=== PATIENT | male | born 1955 | race Caucasian/White ===

== ENCOUNTER → 2016-08-08 | Outpatient (CLI) | payer MEDICARE ==
--- NOTE | 2016-08-09 11:05 | XR ---
Bilateral hips, left femur HISTORY: Hip pain and femur pain 2 views of the hips are submitted on 4 images with 2 views of the left femur on 4 images Correlation to left hip 17 May 2011 Remodeling, marginal spurring and joint space loss present in the right hip. Alignment is maintained. Bone mineralization within normal limits. Surgical clips present in the right groin. Left hip shows postoperative change status post left hip arthroplasty. Iliac stent is noted on the left. No evidenc e of subsidence, arthroplasty loosening is not evident, appearance is stable accounting for differenc es in technique. No evident fracture or dislocation. Left femur is otherwise within normal limits. Mi ld joint space loss in the medial knee compartment. IMPRESSION: No acute fracture or dislocation. Osteoarthritis.
== END | disposition home or self-care (01) ==
LOC: RADXRYALE 15:33
PROVIDERS: ATTEND Nurse Practitioner Family
DX: M16.0 Bilateral primary osteoarthritis of hip (principal)
CPT/HCPCS: 73521

== ENCOUNTER 2017-11-15 20:26 | Emergency (ER) | payer MEDICARE ==
[2017-11-15] MEDS ORDERED: SODIUM CHLORIDE 0.9% 1,000 ML IV STA (21:45)
[2017-11-15] MEDS ORDERED: SODIUM CHLORIDE 0.9% 500 ML IV STA (21:45)
--- NOTE | 2017-11-15 21:48 | ED ---
Male Urogenital HPI - General Chief complaint: Urogenital Stated complaint: Male Time Seen by Provider: 11/15/17 21:20 Source: patient, family, RN notes reviewed Mode of arrival: ambulatory Limitations: no limitations - History of Present Illness Initial comments: This is a 62-year-old male who presents with complaints of hematuria today states he has some dysuria with it initially started 2 days ago he was started on Cipro yesterday and one dose so far. Today he had a lot of bleeding gets urgency. Complaints of right groin pain and suprapubic area discomfort. He has no prior history kidney stones or bladder issues no risk factors for STDs. He is on Coumadin he was told was decreased dose down to 3 mg after starting Cipro. No fevers chills or sweats no other complaints at this time MD Complaint: other - Related Data Home Medications Medication Instructions Recorded Confirmed Atorvastatin [Lipitor] 80 mg PO HS 01/09/14 11/15/17 Celecoxib [CeleBREX] 200 mg PO QAM 01/09/14 11/15/17 Losartan [Cozaar] 50 mg PO QAM 01/09/14 11/15/17 Pregabalin [Lyrica] 300 mg PO BID 01/09/14 11/15/17 Topiramate [Topamax] 25 mg PO BID 01/09/14 11/15/17 Warfarin Sodium [Coumadin] 3 mg PO HS 01/09/14 11/15/17 metFORMIN HCL [Glucophage] 500 mg PO BID 01/09/14 11/15/17 oxyCODONE HCL/ACETAMINOPHEN 1 tab PO Q6HR PRN 01/09/14 11/15/17 [Percocet 10-325 mg] Ciprofloxacin HCl [Cipro] 250 mg PO BID 11/15/17 11/15/17 Colace 50mg 50 mg PO DAILY 11/15/17 11/15/17 Fluticasone/Umeclidin/Vilanter 1 puff INHALATION RT-DAILY 11/15/17 11/15/17 [Trelegy Ellipta 100-62.5-25] Insulin Aspart [NovoLOG See Protocol SQ AC-BRKFST 11/15/17 11/15/17 (formulary)] Insulin Degludec [Tresiba 68 unit SQ HS 11/15/17 11/15/17 Flextouch U-200] Lisinopril [Zestril] 20 mg PO DAILY 11/15/17 11/15/17 Morphine Sulfate [Ms Contin] 30 mg PO Q12H 11/15/17 11/15/17 Multivitamins, Thera [Multivitamin 1 tab PO DAILY 11/15/17 11/15/17 (formulary)] Nortriptyline [Pamelor] 50 mg PO HS 11/15/17 11/15/17 Omeprazole [PriLOSEC] 20 mg PO DAILY 11/15/17 11/15/17 Previous Rx's Medication Instructions Recorded Phenazopyridine HCl [Pyridium] 100 mg PO TID #10 tab 11/15/17 Allergies Allergy/AdvReac Type Severity Reaction Status Date / Time No Known Allergies Allergy Verified 11/15/17 21:54 Review of Systems ROS Statement: Those systems with pertinent positive or pertinent negative responses have been documented in the HPI. ROS Other: All systems not noted in ROS Statement are negative. Past Medical History Past Medical History: Asthma, COPD, CVA/TIA, Diabetes Mellitus, Deep Vein Thrombosis (DVT), GERD/Reflux, Hyperlipidemia, Hypertension, Neurologic Disorder , Osteoarthritis (OA), Pneumonia, Pulmonary Embolus (PE) Additional Past Medical History / Comment(s): MIGRAINES. " ANITICOAGULANT LUPUS ". PNEUMOTHRORAX. PERIPHERAL EDEMA. History of Any Multi-Drug Resistant Organisms: None Reported Past Surgical History: Adenoidectomy, Appendectomy, Tonsillectomy Additional Past Surgical History / Comment(s): HAILE FILTER . VEIN STRIPPING. STENTS IN "PELVIC AREA" NOVEMBER 2004. Past Anesthesia/Blood Transfusion Reactions: No Reported Reaction Smoking Status: Current every day smoker General Exam - General Exam Comments Initial Comments: This is a well-developed well-nourished awake alert oriented times 3 male Limitations: no limitations General appearance: alert, in no apparent distress Head exam: Present: atraumatic, normocephalic, normal inspection Eye exam: Present: normal appearance, PERRL, EOMI. Absent: scleral icterus, conjunctival injection, periorbital swelling ENT exam: Present: normal exam, mucous membranes moist Neck exam: Present: normal inspection. Absent: tenderness, meningismus, lymphadenopathy Respiratory exam: Present: normal lung sounds bilaterally. Absent: respiratory distress, wheezes, rales, rhonchi, stridor Cardiovascular Exam: Present: regular rate, normal rhythm, normal heart sounds. Absent: systolic murmur, diastolic murmur, rubs, gallop, clicks GI/Abdominal exam: Present: soft, tenderness (Mild suprapubic tenderness to palpation no guarding no masses or bruits), normal bowel sounds. Absent: distended, guarding, rebound, rigid Rectal exam: Present: deferred exam: Present: other (Bloody urine noted in the patient's underwear he did have a pad.). Absent: testicular tenderness Extremities exam: Present: full ROM, normal capillary refill, other (Stasis dermatitis). Absent: tenderness, pedal edema, joint swelling, calf tenderness Back exam: Present: normal inspection Neurological exam: Present: alert, oriented X3, CN II-XII intact Psychiatric exam: Present: normal affect, normal mood Skin exam: Present: warm, dry, intact, normal color. Absent: rash Course Vital Signs 11/15/17 11/15/17 20:33 22:13 Temperature 97.6 F 98.2 F Pulse Rate 88 75 Respiratory 24 20 Rate Blood Pressure 146/89 131/73 O2 Sat by Pulse 98 97 Oximetry Medical Decision Making - Medical Decision Making I did discuss findings the patient has . Patient be discharged he has seen urology in the past she will follow-up he will continue with his antibiotic is a follow-up with his doctor tomorrow as planned fluids will be continued he will go on a trial Pyridium as he does have some dysuria with this. - Lab Data Result diagrams: 11/15/17 21:49 11/15/17 21:49 Lab Results 11/15/17 11/15/17 11/15/17 Range/Units 21:49 21:49 21:49 WBC 12.2 H (3.8-10.6) k/uL RBC 4.67 (4.30-5.90) m/uL Hgb 14.5 (13.0-17.5) gm/dL Hct 43.6 (39.0-53.0) % MCV 93.5 (80.0-100.0) fL MCH 31.2 (25.0-35.0) pg MCHC 33.3 (31.0-37.0) g/dL RDW 14.2 (11.5-15.5) % Plt Count 202 (150-450) k/uL Neutrophils % 73 % Lymphocytes % 19 % Monocytes % 5 % Eosinophils % 2 % Basophils % 0 % Neutrophils # 8.9 H (1.3-7.7) k/uL Lymphocytes # 2.3 (1.0-4.8) k/uL Monocytes # 0.6 (0-1.0) k/uL Eosinophils # 0.2 (0-0.7) k/uL Basophils # 0.0 (0-0.2) k/uL PT 16.0 H (9.0-12.0) sec INR 1.7 H (<1.2) Sodium 141 (137-145) mmol/L Potassium 4.2 (3.5-5.1) mmol/L Chloride 106 (98-107) mmol/L Carbon Dioxide 24 (22-30) mmol/L Anion Gap 11 mmol/L BUN 23 H (9-20) mg/dL Creatinine 0.78 (0.66-1.25) mg/dL Est GFR (CKD-EPI)AfAm >90 (>60 ml/min/1.73 sqM) Est GFR (CKD-EPI)NonAf >90 (>60 ml/min/1.73 sqM) Glucose 156 H (74-99) mg/dL Calcium 8.6 (8.4-10.2) mg/dL Magnesium 2.0 (1.6-2.3) mg/dL Total Bilirubin 0.5 (0.2-1.3) mg/dL AST 13 L (17-59) U/L ALT 20 L (21-72) U/L Alkaline Phosphatase 91 (38-126) U/L Total Protein 6.1 L (6.3-8.2) g/dL Albumin 3.4 L (3.5-5.0) g/dL Urine Color Urine Appearance (Clear) Urine pH (5.0-8.0) Ur Specific [place] (1.001-1.035) Urine Protein (Negative) Urine Glucose (UA) (Negative) Urine Ketones (Negative) Urine Blood (Negative) Urine Nitrite (Negative) Urine Bilirubin (Negative) Urine Urobilinogen (<2.0) mg/dL Ur Leukocyte Esterase (Negative) Urine RBC (0-5) /hpf Urine WBC (0-5) /hpf 11/15/17 Range/Units 22:29 WBC (3.8-10.6) k/uL RBC (4.30-5.90) m/uL Hgb (13.0-17.5) gm/dL Hct (39.0-53.0) % MCV (80.0-100.0) fL MCH (25.0-35.0) pg MCHC (31.0-37.0) g/dL RDW (11.5-15.5) % Plt Count (150-450) k/uL Neutrophils % % Lymphocytes % % Monocytes % % Eosinophils % % Basophils % % Neutrophils # (1.3-7.7) k/uL Lymphocytes # (1.0-4.8) k/uL Monocytes # (0-1.0) k/uL Eosinophils # (0-0.7) k/uL Basophils # (0-0.2) k/uL PT (9.0-12.0) sec INR (<1.2) Sodium (137-145) mmol/L Potassium (3.5-5.1) mmol/L Chloride (98-107) mmol/L Carbon Dioxide (22-30) mmol/L Anion Gap mmol/L BUN (9-20) mg/dL Creatinine (0.66-1.25) mg/dL Est GFR (CKD-EPI)AfAm (>60 ml/min/1.73 sqM) Est GFR (CKD-EPI)NonAf (>60 ml/min/1.73 sqM) Glucose (74-99) mg/dL Calcium (8.4-10.2) mg/dL Magnesium (1.6-2.3) mg/dL Total Bilirubin (0.2-1.3) mg/dL AST (17-59) U/L ALT (21-72) U/L Alkaline Phosphatase (38-126) U/L Total Protein (6.3-8.2) g/dL Albumin (3.5-5.0) g/dL Urine Color Light Red Urine Appearance Clear (Clear) Urine pH 6.5 (5.0-8.0) Ur Specific [place] 1.021 (1.001-1.035) Urine Protein 1+ H (Negative) Urine Glucose (UA) Negative (Negative) Urine Ketones Negative (Negative) Urine Blood Large H (Negative) Urine Nitrite Negative (Negative) Urine Bilirubin Negative (Negative) Urine Urobilinogen 3.0 (<2.0) mg/dL Ur Leukocyte Esterase Small H (Negative) Urine RBC >182 H (0-5) /hpf Urine WBC 8 H (0-5) /hpf - Radiology Data Radiology results: report reviewed (I did review the imaging and report no evidence of masses or kidney stones), image reviewed Disposition Clinical Impression: Hematuria, Dysuria, Urinary tract infection Disposition: HOME SELF-CARE Condition: Good Instructions: Urinary Tract Infection in Men (ED), Hematuria (ED) Additional Instructions: Keep your follow-up appointment tomorrow. A trial of Pyridium for the painful urination. Prescriptions: Phenazopyridine HCl [Pyridium] 100 mg PO TID #10 tab Is patient prescribed a controlled substance at d/c from ED?: No Referrals: Kristin Emery DO [Primary Care Provider] - 1-2 days
[2017-11-15] MEDS ORDERED: ACETAMINOPHEN TAB 500 MG TAB PO STA (21:49)
[2017-11-15 21:58] LABS: Basophils % (A) 0 %; Eosinophils # (A) 0.2 k/uL (0-0.7); Eosinophils % (A) 2 %; HCT 43.6 % (39.0-53.0); HGB 14.5 gm/dL (13.0-17.5); Lymphocytes # (A) 2.3 k/uL (1.0-4.8); Lymphocytes % (A) 19 %; MCH 31.2 pg (25.0-35.0); MCHC 33.3 g/dL (31.0-37.0); MCV 93.5 fL (80.0-100.0); Mean Platelet Volume 8.3; Monocytes # (A) 0.6 k/uL (0-1.0); Monocytes % (A) 5 %; Neutrophils # (A) 8.9 k/uL (1.3-7.7); Neutrophils % (A) 73 %; Platelet Count 202 k/uL (150-450); RBC 4.67 m/uL (4.30-5.90); RDW 14.2 % (11.5-15.5); WBC 12.2 k/uL (3.8-10.6)
[2017-11-15 22:12] LABS: ALT 20 U/L (21-72); AST 13 U/L (17-59); Albumin 3.4 g/dL (3.5-5.0); Alkaline Phosphatase 91 U/L (38-126); Anion Gap 11 mmol/L; Blood Urea Nitrogen 23 mg/dL (9-20); Calcium 8.6 mg/dL (8.4-10.2); Carbon Dioxide 24 mmol/L (22-30); Chloride 106 mmol/L (98-107); Glucose 156 mg/dL (74-99); Potassium 4.2 mmol/L (3.5-5.1); Sodium 141 mmol/L (137-145); Total Bilirubin 0.5 mg/dL (0.2-1.3); Total Protein 6.1 g/dL (6.3-8.2)
[2017-11-15 22:14] VITALS: RESP 20
[2017-11-15 22:14] LABS: INR 1.7 (<1.2)
--- NOTE | 2017-11-15 22:35 | CT ---
EXAMINATION TYPE: CT abdomen pelvis wo con DATE OF EXAM: 11/15/2017 COMPARISON: NONE HISTORY: Gross hematuria. Recent UTI diagnosis. CT DLP: 2223.4 mGycm Automated exposure control for dose reduction was used. TECHNIQUE: Helical acquisition of images was performed from the lung bases through the pelvis. FINDINGS: There are some emphysematous changes at the lung bases. There is reticular infiltrate at the lung bas es. There is no pleural effusion. There is no pericardial effusion. Liver shows no focal defect. There is probably a 1 cm cholesterol gallstone at the tip of the gallbla dder. Spleen and pancreas appear normal. Bile ducts are not dilated. There is no adrenal mass. Kidneys have normal size and contour. There is no hydronephrosis. There is no retroperitoneal adenopathy. Abdominal aorta is atheromatous. There is no hydronephrosis. There is no evidence of a renal mass. There is inferior vena cava filter noted. There is iliac artery bypass graft on the left side. I see no intestinal wall thickening. There are n o dilated loops. There is a left hip prosthesis. Bladder distends smoothly. There is no evidence of a pelvic mass. Appendix is not definitely seen. There is no sign of appendicitis. I see no bony destru ctive process. There is no ascites. There is no sign of free air. There are spondylotic changes in th e lumbar spine. IMPRESSION: ATHEROSCLEROTIC VASCULAR DISEASE. NO EVIDENCE OF RENAL STONE OR OBSTRUCTION. I DO NOT SEE A CAUSE FOR HEMATURIA. EMPHYSEMA AND PULMONARY FIBROTIC CHANGES.
[2017-11-15 22:41] LABS: Appearance,Urine Clear (Clear); Bilirubin,Urine Negative (Negative); Blood,Urine Large (Negative); Color,Urine Light Red; Glucose,Urine (UA) Negative (Negative); Ketones,Urine Negative (Negative); Leukocyte Esterase,Urine Small (Negative); Nitrite,Urine Negative (Negative); PH, Urine 6.5 (5.0-8.0); Protein,Urine 1+ (Negative); RBC,Urine >182 /hpf (0-5); Specific Gravity,Urine 1.021 (1.001-1.035); WBC,Urine 8 /hpf (0-5)
[2017-11-15] MEDS ORDERED: PHENAZOPYRIDINE 200 MG TAB PO STA (23:14)
[2017-11-15 23:44] VITALS: BP 141/64; PULSE 69; TEMP 97.9
== END 2017-11-15 23:44 | disposition home or self-care (01) ==
LOC: EC 20:26
DX: N39.0 Urinary tract infection, site not specified (principal); J44.9 Chronic obstructive pulmonary disease, unspecified; K21.9 Gastro-esophageal reflux disease without esophagitis; E78.5 Hyperlipidemia, unspecified; I10 Essential (primary) hypertension; M19.90 Unspecified osteoarthritis, unspecified site; G43.909 Migraine, unspecified, not intractable, without status migrainosus; F17.200 Nicotine dependence, unspecified, uncomplicated; Z79.4 Long term (current) use of insulin; Z79.891 Long term (current) use of opiate analgesic; Z79.899 Other long term (current) drug therapy
CPT/HCPCS: 36415; 74176; 80053; 81001; 83735; 85025; 85610; 96360; 99284

== ENCOUNTER 2018-05-10 21:11 | Observation (INO) | payer MEDICARE ==
--- NOTE | 2018-05-10 21:16 | ED ---
SOB HPI - General Stated Complaint: ARACELIS Time Seen by Provider: 05/10/18 21:15 - History of Present Illness Initial Comments: Checo is a 63-year-old obese male with extensive past medical history most concerning for COPD and peripheral vascular disease. Patient presents the ED today for evaluation of chest discomfort and difficulty breathing. Patient reports he felt well throughout the day today, he states that this evening he began to feel that he couldn't catch his breath and pressure on his chest. He denies any palpitations or diaphoresis with this. Patient reports that while at home he began to feel more short of breath, he did breathing treatment with only minimal improvement in his symptoms. He then told his that he was having tightness in his chest and trouble breathing, she called the ambulance to get his wishes because she was worried about him. EMS arrived, the patient was tachypneic having trouble breathing and complaining of chest pressure. He was treated with 2 additional breathing treatments as well as IV Solu-Medrol in route to the hospital. Upon arrival patient reports that his tightness around his chest and trouble breathing has resolved completely. Patient does report a history of COPD, he does still smoke cigarettes. He denies any cardiac history though he does have a history of peripheral vascular disease requiring stenting in his femoral arteries, as well as a history of DVTs , CVA and TIA in the past. Patient also incidentally reports that on Monday he was walking outside when he injured his leg on a piece of angle iron. He reports that his has been cleansing the wound for him. Patient has no sensation in his legs and complains of no pain. He expresses concern that he has not had a tetanus shot in over 10 years. Request a tetanus vaccination today. - Related Data Home Medications Medication Instructions Recorded Confirmed Atorvastatin [Lipitor] 80 mg PO HS 01/09/14 05/10/18 Celecoxib [CeleBREX] 200 mg PO QAM 01/09/14 05/10/18 Losartan [Cozaar] 50 mg PO QAM 01/09/14 05/10/18 Pregabalin [Lyrica] 300 mg PO BID 01/09/14 05/10/18 Topiramate [Topamax] 25 mg PO BID 01/09/14 05/10/18 Warfarin Sodium [Coumadin] 6 mg PO [id number] 01/09/14 05/10/18 metFORMIN HCL [Glucophage] 500 mg PO BID 01/09/14 05/10/18 oxyCODONE HCL/ACETAMINOPHEN 1 tab PO Q6HR PRN 01/09/14 05/10/18 [Percocet 10-325 mg] Insulin Aspart [NovoLOG See Protocol SQ AC-BRKFST 11/15/17 05/10/18 (formulary)] Insulin Degludec [Tresiba 65 unit SQ HS 11/15/17 05/10/18 Flextouch U-200] Lisinopril [Zestril] 20 mg PO DAILY 11/15/17 05/10/18 Morphine Sulfate [Ms Contin] 30 mg PO TID 11/15/17 05/10/18 Multivitamins, Thera [Multivitamin 1 tab PO DAILY 11/15/17 05/10/18 (formulary)] Nortriptyline [Pamelor] 50 mg PO HS 11/15/17 05/10/18 Inhaler Unknown 1 puff INHALATION RT-DAILY 05/10/18 05/10/18 Warfarin Sodium 9 mg PO AQUINO 05/10/18 05/10/18 Previous Rx's Medication Instructions Recorded Phenazopyridine HCl [Pyridium] 100 mg PO TID #10 tab 11/15/17 Allergies Allergy/AdvReac Type Severity Reaction Status Date / Time No Known Allergies Allergy Verified 05/10/18 21:33 Review of Systems ROS Statement: Those systems with pertinent positive or pertinent negative responses have been documented in the HPI. ROS Other: All systems not noted in ROS Statement are negative. Constitutional: Denies: fever ENT: Denies: throat pain Respiratory: Reports: cough, dyspnea Cardiovascular: Reports: chest pain, dyspnea on exertion, edema Endocrine: Denies: fatigue Gastrointestinal: Denies: abdominal pain, nausea, vomiting Genitourinary: Denies: dysuria Musculoskeletal: Reports: back pain (chronic) Skin: Reports: change in color (bilateral lower extremity - chronic), other ( 2cm laceration left lateral calf) Neurological: Denies: headache, weakness Psychiatric: Denies: anxiety, depression Hematological/Lymphatic: Denies: easy bleeding Past Medical History Past Medical History: Asthma, COPD, CVA/TIA, Diabetes Mellitus, Deep Vein Thrombosis (DVT), GERD/Reflux, Hyperlipidemia, Hypertension, Neurologic Disorder , Osteoarthritis (OA), Pneumonia, Pulmonary Embolus (PE) Additional Past Medical History / Comment(s): MIGRAINES. " ANITICOAGULANT LUPUS ". PNEUMOTHRORAX. PERIPHERAL EDEMA. History of Any Multi-Drug Resistant Organisms: None Reported Past Surgical History: Adenoidectomy, Appendectomy, Tonsillectomy Additional Past Surgical History / Comment(s): HAILE FILTER . VEIN STRIPPING. STENTS IN "PELVIC AREA" NOVEMBER 2004. Past Anesthesia/Blood Transfusion Reactions: No Reported Reaction Smoking Status: Current every day smoker General Exam - General Exam Comments Initial Comments: GENERAL: Obese 63-year-old male, appears older than stated age Tachypneic, in mild respiratory distress HENT: Normocephalic, Atraumatic. Neck is soft and supple. No significant lymphadenopathy is noted. Oropharynx is clear. Moist mucous membranes. Neck has full range of motion without eliciting any pain. EYES: The sclera were anicteric and conjunctiva were pink and moist. Extraocular movements were intact and pupils were equal round and reactive to light. Eyelids were unremarkable. PULMONARY: Tachypnea, mild expiratory wheezing, crackles at bilateral bases CARDIOVASCULAR: There is a regular rate and rhythm without any murmurs gallops or rubs. Strong radial pulses bilaterally, chronic venous stasis of the bilateral lower extremities ABDOMEN: Obese, Soft and nontender with normal bowel sounds. SKIN: Skin changes of the bilateral lower extremities consistent with chronic venous stasis and lymphedema. There is a 2 cm laceration to the lateral side of the left calf which is healing well. Skin and nail changes of the hands and the mustache consistent with heavy tobacco abuse NEUROLOGIC: Patient is alert and oriented x3. Cranial nerves II through XII are grossly intact. Normal speech, volume and content. Symmetrical smile. MUSCULOSKELETAL: Normal extremities with adequate strength and full range of motion. LYMPHATICS: No significant lymphadenopathy is noted PSYCHIATRIC: Normal psychiatric evaluation. Limitations: no limitations Course Vital Signs 05/10/18 05/10/18 21:28 21:37 Temperature 98.2 F Pulse Rate 65 Respiratory 18 18 Rate Blood Pressure 162/91 O2 Sat by Pulse 96 Oximetry Medical Decision Making - Medical Decision Making The patient was seen and evaluated upon arrival to the emergency department Patient presenting with shortness of breath and tightness in his chest Symptoms resolved after a triple DuoNeb therapy and IV steroids Patient multiple cardiac risk factors, aspirin and EKG were ordered Nature and not ordered, patient not experiencing a tightness in his chest upon evaluation EKG obtained at 2133, rate is 72, rhythm is sinus, normal axis, there is an incomplete right bundle-branch block, ME is prolonged at 204, QRS is 108, QTC is 459. There are no acute ST elevations or depressions and no evidence of acute ischemia or infarction. Chest x-ray with infiltrates concerning for pneumonia Patient continues to be tachypneic with oxygen saturations in the low 90s on supplemental oxygen Considering the patient's underlying COPD, persistent tobacco abuse, tachypnea do feel that he warrants admission for COPD exacerbation and pneumonia. Edition the patient did have tightness in his chest, his initial troponin is negative other recommend we continue trending this. This plan was discussed with patient who is agreeable. Admission orders were placed. - Lab Data Result diagrams: 05/10/18 22:01 05/10/18 22: Lab Results 05/10/18 05/10/18 05/10/18 Range/Units 22: 22: 22: WBC 9.0 (3.8-10.6) k/uL RBC 4.43 (4.30-5.90) m/uL Hgb 13.8 (13.0-17.5) gm/dL Hct 42.2 (39.0-53.0) % MCV 95.1 (80.0-100.0) fL MCH 31.2 (25.0-35.0) pg MCHC 32.8 (31.0-37.0) g/dL RDW 14.0 (11.5-15.5) % Plt Count 192 (150-450) k/uL Neutrophils % 79 % Lymphocytes % 16 % Monocytes % 3 % Eosinophils % 1 % Basophils % 0 % Neutrophils # 7.0 (1.3-7.7) k/uL Lymphocytes # 1.4 (1.0-4.8) k/uL Monocytes # 0.3 (0-1.0) k/uL Eosinophils # 0.1 (0-0.7) k/uL Basophils # 0.0 (0-0.2) k/uL PT (9.0-12.0) sec INR (<1.2) APTT (22.0-30.0) sec Sodium 141 (137-145) mmol/L Potassium 4.2 (3.5-5.1) mmol/L Chloride 115 H (98-107) mmol/L Carbon Dioxide 23 (22-30) mmol/L Anion Gap 3 mmol/L BUN 20 (9-20) mg/dL Creatinine 0.83 (0.66-1.25) mg/dL Est GFR (CKD-EPI)AfAm >90 (>60 ml/min/1.73 sqM) Est GFR (CKD-EPI)NonAf >90 (>60 ml/min/1.73 sqM) Glucose 162 H (74-99) mg/dL Calcium 7.7 L (8.4-10.2) mg/dL Magnesium 1.9 (1.6-2.3) mg/dL Total Bilirubin 0.4 (0.2-1.3) mg/dL AST 18 (17-59) U/L ALT 19 L (21-72) U/L Alkaline Phosphatase 80 (38-126) U/L Total Creatine Kinase 89 (55-170) U/L CK-MB (CK-2) 1.4 (0.0-2.4) ng/mL CK-MB (CK-2) Rel Index 1.6 Troponin I <0.012 (0.000-0.034) ng/mL NT-Pro-B Natriuret Pep pg/mL Total Protein 6.2 L (6.3-8.2) g/dL Albumin 3.1 L (3.5-5.0) g/dL 05/10/18 05/10/18 Range/Units 22:01 22:01 WBC (3.8-10.6) k/uL RBC (4.30-5.90) m/uL Hgb (13.0-17.5) gm/dL Hct (39.0-53.0) % MCV (80.0-100.0) fL MCH (25.0-35.0) pg MCHC (31.0-37.0) g/dL RDW (11.5-15.5) % Plt Count (150-450) k/uL Neutrophils % % Lymphocytes % % Monocytes % % Eosinophils % % Basophils % % Neutrophils # (1.3-7.7) k/uL Lymphocytes # (1.0-4.8) k/uL Monocytes # (0-1.0) k/uL Eosinophils # (0-0.7) k/uL Basophils # (0-0.2) k/uL PT 27.9 H (9.0-12.0) sec INR 3.1 H (<1.2) APTT 33.6 H (22.0-30.0) sec Sodium (137-145) mmol/L Potassium (3.5-5.1) mmol/L Chloride (98-107) mmol/L Carbon Dioxide (22-30) mmol/L Anion Gap mmol/L BUN (9-20) mg/dL Creatinine (0.66-1.25) mg/dL Est GFR (CKD-EPI)AfAm (>60 ml/min/1.73 sqM) Est GFR (CKD-EPI)NonAf (>60 ml/min/1.73 sqM) Glucose (74-99) mg/dL Calcium (8.4-10.2) mg/dL Magnesium (1.6-2.3) mg/dL Total Bilirubin (0.2-1.3) mg/dL AST (17-59) U/L ALT (21-72) U/L Alkaline Phosphatase (38-126) U/L Total Creatine Kinase (55-170) U/L CK-MB (CK-2) (0.0-2.4) ng/mL CK-MB (CK-2) Rel Index Troponin I (0.000-0.034) ng/mL NT-Pro-B Natriuret Pep 193 pg/mL Total Protein (6.3-8.2) g/dL Albumin (3.5-5.0) g/dL Disposition Clinical Impression: COPD with exacerbation, Pneumonia Disposition: ADMITTED IP TO THIS HOSP Referrals: Kristin Emery DO [Primary Care Provider] - 1-2 days
[2018-05-10] MEDS ORDERED: ASPIRIN 81 MG PO STA (21:49)
[2018-05-10 22:26] LABS: INR 3.1 (<1.2); Partial Thromboplastin Time 33.6 sec (22.0-30.0); Prothrombin Time 27.9 sec (9.0-12.0)
--- NOTE | 2018-05-10 22:28 | XR ---
EXAMINATION TYPE: XR chest 2V DATE OF EXAM: 05/10/2018 COMPARISON: 10/30/2013 HISTORY: Difficulty breathing TECHNIQUE: Frontal and lateral views of the chest are obtained. FINDINGS: Heart is probably enlarged. There is mild pulmonary interstitial edema. There is no pleura l effusion. There are chest leads. IMPRESSION: Pulmonary interstitial mild edema compared to old exam. This is nonspecific. I would consider acute m ild heart failure and interstitial pneumonia.
[2018-05-10 22:31] LABS: Basophils % (A) 0 %; Eosinophils # (A) 0.1 k/uL (0-0.7); Eosinophils % (A) 1 %; HCT 42.2 % (39.0-53.0); HGB 13.8 gm/dL (13.0-17.5); Lymphocytes # (A) 1.4 k/uL (1.0-4.8); Lymphocytes % (A) 16 %; MCH 31.2 pg (25.0-35.0); MCHC 32.8 g/dL (31.0-37.0); MCV 95.1 fL (80.0-100.0); Mean Platelet Volume 7.3; Monocytes # (A) 0.3 k/uL (0-1.0); Monocytes % (A) 3 %; Neutrophils % (A) 79 %; Platelet Count 192 k/uL (150-450); RBC 4.43 m/uL (4.30-5.90)
[2018-05-10 22:33] LABS: ALT 19 U/L (21-72); AST 18 U/L (17-59); Albumin 3.1 g/dL (3.5-5.0); Alkaline Phosphatase 80 U/L (38-126); Anion Gap 3 mmol/L; Blood Urea Nitrogen 20 mg/dL (9-20); Calcium 7.7 mg/dL (8.4-10.2); Carbon Dioxide 23 mmol/L (22-30); Chloride 115 mmol/L (98-107); Glucose 162 mg/dL (74-99); Magnesium 1.9 mg/dL (1.6-2.3); Sodium 141 mmol/L (137-145); Total Bilirubin 0.4 mg/dL (0.2-1.3); Total Protein 6.2 g/dL (6.3-8.2)
[2018-05-10 22:37] LABS: Potassium 4.2 mmol/L (3.5-5.1)
[2018-05-10 22:45] LABS: Creatine Kinase 89 U/L (55-170)
[2018-05-10 22:58] LABS: Creatine Kinase MB 1.4 ng/mL (0.0-2.4); Troponin I <0.012 ng/mL (0.000-0.034)
[2018-05-10] MEDS ORDERED: PNEUMONIA PROTOCOL UTILIZED 1 EACH MISC PO PRN (23:12)
[2018-05-10] MEDS ORDERED: IPRATROPIUM-ALBUTEROL 3 ML NEB INHALATION PRN (23:13)
[2018-05-10] MEDS ORDERED: NICOTINE 14MG/24HR PATCH TRANSDERM SCH (23:15)
[2018-05-10] MEDS ORDERED: DIPH,PERTUS(ACELL)TETVAC-LF 0.5 ML VIAL IM ONE (23:19)
[2018-05-11 01:33] VITALS: BMI 37.1
[2018-05-11] MEDS ORDERED: INSULIN ASPART 100 UNIT/ML 1 ML 10 ML VIAL SQ ONE (01:47)
[2018-05-11] MEDS: amLODIPine 5 MG TAB PO SCH ×2 (02:26→09:23)
[2018-05-11] MEDS: oxyCODONE-APAP 10-325MG 1 EACH TAB PO PRN ×2 (02:26→09:00)
[2018-05-11 02:27] LABS: Glucose,Whole Blood 214 mg/dL (75-99)
[2018-05-11] MEDS ORDERED: MORPHINE SULFATE ER 30 MG TABLET PO SCH (06:00)
[2018-05-11] MEDS ORDERED: INSULIN ASPART 100 UNIT/ML 1 ML 10 ML VIAL SQ SCH (07:30)
[2018-05-11 07:33] LABS: Glucose,Whole Blood 195 mg/dL (75-99)
[2018-05-11 08:01] VITALS: BP 114/77; RESP 16; TEMP 97.9
[2018-05-11 08:14] VITALS: PULSE 78
[2018-05-11] MEDS ORDERED: PREGABALIN 100 MG CAP PO SCH (09:00)
[2018-05-11] MEDS ORDERED: LOSARTAN 50 MG TAB PO SCH (09:00)
[2018-05-11] MEDS ORDERED: LISINOPRIL 20 MG TAB PO SCH (09:00)
[2018-05-11] MEDS ORDERED: predniSONE 20 MG TAB PO SCH (09:00)
[2018-05-11] MEDS ORDERED: PHENAZOPYRIDINE 100 MG TAB PO SCH (09:00)
[2018-05-11] MEDS ORDERED: TOPIRAMATE 25 MG TAB PO SCH (09:00)
[2018-05-11] MEDS ORDERED: metFORMIN 500 MG TAB PO SCH (09:00)
[2018-05-11 11:26] LABS: INR 2.2 (<1.2); Prothrombin Time 19.5 sec (9.0-12.0)
[2018-05-11] MEDS ORDERED: MULTIVITAMINS, THERA 1 EACH TAB PO SCH (12:00)
[2018-05-11 12:24] LABS: Glucose,Whole Blood 215 mg/dL (75-99)
--- NOTE | 2018-05-11 12:25 | P.DS ---
Providers Date of admission: 05/10/18 23:19 Attending physician: Shadia Alvarez Primary care physician: Kristin Emery [facility] Course: Please refer to my HPI Plan - Discharge Summary Discharge Rx Participant: Yes New Discharge Prescriptions: New Budesonide-Formot 160-4.5 Mcg [Symbicort 160-4.5 Mcg Inhaler] 2 puff INHALATION BID #1 inhaler predniSONE 10 mg PO DAILY #30 tab Azithromycin [Zithromax Tri-Anoop] 500 mg PO DAILY 5 Days #3 tab Discontinued Losartan [Cozaar] 50 mg PO QAM No Action metFORMIN HCL [Glucophage] 500 mg PO BID Pregabalin [Lyrica] 300 mg PO BID Atorvastatin [Lipitor] 80 mg PO HS oxyCODONE HCL/ACETAMINOPHEN [Percocet 10-325 mg] 1 tab PO Q6HR PRN PRN Reason: Pain Topiramate [Topamax] 25 mg PO BID Celecoxib [CeleBREX] 200 mg PO QAM Warfarin Sodium [Coumadin] 6 mg PO MOTUWETHFRSA Insulin Aspart [NovoLOG (formulary)] See Protocol SQ AC-BRKFST Morphine Sulfate [Ms Contin] 30 mg PO TID Lisinopril [Zestril] 20 mg PO DAILY Nortriptyline [Pamelor] 50 mg PO HS Multivitamins, Thera [Multivitamin (formulary)] 1 tab PO DAILY Insulin Degludec [Tresiba Flextouch U-200] 65 unit SQ HS Phenazopyridine HCl [Pyridium] 100 mg PO TID #10 tab Inhaler Unknown 1 puff INHALATION RT-DAILY Warfarin Sodium 9 mg PO AQUINO Discharge Medication List Atorvastatin [Lipitor] 80 mg PO HS 01/09/14 [History] Celecoxib [CeleBREX] 200 mg PO QAM 01/09/14 [History] Pregabalin [Lyrica] 300 mg PO BID 01/09/14 [History] Topiramate [Topamax] 25 mg PO BID 01/09/14 [History] Warfarin Sodium [Coumadin] 6 mg PO MOTUWETHFRSA 01/09/14 [History] metFORMIN HCL [Glucophage] 500 mg PO BID 01/09/14 [History] oxyCODONE HCL/ACETAMINOPHEN [Percocet 10-325 mg] 1 tab PO Q6HR PRN 01/09/14 [ History] Insulin Aspart [NovoLOG (formulary)] See Protocol SQ AC-BRKFST 11/15/17 [History ] Insulin Degludec [Tresiba Flextouch U-200] 65 unit SQ HS 11/15/17 [History] Lisinopril [Zestril] 20 mg PO DAILY 11/15/17 [History] Morphine Sulfate [Ms Contin] 30 mg PO TID 11/15/17 [History] Multivitamins, Thera [Multivitamin (formulary)] 1 tab PO DAILY 11/15/17 [History ] Nortriptyline [Pamelor] 50 mg PO HS 11/15/17 [History] Phenazopyridine HCl [Pyridium] 100 mg PO TID #10 tab 11/15/17 [Rx] Inhaler Unknown 1 puff INHALATION RT-DAILY 05/10/18 [History] Warfarin Sodium 9 mg PO AQUINO 05/10/18 [History] Azithromycin [Zithromax Tri-Anoop] 500 mg PO DAILY 5 Days #3 tab 05/11/18 [Rx] Budesonide-Formot 160-4.5 Mcg [Symbicort 160-4.5 Mcg Inhaler] 2 puff INHALATION BID #1 inhaler 05/11/18 [Rx] predniSONE 10 mg PO DAILY #30 tab 05/11/18 [Rx] Follow up Appointment(s)/Referral(s): Kristin Emery DO [Primary Care Provider] - 05/16/18 11:40 am Ambulatory/Diagnostic Orders: Prothrombin Time INR [LAB.AMB] Time Frame: 2 Days, Location: None Selected Patient Instructions/Handouts: COPD (Chronic Obstructive Pulmonary Disease) (DC ) Discharge Disposition: HOME SELF-CARE
--- NOTE | 2018-05-11 12:25 | P.HPIM ---
History of Present Illness 63-year-old gentleman history of COPD condition is of breath with significant improved today patient was started on IV steroids. Patient was switched to oral steroids. Patient doesn't have any fever chills doesn't have any leukocytosis is admitted for atypical pneumonia. My suspicion is extremely low for that patient may have mild bronchitis. Chest x-ray is read as possible atypical pneumonia or CHF clinically patient doesn't have CHF BNP is only 196. Patient is morbidly obese, chest x-ray findings are due to soft tissue interference. Patient was never tested for sleep apnea. Patient is comparing of cough without any significant sputum production. Patient is feeling much better doesn't use any onset at home patient does have peripheral vascular disease and significant pedal edema which is chronic and is secondary to vascular insufficiency. Patient used to smoke 3 packs per day lately has been smoking half a pack per day extensive counseling regarding this was provided. Patient will be discharged on weaning dose of steroids inhaled steroids. We'll ambulate the patient make sure his oxygen saturations of vitals are stable before the discharge. Review of Systems REVIEW OF SYSTEMS: CONSTITUTIONAL: No fever, no malaise, no fatigue. HEENT: No recent visual problems or hearing problems. Denied any sore throat. CARDIOVASCULAR: No chest pain, orthopnea, PND, no palpitations, no syncope. PULMONARY: , no hemoptysis. GASTROINTESTINAL: No diarrhea, no nausea, no vomiting, no abdominal pain. Normoactive bowel sounds. NEUROLOGICAL: No headaches, no weakness, no numbness. HEMATOLOGICAL: Denies any bleeding or petechiae. GENITOURINARY: Denies any burning micturition, frequency, or urgency. MUSCULOSKELETAL/RHEUMATOLOGICAL: Denies any joint pain, swelling, or any muscle pain. ENDOCRINE: Denies any polyuria or polydipsia. The rest of the 14-point review of systems is negative. Past Medical History Past Medical History: Asthma, COPD, CVA/TIA, Diabetes Mellitus, Deep Vein Thrombosis (DVT), GERD/Reflux, Hyperlipidemia, Hypertension, Neurologic Disorder , Osteoarthritis (OA), Pneumonia, Pulmonary Embolus (PE) Additional Past Medical History / Comment(s): MIGRAINES. " ANITICOAGULANT LUPUS ". PNEUMOTHRORAX. PERIPHERAL EDEMA. History of Any Multi-Drug Resistant Organisms: None Reported Past Surgical History: Adenoidectomy, Appendectomy, Tonsillectomy Additional Past Surgical History / Comment(s): HAILE FILTER . VEIN STRIPPING. STENTS IN "PELVIC AREA" NOVEMBER 2004. Past Anesthesia/Blood Transfusion Reactions: No Reported Reaction Additional Psychological History / Comment(s): TAKES CYMBALTA FOR CARPAL TUNNEL. Smoking Status: Current every day smoker Past Alcohol Use History: None Reported Past Drug Use History: None Reported - Past Family History Mother Additional Family Medical History / Comment(s): heart disease, peripheral vascular disease. Father Family Medical History: Unable to Obtain Medications and Allergies Home Medications Medication Instructions Recorded Confirmed Type Atorvastatin [Lipitor] 80 mg PO HS 01/09/14 05/10/18 History Celecoxib [CeleBREX] 200 mg PO QAM 01/09/14 05/10/18 History Pregabalin [Lyrica] 300 mg PO BID 01/09/14 05/10/18 History Topiramate [Topamax] 25 mg PO BID 01/09/14 05/10/18 History Warfarin Sodium [Coumadin] 6 mg PO MOTUWETHFRSA 01/09/14 05/10/18 History metFORMIN HCL [Glucophage] 500 mg PO BID 01/09/14 05/10/18 History oxyCODONE HCL/ACETAMINOPHEN 1 tab PO Q6HR PRN 01/09/14 05/10/18 History [Percocet 10-325 mg] Insulin Aspart [NovoLOG See Protocol SQ AC-BRKFST 11/15/17 05/10/18 History (formulary)] Insulin Degludec [Tresiba 65 unit SQ HS 11/15/17 05/10/18 History Flextouch U-200] Lisinopril [Zestril] 20 mg PO DAILY 11/15/17 05/10/18 History Morphine Sulfate [Ms Contin] 30 mg PO TID 11/15/17 05/10/18 History Multivitamins, Thera [Multivitamin 1 tab PO DAILY 11/15/17 05/10/18 History (formulary)] Nortriptyline [Pamelor] 50 mg PO HS 11/15/17 05/10/18 History Phenazopyridine HCl [Pyridium] 100 mg PO TID #10 tab 11/15/17 05/10/18 Rx Inhaler Unknown 1 puff INHALATION RT-DAILY 05/10/18 05/10/18 History Warfarin Sodium 9 mg PO AQUINO 05/10/18 05/10/18 History Azithromycin [Zithromax Tri-Anoop] 500 mg PO DAILY 5 Days #3 tab 05/11/18 Rx Budesonide-Formot 160-4.5 Mcg 2 puff INHALATION BID #1 inhaler 05/11/18 Rx [Symbicort 160-4.5 Mcg Inhaler] Ipratropium Liberty [Atrovent Hfa] 2 puff INHALATION QID #1 inhaler 05/11/18 Rx predniSONE 10 mg PO DAILY #30 tab 05/11/18 Rx Allergies Allergy/AdvReac Type Severity Reaction Status Date / Time No Known Allergies Allergy Verified 05/10/18 21:33 Physical Exam Vitals: Vital Signs Temp Pulse Pulse Resp BP BP Pulse Ox 05/11/18 08:01 78 05/11/18 07:51 76 05/11/18 07:00 97.9 F 55 L 16 114/77 98 05/11/18 06:39 123/86 05/11/18 01:12 98.3 F 59 L 18 145/82 99 05/11/18 00:26 98.3 F 60 20 140/80 98 05/10/18 23:21 98.3 F 71 20 167/97 98 05/10/18 21:37 18 05/10/18 21:28 98.2 F 65 18 162/91 96 Intake and Output 05/10/18 05/11/18 05/11/18 22:59 06:59 14:59 Intake Total 240 Balance 240 Intake: Oral 240 Other: Weight 134.717 kg 134.717 kg PHYSICAL EXAMINATION: GENERAL: The patient is alert and oriented x3, not in any acute distress. Well developed, well nourished. HEENT: Pupils are round and equally reacting to light. EOMI. No scleral icterus. No conjunctival pallor. Normocephalic, atraumatic. No pharyngeal erythema. No thyromegaly. CARDIOVASCULAR: S1 and S2 present. No murmurs, rubs, or gallops. PULMONARY: Decreased air entry into bilateral lung swartz no wheezing or crackles were appreciated ABDOMEN: Soft, nontender, nondistended, normoactive bowel sounds. No palpable organomegaly. MUSCULOSKELETAL: No joint swelling or deformity. EXTREMITIES: No cyanosis, clubbing, she does have a pedal edema bilateral lower extremities more so in the right leg and chronic venous stasis dermatosis of the right leg. NEUROLOGICAL: Gross neurological examination did not reveal any focal deficits. SKIN: No rashes. Results CBC & Chem 7: 05/10/18 22:01 05/10/18 22:01 Labs: Abnormal Lab Results - Last 24 Hours (Table) 05/10/18 05/10/18 05/11/18 Range/Units 22:01 22:01 02:15 PT 27.9 H (9.0-12.0) sec INR 3.1 H (<1.2) APTT 33.6 H (22.0-30.0) sec Chloride 115 H (98-107) mmol/L Glucose 162 H (74-99) mg/dL POC Glucose (mg/dL) 214 H (75-99) mg/dL Calcium 7.7 L (8.4-10.2) mg/dL ALT 19 L (21-72) U/L Total Protein 6.2 L (6.3-8.2) g/dL Albumin 3.1 L (3.5-5.0) g/dL 05/11/18 05/11/18 Range/Units 07:14 10:46 PT 19.5 H (9.0-12.0) sec INR 2.2 H (<1.2) APTT (22.0-30.0) sec Chloride (98-107) mmol/L Glucose (74-99) mg/dL POC Glucose (mg/dL) 195 H (75-99) mg/dL Calcium (8.4-10.2) mg/dL ALT (21-72) U/L Total Protein (6.3-8.2) g/dL Albumin (3.5-5.0) g/dL Thrombosis Risk Factor Assmnt - Choose All That Apply Any of the Below Risk Factors Present?: Yes Each Factor Represents 1 point: Abnormal pulmonary function (COPD), Obesity ( BMI >25), Swollen legs (current) Other Risk Factors: Yes Each Risk Factor Represents 2 Points: Age 61-74 years Each Risk Factor Represents 3 Points: History of DVT/PE Other congenital or acquired thrombophilia - If yes, enter type in comment: No Thrombosis Risk Factor Assessment Total Risk Factor Score: 8 Thrombosis Risk Factor Assessment Level: High Risk Assessment and Plan Plan: -Acute hypercapnic respiratory failure secondary to COPD exacerbation presently improved patient will be discharged today patient may have bronchitis I do not believe patient has pneumonia or CHF at this time. -History of DVT in the past patient is on Coumadin INR is 2.2. Patient will be on steroids which has significant interaction with Coumadin because of which his INR need to be rechecked in couple days. Patient will be resumed and continued on home dose of Coumadin. -CVA TIA in the past -Hyperlipidemia -Hypertension -History of PE in the past, his present symptomatology is not consistent with pulmonary embolism -Continued nicotine abuse: Counseling was provided Patient will be discharged today to follow up with Dr. Nadia Mason in 2-3 days
[2018-05-11 15:39] LABS: Hemoglobin A1C 7.3 % (4.0-6.0)
[2018-05-11] MEDS ORDERED: WARFARIN 3 MG TAB PO ONE (18:00)
[2018-05-11] MEDS ORDERED: INSULIN DETEMIR 100 UNIT/ML 10 ML VIAL SQ SCH (21:00)
[2018-05-11] MEDS ORDERED: ATORVASTATIN 80 MG TAB PO SCH (21:00)
[2018-05-11] MEDS ORDERED: NORTRIPTYLINE 25 MG CAP PO SCH (21:00)
[2018-05-11] MEDS ORDERED: AZITHROMYCIN 500 MG TAB PO SCH (23:13)
== END 2018-05-11 13:46 | disposition home or self-care (01) ==
LOC: EC 21:11 → 4SSUR 23:19
PROVIDERS: ADMIT Hospitalist; ATTEND Hospitalist
DX: J18.9 Pneumonia, unspecified organism (principal); J44.0 Chronic obstructive pulmonary disease with (acute) lower respiratory infection; J44.1 Chronic obstructive pulmonary disease with (acute) exacerbation; Z23 Encounter for immunization; E66.01 Morbid (severe) obesity due to excess calories; Z68.37 Body mass index [BMI] 37.0-37.9, adult; E11.51 Type 2 diabetes mellitus with diabetic peripheral angiopathy without gangrene; F17.210 Nicotine dependence, cigarettes, uncomplicated; E78.5 Hyperlipidemia, unspecified; I10 Essential (primary) hypertension; J96.02 Acute respiratory failure with hypercapnia; K21.9 Gastro-esophageal reflux disease without esophagitis; Z71.6 Tobacco abuse counseling; Z79.01 Long term (current) use of anticoagulants; Z79.4 Long term (current) use of insulin; Z79.51 Long term (current) use of inhaled steroids; Z79.899 Other long term (current) drug therapy; Z82.49 Family history of ischemic heart disease and other diseases of the circulatory system; Z86.711 Personal history of pulmonary embolism; Z86.718 Personal history of other venous thrombosis and embolism; Z86.73 Personal history of transient ischemic attack (TIA), and cerebral infarction without residual deficits
CPT/HCPCS: 96365; 99285; 36415; 94640; 93005; 83880; 80053; 82550; 82553; 83735; 84484; 85025; 85610 ×2; 85730; 87040; 87502; 83036; 71046; 90715; G0378 ×2; S4990; J0696; J7512

== ENCOUNTER → 2018-09-03 | Outpatient (CLI) | payer MEDICARE ==
--- NOTE | 2018-09-03 15:13 | CT ---
EXAMINATION TYPE: CT sinus wo con DATE OF EXAM: 09/03/2018 COMPARISON: CT facial bones October 30, 2013 HISTORY: Chronic sinusitis per order. Nasal drainage per technologist. CT DLP: 605.9 mGycm. Automated Exposure Control for Dose Reduction was Utilized. TECHNIQUE: CT scan of the sinuses is performed without contrast, axial images are obtained, coronal r eformatted images are also reviewed. FINDINGS: Mild to minimal mucosal thickening inferior bilateral frontal sinuses and anterior ethmoid sinuses bilaterally is present. There is mild to moderate mucosal thickening involving the maxillary sinuses near maxillary antrum The ostiomeatal complex is patent bilaterally on the coronal images. Bi lateral narrowing is present seen best coronal image 29. No suspicious opacification or air-fluid lev els are identified. Visualized portion of mastoid air cells show no abnormal opacification. The globes are intact bilate rally. IMPRESSION: Chronic paranasal sinus disease as detailed above. No acute sinusitis noted.
== END | disposition home or self-care (01) ==
LOC: RADCTMAIN 14:38
PROVIDERS: ATTEND Family Medicine
DX: J32.0 Chronic maxillary sinusitis (principal); J32.1 Chronic frontal sinusitis; J32.2 Chronic ethmoidal sinusitis
CPT/HCPCS: 70486

== ENCOUNTER → 2019-07-19 | Outpatient (CLI) | payer MEDICARE ==
--- NOTE | 2019-07-21 11:43 | CT ---
EXAMINATION TYPE: CT chest wo con DATE OF EXAM: 07/19/2019 COMPARISON: Chest x-ray dated 05/10/2018 HISTORY: Difficulty breathing and abnormal chest xray at an outside institution. CT DLP: 745.7 mGycm. Automated Exposure Control for Dose Reduction was Utilized. TECHNIQUE: CT scan of the thorax is performed without IV contrast. FINDINGS: LUNGS: Extensive emphysematous changes of the seen of the lungs, primarily paraseptal with bullous em physematous changes of the right lung apex and numerous subpleural blebs. No focal consolidation, ple ural effusion or pneumothorax is seen. Pleural parenchymal scarring is seen at the right lung base me dially on image 56 with more nodular component laterally on image 55 measuring 6 mm. There is bibasil ar and right middle lobe peribronchial cuffing that may be chronic in this patient with COPD and reac tive.. MEDIASTINUM: Lack of IV contrast is noted to limit evaluation for mediastinal and especially hilar ad enopathy. There are numerous mediastinal lymph nodes however there are no definitive greater than 1 c m hilar or mediastinal lymph nodes. There is enlargement of the main pulmonary artery measuring 4.1 c m. There are mild coronary calcifications are seen. No cardiomegaly or pericardial effusion is seen. OTHER: A small amount of biliary sludge is seen on image 81 in the gallbladder fundus layering depend ently versus small calculi. Proximal portion of the presumed inferior vena cava filter is partially v isualized. There is mild diffuse osseous demineralization and mild multilevel degenerative changes of the spine. IMPRESSION: 1. 6 mm nodular density that may represent scarring/pseudonodule or true left basilar pulmonary nodul e. Per consensus criteria in this high-risk patient with extensive background emphysematous changes C T thorax is recommended in 6-12 months then if the pulmonary nodule is stable at 18-24 months. 2. Enlargement of the main pulmonary artery, suggesting pulmonary arterial hypertension. 3. Small amount of biliary sludge versus small calculi in the gallbladder fundus dependently. 4. Bibasilar right middle lobe. Bronchial cuffing, likely reactive in this patient with background brittany ng disease. Alternatively acute bronchitis is possible.
== END ==
LOC: RADCTMAIN 16:18
PROVIDERS: ATTEND Family Medicine
DX: I77.89 Other specified disorders of arteries and arterioles (principal); R91.8 Other nonspecific abnormal finding of lung field
CPT/HCPCS: 71250

== ENCOUNTER → 2019-07-26 | Outpatient (CLI) | payer MEDICARE ==
[2019-07-26 12:22] LABS: Basophils % (A) 0 %; Eosinophils # (A) 0.1 k/uL (0-0.7); Eosinophils % (A) 2 %; HCT 42.1 % (39.0-53.0); HGB 14.2 gm/dL (13.0-17.5); Lymphocytes # (A) 1.6 k/uL (1.0-4.8); Lymphocytes % (A) 24 %; MCH 32.4 pg (25.0-35.0); MCHC 33.8 g/dL (31.0-37.0); MCV 95.9 fL (80.0-100.0); Mean Platelet Volume 7.8; Monocytes # (A) 0.4 k/uL (0-1.0); Monocytes % (A) 6 %; Neutrophils # (A) 4.4 k/uL (1.3-7.7); Neutrophils % (A) 66 %; Platelet Count 200 k/uL (150-450); RBC 4.39 m/uL (4.30-5.90); RDW 13.8 % (11.5-15.5); WBC 6.7 k/uL (3.8-10.6)
--- NOTE | 2019-07-26 12:25 | XR ---
EXAMINATION TYPE: XR foot complete LT DATE OF EXAM: 07/26/2019 COMPARISON: NONE HISTORY: Pain, swelling, ulcer TECHNIQUE: Three views are submitted. FINDINGS: Diffuse soft tissue edema. Hammertoe deformities are seen and is arthropathy of the MTP joint. Calcan eal spurs are noted. No acute fracture. No destructive changes. Question a small metallic foreign bod y adjacent the proximal phalanx of the fourth digit. IMPRESSION: 1. Diffuse soft tissue edema correlate clinically. Cannot exclude a small metallic foreign body adjac ent to the proximal phalanx of the fourth digit.
[2019-07-26 19:57] LABS: Hemoglobin A1C 8.8 % (4.0-6.0)
[2019-07-26 20:32] LABS: African American GFR (CKD) 105.7 (60.0-200.0); Albumin 3.8 g/dL (3.80-4.90); Albumin/Globulin Ratio 1.65 (1.60-3.17); Anion Gap 7.2 mmol/L (4.00-12.00); BUN/Creat Ratio 18.89 Ratio (12.00-20.00); Calcium 8.3 mg/dL (8.7-10.3); Carbon Dioxide 25.8 mmol/L (21.6-31.8); Globulin 2.3 g/dL (1.6-3.3); Non-African American GFR(CKD) 91.2 (60.0-200.0); Total Bilirubin 0.4 mg/dL (0.3-1.2); Total Protein 6.1 g/dL (6.2-8.2)
== END | disposition home or self-care (01) ==
LOC: LABWHC1 11:29
PROVIDERS: ATTEND Podiatrist
DX: M79.89 Other specified soft tissue disorders (principal); E11.621 Type 2 diabetes mellitus with foot ulcer; I73.9 Peripheral vascular disease, unspecified; L97.509 Non-pressure chronic ulcer of other part of unspecified foot with unspecified severity
CPT/HCPCS: 36415; 80053; 83036; 84134; 85025

== ENCOUNTER → 2019-07-30 | Outpatient (CLI) | payer MEDICARE ==
--- NOTE | 2019-07-30 10:38 | US ---
EXAMINATION TYPE: US venous doppler duplex LE DATE OF EXAM: 07/30/2019 10:20 AM COMPARISON: Left venous ultrasound May 20, 2011. CLINICAL HISTORY: E11.621. Ulcer left foot, diabetic, factor 5, multiple DVT history, last DVT was 8 years prior, on thinners, no pain SIDE PERFORMED: Bilateral TECHNIQUE: The lower extremity deep venous system is examined utilizing real time linear array sonog andrea with graded compression, doppler sonography and color-flow sonography. VESSELS IMAGED: External Iliac Vein (EIV) Common Femoral Vein Deep Femoral Vein Greater Saphenous Vein * Femoral Vein Popliteal Vein Small Saphenous Vein * Proximal Calf Veins (* superficial vessels) Right Leg: Appears negative for DVT Left Leg: Internal echoes seen throughout femoral vein up through EIV, patients has extensive DVT hi story, blood flow was seen along vessels and they did mostly compress which lends itself to chronic v ersus acute findings. Grayscale, color doppler, spectral doppler imaging performed of the deep veins of the bilateral lower extremities. There is normal flow, compressibility, vascular waveforms. IMPRESSION: Evidence of partially occlusive chronic DVT changes in the left lower extremity. No acut e DVT evident bilaterally on current study.
--- NOTE | 2019-07-31 09:25 | P.ARTDOP ---
Arterial Doppler LOWER EXTREMITY ARTERIAL DOPPLER: DATE OF SERVICE: 07/30/2019 Reason for study: Left foot ulcer. Doppler waveforms: Multiphasic throughout bilaterally. Pulse volume recording: []. Pressure gradients: None. Ankle-brachial indices: Greater than 1 bilaterally. Toe pressures: 105 on the right, toe to large on the left Impression: Normal study. Circulation appears adequate for healing..
== END | disposition home or self-care (01) ==
LOC: RADUSWWP 09:05
PROVIDERS: ATTEND Podiatrist
DX: I82.502 Chronic embolism and thrombosis of unspecified deep veins of left lower extremity (principal); E11.621 Type 2 diabetes mellitus with foot ulcer; L97.522 Non-pressure chronic ulcer of other part of left foot with fat layer exposed; E11.42 Type 2 diabetes mellitus with diabetic polyneuropathy; I73.9 Peripheral vascular disease, unspecified
CPT/HCPCS: 93923; 93970

== ENCOUNTER 2019-08-15 17:11 | Inpatient (IN) | payer MEDICARE ==
[2019-08-15] MEDS ORDERED: ASPIRIN 81 MG PO STA (18:27)
[2019-08-15] MEDS ORDERED: LEVOFLOXACIN 750MG-D5W PMX 750 MG in DEXTROSE/WATER 1 150ML.BAG IVPB STA (18:29)
[2019-08-15] MEDS ORDERED: SODIUM CHLORIDE 0.9% 500 ML 500 ML IV STA ×2 (18:30→20:47)
[2019-08-15] MEDS ORDERED: SODIUM CHLORIDE 0.9% 1,000 ML IV ONE ×2 (18:47→21:00)
[2019-08-15 19:16] LABS: Basophils # (A) 0.1 k/uL (0-0.2); Basophils % (A) 1 %; Eosinophils % (A) 0 %; HCT 41.9 % (39.0-53.0); HGB 13.6 gm/dL (13.0-17.5); Lymphocytes % (A) 10 %; MCH 31.2 pg (25.0-35.0); MCHC 32.5 g/dL (31.0-37.0); Mean Platelet Volume 8.4; Monocytes # (A) 0.6 k/uL (0-1.0); Monocytes % (A) 6 %; Neutrophils % (A) 81 %; Platelet Count 233 k/uL (150-450); RBC 4.36 m/uL (4.30-5.90); RDW 14.3 % (11.5-15.5); WBC 9.9 k/uL (3.8-10.6)
--- NOTE | 2019-08-15 19:22 | ED ---
General Adult HPI - General Source: patient, RN notes reviewed, old records reviewed Mode of arrival: wheelchair Limitations: no limitations <Fransisco Jarvis - Last Filed: 08/15/19 19:22> - History of Present Illness -: days(s) Location: left, lower extremity Severity scale (1-10): 3 Quality: aching Consistency: constant Improves with: none Worsens with: none Associated Symptoms: shortness of breath, weakness Treatments Prior to Arrival: none <Bret Royal - Last Filed: 08/15/19 22:13> - General Chief complaint: Extremity Injury, Lower Stated complaint: Foot swelling Time Seen by Provider: 08/15/19 18:05 - History of Present Illness Initial comments: 64-year-old male patient passed no history of asthma, COPD, type 2 diabetes, history of DVT and PE anticoagulated on warfarin this ED for chief complaint of left lower extremity diabetic foot ulcer. Patient reports that he has had a chronic left lower extremity but also for the last month. However yesterday began developing a noxious odor and got significantly worse. He was also told by his primary care provider he may have a foreign body in the foot. Patient also reports that over the last month he has been experiencing substernal burning and some chest tightness. Also reports some shortness of breath. Patient does have a Haile filter. Reports that he does have COPD at baseline. Denies any other complaints. Systemic: Pt denies fatigue, fever/chills, rash. Pt denies weakness, night sweats, weight loss. Neuro: Pt denies headache, visual disturbances, syncope or pre-syncope. HEENT: Pt denies ocular discharge or irritation, otalgia, rhinorrhea, pharyngitis or notable lymphadenopathy. Cardiopulmonary: Pt denies heart palpitations, dyspnea on exertion. Abdominal/GI: Pt denies abdominal pain, n/v/d. : Pt denies dysuria, burning w/ urination, frequency/urgency. Denies new onset urinary or bowel incontinence. MSK: Pt denies myalgia, loss of strength or function in extremities. Neuro: Pt denies new onset weakness, paresthesias. (Fransisco Jarvis) - Related Data Home Medications Medication Instructions Recorded Confirmed Atorvastatin [Lipitor] 80 mg PO HS 01/09/14 05/10/18 Celecoxib [CeleBREX] 200 mg PO [facility] 01/09/14 05/10/18 Pregabalin [Lyrica] 300 mg PO BID 01/09/14 05/10/18 Topiramate [Topamax] 25 mg PO BID 01/09/14 05/10/18 Warfarin Sodium [Coumadin] 6 mg PO [id number] 01/09/14 05/10/18 metFORMIN HCL [Glucophage] 500 mg PO BID 01/09/14 05/10/18 oxyCODONE HCL/ACETAMINOPHEN 1 tab PO Q6HR PRN 01/09/14 05/10/18 [Percocet 10-325 mg] INSULIN ASPART (NovoLOG) [NovoLOG See Protocol SQ AC-BRKFST 11/15/17 05/10/18 (formulary)] Insulin Degludec [Tresiba 65 unit SQ HS 11/15/17 05/10/18 Flextouch U-200] Lisinopril [Zestril] 20 mg PO DAILY 11/15/17 05/10/18 Morphine Sulfate [Ms Contin] 30 mg PO TID 11/15/17 05/10/18 Multivitamins, Thera [Multivitamin 1 tab PO DAILY 11/15/17 05/10/18 (formulary)] Nortriptyline [Pamelor] 50 mg PO HS 11/15/17 05/10/18 Inhaler Unknown 1 puff INHALATION RT-DAILY 05/10/18 05/10/18 Warfarin Sodium 9 mg PO AQUINO 05/10/18 05/10/18 Previous Rx's Medication Instructions Recorded Phenazopyridine HCl [Pyridium] 100 mg PO TID #10 tab 11/15/17 Azithromycin [Zithromax Tri-Anoop] 500 mg PO DAILY 5 Days #3 tab 05/11/18 Budesonide-Formot 160-4.5 Mcg 2 puff INHALATION BID #1 inhaler 05/11/18 [Symbicort 160-4.5 Mcg Inhaler] predniSONE 10 mg PO DAILY #30 tab 05/11/18 Allergies Allergy/AdvReac Type Severity Reaction Status Date / Time No Known Allergies Allergy Verified 08/15/19 17:33 Review of Systems ROS Other: All systems not noted in ROS Statement are negative. <Fransisco Jarvsi - Last Filed: 02/06/20 19:22> ROS Other: All systems not noted in ROS Statement are negative. <Bret Royal - Last Filed: 08/15/19 22:13> ROS Statement: Those systems with pertinent positive or pertinent negative responses have been documented in the HPI. Past Medical History Past Medical History: Asthma, COPD, CVA/TIA, Diabetes Mellitus, Deep Vein Thrombosis (DVT), GERD/Reflux, Hyperlipidemia, Hypertension, Neurologic Disorder, Osteoarthritis (OA), Pneumonia, Pulmonary Embolus (PE) Additional Past Medical History / Comment(s): MIGRAINES. " ANITICOAGULANT LUPUS". PNEUMOTHRORAX. PERIPHERAL EDEMA. History of Any Multi-Drug Resistant Organisms: None Reported Past Surgical History: Adenoidectomy, Appendectomy, Tonsillectomy Additional Past Surgical History / Comment(s): HAILE FILTER . VEIN STRIPPING. STENTS IN "PELVIC AREA" NOVEMBER 2004. Past Anesthesia/Blood Transfusion Reactions: No Reported Reaction Past Psychological History: No Psychological Hx Reported Smoking Status: Current every day smoker Past Alcohol Use History: None Reported Past Drug Use History: None Reported - Past Family History Mother Additional Family Medical History / Comment(s): heart disease, peripheral vascular disease. Father Family Medical History: Unable to Obtain <Fransisco Jarvis - Last Filed: 08/15/19 19:22> General Exam Limitations: no limitations <Fransisco Jarvis - Last Filed: 08/15/19 19:22> General appearance: alert, in no apparent distress, anxious Head exam: Present: atraumatic, normocephalic, normal inspection Eye exam: Present: normal appearance, PERRL, EOMI. Absent: scleral icterus, conjunctival injection, periorbital swelling ENT exam: Present: normal exam, mucous membranes moist Neck exam: Present: normal inspection. Absent: tenderness, meningismus, lymphadenopathy Respiratory exam: Present: normal lung sounds bilaterally. Absent: respiratory distress, wheezes, rales, rhonchi, stridor Cardiovascular Exam: Present: tachycardia, irregular rhythm, normal heart sounds. Absent: systolic murmur, diastolic murmur, rubs, gallop, clicks GI/Abdominal exam: Present: soft, normal bowel sounds. Absent: distended, tenderness, guarding, rebound, rigid Extremities exam: Present: normal inspection, full ROM, normal capillary refill. Absent: tenderness, pedal edema, joint swelling, calf tenderness Back exam: Present: normal inspection Neurological exam: Present: alert, oriented X3, CN II-XII intact Psychiatric exam: Present: normal affect, normal mood Skin exam: Present: warm, dry, intact, normal color. Absent: rash <Bret Royal - Last Filed: 08/15/19 22:13> Course <Bret Royal - Last Filed: 08/15/19 22:13> Vital Signs 08/15/19 08/15/19 08/15/19 17:33 19:21 19:30 Temperature 98.2 F Pulse Rate 115 H 142 H 151 H Respiratory 18 18 18 Rate Blood Pressure 94/51 104/76 105/93 O2 Sat by Pulse 99 96 Oximetry 08/15/19 08/15/19 08/15/19 20:00 21:26 21:49 Temperature 97.6 F Pulse Rate 149 H 123 H 138 H Respiratory 18 18 18 Rate Blood Pressure 101/84 101/71 97/68 O2 Sat by Pulse 96 98 98 Oximetry - Reevaluation(s) Reevaluation #1: 08/15/19 22:09 Medical records reviewed (Bret Royal) Reevaluation #2: 08/15/19 22:09 Patient was difficult to control blood pressure and heart rate labile blood pressure with A. fib with RVR, heart rate is been bouncing around from 120s to 150s (Bret Royal) - Consultations Consultation #1: Spoke with Dr. Greco will admit to ICU, spoke with Dr. Alvarez who is agreeable for admission (Bret Royal) EKG Findings - EKG Comments: EKG Findings:: EKG shows afib 166 QRS 86 QTc 465 <Bret Royal - Last Filed: 08/15/19 22:13> Medical Decision Making - Lab Data Result diagrams: 08/15/19 18:55 <Fransisco Jarvis - Last Filed: 08/15/19 19:22> - Lab Data Result diagrams: 08/15/19 18:55 08/15/19 18:55 - Radiology Data Radiology results: report reviewed (XR left foot - negative for acute disease, US LLE negative for DVT, CXR negative for acute disaease), image reviewed <Bret Royal - Last Filed: 08/15/19 22:13> - Medical Decision Making 64 male to the ER for evaluation of acute atrial flutter ablation with RVR patient presents today with A. fib with RVR as well as significant likely osteomyelitis from diabetic foot ulcer and significant left foot cellulitis patient place on IV antibiotics, attempting rate control with A. fib with RVR low blood pressure is labile (Bret Royal) - Lab Data Lab Results 08/15/19 08/15/19 08/15/19 Range/Units 18:55 18:55 18:55 WBC 9.9 (3.8-10.6) k/uL RBC 4.36 (4.30-5.90) m/uL Hgb 13.6 (13.0-17.5) gm/dL Hct 41.9 (39.0-53.0) % MCV 96.0 (80.0-100.0) fL MCH 31.2 (25.0-35.0) pg MCHC 32.5 (31.0-37.0) g/dL RDW 14.3 (11.5-15.5) % Plt Count 233 (150-450) k/uL Neutrophils % 81 % Lymphocytes % 10 % Monocytes % 6 % Eosinophils % 0 % Basophils % 1 % Neutrophils # 8.0 H (1.3-7.7) k/uL Lymphocytes # 1.0 (1.0-4.8) k/uL Monocytes # 0.6 (0-1.0) k/uL Eosinophils # 0.0 (0-0.7) k/uL Basophils # 0.1 (0-0.2) k/uL PT 21.4 H (9.0-12.0) sec INR 2.2 H (<1.2) APTT 33.5 H (22.0-30.0) sec D-Dimer 0.64 H (<0.60) mg/L FEU Sodium 133 L (137-145) mmol/L Potassium 4.4 (3.5-5.1) mmol/L Chloride 99 (98-107) mmol/L Carbon Dioxide 24 (22-30) mmol/L Anion Gap 10 mmol/L BUN 26 H (9-20) mg/dL Creatinine 1.18 (0.66-1.25) mg/dL Est GFR (CKD-EPI)AfAm 76 (>60 ml/min/1.73 sqM) Est GFR (CKD-EPI)NonAf 66 (>60 ml/min/1.73 sqM) Glucose 299 H (74-99) mg/dL Calcium 8.2 L (8.4-10.2) mg/dL Magnesium 2.1 (1.6-2.3) mg/dL Total Bilirubin 0.7 (0.2-1.3) mg/dL AST 47 (17-59) U/L ALT 35 (4-49) U/L Alkaline Phosphatase 99 (38-126) U/L Troponin I (0.000-0.034) ng/mL Total Protein 6.2 L (6.3-8.2) g/dL Albumin 3.0 L (3.5-5.0) g/dL 08/15/19 Range/Units 18:55 WBC (3.8-10.6) k/uL RBC (4.30-5.90) m/uL Hgb (13.0-17.5) gm/dL Hct (39.0-53.0) % MCV (80.0-100.0) fL MCH (25.0-35.0) pg MCHC (31.0-37.0) g/dL RDW (11.5-15.5) % Plt Count (150-450) k/uL Neutrophils % % Lymphocytes % % Monocytes % % Eosinophils % % Basophils % % Neutrophils # (1.3-7.7) k/uL Lymphocytes # (1.0-4.8) k/uL Monocytes # (0-1.0) k/uL Eosinophils # (0-0.7) k/uL Basophils # (0-0.2) k/uL PT (9.0-12.0) sec INR (<1.2) APTT (22.0-30.0) sec D-Dimer (<0.60) mg/L FEU Sodium (137-145) mmol/L Potassium (3.5-5.1) mmol/L Chloride (98-107) mmol/L Carbon Dioxide (22-30) mmol/L Anion Gap mmol/L BUN (9-20) mg/dL Creatinine (0.66-1.25) mg/dL Est GFR (CKD-EPI)AfAm (>60 ml/min/1.73 sqM) Est GFR (CKD-EPI)NonAf (>60 ml/min/1.73 sqM) Glucose (74-99) mg/dL Calcium (8.4-10.2) mg/dL Magnesium (1.6-2.3) mg/dL Total Bilirubin (0.2-1.3) mg/dL AST (17-59) U/L ALT (4-49) U/L Alkaline Phosphatase (38-126) U/L Troponin I 0.027 (0.000-0.034) ng/mL Total Protein (6.3-8.2) g/dL Albumin (3.5-5.0) g/dL Critical Care Time Critical Care Time: Yes Total Critical Care Time: 95 <Bret Royal - Last Filed: 08/15/19 22:13> Disposition <Fransisco Jarvis - Last Filed: 08/15/19 19:22> Is patient prescribed a controlled substance at d/c from ED?: No <Bret Royal - Last Filed: 08/15/19 22:13> Clinical Impression: Atrial fibrillation with RVR, COPD with exacerbation, Diabetic foot ulcer, Left leg cellulitis Disposition: ADMITTED IP TO THIS HOSP Condition: Serious Referrals: Kristin Emery DO [Primary Care Provider] - 1-2 days
[2019-08-15 19:25] LABS: Calcium 8.2 mg/dL (8.4-10.2); Magnesium 2.1 mg/dL (1.6-2.3); Potassium 4.4 mmol/L (3.5-5.1); Total Bilirubin 0.7 mg/dL (0.2-1.3); Total Protein 6.2 g/dL (6.3-8.2)
[2019-08-15 19:38] LABS: INR 2.2 (<1.2); Partial Thromboplastin Time 33.5 sec (22.0-30.0); Prothrombin Time 21.4 sec (9.0-12.0)
--- NOTE | 2019-08-15 19:38 | XR ---
EXAMINATION: XR chest 3V DATE AND TIME: 08/15/2019 6:42 PM CLINICAL INDICATION: PHH; Chest Pain TECHNIQUE: 2 AP views and a lateral view COMPARISON: 05/10/2018 FINDINGS: The lungs are predominantly well expanded and clear but there is partial airlessness of the left lung base which can correlate with segmental atelectasis and/or bronchopneumonia, clinical distinction ne cessary. The pleural spaces are negative. The cardiac silhouette is borderline enlarged. The remainder of the mediastinal silhouette is unremar kable. The skeletal structures and soft tissues are negative for acute findings. IMPRESSION: No definite acute process, but partial left lung base airlessness noted.
--- NOTE | 2019-08-15 19:44 | XR ---
PROCEDURE: XR foot complete LT - 3V DATE AND TIME: 08/15/2019 6:42 PM CLINICAL INDICATION: PHH; diabetic foot ulcer TECHNIQUE: Department protocol COMPARISON: 07/26/2019 FINDINGS: Diffuse soft tissue edema is redemonstrated, more prominent. There is redemonstration of the 2 x 1 mm metallic foreign body - situated within the plantar soft tis sues between the third and fourth toe proximal phalanges. No destructive changes. No acute fracture. Hammertoe deformities are seen and is arthropathy of the MTP joint. Calcaneal spurs noted. IMPRESSION: 1. Increased diffuse soft tissue edema. 2. Small metallic radiopaque foreign body.
[2019-08-15 19:45] LABS: D-Dimer 0.64 mg/L FEU (<0.60)
[2019-08-15] MEDS ORDERED: DIPH,PERTUS(ACELL)TETVAC-LF 0.5 ML VIAL IM ONE (20:47)
--- NOTE | 2019-08-15 20:50 | US ---
EXAMINATION TYPE: US venous doppler duplex LE LT DATE OF EXAM: 08/15/2019 7:57 PM COMPARISON: US CLINICAL HISTORY: 64-year-old male unilateral leg swelling hx DVT. Unilateral leg swelling x 1 day. H x DVT, PE, Vein stripping. Patient is on coumadin. SIDE PERFORMED: Left TECHNIQUE: The lower extremity deep venous system is examined utilizing real time linear array sonog andrea with graded compression, doppler sonography and color-flow sonography. FINDINGS: VESSELS IMAGED: Common Femoral Vein Deep Femoral Vein Greater Saphenous Vein * Femoral Vein Popliteal Vein Small Saphenous Vein * Proximal Calf Veins (* superficial vessels) Left Leg: EIV not visualized. There appears to be thrombus throughout the superficial femoral vein u p into the CFV. Vessels appear to compress incompletely. Leg is very swollen. Limited evaluation and visibility of popliteal vein and prox calf veins to due edema. IMPRESSION: Very limited assessment due to the extensive swelling. Unable to visualize the external iliac vein, p opliteal vein, and upper calf veins for adequate assessment. Intraluminal echoes suggesting nonocclusive DVT with partial compressibility extending from the commo n femoral vein down into the superficial femoral vein.
[2019-08-15] MEDS ORDERED: VANCOMYCIN IV PER PHARMACY 1 EACH MISC MISCELLANE PRN (20:55)
[2019-08-15] MEDS ORDERED: DILTIAZEM DRIP BOLUS FROM BAG 1 MG SOLN IV ONE (20:55)
[2019-08-15] MEDS ORDERED: HEPARIN SODIUM,PORCINE 10,000 UNIT/ML 1 ML VIAL IV ONE (20:56)
[2019-08-15] MEDS ORDERED: HEPARIN SODIUM,PORCINE 5,000 UNIT/ML 1 ML VIAL IV PRN (20:56)
[2019-08-15] MEDS ORDERED: DEXAMETHASONE SOD PHOSPHATE 10 MG/ML 1 ML VIAL IV STA (20:57)
[2019-08-15] MEDS ORDERED: VANCOMYCIN 2,000 MG in SODIUM CHLORIDE 0.9% 500 ML 500 ML IVPB ONE (21:30)
[2019-08-15] MEDS: HEPARIN SOD,PORK IN 0.45% NACL 25,000 UNIT in 0.45% NACL 1 250ML.BAG IV SCH (21:32)
[2019-08-15] MEDS ORDERED: DILTIAZEM 5 MG/ML 5 ML VIAL IVP STA ×2 (22:02→23:01)
[2019-08-15] MEDS ORDERED: NALOXONE 0.4 MG/ML 1 ML VIAL IV PRN (22:05)
[2019-08-15] MEDS ORDERED: NITROGLYCERIN SL TABS 0.4 MG TAB SUBLINGUAL PRN (22:05)
[2019-08-15] MEDS ORDERED: SODIUM CHLORIDE 0.9% 1,000 ML IV STA (22:14)
[2019-08-15 22:49] LABS: Appearance,Urine Clear (Clear); Bilirubin,Urine Negative (Negative); Blood,Urine Negative (Negative); Color,Urine Yellow; Glucose,Urine (UA) 1+ (Negative); Ketones,Urine Negative (Negative); Leukocyte Esterase,Urine Negative (Negative); Nitrite,Urine Negative (Negative); PH, Urine 5.5 (5.0-8.0); Protein,Urine Negative (Negative); Specific Gravity,Urine 1.017 (1.001-1.035)
[2019-08-15 23:19] LABS: ALT 35 U/L (4-49); AST 49 U/L (17-59); African American GFR (CKD) >90 (>60 ml/min/1.73 sqM); Albumin 2.9 g/dL (3.5-5.0); Alkaline Phosphatase 97 U/L (38-126); Anion Gap 8 mmol/L; Blood Urea Nitrogen 21 mg/dL (9-20); Calcium 7.6 mg/dL (8.4-10.2); Carbon Dioxide 22 mmol/L (22-30); Chloride 105 mmol/L (98-107); Glucose 224 mg/dL (74-99); Non-African American GFR(CKD) 80 (>60 ml/min/1.73 sqM); Phosphorus 3.4 mg/dL (2.5-4.5); Potassium 4.3 mmol/L (3.5-5.1); Sodium 135 mmol/L (137-145); Total Bilirubin 0.6 mg/dL (0.2-1.3); Total Protein 6.2 g/dL (6.3-8.2)
[2019-08-15 23:21] LABS: Basophils % (A) 0 %; Eosinophils # (A) 0.1 k/uL (0-0.7); Eosinophils % (A) 1 %; HCT 37.3 % (39.0-53.0); HGB 12.4 gm/dL (13.0-17.5); Lymphocytes # (A) 0.9 k/uL (1.0-4.8); Lymphocytes % (A) 10 %; MCH 31.3 pg (25.0-35.0); MCHC 33.2 g/dL (31.0-37.0); MCV 94.5 fL (80.0-100.0); Mean Platelet Volume 8.5; Monocytes # (A) 0.3 k/uL (0-1.0); Monocytes % (A) 3 %; Neutrophils # (A) 7.5 k/uL (1.3-7.7); Neutrophils % (A) 83 %; Platelet Count 220 k/uL (150-450); RBC 3.95 m/uL (4.30-5.90); RDW 14.2 % (11.5-15.5)
[2019-08-16 01:07] LABS: Glucose,Whole Blood 301 mg/dL (75-99)
[2019-08-16] MEDS: DILTIAZEM 125 MG in SODIUM CHLORIDE 0.9% 100 ML IV SCH ×2 (01:45→20:48)
[2019-08-16 02:07] LABS: Glucose,Whole Blood 306 mg/dL (75-99)
[2019-08-16] MEDS: methylPREDNISolone SOD SUCCI 125 MG/2 ML VIAL IV SCH ×5 (02:32→23:10)
[2019-08-16] MEDS: INSULIN ASPART (NovoLOG) 100 UNIT/ML VIAL SQ SCH ×6 (02:32→20:48)
[2019-08-16] MEDS: oxyCODONE-APAP 10-325MG 1 EACH TAB PO PRN ×3 (03:14→17:52)
[2019-08-16 03:36] LABS: Basophils % (A) 0 %; Eosinophils % (A) 0 %; HCT 40.1 % (39.0-53.0); HGB 12.8 gm/dL (13.0-17.5); Lymphocytes # (A) 0.6 k/uL (1.0-4.8); Lymphocytes % (A) 8 %; MCH 30.6 pg (25.0-35.0); MCHC 31.8 g/dL (31.0-37.0); MCV 96.3 fL (80.0-100.0); Mean Platelet Volume 8.2; Monocytes # (A) 0.2 k/uL (0-1.0); Monocytes % (A) 2 %; Neutrophils # (A) 6.6 k/uL (1.3-7.7); Neutrophils % (A) 89 %; Platelet Count 201 k/uL (150-450); RBC 4.17 m/uL (4.30-5.90); RDW 14.2 % (11.5-15.5); WBC 7.5 k/uL (3.8-10.6)
[2019-08-16 03:59] LABS: INR 2.8 (<1.2); Prothrombin Time 26.9 sec (9.0-12.0)
[2019-08-16 04:19] LABS: ALT 43 U/L (4-49); AST 55 U/L (17-59); African American GFR (CKD) >90 (>60 ml/min/1.73 sqM); Alkaline Phosphatase 113 U/L (38-126); Anion Gap 7 mmol/L; Blood Urea Nitrogen 21 mg/dL (9-20); Carbon Dioxide 21 mmol/L (22-30); Chloride 109 mmol/L (98-107); Cholesterol 94 mg/dL (<200); Glucose 314 mg/dL (74-99); HDL Cholesterol 21 mg/dL (40-60); LDL Cholesterol,Calculated 63 mg/dL (0-99); Magnesium 2.1 mg/dL (1.6-2.3); Non-African American GFR(CKD) 81 (>60 ml/min/1.73 sqM); Phosphorus 3.3 mg/dL (2.5-4.5); Potassium 4.8 mmol/L (3.5-5.1); Sodium 137 mmol/L (137-145); Total Bilirubin 0.6 mg/dL (0.2-1.3); Total Protein 6.6 g/dL (6.3-8.2); Triglycerides 52 mg/dL (<150)
[2019-08-16 05:34] LABS: Glucose,Whole Blood 274 mg/dL (75-99)
[2019-08-16] MEDS ORDERED: LORazepam 2 MG/ML INJ IV STA (06:07)
[2019-08-16] MEDS ORDERED: PROPOFOL 1,000 MG in EMPTY BAG 1 BAG IV SCH (06:15)
[2019-08-16] MEDS ORDERED: PROPOFOL 10 MG/ML 20 ML VIAL IV ONE (06:37)
--- NOTE | 2019-08-16 07:04 | CT ---
EXAMINATION TYPE: CT brain wo con DATE OF EXAM: 08/16/2019 COMPARISON: 02/03/2010 HISTORY: altered mental status CT DLP: 1099.4 mGycm Automated exposure control for dose reduction was used. Multiple axial sections were obtained of the brain without contrast. There is mild cerebral atrophy. There is no midline shift. There is no sign of intracranial hemorrhag e. There is minimal mucosal thickening left maxillary sinus. The calvarium is intact. IMPRESSION: No acute intracranial abnormality. There is improvement in left maxillary sinusitis compared to old e xam.
--- NOTE | 2019-08-16 08:11 | XR ---
EXAMINATION TYPE: XR chest 1V DATE OF EXAM: 08/16/2019 COMPARISON: Prior chest x-ray 08/15/2019, chest CT 07/19/2019 HISTORY: Congestive heart failure, ICU management TECHNIQUE: frontal view of the chest is obtained on 2 images. FINDINGS: Patient is rotated, there are overlying cardiac leads. Prominent lung volumes suggest under lying COPD, patient with emphysema. Suspect some left lower lobe atelectasis versus pneumonia. Inters titium is increased. Prominence of pulmonary artery may be indicative of pulmonary artery hypertensio n. There is no pleural effusion or pneumothorax seen. The cardiac silhouette size is enlarged. The osseous structures are intact. IMPRESSION: Emphysema, correlate for pulmonary artery hypertension. Prominence of the heart could be due to rotation. Correlate for possible left lower lobe atelectasis versus pneumonia, difficult to e xclude a component of interstitial edema, follow-up recommended.
[2019-08-16] MEDS ORDERED: CHLORHEXIDINE GLUCONATE 15 ML CUP MUCOUS MEM SCH (09:00)
[2019-08-16] MEDS: PANTOPRAZOLE 40 MG TABLET PO SCH (10:05)
[2019-08-16] MEDS: HEPARIN SOD,PORK IN 0.45% NACL 25,000 UNIT in 0.45% NACL 1 250ML.BAG IV SCH ×2 (10:09→19:17)
[2019-08-16] MEDS: PREGABALIN 100 MG CAP PO SCH ×2 (10:09→20:49)
[2019-08-16] MEDS: ASPIRIN 325 MG TAB PO SCH (10:09)
[2019-08-16] MEDS ORDERED: VANCOMYCIN 2,000 MG in SODIUM CHLORIDE 0.9% 500 ML 500 ML IVPB SCH (11:00)
--- NOTE | 2019-08-16 11:09 | P.GSCN ---
History of Present Illness Consult date: 08/16/19 Reason for Consult: Lower extremity deep vein thrombosis History of present illness: The patient is a pleasant 62-year-old male with a past history of asthma, COPD, type 2 diabetes, history of bilateral DVTs and pulmonary embolisms who's been anticoagulated on warfarin. The patient also been following with Dr. Naranjo at the [facility] [place] for a left lower extremity diabetic foot ulcer for the past month. Yesterday he began developing odor from the left lower extremity and was told by his primary care physician that he had a foreign body in the foot. He also presented with increased shortness of breath and weakness. The patient has a [place] filter and has had bilateral lower extremity stents placed several years ago. The patient also follows with Dr. Quinn who he states is his vascular surgeon. The patient had a recent arterial study done with bilateral multiphasic signals, and overall normal study on 07/30/2019.The patient is a smoker approximately a half to 1 pack per day. While in the emergency department patient was noted to be an A. fib with RVR, having difficulty with rate control and blood pressure control and was admitted to the ICU. He states he had fevers and chills at home, increase in pain to the left foot with increased drainage. The patient currently denies any chest pain, still has some shortness of breath. Review of Systems A 14 point review of systems completed and all pertinent positives and negatives as stated in the HPI. Past Medical History Past Medical History: Asthma, COPD, CVA/TIA, Diabetes Mellitus, Deep Vein Thrombosis (DVT), GERD/Reflux, Hyperlipidemia, Hypertension, Neurologic Disorder, Osteoarthritis (OA), Pneumonia, Pulmonary Embolus (PE) Additional Past Medical History / Comment(s): MIGRAINES. " ANITICOAGULANT LUPUS". PNEUMOTHRORAX. PERIPHERAL EDEMA. History of Any Multi-Drug Resistant Organisms: None Reported Past Surgical History: Adenoidectomy, Appendectomy, Tonsillectomy Additional Past Surgical History / Comment(s): [place] FILTER . VEIN STRIPPING. STENTS IN "PELVIC AREA" NOVEMBER 2004. Past Anesthesia/Blood Transfusion Reactions: No Reported Reaction Past Psychological History: No Psychological Hx Reported Additional Psychological History / Comment(s): TAKES CYMBALTA FOR CARPAL TUNNEL. Smoking Status: Current every day smoker Past Alcohol Use History: None Reported Past Drug Use History: None Reported - Past Family History Mother Additional Family Medical History / Comment(s): heart disease, peripheral vascular disease. Father Family Medical History: Unable to Obtain Medications and Allergies Home Medications Medication Instructions Recorded Confirmed Type Atorvastatin [Lipitor] 80 mg PO HS 01/09/14 08/16/19 History Celecoxib [CeleBREX] 200 mg PO QAM 01/09/14 08/16/19 History Pregabalin [Lyrica] 300 mg PO BID 01/09/14 08/16/19 History Topiramate [Topamax] 25 mg PO BID 01/09/14 08/16/19 History Warfarin Sodium [Coumadin] 6 mg PO MOTUWETHFRSA 01/09/14 08/16/19 History metFORMIN HCL [Glucophage] 500 mg PO BID 01/09/14 08/16/19 History oxyCODONE HCL/ACETAMINOPHEN 1 tab PO Q6HR PRN 01/09/14 08/16/19 History [Percocet 10-325 mg] Insulin Degludec [Tresiba 72 unit SQ HS 11/15/17 08/15/19 History Flextouch U-200] Lisinopril [Zestril] 20 mg PO DAILY 11/15/17 08/16/19 History Multivitamins, Thera [Multivitamin 1 tab PO DAILY 11/15/17 08/16/19 History (formulary)] Warfarin Sodium 9 mg PO AQUINO 05/10/18 08/16/19 History Budesonide-Formot 160-4.5 Mcg 2 puff INHALATION BID #1 inhaler 05/11/18 08/15/19 Rx [Symbicort 160-4.5 Mcg Inhaler] Albuterol Nebulized [Ventolin 2.5 mg INHALATION RT-QID PRN 08/15/19 08/16/19 History Nebulized] Docusate [Colace] 100 mg PO DAILY PRN 08/15/19 08/15/19 History Fluticasone Nasal [place] [Flonase 2 spr EA NOSTRIL DAILY 08/15/19 08/16/19 History Nasal [place]] Fluticasone/Umeclidin/Vilanter 1 puff INHALATION RT-DAILY 08/15/19 08/16/19 History [Trelegy Ellipta 100-62.5-25] Levofloxacin 750 mg PO DAILY 08/15/19 08/16/19 History Morphine Sulfate [Morphine Sulfate 30 mg PO Q8H 08/15/19 08/16/19 History ER] Nortriptyline [Pamelor] 50 mg PO HS 08/15/19 08/16/19 History Omeprazole [PriLOSEC] 20 mg PO DAILY 08/15/19 08/16/19 History Tiotropium Ebony [Spiriva] 1 cap INHALATION DAILY 08/15/19 08/15/19 History diphenhydrAMINE [Benadryl] 25 mg PO DAILY 08/15/19 08/15/19 History Allergies Allergy/AdvReac Type Severity Reaction Status Date / Time baclofen Allergy Unknown Verified 08/16/19 09:07 Surgical - Exam Vital Signs Temp Pulse Resp BP Pulse Ox 98.2 F 115 H 18 94/51 99 08/15/19 17:33 08/15/19 17:33 08/15/19 17:33 08/15/19 17:33 08/15/19 17:33 General appearance: The patient is alert, oriented, in no acute distress. HET: Head is normocephalic and atraumatic. Neck: Supple without lymphadenopathy. Trachea midline. Heart: S1 S2. Tachycardic, with irregular rate. Lungs: No crackles or wheezes are heard. Abdomen: Soft, nontender, nondistended with bowel sounds. Extremities: Bilateral lower extremity edema. Left lower extremity with increased swelling and redness, ulcer left plantar forefoot and between fourth and fifth toes with yellow drainage. Results #1 X-ray of the left foot reviewed with findings that included a 2 x 1 mm metallic foreign body situated within the plantar soft tissues between the third and fourth toe proximal phalanges with increased diffuse soft tissue edema #2 venous Doppler left lower extremity reveals a thrombus throughout the superficial femoral vein into the C CFV. Vessels appear to compress incompletely. Leg is swollen. Limited evaluation and visibility of popliteal vein and proximal calf veins due to edema. - Labs 08/16/19 03:16 08/16/19 03:16 Abnormal Lab Results - Last 24 Hours (Table) 08/15/19 08/15/19 08/15/19 Range/Units 18:55 18:55 18:55 RBC (4.30-5.90) m/uL Hgb (13.0-17.5) gm/dL Hct (39.0-53.0) % Neutrophils # 8.0 H (1.3-7.7) k/uL Lymphocytes # (1.0-4.8) k/uL PT 21.4 H (9.0-12.0) sec INR 2.2 H (<1.2) APTT 33.5 H (22.0-30.0) sec D-Dimer 0.64 H (<0.60) mg/L FEU Sodium 133 L (137-145) mmol/L Chloride (98-107) mmol/L Carbon Dioxide (22-30) mmol/L BUN 26 H (9-20) mg/dL Glucose 299 H (74-99) mg/dL POC Glucose (mg/dL) (75-99) mg/dL Calcium 8.2 L (8.4-10.2) mg/dL Total Protein 6.2 L (6.3-8.2) g/dL Albumin 3.0 L (3.5-5.0) g/dL HDL Cholesterol (40-60) mg/dL Urine Glucose (UA) (Negative) 08/15/19 08/15/19 08/15/19 Range/Units 22:31 22:42 22:42 RBC 3.95 L (4.30-5.90) m/uL Hgb 12.4 L (13.0-17.5) gm/dL Hct 37.3 L (39.0-53.0) % Neutrophils # (1.3-7.7) k/uL Lymphocytes # 0.9 L (1.0-4.8) k/uL PT (9.0-12.0) sec INR (<1.2) APTT (22.0-30.0) sec D-Dimer (<0.60) mg/L FEU Sodium 135 L (137-145) mmol/L Chloride (98-107) mmol/L Carbon Dioxide (22-30) mmol/L BUN 21 H (9-20) mg/dL Glucose 224 H (74-99) mg/dL POC Glucose (mg/dL) (75-99) mg/dL Calcium 7.6 L (8.4-10.2) mg/dL Total Protein 6.2 L (6.3-8.2) g/dL Albumin 2.9 L (3.5-5.0) g/dL HDL Cholesterol (40-60) mg/dL Urine Glucose (UA) 1+ H (Negative) 08/16/19 08/16/19 08/16/19 Range/Units 01:06 02:05 03:16 RBC 4.17 L (4.30-5.90) m/uL Hgb 12.8 L (13.0-17.5) gm/dL Hct (39.0-53.0) % Neutrophils # (1.3-7.7) k/uL Lymphocytes # 0.6 L (1.0-4.8) k/uL PT (9.0-12.0) sec INR (<1.2) APTT (22.0-30.0) sec D-Dimer (<0.60) mg/L FEU Sodium (137-145) mmol/L Chloride (98-107) mmol/L Carbon Dioxide (22-30) mmol/L BUN (9-20) mg/dL Glucose (74-99) mg/dL POC Glucose (mg/dL) 301 H 306 H (75-99) mg/dL Calcium (8.4-10.2) mg/dL Total Protein (6.3-8.2) g/dL Albumin (3.5-5.0) g/dL HDL Cholesterol (40-60) mg/dL Urine Glucose (UA) (Negative) 08/16/19 08/16/19 08/16/19 Range/Units 03:16 03:16 05:32 RBC (4.30-5.90) m/uL Hgb (13.0-17.5) gm/dL Hct (39.0-53.0) % Neutrophils # (1.3-7.7) k/uL Lymphocytes # (1.0-4.8) k/uL PT 26.9 H (9.0-12.0) sec INR 2.8 H (<1.2) APTT (22.0-30.0) sec D-Dimer (<0.60) mg/L FEU Sodium (137-145) mmol/L Chloride 109 H (98-107) mmol/L Carbon Dioxide 21 L (22-30) mmol/L BUN 21 H (9-20) mg/dL Glucose 314 H (74-99) mg/dL POC Glucose (mg/dL) 274 H (75-99) mg/dL Calcium 8.0 L (8.4-10.2) mg/dL Total Protein (6.3-8.2) g/dL Albumin 3.0 L (3.5-5.0) g/dL HDL Cholesterol 21 L (40-60) mg/dL Urine Glucose (UA) (Negative) 08/16/19 Range/Units 06:10 RBC (4.30-5.90) m/uL Hgb (13.0-17.5) gm/dL Hct (39.0-53.0) % Neutrophils # (1.3-7.7) k/uL Lymphocytes # (1.0-4.8) k/uL PT (9.0-12.0) sec INR (<1.2) APTT 173.9 H* (22.0-30.0) sec D-Dimer (<0.60) mg/L FEU Sodium (137-145) mmol/L Chloride (98-107) mmol/L Carbon Dioxide (22-30) mmol/L BUN (9-20) mg/dL Glucose (74-99) mg/dL POC Glucose (mg/dL) (75-99) mg/dL Calcium (8.4-10.2) mg/dL Total Protein (6.3-8.2) g/dL Albumin (3.5-5.0) g/dL HDL Cholesterol (40-60) mg/dL Urine Glucose (UA) (Negative) Diabetes panel 08/15/19 08/15/19 08/16/19 Range/Units 18:55 22:42 03:16 Sodium 133 L 135 L 137 (137-145) mmol/L Potassium 4.4 4.3 4.8 (3.5-5.1) mmol/L Chloride 99 105 109 H (98-107) mmol/L Carbon Dioxide 24 22 21 L (22-30) mmol/L BUN 26 H 21 H 21 H (9-20) mg/dL Creatinine 1.18 1.00 0.99 (0.66-1.25) mg/dL Glucose 299 H 224 H 314 H (74-99) mg/dL Calcium 8.2 L 7.6 L 8.0 L (8.4-10.2) mg/dL AST 47 49 55 (17-59) U/L ALT 35 35 43 (4-49) U/L Alkaline Phosphatase 99 97 113 (38-126) U/L Total Protein 6.2 L 6.2 L 6.6 (6.3-8.2) g/dL Albumin 3.0 L 2.9 L 3.0 L (3.5-5.0) g/dL Triglycerides 52 (<150) mg/dL HDL Cholesterol 21 L (40-60) mg/dL Calcium panel 08/15/19 08/15/19 08/16/19 Range/Units 18:55 22:42 03:16 Calcium 8.2 L 7.6 L 8.0 L (8.4-10.2) mg/dL Phosphorus 3.4 3.3 (2.5-4.5) mg/dL Albumin 3.0 L 2.9 L 3.0 L (3.5-5.0) g/dL Pituitary panel 08/15/19 08/15/19 08/16/19 Range/Units 18:55 22:42 03:16 Sodium 133 L 135 L 137 (137-145) mmol/L Potassium 4.4 4.3 4.8 (3.5-5.1) mmol/L Chloride 99 105 109 H (98-107) mmol/L Carbon Dioxide 24 22 21 L (22-30) mmol/L BUN 26 H 21 H 21 H (9-20) mg/dL Creatinine 1.18 1.00 0.99 (0.66-1.25) mg/dL Glucose 299 H 224 H 314 H (74-99) mg/dL Calcium 8.2 L 7.6 L 8.0 L (8.4-10.2) mg/dL Adrenal panel 08/15/19 08/15/19 08/16/19 Range/Units 18:55 22:42 03:16 Sodium 133 L 135 L 137 (137-145) mmol/L Potassium 4.4 4.3 4.8 (3.5-5.1) mmol/L Chloride 99 105 109 H (98-107) mmol/L Carbon Dioxide 24 22 21 L (22-30) mmol/L BUN 26 H 21 H 21 H (9-20) mg/dL Creatinine 1.18 1.00 0.99 (0.66-1.25) mg/dL Glucose 299 H 224 H 314 H (74-99) mg/dL Calcium 8.2 L 7.6 L 8.0 L (8.4-10.2) mg/dL Total Bilirubin 0.7 0.6 0.6 (0.2-1.3) mg/dL AST 47 49 55 (17-59) U/L ALT 35 35 43 (4-49) U/L Alkaline Phosphatase 99 97 113 (38-126) U/L Total Protein 6.2 L 6.2 L 6.6 (6.3-8.2) g/dL Albumin 3.0 L 2.9 L 3.0 L (3.5-5.0) g/dL Assessment and Plan Assessment: #1 chronic left lower extremity deep vein thrombosis on Warfarin #2 tree of pulmonary embolism #3 left foot ulcer, with foreign body #4 new onset atrial fibrillation with RVR #5 tobacco abuse #6 type 2 diabetes mellitus #7 COPD Plan: Discuss patient with Dr. Gamble. We'll defer anticoagulation to ICU/cardiology team for atrial fibrillation. As far as the left foot ulcer and foreign body will defer to wound care management and Dr. Naranjo who has established relationship with patient. Continue to follow recommendations per infectious disease. Further recommendations to follow. Thank you for this consultation and allowing us to take part in the plan of care this patient during his hospital stay. The above dictated assessment and findings were discussed with Dr. Gamble. The impression and plan of care have been directed as dictated.
--- NOTE | 2019-08-16 11:55 | CONS ---
CONSULTATION CHIEF COMPLAINT: Bilateral lower extremity swelling. This is a 64-year-old gentleman with history of bilateral lower extremity DVT, varicose veins, COPD, type 2 diabetes, diabetic foot ulcer, who presented to hospital with worsening leg swelling and there is a suspicion that he may have a foreign body in the foot. The patient has a history of [place] filter. On his presentation, he was found to be in atrial fibrillation with poorly controlled ventricular rate for which Cardiology had been consulted. The patient denies chest pain or difficulty in breathing. There is no history of coronary artery disease or congestive heart failure. The patient has had long-standing history of DVTs, varicose veins, lower extremity swelling. MEDICATIONS: Medications include metformin, Glucophage, Coumadin, Lyrica, Prilosec, morphine, Zestril, Flonase, Celebrex, Lipitor, Colace, and Spiriva. ALLERGIES: Allergic to BACLOFEN. FAMILY HISTORY: Negative for premature coronary artery disease. SOCIAL HISTORY: Negative for current smoking, EtOH abuse, or drug abuse. REVIEW OF SYSTEMS: HEENT is unremarkable. CARDIAC: As described above. RESPIRATORY: As described above. GI: Negative. GENITOURINARY: Negative. ALLERGY/IMMUNOLOGY: Negative. SKIN: Negative. MUSCULOSKELETAL: As described above. PSYCHOSOCIAL: Negative. ENDOCRINE: Negative. HEMATOLOGICAL: Negative. DERM: Negative. CONSTITUTIONAL: Negative. PHYSICAL EXAMINATION: On exam, patient is comfortable at rest. Heart rate is 120 beats per minute. Blood pressure is 130/85. Respiratory rate is 18. There is no jugular venous distention. Carotid upstroke is normal. There is no bruit on exam. Carotid upstroke is normal. There is no bruit. Chest exam reveals good air entry bilaterally. Heart exam reveals first and second heart sounds, irregular rhythm and a systolic murmur at the left lower sternal border. Abdomen is soft. Exam of extremities reveals bilateral moderate pitting edema. Discoloration and ulcer over the left foot toe. LABS: Labs show that the hemoglobin is 12.8, platelet count is 201. INR is 2.8. Potassium is 4.8, creatinine is 0.9. Tropes are negative. EKG shows atrial fibrillation with nonspecific ST-T wave changes and left axis deviation. ASSESSMENT: 1. Persistent atrial fibrillation with poorly controlled ventricular rate. 2. Bilateral lower extremity swelling with foot ulcer and possible foreign body in the left foot. 3. History of pulmonary embolism. 4. Diabetes. 5. Dyslipidemia. The patient had a venous duplex of the leg that showed DVT. An echocardiogram is pending at this time. I will continue the patient on Cardizem, add metoprolol 25 t.i.d. and continue the antibiotics. If patient is not to undergo any surgery for his leg, we should consider resuming Coumadin on him. His INR was therapeutic on his initial presentation. KIRAN / KAYLIN: [id number] /
[2019-08-16] MEDS: METOPROLOL TARTRATE 25 MG TAB PO SCH ×3 (12:30→20:49)
--- NOTE | 2019-08-16 12:46 | P.CNPUL ---
History of Present Illness Consult date: 08/16/19 Requesting physician: Shadia Alvarez Reason for consult: other (Left foot ulcer, sepsis, DVT, pulmonary embolism.) Chief complaint: Infected left foot, and left foot ulcer History of present illness: This is a 62-year-old white male with history of multiple medical problems including COPD, deep vein thrombosis, pulmonary embolism, diabetes, diabetic neuropathy, degenerative joint disease, patient had previous history of bilateral deep vein thromboses and pulmonary embolism, chronically on anti coagulations therapy/Coumadin. Patient has been followed recently at the wound care center by Dr. Naranjo for chronic left foot plantar ulcer, and yesterday the patient was noticing foul-smelling discharge coming from the left foot ulcer. He was told by his primary care physician that he may have a foreign body in the foot. Hence the patient came into the ER. While in the ER, patient had shortne ss of breath and weakness, he was noted to be in atrial fibrillation and RVR. Patient was admitted, placed on Cardizem drip, cardiology consult was initiated, patient was placed on heparin, although his INR was therapeutic. Venous Doppler came back positive for chronic left lower extremity deep vein thromboses. Patient is known to have a history of a [place] filter placement and history of bilateral stents in both lower extremities. Apparently the patient has been seen by vascular surgery in the past, considering the patient was felt to have atrial fibrillation with RVR, and considering his sepsis presentation, I was asked to see him on consultation and he was admitted to the ICU. Patient is a very poor historian, and it is not easy to maintain a Conversation with the Patient. He Gets Upset Very Easily and Extremely Poor Historian. Review of Systems ROS unobtainable: due to mental status Past Medical History Past Medical History: Asthma, COPD, CVA/TIA, Diabetes Mellitus, Deep Vein Thrombosis (DVT), GERD/Reflux, Hyperlipidemia, Hypertension, Neurologic Disorder, Osteoarthritis (OA), Pneumonia, Pulmonary Embolus (PE) Additional Past Medical History / Comment(s): MIGRAINES. " ANITICOAGULANT LUPUS". PNEUMOTHRORAX. PERIPHERAL EDEMA. History of Any Multi-Drug Resistant Organisms: None Reported Past Surgical History: Adenoidectomy, Appendectomy, Tonsillectomy Additional Past Surgical History / Comment(s): HAILE FILTER . VEIN STRIPPING. STENTS IN "PELVIC AREA" NOVEMBER 2004. Past Anesthesia/Blood Transfusion Reactions: No Reported Reaction Past Psychological History: No Psychological Hx Reported Additional Psychological History / Comment(s): TAKES CYMBALTA FOR CARPAL TUNNEL. Smoking Status: Current every day smoker Past Alcohol Use History: None Reported Past Drug Use History: None Reported - Past Family History Mother Additional Family Medical History / Comment(s): heart disease, peripheral vascular disease. Father Family Medical History: Unable to Obtain Medications and Allergies Home Medications Medication Instructions Recorded Confirmed Type Atorvastatin [Lipitor] 80 mg PO HS 01/09/14 08/16/19 History Celecoxib [CeleBREX] 200 mg PO QAM 01/09/14 08/16/19 History Pregabalin [Lyrica] 300 mg PO BID 01/09/14 08/16/19 History Topiramate [Topamax] 25 mg PO BID 01/09/14 08/16/19 History Warfarin Sodium [Coumadin] 6 mg PO MOTUWETHFRSA 01/09/14 08/16/19 History metFORMIN HCL [Glucophage] 500 mg PO BID 01/09/14 08/16/19 History oxyCODONE HCL/ACETAMINOPHEN 1 tab PO Q6HR PRN 01/09/14 08/16/19 History [Percocet 10-325 mg] Insulin Degludec [Tresiba 72 unit SQ HS 11/15/17 08/15/19 History Flextouch U-200] Lisinopril [Zestril] 20 mg PO DAILY 11/15/17 08/16/19 History Multivitamins, Thera [Multivitamin 1 tab PO DAILY 11/15/17 08/16/19 History (formulary)] Warfarin Sodium 9 mg PO AQUINO 05/10/18 08/16/19 History Budesonide-Formot 160-4.5 Mcg 2 puff INHALATION BID #1 inhaler 05/11/18 08/15/19 Rx [Symbicort 160-4.5 Mcg Inhaler] Albuterol Nebulized [Ventolin 2.5 mg INHALATION RT-QID PRN 08/15/19 08/16/19 History Nebulized] Docusate [Colace] 100 mg PO DAILY PRN 08/15/19 08/15/19 History Fluticasone Nasal [place] [Flonase 2 spr EA NOSTRIL DAILY 08/15/19 08/16/19 History Nasal [place]] Fluticasone/Umeclidin/Vilanter 1 puff INHALATION RT-DAILY 08/15/19 08/16/19 History [[place] Ellipta 100-62.5-25] Levofloxacin 750 mg PO DAILY 08/15/19 08/16/19 History Morphine Sulfate [Morphine Sulfate 30 mg PO Q8H 08/15/19 08/16/19 History ER] Nortriptyline [Pamelor] 50 mg PO HS 08/15/19 08/16/19 History Omeprazole [PriLOSEC] 20 mg PO DAILY 08/15/19 08/16/19 History Tiotropium [place] [Spiriva] 1 cap INHALATION DAILY 08/15/19 08/15/19 History diphenhydrAMINE [Benadryl] 25 mg PO DAILY 08/15/19 08/15/19 History Allergies Allergy/AdvReac Type Severity Reaction Status Date / Time baclofen Allergy Unknown Verified 08/16/19 09:07 Physical Exam Vitals: Vital Signs Temp Pulse Resp BP Pulse Ox 08/16/19 07:00 129 H 13 128/85 99 08/16/19 06:00 120 H 18 121/56 97 08/16/19 05:00 95 14 108/73 97 08/16/19 04:00 102 H 13 106/78 96 08/16/19 03:00 106 H 19 96/78 96 08/16/19 02:30 107 H 12 108/70 96 08/16/19 02:00 124 H 15 110/75 97 08/16/19 01:30 98.3 F 115 H 19 113/58 97 08/16/19 00:44 107 H 110/76 08/15/19 23:57 106 H 18 100/59 96 08/15/19 23:34 101 H 18 74/59 94 L 08/15/19 23:21 114 H 18 104/66 95 08/15/19 22:41 120 H 21 95/63 99 08/15/19 22:29 115 H 18 95/61 97 08/15/19 22:15 125 H 18 109/51 95 08/15/19 21:49 97.6 F 138 H 18 97/68 98 08/15/19 21:26 123 H 18 101/71 98 02/06/20 20:00 149 H 18 101/84 96 08/15/19 19:30 151 H 18 105/93 08/15/19 19:21 142 H 18 104/76 96 08/15/19 17:33 98.2 F 115 H 18 94/51 99 Intake and Output 08/15/19 08/16/19 08/16/19 22:59 06:59 14:59 Intake Total 380 244.633 Output Total 1000 Balance -620 244.633 Intake: IV 380 20 Sodium Chloride 0.9% 1, 380 20 000 ml @ 150 mls/hr IV . Q6H40M [facility] Rx#:[id number] Intake, IV Titration 224.633 Amount Heparin Sod,Pork in 0.45% 224.633 NaCl 25,000 unit In 0.45 % NaCl 1 250ml.bag @ 17. 792 UNITS/KG/HR 23 mls/hr IV .[id number] [facility] Rx#: [id number] Output: Urine 1000 Other: Voiding Method Urinal # Voids 1 0 Weight 129.274 kg 129.274 kg Physical Exam: Revealed a 64-year-old white male, easily agitated, in no form of respiratory distress. Head: Atraumatic normocephalic. HEENT:[Neck is supple.] [No neck masses.] [No thyromegaly.] [No JVD.] PERRLA, EOMI, no icterus. Chest: [Clear throughout, no crackles, no rhonchi, no wheezes.] Cardiac Exam: [Normal S1 and S2, no S3 gallop, no murmur.] Abdomen: [Soft, nontender, no megaly, no rebound, no guarding, normal bowel sounds.] Extremities: [Evidence of bilateral lower extremity edema. There is left lower extremity swelling and redness. A 2.0 cm plantar ulcer on the forefoot left. With yellow drainage noted from the plantar aspect of the left foot. The ulcer seems to be quite deep, and the drainage seems to be foul-smelling. Neurological Exam: Alert and oriented 3. Psychiatric: Irritable mood, blunt affect, normal mental status examination. However does not communicate easily, gets upset and agitated for no good reason. Seems unhappy with his condition. Results - Laboratory Findings CBC and BMP: 08/16/19 03:16 08/16/19 03:16 PT/INR, D-dimer PT 26.9 sec (9.0-12.0) H 08/16/19 03:16 INR 2.8 (<1.2) H 08/16/19 03:16 D-Dimer 0.64 mg/L FEU (<0.60) H 08/15/19 18:55 Abnormal lab findings: Abnormal Labs 08/15/19 08/15/19 08/15/19 18:55 18:55 18:55 RBC Hgb Hct Neutrophils # 8.0 H Lymphocytes # PT 21.4 H INR 2.2 H APTT 33.5 H D-Dimer 0.64 H Sodium 133 L Chloride Carbon Dioxide BUN 26 H Glucose 299 H POC Glucose (mg/dL) Calcium 8.2 L Total Protein 6.2 L Albumin 3.0 L HDL Cholesterol Urine Glucose (UA) 08/15/19 08/15/19 08/15/19 22:31 22:42 22:42 RBC 3.95 L Hgb 12.4 L Hct 37.3 L Neutrophils # Lymphocytes # 0.9 L PT INR APTT D-Dimer Sodium 135 L Chloride Carbon Dioxide BUN 21 H Glucose 224 H POC Glucose (mg/dL) Calcium 7.6 L Total Protein 6.2 L Albumin 2.9 L HDL Cholesterol Urine Glucose (UA) 1+ H 08/16/19 08/16/19 08/16/19 01:06 02:05 03:16 RBC 4.17 L Hgb 12.8 L Hct Neutrophils # Lymphocytes # 0.6 L PT INR APTT D-Dimer Sodium Chloride Carbon Dioxide BUN Glucose POC Glucose (mg/dL) 301 H 306 H Calcium Total Protein Albumin HDL Cholesterol Urine Glucose (UA) 08/16/19 08/16/19 08/16/19 03:16 03:16 05:32 RBC Hgb Hct Neutrophils # Lymphocytes # PT 26.9 H INR 2.8 H APTT D-Dimer Sodium Chloride 109 H Carbon Dioxide 21 L BUN 21 H Glucose 314 H POC Glucose (mg/dL) 274 H Calcium 8.0 L Total Protein Albumin 3.0 L HDL Cholesterol 21 L Urine Glucose (UA) 08/16/19 06:10 RBC Hgb Hct Neutrophils # Lymphocytes # PT INR APTT 173.9 H* D-Dimer Sodium Chloride Carbon Dioxide BUN Glucose POC Glucose (mg/dL) Calcium Total Protein Albumin HDL Cholesterol Urine Glucose (UA) - Diagnostic Findings Chest x-ray: image reviewed (Chest x-ray showed no evidence of active disease, atelectasis at the left base is noted.) Additional studies: X-rays of the left foot showed diffuse soft tissue edema and small 21 mm metallic foreign body situated within the plantar soft tissue between third and fourth toe proximal phalanges. Assessment and Plan Assessment: Impression: Diabetic foot ulcer, possible osteomyelitis involving the left foot. 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 Persistent atrial fibrillation with poorly controlled ventricular rate most likely secondary to chronic thromboembolic disease/pulmonary embolism. Type 2 diabetes. Dyslipidemia. Generalized anxiety disorder. Peripheral vessel occlusive disease. History of COPD which is presently inactive. History of a [place] filter placement. Recommendation: Antibiotics. Cardizem. Patient is on Cardizem drip as per cardiology. Resume bronchodilators. Infectious disease consultation. Vascular surgery consultation. I have a feeling the patient may require surgery/debridement, and possibly even amputation. Continue anticoagulation therapy. Dr. Naranjo to evaluate the patient. Will follow while in the ICU. Time with Patient: Greater than 30
[2019-08-16] MEDS ORDERED: LIDOCAINE 1% INJ 10MG/ML (20 ML MDV) ONE (12:52)
[2019-08-16] MEDS ORDERED: LIDOCAINE 1% INJ 10MG/ML (20 ML MDV) SQ ONE (13:13)
--- NOTE | 2019-08-16 13:58 | XR ---
EXAMINATION TYPE: XR chest 1V portable DATE OF EXAM: 08/16/2019 COMPARISON: Prior chest x-ray same date HISTORY: Status post central venous catheter placement TECHNIQUE: Single frontal view of the chest is obtained. FINDINGS: There is been interval placement of a left-sided PICC line, distal tip is near the level o f the cavoatrial junction. No other significant interval changes. Lung bases not included on exam. IMPRESSION: No evident complication status post PICC line placement.
--- NOTE | 2019-08-16 14:41 | IR ---
EXAMINATION TYPE: IR cvc insert >=5 years DATE OF EXAM: 08/16/2019 HISTORY: Sepsis, infection FINDINGS: Maximal barrier technique was utilized. Hand hygiene obtained with soap and water. The ski n overlying the left basilic vein was localized with ultrasound and noted to be compressible and mcintyre nt by ultrasound. An ultrasound image was obtained and submitted on patient's chart. Sterile techniq ue utilized with the ultrasound machine. The skin overlying was prepped and draped and Lidocaine used for local anesthesia. A skin brooks was made with a scalpel. Access was gained to the vein under dir ect ultrasound guidance with a 21-gauge needle and a 0.018 inch wire was advanced. Access site was d ilated with a peel-away sheath and the catheter tailored to length. Catheter advanced centrally and a post procedure chest x-ray verified placement with the tip in the superior vena cava. Catheter was fixed to the skin and a sterile dressing placed. Hemostasis achieved and the catheter was aspirated and flushed with sterile saline. The patient remained in stable condition. IMPRESSION: STATUS POST ULTRASOUND GUIDED PICC LINE PLACEMENT, READY FOR USE. THIS PROCEDURE WAS PER FORMED BY THE UNDERSIGNED.
[2019-08-16 16:36] LABS: Glucose,Whole Blood 342 mg/dL (75-99)
--- NOTE | 2019-08-16 17:59 | P.HPIM ---
History of Present Illness H&P Date: 08/16/19 Chief Complaint: Cellulitis and infected left foot ulcer 62-year-old white male with history of COPD, deep vein thrombosis/pulmonary embolism, diabetes/ neuropathy, degenerative joint disease, patient had previous history of bilateral deep vein thromboses and pulmonary embolism, chronically on anticoagulations therapy/Coumadin. Patient has been followed recently at the wound care center by Dr. Naranjo for chronic left foot plantar ulcer, and yesterday the patient was noticing foul-smelling discharge coming from the left foot ulcer. He was told by his primary care physician that he may have a foreign body in the foot. Hence the patient came into the ER. While in the ER, patient had shortness of breath and weakness, he was noted to be in atrial fibrillation and RVR. Patient was admitted, placed on Cardizem drip, cardiology consult was initiated, patient was placed on heparin, although his INR was therapeutic. Venous Doppler came back positive for chronic left lower extremity deep vein thromboses. Patient is known to have a history of a [place] filter placement and history of bilateral stents in both lower extremities. Apparently the patient has been seen by vascular surgery in the past, considering the patient was felt to have atrial fibrillation with RVR, and considering his sepsis presentation, I was asked to see him on consultation and he was admitted to the ICU. Past Medical History Past Medical History: Asthma, COPD, CVA/TIA, Diabetes Mellitus, Deep Vein Thrombosis (DVT), GERD/Reflux, Hyperlipidemia, Hypertension, Neurologic Disorder, Osteoarthritis (OA), Pneumonia, Pulmonary Embolus (PE) Additional Past Medical History / Comment(s): MIGRAINES. " ANITICOAGULANT LUPUS" . PNEUMOTHRORAX. PERIPHERAL EDEMA. History of Any Multi-Drug Resistant Organisms: None Reported Past Surgical History: Adenoidectomy, Appendectomy, Tonsillectomy Additional Past Surgical History / Comment(s): HAILE FILTER . VEIN STRIPPING. STENTS IN "PELVIC AREA" NOVEMBER 2004. Past Anesthesia/Blood Transfusion Reactions: No Reported Reaction Past Psychological History: No Psychological Hx Reported Additional Psychological History / Comment(s): TAKES CYMBALTA FOR CARPAL TUNNEL. Smoking Status: Current every day smoker Past Alcohol Use History: None Reported Past Drug Use History: None Reported - Past Family History Mother Additional Family Medical History / Comment(s): heart disease, peripheral vascular disease. Father Family Medical History: Unable to Obtain Medications and Allergies Home Medications Medication Instructions Recorded Confirmed Type Atorvastatin [Lipitor] 80 mg PO HS 01/09/14 08/16/19 History Celecoxib [CeleBREX] 200 mg PO QAM 01/09/14 08/16/19 History Pregabalin [Lyrica] 300 mg PO BID 01/09/14 08/16/19 History Topiramate [Topamax] 25 mg PO BID 01/09/14 08/16/19 History Warfarin Sodium [Coumadin] 6 mg PO MOTUWETHFRSA 01/09/14 08/16/19 History metFORMIN HCL [Glucophage] 500 mg PO BID 01/09/14 08/16/19 History oxyCODONE HCL/ACETAMINOPHEN 1 tab PO Q6HR PRN 01/09/14 08/16/19 History [Percocet 10-325 mg] Insulin Degludec [Tresiba 72 unit SQ HS 11/15/17 08/15/19 History Flextouch U-200] Lisinopril [Zestril] 20 mg PO DAILY 11/15/17 08/16/19 History Multivitamins, Thera [Multivitamin 1 tab PO DAILY 11/15/17 08/16/19 History (formulary)] Warfarin Sodium 9 mg PO AQUINO 05/10/18 08/16/19 History Budesonide-Formot 160-4.5 Mcg 2 puff INHALATION BID #1 inhaler 05/11/18 08/15/19 Rx [Symbicort 160-4.5 Mcg Inhaler] Albuterol Nebulized [Ventolin 2.5 mg INHALATION RT-QID PRN 08/15/19 08/16/19 History Nebulized] Docusate [Colace] 100 mg PO DAILY PRN 08/15/19 08/15/19 History Fluticasone Nasal [place] [Flonase 2 spr EA NOSTRIL DAILY 08/15/19 08/16/19 Histo ry Nasal [place]] Fluticasone/Umeclidin/Vilanter 1 puff INHALATION RT-DAILY 08/15/19 08/16/19 H istory [[place] Ellipta 100-62.5-25] Levofloxacin 750 mg PO DAILY 08/15/19 08/16/19 History Morphine Sulfate [Morphine Sulfate 30 mg PO Q8H 08/15/19 08/16/19 History ER] Nortriptyline [Pamelor] 50 mg PO HS 08/15/19 08/16/19 History Omeprazole [PriLOSEC] 20 mg PO DAILY 08/15/19 08/16/19 History Tiotropium [place] [Spiriva] 1 cap INHALATION DAILY 08/15/19 08/15/19 History diphenhydrAMINE [Benadryl] 25 mg PO DAILY 08/15/19 08/15/19 History Allergies Allergy/AdvReac Type Severity Reaction Status Date / Time baclofen Allergy Unknown Verified 08/16/19 09:07 Physical Exam Vitals: Vital Signs Temp Pulse Resp BP Pulse Ox 08/16/19 07:00 129 H 13 128/85 99 08/16/19 06:00 120 H 18 121/56 97 08/16/19 05:00 95 14 108/73 97 08/16/19 04:00 102 H 13 106/78 96 08/16/19 03:00 106 H 19 96/78 96 08/16/19 02:30 107 H 12 108/70 96 08/16/19 02:00 124 H 15 110/75 97 08/16/19 01:30 98.3 F 115 H 19 113/58 97 08/16/19 00:44 107 H 110/76 08/15/19 23:57 106 H 18 100/59 96 08/15/19 23:34 101 H 18 74/59 94 L 08/15/19 23:21 114 H 18 104/66 95 08/15/19 22:41 120 H 21 95/63 99 08/15/19 22:29 115 H 18 95/61 97 08/15/19 22:15 125 H 18 109/51 95 08/15/19 21:49 97.6 F 138 H 18 97/68 98 08/15/19 21:26 123 H 18 101/71 98 08/15/19 20:00 149 H 18 101/84 96 08/15/19 19:30 151 H 18 105/93 08/15/19 19:21 142 H 18 104/76 96 08/15/19 17:33 98.2 F 115 H 18 94/51 99 Intake and Output 08/15/19 08/16/19 08/16/19 22:59 06:59 14:59 Intake Total 380 244.633 Output Total 1000 Balance -620 244.633 Intake: IV 380 20 Sodium Chloride 0.9% 1, 380 20 000 ml @ 150 mls/hr IV . Q6H40M STA Rx#:[id number] Intake, IV Titration 224.633 Amount Heparin Sod,Pork in 0.45% 224.633 NaCl 25,000 unit In 0.45 % NaCl 1 250ml.bag @ 17. 792 UNITS/KG/HR 23 mls/hr IV .[id number] [facility] Rx#: [id number] Output: Urine 1000 Other: Voiding Method Urinal # Voids 1 0 Weight 129.274 kg 129.274 kg Head: Atraumatic normocephalic. HEENT:[Neck is supple.] [No neck masses.] [No thyromegaly.] [No JVD.] PERRLA, EOMI, no icterus. Chest: [Clear throughout, no crackles, no rhonchi, no wheezes.] Cardiac Exam: [Normal S1 and S2, no S3 gallop, no murmur.] Abdomen: [Soft, nontender, no megaly, no rebound, no guarding, normal bowel sounds.] Extremities: [Evidence of bilateral lower extremity edema. There is left lower extremity swelling and redness. A 2.0 cm plantar ulcer on the forefoot left. With yellow drainage noted from the plantar aspect of the left foot. The ulcer seems to be quite deep, and the drainage seems to be foul-smelling. Neurological Exam: Alert and oriented 3. Results CBC & Chem 7: 08/16/19 03:16 08/16/19 03:16 Labs: Abnormal Lab Results - Last 24 Hours (Table) 08/15/19 08/15/19 08/15/19 Range/Units 18:55 18:55 18:55 RBC (4.30-5.90) m/uL Hgb (13.0-17.5) gm/dL Hct (39.0-53.0) % Neutrophils # 8.0 H (1.3-7.7) k/uL Lymphocytes # (1.0-4.8) k/uL PT 21.4 H (9.0-12.0) sec INR 2.2 H (<1.2) APTT 33.5 H (22.0-30.0) sec D-Dimer 0.64 H (<0.60) mg/L FEU Sodium 133 L (137-145) mmol/L Chloride (98-107) mmol/L Carbon Dioxide (22-30) mmol/L BUN 26 H (9-20) mg/dL Glucose 299 H (74-99) mg/dL POC Glucose (mg/dL) (75-99) mg/dL Calcium 8.2 L (8.4-10.2) mg/dL Total Protein 6.2 L (6.3-8.2) g/dL Albumin 3.0 L (3.5-5.0) g/dL HDL Cholesterol (40-60) mg/dL Urine Glucose (UA) (Negative) 08/15/19 08/15/19 08/15/19 Range/Units 22:31 22:42 22:42 RBC 3.95 L (4.30-5.90) m/uL Hgb 12.4 L (13.0-17.5) gm/dL Hct 37.3 L (39.0-53.0) % Neutrophils # (1.3-7.7) k/uL Lymphocytes # 0.9 L (1.0-4.8) k/uL PT (9.0-12.0) sec INR (<1.2) APTT (22.0-30.0) sec D-Dimer (<0.60) mg/L FEU Sodium 135 L (137-145) mmol/L Chloride (98-107) mmol/L Carbon Dioxide (22-30) mmol/L BUN 21 H (9-20) mg/dL Glucose 224 H (74-99) mg/dL POC Glucose (mg/dL) (75-99) mg/dL Calcium 7.6 L (8.4-10.2) mg/dL Total Protein 6.2 L (6.3-8.2) g/dL Albumin 2.9 L (3.5-5.0) g/dL HDL Cholesterol (40-60) mg/dL Urine Glucose (UA) 1+ H (Negative) 08/16/19 08/16/19 08/16/19 Range/Units 01:06 02:05 03:16 RBC 4.17 L (4.30-5.90) m/uL Hgb 12.8 L (13.0-17.5) gm/dL Hct (39.0-53.0) % Neutrophils # (1.3-7.7) k/uL Lymphocytes # 0.6 L (1.0-4.8) k/uL PT (9.0-12.0) sec INR (<1.2) APTT (22.0-30.0) sec D-Dimer (<0.60) mg/L FEU Sodium (137-145) mmol/L Chloride (98-107) mmol/L Carbon Dioxide (22-30) mmol/L BUN (9-20) mg/dL Glucose (74-99) mg/dL POC Glucose (mg/dL) 301 H 306 H (75-99) mg/dL Calcium (8.4-10.2) mg/dL Total Protein (6.3-8.2) g/dL Albumin (3.5-5.0) g/dL HDL Cholesterol (40-60) mg/dL Urine Glucose (UA) (Negative) 08/16/19 08/16/19 08/16/19 Range/Units 03:16 03:16 05:32 RBC (4.30-5.90) m/uL Hgb (13.0-17.5) gm/dL Hct (39.0-53.0) % Neutrophils # (1.3-7.7) k/uL Lymphocytes # (1.0-4.8) k/uL PT 26.9 H (9.0-12.0) sec INR 2.8 H (<1.2) APTT (22.0-30.0) sec D-Dimer (<0.60) mg/L FEU Sodium (137-145) mmol/L Chloride 109 H (98-107) mmol/L Carbon Dioxide 21 L (22-30) mmol/L BUN 21 H (9-20) mg/dL Glucose 314 H (74-99) mg/dL POC Glucose (mg/dL) 274 H (75-99) mg/dL Calcium 8.0 L (8.4-10.2) mg/dL Total Protein (6.3-8.2) g/dL Albumin 3.0 L (3.5-5.0) g/dL HDL Cholesterol 21 L (40-60) mg/dL Urine Glucose (UA) (Negative) 08/16/19 Range/Units 06:10 RBC (4.30-5.90) m/uL Hgb (13.0-17.5) gm/dL Hct (39.0-53.0) % Neutrophils # (1.3-7.7) k/uL Lymphocytes # (1.0-4.8) k/uL PT (9.0-12.0) sec INR (<1.2) APTT 173.9 H* (22.0-30.0) sec D-Dimer (<0.60) mg/L FEU Sodium (137-145) mmol/L Chloride (98-107) mmol/L Carbon Dioxide (22-30) mmol/L BUN (9-20) mg/dL Glucose (74-99) mg/dL POC Glucose (mg/dL) (75-99) mg/dL Calcium (8.4-10.2) mg/dL Total Protein (6.3-8.2) g/dL Albumin (3.5-5.0) g/dL HDL Cholesterol (40-60) mg/dL Urine Glucose (UA) (Negative) Thrombosis Risk Factor Assmnt - Choose All That Apply Any of the Below Risk Factors Present?: Yes Each Factor Represents 1 point: Abnormal pulmonary function (COPD), Medical pt on bed rest, Obesity (BMI >25), Swollen legs (current) Other Risk Factors: Yes Each Risk Factor Represents 2 Points: Age 61-74 years, Patient confined to bed Each Risk Factor Represents 3 Points: History of DVT/PE, Positive Lupus Anticoagulant Other congenital or acquired thrombophilia - If yes, enter type in comment: No Thrombosis Risk Factor Assessment Total Risk Factor Score: 14 Thrombosis Risk Factor Assessment Level: High Risk Assessment and Plan Assessment: 1. Diabetic foot ulcer, possible osteomyelitis involving the left foot - Patient remains on IV antibiotics in form of vancomycin and Unasyn; vascular surgery is consulted for possible surgical debridement versus amputation; ID is consulted to tailor antibiotic therapy 2. 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; patient has history of [place] filter placement; patient remains on anticoagulation therapy 3. Persistent atrial fibrillation with poorly controlled ventricular rate most likely secondary to chronic thromboembolic disease/pulmonary embolism; patient is currently being controlled on IV Cardizem infusion and beta blockers; remains on anticoagulation therapy. 4. Type 2 diabetes; Accu-Cheks every before meals and at bedtime with insulin sliding scale along with NovoLog 10 units subcu every before meals and at bedtime. 5. Generalized anxiety disorder; lorazepam when necessary. 6. COPD ; not in exacerbation CODE STATUS; full code
[2019-08-16] MEDS: AMPICILLIN-SULBACTAM 3 GM in SODIUM CHLORIDE 0.9% 100 ML IVPB SCH ×2 (18:34→23:09)
[2019-08-16 20:29] LABS: Glucose,Whole Blood 366 mg/dL (75-99)
[2019-08-16] MEDS ORDERED: INSULIN DETEMIR (LEVEMIR) 100 UNIT/ML SYR SQ SCH (21:00)
--- NOTE | 2019-08-16 21:38 | P.CONS ---
History of Present Illness - Reason for Consult Consult date: 08/16/19 left diabetic foot ulcer Requesting physician: Bret Royal - Chief Complaint left foot non healing ulcer and draiange x days - History of Present Illness Patient is a 64-year-old male with a past medical history of mechanical diabetes diabetic with neuropathy in this patient who has been dealing with a wound on the plantar aspect of his left foot at the base of the fourth toe that is been going on for almost a month patient has been following with Dr. Naranjo at [facility] [place] and has been treated with multiple modalities yesterday the patient was noticed to having increasing foul-smelling drainage from his left foot and the patient was advised to go to the hospital, patient do have underlying diabetic neuropathy has denies significant sensation for the same reason denies significant pain to the left foot wound area that has been purulent drainage has been moderate in amount with surrounding swelling and redness which is extending to the left leg the patient did have some chills but denies high-grade fever denies having any chest pain shortness of breath or cough no nausea vomiting no abdominal pain no diarrhea patient on arrival to the hospital was afebrile however slightly tachycardic with heart rate 120s the patient did have a normal white count and the kidney function is normal as well blood cultures obtained currently pending patient did have x-rays of her foot which did shows 2 to 1 mm metallic foreign body within the plantar soft tissues between the third and fourth toe proximal phalanges patient has been admitted to the hospital he was started on vancomycin and Zosyn infectious disease was consulted for further recommendation about antibiotic therapy. Review of Systems Positive point has been mentioned in HPI rest of the systems are negative Past Medical History Past Medical History: Asthma, COPD, CVA/TIA, Diabetes Mellitus, Deep Vein Thrombosis (DVT), GERD/Reflux, Hyperlipidemia, Hypertension, Neurologic Disorder, Osteoarthritis (OA), Pneumonia, Pulmonary Embolus (PE) Additional Past Medical History / Comment(s): MIGRAINES. " ANITICOAGULANT LUPUS". PNEUMOTHRORAX. PERIPHERAL EDEMA. History of Any Multi-Drug Resistant Organisms: None Reported Past Surgical History: Adenoidectomy, Appendectomy, Tonsillectomy Additional Past Surgical History / Comment(s): HAILE FILTER . VEIN STRIPPING. STENTS IN "PELVIC AREA" NOVEMBER 2004. Past Anesthesia/Blood Transfusion Reactions: No Reported Reaction Past Psychological History: No Psychological Hx Reported Additional Psychological History / Comment(s): TAKES CYMBALTA FOR CARPAL TUNNEL. Smoking Status: Current every day smoker Past Alcohol Use History: None Reported Past Drug Use History: None Reported - Past Family History Mother Additional Family Medical History / Comment(s): heart disease, peripheral vascular disease. Father Family Medical History: Unable to Obtain Medications and Allergies Home Medications Medication Instructions Recorded Confirmed Type Atorvastatin [Lipitor] 80 mg PO HS 01/09/14 08/16/19 History Celecoxib [CeleBREX] 200 mg PO QAM 01/09/14 08/16/19 History Pregabalin [Lyrica] 300 mg PO BID 01/09/14 08/16/19 History Topiramate [Topamax] 25 mg PO BID 01/09/14 08/16/19 History Warfarin Sodium [Coumadin] 6 mg PO MOTUWETHFRSA 01/09/14 08/16/19 History metFORMIN HCL [Glucophage] 500 mg PO BID 01/09/14 08/16/19 History oxyCODONE HCL/ACETAMINOPHEN 1 tab PO Q6HR PRN 01/09/14 08/16/19 History [Percocet 10-325 mg] Insulin Degludec [Tresiba 72 unit SQ HS 11/15/17 08/15/19 History Flextouch U-200] Lisinopril [Zestril] 20 mg PO DAILY 11/15/17 08/16/19 History Multivitamins, Thera [Multivitamin 1 tab PO DAILY 11/15/17 08/16/19 History (formulary)] Warfarin Sodium 9 mg PO AQUINO 05/10/18 08/16/19 History Budesonide-Formot 160-4.5 Mcg 2 puff INHALATION BID #1 inhaler 05/11/18 08/15/19 Rx [Symbicort 160-4.5 Mcg Inhaler] Albuterol Nebulized [Ventolin 2.5 mg INHALATION RT-QID PRN 08/15/19 08/16/19 History Nebulized] Docusate [Colace] 100 mg PO DAILY PRN 08/15/19 08/15/19 History Fluticasone Nasal [place] [Flonase 2 spr EA NOSTRIL DAILY 08/15/19 08/16/19 History Nasal [place]] Fluticasone/Umeclidin/Vilanter 1 puff INHALATION RT-DAILY 08/15/19 08/16/19 History [Trelegy Ellipta 100-62.5-25] Levofloxacin 750 mg PO DAILY 08/15/19 08/16/19 History Morphine Sulfate [Morphine Sulfate 30 mg PO Q8H 08/15/19 08/16/19 History ER] Nortriptyline [Pamelor] 50 mg PO HS 08/15/19 08/16/19 History Omeprazole [PriLOSEC] 20 mg PO DAILY 08/15/19 08/16/19 History Tiotropium [place] [Spiriva] 1 cap INHALATION DAILY 08/15/19 08/15/19 History diphenhydrAMINE [Benadryl] 25 mg PO DAILY 08/15/19 08/15/19 History Allergies Allergy/AdvReac Type Severity Reaction Status Date / Time baclofen Allergy Unknown Verified 08/16/19 09:07 Physical Exam Vitals: Vital Signs Temp Pulse Resp BP Pulse Ox 08/16/19 15:00 122 H 16 90 L 08/16/19 14:00 125 H 11 L 92 L 08/16/19 13:00 122 H 7 L 118/93 90 L 08/16/19 12:00 97.7 F 124 H 16 146/101 95 08/16/19 11:00 128 H 15 146/101 92 L 08/16/19 10:00 126 H 18 120/79 93 L 08/16/19 09:00 128 H 16 155/57 89 L 08/16/19 08:00 98.0 F 126 H 33 H 122/88 90 L 08/16/19 07:00 129 H 13 128/85 99 08/16/19 06:00 120 H 18 121/56 97 08/16/19 05:00 95 14 108/73 97 08/16/19 04:00 102 H 13 106/78 96 08/16/19 03:00 106 H 19 96/78 96 08/16/19 02:30 107 H 12 108/70 96 08/16/19 02:00 124 H 15 110/75 97 08/16/19 01:30 98.3 F 115 H 19 113/58 97 08/16/19 00:44 107 H 110/76 08/15/19 23:57 106 H 18 100/59 96 08/15/19 23:34 101 H 18 74/59 94 L 08/15/19 23:21 114 H 18 104/66 95 08/15/19 22:41 120 H 21 95/63 99 08/15/19 22:29 115 H 18 95/61 97 08/15/19 22:15 125 H 18 109/51 95 08/15/19 21:49 97.6 F 138 H 18 97/68 98 08/15/19 21:26 123 H 18 101/71 98 08/15/19 20:00 149 H 18 101/84 96 08/15/19 19:30 151 H 18 105/93 08/15/19 19:21 142 H 18 104/76 96 08/15/19 17:33 98.2 F 115 H 18 94/51 99 Intake and Output 08/16/19 08/16/19 08/16/19 06:59 14:59 22:59 Intake Total 380 364.633 Output Total 1000 700 Balance -620 -335.367 Intake: IV 380 140 Sodium Chloride 0.9% 1, 380 140 000 ml @ 150 mls/hr IV . Q6H40M [facility] Rx#:[id number] Intake, IV Titration 224.633 Amount Heparin Sod,Pork in 0.45% 224.633 NaCl 25,000 unit In 0.45 % NaCl 1 250ml.bag @ 17. 792 UNITS/KG/HR 23 mls/hr IV .[id number] [facility] Rx#: [id number] Output: Urine 1000 700 Other: Voiding Method Urinal # Voids 1 0 Weight 129.274 kg 129.274 kg GENERAL DESCRIPTION: Middle-aged male lying in bed, no distress. No tachypnea or accessory muscle of respiration use. HEENT: Shows Pallor , no scleral icterus. Oral mucous membrane is dry. NECK: Trachea central, no thyromegaly. LUNGS: Unlabored breathing. Clear to auscultation anteriorly. No wheeze or crackle. HEART: S1, S2, regular rate and rhythm. ABDOMEN: Soft, no tenderness , guarding or rigidity EXTREMITIES: Mild swelling both lower extremity left greater than right patient did have a wound at the base of fourth toe on the plantar aspect in this patient who did have purulent drainage the wound was probing down to the bone sKIN: No rash, no masses palpable. NEUROLOGICAL: The patient is awake, alert, oriented x3, mood and affect normal. Results CBC & Chem 7: 08/16/19 03:16 08/16/19 03:16 Labs: Abnormal Lab Results - Last 24 Hours (Table) 08/15/19 08/15/19 08/15/19 Range/Units 18:55 18:55 18:55 RBC (4.30-5.90) m/uL Hgb (13.0-17.5) gm/dL Hct (39.0-53.0) % Neutrophils # 8.0 H (1.3-7.7) k/uL Lymphocytes # (1.0-4.8) k/uL PT 21.4 H (9.0-12.0) sec INR 2.2 H (<1.2) APTT 33.5 H (22.0-30.0) sec D-Dimer 0.64 H (<0.60) mg/L FEU Sodium 133 L (137-145) mmol/L Chloride (98-107) mmol/L Carbon Dioxide (22-30) mmol/L BUN 26 H (9-20) mg/dL Glucose 299 H (74-99) mg/dL POC Glucose (mg/dL) (75-99) mg/dL Calcium 8.2 L (8.4-10.2) mg/dL Total Protein 6.2 L (6.3-8.2) g/dL Albumin 3.0 L (3.5-5.0) g/dL HDL Cholesterol (40-60) mg/dL Urine Glucose (UA) (Negative) 08/15/19 08/15/19 08/15/19 Range/Units 22:31 22:42 22:42 RBC 3.95 L (4.30-5.90) m/uL Hgb 12.4 L (13.0-17.5) gm/dL Hct 37.3 L (39.0-53.0) % Neutrophils # (1.3-7.7) k/uL Lymphocytes # 0.9 L (1.0-4.8) k/uL PT (9.0-12.0) sec INR (<1.2) APTT (22.0-30.0) sec D-Dimer (<0.60) mg/L FEU Sodium 135 L (137-145) mmol/L Chloride (98-107) mmol/L Carbon Dioxide (22-30) mmol/L BUN 21 H (9-20) mg/dL Glucose 224 H (74-99) mg/dL POC Glucose (mg/dL) (75-99) mg/dL Calcium 7.6 L (8.4-10.2) mg/dL Total Protein 6.2 L (6.3-8.2) g/dL Albumin 2.9 L (3.5-5.0) g/dL HDL Cholesterol (40-60) mg/dL Urine Glucose (UA) 1+ H (Negative) 08/16/19 08/16/19 08/16/19 Range/Units 01:06 02:05 03:16 RBC 4.17 L (4.30-5.90) m/uL Hgb 12.8 L (13.0-17.5) gm/dL Hct (39.0-53.0) % Neutrophils # (1.3-7.7) k/uL Lymphocytes # 0.6 L (1.0-4.8) k/uL PT (9.0-12.0) sec INR (<1.2) APTT (22.0-30.0) sec D-Dimer (<0.60) mg/L FEU Sodium (137-145) mmol/L Chloride (98-107) mmol/L Carbon Dioxide (22-30) mmol/L BUN (9-20) mg/dL Glucose (74-99) mg/dL POC Glucose (mg/dL) 301 H 306 H (75-99) mg/dL Calcium (8.4-10.2) mg/dL Total Protein (6.3-8.2) g/dL Albumin (3.5-5.0) g/dL HDL Cholesterol (40-60) mg/dL Urine Glucose (UA) (Negative) 08/16/19 08/16/19 08/16/19 Range/Units 03:16 03:16 05:32 RBC (4.30-5.90) m/uL Hgb (13.0-17.5) gm/dL Hct (39.0-53.0) % Neutrophils # (1.3-7.7) k/uL Lymphocytes # (1.0-4.8) k/uL PT 26.9 H (9.0-12.0) sec INR 2.8 H (<1.2) APTT (22.0-30.0) sec D-Dimer (<0.60) mg/L FEU Sodium (137-145) mmol/L Chloride 109 H (98-107) mmol/L Carbon Dioxide 21 L (22-30) mmol/L BUN 21 H (9-20) mg/dL Glucose 314 H (74-99) mg/dL POC Glucose (mg/dL) 274 H (75-99) mg/dL Calcium 8.0 L (8.4-10.2) mg/dL Total Protein (6.3-8.2) g/dL Albumin 3.0 L (3.5-5.0) g/dL HDL Cholesterol 21 L (40-60) mg/dL Urine Glucose (UA) (Negative) 08/16/19 08/16/19 Range/Units 06:10 14:22 RBC (4.30-5.90) m/uL Hgb (13.0-17.5) gm/dL Hct (39.0-53.0) % Neutrophils # (1.3-7.7) k/uL Lymphocytes # (1.0-4.8) k/uL PT (9.0-12.0) sec INR (<1.2) APTT 173.9 H* 57.6 H (22.0-30.0) sec D-Dimer (<0.60) mg/L FEU Sodium (137-145) mmol/L Chloride (98-107) mmol/L Carbon Dioxide (22-30) mmol/L BUN (9-20) mg/dL Glucose (74-99) mg/dL POC Glucose (mg/dL) (75-99) mg/dL Calcium (8.4-10.2) mg/dL Total Protein (6.3-8.2) g/dL Albumin (3.5-5.0) g/dL HDL Cholesterol (40-60) mg/dL Urine Glucose (UA) (Negative) Assessment and Plan Assessment: patient with a diabetic foot ulcer left leg with purulent drainage and the wound is probing down to the bone concern is likely for underlying osteomyelitis in view of underlying diabetes will need to cover for both gram-positive as well as gram-negative pathogen x-ray did shows foreign body for the patient benefit from podiatry evaluation and debridement and removal of the foreign body as well as deep cultures (1) Diabetic foot ulcer Current Visit: Yes Status: Acute Code(s): E11.621 - TYPE 2 DIABETES MELLITUS WITH FOOT ULCER; L97.509 - NON-PRESSURE CHRONIC ULCER OTH PRT UNSP FOOT W UNSP SEVERITY SNOMED Code(s): 157643708 (2) Left leg cellulitis Current Visit: Yes Status: Acute Code(s): L03.116 - CELLULITIS OF LEFT LOWER LIMB SNOMED Code(s): 287698711 (3) Osteomyelitis Current Visit: No Status: Acute Code(s): M86.9 - OSTEOMYELITIS, UNSPECIFIED SNOMED Code(s): 07866143 Plan: 1-vancomycin pharmacy to dose her with a target trough of 15 while watching her kidney function and Vanco trough closely. 2-discontinue Zosyn and add Unasyn 3 g every 6 hours to cover for the gram- negative and anaerobes 3-wound culture both aerobic and anaerobic were obtained 4-dry protective dressing to the wound base till evaluated by surgery We will follow on clinical condition and cultures to further adjust medication if needed Thank you for this consultation we will follow the patient along with you Time with Patient: Greater than 30
[2019-08-16 22:03] LABS: Hemoglobin A1C 8.9 % (4.0-6.0)
[2019-08-16 23:22] LABS: Glucose,Whole Blood 357 mg/dL (75-99)
[2019-08-17] MEDS: HEPARIN SOD,PORK IN 0.45% NACL 25,000 UNIT in 0.45% NACL 1 250ML.BAG IV SCH ×2 (00:48→17:34)
[2019-08-17] MEDS: VANCOMYCIN 2,000 MG in SODIUM CHLORIDE 0.9% 500 ML 500 ML IVPB SCH ×2 (03:25→16:32)
[2019-08-17] MEDS: AMPICILLIN-SULBACTAM 3 GM in SODIUM CHLORIDE 0.9% 100 ML IVPB SCH ×4 (05:35→23:19)
[2019-08-17] MEDS: methylPREDNISolone SOD SUCCI 125 MG/2 ML VIAL IV SCH ×4 (05:35→23:02)
[2019-08-17 05:44] LABS: Basophils % (A) 0 %; Eosinophils % (A) 0 %; HCT 39.9 % (39.0-53.0); HGB 12.9 gm/dL (13.0-17.5); Lymphocytes % (A) 8 %; MCH 30.8 pg (25.0-35.0); MCHC 32.2 g/dL (31.0-37.0); MCV 95.6 fL (80.0-100.0); Mean Platelet Volume 8.3; Monocytes # (A) 0.3 k/uL (0-1.0); Monocytes % (A) 3 %; Neutrophils # (A) 10.6 k/uL (1.3-7.7); Neutrophils % (A) 88 %; Platelet Count 283 k/uL (150-450); RBC 4.17 m/uL (4.30-5.90); RDW 14.1 % (11.5-15.5); WBC 12.1 k/uL (3.8-10.6)
[2019-08-17 06:07] LABS: INR 2.5 (<1.2); Partial Thromboplastin Time 60.3 sec (22.0-30.0); Prothrombin Time 23.9 sec (9.0-12.0)
[2019-08-17 06:45] LABS: African American GFR (CKD) >90 (>60 ml/min/1.73 sqM); Anion Gap 7 mmol/L; Blood Urea Nitrogen 28 mg/dL (9-20); Calcium 8.3 mg/dL (8.4-10.2); Carbon Dioxide 24 mmol/L (22-30); Chloride 107 mmol/L (98-107); Glucose 273 mg/dL (74-99); Non-African American GFR(CKD) 89 (>60 ml/min/1.73 sqM); Potassium 5.2 mmol/L (3.5-5.1); Sodium 138 mmol/L (137-145)
[2019-08-17 06:51] LABS: Glucose,Whole Blood 280 mg/dL (75-99)
[2019-08-17] MEDS: INSULIN ASPART (NovoLOG) 100 UNIT/ML VIAL SQ SCH ×8 (06:58→20:59)
[2019-08-17] MEDS: PANTOPRAZOLE 40 MG TABLET PO SCH (06:59)
[2019-08-17] MEDS: ASPIRIN 325 MG TAB PO SCH (08:52)
[2019-08-17] MEDS: METOPROLOL TARTRATE 25 MG TAB PO SCH (08:53)
[2019-08-17] MEDS: PREGABALIN 100 MG CAP PO SCH ×2 (08:53→20:58)
[2019-08-17] MEDS: oxyCODONE-APAP 10-325MG 1 EACH TAB PO PRN (08:54)
--- NOTE | 2019-08-17 09:05 | P.CNNES ---
History of Present Illness Consult date: 08/16/19 Reason for Consult: AMS History of Present Illness: HISTORY OF PRESENT ILLNESS: Thank you for allowing me to evaluate Mr. Checo Quijano. Mr. Quijano is a 64 year-old man with PMhx of asthma, COPD, DM, DVT/PE on Coumadin, HLD. HTN, osteoarthritis, migraines, stroke/TIA, presented to [facility] with complaints of LLE foot ulcer, consulting Neurology for AMS. Patient has no complaints at this time. Per RN, patient had an episode of confusion and unresponsiveness, not clear how long but was not for a long time. At the time, infection or presence of DVT was unknown. Patient at this time denies any headache, nausea, vomiting, dizziness, chest pain, SOB. Patient reports significant pain in his LLE and numbness in both legs, which has been present for a long time. Of note, patient was found with a.fib with RVR, which was thought a newly found paroxysmal episode in the setting of infection, but per RN, had stated that patient does have a history of a.fib. PAST MEDICAL HISTORY: asthma, COPD, DM, DVT/PE on Coumadin, HLD. HTN, osteoarthritis, migraines, stroke/TIA, ?a.fib PAST SURGICAL HISTORY: adenoidectomy, appendectomy, tonsillectomy, stents in "pelvic area" placed in 2004 HOME MEDICATIONS: Metformin, lyrica, atorvastatin, topamax 25mg BID, Celebrex, Coumadin, lisinopril, MVT, insulin, symbicort, benadryl, omeprazole, nortripytline 50mg qhs, morphine sulfate, levofloxacin ALLERGIES: Baclofen SOCIAL HISTORY: Current everyday smoker. REVIEW OF SYSTEMS: The 14 systems are reviewed and no additional points are identified compared to the review of systems documented history and physical PHYSICAL EXAMINATION: VITAL SIGNS: T 98.3 HR 115 RR 19 BP 113/58 O2 sat 97% on 4L O2 via NC GEN.: NAD, pleasant and cooperative HEENT: NCAT, sclera without icterus NECK: Supple SKIN AND EXTREMITIES: Warm to touch, no edema NEURO: MENTAL STATUS: Patient alert and oriented to self, place, time. Able to name the current president. Speech fluent, able to name and repeat, following all commands readily. No right and left disorientation neglect. CRANIAL NERVES II THROUGH XII: II: Pupils are equal and reactive to light sy mmetrically. Visual swartz are intact to confrontation. III, IV, : No ptosis. Extraocular movements full. No nystagmus. V: Facial sensation intact from V1- 3. VII. No clear facial asymmetry. VIII: Hearing intact to finger rub bilaterally. IX, X: Symmetric palate elevation. XI: Shoulder shrug intact. XII: Tongue midline without fasciculation or atrophy. MOTOR: Normal bulk/tone. No pronator drift or tremor. Strength is 5/5 in b/l UE. 4+/5 in RLE. 2/5 in LLE (swollen, in pain) but able to plantar/dorsiflex at least 4/5 SENSORY: Decreased to LT in b/l LE. b/l UE sensation intact. REFLEXES: 2+ throughout. Toes are downgoing. COORDINATION: Finger to nose and heel to ceron intact. No dysmetria. Rapid alternating movements with good speed and accuracy. GAIT: Narrow-based and stable. Able to toe/heel/tandem walk DIAGNOSTIC TESTING: LABORATORY: WBC 7.5 Hgb 12.8 Platelet 201 Na 137 K 4.8 Cl 109 CO2 21 BUN 21 Cr 0.99 Glucose 314 AST 55 ALT 43 INR 2.8 Total cholesterol 94 LDL 63 HDL 21 TG 52 IMAGING: CT head 08/15/2019: No acute intracranial abnormality. Improvement in L maxillary sinusitis compared to old exam Venous Doppler L LE 08/15/2019: There appears to be thrombus throughout the superficial femoral vein up into the CFV. Vessels appear to compress incompletely. Leg is very swollen ASSESSMENT: 64 year-old man with PMhx of asthma, COPD, DM, DVT/PE on Coumadin, HLD. HTN, osteoarthritis, migraines, stroke/TIA, presented to [facility] with complaints of LLE foot ulcer, consulting Neurology for AMS. Patient's episode of AMS most likely metabolic encephalopathy in the setting of his infection and DVT, but patient with significant risk factors for stroke. Pt is on Coumadin w ith therapeutic INR. Patient at this time on heparin gtt for DVT. RECOMMENDATIONS: 1. MRI brain w/o contrast 2. c/w anticoagulation; pt may benefit from changing AC from coumadin to a NOAC such as Xarelto unless patient with valvular a.fib 3. Neurology will continue to follow Past Medical History Past Medical History: Asthma, COPD, CVA/TIA, Diabetes Mellitus, Deep Vein Thrombosis (DVT), GERD/Reflux, Hyperlipidemia, Hypertension, Neurologic Disorder, Osteoarthritis (OA), Pneumonia, Pulmonary Embolus (PE) Additional Past Medical History / Comment(s): MIGRAINES. " ANITICOAGULANT LUPUS". PNEUMOTHRORAX. PERIPHERAL EDEMA. History of Any Multi-Drug Resistant Organisms: None Reported Past Surgical History: Adenoidectomy, Appendectomy, Tonsillectomy Additional Past Surgical History / Comment(s): HAILE FILTER . VEIN STRIPPING. STENTS IN "PELVIC AREA" NOVEMBER 2004. Past Anesthesia/Blood Transfusion Reactions: No Reported Reaction Past Psychological History: No Psychological Hx Reported Additional Psychological History / Comment(s): TAKES CYMBALTA FOR CARPAL TUNNEL. Smoking Status: Current every day smoker Past Alcohol Use History: None Reported Past Drug Use History: None Reported - Past Family History Mother Additional Family Medical History / Comment(s): heart disease, peripheral vascular disease. Father Family Medical History: Unable to Obtain Medications and Allergies Home Medications Medication Instructions Recorded Confirmed Type Atorvastatin [Lipitor] 80 mg PO HS 01/09/14 08/16/19 History Celecoxib [CeleBREX] 200 mg PO QAM 01/09/14 08/16/19 History Pregabalin [Lyrica] 300 mg PO BID 01/09/14 08/16/19 History Topiramate [Topamax] 25 mg PO BID 01/09/14 08/16/19 History Warfarin Sodium [Coumadin] 6 mg PO MOTUWETHFRSA 01/09/14 08/16/19 History metFORMIN HCL [Glucophage] 500 mg PO BID 01/09/14 08/16/19 History oxyCODONE HCL/ACETAMINOPHEN 1 tab PO Q6HR PRN 01/09/14 08/16/19 History [Percocet 10-325 mg] Insulin Degludec [Tresiba 72 unit SQ HS 11/15/17 08/15/19 History Flextouch U-200] Lisinopril [Zestril] 20 mg PO DAILY 11/15/17 08/16/19 History Multivitamins, Thera [Multivitamin 1 tab PO DAILY 11/15/17 08/16/19 History (formulary)] Warfarin Sodium 9 mg PO AQUINO 05/10/18 08/16/19 History Budesonide-Formot 160-4.5 Mcg 2 puff INHALATION BID #1 inhaler 05/11/18 08/15/19 Rx [Symbicort 160-4.5 Mcg Inhaler] Albuterol Nebulized [Ventolin 2.5 mg INHALATION RT-QID PRN 08/15/19 08/16/19 History Nebulized] Docusate [Colace] 100 mg PO DAILY PRN 08/15/19 08/15/19 History Fluticasone Nasal [place] [Flonase 2 spr EA NOSTRIL DAILY 08/15/19 08/16/19 History Nasal [place]] Fluticasone/Umeclidin/Vilanter 1 puff INHALATION RT-DAILY 08/15/19 08/16/19 History [Trelegy Ellipta 100-62.5-25] Levofloxacin 750 mg PO DAILY 08/15/19 08/16/19 History Morphine Sulfate [Morphine Sulfate 30 mg PO Q8H 08/15/19 08/16/19 History ER] Nortriptyline [Pamelor] 50 mg PO HS 08/15/19 08/16/19 History Omeprazole [PriLOSEC] 20 mg PO DAILY 08/15/19 08/16/19 History Tiotropium [place] [Spiriva] 1 cap INHALATION DAILY 08/15/19 08/15/19 History diphenhydrAMINE [Benadryl] 25 mg PO DAILY 08/15/19 08/15/19 History Allergies Allergy/AdvReac Type Severity Reaction Status Date / Time baclofen Allergy Unknown Verified 08/16/19 09:07 Physical Examination - Vital Signs Vital Signs: Vital Signs Temp Pulse Resp BP Pulse Ox 08/16/19 07:00 129 H 13 128/85 99 08/16/19 06:00 120 H 18 121/56 97 08/16/19 05:00 95 14 108/73 97 08/16/19 04:00 102 H 13 106/78 96 08/16/19 03:00 106 H 19 96/78 96 08/16/19 02:30 107 H 12 108/70 96 08/16/19 02:00 124 H 15 110/75 97 08/16/19 01:30 98.3 F 115 H 19 113/58 97 08/16/19 00:44 107 H 110/76 02/06/20 23:57 106 H 18 100/59 96 08/15/19 23:34 101 H 18 74/59 94 L 08/15/19 23:21 114 H 18 104/66 95 08/15/19 22:41 120 H 21 95/63 99 08/15/19 22:29 115 H 18 95/61 97 08/15/19 22:15 125 H 18 109/51 95 08/15/19 21:49 97.6 F 138 H 18 97/68 98 08/15/19 21:26 123 H 18 101/71 98 08/15/19 20:00 149 H 18 101/84 96 08/15/19 19:30 151 H 18 105/93 08/15/19 19:21 142 H 18 104/76 96 08/15/19 17:33 98.2 F 115 H 18 94/51 99 Intake and Output 08/15/19 08/16/19 08/16/19 22:59 06:59 14:59 Intake Total 380 244.633 Output Total 1000 Balance -620 244.633 Intake: IV 380 20 Sodium Chloride 0.9% 1, 380 20 000 ml @ 150 mls/hr IV . Q6H40M [facility] Rx#:[id number] Intake, IV Titration 224.633 Amount Heparin Sod,Pork in 0.45% 224.633 NaCl 25,000 unit In 0.45 % NaCl 1 250ml.bag @ 17. 792 UNITS/KG/HR 23 mls/hr IV .[id number] [facility] Rx#: [id number] Output: Urine 1000 Other: Voiding Method Urinal # Voids 1 0 Weight 129.274 kg 129.274 kg Results - Laboratory Findings CBC and BMP: 08/17/19 05:22 08/17/19 05:22 Abnormal Lab Findings: Abnormal Labs 08/15/19 08/15/19 08/15/19 18:55 18:55 18:55 RBC Hgb Hct Neutrophils # 8.0 H Lymphocytes # PT 21.4 H INR 2.2 H APTT 33.5 H D-Dimer 0.64 H Sodium 133 L Chloride Carbon Dioxide BUN 26 H Glucose 299 H POC Glucose (mg/dL) Calcium 8.2 L Total Protein 6.2 L Albumin 3.0 L HDL Cholesterol Urine Glucose (UA) 02/12/2708/15/19 08/15/19 22:31 22:42 22:42 RBC 3.95 L Hgb 12.4 L Hct 37.3 L Neutrophils # Lymphocytes # 0.9 L PT INR APTT D-Dimer Sodium 135 L Chloride Carbon Dioxide BUN 21 H Glucose 224 H POC Glucose (mg/dL) Calcium 7.6 L Total Protein 6.2 L Albumin 2.9 L HDL Cholesterol Urine Glucose (UA) 1+ H 08/16/19 08/16/19 08/16/19 01:06 02:05 03:16 RBC 4.17 L Hgb 12.8 L Hct Neutrophils # Lymphocytes # 0.6 L PT INR APTT D-Dimer Sodium Chloride Carbon Dioxide BUN Glucose POC Glucose (mg/dL) 301 H 306 H Calcium Total Protein Albumin HDL Cholesterol Urine Glucose (UA) 08/16/19 08/16/19 08/16/19 03:16 03:16 05:32 RBC Hgb Hct Neutrophils # Lymphocytes # PT 26.9 H INR 2.8 H APTT D-Dimer Sodium Chloride 109 H Carbon Dioxide 21 L BUN 21 H Glucose 314 H POC Glucose (mg/dL) 274 H Calcium 8.0 L Total Protein Albumin 3.0 L HDL Cholesterol 21 L Urine Glucose (UA) 08/16/19 06:10 RBC Hgb Hct Neutrophils # Lymphocytes # PT INR APTT 173.9 H* D-Dimer Sodium Chloride Carbon Dioxide BUN Glucose POC Glucose (mg/dL) Calcium Total Protein Albumin HDL Cholesterol Urine Glucose (UA)
[2019-08-17] MEDS ORDERED: METOPROLOL TARTRATE 25 MG TAB PO STA (10:34)
[2019-08-17] MEDS: DILTIAZEM ORAL 30 MG TAB PO SCH ×3 (10:40→20:59)
[2019-08-17] MEDS ORDERED: DOCUSATE 100 MG CAP PO PRN (10:42)
[2019-08-17] MEDS ORDERED: ALBUTEROL NEBULIZED 2.5 MG/3 ML INHALATION PRN (10:42)
[2019-08-17] MEDS: MORPHINE SULFATE ER 30 MG TABLET PO SCH ×3 (11:25→23:02)
[2019-08-17 12:25] LABS: Glucose,Whole Blood 273 mg/dL (75-99)
--- NOTE | 2019-08-17 12:43 | NM ---
EXAMINATION TYPE: NM bone 3 phase DATE OF EXAM: 08/17/2019 COMPARISON: NONE HISTORY: Open sores on the left foot. Triple phase bone scintigraphy was performed following the injection of 26.1 mCi Tc 99m MDP. Immedia te images and 3.5 hours post injection images acquired. FINDINGS: There is increased flow to the left foot. Pool images show diffuse increased uptake in the left foot most marked in the heel. Delayed static images show increased activity in the region of the fourth di git as well as in the calcaneus. IMPRESSION: 1. ACTIVITY IN THE DIGITS IS LIKELY DEGENERATIVE. 2. WE DIFFICULT TO EXCLUDE OSTEOMYELITIS INVOLVING THE MEDIAL EPIPHYSIS SIDE OF THE PATIENT'S OPEN SO RES.
--- NOTE | 2019-08-17 12:50 | P.PN ---
Subjective Progress Note Date: 08/17/19 Principal diagnosis: Left foot ulcer with sepsis and atrial fibrillation with RVR. This is a 62-year-old white male with history of multiple medical problems including COPD, deep vein thrombosis, pulmonary embolism, diabetes, diabetic neuropathy, degenerative joint disease, patient had previous history of bilateral deep vein thromboses and pulmonary embolism, chronically on ant icoagulations therapy/Coumadin. Patient has been followed recently at the wound care center by Dr. Naranjo for chronic left foot plantar ulcer, and yesterday the patient was noticing foul-smelling discharge coming from the left foot ulcer. He was told by his primary care physician that he may have a foreign body in the foot. Hence the patient came into the ER. While in the ER, patient had shortn ess of breath and weakness, he was noted to be in atrial fibrillation and RVR. Patient was admitted, placed on Cardizem drip, cardiology consult was initiated, patient was placed on heparin, although his INR was therapeutic. Venous Doppler came back positive for chronic left lower extremity deep vein thromboses. Patient is known to have a history of a Elizabeth filter placement and history of bilateral stents in both lower extremities. Apparently the patient has been seen by vascular surgery in the past, considering the patient was felt to have atrial fibrillation with RVR, and considering his sepsis presentation, I was asked to see him on consultation and he was admitted to the ICU. Patient is a very poor historian, and it is not easy to maintain a Conversation with the Patient. He Gets Upset Very Easily and Extremely Poor Historian. Reevaluated today on 08/17/2019. Patient remains in the ICU, remains in atrial fibrillation with RVR, cardiology is on the case, today I recommended starting the patient on oral Cardizem, and increased his Lopressor to 50 mg by mouth twice a day. Patient is hemodynamically stable. He was seen by vascular surgery for his foot ulcer, and the recommendation was to have Dr. Naranjo see him. Hence I recommended consultation to Dr. Naranjo today. In the meantime the patient is receiving antibiotics as per infectious disease on the case. Remains unhappy with his overall condition, complaining that his home medications have not been started. Although most of them have been by his admitting physician. Patient denies any shortness of breath, denies any cough wheezing chest pain. His CBC is relatively normal INR is 2.5 electrolytes are normal renal profile is normal hence I plan to transfer the patient to a monitor bed on selective, and I have consulted Dr. Naranjo. His final three-phase bone scan is pending Objective - Vital Signs Vital signs: Vital Signs Temp 98.1 F 08/17/19 09:00 Pulse 133 H 08/17/19 11:00 Resp 6 L 08/17/19 11:00 BP 137/110 08/17/19 11:00 Pulse Ox 89 L 08/17/19 11:00 Intake & Output 08/16/19 08/17/19 08/17/19 18:59 06:59 18:59 Intake Total 564.633 690 300 Output Total 1600 1100 Balance -1035.367 -410 300 Weight 129.274 kg 142.5 kg Intake: IV 240 440 80 .9 240 80 Sodium Chloride 0.9% 1, 240 200 000 ml @ 150 mls/hr IV . Q6H40M [facility] Rx#:[id number] Intake, IV Titration 324.633 250 Amount Ampicillin-Sulbactam 3 gm 100 In Sodium Chloride 0.9% 100 ml @ 200 mls/hr IVPB Q6HR [facility] Rx#:[id number] Heparin Sod,Pork in 0.45% 224.633 250 NaCl 25,000 unit In 0.45 % NaCl 1 250ml.bag @ 17. 792 UNITS/KG/HR 23 mls/hr IV .[id number] [facility] Rx#: [id number] Oral 220 Output: Urine 1600 1100 Other: Voiding Method Urinal Urinal Urinal # Voids 0 # Bowel Movements 2 - Exam Physical Exam: Revealed a 64-year-old white male, less agitated today, in no distress. Head: Atraumatic normocephalic. HEENT:[Neck is supple.] [No neck masses.] [No thyromegaly.] [No JVD.] PERRLA, EOMI, no icterus. Chest: [Clear throughout, no crackles, no rhonchi, no wheezes.] Cardiac Exam: Irregular irregular rhythm [Normal S1 and S2, no S3 gallop, no murmur.] Abdomen: [Soft, nontender, no megaly, no rebound, no guarding, normal bowel sounds.] Extremities: [Evidence of bilateral lower extremity edema. There is left lower extremity swelling and redness. A 2.0 cm plantar ulcer on the forefoot left. With yellow drainage noted from the plantar aspect of the left foot. The ulcer seems to be quite deep, and the drainage seems to be foul-smelling. Neurological Exam: Alert and oriented 3. Psychiatric: Less Irritable mood, blunt affect, normal mental status examination. - Labs CBC & Chem 7: 08/17/19 05:22 08/17/19 05:22 Labs: Abnormal Lab Results - Last 24 Hours (Table) 08/16/19 08/16/19 08/16/19 Range/Units 14:22 14:22 16:35 WBC (3.8-10.6) k/uL RBC (4.30-5.90) m/uL Hgb (13.0-17.5) gm/dL Neutrophils # (1.3-7.7) k/uL PT (9.0-12.0) sec INR (<1.2) APTT 57.6 H (22.0-30.0) sec Potassium (3.5-5.1) mmol/L BUN (9-20) mg/dL Glucose (74-99) mg/dL POC Glucose (mg/dL) 342 H (75-99) mg/dL Hemoglobin A1c 8.9 H (4.0-6.0) % Calcium (8.4-10.2) mg/dL 08/16/19 08/16/19 08/17/19 Range/Units 20:28 23:20 05:22 WBC 12.1 H (3.8-10.6) k/uL RBC 4.17 L (4.30-5.90) m/uL Hgb 12.9 L (13.0-17.5) gm/dL Neutrophils # 10.6 H (1.3-7.7) k/uL PT (9.0-12.0) sec INR (<1.2) APTT (22.0-30.0) sec Potassium (3.5-5.1) mmol/L BUN (9-20) mg/dL Glucose (74-99) mg/dL POC Glucose (mg/dL) 366 H 357 H (75-99) mg/dL Hemoglobin A1c (4.0-6.0) % Calcium (8.4-10.2) mg/dL 08/17/19 08/17/19 08/17/19 Range/Units 05:22 05:22 06:49 WBC (3.8-10.6) k/uL RBC (4.30-5.90) m/uL Hgb (13.0-17.5) gm/dL Neutrophils # (1.3-7.7) k/uL PT 23.9 H (9.0-12.0) sec INR 2.5 H (<1.2) APTT 60.3 H (22.0-30.0) sec Potassium 5.2 H (3.5-5.1) mmol/L BUN 28 H (9-20) mg/dL Glucose 273 H (74-99) mg/dL POC Glucose (mg/dL) 280 H (75-99) mg/dL Hemoglobin A1c (4.0-6.0) % Calcium 8.3 L (8.4-10.2) mg/dL 08/17/19 Range/Units 12:24 WBC (3.8-10.6) k/uL RBC (4.30-5.90) m/uL Hgb (13.0-17.5) gm/dL Neutrophils # (1.3-7.7) k/uL PT (9.0-12.0) sec INR (<1.2) APTT (22.0-30.0) sec Potassium (3.5-5.1) mmol/L BUN (9-20) mg/dL Glucose (74-99) mg/dL POC Glucose (mg/dL) 273 H (75-99) mg/dL Hemoglobin A1c (4.0-6.0) % Calcium (8.4-10.2) mg/dL Microbiology - Last 24 Hours (Table) 08/16/19 12:02 Gram Stain - Preliminary Foot - Left Wound Culture - Preliminary 08/15/19 19:15 Blood Culture - Preliminary Blood No Growth after 24 hours 08/16/19 12:02 Anaerobic Culture - Preliminary Foot - Left Assessment and Plan Assessment: Impression: Diabetic foot ulcer, possible osteomyelitis involving the left foot. 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 Persistent atrial fibrillation with poorly controlled ventricular rate most likely secondary to chronic thromboembolic disease/pulmonary embolism. Type 2 diabetes. Dyslipidemia. Generalized anxiety disorder. Peripheral vessel occlusive disease. History of COPD which is presently inactive. History of a Isabell filter placement. Recommendation: Continue present antibiotics Continue beta blockers and Cardizem. Continue bronchodilators. Enamel Applier Dr. Naranjo as per vascular surgery recommendation Continue anticoagulation therapy. Will transfer the patient to a monitor bed on selective. Will follow when necessary. Time with Patient: Less than 30
--- NOTE | 2019-08-17 13:08 | PN ---
PROGRESS NOTE DATE OF SERVICE: 08/17/2019. REASON FOR FOLLOWUP: Left diabetic foot wound with concern for osteomyelitis. INTERVAL HISTORY: The patient is currently afebrile, has been breathing comfortably, was undergoing bone scan phase 3. The patient denies having any chest pain or shortness of breath. Had been complaining of some cough, but no new sputum. No nausea. No vomiting. No abdominal pain. No diarrhea. PHYSICAL EXAMINATION: Blood pressure 141/99 with a pulse of 133, temperature 98.1. He is 93% on room air. General description is a middle-aged male lying in bed in no distress. RESPIRATORY SYSTEM: Unlabored breathing, decreased breath sounds. No wheeze. HEART: S1, S2. Regular rate and rhythm. ABDOMEN: Soft, no tenderness. LABS: Hemoglobin is 12.9, white count 12.1. BUN of 28, creatinine 0.92. Local wound culture and blood culture so far pending. DIAGNOSTIC IMPRESSION AND PLAN: Patient with left foot wound with secondary cellulitis, concern for underlying osteomyelitis. Bone scan seemed to be positive on the 3rd phase. Will wait for the final report. The patient is covered with vancomycin and Unasyn that will be continued while waiting for the culture to finalize. Will monitor clinical course closely. Continue with supportive care. MMODL / IJN: [id number] /
--- NOTE | 2019-08-17 15:38 | P.PN ---
Subjective Progress Note Date: 08/17/19 Subjective: Patient reports feeling better today. He continues to have swelling of his left leg. He denies severe pain. He reports sleeping well Objective - Vital Signs Vital signs: Vital Signs Temp 98.1 F 08/17/19 09:00 Pulse 89 08/17/19 14:00 Resp 12 08/17/19 14:00 BP 137/110 08/17/19 11:00 Pulse Ox 89 L 08/17/19 11:00 Intake & Output 08/16/19 08/17/19 08/17/19 18:59 06:59 18:59 Intake Total 564.633 690 940 Output Total 1600 1100 Balance -1035.367 -410 940 Weight 129.274 kg 142.5 kg Intake: IV 240 440 140 .9 240 140 Sodium Chloride 0.9% 1, 240 200 000 ml @ 150 mls/hr IV . Q6H40M [facility] Rx#:[id number] Intake, IV Titration 324.633 250 100 Amount Ampicillin-Sulbactam 3 gm 100 100 In Sodium Chloride 0.9% 100 ml @ 200 mls/hr IVPB Q6HR [facility] Rx#:[id number] Heparin Sod,Pork in 0.45% 224.633 250 NaCl 25,000 unit In 0.45 % NaCl 1 250ml.bag @ 17. 792 UNITS/KG/HR 23 mls/hr IV .[id number] [facility] Rx#: [id number] Oral 700 Output: Urine 1600 1100 Other: Voiding Method Urinal Urinal Urinal # Voids 0 1 # Bowel Movements 2 1 - Exam Gen.: The patient is reclining in the bed. He is in no acute distress. Mental status: The patient is awake, alert and oriented 3. His speech is clear. Extremities: Bilateral lower extremity edema, left greater than right. - Labs CBC & Chem 7: 08/17/19 05:22 08/17/19 05:22 Labs: Abnormal Lab Results - Last 24 Hours (Table) 08/16/19 08/16/19 08/16/19 Range/Units 14:22 16:35 20:28 WBC (3.8-10.6) k/uL RBC (4.30-5.90) m/uL Hgb (13.0-17.5) gm/dL Neutrophils # (1.3-7.7) k/uL PT (9.0-12.0) sec INR (<1.2) APTT (22.0-30.0) sec Potassium (3.5-5.1) mmol/L BUN (9-20) mg/dL Glucose (74-99) mg/dL POC Glucose (mg/dL) 342 H 366 H (75-99) mg/dL Hemoglobin A1c 8.9 H (4.0-6.0) % Calcium (8.4-10.2) mg/dL 08/16/19 08/17/19 08/17/19 Range/Units 23:20 05:22 05:22 WBC 12.1 H (3.8-10.6) k/uL RBC 4.17 L (4.30-5.90) m/uL Hgb 12.9 L (13.0-17.5) gm/dL Neutrophils # 10.6 H (1.3-7.7) k/uL PT 23.9 H (9.0-12.0) sec INR 2.5 H (<1.2) APTT 60.3 H (22.0-30.0) sec Potassium (3.5-5.1) mmol/L BUN (9-20) mg/dL Glucose (74-99) mg/dL POC Glucose (mg/dL) 357 H (75-99) mg/dL Hemoglobin A1c (4.0-6.0) % Calcium (8.4-10.2) mg/dL 08/17/19 08/17/19 08/17/19 Range/Units 05:22 06:49 12:24 WBC (3.8-10.6) k/uL RBC (4.30-5.90) m/uL Hgb (13.0-17.5) gm/dL Neutrophils # (1.3-7.7) k/uL PT (9.0-12.0) sec INR (<1.2) APTT (22.0-30.0) sec Potassium 5.2 H (3.5-5.1) mmol/L BUN 28 H (9-20) mg/dL Glucose 273 H (74-99) mg/dL POC Glucose (mg/dL) 280 H 273 H (75-99) mg/dL Hemoglobin A1c (4.0-6.0) % Calcium 8.3 L (8.4-10.2) mg/dL Microbiology - Last 24 Hours (Table) 08/16/19 12:02 Gram Stain - Preliminary Foot - Left Wound Culture - Preliminary 08/15/19 19:15 Blood Culture - Preliminary Blood No Growth after 24 hours 08/16/19 12:02 Anaerobic Culture - Preliminary Foot - Left Assessment and Plan Assessment: Impressions: 1. Acute mental status change likely secondary to toxic metabolic encephalopathy related to infection 2. CT scan of the brain negative for infarct Plan: Plan: 1. Because of IVC filter, patient is unable to have an MRI at our facility. This will be put on hold. It is unlikely to be necessary. 2. Your medical treatment of DVT and infection. 3. Thank you for allowing me to participate in the care of this patient. If there are any further neurologic needs please do not hesitate to contact the russ rologist investment consultant
--- NOTE | 2019-08-17 16:01 | P.PN ---
Subjective Progress Note Date: 08/17/19 Principal diagnosis: Diabetic foot ulcer, possible osteomyelitis involving the left foot Persistent atrial fibrillation with poorly controlled ventricular rate Acute mental status change likely secondary to toxic metabolic encephalopathy related to infection 62-year-old white male with history of COPD, deep vein thrombosis/pulmonary embolism, diabetes/ neuropathy, degenerative joint disease, patient had previous history of bilateral deep vein thromboses and pulmonary embolism, chronically on anticoagulations therapy/Coumadin. Patient has been followed recently at the wound care center by Dr. Naranjo for chronic left foot plantar ulcer, and yesterday the patient was noticing foul-smelling discharge coming from the left foot ulcer. He was told by his primary care physician that he may have a foreign body in the foot. Hence the patient came into the ER. While in the ER, patient had shortness of breath and weakness, he was noted to be in atrial fibrillation and RVR. Patient was admitted, placed on Cardizem drip, cardiology consult was initiated, patient was placed on heparin, 08/17/2019 Patient remains in the ICU; patient remains in atrial fibrillation with RVR with heart rate in 1 teens to 130s, cardiology is on the case; patient is started on oral Cardizem, and increased his Lopressor to 50 mg by mouth twice a day. Patient is he modynamically stable. Patient was evaluated by vascular surgery for his foot ulcer, and the recomm endation was to have Dr. Naranjo see him; Dr. Naranjo is consulted and recommendations are pending. In the meantime the patient is receiving antibiotics as per infectious disease on the case and changed IV antibiotic therapy to vancomycin and Unasyn; Zosyn has been discontinued. Patient is complaining that his home medications have not been started, which I ordered His CBC is relatively normal INR is 2.5 electrolytes are normal renal profile is normal; patient has been cleared for transfer to [facility], and I have consulted Dr. Naranjo three-phase bone scan is pending Objective - Vital Signs Vital signs: Vital Signs Temp 98.1 F 08/17/19 09:00 Pulse 133 H 08/17/19 11:00 Resp 6 L 08/17/19 11:00 BP 137/110 08/17/19 11:00 Pulse Ox 89 L 08/17/19 11:00 Intake & Output 02/07/20 02/08/20 02/08/20 18:59 06:59 18:59 Intake Total 564.633 690 300 Output Total 1600 1100 Balance -1035.367 -410 300 Weight 129.274 kg 142.5 kg Intake: IV 240 440 80 .9 240 80 Sodium Chloride 0.9% 1, 240 200 000 ml @ 150 mls/hr IV . Q6H40M [facility] Rx#:[id number] Intake, IV Titration 324.633 250 Amount Ampicillin-Sulbactam 3 gm 100 In Sodium Chloride 0.9% 100 ml @ 200 mls/hr IVPB Q6HR [facility] Rx#:[id number] Heparin Sod,Pork in 0.45% 224.633 250 NaCl 25,000 unit In 0.45 % NaCl 1 250ml.bag @ 17. 792 UNITS/KG/HR 23 mls/hr IV .[id number] [facility] Rx#: [id number] Oral 220 Output: Urine 1600 1100 Other: Voiding Method Urinal Urinal Urinal # Voids 0 # Bowel Movements 2 - Exam Head: Atraumatic normocephalic. HEENT:[Neck is supple.] [No neck masses.] [No thyromegaly.] [No JVD.] PERRLA, EOMI, no icterus. Chest: [Clear throughout, no crackles, no rhonchi, no wheezes.] Cardiac Exam: [Normal S1 and S2, no S3 gallop, no murmur.] Abdomen: [Soft, nontender, no megaly, no rebound, no guarding, normal bowel sounds.] Extremities: [Evidence of bilateral lower extremity edema. There is left lower extremity swelling and redness. A 2.0 cm plantar ulcer on the forefoot left. With yellow drainage noted from the plantar aspect of the left foot. The ulcer seems to be quite deep, and the drainage seems to be foul-smelling. Neurological Exam: Alert and oriented 3. - Labs CBC & Chem 7: 08/17/19 05:22 08/17/19 05:22 Labs: Abnormal Lab Results - Last 24 Hours (Table) 08/16/19 08/16/19 08/16/19 Range/Units 14:22 14:22 16:35 WBC (3.8-10.6) k/uL RBC (4.30-5.90) m/uL Hgb (13.0-17.5) gm/dL Neutrophils # (1.3-7.7) k/uL PT (9.0-12.0) sec INR (<1.2) APTT 57.6 H (22.0-30.0) sec Potassium (3.5-5.1) mmol/L BUN (9-20) mg/dL Glucose (74-99) mg/dL POC Glucose (mg/dL) 342 H (75-99) mg/dL Hemoglobin A1c 8.9 H (4.0-6.0) % Calcium (8.4-10.2) mg/dL 08/16/19 08/16/19 08/17/19 Range/Units 20:28 23:20 05:22 WBC 12.1 H (3.8-10.6) k/uL RBC 4.17 L (4.30-5.90) m/uL Hgb 12.9 L (13.0-17.5) gm/dL Neutrophils # 10.6 H (1.3-7.7) k/uL PT (9.0-12.0) sec INR (<1.2) APTT (22.0-30.0) sec Potassium (3.5-5.1) mmol/L BUN (9-20) mg/dL Glucose (74-99) mg/dL POC Glucose (mg/dL) 366 H 357 H (75-99) mg/dL Hemoglobin A1c (4.0-6.0) % Calcium (8.4-10.2) mg/dL 08/17/19 08/17/19 08/17/19 Range/Units 05:22 05:22 06:49 WBC (3.8-10.6) k/uL RBC (4.30-5.90) m/uL Hgb (13.0-17.5) gm/dL Neutrophils # (1.3-7.7) k/uL PT 23.9 H (9.0-12.0) sec INR 2.5 H (<1.2) APTT 60.3 H (22.0-30.0) sec Potassium 5.2 H (3.5-5.1) mmol/L BUN 28 H (9-20) mg/dL Glucose 273 H (74-99) mg/dL POC Glucose (mg/dL) 280 H (75-99) mg/dL Hemoglobin A1c (4.0-6.0) % Calcium 8.3 L (8.4-10.2) mg/dL Microbiology - Last 24 Hours (Table) 08/16/19 12:02 Gram Stain - Preliminary Foot - Left Wound Culture - Preliminary 08/15/19 19:15 Blood Culture - Preliminary Blood No Growth after 24 hours 08/16/19 12:02 Anaerobic Culture - Preliminary Foot - Left Assessment and Plan Assessment: 1. Diabetic foot ulcer, possible osteomyelitis involving the left foot - Patient remains on IV antibiotics in form of vancomycin and Unasyn; vascular surgery is consulted for possible surgical debridement versus amputation; ID is consulted to tailor antibiotic therapy 2. 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; patient has history of Isabell filter placement; patient remains on anticoagulation therapy 3. Persistent atrial fibrillation with poorly controlled ventricular rate most likely secondary to chronic thromboembolic disease/pulmonary embolism; patient is currently being controlled on IV Cardizem infusion and beta blockers; remains on anticoagulation therapy. 4. Type 2 diabetes; Accu-Cheks every before meals and at bedtime with insulin sliding scale along with NovoLog 10 units subcu every before meals and at bedtime. 5. Generalized anxiety disorder; lorazepam when necessary. 6. COPD ; not in exacerbation CODE STATUS; full code
[2019-08-17 16:37] LABS: Glucose,Whole Blood 230 mg/dL (75-99)
--- NOTE | 2019-08-17 16:38 | ECHOF ---
Referral Reason:afib MEASUREMENTS -------- HEIGHT: 193.0 cm WEIGHT: 129.3 kg BP: 141/99 RVIDd: 4.0 cm (< 3.3) IVSd: 1.8 cm (0.6 - 1.1) LVIDd: 4.6 cm (3.9 - 5.3) LVPWd: 1.8 cm (0.6 - 1.1) IVSs: 2.6 cm LVIDs: 3.6 cm LVPWs: 1.9 cm LAESV Index (A-L): 35.42 ml/m Ao Diam: 3.9 cm (2.0 - 3.7) AV Cusp: 2.6 cm (1.5 - 2.6) FINDINGS -------- Afib with RVR This was a technically difficult study with suboptimal views. All lombardo not well visulized There is moderate concentric left ventricular hypertrophy. Overall left ventricular systolic functi on is moderate-severely impaired with, an EF between 30 - 35 %. Left ventricular fillimg pressure c annot be estimated due to Atrial fibrillation. The right ventricle is moderately enlarged. LA is moderately dilated 34-39 ml/m2 The right atrium is mildly enlarged. 5.0mg of Lumason was utilized for enhancement of images Interatrial and interventricular septum intact. The aortic valve was not well visualized. There is no evidence of aortic regurgitation. There is no evidence of aortic stenosis. The mitral valve was not well visualized. No mitral regurgitation. The tricuspid valve was not well visualized. Trace tricuspid regurgitation present. Unable to est imate RVSP due to inadequate TR jet spectral doppler profile. The pulmonic valve was not well visualized. There is no pulmonic regurgitation present. The aortic root size is normal. The inferior vena cava is dilated with no significant inspiratory collapse which is consistent estima michael right atrial pressure of >20 mmHg. There is no pericardial effusion. CONCLUSIONS -------- 1. Afib with RVR 2. This was a technically difficult study with suboptimal views. 3. All lombardo not well visulized 4. There is moderate concentric left ventricular hypertrophy. 5. Overall left ventricular systolic function is moderate-severely impaired with, an EF between 30 - 35 %. 6. Left ventricular fillimg pressure cannot be estimated due to Atrial fibrillation. 7. The right ventricle is moderately enlarged. 8. LA is moderately dilated 34-39 ml/m2 9. The right atrium is mildly enlarged. 10. 5.0mg of Lumason was utilized for enhancement of images 11. Interatrial and interventricular septum intact. 12. The aortic valve was not well visualized. 13. There is no evidence of aortic regurgitation. 14. There is no evidence of aortic stenosis. 15. The mitral valve was not well visualized. 16. No mitral regurgitation. 17. The tricuspid valve was not well visualized. 18. Trace tricuspid regurgitation present. 19. Unable to estimate RVSP due to inadequate TR jet spectral doppler profile. 20. The pulmonic valve was not well visualized. 21. There is no pulmonic regurgitation present. 22. The aortic root size is normal. 23. The inferior vena cava is dilated with no significant inspiratory collapse which is consistent es timated right atrial pressure of >20 mmHg. 24. There is no pericardial effusion. COMMUNITY OUTREACH COORDINATOR: Lorene Eddy RDCS
[2019-08-17] MEDS: SYMBICORT 160-4.5 MCG INHALER INHALATION SCH (20:07)
[2019-08-17 20:46] LABS: Glucose,Whole Blood 233 mg/dL (75-99)
[2019-08-17] MEDS: ATORVASTATIN 80 MG TAB PO SCH (20:58)
[2019-08-17] MEDS: METOPROLOL TARTRATE 50 MG TAB PO SCH (20:58)
[2019-08-17] MEDS: INSULIN DETEMIR (LEVEMIR) 100 UNIT/ML SYR SQ SCH (20:59)
[2019-08-17] MEDS: TOPIRAMATE 25 MG TAB PO SCH (20:59)
[2019-08-17] MEDS: NORTRIPTYLINE 25 MG CAP PO SCH (21:00)
[2019-08-17] MEDS ORDERED: PREGABALIN 300 MG PO SCH (21:00)
--- NOTE | 2019-08-17 22:26 | PN ---
PROGRESS NOTE 64-year-old gentleman that is admitted to hospital with atrial fibrillation with rapid ventricular rate. Has underlying dementia, developed pulmonary edema. He is feeling better. He is no longer on the BiPAP. Went back into sinus rhythm. EXAM: Remains confused. Heart rate is 89 beats per minute, blood pressure is 137/100, respiratory rate 18. Chest exam reveals diminished air entry at the bases. Heart exam reveals first and second heart sounds. No gallop. Abdomen is soft. Exam of extremities did not reveal any edema. Peripheral pulses are felt. LABORATORY DATA: Lab show that his hemoglobin is 2.5. PTT is 60. ASSESSMENT: 1. Persistent atrial fibrillation. 2. Congestive heart failure. 3. Coronary artery disease. 4. Crohn's disease. 5. Coagulopathy with an INR of 2.5. I am going to hold the heparin at this time as his INR is elevated still and patient used to be on Coumadin prior to this admission. MMODL / IJN: [id number] /
--- NOTE | 2019-08-17 23:07 | PN ---
PROGRESS NOTE 64-year-old gentleman that is admitted to hospital with atrial fibrillation, bilateral leg edema and bilateral lower extremity DVT with varicose veins and diabetic foot ulcer. This morning his heart rate is better controlled. Leg edema has improved. He is currently on aspirin, IV antibiotics, Lipitor, Cardizem 30 t.i.d., Lopressor 50 b.i.d., and IV heparin. I will switch him to p.o. Eliquis or Xarelto if he is covered. On exam, heart rate is 89 beats per minute. Blood pressure is 137/90. Respiratory rate 18. Chest exam reveals diminished air entry at the bases. Heart exam reveals first and second heart sounds, irregular rhythm and a systolic murmur at the left lower sternal border. Abdomen is soft. Exam of extremities reveals bilateral pitting edema with chronic stasis changes and cellulitis and ulceration. Labs show a hemoglobin of 12.9, INR is 2.5. ASSESSMENT: 1. Permanent atrial fibrillation with controlled ventricular rate. 2. Cellulitis with leg edema. 3. History of deep vein thrombosis. The patient's INR is therapeutic at 2.5. We can say he was on Coumadin at home and had been using it so there was some confusion about this on his initial presentation, so we can continue with the Coumadin. We will give him a dose of Coumadin today. MMODL / IJN: [id number] /
[2019-08-18] MEDS ORDERED: VANCOMYCIN TROUGH DUE 1 EACH MISC MISCELLANE ONE (03:00)
[2019-08-18] MEDS: VANCOMYCIN 2,000 MG in SODIUM CHLORIDE 0.9% 500 ML 500 ML IVPB SCH ×2 (04:40→18:29)
[2019-08-18] MEDS: HEPARIN SOD,PORK IN 0.45% NACL 25,000 UNIT in 0.45% NACL 1 250ML.BAG IV SCH (04:47)
[2019-08-18 06:47] LABS: Glucose,Whole Blood 166 mg/dL (75-99)
[2019-08-18] MEDS: INSULIN ASPART (NovoLOG) 100 UNIT/ML VIAL SQ SCH ×8 (06:54→21:31)
[2019-08-18] MEDS: methylPREDNISolone SOD SUCCI 125 MG/2 ML VIAL IV SCH ×4 (06:54→23:04)
[2019-08-18] MEDS: AMPICILLIN-SULBACTAM 3 GM in SODIUM CHLORIDE 0.9% 100 ML IVPB SCH ×4 (06:54→23:05)
[2019-08-18] MEDS: PANTOPRAZOLE 40 MG TABLET PO SCH (06:54)
[2019-08-18 06:55] LABS: Basophils % (A) 0 %; Eosinophils % (A) 0 %; HCT 40.4 % (39.0-53.0); HGB 12.6 gm/dL (13.0-17.5); Lymphocytes # (A) 0.9 k/uL (1.0-4.8); Lymphocytes % (A) 7 %; MCH 30.1 pg (25.0-35.0); MCHC 31.3 g/dL (31.0-37.0); MCV 96.2 fL (80.0-100.0); Mean Platelet Volume 8.1; Monocytes # (A) 0.6 k/uL (0-1.0); Monocytes % (A) 5 %; Neutrophils # (A) 10.1 k/uL (1.3-7.7); Neutrophils % (A) 86 %; Platelet Count 288 k/uL (150-450); RBC 4.19 m/uL (4.30-5.90); RDW 14.3 % (11.5-15.5); WBC 11.7 k/uL (3.8-10.6)
[2019-08-18 07:07] LABS: Potassium 5.2 mmol/L (3.5-5.1)
[2019-08-18 07:10] LABS: INR 2.7 (<1.2); Prothrombin Time 25.9 sec (9.0-12.0)
[2019-08-18] MEDS ORDERED: NON FORMULARY DRUG (Fluticasone/Umeclidin/Vilanter [Trelegy Ellipta 100-62.5-25] 1 PUFF) INHALATION SCH (08:00)
[2019-08-18] MEDS: PREGABALIN 100 MG CAP PO SCH ×2 (08:34→20:37)
[2019-08-18] MEDS: MULTIVITAMINS, THERA 1 EACH TAB PO SCH (08:34)
[2019-08-18] MEDS: MORPHINE SULFATE ER 30 MG TABLET PO SCH ×3 (08:34→23:04)
[2019-08-18] MEDS: ASPIRIN 325 MG TAB PO SCH (08:34)
[2019-08-18] MEDS: LISINOPRIL 20 MG TAB PO SCH (08:34)
[2019-08-18] MEDS: diphenhydrAMINE 25 MG CAP PO SCH (08:34)
[2019-08-18] MEDS: TOPIRAMATE 25 MG TAB PO SCH ×2 (08:35→20:37)
[2019-08-18] MEDS: DILTIAZEM ORAL 30 MG TAB PO SCH (08:35)
[2019-08-18] MEDS: METOPROLOL TARTRATE 50 MG TAB PO SCH ×2 (08:35→20:37)
--- NOTE | 2019-08-18 08:35 | P.PN ---
Subjective Progress Note Date: 08/18/19 This is a 64-year-old male admitted to the hospital for atrial fibrillation, bilateral leg edema and bilateral lower extremity DVT with varicose veins diabetic foot ulcer. Patient has been treated in the intensive care unit transfer to the cardiac stepdown unit yesterday. He has been on aspirin, IV antibiotics, Lipitor Cardizem 30 mg 3 times daily, Lopressor 50 mg twice daily and IV heparin. Patient is currently on Coumadin with therapeutic INR with plan for patient to be covered with eliquis or Xarelto if he has insurance coverage. 08/18: Patient is now seen on the cardiac stepdown unit. INR is 2.7. Blood pressure 133/94, afebrile, pulse ox 95% on room air. Potassium 5.2, BUN 30, creatinine 1.03. WBC 11.7 and hemoglobin 12.6. Time of evaluation, heart rate is 142. Patient states he just got up to the bathroom and back to bed. He has been running periodically at 130s alternating with 70s and 80s. Patient denies having any chest pain, shortness of breath, palpitations. Patient voices concern about his ulcer on his foot and he wishes to see Dr. Naranjo. The patient's nurses aware and consult was placed yesterday for Dr. Naranjo. Objective - Vital Signs Vital signs: Vital Signs Temp 98 F 08/18/19 04:00 Pulse 60 08/18/19 04:00 Resp 19 08/18/19 04:00 BP 133/94 08/18/19 04:00 Pulse Ox 95 08/18/19 04:00 Intake & Output 08/17/19 08/18/19 08/18/19 18:59 06:59 18:59 Intake Total 2090 439.999 291.278 Output Total 400 Balance 1690 439.999 291.278 Weight 146.1 kg Intake: IV 200 .9 200 Intake, IV Titration 950 202.999 51.278 Amount Ampicillin-Sulbactam 3 gm 200 In Sodium Chloride 0.9% 100 ml @ 200 mls/hr IVPB Q6HR [facility] Rx#:[id number] Heparin Sod,Pork in 0.45% 250 202.999 51.278 NaCl 25,000 unit In 0.45 % NaCl 1 250ml.bag @ 17. 792 UNITS/KG/HR 23 mls/hr IV .[id number] [facility] Rx#: [id number] Vancomycin 2,000 mg In 500 Sodium Chloride 0.9% 500 ml 500 ml @ 167 mls/hr IVPB Q12H [facility] Rx#: [id number] Oral 940 237 240 Output: Urine 400 Other: Voiding Method Urinal Urinal # Voids 1 1 1 # Bowel Movements 1 - Exam Gen: This is a 64-year-old male patient. He is resting in bed appears to be comfortable and in no acute distress. HEENT: Head is atraumatic, normocephalic. Pupils equal, round. Sclerae is anicteric. NECK: Supple. No JVD. No lymphadenopathy. No thyromegaly. LUNGS: Clear to auscultation. No wheezes or rhonchi. No intercostal retra ctions. HEART: Irregular rate and rhythm. Systolic murmur at the left lower sternal border. Heart rate 140s. ABDOMEN: Soft. Bowel sounds are present. No masses. No tenderness. EXTREMITIES: Bilateral pitting edema to the lower extremities, chronic stasis changes, cellulitis and ulcerations. NEUROLOGICAL: Patient is awake, alert and oriented x3. Cranial nerves 2 through 12 are grossly intact. - Labs CBC & Chem 7: 08/18/19 06:18 08/18/19 06:18 Labs: Abnormal Lab Results - Last 24 Hours (Table) 08/17/19 08/17/19 08/17/19 Range/Units 12:24 16:36 20:45 WBC (3.8-10.6) k/uL RBC (4.30-5.90) m/uL Hgb (13.0-17.5) gm/dL Neutrophils # (1.3-7.7) k/uL Lymphocytes # (1.0-4.8) k/uL PT (9.0-12.0) sec INR (<1.2) Potassium (3.5-5.1) mmol/L BUN (9-20) mg/dL Glucose (74-99) mg/dL POC Glucose (mg/dL) 273 H 230 H 233 H (75-99) mg/dL Calcium (8.4-10.2) mg/dL 08/18/19 08/18/19 08/18/19 Range/Units 06:18 06:18 06:18 WBC 11.7 H (3.8-10.6) k/uL RBC 4.19 L (4.30-5.90) m/uL Hgb 12.6 L (13.0-17.5) gm/dL Neutrophils # 10.1 H (1.3-7.7) k/uL Lymphocytes # 0.9 L (1.0-4.8) k/uL PT 25.9 H (9.0-12.0) sec INR 2.7 H (<1.2) Potassium 5.2 H (3.5-5.1) mmol/L BUN 30 H (9-20) mg/dL Glucose 179 H (74-99) mg/dL POC Glucose (mg/dL) (75-99) mg/dL Calcium 8.0 L (8.4-10.2) mg/dL 08/18/19 Range/Units 06:45 WBC (3.8-10.6) k/uL RBC (4.30-5.90) m/uL Hgb (13.0-17.5) gm/dL Neutrophils # (1.3-7.7) k/uL Lymphocytes # (1.0-4.8) k/uL PT (9.0-12.0) sec INR (<1.2) Potassium (3.5-5.1) mmol/L BUN (9-20) mg/dL Glucose (74-99) mg/dL POC Glucose (mg/dL) 166 H (75-99) mg/dL Calcium (8.4-10.2) mg/dL Microbiology - Last 24 Hours (Table) 08/15/19 19:15 Blood Culture - Preliminary Blood No Growth after 48 hours 08/16/19 12:02 Gram Stain - Preliminary Foot - Left Wound Culture - Preliminary Assessment and Plan Plan: Assessment: Persistent atrial fibrillation, RVR with activity Cellulitis of the lower extremities with ulcerations and leg edema History of DVT Plan: Continue Cardizem increased to 60 mg 3 times daily Lopressor 50 mg twice daily Continue Coumadin at current dosing Monitor INR Further recommendations to follow based upon clinical course Nurse practitioner note has been reviewed, I agree with documented findings and plan of care. Patient was seen and examined.
[2019-08-18] MEDS: IPRATROPIUM 0.5 MG/2.5 ML NEBU INHALATION SCH ×4 (08:40→18:48)
[2019-08-18] MEDS: SYMBICORT 160-4.5 MCG INHALER INHALATION SCH ×2 (08:40→18:48)
[2019-08-18] MEDS: FLUTICASONE 50MCG/SPRAY NASAL 16GM EA NOSTRIL SCH (08:41)
[2019-08-18] MEDS ORDERED: NON FORMULARY DRUG (Omeprazole 20 MG) PO SCH (09:00)
[2019-08-18 12:13] LABS: Glucose,Whole Blood 175 mg/dL (75-99)
[2019-08-18] MEDS: DILTIAZEM ORAL 60 MG TAB PO SCH ×2 (16:23→23:04)
--- NOTE | 2019-08-18 16:23 | P.PN ---
Subjective Progress Note Date: 08/18/19 Principal diagnosis: Diabetic foot ulcer, possible osteomyelitis involving the left foot Persistent atrial fibrillation with poorly controlled ventricular rate Acute mental status change likely secondary to toxic metabolic encephalopathy related to infection 62-year-old white male with history of COPD, deep vein thrombosis/pulmonary embolism, diabetes/ neuropathy, degenerative joint disease, patient had previous history of bilateral deep vein thromboses and pulmonary embolism, chronically on anticoagulations therapy/Coumadin. Patient has been followed recently at the wound care center by Dr. Naranjo for chronic left foot plantar ulcer, and yesterday the patient was noticing foul-smelling discharge coming from the left foot ulcer. He was told by his primary care physician that he may have a foreign body in the foot. Hence the patient came into the ER. While in the ER, patient had shortness of breath and weakness, he was noted to be in atrial fibrillation and RVR. Patient was admitted, placed on Cardizem drip, cardiology consult was initiated, patient was placed on heparin, 08/17/2019 Patient remains in the ICU; patient remains in atrial fibrillation with RVR with heart rate in 1 teens to 130s, cardiology is on the case; patient is started on oral Cardizem, and increased his Lopressor to 50 mg by mouth twice a day. Patient is he modynamically stable. Patient was evaluated by vascular surgery for his foot ulcer, and the recomm endation was to have Dr. Naranjo see him; Dr. Naranjo is consulted and recommendations are pending. In the meantime the patient is receiving antibiotics as per infectious disease on the case and changed IV antibiotic therapy to vancomycin and Unasyn; Zosyn has been discontinued. Patient is complaining that his home medications have not been started, which I ordered His CBC is relatively normal INR is 2.5 electrolytes are normal renal profile is normal; patient has been cleared for transfer to [facility], and I have consulted Dr. Naranjo three-phase bone scan is pending 08/18/2019 Patient is evaluated in selective care unit; patient and family quite upset since patient was not seen by Dr. Naranjo is patient's primary community product specialist Patient's vital signs remained stable in form of a blood pressure 133/94, SpO2 of 95% on room air; lab review shows an INR of 2.7, potassium 5.2, BUN 30 and creatinine of 1.03; not count is slightly elevated at 11.7; patient's heart rate does fluctuate between 70-80 upto 130; cardiology recommending to continue with Cardizem at an increased dose of 60 mg 3 times a day along with Lopressor 50 mg daily Patient was evaluated by infection disease and underwent wound cleaning; recommendations are to continue current antibiotic therapy; Objective - Vital Signs Vital signs: Vital Signs Temp 98.1 F 08/18/19 08:00 Pulse 128 H 08/18/19 08:52 Resp 18 08/18/19 08:00 BP 128/98 08/18/19 08:00 Pulse Ox 95 08/18/19 08:43 Intake & Output 08/17/19 08/18/19 08/18/19 18:59 06:59 18:59 Intake Total 2090 439.999 291.278 Output Total 400 Balance 1690 439.999 291.278 Weight 146.1 kg Intake: IV 200 .9 200 Intake, IV Titration 950 202.999 51.278 Amount Ampicillin-Sulbactam 3 gm 200 In Sodium Chloride 0.9% 100 ml @ 200 mls/hr IVPB Q6HR [facility] Rx#:[id number] Heparin Sod,Pork in 0.45% 250 202.999 51.278 NaCl 25,000 unit In 0.45 % NaCl 1 250ml.bag @ 17. 792 UNITS/KG/HR 23 mls/hr IV .[id number] [facility] Rx#: [id number] Vancomycin 2,000 mg In 500 Sodium Chloride 0.9% 500 ml 500 ml @ 167 mls/hr IVPB Q12H [facility] Rx#: [id number] Oral 940 237 240 Output: Urine 400 Other: Voiding Method Urinal Urinal # Voids 1 1 1 # Bowel Movements 1 - Exam Head: Atraumatic normocephalic. HEENT:[Neck is supple.] [No neck masses.] [No thyromegaly.] [No JVD.] PERRLA, EOMI, no icterus. Chest: [Clear throughout, no crackles, no rhonchi, no wheezes.] Cardiac Exam: [Normal S1 and S2, no S3 gallop, no murmur.] Abdomen: [Soft, nontender, no megaly, no rebound, no guarding, normal bowel sounds.] Extremities: [Evidence of bilateral lower extremity edema. There is left lower extremity swelling and redness. A 2.0 cm plantar ulcer on the forefoot left. With yellow drainage noted from the plantar aspect of the left foot. The ulcer seems to be quite deep, and the drainage seems to be foul-smelling. Neurological Exam: Alert and oriented 3. - Labs CBC & Chem 7: 08/18/19 06:18 08/18/19 06:18 Labs: Abnormal Lab Results - Last 24 Hours (Table) 08/17/19 08/17/19 08/17/19 Range/Units 12:24 16:36 20:45 WBC (3.8-10.6) k/uL RBC (4.30-5.90) m/uL Hgb (13.0-17.5) gm/dL Neutrophils # (1.3-7.7) k/uL Lymphocytes # (1.0-4.8) k/uL PT (9.0-12.0) sec INR (<1.2) Potassium (3.5-5.1) mmol/L BUN (9-20) mg/dL Glucose (74-99) mg/dL POC Glucose (mg/dL) 273 H 230 H 233 H (75-99) mg/dL Calcium (8.4-10.2) mg/dL 08/18/19 08/18/19 08/18/19 Range/Units 06:18 06:18 06:18 WBC 11.7 H (3.8-10.6) k/uL RBC 4.19 L (4.30-5.90) m/uL Hgb 12.6 L (13.0-17.5) gm/dL Neutrophils # 10.1 H (1.3-7.7) k/uL Lymphocytes # 0.9 L (1.0-4.8) k/uL PT 25.9 H (9.0-12.0) sec INR 2.7 H (<1.2) Potassium 5.2 H (3.5-5.1) mmol/L BUN 30 H (9-20) mg/dL Glucose 179 H (74-99) mg/dL POC Glucose (mg/dL) (75-99) mg/dL Calcium 8.0 L (8.4-10.2) mg/dL 08/18/19 Range/Units 06:45 WBC (3.8-10.6) k/uL RBC (4.30-5.90) m/uL Hgb (13.0-17.5) gm/dL Neutrophils # (1.3-7.7) k/uL Lymphocytes # (1.0-4.8) k/uL PT (9.0-12.0) sec INR (<1.2) Potassium (3.5-5.1) mmol/L BUN (9-20) mg/dL Glucose (74-99) mg/dL POC Glucose (mg/dL) 166 H (75-99) mg/dL Calcium (8.4-10.2) mg/dL Microbiology - Last 24 Hours (Table) 08/15/19 19:15 Blood Culture - Preliminary Blood No Growth after 48 hours 08/16/19 12:02 Gram Stain - Preliminary Foot - Left Wound Culture - Preliminary Assessment and Plan Assessment: 1. Diabetic foot ulcer, possible osteomyelitis involving the left foot - Patient remains on IV antibiotics in form of vancomycin and Unasyn; vascular surgery is consulted for possible surgical debridement versus amputation; ID is consulted to tailor antibiotic therapy 2. 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 Persistent atrial fibrillation with poorly controlled ventricular rate most likely secondary to chronic thromboembolic disease/pulmonary embolism; patient is currently being controlled on IV Cardizem infusion and beta blockers; remains on anticoagulation therapy. 4. Type 2 diabetes; Accu-Cheks every before meals and at bedtime with insulin sliding scale along with NovoLog 10 units subcu every before meals and at bedtime. 5. Generalized anxiety disorder; lorazepam when necessary. 6. COPD ; not in exacerbation CODE STATUS; full code
[2019-08-18 16:56] LABS: Glucose,Whole Blood 296 mg/dL (75-99)
[2019-08-18] MEDS ORDERED: WARFARIN 3 MG TAB PO SCH (18:00)
[2019-08-18] MEDS: ATORVASTATIN 80 MG TAB PO SCH (20:37)
[2019-08-18 21:05] LABS: Glucose,Whole Blood 323 mg/dL (75-99)
[2019-08-18] MEDS: NORTRIPTYLINE 25 MG CAP PO SCH (21:30)
[2019-08-18] MEDS: INSULIN DETEMIR (LEVEMIR) 100 UNIT/ML SYR SQ SCH (21:31)
--- NOTE | 2019-08-19 00:22 | PN ---
PROGRESS NOTE DATE OF SERVICE: 08/18/2019. REASON FOR FOLLOWUP: Left diabetic foot wound with underlying osteomyelitis. INTERVAL HISTORY: The patient is currently afebrile. Patient has been breathing comfortably. The patient denies having any chest pain or shortness of breath or cough. No nausea, vomiting. No abdominal pain. Pain to the left foot. PHYSICAL EXAMINATION: Blood pressure 121/87 with a pulse of 120, temperature 98. He is 96% on room air. General description is a middle aged male lying in bed in no distress. Respiratory system: Unlabored breathing. Clear to auscultation anteriorly. Heart S1, S2 regular rate and rhythm. ABDOMEN: Soft, no tenderness. His left foot wound at the base in between the 4th and 5th toe, which is tracking all the way down to the wound on the plantar aspect. Overall, purulent drainage has decreased. LABS: Hemoglobin is 12.5, white count 11.7, BUN of 30, creatinine 1.03. Wound culture presumptive MRSA. DIAGNOSTIC IMPRESSION AND PLAN: Patient with left diabetic foot wound with underlying acute osteomyelitis. Culture with presumptive MRSA, likely pathogen. The patient is covered with vancomycin. Waiting evaluation to see that underlying destruction of the bone. The patient will need debridement and local care to continue as ordered. Continue the vancomycin while monitoring his kidney function closely. Multiple family members at the bedside. Their questions and concerns were answered. Time spent today has been 25 minutes. MMODL / IJN: [id number] /
[2019-08-19] MEDS: VANCOMYCIN 2,000 MG in SODIUM CHLORIDE 0.9% 500 ML 500 ML IVPB SCH ×2 (03:41→15:39)
[2019-08-19 06:19] LABS: HCT 39.5 % (39.0-53.0); HGB 12.9 gm/dL (13.0-17.5); MCH 31.4 pg (25.0-35.0); MCHC 32.5 g/dL (31.0-37.0); MCV 96.5 fL (80.0-100.0); Mean Platelet Volume 8.1; Platelet Count 299 k/uL (150-450); RDW 14.2 % (11.5-15.5)
[2019-08-19 06:27] LABS: African American GFR (CKD) >90 (>60 ml/min/1.73 sqM); Anion Gap 6 mmol/L; Blood Urea Nitrogen 28 mg/dL (9-20); Calcium 7.9 mg/dL (8.4-10.2); Carbon Dioxide 26 mmol/L (22-30); Chloride 103 mmol/L (98-107); Glucose 318 mg/dL (74-99); Non-African American GFR(CKD) >90 (>60 ml/min/1.73 sqM); Potassium 5.2 mmol/L (3.5-5.1); Sodium 135 mmol/L (137-145)
[2019-08-19 06:40] LABS: INR 1.9 (<1.2); Prothrombin Time 18.5 sec (9.0-12.0)
[2019-08-19 06:50] LABS: Glucose,Whole Blood 268 mg/dL (75-99)
[2019-08-19] MEDS: PANTOPRAZOLE 40 MG TABLET PO SCH (06:50)
[2019-08-19] MEDS: INSULIN ASPART (NovoLOG) 100 UNIT/ML VIAL SQ SCH ×8 (06:50→21:26)
[2019-08-19] MEDS: AMPICILLIN-SULBACTAM 3 GM in SODIUM CHLORIDE 0.9% 100 ML IVPB SCH ×3 (06:50→17:45)
[2019-08-19] MEDS: methylPREDNISolone SOD SUCCI 125 MG/2 ML VIAL IV SCH ×3 (06:50→17:23)
[2019-08-19] MEDS: IPRATROPIUM 0.5 MG/2.5 ML NEBU INHALATION SCH ×4 (08:30→19:42)
[2019-08-19] MEDS: SYMBICORT 160-4.5 MCG INHALER INHALATION SCH ×2 (08:30→19:42)
[2019-08-19] MEDS: MORPHINE SULFATE ER 30 MG TABLET PO SCH ×3 (09:08→23:51)
[2019-08-19] MEDS: ASPIRIN 325 MG TAB PO SCH (09:08)
[2019-08-19] MEDS: diphenhydrAMINE 25 MG CAP PO SCH (09:09)
[2019-08-19] MEDS: MULTIVITAMINS, THERA 1 EACH TAB PO SCH (09:09)
[2019-08-19] MEDS: LISINOPRIL 20 MG TAB PO SCH (09:09)
[2019-08-19] MEDS: DILTIAZEM ORAL 60 MG TAB PO SCH ×3 (09:09→21:26)
[2019-08-19] MEDS: METOPROLOL TARTRATE 50 MG TAB PO SCH ×2 (09:09→21:29)
[2019-08-19] MEDS: TOPIRAMATE 25 MG TAB PO SCH ×2 (09:09→21:26)
[2019-08-19] MEDS: FLUTICASONE 50MCG/SPRAY NASAL 16GM EA NOSTRIL SCH (09:10)
[2019-08-19] MEDS: PREGABALIN 100 MG CAP PO SCH ×2 (09:15→21:26)
[2019-08-19 12:01] LABS: Glucose,Whole Blood 229 mg/dL (75-99)
--- NOTE | 2019-08-19 13:13 | P.CONS ---
History of Present Illness - Reason for Consult Consult date: 08/19/19 Wound care - History of Present Illness This is a 64-year-old gentleman who is known to the wound care center who sees Dr. Naranjo on a regular basis. Patient dressing was observed to silver in the outpatient setting. However on Monday he developed increased drainage and a new ulceration to the webbing between the fourth and fifth digit of the right foot. Patient has ecchymosis noted around the periwound. Bone scan shows positive for a mellitus. Patient is currently receiving IV antibiotics. Patient is extremely upset about the wound care feeling that it is getting worse instead of better. Explained to patient that he has a bone infection and needs to have at least 4 weeks of antibiotics. Patient would like to have the area just cut off instead of continue with wound care treatment. Discussed with patient that this can be discussed in length with Dr. Naranjo at his next appointment. Review of Systems Review Of Systems: Constitutional: No fever, no chills, no night sweats. No weight change. No weakness, fatigue or lethargy. No daytime sleepiness. Integumentary:reports wounds, no lesions. No rash or pruritus. No unusual bruising. No change in hair or nails. Past Medical History Past Medical History: Asthma, COPD, CVA/TIA, Diabetes Mellitus, Deep Vein Thrombosis (DVT), GERD/Reflux, Hyperlipidemia, Hypertension, Neurologic Disorder, Osteoarthritis (OA), Pneumonia, Pulmonary Embolus (PE) Additional Past Medical History / Comment(s): MIGRAINES. " ANITICOAGULANT LUPUS". PNEUMOTHRORAX. PERIPHERAL EDEMA. History of Any Multi-Drug Resistant Organisms: None Reported Past Surgical History: Adenoidectomy, Appendectomy, Tonsillectomy Additional Past Surgical History / Comment(s): HAILE FILTER . VEIN S TRIPPING. STENTS IN "PELVIC AREA" NOVEMBER 2004. Past Anesthesia/Blood Transfusion Reactions: No Reported Reaction Past Psychological History: No Psychological Hx Reported Additional Psychological History / Comment(s): TAKES CYMBALTA FOR CARPAL TUNNEL. Smoking Status: Current every day smoker Past Alcohol Use History: None Reported Past Drug Use History: None Reported - Past Family History Mother Additional Family Medical History / Comment(s): heart disease, peripheral vascular disease. Father Family Medical History: Unable to Obtain Medications and Allergies Home Medications Medication Instructions Recorded Confirmed Type Atorvastatin [Lipitor] 80 mg PO HS 01/09/14 08/16/19 History Celecoxib [CeleBREX] 200 mg PO QAM 01/09/14 08/16/19 History Pregabalin [Lyrica] 300 mg PO BID 01/09/14 08/16/19 History Topiramate [Topamax] 25 mg PO BID 01/09/14 08/16/19 History Warfarin Sodium [Coumadin] 6 mg PO [id number] 01/09/14 08/16/19 History metFORMIN HCL [Glucophage] 500 mg PO BID 01/09/14 08/16/19 History oxyCODONE HCL/ACETAMINOPHEN 1 tab PO Q6HR PRN 01/09/14 08/16/19 History [Percocet 10-325 mg] Insulin Degludec [Tresiba 72 unit SQ HS 11/15/17 08/15/19 History Flextouch U-200] Lisinopril [Zestril] 20 mg PO DAILY 11/15/17 08/16/19 History Multivitamins, Thera [Multivitamin 1 tab PO DAILY 11/15/17 08/16/19 History (formulary)] Warfarin Sodium 9 mg PO AQUINO 05/10/18 08/16/19 History Budesonide-Formot 160-4.5 Mcg 2 puff INHALATION BID #1 inhaler 05/11/18 08/15/19 Rx [Symbicort 160-4.5 Mcg Inhaler] Albuterol Nebulized [Ventolin 2.5 mg INHALATION RT-QID PRN 08/15/19 08/16/19 History Nebulized] Docusate [Colace] 100 mg PO DAILY PRN 08/15/19 08/15/19 History Fluticasone Nasal [place] [Flonase 2 spr EA NOSTRIL DAILY 08/15/19 08/16/19 History Nasal [place]] Fluticasone/Umeclidin/Vilanter 1 puff INHALATION RT-DAILY 08/15/19 08/16/19 History [Trelegy Ellipta 100-62.5-25] Levofloxacin 750 mg PO DAILY 08/15/19 08/16/19 History Morphine Sulfate [Morphine Sulfate 30 mg PO Q8H 08/15/19 08/16/19 History ER] Nortriptyline [Pamelor] 50 mg PO HS 08/15/19 08/16/19 History Omeprazole [PriLOSEC] 20 mg PO DAILY 08/15/19 08/16/19 History Tiotropium [place] [Spiriva] 1 cap INHALATION DAILY 08/15/19 08/15/19 History diphenhydrAMINE [Benadryl] 25 mg PO DAILY 08/15/19 08/15/19 History Allergies Allergy/AdvReac Type Severity Reaction Status Date / Time baclofen Allergy Unknown Verified 08/16/19 09:07 Physical Exam Vitals: Vital Signs Temp Pulse Pulse Pulse Resp BP Pulse Ox 08/19/19 11:52 97.4 F L 63 15 133/86 95 08/19/19 11:44 100 08/19/19 11:35 96 08/19/19 08:40 100 08/19/19 08:32 100 08/19/19 08:00 97.3 F L 67 18 126/97 94 L 08/19/19 04:00 57 L 18 134/72 96 08/18/19 23:30 98.2 F 57 L 16 134/72 96 08/18/19 20:00 97.4 F L 69 18 138/78 94 L 08/18/19 16:00 98 F 120 H 18 121/87 96 08/18/19 15:45 118 H 08/18/19 15:28 118 H Intake and Output 08/18/19 08/19/19 08/19/19 22:59 06:59 14:59 Intake Total 120 540 Balance 120 540 Intake: Oral 120 540 Other: Voiding Method Urinal Urinal Urinal # Voids 2 1 Weight 146.1 kg Physical exam: General Appearance: Alert, cooperative, no distress, appears stated age. Skin: Ulceration of with bone involvement without necrosis to the forefoot plantar aspect of right foot and webbing between fourth and fifth digit of right foot. Purulent drainage noted, wound bed shows significant amount of of necr osis, eschar, fibrous and exudate. Periwound shows ecchymosis unsure of tunneling from superior ulceration to distal ulceration. all other Skin color, texture, tugor normal, no rashes or lesions. Neurologic: Alert oriented x3 Results CBC & Chem 7: 08/19/19 05:37 08/19/19 05:37 Labs: Abnormal Lab Results - Last 24 Hours (Table) 08/18/19 08/18/19 08/19/19 Range/Units 16:54 21:04 05:37 RBC 4.10 L (4.30-5.90) m/uL Hgb 12.9 L (13.0-17.5) gm/dL PT (9.0-12.0) sec INR (<1.2) Sodium (137-145) mmol/L Potassium (3.5-5.1) mmol/L BUN (9-20) mg/dL Glucose (74-99) mg/dL POC Glucose (mg/dL) 296 H 323 H (75-99) mg/dL Calcium (8.4-10.2) mg/dL 08/19/19 08/19/19 08/19/19 Range/Units 05:37 06:15 06:45 RBC (4.30-5.90) m/uL Hgb (13.0-17.5) gm/dL PT 18.5 H (9.0-12.0) sec INR 1.9 H (<1.2) Sodium 135 L (137-145) mmol/L Potassium 5.2 H (3.5-5.1) mmol/L BUN 28 H (9-20) mg/dL Glucose 318 H (74-99) mg/dL POC Glucose (mg/dL) 268 H (75-99) mg/dL Calcium 7.9 L (8.4-10.2) mg/dL 08/19/19 Range/Units 11:59 RBC (4.30-5.90) m/uL Hgb (13.0-17.5) gm/dL PT (9.0-12.0) sec INR (<1.2) Sodium (137-145) mmol/L Potassium (3.5-5.1) mmol/L BUN (9-20) mg/dL Glucose (74-99) mg/dL POC Glucose (mg/dL) 229 H (75-99) mg/dL Calcium (8.4-10.2) mg/dL Microbiology - Last 24 Hours (Table) 08/16/19 12:02 Gram Stain - Preliminary Foot - Left Wound Culture - Preliminary Methicillin resist S. aureus 08/16/19 12:02 Anaerobic Culture - Preliminary Foot - Left Anaerobic Gram Positive Cocci Anaerobic Gram Positive Cocci#2 08/18/19 13:40 Gram Stain - Preliminary Foot - Left Wound Culture - Preliminary 08/15/19 19:15 Blood Culture - Preliminary Blood No Growth after 72 hours Assessment and Plan (1) Diabetic foot ulcer Current Visit: Yes Status: Acute Code(s): E11.621 - TYPE 2 DIABETES MELLITUS WITH FOOT ULCER; L97.509 - NON-PRESSURE CHRONIC ULCER OTH PRT UNSP FOOT W UNSP SEVERITY SNOMED Code(s): 776405731 (2) Osteomyelitis Current Visit: No Status: Acute Code(s): M86.9 - OSTEOMYELITIS, UNSPECIFIED SNOMED Code(s): 32580554 Plan: Patient has a diabetic foot ulcer Sorenson grade 3. Dressing change observed to silver dry, dry gauze, rolled gauze and secure with paper tape. May use a BD if significant drainage is occurring. Only change silver on Monday. May change outer portion of dressing as needed to control drainage. Discussed with patient to continue with outpatient wound care. His next appointment would be on Monday with Dr. Naranjo. At that time patient can discussed with Dr. Naranjo his thoughts on continued wound care and/or amputation. Discussed with patient the goal is to heal the area without amputation. Patient verbalized understanding. Thank you kindly for the consultation. Any questions please contact the wound care center DNP note has been reviewed and discussed with Dr. Bates and the impression and plan of care has been directed as dictated.
--- NOTE | 2019-08-19 13:59 | P.PN ---
Subjective Progress Note Date: 08/19/19 His is a 64-year-old gentleman admitted to the hospital for atrial fibrillation, bilateral leg edema, bilateral lower extremity DVT with varicose veins, diabetes, hypertension, hyperlipidemia. He was initially in the intensive care unit, being followed now on the cardiac unit. He was seen and e xamined this morning, hemodynamically stable, his heart rate today in the 60s, blood pressure 126/90. Breathing is overall stable, denies any chest discomfort. We will decrease his aspirin to 81 mg daily. Objective - Vital Signs Vital signs: Vital Signs Temp 97.4 F L 08/19/19 11:52 Pulse 63 08/19/19 11:52 Resp 15 08/19/19 11:52 BP 133/86 08/19/19 11:52 Pulse Ox 95 08/19/19 11:52 Intake & Output 08/18/19 08/19/19 08/19/19 18:59 06:59 18:59 Intake Total 651.278 540 Balance 651.278 540 Weight 146.1 kg Intake: Intake, IV Titration 51.278 Amount Heparin Sod,Pork in 0.45% 51.278 NaCl 25,000 unit In 0.45 % NaCl 1 250ml.bag @ 17. 792 UNITS/KG/HR 23 mls/hr IV .[id number] [facility] Rx#: [id number] Oral 600 540 Other: Voiding Method Urinal Urinal # Voids 2 1 - Exam Gen: This is a 64-year-old male patient. He is resting in bed appears to be comfortable and in no acute distress. HEENT: Head is atraumatic, normocephalic. Pupils equal, round. Sclerae is anicteric. NECK: Supple. No JVD. No lymphadenopathy. No thyromegaly. LUNGS: Clear to auscultation. No wheezes or rhonchi. No intercostal retractions. HEART: Irregular rate and rhythm. Systolic murmur at the left lower sternal border. Heart rate 140s. ABDOMEN: Soft. Bowel sounds are present. No masses. No tenderness. EXTREMITIES: Bilateral pitting edema to the lower extremities, chronic stasis changes, cellulitis and ulcerations. NEUROLOGICAL: Patient is awake, alert and oriented x3. Cranial nerves 2 through 12 are grossly intact. - Labs CBC & Chem 7: 08/19/19 05:37 08/19/19 05:37 Labs: Abnormal Lab Results - Last 24 Hours (Table) 08/18/19 08/18/19 08/19/19 Range/Units 16:54 21:04 05:37 RBC 4.10 L (4.30-5.90) m/uL Hgb 12.9 L (13.0-17.5) gm/dL PT (9.0-12.0) sec INR (<1.2) Sodium (137-145) mmol/L Potassium (3.5-5.1) mmol/L BUN (9-20) mg/dL Glucose (74-99) mg/dL POC Glucose (mg/dL) 296 H 323 H (75-99) mg/dL Calcium (8.4-10.2) mg/dL 08/19/19 08/19/19 08/19/19 Range/Units 05:37 06:15 06:45 RBC (4.30-5.90) m/uL Hgb (13.0-17.5) gm/dL PT 18.5 H (9.0-12.0) sec INR 1.9 H (<1.2) Sodium 135 L (137-145) mmol/L Potassium 5.2 H (3.5-5.1) mmol/L BUN 28 H (9-20) mg/dL Glucose 318 H (74-99) mg/dL POC Glucose (mg/dL) 268 H (75-99) mg/dL Calcium 7.9 L (8.4-10.2) mg/dL 08/19/19 Range/Units 11:59 RBC (4.30-5.90) m/uL Hgb (13.0-17.5) gm/dL PT (9.0-12.0) sec INR (<1.2) Sodium (137-145) mmol/L Potassium (3.5-5.1) mmol/L BUN (9-20) mg/dL Glucose (74-99) mg/dL POC Glucose (mg/dL) 229 H (75-99) mg/dL Calcium (8.4-10.2) mg/dL Microbiology - Last 24 Hours (Table) 08/16/19 12:02 Gram Stain - Preliminary Foot - Left Wound Culture - Preliminary Methicillin resist S. aureus 08/16/19 12:02 Anaerobic Culture - Preliminary Foot - Left Anaerobic Gram Positive Cocci Anaerobic Gram Positive Cocci#2 08/18/19 13:40 Gram Stain - Preliminary Foot - Left Wound Culture - Preliminary 08/15/19 19:15 Blood Culture - Preliminary Blood No Growth after 72 hours Assessment and Plan Plan: Assessment and plan: #1 Persistent atrial fibrillation rate under better control today #2 Cellulitis of the lower extremities with ulcerations and leg edema #3 History of DVT Plan Cardiology's perspective, we'll recommend to continue this patient on his current medications. He may be able to transfer back to medical surgical unit i f his heart rate remained stable. DNP note has been reviewed, I agree with a documented findings and plan of care. Patient was seen and examined.
[2019-08-19 14:17] VITALS: BMI 39.2
--- NOTE | 2019-08-19 16:09 | P.PN ---
Subjective Progress Note Date: 08/19/19 Principal diagnosis: Principal diagnosis: Diabetic foot ulcer, possible osteomyelitis involving the left foot Persistent atrial fibrillation with poorly controlled ventricular rate Acute mental status change likely secondary to toxic metabolic encephalopathy related to infection 62-year-old white male with history of COPD, deep vein thrombosis/pulmonary embolism, diabetes/ neuropathy, degenerative joint disease, patient had previous history of bilateral deep vein thromboses and pulmonary embolism, chronically on anticoagulations therapy/Coumadin. Patient has been followed recently at the wound care center by Dr. Naranjo for chronic left foot plantar ulcer, and yesterday the patient was noticing foul-smelling discharge coming from the left foot ulcer. He was told by his primary care physician that he may have a foreign body in the foot. Hence the patient came into the ER. While in the ER, patient had shortness of breath and weakness, he was noted to be in atrial fibrillation and RVR. Patient was admitted, placed on Cardizem drip, cardiology consult was initiated, patient was placed on heparin, 08/17/2019 Patient remains in the ICU; patient remains in atrial fibrillation with RVR with heart rate in 1 teens to 130s, cardiology is on the case; patient is started on oral Cardizem, and increased his Lopressor to 50 mg by mouth twice a day. Patient is hemodynamically stable. Patient was evaluated by vascular surgery for his foot ulcer, and the recommendation was to have Dr. Naranjo see him; Dr. Naranjo is consulted and recommendations are pending. In the meantime the patient is receiving antibiotics as per infectious disease on the case and changed IV antibiotic therapy to vancomycin and Unasyn; Zosyn has been discontinued. Patient is complaining that his home medications have not been started, which I ordered His CBC is relatively normal INR is 2.5 electrolytes are normal renal profile is normal; patient has been cleared for transfer to [facility], and I have consulted Dr. Naranjo three-phase bone scan is pending 08/18/2019 Patient is evaluated in selective care unit; patient and family quite upset since patient was not seen by Dr. Naranjo is patient's primary media services specialist Patient's vital signs remained stable in form of a blood pressure 133/94, SpO2 of 95% on room air; lab review shows an INR of 2.7, potassium 5.2, BUN 30 and creatinine of 1.03; not count is slightly elevated at 11.7; patient's heart rate does fluctuate between 70-80 upto 130; cardiology recommending to continue with Cardizem at an increased dose of 60 mg 3 times a day along with Lopressor 50 mg daily Patient was evaluated by infection disease and underwent wound cleaning; recomm endations are to continue current antibiotic therapy; 08/19/2019 Patient is seen in follow-up stating that he would like to go home. Cardiology and infectious disease following the patient. Patient currently remains on IV antibiotics in the form of Unasyn and vancomycin. Preliminary cultures of the left leg wound showing gram-positive cocci with MRSA. Currently patient denies any chest pain, shortness of breath, or palpitations. Patient is afebrile. Patient denying any nausea or vomiting and is tolerating diet. INR today is 1.9 and will continue with Coumadin. Will repeat a.m. labs. Patient is presently rate controlled with Cardizem and metoprolol and will continue at this time. Will continue to monitor closely. Objective - Vital Signs Vital signs: Vital Signs Temp 97.4 F L 08/19/19 14:53 Pulse 67 08/19/19 14:53 Resp 12 08/19/19 14:53 BP 148/91 08/19/19 14:53 Pulse Ox 95 08/19/19 14:53 Intake & Output 08/18/19 08/19/19 08/19/19 18:59 06:59 18:59 Intake Total 651.278 780 Balance 651.278 780 Weight 146.1 kg 146.1 kg Intake: Intake, IV Titration 51.278 Amount Heparin Sod,Pork in 0.45% 51.278 NaCl 25,000 unit In 0.45 % NaCl 1 250ml.bag @ 17. 792 UNITS/KG/HR 23 mls/hr IV .[id number] [facility] Rx#: [id number] Oral 600 780 Other: Voiding Method Urinal Urinal # Voids 2 1 - Exam Head: Atraumatic normocephalic. HEENT:[Neck is supple.] [No neck masses.] [No thyromegaly.] [No JVD.] PERRLA, EOMI, no icterus. Chest: Diminished breath sounds at the bases with no crackles or wheezing noted. Cardiac Exam: S1, S2 are muffled Abdomen: [Soft, obese, nontender, no megaly, no rebound, no guarding, normal bowel sounds.] Extremities: [Evidence of bilateral lower extremity edema. There is left lower extremity swelling and redness. A 2.0 cm plantar ulcer on the forefoot left. With yellow drainage noted from the plantar aspect of the left foot. The ulcer seems to be quite deep, and the drainage seems to be foul-smelling. Slight improvement of the redness and swelling of the left lower extremity. Neurological Exam: Alert and oriented 3. - Labs CBC & Chem 7: 08/19/19 05:37 08/19/19 05:37 Labs: Abnormal Lab Results - Last 24 Hours (Table) 08/18/19 08/18/19 08/19/19 Range/Units 16:54 21:04 05:37 RBC 4.10 L (4.30-5.90) m/uL Hgb 12.9 L (13.0-17.5) gm/dL PT (9.0-12.0) sec INR (<1.2) Sodium (137-145) mmol/L Potassium (3.5-5.1) mmol/L BUN (9-20) mg/dL Glucose (74-99) mg/dL POC Glucose (mg/dL) 296 H 323 H (75-99) mg/dL Calcium (8.4-10.2) mg/dL 08/19/19 08/19/19 08/19/19 Range/Units 05:37 06:15 06:45 RBC (4.30-5.90) m/uL Hgb (13.0-17.5) gm/dL PT 18.5 H (9.0-12.0) sec INR 1.9 H (<1.2) Sodium 135 L (137-145) mmol/L Potassium 5.2 H (3.5-5.1) mmol/L BUN 28 H (9-20) mg/dL Glucose 318 H (74-99) mg/dL POC Glucose (mg/dL) 268 H (75-99) mg/dL Calcium 7.9 L (8.4-10.2) mg/dL 08/19/19 Range/Units 11:59 RBC (4.30-5.90) m/uL Hgb (13.0-17.5) gm/dL PT (9.0-12.0) sec INR (<1.2) Sodium (137-145) mmol/L Potassium (3.5-5.1) mmol/L BUN (9-20) mg/dL Glucose (74-99) mg/dL POC Glucose (mg/dL) 229 H (75-99) mg/dL Calcium (8.4-10.2) mg/dL Microbiology - Last 24 Hours (Table) 08/16/19 12:02 Gram Stain - Final Foot - Left Wound Culture - Final Methicillin resist S. aureus 08/16/19 12:02 Anaerobic Culture - Preliminary Foot - Left Anaerobic Gram Positive Cocci Anaerobic Gram Positive Cocci#2 08/18/19 13:40 Gram Stain - Preliminary Foot - Left Wound Culture - Preliminary 08/15/19 19:15 Blood Culture - Preliminary Blood No Growth after 72 hours Assessment and Plan Assessment: Diabetic foot ulcer, possible osteomyelitis involving the left foot 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; patient has history of Ong filter placement; patient remains on anticoagulation therapy Persistent atrial fibrillation with poorly controlled ventricular rate most likely secondary to chronic thromboembolic disease/pulmonary embolism Type 2 diabetes Generalized anxiety disorder COPD; not in exacerbation CODE STATUS; full code Recommendations and discussion: Recommend to continue current medications, management, and symptomatic treatment. Infectious disease and cardiology are covering. Anaerobic cultures preliminary showing gram-positive cocci along with MRSA of the left foot. Continue with IV antibiotics in the form of Unasyn and vancomycin. Patient was transitioned oral Cardizem and tolerating well. Patient to continue with Coumadin and monitor INR levels closely. Patient would like to go home with home care once discharged. Further recommendations to follow. Possible discharge in 24-48 hours.
[2019-08-19 16:48] LABS: Glucose,Whole Blood 245 mg/dL (75-99)
[2019-08-19] MEDS: WARFARIN 3 MG TAB PO SCH (17:23)
[2019-08-19 21:00] LABS: Glucose,Whole Blood 306 mg/dL (75-99)
[2019-08-19] MEDS: INSULIN DETEMIR (LEVEMIR) 100 UNIT/ML SYR SQ SCH (21:26)
[2019-08-19] MEDS: NORTRIPTYLINE 25 MG CAP PO SCH (21:26)
[2019-08-19] MEDS: ATORVASTATIN 80 MG TAB PO SCH (21:26)
[2019-08-19 23:02] LABS: Glucose,Whole Blood 356 mg/dL (75-99)
[2019-08-19] MEDS ORDERED: INSULIN REGULAR BOLUS (FROM DRIP BAG) IV ONE (23:14)
[2019-08-20] MEDS: AMPICILLIN-SULBACTAM 3 GM in SODIUM CHLORIDE 0.9% 100 ML IVPB SCH ×4 (00:04→21:07)
[2019-08-20 00:08] LABS: Glucose,Whole Blood 321 mg/dL (75-99)
[2019-08-20] MEDS: methylPREDNISolone SOD SUCCI 125 MG/2 ML VIAL IV SCH ×4 (00:34→17:16)
[2019-08-20 00:37] LABS: Glucose,Whole Blood 351 mg/dL (75-99)
[2019-08-20 01:02] LABS: Glucose,Whole Blood 351 mg/dL (75-99)
[2019-08-20 01:31] LABS: Glucose,Whole Blood 313 mg/dL (75-99)
[2019-08-20 02:04] LABS: Glucose,Whole Blood 312 mg/dL (75-99)
[2019-08-20 02:34] LABS: Glucose,Whole Blood 308 mg/dL (75-99)
[2019-08-20 03:01] LABS: Glucose,Whole Blood 297 mg/dL (75-99)
[2019-08-20 03:30] LABS: Glucose,Whole Blood 267 mg/dL (75-99)
[2019-08-20] MEDS: VANCOMYCIN 2,000 MG in SODIUM CHLORIDE 0.9% 500 ML 500 ML IVPB SCH ×2 (03:54→17:11)
[2019-08-20 04:01] LABS: Glucose,Whole Blood 207 mg/dL (75-99)
--- NOTE | 2019-08-20 06:11 | PN ---
PROGRESS NOTE DATE OF SERVICE: 08/19/2019 REASON FOR FOLLOWUP: Left foot osteomyelitis. INTERVAL HISTORY: The patient is currently afebrile. Patient has been breathing comfortably. Denies having any chest pain, shortness of breath or cough. No nausea, vomiting, abdominal pain. left foot area. PHYSICAL EXAMINATION: Blood pressure is 140/91 with a pulse of 67, temperature 97.4. He is 95% on room air. General description is a middle-aged male lying in bed in no distress. Respiratory system: Unlabored breathing and is clear to auscultation anteriorly. Heart: S1, S2. Regular rate and rhythm. ABDOMEN: Soft, no tenderness. Left foot is currently dressed up. No obvious drainage on the dressing. LABS: Creatinine 0.89. Wound culture with aerobic gram-positive cocci and MRSA. DIAGNOSTIC IMPRESSION AND PLAN: Patient with left foot wound at the base of his 4th toe with wound extending from plantar aspect to the dorsum aspect. Likely component of osteomyelitis culture showing MRSA and anaerobes. The patient will get a PICC line. Still waiting for Podiatry to see the patient for surgical debridement. Antibiotic for discharge will be the vancomycin, Flagyl. Continue with supportive care. MMODL / IJN: [id number] /
[2019-08-20] MEDS: INSULIN REGULAR 100 UNIT in SODIUM CHLORIDE 0.9% 100 ML IV SCH ×3 (06:12)
[2019-08-20 06:23] LABS: Glucose,Whole Blood 140 mg/dL (75-99)
[2019-08-20] MEDS: IPRATROPIUM 0.5 MG/2.5 ML NEBU INHALATION SCH ×4 (07:06→21:09)
[2019-08-20] MEDS: SYMBICORT 160-4.5 MCG INHALER INHALATION SCH ×2 (07:06→21:09)
[2019-08-20] MEDS: INSULIN ASPART (NovoLOG) 100 UNIT/ML VIAL SQ SCH ×8 (07:10→21:14)
[2019-08-20 07:54] LABS: INR 1.7 (<1.2); Prothrombin Time 16.7 sec (9.0-12.0)
[2019-08-20 08:00] LABS: African American GFR (CKD) >90 (>60 ml/min/1.73 sqM); Anion Gap 5 mmol/L; Blood Urea Nitrogen 29 mg/dL (9-20); Calcium 8.2 mg/dL (8.4-10.2); Carbon Dioxide 27 mmol/L (22-30); Chloride 104 mmol/L (98-107); Glucose 97 mg/dL (74-99); Non-African American GFR(CKD) >90 (>60 ml/min/1.73 sqM); Potassium 5.2 mmol/L (3.5-5.1); Sodium 136 mmol/L (137-145)
[2019-08-20 08:20] LABS: Glucose,Whole Blood 124 mg/dL (75-99)
[2019-08-20] MEDS: MORPHINE SULFATE ER 30 MG TABLET PO SCH ×2 (08:28→17:12)
[2019-08-20] MEDS: ASPIRIN 81 MG PO SCH (08:28)
[2019-08-20] MEDS: PANTOPRAZOLE 40 MG TABLET PO SCH (08:28)
[2019-08-20] MEDS: MULTIVITAMINS, THERA 1 EACH TAB PO SCH (08:29)
[2019-08-20] MEDS: METOPROLOL TARTRATE 50 MG TAB PO SCH ×2 (08:29→20:57)
[2019-08-20] MEDS: FLUTICASONE 50MCG/SPRAY NASAL 16GM EA NOSTRIL SCH (08:29)
[2019-08-20] MEDS: diphenhydrAMINE 25 MG CAP PO SCH (08:29)
[2019-08-20] MEDS: PREGABALIN 100 MG CAP PO SCH ×2 (08:29→20:57)
[2019-08-20] MEDS: LISINOPRIL 20 MG TAB PO SCH (08:29)
--- NOTE | 2019-08-20 08:37 | P.GSHP ---
History of Present Illness H&P Date: 08/20/19 Chief Complaint: Cellulitis left foot with non-pressure ulcer with bone invo lvement Patient 64-year-old white male who presented the emergency room on Monday08/11/2019. Patient was subsequently admitted for management of a developing foot infection patient states that he noted an odor from his foot and this is what prompted him to go to the emergency room. Patient has this ulcer for approximately 1 month duration. Patient was seen by his primary care doctor then referred to the wound care center. The wound care center and is being treated 5 myself for a diabetic foot ulcer with osteomyelitis of the left foot. Patient today is stable and is receiving both vancomycin and Unasyn. Past Medical History Past Medical History: Asthma, COPD, CVA/TIA, Diabetes Mellitus, Deep Vein Thrombosis (DVT), GERD/Reflux, Hyperlipidemia, Hypertension, Neurologic Disorder, Osteoarthritis (OA), Pneumonia, Pulmonary Embolus (PE) Additional Past Medical History / Comment(s): MIGRAINES. " ANITICOAGULANT LUPUS". PNEUMOTHRORAX. PERIPHERAL EDEMA. History of Any Multi-Drug Resistant Organisms: None Reported Past Surgical History: Adenoidectomy, Appendectomy, Tonsillectomy Additional Past Surgical History / Comment(s): HAILE FILTER . VEIN STRIPPING. STENTS IN "PELVIC AREA" NOVEMBER 2004. Past Anesthesia/Blood Transfusion Reactions: No Reported Reaction Past Psychological History: No Psychological Hx Reported Additional Psychological History / Comment(s): TAKES CYMBALTA FOR CARPAL TUNNEL. Smoking Status: Current every day smoker Past Alcohol Use History: None Reported Past Drug Use History: None Reported - Past Family History Mother Additional Family Medical History / Comment(s): heart disease, peripheral vascular disease. Father Family Medical History: Unable to Obtain Medications and Allergies Home Medications Medication Instructions Recorded Confirmed Type Atorvastatin [Lipitor] 80 mg PO HS 01/09/14 08/16/19 History Celecoxib [CeleBREX] 200 mg PO QAM 01/09/14 08/16/19 History Pregabalin [Lyrica] 300 mg PO BID 01/09/14 08/16/19 History Topiramate [Topamax] 25 mg PO BID 01/09/14 08/16/19 History Warfarin Sodium [Coumadin] 6 mg PO [id number] 01/09/14 08/16/19 History metFORMIN HCL [Glucophage] 500 mg PO BID 01/09/14 08/16/19 History oxyCODONE HCL/ACETAMINOPHEN 1 tab PO Q6HR PRN 01/09/14 08/16/19 History [Percocet 10-325 mg] Insulin Degludec [Tresiba 72 unit SQ HS 11/15/17 08/15/19 History Flextouch U-200] Lisinopril [Zestril] 20 mg PO DAILY 11/15/17 08/16/19 History Multivitamins, Thera [Multivitamin 1 tab PO DAILY 11/15/17 08/16/19 History (formulary)] Warfarin Sodium 9 mg PO AQUINO 05/10/18 08/16/19 History Budesonide-Formot 160-4.5 Mcg 2 puff INHALATION BID #1 inhaler 05/11/18 08/15/19 Rx [Symbicort 160-4.5 Mcg Inhaler] Albuterol Nebulized [Ventolin 2.5 mg INHALATION RT-QID PRN 08/15/19 08/16/19 History Nebulized] Docusate [Colace] 100 mg PO DAILY PRN 08/15/19 08/15/19 History Fluticasone Nasal [place] [Flonase 2 spr EA NOSTRIL DAILY 08/15/19 08/16/19 History Nasal [place]] Fluticasone/Umeclidin/Vilanter 1 puff INHALATION RT-DAILY 08/15/19 08/16/19 History [Trelegy Ellipta 100-62.5-25] Levofloxacin 750 mg PO DAILY 08/15/19 08/16/19 History Morphine Sulfate [Morphine Sulfate 30 mg PO Q8H 08/15/19 08/16/19 History ER] Nortriptyline [Pamelor] 50 mg PO HS 08/15/19 08/16/19 History Omeprazole [PriLOSEC] 20 mg PO DAILY 08/15/19 08/16/19 History Tiotropium [place] [Spiriva] 1 cap INHALATION DAILY 08/15/19 08/15/19 History diphenhydrAMINE [Benadryl] 25 mg PO DAILY 08/15/19 08/15/19 History Allergies Allergy/AdvReac Type Severity Reaction Status Date / Time baclofen Allergy Unknown Verified 08/16/19 09:07 Surgical - Exam Vital Signs Temp Pulse Resp BP Pulse Ox 98.2 F 115 H 18 94/51 99 08/15/19 17:33 08/15/19 17:33 08/15/19 17:33 08/15/19 17:33 08/15/19 17:33 - Cardiovascular Pedal pulses are diminished due to the edema but present bilateral skin temperature texture tumor normal bilateral there is no digital hair 10 - Integumentary Patient has a full-thickness foot ulcer with necrotic tissue extending from beneath the fourth metatarsal head and extending to the fourth interdigital space. There is necrosis of the subcutaneous tissue as well as the surrounding dermis. There is no purulence at this time there is no erythema there is edema of the entire left lower extremity. The ulcer measures approximately 1-1/2 cm by half centimeter penetrating down to bone of the fourth metatarsal head ulcer base of the proximal phalanx of the fourth digit after debridement the flexor tendon to the fourth digit was exposed. - Neurologic Patient has diabetic neuropathy with loss of protective sensation up to including the lower leg. - Musculoskeletal All inverters everters plantar flexors dorsiflexors grossly intact and symmetrical bilateral Results - Labs 08/19/19 05:37 08/20/19 06:52 Abnormal Lab Results - Last 24 Hours (Table) 08/19/19 08/19/19 08/19/19 Range/Units 11:59 16:47 20:59 PT (9.0-12.0) sec INR (<1.2) Sodium (137-145) mmol/L Potassium (3.5-5.1) mmol/L BUN (9-20) mg/dL POC Glucose (mg/dL) 229 H 245 H 306 H (75-99) mg/dL Calcium (8.4-10.2) mg/dL 08/19/19 08/19/19 08/20/19 Range/Units 23:00 23:50 00:35 PT (9.0-12.0) sec INR (<1.2) Sodium (137-145) mmol/L Potassium (3.5-5.1) mmol/L BUN (9-20) mg/dL POC Glucose (mg/dL) 356 H 321 H 351 H (75-99) mg/dL Calcium (8.4-10.2) mg/dL 08/20/19 08/20/19 08/20/19 Range/Units 01:01 01:30 02:01 PT (9.0-12.0) sec INR (<1.2) Sodium (137-145) mmol/L Potassium (3.5-5.1) mmol/L BUN (9-20) mg/dL POC Glucose (mg/dL) 351 H 313 H 312 H (75-99) mg/dL Calcium (8.4-10.2) mg/dL 08/20/19 08/20/19 08/20/19 Range/Units 02:32 02:59 03:28 PT (9.0-12.0) sec INR (<1.2) Sodium (137-145) mmol/L Potassium (3.5-5.1) mmol/L BUN (9-20) mg/dL POC Glucose (mg/dL) 308 H 297 H 267 H (75-99) mg/dL Calcium (8.4-10.2) mg/dL 08/20/19 08/20/19 08/20/19 Range/Units 03:59 06:11 06:52 PT 16.7 H (9.0-12.0) sec INR 1.7 H (<1.2) Sodium (137-145) mmol/L Potassium (3.5-5.1) mmol/L BUN (9-20) mg/dL POC Glucose (mg/dL) 207 H 140 H (75-99) mg/dL Calcium (8.4-10.2) mg/dL 08/20/19 08/20/19 Range/Units 06:52 08:08 PT (9.0-12.0) sec INR (<1.2) Sodium 136 L (137-145) mmol/L Potassium 5.2 H (3.5-5.1) mmol/L BUN 29 H (9-20) mg/dL POC Glucose (mg/dL) 124 H (75-99) mg/dL Calcium 8.2 L (8.4-10.2) mg/dL Microbiology - Last 24 Hours (Table) 08/15/19 19:15 Blood Culture - Preliminary Blood No Growth after 96 hours 08/16/19 12:02 Gram Stain - Final Foot - Left Wound Culture - Final Methicillin resist S. aureus 08/16/19 12:02 Anaerobic Culture - Preliminary Foot - Left Anaerobic Gram Positive Cocci Anaerobic Gram Positive Cocci#2 Diabetes panel 08/20/19 Range/Units 06:52 Sodium 136 L (137-145) mmol/L Potassium 5.2 H (3.5-5.1) mmol/L Chloride 104 (98-107) mmol/L Carbon Dioxide 27 (22-30) mmol/L BUN 29 H (9-20) mg/dL Creatinine 0.84 (0.66-1.25) mg/dL Glucose 97 (74-99) mg/dL Calcium 8.2 L (8.4-10.2) mg/dL Calcium panel 08/20/19 Range/Units 06:52 Calcium 8.2 L (8.4-10.2) mg/dL Pituitary panel 08/20/19 Range/Units 06:52 Sodium 136 L (137-145) mmol/L Potassium 5.2 H (3.5-5.1) mmol/L Chloride 104 (98-107) mmol/L Carbon Dioxide 27 (22-30) mmol/L BUN 29 H (9-20) mg/dL Creatinine 0.84 (0.66-1.25) mg/dL Glucose 97 (74-99) mg/dL Calcium 8.2 L (8.4-10.2) mg/dL Adrenal panel 08/20/19 Range/Units 06:52 Sodium 136 L (137-145) mmol/L Potassium 5.2 H (3.5-5.1) mmol/L Chloride 104 (98-107) mmol/L Carbon Dioxide 27 (22-30) mmol/L BUN 29 H (9-20) mg/dL Creatinine 0.84 (0.66-1.25) mg/dL Glucose 97 (74-99) mg/dL Calcium 8.2 L (8.4-10.2) mg/dL Assessment and Plan Assessment: Nonpressure ulcer of the left foot with involvement of bone Cellulitis left foot Hypertension Diabetes Plan: Exam. Review of chart and discussions with patient we debrided the necrotic tissue to lessen the bioburden of the wound. This wound extends deeper into the soft tissues acquire possible amputation of the digit and/or I&D. Patient would prefer to have definitive care with amputation of the infected part. Discussed with patient that a another surgeon we'll have to perform this procedure at this time. Patient understands this will proceed with plan. Thank you for this consultation
[2019-08-20] MEDS: DILTIAZEM ORAL 60 MG TAB PO SCH ×3 (08:53→21:54)
[2019-08-20] MEDS: TOPIRAMATE 25 MG TAB PO SCH ×2 (08:53→21:54)
[2019-08-20 09:18] LABS: Glucose,Whole Blood 160 mg/dL (75-99)
[2019-08-20 11:35] LABS: Glucose,Whole Blood 142 mg/dL (75-99)
--- NOTE | 2019-08-20 13:10 | P.GSCN ---
History of Present Illness History of present illness: 64-year-old white male, patient was seen has a wound on his left foot plantar aspect for the past few weeks there is a necrotic wound noted on the plantar aspect and between the webspace and fourth and fifth toe. Patient is scheduled to have a left foot fourth and fifth toe amputation with wound debridement on the plantar aspect of left foot Medical history history of diabetes, history of atrial fibrillation, history of diabetes, history of obesity Surgical history patient had a filter placed in the past On examination neck is supple no bruit appreciated Chest clear first and second sound normal good entry both lungs Abdomen soft nontender Vascular examination femorals are palpable bilateral posterior tibial dorsal pedis but the Doppler patient has a infected wound left foot plantar aspect with the involving the fourth and fifth toe with wet gangrene Plan is amputation of the left foot fourth and fifth toe and a debridement plantar aspect of the foot risk and complication discussed thank you Past Medical History Past Medical History: Asthma, COPD, CVA/TIA, Diabetes Mellitus, Deep Vein Thrombosis (DVT), GERD/Reflux, Hyperlipidemia, Hypertension, Neurologic Disorder, Osteoarthritis (OA), Pneumonia, Pulmonary Embolus (PE) Additional Past Medical History / Comment(s): MIGRAINES. " ANITICOAGULANT LUPU S". PNEUMOTHRORAX. PERIPHERAL EDEMA. History of Any Multi-Drug Resistant Organisms: None Reported Past Surgical History: Adenoidectomy, Appendectomy, Tonsillectomy Additional Past Surgical History / Comment(s): HAILE FILTER . VEIN STRIPPING. STENTS IN "PELVIC AREA" NOVEMBER 2004. Past Anesthesia/Blood Transfusion Reactions: No Reported Reaction Past Psychological History: No Psychological Hx Reported Additional Psychological History / Comment(s): TAKES CYMBALTA FOR CARPAL TUNNEL. Smoking Status: Current every day smoker Past Alcohol Use History: None Reported Past Drug Use History: None Reported - Past Family History Mother Additional Family Medical History / Comment(s): heart disease, peripheral vascular disease. Father Family Medical History: Unable to Obtain Medications and Allergies Home Medications Medication Instructions Recorded Confirmed Type Atorvastatin [Lipitor] 80 mg PO HS 01/09/14 08/16/19 History Celecoxib [CeleBREX] 200 mg PO QAM 01/09/14 08/16/19 History Pregabalin [Lyrica] 300 mg PO BID 01/09/14 08/16/19 History Topiramate [Topamax] 25 mg PO BID 01/09/14 08/16/19 History Warfarin Sodium [Coumadin] 6 mg PO [id number] 01/09/14 08/16/19 History metFORMIN HCL [Glucophage] 500 mg PO BID 01/09/14 08/16/19 History oxyCODONE HCL/ACETAMINOPHEN 1 tab PO Q6HR PRN 01/09/14 08/16/19 History [Percocet 10-325 mg] Insulin Degludec [Tresiba 72 unit SQ HS 11/15/17 08/15/19 History Flextouch U-200] Lisinopril [Zestril] 20 mg PO DAILY 11/15/17 08/16/19 History Multivitamins, Thera [Multivitamin 1 tab PO DAILY 11/15/17 08/16/19 History (formulary)] Warfarin Sodium 9 mg PO AQUINO 05/10/18 08/16/19 History Budesonide-Formot 160-4.5 Mcg 2 puff INHALATION BID #1 inhaler 05/11/18 08/15/19 Rx [Symbicort 160-4.5 Mcg Inhaler] Albuterol Nebulized [Ventolin 2.5 mg INHALATION RT-QID PRN 08/15/19 08/16/19 History Nebulized] Docusate [Colace] 100 mg PO DAILY PRN 08/15/19 08/15/19 History Fluticasone Nasal Stryker [Flonase 2 spr EA NOSTRIL DAILY 08/15/19 08/16/19 His tory Nasal Stryker] Fluticasone/Umeclidin/Vilanter 1 puff INHALATION RT-DAILY 08/15/19 08/16/19 History [Trelegy Ellipta 100-62.5-25] Levofloxacin 750 mg PO DAILY 08/15/19 08/16/19 History Morphine Sulfate [Morphine Sulfate 30 mg PO Q8H 08/15/19 08/16/19 History ER] Nortriptyline [Pamelor] 50 mg PO HS 08/15/19 08/16/19 History Omeprazole [PriLOSEC] 20 mg PO DAILY 08/15/19 08/16/19 History Tiotropium Byars [Spiriva] 1 cap INHALATION DAILY 08/15/19 08/15/19 History diphenhydrAMINE [Benadryl] 25 mg PO DAILY 08/15/19 08/15/19 History Allergies Allergy/AdvReac Type Severity Reaction Status Date / Time baclofen Allergy Unknown Verified 08/16/19 09:07 Surgical - Exam Vital Signs Temp Pulse Resp BP Pulse Ox 98.2 F 115 H 18 94/51 99 08/15/19 17:33 08/15/19 17:33 08/15/19 17:33 08/15/19 17:33 08/15/19 17:33 Results - Labs 08/19/19 05:37 08/20/19 06:52 Abnormal Lab Results - Last 24 Hours (Table) 08/19/19 08/19/19 08/19/19 Range/Units 16:47 20:59 23:00 PT (9.0-12.0) sec INR (<1.2) Sodium (137-145) mmol/L Potassium (3.5-5.1) mmol/L BUN (9-20) mg/dL POC Glucose (mg/dL) 245 H 306 H 356 H (75-99) mg/dL Calcium (8.4-10.2) mg/dL 08/19/19 08/20/19 08/20/19 Range/Units 23:50 00:35 01:01 PT (9.0-12.0) sec INR (<1.2) Sodium (137-145) mmol/L Potassium (3.5-5.1) mmol/L BUN (9-20) mg/dL POC Glucose (mg/dL) 321 H 351 H 351 H (75-99) mg/dL Calcium (8.4-10.2) mg/dL 08/20/19 08/20/19 08/20/19 Range/Units 01:30 02:01 02:32 PT (9.0-12.0) sec INR (<1.2) Sodium (137-145) mmol/L Potassium (3.5-5.1) mmol/L BUN (9-20) mg/dL POC Glucose (mg/dL) 313 H 312 H 308 H (75-99) mg/dL Calcium (8.4-10.2) mg/dL 08/20/19 08/20/19 08/20/19 Range/Units 02:59 03:28 03:59 PT (9.0-12.0) sec INR (<1.2) Sodium (137-145) mmol/L Potassium (3.5-5.1) mmol/L BUN (9-20) mg/dL POC Glucose (mg/dL) 297 H 267 H 207 H (75-99) mg/dL Calcium (8.4-10.2) mg/dL 08/20/19 08/20/19 08/20/19 Range/Units 06:11 06:52 06:52 PT 16.7 H (9.0-12.0) sec INR 1.7 H (<1.2) Sodium 136 L (137-145) mmol/L Potassium 5.2 H (3.5-5.1) mmol/L BUN 29 H (9-20) mg/dL POC Glucose (mg/dL) 140 H (75-99) mg/dL Calcium 8.2 L (8.4-10.2) mg/dL 08/20/19 08/20/19 08/20/19 Range/Units 08:08 09:17 11:33 PT (9.0-12.0) sec INR (<1.2) Sodium (137-145) mmol/L Potassium (3.5-5.1) mmol/L BUN (9-20) mg/dL POC Glucose (mg/dL) 124 H 160 H 142 H (75-99) mg/dL Calcium (8.4-10.2) mg/dL Microbiology - Last 24 Hours (Table) 08/15/19 19:15 Blood Culture - Preliminary Blood No Growth after 96 hours 08/16/19 12:02 Gram Stain - Final Foot - Left Wound Culture - Final Methicillin resist S. aureus 08/16/19 12:02 Anaerobic Culture - Preliminary Foot - Left Anaerobic Gram Positive Cocci Anaerobic Gram Positive Cocci#2 Diabetes panel 08/20/19 Range/Units 06:52 Sodium 136 L (137-145) mmol/L Potassium 5.2 H (3.5-5.1) mmol/L Chloride 104 (98-107) mmol/L Carbon Dioxide 27 (22-30) mmol/L BUN 29 H (9-20) mg/dL Creatinine 0.84 (0.66-1.25) mg/dL Glucose 97 (74-99) mg/dL Calcium 8.2 L (8.4-10.2) mg/dL Calcium panel 08/20/19 Range/Units 06:52 Calcium 8.2 L (8.4-10.2) mg/dL Pituitary panel 08/20/19 Range/Units 06:52 Sodium 136 L (137-145) mmol/L Potassium 5.2 H (3.5-5.1) mmol/L Chloride 104 (98-107) mmol/L Carbon Dioxide 27 (22-30) mmol/L BUN 29 H (9-20) mg/dL Creatinine 0.84 (0.66-1.25) mg/dL Glucose 97 (74-99) mg/dL Calcium 8.2 L (8.4-10.2) mg/dL Adrenal panel 08/20/19 Range/Units 06:52 Sodium 136 L (137-145) mmol/L Potassium 5.2 H (3.5-5.1) mmol/L Chloride 104 (98-107) mmol/L Carbon Dioxide 27 (22-30) mmol/L BUN 29 H (9-20) mg/dL Creatinine 0.84 (0.66-1.25) mg/dL Glucose 97 (74-99) mg/dL Calcium 8.2 L (8.4-10.2) mg/dL
[2019-08-20] MEDS ORDERED: IV FLUID CONTINUATION 250 ML IV ONE (13:49)
[2019-08-20] MEDS ORDERED: ONDANSETRON 4 MG/2 ML VIAL IVP ONE (13:55)
[2019-08-20] MEDS ORDERED: MIDAZOLAM 2 MG/2 ML VIAL ONE (14:00)
[2019-08-20] MEDS ORDERED: KETAMINE 10 MG/ML 20 ML VIAL ONE (14:00)
[2019-08-20] MEDS ORDERED: LIDOCAINE 1% INJ 10MG/ML (20 ML MDV) SQ ONE (14:24)
[2019-08-20] MEDS ORDERED: VANCOMYCIN TROUGH DUE 1 EACH MISC MISCELLANE ONE (15:00)
--- NOTE | 2019-08-20 15:04 | P.PN ---
Subjective Progress Note Date: 08/20/19 Principal diagnosis: Principal diagnosis: Diabetic foot ulcer, possible osteomyelitis involving the left foot Persistent atrial fibrillation with poorly controlled ventricular rate Acute mental status change likely secondary to toxic metabolic encephalopathy related to infection 62-year-old white male with history of COPD, deep vein thrombosis/pulmonary embolism, diabetes/ neuropathy, degenerative joint disease, patient had previous history of bilateral deep vein thromboses and pulmonary embolism, chronically on anticoagulations therapy/Coumadin. Patient has been followed recently at the wound care center by Dr. Naranjo for chronic left foot plantar ulcer, and yesterday the patient was noticing foul-smelling discharge coming from the left foot ulcer. He was told by his primary care physician that he may have a foreign body in the foot. Hence the patient came into the ER. While in the ER, patient had shortness of breath and weakness, he was noted to be in atrial fibrillation and RVR. Patient was admitted, placed on Cardizem drip, cardiology consult was initiated, patient was placed on heparin, 08/17/2019 Patient remains in the ICU; patient remains in atrial fibrillation with RVR with heart rate in 1 teens to 130s, cardiology is on the case; patient is started on oral Cardizem, and increased his Lopressor to 50 mg by mouth twice a day. Patient is hemodynamically stable. Patient was evaluated by vascular surgery for his foot ulcer, and the recommendation was to have Dr. Naranjo see him; Dr. Naranjo is consulted and recommendations are pending. In the meantime the patient is receiving antibiotics as per infectious disease on the case and changed IV antibiotic therapy to vancomycin and Unasyn; Zosyn has been discontinued. Patient is complaining that his home medications have not been started, which I ordered His CBC is relatively normal INR is 2.5 electrolytes are normal renal profile is normal; patient has been cleared for transfer to [facility], and I have consulted Dr. Naranjo three-phase bone scan is pending 08/18/2019 Patient is evaluated in selective care unit; patient and family quite upset since patient was not seen by Dr. Naranjo is patient's primary family program specialist Patient's vital signs remained stable in form of a blood pressure 133/94, SpO2 of 95% on room air; lab review shows an INR of 2.7, potassium 5.2, BUN 30 and creatinine of 1.03; not count is slightly elevated at 11.7; patient's heart rate does fluctuate between 70-80 upto 130; cardiology recommending to continue with Cardizem at an increased dose of 60 mg 3 times a day along with Lopressor 50 mg daily Patient was evaluated by infection disease and underwent wound cleaning; recomm endations are to continue current antibiotic therapy; 08/19/2019 Patient is seen in follow-up stating that he would like to go home. Cardiology and infectious disease following the patient. Patient currently remains on IV antibiotics in the form of Unasyn and vancomycin. Preliminary cultures of the left leg wound showing gram-positive cocci with MRSA. Currently patient denies any chest pain, shortness of breath, or palpitations. Patient is afebrile. Patient denying any nausea or vomiting and is tolerating diet. INR today is 1.9 and will continue with Coumadin. Will repeat a.m. labs. Patient is presently rate controlled with Cardizem and metoprolol and will continue at this time. Will continue to monitor closely. 08/20/2019 Patient seen in follow-up today awaiting a consult with Dr. Mcintyre for possible amputation of the left foot fourth and fifth toe along with wound debridement of the plantar aspect of the left foot and is being closely monitored. Patient was seen by Dr. Naranjo recommending surgical consult with Dr. Mcintyre. Patient is scheduled for surgery this afternoon. Infectious disease is following as well. Patient did receive a PICC line and is currently on IV antibiotics in the form of Unasyn and vancomycin and will continue at this time. Case management and social work following for possible ECF to continue with IV antibiotic therapy once stabilized. Patient is currently on anticoagulation with Coumadin and PT/INR this morning was 1.7 and will repeat a.m. labs. No reports of chest pain or palpitations. Patient is afebrile. Objective - Vital Signs Vital signs: Vital Signs Temp 97 F L 08/20/19 13:51 Pulse 69 08/20/19 13:51 Resp 18 08/20/19 13:51 BP 148/90 08/20/19 13:51 Pulse Ox 98 08/20/19 13:51 Intake & Output 08/19/19 08/20/19 08/20/19 18:59 06:59 18:59 Intake Total 1220 86.911 18.028 Balance 1220 86.911 18.028 Weight 146.1 kg Intake: IV 0 Intake, IV Titration 200 86.911 18.028 Amount Ampicillin-Sulbactam 3 gm 200 In Sodium Chloride 0.9% 100 ml @ 200 mls/hr IVPB Q6HR HELENE Rx#:[id number] Insulin Regular 100 unit 86.911 18.028 In Sodium Chloride 0.9% 100 ml @ Titrate IV .Q0M HELENE Rx#:[id number] Oral 1020 Other: Voiding Method Urinal Urinal # Voids 1 1 1 - Exam General: This is a 64-year-old male lying in bed asleep but easily arousable, alert and oriented 3, well-developed, well-nourished. Temp is 97.8F, pulse is 66, respirations are 16, blood pressure is 150/92, oxygen saturation is 98% on room air. Head: Atraumatic normocephalic. HEENT:[Neck is supple.] [No neck masses.] [No thyromegaly.] [No JVD.] PERRLA, EOMI, no icterus. Chest: Diminished breath sounds at the bases with no crackles or wheezing noted. Cardiac Exam: S1, S2 are muffled Abdomen: [Soft, obese, nontender, no megaly, no rebound, no guarding, normal bowel sounds.] Extremities: [Evidence of bilateral lower extremity edema. There is left lower extremity swelling and redness. A 2.0 cm plantar ulcer on the forefoot left. With yellow drainage noted from the plantar aspect of the left foot. The ulcer seems to be quite deep, and the drainage seems to be foul-smelling. Slight improvement of the redness and swelling of the left lower extremity. Kerlex dressing is dry and intact on the left foot Neurological Exam: Alert and oriented 3. - Labs CBC & Chem 7: 08/19/19 05:37 08/20/19 06:52 Labs: Abnormal Lab Results - Last 24 Hours (Table) 08/19/19 08/19/19 08/19/19 Range/Units 16:47 20:59 23:00 PT (9.0-12.0) sec INR (<1.2) Sodium (137-145) mmol/L Potassium (3.5-5.1) mmol/L BUN (9-20) mg/dL POC Glucose (mg/dL) 245 H 306 H 356 H (75-99) mg/dL Calcium (8.4-10.2) mg/dL 08/19/19 08/20/19 08/20/19 Range/Units 23:50 00:35 01:01 PT (9.0-12.0) sec INR (<1.2) Sodium (137-145) mmol/L Potassium (3.5-5.1) mmol/L BUN (9-20) mg/dL POC Glucose (mg/dL) 321 H 351 H 351 H (75-99) mg/dL Calcium (8.4-10.2) mg/dL 08/20/19 08/20/19 08/20/19 Range/Units 01:30 02:01 02:32 PT (9.0-12.0) sec INR (<1.2) Sodium (137-145) mmol/L Potassium (3.5-5.1) mmol/L BUN (9-20) mg/dL POC Glucose (mg/dL) 313 H 312 H 308 H (75-99) mg/dL Calcium (8.4-10.2) mg/dL 08/20/19 08/20/19 08/20/19 Range/Units 02:59 03:28 03:59 PT (9.0-12.0) sec INR (<1.2) Sodium (137-145) mmol/L Potassium (3.5-5.1) mmol/L BUN (9-20) mg/dL POC Glucose (mg/dL) 297 H 267 H 207 H (75-99) mg/dL Calcium (8.4-10.2) mg/dL 08/20/19 08/20/19 08/20/19 Range/Units 06:11 06:52 06:52 PT 16.7 H (9.0-12.0) sec INR 1.7 H (<1.2) Sodium 136 L (137-145) mmol/L Potassium 5.2 H (3.5-5.1) mmol/L BUN 29 H (9-20) mg/dL POC Glucose (mg/dL) 140 H (75-99) mg/dL Calcium 8.2 L (8.4-10.2) mg/dL 08/20/19 08/20/1908/20/20 Range/Units 08:08 09:17 11:33 PT (9.0-12.0) sec INR (<1.2) Sodium (137-145) mmol/L Potassium (3.5-5.1) mmol/L BUN (9-20) mg/dL POC Glucose (mg/dL) 124 H 160 H 142 H (75-99) mg/dL Calcium (8.4-10.2) mg/dL Microbiology - Last 24 Hours (Table) 08/16/19 12:02 Anaerobic Culture - Final Foot - Left Anaerobic Gram Positive Cocci Anaerobic Gram Positive Cocci#2 08/15/19 19:15 Blood Culture - Preliminary Blood No Growth after 96 hours 08/16/19 12:02 Gram Stain - Final Foot - Left Wound Culture - Final Methicillin resist S. aureus Assessment and Plan Assessment: Diabetic foot ulcer, possible osteomyelitis involving the left foot 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; patient has history of Isabell filter placement; patient remains on anticoagulation therapy Persistent atrial fibrillation with poorly controlled ventricular rate most likely secondary to chronic thromboembolic disease/pulmonary embolism Type 2 diabetes Generalized anxiety disorder COPD; not in exacerbation CODE STATUS; full code Recommendations and discussion: Recommend to continue current medications, management, and symptomatic treatm ent. Infectious disease and cardiology are covering. Anaerobic cultures preliminary showing gram-positive cocci along with MRSA of the left foot. Awaiting for finalization to adjust antibiotics accordingly. Continue with IV antibiotics in the form of Unasyn and vancomycin. Blood sugars remained elevated and patient was placed on a insulin drip and is being discontinued and will resume sliding scale, insulin with meals, and long acting insulin. Case management and social media coordinator following for possible ECF placement upon discharge for continued IV antibiotics therapy along with wound care. Patient states he would like to go home with home care. Will continue to monitor closely. Further recommendations to follow. Possible discharge in 24-48 hours.
[2019-08-20 15:40] LABS: Glucose,Whole Blood 155 mg/dL (75-99)
[2019-08-20 16:46] LABS: Glucose,Whole Blood 144 mg/dL (75-99)
[2019-08-20] MEDS: WARFARIN 3 MG TAB PO SCH (18:07)
[2019-08-20 20:26] LABS: Glucose,Whole Blood 282 mg/dL (75-99)
[2019-08-20] MEDS: ATORVASTATIN 80 MG TAB PO SCH (20:57)
[2019-08-20] MEDS: INSULIN DETEMIR (LEVEMIR) 100 UNIT/ML SYR SQ SCH (21:14)
[2019-08-20] MEDS: NORTRIPTYLINE 25 MG CAP PO SCH (21:54)
[2019-08-20] MEDS: oxyCODONE-APAP 10-325MG 1 EACH TAB PO PRN (21:54)
[2019-08-20 22:00] LABS: Glucose,Whole Blood 313 mg/dL (75-99)
[2019-08-20 23:10] LABS: Glucose,Whole Blood 274 mg/dL (75-99)
--- NOTE | 2019-08-20 23:21 | PN ---
PROGRESS NOTE DATE OF SERVICE: 08/20/2019. REASON FOR FOLLOWUP: Left diabetic foot infection with osteomyelitis. INTERVAL HISTORY: The patient was seen on rounds early this afternoon. The patient has been breathing comfortably. The patient denies having any chest pain or shortness of breath or cough. No nausea, vomiting, abdominal pain or any diarrhea. PHYSICAL EXAMINATION: Blood pressure 141/84 with a pulse of 129, temperature 98. He is 98% on room air. General description is a middle-aged male lying in bed in no distress. RESPIRATORY SYSTEM: Unlabored breathing. Clear to auscultation anteriorly. HEART: S1, S2. Regular rate and rhythm. ABDOMEN: Soft. No tenderness. Left foot wound has been Podiatry with extension to the dorsum. LABS: White count of 9.0. DIAGNOSTIC IMPRESSION AND PLAN: Patient with left diabetic foot infection in this patient who did have a wound on the plantar aspect extending to the dorsum. Cultures have been positive for anaerobic Gram- positive and MRSA. Vascular Surgery has seen the patient and are recommending amputation of the fifth fourth toe, with which the patient is agreeable. Patient to continue with Vancomycin and Flagyl for the anaerobes and monitor clinical course closely. MMODL / IJN: [id number] /
[2019-08-21] MEDS: AMPICILLIN-SULBACTAM 3 GM in SODIUM CHLORIDE 0.9% 100 ML IVPB SCH ×4 (00:20→20:10)
[2019-08-21] MEDS: MORPHINE SULFATE ER 30 MG TABLET PO SCH ×3 (00:21→16:38)
[2019-08-21] MEDS: methylPREDNISolone SOD SUCCI 125 MG/2 ML VIAL IV SCH ×4 (00:22→17:23)
[2019-08-21] MEDS: VANCOMYCIN 2,000 MG in SODIUM CHLORIDE 0.9% 500 ML 500 ML IVPB SCH ×2 (05:07→16:38)
[2019-08-21] MEDS: oxyCODONE-APAP 10-325MG 1 EACH TAB PO PRN ×2 (05:19→19:47)
--- NOTE | 2019-08-21 06:54 | OP ---
OPERATIVE REPORT PREOPERATIVE DIAGNOSIS: Infected wound left foot plantar aspect with wet gangrene changes noted in the left fourth and fifth toe web space. POSTOPERATIVE DIAGNOSIS: OPERATION: Amputation of the left foot fourth and fifth toe at the metatarsophalangeal joint and debridement of the wound at plantar aspect of the foot with removal of the devitalized tissue and wound culture was taken for culture and sensitivity. DESCRIPTION OF THE PROCEDURE: The patient was brought to the operating room. Left leg was prepped and drapes applied in the usual sterile manner. Incision was made on the dorsal aspect of the foot. Elliptical incision deepened through skin, fat and fascia. Tendons were divided on the dorsal aspect. Then this incision was carried out down to the plantar aspect deepened through skin, fat and fascia and there was some devitalized tissue that was also excised until we reached the metatarsophalangeal joint of the fourth and fifth toe. Using bone cutter, we divided and specimen was removed. We took some deep culture from the wound and wound was copiously irrigated with hydrogen peroxide. Incision was closed. The fascia was closed with 2-0 Vicryl interrupted suture and skin was closed with 2-0 nylon mattress interrupted suture. Dressing applied. The patient tolerated the procedure well. MMODL / IJN: [id number] /
[2019-08-21] MEDS: IPRATROPIUM 0.5 MG/2.5 ML NEBU INHALATION SCH ×4 (06:56→20:10)
[2019-08-21] MEDS: SYMBICORT 160-4.5 MCG INHALER INHALATION SCH ×2 (06:56→20:12)
[2019-08-21 07:08] LABS: Glucose,Whole Blood 279 mg/dL (75-99)
[2019-08-21] MEDS: INSULIN ASPART (NovoLOG) 100 UNIT/ML VIAL SQ SCH ×8 (07:15→22:27)
[2019-08-21] MEDS: PANTOPRAZOLE 40 MG TABLET PO SCH (07:15)
[2019-08-21 08:09] LABS: INR 1.9 (<1.2); Prothrombin Time 18.6 sec (9.0-12.0)
[2019-08-21] MEDS: FLUTICASONE 50MCG/SPRAY NASAL 16GM EA NOSTRIL SCH (08:32)
[2019-08-21] MEDS: diphenhydrAMINE 25 MG CAP PO SCH (08:36)
[2019-08-21] MEDS: PREGABALIN 100 MG CAP PO SCH ×2 (08:36→22:25)
[2019-08-21] MEDS: DILTIAZEM ORAL 60 MG TAB PO SCH ×3 (08:36→22:26)
[2019-08-21] MEDS: TOPIRAMATE 25 MG TAB PO SCH ×2 (08:36→22:26)
[2019-08-21] MEDS: MULTIVITAMINS, THERA 1 EACH TAB PO SCH (08:36)
[2019-08-21] MEDS: LISINOPRIL 20 MG TAB PO SCH (08:37)
[2019-08-21] MEDS: ASPIRIN 81 MG PO SCH (08:37)
[2019-08-21] MEDS: METOPROLOL TARTRATE 50 MG TAB PO SCH ×3 (08:37→22:26)
[2019-08-21 11:39] LABS: Glucose,Whole Blood 353 mg/dL (75-99)
--- NOTE | 2019-08-21 15:34 | P.PN ---
Subjective Progress Note Date: 08/21/19 Principal diagnosis: Principal diagnosis: Diabetic foot ulcer, possible osteomyelitis involving the left foot Persistent atrial fibrillation with poorly controlled ventricular rate Acute mental status change likely secondary to toxic metabolic encephalopathy related to infection 62-year-old white male with history of COPD, deep vein thrombosis/pulmonary embolism, diabetes/ neuropathy, degenerative joint disease, patient had previous history of bilateral deep vein thromboses and pulmonary embolism, chronically on anticoagulations therapy/Coumadin. Patient has been followed recently at the wound care center by Dr. Naranjo for chronic left foot plantar ulcer, and yesterday the patient was noticing foul-smelling discharge coming from the left foot ulcer. He was told by his primary care physician that he may have a foreign body in the foot. Hence the patient came into the ER. While in the ER, patient had shortness of breath and weakness, he was noted to be in atrial fibrillation and RVR. Patient was admitted, placed on Cardizem drip, cardiology consult was initiated, patient was placed on heparin, 08/17/2019 Patient remains in the ICU; patient remains in atrial fibrillation with RVR with heart rate in 1 teens to 130s, cardiology is on the case; patient is started on oral Cardizem, and increased his Lopressor to 50 mg by mouth twice a day. Patient is hemodynamically stable. Patient was evaluated by vascular surgery for his foot ulcer, and the recommendation was to have Dr. Naranjo see him; Dr. Naranjo is consulted and recommendations are pending. In the meantime the patient is receiving antibiotics as per infectious disease on the case and changed IV antibiotic therapy to vancomycin and Unasyn; Zosyn has been discontinued. Patient is complaining that his home medications have not been started, which I ordered His CBC is relatively normal INR is 2.5 electrolytes are normal renal profile is normal; patient has been cleared for transfer to [facility], and I have consulted Dr. Naranjo three-phase bone scan is pending 08/18/2019 Patient is evaluated in selective care unit; patient and family quite upset since patient was not seen by Dr. Naranjo is patient's primary parking enforcement specialist Patient's vital signs remained stable in form of a blood pressure 133/94, SpO2 of 95% on room air; lab review shows an INR of 2.7, potassium 5.2, BUN 30 and creatinine of 1.03; not count is slightly elevated at 11.7; patient's heart rate does fluctuate between 70-80 upto 130; cardiology recommending to continue with Cardizem at an increased dose of 60 mg 3 times a day along with Lopressor 50 mg daily Patient was evaluated by infection disease and underwent wound cleaning; recomm endations are to continue current antibiotic therapy; 08/19/2019 Patient is seen in follow-up stating that he would like to go home. Cardiology and infectious disease following the patient. Patient currently remains on IV antibiotics in the form of Unasyn and vancomycin. Preliminary cultures of the left leg wound showing gram-positive cocci with MRSA. Currently patient denies any chest pain, shortness of breath, or palpitations. Patient is afebrile. Patient denying any nausea or vomiting and is tolerating diet. INR today is 1.9 and will continue with Coumadin. Will repeat a.m. labs. Patient is presently rate controlled with Cardizem and metoprolol and will continue at this time. Will continue to monitor closely. 08/20/2019 Patient seen in follow-up today awaiting a consult with Dr. Mcintyre for possible amputation of the left foot fourth and fifth toe along with wound debridement of the plantar aspect of the left foot and is being closely monitored. Patient was seen by Dr. Naranjo recommending surgical consult with Dr. Mcintyre. Patient is scheduled for surgery this afternoon. Infectious disease is following as well. Patient did receive a PICC line and is currently on IV antibiotics in the form of Unasyn and vancomycin and will continue at this time. Case management and social work following for possible ECF to continue with IV antibiotic therapy once stabilized. Patient is currently on anticoagulation with Coumadin and PT/INR this morning was 1.7 and will repeat a.m. labs. No reports of chest pain or palpitations. Patient is afebrile. 08/21/2019 Patient is seen and evaluated in follow-up today and underwent amputation of the left foot fourth and fifth toe at the metatarsophalangeal joint along with debridement of the wound at the plantar aspect of the left foot with Dr. Mcintyre and is being closely monitored. Patient remains on IV antibiotics in the form of Unasyn and vancomycin and will continue at this time. Infectious disease is following. PT/INR today is 1.9 currently remains on Coumadin. Patient awaiting PT/OT eval as he proceeded to get up on his own today and walked to the bathroom with full weightbearing on his left foot causing some bleeding. Discussed with the patient at length about nonweightbearing of that left foot and using the heel only. Blood sugars remain elevated and is being covered with sliding scale along with long-acting. Nursing staff mentioned that family continues to bring in regular soda and sugared foods. Discussed with the patient and daughter at the bedside about refraining from increased sugar as he needs to have tight control of his blood sugars to optimize healing. Will continue to monitor kameron staceyy. Objective - Vital Signs Vital signs: Vital Signs Temp 97.7 F 08/21/19 15:00 Pulse 69 08/21/19 15:00 Resp 16 08/21/19 15:00 BP 125/89 08/21/19 15:00 Pulse Ox 91 L 08/21/19 15:00 Intake & Output 08/20/19 08/21/19 08/21/19 18:59 06:59 18:59 Intake Total 168.028 Output Total 10 Balance 158.028 Intake: IV 150 Intake, IV Titration 18.028 Amount Insulin Regular 100 unit 18.028 In Sodium Chloride 0.9% 100 ml @ Titrate IV .Q0M HELENE Rx#:[id number] Output: Estimated Blood Loss 10 Other: # Voids 1 1 1 - Exam General: This is a 64-year-old male sitting up in bed, awake, alert and oriented 3, well-developed, well-nourished. Temp is 96.3, pulse is 58, respirations are 18, blood pressure is 134/93, oxygen saturation is 90% on room air. Head: Atraumatic normocephalic. HEENT:[Neck is supple.] [No neck masses.] [No thyromegaly.] [No JVD.] PERRLA, EOMI, no icterus. Chest: Diminished breath sounds at the bases with no crackles or wheezing noted. Cardiac Exam: S1, S2 are muffled Abdomen: [Soft, obese, nontender, no megaly, no rebound, no guarding, normal bowel sounds.] Extremities: Evidence of bilateral lower extremity edema. There is left lower extremity swelling and redness. Left foot dressing was recently changed is there is some blood noted on the Kerlix from this morning. Left lower extremity is elevated up on a pillow at this time. Neurological Exam: Alert and oriented 3. - Labs CBC & Chem 7: 08/19/19 05:37 08/20/19 06:52 Labs: Abnormal Lab Results - Last 24 Hours (Table) 08/20/19 08/20/19 08/20/19 Range/Units 15:39 16:45 20:25 PT (9.0-12.0) sec INR (<1.2) POC Glucose (mg/dL) 155 H 144 H 282 H (75-99) mg/dL 08/20/19 08/20/19 08/21/19 Range/Units 21:59 23:09 06:50 PT 18.6 H (9.0-12.0) sec INR 1.9 H (<1.2) POC Glucose (mg/dL) 313 H 274 H (75-99) mg/dL 08/21/19 08/21/19 Range/Units 07:07 11:38 PT (9.0-12.0) sec INR (<1.2) POC Glucose (mg/dL) 279 H 353 H (75-99) mg/dL Microbiology - Last 24 Hours (Table) 08/16/19 12:02 Gram Stain - Final Foot - Left Wound Culture - Final Methicillin resist S. 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 at the metatarsophalangeal joint and debridement of the wound at the plantar aspect of the left foot with removal of devitalized tissue 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 Infectious disease and cardiology are covering. Vascular surgery following. Continue with IV antibiotics in the form of Unasyn and vancomycin. Blood sugars remained elevated. Patient is on IV steroids. Discussed with the patient and family members at the bedside about avoiding any increasing sugared items. Case management and social work following for discharge planning needs and arranging for continued IV antibiotic therapy in the outpatient setting. Patient adamant about going home upon discharge. Patient is agreeable to home care. Will continue to monitor closely. Further recommendations to follow. Possible discharge in 24-48 hours.
[2019-08-21 16:44] LABS: Glucose,Whole Blood 346 mg/dL (75-99)
[2019-08-21] MEDS: WARFARIN 3 MG TAB PO SCH (17:23)
[2019-08-21 20:44] LABS: Glucose,Whole Blood 413 mg/dL (75-99)
[2019-08-21 21:01] LABS: Glucose,Whole Blood 345 mg/dL (75-99)
[2019-08-21] MEDS ORDERED: INSULIN ASPART (NovoLOG) 100 UNIT/ML VIAL SQ ONE (21:25)
[2019-08-21] MEDS: NORTRIPTYLINE 25 MG CAP PO SCH (22:25)
[2019-08-21] MEDS: INSULIN DETEMIR (LEVEMIR) 100 UNIT/ML SYR SQ SCH (22:26)
[2019-08-21] MEDS: ATORVASTATIN 80 MG TAB PO SCH (22:27)
--- NOTE | 2019-08-21 22:43 | PN ---
PROGRESS NOTE DATE OF SERVICE: 08/21/2019. REASON FOR FOLLOWUP: Left diabetic foot infection with osteomyelitis. INTERVAL HISTORY: The patient was taken to the OR yesterday by Vascular Surgery. Patient is status post amputation of left fourth and fifth toes, admitted to hospital and debridement of the wound. The patient has tolerated the procedure. The patient's pain is currently controlled. Denies having any chest pain or shortness of breath or cough. No nausea, vomiting, abdominal pain or diarrhea. PHYSICAL EXAMINATION: Blood pressure 120/72 with a pulse of 98, temperature 97.5. He is 92% on room air. General description is a middle-aged male lying in bed in no distress. RESPIRATORY SYSTEM: Unlabored breathing. Clear to auscultation anteriorly. HEART: S1, S2. Regular rate and rhythm. ABDOMEN: Soft. No tenderness. Left foot is currently dressed up. No obvious drainage on the dressing. LABS: No new labs have been obtained today. DIAGNOSTIC IMPRESSION AND PLAN: Patient with left foot osteomyelitis. Culture with MRSA and anaerobes. Patient to continue with vancomycin, oral Flagyl, for at least 2 weeks post amputation in view of his extensive infection and close outpatient followup. Questions and concerns were answered. MMODL / IJN: [id number] /
[2019-08-22] MEDS: MORPHINE SULFATE ER 30 MG TABLET PO SCH ×3 (00:23→15:18)
[2019-08-22] MEDS: methylPREDNISolone SOD SUCCI 125 MG/2 ML VIAL IV SCH ×3 (00:23→12:13)
[2019-08-22] MEDS: VANCOMYCIN 2,000 MG in SODIUM CHLORIDE 0.9% 500 ML 500 ML IVPB SCH ×2 (04:07→15:18)
[2019-08-22 07:18] LABS: Glucose,Whole Blood 264 mg/dL (75-99)
[2019-08-22] MEDS: INSULIN ASPART (NovoLOG) 100 UNIT/ML VIAL SQ SCH ×8 (07:44→21:07)
[2019-08-22] MEDS: PANTOPRAZOLE 40 MG TABLET PO SCH (07:44)
--- NOTE | 2019-08-22 08:17 | PN ---
PROGRESS NOTE The patient had a left foot 4th and the 5th toe amputation with debridement of the wound on the plantar aspect of the foot for wet gangrene. The patient on IV antibiotic under the care of Infectious Disease. Today we have changed the dressing. The incision looked a little bit moist with mild drainage noted. We will change the dressing and advised nonweightbearing. Continue with IV antibiotic. We will watch very closely. MMODL / IJN: [id number] /
[2019-08-22] MEDS: SYMBICORT 160-4.5 MCG INHALER INHALATION SCH ×2 (09:14→19:43)
[2019-08-22] MEDS: IPRATROPIUM 0.5 MG/2.5 ML NEBU INHALATION SCH ×4 (09:14→19:44)
[2019-08-22] MEDS: FLUTICASONE 50MCG/SPRAY NASAL 16GM EA NOSTRIL SCH (09:44)
[2019-08-22 09:48] LABS: African American GFR (CKD) >90 (>60 ml/min/1.73 sqM); Non-African American GFR(CKD) >90 (>60 ml/min/1.73 sqM)
[2019-08-22] MEDS: DILTIAZEM ORAL 60 MG TAB PO SCH ×3 (09:49→20:58)
[2019-08-22] MEDS: diphenhydrAMINE 25 MG CAP PO SCH (09:49)
[2019-08-22] MEDS: TOPIRAMATE 25 MG TAB PO SCH ×2 (09:49→20:57)
[2019-08-22] MEDS: METOPROLOL TARTRATE 50 MG TAB PO SCH ×3 (09:49→20:58)
[2019-08-22] MEDS: ASPIRIN 81 MG PO SCH (09:49)
[2019-08-22] MEDS: metroNIDAZOLE 500 MG TAB PO SCH ×3 (09:49→20:57)
[2019-08-22] MEDS: PREGABALIN 100 MG CAP PO SCH ×2 (09:49→20:57)
[2019-08-22] MEDS: MULTIVITAMINS, THERA 1 EACH TAB PO SCH (09:49)
[2019-08-22] MEDS: LISINOPRIL 20 MG TAB PO SCH (09:50)
[2019-08-22 09:58] LABS: INR 2.7 (<1.2); Prothrombin Time 26.5 sec (9.0-12.0)
[2019-08-22 11:52] LABS: Glucose,Whole Blood 230 mg/dL (75-99)
[2019-08-22 16:53] LABS: Glucose,Whole Blood 319 mg/dL (75-99)
[2019-08-22] MEDS ORDERED: WARFARIN 3 MG TAB PO ONE (18:00)
--- NOTE | 2019-08-22 18:49 | PN ---
PROGRESS NOTE DATE OF SERVICE: 08/22/2019. REASON FOR FOLLOWUP: Left foot osteomyelitis MRSA. INTERVAL HISTORY: The patient is currently afebrile. The patient seemed to be slightly upset, as he wanted to go home today. The patient denies having any chest pain or shortness of breath or cough. No nausea, vomiting, or any worsening pain to the left foot area. PHYSICAL EXAMINATION: Blood pressure 132/76, pulse of 98, temperature 98. He is 90% on room air. General description is a middle-aged male lying in bed in no distress. RESPIRATORY SYSTEM: Unlabored breathing. Clear to auscultation anteriorly. HEART: S1, S2. Regular rate and rhythm. ABDOMEN: Soft. No tenderness. Left foot is currently dressed up. No obvious drainage on the dressing. LABS: Creatinine 0.91. DIAGNOSTIC IMPRESSION AND PLAN: Patient with left foot diabetic foot infection with osteomyelitis in this patient who is status post left fourth and fifth toe amputation. Culture with MRSA and anaerobes. Patient is covered with vancomycin and Flagyl. Plan will be for a total of 2 weeks of antibiotic therapy and continue with supportive care. MMODL / IJN: [id number] /
[2019-08-22 20:47] LABS: Glucose,Whole Blood 333 mg/dL (75-99)
[2019-08-22] MEDS: NORTRIPTYLINE 25 MG CAP PO SCH (20:57)
[2019-08-22] MEDS: ATORVASTATIN 80 MG TAB PO SCH (20:57)
[2019-08-22] MEDS: oxyCODONE-APAP 10-325MG 1 EACH TAB PO PRN (20:58)
[2019-08-22] MEDS: INSULIN DETEMIR (LEVEMIR) 100 UNIT/ML SYR SQ SCH (20:58)
[2019-08-23] MEDS: MORPHINE SULFATE ER 30 MG TABLET PO SCH ×4 (01:15→23:46)
[2019-08-23 02:54] LABS: African American GFR (CKD) >90 (>60 ml/min/1.73 sqM); Non-African American GFR(CKD) 86 (>60 ml/min/1.73 sqM)
[2019-08-23] MEDS ORDERED: VANCOMYCIN TROUGH DUE 1 EACH MISC MISCELLANE ONE (03:00)
[2019-08-23] MEDS: VANCOMYCIN 2,000 MG in SODIUM CHLORIDE 0.9% 500 ML 500 ML IVPB SCH ×2 (04:10→17:49)
[2019-08-23 07:01] LABS: Glucose,Whole Blood 277 mg/dL (75-99)
[2019-08-23] MEDS: INSULIN ASPART (NovoLOG) 100 UNIT/ML VIAL SQ SCH ×8 (07:17→20:49)
[2019-08-23] MEDS: PANTOPRAZOLE 40 MG TABLET PO SCH (07:17)
--- NOTE | 2019-08-23 08:06 | P.PN ---
Subjective Progress Note Date: 08/22/19 Principal diagnosis: Principal diagnosis: Diabetic foot ulcer, possible osteomyelitis involving the left foot Persistent atrial fibrillation with poorly controlled ventricular rate Acute mental status change likely secondary to toxic metabolic encephalopathy related to infection 62-year-old white male with history of COPD, deep vein thrombosis/pulmonary embolism, diabetes/ neuropathy, degenerative joint disease, patient had previous history of bilateral deep vein thromboses and pulmonary embolism, chronically on anticoagulations therapy/Coumadin. Patient has been followed recently at the wound care center by Dr. Naranjo for chronic left foot plantar ulcer, and yesterday the patient was noticing foul-smelling discharge coming from the left foot ulcer. He was told by his primary care physician that he may have a foreign body in the foot. Hence the patient came into the ER. While in the ER, patient had shortness of breath and weakness, he was noted to be in atrial fibrillation and RVR. Patient was admitted, placed on Cardizem drip, cardiology consult was initiated, patient was placed on heparin, 08/17/2019 Patient remains in the ICU; patient remains in atrial fibrillation with RVR with heart rate in 1 teens to 130s, cardiology is on the case; patient is started on oral Cardizem, and increased his Lopressor to 50 mg by mouth twice a day. Patient is hemodynamically stable. Patient was evaluated by vascular surgery for his foot ulcer, and the recommendation was to have Dr. Naranjo see him; Dr. Naranjo is consulted and recommendations are pending. In the meantime the patient is receiving antibiotics as per infectious disease on the case and changed IV antibiotic therapy to vancomycin and Unasyn; Zosyn has been discontinued. Patient is complaining that his home medications have not been started, which I ordered His CBC is relatively normal INR is 2.5 electrolytes are normal renal profile is normal; patient has been cleared for transfer to [facility], and I have consulted Dr. Naranjo three-phase bone scan is pending 08/18/2019 Patient is evaluated in selective care unit; patient and family quite upset since patient was not seen by Dr. Naranjo is patient's primary crisis specialist Patient's vital signs remained stable in form of a blood pressure 133/94, SpO2 of 95% on room air; lab review shows an INR of 2.7, potassium 5.2, BUN 30 and creatinine of 1.03; not count is slightly elevated at 11.7; patient's heart rate does fluctuate between 70-80 upto 130; cardiology recommending to continue with Cardizem at an increased dose of 60 mg 3 times a day along with Lopressor 50 mg daily Patient was evaluated by infection disease and underwent wound cleaning; recomm endations are to continue current antibiotic therapy; 08/19/2019 Patient is seen in follow-up stating that he would like to go home. Cardiology and infectious disease following the patient. Patient currently remains on IV antibiotics in the form of Unasyn and vancomycin. Preliminary cultures of the left leg wound showing gram-positive cocci with MRSA. Currently patient denies any chest pain, shortness of breath, or palpitations. Patient is afebrile. Patient denying any nausea or vomiting and is tolerating diet. INR today is 1.9 and will continue with Coumadin. Will repeat a.m. labs. Patient is presently rate controlled with Cardizem and metoprolol and will continue at this time. Will continue to monitor closely. 08/20/2019 Patient seen in follow-up today awaiting a consult with Dr. Mcintyre for possible amputation of the left foot fourth and fifth toe along with wound debridement of the plantar aspect of the left foot and is being closely monitored. Patient was seen by Dr. Naranjo recommending surgical consult with Dr. Mcintyre. Patient is scheduled for surgery this afternoon. Infectious disease is following as well. Patient did receive a PICC line and is currently on IV antibiotics in the form of Unasyn and vancomycin and will continue at this time. Case management and social work following for possible ECF to continue with IV antibiotic therapy once stabilized. Patient is currently on anticoagulation with Coumadin and PT/INR this morning was 1.7 and will repeat a.m. labs. No reports of chest pain or palpitations. Patient is afebrile. 08/21/2019 Patient is seen and evaluated in follow-up today and underwent amputation of the left foot fourth and fifth toe at the metatarsophalangeal joint along with debridement of the wound at the plantar aspect of the left foot with Dr. Mcintyre and is being closely monitored. Patient remains on IV antibiotics in the form of Unasyn and vancomycin and will continue at this time. Infectious disease is following. PT/INR today is 1.9 currently remains on Coumadin. Patient awaiting PT/OT eval as he proceeded to get up on his own today and walked to the bathroom with full weightbearing on his left foot causing some bleeding. Discussed with the patient at length about nonweightbearing of that left foot and using the heel only. Blood sugars remain elevated and is being covered with sliding scale along with long-acting. Nursing staff mentioned that family continues to bring in regular soda and sugared foods. Discussed with the patient and daughter at the bedside about refraining from increased sugar as he needs to have tight control of his blood sugars to optimize healing. Will continue to monitor kameron posadas. 08/22/2019 This is a 64-year-old male who was recently undergone amputation of the fourth and fifth toe along with wound debridement of the left foot and is being closely monitored. Dr. Mcintyre is following. Patient continues to walk to the bathroom and has been weightbearing on the left foot and the dressing has needed frequent changing. Patient is being maintained on IV antibiotics and will continue at this time. Patient continues to state he would really like to go home and is agreeable to home care but is adamant against any type of rehab. Blood sugars remain elevated and steroids are being discontinued. Will continue to monitor closely. Objective - Vital Signs Vital signs: - Exam General: This is a 64-year-old male sitting up in bed, awake, alert and oriented 3, well-developed, well-nourished. Temp is 97.6, pulse is 61, respirations are 17, blood pressure is 120/76, oxygen saturation is 90% on room air. Head: Atraumatic normocephalic. HEENT:[Neck is supple.] [No neck masses.] [No thyromegaly.] [No JVD.] PERRLA, EOMI, no icterus. Chest: Diminished breath sounds at the bases with no crackles or wheezing noted. Cardiac Exam: S1, S2 are muffled Abdomen: [Soft, obese, nontender, no megaly, no rebound, no guarding, normal bowel sounds.] Extremities: Evidence of bilateral lower extremity edema. There is left lower extremity swelling and redness. Left foot dressing has been frequently changed and is currently dry and intact. There is some moistness noted to the incision along with some mild drainage of the left foot. Left lower extremity is elevated up on a pillow at this time. Neurological Exam: Alert and oriented 3. 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 at the metatarsophalangeal joint and debridement of the wound at the plantar aspect of the left foot with removal of devitalized tissue 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; patient has history of Isabell filter placement; patient remains on anticoagulation therapy Persistent atrial fibrillation with poorly controlled ventricular rate most likely secondary to chronic thromboembolic disease/pulmonary embolism Type 2 diabetes Generalized anxiety disorder COPD; not in exacerbation CODE STATUS; full code Recommendations and discussion: Recommend to continue current medications, management, and symptomatic lolita atment. Infectious disease and Dr. Mcintyre are following. Continue with IV antibiotics in the form of Unasyn and vancomycin. Blood sugars remained elevated. IV steroids have been discontinued. Case management and social work following for discharge planning needs and arranging for continued IV antibiotic therapy in the outpatient setting. Patient adamant about going home upon discharge. Patient is agreeable to home care. Will continue to monitor closely. Further recommendations to follow. Possible discharge in 24-48 hours.
[2019-08-23] MEDS: TOPIRAMATE 25 MG TAB PO SCH ×2 (08:37→20:42)
[2019-08-23] MEDS: ASPIRIN 81 MG PO SCH (08:37)
[2019-08-23] MEDS: diphenhydrAMINE 25 MG CAP PO SCH (08:37)
[2019-08-23] MEDS: PREGABALIN 100 MG CAP PO SCH ×2 (08:37→20:41)
[2019-08-23] MEDS: DILTIAZEM ORAL 60 MG TAB PO SCH ×3 (08:37→20:42)
[2019-08-23] MEDS: METOPROLOL TARTRATE 50 MG TAB PO SCH ×3 (08:37→20:42)
[2019-08-23] MEDS: FLUTICASONE 50MCG/SPRAY NASAL 16GM EA NOSTRIL SCH (08:37)
[2019-08-23] MEDS: LISINOPRIL 20 MG TAB PO SCH (08:37)
[2019-08-23] MEDS: MULTIVITAMINS, THERA 1 EACH TAB PO SCH (08:37)
[2019-08-23] MEDS: metroNIDAZOLE 500 MG TAB PO SCH ×3 (08:37→20:42)
[2019-08-23] MEDS: IPRATROPIUM 0.5 MG/2.5 ML NEBU INHALATION SCH ×4 (08:45→21:41)
[2019-08-23] MEDS: SYMBICORT 160-4.5 MCG INHALER INHALATION SCH ×2 (08:45→21:41)
[2019-08-23 12:10] LABS: Glucose,Whole Blood 262 mg/dL (75-99)
[2019-08-23 13:46] LABS: INR 2.9 (<1.2); Prothrombin Time 28.1 sec (9.0-12.0)
--- NOTE | 2019-08-23 14:44 | PN ---
PROGRESS NOTE This patient had left foot big and second toe wound debridement for wet gangrene and amputation. The patient is on IV antibiotic. Today we changed the dressing. There is some serous drainage noted on the wound. Dressing was changed. Continue with IV antibiotic. Non-weightbearing. MMODL / IJN: [id number] /
--- NOTE | 2019-08-23 15:16 | P.PN ---
Subjective Progress Note Date: 08/23/19 Principal diagnosis: Principal diagnosis: Diabetic foot ulcer, possible osteomyelitis involving the left foot Persistent atrial fibrillation with poorly controlled ventricular rate Acute mental status change likely secondary to toxic metabolic encephalopathy related to infection 62-year-old white male with history of COPD, deep vein thrombosis/pulmonary embolism, diabetes/ neuropathy, degenerative joint disease, patient had previous history of bilateral deep vein thromboses and pulmonary embolism, chronically on anticoagulations therapy/Coumadin. Patient has been followed recently at the wound care center by Dr. Naranjo for chronic left foot plantar ulcer, and yesterday the patient was noticing foul-smelling discharge coming from the left foot ulcer. He was told by his primary care physician that he may have a foreign body in the foot. Hence the patient came into the ER. While in the ER, patient had shortness of breath and weakness, he was noted to be in atrial fibrillation and RVR. Patient was admitted, placed on Cardizem drip, cardiology consult was initiated, patient was placed on heparin, 08/17/2019 Patient remains in the ICU; patient remains in atrial fibrillation with RVR with heart rate in 1 teens to 130s, cardiology is on the case; patient is started on oral Cardizem, and increased his Lopressor to 50 mg by mouth twice a day. Patient is hemodynamically stable. Patient was evaluated by vascular surgery for his foot ulcer, and the recommendation was to have Dr. Naranjo see him; Dr. Naranjo is consulted and recommendations are pending. In the meantime the patient is receiving antibiotics as per infectious disease on the case and changed IV antibiotic therapy to vancomycin and Unasyn; Zosyn has been discontinued. Patient is complaining that his home medications have not been started, which I ordered His CBC is relatively normal INR is 2.5 electrolytes are normal renal profile is normal; patient has been cleared for transfer to [facility], and I have consulted Dr. Naranjo three-phase bone scan is pending 08/18/2019 Patient is evaluated in selective care unit; patient and family quite upset since patient was not seen by Dr. Naranjo is patient's primary hr specialist Patient's vital signs remained stable in form of a blood pressure 133/94, SpO2 of 95% on room air; lab review shows an INR of 2.7, potassium 5.2, BUN 30 and creatinine of 1.03; not count is slightly elevated at 11.7; patient's heart rate does fluctuate between 70-80 upto 130; cardiology recommending to continue with Cardizem at an increased dose of 60 mg 3 times a day along with Lopressor 50 mg daily Patient was evaluated by infection disease and underwent wound cleaning; recomm endations are to continue current antibiotic therapy; 08/19/2019 Patient is seen in follow-up stating that he would like to go home. Cardiology and infectious disease following the patient. Patient currently remains on IV antibiotics in the form of Unasyn and vancomycin. Preliminary cultures of the left leg wound showing gram-positive cocci with MRSA. Currently patient denies any chest pain, shortness of breath, or palpitations. Patient is afebrile. Patient denying any nausea or vomiting and is tolerating diet. INR today is 1.9 and will continue with Coumadin. Will repeat a.m. labs. Patient is presently rate controlled with Cardizem and metoprolol and will continue at this time. Will continue to monitor closely. 08/20/2019 Patient seen in follow-up today awaiting a consult with Dr. Mcintyre for possible amputation of the left foot fourth and fifth toe along with wound debridement of the plantar aspect of the left foot and is being closely monitored. Patient was seen by Dr. Naranjo recommending surgical consult with Dr. Mcintyre. Patient is scheduled for surgery this afternoon. Infectious disease is following as well. Patient did receive a PICC line and is currently on IV antibiotics in the form of Unasyn and vancomycin and will continue at this time. Case management and social work following for possible ECF to continue with IV antibiotic therapy once stabilized. Patient is currently on anticoagulation with Coumadin and PT/INR this morning was 1.7 and will repeat a.m. labs. No reports of chest pain or palpitations. Patient is afebrile. 08/21/2019 Patient is seen and evaluated in follow-up today and underwent amputation of the left foot fourth and fifth toe at the metatarsophalangeal joint along with debridement of the wound at the plantar aspect of the left foot with Dr. Mcintyre and is being closely monitored. Patient remains on IV antibiotics in the form of Unasyn and vancomycin and will continue at this time. Infectious disease is following. PT/INR today is 1.9 currently remains on Coumadin. Patient awaiting PT/OT eval as he proceeded to get up on his own today and walked to the bathroom with full weightbearing on his left foot causing some bleeding. Discussed with the patient at length about nonweightbearing of that left foot and using the heel only. Blood sugars remain elevated and is being covered with sliding scale along with long-acting. Nursing staff mentioned that family continues to bring in regular soda and sugared foods. Discussed with the patient and daughter at the bedside about refraining from increased sugar as he needs to have tight control of his blood sugars to optimize healing. Will continue to monitor kameron posadas. 08/22/2019 This is a 64-year-old male who was recently undergone amputation of the fourth and fifth toe along with wound debridement of the left foot and is being closely monitored. Dr. Mcintyre is following. Patient continues to walk to the bathroom and has been weightbearing on the left foot and the dressing has needed frequent changing. Patient is being maintained on IV antibiotics and will continue at this time. Patient continues to state he would really like to go home and is agreeable to home care but is adamant against any type of rehab. Blood sugars remain elevated and steroids are being discontinued. Will continue to monitor closely. 08/23/2019 Patient Is seen in follow-up today having recently undergone amputation of the fourth and fifth toe along with wound debridement of the left foot and is being closely monitored. Patient is continued on IV vancomycin along with oral Flagyl and will continue at this time. Dr. Mcintyre was in to evaluate the patient today along with the dressing change as patient continues to have drainage and moisture surrounding the sutures of the surgical site. Discussed with the patient at length about continuing with nonweightbearing as he continues to walk on that foot. PT/OT is following. INR is therapeutic at 2.9 today. Patient remains on Coumadin for anticoagulation. Blood sugars continue to be elevated and will continue to monitor closely. Patient remains on long-acting along with sliding scale. Steroids have been discontinued. Review of systems: Cardiovascular: No reports of chest pain or palpitations Respiratory: No reports of shortness of breath or cough GI: No reports of nausea, vomiting, or diarrhea : No reports of urinary retention or dysuria Active Medications Albuterol Sulfate (Ventolin Nebulized) 2.5 mg INHALATION RT-QID PRN PRN Reason: Shortness Of Breath Aspirin (Aspirin) 81 mg PO DAILY HELENE Last Admin: 08/23/19 08:37 Dose: 81 mg Documented by: Atorvastatin Calcium (Lipitor) 80 mg PO HS [facility] Last Admin: 08/22/19 20:57 Dose: 80 mg Documented by: Budesonide/Formoterol Fumarate (Symbicort 160-4.5 Mcg Inhaler) 2 puff INHALATION RT-BID [facility] Last Admin: 08/23/19 08:45 Dose: Not Given Documented by: Diltiazem HCl (Cardizem Oral) 60 mg PO TID [facility] Last Admin: 08/23/19 08:37 Dose: 60 mg Documented by: Diphenhydramine HCl (Benadryl) 25 mg PO DAILY [facility] Last Admin: 08/23/19 08:37 Dose: 25 mg Documented by: Docusate Sodium (Colace) 100 mg PO DAILY PRN PRN Reason: Constipation Fluticasone Propionate (Flonase Nasal [place]) 2 spray EA NOSTRIL DAILY [facility] Last Admin: 08/23/19 08:37 Dose: 2 spray Documented by: Furosemide (Lasix) 40 mg IV BID [facility] Vancomycin HCl 2,000 mg/ (Sodium Chloride) 500 mls @ 167 mls/hr IVPB Q12H [facility] Last Admin: 08/23/19 04:10 Dose: 167 mls/hr Documented by: Insulin Human Regular 100 unit (/ Sodium Chloride) 101 mls @ 0 mls/hr IV .Q0M [facility]; Protocol Last Titration: 08/20/19 08:11 Dose: 0 units/hr, 0 mls/hr Documented by: Insulin Aspart (Novolog) 0 unit SQ ACHS [facility]; Protocol Last Admin: 08/23/19 12:35 Dose: 6 unit Documented by: Insulin Aspart (Novolog) 10 unit SQ ACHS [facility] Last Admin: 08/23/19 12:35 Dose: 10 unit Documented by: Insulin Detemir (Levemir) 72 unit SQ HS [facility] Last Admin: 08/22/19 20:58 Dose: 72 unit Documented by: Ipratropium [place] (Atrovent Nebulized) 0.5 mg INHALATION RT-QID [facility] Last Admin: 08/23/19 11:33 Dose: 0.5 mg Documented by: Lisinopril (Zestril) 20 mg PO DAILY [facility] Last Admin: 08/23/19 08:37 Dose: 20 mg Documented by: Metoprolol Tartrate (Lopressor) 50 mg PO TID [facility] Last Admin: 08/23/19 08:37 Dose: 50 mg Documented by: Metronidazole (Flagyl) 500 mg PO TID [facility] Last Admin: 08/23/19 08:37 Dose: 500 mg Documented by: Miscellaneous Information (Coumadin Per Pharmacy) 0 each MISCELLANE DIRECTED PRN PRN Reason: Per protocol Morphine Sulfate (Ms Contin) 30 mg PO Q8HR [facility] Last Admin: 08/23/19 07:21 Dose: 30 mg Documented by: Multivitamins (Theragran) 1 each PO DAILY [facility] Last Admin: 08/23/19 08:37 Dose: 1 each Documented by: Naloxone HCl (Narcan) 0.2 mg IV Q2M PRN PRN Reason: Opioid Reversal Nitroglycerin (Nitrostat) 0.4 mg SUBLINGUAL Q5M PRN PRN Reason: Chest Pain Nortriptyline HCl (Pamelor) 50 mg PO HS [facility] Last Admin: 08/22/19 20:57 Dose: 50 mg Documented by: Oxycodone/Acetaminophen (Percocet 10-325) 1 each PO Q6H PRN PRN Reason: Pain Last Admin: 08/22/19 20:58 Dose: 1 each Documented by: Pantoprazole Sodium (Protonix) 40 mg PO AC-BRKFST [facility] Last Admin: 08/23/19 07:17 Dose: 40 mg Documented by: Pregabalin (Lyrica) 300 mg PO BID [facility] Last Admin: 08/23/19 08:37 Dose: 300 mg Documented by: Sodium Chloride (Saline Flush) 10 ml IV Q4HR PRN PRN Reason: PICC Line Sodium Chloride (Saline Flush) 10 ml IV WEEKLY [facility] Last Admin: 08/23/19 08:38 Dose: 10 ml Documented by: Sodium Chloride (Saline Flush) 20 ml IV Q4HR PRN PRN Reason: PICC Line Topiramate (Topamax) 25 mg PO BID [facility] Last Admin: 08/23/19 08:37 Dose: 25 mg Documented by: Warfarin Sodium (Coumadin) 2 mg PO ONCE@1800 ONE Stop: 08/23/19 18:01 Objective - Vital Signs Vital signs: Vital Signs Temp 98.3 F 08/23/19 07:43 Pulse 90 08/23/19 07:43 Resp 18 08/23/19 07:43 BP 155/92 08/23/19 07:43 Pulse Ox 93 L 08/23/19 07:43 Intake & Output 08/22/19 08/23/19 08/23/19 18:59 06:59 18:59 Other: Voiding Method Urinal # Voids 1 - Exam General: This is a 64-year-old male sitting up in bed, awake, alert and oriented 3, well-developed, well-nourished. Temp is 98.3, pulse is 90, respirations are 18, blood pressure is 155/92, oxygen saturation is 93% on room air. Head: Atraumatic normocephalic. HEENT:[Neck is supple.] [No neck masses.] [No thyromegaly.] [No JVD.] PERRLA, EOMI, no icterus. Chest: Diminished breath sounds at the bases with no crackles or wheezing noted. Cardiac Exam: S1, S2 are muffled Abdomen: [Soft, obese, nontender, no megaly, no rebound, no guarding, normal bowel sounds.] Extremities: Evidence of bilateral lower extremity edema. There is left lower extremity swelling and redness. Left foot dressing was changed by Dr. Mcintyre and is currently dry and intact. There is some moistness noted to the incision along with some mild drainage of the left foot. Left lower extremity is elevated up on a pillow at this time. Neurological Exam: Alert and oriented 3. 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 at the metatarsophalangeal joint and debridement of the wound at the plantar aspect of the left foot with removal of devitalized tissue 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; patient has history of [place] filter placement; patient remains on anticoagulation therapy Persistent atrial fibrillation with poorly controlled ventricular rate most likely secondary to chronic thromboembolic disease/pulmonary embolism Type 2 diabetes Generalized anxiety disorder COPD; not in exacerbation CODE STATUS; full code Recommendations and discussion: Recommend to continue current medications, management, and symptomatic treatment. Infectious disease and Dr. Mcintyre are following. Continue with IV antibiotics in the form of vancomycin along with oral Flagyl. Blood sugars remained elevated. Patient to continue with long-acting insulin along with sliding scale and insulin with each meal.. Case management and social work following for discharge planning needs and arranging for continued IV antibiotic therapy in the outpatient setting. Patient will be going home with home care and will continue with IV antibiotic therapy in the outpatient setting once medically stable. Will continue to monitor closely. Further recommendations to follow. Possible discharge in 24-48 hours.
[2019-08-23 17:30] LABS: Glucose,Whole Blood 166 mg/dL (75-99)
[2019-08-23] MEDS: FUROSEMIDE 10 MG/ML 4 ML VIAL IV SCH ×2 (17:49→20:42)
[2019-08-23] MEDS ORDERED: WARFARIN 2 MG TAB PO ONE (18:00)
[2019-08-23] MEDS: oxyCODONE-APAP 10-325MG 1 EACH TAB PO PRN (20:41)
[2019-08-23] MEDS: INSULIN DETEMIR (LEVEMIR) 100 UNIT/ML SYR SQ SCH (20:42)
[2019-08-23] MEDS: NORTRIPTYLINE 25 MG CAP PO SCH (20:42)
[2019-08-23] MEDS: ATORVASTATIN 80 MG TAB PO SCH (20:42)
[2019-08-23 20:45] LABS: Glucose,Whole Blood 129 mg/dL (75-99)
--- NOTE | 2019-08-23 22:34 | PN ---
PROGRESS NOTE DATE OF SERVICE: 08/23/2019 REASON FOR FOLLOWUP: Left diabetic foot wound with osteomyelitis. INTERVAL HISTORY: The patient is currently afebrile, has been breathing comfortably. The patient denies having any chest pain or shortness of breath or cough. No nausea or vomiting. No abdominal pain or any worsening pain to the foot area. PHYSICAL EXAMINATION: Blood pressure 152/95 with a pulse of 80, temperature 97.4. He is 90% on room air. General description is a middle-aged male lying in bed in no distress. RESPIRATORY SYSTEM: Unlabored breathing. Clear to auscultation anteriorly. HEART: S1, S2. Regular rate and rhythm. ABDOMEN: Soft. No tenderness. Left foot is currently dressed up. No obvious drainage on the dressing. LABS: Creatinine 0.95. DIAGNOSTIC IMPRESSION AND PLAN: Patient with left diabetic foot infection. Culture with MRSA and anaerobic Gram- positive cocci. The patient is covered with vancomycin and Flagyl; to continue for 2 weeks. Local wound care per Surgery. Continue with supportive care. MMODL / IJN: [id number] /
[2019-08-24] MEDS: VANCOMYCIN 2,000 MG in SODIUM CHLORIDE 0.9% 500 ML 500 ML IVPB SCH ×2 (04:28→17:16)
[2019-08-24 07:13] LABS: INR 2.3 (<1.2); Prothrombin Time 22.7 sec (9.0-12.0)
[2019-08-24 07:16] LABS: African American GFR (CKD) >90 (>60 ml/min/1.73 sqM); Non-African American GFR(CKD) >90 (>60 ml/min/1.73 sqM)
[2019-08-24] MEDS: IPRATROPIUM 0.5 MG/2.5 ML NEBU INHALATION SCH ×4 (07:17→20:09)
[2019-08-24] MEDS: SYMBICORT 160-4.5 MCG INHALER INHALATION SCH ×2 (07:18→20:10)
[2019-08-24 07:20] LABS: Glucose,Whole Blood 105 mg/dL (75-99)
[2019-08-24] MEDS: INSULIN ASPART (NovoLOG) 100 UNIT/ML VIAL SQ SCH ×8 (09:18→21:04)
[2019-08-24] MEDS: PANTOPRAZOLE 40 MG TABLET PO SCH (09:21)
[2019-08-24] MEDS: MORPHINE SULFATE ER 30 MG TABLET PO SCH ×3 (09:22→23:23)
[2019-08-24] MEDS: METOPROLOL TARTRATE 50 MG TAB PO SCH ×3 (09:22→21:02)
[2019-08-24] MEDS: metroNIDAZOLE 500 MG TAB PO SCH ×3 (09:22→21:02)
[2019-08-24] MEDS: diphenhydrAMINE 25 MG CAP PO SCH (09:22)
[2019-08-24] MEDS: LISINOPRIL 20 MG TAB PO SCH (09:22)
[2019-08-24] MEDS: ASPIRIN 81 MG PO SCH (09:22)
[2019-08-24] MEDS: DILTIAZEM ORAL 60 MG TAB PO SCH ×3 (09:23→21:02)
[2019-08-24] MEDS: FUROSEMIDE 10 MG/ML 4 ML VIAL IV SCH ×2 (09:23→21:01)
[2019-08-24] MEDS: TOPIRAMATE 25 MG TAB PO SCH ×2 (09:24→21:02)
[2019-08-24] MEDS: PREGABALIN 100 MG CAP PO SCH ×2 (09:34→21:02)
[2019-08-24] MEDS: MULTIVITAMINS, THERA 1 EACH TAB PO SCH (09:34)
[2019-08-24 11:28] LABS: Glucose,Whole Blood 148 mg/dL (75-99)
[2019-08-24] MEDS: FLUTICASONE 50MCG/SPRAY NASAL 16GM EA NOSTRIL SCH (12:30)
[2019-08-24 16:55] LABS: Glucose,Whole Blood 206 mg/dL (75-99)
[2019-08-24] MEDS ORDERED: WARFARIN 5 MG TAB PO ONE (18:00)
[2019-08-24 20:41] LABS: Glucose,Whole Blood 232 mg/dL (75-99)
[2019-08-24] MEDS: NORTRIPTYLINE 25 MG CAP PO SCH (21:01)
[2019-08-24] MEDS: ATORVASTATIN 80 MG TAB PO SCH (21:02)
[2019-08-24] MEDS: INSULIN DETEMIR (LEVEMIR) 100 UNIT/ML SYR SQ SCH (21:02)
--- NOTE | 2019-08-25 00:34 | PN ---
PROGRESS NOTE DATE OF SERVICE: 08/24/2019 This 64-year-old gentleman who was admitted with diabetic foot ulcer with possible osteomyelitis involving the left foot, also had persistent atrial fibrillation. The patient has history of noncompliance also. The patient has significant swelling of the bilateral feet, left more than the right. We are also giving IV diuretics to the patient and intake and output charting though apparently is not much negative fluid balance. Dr. Cowart. is following the patient closely and culture showed multiple organisms including MRSA and anaerobic gram-positive cocci number #1 and 2. PAST MEDICAL: Reviewed. REVIEW OF SYSTEMS: CARDIOVASCULAR: No angina. RESPIRATORY: As mentioned earlier. GI: As mentioned earlier. : No dysuria. NERVOUS SYSTEMS: No numbness or weakness. CURRENT MEDICATIONS: 1. Ventolin 2.5 q.i.d. p.r.n. 2. Aspirin 81 mg. 3. Lipitor 80 mg. 4. Symbicort two puffs b.i.d. 5. Cardizem 60 mg t.i.d. 6. Benadryl p.r.n. 7. Colace. 8. Flonase. 9. Lasix 40 mg IV b.i.d. 10.NovoLog. 11.Levemir 72 subcu q.h.s. 12.Zestril. 13.Lopressor. 14.Flagyl. 15.Multivitamins. 16.Narcan. 17.Nitrostat. 18.Lyrica. PHYSICAL EXAM: Patient is alert, oriented x3. Pulse is 73, blood pressure 130/80, respiration 18, temperature 98.4, pulse ox 93% on room air. skin: Conjunctivae normal. Oral mucosa moist neck is no HEENT: Conjunctivae normal. Oral mucosa moist. NECK: No jugular venous distention. No lymph node enlargement. CARDIOVASCULAR: S1, S2. RESPIRATORY: Diminished breath sounds at the bases. Scattered rhonchi and crackles. ABDOMEN: Soft, nontender. LEGS: Bilateral leg edema. NERVOUS SYSTEM: No focal deficits. LABS: INR 2.3. Other labs are noted. ASSESSMENT: 1. Diabetic foot ulcer, possible osteomyelitis involving the left foot with slow improvement. 2. Status post amputation of the left foot 4th and 5th toe at the metatarsophalangeal joint 3. Chronic deep venous thrombosis and pulmonary embolism. 4. Bilateral leg edema. 5. Persistent atrial fibrillation, poorly controlled rate. 6. Diabetes mellitus type 2. 7. Generalized anxiety disorder. 8. Chronic obstructive pulmonary disease. 9. Coumadin monitor. 10.Hyponatremia. 11.Mild hyperkalemia. 12.Obesity with body mass 13.FULL CODE. RECOMMENDATIONS AND DISCUSSION: In this 64-year-old gentleman who presented with multiple complex medical issues, we will monitor the patient closely, continue the current medication and symptomatic treatment. Otherwise, continue the broad-spectrum IV antibiotics. Other than that, I would recommend continue with diuretics. Repeat labs and continue to monitor. Her fluid restriction is 100 mL per 24 hours. Further recommendations to follow. Prognosis guarded. Continue the antibiotics. Monitor PT/INR. MMODL / IJN: [id number] / MICHEAL
[2019-08-25] MEDS: VANCOMYCIN 2,000 MG in SODIUM CHLORIDE 0.9% 500 ML 500 ML IVPB SCH ×2 (04:39→18:05)
--- NOTE | 2019-08-25 05:16 | PN ---
PROGRESS NOTE DATE OF SERVICE: 08/24/2019 REASON FOR FOLLOW UP: Left diabetic foot infection. INTERVAL HISTORY: The patient is currently afebrile. He has been breathing comfortably. The patient denies having any chest pain. No shortness of breath or cough. No nausea, vomiting, abdominal pain, or any worsening pain in the foot area. PHYSICAL EXAMINATION: Blood pressure 134/58 with a pulse of 68, temperature is 97.5, he is 93% on 2 L nasal cannula. General description is a middle-aged male lying in bed in no distress. Respiratory system: Unlabored breathing, clear to auscultation anteriorly. Heart S1, S2. Regular rate and rhythm. Abdomen soft, no tenderness. Left foot is currently dressed up with no obvious drainage on the dressing. LABS: Vanco trough is slightly on the high side in the 20s but kidney function is normal. DIAGNOSTIC IMPRESSION AND PLAN: Patient with left foot osteomyelitis in this patient who is status post left 4th and fifth toe amputation. Cultures have been positive for MRSA and anaerobes. Patient is covered with Vancomycin. Dose needs to be adjusted to trough of 15. We will monitor his kidney function closely. Family was at the bedside. Their questions and concerns were answered. MMODL / IJN: [id number] /
[2019-08-25 07:06] LABS: Glucose,Whole Blood 58 mg/dL (75-99)
[2019-08-25 07:08] LABS: Prothrombin Time 19.9 sec (9.0-12.0)
[2019-08-25] MEDS: INSULIN ASPART (NovoLOG) 100 UNIT/ML VIAL SQ SCH ×8 (07:08→21:39)
[2019-08-25] MEDS: FLUTICASONE 50MCG/SPRAY NASAL 16GM EA NOSTRIL SCH (07:09)
[2019-08-25 07:13] LABS: Basophils # (A) 0.2 k/uL (0-0.2); Basophils % (A) 1 %; Eosinophils # (A) 0.4 k/uL (0-0.7); Eosinophils % (A) 2 %; Lymphocytes # (A) 2.5 k/uL (1.0-4.8); Lymphocytes % (A) 14 %; MCH 30.5 pg (25.0-35.0); MCHC 31.3 g/dL (31.0-37.0); MCV 97.5 fL (80.0-100.0); Monocytes # (A) 1.1 k/uL (0-1.0); Monocytes % (A) 6 %; Neutrophils # (A) 13.4 k/uL (1.3-7.7); Neutrophils % (A) 75 %; Platelet Count 319 k/uL (150-450); RBC 5.44 m/uL (4.30-5.90); RDW 14.7 % (11.5-15.5); WBC 17.8 k/uL (3.8-10.6)
[2019-08-25 07:19] LABS: African American GFR (CKD) >90 (>60 ml/min/1.73 sqM); Anion Gap 11 mmol/L; Blood Urea Nitrogen 34 mg/dL (9-20); Calcium 8.1 mg/dL (8.4-10.2); Carbon Dioxide 31 mmol/L (22-30); Chloride 96 mmol/L (98-107); HGB 16.6 gm/dL (13.0-17.5); Non-African American GFR(CKD) 83 (>60 ml/min/1.73 sqM); Potassium 4.4 mmol/L (3.5-5.1); Sodium 138 mmol/L (137-145)
[2019-08-25] MEDS: IPRATROPIUM 0.5 MG/2.5 ML NEBU INHALATION SCH ×4 (07:24→20:57)
[2019-08-25] MEDS: SYMBICORT 160-4.5 MCG INHALER INHALATION SCH ×2 (07:24→20:57)
[2019-08-25 07:25] LABS: Glucose,Whole Blood 57 mg/dL (75-99)
[2019-08-25 07:27] LABS: Glucose 44 mg/dL (74-99)
[2019-08-25 07:57] LABS: Glucose,Whole Blood 40 mg/dL (75-99)
[2019-08-25 07:57] LABS: Glucose,Whole Blood 35 mg/dL (75-99)
[2019-08-25] MEDS ORDERED: DEXTROSE 10 % IN WATER 250 ML IV STA (08:25)
[2019-08-25 08:40] LABS: Glucose,Whole Blood 68 mg/dL (75-99)
[2019-08-25] MEDS: TOPIRAMATE 25 MG TAB PO SCH ×2 (08:45→21:29)
[2019-08-25] MEDS: FUROSEMIDE 10 MG/ML 4 ML VIAL IV SCH ×2 (08:45→21:30)
[2019-08-25] MEDS: MULTIVITAMINS, THERA 1 EACH TAB PO SCH (08:46)
[2019-08-25] MEDS: ASPIRIN 81 MG PO SCH (08:46)
[2019-08-25] MEDS: MORPHINE SULFATE ER 30 MG TABLET PO SCH ×3 (08:46→23:59)
[2019-08-25] MEDS: PREGABALIN 100 MG CAP PO SCH ×2 (08:46→21:30)
[2019-08-25] MEDS: LISINOPRIL 20 MG TAB PO SCH (08:46)
[2019-08-25] MEDS: DILTIAZEM ORAL 60 MG TAB PO SCH ×3 (08:46→21:29)
[2019-08-25] MEDS: PANTOPRAZOLE 40 MG TABLET PO SCH (08:46)
[2019-08-25] MEDS: METOPROLOL TARTRATE 50 MG TAB PO SCH ×3 (08:47→18:05)
[2019-08-25] MEDS: diphenhydrAMINE 25 MG CAP PO SCH (08:47)
[2019-08-25] MEDS: metroNIDAZOLE 500 MG TAB PO SCH ×3 (08:47→21:30)
[2019-08-25 10:21] LABS: Glucose,Whole Blood 184 mg/dL (75-99)
[2019-08-25 11:49] LABS: Glucose,Whole Blood 156 mg/dL (75-99)
[2019-08-25 12:10] LABS: Glucose,Whole Blood 210 mg/dL (75-99)
--- NOTE | 2019-08-25 17:14 | PN ---
PROGRESS NOTE DATE OF SERVICE: 08/25/2019 This 64-year-old gentleman who was admitted with diabetic foot ulcer with and significant edema. Patient is being treated with empiric IV Lasix at this time. As far as intake/output is concerned, the patient appears to be in positive balance per chart. PAST MEDICAL HISTORY: Reviewed. REVIEW OF SYSTEMS: CARDIOVASCULAR SYSTEM: No angina or palpitations. RESPIRATIONS: As mentioned earlier. GI as mentioned earlier. : No dysuria. CENTRAL NERVOUS SYSTEM: No numbness or weakness. CURRENT MEDICATIONS: Reviewed and include: 1. Ventolin p.r.n. 2. Aspirin 81 mg p.o. daily. 3. Lipitor 80 mg daily. 4. Symbicort 160/4.5 2 puffs b.i.d. 5. Cardizem 60 mg daily. 6. Benadryl 25 mg p.o. daily. 7. Colace 100 mg p.o. daily. 8. Flonase. 9. Lasix 40 mg IV b.i.d. 10.NovoLog scale. 11.Levemir. 12.Zestril. 13.Lopressor. 14.Flagyl. 15.Coumadin. 16.MS Contin. 17.Narcan. 18.Nitrostat. 19.Pamelor. 20.Percocet. 21.Protonix. 22.Lyrica. 23.Topamax. 24.Vancomycin. 25.Doses reviewed. PHYSICAL EXAM: Patient is alert and oriented x2. Pulse 72. Blood pressure 134/70, respiration 18, temperature 97.9, pulse ox 94% on 2 L. HEENT: Conjunctivae normal. NECK: No JVD. CARDIOVASCULAR: S1, S2 muffled. RESPIRATORY: Breath sounds diminished in the bases. Scattered rhonchi and crackles. ABDOMEN: Soft, obese. Nontender. LEGS: Bilateral leg edema. Status post surgery on the left foot. NERVOUS SYSTEM: No focal deficits. LABS: WBC 17.8, hemoglobin 15.6. INR is 2. Sodium 130, potassium 4.4 and glucose is 44. Calcium is 8.1. Please also note the patient has hypoglycemia. ASSESSMENT: 1. Diabetic foot ulcer on the left with possible osteomyelitis of the left foot with slow improvement with MRSA and anaerobic gram-positive cocci types 2 grown from the culture. 2. Status post amputation of left foot 4th and 5th toe metatarsophalangeal joint. 3. Chronic deep vein thrombosis and pulmonary embolism. 4. Bilateral leg edema. 5. Persistent atrial fibrillation, poorly controlled. 6. Diabetes mellitus type 2. 7. Generalized anxiety disorder. 8. Chronic chronic obstructive pulmonary disease. 9. Coumadin monitoring. 10.Hyponatremia. 11.Mild hypokalemia. 12.Obesity with body mass index of 39.2. 13.FULL CODE. 14.Gait dysfunction. 15.History of noncompliance. RECOMMENDATIONS AND DISCUSSION: This 64-year-old gentleman who presented with multiple complex medical issues, at this time, I recommend to continue current medications, management and symptomatic treatment. I recommend adequate intake/output charting and daily weights. Would add Zaroxolyn to the current regimen and limit p.o. intake. Continue the rest of antibiotics. Discussed with the family, the daughter and the at the bedside. Otherwise, prognosis guarded because of the multiple complex medical issues. Further recommendations to follow. KIRAN / WILLN: [id number] / MTDBassem
[2019-08-25 17:20] LABS: Glucose,Whole Blood 188 mg/dL (75-99)
[2019-08-25] MEDS ORDERED: WARFARIN 7.5 MG TAB PO ONE (18:00)
[2019-08-25] MEDS: METOLAZONE 5 MG TAB PO SCH (18:45)
[2019-08-25 20:07] LABS: Glucose,Whole Blood 255 mg/dL (75-99)
[2019-08-25] MEDS: INSULIN DETEMIR (LEVEMIR) 100 UNIT/ML SYR SQ SCH (21:28)
[2019-08-25] MEDS: oxyCODONE-APAP 10-325MG 1 EACH TAB PO PRN (21:29)
[2019-08-25] MEDS: NORTRIPTYLINE 25 MG CAP PO SCH (21:29)
[2019-08-25] MEDS: ATORVASTATIN 80 MG TAB PO SCH (21:30)
--- NOTE | 2019-08-25 22:37 | PN ---
PROGRESS NOTE DATE OF SERVICE: 08/25/2019. REASON FOR FOLLOWUP: Left diabetic foot infection with osteomyelitis. INTERIM HISTORY: The patient is currently afebrile, has been breathing comfortably. Pain is currently controlled. No nausea, vomiting, abdominal pain, no diarrhea. He did have significant drainage from his left foot wound. PHYSICAL EXAMINATION: Blood pressure 133/76, pulse 113, temperature 98.2. He is 95% on 2 L nasal cannula. General description is a middle-aged male lying in bed in no distress. Respiratory system: Unlabored breathing. Clear to auscultation anteriorly. Heart S1, S2. Regular rate and rhythm. Abdomen soft, no tenderness. The left foot did have minimal maceration, but no purulence was noticed. Some swelling but no redness or any foul- smelling drainage. LABS: Hemoglobin 16.2, white count up to 17.8, creatinine 0.98. DIAGNOSTIC IMPRESSION AND PLAN: Patient with left foot osteomyelitis. Culture has been positive for MRSA and anaerobic gram-positive cocci. The patient now with significant jump in white count. Wound did have drainage and ulceration, but no purulence was noticed. We will switch over local wound care with dry Aquacel Silver dressing and ability to be changed to daily and as needed in order to keep the wound dry as much as possible. Keep the patient on vancomycin and Flagyl and monitor his clinical course closely. Continue supportive care. MMODL / IJN: [id number] /
[2019-08-26] MEDS: VANCOMYCIN 2,000 MG in SODIUM CHLORIDE 0.9% 500 ML 500 ML IVPB SCH ×2 (05:03→15:28)
[2019-08-26 07:14] LABS: Glucose,Whole Blood 120 mg/dL (75-99)
[2019-08-26 07:46] LABS: Basophils % (A) 0 %; Eosinophils # (A) 0.2 k/uL (0-0.7); Eosinophils % (A) 2 %; HCT 51.3 % (39.0-53.0); HGB 16.4 gm/dL (13.0-17.5); Lymphocytes # (A) 1.8 k/uL (1.0-4.8); Lymphocytes % (A) 13 %; MCH 30.7 pg (25.0-35.0); Mean Platelet Volume 7.7; Monocytes # (A) 0.5 k/uL (0-1.0); Monocytes % (A) 4 %; Neutrophils # (A) 10.7 k/uL (1.3-7.7); Neutrophils % (A) 80 %; Platelet Count 291 k/uL (150-450); RBC 5.35 m/uL (4.30-5.90); WBC 13.3 k/uL (3.8-10.6)
[2019-08-26] MEDS: INSULIN ASPART (NovoLOG) 100 UNIT/ML VIAL SQ SCH ×8 (07:59→21:43)
[2019-08-26] MEDS: DILTIAZEM ORAL 60 MG TAB PO SCH ×3 (08:04→21:43)
[2019-08-26] MEDS: TOPIRAMATE 25 MG TAB PO SCH ×2 (08:04→21:43)
[2019-08-26] MEDS: METOPROLOL TARTRATE 50 MG TAB PO SCH ×4 (08:05→18:33)
[2019-08-26] MEDS: PANTOPRAZOLE 40 MG TABLET PO SCH (08:05)
[2019-08-26] MEDS: FLUTICASONE 50MCG/SPRAY NASAL 16GM EA NOSTRIL SCH (08:05)
[2019-08-26] MEDS: MORPHINE SULFATE ER 30 MG TABLET PO SCH ×2 (08:05→15:27)
[2019-08-26] MEDS: FUROSEMIDE 10 MG/ML 4 ML VIAL IV SCH ×2 (08:05→21:52)
[2019-08-26 08:06] LABS: INR 2.3 (<1.2); Prothrombin Time 22.5 sec (9.0-12.0)
[2019-08-26] MEDS: PREGABALIN 100 MG CAP PO SCH ×2 (08:06→21:43)
[2019-08-26] MEDS: LISINOPRIL 20 MG TAB PO SCH (08:06)
[2019-08-26] MEDS: MULTIVITAMINS, THERA 1 EACH TAB PO SCH (08:06)
[2019-08-26] MEDS: diphenhydrAMINE 25 MG CAP PO SCH ×2 (08:06→08:10)
[2019-08-26] MEDS: ASPIRIN 81 MG PO SCH (08:06)
[2019-08-26] MEDS: metroNIDAZOLE 500 MG TAB PO SCH ×3 (08:06→21:43)
[2019-08-26 08:16] LABS: Calcium 8.3 mg/dL (8.4-10.2); Potassium 4.8 mmol/L (3.5-5.1)
[2019-08-26] MEDS: IPRATROPIUM 0.5 MG/2.5 ML NEBU INHALATION SCH ×4 (09:15→20:10)
[2019-08-26] MEDS: SYMBICORT 160-4.5 MCG INHALER INHALATION SCH ×2 (09:17→20:10)
[2019-08-26 12:02] LABS: Glucose,Whole Blood 102 mg/dL (75-99)
--- NOTE | 2019-08-26 12:59 | PN ---
PROGRESS NOTE DATE OF SERVICE: 08/26/2019 REASON FOR FOLLOWUP: Left foot osteomyelitis. INTERVAL HISTORY: The patient is currently afebrile, has been breathing comfortably. The patient denies having any chest pain or shortness of breath or cough. No nausea, vomiting. No abdominal pain or any worsening pain to the left foot. PHYSICAL EXAMINATION: Blood pressure 108/73 with a pulse of 72, temperature 98. He is 94% on 2 L nasal cannula. General description is a middle-aged male lying in bed in no distress. RESPIRATORY SYSTEM: Unlabored breathing, clear to auscultation anteriorly. HEART: S1, S2. Regular rate and rhythm. ABDOMEN: Soft. No tenderness. Left foot did have some maceration and blood-stained drainage, but no purulence. LABS: Hemoglobin 16.4, white count of 13.3. INR is 2.3. Creatinine is 1.08. DIAGNOSTIC IMPRESSION AND PLAN: Patient with left foot osteomyelitis in this patient who is status post left fourth and fifth toe amputation. Wound culture with methicillin-resistant Staphylococcus aureus and anaerobic gram-positive cocci. The patient is currently covered with vancomycin and oral Flagyl to continue. White count showed a downward trend. Local care with dry Aquacel Silver dressing, keep the area off the pressure and keep it elevated. MMODL / IJN: [id number] /
[2019-08-26] MEDS: METOLAZONE 5 MG TAB PO SCH (15:28)
--- NOTE | 2019-08-26 16:45 | P.PN ---
Subjective Progress Note Date: 08/26/19 Principal diagnosis: Principal diagnosis: Diabetic foot ulcer, possible osteomyelitis involving the left foot Persistent atrial fibrillation with poorly controlled ventricular rate Acute mental status change likely secondary to toxic metabolic encephalopathy related to infection 62-year-old white male with history of COPD, deep vein thrombosis/pulmonary embolism, diabetes/ neuropathy, degenerative joint disease, patient had previous history of bilateral deep vein thromboses and pulmonary embolism, chronically on anticoagulations therapy/Coumadin. Patient has been followed recently at the wound care center by Dr. Naranjo for chronic left foot plantar ulcer, and yesterday the patient was noticing foul-smelling discharge coming from the left foot ulcer. He was told by his primary care physician that he may have a foreign body in the foot. Hence the patient came into the ER. While in the ER, patient had shortness of breath and weakness, he was noted to be in atrial fibrillation and RVR. Patient was admitted, placed on Cardizem drip, cardiology consult was initiated, patient was placed on heparin, 08/17/2019 Patient remains in the ICU; patient remains in atrial fibrillation with RVR with heart rate in 1 teens to 130s, cardiology is on the case; patient is started on oral Cardizem, and increased his Lopressor to 50 mg by mouth twice a day. Patient is hemodynamically stable. Patient was evaluated by vascular surgery for his foot ulcer, and the recommendation was to have Dr. Naranjo see him; Dr. Naranjo is consulted and recommendations are pending. In the meantime the patient is receiving antibiotics as per infectious disease on the case and changed IV antibiotic therapy to vancomycin and Unasyn; Zosyn has been discontinued. Patient is complaining that his home medications have not been started, which I ordered His CBC is relatively normal INR is 2.5 electrolytes are normal renal profile is normal; patient has been cleared for transfer to [facility] (formerly [facility]3], and I have consulted Dr. Naranjo three-phase bone scan is pending 08/18/2019 Patient is evaluated in selective care unit; patient and family quite upset since patient was not seen by Dr. Naranjo is patient's primary billing specialist Patient's vital signs remained stable in form of a blood pressure 133/94, SpO2 of 95% on room air; lab review shows an INR of 2.7, potassium 5.2, BUN 30 and creatinine of 1.03; not count is slightly elevated at 11.7; patient's heart rate does fluctuate between 70-80 upto 130; cardiology recommending to continue with Cardizem at an increased dose of 60 mg 3 times a day along with Lopressor 50 mg daily Patient was evaluated by infection disease and underwent wound cleaning; recomm endations are to continue current antibiotic therapy; 08/19/2019 Patient is seen in follow-up stating that he would like to go home. Cardiology and infectious disease following the patient. Patient currently remains on IV antibiotics in the form of Unasyn and vancomycin. Preliminary cultures of the left leg wound showing gram-positive cocci with MRSA. Currently patient denies any chest pain, shortness of breath, or palpitations. Patient is afebrile. Patient denying any nausea or vomiting and is tolerating diet. INR today is 1.9 and will continue with Coumadin. Will repeat a.m. labs. Patient is presently rate controlled with Cardizem and metoprolol and will continue at this time. Will continue to monitor closely. 08/20/2019 Patient seen in follow-up today awaiting a consult with Dr. Mcintyre for possible amputation of the left foot fourth and fifth toe along with wound debridement of the plantar aspect of the left foot and is being closely monitored. Patient was seen by Dr. Naranjo recommending surgical consult with Dr. Mcintyre. Patient is scheduled for surgery this afternoon. Infectious disease is following as well. Patient did receive a PICC line and is currently on IV antibiotics in the form of Unasyn and vancomycin and will continue at this time. Case management and social work following for possible ECF to continue with IV antibiotic therapy once stabilized. Patient is currently on anticoagulation with Coumadin and PT/INR this morning was 1.7 and will repeat a.m. labs. No reports of chest pain or palpitations. Patient is afebrile. 08/21/2019 Patient is seen and evaluated in follow-up today and underwent amputation of the left foot fourth and fifth toe at the metatarsophalangeal joint along with debridement of the wound at the plantar aspect of the left foot with Dr. Mcintyre and is being closely monitored. Patient remains on IV antibiotics in the form of Unasyn and vancomycin and will continue at this time. Infectious disease is following. PT/INR today is 1.9 currently remains on Coumadin. Patient awaiting PT/OT eval as he proceeded to get up on his own today and walked to the bathroom with full weightbearing on his left foot causing some bleeding. Discussed with the patient at length about nonweightbearing of that left foot and using the heel only. Blood sugars remain elevated and is being covered with sliding scale along with long-acting. Nursing staff mentioned that family continues to bring in regular soda and sugared foods. Discussed with the patient and daughter at the bedside about refraining from increased sugar as he needs to have tight control of his blood sugars to optimize healing. Will continue to monitor kameron posadas. 08/22/2019 This is a 64-year-old male who was recently undergone amputation of the fourth and fifth toe along with wound debridement of the left foot and is being closely monitored. Dr. Mcintyre is following. Patient continues to walk to the bathroom and has been weightbearing on the left foot and the dressing has needed frequent changing. Patient is being maintained on IV antibiotics and will continue at this time. Patient continues to state he would really like to go home and is agreeable to home care but is adamant against any type of rehab. Blood sugars remain elevated and steroids are being discontinued. Will continue to monitor closely. 08/23/2019 Patient Is seen in follow-up today having recently undergone amputation of the fourth and fifth toe along with wound debridement of the left foot and is being closely monitored. Patient is continued on IV vancomycin along with oral Flagyl and will continue at this time. Dr. Mcintyre was in to evaluate the patient today along with the dressing change as patient continues to have drainage and moisture surrounding the sutures of the surgical site. Discussed with the patient at length about continuing with nonweightbearing as he continues to walk on that foot. PT/OT is following. INR is therapeutic at 2.9 today. Patient remains on Coumadin for anticoagulation. Blood sugars continue to be elevated and will continue to monitor closely. Patient remains on long-acting along with sliding scale. Steroids have been discontinued. 08/26/2019 Patient is seen and evaluated in follow-up today and continues to have signi ficant edema noted to the left lower extremity. Nursing staff stated there was some bleeding noted from the incision site and awaiting Dr. Mcintyre to evaluate. Patient is having some hypotension along with dizziness, lightheadedness and multiple adjustments to medications have been made. Will continue to monitor closely. Appreciate cardiology input. Will continue to monitor vital signs closely. Review of systems: Cardiovascular: No reports of chest pain or palpitations Respiratory: No reports of shortness of breath or cough GI: No reports of nausea, vomiting, diarrhea : No reports of dysuria or retention Neurological: Reports dizziness, lightheadedness Active Medications Albuterol Sulfate (Ventolin Nebulized) 2.5 mg INHALATION RT-QID PRN PRN Reason: Shortness Of Breath Last Admin: 08/26/19 09:15 Dose: 2.5 mg Documented by: Aspirin (Aspirin) 81 mg PO DAILY [facility] Last Admin: 08/26/19 08:06 Dose: 81 mg Documented by: Atorvastatin Calcium (Lipitor) 80 mg PO HS [facility] Last Admin: 08/25/19 21:30 Dose: 80 mg Documented by: Budesonide/Formoterol Fumarate (Symbicort 160-4.5 Mcg Inhaler) 2 puff INHALATION RT-BID [facility] Last Admin: 08/26/19 09:17 Dose: 2 puff Documented by: Diltiazem HCl (Cardizem Oral) 60 mg PO TID [facility] Last Admin: 08/26/19 15:27 Dose: 60 mg Documented by: Diphenhydramine HCl (Benadryl) 25 mg PO DAILY [facility] Last Admin: 08/26/19 08:10 Dose: Not Given Documented by: Docusate Sodium (Colace) 100 mg PO DAILY PRN PRN Reason: Constipation Fluticasone Propionate (Flonase Nasal [place]) 2 spray EA NOSTRIL DAILY [facility] Last Admin: 08/26/19 08:05 Dose: 2 spray Documented by: Furosemide (Lasix) 40 mg IV BID [facility] Last Admin: 08/26/19 08:05 Dose: 40 mg Documented by: Insulin Human Regular 100 unit (/ Sodium Chloride) 101 mls @ 0 mls/hr IV .Q0M [facility]; Protocol Last Titration: 08/20/19 08:11 Dose: 0 units/hr, 0 mls/hr Documented by: Vancomycin HCl 2,000 mg/ (Sodium Chloride) 500 mls @ 167 mls/hr IVPB Q12H [facility] Last Admin: 08/26/19 15:28 Dose: 167 mls/hr Documented by: Insulin Aspart (Novolog) 0 unit SQ ACHS [facility]; Protocol Last Admin: 08/26/19 15:28 Dose: Not Given Documented by: Insulin Aspart (Novolog) 10 unit SQ ACHS [facility] Last Admin: 08/26/19 15:28 Dose: Not Given Documented by: Insulin Detemir (Levemir) 72 unit SQ [facility] Last Admin: 08/25/19 21:28 Dose: 72 unit Documented by: Ipratropium [place] (Atrovent Nebulized) 0.5 mg INHALATION RT-QID [facility] Last Admin: 08/26/19 15:17 Dose: 0.5 mg Documented by: Lisinopril (Zestril) 20 mg PO DAILY [facility] Last Admin: 08/26/19 08:06 Dose: 20 mg Documented by: Metolazone (Zaroxolyn) 5 mg PO DAILY [facility] Last Admin: 08/26/19 15:28 Dose: 5 mg Documented by: Metoprolol Tartrate (Lopressor) 50 mg PO TID [facility] Last Admin: 08/26/19 08:05 Dose: 50 mg Documented by: Metronidazole (Flagyl) 500 mg PO TID [facility] Last Admin: 08/26/19 15:27 Dose: 500 mg Documented by: Miscellaneous Information (Coumadin Per Pharmacy) 0 each MISCELLANE DIRECTED PRN PRN Reason: Per protocol Miscellaneous Information (Vancomycin Trough Due) 0 each MISCELLANE DIRECTED ONE Stop: 08/27/19 15:01 Morphine Sulfate (Ms Contin) 30 mg PO Q8HR [facility] Last Admin: 08/26/19 15:27 Dose: 30 mg Documented by: Multivitamins (Theragran) 1 each PO DAILY [facility] Last Admin: 08/26/19 08:06 Dose: 1 each Documented by: Naloxone HCl (Narcan) 0.2 mg IV Q2M PRN PRN Reason: Opioid Reversal Nitroglycerin (Nitrostat) 0.4 mg SUBLINGUAL Q5M PRN PRN Reason: Chest Pain Nortriptyline HCl (Pamelor) 50 mg PO HS [facility] Last Admin: 08/25/19 21:29 Dose: 50 mg Documented by: Oxycodone/Acetaminophen (Percocet 10-325) 1 each PO Q6H PRN PRN Reason: Pain Last Admin: 08/25/19 21:29 Dose: 1 each Documented by: Pantoprazole Sodium (Protonix) 40 mg PO AC-BRKFST [facility] Last Admin: 02/17/20 08:05 Dose: 40 mg Documented by: Pregabalin (Lyrica) 300 mg PO BID [facility] Last Admin: 08/26/19 08:06 Dose: 300 mg Documented by: Sodium Chloride (Saline Flush) 10 ml IV Q4HR PRN PRN Reason: PICC Line Sodium Chloride (Saline Flush) 10 ml IV WEEKLY [facility] Last Admin: 08/23/19 08:38 Dose: 10 ml Documented by: Sodium Chloride (Saline Flush) 20 ml IV Q4HR PRN PRN Reason: PICC Line Topiramate (Topamax) 25 mg PO BID [facility] Last Admin: 08/26/19 08:04 Dose: 25 mg Documented by: Warfarin Sodium (Coumadin) 6 mg PO ONCE@1800 ONE Stop: 08/26/19 18:01 Objective - Vital Signs Vital signs: Vital Signs Temp 97.5 F L 08/26/19 15:00 Pulse 76 08/26/19 15:28 Resp 18 08/26/19 15:00 BP 82/65 08/26/19 15:26 Pulse Ox 90 L 08/26/19 15:00 Intake & Output 08/25/19 08/26/19 08/26/19 18:59 06:59 18:59 Intake Total 1470 Output Total 700 Balance 770 Intake: Intake, IV Titration 750 Amount Dextrose 10 % in Water 250 250 ml @ 999 mls/hr IV ONCE [facility] Rx#:[id number] Vancomycin 2,000 mg In 500 Sodium Chloride 0.9% 500 ml 500 ml @ 167 mls/hr IVPB Q12H [facility] Rx#: [id number] Oral 720 Output: Urine 700 Other: Voiding Method Urinal # Voids 3 2 2 - Exam General: This is a 64-year-old male sitting up in the chair, awake, alert and oriented 3, well-developed, well-nourished. Temp is 97.5, pulse is 116, respirations are 18, blood pressure is 82/65, oxygen saturation is 90% on room air. Head: Atraumatic normocephalic. HEENT:[Neck is supple.] [No neck masses.] [No thyromegaly.] [No JVD.] PERRLA, EOMI, no icterus. Chest: Diminished breath sounds at the bases with no crackles or wheezing noted. A few scattered rhonchi noted. Cardiac Exam: S1, S2 are muffled Abdomen: [Soft, obese, nontender, no megaly, no rebound, no guarding, normal bowel sounds.] Extremities: Evidence of bilateral lower extremity edema. Surgical dressing noted of the left lower extremity and foot. Left lower extremity is elevated up on a pillow at this time. Neurological Exam: Alert and oriented 3. - Labs CBC & Chem 7: 08/26/19 07:14 08/26/19 07:14 Labs: Abnormal Lab Results - Last 24 Hours (Table) 08/25/19 08/25/19 08/26/19 Range/Units 17:18 20:06 07:12 WBC (3.8-10.6) k/uL Neutrophils # (1.3-7.7) k/uL PT (9.0-12.0) sec INR (<1.2) Sodium (137-145) mmol/L Chloride (98-107) mmol/L Carbon Dioxide (22-30) mmol/L BUN (9-20) mg/dL Glucose (74-99) mg/dL POC Glucose (mg/dL) 188 H 255 H 120 H (75-99) mg/dL Calcium (8.4-10.2) mg/dL 08/26/19 08/26/19 08/26/19 Range/Units 07:14 07:14 07:14 WBC 13.3 H (3.8-10.6) k/uL Neutrophils # 10.7 H (1.3-7.7) k/uL PT 22.5 H (9.0-12.0) sec INR 2.3 H (<1.2) Sodium 135 L (137-145) mmol/L Chloride 95 L (98-107) mmol/L Carbon Dioxide 34 H (22-30) mmol/L BUN 32 H (9-20) mg/dL Glucose 112 H (74-99) mg/dL POC Glucose (mg/dL) (75-99) mg/dL Calcium 8.3 L (8.4-10.2) mg/dL 08/26/19 Range/Units 12:00 WBC (3.8-10.6) k/uL Neutrophils # (1.3-7.7) k/uL PT (9.0-12.0) sec INR (<1.2) Sodium (137-145) mmol/L Chloride (98-107) mmol/L Carbon Dioxide (22-30) mmol/L BUN (9-20) mg/dL Glucose (74-99) mg/dL POC Glucose (mg/dL) 102 H (75-99) mg/dL Calcium (8.4-10.2) mg/dL Microbiology - Last 24 Hours (Table) 08/20/19 15:15 Gram Stain - Final Foot - Left Tissue Culture - Final Staphylococcus epidermidis Assessment and Plan Assessment: Diabetic foot ulcer, on the left with possible osteomyelitis of the left foot with slow improvement with MRSA and anaerobic gram-positive cocci types 2 grown from the culture 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 at the metatarsophalangeal joint and debridement of the wound at the plantar aspect of the left foot with removal of devitalized tissue 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; patient has history of Isabell filter placement; patient remains on anticoagulation therapy Bilateral leg edema Persistent atrial fibrillation with poorly controlled ventricular rate most likely secondary to chronic thromboembolic disease/pulmonary embolism Type 2 diabetes Generalized anxiety disorder Coumadin monitoring Hyponatremia Mild hypokalemia Gait dysfunction History of noncompliance Obesity with a body mass index of 39.2 COPD; not in exacerbation CODE STATUS; full code Recommendations and discussion: Recommend to continue current medications, management, and symptomatic treatment. Infectious disease and Dr. Mcintyre are following. Continue with IV antibiotics in the form of vancomycin along with oral Flagyl. Patient was experiencing some hypotension today prior to discharge and has had multiple medications added and adjusted to his regimen including metoprolol, metolazone, and increase in Cardizem and is being closely monitored. Appreciate cardiology input. Patient was seen and evaluated by Dr. Mcintyre today stating he could go home. Will discontinue discharge at this time as patient remains hypotensive with dizziness and lightheadedness and is being closely monitored. Due to multiple complex medical issues, prognosis is guarded. Further recommendations to follow. Hold this evening's metoprolol dose. Possible discharge in 24 hours.
[2019-08-26 17:05] LABS: Glucose,Whole Blood 185 mg/dL (75-99)
[2019-08-26] MEDS ORDERED: WARFARIN 3 MG TAB PO ONE (18:00)
[2019-08-26 20:32] LABS: Glucose,Whole Blood 164 mg/dL (75-99)
[2019-08-26] MEDS: NORTRIPTYLINE 25 MG CAP PO SCH (21:43)
[2019-08-26] MEDS: ATORVASTATIN 80 MG TAB PO SCH (21:43)
[2019-08-26] MEDS: INSULIN DETEMIR (LEVEMIR) 100 UNIT/ML SYR SQ SCH (21:44)
[2019-08-27] MEDS: MORPHINE SULFATE ER 30 MG TABLET PO SCH ×3 (00:43→15:37)
[2019-08-27] MEDS: VANCOMYCIN 2,000 MG in SODIUM CHLORIDE 0.9% 500 ML 500 ML IVPB SCH ×2 (04:56→20:54)
[2019-08-27 07:36] LABS: Basophils % (A) 0 %; Eosinophils # (A) 0.1 k/uL (0-0.7); Eosinophils % (A) 1 %; HCT 46.8 % (39.0-53.0); HGB 15.1 gm/dL (13.0-17.5); Lymphocytes # (A) 1.1 k/uL (1.0-4.8); Lymphocytes % (A) 8 %; MCH 30.8 pg (25.0-35.0); MCHC 32.3 g/dL (31.0-37.0); MCV 95.3 fL (80.0-100.0); Mean Platelet Volume 7.8; Monocytes # (A) 0.5 k/uL (0-1.0); Monocytes % (A) 4 %; Neutrophils # (A) 11.1 k/uL (1.3-7.7); Neutrophils % (A) 85 %; Platelet Count 215 k/uL (150-450); RBC 4.91 m/uL (4.30-5.90); RDW 14.9 % (11.5-15.5)
[2019-08-27 07:47] LABS: Glucose,Whole Blood 135 mg/dL (75-99)
[2019-08-27 07:50] LABS: African American GFR (CKD) >90 (>60 ml/min/1.73 sqM); Anion Gap 7 mmol/L; Blood Urea Nitrogen 34 mg/dL (9-20); Calcium 8.1 mg/dL (8.4-10.2); Carbon Dioxide 31 mmol/L (22-30); Chloride 93 mmol/L (98-107); Glucose 169 mg/dL (74-99); Non-African American GFR(CKD) 86 (>60 ml/min/1.73 sqM); Potassium 4.2 mmol/L (3.5-5.1); Sodium 131 mmol/L (137-145)
[2019-08-27 07:52] LABS: INR 2.9 (<1.2); Prothrombin Time 28.4 sec (9.0-12.0)
[2019-08-27] MEDS: INSULIN ASPART (NovoLOG) 100 UNIT/ML VIAL SQ SCH ×8 (08:07→21:43)
[2019-08-27] MEDS: FUROSEMIDE 10 MG/ML 4 ML VIAL IV SCH ×2 (08:09→08:11)
[2019-08-27] MEDS: LISINOPRIL 20 MG TAB PO SCH (08:09)
[2019-08-27] MEDS: METOPROLOL TARTRATE 50 MG TAB PO SCH ×2 (08:09→15:35)
[2019-08-27] MEDS: METOLAZONE 5 MG TAB PO SCH (08:09)
[2019-08-27] MEDS: MULTIVITAMINS, THERA 1 EACH TAB PO SCH (08:11)
[2019-08-27] MEDS: metroNIDAZOLE 500 MG TAB PO SCH (08:11)
[2019-08-27] MEDS: PANTOPRAZOLE 40 MG TABLET PO SCH (08:11)
[2019-08-27] MEDS: ASPIRIN 81 MG PO SCH (08:11)
[2019-08-27] MEDS: TOPIRAMATE 25 MG TAB PO SCH ×2 (08:12→21:41)
[2019-08-27] MEDS: DILTIAZEM ORAL 60 MG TAB PO SCH ×2 (08:12→15:35)
[2019-08-27] MEDS: diphenhydrAMINE 25 MG CAP PO SCH (08:12)
[2019-08-27] MEDS: PREGABALIN 100 MG CAP PO SCH ×2 (08:12→21:41)
[2019-08-27] MEDS: FLUTICASONE 50MCG/SPRAY NASAL 16GM EA NOSTRIL SCH (08:12)
[2019-08-27] MEDS: SYMBICORT 160-4.5 MCG INHALER INHALATION SCH ×2 (08:16→19:49)
[2019-08-27] MEDS: IPRATROPIUM 0.5 MG/2.5 ML NEBU INHALATION SCH ×4 (08:16→19:49)
--- NOTE | 2019-08-27 11:22 | CDI ---
Documentation Clarification Form Date: 08/27/2019 10:48:32 AM From: Enid Mederos RN, CCDS Admit Date: 08/15/2019 10:08:00 PM Patient Name: Checo Quijano Visit Number: [id number] Discharge Date: ATTENTION: The Clinical Documentation Specialists (CDI) and [facility] Coding Staff appreciate your assistance in clarifying documentation. Please respond to the clarification below the line at the bottom and electronically sign. The CDI & [facility] Coding staff will review the response and follow-up if needed. Please note: Queries are made part of the Legal Health Record. If you have any questions, please contact the author of this message via ITS. Dr. Shadia Alvarez The final diagnosis of the pathology report states: Left forth and fifth toes, amputation: Ulcer with gangrenous necrosis acute inflammation and abscess. Underlying bone with minimal acute osteomyelitis and chronic reactive/degenerative changes. Documentation states: 08/16 -08/26 Diabetic foot ulcer, possible osteomyelitis involving the left foot. Patient history/risk factors: 64-year-old presented to the emergency room on 08/11/19 for management of a developing left foot infection. The ulcer as reported for approximately 1 month duration. Patient was seen by his primary care doctor then referred to the wound care center. He was under treatment for a diabetic foot ulcer with osteomyelitis of the left foot Clinical Indicators: Diabetic foot ulcer, Left leg cellulitis 08/17/19 Bone scan left foot: Activity In the digits is likely degenerative. Difficult to exclude osteomyelitis involving the medial epiphysis side of the patients opens sores. Treatment: Flagyl 500 mg TID Vancomycin 2,000 mg IV Q12 HR (PTD) 08/20/19 Amputation of the left foot fourth and fifth toe at the metatarsophalangeal joint and debridement of the wound In your professional opinion, do you agree with the pathology report specifying underlying bone with minimal acute osteomyelitis and chronic reactive/degenerative changes? Yes No Other (please specify) Unable to determine (Last Revision: April 2017) Yes MICHEAL
[2019-08-27 11:54] LABS: Glucose,Whole Blood 337 mg/dL (75-99)
[2019-08-27] MEDS ORDERED: VANCOMYCIN TROUGH DUE 1 EACH MISC MISCELLANE ONE (15:00)
--- NOTE | 2019-08-27 16:11 | P.PN ---
Subjective Progress Note Date: 08/27/19 Principal diagnosis: Principal diagnosis: Diabetic foot ulcer, possible osteomyelitis involving the left foot Persistent atrial fibrillation with poorly controlled ventricular rate Acute mental status change likely secondary to toxic metabolic encephalopathy related to infection 62-year-old white male with history of COPD, deep vein thrombosis/pulmonary embolism, diabetes/ neuropathy, degenerative joint disease, patient had previous history of bilateral deep vein thromboses and pulmonary embolism, chronically on anticoagulations therapy/Coumadin. Patient has been followed recently at the wound care center by Dr. Naranjo for chronic left foot plantar ulcer, and yesterday the patient was noticing foul-smelling discharge coming from the left foot ulcer. He was told by his primary care physician that he may have a foreign body in the foot. Hence the patient came into the ER. While in the ER, patient had shortness of breath and weakness, he was noted to be in atrial fibrillation and RVR. Patient was admitted, placed on Cardizem drip, cardiology consult was initiated, patient was placed on heparin, 08/17/2019 Patient remains in the ICU; patient remains in atrial fibrillation with RVR with heart rate in 1 teens to 130s, cardiology is on the case; patient is started on oral Cardizem, and increased his Lopressor to 50 mg by mouth twice a day. Patient is hemodynamically stable. Patient was evaluated by vascular surgery for his foot ulcer, and the recommendation was to have Dr. Naranjo see him; Dr. Naranjo is consulted and recommendations are pending. In the meantime the patient is receiving antibiotics as per infectious disease on the case and changed IV antibiotic therapy to vancomycin and Unasyn; Zosyn has been discontinued. Patient is complaining that his home medications have not been started, which I ordered His CBC is relatively normal INR is 2.5 electrolytes are normal renal profile is normal; patient has been cleared for transfer to [facility], and I have consulted Dr. Naranjo three-phase bone scan is pending 08/18/2019 Patient is evaluated in selective care unit; patient and family quite upset since patient was not seen by Dr. Naranjo is patient's primary marketing data specialist Patient's vital signs remained stable in form of a blood pressure 133/94, SpO2 of 95% on room air; lab review shows an INR of 2.7, potassium 5.2, BUN 30 and creatinine of 1.03; not count is slightly elevated at 11.7; patient's heart rate does fluctuate between 70-80 upto 130; cardiology recommending to continue with Cardizem at an increased dose of 60 mg 3 times a day along with Lopressor 50 mg daily Patient was evaluated by infection disease and underwent wound cleaning; recomm endations are to continue current antibiotic therapy; 08/19/2019 Patient is seen in follow-up stating that he would like to go home. Cardiology and infectious disease following the patient. Patient currently remains on IV antibiotics in the form of Unasyn and vancomycin. Preliminary cultures of the left leg wound showing gram-positive cocci with MRSA. Currently patient denies any chest pain, shortness of breath, or palpitations. Patient is afebrile. Patient denying any nausea or vomiting and is tolerating diet. INR today is 1.9 and will continue with Coumadin. Will repeat a.m. labs. Patient is presently rate controlled with Cardizem and metoprolol and will continue at this time. Will continue to monitor closely. 08/20/2019 Patient seen in follow-up today awaiting a consult with Dr. Mcintyre for possible amputation of the left foot fourth and fifth toe along with wound debridement of the plantar aspect of the left foot and is being closely monitored. Patient was seen by Dr. Naranjo recommending surgical consult with Dr. Mcintyre. Patient is scheduled for surgery this afternoon. Infectious disease is following as well. Patient did receive a PICC line and is currently on IV antibiotics in the form of Unasyn and vancomycin and will continue at this time. Case management and social work following for possible ECF to continue with IV antibiotic therapy once stabilized. Patient is currently on anticoagulation with Coumadin and PT/INR this morning was 1.7 and will repeat a.m. labs. No reports of chest pain or palpitations. Patient is afebrile. 08/21/2019 Patient is seen and evaluated in follow-up today and underwent amputation of the left foot fourth and fifth toe at the metatarsophalangeal joint along with debridement of the wound at the plantar aspect of the left foot with Dr. Mcintyre and is being closely monitored. Patient remains on IV antibiotics in the form of Unasyn and vancomycin and will continue at this time. Infectious disease is following. PT/INR today is 1.9 currently remains on Coumadin. Patient awaiting PT/OT eval as he proceeded to get up on his own today and walked to the bathroom with full weightbearing on his left foot causing some bleeding. Discussed with the patient at length about nonweightbearing of that left foot and using the heel only. Blood sugars remain elevated and is being covered with sliding scale along with long-acting. Nursing staff mentioned that family continues to bring in regular soda and sugared foods. Discussed with the patient and daughter at the bedside about refraining from increased sugar as he needs to have tight control of his blood sugars to optimize healing. Will continue to monitor kameron posadas. 08/22/2019 This is a 64-year-old male who was recently undergone amputation of the fourth and fifth toe along with wound debridement of the left foot and is being closely monitored. Dr. Mcintyre is following. Patient continues to walk to the bathroom and has been weightbearing on the left foot and the dressing has needed frequent changing. Patient is being maintained on IV antibiotics and will continue at this time. Patient continues to state he would really like to go home and is agreeable to home care but is adamant against any type of rehab. Blood sugars remain elevated and steroids are being discontinued. Will continue to monitor closely. 08/23/2019 Patient Is seen in follow-up today having recently undergone amputation of the fourth and fifth toe along with wound debridement of the left foot and is being closely monitored. Patient is continued on IV vancomycin along with oral Flagyl and will continue at this time. Dr. Mcintyre was in to evaluate the patient today along with the dressing change as patient continues to have drainage and moisture surrounding the sutures of the surgical site. Discussed with the patient at length about continuing with nonweightbearing as he continues to walk on that foot. PT/OT is following. INR is therapeutic at 2.9 today. Patient remains on Coumadin for anticoagulation. Blood sugars continue to be elevated and will continue to monitor closely. Patient remains on long-acting along with sliding scale. Steroids have been discontinued. 08/26/2019 Patient is seen and evaluated in follow-up today and continues to have signi ficant edema noted to the left lower extremity. Nursing staff stated there was some bleeding noted from the incision site and awaiting Dr. Mcintyre to evaluate. Patient is having some hypotension along with dizziness, lightheadedness and multiple adjustments to medications have been made. Will continue to monitor closely. Appreciate cardiology input. Will continue to monitor vital signs closely. 08/27/2019 Patient is seen in follow-up today and continues to have some hypotension and is being closely monitored. Blood pressure medications were held this morning as his blood pressure continues to be 100 systolic. Awaiting cardiology reconsult for possible medication adjustments. Patient is maintained on IV antibiotics in the form of vancomycin and will continue at this time. Patient continues to have some dizziness and lightheadedness when standing. Patient also continues to have severe lower extremity swelling and is maintained on IV Lasix and will continue at this time. Once discharged patient will be transitioned oral Lasix. Will continue to monitor vital signs closely. No reports of chest pain, shortness of breath, or palpitations. Patient is afebrile. No reports of nausea or vomiting and patient is tolerating diet. Objective - Vital Signs Vital signs: Vital Signs Temp 97.9 F 08/27/19 07:00 Pulse 73 08/27/19 08:10 Resp 18 08/27/19 08:10 BP 100/68 08/27/19 07:00 Pulse Ox 91 L 08/27/19 07:00 Intake & Output 08/26/19 08/27/19 08/27/19 18:59 06:59 18:59 Intake Total 1580 Balance 1580 Intake: Intake, IV Titration 500 Amount Vancomycin 2,000 mg In 500 Sodium Chloride 0.9% 500 ml 500 ml @ 167 mls/hr IVPB Q12H [facility] Rx#: [id number] Oral 1080 Other: Voiding Method Urinal # Voids 2 2 4 # Bowel Movements 1 - Exam General: This is a 64-year-old male sitting up in the chair, awake, alert and oriented 3, well-developed, well-nourished. Temp is 97.9, pulse is 73, respirations are 18, blood pressure is 100/68, oxygen saturation is 91% on room air. Head: Atraumatic normocephalic. HEENT:[Neck is supple.] [No neck masses.] [No thyromegaly.] [No JVD.] PERRLA, EOMI, no icterus. Chest: Diminished breath sounds at the bases with no crackles or wheezing noted. A few scattered rhonchi noted. Cardiac Exam: S1, S2 are muffled Abdomen: [Soft, obese, nontender, no megaly, no rebound, no guarding, normal bowel sounds.] Extremities: Evidence of significant bilateral lower extremity edema. Surgical dressing noted of the left lower extremity and foot. Left lower extremity is elevated up on the chair Neurological Exam: Alert and oriented 3. - Labs CBC & Chem 7: 08/27/19 06:46 08/27/19 06:46 Labs: Abnormal Lab Results - Last 24 Hours (Table) 08/26/19 08/26/19 08/27/19 Range/Units 17:02 20:32 06:46 WBC (3.8-10.6) k/uL Neutrophils # (1.3-7.7) k/uL PT 28.4 H (9.0-12.0) sec INR 2.9 H (<1.2) Sodium (137-145) mmol/L Chloride (98-107) mmol/L Carbon Dioxide (22-30) mmol/L BUN (9-20) mg/dL Glucose (74-99) mg/dL POC Glucose (mg/dL) 185 H 164 H (75-99) mg/dL Calcium (8.4-10.2) mg/dL 08/27/19 08/27/19 08/27/19 Range/Units 06:46 06:46 07:44 WBC 13.0 H (3.8-10.6) k/uL Neutrophils # 11.1 H (1.3-7.7) k/uL PT (9.0-12.0) sec INR (<1.2) Sodium 131 L (137-145) mmol/L Chloride 93 L (98-107) mmol/L Carbon Dioxide 31 H (22-30) mmol/L BUN 34 H (9-20) mg/dL Glucose 169 H (74-99) mg/dL POC Glucose (mg/dL) 135 H (75-99) mg/dL Calcium 8.1 L (8.4-10.2) mg/dL 08/27/19 Range/Units 11:51 WBC (3.8-10.6) k/uL Neutrophils # (1.3-7.7) k/uL PT (9.0-12.0) sec INR (<1.2) Sodium (137-145) mmol/L Chloride (98-107) mmol/L Carbon Dioxide (22-30) mmol/L BUN (9-20) mg/dL Glucose (74-99) mg/dL POC Glucose (mg/dL) 337 H (75-99) mg/dL Calcium (8.4-10.2) mg/dL Assessment and Plan Assessment: Diabetic foot ulcer with gangrenous necrosis acute inflammation and abscess with underlying bone with minimal acute osteomyelitis and chronic reactive/degenerative changes with MRSA and anaerobic gram-positive cocci types 2 grown from the culture with possible sepsis, present on admission 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 at the metatarsophalangeal joint and debridement of the wound at the plantar aspect of the left foot with removal of devitalized tissue 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 Infectious disease and Dr. Mcintyre are following. Continue with IV antibiotics in the form of vancomycin. Patient had some episodes of hypotension yesterday and throughout the night and cardiology was consulted. Waiting cardiology consult at this time. Appreciate cardiology input. Will continue to monitor closely. Due to multiple complex medical issues, prognosis is guarded. Further recommendations to follow. Possible discharge in 24 hours.
[2019-08-27] MEDS ORDERED: VANCOMYCIN 2,000 MG in SODIUM CHLORIDE 0.9% 500 ML 500 ML IVPB SCH (16:15)
--- NOTE | 2019-08-27 16:15 | PN ---
PROGRESS NOTE DATE OF SERVICE: 08/27/2019 REASON FOR FOLLOWUP: Left diabetic foot infection with osteomyelitis. INTERVAL HISTORY: The patient is currently afebrile. The patient's discharge was put on hold yesterday, as the patient was hypotensive. The patient's blood pressure medication has been put on hold. Blood pressure this morning is stable. He denies having any chest pain or shortness of breath or cough. No abdominal pain or worsening pain to the left foot area. PHYSICAL EXAMINATION: Blood pressure is 100/68 with a pulse of 73, temperature 97.9. He is 91% on room air. General description is a middle-aged male lying in bed in no distress. RESPIRATORY SYSTEM: Unlabored breathing. Clear to auscultation anteriorly. HEART: S1, S2. Regular rate and rhythm. ABDOMEN: Soft. No tenderness. Left foot is currently dressed up. No obvious drainage on the dressing. LABS: Hemoglobin 15.1, white count 13, BUN of 34, creatinine 0.95. DIAGNOSTIC IMPRESSION AND PLAN: Patient with a left diabetic foot infection in this patient who is status post left fourth and fifth toe amputations. Patient's culture has been MRSA anaerobic Gram- positive cocci with elevated white count. Will switch the anaerobic coverage to Augmentin 875 b.i.d. and discontinue Flagyl. Continue the vancomycin. Will monitor clinical course closely. Continue with supportive care. MMODL / IJN: [id number] /
[2019-08-27 17:09] LABS: Glucose,Whole Blood 311 mg/dL (75-99)
[2019-08-27] MEDS ORDERED: WARFARIN 3 MG TAB PO ONE (18:00)
--- NOTE | 2019-08-27 18:22 | P.PN ---
Subjective This is Mi Castillo PA-C dictating a progress note on this patient Case discussed with Dr. Quarles and he agrees with the plan of care HPI/interval history Patient is a 62-year-old male with a past medical history of COPD, DVT PE, diabetes, and foot ulcers who presented for further evaluation of lower extremity edema. He underwent a left fourth and fifth toe amputation and has been started IV antibiotics. Cardiology is consulted for management of A. fib with RVR. He was on Cardizem 60 mg 3 times a day as well as metoprolol 50 mg twice a day however his blood pressure dropped to the 80s over 40s so his metoprolol, Cardizem, and lisinopril are currently on hold. Patient seen and examined resting in bed. Complains of pain in his legs. Per his he did feel shaky when he was walking to the bathroom. He has also been more short of breath. No chest pain. No syncope. EXAMINATION Patient is afebrile, pulse in the 100s, respirations 18, blood pressure 107/58, oxygen saturation 95% Patient seen and examined resting in bed, does not appear to be in any acute distress Lungs with few scattered rhonchi bilaterally Heart is irregular and tachycardic 3+ pitting edema bilaterally REVIEW OF LABS, ECG WBC C-13, hemoglobin 15.1, platelet 215, potassium 4.2, BUN 34, creatinine 0.94 Recent echocardiogram showed Moderate concentric LVH, EF 30-35% IMPRESSION / ASSESSMENT: Diabetic foot ulcer, MRSA, status post amputation of the left fourth and fifth toe, on vancomycin Atrial fibrillation with RVR, rate in the 1 teens, anticoagulated with Coumadin DVT/ PE, anticoagulated Diabetes Cardiomyopathy, etiology unknown, EF 30-35% PLAN: Stop Cardizem, hold lisinopril, start low-dose metoprolol 25 mg 3 times a day as blood pressure will tolerate for rate control Continue to monitor telemetry Continue to monitor blood pressure Check TSH Objective - Vital Signs Vital signs: Vital Signs Temp 97.6 F 08/27/19 15:00 Pulse 105 H 08/27/19 15:00 Resp 18 08/27/19 16:00 BP 107/58 08/27/19 15:00 Pulse Ox 95 08/27/19 15:00 Intake & Output 08/26/19 08/27/19 08/27/19 18:59 06:59 18:59 Intake Total 1580 Balance 1580 Intake: Intake, IV Titration 500 Amount Vancomycin 2,000 mg In 500 Sodium Chloride 0.9% 500 ml 500 ml @ 167 mls/hr IVPB Q12H [facility] Rx#: [id number] Oral 1080 Other: Voiding Method Urinal # Voids 2 2 4 # Bowel Movements 1 - Labs CBC & Chem 7: 08/27/19 06:46 08/27/19 06:46 Labs: Abnormal Lab Results - Last 24 Hours (Table) 08/26/19 08/27/19 08/27/19 Range/Units 20:32 06:46 06:46 WBC 13.0 H (3.8-10.6) k/uL Neutrophils # 11.1 H (1.3-7.7) k/uL PT 28.4 H (9.0-12.0) sec INR 2.9 H (<1.2) Sodium (137-145) mmol/L Chloride (98-107) mmol/L Carbon Dioxide (22-30) mmol/L BUN (9-20) mg/dL Glucose (74-99) mg/dL POC Glucose (mg/dL) 164 H (75-99) mg/dL Calcium (8.4-10.2) mg/dL 08/27/19 08/27/19 08/27/19 Range/Units 06:46 07:44 11:51 WBC (3.8-10.6) k/uL Neutrophils # (1.3-7.7) k/uL PT (9.0-12.0) sec INR (<1.2) Sodium 131 L (137-145) mmol/L Chloride 93 L (98-107) mmol/L Carbon Dioxide 31 H (22-30) mmol/L BUN 34 H (9-20) mg/dL Glucose 169 H (74-99) mg/dL POC Glucose (mg/dL) 135 H 337 H (75-99) mg/dL Calcium 8.1 L (8.4-10.2) mg/dL 08/27/19 Range/Units 17:07 WBC (3.8-10.6) k/uL Neutrophils # (1.3-7.7) k/uL PT (9.0-12.0) sec INR (<1.2) Sodium (137-145) mmol/L Chloride (98-107) mmol/L Carbon Dioxide (22-30) mmol/L BUN (9-20) mg/dL Glucose (74-99) mg/dL POC Glucose (mg/dL) 311 H (75-99) mg/dL Calcium (8.4-10.2) mg/dL
[2019-08-27 20:18] LABS: Glucose,Whole Blood 196 mg/dL (75-99)
[2019-08-27] MEDS: NORTRIPTYLINE 25 MG CAP PO SCH (21:41)
[2019-08-27] MEDS: ATORVASTATIN 80 MG TAB PO SCH (21:41)
[2019-08-27] MEDS: AMOXIC-POT CLAV 875-125MG 1 EACH TAB PO SCH (21:41)
[2019-08-27] MEDS: INSULIN DETEMIR (LEVEMIR) 100 UNIT/ML SYR SQ SCH (21:41)
[2019-08-27] MEDS: METOPROLOL TARTRATE 25 MG TAB PO SCH (21:43)
[2019-08-27] MEDS ORDERED: DILTIAZEM ORAL 30 MG TAB PO SCH (22:00)
[2019-08-27] MEDS ORDERED: METOPROLOL TARTRATE 25 MG TAB PO SCH (22:00)
[2019-08-28] MEDS: MORPHINE SULFATE ER 30 MG TABLET PO SCH ×4 (00:11→21:04)
[2019-08-28] MEDS ORDERED: SODIUM CHLORIDE 0.9% 500 ML 250 ML IV ONE (00:19)
[2019-08-28] MEDS: ACETAMINOPHEN TAB 325 MG TAB PO PRN ×2 (00:35→20:05)
[2019-08-28] MEDS: oxyCODONE-APAP 10-325MG 1 EACH TAB PO PRN (02:00)
[2019-08-28] MEDS ORDERED: METOPROLOL TARTRATE 25 MG TAB PO STA (02:51)
[2019-08-28 05:46] LABS: Glucose,Whole Blood 181 mg/dL (75-99)
[2019-08-28] MEDS: SYMBICORT 160-4.5 MCG INHALER INHALATION SCH ×2 (07:11→20:37)
[2019-08-28] MEDS: IPRATROPIUM 0.5 MG/2.5 ML NEBU INHALATION SCH ×4 (07:11→20:37)
[2019-08-28 07:47] LABS: Glucose,Whole Blood 180 mg/dL (75-99)
[2019-08-28 07:58] LABS: INR 3.2 (<1.2)
[2019-08-28] MEDS ORDERED: LISINOPRIL 10 MG TAB PO SCH (09:00)
[2019-08-28] MEDS: INSULIN ASPART (NovoLOG) 100 UNIT/ML VIAL SQ SCH ×8 (09:09→21:04)
[2019-08-28] MEDS: ASPIRIN 81 MG PO SCH (09:10)
[2019-08-28] MEDS: diphenhydrAMINE 25 MG CAP PO SCH (09:10)
[2019-08-28] MEDS: PREGABALIN 100 MG CAP PO SCH ×2 (09:10→22:03)
[2019-08-28] MEDS: MULTIVITAMINS, THERA 1 EACH TAB PO SCH (09:11)
[2019-08-28] MEDS: PANTOPRAZOLE 40 MG TABLET PO SCH (09:12)
[2019-08-28] MEDS: METOPROLOL TARTRATE 25 MG TAB PO SCH ×2 (09:12→22:04)
[2019-08-28] MEDS: AMOXIC-POT CLAV 875-125MG 1 EACH TAB PO SCH ×2 (09:13→22:04)
[2019-08-28] MEDS: METOLAZONE 5 MG TAB PO SCH (09:13)
[2019-08-28] MEDS: TOPIRAMATE 25 MG TAB PO SCH ×2 (09:13→22:25)
[2019-08-28] MEDS: FUROSEMIDE 10 MG/ML 4 ML VIAL IV SCH (09:14)
[2019-08-28] MEDS: FLUTICASONE 50MCG/SPRAY NASAL 16GM EA NOSTRIL SCH (09:15)
[2019-08-28 11:33] LABS: Basophils % (A) 0 %; Eosinophils # (A) 0.1 k/uL (0-0.7); Eosinophils % (A) 1 %; HCT 42.8 % (39.0-53.0); HGB 13.7 gm/dL (13.0-17.5); Lymphocytes # (A) 0.9 k/uL (1.0-4.8); Lymphocytes % (A) 8 %; MCH 30.7 pg (25.0-35.0); MCHC 32.1 g/dL (31.0-37.0); MCV 95.6 fL (80.0-100.0); Mean Platelet Volume 9.4; Monocytes # (A) 0.6 k/uL (0-1.0); Monocytes % (A) 5 %; Neutrophils # (A) 10.4 k/uL (1.3-7.7); Neutrophils % (A) 85 %; Platelet Count 198 k/uL (150-450); RBC 4.48 m/uL (4.30-5.90); WBC 12.2 k/uL (3.8-10.6)
[2019-08-28 11:37] LABS: Calcium 7.6 mg/dL (8.4-10.2)
[2019-08-28 12:05] LABS: Glucose,Whole Blood 314 mg/dL (75-99)
--- NOTE | 2019-08-28 12:12 | XR ---
EXAMINATION TYPE: XR chest 2V DATE OF EXAM: 08/28/2019 COMPARISON: 08/16/2019 HISTORY: 64 year-old male shortness of breath TECHNIQUE: AP and lateral views FINDINGS: Heart borderline enlarged. Diffuse interstitial and patchy bibasilar opacities. Trace effusion sugges michael. Mild hyperinflation. IMPRESSION: Correlate for CHF with pulmonary vascular congestion. More patchy bibasilar areas of developing edema or infiltrate. Trace effusions.
[2019-08-28] MEDS: VANCOMYCIN 2,000 MG in SODIUM CHLORIDE 0.9% 500 ML 500 ML IVPB SCH (13:37)
[2019-08-28] MEDS: FLUCONAZOLE 100 MG TAB PO SCH (15:33)
--- NOTE | 2019-08-28 15:54 | P.PN ---
Subjective Progress Note Date: 08/28/19 Principal diagnosis: Principal diagnosis: Diabetic foot ulcer, possible osteomyelitis involving the left foot Persistent atrial fibrillation with poorly controlled ventricular rate Acute mental status change likely secondary to toxic metabolic encephalopathy related to infection 62-year-old white male with history of COPD, deep vein thrombosis/pulmonary embolism, diabetes/ neuropathy, degenerative joint disease, patient had previous history of bilateral deep vein thromboses and pulmonary embolism, chronically on anticoagulations therapy/Coumadin. Patient has been followed recently at the wound care center by Dr. Naranjo for chronic left foot plantar ulcer, and yesterday the patient was noticing foul-smelling discharge coming from the left foot ulcer. He was told by his primary care physician that he may have a foreign body in the foot. Hence the patient came into the ER. While in the ER, patient had shortness of breath and weakness, he was noted to be in atrial fibrillation and RVR. Patient was admitted, placed on Cardizem drip, cardiology consult was initiated, patient was placed on heparin, 08/17/2019 Patient remains in the ICU; patient remains in atrial fibrillation with RVR with heart rate in 1 teens to 130s, cardiology is on the case; patient is started on oral Cardizem, and increased his Lopressor to 50 mg by mouth twice a day. Patient is hemodynamically stable. Patient was evaluated by vascular surgery for his foot ulcer, and the recommendation was to have Dr. Naranjo see him; Dr. Naranjo is consulted and recommendations are pending. In the meantime the patient is receiving antibiotics as per infectious disease on the case and changed IV antibiotic therapy to vancomycin and Unasyn; Zosyn has been discontinued. Patient is complaining that his home medications have not been started, which I ordered His CBC is relatively normal INR is 2.5 electrolytes are normal renal profile is normal; patient has been cleared for transfer to [facility], and I have consulted Dr. Naranjo three-phase bone scan is pending 08/18/2019 Patient is evaluated in selective care unit; patient and family quite upset since patient was not seen by Dr. Naranjo is patient's primary soil specialist Patient's vital signs remained stable in form of a blood pressure 133/94, SpO2 of 95% on room air; lab review shows an INR of 2.7, potassium 5.2, BUN 30 and creatinine of 1.03; not count is slightly elevated at 11.7; patient's heart rate does fluctuate between 70-80 upto 130; cardiology recommending to continue with Cardizem at an increased dose of 60 mg 3 times a day along with Lopressor 50 mg daily Patient was evaluated by infection disease and underwent wound cleaning; recomm endations are to continue current antibiotic therapy; 08/19/2019 Patient is seen in follow-up stating that he would like to go home. Cardiology and infectious disease following the patient. Patient currently remains on IV antibiotics in the form of Unasyn and vancomycin. Preliminary cultures of the left leg wound showing gram-positive cocci with MRSA. Currently patient denies any chest pain, shortness of breath, or palpitations. Patient is afebrile. Patient denying any nausea or vomiting and is tolerating diet. INR today is 1.9 and will continue with Coumadin. Will repeat a.m. labs. Patient is presently rate controlled with Cardizem and metoprolol and will continue at this time. Will continue to monitor closely. 08/20/2019 Patient seen in follow-up today awaiting a consult with Dr. Mcintyre for possible amputation of the left foot fourth and fifth toe along with wound debridement of the plantar aspect of the left foot and is being closely monitored. Patient was seen by Dr. Naranjo recommending surgical consult with Dr. Mcintyre. Patient is scheduled for surgery this afternoon. Infectious disease is following as well. Patient did receive a PICC line and is currently on IV antibiotics in the form of Unasyn and vancomycin and will continue at this time. Case management and social work following for possible ECF to continue with IV antibiotic therapy once stabilized. Patient is currently on anticoagulation with Coumadin and PT/INR this morning was 1.7 and will repeat a.m. labs. No reports of chest pain or palpitations. Patient is afebrile. 08/21/2019 Patient is seen and evaluated in follow-up today and underwent amputation of the left foot fourth and fifth toe at the metatarsophalangeal joint along with debridement of the wound at the plantar aspect of the left foot with Dr. Mcintyre and is being closely monitored. Patient remains on IV antibiotics in the form of Unasyn and vancomycin and will continue at this time. Infectious disease is following. PT/INR today is 1.9 currently remains on Coumadin. Patient awaiting PT/OT eval as he proceeded to get up on his own today and walked to the bathroom with full weightbearing on his left foot causing some bleeding. Discussed with the patient at length about nonweightbearing of that left foot and using the heel only. Blood sugars remain elevated and is being covered with sliding scale along with long-acting. Nursing staff mentioned that family continues to bring in regular soda and sugared foods. Discussed with the patient and daughter at the bedside about refraining from increased sugar as he needs to have tight control of his blood sugars to optimize healing. Will continue to monitor kameron posadas. 08/22/2019 This is a 64-year-old male who was recently undergone amputation of the fourth and fifth toe along with wound debridement of the left foot and is being closely monitored. Dr. Mcintyre is following. Patient continues to walk to the bathroom and has been weightbearing on the left foot and the dressing has needed frequent changing. Patient is being maintained on IV antibiotics and will continue at this time. Patient continues to state he would really like to go home and is agreeable to home care but is adamant against any type of rehab. Blood sugars remain elevated and steroids are being discontinued. Will continue to monitor closely. 08/23/2019 Patient Is seen in follow-up today having recently undergone amputation of the fourth and fifth toe along with wound debridement of the left foot and is being closely monitored. Patient is continued on IV vancomycin along with oral Flagyl and will continue at this time. Dr. Mcintyre was in to evaluate the patient today along with the dressing change as patient continues to have drainage and moisture surrounding the sutures of the surgical site. Discussed with the patient at length about continuing with nonweightbearing as he continues to walk on that foot. PT/OT is following. INR is therapeutic at 2.9 today. Patient remains on Coumadin for anticoagulation. Blood sugars continue to be elevated and will continue to monitor closely. Patient remains on long-acting along with sliding scale. Steroids have been discontinued. 08/26/2019 Patient is seen and evaluated in follow-up today and continues to have signi ficant edema noted to the left lower extremity. Nursing staff stated there was some bleeding noted from the incision site and awaiting Dr. Mcintyre to evaluate. Patient is having some hypotension along with dizziness, lightheadedness and multiple adjustments to medications have been made. Will continue to monitor closely. Appreciate cardiology input. Will continue to monitor vital signs closely. 08/27/2019 Patient is seen in follow-up today and continues to have some hypotension and is being closely monitored. Blood pressure medications were held this morning as his blood pressure continues to be 100 systolic. Awaiting cardiology reconsult for possible medication adjustments. Patient is maintained on IV antibiotics in the form of vancomycin and will continue at this time. Patient continues to have some dizziness and lightheadedness when standing. Patient also continues to have severe lower extremity swelling and is maintained on IV Lasix and will continue at this time. Once discharged patient will be transitioned oral Lasix. Will continue to monitor vital signs closely. No reports of chest pain, shortness of breath, or palpitations. Patient is afebrile. No reports of nausea or vomiting and patient is tolerating diet. 08/28/2019 Patient continues to be hypotensive and is being closely monitored. Multiple medications have been adjusted including discontinuing the Cardizem and adjusting the metoprolol. IV Lasix has been discontinued. Patient continues to have a cough with some greenish brown mucus production and a chest x-ray was done showing CHF with pulmonary vascular congestion with a trace effusions. Incentive spirometry was ordered and patient instructed to use at least 10 times every hour while awake. Patient is supratherapeutic on INR at 3.2 and Coumadin is being held tonight. BNP was done showing 4070. Patient's sodium is also low at 129 with a creatinine of 1.17. Objective - Vital Signs Vital signs: Vital Signs Temp 98.2 F 08/28/19 15:00 Pulse 89 08/28/19 15:00 Resp 18 08/28/19 15:39 BP 85/61 08/28/19 15:00 Pulse Ox 99 08/28/19 15:00 Intake & Output 08/27/19 08/28/19 08/28/19 18:59 06:59 18:59 Intake Total 1580 240 500 Balance 1580 240 500 Intake: Intake, IV Titration 500 500 Amount Vancomycin 2,000 mg In 500 500 Sodium Chloride 0.9% 500 ml 500 ml @ 167 mls/hr IVPB Q12H [facility] Rx#: [id number] Oral 1080 240 Other: Voiding Method Urinal # Voids 4 2 1 # Bowel Movements 1 - Exam General: This is a 64-year-old male sitting up in the chair, awake, alert and oriented 3, well-developed, well-nourished. Head: Atraumatic normocephalic. HEENT:[Neck is supple.] [No neck masses.] [No thyromegaly.] [No JVD.] PERRLA, EOMI, no icterus. Chest: Diminished breath sounds at the bases with no crackles or wheezing noted. Cardiac Exam: S1, S2 are muffled Abdomen: [Soft, obese, nontender, no megaly, no rebound, no guarding, normal bowel sounds.] Extremities: Evidence of significant bilateral lower extremity edema. Surgical dressing noted of the left lower extremity and foot. Left lower extremity is elevated up on the chair Neurological Exam: Alert and oriented 3. Parkinsonian tremor noted of the upper extremities - Labs CBC & Chem 7: 08/28/19 07:19 08/28/19 07:19 Labs: Abnormal Lab Results - Last 24 Hours (Table) 08/27/19 08/27/19 08/28/19 Range/Units 17:07 20:15 05:43 WBC (3.8-10.6) k/uL Neutrophils # (1.3-7.7) k/uL Lymphocytes # (1.0-4.8) k/uL PT (9.0-12.0) sec INR (<1.2) Sodium (137-145) mmol/L Chloride (98-107) mmol/L Carbon Dioxide (22-30) mmol/L BUN (9-20) mg/dL Glucose (74-99) mg/dL POC Glucose (mg/dL) 311 H 196 H 181 H (75-99) mg/dL Calcium (8.4-10.2) mg/dL 08/28/19 08/28/19 08/28/19 Range/Units 07:18 07:19 07:19 WBC 12.2 H (3.8-10.6) k/uL Neutrophils # 10.4 H (1.3-7.7) k/uL Lymphocytes # 0.9 L (1.0-4.8) k/uL PT 31.0 H (9.0-12.0) sec INR 3.2 H (<1.2) Sodium 129 L (137-145) mmol/L Chloride 92 L (98-107) mmol/L Carbon Dioxide 33 H (22-30) mmol/L BUN 37 H (9-20) mg/dL Glucose 182 H (74-99) mg/dL POC Glucose (mg/dL) (75-99) mg/dL Calcium 7.6 L (8.4-10.2) mg/dL 08/28/19 08/28/19 Range/Units 07:43 12:03 WBC (3.8-10.6) k/uL Neutrophils # (1.3-7.7) k/uL Lymphocytes # (1.0-4.8) k/uL PT (9.0-12.0) sec INR (<1.2) Sodium (137-145) mmol/L Chloride (98-107) mmol/L Carbon Dioxide (22-30) mmol/L BUN (9-20) mg/dL Glucose (74-99) mg/dL POC Glucose (mg/dL) 180 H 314 H (75-99) mg/dL Calcium (8.4-10.2) mg/dL Assessment and Plan Assessment: Diabetic foot ulcer with gangrenous necrosis acute inflammation and abscess with underlying bone with minimal acute osteomyelitis and chronic reactive/degenerative changes with MRSA and anaerobic gram-positive cocci types 2 grown from the culture with possible sepsis, present on admission 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 at the metatars ophalangeal joint and debridement of the wound at the plantar aspect of the left foot with removal of devitalized tissue 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; patient has history of [place] filter placement; patient remains on anticoagulation therapy Bilateral leg edema Persistent atrial fibrillation with poorly controlled ventricular rate most likely secondary to chronic thromboembolic disease/pulmonary embolism Type 2 diabetes Generalized anxiety disorder Coumadin monitoring Hyponatremia Mild hypokalemia Gait dysfunction History of noncompliance Obesity with a body mass index of 39.2 COPD; not in exacerbation CODE STATUS; full code Recommendations and discussion: Recommend to continue current medications, management, and symptomatic treatment. Multiple medical consultations are following. Continue with IV antibiotics in the form of vancomycin as well as oral Augmentin. Infectious disease is following. Patient continues to have episodes of hypotension and cardiology was consulted. IV diuretics have been discontinued. BNP today is 4070. Incentive spirometer ordered. Will continue to monitor closely. Due to multiple complex medical issues, prognosis is guarded. Further recommendations to follow. Possible discharge in 24-48 hours.
[2019-08-28 17:15] LABS: Glucose,Whole Blood 216 mg/dL (75-99)
[2019-08-28] MEDS ORDERED: WARFARIN 0.5 MG TAB PO ONE (18:00)
--- NOTE | 2019-08-28 18:22 | PN ---
PROGRESS NOTE DATE OF SERVICE: 08/28/2019 REASON FOR FOLLOWUP: Left diabetic foot infection with osteomyelitis. INTERVAL HISTORY: The patient is currently afebrile, has been breathing comfortably. Still having a problem with marginal blood pressure. The patient denies having any chest pain. No abdominal pain or any worsening pain to the left foot area. PHYSICAL EXAMINATION: Blood pressure is 85/61 with a pulse of 89, temperature 98.2. He is 99% on 2 L nasal cannula. General description is a middle-aged male up in the chair in no distress. Respiratory system: Unlabored breathing. Clear to auscultation anteriorly. Heart S1, S2. Regular rate and rhythm. Abdomen soft, no tenderness. Left foot overall inflammation has decreased with some swelling but no redness or foul smelling. LAB: Hemoglobin is 13.7, white count 10.2, BUN of 37, creatinine is 1.17. DIAGNOSTIC IMPRESSION AND PLAN: Patient with left diabetic foot infection in this patient who is status post left 4th and 5th toe amputation. Cultures were positive for MRSA anaerobic gram-positive. Patient is covered with vancomycin and oral Augmentin. White count is down to 12,000. The patient is to continue with current antibiotics for at least 2 weeks in the outpatient setting. Monitor clinical course closely. Continue supportive care. MMODL / IJN: [id number] /
[2019-08-28 20:25] LABS: Glucose,Whole Blood 285 mg/dL (75-99)
[2019-08-28] MEDS ORDERED: SODIUM CHLORIDE 0.9% 1,000 ML IV SCH (20:30)
[2019-08-28] MEDS: INSULIN DETEMIR (LEVEMIR) 100 UNIT/ML SYR SQ SCH (21:01)
[2019-08-28] MEDS: ATORVASTATIN 80 MG TAB PO SCH (22:03)
[2019-08-28] MEDS: NORTRIPTYLINE 25 MG CAP PO SCH (22:04)
[2019-08-29] MEDS: VANCOMYCIN 2,000 MG in SODIUM CHLORIDE 0.9% 500 ML 500 ML IVPB SCH ×2 (03:20→21:06)
[2019-08-29 07:08] LABS: Glucose,Whole Blood 157 mg/dL (75-99)
[2019-08-29] MEDS: SYMBICORT 160-4.5 MCG INHALER INHALATION SCH ×2 (07:11→21:37)
[2019-08-29] MEDS: IPRATROPIUM 0.5 MG/2.5 ML NEBU INHALATION SCH ×4 (07:11→21:37)
[2019-08-29 07:21] LABS: Basophils % (A) 0 %; Eosinophils # (A) 0.1 k/uL (0-0.7); Eosinophils % (A) 1 %; HCT 44.9 % (39.0-53.0); HGB 14.2 gm/dL (13.0-17.5); Lymphocytes # (A) 1.3 k/uL (1.0-4.8); Lymphocytes % (A) 13 %; MCH 30.5 pg (25.0-35.0); MCHC 31.5 g/dL (31.0-37.0); MCV 96.6 fL (80.0-100.0); Mean Platelet Volume 8.6; Monocytes # (A) 0.7 k/uL (0-1.0); Monocytes % (A) 7 %; Neutrophils # (A) 7.7 k/uL (1.3-7.7); Neutrophils % (A) 76 %; Platelet Count 156 k/uL (150-450); RBC 4.65 m/uL (4.30-5.90); RDW 14.9 % (11.5-15.5); WBC 10.1 k/uL (3.8-10.6)
[2019-08-29] MEDS: INSULIN ASPART (NovoLOG) 100 UNIT/ML VIAL SQ SCH ×8 (07:27→21:02)
[2019-08-29] MEDS: MORPHINE SULFATE ER 30 MG TABLET PO SCH ×2 (07:28→15:44)
[2019-08-29] MEDS: PANTOPRAZOLE 40 MG TABLET PO SCH (07:28)
[2019-08-29] MEDS: ASPIRIN 81 MG PO SCH (07:28)
[2019-08-29] MEDS: MULTIVITAMINS, THERA 1 EACH TAB PO SCH (07:28)
[2019-08-29] MEDS: PREGABALIN 100 MG CAP PO SCH ×2 (07:29→21:01)
[2019-08-29] MEDS: METOPROLOL TARTRATE 25 MG TAB PO SCH ×2 (07:29→21:00)
[2019-08-29] MEDS: AMOXIC-POT CLAV 875-125MG 1 EACH TAB PO SCH ×2 (07:29→21:01)
[2019-08-29] MEDS: TOPIRAMATE 25 MG TAB PO SCH ×2 (07:30→21:00)
[2019-08-29] MEDS: FLUCONAZOLE 100 MG TAB PO SCH (07:30)
[2019-08-29] MEDS: diphenhydrAMINE 25 MG CAP PO SCH (07:30)
[2019-08-29] MEDS: FLUTICASONE 50MCG/SPRAY NASAL 16GM EA NOSTRIL SCH (07:32)
[2019-08-29 07:35] LABS: Calcium 7.8 mg/dL (8.4-10.2)
[2019-08-29 07:37] LABS: INR 2.6 (<1.2); Prothrombin Time 25.6 sec (9.0-12.0)
--- NOTE | 2019-08-29 09:21 | XR ---
EXAMINATION TYPE: XR chest 2V DATE OF EXAM: 08/29/2019 COMPARISON: 08/28/2019 HISTORY: 64 year-old male shortness of breath TECHNIQUE: AP and lateral views FINDINGS: Heart mildly enlarged. Left PICC tip at the caval atrial junction. Diffuse interstitial densities and trace effusions with patchy bibasilar opacities. IMPRESSION: Correlate for CHF with early interstitial pulmonary edema. Trace effusions with adjacent atelectasis and/or consolidation. Slightly worsened from prior.
[2019-08-29] MEDS ORDERED: FUROSEMIDE 10 MG/ML 4 ML VIAL IV SCH (11:30)
--- NOTE | 2019-08-29 11:51 | P.PN ---
Subjective Patient was seen and examined sitting up in the chair with family at the bedside. He states overall he is feeling increased fatigue. He denies sig nificant shortness of breath. No chest pain, dizziness or palpitations. Blood pressure 82/45 heart rate 98. Currently maintained on lopressor 25 mg TID, Coumadin and lasix 40 mg IV BID. He has converted spontaneously to sinus mechanism. GENERAL: Well-appearing, well-nourished and in no acute distress. NECK: Supple without JVD or thyromegaly. LUNGS: Breath sounds clear to auscultation bilaterally. Respiration equal and unlabored. No wheezes, rales or rhonchi. HEART: Regular rate and rhythm without murmurs, rubs or gallops. S1 and S2 heard. EXTREMITIES: Normal range of motion, no edema. No clubbing or cyanosis. Peripheral pulses intact. ASSESSMENT Paroxysmal atrial fibrillation on long-term intake relation with Coumadin, converted spontaneously to sinus mechanism. Cardiomyopathy, etiology unknown, EF 30-35% Diabetic foot ulcer with gangrenous necrosis status post toe amputation History of DVT and PE maintained on Coumadin Diabetes mellitus COPD Hypertension Dyslipidemia PLAN Repeat EKG. Decreased Lopressor to twice a day. Discontinue IV Lasix, clinically he is euvolemic. He does have significant lower extremity edema related to chronic peripheral edema. Nurse Practitioner note has been reviewed, I agree with a documented findings and plan of care. Patient was seen and examined. Objective - Vital Signs Vital signs: Vital Signs Temp 98.9 F 08/28/19 07:39 Pulse 98 08/28/19 07:39 Resp 18 08/28/19 07:39 BP 82/45 08/28/19 12:18 Pulse Ox 95 08/28/19 07:39 Intake & Output 08/27/19 08/28/19 08/28/19 18:59 06:59 18:59 Intake Total 1580 240 Balance 1580 240 Intake: Intake, IV Titration 500 Amount Vancomycin 2,000 mg In 500 Sodium Chloride 0.9% 500 ml 500 ml @ 167 mls/hr IVPB Q12H [facility] Rx#: [id number] Oral 1080 240 Other: Voiding Method Urinal # Voids 4 2 - Labs CBC & Chem 7: 08/29/19 07:02 08/29/19 07:02 Labs: Abnormal Lab Results - Last 24 Hours (Table) 08/27/19 08/27/19 08/28/19 Range/Units 17:07 20:15 05:43 WBC (3.8-10.6) k/uL Neutrophils # (1.3-7.7) k/uL Lymphocytes # (1.0-4.8) k/uL PT (9.0-12.0) sec INR (<1.2) Sodium (137-145) mmol/L Chloride (98-107) mmol/L Carbon Dioxide (22-30) mmol/L BUN (9-20) mg/dL Glucose (74-99) mg/dL POC Glucose (mg/dL) 311 H 196 H 181 H (75-99) mg/dL Calcium (8.4-10.2) mg/dL 08/28/19 08/28/19 08/28/19 Range/Units 07:18 07:19 07:19 WBC 12.2 H (3.8-10.6) k/uL Neutrophils # 10.4 H (1.3-7.7) k/uL Lymphocytes # 0.9 L (1.0-4.8) k/uL PT 31.0 H (9.0-12.0) sec INR 3.2 H (<1.2) Sodium 129 L (137-145) mmol/L Chloride 92 L (98-107) mmol/L Carbon Dioxide 33 H (22-30) mmol/L BUN 37 H (9-20) mg/dL Glucose 182 H (74-99) mg/dL POC Glucose (mg/dL) (75-99) mg/dL Calcium 7.6 L (8.4-10.2) mg/dL 08/28/19 08/28/19 Range/Units 07:43 12:03 WBC (3.8-10.6) k/uL Neutrophils # (1.3-7.7) k/uL Lymphocytes # (1.0-4.8) k/uL PT (9.0-12.0) sec INR (<1.2) Sodium (137-145) mmol/L Chloride (98-107) mmol/L Carbon Dioxide (22-30) mmol/L BUN (9-20) mg/dL Glucose (74-99) mg/dL POC Glucose (mg/dL) 180 H 314 H (75-99) mg/dL Calcium (8.4-10.2) mg/dL
--- NOTE | 2019-08-29 11:55 | P.PN ---
Subjective Patient was seen and examined sitting up in the chair with family at the bedside. He states overall he is feeling increased fatigue. He denies sig nificant shortness of breath. No chest pain, dizziness or palpitations. Blood pressure 82/45 heart rate 98. Currently maintained on lopressor 25 mg TID, Coumadin and lasix 40 mg IV BID. He has converted spontaneously to sinus mechanism. 08/29/2019 Patient was seen and examined sitting up in the wheelchair. He is in no acute distress. He denies any worsening shortness of breath. He has no chest pain, dizziness or palpitations. Blood pressure 102/68 heart rate 76 afebrile maintaining oxygen saturation on nasal cannula. Laboratory data reviewed, CBC unremarkable, INR 2.6, sodium 134, potassium 4.0, creatinine 1.18. Currently maintained on aspirin 81 mg daily, atorvastatin 80 mg daily, Lopressor 25 mg twice a day and Lasix 20 mg IV twice a day per primary care team. Repeat chest x-ray this morning reveals interstitial pulmonary edema with trace effusions. Repeat EKG reveals sinus mechanism with frequent PACs. GENERAL: Well-appearing, well-nourished and in no acute distress. NECK: Supple without JVD or thyromegaly. LUNGS: Breath sounds clear to auscultation bilaterally. Respiration equal and unlabored. No wheezes, rales or rhonchi. Diminished bilaterally. HEART: Regular rate and rhythm without murmurs, rubs or gallops. S1 and S2 heard. EXTREMITIES: Normal range of motion, bilateral lower extremity edema and erythema. No clubbing or cyanosis. Peripheral pulses intact. ASSESSMENT Paroxysmal atrial fibrillation on long-term intake relation with Coumadin, converted spontaneously to sinus mechanism. Cardiomyopathy, etiology unknown, EF 30-35% Diabetic foot ulcer with gangrenous necrosis status post toe amputation History of DVT and PE maintained on Coumadin Diabetes mellitus COPD Hypertension Dyslipidemia PLAN Continue current medical regimen. Given his cardiomyopathy he should be on an JEVON inhibitor however his blood pressure currently will not tolerate. This can be adjusted as an outpatient when he sees Dr. Heaton in the office. He will require further work-up regarding cause for cardiomyopathy as an outpatient. Clinically he is not short of breath and his lungs are clear on exam. Diuretic management per primary care team. Nurse Practitioner note has been reviewed, I agree with a documented findings and plan of care. Patient was seen and examined. Objective - Vital Signs Vital signs: Vital Signs Temp 97.6 F 08/29/19 07:30 Pulse 75 08/29/19 07:33 Resp 16 08/29/19 07:30 BP 102/68 08/29/19 07:30 Pulse Ox 92 L 08/29/19 07:30 Intake & Output 08/28/19 08/29/19 08/29/19 18:59 06:59 18:59 Intake Total 500 1325 Balance 500 1325 Intake: Intake, IV Titration 500 1325 Amount Sodium Chloride 0.9% 1, 825 000 ml @ 75 mls/hr IV . [id number] [facility] Rx#:[id number] Vancomycin 2,000 mg In 500 Sodium Chloride 0.9% 500 ml 500 ml @ 167 mls/hr IVPB Q12H [facility] Rx#: [id number] Vancomycin 2,000 mg In 500 Sodium Chloride 0.9% 500 ml 500 ml @ 167 mls/hr IVPB Q16H [facility] Rx#: [id number] Other: Voiding Method Urinal # Voids 1 # Bowel Movements 1 - Labs CBC & Chem 7: 08/29/19 07:02 08/29/19 07:02 Labs: Abnormal Lab Results - Last 24 Hours (Table) 08/28/19 08/28/19 08/28/19 Range/Units 12:03 17:10 20:22 PT (9.0-12.0) sec INR (<1.2) Sodium (137-145) mmol/L Chloride (98-107) mmol/L Carbon Dioxide (22-30) mmol/L BUN (9-20) mg/dL Glucose (74-99) mg/dL POC Glucose (mg/dL) 314 H 216 H 285 H (75-99) mg/dL Calcium (8.4-10.2) mg/dL 08/29/19 08/29/19 08/29/19 Range/Units 07:02 07:02 07:04 PT 25.6 H (9.0-12.0) sec INR 2.6 H (<1.2) Sodium 134 L (137-145) mmol/L Chloride 93 L (98-107) mmol/L Carbon Dioxide 34 H (22-30) mmol/L BUN 35 H (9-20) mg/dL Glucose 165 H (74-99) mg/dL POC Glucose (mg/dL) 157 H (75-99) mg/dL Calcium 7.8 L (8.4-10.2) mg/dL
[2019-08-29 12:04] LABS: Glucose,Whole Blood 186 mg/dL (75-99)
--- NOTE | 2019-08-29 14:45 | P.PN ---
Subjective Patient is admitted for gangrene and diabetic foot ulcer with osteomyelitis patient is status post amputation. Patient was also treated for heart failure exacerbation although patient was hypotensive hyponatremic with worsening renal function because of which has stopped the diuretics as today patient is IV fluids patient oxygen requirements have gone up patient chest x-rays showing pulmonary edema IV fluids will be discontinued and patient will be given us low- dose of Lasix , patient will not be can you done JEVON inhibitor as his blood pressure cannot tolerate at this time. This can be optimized as an outpatient 1 he owns his most stabilized. Patient is requiring 3 L of oxygen as opposed to no oxygen yesterday. Patient also denied any shortness of breath at this time Constitutional: Denied any fatigue denied any fever. Cardio vascular: denied any chest pain, palpitations Gastrointestinal denied any nausea vomiting Pulmonary: Denied any shortness of breath cough Neurologic denied any new focal deficits All inpatient medications were reviewed and appropriate changes in these medications as dictated in the interval history and assessment and plan. Objective - Vital Signs Vital signs: Vital Signs Temp 97.6 F 08/29/19 07:30 Pulse 75 08/29/19 07:33 Resp 16 08/29/19 07:30 BP 102/68 08/29/19 07:30 Pulse Ox 92 L 08/29/19 07:30 Intake & Output 08/28/19 08/29/19 08/29/19 18:59 06:59 18:59 Intake Total 500 1325 240 Balance 500 1325 240 Intake: Intake, IV Titration 500 1325 Amount Sodium Chloride 0.9% 1, 825 000 ml @ 75 mls/hr IV . [id number] [facility] Rx#:[id number] Vancomycin 2,000 mg In 500 Sodium Chloride 0.9% 500 ml 500 ml @ 167 mls/hr IVPB Q12H [facility] Rx#: [id number] Vancomycin 2,000 mg In 500 Sodium Chloride 0.9% 500 ml 500 ml @ 167 mls/hr IVPB Q16H [facility] Rx#: [id number] Oral 240 Other: Voiding Method Urinal # Voids 1 3 # Bowel Movements 1 - Exam PHYSICAL EXAMINATION: GENERAL: The patient is alert and oriented x3, not in any acute distress. Well developed, well nourished. HEENT: Pupils are round and equally reacting to light. EOMI. No scleral icterus. No conjunctival pallor. Normocephalic, atraumatic. No pharyngeal erythema. No thyromegaly. CARDIOVASCULAR: S1 and S2 present. No murmurs, rubs, or gallops. PULMONARY: Chest is clear to auscultation, no wheezing or crackles. ABDOMEN: Soft, nontender, nondistended, normoactive bowel sounds. No palpable organomegaly. MUSCULOSKELETAL: No joint swelling or deformity. EXTREMITIES: No cyanosis, clubbing, extensive bilateral pedal edema and patient is status post amputation of the gangrene toes fourth and fifth on the left side NEUROLOGICAL: Gross neurological examination did not reveal any focal deficits. SKIN: No rashes. - Labs CBC & Chem 7: 08/29/19 07:02 08/29/19 07:02 Labs: Abnormal Lab Results - Last 24 Hours (Table) 08/28/19 08/28/19 08/29/19 Range/Units 17:10 20:22 07:02 PT 25.6 H (9.0-12.0) sec INR 2.6 H (<1.2) Sodium (137-145) mmol/L Chloride (98-107) mmol/L Carbon Dioxide (22-30) mmol/L BUN (9-20) mg/dL Glucose (74-99) mg/dL POC Glucose (mg/dL) 216 H 285 H (75-99) mg/dL Calcium (8.4-10.2) mg/dL 08/29/19 08/29/19 08/29/19 Range/Units 07:02 07:04 12:01 PT (9.0-12.0) sec INR (<1.2) Sodium 134 L (137-145) mmol/L Chloride 93 L (98-107) mmol/L Carbon Dioxide 34 H (22-30) mmol/L BUN 35 H (9-20) mg/dL Glucose 165 H (74-99) mg/dL POC Glucose (mg/dL) 157 H 186 H (75-99) mg/dL Calcium 7.8 L (8.4-10.2) mg/dL Assessment and Plan Plan: Assessment and Plan Assessment: Diabetic foot ulcer with gangrenous necrosis acute inflammation and abscess with underlying bone with minimal acute osteomyelitis and chronic reactive/degenerative changes with MRSA and anaerobic gram-positive cocci types 2 grown from the culture with possible sepsis, present on admission 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 at the metatarsophalangeal joint and debridement of the wound at the plantar aspect of the left foot with removal of devitalized tissue 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; patient has history of [place] filter placement; patient remains on anticoagulation therapy Bilateral leg edema His heart failure chronic systolic dysfunction with mild acute exacerbation IV fluids will be discontinued and patient will be resumed on slow gentle diuresis as mentioned above -Acute hypoxic respiratory failure: Secondary to CHF exacerbation Persistent atrial fibrillation with poorly controlled ventricular rate most likely secondary to chronic thromboembolic disease/pulmonary embolism Type 2 diabetes Generalized anxiety disorder Coumadin monitoring Hyponatremia Mild hypokalemia Gait dysfunction History of noncompliance Obesity with a body mass index of 39.2 COPD; not in exacerbation CODE STATUS; full code
[2019-08-29] MEDS: BENZOCAINE/MENTHOL LOZENG 1 EACH LOZENGE MUCOUS MEM PRN (15:44)
[2019-08-29 17:14] LABS: Glucose,Whole Blood 200 mg/dL (75-99)
[2019-08-29] MEDS ORDERED: WARFARIN 3 MG TAB PO ONE (18:00)
[2019-08-29] MEDS ORDERED: VANCOMYCIN TROUGH DUE 1 EACH MISC MISCELLANE ONE (19:00)
[2019-08-29 20:26] LABS: Glucose,Whole Blood 225 mg/dL (75-99)
[2019-08-29] MEDS: ATORVASTATIN 80 MG TAB PO SCH (21:00)
[2019-08-29] MEDS: FUROSEMIDE 10 MG/ML 2 ML VIAL IV SCH (21:01)
[2019-08-29] MEDS: NORTRIPTYLINE 25 MG CAP PO SCH (21:01)
[2019-08-29] MEDS: INSULIN DETEMIR (LEVEMIR) 100 UNIT/ML SYR SQ SCH (21:01)
--- NOTE | 2019-08-29 23:42 | PN ---
PROGRESS NOTE DATE OF SERVICE: 08/29/2019 REASON FOR FOLLOWUP: Left diabetic foot infection with acute osteomyelitis, underlying diabetes mellitus. INTERVAL HISTORY: The patient is currently afebrile, has been complaining of shortness of breath. The patient denies having any chest pain. He did have a cough but not bringing up any sputum. No nausea, no vomiting. No abdominal pain or any worsening pain to the left foot area. PHYSICAL EXAMINATION: Blood pressure is 96/66, pulse of 73, temperature 98. He is 100% on 3 L nasal cannula. General description is a middle-aged male up in the chair in no distress. RESPIRATORY SYSTEM: Unlabored breathing with decreased breath sounds at the base. No wheeze. HEART: S1, S2. Regular rate and rhythm. ABDOMEN: Soft. No tenderness. Left foot is currently dressed up. No obvious drainage on the dressing. LABS: Hemoglobin is 14.8, white count 10.1. BUN of 35, creatinine is 1.18. Vancomycin trough is elevated at 20. DIAGNOSTIC IMPRESSION AND PLAN: Patient with left diabetic foot infection in this patient who did have osteomyelitis, status post amputation of the fourth and the fifth toe. Blood cultures were negative. Patient to continue vancomycin; dose to be cut back to keep the trough around 15 along with oral Augmentin and monitor his clinical course closely. MMODL / IJN: [id number] /
[2019-08-30] MEDS: MORPHINE SULFATE ER 30 MG TABLET PO SCH ×3 (00:11→17:06)
[2019-08-30] MEDS: BENZOCAINE/MENTHOL LOZENG 1 EACH LOZENGE MUCOUS MEM PRN (00:15)
[2019-08-30 05:06] LABS: Glucose,Whole Blood 88 mg/dL (75-99)
[2019-08-30] MEDS ORDERED: DILTIAZEM DRIP BOLUS FROM BAG 1 MG SOLN IV ONE (05:15)
[2019-08-30] MEDS ORDERED: DILTIAZEM 125 MG in SODIUM CHLORIDE 0.9% 100 ML IV SCH (05:30)
[2019-08-30 06:59] LABS: Glucose,Whole Blood 95 mg/dL (75-99)
[2019-08-30] MEDS: INSULIN ASPART (NovoLOG) 100 UNIT/ML VIAL SQ SCH ×8 (07:08→21:35)
[2019-08-30] MEDS: PANTOPRAZOLE 40 MG TABLET PO SCH (07:10)
[2019-08-30] MEDS: SYMBICORT 160-4.5 MCG INHALER INHALATION SCH ×2 (07:42→20:30)
[2019-08-30] MEDS: IPRATROPIUM 0.5 MG/2.5 ML NEBU INHALATION SCH ×4 (07:42→20:31)
[2019-08-30 08:29] LABS: INR 2.1 (<1.2); Prothrombin Time 20.5 sec (9.0-12.0)
[2019-08-30 08:33] LABS: Potassium 4.5 mmol/L (3.5-5.1)
[2019-08-30] MEDS: diphenhydrAMINE 25 MG CAP PO SCH (08:36)
[2019-08-30] MEDS: METOPROLOL TARTRATE 25 MG TAB PO SCH ×2 (08:36→21:36)
[2019-08-30] MEDS: FLUCONAZOLE 100 MG TAB PO SCH (08:36)
[2019-08-30] MEDS: MULTIVITAMINS, THERA 1 EACH TAB PO SCH (08:36)
[2019-08-30] MEDS: TOPIRAMATE 25 MG TAB PO SCH ×2 (08:36→21:36)
[2019-08-30] MEDS: AMOXIC-POT CLAV 875-125MG 1 EACH TAB PO SCH ×2 (08:36→21:30)
[2019-08-30] MEDS: ASPIRIN 81 MG PO SCH (08:36)
[2019-08-30] MEDS: PREGABALIN 100 MG CAP PO SCH ×2 (08:36→21:36)
[2019-08-30] MEDS: FUROSEMIDE 10 MG/ML 2 ML VIAL IV SCH ×2 (08:37→21:30)
[2019-08-30] MEDS ORDERED: AMIODARONE 360 MG in DEXTROSE 5% IN WATER 200 ML IV ONE ×2 (10:22)
[2019-08-30] MEDS ORDERED: DEXTROSE 5% IN WATER 100 ML with AMIODARONE 150 MG IV ONE (10:22)
[2019-08-30 11:50] LABS: Glucose,Whole Blood 191 mg/dL (75-99)
--- NOTE | 2019-08-30 11:53 | P.PN ---
Subjective Progress Note Date: 08/30/19 His is a 64-year-old gentleman admitted to the hospital for atrial fibrillation, bilateral leg edema, bilateral lower extremity DVT with varicose veins, diabetes, hypertension, hyperlipidemia. He was initially in the intensive care unit, being followed now on the cardiac unit. He was seen and e xamined this morning, hemodynamically stable, his heart rate today in the 60s, blood pressure 126/90. Breathing is overall stable, denies any chest discomfort. We will decrease his aspirin to 81 mg daily. 08/30/2019 Patient was seen and examined this morning, he was actually scheduled to be disc harged home today but went into A. fib with RVR. Heart rate this morning in the 150-160 range, he was initiated on IV Cardizem through the night last night. Patient's ejection fraction is 30-35%. We will discontinue the IV Cardizem and start the patient on IV amiodarone today. We will need to monitor the patient's INR closely being on the amiodarone as well as being on antibiotics. We will a lso look into whether or not it has ever been discussed with the patient regarding the new her anticoagulants. Objective - Vital Signs Vital signs: Vital Signs Temp 98.4 F 08/30/19 00:26 Pulse 156 H 08/30/19 08:00 Resp 14 08/30/19 08:00 BP 97/76 08/30/19 05:16 Pulse Ox 98 08/30/19 05:16 Intake & Output 08/29/19 08/30/19 08/30/19 18:59 06:59 18:59 Intake Total 480 740 120 Balance 480 740 120 Weight 146.1 kg Intake: Intake, IV Titration 500 Amount Vancomycin 2,000 mg In 500 Sodium Chloride 0.9% 500 ml 500 ml @ 167 mls/hr IVPB Q16H [facility] Rx#: [id number] Oral 480 240 120 Other: Voiding Method Urinal Urinal # Voids 3 1 - Exam Gen: This is a 64-year-old male patient. He is resting in bed appears to be comfortable and in no acute distress. HEENT: Head is atraumatic, normocephalic. Pupils equal, round. Sclerae is anicteric. NECK: Supple. No JVD. No lymphadenopathy. No thyromegaly. LUNGS: Clear to auscultation. No wheezes or rhonchi. No intercostal retractions. HEART: Irregular rate and rhythm. Systolic murmur at the left lower sternal border. Heart rate 140s. ABDOMEN: Soft. Bowel sounds are present. No masses. No tenderness. EXTREMITIES: Bilateral pitting edema to the lower extremities, chronic stasis changes, cellulitis and ulcerations. NEUROLOGICAL: Patient is awake, alert and oriented x3. Cranial nerves 2 through 12 are grossly intact. - Labs CBC & Chem 7: 08/29/19 07:02 08/30/19 07:14 Labs: Abnormal Lab Results - Last 24 Hours (Table) 08/29/19 08/29/19 08/29/19 Range/Units 12:01 17:10 20:25 PT (9.0-12.0) sec INR (<1.2) Sodium (137-145) mmol/L Chloride (98-107) mmol/L Carbon Dioxide (22-30) mmol/L BUN (9-20) mg/dL Glucose (74-99) mg/dL POC Glucose (mg/dL) 186 H 200 H 225 H (75-99) mg/dL Calcium (8.4-10.2) mg/dL 08/30/19 08/30/19 Range/Units 07:14 07:14 PT 20.5 H (9.0-12.0) sec INR 2.1 H (<1.2) Sodium 133 L (137-145) mmol/L Chloride 93 L (98-107) mmol/L Carbon Dioxide 34 H (22-30) mmol/L BUN 32 H (9-20) mg/dL Glucose 73 L (74-99) mg/dL POC Glucose (mg/dL) (75-99) mg/dL Calcium 8.0 L (8.4-10.2) mg/dL Microbiology - Last 24 Hours (Table) 08/30/19 06:30 Sputum Culture - Preliminary Sputum Assessment and Plan Plan: Assessment and plan: #1 Persistent atrial fibrillation rate under better control today #2 Cellulitis of the lower extremities with ulcerations and leg edema #3 History of DVT Plan We will discontinue the IV Cardizem drip and start the patient on IV amiodarone. Monitor the INRs closely now that the patient is on amiodarone. We'll we'll also check to see if it is severed been looked into, if the patient can be on one of the newer anticoagulants. I did have a discussion with the patient about that this morning as well. Further recommendations to follow. DNP note has been reviewed, I agree with a documented findings and plan of care. Patient was seen and examined.
--- NOTE | 2019-08-30 12:53 | P.PN ---
Subjective Patient is admitted for gangrene and diabetic foot ulcer with osteomyelitis patient is status post amputation. Patient was also treated for heart failure exacerbation although patient was hypotensive hyponatremic with worsening renal function because of which has stopped the diuretics as today patient is IV fluids patient oxygen requirements have gone up patient chest x-rays showing pulmonary edema IV fluids will be discontinued and patient will be given us low- dose of Lasix , patient will not be can you done JEVON inhibitor as his blood pressure cannot tolerate at this time. This can be optimized as an outpatient 1 he owns his most stabilized. Patient is requiring 3 L of oxygen as opposed to no oxygen yesterday. Patient also denied any shortness of breath at this time 08/30/2019 Patient had A. fib with rapid ventricular rate presently on amiodarone overnight he was on Cardizem, patient EF is low because of which she was switched to amiodarone. Patient on Lasix patient is bit confused today I believe it's because of the narcotics including oxycodone and morphine morphine will be discontinued, we'll use Toradol for pain, patient although able to answer my questions. Constitutional: Denied any fatigue denied any fever. Cardio vascular: denied any chest pain, palpitations Gastrointestinal denied any nausea vomiting Pulmonary: Does have some shortness of breath Neurologic denied any new focal deficits All inpatient medications were reviewed and appropriate changes in these medications as dictated in the interval history and assessment and plan. Objective - Vital Signs Vital signs: Vital Signs Temp 98.4 F 08/30/19 00:26 Pulse 156 H 08/30/19 08:00 Resp 14 08/30/19 08:00 BP 97/76 08/30/19 05:16 Pulse Ox 98 08/30/19 05:16 Intake & Output 08/29/19 08/30/19 08/30/19 18:59 06:59 18:59 Intake Total 480 740 120 Balance 480 740 120 Weight 146.1 kg Intake: Intake, IV Titration 500 Amount Vancomycin 2,000 mg In 500 Sodium Chloride 0.9% 500 ml 500 ml @ 167 mls/hr IVPB Q16H [facility] Rx#: [id number] Oral 480 240 120 Other: Voiding Method Urinal Urinal # Voids 3 1 - Exam PHYSICAL EXAMINATION: GENERAL: The patient is alert and oriented x3 still confused and having some hallucinations, not in any acute distress. Well developed, well nourished. HEENT: Pupils are round and equally reacting to light. EOMI. No scleral icterus. No conjunctival pallor. Normocephalic, atraumatic. No pharyngeal erythema. No thyromegaly. CARDIOVASCULAR: S1 and S2 present. No murmurs, rubs, or gallops. Tachycardic irregularly irregular rhythm PULMONARY: Chest is clear to auscultation, no wheezing or crackles. ABDOMEN: Soft, nontender, nondistended, normoactive bowel sounds. No palpable organomegaly. MUSCULOSKELETAL: No joint swelling or deformity. EXTREMITIES: No cyanosis, clubbing, extensive bilateral pedal edema and patient is status post amputation of the gangrene toes fourth and fifth on the left side NEUROLOGICAL: Gross neurological examination did not reveal any focal deficits. SKIN: No rashes. - Labs CBC & Chem 7: 08/29/19 07:02 08/30/19 07:14 Labs: Abnormal Lab Results - Last 24 Hours (Table) 08/29/19 08/29/19 08/30/19 Range/Units 17:10 20:25 07:14 PT 20.5 H (9.0-12.0) sec INR 2.1 H (<1.2) Sodium (137-145) mmol/L Chloride (98-107) mmol/L Carbon Dioxide (22-30) mmol/L BUN (9-20) mg/dL Glucose (74-99) mg/dL POC Glucose (mg/dL) 200 H 225 H (75-99) mg/dL Calcium (8.4-10.2) mg/dL 08/30/19 08/30/19 Range/Units 07:14 11:48 PT (9.0-12.0) sec INR (<1.2) Sodium 133 L (137-145) mmol/L Chloride 93 L (98-107) mmol/L Carbon Dioxide 34 H (22-30) mmol/L BUN 32 H (9-20) mg/dL Glucose 73 L (74-99) mg/dL POC Glucose (mg/dL) 191 H (75-99) mg/dL Calcium 8.0 L (8.4-10.2) mg/dL Microbiology - Last 24 Hours (Table) 08/30/19 06:30 Sputum Culture - Preliminary Sputum Assessment and Plan Plan: Assessment and Plan Assessment: Diabetic foot ulcer with gangrenous necrosis acute inflammation and abscess with underlying bone with minimal acute osteomyelitis and chronic reactive/degene rative changes with MRSA and anaerobic gram-positive cocci types 2 grown from the culture with possible sepsis, present on admission 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 at the metatarsophalangeal joint and debridement of the wound at the plantar aspect of the left foot with removal of devitalized tissue 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; patient has history of [place] filter placement; patient remains on anticoagulation on Coumadin and therapy concomitant Bilateral leg edema His heart failure chronic systolic dysfunction with mild acute exacerbation IV fluids will be discontinued and patient will be resumed on slow gentle diuresis -Acute hypoxic respiratory failure: Secondary to CHF exacerbation Persistent atrial fibrillation Type 2 diabetes Generalized anxiety disorder Coumadin monitoring Hyponatremia Mild hypokalemia Gait dysfunction History of noncompliance Obesity with a body mass index of 39.2 COPD; not in exacerbation CODE STATUS; full code
[2019-08-30] MEDS: VANCOMYCIN 1,750 MG in SODIUM CHLORIDE 0.9% 500 ML 500 ML IVPB SCH (15:00)
--- NOTE | 2019-08-30 16:34 | PN ---
PROGRESS NOTE DATE OF SERVICE: 08/30/2019 REASON FOR FOLLOWUP: Left foot diabetic foot infection with osteomyelitis. INTERVAL HISTORY: The patient is currently afebrile, has been breathing slightly comfortably. Denies having any chest pain. Occasional cough. No nausea or vomiting. No abdominal pain. Pain in the left foot. PHYSICAL EXAMINATION: Blood pressure 113/74, pulse 79, temperature 98.4. He is 92% on room air. General description is a middle-aged male up in the bed in no distress. Respiratory system: Unlabored breathing. Decreased breath sounds at the bases. No wheeze. Heart: S1/S2. Regular rate and rhythm. Abdomen soft, no tenderness. Left foot is currently dressed up. No obvious drainage on the dressing. LAB: BUN of 32 and creatinine 1.59. No CBC was done today. White count was normal as of yesterday. DIAGNOSTIC IMPRESSION AND PLAN: Patient with left diabetic foot infection in this patient who did have underlying osteomyelitis. The patient is status post left 4th and 5th toe amputation. Culture was MRSA and anaerobic gram-positive. The patient is covered with vancomycin and Augment. White count normal as of yesterday. Continue with antibiotics for at least another 10 days to two weeks. Monitor clinical course closely. Continue supportive care. MMODL / IJN: [id number] /
[2019-08-30 16:55] LABS: Glucose,Whole Blood 80 mg/dL (75-99)
[2019-08-30] MEDS: FLUTICASONE 50MCG/SPRAY NASAL 16GM EA NOSTRIL SCH (17:05)
[2019-08-30] MEDS: AMIODARONE 300 MG in DEXTROSE 5% IN WATER 250 ML IV SCH ×2 (17:27)
[2019-08-30] MEDS ORDERED: WARFARIN 3 MG TAB PO ONE (18:00)
[2019-08-30 20:34] LABS: Glucose,Whole Blood 259 mg/dL (75-99)
[2019-08-30] MEDS: ATORVASTATIN 80 MG TAB PO SCH (21:30)
[2019-08-30] MEDS: NORTRIPTYLINE 25 MG CAP PO SCH (21:36)
[2019-08-30] MEDS: INSULIN DETEMIR (LEVEMIR) 100 UNIT/ML SYR SQ SCH (21:36)
[2019-08-31] MEDS: AMIODARONE 300 MG in DEXTROSE 5% IN WATER 250 ML IV SCH ×2 (04:39)
[2019-08-31] MEDS: VANCOMYCIN 1,750 MG in SODIUM CHLORIDE 0.9% 500 ML 500 ML IVPB SCH ×2 (04:52→20:56)
[2019-08-31 06:45] LABS: HCT 38.7 % (39.0-53.0); HGB 12.7 gm/dL (13.0-17.5); MCH 31.5 pg (25.0-35.0); MCHC 32.8 g/dL (31.0-37.0); MCV 96.1 fL (80.0-100.0); Mean Platelet Volume 9.9; Platelet Count 111 k/uL (150-450); RBC 4.03 m/uL (4.30-5.90); RDW 15.2 % (11.5-15.5); WBC 10.2 k/uL (3.8-10.6)
[2019-08-31 06:47] LABS: Glucose,Whole Blood 261 mg/dL (75-99)
[2019-08-31 06:56] LABS: INR 1.8 (<1.2); Prothrombin Time 17.4 sec (9.0-12.0)
[2019-08-31 07:00] LABS: Calcium 7.6 mg/dL (8.4-10.2)
[2019-08-31] MEDS: PANTOPRAZOLE 40 MG TABLET PO SCH (07:05)
[2019-08-31] MEDS: INSULIN ASPART (NovoLOG) 100 UNIT/ML VIAL SQ SCH ×8 (07:05→20:59)
[2019-08-31 07:15] LABS: Potassium 4.3 mmol/L (3.5-5.1)
[2019-08-31] MEDS: SYMBICORT 160-4.5 MCG INHALER INHALATION SCH ×2 (08:02→19:48)
[2019-08-31] MEDS: IPRATROPIUM 0.5 MG/2.5 ML NEBU INHALATION SCH ×4 (08:02→19:48)
[2019-08-31] MEDS: FLUTICASONE 50MCG/SPRAY NASAL 16GM EA NOSTRIL SCH (09:42)
[2019-08-31] MEDS: diphenhydrAMINE 25 MG CAP PO SCH (09:42)
[2019-08-31] MEDS: PREGABALIN 100 MG CAP PO SCH ×2 (09:44→20:47)
[2019-08-31] MEDS: TOPIRAMATE 25 MG TAB PO SCH ×2 (09:44→20:47)
[2019-08-31] MEDS: MULTIVITAMINS, THERA 1 EACH TAB PO SCH (09:44)
[2019-08-31] MEDS: FLUCONAZOLE 100 MG TAB PO SCH (09:44)
[2019-08-31] MEDS: ASPIRIN 81 MG PO SCH (09:44)
[2019-08-31] MEDS: AMOXIC-POT CLAV 875-125MG 1 EACH TAB PO SCH ×2 (09:44→20:46)
[2019-08-31] MEDS: FUROSEMIDE 10 MG/ML 2 ML VIAL IV SCH ×2 (09:45→20:46)
[2019-08-31] MEDS: METOPROLOL TARTRATE 25 MG TAB PO SCH ×2 (09:45→20:47)
--- NOTE | 2019-08-31 10:33 | P.PN ---
Subjective Patient is admitted for gangrene and diabetic foot ulcer with osteomyelitis patient is status post amputation. Patient was also treated for heart failure exacerbation although patient was hypotensive hyponatremic with worsening renal function because of which has stopped the diuretics as today patient is IV fluids patient oxygen requirements have gone up patient chest x-rays showing pulmonary edema IV fluids will be discontinued and patient will be given us low- dose of Lasix , patient will not be can you done JEVON inhibitor as his blood pressure cannot tolerate at this time. This can be optimized as an outpatient 1 he owns his most stabilized. Patient is requiring 3 L of oxygen as opposed to no oxygen yesterday. Patient also denied any shortness of breath at this time 08/30/2019 Patient had A. fib with rapid ventricular rate presently on amiodarone overnight he was on Cardizem, patient EF is low because of which she was switched to amiodarone. Patient on Lasix patient is bit confused today I believe it's because of the narcotics including oxycodone and morphine morphine will be discontinued, we'll use Toradol for pain, patient although able to answer my questions. 08/31/2019 Patient is not wheezing today his serum sodium has gone down to 1:30 on repeat the chest x-ray if the chest x-ray doesn't show any pulmonary edema his Lasix will be held. His INR has come down, pharmacy is managing been dosing. Patient heart rate is in low 100s patient is on amiodarone drip. No significant change in his clinical status blood pressure also improved Constitutional: Denied any fatigue denied any fever. Cardio vascular: denied any chest pain, palpitations Gastrointestinal denied any nausea vomiting Pulmonary: Does have some shortness of breath Neurologic denied any new focal deficits All inpatient medications were reviewed and appropriate changes in these medications as dictated in the interval history and assessment and plan. Objective - Vital Signs Vital signs: Vital Signs Temp 98.0 F 08/30/19 20:00 Pulse 126 H 08/31/19 05:02 Resp 16 08/31/19 05:02 BP 130/64 08/31/19 05:02 Pulse Ox 94 L 08/31/19 05:02 Intake & Output 08/30/19 08/31/19 08/31/19 18:59 06:59 18:59 Intake Total 480 2146 Balance 480 2146 Weight 146.1 kg Intake: IV 360 .9 160 Amiodarone 300 mg In 200 Dextrose 5% in Water 250 ml @ 0.5 MG/MIN 25 mls/hr IV .Q10H [facility] Rx#: [id number] Intake, IV Titration 1786 Amount Amiodarone 300 mg In 450 Dextrose 5% in Water 250 ml @ 0.5 MG/MIN 25 mls/hr IV .Q10H [facility] Rx#: [id number] Vancomycin 1,750 mg In 1336 Sodium Chloride 0.9% 500 ml 500 ml @ 167 mls/hr IVPB Q16H [facility] Rx#: [id number] Oral 480 Other: Voiding Method Urinal Urinal # Voids 2 1 - Exam PHYSICAL EXAMINATION: GENERAL: The patient is alert and oriented x3 still confused and having some hallucinations, not in any acute distress. Well developed, well nourished. HEENT: Pupils are round and equally reacting to light. EOMI. No scleral icterus. No conjunctival pallor. Normocephalic, atraumatic. No pharyngeal erythema. No thyromegaly. CARDIOVASCULAR: S1 and S2 present. No murmurs, rubs, or gallops. Tachycardic irregularly irregular rhythm PULMONARY: Chest is clear to auscultation, no wheezing or crackles. ABDOMEN: Soft, nontender, nondistended, normoactive bowel sounds. No palpable organomegaly. MUSCULOSKELETAL: No joint swelling or deformity. EXTREMITIES: No cyanosis, clubbing, extensive bilateral pedal edema and patient is status post amputation of the gangrene toes fourth and fifth on the left side NEUROLOGICAL: Gross neurological examination did not reveal any focal deficits. SKIN: No rashes. - Labs CBC & Chem 7: 08/31/19 06:23 08/31/19 06:23 Labs: Abnormal Lab Results - Last 24 Hours (Table) 08/30/19 08/30/19 08/31/19 Range/Units 11:48 20:32 06:23 RBC (4.30-5.90) m/uL Hgb (13.0-17.5) gm/dL Hct (39.0-53.0) % Plt Count (150-450) k/uL PT 17.4 H (9.0-12.0) sec INR 1.8 H (<1.2) Sodium (137-145) mmol/L Chloride (98-107) mmol/L BUN (9-20) mg/dL Glucose (74-99) mg/dL POC Glucose (mg/dL) 191 H 259 H (75-99) mg/dL Calcium (8.4-10.2) mg/dL 08/31/19 08/31/19 08/31/19 Range/Units 06:23 06:23 06:45 RBC 4.03 L (4.30-5.90) m/uL Hgb 12.7 L (13.0-17.5) gm/dL Hct 38.7 L (39.0-53.0) % Plt Count 111 L (150-450) k/uL PT (9.0-12.0) sec INR (<1.2) Sodium 130 L (137-145) mmol/L Chloride 95 L (98-107) mmol/L BUN 35 H (9-20) mg/dL Glucose 239 H (74-99) mg/dL POC Glucose (mg/dL) 261 H (75-99) mg/dL Calcium 7.6 L (8.4-10.2) mg/dL Microbiology - Last 24 Hours (Table) 08/30/19 06:30 Gram Stain - Preliminary Sputum Sputum Culture - Preliminary Assessment and Plan Plan: Assessment and Plan Assessment: Diabetic foot ulcer with gangrenous necrosis acute inflammation and abscess with underlying bone with minimal acute osteomyelitis and chronic reactive/degenerative changes with MRSA and anaerobic gram-positive cocci types 2 grown from the culture with possible sepsis, present on admission 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 at the metatarsophalangeal joint and debridement of the wound at the plantar aspect of the left foot with removal of devitalized tissue 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; patient has history of [place] filter placement; patient remains on anticoagulation on Coumadin and therapy concomitant Bilateral leg edema His heart failure chronic systolic dysfunction with mild acute exacerbation IV fluids will be discontinued and patient will be resumed on slow gentle diuresis -Acute hypoxic respiratory failure: Secondary to CHF exacerbation Persistent atrial fibrillation Type 2 diabetes Generalized anxiety disorder Coumadin monitoring Hyponatremia Mild hypokalemia Gait dysfunction History of noncompliance Obesity with a body mass index of 39.2 COPD; not in exacerbation CODE STATUS; full code
--- NOTE | 2019-08-31 10:58 | XR ---
EXAMINATION TYPE: XR chest 1V DATE OF EXAM: 08/31/2019 HISTORY: chf. REFERENCE: Previous study dated 08/29/2019. FINDINGS: Heart size is mildly prominent. The lungs are clear. There is mild blunting of both CP angl es. I could not exclude small effusions. IMPRESSION: IMPROVING CHANGES OF CONGESTIVE HEART.
[2019-08-31 12:10] LABS: Glucose,Whole Blood 144 mg/dL (75-99)
[2019-08-31] MEDS: KETOROLAC 30 MG/ML 1 ML VIAL IVP PRN ×3 (12:26→23:04)
--- NOTE | 2019-08-31 14:31 | P.PN ---
Subjective Progress Note Date: 08/31/19 His is a 64-year-old gentleman admitted to the hospital for atrial fibrillation, bilateral leg edema, bilateral lower extremity DVT with varicose veins, diabetes, hypertension, hyperlipidemia. He was initially in the intensive care unit, being followed now on the cardiac unit. He was seen and e xamined this morning, hemodynamically stable, his heart rate today in the 60s, blood pressure 126/90. Breathing is overall stable, denies any chest discomfort. We will decrease his aspirin to 81 mg daily. 08/30/2019 Patient was seen and examined this morning, he was actually scheduled to be disc harged home today but went into A. fib with RVR. Heart rate this morning in the 150-160 range, he was initiated on IV Cardizem through the night last night. Patient's ejection fraction is 30-35%. We will discontinue the IV Cardizem and start the patient on IV amiodarone today. We will need to monitor the patient's INR closely being on the amiodarone as well as being on antibiotics. We will a lso look into whether or not it has ever been discussed with the patient regarding the newer anticoagulants. 08/31/2019 Patient was seen and examined this morning, he was quite combative with the st aff. Appears agitated. Blood pressure 102/60 with a heart rate of 106, 94% on 2 L of oxygen. White blood cell count 10.2, hemoglobin 12.7, count 111. INR 1.8, sodium 1:30, potassium 4.3, BUN 35, creatinine 1.0. Chest x-ray from today showed improving changes of heart failure. Objective - Vital Signs Vital signs: Vital Signs Temp 97.7 F 08/31/19 08:00 Pulse 106 H 08/31/19 08:00 Resp 16 08/31/19 08:00 BP 101/63 08/31/19 08:00 Pulse Ox 94 L 08/31/19 05:02 Intake & Output 08/30/19 08/31/19 08/31/19 18:59 06:59 18:59 Intake Total 480 2146 Balance 480 2146 Weight 146.1 kg Intake: IV 360 .9 160 Amiodarone 300 mg In 200 Dextrose 5% in Water 250 ml @ 0.5 MG/MIN 25 mls/hr IV .Q10H [facility] Rx#: [id number] Intake, IV Titration 1786 Amount Amiodarone 300 mg In 450 Dextrose 5% in Water 250 ml @ 0.5 MG/MIN 25 mls/hr IV .Q10H [facility] Rx#: [id number] Vancomycin 1,750 mg In 1336 Sodium Chloride 0.9% 500 ml 500 ml @ 167 mls/hr IVPB Q16H [facility] Rx#: [id number] Oral 480 Other: Voiding Method Urinal Urinal # Voids 2 1 - Exam Gen: This is a 64-year-old male patient. HEENT: Head is atraumatic, normocephalic. Pupils equal, round. Sclerae is anicteric. NECK: Supple. No JVD. No lymphadenopathy. No thyromegaly. LUNGS: Clear to auscultation. No wheezes or rhonchi. No intercostal retractio ns. HEART: Irregular rate and rhythm. Systolic murmur at the left lower sternal border. Heart rate 140s. ABDOMEN: Soft. Bowel sounds are present. No masses. No tenderness. EXTREMITIES: Bilateral pitting edema to the lower extremities, chronic stasis changes, cellulitis and ulcerations. NEUROLOGICAL: Patient is awake, alert and oriented x3. Agitated, combative - Labs CBC & Chem 7: 08/31/19 06:23 08/31/19 06:23 Labs: Abnormal Lab Results - Last 24 Hours (Table) 08/30/19 08/31/19 08/31/19 Range/Units 20:32 06:23 06:23 RBC 4.03 L (4.30-5.90) m/uL Hgb 12.7 L (13.0-17.5) gm/dL Hct 38.7 L (39.0-53.0) % Plt Count 111 L (150-450) k/uL PT 17.4 H (9.0-12.0) sec INR 1.8 H (<1.2) Sodium (137-145) mmol/L Chloride (98-107) mmol/L BUN (9-20) mg/dL Glucose (74-99) mg/dL POC Glucose (mg/dL) 259 H (75-99) mg/dL Calcium (8.4-10.2) mg/dL 08/31/19 08/31/19 08/31/19 Range/Units 06:23 06:45 12:08 RBC (4.30-5.90) m/uL Hgb (13.0-17.5) gm/dL Hct (39.0-53.0) % Plt Count (150-450) k/uL PT (9.0-12.0) sec INR (<1.2) Sodium 130 L (137-145) mmol/L Chloride 95 L (98-107) mmol/L BUN 35 H (9-20) mg/dL Glucose 239 H (74-99) mg/dL POC Glucose (mg/dL) 261 H 144 H (75-99) mg/dL Calcium 7.6 L (8.4-10.2) mg/dL Microbiology - Last 24 Hours (Table) 08/30/19 06:30 Gram Stain - Preliminary Sputum Sputum Culture - Preliminary Gram Neg Bacilli Assessment and Plan Plan: Assessment and plan: #1 Persistent atrial fibrillation rate under better control today #2 Cellulitis of the lower extremities with ulcerations and leg edema #3 History of DVT Plan From cardiology's perspective, we'll discontinue the IV amiodarone and start the patient on oral, monitor the INRs closely. DNP note has been reviewed, I agree with a documented findings and plan of care. Patient was seen and examined.
[2019-08-31] MEDS ORDERED: HALOPERIDOL LACTATE 5 MG/ML 1 ML VIAL IM PRN ×2 (15:13→15:16)
--- NOTE | 2019-08-31 15:37 | PN ---
PROGRESS NOTE DATE OF SERVICE: 08/31/2019 REASON FOR FOLLOWUP: Left diabetic foot infection with osteomyelitis. INTERVAL HISTORY: The patient is currently afebrile, has been breathing comfortably. The patient seems to be slightly upset at the nursing staff and has been yelling. Denies any chest pain or cough. No abdominal pain or any worsening pain to the left foot. PHYSICAL EXAMINATION: Blood pressure 101/63 with a pulse of 106, temperature 97.7. He is 94% on room air. General description is a middle-aged male lying in bed in no distress. RESPIRATORY SYSTEM: Unlabored breathing. Clear to auscultation anteriorly. HEART: S1, S2. Regular rate and rhythm. ABDOMEN: Soft. No tenderness. Left foot wound did have slight maceration; no redness. Still has some swelling but no purulent drainage. LABS/IMAGING: Hemoglobin is 12.7, white count 10.2, BUN of 35, creatinine 1.08. Sputum with Gram- negative bacilli. Chest x-ray shows improving changes of congestive heart failure. DIAGNOSTIC IMPRESSION AND PLAN: 1. Patient with a left diabetic foot infection with osteomyelitis in this patient who is status post left fourth and fifth toe amputation. Cultures with MRSA and anaerobic Gram-positive cocci. The patient is covered with vancomycin and Augmentin for another week. Local wound care with dry Aquacel Silver dressing, to be changed daily and as needed to keep the area dry. 2. Patient with respiratory symptoms; more likely underlying CHF. Clinically doubt pneumonia. Sputum is Gram-negative, more likely colonizer. No need for further antibiotic therapy at this point to cover for the positive sputum culture. MMODL / IJN: [id number] /
[2019-08-31 16:43] LABS: Glucose,Whole Blood 168 mg/dL (75-99)
[2019-08-31] MEDS: oxyCODONE-APAP 10-325MG 1 EACH TAB PO PRN ×2 (17:14→23:05)
[2019-08-31] MEDS: AMIODARONE 200 MG TAB PO SCH ×2 (17:16→20:47)
[2019-08-31] MEDS ORDERED: WARFARIN 5 MG TAB PO ONE (18:00)
[2019-08-31] MEDS: ATORVASTATIN 80 MG TAB PO SCH (20:46)
[2019-08-31] MEDS: NORTRIPTYLINE 25 MG CAP PO SCH (20:47)
[2019-08-31] MEDS: INSULIN DETEMIR (LEVEMIR) 100 UNIT/ML SYR SQ SCH (20:49)
[2019-08-31 20:51] LABS: Glucose,Whole Blood 235 mg/dL (75-99)
[2019-09-01 06:29] LABS: INR 2.4 (<1.2); Prothrombin Time 23.1 sec (9.0-12.0)
[2019-09-01 06:47] LABS: Glucose,Whole Blood 221 mg/dL (75-99)
[2019-09-01] MEDS: oxyCODONE-APAP 10-325MG 1 EACH TAB PO PRN ×2 (06:49→20:50)
[2019-09-01] MEDS: PANTOPRAZOLE 40 MG TABLET PO SCH (06:49)
[2019-09-01] MEDS: KETOROLAC 30 MG/ML 1 ML VIAL IVP PRN ×2 (06:49→21:01)
[2019-09-01] MEDS: INSULIN ASPART (NovoLOG) 100 UNIT/ML VIAL SQ SCH ×8 (06:50→20:57)
[2019-09-01] MEDS: IPRATROPIUM 0.5 MG/2.5 ML NEBU INHALATION SCH ×4 (08:07→20:31)
[2019-09-01] MEDS: SYMBICORT 160-4.5 MCG INHALER INHALATION SCH ×2 (08:07→20:31)
[2019-09-01] MEDS: AMOXIC-POT CLAV 875-125MG 1 EACH TAB PO SCH ×2 (08:51→20:50)
[2019-09-01] MEDS: AMIODARONE 200 MG TAB PO SCH ×3 (08:51→20:50)
[2019-09-01] MEDS: ASPIRIN 81 MG PO SCH (08:51)
[2019-09-01] MEDS: FLUTICASONE 50MCG/SPRAY NASAL 16GM EA NOSTRIL SCH (08:52)
[2019-09-01] MEDS: diphenhydrAMINE 25 MG CAP PO SCH (08:52)
[2019-09-01] MEDS: MULTIVITAMINS, THERA 1 EACH TAB PO SCH (08:52)
[2019-09-01] MEDS: FLUCONAZOLE 100 MG TAB PO SCH (08:52)
[2019-09-01] MEDS: METOPROLOL TARTRATE 25 MG TAB PO SCH ×2 (08:52→20:49)
[2019-09-01] MEDS: PREGABALIN 100 MG CAP PO SCH ×2 (08:53→20:50)
[2019-09-01] MEDS: TOPIRAMATE 25 MG TAB PO SCH ×2 (08:53→20:51)
[2019-09-01] MEDS: FUROSEMIDE 10 MG/ML 2 ML VIAL IV SCH ×2 (08:54→20:52)
[2019-09-01] MEDS ORDERED: HALOPERIDOL LACTATE 5 MG/ML 1 ML VIAL IM PRN (11:13)
--- NOTE | 2019-09-01 11:15 | P.PN ---
Subjective Patient is admitted for gangrene and diabetic foot ulcer with osteomyelitis patient is status post amputation. Patient was also treated for heart failure exacerbation although patient was hypotensive hyponatremic with worsening renal function because of which has stopped the diuretics as today patient is IV fluids patient oxygen requirements have gone up patient chest x-rays showing pulmonary edema IV fluids will be discontinued and patient will be given us low- dose of Lasix , patient will not be can you done JEVON inhibitor as his blood pressure cannot tolerate at this time. This can be optimized as an outpatient 1 he owns his most stabilized. Patient is requiring 3 L of oxygen as opposed to no oxygen yesterday. Patient also denied any shortness of breath at this time 08/30/2019 Patient had A. fib with rapid ventricular rate presently on amiodarone overnight he was on Cardizem, patient EF is low because of which she was switched to amiodarone. Patient on Lasix patient is bit confused today I believe it's because of the narcotics including oxycodone and morphine morphine will be discontinued, we'll use Toradol for pain, patient although able to answer my questions. 08/31/2019 Patient is not wheezing today his serum sodium has gone down to 1:30 on repeat the chest x-ray if the chest x-ray doesn't show any pulmonary edema his Lasix will be held. His INR has come down, pharmacy is managing been dosing. Patient heart rate is in low 100s patient is on amiodarone drip. No significant change in his clinical status blood pressure also improved 09/01/2019 Patient is looking much better today no signs of breath confusion improved I do not have any basic metabolic profile today along with basic metabolic profile his serum sodium is 1:30 yesterday if it's still going down will cut down the Lasix for switched to oral Lasix chest x-ray showing improving heart failure his heart rate is controlled INR is therapeutic. Constitutional: Denied any fatigue denied any fever. Cardio vascular: denied any chest pain, palpitations Gastrointestinal denied any nausea vomiting Pulmonary: Does have some shortness of breath Neurologic denied any new focal deficits All inpatient medications were reviewed and appropriate changes in these medications as dictated in the interval history and assessment and plan. Objective - Vital Signs Vital signs: Vital Signs Temp 97.4 F L 09/01/19 04:00 Pulse 98 09/01/19 04:00 Resp 18 09/01/19 04:00 BP 109/72 09/01/19 04:00 Pulse Ox 97 09/01/19 04:00 Intake & Output 08/31/19 09/01/19 09/01/19 18:59 06:59 18:59 Intake Total 360 500 120 Balance 360 500 120 Intake: Intake, IV Titration 500 Amount Vancomycin 1,750 mg In 500 Sodium Chloride 0.9% 500 ml 500 ml @ 167 mls/hr IVPB Q16H [facility] Rx#: [id number] Oral 360 120 Other: Voiding Method Toilet Toilet Urinal # Voids 2 1 - Exam PHYSICAL EXAMINATION: GENERAL: The patient is alert and oriented x3 still confused and having some hallucinations, not in any acute distress. Well developed, well nourished. HEENT: Pupils are round and equally reacting to light. EOMI. No scleral icterus. No conjunctival pallor. Normocephalic, atraumatic. No pharyngeal erythema. No thyromegaly. CARDIOVASCULAR: S1 and S2 present. No murmurs, rubs, or gallops. sinus rhythm PULMONARY: Chest is clear to auscultation, no wheezing or crackles. ABDOMEN: Soft, nontender, nondistended, normoactive bowel sounds. No palpable organomegaly. MUSCULOSKELETAL: No joint swelling or deformity. EXTREMITIES: No cyanosis, clubbing, extensive bilateral pedal edema and patient is status post amputation of the gangrene toes fourth and fifth on the left side NEUROLOGICAL: Gross neurological examination did not reveal any focal deficits. SKIN: No rashes. - Labs CBC & Chem 7: 08/31/19 06:23 08/31/19 06:23 Labs: Abnormal Lab Results - Last 24 Hours (Table) 08/31/19 08/31/19 08/31/19 Range/Units 12:08 16:41 20:48 PT (9.0-12.0) sec INR (<1.2) POC Glucose (mg/dL) 144 H 168 H 235 H (75-99) mg/dL 09/01/19 09/01/19 Range/Units 05:53 06:45 PT 23.1 H (9.0-12.0) sec INR 2.4 H (<1.2) POC Glucose (mg/dL) 221 H (75-99) mg/dL Microbiology - Last 24 Hours (Table) 08/30/19 06:30 Gram Stain - Final Sputum Sputum Culture - Final Pseudomonas aeruginosa Assessment and Plan Plan: Assessment and Plan Assessment: Diabetic foot ulcer with gangrenous necrosis acute inflammation and abscess with underlying bone with minimal acute osteomyelitis and chronic reactive/degenerative changes with MRSA and anaerobic gram-positive cocci types 2 grown from the culture with possible sepsis, present on admission -toxic encephalopathy which resolved at this time 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 at the metatarsophalangeal joint and debridement of the wound at the plantar aspect of the left foot with removal of devitalized tissue 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; patient has history of [place] filter placement; patient remains on anticoagulation on Coumadin and therapy concomitant Bilateral leg edema His heart failure chronic systolic dysfunction with mild acute exacerbation IV fluids will be discontinued and patient will be resumed on slow gentle diuresis -Acute hypoxic respiratory failure: Secondary to CHF exacerbation Persistent atrial fibrillation Type 2 diabetes Generalized anxiety disorder Coumadin monitoring Hyponatremia Mild hypokalemia Gait dysfunction History of noncompliance Obesity with a body mass index of 39.2 COPD; not in exacerbation CODE STATUS; full code
[2019-09-01 11:25] LABS: Calcium 7.6 mg/dL (8.4-10.2)
[2019-09-01 11:50] LABS: Glucose,Whole Blood 115 mg/dL (75-99)
[2019-09-01] MEDS: VANCOMYCIN 1,750 MG in SODIUM CHLORIDE 0.9% 500 ML 500 ML IVPB SCH (13:20)
--- NOTE | 2019-09-01 16:48 | PN ---
PROGRESS NOTE DATE OF SERVICE: 09/01/2019 REASON FOR FOLLOWUP: Left diabetic foot infection with osteomyelitis. INTERVAL HISTORY: The patient is currently afebrile, has been breathing comfortably currently on room air. Denies having any chest pain. No shortness of breath. Occasional cough. No nausea. No abdominal pain. No pain to the foot area. PHYSICAL EXAMINATION: Blood pressure 104/69 with a pulse of 92, temperature 97.6. He is 92% on room air. General description is a middle-aged male up in the room in no distress. Respiratory system: Unlabored breathing with decreased breath sounds in the bases. No wheeze. Heart S1, S2. Regular rate and rhythm. ABDOMEN: Soft, no tenderness. Left foot is currently dressed up, no obvious drainage on the dressing. LABS: BUN 45, creatinine 1.63. INR is 2.4. DIAGNOSTIC IMPRESSION AND PLAN: 1. Patient with left diabetic foot infection. The patient did have underlying osteomyelitis status post amputation of the left fourth and fifth toe. The patient will continue with IV vancomycin and oral Augmentin for another week. 2. Positive sputum culture with Pseudomonas, more likely colonized as the patient clinically not behaving as pseudomonas pneumonia. Did have any worsening cough or sputum production. No fever. The chest x-ray did show improvement without getting treatment for the same. Hence, recommend no antibiotic for Pseudomonas. MMODL / IJN: [id number] /
[2019-09-01 16:57] LABS: Glucose,Whole Blood 213 mg/dL (75-99)
[2019-09-01] MEDS ORDERED: WARFARIN 3 MG TAB PO ONE (18:00)
[2019-09-01 20:28] LABS: Glucose,Whole Blood 145 mg/dL (75-99)
[2019-09-01] MEDS: ATORVASTATIN 80 MG TAB PO SCH (20:49)
[2019-09-01] MEDS: NORTRIPTYLINE 25 MG CAP PO SCH (20:51)
[2019-09-01] MEDS: INSULIN DETEMIR (LEVEMIR) 100 UNIT/ML SYR SQ SCH (20:51)
[2019-09-02] MEDS ORDERED: VANCOMYCIN TROUGH DUE 1 EACH MISC MISCELLANE ONE (05:00)
[2019-09-02 05:22] LABS: INR 3.3 (<1.2)
[2019-09-02 05:29] LABS: Calcium 7.4 mg/dL (8.4-10.2); Potassium 4.7 mmol/L (3.5-5.1)
[2019-09-02] MEDS: PANTOPRAZOLE 40 MG TABLET PO SCH (05:42)
[2019-09-02] MEDS: VANCOMYCIN 1,750 MG in SODIUM CHLORIDE 0.9% 500 ML 500 ML IVPB SCH (05:42)
[2019-09-02 06:48] LABS: Glucose,Whole Blood 205 mg/dL (75-99)
[2019-09-02] MEDS ORDERED: VANCOMYCIN IV PER PHARMACY 1 EACH MISC MISCELLANE PRN (06:49)
[2019-09-02] MEDS: KETOROLAC 30 MG/ML 1 ML VIAL IVP PRN ×2 (06:55→20:45)
[2019-09-02] MEDS: INSULIN ASPART (NovoLOG) 100 UNIT/ML VIAL SQ SCH ×8 (06:56→20:44)
[2019-09-02] MEDS: MULTIVITAMINS, THERA 1 EACH TAB PO SCH (08:29)
[2019-09-02] MEDS: AMOXIC-POT CLAV 875-125MG 1 EACH TAB PO SCH ×2 (08:29→20:37)
[2019-09-02] MEDS: AMIODARONE 200 MG TAB PO SCH ×3 (08:29→20:44)
[2019-09-02] MEDS: FLUCONAZOLE 100 MG TAB PO SCH (08:29)
[2019-09-02] MEDS: METOPROLOL TARTRATE 25 MG TAB PO SCH ×2 (08:29→20:37)
[2019-09-02] MEDS: oxyCODONE-APAP 10-325MG 1 EACH TAB PO PRN ×2 (08:29→17:49)
[2019-09-02] MEDS: diphenhydrAMINE 25 MG CAP PO SCH (08:30)
[2019-09-02] MEDS: FUROSEMIDE 10 MG/ML 2 ML VIAL IV SCH (08:30)
[2019-09-02] MEDS: TOPIRAMATE 25 MG TAB PO SCH ×2 (08:30→20:37)
[2019-09-02] MEDS: PREGABALIN 100 MG CAP PO SCH ×2 (08:30→20:36)
[2019-09-02] MEDS: IPRATROPIUM 0.5 MG/2.5 ML NEBU INHALATION SCH ×4 (08:50→21:08)
[2019-09-02] MEDS: SYMBICORT 160-4.5 MCG INHALER INHALATION SCH ×2 (08:50→21:11)
--- NOTE | 2019-09-02 10:41 | P.PN ---
Subjective Progress Note Date: 09/02/19 Principal diagnosis: Principal diagnosis: Diabetic foot ulcer, possible osteomyelitis involving the left foot Persistent atrial fibrillation with poorly controlled ventricular rate Acute mental status change likely secondary to toxic metabolic encephalopathy related to infection 62-year-old white male with history of COPD, deep vein thrombosis/pulmonary embolism, diabetes/ neuropathy, degenerative joint disease, patient had previous history of bilateral deep vein thromboses and pulmonary embolism, chronically on anticoagulations therapy/Coumadin. Patient has been followed recently at the wound care center by Dr. Naranjo for chronic left foot plantar ulcer, and yesterday the patient was noticing foul-smelling discharge coming from the left foot ulcer. He was told by his primary care physician that he may have a foreign body in the foot. Hence the patient came into the ER. While in the ER, patient had shortness of breath and weakness, he was noted to be in atrial fibrillation and RVR. Patient was admitted, placed on Cardizem drip, cardiology consult was initiated, patient was placed on heparin, 08/17/2019 Patient remains in the ICU; patient remains in atrial fibrillation with RVR with heart rate in 1 teens to 130s, cardiology is on the case; patient is started on oral Cardizem, and increased his Lopressor to 50 mg by mouth twice a day. Patient is hemodynamically stable. Patient was evaluated by vascular surgery for his foot ulcer, and the recommendation was to have Dr. Naranjo see him; Dr. Naranjo is consulted and recommendations are pending. In the meantime the patient is receiving antibiotics as per infectious disease on the case and changed IV antibiotic therapy to vancomycin and Unasyn; Zosyn has been discontinued. Patient is complaining that his home medications have not been started, which I ordered His CBC is relatively normal INR is 2.5 electrolytes are normal renal profile is normal; patient has been cleared for transfer to [facility], and I have consulted Dr. Naranjo three-phase bone scan is pending 08/18/2019 Patient is evaluated in selective care unit; patient and family quite upset since patient was not seen by Dr. Naranjo is patient's primary emergency medicine specialist Patient's vital signs remained stable in form of a blood pressure 133/94, SpO2 of 95% on room air; lab review shows an INR of 2.7, potassium 5.2, BUN 30 and creatinine of 1.03; not count is slightly elevated at 11.7; patient's heart rate does fluctuate between 70-80 upto 130; cardiology recommending to continue with Cardizem at an increased dose of 60 mg 3 times a day along with Lopressor 50 mg daily Patient was evaluated by infection disease and underwent wound cleaning; recomm endations are to continue current antibiotic therapy; 08/19/2019 Patient is seen in follow-up stating that he would like to go home. Cardiology and infectious disease following the patient. Patient currently remains on IV antibiotics in the form of Unasyn and vancomycin. Preliminary cultures of the left leg wound showing gram-positive cocci with MRSA. Currently patient denies any chest pain, shortness of breath, or palpitations. Patient is afebrile. Patient denying any nausea or vomiting and is tolerating diet. INR today is 1.9 and will continue with Coumadin. Will repeat a.m. labs. Patient is presently rate controlled with Cardizem and metoprolol and will continue at this time. Will continue to monitor closely. 08/20/2019 Patient seen in follow-up today awaiting a consult with Dr. Mcintyre for possible amputation of the left foot fourth and fifth toe along with wound debridement of the plantar aspect of the left foot and is being closely monitored. Patient was seen by Dr. Naranjo recommending surgical consult with Dr. Mcintyre. Patient is scheduled for surgery this afternoon. Infectious disease is following as well. Patient did receive a PICC line and is currently on IV antibiotics in the form of Unasyn and vancomycin and will continue at this time. Case management and social work following for possible ECF to continue with IV antibiotic therapy once stabilized. Patient is currently on anticoagulation with Coumadin and PT/INR this morning was 1.7 and will repeat a.m. labs. No reports of chest pain or palpitations. Patient is afebrile. 08/21/2019 Patient is seen and evaluated in follow-up today and underwent amputation of the left foot fourth and fifth toe at the metatarsophalangeal joint along with debridement of the wound at the plantar aspect of the left foot with Dr. Mcintyre and is being closely monitored. Patient remains on IV antibiotics in the form of Unasyn and vancomycin and will continue at this time. Infectious disease is following. PT/INR today is 1.9 currently remains on Coumadin. Patient awaiting PT/OT eval as he proceeded to get up on his own today and walked to the bathroom with full weightbearing on his left foot causing some bleeding. Discussed with the patient at length about nonweightbearing of that left foot and using the heel only. Blood sugars remain elevated and is being covered with sliding scale along with long-acting. Nursing staff mentioned that family continues to bring in regular soda and sugared foods. Discussed with the patient and daughter at the bedside about refraining from increased sugar as he needs to have tight control of his blood sugars to optimize healing. Will continue to monitor kameron posadas. 08/22/2019 This is a 64-year-old male who was recently undergone amputation of the fourth and fifth toe along with wound debridement of the left foot and is being closely monitored. Dr. Mcintyre is following. Patient continues to walk to the bathroom and has been weightbearing on the left foot and the dressing has needed frequent changing. Patient is being maintained on IV antibiotics and will continue at this time. Patient continues to state he would really like to go home and is agreeable to home care but is adamant against any type of rehab. Blood sugars remain elevated and steroids are being discontinued. Will continue to monitor closely. 08/23/2019 Patient Is seen in follow-up today having recently undergone amputation of the fourth and fifth toe along with wound debridement of the left foot and is being closely monitored. Patient is continued on IV vancomycin along with oral Flagyl and will continue at this time. Dr. Mcintyre was in to evaluate the patient today along with the dressing change as patient continues to have drainage and moisture surrounding the sutures of the surgical site. Discussed with the patient at length about continuing with nonweightbearing as he continues to walk on that foot. PT/OT is following. INR is therapeutic at 2.9 today. Patient remains on Coumadin for anticoagulation. Blood sugars continue to be elevated and will continue to monitor closely. Patient remains on long-acting along with sliding scale. Steroids have been discontinued. 08/26/2019 Patient is seen and evaluated in follow-up today and continues to have signi ficant edema noted to the left lower extremity. Nursing staff stated there was some bleeding noted from the incision site and awaiting Dr. Mcintyre to evaluate. Patient is having some hypotension along with dizziness, lightheadedness and multiple adjustments to medications have been made. Will continue to monitor closely. Appreciate cardiology input. Will continue to monitor vital signs closely. 08/27/2019 Patient is seen in follow-up today and continues to have some hypotension and is being closely monitored. Blood pressure medications were held this morning as his blood pressure continues to be 100 systolic. Awaiting cardiology reconsult for possible medication adjustments. Patient is maintained on IV antibiotics in the form of vancomycin and will continue at this time. Patient continues to have some dizziness and lightheadedness when standing. Patient also continues to have severe lower extremity swelling and is maintained on IV Lasix and will continue at this time. Once discharged patient will be transitioned oral Lasix. Will continue to monitor vital signs closely. No reports of chest pain, shortness of breath, or palpitations. Patient is afebrile. No reports of nausea or vomiting and patient is tolerating diet. 08/28/2019 Patient continues to be hypotensive and is being closely monitored. Multiple medications have been adjusted including discontinuing the Cardizem and adjusting the metoprolol. IV Lasix has been discontinued. Patient continues to have a cough with some greenish brown mucus production and a chest x-ray was done showing CHF with pulmonary vascular congestion with a trace effusions. Incentive spirometry was ordered and patient instructed to use at least 10 times every hour while awake. Patient is supratherapeutic on INR at 3.2 and Coumadin is being held tonight. BNP was done showing 4070. Patient's sodium is also low at 129 with a creatinine of 1.17. 08/29/2019 Patient is admitted for gangrene and diabetic foot ulcer with osteomyelitis patient is status post amputation. Patient was also treated for heart failure exacerbation although patient was hypotensive hyponatremic with worsening renal function because of which has stopped the diuretics as today patient is IV fluids patient oxygen requirements have gone up patient chest x-rays showing pulmonary edema IV fluids will be discontinued and patient will be given us low- dose of Lasix , patient will not be can you done JEVON inhibitor as his blood pressure cannot tolerate at this time. This can be optimized as an outpatient 1 he owns his most stabilized. Patient is requiring 3 L of oxygen as opposed to no oxygen yesterday. Patient also denied any shortness of breath at this time 08/30/2019 Patient had A. fib with rapid ventricular rate presently on amiodarone overnight he was on Cardizem, patient EF is low because of which she was switched to amiodarone. Patient on Lasix patient is bit confused today I believe it's because of the narcotics including oxycodone and morphine morphine will be discontinued, we'll use Toradol for pain, patient although able to answer my questions. 08/31/2019 Patient is not wheezing today his serum sodium has gone down to 1:30 on repeat the chest x-ray if the chest x-ray doesn't show any pulmonary edema his Lasix will be held. His INR has come down, pharmacy is managing been dosing. Patient heart rate is in low 100s patient is on amiodarone drip. No significant change in his clinical status blood pressure also improved 09/01/2019 Patient is looking much better today no signs of breath confusion improved I do not have any basic metabolic profile today along with basic metabolic profile his serum sodium is 1:30 yesterday if it's still going down will cut down the Lasix for switched to oral Lasix chest x-ray showing improving heart failure his heart rate is controlled INR is therapeutic. Constitutional: Denied any fatigue denied any fever. Cardio vascular: denied any chest pain, palpitations Gastrointestinal denied any nausea vomiting Pulmonary: Does have some shortness of breath Neurologic denied any new focal deficits All inpatient medications were reviewed and appropriate changes in these med ications as dictated in the interval history and assessment and plan. 09/02/2019 Patient is sitting up in the chair sleeping but easily arousable. Sodium continues to be 130 and creatinine is slightly worse at 1.75 with a BUN of 50. Patient's INR is 3.3. Will hold IV Lasix today and repeat labs in the morning. Blood pressure was slightly low in the 90s systolic this morning but has improved. No reports of shortness of breath or chest pain, or palpitations. Patient is alert and oriented 3. No reports of nausea or vomiting and tolerating diet. Patient is afebrile. Patient is on room air. Objective - Vital Signs Vital signs: Vital Signs Temp 97.6 F 09/02/19 08:00 Pulse 71 09/02/19 08:00 Resp 20 09/02/19 08:00 BP 110/78 09/02/19 08:00 Pulse Ox 94 L 09/02/19 08:00 Intake & Output 09/01/19 09/02/19 09/02/19 18:59 06:59 18:59 Intake Total 800 0 Output Total 350 Balance 800 -350 0 Intake: Oral 800 0 Output: Urine 350 Other: Voiding Method Toilet Toilet # Voids 3 1 - Exam General: This is a 64-year-old male sitting up in the chair, awake, alert and oriented 3, less confused, well-developed, well-nourished. Head: Atraumatic normocephalic. HEENT:[Neck is supple.] [No neck masses.] [No thyromegaly.] [No JVD.] PERRLA, EOMI, no icterus. Chest: Diminished breath sounds at the bases with no crackles or wheezing noted. Cardiac Exam: S1, S2 are muffled, sinus rhythm Abdomen: [Soft, obese, nontender, no megaly, no rebound, no guarding, normal bowel sounds.] Extremities: Evidence of significant bilateral lower extremity edema. Left lower extremity is elevated up on the chair Neurological Exam: Alert and oriented 3. Parkinsonian tremor noted of the upper extremities - Labs CBC & Chem 7: 08/31/19 06:23 09/02/19 04:56 Labs: Abnormal Lab Results - Last 24 Hours (Table) 09/01/19 09/01/19 09/01/19 Range/Units 05:50 11:49 16:56 PT (9.0-12.0) sec INR (<1.2) Sodium 132 L (137-145) mmol/L Chloride 96 L (98-107) mmol/L Carbon Dioxide 31 H (22-30) mmol/L BUN 45 H (9-20) mg/dL Creatinine 1.63 H (0.66-1.25) mg/dL Glucose 208 H (74-99) mg/dL POC Glucose (mg/dL) 115 H 213 H (75-99) mg/dL Calcium 7.6 L (8.4-10.2) mg/dL 09/01/19 09/02/19 09/02/19 Range/Units 20:26 04:56 04:56 PT 32.0 H (9.0-12.0) sec INR 3.3 H (<1.2) Sodium 130 L (137-145) mmol/L Chloride 94 L (98-107) mmol/L Carbon Dioxide 31 H (22-30) mmol/L BUN 50 H (9-20) mg/dL Creatinine 1.75 H (0.66-1.25) mg/dL Glucose 161 H (74-99) mg/dL POC Glucose (mg/dL) 145 H (75-99) mg/dL Calcium 7.4 L (8.4-10.2) mg/dL 09/02/19 Range/Units 06:47 PT (9.0-12.0) sec INR (<1.2) Sodium (137-145) mmol/L Chloride (98-107) mmol/L Carbon Dioxide (22-30) mmol/L BUN (9-20) mg/dL Creatinine (0.66-1.25) mg/dL Glucose (74-99) mg/dL POC Glucose (mg/dL) 205 H (75-99) mg/dL Calcium (8.4-10.2) mg/dL Microbiology - Last 24 Hours (Table) 08/30/19 06:30 Gram Stain - Final Sputum Sputum Culture - Final Pseudomonas aeruginosa Assessment and Plan Assessment: -Diabetic foot ulcer with gangrenous necrosis acute inflammation and abscess with underlying bone with minimal acute osteomyelitis and chronic reactive/degenerative changes with MRSA and anaerobic gram-positive cocci types 2 grown from the culture with possible sepsis, present on admission -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 IV Lasix is being discontinued today and will monitor vital signs and labs closely. -Acute hypoxic respiratory failure secondary to heart failure exacerbation -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; patient has history of Isabell filter placement; patient remains on anticoagulation therapy -Bilateral leg edema -Persistent atrial fibrillation with poorly controlled ventricular rate most likely secondary to chronic thromboembolic disease/pulmonary embolism -Type 2 diabetes -Generalized anxiety disorder -Coumadin monitoring -Hyponatremia -Mild hypokalemia, resolved -Gait dysfunction -History of noncompliance -Obesity with a body mass index of 39.2 -COPD; not in exacerbation -CODE STATUS; full code Recommendations and discussion: Recommend to continue current medications, management, and symptomatic treatment. Multiple medical consultations are following. Continue with IV antibiotics in the form of vancomycin as well as oral Augmentin. Infectious disease is following. IV Lasix being discontinued and may transition to oral Lasix tomorrow will repeat a.m. labs and monitor vital signs closely. Will continue to monitor closely. Due to multiple complex medical issues, prognosis is guarded. Further recommendations to follow. Possible discharge in 24-48 hours.
[2019-09-02 11:49] LABS: Glucose,Whole Blood 121 mg/dL (75-99)
[2019-09-02] MEDS: FLUTICASONE 50MCG/SPRAY NASAL 16GM EA NOSTRIL SCH (11:55)
[2019-09-02] MEDS: ASPIRIN 81 MG PO SCH (12:45)
--- NOTE | 2019-09-02 13:05 | PN ---
PROGRESS NOTE DATE OF SERVICE: 09/02/2019 REASON FOR FOLLOWUP: Left diabetic foot infection with osteomyelitis. INTERVAL HISTORY: The patient is currently afebrile, has been breathing comfortably. The patient denies any chest pain or shortness of breath or cough. No abdominal pain or any worsening pain to the left foot area. PHYSICAL EXAMINATION: Blood pressure 110/72 with a pulse of 71, temperature of 97. She is 94% on room air. General description is a middle-aged male, up in the bed in no distress. RESPIRATORY SYSTEM: Unlabored breathing, decreased breath sounds at the base, no wheeze. HEART: S1, S2. Regular rate and rhythm. ABDOMEN: Soft, no tenderness. LABS: Creatinine 1.75 with [QAMARKER] 25.9. DIAGNOSTIC IMPRESSION AND PLAN: Patient with left diabetic foot infection and was treated and did have osteomyelitis of the left 4th and 5th toe on August 20. The patient received about 2 weeks of IV vancomycin from that date. Recommend discontinue vancomycin on discharge. We will consider the patient course of oral doxycycline and Augmentin. Patient is positive for Pseudomonas aeruginosa. Patient was behaving as with Pseudomonas pneumonia with no fever. We were consulted for this symptom and we plan no treatment for the same. MMODL / IJN: [id number] /
[2019-09-02 16:46] LABS: Glucose,Whole Blood 224 mg/dL (75-99)
--- NOTE | 2019-09-02 17:35 | PN ---
PROGRESS NOTE This is a 64-year-old gentleman who had a left foot fourth and fifth toe amputation done in the past. The patient is on IV antibiotic under Infectious Disease. The patient was seen today. He has some dehiscence of the wound, but the base of the wound is granulating. We have been using Aquacel Silver, which will be continued, with IV antibiotic. If the patient goes home, I will follow him in my office on for removal of stitches. I gave him instructions for non-weightbearing. MMODL / IJN: [id number] /
[2019-09-02] MEDS ORDERED: WARFARIN 0.5 MG TAB PO ONE (18:00)
[2019-09-02 20:19] LABS: Glucose,Whole Blood 233 mg/dL (75-99)
[2019-09-02] MEDS: ATORVASTATIN 80 MG TAB PO SCH (20:37)
[2019-09-02] MEDS: INSULIN DETEMIR (LEVEMIR) 100 UNIT/ML SYR SQ SCH (20:41)
[2019-09-02] MEDS: NORTRIPTYLINE 25 MG CAP PO SCH (20:44)
[2019-09-03 06:41] LABS: Glucose,Whole Blood 172 mg/dL (75-99)
[2019-09-03] MEDS: diphenhydrAMINE 25 MG CAP PO SCH (07:21)
[2019-09-03] MEDS: METOPROLOL TARTRATE 25 MG TAB PO SCH ×2 (07:21→21:52)
[2019-09-03] MEDS: FLUCONAZOLE 100 MG TAB PO SCH (07:22)
[2019-09-03] MEDS: ASPIRIN 81 MG PO SCH (07:22)
[2019-09-03] MEDS: AMIODARONE 200 MG TAB PO SCH ×3 (07:22→21:52)
[2019-09-03] MEDS: PANTOPRAZOLE 40 MG TABLET PO SCH (07:22)
[2019-09-03] MEDS: MULTIVITAMINS, THERA 1 EACH TAB PO SCH (07:22)
[2019-09-03] MEDS: PREGABALIN 100 MG CAP PO SCH ×2 (07:22→21:49)
[2019-09-03] MEDS: FLUTICASONE 50MCG/SPRAY NASAL 16GM EA NOSTRIL SCH (07:25)
[2019-09-03] MEDS: INSULIN ASPART (NovoLOG) 100 UNIT/ML VIAL SQ SCH ×8 (07:26→21:51)
[2019-09-03 07:41] LABS: INR 3.7 (<1.2); Prothrombin Time 36.6 sec (9.0-12.0)
[2019-09-03] MEDS: SYMBICORT 160-4.5 MCG INHALER INHALATION SCH ×2 (07:49→20:13)
[2019-09-03] MEDS: IPRATROPIUM 0.5 MG/2.5 ML NEBU INHALATION SCH ×4 (07:49→20:13)
[2019-09-03 08:05] LABS: Calcium 7.3 mg/dL (8.4-10.2); Potassium 5.5 mmol/L (3.5-5.1)
[2019-09-03 08:08] LABS: Basophils % (A) 0 %; Eosinophils # (A) 0.2 k/uL (0-0.7); Eosinophils % (A) 2 %; HCT 39.1 % (39.0-53.0); HGB 12.8 gm/dL (13.0-17.5); Lymphocytes # (A) 1.5 k/uL (1.0-4.8); Lymphocytes % (A) 22 %; MCH 31.6 pg (25.0-35.0); MCHC 32.9 g/dL (31.0-37.0); MCV 96.2 fL (80.0-100.0); Mean Platelet Volume 9.8; Monocytes # (A) 0.4 k/uL (0-1.0); Monocytes % (A) 5 %; Neutrophils # (A) 4.4 k/uL (1.3-7.7); Neutrophils % (A) 66 %; RBC 4.06 m/uL (4.30-5.90); RDW 15.3 % (11.5-15.5); WBC 6.6 k/uL (3.8-10.6)
[2019-09-03] MEDS: AMOXIC-POT CLAV 875-125MG 1 EACH TAB PO SCH ×2 (08:39→21:52)
[2019-09-03] MEDS: TOPIRAMATE 25 MG TAB PO SCH ×2 (08:39→21:52)
[2019-09-03 09:41] LABS: Vancomycin,Random 24.1 ug/mL
[2019-09-03 10:12] LABS: Platelet Count 98 k/uL (150-450)
[2019-09-03 11:03] LABS: Glucose,Whole Blood 207 mg/dL (75-99)
[2019-09-03] MEDS ORDERED: INSULIN REGULAR 100 UNIT/ML VIAL IV ONE (11:03)
[2019-09-03] MEDS ORDERED: SODIUM POLYSTYRENE SULFONATE 15 GM/60 ML BOTTLE PO ONE (11:03)
--- NOTE | 2019-09-03 13:08 | P.PN ---
Subjective Progress Note Date: 09/03/19 Principal diagnosis: Principal diagnosis: Diabetic foot ulcer, possible osteomyelitis involving the left foot Persistent atrial fibrillation with poorly controlled ventricular rate Acute mental status change likely secondary to toxic metabolic encephalopathy related to infection 62-year-old white male with history of COPD, deep vein thrombosis/pulmonary embolism, diabetes/ neuropathy, degenerative joint disease, patient had previous history of bilateral deep vein thromboses and pulmonary embolism, chronically on anticoagulations therapy/Coumadin. Patient has been followed recently at the wound care center by Dr. Naranjo for chronic left foot plantar ulcer, and yesterday the patient was noticing foul-smelling discharge coming from the left foot ulcer. He was told by his primary care physician that he may have a foreign body in the foot. Hence the patient came into the ER. While in the ER, patient had shortness of breath and weakness, he was noted to be in atrial fibrillation and RVR. Patient was admitted, placed on Cardizem drip, cardiology consult was initiated, patient was placed on heparin, 08/17/2019 Patient remains in the ICU; patient remains in atrial fibrillation with RVR with heart rate in 1 teens to 130s, cardiology is on the case; patient is started on oral Cardizem, and increased his Lopressor to 50 mg by mouth twice a day. Patient is hemodynamically stable. Patient was evaluated by vascular surgery for his foot ulcer, and the recommendation was to have Dr. Naranjo see him; Dr. Naranjo is consulted and recommendations are pending. In the meantime the patient is receiving antibiotics as per infectious disease on the case and changed IV antibiotic therapy to vancomycin and Unasyn; Zosyn has been discontinued. Patient is complaining that his home medications have not been started, which I ordered His CBC is relatively normal INR is 2.5 electrolytes are normal renal profile is normal; patient has been cleared for transfer to [facility], and I have consulted Dr. Naranjo three-phase bone scan is pending 08/18/2019 Patient is evaluated in selective care unit; patient and family quite upset since patient was not seen by Dr. Naranjo is patient's primary public relations specialist Patient's vital signs remained stable in form of a blood pressure 133/94, SpO2 of 95% on room air; lab review shows an INR of 2.7, potassium 5.2, BUN 30 and creatinine of 1.03; not count is slightly elevated at 11.7; patient's heart rate does fluctuate between 70-80 upto 130; cardiology recommending to continue with Cardizem at an increased dose of 60 mg 3 times a day along with Lopressor 50 mg daily Patient was evaluated by infection disease and underwent wound cleaning; recomm endations are to continue current antibiotic therapy; 08/19/2019 Patient is seen in follow-up stating that he would like to go home. Cardiology and infectious disease following the patient. Patient currently remains on IV antibiotics in the form of Unasyn and vancomycin. Preliminary cultures of the left leg wound showing gram-positive cocci with MRSA. Currently patient denies any chest pain, shortness of breath, or palpitations. Patient is afebrile. Patient denying any nausea or vomiting and is tolerating diet. INR today is 1.9 and will continue with Coumadin. Will repeat a.m. labs. Patient is presently rate controlled with Cardizem and metoprolol and will continue at this time. Will continue to monitor closely. 08/20/2019 Patient seen in follow-up today awaiting a consult with Dr. Mcintyre for possible amputation of the left foot fourth and fifth toe along with wound debridement of the plantar aspect of the left foot and is being closely monitored. Patient was seen by Dr. Naranjo recommending surgical consult with Dr. Mcintyre. Patient is scheduled for surgery this afternoon. Infectious disease is following as well. Patient did receive a PICC line and is currently on IV antibiotics in the form of Unasyn and vancomycin and will continue at this time. Case management and social work following for possible ECF to continue with IV antibiotic therapy once stabilized. Patient is currently on anticoagulation with Coumadin and PT/INR this morning was 1.7 and will repeat a.m. labs. No reports of chest pain or palpitations. Patient is afebrile. 08/21/2019 Patient is seen and evaluated in follow-up today and underwent amputation of the left foot fourth and fifth toe at the metatarsophalangeal joint along with debridement of the wound at the plantar aspect of the left foot with Dr. Mcintyre and is being closely monitored. Patient remains on IV antibiotics in the form of Unasyn and vancomycin and will continue at this time. Infectious disease is following. PT/INR today is 1.9 currently remains on Coumadin. Patient awaiting PT/OT eval as he proceeded to get up on his own today and walked to the bathroom with full weightbearing on his left foot causing some bleeding. Discussed with the patient at length about nonweightbearing of that left foot and using the heel only. Blood sugars remain elevated and is being covered with sliding scale along with long-acting. Nursing staff mentioned that family continues to bring in regular soda and sugared foods. Discussed with the patient and daughter at the bedside about refraining from increased sugar as he needs to have tight control of his blood sugars to optimize healing. Will continue to monitor kameron posadas. 08/22/2019 This is a 64-year-old male who was recently undergone amputation of the fourth and fifth toe along with wound debridement of the left foot and is being closely monitored. Dr. Mcintyre is following. Patient continues to walk to the bathroom and has been weightbearing on the left foot and the dressing has needed frequent changing. Patient is being maintained on IV antibiotics and will continue at this time. Patient continues to state he would really like to go home and is agreeable to home care but is adamant against any type of rehab. Blood sugars remain elevated and steroids are being discontinued. Will continue to monitor closely. 08/23/2019 Patient Is seen in follow-up today having recently undergone amputation of the fourth and fifth toe along with wound debridement of the left foot and is being closely monitored. Patient is continued on IV vancomycin along with oral Flagyl and will continue at this time. Dr. Mcintyre was in to evaluate the patient today along with the dressing change as patient continues to have drainage and moisture surrounding the sutures of the surgical site. Discussed with the patient at length about continuing with nonweightbearing as he continues to walk on that foot. PT/OT is following. INR is therapeutic at 2.9 today. Patient remains on Coumadin for anticoagulation. Blood sugars continue to be elevated and will continue to monitor closely. Patient remains on long-acting along with sliding scale. Steroids have been discontinued. 08/26/2019 Patient is seen and evaluated in follow-up today and continues to have signi ficant edema noted to the left lower extremity. Nursing staff stated there was some bleeding noted from the incision site and awaiting Dr. Mcintyre to evaluate. Patient is having some hypotension along with dizziness, lightheadedness and multiple adjustments to medications have been made. Will continue to monitor closely. Appreciate cardiology input. Will continue to monitor vital signs closely. 08/27/2019 Patient is seen in follow-up today and continues to have some hypotension and is being closely monitored. Blood pressure medications were held this morning as his blood pressure continues to be 100 systolic. Awaiting cardiology reconsult for possible medication adjustments. Patient is maintained on IV antibiotics in the form of vancomycin and will continue at this time. Patient continues to have some dizziness and lightheadedness when standing. Patient also continues to have severe lower extremity swelling and is maintained on IV Lasix and will continue at this time. Once discharged patient will be transitioned oral Lasix. Will continue to monitor vital signs closely. No reports of chest pain, shortness of breath, or palpitations. Patient is afebrile. No reports of nausea or vomiting and patient is tolerating diet. 08/28/2019 Patient continues to be hypotensive and is being closely monitored. Multiple medications have been adjusted including discontinuing the Cardizem and adjusting the metoprolol. IV Lasix has been discontinued. Patient continues to have a cough with some greenish brown mucus production and a chest x-ray was done showing CHF with pulmonary vascular congestion with a trace effusions. Incentive spirometry was ordered and patient instructed to use at least 10 times every hour while awake. Patient is supratherapeutic on INR at 3.2 and Coumadin is being held tonight. BNP was done showing 4070. Patient's sodium is also low at 129 with a creatinine of 1.17. 08/29/2019 Patient is admitted for gangrene and diabetic foot ulcer with osteomyelitis patient is status post amputation. Patient was also treated for heart failure exacerbation although patient was hypotensive hyponatremic with worsening renal function because of which has stopped the diuretics as today patient is IV fluids patient oxygen requirements have gone up patient chest x-rays showing pulmonary edema IV fluids will be discontinued and patient will be given us low- dose of Lasix , patient will not be can you done JEVON inhibitor as his blood pressure cannot tolerate at this time. This can be optimized as an outpatient 1 he owns his most stabilized. Patient is requiring 3 L of oxygen as opposed to no oxygen yesterday. Patient also denied any shortness of breath at this time 08/30/2019 Patient had A. fib with rapid ventricular rate presently on amiodarone overnight he was on Cardizem, patient EF is low because of which she was switched to amiodarone. Patient on Lasix patient is bit confused today I believe it's because of the narcotics including oxycodone and morphine morphine will be discontinued, we'll use Toradol for pain, patient although able to answer my questions. 08/31/2019 Patient is not wheezing today his serum sodium has gone down to 1:30 on repeat the chest x-ray if the chest x-ray doesn't show any pulmonary edema his Lasix will be held. His INR has come down, pharmacy is managing been dosing. Patient heart rate is in low 100s patient is on amiodarone drip. No significant change in his clinical status blood pressure also improved 09/01/2019 Patient is looking much better today no signs of breath confusion improved I do not have any basic metabolic profile today along with basic metabolic profile his serum sodium is 1:30 yesterday if it's still going down will cut down the Lasix for switched to oral Lasix chest x-ray showing improving heart failure his heart rate is controlled INR is therapeutic. Constitutional: Denied any fatigue denied any fever. Cardio vascular: denied any chest pain, palpitations Gastrointestinal denied any nausea vomiting Pulmonary: Does have some shortness of breath Neurologic denied any new focal deficits All inpatient medications were reviewed and appropriate changes in these med ications as dictated in the interval history and assessment and plan. 09/02/2019 Patient is sitting up in the chair sleeping but easily arousable. Sodium continues to be 130 and creatinine is slightly worse at 1.75 with a BUN of 50. Patient's INR is 3.3. Will hold IV Lasix today and repeat labs in the morning. Blood pressure was slightly low in the 90s systolic this morning but has improved. No reports of shortness of breath or chest pain, or palpitations. Patient is alert and oriented 3. No reports of nausea or vomiting and tolerating diet. Patient is afebrile. Patient is on room air. 09/03/2019 Patient is seen and evaluated today with slight improvement of sodium is currently 132. Potassium slightly high at 5.5 and creatinine continues to worsen at 1.94. Nephrology was consulted. Patient remains off the Lasix and is being closely monitored. Blood pressure is stabilized and patient remains on room air. No reports of shortness of breath, chest pain, or palpitations. No reports of nausea or vomiting and patient is tolerating diet. Patient expressing extreme interest in wanting to go home today and had a lengthy discussion with patient and daughter at the bedside about his worsening creatinine and waiting on nephrology consult. Patient remains on IV vancomycin at this time although will likely transition to oral antibiotics upon discharge. Will repeat a.m. labs. Objective - Vital Signs Vital signs: Vital Signs Temp 97.6 F 09/03/19 07:40 Pulse 81 09/03/19 07:40 Resp 22 09/03/19 07:40 BP 104/67 09/03/19 07:40 Pulse Ox 98 09/03/19 07:40 Intake & Output 09/02/19 09/03/19 09/03/19 18:59 06:59 18:59 Intake Total 980 Balance 980 Intake: Intake, IV Titration 500 Amount Vancomycin 1,750 mg In 500 Sodium Chloride 0.9% 500 ml 500 ml @ 167 mls/hr IVPB Q16H [facility] Rx#: [id number] Oral 480 Other: Voiding Method Toilet Toilet Toilet - Exam General: This is a 64-year-old male sitting up at the side of the bed, awake, alert and oriented 3, less confused, well-developed, well-nourished. Head: Atraumatic normocephalic. HEENT:[Neck is supple.] [No neck masses.] [No thyromegaly.] [No JVD.] PERRLA, EOMI, no icterus. Chest: Diminished breath sounds at the bases with no crackles or wheezing noted. Cardiac Exam: S1, S2 are muffled, sinus rhythm Abdomen: [Soft, obese, nontender, no megaly, no rebound, no guarding, normal bowel sounds.] Extremities: Evidence of significant bilateral lower extremity edema. Left lower extremity dressing was reapplied by Dr. Mcintyre and is dry and intact Neurological Exam: Alert and oriented 3. Parkinsonian tremor noted of the upper extremities - Labs CBC & Chem 7: 09/03/19 07:03 09/03/19 07:03 Labs: Abnormal Lab Results - Last 24 Hours (Table) 09/02/19 09/02/19 09/03/19 Range/Units 16:44 20:18 06:39 RBC (4.30-5.90) m/uL Hgb (13.0-17.5) gm/dL Plt Count (150-450) k/uL PT (9.0-12.0) sec INR (<1.2) Sodium (137-145) mmol/L Potassium (3.5-5.1) mmol/L Chloride (98-107) mmol/L BUN (9-20) mg/dL Creatinine (0.66-1.25) mg/dL Glucose (74-99) mg/dL POC Glucose (mg/dL) 224 H 233 H 172 H (75-99) mg/dL Calcium (8.4-10.2) mg/dL 09/03/19 09/03/19 09/03/19 Range/Units 07:03 07:03 07:03 RBC 4.06 L (4.30-5.90) m/uL Hgb 12.8 L (13.0-17.5) gm/dL Plt Count 98 L (150-450) k/uL PT 36.6 H (9.0-12.0) sec INR 3.7 H (<1.2) Sodium 132 L (137-145) mmol/L Potassium 5.5 H (3.5-5.1) mmol/L Chloride 95 L (98-107) mmol/L BUN 59 H (9-20) mg/dL Creatinine 1.94 H (0.66-1.25) mg/dL Glucose 182 H (74-99) mg/dL POC Glucose (mg/dL) (75-99) mg/dL Calcium 7.3 L (8.4-10.2) mg/dL 09/03/19 Range/Units 11:00 RBC (4.30-5.90) m/uL Hgb (13.0-17.5) gm/dL Plt Count (150-450) k/uL PT (9.0-12.0) sec INR (<1.2) Sodium (137-145) mmol/L Potassium (3.5-5.1) mmol/L Chloride (98-107) mmol/L BUN (9-20) mg/dL Creatinine (0.66-1.25) mg/dL Glucose (74-99) mg/dL POC Glucose (mg/dL) 207 H (75-99) mg/dL Calcium (8.4-10.2) mg/dL Assessment and Plan Assessment: -Diabetic foot ulcer with gangrenous necrosis acute inflammation and abscess with underlying bone with minimal acute osteomyelitis and chronic reactive/degenerative changes with MRSA and anaerobic gram-positive cocci types 2 grown from the culture with possible sepsis, present on admission -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 at the metatarsophalangeal joint and debridement of the wound at the plantar aspect of the left foot with removal of devitalized tissue -Hyperkalemia: Potassium is 5.5 and will be given a small dose of Kayexalate. Will repeat a.m. labs -Toxic encephalopathy which is resolved at this time -History of heart failure with chronic systolic dysfunction with mild acute exacerbation. IV Lasix continues to be on hold and nephrology consulted -Acute hypoxic respiratory failure secondary to heart failure exacerbation -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; patient has history of [place] filter placement; patient remains on anticoagulation therapy. Coumadin will be held this evening for an elevated INR of 3.7. Will repeat a.m. labs. -Bilateral leg edema -Persistent atrial fibrillation with poorly controlled ventricular rate most likely secondary to chronic thromboembolic disease/pulmonary embolism -Type 2 diabetes -Generalized anxiety disorder -Coumadin monitoring -Hyponatremia, improved current sodium is 132 -Mild hypokalemia, resolved -Gait dysfunction -History of noncompliance -Obesity with a body mass index of 39.2 -COPD; not in exacerbation -CODE STATUS; full code Recommendations and discussion: Recommend to continue current medications, management, and symptomatic treatment. Multiple medical consultations are following. Continue with IV antibiotics in the form of vancomycin as well as oral Augmentin and will likely transition to oral antibiotics at the time of discharge. Infectious disease is following. IV Lasix has been discontinued and creatinine continues to worsen and is currently 1.94. Nephrology was consulted and currently pending at this time. Will continue to monitor closely. Due to multiple complex medical issues, prognosis is guarded. Further recommendations to follow. Possible discharge in 24-48 hours.
[2019-09-03 13:23] LABS: Glucose,Whole Blood 102 mg/dL (75-99)
--- NOTE | 2019-09-03 14:04 | US ---
EXAMINATION TYPE: US kidneys/renal and bladder DATE OF EXAM: 09/03/2019 COMPARISON: CT dated 11/15/2017 CLINICAL HISTORY: rf. Renal failure EXAM MEASUREMENTS: Right Kidney: 13.2 x 5.1 x 6.3 cm Left Kidney: 13.7 x 5.9 x 5.5 cm Left kidney imaged 1st due to pt's position Right Kidney: Large in size, otherwise appeared wnl Left Kidney: Large in size, otherwise appeared wnl Bladder: wnl Bilateral Jets seen: No Incidental accessory spleen visualized Kidneys show normal cortical medullary differentiation. There is no evident ascites. IMPRESSION: Ureteral jets were not identified in the bladder under color Doppler. Kidneys show no hydronephrosis.
--- NOTE | 2019-09-03 14:43 | CONS ---
CONSULTATION REASON FOR CONSULT: Renal failure. HISTORY OF PRESENT ILLNESS: Patient is a 64-year-old male who was initially admitted to the hospital on 08/15/2019 with complaints of left foot swelling and ulcer. Patient is being treated for osteomyelitis of his left foot. He also has persistent atrial fibrillation. Serum creatinine was elevated to 1.94 today from a previous creatinine of 0.9 on 08/27/2019. Review of med list shows patient has been on Toradol for pain, which is now discontinued. He is also on vancomycin and the vancomycin level has been about 25-24. Patient has been voiding well. His blood pressure has been on the lower side with systolic around 104 and 98 and 94 mmHg yesterday and today. He is maintained on Lopressor 25 mg twice a day. Patient had been on diuretics for lower extremity edema, which were held for the last couple of days. PAST MEDICAL HISTORY: CVA, asthma, COPD, type 2 diabetes, DVT, hyperlipidemia, gastroesophageal reflux disease, osteoarthritis, pneumonia, history of PE, migraines, lupus anticoagulant was positive, history of pneumothorax. PAST SURGICAL HISTORY: Adenoidectomy, appendectomy, tonsillectomy, [place] filter placement, vein stripping. SOCIAL HISTORY: Positive for smoking, no history of drug abuse or alcohol abuse. MEDICATIONS: At home prior to admission included Lipitor, Celebrex, Lyrica, Topamax, Coumadin, Glucophage, Zestril, nebulized Ventolin, Colace, Levaquin, Pamelor, Prilosec, Spiriva, Benadryl. ALLERGIES: Include BACLOFEN. PHYSICAL EXAMINATION: On examination, patient is comfortable, awake, he is not in any acute distress. He is upset about not being able to go home. Blood pressure was 104/67, heart rate 81 per minute, he is afebrile. Examination of the heart S1, S2. Examination of the lungs, bilateral breath sounds are heard. Abdomen is soft, nontender, obese. Examination of the lower extremities shows edema 1+ bilaterally. Left foot is currently wrapped. 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 LABS: Show odium 132, potassium 5.5, chloride 95, BUN 59, creatinine 1.9, blood sugar was 207, calcium 7.3. ASSESSMENT: 1. Acute kidney injury, multifactorial including hypotension as well as use of NSAIDs. The patient is also on vancomycin. All the levels are not significantly elevated, but given the acute kidney injury, I would avoid the vancomycin. I will discuss with Infectious Disease and discontinue the Toradol. 2. Hyperkalemia associated with acute kidney injury, use of NSAIDs and also secondary to elevated blood sugars. We will treat with IV insulin for now. The patient will be maintained on low-potassium diet and give him a small dose of Kayexalate as well. Since he really wants to go home soon. 3. Left foot osteomyelitis, maintained on vancomycin. Discussed with ID regarding discontinuation of vancomycin. 4. Chronic kidney disease with previous creatinine at 1.0 - 1.1 mg/dL, NKF stage III, mostly nephrosclerosis. UA is negative for protein. PLAN: Treat hyperkalemia, treat hyperglycemia, DC Toradol. Repeat labs in a.m. Consider decreasing dose of Lopressor as long as heart rate is controlled. Check post-void residual scan. Maintain low-potassium diet for now. Check ultrasound of the kidneys if not done recently. Thank you for this consultation. Will continue to follow the patient with you during his hospitalization. MMODL / IJN: [id number] /
--- NOTE | 2019-09-03 15:28 | PN ---
PROGRESS NOTE DATE OF SERVICE: 09/03/2019 REASON FOR FOLLOWUP: Left foot osteomyelitis. INTERVAL HISTORY: The patient is currently afebrile, has been breathing comfortably. Patient is slightly upset for him not able to go home. Denies having any chest pain. No cough. No nausea, no vomiting. No abdominal pain. No pain to the left foot area. PHYSICAL EXAMINATION: Blood pressure is 104/57 with a pulse of 81, temperature 97.6, he is 98% on room air. General description is a middle-aged male up in the chair, in no distress. RESPIRATORY SYSTEM: Unlabored breathing, clear to auscultation anteriorly. HEART: S1, S2. Regular rate and rhythm. ABDOMEN: Soft, no tenderenss. Left foot is currently dressed up with no obvious drainage on the dressing. LABS: Hemoglobin is 12.1, white count of 6.7, BUN of 59, creatinine is 1.94. Vanco was 24.1. DIAGNOSTIC IMPRESSION AND PLAN: Patient with left foot osteomyelitis, status post amputation of left fourth and fifth toe. Culture has been MRSA and anaerobic gram-positive cocci. Patient has been on vancomycin which will be discontinued has received almost 2 weeks of from his surgery along with Augmentin and UA showed course of oral doxycycline and the Augmentin for about a week. PICC line should be discontinued on discharge. Local care to continue per Surgery. Questions and concerns were answered. MMODL / IJN: [id number] /
[2019-09-03 16:36] LABS: Glucose,Whole Blood 132 mg/dL (75-99)
[2019-09-03] MEDS ORDERED: VANCOMYCIN 1,750 MG in SODIUM CHLORIDE 0.9% 500 ML 500 ML IVPB SCH (17:00)
[2019-09-03] MEDS ORDERED: WARFARIN 0.5 MG TAB PO ONE (18:00)
[2019-09-03] MEDS: oxyCODONE-APAP 10-325MG 1 EACH TAB PO PRN (18:20)
[2019-09-03 20:47] LABS: Glucose,Whole Blood 193 mg/dL (75-99)
[2019-09-03] MEDS: INSULIN DETEMIR (LEVEMIR) 100 UNIT/ML SYR SQ SCH (21:50)
[2019-09-03] MEDS: NORTRIPTYLINE 25 MG CAP PO SCH (21:51)
[2019-09-03] MEDS: DOXYCYCLINE 100 MG CAP PO SCH (21:52)
[2019-09-03] MEDS: ATORVASTATIN 80 MG TAB PO SCH (21:52)
[2019-09-03] MEDS ORDERED: HYDROmorphone 0.5 MG/0.5 ML SYRINGE IVP STA (22:19)
[2019-09-04] MEDS: oxyCODONE-APAP 10-325MG 1 EACH TAB PO PRN ×2 (00:40→07:01)
[2019-09-04 06:50] LABS: Glucose,Whole Blood 186 mg/dL (75-99)
[2019-09-04] MEDS: PREGABALIN 100 MG CAP PO SCH (06:59)
[2019-09-04] MEDS: FLUCONAZOLE 100 MG TAB PO SCH (07:00)
[2019-09-04] MEDS: diphenhydrAMINE 25 MG CAP PO SCH (07:00)
[2019-09-04] MEDS: ASPIRIN 81 MG PO SCH (07:00)
[2019-09-04] MEDS: MULTIVITAMINS, THERA 1 EACH TAB PO SCH (07:00)
[2019-09-04] MEDS: METOPROLOL TARTRATE 25 MG TAB PO SCH (07:00)
[2019-09-04] MEDS: SYMBICORT 160-4.5 MCG INHALER INHALATION SCH (07:01)
[2019-09-04] MEDS: PANTOPRAZOLE 40 MG TABLET PO SCH (07:01)
[2019-09-04] MEDS: AMIODARONE 200 MG TAB PO SCH (07:01)
[2019-09-04] MEDS: AMOXIC-POT CLAV 875-125MG 1 EACH TAB PO SCH (07:02)
[2019-09-04] MEDS: DOXYCYCLINE 100 MG CAP PO SCH (07:02)
[2019-09-04] MEDS: FLUTICASONE 50MCG/SPRAY NASAL 16GM EA NOSTRIL SCH (07:03)
[2019-09-04] MEDS: TOPIRAMATE 25 MG TAB PO SCH (07:03)
[2019-09-04] MEDS: IPRATROPIUM 0.5 MG/2.5 ML NEBU INHALATION SCH ×2 (07:04→12:54)
[2019-09-04] MEDS: INSULIN ASPART (NovoLOG) 100 UNIT/ML VIAL SQ SCH ×4 (07:09→11:50)
[2019-09-04 08:36] LABS: Calcium 7.7 mg/dL (8.4-10.2); Potassium 5.1 mmol/L (3.5-5.1); Total Bilirubin 0.5 mg/dL (0.2-1.3); Total Protein 5.7 g/dL (6.3-8.2)
[2019-09-04 08:46] LABS: INR 2.6 (<1.2); Prothrombin Time 24.9 sec (9.0-12.0)
[2019-09-04 08:51] VITALS: BP 102/62; PULSE 72; RESP 18; TEMP 97.6
[2019-09-04 11:26] LABS: Glucose,Whole Blood 271 mg/dL (75-99)
[2019-09-04] MEDS ORDERED: TAMSULOSIN 0.4 MG CAP.ER.24H PO SCH (12:30)
--- NOTE | 2019-09-04 12:37 | PN ---
PROGRESS NOTE Patient is seen for followup for acute kidney injury. His renal function has improved with serum creatinine down from 1.9 to 1.57 mg/dL. The patient's potassium was also elevated at 5.5. It is down to 5.1 today. He did have urine retention initially there was a liter noted on the postvoid scan. However, patient voided and repeat postvoid scans showed about 450 mL. The patient has refused a straight cath and he is currently being encouraged to void frequently. The patient is off of the Toradol. Blood pressure was on the lower side currently staying above 100 mmHg. PHYSICAL EXAMINATION: On examination today, blood pressure is 102/62, heart rate 72 per minute. He is afebrile. EXAMINATION OF THE HEART: S1 and S2. EXAMINATION OF THE LUNGS: Bilateral breath sounds are heard. ABDOMEN: Soft, nontender. Examination of lower extremities shows chronic skin changes. Left foot is currently wrapped. Patient is morbidly obese. LABS: Sodium 136, potassium 5.1, chloride 102, BUN 50, creatinine 1.57. ASSESSMENT: 1. Acute kidney injury associated with hypotension hypoperfusion with nonsteroidal anti-inflammatory agents, currently improved. Patient also has an element of urine retention. He has refused straight cath. He is advised to maintain frequent voiding. Add Flomax and continue to check postvoid scans. If the patient retains more than 500 mL, he will benefit from catheterization on the long run. 2. Hyperkalemia associated with acute kidney injury and NSAIDs, now improved. 3. Left foot osteomyelitis, maintained on vancomycin. 4. Chronic kidney disease, stage 3, baseline creatinine 1 to 1.1 secondary to nephrosclerosis. 5. Type 2 diabetes with elevated blood sugars yesterday. PLAN: Resume loop diuretics. Continue to check postvoid scan. Continue to avoid NSAIDs. Add Flomax. Control blood sugars. MMODL / IJN: [id number] /
--- NOTE | 2019-09-04 15:16 | P.DS ---
Providers Date of admission: 08/15/19 22:08 Expected date of discharge: 09/04/19 Attending physician: Shadia Alvarez Consults: 08/15/19 22:05 Consult Physician Routine Consulting Provider: Elsy Cheung Consult Reason/Comments: afibRVR Do you want consulting provider notified?: Yes Consult Physician Routine Consulting Provider: Sherman Ordoñez Consult Reason/Comments: ID Do you want consulting provider notified?: Yes Consult Physician Urgent Consulting Provider: Carolina Greco Consult Reason/Comments: icu Do you want consulting provider notified?: Yes 08/16/19 07:49 Consult Physician Urgent Consulting Provider: Cristina Dumont Consult Reason/Comments: altered mental status Do you want consulting provider notified?: Yes 08/17/19 10:19 Consult Physician Routine Consulting Provider: Yuan Naranjo Consult Reason/Comments: foot ulcer,possible osteo Do you want consulting provider notified?: Yes 08/20/19 08:55 Consult Physician Routine Consulting Provider: Franko Mcintyre Consult Reason/Comments: Toe Amputation Do you want consulting provider notified?: Already Contacted 08/25/19 08:24 Consult Physician Urgent Consulting Provider: Max Perez Consult Reason/Comments: Blood in sputum Do you want consulting provider notified?: Yes 08/27/19 10:01 Consult Physician Urgent Consulting Provider: Joshua Heaton Consult Reason/Comments: Hypotension, medication adjustment prior to discharge. Do you want consulting provider notified?: Yes 09/03/19 08:36 Consult Physician Stat Consulting Provider: Pb Valenzuela Consult Reason/Comments: elevated creatinine Do you want consulting provider notified?: Yes Primary care physician: Kristin Dixon Hospital Course: Final diagnosis -Diabetic foot ulcer with gangrenous necrosis acute inflammation and abscess with underlying bone with minimal acute osteomyelitis and chronic reactive/degenerative changes with MRSA and anaerobic gram-positive cocci types 2 grown from the culture with possible sepsis, present on admission -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 at the metatarsophalangeal joint and debridement of the wound at the plantar aspect of the left foot with removal of devitalized tissue -Hyperkalemia -Toxic encephalopathy -History of heart failure with chronic systolic dysfunction with mild acute exacerbation -Acute hypoxic respiratory failure secondary to heart failure exacerbation -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 -Bilateral leg edema -Persistent atrial fibrillation with poorly controlled ventricular rate most likely secondary to chronic thromboembolic disease/pulmonary embolism -Type 2 diabetes -Generalized anxiety disorder -Coumadin monitoring -Hyponatremia -Mild hypokalemia -Gait dysfunction -History of noncompliance -Obesity with a body mass index of 39.2 -COPD; not in exacerbation -CODE STATUS; full code Discharge disposition Patient is being discharged in a stable condition with guarded prognosis to home and will have continued home care in the outpatient setting. Patient will follow-up with Dr. Dixon upon discharge along with nephrology in the wound center. Patient has an appointment with Dr. Mcintyre tomorrow at noon. Patient will continue with oral antibiotics in the form of doxycycline along with Augmentin in the outpatient setting. Total time taken is 35 minutes. History of present illness 62-year-old white male with history of COPD, deep vein thrombosis/pulmonary embolism, diabetes/ neuropathy, degenerative joint disease, patient had previous history of bilateral deep vein thromboses and pulmonary embolism, chronically on anticoagulations therapy/Coumadin. Patient has been followed recently at the wound care center by Dr. Naranjo for chronic left foot plantar ulcer, and yesterday the patient was noticing foul-smelling discharge coming from the left foot ulcer. He was told by his primary care physician that he may have a foreign body in the foot. Hence the patient came into the ER. While in the ER, patient had shortness of breath and weakness, he was noted to be in atrial fibrillation and RVR. Patient was admitted, placed on Cardizem drip, cardiology consult was initiated, patient was placed on heparin. During hospitalization patient also underwent amputation of the left fourth and fifth digit with Dr. Mcintyre and is to remain nonweightbearing on that left lower extremity. During hospitalization patient had multiple episodes of hypotension along with some periods of confusion possibly due to narcotic use along with acute CHF exacerbation and was being closely monitored. Patient's creatinine continue to elevate although he was off Lasix and nephrology was consulted. An ultrasound of the kidneys was done showing no hydronephrosis. Patient instructed to continue to hold oral Lasix in the outpatient setting for the few days until follow-up with primary care provider. Patient was also seen and evaluated by cardiology as he had gone into A. fib with RVR on 2 different occasions and had multiple medication adjustments made. Patient was also being followed by physical therapy and continue to need assistance and encouragement on nonweightbearing of that left lower extremity. Patient's blood sugars remained elevated during hospitalization requiring an increase in insulin and will continue this in the outpatient setting. Patient instructed to keep a diary of blood sugar readings along with how much insulin is being used for primary care provider follow-up. Patient does have an appointment tomorrow with Dr. Mcintyre for possible suture removal of the left foot surgical site. Patient verbalized understanding and states his will take him there. Currently patient's condition is stable with guarded prognosis. On exam vital signs are stable. Temp is 97.6F, pulse is 72, respirations are 18, blood pressure is 102/62, oxygen saturation is 95% on room air. Cardio S1, S2 are present. Respiratory system shows diminished breath sounds at the bases with no wheezing or rhonchi noted. Abdomen is soft, obese, nontender. Nervous system shows no focal deficits. Please refer to medication reconciliation sheet for a list of medications. Patient Condition at Discharge: Stable Plan - Discharge Summary Discharge Rx Participant: No New Discharge Prescriptions: New Aspirin 81 mg PO DAILY 30 Days #30 chew Furosemide [Lasix] 40 mg PO DAILY 30 Days #30 tablet Amoxic-Pot Clav 875-125Mg [Augmentin 875-125] 1 tab PO Q12HR #28 tablet Doxycycline [Vibramycin] 100 mg PO BID #20 capsule Amiodarone [Cordarone] 200 mg PO TID 30 Days #90 tab Metoprolol Tartrate [Lopressor] 25 mg PO BID 30 Days #60 tab INSULIN ASPART (NovoLOG) [NovoLOG (formulary)] 16 unit SQ ACHS vial Continue metFORMIN HCL [Glucophage] 500 mg PO BID Pregabalin [Lyrica] 300 mg PO BID Atorvastatin [Lipitor] 80 mg PO HS Topiramate [Topamax] 25 mg PO BID Warfarin Sodium [Coumadin] 6 mg PO MOTUWETHFRSA Multivitamins, Thera [Multivitamin (formulary)] 1 tab PO DAILY Insulin Degludec [Tresiba Flextouch U-200] 72 unit SQ HS Warfarin Sodium 9 mg PO AQUINO Budesonide-Formot 160-4.5 Mcg [Symbicort 160-4.5 Mcg Inhaler] 2 puff INHALATION BID #1 inhaler Fluticasone/Umeclidin/Vilanter [Trelegy Ellipta 100-62.5-25] 1 puff INHALATION RT-DAILY diphenhydrAMINE [Benadryl] 25 mg PO DAILY Omeprazole [PriLOSEC] 20 mg PO DAILY Fluticasone Nasal [place] [Flonase Nasal [place]] 2 spr EA NOSTRIL DAILY Docusate [Colace] 100 mg PO DAILY PRN PRN Reason: Constipation Nortriptyline [Pamelor] 50 mg PO HS Tiotropium [place] [Spiriva] 1 cap INHALATION DAILY Albuterol Nebulized [Ventolin Nebulized] 2.5 mg INHALATION RT-QID PRN PRN Reason: Shortness Of Breath oxyCODONE HCL/ACETAMINOPHEN [Percocet 10-325 mg] 1 tab PO Q6HR PRN #12 tab PRN Reason: Breakthrough Pain Discontinued Celecoxib [CeleBREX] 200 mg PO QAM Lisinopril [Zestril] 20 mg PO DAILY Morphine Sulfate [Morphine Sulfate ER] 30 mg PO Q8H Levofloxacin 750 mg PO DAILY Discharge Medication List Atorvastatin [Lipitor] 80 mg PO HS 01/09/14 [History] Pregabalin [Lyrica] 300 mg PO BID 01/09/14 [History] Topiramate [Topamax] 25 mg PO BID 01/09/14 [History] Warfarin Sodium [Coumadin] 6 mg PO MOTUWETHFRSA 01/09/14 [History] metFORMIN HCL [Glucophage] 500 mg PO BID 01/09/14 [History] Insulin Degludec [Tresiba Flextouch U-200] 72 unit SQ HS 11/15/17 [History] Multivitamins, Thera [Multivitamin (formulary)] 1 tab PO DAILY 11/15/17 [History] Warfarin Sodium 9 mg PO AQUINO 05/10/18 [History] Budesonide-Formot 160-4.5 Mcg [Symbicort 160-4.5 Mcg Inhaler] 2 puff INHALATION BID #1 inhaler 05/11/18 [Rx] Albuterol Nebulized [Ventolin Nebulized] 2.5 mg INHALATION RT-QID PRN 08/15/19 [History] Docusate [Colace] 100 mg PO DAILY PRN 08/15/19 [History] Fluticasone Nasal [place] [Flonase Nasal [place]] 2 spr EA NOSTRIL DAILY 08/15/19 [History] Fluticasone/Umeclidin/Vilanter [Trelegy Ellipta 100-62.5-25] 1 puff INHALATION RT-DAILY 08/15/19 [History] Nortriptyline [Pamelor] 50 mg PO HS 08/15/19 [History] Omeprazole [PriLOSEC] 20 mg PO DAILY 08/15/19 [History] Tiotropium [place] [Spiriva] 1 cap INHALATION DAILY 08/15/19 [History] diphenhydrAMINE [Benadryl] 25 mg PO DAILY 08/15/19 [History] Aspirin 81 mg PO DAILY 30 Days #30 chew 08/26/19 [Rx] Furosemide [Lasix] 40 mg PO DAILY 30 Days #30 tablet 08/26/19 [Rx] Amoxic-Pot Clav 875-125Mg [Augmentin 875-125] 1 tab PO Q12HR #28 tablet 08/27/19 [Rx] Doxycycline [Vibramycin] 100 mg PO BID #20 capsule 09/02/19 [Rx] Amiodarone [Cordarone] 200 mg PO TID 30 Days #90 tab 09/04/19 [Rx] INSULIN ASPART (NovoLOG) [NovoLOG (formulary)] 16 unit SQ ACHS vial 09/04/19 [Rx] Metoprolol Tartrate [Lopressor] 25 mg PO BID 30 Days #60 tab 09/04/19 [Rx] oxyCODONE HCL/ACETAMINOPHEN [Percocet 10-325 mg] 1 tab PO Q6HR PRN #12 tab 09/04/19 [Rx] Follow up Appointment(s)/Referral(s): Cayla Vega MD [STAFF PHYSICIAN] - 09/16/19 9:00 am Kristin Dixon DO [Primary Care Provider] - 09/05/19 11:00 am [facility], [REFERRING] - Wound Healing,Center [NON-STAFF] - 09/06/19 9:15 am (Monday08/23/2019 @ 10:15, was inpatient) Franko Mcintyre MD [STAFF PHYSICIAN] - 09/05/19 12:00 pm (Please call office and schedule follow up appointment for per Dr. Mcintyre.) [facility] Nurse, [NON-STAFF] - 1-2 Days Ambulatory/Diagnostic Orders: Basic Metabolic Panel [LAB.AMB] Time Frame: 2 Days, Location: None Selected Basic Metabolic Panel [LAB.AMB] Location: None Selected Complete Blood Count w/diff [LAB.AMB] Time Frame: 2 Days, Location: None Selected Prothrombin Time INR [LAB.AMB] Time Frame: 2 Days, Location: None Selected Prothrombin Time INR [LAB.AMB] Time Frame: 2 Days, Location: None Selected Patient Instructions/Handouts: Toe Amputation (DC) Activity/Diet/Wound Care/Special Instructions: Activity Limited until follow-up Follow-up with primary care provider upon discharge Continue oral antibiotic therapy the next 2 weeks Follow-up with Dr. Ordoñez in one week Follow-up with Dr. Mcintyre this in the clinic Continue with local wound care with dry Aquacel silver dressing of the left foot and lower extremity and keep the area off pressure and keep it elevated Continue current diet Continue nonweightbearing of the left extremity Repeat labs in 2-3 days Do not take Lasix (furosemide) for the next 3 days until after labs are drawn Discharge Disposition: HOME WITH HOME HEALTH SERVICES
[2019-09-04] MEDS ORDERED: FUROSEMIDE 40 MG TAB PO SCH (16:00)
--- NOTE | 2019-09-04 16:49 | PN ---
PROGRESS NOTE DATE OF SERVICE: 09/04/2019 REASON FOR FOLLOWUP: Left foot diabetic foot infection with osteomyelitis. INTERVAL HISTORY: The patient is currently afebrile, has been breathing comfortably. The patient denies having any chest pain or cough. No abdominal pain. No diarrhea or pain to the left foot. PHYSICAL EXAMINATION: Blood pressure is 102/62 with a pulse of 72, temperature 97.6. He is 95% on room air. General description is a middle-aged male in bed in no distress. RESPIRATORY SYSTEM: Unlabored breathing. Clear to auscultation anteriorly. HEART: S1, S2. Regular rate and rhythm. ABDOMEN: Soft. No tenderness. Left foot is currently dressed up with no obvious drainage on the dressing. LABS: Creatinine is 1.57. INR is 2.6. DIAGNOSTIC IMPRESSION AND PLAN: Patient with a left diabetic foot infection osteomyelitis of the fourth toe status post amputation. Patient received about 2 weeks of antibiotic from his amputation. Would recommend a short course of oral Augmentin and close outpatient followup. Questions and concerns were answered. MMODL / IJN: [id number] /
[2019-09-04] MEDS ORDERED: WARFARIN 2 MG TAB PO SCH (18:00)
== END 2019-09-04 14:09 | disposition home health service (06) | DRG 853 ==
LOC: EC 17:11 → 2SICU 22:08 → 3SCARD 08-17 19:19 → 4SSUR 08-19 22:06 → 3SCARD 08-30 06:54 → 4SSUR 09-02 21:24
PROVIDERS: ADMIT Hospitalist; ATTEND Hospitalist
PROC: 02HV33Z Insertion of Infusion Device into Superior Vena Cava, Percutaneous Approach (ICD-10-PCS; 2019-08-16)
PROC: 0Y6Y0Z0 Detachment at Left 5th Toe, Complete, Open Approach (ICD-10-PCS; principal; 2019-08-21)
PROC: 0Y6W0Z0 Detachment at Left 4th Toe, Complete, Open Approach (ICD-10-PCS; principal; 2019-08-21)
DX: A41.02 Sepsis due to Methicillin resistant Staphylococcus aureus (principal); G92 Toxic encephalopathy; J96.01 Acute respiratory failure with hypoxia; I50.23 Acute on chronic systolic (congestive) heart failure; E11.52 Type 2 diabetes mellitus with diabetic peripheral angiopathy with gangrene; L03.116 Cellulitis of left lower limb; I82.502 Chronic embolism and thrombosis of unspecified deep veins of left lower extremity; I96 Gangrene, not elsewhere classified; E87.1 Hypo-osmolality and hyponatremia; I42.9 Cardiomyopathy, unspecified; I13.0 Hypertensive heart and chronic kidney disease with heart failure and stage 1 through stage 4 chronic kidney disease, or unspecified chronic kidney disease; M86.172 Other acute osteomyelitis, left ankle and foot; T81.30XA Disruption of wound, unspecified, initial encounter; N17.9 Acute kidney failure, unspecified; D68.62 Lupus anticoagulant syndrome; I48.21 Permanent atrial fibrillation; I95.9 Hypotension, unspecified; E87.5 Hyperkalemia; E87.6 Hypokalemia; E11.65 Type 2 diabetes mellitus with hyperglycemia; E11.22 Type 2 diabetes mellitus with diabetic chronic kidney disease; E11.40 Type 2 diabetes mellitus with diabetic neuropathy, unspecified; E11.621 Type 2 diabetes mellitus with foot ulcer; F41.1 Generalized anxiety disorder; E11.628 Type 2 diabetes mellitus with other skin complications; E11.69 Type 2 diabetes mellitus with other specified complication; E78.5 Hyperlipidemia, unspecified; E66.9 Obesity, unspecified; K21.9 Gastro-esophageal reflux disease without esophagitis; G43.909 Migraine, unspecified, not intractable, without status migrainosus; F17.200 Nicotine dependence, unspecified, uncomplicated; J44.9 Chronic obstructive pulmonary disease, unspecified; I83.90 Asymptomatic varicose veins of unspecified lower extremity; M19.90 Unspecified osteoarthritis, unspecified site; S90.859A Superficial foreign body, unspecified foot, initial encounter; W45.8XXA Other foreign body or object entering through skin, initial encounter; T39.395A Adverse effect of other nonsteroidal anti-inflammatory drugs [NSAID], initial encounter; B95.62 Methicillin resistant Staphylococcus aureus infection as the cause of diseases classified elsewhere; N18.3 Chronic kidney disease, stage 3 (moderate); R26.9 Unspecified abnormalities of gait and mobility; Z79.82 Long term (current) use of aspirin; Z79.51 Long term (current) use of inhaled steroids; Z79.4 Long term (current) use of insulin; Z79.01 Long term (current) use of anticoagulants; Z79.899 Other long term (current) drug therapy; Z82.49 Family history of ischemic heart disease and other diseases of the circulatory system; Z86.711 Personal history of pulmonary embolism; Z86.73 Personal history of transient ischemic attack (TIA), and cerebral infarction without residual deficits; Z90.49 Acquired absence of other specified parts of digestive tract; Z90.89 Acquired absence of other organs; Z98.890 Other specified postprocedural states; Z89.429 Acquired absence of other toe(s), unspecified side; Z88.6 Allergy status to analgesic agent; Z68.39 Body mass index [BMI] 39.0-39.9, adult; Z87.01 Personal history of pneumonia (recurrent); Z95.828 Presence of other vascular implants and grafts
CPT/HCPCS: 36415; 36573; 70450; 71045; 71046; 76770; 78315; 80048; 80053; 80061; 80202; 81003; 82565; 83036; 83605; 83735; 83880; 84100; 84443; 84484; 85025; 85027; 85379; 85610; 85730; 87040; 87070; 87075; 87077; 87186; 87205; 88305; 93005; 93306; 94640; 94760; 96365; 96366; 96367; 96375; 96376; 99291; 99292

== ENCOUNTER 2019-10-06 14:56 | Inpatient (IN) | payer MEDICARE ==
[2019-10-06] MEDS ORDERED: NALOXONE 0.4 MG/ML 10 ML VIAL IVP STA (15:11)
[2019-10-06 15:14] LABS: Glucose,Whole Blood 170 mg/dL (75-99)
[2019-10-06] MEDS ORDERED: NALOXONE 0.4 MG/ML 1 ML VIAL IV STA (15:14)
--- NOTE | 2019-10-06 15:19 | ED ---
General Adult HPI - General Chief complaint: Altered Mental Status Stated complaint: Altered Mental Time Seen by Provider: 10/06/19 15:04 Source: patient, EMS Mode of arrival: EMS Limitations: altered mental status, physical limitation - History of Present Illness Initial comments: Patient presents the ED by ambulance for evaluation. Per EMS, the patient's reported to them that the patient was difficult to arouse and "staring off" after he awoke from a nap this afternoon. Patient is somnolent on arrival to the ED, and it is difficult to obtain much useful history from him at this time. Patient is confused as to why he is in the emergency department at this time. Patient denies having any pain or symptoms. Patient denies focal numbness/ weakness/neuro deficit, headache, chest pain, dyspnea, abdominal pain, or any other symptoms or complaints. Patient denies alcohol or drug abuse. Patient's blood sugar was was normal per EMS. - Related Data Home Medications Medication Instructions Recorded Confirmed Atorvastatin [Lipitor] 80 mg PO HS 01/09/14 10/06/19 Pregabalin [Lyrica] 300 mg PO BID 01/09/14 10/06/19 Topiramate [Topamax] 25 mg PO BID 01/09/14 10/06/19 Warfarin Sodium [Coumadin] 6 mg PO MOTUWETHFRSA 01/09/14 10/06/19 metFORMIN HCL [Glucophage] 500 mg PO BID 01/09/14 10/06/19 Insulin Degludec [Tresiba 72 unit SQ HS 11/15/17 10/06/19 Flextouch U-200] Multivitamins, Thera [Multivitamin 1 tab PO DAILY 11/15/17 10/06/19 (formulary)] Warfarin Sodium 9 mg PO AQUINO 05/10/18 10/06/19 Albuterol Nebulized [Ventolin 2.5 mg INHALATION RT-QID PRN 08/15/19 10/06/19 Nebulized] Docusate [Colace] 100 mg PO DAILY PRN 08/15/19 10/06/19 Fluticasone Nasal [place] [Flonase 2 spr EA NOSTRIL DAILY 08/15/19 10/06/19 Nasal [place]] Fluticasone/Umeclidin/Vilanter 1 puff INHALATION RT-DAILY 08/15/19 10/06/19 [Trelegy Ellipta 100-62.5-25] Nortriptyline [Pamelor] 50 mg PO HS 08/15/19 10/06/19 Omeprazole [PriLOSEC] 20 mg PO DAILY 08/15/19 10/06/19 Tiotropium [place] [Spiriva] 1 cap INHALATION RT-DAILY 08/15/19 10/06/19 diphenhydrAMINE [Benadryl] 25 mg PO DAILY 08/15/19 10/06/19 Budesonide-Formot 160-4.5 Mcg 2 puff INHALATION RT-BID 10/06/19 10/06/19 [Symbicort 160-4.5 Mcg Inhaler] Previous Rx's Medication Instructions Recorded Aspirin 81 mg PO DAILY 30 Days #30 chew 08/26/19 Furosemide [Lasix] 40 mg PO DAILY 30 Days #30 tablet 08/26/19 Amiodarone [Cordarone] 200 mg PO TID 30 Days #90 tab 09/04/19 INSULIN ASPART (NovoLOG) [NovoLOG 16 unit SQ ACHS vial 09/04/19 (formulary)] Metoprolol Tartrate [Lopressor] 25 mg PO BID 30 Days #60 tab 09/04/19 oxyCODONE HCL/ACETAMINOPHEN 1 tab PO Q6HR PRN #12 tab 09/04/19 [Percocet 10-325 mg] Allergies Allergy/AdvReac Type Severity Reaction Status Date / Time baclofen Allergy Unknown Verified 10/06/19 17:41 Review of Systems ROS Statement: Those systems with pertinent positive or pertinent negative responses have been documented in the HPI. ROS Other: All systems not noted in ROS Statement are negative. Past Medical History Past Medical History: Asthma, COPD, CVA/TIA, Diabetes Mellitus, Deep Vein Thrombosis (DVT), GERD/Reflux, Hyperlipidemia, Hypertension, Neurologic Disorder, Osteoarthritis (OA), Pneumonia, Pulmonary Embolus (PE) Additional Past Medical History / Comment(s): MIGRAINES. " ANITICOAGULANT LUPUS". PNEUMOTHRORAX. PERIPHERAL EDEMA. History of Any Multi-Drug Resistant Organisms: None Reported Past Surgical History: Adenoidectomy, Appendectomy, Tonsillectomy Additional Past Surgical History / Comment(s): HAILE FILTER . VEIN STRIPPING. STENTS IN "PELVIC AREA" NOVEMBER 2004. Past Anesthesia/Blood Transfusion Reactions: No Reported Reaction Past Psychological History: No Psychological Hx Reported Smoking Status: Current every day smoker Past Alcohol Use History: None Reported Past Drug Use History: None Reported - Past Family History Mother Additional Family Medical History / Comment(s): heart disease, peripheral vascular disease. Father Family Medical History: Unable to Obtain General Exam Limitations: altered mental status, physical limitation General appearance: other (Patient is somnolent, but easily arousable with verbal stimulus) Head exam: Present: atraumatic, normocephalic Eye exam: Present: PERRL, EOMI ENT exam: Present: mucous membranes moist Neck exam: Present: other (Trachea is in midline; no nuchal rigidity). Absent: tenderness, meningismus Respiratory exam: Present: normal lung sounds bilaterally. Absent: respiratory distress, wheezes, rales, rhonchi Cardiovascular Exam: Present: normal rhythm, irregular rhythm, normal heart sounds, other (Normal radial pulses bilaterally) GI/Abdominal exam: Present: soft. Absent: tenderness, guarding Extremities exam: Present: other (Bilateral lower extremity lymphedema and chronic venous stasis changes). Absent: tenderness, calf tenderness Neurological exam: Present: CN II-XII intact, other (Patient is somnolent, but easily arousable with verbal stimulus; patient is oriented to person, place and year, but not to month). Absent: motor sensory deficit Skin exam: Present: warm, dry, intact, normal color Course Vital Signs 10/06/19 10/06/19 10/06/19 14:58 15:13 16:44 Temperature 97.9 F Pulse Rate 76 92 Respiratory 18 18 18 Rate Blood Pressure 88/56 112/87 O2 Sat by Pulse 97 99 Oximetry 10/06/19 17:40 Temperature Pulse Rate 85 Respiratory 18 Rate Blood Pressure 111/77 O2 Sat by Pulse 98 Oximetry - Reevaluation(s) Reevaluation #1: 10/06/19 16:58 Case, H&P, test results thus far and ED management thus far were discussed with Dr. Huang (hospitalist). He accepts hospital admission. He has no further recommendations at this time. 10/06/19 17:01 Patient remains somnolent, but easily arousable. Patient denies development of any new symptoms while in the ED. Patient and daughter are aware of the patient's test results, and they both agree with hospital admission at this time. EKG Findings - EKG Comments: EKG Findings:: EKG is limited secondary to motion artifact, atrial fibrillation, ventricular rate of 84 bpm, normal QRS interval, normal QT interval, no definite ST or T-wave abnormality Medical Decision Making - Medical Decision Making Given that the patient continues to have altered level of consciousness, will admit the patient to the hospital for further evaluation and management. Dr. Huang has accepted hospital admission. Patient's head CT shows no acute intracranial abnormality. Patient has a nonfocal neurological exam. Patient's labwork does not provide a definite explanation for his altered mental status. Patient has not provided a urine specimen yet for urine drug testing. A tox icological etiology is certainly a possibility. - Lab Data Result diagrams: 10/06/19 15:00 10/06/19 15:00 Lab Results 10/06/19 10/06/19 10/06/19 Range/Units 15:00 15:00 15:00 WBC 7.3 (3.8-10.6) k/uL RBC 4.09 L (4.30-5.90) m/uL Hgb 12.9 L (13.0-17.5) gm/dL Hct 40.1 (39.0-53.0) % MCV 97.9 (80.0-100.0) fL MCH 31.6 (25.0-35.0) pg MCHC 32.2 (31.0-37.0) g/dL RDW 16.0 H (11.5-15.5) % Plt Count 140 L (150-450) k/uL Neutrophils % 67 % Lymphocytes % 19 % Monocytes % 6 % Eosinophils % 5 % Basophils % 0 % Neutrophils # 4.9 (1.3-7.7) k/uL Lymphocytes # 1.4 (1.0-4.8) k/uL Monocytes # 0.5 (0-1.0) k/uL Eosinophils # 0.4 (0-0.7) k/uL Basophils # 0.0 (0-0.2) k/uL Anisocytosis Slight Macrocytosis Slight PT 23.3 H (9.0-12.0) sec INR 2.4 H (<1.2) APTT 30.4 H (22.0-30.0) sec Sodium 140 (137-145) mmol/L Potassium 4.7 (3.5-5.1) mmol/L Chloride 108 H (98-107) mmol/L Carbon Dioxide 28 (22-30) mmol/L Anion Gap 4 mmol/L BUN 31 H (9-20) mg/dL Creatinine 1.39 H (0.66-1.25) mg/dL Est GFR (CKD-EPI)AfAm 63 (>60 ml/min/1.73 sqM) Est GFR (CKD-EPI)NonAf 54 (>60 ml/min/1.73 sqM) Glucose 190 H (74-99) mg/dL POC Glucose (mg/dL) (75-99) mg/dL POC Glu Cardiothoracic Surgeon ID Calcium 7.9 L (8.4-10.2) mg/dL Total Bilirubin 0.5 (0.2-1.3) mg/dL AST 115 H (17-59) U/L ALT 118 H (4-49) U/L Alkaline Phosphatase 98 (38-126) U/L Troponin I (0.000-0.034) ng/mL NT-Pro-B Natriuret Pep pg/mL Total Protein 5.8 L (6.3-8.2) g/dL Albumin 3.2 L (3.5-5.0) g/dL Salicylates 1.0 mg/dL Acetaminophen <10.0 ug/mL Serum Alcohol <10 mg/dL 10/06/19 10/06/19 10/06/19 Range/Units 15:00 15:00 15:12 WBC (3.8-10.6) k/uL RBC (4.30-5.90) m/uL Hgb (13.0-17.5) gm/dL Hct (39.0-53.0) % MCV (80.0-100.0) fL MCH (25.0-35.0) pg MCHC (31.0-37.0) g/dL RDW (11.5-15.5) % Plt Count (150-450) k/uL Neutrophils % % Lymphocytes % % Monocytes % % Eosinophils % % Basophils % % Neutrophils # (1.3-7.7) k/uL Lymphocytes # (1.0-4.8) k/uL Monocytes # (0-1.0) k/uL Eosinophils # (0-0.7) k/uL Basophils # (0-0.2) k/uL Anisocytosis Macrocytosis PT (9.0-12.0) sec INR (<1.2) APTT (22.0-30.0) sec Sodium (137-145) mmol/L Potassium (3.5-5.1) mmol/L Chloride (98-107) mmol/L Carbon Dioxide (22-30) mmol/L Anion Gap mmol/L BUN (9-20) mg/dL Creatinine (0.66-1.25) mg/dL Est GFR (CKD-EPI)AfAm (>60 ml/min/1.73 sqM) Est GFR (CKD-EPI)NonAf (>60 ml/min/1.73 sqM) Glucose (74-99) mg/dL POC Glucose (mg/dL) 170 H (75-99) mg/dL POC Glu Cardiothoracic Surgeon ID Bowling, Kenna Calcium (8.4-10.2) mg/dL Total Bilirubin (0.2-1.3) mg/dL AST (17-59) U/L ALT (4-49) U/L Alkaline Phosphatase (38-126) U/L Troponin I <0.012 (0.000-0.034) ng/mL NT-Pro-B Natriuret Pep 2140 pg/mL Total Protein (6.3-8.2) g/dL Albumin (3.5-5.0) g/dL Salicylates mg/dL Acetaminophen ug/mL Serum Alcohol mg/dL - Radiology Data Radiology results: report reviewed (Noncontrast head CT shows no acute intracranial abnormality; chest x-ray shows cardiomegaly and mild interstitial pulmonary edema) Disposition Clinical Impression: Altered mental status, Atrial fibrillation Disposition: ADMITTED IP TO THIS HOSP Condition: Stable Is patient prescribed a controlled substance at d/c from ED?: No Time of Disposition: 16:58
[2019-10-06] MEDS ORDERED: SODIUM CHLORIDE 0.9% 1,000 ML IV ONE (15:35)
[2019-10-06 15:37] LABS: ALT 118 U/L (4-49); AST 115 U/L (17-59); Acetaminophen <10.0 ug/mL; African American GFR (CKD) 63 (>60 ml/min/1.73 sqM); Albumin 3.2 g/dL (3.5-5.0); Alcohol <10 mg/dL; Alkaline Phosphatase 98 U/L (38-126); Anion Gap 4 mmol/L; Blood Urea Nitrogen 31 mg/dL (9-20); Calcium 7.9 mg/dL (8.4-10.2); Carbon Dioxide 28 mmol/L (22-30); Chloride 108 mmol/L (98-107); Glucose 190 mg/dL (74-99); INR 2.4 (<1.2); Non-African American GFR(CKD) 54 (>60 ml/min/1.73 sqM); Partial Thromboplastin Time 30.4 sec (22.0-30.0); Potassium 4.7 mmol/L (3.5-5.1); Prothrombin Time 23.3 sec (9.0-12.0); Sodium 140 mmol/L (137-145); Total Bilirubin 0.5 mg/dL (0.2-1.3); Total Protein 5.8 g/dL (6.3-8.2)
[2019-10-06 16:08] LABS: Anisocytosis Slight; Basophils % (A) 0 %; Eosinophils # (A) 0.4 k/uL (0-0.7); Eosinophils % (A) 5 %; HCT 40.1 % (39.0-53.0); HGB 12.9 gm/dL (13.0-17.5); Lymphocytes # (A) 1.4 k/uL (1.0-4.8); Lymphocytes % (A) 19 %; MCH 31.6 pg (25.0-35.0); MCHC 32.2 g/dL (31.0-37.0); MCV 97.9 fL (80.0-100.0); Macrocytosis Slight; Monocytes # (A) 0.5 k/uL (0-1.0); Monocytes % (A) 6 %; Neutrophils # (A) 4.9 k/uL (1.3-7.7); Neutrophils % (A) 67 %; Platelet Count 140 k/uL (150-450); RBC 4.09 m/uL (4.30-5.90); WBC 7.3 k/uL (3.8-10.6)
--- NOTE | 2019-10-06 16:12 | XR ---
EXAMINATION TYPE: XR chest 1V DATE OF EXAM: 10/06/2019 COMPARISON: 08/31/2019 HISTORY: Mental status TECHNIQUE: Single frontal view of the chest is obtained. FINDINGS: Cardiomediastinal silhouette is enlarged. Mild interstitial edema throughout. Copious soft tissues partially obscure the lower lungs with trace pleural effusions are suspected. No pneumothora x seen. No acute osseous process seen. IMPRESSION: Enlarged cardiomediastinal silhouette and mild interstitial pulmonary edema. Correlate f or congestive heart failure.
--- NOTE | 2019-10-06 16:19 | CT ---
EXAMINATION TYPE: CT brain wo con DATE OF EXAM: 10/06/2019 COMPARISON: 08/16/2019 HISTORY: Altered mental status CT DLP: 1349.4 mGycm Automated exposure control for dose reduction was used. TECHNIQUE: CT scan of the head is performed without contrast. FINDINGS: There is no acute intracranial hemorrhage or midline shift identified. There is diffuse v entricular and sulcal prominence consistent with diffuse age-related cerebral atrophy. There are few areas of low-attenuation in the periventricular white matter most commonly related to chronic small vessel ischemic change. The globes are intact. Mild mucosal thickening is seen in the ethmoid and ri ght maxillary sinus. Remaining paranasal sinuses and mastoid air cells are well aerated. IMPRESSION: No acute intracranial hemorrhage or midline shift. There is diffuse age-related cerebra l atrophy and mild burden chronic small vessel ischemic change noted.
[2019-10-06] MEDS ORDERED: ASPIRIN 325 MG TAB PO STA (16:29)
[2019-10-06] MEDS ORDERED: NALOXONE 0.4 MG/ML 1 ML VIAL IV PRN (17:04)
[2019-10-06] MEDS ORDERED: SODIUM CHLORIDE 0.9% 1,000 ML IV SCH (17:15)
[2019-10-06 20:51] LABS: Glucose,Whole Blood 208 mg/dL (75-99)
[2019-10-06] MEDS: METOPROLOL TARTRATE 25 MG TAB PO SCH (21:37)
[2019-10-06] MEDS: TOPIRAMATE 25 MG TAB PO SCH (21:37)
[2019-10-06] MEDS: metFORMIN 500 MG TAB PO SCH (21:37)
[2019-10-06] MEDS: ATORVASTATIN 80 MG TAB PO SCH (21:37)
[2019-10-06] MEDS ORDERED: DOCUSATE 100 MG CAP PO PRN (21:54)
[2019-10-06] MEDS ORDERED: WARFARIN 3 MG TAB PO SCH (22:00)
[2019-10-06] MEDS: NORTRIPTYLINE 25 MG CAP PO SCH (22:47)
[2019-10-06] MEDS: PREGABALIN 100 MG CAP PO SCH (22:48)
[2019-10-06] MEDS: INSULIN DETEMIR (LEVEMIR) 100 UNIT/ML SYR SQ SCH (22:48)
[2019-10-06] MEDS: AMIODARONE 200 MG TAB PO SCH (22:48)
[2019-10-06 23:13] LABS: Appearance,Urine Clear (Clear); Bilirubin,Urine Negative (Negative); Blood,Urine Negative (Negative); Color,Urine Yellow; Glucose,Urine (UA) Negative (Negative); Ketones,Urine Negative (Negative); Leukocyte Esterase,Urine Negative (Negative); Nitrite,Urine Negative (Negative); PH, Urine 5.5 (5.0-8.0); Protein,Urine Negative (Negative); Urobilinogen,Urine <2.0 mg/dL (<2.0)
[2019-10-06 23:23] LABS: Amphetamine Screen,Urine Not Detected (NotDetected); Barbiturate Screen,Urine Not Detected (NotDetected); Benzodiazepines Screen,Urine Not Detected (NotDetected); Cocaine Screen,Urine Not Detected (NotDetected); Methadone Screen, Urine Not Detected (NotDetected); Opiate Screen,Urine Not Detected (NotDetected); Oxycodone Screen, Urine Detected (NotDetected); Phencyclidine Screen,Urine Not Detected (NotDetected); Tricyclic Antidepressant,Urine Detected (NotDetected); Urn Cannabinoid Scrn Detected (NotDetected)
--- NOTE | 2019-10-06 23:48 | P.HPIM ---
History of Present Illness H&P Date: 10/06/19 Chief Complaint: Altered mental status Patient is a 64-year-old male with a known history of diabetes type 2 insulin- dependent, peripheral vascular disease and history of left sided toe amputation and foot ulcer on follow-up with wound care clinic, history of PE 2, chronic atrial fibrillation, hypertension, hyperlipidemia, history of TIA 15 years ago, osteoarthritis and ongoing nicotine addiction was brought to the hospital by EMS due to altered mental status. Per EMS, the patient's reported to them that the patient was difficult to arouse and "staring off" after he awoke from a nap this afternoon. Patient is somnolent on arrival to the ED, and it is difficult to obtain much useful history from him at this time. According to the family patient does not have any recent illnesses. No fever no chills. No cough or sputum production. Denied any complaints of pain. No complaints of chest pain or shortness breath. No nausea vomiting or abdominal pain or diarrhea. Patient does not have any witnessed seizure activity. Family noticed no focal neurological deficit. Denied any complaints of headache. No recent alcohol use. Chest x-ray showed enlarged cardiac silhouette and mild interstitial pulmonary edema. Correlate for CHF. CT head showed no acute intracranial hemorrhage or midline shift. There is diffuse is related cerebral atrophy and mild burden chronic small vessel ischemic changes noted. No leukocytosis. Hemoglobin 12.9 BUN 31 and creatinine 1.39 AST 115 and ALT 119 BNP 2140 UDS is positive for oxycodone, tricyclic antidepressants and marijuana. Review of Systems Review of systems could not be obtained from the patient. Past Medical History Past Medical History: Asthma, COPD, CVA/TIA, Diabetes Mellitus, Deep Vein Thrombosis (DVT), GERD/Reflux, Hyperlipidemia, Hypertension, Neurologic Disorder, Osteoarthritis (OA), Pneumonia, Pulmonary Embolus (PE) Additional Past Medical History / Comment(s): MIGRAINES. " ANITICOAGULANT LUPUS". PNEUMOTHRORAX. PERIPHERAL EDEMA. History of Any Multi-Drug Resistant Organisms: None Reported Past Surgical History: Adenoidectomy, Appendectomy, Tonsillectomy Additional Past Surgical History / Comment(s): HAILE FILTER . VEIN STRIPPING. STENTS IN "PELVIC AREA" NOVEMBER 2004. Past Anesthesia/Blood Transfusion Reactions: No Reported Reaction Smoking Status: Current every day smoker - Past Family History Mother Additional Family Medical History / Comment(s): heart disease, peripheral vascular disease. Father Family Medical History: Unable to Obtain Medications and Allergies Home Medications Medication Instructions Recorded Confirmed Type Atorvastatin [Lipitor] 80 mg PO HS 01/09/14 10/06/19 History Pregabalin [Lyrica] 300 mg PO BID 01/09/14 10/06/19 History Topiramate [Topamax] 25 mg PO BID 01/09/14 10/06/19 History Warfarin Sodium [Coumadin] 6 mg PO MOTUWETHFRSA 01/09/14 10/06/19 History metFORMIN HCL [Glucophage] 500 mg PO BID 01/09/14 10/06/19 History Insulin Degludec [Tresiba 72 unit SQ HS 11/15/17 10/06/19 History Flextouch U-200] Multivitamins, Thera [Multivitamin 1 tab PO DAILY 11/15/17 10/06/19 History (formulary)] Warfarin Sodium 9 mg PO AQUINO 05/10/18 10/06/19 History Albuterol Nebulized [Ventolin 2.5 mg INHALATION RT-QID PRN 08/15/19 10/06/19 History Nebulized] Docusate [Colace] 100 mg PO DAILY PRN 08/15/19 10/06/19 History Fluticasone Nasal [place] [Flonase 2 spr EA NOSTRIL DAILY 08/15/19 10/06/19 History Nasal [place]] Fluticasone/Umeclidin/Vilanter 1 puff INHALATION RT-DAILY 08/15/19 10/06/19 History [Trelegy Ellipta 100-62.5-25] Nortriptyline [Pamelor] 50 mg PO HS 08/15/19 10/06/19 History Omeprazole [PriLOSEC] 20 mg PO DAILY 08/15/19 10/06/19 History Tiotropium [place] [Spiriva] 1 cap INHALATION RT-DAILY 08/15/19 10/06/19 History diphenhydrAMINE [Benadryl] 25 mg PO DAILY 08/15/19 10/06/19 History Aspirin 81 mg PO DAILY 30 Days #30 chew 08/26/19 10/06/19 Rx Furosemide [Lasix] 40 mg PO DAILY 30 Days #30 tablet 02/17/20 03/29/20 Rx Amiodarone [Cordarone] 200 mg PO TID 30 Days #90 tab 09/04/19 10/06/19 Rx INSULIN ASPART (NovoLOG) [NovoLOG 16 unit SQ ACHS vial 09/04/19 10/06/19 Rx (formulary)] Metoprolol Tartrate [Lopressor] 25 mg PO BID 30 Days #60 tab 09/04/19 10/06/19 Rx oxyCODONE HCL/ACETAMINOPHEN 1 tab PO Q6HR PRN #12 tab 09/04/19 10/06/19 Rx [Percocet 10-325 mg] Budesonide-Formot 160-4.5 Mcg 2 puff INHALATION RT-BID 10/06/19 10/06/19 History [Symbicort 160-4.5 Mcg Inhaler] Allergies Allergy/AdvReac Type Severity Reaction Status Date / Time baclofen Allergy Unknown Verified 10/06/19 17:41 Physical Exam Vitals: Vital Signs Temp Pulse Pulse Resp BP BP Pulse Ox 10/06/19 18:20 97.6 F 70 18 128/78 98 10/06/19 17:40 85 18 111/77 98 10/06/19 16:44 92 18 112/87 99 10/06/19 15:13 18 10/06/19 14:58 97.9 F 76 18 88/56 97 Intake and Output 10/06/19 10/06/19 10/06/19 06:59 14:59 22:59 Other: Weight 127.006 kg 127.006 kg PHYSICAL EXAMINATION: Patient is lying in the bed comfortably, no acute distress, patient is currently lethargic and drowsy and arousable only with painful stimuli.. HEENT: Normocephalic. Neck is supple. Pupils reactive. Nostrils clear. Oral cavity is moist. Ears reveal no drainage. Neck reveals no JVD, carotid bruits, or thyromegaly. CHEST EXAMINATION: Trachea is central. Symmetrical expansion. Bibasilar diminished air entry. CARDIAC: Normal S1, S2 with no gallops. No murmurs . Irregularly irregular rhythm. ABDOMEN: Soft. Bowel sounds normal. No organomegaly. No abdominal bruits. Extremities: Bilateral lower extremity chronic edema and venous stasis changes. Left foot wound is dressed. No signs of infection noted.. No clubbing or cyanosis Neurologically patient is currently lethargic and obtunded. No loss focal deficits noted Skin: No rash or skin lesions. Psychiatric: Coperative. Nonsuicidal Musculoskeletal: No joint swelling or deformity. Results CBC & Chem 7: 10/06/19 15:00 10/06/19 15:00 Labs: Abnormal Lab Results - Last 24 Hours (Table) 10/06/19 10/06/19 10/06/19 Range/Units 15:00 15:00 15:00 RBC 4.09 L (4.30-5.90) m/uL Hgb 12.9 L (13.0-17.5) gm/dL RDW 16.0 H (11.5-15.5) % Plt Count 140 L (150-450) k/uL PT 23.3 H (9.0-12.0) sec INR 2.4 H (<1.2) APTT 30.4 H (22.0-30.0) sec Chloride 108 H (98-107) mmol/L BUN 31 H (9-20) mg/dL Creatinine 1.39 H (0.66-1.25) mg/dL Glucose 190 H (74-99) mg/dL POC Glucose (mg/dL) (75-99) mg/dL Calcium 7.9 L (8.4-10.2) mg/dL AST 115 H (17-59) U/L ALT 118 H (4-49) U/L Total Protein 5.8 L (6.3-8.2) g/dL Albumin 3.2 L (3.5-5.0) g/dL 10/06/19 10/06/19 Range/Units 15:12 20:49 RBC (4.30-5.90) m/uL Hgb (13.0-17.5) gm/dL RDW (11.5-15.5) % Plt Count (150-450) k/uL PT (9.0-12.0) sec INR (<1.2) APTT (22.0-30.0) sec Chloride (98-107) mmol/L BUN (9-20) mg/dL Creatinine (0.66-1.25) mg/dL Glucose (74-99) mg/dL POC Glucose (mg/dL) 170 H 208 H (75-99) mg/dL Calcium (8.4-10.2) mg/dL AST (17-59) U/L ALT (4-49) U/L Total Protein (6.3-8.2) g/dL Albumin (3.5-5.0) g/dL Thrombosis Risk Factor Assmnt - DVT/VTE Prophylaxis DVT/VTE Prophylaxis: Pharmacologic Prophylaxis ordered - Choose All That Apply Each Factor Represents 1 point: History of prior major surgery (<1month), Medical pt on bed rest Each Risk Factor Represents 2 Points: Age 61-74 years Other congenital or acquired thrombophilia - If yes, enter type in comment: No Thrombosis Risk Factor Assessment Total Risk Factor Score: 4 Thrombosis Risk Factor Assessment Level: Moderate Risk Assessment and Plan Assessment: Altered mental status likely due to metabolic and toxic encephalopathy with UDS positive for oxycodone, tricyclic antidepressants and marijuana. Possible TIA. CT showed no acute CVA. Mild acute on chronic CHF with systolic dysfunction Acute kidney injury Mild transaminitis History of left foot toe infection status post amputation Peripheral vascular disease and chronic venous stasis changes in the bilateral lower extremities. Diabetes type 2 insulin-dependent uncontrolled with hyperglycemia Chronic atrial fibrillation on anticoagulation with Coumadin History of PE 2 and low pulse anticoagulant Previous history of TIA 15 years ago Asthma/COPD Ongoing nicotine addiction Hypertension Hyperlipidemia Osteoarthritis Morbid obesity with BMI 35.0 DVT prophylaxis patient is already on Coumadin. Plan: Patient was given Narcan in the ER. Continue with gentle hydration and hold narcotic pain medications. CT head is negative for any acute CVA. Consider neurology evaluation. Monitor renal function. Patient is on follow-up with wound care clinic with history of left toe amputation and infection. No leukocytosis. No fever no chills. Continue with insulin regimen and also Coumadin dosing. Continue the home medications and follow up closely. Further recommendations based on the clinical course. Time with Patient: Greater than 30
[2019-10-07 06:10] LABS: Glucose,Whole Blood 65 mg/dL (75-99)
[2019-10-07] MEDS: INSULIN ASPART (NovoLOG) 100 UNIT/ML VIAL SQ SCH ×4 (06:12→20:28)
[2019-10-07 06:25] LABS: Glucose,Whole Blood 67 mg/dL (75-99)
[2019-10-07 06:40] LABS: Glucose,Whole Blood 101 mg/dL (75-99)
[2019-10-07 07:00] LABS: Calcium 7.9 mg/dL (8.4-10.2); Potassium 4.1 mmol/L (3.5-5.1); Total Bilirubin 0.4 mg/dL (0.2-1.3); Total Protein 5.6 g/dL (6.3-8.2)
[2019-10-07 07:04] LABS: Anisocytosis Slight; Basophils % (A) 0 %; Eosinophils # (A) 0.3 k/uL (0-0.7); Eosinophils % (A) 4 %; HCT 39.5 % (39.0-53.0); Lymphocytes # (A) 1.6 k/uL (1.0-4.8); Lymphocytes % (A) 19 %; MCH 32.3 pg (25.0-35.0); MCHC 32.9 g/dL (31.0-37.0); Macrocytosis Slight; Mean Platelet Volume 9.6; Monocytes # (A) 0.5 k/uL (0-1.0); Monocytes % (A) 6 %; Neutrophils # (A) 5.6 k/uL (1.3-7.7); Neutrophils % (A) 68 %; Platelet Count 132 k/uL (150-450); RBC 4.03 m/uL (4.30-5.90); WBC 8.2 k/uL (3.8-10.6)
--- NOTE | 2019-10-07 07:17 | XR ---
EXAMINATION TYPE: XR chest 1V DATE OF EXAM: 10/07/2019 COMPARISON: 10/06/2019 HISTORY: SOB, Follow Up FINDINGS: There progressive features of congestive failure with interstitial edema and scattered infiltrates no michael. Cardiomegaly and small pleural effusions identified. IMPRESSION: 1. Progressive features of congestive failure. Clinical correlation and follow up until resolution is recommended.
[2019-10-07] MEDS ORDERED: INSULIN ASPART (NovoLOG) 100 UNIT/ML VIAL SQ SCH (07:30)
[2019-10-07] MEDS: SYMBICORT 160-4.5 MCG INHALER INHALATION SCH ×2 (07:31→19:57)
[2019-10-07] MEDS: IPRATROPIUM 0.5 MG/2.5 ML NEBU INHALATION SCH ×4 (07:31→19:57)
[2019-10-07] MEDS ORDERED: NON FORMULARY DRUG (Tiotropium Bromide [Spiriva] 1 CAP) INHALATION SCH (08:00)
[2019-10-07] MEDS: MULTIVITAMINS, THERA 1 EACH TAB PO SCH (09:31)
[2019-10-07] MEDS: PANTOPRAZOLE 40 MG TABLET PO SCH (09:31)
[2019-10-07] MEDS: PREGABALIN 100 MG CAP PO SCH ×2 (09:31→21:18)
[2019-10-07] MEDS: ASPIRIN 81 MG PO SCH (09:32)
[2019-10-07] MEDS: FUROSEMIDE 40 MG TAB PO SCH (09:32)
[2019-10-07] MEDS: METOPROLOL TARTRATE 25 MG TAB PO SCH ×2 (09:32→21:18)
[2019-10-07] MEDS: AMIODARONE 200 MG TAB PO SCH ×3 (09:32→21:18)
[2019-10-07] MEDS: TOPIRAMATE 25 MG TAB PO SCH ×2 (09:32→21:18)
[2019-10-07] MEDS: FLUTICASONE 50MCG/SPRAY NASAL 16GM EA NOSTRIL SCH (09:34)
[2019-10-07] MEDS: oxyCODONE-APAP 10-325MG 1 EACH TAB PO PRN ×2 (09:38→21:18)
[2019-10-07] MEDS: diphenhydrAMINE 25 MG CAP PO SCH (11:29)
[2019-10-07 11:36] LABS: Glucose,Whole Blood 89 mg/dL (75-99)
[2019-10-07] MEDS: metFORMIN 500 MG TAB PO SCH ×2 (11:47→21:18)
--- NOTE | 2019-10-07 14:06 | P.CONS ---
History of Present Illness - Reason for Consult Consult date: 10/07/19 Wound care - History of Present Illness This is a 64-year-old male who is known to the wound care center being seen on for nonhealing ulceration of the left plantar and dorsal foot. Patient noticed in May a blister on on the left foot. It progressively opened up resulting in an ulceration. Patient was seen by his primary care doctor referred to the wound care center. Patient has history of peripheral vascular disease as well as arterial complication such as gastric bypass. Patient is a diabetic. His last hemoglobin A1c 8.8. His arterial studies were normal limits and his venous study showed a chronic DVT. Patient was fitted for an offloading boot. Past medical history significant for asthma, COPD, CVA, diabetes, hyperlipidemia, hypertension, osteoarthritis, pulmonary embolism, and acid reflux. Review of Systems Review Of Systems: Constitutional: No fever, no chills, no night sweats. No weight change. No weakness, fatigue or lethargy. No daytime sleepiness. Integumentary:reports wounds, no lesions. No rash or pruritus. No unusual bruising. No change in hair or nails. Past Medical History Past Medical History: Asthma, COPD, CVA/TIA, Diabetes Mellitus, Deep Vein Thrombosis (DVT), GERD/Reflux, Hyperlipidemia, Hypertension, Neurologic Disorder, Osteoarthritis (OA), Pneumonia, Pulmonary Embolus (PE) Additional Past Medical History / Comment(s): MIGRAINES. " ANITICOAGULANT LUPUS". PNEUMOTHRORAX. PERIPHERAL EDEMA. History of Any Multi-Drug Resistant Organisms: None Reported Past Surgical History: Adenoidectomy, Appendectomy, Tonsillectomy Additional Past Surgical History / Comment(s): HAILE FILTER . VEIN STRIPPING. STENTS IN "PELVIC AREA" NOVEMBER 2004. Past Anesthesia/Blood Transfusion Reactions: No Reported Reaction Smoking Status: Current every day smoker - Past Family History Mother Additional Family Medical History / Comment(s): heart disease, peripheral vascul ar disease. Father Family Medical History: Unable to Obtain Medications and Allergies Home Medications Medication Instructions Recorded Confirmed Type Atorvastatin [Lipitor] 80 mg PO HS 01/09/14 10/06/19 History Pregabalin [Lyrica] 300 mg PO BID 01/09/14 10/06/19 History Topiramate [Topamax] 25 mg PO BID 01/09/14 10/06/19 History Warfarin Sodium [Coumadin] 6 mg PO MOTUWETHFRSA 01/09/14 10/06/19 History metFORMIN HCL [Glucophage] 500 mg PO BID 01/09/14 10/06/19 History Insulin Degludec [Tresiba 72 unit SQ HS 11/15/17 10/06/19 History Flextouch U-200] Multivitamins, Thera [Multivitamin 1 tab PO DAILY 11/15/17 10/06/19 History (formulary)] Warfarin Sodium 9 mg PO AQUINO 05/10/18 10/06/19 History Albuterol Nebulized [Ventolin 2.5 mg INHALATION RT-QID PRN 08/15/19 10/06/19 History Nebulized] Docusate [Colace] 100 mg PO DAILY PRN 08/15/19 10/06/19 History Fluticasone Nasal [place] [Flonase 2 spr EA NOSTRIL DAILY 08/15/19 10/06/19 History Nasal [place]] Fluticasone/Umeclidin/Vilanter 1 puff INHALATION RT-DAILY 08/15/19 10/06/19 History [Trelegy Ellipta 100-62.5-25] Nortriptyline [Pamelor] 50 mg PO HS 08/15/19 10/06/19 History Omeprazole [PriLOSEC] 20 mg PO DAILY 08/15/19 10/06/19 History Tiotropium [place] [Spiriva] 1 cap INHALATION RT-DAILY 08/15/19 10/06/19 History diphenhydrAMINE [Benadryl] 25 mg PO DAILY 08/15/19 10/06/19 History Aspirin 81 mg PO DAILY 30 Days #30 chew 08/26/19 10/06/19 Rx Furosemide [Lasix] 40 mg PO DAILY 30 Days #30 tablet 08/26/19 10/06/19 Rx Amiodarone [Cordarone] 200 mg PO TID 30 Days #90 tab 09/04/19 10/06/19 Rx INSULIN ASPART (NovoLOG) [NovoLOG 16 unit SQ ACHS vial 09/04/19 10/06/19 Rx (formulary)] Metoprolol Tartrate [Lopressor] 25 mg PO BID 30 Days #60 tab 09/04/19 10/06/19 Rx oxyCODONE HCL/ACETAMINOPHEN 1 tab PO Q6HR PRN #12 tab 09/04/19 10/06/19 Rx [Percocet 10-325 mg] Budesonide-Formot 160-4.5 Mcg 2 puff INHALATION RT-BID 10/06/19 10/06/19 History [Symbicort 160-4.5 Mcg Inhaler] Allergies Allergy/AdvReac Type Severity Reaction Status Date / Time baclofen Allergy Unknown Verified 10/06/19 17:41 Physical Exam Vitals: Vital Signs Temp Pulse Pulse Resp BP BP Pulse Ox 10/07/19 11:28 97.5 F L 65 20 88/57 92 L 10/07/19 11:16 84 10/07/19 11:05 84 10/07/19 08:00 97.5 F L 85 18 100/68 92 L 10/07/19 07:44 76 10/07/19 07:32 76 10/07/19 04:00 97.9 F 80 18 106/83 96 10/07/19 00:00 98 F 70 20 105/71 95 10/06/19 20:00 97.8 F 61 18 102/66 100 10/06/19 18:20 97.6 F 70 18 128/78 98 10/06/19 17:40 85 18 111/77 98 10/06/19 16:44 92 18 112/87 99 10/06/19 15:13 18 10/06/19 14:58 97.9 F 76 18 88/56 97 Intake and Output 10/06/19 10/07/19 10/07/19 22:59 06:59 14:59 Intake Total 240 280 Output Total 400 500 Balance -160 -220 Intake: IV 160 Sodium Chloride 0.9% 1, 160 000 ml @ 80 mls/hr IV . [id number] [facility] Rx#:[id number] Oral 240 120 Output: Urine 400 500 Other: Voiding Method Urinal Urinal # Voids 1 0 # Bowel Movements 1 Weight 127.006 kg 128.5 kg Physical exam: General Appearance: Alert, cooperative, no distress, appears stated age. Skin: Left plantar foot and dorsal foot ulceration measuring 5.4 x 0.9 x 0.7 cm. There is some amount of serosanguineous drainage. Wound margin is expected. There is pink granulation within the wound bed. Adherent Slough is noted., Ulceration to the right Planter great toe. Measuring 0.6 x 0.4 x 0.1 cm wound is Limited to skin breakdown noted tunneling or undermining. Small amount of serous drainage noted. The wound margins distinct with LN attached to the wound bed. There is granulation within the wound bed. No necrotic tissue noted. all other Skin color, texture, tugor normal, no rashes or lesions. Neurologic: Alert oriented x3 Results CBC & Chem 7: 10/07/19 05:33 10/07/19 05:33 Labs: Abnormal Lab Results - Last 24 Hours (Table) 10/06/19 10/06/19 10/06/19 Range/Units 15:00 15:00 15:00 RBC 4.09 L (4.30-5.90) m/uL Hgb 12.9 L (13.0-17.5) gm/dL RDW 16.0 H (11.5-15.5) % Plt Count 140 L (150-450) k/uL PT 23.3 H (9.0-12.0) sec INR 2.4 H (<1.2) APTT 30.4 H (22.0-30.0) sec Chloride 108 H (98-107) mmol/L BUN 31 H (9-20) mg/dL Creatinine 1.39 H (0.66-1.25) mg/dL Glucose 190 H (74-99) mg/dL POC Glucose (mg/dL) (75-99) mg/dL Calcium 7.9 L (8.4-10.2) mg/dL AST 115 H (17-59) U/L ALT 118 H (4-49) U/L Total Protein 5.8 L (6.3-8.2) g/dL Albumin 3.2 L (3.5-5.0) g/dL Ur Oxycodone Screen (NotDetected) U Tricyclic Antidepress (NotDetected) U Marijuana (THC) Screen (NotDetected) 10/06/19 10/06/19 10/06/19 Range/Units 15:12 20:49 22:40 RBC (4.30-5.90) m/uL Hgb (13.0-17.5) gm/dL RDW (11.5-15.5) % Plt Count (150-450) k/uL PT (9.0-12.0) sec INR (<1.2) APTT (22.0-30.0) sec Chloride (98-107) mmol/L BUN (9-20) mg/dL Creatinine (0.66-1.25) mg/dL Glucose (74-99) mg/dL POC Glucose (mg/dL) 170 H 208 H (75-99) mg/dL Calcium (8.4-10.2) mg/dL AST (17-59) U/L ALT (4-49) U/L Total Protein (6.3-8.2) g/dL Albumin (3.5-5.0) g/dL Ur Oxycodone Screen Detected H (NotDetected) U Tricyclic Antidepress Detected H (NotDetected) U Marijuana (THC) Screen Detected H (NotDetected) 10/07/19 10/07/19 10/07/19 Range/Units 05:33 05:33 06:08 RBC 4.03 L (4.30-5.90) m/uL Hgb (13.0-17.5) gm/dL RDW 16.0 H (11.5-15.5) % Plt Count 132 L (150-450) k/uL PT (9.0-12.0) sec INR (<1.2) APTT (22.0-30.0) sec Chloride 109 H (98-107) mmol/L BUN 27 H (9-20) mg/dL Creatinine (0.66-1.25) mg/dL Glucose 52 L (74-99) mg/dL POC Glucose (mg/dL) 65 L (75-99) mg/dL Calcium 7.9 L (8.4-10.2) mg/dL AST 167 H (17-59) U/L ALT 166 H (4-49) U/L Total Protein 5.6 L (6.3-8.2) g/dL Albumin 3.0 L (3.5-5.0) g/dL Ur Oxycodone Screen (NotDetected) U Tricyclic Antidepress (NotDetected) U Marijuana (THC) Screen (NotDetected) 10/07/19 10/07/19 Range/Units 06:24 06:38 RBC (4.30-5.90) m/uL Hgb (13.0-17.5) gm/dL RDW (11.5-15.5) % Plt Count (150-450) k/uL PT (9.0-12.0) sec INR (<1.2) APTT (22.0-30.0) sec Chloride (98-107) mmol/L BUN (9-20) mg/dL Creatinine (0.66-1.25) mg/dL Glucose (74-99) mg/dL POC Glucose (mg/dL) 67 L 101 H (75-99) mg/dL Calcium (8.4-10.2) mg/dL AST (17-59) U/L ALT (4-49) U/L Total Protein (6.3-8.2) g/dL Albumin (3.5-5.0) g/dL Ur Oxycodone Screen (NotDetected) U Tricyclic Antidepress (NotDetected) U Marijuana (THC) Screen (NotDetected) Assessment and Plan (1) Non-pressure chronic ulcer of other part of left foot with fat layer exposed Current Visit: Yes Status: Acute Code(s): L97.522 - NON-PRS CHRONIC ULCER OTH PRT LEFT FOOT W FAT LAYER EXPOSED SNOMED Code(s): 392352211 (2) Diabetic foot ulcer Current Visit: No Status: Acute Code(s): E11.621 - TYPE 2 DIABETES MELLITUS WITH FOOT ULCER; L97.509 - NON-PRESSURE CHRONIC ULCER OTH PRT UNSP FOOT W UNSP SEVERITY SNOMED Code(s): 567142994 Plan: Left Planter foot apply observed to silver rope, saline moistened gauze, dry gauze, rolled gauze and secure with paper tape. Secure with a Ruperto wrap. Right plantar great toe observed to silver rope, saline moistened gauze, dry gauze, rolled gauze and secure with paper tape. Change dressings every other day. Patient to continue his wound care visits next appointment is scheduled for October 20 at 2:30. Thank you kindly for the consultation. Any questions please contact the wound care center DNP note has been reviewed and discussed with Dr. Bates and the impression and plan of care has been directed as dictated.
[2019-10-07 14:45] LABS: Hemoglobin A1C 9.4 % (4.0-6.0)
[2019-10-07 17:17] LABS: Glucose,Whole Blood 92 mg/dL (75-99)
[2019-10-07] MEDS ORDERED: WARFARIN 3 MG TAB PO SCH (18:00)
[2019-10-07 20:24] LABS: Glucose,Whole Blood 104 mg/dL (75-99)
[2019-10-07] MEDS ORDERED: INSULIN DETEMIR (LEVEMIR) 100 UNIT/ML SYR SQ SCH (21:00)
[2019-10-07] MEDS: INSULIN DETEMIR (LEVEMIR) 100 UNIT/ML SYR SQ SCH (21:12)
[2019-10-07] MEDS: ATORVASTATIN 80 MG TAB PO SCH (21:18)
[2019-10-07] MEDS: NORTRIPTYLINE 25 MG CAP PO SCH (21:18)
[2019-10-08 04:48] VITALS: RESP 18
[2019-10-08] MEDS: oxyCODONE-APAP 10-325MG 1 EACH TAB PO PRN ×2 (04:54→11:04)
[2019-10-08 06:18] LABS: Glucose,Whole Blood 85 mg/dL (75-99)
[2019-10-08] MEDS: INSULIN ASPART (NovoLOG) 100 UNIT/ML VIAL SQ SCH ×2 (06:48→11:40)
[2019-10-08] MEDS: SYMBICORT 160-4.5 MCG INHALER INHALATION SCH (07:05)
[2019-10-08] MEDS: IPRATROPIUM 0.5 MG/2.5 ML NEBU INHALATION SCH ×3 (07:05→16:22)
[2019-10-08] MEDS: TOPIRAMATE 25 MG TAB PO SCH (08:47)
[2019-10-08] MEDS: PREGABALIN 100 MG CAP PO SCH (08:47)
[2019-10-08] MEDS: FUROSEMIDE 40 MG TAB PO SCH (08:47)
[2019-10-08] MEDS: PANTOPRAZOLE 40 MG TABLET PO SCH (08:47)
[2019-10-08] MEDS: METOPROLOL TARTRATE 25 MG TAB PO SCH (08:48)
[2019-10-08] MEDS: ASPIRIN 81 MG PO SCH (08:48)
[2019-10-08] MEDS: FLUTICASONE 50MCG/SPRAY NASAL 16GM EA NOSTRIL SCH (08:48)
[2019-10-08] MEDS: AMIODARONE 200 MG TAB PO SCH ×2 (08:48→15:05)
[2019-10-08] MEDS: metFORMIN 500 MG TAB PO SCH (08:48)
[2019-10-08] MEDS: MULTIVITAMINS, THERA 1 EACH TAB PO SCH (08:48)
[2019-10-08 09:02] VITALS: BMI 39.4
[2019-10-08] MEDS: diphenhydrAMINE 25 MG CAP PO SCH (10:28)
[2019-10-08 11:03] VITALS: BP 114/74; TEMP 97.5
[2019-10-08 11:13] VITALS: PULSE 84
[2019-10-08 11:39] LABS: Glucose,Whole Blood 119 mg/dL (75-99)
--- NOTE | 2019-10-10 09:33 | CDI ---
Documentation Clarification Form Date: 10/10/19 From: Malu Gill CCS Phone: If you have a question about this query, please contact Joanie Bhatt, Can Worker at [phone] between 8am and 5pm. Admit Date: 10/06/19 Discharge Date:10/08/19 Patient Name: Checo Quijano Visit Number: [id number] ATTENTION: The Clinical Documentation Specialists (CDI) and [facility] Coding Staff appreciate your assistance in clarifying documentation. Please respond to the clarification below the line at the bottom and electronically sign. The CDI & [facility] Coding staff will review the response and follow-up if needed. Please note: Queries are made part of the Legal Health Record. If you have any questions, please contact the author of this message via ITS. Dear Dr. Huang, Encephalopathy is documented in the H&P, ED. History/Risk Factors: DM uncontrolled, CHF, HTN, COPD, [place] Clinical Indicators: AMS, Confused Labs: Positive for Oxycodone, Tricyclic Antidepressants, Marijuana CT/MRI Brain: No acute intracranial hemorrhage or midline shift.There is diffuse age-related cerebral atrophy and mild burden chronic small vessel ischemic change noted. Treatment: Narcan 1, 0.4, 0.2 mg IV In your professional opinion, can you please clarify the specific type of Encephalopathy, if known? Hypertensive Encephalopathy Metabolic Encephalopathy due to Toxic Encephalopathy as adverse effect of correctly taken medications Toxic Encephalopathy due to accidental overdose of medication TIA Other, please specify Unable to determine Toxic Encephalopathy due to accidental overdose of medication MTDD
== END 2019-10-08 16:11 | disposition home or self-care (01) | DRG 917 ==
LOC: EC 14:56 → 3SCARD 17:04
PROVIDERS: ADMIT Internal Medicine; ATTEND Internal Medicine
DX: T40.2X1A Poisoning by other opioids, accidental (unintentional), initial encounter (principal); G92 Toxic encephalopathy; I50.23 Acute on chronic systolic (congestive) heart failure; N17.9 Acute kidney failure, unspecified; I48.20 Chronic atrial fibrillation, unspecified; L97.522 Non-pressure chronic ulcer of other part of left foot with fat layer exposed; I11.0 Hypertensive heart disease with heart failure; E11.621 Type 2 diabetes mellitus with foot ulcer; E11.51 Type 2 diabetes mellitus with diabetic peripheral angiopathy without gangrene; T43.011A Poisoning by tricyclic antidepressants, accidental (unintentional), initial encounter; R74.0 Nonspecific elevation of levels of transaminase and lactic acid dehydrogenase [LDH]; E11.65 Type 2 diabetes mellitus with hyperglycemia; J44.9 Chronic obstructive pulmonary disease, unspecified; F17.200 Nicotine dependence, unspecified, uncomplicated; E78.5 Hyperlipidemia, unspecified; M19.90 Unspecified osteoarthritis, unspecified site; E66.01 Morbid (severe) obesity due to excess calories; G31.9 Degenerative disease of nervous system, unspecified; G43.909 Migraine, unspecified, not intractable, without status migrainosus; I87.8 Other specified disorders of veins; R40.2362 Coma scale, best motor response, obeys commands, at arrival to emergency department; R40.2142 Coma scale, eyes open, spontaneous, at arrival to emergency department; R40.2252 Coma scale, best verbal response, oriented, at arrival to emergency department; K21.9 Gastro-esophageal reflux disease without esophagitis; Z68.39 Body mass index [BMI] 39.0-39.9, adult; Z79.899 Other long term (current) drug therapy; Z79.82 Long term (current) use of aspirin; Z79.51 Long term (current) use of inhaled steroids; Z79.4 Long term (current) use of insulin; Z79.01 Long term (current) use of anticoagulants; Z86.73 Personal history of transient ischemic attack (TIA), and cerebral infarction without residual deficits; Z86.711 Personal history of pulmonary embolism; Z89.422 Acquired absence of other left toe(s); Z86.718 Personal history of other venous thrombosis and embolism; Z87.01 Personal history of pneumonia (recurrent); Z90.49 Acquired absence of other specified parts of digestive tract; Z98.890 Other specified postprocedural states; Z95.828 Presence of other vascular implants and grafts; Z86.19 Personal history of other infectious and parasitic diseases; Z88.8 Allergy status to other drugs, medicaments and biological substances; Z82.49 Family history of ischemic heart disease and other diseases of the circulatory system
CPT/HCPCS: 36415; 70450; 71045; 80053; 80306; 80320; 80329; 81003; 83036; 83520; 83880; 84443; 84484; 85025; 85610; 85730; 93005; 94640; 96361; 96374; 99285

== ENCOUNTER 2019-10-30 19:49 | Inpatient (IN) | payer MEDICARE ==
[2019-10-30] MEDS ORDERED: MORPHINE SULFATE 4 MG/ML SYRINGE IV STA (20:15)
[2019-10-30] MEDS ORDERED: SODIUM CHLORIDE 0.9% 1,000 ML IV ONE (20:15)
--- NOTE | 2019-10-30 20:19 | ED ---
Fall HPI - General Source: patient, EMS, RN notes reviewed, old records reviewed Mode of arrival: EMS <AmaliamaricarmendionneAilin - Last Filed: 10/31/19 00:32> <Jose Ferraro - Last Filed: 11/02/19 07:01> - General Chief Complaint: Fall Stated Complaint: Fall, Hip Injury Time Seen by Provider: 10/30/19 19:56 - History of Present Illness Initial Comments: Patient is a 64-year-old male presents emergency Department today with chief complaint of tripping and falling over a step stool on his house. He reports he landed onto his right hip. Patient states that he has had minorly but denies any loss of consciousness. He is on Coumadin. Patient states that he has pain of her hip was unable to ambulate. EMS was called and brought the Patient here. Patient reports that he has a history of peripheral arterial disease, neuropathy, diabetes. He does not take his insulin today. Upon arrival she also is further history the Patient has been having some dyspnea on exertion, also complaining of abnormal blood pressures and heart rate since his last admission to the hospital. He is scheduled to see Dr. Guillermo tomorrow for a traffic monitor specialist. (Ailin Chambers) - Related Data Home Medications Medication Instructions Recorded Confirmed Atorvastatin [Lipitor] 80 mg PO HS 01/09/14 10/31/19 Pregabalin [Lyrica] 300 mg PO BID 01/09/14 10/31/19 Topiramate [Topamax] 25 mg PO BID 01/09/14 10/31/19 Warfarin Sodium [Coumadin] 6 mg PO [id number] 01/09/14 10/31/19 metFORMIN HCL [Glucophage] 500 mg PO BID 01/09/14 10/31/19 Multivitamins, Thera [Multivitamin 1 tab PO DAILY 11/15/17 10/31/19 (formulary)] Warfarin Sodium 3 mg PO SUTH 05/10/18 10/31/19 Albuterol Nebulized [Ventolin 2.5 mg INHALATION RT-DAILY PRN 08/15/19 10/31/19 Nebulized] Docusate [Colace] 100 mg PO DAILY PRN 08/15/19 10/31/19 Nortriptyline [Pamelor] 50 mg PO HS 08/15/19 10/31/19 Omeprazole [PriLOSEC] 20 mg PO BID 08/15/19 10/31/19 Celecoxib [CeleBREX] 200 mg PO DIRECTED 10/30/19 10/31/19 Insulin NPH Human Isophane 70 units SQ DAILY 10/30/19 10/31/19 [NovoLIN N] Lisinopril 20 mg PO DAILY 10/30/19 10/30/19 Loratadine 10 mg PO DAILY 10/30/19 10/31/19 Metoprolol Tartrate [Lopressor] 50 mg PO BID 10/30/19 10/31/19 Spiriva Respimat 1.25mcg/Leland 2 spray INHALATION RT-BID 10/31/19 10/31/19 oxyCODONE-APAP 10-325MG [Percocet 1 tab PO Q6HR PRN 10/31/19 10/31/19 10-325 mg] Previous Rx's Medication Instructions Recorded Aspirin 81 mg PO DAILY 30 Days #30 chew 08/26/19 Furosemide [Lasix] 40 mg PO DAILY 30 Days #30 tablet 08/26/19 Amiodarone [Cordarone] 200 mg PO TID 30 Days #90 tab 09/04/19 Allergies Allergy/AdvReac Type Severity Reaction Status Date / Time baclofen Allergy Unknown Verified 10/31/19 09:51 Review of Systems ROS Other: All systems not noted in ROS Statement are negative. <Ailin Chambers - Last Filed: 10/31/19 00:32> ROS Other: All systems not noted in ROS Statement are negative. <Jose Ferraro - Last Filed: 11/02/19 07:01> ROS Statement: Those systems with pertinent positive or pertinent negative responses have been documented in the HPI. Past Medical History Past Medical History: Asthma, COPD, CVA/TIA, Diabetes Mellitus, Deep Vein Thrombosis (DVT), GERD/Reflux, Hyperlipidemia, Hypertension, Neurologic Disorder, Osteoarthritis (OA), Pneumonia, Pulmonary Embolus (PE) Additional Past Medical History / Comment(s): MIGRAINES. " ANITICOAGULANT LUPUS". PNEUMOTHRORAX. PERIPHERAL EDEMA. History of Any Multi-Drug Resistant Organisms: None Reported Past Surgical History: Adenoidectomy, Appendectomy, Tonsillectomy Additional Past Surgical History / Comment(s): HAILE FILTER . VEIN STRIPPING. STENTS IN "PELVIC AREA" NOVEMBER 2004. Past Anesthesia/Blood Transfusion Reactions: No Reported Reaction Past Psychological History: No Psychological Hx Reported Smoking Status: Current every day smoker - Past Family History Mother Additional Family Medical History / Comment(s): heart disease, peripheral vascular disease. Father Family Medical History: Unable to Obtain <Shauna Chambersily - Last Filed: 10/31/19 00:32> General Exam Limitations: physical limitation Head exam: Present: atraumatic, normocephalic, normal inspection Eye exam: Present: normal appearance, PERRL, EOMI. Absent: scleral icterus, conjunctival injection, periorbital swelling ENT exam: Present: normal exam, mucous membranes moist Neck exam: Present: normal inspection. Absent: tenderness, meningismus, lym phadenopathy Respiratory exam: Present: decreased breath sounds (dimiminsed lower lung swartz). Absent: normal lung sounds bilaterally, respiratory distress, wheezes, rales, rhonchi, stridor Cardiovascular Exam: Present: regular rate, normal rhythm, normal heart sounds. Absent: systolic murmur, diastolic murmur, rubs, gallop, clicks Extremities exam: Present: full ROM, normal capillary refill, other (Patient has blocked foot wrapped with Ruperto wrap and wound care placed this. ). Absent: normal inspection, tenderness, pedal edema, joint swelling, calf tenderness Right Hip exam: Present: normal inspection, tenderness (over greater trochanter, no evidence of contusion ) Upper Leg exam: Present: normal inspection, full ROM Knee exam: Present: normal inspection, full ROM Lower Leg exam: Present: normal inspection, full ROM Ankle exam: Present: normal inspection, full ROM Foot/Toe exam: Present: tenderness. Absent: normal inspection Neurovascular tendon exam: Present: no vascular compromise (able to auscletate doppler pulse of Posterior tibial and dorsalis pedis) Gait: observed and normal Back exam: Present: normal inspection Neurological exam: Present: alert, oriented X3, CN II-XII intact Psychiatric exam: Present: normal affect, normal mood <Ailin Chambers - Last Filed: 10/31/19 00:32> Course <Ailin Chambers - Last Filed: 10/31/19 00:32> Vital Signs 10/30/19 10/30/19 10/30/19 19:55 21:38 21:40 Temperature 97.6 F Pulse Rate 54 L 51 L Respiratory 18 14 16 Rate Blood Pressure 118/76 144/98 O2 Sat by Pulse 95 Oximetry 10/30/19 10/30/19 10/31/19 22:47 23:56 01:07 Temperature 97.6 F Pulse Rate 47 L 50 L 46 L Respiratory 30 H 22 22 Rate Blood Pressure 131/99 97/82 93/52 O2 Sat by Pulse 96 96 76 L Oximetry - Reevaluation(s) Reevaluation #1: 10/30/19 21:42 Patient was in room and approximate 30 minutes after receiving morphine Patient was found be somewhat hypoxic, not responsive to nursing staff. I was alerted. Brought into the patient's room and ordered narcan. Patient transfered to T1 after non responsive episode. Patient was given narcan and quickly responsive and then combative. (Ailin Chambers) Medical Decision Making - Lab Data Result diagrams: 10/30/19 20:34 10/30/19 23:55 - Radiology Data Radiology results: report reviewed <Ailin Chambers - Last Filed: 10/31/19 00:32> - Lab Data Result diagrams: 11/01/19 06:36 11/01/19 06:36 <Jose Ferraro - Last Filed: 11/02/19 07:01> - Medical Decision Making Patient is a 64 year old male with multiple comorbidities. He has Wound care follow-up, history of PEs A. fib, TIAs. He was brought in with chief complaint of right hip pain after a fall after he tripped over a step stool. Patient also reports he did hit his head with the fall. Patient initially arrived alert and oriented. He mainly complained of right hip pain and was unable to ambulate. Patient was given dose of IV pain medicine and sent to x-ray. When Patient returned Patient was noted by staff to be staring off and unarousable. They seem to be related to narcotic dose of 4 mgs morphine. Patient was evaluated by myself unresponsive and was hypoxic and was sent to the trauma bay. He was given Narcan and quickly aroused. He continued in have fluctuating oxygenation levels and continued to be somewhat somnolent and when sleeping was more hypoxic like sleep apnea. He was placed on high flow oxygen. Patient according to family is scheduled tomorrow to have a heart monitor placed by Dr. Heaton. The report that since his last admission he's been having abnormal heart rate and blood pressures and has been complaining of some chest pain on exertion. At this time with the complaint of fall x-rays show no fracture he was still unable to ambulate after tries to ambulate and CT was completed and shows no evidence of fracture. Evidence of a likely hematoma over the right posterior hip. Given patient's inability to ambulate with a right hip contusion, multiple comorbidities, bradycardia on EKG patient will be admitted with consult to PT for ambulation and cardiology for follow up due to occasional dyspnea on exertion and bradycardia. (Ailin Chambers) I saw this patient in conjunction with the physician bricklayer's assistant. I performed independent history and physical exam. Agree with case management. (Jose Ferraro) - Lab Data Lab Results 10/30/19 10/30/19 10/30/19 Range/Units 20:34 20:34 20:34 WBC 7.2 (3.8-10.6) k/uL RBC 4.04 L (4.30-5.90) m/uL Hgb 12.5 L (13.0-17.5) gm/dL Hct 40.6 (39.0-53.0) % MCV 100.6 H (80.0-100.0) fL MCH 31.0 (25.0-35.0) pg MCHC 30.8 L (31.0-37.0) g/dL RDW 15.5 (11.5-15.5) % Plt Count 194 (150-450) k/uL Neutrophils % (Manual) 70 % Lymphocytes % (Manual) 25 % Monocytes % (Manual) 5 % Eosinophils % (Manual) % Neutrophils # (Manual) 5.04 (1.3-7.7) k/uL Lymphocytes # (Manual) 1.80 (1.0-4.8) k/uL Monocytes # (Manual) 0.36 (0-1.0) k/uL Eosinophils # (Manual) (0-0.7) k/uL Nucleated RBCs 0 (0-0) /100 WBC Manual Slide Review Performed Hypochromasia Slight Poikilocytosis (manual Anisocytosis (manual) Present Macrocytosis Slight PT 37.5 H (9.0-12.0) sec INR 3.8 H (<1.2) APTT 36.6 H (22.0-30.0) sec Sample Site ABG pH (7.35-7.45) ABG pCO2 (35-45) mmHg ABG pO2 (83-108) mmHg ABG HCO3 (21-25) mmol/L ABG Total CO2 (19-24) mmol/L ABG O2 Saturation (94-97) % ABG Base Excess mmol/L Ricardo Test FiO2 % Sodium 137 (137-145) mmol/L Potassium 5.9 H (3.5-5.1) mmol/L Chloride 105 (98-107) mmol/L Carbon Dioxide 25 (22-30) mmol/L Anion Gap 7 mmol/L BUN 40 H (9-20) mg/dL Creatinine 1.50 H (0.66-1.25) mg/dL Est GFR (CKD-EPI)AfAm 57 (>60 ml/min/1.73 sqM) Est GFR (CKD-EPI)NonAf 49 (>60 ml/min/1.73 sqM) Glucose 256 H (74-99) mg/dL POC Glucose (mg/dL) (75-99) mg/dL POC Glu Motor Installer ID Calcium 8.2 L (8.4-10.2) mg/dL Total Bilirubin 0.9 (0.2-1.3) mg/dL AST 85 H (17-59) U/L ALT 132 H (4-49) U/L Alkaline Phosphatase 159 H (38-126) U/L Troponin I (0.000-0.034) ng/mL NT-Pro-B Natriuret Pep pg/mL Total Protein 6.8 (6.3-8.2) g/dL Albumin 3.5 (3.5-5.0) g/dL TSH (0.465-4.680) mIU/L Blood Type Blood Type Recheck Bld Type Recheck Status Antibody Screen Spec Expiration Date 10/30/19 10/30/19 10/30/19 Range/Units 20:34 20:34 20:34 WBC (3.8-10.6) k/uL RBC (4.30-5.90) m/uL Hgb (13.0-17.5) gm/dL Hct (39.0-53.0) % MCV (80.0-100.0) fL MCH (25.0-35.0) pg MCHC (31.0-37.0) g/dL RDW (11.5-15.5) % Plt Count (150-450) k/uL Neutrophils % (Manual) % Lymphocytes % (Manual) % Monocytes % (Manual) % Eosinophils % (Manual) % Neutrophils # (Manual) (1.3-7.7) k/uL Lymphocytes # (Manual) (1.0-4.8) k/uL Monocytes # (Manual) (0-1.0) k/uL Eosinophils # (Manual) (0-0.7) k/uL Nucleated RBCs (0-0) /100 WBC Manual Slide Review Hypochromasia Poikilocytosis (manual Anisocytosis (manual) Macrocytosis PT (9.0-12.0) sec INR (<1.2) APTT (22.0-30.0) sec Sample Site ABG pH (7.35-7.45) ABG pCO2 (35-45) mmHg ABG pO2 (83-108) mmHg ABG HCO3 (21-25) mmol/L ABG Total CO2 (19-24) mmol/L ABG O2 Saturation (94-97) % ABG Base Excess mmol/L Ricardo Test FiO2 % Sodium (137-145) mmol/L Potassium (3.5-5.1) mmol/L Chloride (98-107) mmol/L Carbon Dioxide (22-30) mmol/L Anion Gap mmol/L BUN (9-20) mg/dL Creatinine (0.66-1.25) mg/dL Est GFR (CKD-EPI)AfAm (>60 ml/min/1.73 sqM) Est GFR (CKD-EPI)NonAf (>60 ml/min/1.73 sqM) Glucose (74-99) mg/dL POC Glucose (mg/dL) (75-99) mg/dL POC Glu Motor Installer ID Calcium (8.4-10.2) mg/dL Total Bilirubin (0.2-1.3) mg/dL AST (17-59) U/L ALT (4-49) U/L Alkaline Phosphatase (38-126) U/L Troponin I 0.014 (0.000-0.034) ng/mL NT-Pro-B Natriuret Pep 2020 pg/mL Total Protein (6.3-8.2) g/dL Albumin (3.5-5.0) g/dL TSH (0.465-4.680) mIU/L Blood Type A Positive Blood Type Recheck A Pos Bld Type Recheck Status No Antibody Screen NEGATIVE Spec Expiration Date 11/02/2019 - 233310/30/19 10/30/19 10/31/19 Range/Units 22:32 23:55 02:24 WBC (3.8-10.6) k/uL RBC (4.30-5.90) m/uL Hgb (13.0-17.5) gm/dL Hct (39.0-53.0) % MCV (80.0-100.0) fL MCH (25.0-35.0) pg MCHC (31.0-37.0) g/dL RDW (11.5-15.5) % Plt Count (150-450) k/uL Neutrophils % (Manual) % Lymphocytes % (Manual) % Monocytes % (Manual) % Eosinophils % (Manual) % Neutrophils # (Manual) (1.3-7.7) k/uL Lymphocytes # (Manual) (1.0-4.8) k/uL Monocytes # (Manual) (0-1.0) k/uL Eosinophils # (Manual) (0-0.7) k/uL Nucleated RBCs (0-0) /100 WBC Manual Slide Review Hypochromasia Poikilocytosis (manual Anisocytosis (manual) Macrocytosis PT (9.0-12.0) sec INR (<1.2) APTT (22.0-30.0) sec Sample Site r rad ABG pH 7.32 L (7.35-7.45) ABG pCO2 42 (35-45) mmHg ABG pO2 243 H (83-108) mmHg ABG HCO3 22 (21-25) mmol/L ABG Total CO2 23 (19-24) mmol/L ABG O2 Saturation 100.0 H (94-97) % ABG Base Excess -4.5 mmol/L Ricardo Test Yes FiO2 100 % Sodium (137-145) mmol/L Potassium 4.9 (3.5-5.1) mmol/L Chloride (98-107) mmol/L Carbon Dioxide (22-30) mmol/L Anion Gap mmol/L BUN (9-20) mg/dL Creatinine (0.66-1.25) mg/dL Est GFR (CKD-EPI)AfAm (>60 ml/min/1.73 sqM) Est GFR (CKD-EPI)NonAf (>60 ml/min/1.73 sqM) Glucose (74-99) mg/dL POC Glucose (mg/dL) (75-99) mg/dL POC Glu Motor Installer ID Calcium (8.4-10.2) mg/dL Total Bilirubin (0.2-1.3) mg/dL AST (17-59) U/L ALT (4-49) U/L Alkaline Phosphatase (38-126) U/L Troponin I <0.012 (0.000-0.034) ng/mL NT-Pro-B Natriuret Pep pg/mL Total Protein (6.3-8.2) g/dL Albumin (3.5-5.0) g/dL TSH (0.465-4.680) mIU/L Blood Type Blood Type Recheck Bld Type Recheck Status Antibody Screen Spec Expiration Date 10/31/19 10/31/19 10/31/19 Range/Units 08:44 08:44 08:44 WBC 7.1 (3.8-10.6) k/uL RBC 3.71 L (4.30-5.90) m/uL Hgb 11.7 L (13.0-17.5) gm/dL Hct 37.9 L (39.0-53.0) % MCV 102.2 H (80.0-100.0) fL MCH 31.6 (25.0-35.0) pg MCHC 30.9 L (31.0-37.0) g/dL RDW 15.6 H (11.5-15.5) % Plt Count 163 (150-450) k/uL Neutrophils % (Manual) 68 % Lymphocytes % (Manual) 22 % Monocytes % (Manual) 8 % Eosinophils % (Manual) 2 % Neutrophils # (Manual) 4.83 (1.3-7.7) k/uL Lymphocytes # (Manual) 1.56 (1.0-4.8) k/uL Monocytes # (Manual) 0.57 (0-1.0) k/uL Eosinophils # (Manual) 0.14 (0-0.7) k/uL Nucleated RBCs 0 (0-0) /100 WBC Manual Slide Review Performed Hypochromasia Marked Poikilocytosis (manual Present Anisocytosis (manual) Macrocytosis Slight PT (9.0-12.0) sec INR (<1.2) APTT (22.0-30.0) sec Sample Site ABG pH (7.35-7.45) ABG pCO2 (35-45) mmHg ABG pO2 (83-108) mmHg ABG HCO3 (21-25) mmol/L ABG Total CO2 (19-24) mmol/L ABG O2 Saturation (94-97) % ABG Base Excess mmol/L Ricardo Test FiO2 % Sodium 140 (137-145) mmol/L Potassium 4.9 (3.5-5.1) mmol/L Chloride 109 H (98-107) mmol/L Carbon Dioxide 24 (22-30) mmol/L Anion Gap 7 mmol/L BUN 35 H (9-20) mg/dL Creatinine 1.26 H (0.66-1.25) mg/dL Est GFR (CKD-EPI)AfAm 70 (>60 ml/min/1.73 sqM) Est GFR (CKD-EPI)NonAf 61 (>60 ml/min/1.73 sqM) Glucose 142 H (74-99) mg/dL POC Glucose (mg/dL) (75-99) mg/dL POC Glu Motor Installer ID Calcium 8.0 L (8.4-10.2) mg/dL Total Bilirubin (0.2-1.3) mg/dL AST (17-59) U/L ALT (4-49) U/L Alkaline Phosphatase (38-126) U/L Troponin I <0.012 (0.000-0.034) ng/mL NT-Pro-B Natriuret Pep pg/mL Total Protein (6.3-8.2) g/dL Albumin (3.5-5.0) g/dL TSH (0.465-4.680) mIU/L Blood Type Blood Type Recheck Bld Type Recheck Status Antibody Screen Spec Expiration Date 10/31/19 10/31/19 10/31/19 Range/Units 08:44 09:09 09:19 WBC (3.8-10.6) k/uL RBC (4.30-5.90) m/uL Hgb (13.0-17.5) gm/dL Hct (39.0-53.0) % MCV (80.0-100.0) fL MCH (25.0-35.0) pg MCHC (31.0-37.0) g/dL RDW (11.5-15.5) % Plt Count (150-450) k/uL Neutrophils % (Manual) % Lymphocytes % (Manual) % Monocytes % (Manual) % Eosinophils % (Manual) % Neutrophils # (Manual) (1.3-7.7) k/uL Lymphocytes # (Manual) (1.0-4.8) k/uL Monocytes # (Manual) (0-1.0) k/uL Eosinophils # (Manual) (0-0.7) k/uL Nucleated RBCs (0-0) /100 WBC Manual Slide Review Hypochromasia Poikilocytosis (manual Anisocytosis (manual) Macrocytosis PT 37.2 H (9.0-12.0) sec INR 3.8 H (<1.2) APTT (22.0-30.0) sec Sample Site ABG pH (7.35-7.45) ABG pCO2 (35-45) mmHg ABG pO2 (83-108) mmHg ABG HCO3 (21-25) mmol/L ABG Total CO2 (19-24) mmol/L ABG O2 Saturation (94-97) % ABG Base Excess mmol/L Ricardo Test FiO2 % Sodium (137-145) mmol/L Potassium (3.5-5.1) mmol/L Chloride (98-107) mmol/L Carbon Dioxide (22-30) mmol/L Anion Gap mmol/L BUN (9-20) mg/dL Creatinine (0.66-1.25) mg/dL Est GFR (CKD-EPI)AfAm (>60 ml/min/1.73 sqM) Est GFR (CKD-EPI)NonAf (>60 ml/min/1.73 sqM) Glucose (74-99) mg/dL POC Glucose (mg/dL) 124 H (75-99) mg/dL POC Glu Motor Installer ID Green, Vianey Calcium (8.4-10.2) mg/dL Total Bilirubin (0.2-1.3) mg/dL AST (17-59) U/L ALT (4-49) U/L Alkaline Phosphatase (38-126) U/L Troponin I (0.000-0.034) ng/mL NT-Pro-B Natriuret Pep pg/mL Total Protein (6.3-8.2) g/dL Albumin (3.5-5.0) g/dL TSH 2.570 (0.465-4.680) mIU/L Blood Type Blood Type Recheck Bld Type Recheck Status Antibody Screen Spec Expiration Date 10/31/19 Range/Units 11:52 WBC (3.8-10.6) k/uL RBC (4.30-5.90) m/uL Hgb (13.0-17.5) gm/dL Hct (39.0-53.0) % MCV (80.0-100.0) fL MCH (25.0-35.0) pg MCHC (31.0-37.0) g/dL RDW (11.5-15.5) % Plt Count (150-450) k/uL Neutrophils % (Manual) % Lymphocytes % (Manual) % Monocytes % (Manual) % Eosinophils % (Manual) % Neutrophils # (Manual) (1.3-7.7) k/uL Lymphocytes # (Manual) (1.0-4.8) k/uL Monocytes # (Manual) (0-1.0) k/uL Eosinophils # (Manual) (0-0.7) k/uL Nucleated RBCs (0-0) /100 WBC Manual Slide Review Hypochromasia Poikilocytosis (manual Anisocytosis (manual) Macrocytosis PT (9.0-12.0) sec INR (<1.2) APTT (22.0-30.0) sec Sample Site ABG pH (7.35-7.45) ABG pCO2 (35-45) mmHg ABG pO2 (83-108) mmHg ABG HCO3 (21-25) mmol/L ABG Total CO2 (19-24) mmol/L ABG O2 Saturation (94-97) % ABG Base Excess mmol/L Ricardo Test FiO2 % Sodium (137-145) mmol/L Potassium (3.5-5.1) mmol/L Chloride (98-107) mmol/L Carbon Dioxide (22-30) mmol/L Anion Gap mmol/L BUN (9-20) mg/dL Creatinine (0.66-1.25) mg/dL Est GFR (CKD-EPI)AfAm (>60 ml/min/1.73 sqM) Est GFR (CKD-EPI)NonAf (>60 ml/min/1.73 sqM) Glucose (74-99) mg/dL POC Glucose (mg/dL) 176 H (75-99) mg/dL POC Glu Motor Installer ID Vianey Luna Calcium (8.4-10.2) mg/dL Total Bilirubin (0.2-1.3) mg/dL AST (17-59) U/L ALT (4-49) U/L Alkaline Phosphatase (38-126) U/L Troponin I (0.000-0.034) ng/mL NT-Pro-B Natriuret Pep pg/mL Total Protein (6.3-8.2) g/dL Albumin (3.5-5.0) g/dL TSH (0.465-4.680) mIU/L Blood Type Blood Type Recheck Bld Type Recheck Status Antibody Screen Spec Expiration Date 10/30/19 23:02 EKG performed at 2111 shows wide QRS rhythm. Right axis deviation. Low voltage QRS. Septal infarct age undetermined. Abnormal EKG. Ventricular rate of 46 bpm. Laceration is 120 ms. QT QTc is 538/470 ms. (Ailin Chambers) - Radiology Data Hip CT shows evidence of osteopenia. No displaced fracture seen. There is a 7.9 x 6.7 x 5.37 cm soft tissue density lesion in the right gluteal musculature posterior right hip. Intramuscular hematoma and neoplasm are both the differential ultrasound for further characterization. Appropriate follow-up and management recommended. Also right hip a arthritis. General understands car. Correlating to exclude fecal impaction within the rectum. Patient's CT of the brain shows no acute intracranial abnormality. Scattered in this area along the scalp likely from peripheral line placement. Correlating for possible acute right maxillary sinusitis. X-ray of the right hip shows partially visualized left hip arthroplasty. Mild degenerative change in the right hip with no displaced fracture seen. Some limitation from large Patient body habitus. Chest x-ray shows similar cardiomegaly and interstitial changes. Possible pulmonary vascular congestion. Mild patchy basilar atelectasis versus early infiltrate. Correlating with patient's symptoms. (Ailin Chambers) Disposition Is patient prescribed a controlled substance at d/c from ED?: No Time of Disposition: 00:10 <Ailin Chambers - Last Filed: 10/31/19 00:32> <Jose Ferraro - Last Filed: 11/02/19 07:01> Clinical Impression: Diabetic foot ulcer, Fall, Inability to ambulate due to hip, Bradycardia on ECG, Heart failure, Dyspnea on exertion Disposition: ADMITTED IP TO THIS HOSP Condition: Stable
--- NOTE | 2019-10-30 20:58 | XR ---
EXAMINATION TYPE: XR chest 1V portable DATE OF EXAM: 10/30/2019 Comparison: 10/07/2019 Clinical History: 64-year-old male fall, R hip pain fx Findings: Mild to moderate cardiomegaly unchanged. Increased interstitial density unchanged. Some patchy left b asilar opacity. No pleural effusion. Impression: 1. Similar cardiomegaly and interstitial changes, possible mild pulmonary vascular congestion. 2. Mild patchy left basilar atelectasis versus early infiltrate. Correlate with patient's symptoms.
--- NOTE | 2019-10-30 21:00 | XR ---
EXAMINATION TYPE: AP view pelvis and 2 views right hip DATE OF EXAM: 10/30/2019 COMPARISON: NONE HISTORY: 64-year-old male fall and pain FINDINGS: Partially visualized distal femoral component of the left hip arthroplasty. Vascular stent in the lef t side of the pelvis. Some prominent stool in the rectum. Mild degenerative change of the right hip. Some limitation due to degree of penetration due to large patient body habitus. No displaced fracture is seen. IMPRESSION: 1. Partially visualized left hip total arthroplasty. 2. Mild degenerative change of the right hip. No displaced fracture seen. Some limitation from large patient body habitus.
--- NOTE | 2019-10-30 21:11 | CT ---
EXAMINATION TYPE: CT brain wo con DATE OF EXAM: 10/30/2019 COMPARISON: 10/06/2019 HISTORY: 64-year-old male with pain after Fall. TECHNIQUE: Examination was done in axial plane without intravenous contrast. Coronal and sagittal r econstructions performed. CT DLP: 1091.4 mGycm Automated exposure control for dose reduction was used. FINDINGS: There is no evidence of acute intracranial hemorrhage, acute ischemic changes, mass, mass-effect, or extra-axial fluid collection. There is no effacement of cerebral sulci or basal subarachnoid cister ns. There is no hydrocephalus. There is no midline shift. Carr-white matter distinction is preserv ed. Scattered mild mucosal thickening ethmoid air cells, frontal sinuses, and right maxillary sinus. Righ t maxillary sinus also has a small air-fluid level. Scattered intravenous air throughout the left temporal region and along the scalp above the nasal yves dge likely from peripheral line placement. Mastoid air cells well pneumatized. No calvarial fracture. IMPRESSION: 1. No acute intracranial abnormality seen. 2. Scattered venous air along the scalp likely from peripheral line placement. 3. Correlate for possible acute right maxillary sinusitis.
[2019-10-30 21:17] LABS: INR 3.8 (<1.2); Partial Thromboplastin Time 36.6 sec (22.0-30.0); Prothrombin Time 37.5 sec (9.0-12.0)
[2019-10-30 21:23] LABS: Albumin 3.5 g/dL (3.5-5.0); Calcium 8.2 mg/dL (8.4-10.2); Potassium 5.9 mmol/L (3.5-5.1); Total Bilirubin 0.9 mg/dL (0.2-1.3); Total Protein 6.8 g/dL (6.3-8.2)
[2019-10-30 21:24] LABS: HCT 40.6 % (39.0-53.0); HGB 12.5 gm/dL (13.0-17.5); Hypochromasia Slight; MCHC 30.8 g/dL (31.0-37.0); MCV 100.6 fL (80.0-100.0); Macrocytosis Slight; Mean Platelet Volume 9.8; Platelet Count 194 k/uL (150-450); RBC 4.04 m/uL (4.30-5.90); RDW 15.5 % (11.5-15.5); WBC 7.2 k/uL (3.8-10.6)
[2019-10-30] MEDS ORDERED: NALOXONE 0.4 MG/ML 1 ML VIAL IV STA (21:37)
[2019-10-30] MEDS ORDERED: NALOXONE 0.4 MG/ML 1 ML VIAL ONE (21:38)
[2019-10-30 21:46] LABS: Anisocytosis (M) Present; Monocytes # (M) 0.36 k/uL (0-1.0); Neutrophils # (M) 5.04 k/uL (1.3-7.7); Neutrophils % (M) 70 %; Nucleated Red Blood Cells 0 /100 WBC (0-0); Total Cells Counted 100
[2019-10-30 22:39] LABS: ABG Base Excess -4.5 mmol/L; ABG HCO3 22 mmol/L (21-25); ABG PCO2 42 mmHg (35-45); ABG PH 7.32 (7.35-7.45); ABG PO2 243 mmHg (83-108); ABG TCO2 23 mmol/L (19-24); Allen Test Performed? Yes
--- NOTE | 2019-10-30 23:31 | CT ---
EXAMINATION TYPE: CT hip RT wo con DATE OF EXAM: 10/30/2019 COMPARISON: Radiograph same day HISTORY: 64-year-old male RIGHT HIP PAIN AFTER FALL TECHNIQUE: Contiguous axial scanning of the right hip without IV contrast. Coronal and sagittal recon structions performed. CT DLP: 1184.6 mGycm Automated exposure control for dose reduction was used. FINDINGS: Prominent fecal distention of the rectum measuring up to 7.9 cm wide. Generalized anasarca change along with presacral edema. Left external iliac vein stent is present. Osteopenia. Mild degenerative change at the SI joints. Partially visualized left hip arthroplasty. No sacral or pelvic fracture is seen. No displaced fracture. Moderate degenerative change of the right hip. There is a 7.9 x 6.7 x 5.3 cm soft tissue density lesion in the soft tissues posterior to the intertr ochanteric region of the proximal femur centered within the gluteal muscles. Refer to axial image 49 and coronal image 89. Metal clip along the right common femoral vein. IMPRESSION: 1. OSTEOPENIA. NO DISPLACED FRACTURE SEEN. 2. A 7.9 X 6.7 X 5.37 M SOFT TISSUE DENSITY LESION CENTERED IN THE RIGHT GLUTEAL MUSCULATURE, POSTERI OR RIGHT HIP. INTRAMUSCULAR HEMATOMA AND NEOPLASM ARE BOTH IN THE DIFFERENTIAL. CONSIDER TARGETED ULT RASOUND TO FURTHER CHARACTERIZE. APPROPRIATE FOLLOW-UP AND MANAGEMENT RECOMMENDED DEPENDING ON FINDIN GS. 3. MODERATE RIGHT HIP OA. GENERALIZED ANASARCA CHANGE. CORRELATE TO EXCLUDE FECAL IMPACTION WITHIN TH E RECTUM.
[2019-10-31] MEDS ORDERED: NALOXONE 0.4 MG/ML 1 ML VIAL IV PRN (00:11)
[2019-10-31] MEDS ORDERED: ACETAMINOPHEN TAB 325 MG TAB PO PRN (00:11)
[2019-10-31] MEDS ORDERED: MORPHINE SULFATE 4 MG/ML SYRINGE IV PRN (00:11)
[2019-10-31] MEDS ORDERED: ONDANSETRON 4 MG/2 ML VIAL IVP PRN (00:11)
[2019-10-31] MEDS ORDERED: SODIUM CHLORIDE 0.9% 1,000 ML IV SCH (00:15)
[2019-10-31] MEDS ORDERED: NITROGLYCERIN SL TABS 0.4 MG TAB SUBLINGUAL PRN (00:42)
[2019-10-31] MEDS ORDERED: DOCUSATE 100 MG CAP PO PRN (00:43)
[2019-10-31] MEDS ORDERED: ALBUTEROL NEBULIZED 2.5 MG/3 ML INHALATION PRN (00:43)
[2019-10-31] MEDS ORDERED: WARFARIN SODIUM 3 MG PO SCH (00:45)
[2019-10-31] MEDS: IPRATROPIUM 0.5 MG/2.5 ML NEBU INHALATION SCH ×4 (08:26→19:36)
[2019-10-31] MEDS ORDERED: LISINOPRIL 20 MG TAB PO SCH (09:00)
[2019-10-31] MEDS ORDERED: FUROSEMIDE 40 MG TAB PO SCH (09:00)
[2019-10-31] MEDS ORDERED: NON FORMULARY DRUG (Omeprazole 20 MG) PO SCH (09:00)
[2019-10-31] MEDS ORDERED: metFORMIN 500 MG TAB PO SCH (09:00)
[2019-10-31] MEDS ORDERED: MELOXICAM 7.5 MG TAB PO SCH (09:00)
[2019-10-31] MEDS ORDERED: METOPROLOL TARTRATE 25 MG TAB PO SCH (09:00)
[2019-10-31] MEDS: PANTOPRAZOLE 40 MG/10 ML VIAL IV SCH (09:07)
[2019-10-31] MEDS: PREGABALIN 100 MG CAP PO SCH ×2 (09:07→20:59)
[2019-10-31] MEDS: AMIODARONE 200 MG TAB PO SCH ×3 (09:07→23:48)
[2019-10-31] MEDS: ASPIRIN 81 MG PO SCH (09:08)
[2019-10-31] MEDS: MULTIVITAMINS, THERA 1 EACH TAB PO SCH (09:08)
[2019-10-31] MEDS: LORATADINE 10 MG TAB PO SCH (09:08)
[2019-10-31] MEDS: TOPIRAMATE 25 MG TAB PO SCH ×2 (09:08→21:00)
[2019-10-31] MEDS: oxyCODONE-APAP 10-325MG 1 EACH TAB PO PRN ×2 (09:12→17:36)
[2019-10-31 09:16] LABS: Potassium 4.9 mmol/L (3.5-5.1)
[2019-10-31] MEDS: INSULIN NPH 300 UNIT/3 ML VIAL SQ SCH (09:20)
--- NOTE | 2019-10-31 09:26 | P.CRDCN ---
History of Present Illness Consult date: 10/31/19 Reason for Consult (text): Bradycardia Chief complaint: Fall History of present illness: This is a 64-year-old gentleman who follows with Dr. Guillermo in the office. He has a known history of COPD, DVT, pulmonary embolism, hypertension, diabetes, diabetic neuropathy, degenerative joint disease, hyperlipidemia. He is chronically on Coumadin for pulmonary embolism and DVT. Patient also has a significant wound on his left foot for which he follows at the wound clinic. History of prior TIA. On his recent admission to the hospital in August patient was found to be in atrial fibrillation with a rapid ventricular response. Of note, patient does have a history of a [place] filter. An echocardiogram with Doppler study was performed in August which revealed an ejection fraction of 30-35% at the time of the echo it is documented that the patient was in atrial fibrillation with a rapid ventricular response. Prior to that according to the office note patient's echoes have revealed a normal left ventricular systolic function. The patient most recently has seen Dr. Heaton in the office on September 26 he was recommended to have a Holter monitor which she was to pick out hand today, he was also recommended to undergo a stress test which was scheduled this upcoming Monday to rule out ischemia. He presents to the hospital on this occasion. He presents to the hospital on this occasion after tripping over a small stool in his house and falling to the ground. The patient denies any syncope at this time, he does state intermittently that he feels mildly dizzy but never to the point where he feels like he could pass out. He also states that over the past couple of weeks he has noticed worsening in his exertional shortness of breath. He states that just walking a very short distance he has to stop and catch his breath and then start walking again. He denies any chest pressure or heaviness. His EKG on presentation here showed a sinus bradycardia with a heart rate in the high 40s. Blood pressure this morning 104/50 with a heart rate of 58, he is 91% on 8 L of oxygen. His chest x-ray shows similar cardiomegaly and interstitial changes, possible mild pulmonary vascular congestion. Mild patchy left basilar atelectasis versus infiltrate. No acute fracture noted on hip x-ray. Laboratory data was reviewed, white blood cell count 7.2, hemoglobin 12.5, platelet count 194. INR 3.8, blood gases were obtained on arrival here pH 7.3 pCO2 42 pO2 243, sodium 140, potassium 4.9, BUN on admission 40 with a creatinine of 1.5, 35 and 1.2 this morning, AST 85, ALT 132, alk phos 159, troponin 0.014, 0.012, BNP level 2020. On review of the patient's recent records, in August and September of this year he was noted to have abnormality in his liver enzymes as well as a BNP level in the range of 2000. Past Medical History Past Medical History: Asthma, COPD, CVA/TIA, Diabetes Mellitus, Deep Vein Thrombosis (DVT), GERD/Reflux, Hyperlipidemia, Hypertension, Neurologic Disorder, Osteoarthritis (OA), Pneumonia, Pulmonary Embolus (PE) Additional Past Medical History / Comment(s): MIGRAINES. " ANITICOAGULANT LUPUS". PNEUMOTHRORAX. PERIPHERAL EDEMA. History of Any Multi-Drug Resistant Organisms: None Reported Past Surgical History: Adenoidectomy, Appendectomy, Tonsillectomy Additional Past Surgical History / Comment(s): HAILE FILTER . VEIN S TRIPPING. STENTS IN "PELVIC AREA" NOVEMBER 2004. Past Anesthesia/Blood Transfusion Reactions: No Reported Reaction Past Psychological History: No Psychological Hx Reported Additional Psychological History / Comment(s): TAKES CYMBALTA FOR CARPAL TUNNEL. Smoking Status: Former smoker Past Alcohol Use History: None Reported Past Drug Use History: None Reported - Past Family History Mother Additional Family Medical History / Comment(s): heart disease, peripheral vascular disease. Father Family Medical History: Unable to Obtain Medications and Allergies Home Medications Medication Instructions Recorded Confirmed Type Atorvastatin [Lipitor] 80 mg PO HS 01/09/14 10/30/19 History Pregabalin [Lyrica] 300 mg PO BID 01/09/14 10/30/19 History Topiramate [Topamax] 25 mg PO BID 01/09/14 10/30/19 History Warfarin Sodium [Coumadin] 6 mg PO [id number] 01/09/14 10/30/19 History metFORMIN HCL [Glucophage] 500 mg PO BID 01/09/14 10/30/19 History Multivitamins, Thera [Multivitamin 1 tab PO DAILY 11/15/17 10/30/19 History (formulary)] Warfarin Sodium 3 mg PO SUTH 05/10/18 10/30/19 History Albuterol Nebulized [Ventolin 2.5 mg INHALATION RT-DAILY PRN 08/15/19 10/30/19 History Nebulized] Docusate [Colace] 100 mg PO DAILY PRN 08/15/19 10/30/19 History Nortriptyline [Pamelor] 50 mg PO HS 08/15/19 10/30/19 History Omeprazole [PriLOSEC] 20 mg PO BID 08/15/19 10/30/19 History Tiotropium Portal [Spiriva] 1 cap INHALATION RT-DAILY 08/15/19 10/30/19 History Aspirin 81 mg PO DAILY 30 Days #30 chew 08/26/19 10/30/19 Rx Furosemide [Lasix] 40 mg PO DAILY 30 Days #30 tablet 08/26/19 10/30/19 Rx Amiodarone [Cordarone] 200 mg PO TID 30 Days #90 tab 09/04/19 10/30/19 Rx oxyCODONE HCL/ACETAMINOPHEN 1 tab PO Q8HR PRN #12 tab 10/08/19 10/30/19 Rx [Percocet 10-325 mg] Celecoxib [CeleBREX] 200 mg PO DAILY 10/30/19 10/30/19 History Insulin NPH Human Isophane 70 units SQ DAILY 10/30/19 10/30/19 History [NovoLIN N] Lisinopril 20 mg PO DAILY 10/30/19 10/30/19 History Loratadine 10 mg PO DAILY 10/30/19 10/30/19 History Metoprolol Tartrate [Lopressor] 50 mg PO BID 10/30/19 10/30/19 History Allergies Allergy/AdvReac Type Severity Reaction Status Date / Time baclofen Allergy Unknown Verified 10/30/19 20:07 Physical Exam Vitals: Vital Signs Temp Pulse Pulse Resp BP BP Pulse Ox 10/31/19 08:38 58 L 10/31/19 08:29 58 L 10/31/19 08:00 97.8 F 76 20 104/57 91 L 10/31/19 04:47 98.2 F 55 L 22 93 L 10/31/19 01:36 96.7 F L 51 L 18 154/82 100 10/31/19 01:07 97.6 F 46 L 22 93/52 76 L 10/30/19 23:56 50 L 22 97/82 96 10/30/19 22:47 47 L 30 H 131/99 96 10/30/19 21:40 51 L 16 144/98 10/30/19 21:38 14 10/30/19 19:55 97.6 F 54 L 18 118/76 95 Intake and Output 10/30/19 10/31/19 10/31/19 22:59 06:59 14:59 Intake Total 580 360 Balance 580 360 Intake: Intake, IV Titration 100 Amount Sodium Chloride 0.9% 1, 100 000 ml @ 100 mls/hr IV . Q10H REPLACED BY [facility] Rx#:[id number] Oral 480 360 Other: # Voids 1 1 # Bowel Movements 1 Weight 144.242 kg 154.5 kg PHYSICAL EXAMINATION: GENERAL: 64-year-old gentleman in no acute distress at the time of my examination HEENT: Head is atraumatic, normocephalic. Pupils equal, round. Sclera anicteric. Conjunctiva are clear. Mucous membranes of the mouth are moist. Neck is supple. There is no elevated jugular venous pressure.] bruit is heard. HEART EXAMINATION: Heart S1, S2 normal. No murmur or gallop heard. CHEST EXAMINATION: Lungs are clear to auscultation and precussion. No chest wall tenderness is noted on palpation or with deep breathing. ABDOMEN: Soft, nontender. Bowel sounds are heard. No organomegaly noted. EXTREMITIES: 2+ peripheral pulses with 1-2+ evidence of peripheral edema, chronic discoloration of the skin on the lower extremities, ulcerated area on the left foot. NEUROLOGIC patient is awake, alert and oriented X3. . Results 10/30/19 20:34 10/31/19 08:44 Cardiac Enzymes 10/30/19 10/30/19 10/31/19 Range/Units 20:34 20:34 02:24 AST 85 H (17-59) U/L Troponin I 0.014 <0.012 (0.000-0.034) ng/mL Coagulation 10/30/19 Range/Units 20:34 PT 37.5 H (9.0-12.0) sec APTT 36.6 H (22.0-30.0) sec CBC 10/30/19 Range/Units 20:34 WBC 7.2 (3.8-10.6) k/uL RBC 4.04 L (4.30-5.90) m/uL Hgb 12.5 L (13.0-17.5) gm/dL Hct 40.6 (39.0-53.0) % Plt Count 194 (150-450) k/uL Comprehensive Metabolic Panel 10/30/19 10/30/19 Range/Units 20:34 23:55 Sodium 137 (137-145) mmol/L Potassium 5.9 H 4.9 (3.5-5.1) mmol/L Chloride 105 (98-107) mmol/L Carbon Dioxide 25 (22-30) mmol/L BUN 40 H (9-20) mg/dL Creatinine 1.50 H (0.66-1.25) mg/dL Glucose 256 H (74-99) mg/dL Calcium 8.2 L (8.4-10.2) mg/dL AST 85 H (17-59) U/L ALT 132 H (4-49) U/L Alkaline Phosphatase 159 H (38-126) U/L Total Protein 6.8 (6.3-8.2) g/dL Albumin 3.5 (3.5-5.0) g/dL Current Medications Generic Name Dose Route Start Last Admin Trade Name Freq PRN Reason Stop Dose Admin Acetaminophen 650 mg 10/31/19 00:11 Tylenol Tab PO Q6HR PRN Mild Pain or Fever > 100.5 Acetaminophen/Codeine Phosphate 1 each 10/31/19 00:11 Tylenol #3 PO Q4HR PRN Moderate Pain Albuterol Sulfate 2.5 mg 10/31/19 00:43 Ventolin Nebulized INHALATION RT-DAILY PRN Shortness Of Breath Amiodarone HCl 200 mg 10/31/19 09:00 Cordarone PO TID REPLACED BY [facility] Aspirin 81 mg 10/31/19 09:00 Aspirin PO DAILY HELENE Atorvastatin Calcium 80 mg 10/31/19 21:00 Lipitor PO HS HELENE Docusate Sodium 100 mg 10/31/19 00:43 Colace PO DAILY PRN Constipation Furosemide 40 mg 10/31/19 09:00 Lasix PO DAILY REPLACED BY [facility] Insulin Human NPH 70 unit 10/31/19 09:00 Humulin N SQ DAILY REPLACED BY [facility] Ipratropium Portal 0.5 mg 10/31/19 08:00 10/31/19 08:26 Atrovent Nebulized INHALATION 0.5 mg RT-QID REPLACED BY [facility] Administration Lisinopril 20 mg 10/31/19 09:00 Zestril PO DAILY REPLACED BY [facility] Loratadine 10 mg 10/31/19 09:00 Claritin PO DAILY REPLACED BY [facility] Metoprolol Tartrate 50 mg 10/31/19 09:00 Lopressor PO BID REPLACED BY [facility] Morphine Sulfate 4 mg 10/31/19 00:11 Morphine Sulfate (Inj) IV Q4HR PRN Severe Pain Multivitamins 1 each 10/31/19 09:00 Theragran PO DAILY REPLACED BY [facility] Naloxone HCl 0.2 mg 10/31/19 00:11 Narcan IV Q2M PRN Opioid Reversal Nitroglycerin 0.4 mg 10/31/19 00:42 Nitrostat SUBLINGUAL Q5M PRN Chest Pain Nortriptyline HCl 50 mg 10/31/19 21:00 Pamelor PO HS REPLACED BY [facility] Ondansetron HCl 4 mg 10/31/19 00:11 Zofran IVP Q8HR PRN Nausea And Vomiting Oxycodone/Acetaminophen 1 each 10/31/19 00:43 Percocet 10-325 PO Q8HR PRN Breakthrough Pain Pantoprazole Sodium 40 mg 10/31/19 09:00 Protonix IV DAILY REPLACED BY [facility] Pregabalin 300 mg 10/31/19 09:00 Lyrica PO BID REPLACED BY [facility] Topiramate 25 mg 10/31/19 09:00 Topamax PO BID REPLACED BY [facility] Intake and Output 10/30/19 10/31/19 10/31/19 22:59 06:59 14:59 Intake Total 580 360 Balance 580 360 Intake: Intake, IV Titration 100 Amount Sodium Chloride 0.9% 1, 100 000 ml @ 100 mls/hr IV . Q10H REPLACED BY [facility] Rx#:[id number] Oral 480 360 Other: # Voids 1 1 # Bowel Movements 1 Weight 144.242 kg 154.5 kg 10/30/19 20:34 10/30/19 23:55 EKG Interpretations (text) EKG shows a sinus bradycardia Assessment and Plan Plan: Assessment and plan #1 fall, no evidence of syncope #2 hypertension #3 diabetes #4 hyperlipidemia #5 COPD #6 history of pulmonary embolism and DVT for which the patient had chronically been on Coumadin #7 recent episode of atrial fibrillation, paroxysmal, remaining in normal sinus rhythm at this time #8 diabetic foot ulcer #9 history of a [place] filter #10 generalized anxiety disorder #11 PVD #12 cardiomyopathy with documented ejection fraction on his admission in August to 35%. Plan We will repeat an echocardiogram with Doppler study this admission, assessing the LV function only. His echo which was performed in August was done at a time when the patient was in atrial fibrillation with rapid ventricular response. Patient's LV function prior to that had been normal in the past. The patient was also scheduled to have a Holter monitor in place, upon discharge from here we would recommend he continue with the scheduled Holter monitor. Continue Coumadin to maintain an INR in the range of 2-2.5. Monitoring INRs closely. His INR today is 3.8. The patient's heart rate on presentation here was in the high 40s, he continues to be in the low 50s this morning. Blood pressure 104/60. We will decrease his dose of beta maria from 50 mg twice a day to 25 mg twice a day. Check a TSH level. If the patient is discharged home, he can continue with the scheduled stress test in the office as well. Further recommendations to follow. DNP note has been reviewed, I agree with a documented findings and plan of care. Patient was seen and examined.
[2019-10-31 09:30] LABS: Glucose,Whole Blood 124 mg/dL (75-99)
[2019-10-31 09:39] LABS: HCT 37.9 % (39.0-53.0); HGB 11.7 gm/dL (13.0-17.5); Hypochromasia Marked; MCH 31.6 pg (25.0-35.0); MCHC 30.9 g/dL (31.0-37.0); MCV 102.2 fL (80.0-100.0); Macrocytosis Slight; Platelet Count 163 k/uL (150-450); RBC 3.71 m/uL (4.30-5.90); RDW 15.6 % (11.5-15.5); WBC 7.1 k/uL (3.8-10.6)
[2019-10-31 09:58] LABS: INR 3.8 (<1.2); Prothrombin Time 37.2 sec (9.0-12.0)
--- NOTE | 2019-10-31 10:03 | US ---
EXAMINATION TYPE: US extremity nonvasc mass RT DATE OF EXAM: 10/31/2019 COMPARISON: CT from yesterday. CLINICAL HISTORY: for right gluteal hematoma vs neoplasm. Recent fall. CT showed lesion on right glu t. Bruising seen. Area of concern scanned. Hypoechoic lesion seen at bruising area on right lateral gluteal region = 8 .7 x 8.7 x 3.7 cm. IMPRESSION: Correlate and seen better on CT is poorly defined fairly moderate size hematoma lateral inferior aspect of the right gluteal muscles.
--- NOTE | 2019-10-31 11:05 | P.GSCN ---
<Baylee Tristan - Last Filed: 10/31/19 10:55> History of Present Illness Consult date: 10/31/19 Reason for Consult: Right gluteal hematoma versus neoplasm Requesting physician: Memo E Sheet History of present illness: CHIEF COMPLAINT: Right gluteal hematoma versus neoplasm HISTORY OF PRESENT ILLNESS: 64-year-old male who presented to the emergency room secondary to a fall. Patient states he was in his living room yesterday and tripped over his 's ottoman falling to the ground. He reports falling on his right side. The patient states he was having difficulty ambulating at home due to the increased pain in his hip so he came to the emergency room for further evaluation. Patient examined this morning at the bedside. He reports discomfort to his right hip. The patient is prescribed Coumadin on an outpatient basis. INR was noted to be 3.8. PAST MEDICAL HISTORY: See list. PAST SURGICAL HISTORY: See list. SOCIAL HISTORY: No illicit drug use. REVIEW OF SYSTEMS: CONSTITUTIONAL: Denies fever or chills. Reports recent fall HEENT: Denies blurred vision, vision changes, or eye pain. Denies hemoptysis CARDIOVASCULAR: Denies chest pain or pressure. RESPIRATORY: Reports mild shortness of breath. GASTROINTESTINAL: Denies abdominal pain. Denies nausea or vomiting HEMATOLOGIC: Denies bleeding disorders. GENITOURINARY: Denies any blood in urine. SKIN: Denies pruitis. Denies rash. PHYSICAL EXAM: VITAL SIGNS: Reviewed. GENERAL: Well-developed in no acute distress. HEENT: No sclera icterus. Extraocular movements grossly intact. Moist buccal mucosa. Head is atraumatic, normocephalic. ABDOMEN: Soft. Nondistended. Nontender. NEUROLOGIC: Alert and oriented. Cranial nerves II through XII grossly intact. EXTREMITIES: Ecchymosis noted to posterior aspect of right lower extremity. Mild tenderness with palpation LABORATORY DATA: WBC 7.1. Hemoglobin 11.7. Platelet count 163. INR 3.8. IMAGING: -CT right hip: 7.9 x 6.7 x 5.3 cm soft tissue density lesion in the soft tissues posterior to the intertrochanteric region of the proximal femur centered within the gluteal muscles. Intramuscular hematoma/neoplasm both are in the differential. -Ultrasound right extremity: Poorly defined fairly moderate sized hematoma lateral inferior aspect of right gluteal muscles ASSESSMENT: 1. Fall from standing 2. Right hip/gluteal hematoma secondary to fall 3. Right hip pain secondary to above 4. Coumadin coagulopathy PLAN: -Hold Coumadin. Further management of coumadin per internal medicine -Monitor hemoglobin -Pain control -No surgical intervention recommended Nurse practitioner note has been reviewed by physician. Signing provider agrees with the documented findings, assessment, and plan of care. Past Medical History Past Medical History: Asthma, COPD, CVA/TIA, Diabetes Mellitus, Deep Vein Thrombosis (DVT), GERD/Reflux, Hyperlipidemia, Hypertension, Neurologic Disorder, Osteoarthritis (OA), Pneumonia, Pulmonary Embolus (PE) Additional Past Medical History / Comment(s): MIGRAINES. " ANITICOAGULANT LUPUS". PNEUMOTHRORAX. PERIPHERAL EDEMA. History of Any Multi-Drug Resistant Organisms: None Reported Past Surgical History: Adenoidectomy, Appendectomy, Tonsillectomy Additional Past Surgical History / Comment(s): HAILE FILTER . VEIN STRIPPING. STENTS IN "PELVIC AREA" NOVEMBER 2004. Past Anesthesia/Blood Transfusion Reactions: No Reported Reaction Past Psychological History: No Psychological Hx Reported Additional Psychological History / Comment(s): TAKES CYMBALTA FOR CARPAL TUNNEL. Smoking Status: Former smoker Past Alcohol Use History: None Reported Past Drug Use History: None Reported - Past Family History Mother Additional Family Medical History / Comment(s): heart disease, peripheral vascular disease. Father Family Medical History: Unable to Obtain Medications and Allergies Home Medications Medication Instructions Recorded Confirmed Type Atorvastatin [Lipitor] 80 mg PO HS 01/09/14 10/31/19 History Pregabalin [Lyrica] 300 mg PO BID 01/09/14 10/31/19 History Topiramate [Topamax] 25 mg PO BID 01/09/14 10/31/19 History Warfarin Sodium [Coumadin] 6 mg PO MOTUWEFRSA 01/09/14 10/31/19 History metFORMIN HCL [Glucophage] 500 mg PO BID 01/09/14 10/31/19 History Multivitamins, Thera [Multivitamin 1 tab PO DAILY 11/15/17 10/31/19 History (formulary)] Warfarin Sodium 3 mg PO SUTH 05/10/18 10/31/19 History Albuterol Nebulized [Ventolin 2.5 mg INHALATION RT-DAILY PRN 08/15/19 10/31/19 History Nebulized] Docusate [Colace] 100 mg PO DAILY PRN 08/15/19 10/31/19 History Nortriptyline [Pamelor] 50 mg PO HS 08/15/19 10/31/19 History Omeprazole [PriLOSEC] 20 mg PO BID 08/15/19 10/31/19 History Aspirin 81 mg PO DAILY 30 Days #30 chew 08/26/19 10/31/19 Rx Furosemide [Lasix] 40 mg PO DAILY 30 Days #30 tablet 08/26/19 10/31/19 Rx Amiodarone [Cordarone] 200 mg PO TID 30 Days #90 tab 09/04/19 10/31/19 Rx Celecoxib [CeleBREX] 200 mg PO DIRECTED 10/30/19 10/31/19 History Insulin NPH Human Isophane 70 units SQ DAILY 10/30/19 10/31/19 History [NovoLIN N] Lisinopril 20 mg PO DAILY 10/30/19 10/30/19 History Loratadine 10 mg PO DAILY 10/30/19 10/31/19 History Metoprolol Tartrate [Lopressor] 50 mg PO BID 10/30/19 10/31/19 History Spiriva Respimat 1.25mcg/[place] 2 spray INHALATION RT-BID 10/31/19 10/31/19 History oxyCODONE-APAP 10-325MG [Percocet 1 tab PO Q6HR PRN 10/31/19 10/31/19 History 10-325 mg] Allergies Allergy/AdvReac Type Severity Reaction Status Date / Time baclofen Allergy Unknown Verified 10/31/19 09:51 Surgical - Exam Vital Signs Temp Pulse Resp BP Pulse Ox 97.6 F 54 L 18 118/76 95 10/30/19 19:55 10/30/19 19:55 10/30/19 19:55 10/30/19 19:55 10/30/19 19:55 Results - Labs 10/31/19 08:44 10/31/19 08:44 Abnormal Lab Results - Last 24 Hours (Table) 10/30/19 10/30/19 10/30/19 Range/Units 20:34 20:34 20:34 RBC 4.04 L (4.30-5.90) m/uL Hgb 12.5 L (13.0-17.5) gm/dL Hct (39.0-53.0) % MCV 100.6 H (80.0-100.0) fL MCHC 30.8 L (31.0-37.0) g/dL RDW (11.5-15.5) % PT 37.5 H (9.0-12.0) sec INR 3.8 H (<1.2) APTT 36.6 H (22.0-30.0) sec ABG pH (7.35-7.45) ABG pO2 (83-108) mmHg ABG O2 Saturation (94-97) % Potassium 5.9 H (3.5-5.1) mmol/L Chloride (98-107) mmol/L BUN 40 H (9-20) mg/dL Creatinine 1.50 H (0.66-1.25) mg/dL Glucose 256 H (74-99) mg/dL POC Glucose (mg/dL) (75-99) mg/dL Calcium 8.2 L (8.4-10.2) mg/dL AST 85 H (17-59) U/L ALT 132 H (4-49) U/L Alkaline Phosphatase 159 H (38-126) U/L 10/30/19 10/31/19 10/31/19 Range/Units 22:32 08:44 08:44 RBC 3.71 L (4.30-5.90) m/uL Hgb 11.7 L (13.0-17.5) gm/dL Hct 37.9 L (39.0-53.0) % MCV 102.2 H (80.0-100.0) fL MCHC 30.9 L (31.0-37.0) g/dL RDW 15.6 H (11.5-15.5) % PT (9.0-12.0) sec INR (<1.2) APTT (22.0-30.0) sec ABG pH 7.32 L (7.35-7.45) ABG pO2 243 H (83-108) mmHg ABG O2 Saturation 100.0 H (94-97) % Potassium (3.5-5.1) mmol/L Chloride 109 H (98-107) mmol/L BUN 35 H (9-20) mg/dL Creatinine 1.26 H (0.66-1.25) mg/dL Glucose 142 H (74-99) mg/dL POC Glucose (mg/dL) (75-99) mg/dL Calcium 8.0 L (8.4-10.2) mg/dL AST (17-59) U/L ALT (4-49) U/L Alkaline Phosphatase (38-126) U/L 10/31/19 10/31/19 Range/Units 09:09 09:19 RBC (4.30-5.90) m/uL Hgb (13.0-17.5) gm/dL Hct (39.0-53.0) % MCV (80.0-100.0) fL MCHC (31.0-37.0) g/dL RDW (11.5-15.5) % PT 37.2 H (9.0-12.0) sec INR 3.8 H (<1.2) APTT (22.0-30.0) sec ABG pH (7.35-7.45) ABG pO2 (83-108) mmHg ABG O2 Saturation (94-97) % Potassium (3.5-5.1) mmol/L Chloride (98-107) mmol/L BUN (9-20) mg/dL Creatinine (0.66-1.25) mg/dL Glucose (74-99) mg/dL POC Glucose (mg/dL) 124 H (75-99) mg/dL Calcium (8.4-10.2) mg/dL AST (17-59) U/L ALT (4-49) U/L Alkaline Phosphatase (38-126) U/L Diabetes panel 10/30/19 10/30/19 10/31/19 Range/Units 20:34 23:55 08:44 Sodium 137 140 (137-145) mmol/L Potassium 5.9 H 4.9 4.9 (3.5-5.1) mmol/L Chloride 105 109 H (98-107) mmol/L Carbon Dioxide 25 24 (22-30) mmol/L BUN 40 H 35 H (9-20) mg/dL Creatinine 1.50 H 1.26 H (0.66-1.25) mg/dL Glucose 256 H 142 H (74-99) mg/dL Calcium 8.2 L 8.0 L (8.4-10.2) mg/dL AST 85 H (17-59) U/L ALT 132 H (4-49) U/L Alkaline Phosphatase 159 H (38-126) U/L Total Protein 6.8 (6.3-8.2) g/dL Albumin 3.5 (3.5-5.0) g/dL Thyroid panel 10/31/19 Range/Units 08:44 TSH 2.570 (0.465-4.680) mIU/L Calcium panel 10/30/19 10/31/19 Range/Units 20:34 08:44 Calcium 8.2 L 8.0 L (8.4-10.2) mg/dL Albumin 3.5 (3.5-5.0) g/dL Pituitary panel 10/30/19 10/30/19 10/31/19 Range/Units 20:34 23:55 08:44 Sodium 137 140 (137-145) mmol/L Potassium 5.9 H 4.9 4.9 (3.5-5.1) mmol/L Chloride 105 109 H (98-107) mmol/L Carbon Dioxide 25 24 (22-30) mmol/L BUN 40 H 35 H (9-20) mg/dL Creatinine 1.50 H 1.26 H (0.66-1.25) mg/dL Glucose 256 H 142 H (74-99) mg/dL Calcium 8.2 L 8.0 L (8.4-10.2) mg/dL TSH (0.465-4.680) mIU/L 10/31/19 Range/Units 08:44 Sodium (137-145) mmol/L Potassium (3.5-5.1) mmol/L Chloride (98-107) mmol/L Carbon Dioxide (22-30) mmol/L BUN (9-20) mg/dL Creatinine (0.66-1.25) mg/dL Glucose (74-99) mg/dL Calcium (8.4-10.2) mg/dL TSH 2.570 (0.465-4.680) mIU/L Adrenal panel 10/30/19 10/30/19 10/31/19 Range/Units 20:34 23:55 08:44 Sodium 137 140 (137-145) mmol/L Potassium 5.9 H 4.9 4.9 (3.5-5.1) mmol/L Chloride 105 109 H (98-107) mmol/L Carbon Dioxide 25 24 (22-30) mmol/L BUN 40 H 35 H (9-20) mg/dL Creatinine 1.50 H 1.26 H (0.66-1.25) mg/dL Glucose 256 H 142 H (74-99) mg/dL Calcium 8.2 L 8.0 L (8.4-10.2) mg/dL Total Bilirubin 0.9 (0.2-1.3) mg/dL AST 85 H (17-59) U/L ALT 132 H (4-49) U/L Alkaline Phosphatase 159 H (38-126) U/L Total Protein 6.8 (6.3-8.2) g/dL Albumin 3.5 (3.5-5.0) g/dL <Johnny Bateman - Last Filed: 10/31/19 12:54> History of Present Illness History of present illness: As above. Patient fell onto his right side. Had some swelling and they ordered a computed tomography scan. Density seen in the soft tissues of the gluteus muscles appear to represent hematoma. Patient says he did not have pain prior t o the fall. INR today is 3.8. He does not think the swelling has changed since yesterday. I think it is reasonable to continue to maintain an INR of 2-3. Agree with holding today's dose of Coumadin. Recheck INR tomorrow. We will reevaluate tomorrow. Surgical - Exam Vital Signs Temp Pulse Resp BP Pulse Ox 97.6 F 54 L 18 118/76 95 10/30/19 19:55 10/30/19 19:55 10/30/19 19:55 10/30/19 19:55 10/30/19 19:55 Results - Labs 10/31/19 08:44 10/31/19 08:44 Abnormal Lab Results - Last 24 Hours (Table) 10/30/19 10/30/19 10/30/19 Range/Units 20:34 20:34 20:34 RBC 4.04 L (4.30-5.90) m/uL Hgb 12.5 L (13.0-17.5) gm/dL Hct (39.0-53.0) % MCV 100.6 H (80.0-100.0) fL MCHC 30.8 L (31.0-37.0) g/dL RDW (11.5-15.5) % PT 37.5 H (9.0-12.0) sec INR 3.8 H (<1.2) APTT 36.6 H (22.0-30.0) sec ABG pH (7.35-7.45) ABG pO2 (83-108) mmHg ABG O2 Saturation (94-97) % Potassium 5.9 H (3.5-5.1) mmol/L Chloride (98-107) mmol/L BUN 40 H (9-20) mg/dL Creatinine 1.50 H (0.66-1.25) mg/dL Glucose 256 H (74-99) mg/dL POC Glucose (mg/dL) (75-99) mg/dL Calcium 8.2 L (8.4-10.2) mg/dL AST 85 H (17-59) U/L ALT 132 H (4-49) U/L Alkaline Phosphatase 159 H (38-126) U/L 10/30/19 10/31/19 10/31/19 Range/Units 22:32 08:44 08:44 RBC 3.71 L (4.30-5.90) m/uL Hgb 11.7 L (13.0-17.5) gm/dL Hct 37.9 L (39.0-53.0) % MCV 102.2 H (80.0-100.0) fL MCHC 30.9 L (31.0-37.0) g/dL RDW 15.6 H (11.5-15.5) % PT (9.0-12.0) sec INR (<1.2) APTT (22.0-30.0) sec ABG pH 7.32 L (7.35-7.45) ABG pO2 243 H (83-108) mmHg ABG O2 Saturation 100.0 H (94-97) % Potassium (3.5-5.1) mmol/L Chloride 109 H (98-107) mmol/L BUN 35 H (9-20) mg/dL Creatinine 1.26 H (0.66-1.25) mg/dL Glucose 142 H (74-99) mg/dL POC Glucose (mg/dL) (75-99) mg/dL Calcium 8.0 L (8.4-10.2) mg/dL AST (17-59) U/L ALT (4-49) U/L Alkaline Phosphatase (38-126) U/L 10/31/19 10/31/19 10/31/19 Range/Units 09:09 09:19 11:52 RBC (4.30-5.90) m/uL Hgb (13.0-17.5) gm/dL Hct (39.0-53.0) % MCV (80.0-100.0) fL MCHC (31.0-37.0) g/dL RDW (11.5-15.5) % PT 37.2 H (9.0-12.0) sec INR 3.8 H (<1.2) APTT (22.0-30.0) sec ABG pH (7.35-7.45) ABG pO2 (83-108) mmHg ABG O2 Saturation (94-97) % Potassium (3.5-5.1) mmol/L Chloride (98-107) mmol/L BUN (9-20) mg/dL Creatinine (0.66-1.25) mg/dL Glucose (74-99) mg/dL POC Glucose (mg/dL) 124 H 176 H (75-99) mg/dL Calcium (8.4-10.2) mg/dL AST (17-59) U/L ALT (4-49) U/L Alkaline Phosphatase (38-126) U/L Diabetes panel 10/30/19 10/30/19 10/31/19 Range/Units 20:34 23:55 08:44 Sodium 137 140 (137-145) mmol/L Potassium 5.9 H 4.9 4.9 (3.5-5.1) mmol/L Chloride 105 109 H (98-107) mmol/L Carbon Dioxide 25 24 (22-30) mmol/L BUN 40 H 35 H (9-20) mg/dL Creatinine 1.50 H 1.26 H (0.66-1.25) mg/dL Glucose 256 H 142 H (74-99) mg/dL Calcium 8.2 L 8.0 L (8.4-10.2) mg/dL AST 85 H (17-59) U/L ALT 132 H (4-49) U/L Alkaline Phosphatase 159 H (38-126) U/L Total Protein 6.8 (6.3-8.2) g/dL Albumin 3.5 (3.5-5.0) g/dL Thyroid panel 10/31/19 Range/Units 08:44 TSH 2.570 (0.465-4.680) mIU/L Calcium panel 10/30/19 10/31/19 Range/Units 20:34 08:44 Calcium 8.2 L 8.0 L (8.4-10.2) mg/dL Albumin 3.5 (3.5-5.0) g/dL Pituitary panel 10/30/19 10/30/19 10/31/19 Range/Units 20:34 23:55 08:44 Sodium 137 140 (137-145) mmol/L Potassium 5.9 H 4.9 4.9 (3.5-5.1) mmol/L Chloride 105 109 H (98-107) mmol/L Carbon Dioxide 25 24 (22-30) mmol/L BUN 40 H 35 H (9-20) mg/dL Creatinine 1.50 H 1.26 H (0.66-1.25) mg/dL Glucose 256 H 142 H (74-99) mg/dL Calcium 8.2 L 8.0 L (8.4-10.2) mg/dL TSH (0.465-4.680) mIU/L 10/31/19 Range/Units 08:44 Sodium (137-145) mmol/L Potassium (3.5-5.1) mmol/L Chloride (98-107) mmol/L Carbon Dioxide (22-30) mmol/L BUN (9-20) mg/dL Creatinine (0.66-1.25) mg/dL Glucose (74-99) mg/dL Calcium (8.4-10.2) mg/dL TSH 2.570 (0.465-4.680) mIU/L Adrenal panel 10/30/19 10/30/19 10/31/19 Range/Units 20:34 23:55 08:44 Sodium 137 140 (137-145) mmol/L Potassium 5.9 H 4.9 4.9 (3.5-5.1) mmol/L Chloride 105 109 H (98-107) mmol/L Carbon Dioxide 25 24 (22-30) mmol/L BUN 40 H 35 H (9-20) mg/dL Creatinine 1.50 H 1.26 H (0.66-1.25) mg/dL Glucose 256 H 142 H (74-99) mg/dL Calcium 8.2 L 8.0 L (8.4-10.2) mg/dL Total Bilirubin 0.9 (0.2-1.3) mg/dL AST 85 H (17-59) U/L ALT 132 H (4-49) U/L Alkaline Phosphatase 159 H (38-126) U/L Total Protein 6.8 (6.3-8.2) g/dL Albumin 3.5 (3.5-5.0) g/dL
[2019-10-31 11:14] LABS: Eosinophils # (M) 0.14 k/uL (0-0.7); Lymphocytes # (M) 1.56 k/uL (1.0-4.8); Monocytes # (M) 0.57 k/uL (0-1.0); Neutrophils # (M) 4.83 k/uL (1.3-7.7); Neutrophils % (M) 68 %; Nucleated Red Blood Cells 0 /100 WBC (0-0); Total Cells Counted 100
--- NOTE | 2019-10-31 11:14 | P.HPIM ---
History of Present Illness This is a pleasant 64 years old male with past medical history of asthma/COPD, CVA/TIA, diabetes mellitus, deep venous thrombosis, GERD, hyperlipidemia, hypertension, primary osteoarthritis, pulmonary embolism, migraine, pneumothora x. Patient states that he was moving his inflammatory yesterday when his hand slipped, he lost balance and fell on his right side, after that he has difficulty getting up and he has pain in his right hip area. Patient denies loss of consciousness or seizure-like activities. Patient has been complaining of from progressive dyspnea since August 2019, becoming more severe for him that he has difficulty only for 20 feet before he got gasping for air. He has with cough and phlegm with says is creamy, grayish and sometimes agreed He is a ex-smoker, he quit on August 2019, he denies alcohol or illicit drugs. On admission patient was slightly bradycardic with heart rate 51-55, patient saturation was 76% on 15 L and currently 93% on 6 L. Left showing unremarkable CBC, INR 3.8, pH 7.3, pCO2 42, pO2 243. Potassium 5.9, repeated 4.9, sodium 137, creatinine 1.5, baseline 0.9-1.3. Suture troponin are negative with 0.014 and less than 0.012. ProBNP is 2020, liver enzymes mildly elevated with AST 85 and ALT 132 (improved from last months ) but normal bilirubin of 0.9 EKG showing sinus bradycardia at 46 with QTC [address]-T changes. CT of the hip showing soft tissue density/mass 7.9 x 6.7 x 5.3 cm in the right gluteal musculature posterior right hip, intramuscular hematoma versus neoplasm, anasarca, right hip was arthritis. 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 Hip/pelvic x-ray: No fracture. Chest x- ray showing possible pulmonary vascular congestion mild patchy left basilar atelectasis versus infiltrate by radiologist On admission patient was sent to the #100 mL per hour and drivers' cash clerk has been consulted Review of Systems CONSTITUTIONAL: No fever, no malaise, no fatigue. HEENT: No recent visual problems or hearing problems. Denied any sore throat. CARDIOVASCULAR: No orthopnea, PND, no palpitations, no syncope. PULMONARY: No shortness of breath, no cough, no hemoptysis. GASTROINTESTINAL: No diarrhea, no nausea, no vomiting, no abdominal pain. Normoactive bowel sounds. NEUROLOGICAL: No headaches, no weakness, no numbness. HEMATOLOGICAL: Denies any bleeding or petechiae. GENITOURINARY: Denies any burning micturition, frequency, or urgency. MUSCULOSKELETAL/RHEUMATOLOGICAL: Denies any joint pain, swelling, or any muscle pain. ENDOCRINE: Denies any polyuria or polydipsia. Past Medical History Past Medical History: Asthma, COPD, CVA/TIA, Diabetes Mellitus, Deep Vein Thrombosis (DVT), GERD/Reflux, Hyperlipidemia, Hypertension, Neurologic Disorder, Osteoarthritis (OA), Pneumonia, Pulmonary Embolus (PE) Additional Past Medical History / Comment(s): MIGRAINES. " ANITICOAGULANT LUPUS". PNEUMOTHRORAX. PERIPHERAL EDEMA. History of Any Multi-Drug Resistant Organisms: None Reported Past Surgical History: Adenoidectomy, Appendectomy, Tonsillectomy Additional Past Surgical History / Comment(s): HAILE FILTER . VEIN STRIPPING. STENTS IN "PELVIC AREA" NOVEMBER 2004. Past Anesthesia/Blood Transfusion Reactions: No Reported Reaction Past Psychological History: No Psychological Hx Reported Additional Psychological History / Comment(s): TAKES CYMBALTA FOR CARPAL TUNNEL. Smoking Status: Former smoker Past Alcohol Use History: None Reported Past Drug Use History: None Reported - Past Family History Mother Additional Family Medical History / Comment(s): heart disease, peripheral vascular disease. Father Family Medical History: Unable to Obtain Medications and Allergies Home Medications Medication Instructions Recorded Confirmed Type Atorvastatin [Lipitor] 80 mg PO HS 01/09/14 10/31/19 History Pregabalin [Lyrica] 300 mg PO BID 01/09/14 10/31/19 History Topiramate [Topamax] 25 mg PO BID 01/09/14 10/31/19 History Warfarin Sodium [Coumadin] 6 mg PO MOTUWEFRSA 01/09/14 10/31/19 History metFORMIN HCL [Glucophage] 500 mg PO BID 01/09/14 10/31/19 History Multivitamins, Thera [Multivitamin 1 tab PO DAILY 11/15/17 10/31/19 History (formulary)] Warfarin Sodium 3 mg PO SUTH 05/10/18 10/31/19 History Albuterol Nebulized [Ventolin 2.5 mg INHALATION RT-DAILY PRN 08/15/19 10/31/19 History Nebulized] Docusate [Colace] 100 mg PO DAILY PRN 08/15/19 10/31/19 History Nortriptyline [Pamelor] 50 mg PO HS 08/15/19 10/31/19 History Omeprazole [PriLOSEC] 20 mg PO BID 08/15/19 10/31/19 History Aspirin 81 mg PO DAILY 30 Days #30 chew 08/26/19 10/31/19 Rx Furosemide [Lasix] 40 mg PO DAILY 30 Days #30 tablet 08/26/19 10/31/19 Rx Amiodarone [Cordarone] 200 mg PO TID 30 Days #90 tab 09/04/19 10/31/19 Rx Celecoxib [CeleBREX] 200 mg PO DIRECTED 10/30/19 10/31/19 History Insulin NPH Human Isophane 70 units SQ DAILY 10/30/19 10/31/19 History [NovoLIN N] Lisinopril 20 mg PO DAILY 10/30/19 10/30/19 History Loratadine 10 mg PO DAILY 10/30/19 10/31/19 History Metoprolol Tartrate [Lopressor] 50 mg PO BID 10/30/19 10/31/19 History Spiriva Respimat 1.25mcg/[place] 2 spray INHALATION RT-BID 10/31/19 10/31/19 History oxyCODONE-APAP 10-325MG [Percocet 1 tab PO Q6HR PRN 10/31/19 10/31/19 History 10-325 mg] Allergies Allergy/AdvReac Type Severity Reaction Status Date / Time baclofen Allergy Unknown Verified 10/31/19 09:51 Physical Exam Vitals: Vital Signs Temp Pulse Pulse Resp BP BP Pulse Ox 10/31/19 04:47 98.2 F 55 L 22 93 L 10/31/19 01:36 96.7 F L 51 L 18 154/82 100 10/31/19 01:07 97.6 F 46 L 22 93/52 76 L 10/30/19 23:56 50 L 22 97/82 96 10/30/19 22:47 47 L 30 H 131/99 96 10/30/19 21:40 51 L 16 144/98 10/30/19 21:38 14 10/30/19 19:55 97.6 F 54 L 18 118/76 95 Intake and Output 10/30/19 10/31/19 10/31/19 22:59 06:59 14:59 Intake Total 580 Balance 580 Intake: Intake, IV Titration 100 Amount Sodium Chloride 0.9% 1, 100 000 ml @ 100 mls/hr IV . Q10H HELENE Rx#:[id number] Oral 480 Other: # Voids 1 Weight 144.242 kg 154.5 kg GENERAL: The patient is alert and oriented x3, not in any acute distress. Well developed, well nourished. HEENT: Pupils are round and equally reacting to light. EOMI. No scleral icterus. No conjunctival pallor. Normocephalic, atraumatic. No pharyngeal erythema. No thyromegaly. CARDIOVASCULAR: S1 and S2 present. No murmurs, rubs, or gallops. PULMONARY: Chest is clear to auscultation, no wheezing or crackles. ABDOMEN: Soft, nontender, nondistended, normoactive bowel sounds. No palpable organomegaly. MUSCULOSKELETAL: No joint swelling or deformity. EXTREMITIES: No cyanosis, clubbing, or pedal edema. NEUROLOGICAL: Gross neurological examination did not reveal any focal deficits. SKIN: No rashes. No petechiae Results CBC & Chem 7: 10/31/19 08:44 10/31/19 08:44 Labs: Abnormal Lab Results - Last 24 Hours (Table) 10/30/19 10/30/19 10/30/19 Range/Units 20:34 20:34 20:34 RBC 4.04 L (4.30-5.90) m/uL Hgb 12.5 L (13.0-17.5) gm/dL MCV 100.6 H (80.0-100.0) fL MCHC 30.8 L (31.0-37.0) g/dL PT 37.5 H (9.0-12.0) sec INR 3.8 H (<1.2) APTT 36.6 H (22.0-30.0) sec ABG pH (7.35-7.45) ABG pO2 (83-108) mmHg ABG O2 Saturation (94-97) % Potassium 5.9 H (3.5-5.1) mmol/L BUN 40 H (9-20) mg/dL Creatinine 1.50 H (0.66-1.25) mg/dL Glucose 256 H (74-99) mg/dL Calcium 8.2 L (8.4-10.2) mg/dL AST 85 H (17-59) U/L ALT 132 H (4-49) U/L Alkaline Phosphatase 159 H (38-126) U/L 10/30/19 Range/Units 22:32 RBC (4.30-5.90) m/uL Hgb (13.0-17.5) gm/dL MCV (80.0-100.0) fL MCHC (31.0-37.0) g/dL PT (9.0-12.0) sec INR (<1.2) APTT (22.0-30.0) sec ABG pH 7.32 L (7.35-7.45) ABG pO2 243 H (83-108) mmHg ABG O2 Saturation 100.0 H (94-97) % Potassium (3.5-5.1) mmol/L BUN (9-20) mg/dL Creatinine (0.66-1.25) mg/dL Glucose (74-99) mg/dL Calcium (8.4-10.2) mg/dL AST (17-59) U/L ALT (4-49) U/L Alkaline Phosphatase (38-126) U/L Thrombosis Risk Factor Assmnt - Choose All That Apply Each Factor Represents 1 point: Abnormal pulmonary function (COPD), Heart failure (<1month), Obesity (BMI >25), Swollen legs (current) Each Risk Factor Represents 2 Points: Age 61-74 years Other congenital or acquired thrombophilia - If yes, enter type in comment: No Thrombosis Risk Factor Assessment Total Risk Factor Score: 6 Thrombosis Risk Factor Assessment Level: High Risk Assessment and Plan Assessment: -Anasarca, with pulmonary vascular congestion suspicious for heart failure, on the top of mild kidney injury -Acute on chronic systolic heart failure, with ejection fraction 30-35% -Acute COPD exacerbation -Acute hypoxic respiratory failure, secondary to above -Difficulty walking with a fall, CT of the hip showing soft tissue density/mass 7.9 x 6.7 x 5.3 cm in the right gluteal musculature posterior right hip, intramuscular hematoma versus neoplasm -Mild acute kidney injury with hyperkalemia, mostly cardiorenal syndrome -Paroxysmal atrial fibrillation -Right hip osteoarthritis -Elevated liver enzymes, improving gradually -Recent history of left foot diabetic ulcer status post debridement on 08/2019 -Hypertension -Diabetes mellitus -Hyperlipidemia -History of DVT/PE on Coumadin -History of CVA/TIA -Primary osteoarthritis -Migraine -History of pneumothorax Plan: This is a pleasant 64 years old male who presents with fall, right hip hematoma/neoplasm, anasarca possible CHF. Discontinue IV fluids Cardiology consult already called. Continue with Lasix. Surgical consult for right gluteal hematoma and check an ultrasound . Hold Coumadin and follow up INR. Continue with insulin but hold metformin and continue with insulin sliding scale. Pain management. Keep monitoring oxygen saturation Labs and medication were reviewed.. Continue same treatment. Continue with symptomatic treatment. Resume home medication. Monitor lytes and vitals. DVT and GI prophylaxis. Further recommendations of the clinical course of the patient DVT prophylaxis: On Coumadin GI Prophylaxis: Ppi PT/OT: Pending Prognosis is guarded
[2019-10-31 11:19] LABS: Poikilocytosis (M) Present
--- NOTE | 2019-10-31 11:45 | ECHOF ---
Referral Reason:limited, assess lvf MEASUREMENTS -------- HEIGHT: 190.5 cm WEIGHT: 158.8 kg BP: 104/57 IVSd: 1.4 cm (0.6 - 1.1) LVIDd: 4.7 cm (3.9 - 5.3) LVPWd: 1.6 cm (0.6 - 1.1) IVSs: 1.7 cm LVIDs: 3.3 cm LVPWs: 1.0 cm FINDINGS -------- Resting bradycardia (HR<60bpm). This was a technically difficult study with suboptimal views. Morbid Obesity Limited Study There is moderate concentric left ventricular hypertrophy. Overall left ventricular systolic functi on is mildly impaired with, an EF between 45 - 50 %.apical hypokinesis Lumason used There is no pericardial effusion. CONCLUSIONS -------- 1. Resting bradycardia (HR<60bpm). 2. This was a technically difficult study with suboptimal views. 3. Morbid Obesity 4. Limited Study 5. There is moderate concentric left ventricular hypertrophy. 6. Overall left ventricular systolic function is mildly impaired with, an EF between 45 - 50 %. 7. Lumason used 8. There is no pericardial effusion. SUPERVISOR ESTIMATOR AND DRAFTER: Lorene Eddy RDCS
[2019-10-31 11:53] LABS: Glucose,Whole Blood 176 mg/dL (75-99)
[2019-10-31] MEDS: methylPREDNISolone SOD SUCCI 40 MG/ML 1 ML VIAL IV SCH ×3 (13:18→23:48)
[2019-10-31] MEDS: FUROSEMIDE 10 MG/ML 4 ML VIAL IV SCH ×2 (13:18→21:00)
[2019-10-31] MEDS: DOXYCYCLINE 100 MG in SODIUM CHLORIDE 0.9% 100 ML IVPB SCH ×2 (13:19→21:17)
--- NOTE | 2019-10-31 13:30 | P.CONS ---
History of Present Illness - Reason for Consult Consult date: 10/31/19 Wound care - History of Present Illness This is a 64-year-old patient known to the wound care center with a nonhealing ulceration to the left plantar foot. This is a diabetic foot ulcer Sorenson grade 3. Patient history of amputation. Patient's past medical history significant for diabetes, COPD, CVA, acid reflux, hyperlipidemia, hypertension, osteoarthritis, pulmonary embolism. Patient is noncompliant with offloading. Patient has offloading boot that he does not utilize. Review of Systems Review Of Systems: Constitutional: No fever, no chills, no night sweats. No weight change. No weakness, fatigue or lethargy. No daytime sleepiness. Integumentary:reports wounds, no lesions. No rash or pruritus. No unusual bruising. No change in hair or nails. Past Medical History Past Medical History: Asthma, COPD, CVA/TIA, Diabetes Mellitus, Deep Vein Thrombosis (DVT), GERD/Reflux, Hyperlipidemia, Hypertension, Neurologic Disord er, Osteoarthritis (OA), Pneumonia, Pulmonary Embolus (PE) Additional Past Medical History / Comment(s): MIGRAINES. " ANITICOAGULANT LUPUS". PNEUMOTHRORAX. PERIPHERAL EDEMA. History of Any Multi-Drug Resistant Organisms: None Reported Past Surgical History: Adenoidectomy, Appendectomy, Tonsillectomy Additional Past Surgical History / Comment(s): HAILE FILTER . VEIN STRIPPING. STENTS IN "PELVIC AREA" NOVEMBER 2004. Past Anesthesia/Blood Transfusion Reactions: No Reported Reaction Past Psychological History: No Psychological Hx Reported Additional Psychological History / Comment(s): TAKES CYMBALTA FOR CARPAL TUNNEL. Smoking Status: Former smoker Past Alcohol Use History: None Reported Past Drug Use History: None Reported - Past Family History Mother Additional Family Medical History / Comment(s): heart disease, peripheral vascular disease. Father Family Medical History: Unable to Obtain Medications and Allergies Home Medications Medication Instructions Recorded Confirmed Type Atorvastatin [Lipitor] 80 mg PO HS 01/09/14 10/31/19 History Pregabalin [Lyrica] 300 mg PO BID 01/09/14 10/31/19 History Topiramate [Topamax] 25 mg PO BID 01/09/14 10/31/19 History Warfarin Sodium [Coumadin] 6 mg PO MOTUWEFRSA 01/09/14 10/31/19 History metFORMIN HCL [Glucophage] 500 mg PO BID 01/09/14 10/31/19 History Multivitamins, Thera [Multivitamin 1 tab PO DAILY 11/15/17 10/31/19 History (formulary)] Warfarin Sodium 3 mg PO SUTH 05/10/18 10/31/19 History Albuterol Nebulized [Ventolin 2.5 mg INHALATION RT-DAILY PRN 08/15/19 10/31/19 History Nebulized] Docusate [Colace] 100 mg PO DAILY PRN 08/15/19 10/31/19 History Nortriptyline [Pamelor] 50 mg PO HS 08/15/19 10/31/19 History Omeprazole [PriLOSEC] 20 mg PO BID 08/15/19 10/31/19 History Aspirin 81 mg PO DAILY 30 Days #30 chew 08/26/19 10/31/19 Rx Furosemide [Lasix] 40 mg PO DAILY 30 Days #30 tablet 08/26/19 10/31/19 Rx Amiodarone [Cordarone] 200 mg PO TID 30 Days #90 tab 09/04/19 10/31/19 Rx Celecoxib [CeleBREX] 200 mg PO DIRECTED 10/30/19 10/31/19 History Insulin NPH Human Isophane 70 units SQ DAILY 10/30/19 10/31/19 History [NovoLIN N] Lisinopril 20 mg PO DAILY 10/30/19 10/30/19 History Loratadine 10 mg PO DAILY 10/30/19 10/31/19 History Metoprolol Tartrate [Lopressor] 50 mg PO BID 10/30/19 10/31/19 History Spiriva Respimat 1.25mcg/Liberty 2 spray INHALATION RT-BID 10/31/19 10/31/19 Histo ry oxyCODONE-APAP 10-325MG [Percocet 1 tab PO Q6HR PRN 10/31/19 10/31/19 History 10-325 mg] Allergies Allergy/AdvReac Type Severity Reaction Status Date / Time baclofen Allergy Unknown Verified 10/31/19 09:51 Physical Exam Vitals: Vital Signs Temp Pulse Pulse Resp BP BP Pulse Ox 10/31/19 08:38 58 L 10/31/19 08:29 58 L 10/31/19 08:00 97.8 F 76 20 104/57 91 L 10/31/19 04:47 98.2 F 55 L 22 93 L 10/31/19 01:36 96.7 F L 51 L 18 154/82 100 10/31/19 01:07 97.6 F 46 L 22 93/52 76 L 10/30/19 23:56 50 L 22 97/82 96 10/30/19 22:47 47 L 30 H 131/99 96 10/30/19 21:40 51 L 16 144/98 10/30/19 21:38 14 10/30/19 19:55 97.6 F 54 L 18 118/76 95 Intake and Output 10/30/19 10/31/19 10/31/19 22:59 06:59 14:59 Intake Total 580 360 Balance 580 360 Intake: Intake, IV Titration 100 Amount Sodium Chloride 0.9% 1, 100 000 ml @ 100 mls/hr IV . Q10H [facility] Rx#:[id number] Oral 480 360 Other: # Voids 1 1 # Bowel Movements 1 Weight 144.242 kg 154.5 kg Physical exam: General Appearance: Alert, cooperative, no distress, appears stated age. Skin: Diabetic foot ulcer Sorenson grade 3 to the left plantar foot with fat layer exposure medium out of Celine noticed drainage, measuring approximately 0.8 x 4.3 x by 4 cm, large amount of red pink granulation throughout the wound bed, small amount of necrotic tissue including adherent Slough. Periwound shows callus and maceration. Right plantar great toe ulceration is epithelialized all other Skin color, texture, tugor normal, no rashes or lesions. Neurologic: Alert oriented x3 Results CBC & Chem 7: 10/31/19 08:44 10/31/19 08:44 Labs: Abnormal Lab Results - Last 24 Hours (Table) 10/30/19 10/30/19 10/30/19 Range/Units 20:34 20:34 20:34 RBC 4.04 L (4.30-5.90) m/uL Hgb 12.5 L (13.0-17.5) gm/dL Hct (39.0-53.0) % MCV 100.6 H (80.0-100.0) fL MCHC 30.8 L (31.0-37.0) g/dL RDW (11.5-15.5) % PT 37.5 H (9.0-12.0) sec INR 3.8 H (<1.2) APTT 36.6 H (22.0-30.0) sec ABG pH (7.35-7.45) ABG pO2 (83-108) mmHg ABG O2 Saturation (94-97) % Potassium 5.9 H (3.5-5.1) mmol/L Chloride (98-107) mmol/L BUN 40 H (9-20) mg/dL Creatinine 1.50 H (0.66-1.25) mg/dL Glucose 256 H (74-99) mg/dL POC Glucose (mg/dL) (75-99) mg/dL Calcium 8.2 L (8.4-10.2) mg/dL AST 85 H (17-59) U/L ALT 132 H (4-49) U/L Alkaline Phosphatase 159 H (38-126) U/L 10/30/19 10/31/19 10/31/19 Range/Units 22:32 08:44 08:44 RBC 3.71 L (4.30-5.90) m/uL Hgb 11.7 L (13.0-17.5) gm/dL Hct 37.9 L (39.0-53.0) % MCV 102.2 H (80.0-100.0) fL MCHC 30.9 L (31.0-37.0) g/dL RDW 15.6 H (11.5-15.5) % PT (9.0-12.0) sec INR (<1.2) APTT (22.0-30.0) sec ABG pH 7.32 L (7.35-7.45) ABG pO2 243 H (83-108) mmHg ABG O2 Saturation 100.0 H (94-97) % Potassium (3.5-5.1) mmol/L Chloride 109 H (98-107) mmol/L BUN 35 H (9-20) mg/dL Creatinine 1.26 H (0.66-1.25) mg/dL Glucose 142 H (74-99) mg/dL POC Glucose (mg/dL) (75-99) mg/dL Calcium 8.0 L (8.4-10.2) mg/dL AST (17-59) U/L ALT (4-49) U/L Alkaline Phosphatase (38-126) U/L 10/31/19 10/31/19 10/31/19 Range/Units 09:09 09:19 11:52 RBC (4.30-5.90) m/uL Hgb (13.0-17.5) gm/dL Hct (39.0-53.0) % MCV (80.0-100.0) fL MCHC (31.0-37.0) g/dL RDW (11.5-15.5) % PT 37.2 H (9.0-12.0) sec INR 3.8 H (<1.2) APTT (22.0-30.0) sec ABG pH (7.35-7.45) ABG pO2 (83-108) mmHg ABG O2 Saturation (94-97) % Potassium (3.5-5.1) mmol/L Chloride (98-107) mmol/L BUN (9-20) mg/dL Creatinine (0.66-1.25) mg/dL Glucose (74-99) mg/dL POC Glucose (mg/dL) 124 H 176 H (75-99) mg/dL Calcium (8.4-10.2) mg/dL AST (17-59) U/L ALT (4-49) U/L Alkaline Phosphatase (38-126) U/L Assessment and Plan (1) Diabetic foot ulcer Current Visit: Yes Status: Acute Code(s): E11.621 - TYPE 2 DIABETES MELLITUS WITH FOOT ULCER; L97.509 - NON-PRESSURE CHRONIC ULCER OTH PRT UNSP FOOT W UNSP SEVERITY SNOMED Code(s): 260227150 Plan: Continue with scheduled wound care treatment. Patient will have dressing changes on Monday of absorptive silver rope dry, dry gauze, rolled gauze secured with paper tape and an elastic i.e. Ruperto bandage. Continue to offload the left lower extremity. Thank you kindly for the consultation any questions please contact the wound care center DNP note has been reviewed and discussed with Dr. Bates and the impression and plan of care has been directed as dictated.
[2019-10-31 16:46] LABS: Glucose,Whole Blood 270 mg/dL (75-99)
[2019-10-31] MEDS ORDERED: INSULIN ASPART (NovoLOG) 100 UNIT/ML VIAL SQ ONE (17:23)
[2019-10-31] MEDS: INSULIN ASPART (NovoLOG) 100 UNIT/ML VIAL SQ SCH ×2 (17:36→21:01)
[2019-10-31 20:32] LABS: Glucose,Whole Blood 311 mg/dL (75-99)
[2019-10-31] MEDS: METOPROLOL TARTRATE 25 MG TAB PO SCH (20:58)
[2019-10-31] MEDS: ATORVASTATIN 80 MG TAB PO SCH (20:58)
[2019-10-31] MEDS: NORTRIPTYLINE 25 MG CAP PO SCH (20:59)
[2019-10-31] MEDS: Acetaminophen-Codeine 300-30mg TAB PO PRN (21:21)
[2019-11-01] MEDS ORDERED: WARFARIN SODIUM 6 MG PO SCH (00:43)
[2019-11-01 05:58] LABS: Glucose,Whole Blood 297 mg/dL (75-99)
[2019-11-01] MEDS: INSULIN ASPART (NovoLOG) 100 UNIT/ML VIAL SQ SCH ×4 (06:33→20:58)
[2019-11-01 08:16] LABS: Basophils % (A) 0 %; Eosinophils % (A) 0 %; HCT 41.3 % (39.0-53.0); HGB 12.8 gm/dL (13.0-17.5); Hypochromasia Marked; Lymphocytes # (A) 0.7 k/uL (1.0-4.8); Lymphocytes % (A) 8 %; MCH 32.1 pg (25.0-35.0); MCV 103.6 fL (80.0-100.0); Macrocytosis Moderate; Mean Platelet Volume 9.2; Monocytes # (A) 0.2 k/uL (0-1.0); Monocytes % (A) 2 %; Neutrophils # (A) 7.8 k/uL (1.3-7.7); Neutrophils % (A) 90 %; Platelet Count 178 k/uL (150-450); RBC 3.98 m/uL (4.30-5.90); RDW 15.4 % (11.5-15.5); WBC 8.7 k/uL (3.8-10.6)
[2019-11-01 08:20] LABS: INR 2.7 (<1.2); Prothrombin Time 26.7 sec (9.0-12.0)
[2019-11-01 08:27] LABS: Albumin 3.5 g/dL (3.5-5.0); Calcium 8.4 mg/dL (8.4-10.2); Potassium 4.3 mmol/L (3.5-5.1); Total Bilirubin 0.9 mg/dL (0.2-1.3); Total Protein 6.9 g/dL (6.3-8.2)
[2019-11-01] MEDS: IPRATROPIUM 0.5 MG/2.5 ML NEBU INHALATION SCH ×4 (08:30→19:11)
[2019-11-01] MEDS: Acetaminophen-Codeine 300-30mg TAB PO PRN (08:46)
[2019-11-01] MEDS: ASPIRIN 81 MG PO SCH (08:47)
[2019-11-01] MEDS: AMIODARONE 200 MG TAB PO SCH ×3 (08:47→20:01)
[2019-11-01] MEDS: TOPIRAMATE 25 MG TAB PO SCH ×2 (08:47→20:01)
[2019-11-01] MEDS: MULTIVITAMINS, THERA 1 EACH TAB PO SCH (08:47)
[2019-11-01] MEDS: FUROSEMIDE 10 MG/ML 4 ML VIAL IV SCH ×2 (08:47→20:01)
[2019-11-01] MEDS: methylPREDNISolone SOD SUCCI 40 MG/ML 1 ML VIAL IV SCH ×2 (08:47→17:25)
[2019-11-01] MEDS: METOPROLOL TARTRATE 25 MG TAB PO SCH ×2 (08:47→20:02)
[2019-11-01] MEDS: LORATADINE 10 MG TAB PO SCH (08:47)
[2019-11-01] MEDS: PANTOPRAZOLE 40 MG/10 ML VIAL IV SCH (08:47)
[2019-11-01] MEDS: INSULIN NPH 300 UNIT/3 ML VIAL SQ SCH (08:48)
[2019-11-01] MEDS: DOXYCYCLINE 100 MG in SODIUM CHLORIDE 0.9% 100 ML IVPB SCH ×2 (09:15→20:02)
--- NOTE | 2019-11-01 09:22 | P.PN ---
<Baylee Tristan tJ - Last Filed: 11/01/19 09:18> Subjective Progress Note Date: 11/01/19 CHIEF COMPLAINT: Right gluteal hematoma versus neoplasm HISTORY OF PRESENT ILLNESS: Patient examined this morning. He is sitting up in the chair. He reports his pain is tolerable and slightly better than yesterday. INR is 2.7. Hemoglobin 12.8 PHYSICAL EXAM: VITAL SIGNS: Reviewed. GENERAL: Well-developed in no acute distress. HEENT: No sclera icterus. Extraocular movements grossly intact. Moist buccal mucosa. Head is atraumatic, normocephalic. ABDOMEN: Soft. Nondistended. Nontender. NEUROLOGIC: Alert and oriented. Cranial nerves II through XII grossly intact. EXTREMITIES: Ecchymosis noted to posterior aspect of right lower extremity. Mild tenderness with palpation ASSESSMENT: 1. Fall from standing 2. Right hip/gluteal hematoma secondary to fall 3. Right hip pain secondary to above 4. Coumadin coagulopathy PLAN: -Okay to continue Coumadin from a surgical standpoint -Monitor hemoglobin -Pain control -No surgical intervention recommended Nurse practitioner note has been reviewed by physician. Signing provider agrees with the documented findings, assessment, and plan of care. Objective - Vital Signs Vital signs: Vital Signs Temp 98.3 F 11/01/19 08:00 Pulse 60 11/01/19 08:43 Resp 20 11/01/19 08:00 BP 111/65 11/01/19 08:00 Pulse Ox 97 11/01/19 08:00 Intake & Output 10/31/19 11/01/19 11/01/19 18:59 06:59 18:59 Intake Total 460 460 240 Output Total 1800 1900 Balance -1340 -1440 240 Weight 153.2 kg Intake: Intake, IV Titration 100 100 Amount Doxycycline 100 mg In 100 100 Sodium Chloride 0.9% 100 ml @ 100 mls/hr IVPB Q12HR [facility] [place] Rx#:[id number] Oral 360 360 240 Output: Urine 1800 1900 Other: # Voids 1 # Bowel Movements 1 - Labs CBC & Chem 7: 11/01/19 06:36 11/01/19 06:36 Labs: Abnormal Lab Results - Last 24 Hours (Table) 10/31/19 10/31/19 10/31/19 Range/Units 08:44 09:09 09:19 RBC 3.71 L (4.30-5.90) m/uL Hgb 11.7 L (13.0-17.5) gm/dL Hct 37.9 L (39.0-53.0) % MCV 102.2 H (80.0-100.0) fL MCHC 30.9 L (31.0-37.0) g/dL RDW 15.6 H (11.5-15.5) % Neutrophils # (1.3-7.7) k/uL Lymphocytes # (1.0-4.8) k/uL PT 37.2 H (9.0-12.0) sec INR 3.8 H (<1.2) BUN (9-20) mg/dL Glucose (74-99) mg/dL POC Glucose (mg/dL) 124 H (75-99) mg/dL ALT (4-49) U/L Alkaline Phosphatase (38-126) U/L 10/31/19 10/31/19 10/31/19 Range/Units 11:52 16:42 20:29 RBC (4.30-5.90) m/uL Hgb (13.0-17.5) gm/dL Hct (39.0-53.0) % MCV (80.0-100.0) fL MCHC (31.0-37.0) g/dL RDW (11.5-15.5) % Neutrophils # (1.3-7.7) k/uL Lymphocytes # (1.0-4.8) k/uL PT (9.0-12.0) sec INR (<1.2) BUN (9-20) mg/dL Glucose (74-99) mg/dL POC Glucose (mg/dL) 176 H 270 H 311 H (75-99) mg/dL ALT (4-49) U/L Alkaline Phosphatase (38-126) U/L 11/01/19 11/01/19 11/01/19 Range/Units 05:47 06:36 06:36 RBC 3.98 L (4.30-5.90) m/uL Hgb 12.8 L (13.0-17.5) gm/dL Hct (39.0-53.0) % MCV 103.6 H (80.0-100.0) fL MCHC (31.0-37.0) g/dL RDW (11.5-15.5) % Neutrophils # 7.8 H (1.3-7.7) k/uL Lymphocytes # 0.7 L (1.0-4.8) k/uL PT (9.0-12.0) sec INR (<1.2) BUN 32 H (9-20) mg/dL Glucose 284 H (74-99) mg/dL POC Glucose (mg/dL) 297 H (75-99) mg/dL ALT 114 H (4-49) U/L Alkaline Phosphatase 162 H (38-126) U/L 11/01/19 Range/Units 06:36 RBC (4.30-5.90) m/uL Hgb (13.0-17.5) gm/dL Hct (39.0-53.0) % MCV (80.0-100.0) fL MCHC (31.0-37.0) g/dL RDW (11.5-15.5) % Neutrophils # (1.3-7.7) k/uL Lymphocytes # (1.0-4.8) k/uL PT 26.7 H (9.0-12.0) sec INR 2.7 H (<1.2) BUN (9-20) mg/dL Glucose (74-99) mg/dL POC Glucose (mg/dL) (75-99) mg/dL ALT (4-49) U/L Alkaline Phosphatase (38-126) U/L <Johnny Bateman - Last Filed: 11/01/19 11:08> Subjective As above. Patient says his pain is less than yesterday. No change in swelling. INR down to 2.7. Continue observation. No surgical intervention planned. We'll sign off. Call if needed. Objective - Vital Signs Vital signs: Vital Signs Temp 98.3 F 11/01/19 08:00 Pulse 60 11/01/19 08:43 Resp 20 11/01/19 08:00 BP 111/65 11/01/19 08:00 Pulse Ox 97 11/01/19 08:00 Intake & Output 10/31/19 11/01/19 11/01/19 18:59 06:59 18:59 Intake Total 460 460 240 Output Total 1800 1900 Balance -1340 -1440 240 Weight 153.2 kg Intake: Intake, IV Titration 100 100 Amount Doxycycline 100 mg In 100 100 Sodium Chloride 0.9% 100 ml @ 100 mls/hr IVPB Q12HR [facility] [place] Rx#:[id number] Oral 360 360 240 Output: Urine 1800 1900 Other: # Voids 1 # Bowel Movements 1 - Labs CBC & Chem 7: 11/01/19 06:36 11/01/19 06:36 Labs: Abnormal Lab Results - Last 24 Hours (Table) 10/31/19 10/31/19 10/31/19 Range/Units 11:52 16:42 20:29 RBC (4.30-5.90) m/uL Hgb (13.0-17.5) gm/dL MCV (80.0-100.0) fL Neutrophils # (1.3-7.7) k/uL Lymphocytes # (1.0-4.8) k/uL PT (9.0-12.0) sec INR (<1.2) BUN (9-20) mg/dL Glucose (74-99) mg/dL POC Glucose (mg/dL) 176 H 270 H 311 H (75-99) mg/dL ALT (4-49) U/L Alkaline Phosphatase (38-126) U/L 11/01/19 11/01/19 11/01/19 Range/Units 05:47 06:36 06:36 RBC 3.98 L (4.30-5.90) m/uL Hgb 12.8 L (13.0-17.5) gm/dL MCV 103.6 H (80.0-100.0) fL Neutrophils # 7.8 H (1.3-7.7) k/uL Lymphocytes # 0.7 L (1.0-4.8) k/uL PT (9.0-12.0) sec INR (<1.2) BUN 32 H (9-20) mg/dL Glucose 284 H (74-99) mg/dL POC Glucose (mg/dL) 297 H (75-99) mg/dL ALT 114 H (4-49) U/L Alkaline Phosphatase 162 H (38-126) U/L 11/01/19 Range/Units 06:36 RBC (4.30-5.90) m/uL Hgb (13.0-17.5) gm/dL MCV (80.0-100.0) fL Neutrophils # (1.3-7.7) k/uL Lymphocytes # (1.0-4.8) k/uL PT 26.7 H (9.0-12.0) sec INR 2.7 H (<1.2) BUN (9-20) mg/dL Glucose (74-99) mg/dL POC Glucose (mg/dL) (75-99) mg/dL ALT (4-49) U/L Alkaline Phosphatase (38-126) U/L
[2019-11-01] MEDS ORDERED: MORPHINE SULFATE 2 MG/ML SYRINGE IVP PRN (09:46)
--- NOTE | 2019-11-01 10:11 | P.PN ---
Subjective Progress Note Date: 11/01/19 This is a 64-year-old gentleman who follows with Dr. Guillermo in the office. He has a known history of COPD, DVT, pulmonary embolism, hypertension, diabetes, diabetic neuropathy, degenerative joint disease, hyperlipidemia. He is chronically on Coumadin for pulmonary embolism and DVT. Patient also has a significant wound on his left foot for which he follows at the wound clinic. History of prior TIA. On his recent admission to the hospital in August patient was found to be in atrial fibrillation with a rapid ventricular response. Of note, patient does have a history of a Isabell filter. An echocardiogram with Doppler study was performed in August which revealed an ejection fraction of 30-35% at the time of the echo it is documented that the patient was in atrial fibrillation with a rapid ventricular response. Prior to that according to the office note patient's echoes have revealed a normal left ventricular systolic function. The patient most recently has seen Dr. Heaton in the office on September 26 he was recommended to have a Holter monitor which she was to rock picker today, he was also recommended to undergo a stress test which was scheduled this upcoming Monday to rule out ischemia. He presents to the hospital on this occasion. He presents to the hospital on this occasion after tripping over a small stool in his house and falling to the ground. The patient denies any syncope at this time, he does state intermittently that he feels mildly dizzy but never to the point where he feels like he could pass out. He also states that over the past couple of weeks he has noticed worsening in his exertional shortness of breath. He states that just walking a very short distance he has to stop and catch his breath and then start walking again. He denies any chest pressure or heaviness. His EKG on presentation here showed a sinus bradycardia with a heart rate in the high 40s. Blood pressure this morning 104/50 with a heart rate of 58, he is 91% on 8 L of oxygen. His chest x-ray shows similar cardiomegaly and interstitial changes, possible mild pulmonary vascular congestion. Mild patchy left basilar atelectasis versus infiltrate. No acute fracture noted on hip x-ray. Laboratory data was reviewed, white blood cell count 7.2, hemoglobin 12.5, platelet count 194. INR 3.8, blood gases were obtained on arrival here pH 7.3 pCO2 42 pO2 243, sodium 140, potassium 4.9, BUN on admission 40 with a creatinine of 1.5, 35 and 1.2 this morning, AST 85, ALT 132, alk phos 159, troponin 0.014, 0.012, BNP level 2020. On review of the patient's recent records, in August and September of this year he was noted to have abnormality in his liver enzymes as well as a BNP level in the range of 2000. 11/01/2019 Patient was seen and examined this morning, no significant bradycardia noted. Repeat echocardiogram with Doppler study revealed an ejection fraction of 45- 50%. Hemodynamically stable. Objective - Vital Signs Vital signs: Vital Signs Temp 98.3 F 11/01/19 08:00 Pulse 60 11/01/19 08:43 Resp 20 11/01/19 08:00 BP 111/65 11/01/19 08:00 Pulse Ox 97 11/01/19 08:00 Intake & Output 10/31/19 11/01/19 11/01/19 18:59 06:59 18:59 Intake Total 460 460 240 Output Total 1800 1900 Balance -1340 -1440 240 Weight 153.2 kg Intake: Intake, IV Titration 100 100 Amount Doxycycline 100 mg In 100 100 Sodium Chloride 0.9% 100 ml @ 100 mls/hr IVPB Q12HR [facility] Rx#:[id number] Oral 360 360 240 Output: Urine 1800 1900 Other: # Voids 1 # Bowel Movements 1 - Exam PHYSICAL EXAMINATION: GENERAL: 64-year-old gentleman in no acute distress at the time of my examination HEENT: Head is atraumatic, normocephalic. Pupils equal, round. Sclera anict suzan. Conjunctiva are clear. Mucous membranes of the mouth are moist. Neck is supple. There is no elevated jugular venous pressure.] bruit is heard. HEART EXAMINATION: Heart S1, S2 normal. No murmur or gallop heard. CHEST EXAMINATION: Lungs are clear to auscultation and precussion. No chest wall tenderness is noted on palpation or with deep breathing. ABDOMEN: Soft, nontender. Bowel sounds are heard. No organomegaly noted. EXTREMITIES: 2+ peripheral pulses with 1-2+ evidence of peripheral edema, chronic discoloration of the skin on the lower extremities, ulcerated area on the left foot. NEUROLOGIC patient is awake, alert and oriented X3. - Labs CBC & Chem 7: 11/01/19 06:36 11/01/19 06:36 Labs: Abnormal Lab Results - Last 24 Hours (Table) 10/31/19 10/31/19 10/31/19 Range/Units 11:52 16:42 20:29 RBC (4.30-5.90) m/uL Hgb (13.0-17.5) gm/dL MCV (80.0-100.0) fL Neutrophils # (1.3-7.7) k/uL Lymphocytes # (1.0-4.8) k/uL PT (9.0-12.0) sec INR (<1.2) BUN (9-20) mg/dL Glucose (74-99) mg/dL POC Glucose (mg/dL) 176 H 270 H 311 H (75-99) mg/dL ALT (4-49) U/L Alkaline Phosphatase (38-126) U/L 11/01/19 11/01/19 11/01/19 Range/Units 05:47 06:36 06:36 RBC 3.98 L (4.30-5.90) m/uL Hgb 12.8 L (13.0-17.5) gm/dL MCV 103.6 H (80.0-100.0) fL Neutrophils # 7.8 H (1.3-7.7) k/uL Lymphocytes # 0.7 L (1.0-4.8) k/uL PT (9.0-12.0) sec INR (<1.2) BUN 32 H (9-20) mg/dL Glucose 284 H (74-99) mg/dL POC Glucose (mg/dL) 297 H (75-99) mg/dL ALT 114 H (4-49) U/L Alkaline Phosphatase 162 H (38-126) U/L 11/01/19 Range/Units 06:36 RBC (4.30-5.90) m/uL Hgb (13.0-17.5) gm/dL MCV (80.0-100.0) fL Neutrophils # (1.3-7.7) k/uL Lymphocytes # (1.0-4.8) k/uL PT 26.7 H (9.0-12.0) sec INR 2.7 H (<1.2) BUN (9-20) mg/dL Glucose (74-99) mg/dL POC Glucose (mg/dL) (75-99) mg/dL ALT (4-49) U/L Alkaline Phosphatase (38-126) U/L Assessment and Plan Plan: Assessment and plan #1 fall, no evidence of syncope #2 hypertension #3 diabetes #4 hyperlipidemia #5 COPD #6 history of pulmonary embolism and DVT for which the patient had chronically b een on Coumadin #7 recent episode of atrial fibrillation, paroxysmal, remaining in normal sinus rhythm at this time #8 diabetic foot ulcer #9 history of a [place] filter #10 generalized anxiety disorder #11 PVD #12 cardiomyopathy with documented ejection fraction on his admission in August to 35%. Plan Repeat echocardiogram with Doppler study revealed an ejection fraction of 35- 50%. No evidence of significant bradycardia. TSH level was normal. From cardiology's perspective, patient may be able to be discharged home to follow-up in the office post discharge. On discharge, patient will need to rock picker a monitor at the office, and his stress test which was originally scheduled for today will be rescheduled. DNP note has been reviewed, I agree with a documented findings and plan of care. Patient was seen and examined.
--- NOTE | 2019-11-01 10:59 | P.PN ---
Subjective This is a pleasant 64 years old male with past medical history of asthma/COPD, CVA/TIA, diabetes mellitus, deep venous thrombosis, GERD, hyperlipidemia, hypertension, primary osteoarthritis, pulmonary embolism, migraine, pneumothorax. Patient states that he was moving his inflammatory yesterday when his hand slipped, he lost balance and fell on his right side, after that he has difficulty getting up and he has pain in his right hip area. Patient denies loss of consciousness or seizure-like activities. Patient has been complaining of from progressive dyspnea since August 2019, becoming more severe for him that he has difficulty only for 20 feet before he got gasping for air. He has with cough and phlegm with says is creamy, grayish and sometimes agreed He is a ex-smoker, he quit on August 2019, he denies alcohol or illicit drugs. On admission patient was slightly bradycardic with heart rate 51-55, patient saturation was 76% on 15 L and currently 93% on 6 L. Left showing unremarkable CBC, INR 3.8, pH 7.3, pCO2 42, pO2 243. Potassium 5.9, repeated 4.9, sodium 137, creatinine 1.5, baseline 0.9-1.3. Suture troponin are negative with 0.014 and less than 0.012. ProBNP is 2020, liver enzymes mildly elevated with AST 85 and ALT 132 (improved from last months ) but normal bilirubin of 0.9 EKG showing sinus bradycardia at 46 with QTC [address]-T changes. CT of the hip showing soft tissue density/mass 7.9 x 6.7 x 5.3 cm in the right gluteal musculature posterior right hip, intramuscular hematoma versus neoplasm, anasarca, right hip was arthritis. 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 Hip/pelvic x-ray: No fracture. Chest x- ray showing possible pulmonary vascular congestion mild patchy left basilar atelectasis versus infiltrate by radiologist On admission patient was sent to the #100 mL per hour and thermostatic controls supervisor has been consulted 11/01/2019 Patient is awake and alert, he states that his breathing difficulty is the same however he needs this oxygen requirement from 15, 8, 6 and currently he is on 4 L oxygen via nasal cannula. He saturating 96-97%. Her so Vitas looks stable and patient is afebrile. Creatinine is back to normal, Coumadin is therapeutic level 2.7, he will resume Coumadin today. Surgery team signed off the case for his right gluteal hematoma. We will resume his lisinopril, continue with pain management. Physical therapy recommended subacute rehab and social work was consulted, however patient denies and he wants to go home when his ready. Risks including but not limited to recurrent falls and bleeding, organ dysfunction and/or are explained to him and he verbalized understanding but he still does not want to go to rehab. Continue with insulin sliding scale, and will resume his metformin. Hold insulin NPH 70 units daily for now We will restart metformin and lisinopril as above. Continue with pain management. Patient also Lasix 40 mg twice a day, doxycycline and salmeterol 40 mg Review of systems CONSTITUTIONAL: No fever, no malaise, no fatigue. HEENT: No recent visual problems or hearing problems. Denied any sore throat. CARDIOVASCULAR: No orthopnea, PND, no palpitations, no syncope. GASTROINTESTINAL: No diarrhea, no nausea, no vomiting, no abdominal pain. Normoactive bowel sounds. NEUROLOGICAL: No headaches, no weakness, no numbness. HEMATOLOGICAL: Denies any bleeding or petechiae. GENITOURINARY: Denies any burning micturition, frequency, or urgency. MUSCULOSKELETAL/RHEUMATOLOGICAL: Denies any joint pain, swelling, or any muscle pain. ENDOCRINE: Denies any polyuria or polydipsia. Active Medications Generic Name Dose Route Start Last Admin Trade Name Freq PRN Reason Stop Dose Admin Acetaminophen 650 mg 10/31/19 00:11 Tylenol Tab PO Q6HR PRN Mild Pain or Fever > 100.5 Acetaminophen/Codeine Phosphate 1 each 10/31/19 00:11 11/01/19 08:46 Tylenol #3 PO 1 each Q4HR PRN Administration Moderate Pain Albuterol Sulfate 2.5 mg 10/31/19 00:43 Ventolin Nebulized INHALATION RT-DAILY PRN Shortness Of Breath Amiodarone HCl 200 mg 10/31/19 09:00 11/01/19 08:47 Cordarone PO 200 mg TID HELENE Administration Aspirin 81 mg 10/31/19 09:00 11/01/19 08:47 Aspirin PO 81 mg DAILY HELENE Administration Atorvastatin Calcium 80 mg 10/31/19 21:00 10/31/19 20:58 Lipitor PO 80 mg HS HELENE Administration Docusate Sodium 100 mg 10/31/19 00:43 Colace PO DAILY PRN Constipation Furosemide 40 mg 10/31/19 11:15 11/01/19 08:47 Lasix IV 40 mg Q12HR HELENE Administration Doxycycline Hyclate 100 mg/ 100 mls @ 100 mls/hr 10/31/19 12:00 10/31/19 21:17 Sodium Chloride IVPB 11/05/19 12:01 100 mls/hr Q12HR HELENE Administration Insulin Aspart 0 unit 10/31/19 17:30 11/01/19 06:33 Novolog SQ 12 unit ACHS HELENE Administration Protocol Ipratropium [employer] 0.5 mg 10/31/19 08:00 11/01/19 08:30 Atrovent Nebulized INHALATION 0.5 mg RT-QID HELENE Administration Lisinopril 20 mg 11/02/19 09:00 Zestril PO DAILY HELENE Loratadine 10 mg 10/31/19 09:00 11/01/19 08:47 Claritin PO 10 mg DAILY HELENE Administration Methylprednisolone Sodium Succinate 40 mg 10/31/19 11:30 11/01/19 08:47 Solu-Medrol IV 40 mg Q8HR [facility] Administration Metoprolol Tartrate 25 mg 10/31/19 21:00 11/01/19 08:47 Lopressor PO 25 mg BID HELENE Administration Miscellaneous Information 1 each 11/01/19 10:50 Coumadin Per Pharmacy MISCELLANE DIRECTED PRN Per Protocol Protocol Morphine Sulfate 2 mg 11/01/19 09:46 Morphine Sulfate (Inj) IVP Q6H PRN Pain/Discomfort Multivitamins 1 each 10/31/19 09:00 11/01/19 08:47 Theragran PO 1 each DAILY [facility] Administration Naloxone HCl 0.2 mg 10/31/19 00:11 Narcan IV Q2M PRN Opioid Reversal Nitroglycerin 0.4 mg 10/31/19 00:42 Nitrostat SUBLINGUAL Q5M PRN Chest Pain Nortriptyline HCl 50 mg 10/31/19 21:00 10/31/19 20:59 Pamelor PO 50 mg HS HELENE Administration Ondansetron HCl 4 mg 10/31/19 00:11 Zofran IVP Q8HR PRN Nausea And Vomiting Oxycodone/Acetaminophen 1 each 10/31/19 00:43 10/31/19 17:36 Percocet 10-325 PO 1 each Q8HR PRN Administration Breakthrough Pain Pantoprazole Sodium 40 mg 11/02/19 09:00 Protonix PO DAILY HELENE Pregabalin 300 mg 10/31/19 09:00 10/31/19 20:59 Lyrica PO 300 mg BID HELENE Administration Topiramate 25 mg 10/31/19 09:00 11/01/19 08:47 Topamax PO 25 mg BID HELENE Administration Objective - Vital Signs Vital signs: Vital Signs Temp 98.3 F 11/01/19 08:00 Pulse 60 11/01/19 08:43 Resp 20 11/01/19 08:00 BP 111/65 11/01/19 08:00 Pulse Ox 97 11/01/19 08:00 Intake & Output 10/31/19 11/01/19 11/01/19 18:59 06:59 18:59 Intake Total 460 460 240 Output Total 1800 1900 Balance -1340 -1440 240 Weight 153.2 kg Intake: Intake, IV Titration 100 100 Amount Doxycycline 100 mg In 100 100 Sodium Chloride 0.9% 100 ml @ 100 mls/hr IVPB Q12HR HELENE Rx#:[id number] Oral 360 360 240 Output: Urine 1800 1900 Other: # Voids 1 # Bowel Movements 1 - Exam GENERAL: The patient is alert and oriented x3, not in any acute distress. Well developed, well nourished. HEENT: Pupils are round and equally reacting to light. EOMI. No scleral icterus. No conjunctival pallor. Normocephalic, atraumatic. No pharyngeal erythema. No thyromegaly. CARDIOVASCULAR: S1 and S2 present. No murmurs, rubs, or gallops. PULMONARY: Chest is clear to auscultation, no wheezing or crackles. ABDOMEN: Soft, nontender, nondistended, normoactive bowel sounds. No palpable organomegaly. MUSCULOSKELETAL: No joint swelling or deformity. EXTREMITIES: No cyanosis, clubbing, or pedal edema. NEUROLOGICAL: Gross neurological examination did not reveal any focal deficits. SKIN: No rashes. No petechiae - Labs CBC & Chem 7: 11/01/19 06:36 11/01/19 06:36 Labs: Abnormal Lab Results - Last 24 Hours (Table) 10/31/19 10/31/19 10/31/19 Range/Units 11:52 16:42 20:29 RBC (4.30-5.90) m/uL Hgb (13.0-17.5) gm/dL MCV (80.0-100.0) fL Neutrophils # (1.3-7.7) k/uL Lymphocytes # (1.0-4.8) k/uL PT (9.0-12.0) sec INR (<1.2) BUN (9-20) mg/dL Glucose (74-99) mg/dL POC Glucose (mg/dL) 176 H 270 H 311 H (75-99) mg/dL ALT (4-49) U/L Alkaline Phosphatase (38-126) U/L 11/01/19 11/01/19 11/01/19 Range/Units 05:47 06:36 06:36 RBC 3.98 L (4.30-5.90) m/uL Hgb 12.8 L (13.0-17.5) gm/dL MCV 103.6 H (80.0-100.0) fL Neutrophils # 7.8 H (1.3-7.7) k/uL Lymphocytes # 0.7 L (1.0-4.8) k/uL PT (9.0-12.0) sec INR (<1.2) BUN 32 H (9-20) mg/dL Glucose 284 H (74-99) mg/dL POC Glucose (mg/dL) 297 H (75-99) mg/dL ALT 114 H (4-49) U/L Alkaline Phosphatase 162 H (38-126) U/L 11/01/19 Range/Units 06:36 RBC (4.30-5.90) m/uL Hgb (13.0-17.5) gm/dL MCV (80.0-100.0) fL Neutrophils # (1.3-7.7) k/uL Lymphocytes # (1.0-4.8) k/uL PT 26.7 H (9.0-12.0) sec INR 2.7 H (<1.2) BUN (9-20) mg/dL Glucose (74-99) mg/dL POC Glucose (mg/dL) (75-99) mg/dL ALT (4-49) U/L Alkaline Phosphatase (38-126) U/L Assessment and Plan Assessment: -Anasarca, with pulmonary vascular congestion suspicious for heart failure, on the top of mild kidney injury -Acute on chronic systolic heart failure, with ejection fraction 30-35% -Acute COPD exacerbation -Acute hypoxic respiratory failure, secondary to above -Difficulty walking with a fall, CT of the hip showing soft tissue density/mass 7.9 x 6.7 x 5.3 cm in the right gluteal musculature posterior right hip, intramuscular hematoma versus neoplasm -Mild acute kidney injury with hyperkalemia, mostly cardiorenal syndrome -Paroxysmal atrial fibrillation -Right hip osteoarthritis -Elevated liver enzymes, improving gradually -Recent history of left foot diabetic ulcer status post debridement on 08/2019 -Hypertension -Diabetes mellitus -Hyperlipidemia -History of DVT/PE on Coumadin -History of CVA/TIA -Primary osteoarthritis -Migraine -History of pneumothorax Plan: This is a pleasant 64 years old male who presents with fall, right hip hematoma/neoplasm, anasarca possible CHF. Discontinue IV fluids Cardiology consult already called. Continue with Lasix. Surgical consult for right gluteal hematoma and check an ultrasound . Hold Coumadin and follow up INR. Continue with insulin but hold metformin and continue with insulin sliding scale. Pain management. Keep monitoring oxygen saturation Labs and medication were reviewed.. Continue same treatment. Continue with symptomatic treatment. Resume home medication. Monitor lytes and vitals. DVT and GI prophylaxis. Further recommendations of the clinical course of the patient DVT prophylaxis: On Coumadin GI Prophylaxis: Ppi PT/OT: Pending Prognosis is guarded
[2019-11-01 11:40] LABS: Glucose,Whole Blood 336 mg/dL (75-99)
[2019-11-01] MEDS: oxyCODONE-APAP 10-325MG 1 EACH TAB PO PRN ×2 (12:57→20:08)
[2019-11-01] MEDS: PREGABALIN 100 MG CAP PO SCH ×2 (12:57→20:01)
[2019-11-01 16:13] LABS: Hemoglobin A1C 9.5 % (4.0-6.0)
[2019-11-01 16:57] LABS: Glucose,Whole Blood 269 mg/dL (75-99)
[2019-11-01] MEDS: metFORMIN 500 MG TAB PO SCH (17:24)
[2019-11-01] MEDS ORDERED: WARFARIN 3 MG TAB PO ONE (18:00)
[2019-11-01] MEDS: NORTRIPTYLINE 25 MG CAP PO SCH (20:01)
[2019-11-01] MEDS: ATORVASTATIN 80 MG TAB PO SCH (20:01)
[2019-11-01 20:43] LABS: Glucose,Whole Blood 271 mg/dL (75-99)
[2019-11-02 06:15] LABS: Glucose,Whole Blood 230 mg/dL (75-99)
[2019-11-02] MEDS: oxyCODONE-APAP 10-325MG 1 EACH TAB PO PRN ×2 (06:26→23:23)
[2019-11-02] MEDS: metFORMIN 500 MG TAB PO SCH ×2 (06:26→17:01)
[2019-11-02] MEDS: INSULIN ASPART (NovoLOG) 100 UNIT/ML VIAL SQ SCH ×4 (06:27→21:23)
[2019-11-02 07:06] LABS: Basophils % (A) 0 %; Eosinophils % (A) 0 %; HCT 40.6 % (39.0-53.0); HGB 12.6 gm/dL (13.0-17.5); Hypochromasia Moderate; Lymphocytes % (A) 7 %; MCH 31.3 pg (25.0-35.0); MCHC 30.9 g/dL (31.0-37.0); MCV 101.2 fL (80.0-100.0); Macrocytosis Slight; Mean Platelet Volume 9.1; Monocytes # (A) 0.6 k/uL (0-1.0); Monocytes % (A) 5 %; Neutrophils # (A) 11.9 k/uL (1.3-7.7); Neutrophils % (A) 87 %; Platelet Count 201 k/uL (150-450); RBC 4.01 m/uL (4.30-5.90); RDW 15.5 % (11.5-15.5); WBC 13.6 k/uL (3.8-10.6)
[2019-11-02 07:14] LABS: Albumin 3.6 g/dL (3.5-5.0); Calcium 8.6 mg/dL (8.4-10.2); INR 2.4 (<1.2); Magnesium 1.9 mg/dL (1.6-2.3); Potassium 4.3 mmol/L (3.5-5.1); Prothrombin Time 22.9 sec (9.0-12.0); Total Protein 6.9 g/dL (6.3-8.2)
[2019-11-02] MEDS: IPRATROPIUM 0.5 MG/2.5 ML NEBU INHALATION SCH ×4 (07:43→19:25)
[2019-11-02] MEDS ORDERED: methylPREDNISolone SOD SUCCI 40 MG/ML 1 ML VIAL IV SCH (09:00)
[2019-11-02] MEDS: AMIODARONE 200 MG TAB PO SCH ×3 (09:17→21:22)
[2019-11-02] MEDS: ASPIRIN 81 MG PO SCH (09:17)
[2019-11-02] MEDS: DOXYCYCLINE 100 MG in SODIUM CHLORIDE 0.9% 100 ML IVPB SCH ×2 (09:17→21:27)
[2019-11-02] MEDS: LORATADINE 10 MG TAB PO SCH (09:17)
[2019-11-02] MEDS: LISINOPRIL 20 MG TAB PO SCH (09:17)
[2019-11-02] MEDS: Acetaminophen-Codeine 300-30mg TAB PO PRN ×3 (09:18→20:06)
[2019-11-02] MEDS: MULTIVITAMINS, THERA 1 EACH TAB PO SCH (09:18)
[2019-11-02] MEDS: TOPIRAMATE 25 MG TAB PO SCH ×2 (09:18→21:24)
[2019-11-02] MEDS: PREGABALIN 100 MG CAP PO SCH ×2 (09:18→21:22)
[2019-11-02] MEDS: PANTOPRAZOLE 40 MG TABLET PO SCH (09:18)
[2019-11-02] MEDS: METOPROLOL TARTRATE 25 MG TAB PO SCH ×2 (09:18→21:23)
[2019-11-02] MEDS: FUROSEMIDE 10 MG/ML 4 ML VIAL IV SCH (09:19)
[2019-11-02 10:02] VITALS: BMI 40.5
[2019-11-02 11:54] LABS: Glucose,Whole Blood 269 mg/dL (75-99)
--- NOTE | 2019-11-02 12:35 | P.PN ---
Subjective This is a pleasant 64 years old male with past medical history of asthma/COPD, CVA/TIA, diabetes mellitus, deep venous thrombosis, GERD, hyperlipidemia, hypertension, primary osteoarthritis, pulmonary embolism, migraine, pneumothorax. Patient states that he was moving his inflammatory yesterday when his hand slipped, he lost balance and fell on his right side, after that he has difficulty getting up and he has pain in his right hip area. Patient denies loss of consciousness or seizure-like activities. Patient has been complaining of from progressive dyspnea since August 2019, becoming more severe for him that he has difficulty only for 20 feet before he got gasping for air. He has with cough and phlegm with says is creamy, grayish and sometimes agreed He is a ex-smoker, he quit on August 2019, he denies alcohol or illicit drugs. On admission patient was slightly bradycardic with heart rate 51-55, patient saturation was 76% on 15 L and currently 93% on 6 L. Left showing unremarkable CBC, INR 3.8, pH 7.3, pCO2 42, pO2 243. Potassium 5.9, repeated 4.9, sodium 137, creatinine 1.5, baseline 0.9-1.3. Suture troponin are negative with 0.014 and less than 0.012. ProBNP is 2020, liver enzymes mildly elevated with AST 85 and ALT 132 (improved from last months ) but normal bilirubin of 0.9 EKG showing sinus bradycardia at 46 with QTC [address]-T changes. CT of the hip showing soft tissue density/mass 7.9 x 6.7 x 5.3 cm in the right gluteal musculature posterior right hip, intramuscular hematoma versus neoplasm, anasarca, right hip was arthritis. 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 Hip/pelvic x-ray: No fracture. Chest x- ray showing possible pulmonary vascular congestion mild patchy left basilar atelectasis versus infiltrate by radiologist On admission patient was sent to the #100 mL per hour and senior database engineer has been consulted 11/01/2019 Patient is awake and alert, he states that his breathing difficulty is the same however he needs this oxygen requirement from 15, 8, 6 and currently he is on 4 L oxygen via nasal cannula. He saturating 96-97%. Her so Vitas looks stable and patient is afebrile. Creatinine is back to normal, Coumadin is therapeutic level 2.7, he will resume Coumadin today. Surgery team signed off the case for his right gluteal hematoma. We will resume his lisinopril, continue with pain management. Physical therapy recommended subacute rehab and social work was consulted, however patient denies and he wants to go home when his ready. Risks including but not limited to recurrent falls and bleeding, organ dysfunction and/or are explained to him and he verbalized understanding but he still does not want to go to rehab. Continue with insulin sliding scale, and will resume his metformin. Hold insulin NPH 70 units daily for now We will restart metformin and lisinopril as above. Continue with pain management. Patient also Lasix 40 mg twice a day, doxycycline and salmeterol 40 mg 11/02/2019 Patient is improving gradually, sitting in chair with no much pain in his right leg site where he had the hematoma. His dyspnea is improving however he still short of breath especially at exertion and today he was asking me if he can be discharged on oxygen when he goes home, I explained to the patient we will evaluated home oxygen upon discharge. No other new complaints. Vital stable. He saturating 97% on 2 L he has mild leukocytosis 2 days of 13.6 K but he is on steroids. His INR is 2.4 today and he got 6 mg of Coumadin last night. INR slightly elevated at 1.26. His weight is dropped from 153-154.5 down to 147.2 today. We will lower his Lasix to 20 mg tonight. He will keep monitoring his INR and breathing with oxygen Review of systems CONSTITUTIONAL: No fever, no malaise, no fatigue. HEENT: No recent visual problems or hearing problems. Denied any sore throat. CARDIOVASCULAR: No orthopnea, PND, no palpitations, no syncope. GASTROINTESTINAL: No diarrhea, no nausea, no vomiting, no abdominal pain. Normoactive bowel sounds. NEUROLOGICAL: No headaches, no weakness, no numbness. HEMATOLOGICAL: Denies any bleeding or petechiae. GENITOURINARY: Denies any burning micturition, frequency, or urgency. MUSCULOSKELETAL/RHEUMATOLOGICAL: Denies any joint pain, swelling, or any muscle pain. ENDOCRINE: Denies any polyuria or polydipsia. Active Medications Generic Name Dose Route Start Last Admin Trade Name Caleb PRN Reason Stop Dose Admin Acetaminophen 650 mg 10/31/19 00:11 Tylenol Tab PO Q6HR PRN Mild Pain or Fever > 100.5 Acetaminophen/Codeine Phosphate 1 each 10/31/19 00:11 11/02/19 09:18 Tylenol #3 PO 1 each Q4HR PRN Administration Moderate Pain Albuterol Sulfate 2.5 mg 10/31/19 00:43 Ventolin Nebulized INHALATION RT-DAILY PRN Shortness Of Breath Amiodarone HCl 200 mg 10/31/19 09:00 11/02/19 09:17 Cordarone PO 200 mg TID HELENE Administration Aspirin 81 mg 10/31/19 09:00 11/02/19 09:17 Aspirin PO 81 mg DAILY HELENE Administration Atorvastatin Calcium 80 mg 10/31/19 21:00 11/01/19 20:01 Lipitor PO 80 mg HS [facility] Administration Docusate Sodium 100 mg 10/31/19 00:43 Colace PO DAILY PRN Constipation Furosemide 40 mg 10/31/19 11:15 11/02/19 09:19 Lasix IV 40 mg Q12HR HELENE Administration Doxycycline Hyclate 100 mg/ 100 mls @ 100 mls/hr 10/31/19 12:00 11/02/19 09:17 Sodium Chloride IVPB 11/05/19 12:01 100 mls/hr Q12HR HELENE Administration Insulin Aspart 0 unit 10/31/19 17:30 11/02/19 06:27 Novolog SQ 7 unit ACHS [facility] Administration Protocol Ipratropium [place] 0.5 mg 10/31/19 08:00 11/02/19 11:28 Atrovent Nebulized INHALATION 0.5 mg RT-QID HELENE Administration Lisinopril 20 mg 11/02/19 09:00 11/02/19 09:17 Zestril PO 20 mg DAILY HELENE Administration Loratadine 10 mg 10/31/19 09:00 11/02/19 09:17 Claritin PO 10 mg DAILY HELENE Administration Metformin HCl 500 mg 11/01/19 17:30 11/02/19 06:26 Glucophage PO 500 mg BID-W/MEALS HELENE Administration Methylprednisolone Sodium Succinate 20 mg 11/02/19 09:00 11/02/19 09:23 Solu-Medrol IV 20 mg Q12HR HELENE Administration Metoprolol Tartrate 25 mg 10/31/19 21:00 11/02/19 09:18 Lopressor PO 25 mg BID HELENE Administration Miscellaneous Information 1 each 11/01/19 10:50 Coumadin Per Pharmacy MISCELLANE DIRECTED PRN Per Protocol Protocol Morphine Sulfate 2 mg 11/01/19 09:46 11/01/19 17:32 Morphine Sulfate (Inj) IVP 2 mg Q6H PRN Administration Pain/Discomfort Multivitamins 1 each 10/31/19 09:00 11/02/19 09:18 Theragran PO 1 each DAILY HELENE Administration Naloxone HCl 0.2 mg 10/31/19 00:11 Narcan IV Q2M PRN Opioid Reversal Nitroglycerin 0.4 mg 10/31/19 00:42 Nitrostat SUBLINGUAL Q5M PRN Chest Pain Nortriptyline HCl 50 mg 10/31/19 21:00 11/01/19 20:01 Pamelor PO 50 mg HS HELENE Administration Ondansetron HCl 4 mg 10/31/19 00:11 Zofran IVP Q8HR PRN Nausea And Vomiting Oxycodone/Acetaminophen 1 each 10/31/19 00:43 11/02/19 06:26 Percocet 10-325 PO 1 each Q8HR PRN Administration Breakthrough Pain Pantoprazole Sodium 40 mg 11/02/19 09:00 11/02/19 09:18 Protonix PO 40 mg DAILY HELENE Administration Pregabalin 300 mg 10/31/19 09:00 11/02/19 09:18 Lyrica PO 300 mg BID HELENE Administration Topiramate 25 mg 10/31/19 09:00 11/02/19 09:18 Topamax PO 25 mg BID HELENE Administration Warfarin Sodium 6 mg 11/02/19 18:00 Coumadin PO 11/02/19 18:01 ONCE ONE Objective - Vital Signs Vital signs: Vital Signs Temp 98.2 F 11/02/19 03:05 Pulse 58 L 11/02/19 11:38 Resp 60 H 11/02/19 07:55 BP 111/63 11/02/19 03:05 Pulse Ox 97 11/02/19 03:05 Intake & Output 11/01/19 11/02/19 11/02/19 18:59 06:59 18:59 Intake Total 720 240 Output Total 1900 1000 900 Balance -1180 -1000 -660 Weight 147.2 kg 147.2 kg Intake: Oral 720 240 Output: Urine 1900 1000 900 Other: Voiding Method Toilet # Voids 2 2 0 # Bowel Movements 0 - Exam GENERAL: The patient is alert and oriented x3, not in any acute distress. Well developed, well nourished. HEENT: Pupils are round and equally reacting to light. EOMI. No scleral icterus. No conjunctival pallor. Normocephalic, atraumatic. No pharyngeal erythema. No thyromegaly. CARDIOVASCULAR: S1 and S2 present. No murmurs, rubs, or gallops. PULMONARY: Chest is clear to auscultation, no wheezing or crackles. ABDOMEN: Soft, nontender, nondistended, normoactive bowel sounds. No palpable organomegaly. MUSCULOSKELETAL: No joint swelling or deformity. EXTREMITIES: No cyanosis, clubbing, or pedal edema. NEUROLOGICAL: Gross neurological examination did not reveal any focal deficits. SKIN: No rashes. No petechiae - Labs CBC & Chem 7: 11/02/19 06:41 11/02/19 06:41 Labs: Abnormal Lab Results - Last 24 Hours (Table) 11/01/19 11/01/19 11/01/19 Range/Units 06:36 16:55 20:32 WBC (3.8-10.6) k/uL RBC (4.30-5.90) m/uL Hgb (13.0-17.5) gm/dL MCV (80.0-100.0) fL MCHC (31.0-37.0) g/dL Neutrophils # (1.3-7.7) k/uL PT (9.0-12.0) sec INR (<1.2) BUN (9-20) mg/dL Creatinine (0.66-1.25) mg/dL Glucose (74-99) mg/dL POC Glucose (mg/dL) 269 H 271 H (75-99) mg/dL Hemoglobin A1c 9.5 H (4.0-6.0) % ALT (4-49) U/L Alkaline Phosphatase (38-126) U/L 11/02/19 11/02/19 11/02/19 Range/Units 06:13 06:41 06:41 WBC 13.6 H (3.8-10.6) k/uL RBC 4.01 L (4.30-5.90) m/uL Hgb 12.6 L (13.0-17.5) gm/dL MCV 101.2 H (80.0-100.0) fL MCHC 30.9 L (31.0-37.0) g/dL Neutrophils # 11.9 H (1.3-7.7) k/uL PT 22.9 H (9.0-12.0) sec INR 2.4 H (<1.2) BUN (9-20) mg/dL Creatinine (0.66-1.25) mg/dL Glucose (74-99) mg/dL POC Glucose (mg/dL) 230 H (75-99) mg/dL Hemoglobin A1c (4.0-6.0) % ALT (4-49) U/L Alkaline Phosphatase (38-126) U/L 11/02/19 11/02/19 Range/Units 06:41 11:51 WBC (3.8-10.6) k/uL RBC (4.30-5.90) m/uL Hgb (13.0-17.5) gm/dL MCV (80.0-100.0) fL MCHC (31.0-37.0) g/dL Neutrophils # (1.3-7.7) k/uL PT (9.0-12.0) sec INR (<1.2) BUN 35 H (9-20) mg/dL Creatinine 1.26 H (0.66-1.25) mg/dL Glucose 202 H (74-99) mg/dL POC Glucose (mg/dL) 269 H (75-99) mg/dL Hemoglobin A1c (4.0-6.0) % ALT 91 H (4-49) U/L Alkaline Phosphatase 148 H (38-126) U/L Assessment and Plan Assessment: -Anasarca, with pulmonary vascular congestion suspicious for heart failure, on the top of mild kidney injury -Acute on chronic systolic heart failure, with ejection fraction 30-35% -Acute COPD exacerbation -Acute hypoxic respiratory failure, secondary to above -Difficulty walking with a fall, CT of the hip showing soft tissue density/mass 7.9 x 6.7 x 5.3 cm in the right gluteal musculature posterior right hip, intramuscular hematoma versus neoplasm -Mild acute kidney injury with hyperkalemia, mostly cardiorenal syndrome -Paroxysmal atrial fibrillation -Right hip osteoarthritis -Elevated liver enzymes, improving gradually -Recent history of left foot diabetic ulcer status post debridement on 08/2019 -Hypertension -Diabetes mellitus -Hyperlipidemia -History of DVT/PE on Coumadin -History of CVA/TIA -Primary osteoarthritis -Migraine -History of pneumothorax Plan: This is a pleasant 64 years old male who presents with fall, right hip hematoma/neoplasm, anasarca possible CHF. Discontinue IV fluids Cardiology consult already called. Continue with Lasix. Surgical consult for right gluteal hematoma and check an ultrasound . Hold Coumadin and follow up INR. Continue with insulin but hold metformin and continue with insulin sliding scale. Pain management. Keep monitoring oxygen saturation Labs and medication were reviewed.. Continue same treatment. Continue with symptomatic treatment. Resume home medication. Monitor lytes and vitals. DVT and GI prophylaxis. Further recommendations of the clinical course of the patient DVT prophylaxis: On Coumadin GI Prophylaxis: Ppi PT/OT: Pending Prognosis is guarded
[2019-11-02 16:44] LABS: Glucose,Whole Blood 314 mg/dL (75-99)
[2019-11-02] MEDS: methylPREDNISolone SOD SUCCI 40 MG/ML 1 ML VIAL IV SCH ×2 (17:01→23:21)
[2019-11-02] MEDS ORDERED: WARFARIN 3 MG TAB PO ONE (18:00)
[2019-11-02 20:13] LABS: Glucose,Whole Blood 284 mg/dL (75-99)
[2019-11-02] MEDS: FUROSEMIDE 10 MG/ML 2 ML VIAL IV SCH (21:22)
[2019-11-02] MEDS: ATORVASTATIN 80 MG TAB PO SCH (21:24)
[2019-11-02] MEDS: NORTRIPTYLINE 25 MG CAP PO SCH (21:24)
[2019-11-03 06:21] LABS: Glucose,Whole Blood 230 mg/dL (75-99)
[2019-11-03] MEDS: metFORMIN 500 MG TAB PO SCH ×2 (06:40→17:45)
[2019-11-03] MEDS: INSULIN ASPART (NovoLOG) 100 UNIT/ML VIAL SQ SCH ×4 (06:40→21:44)
[2019-11-03] MEDS: oxyCODONE-APAP 10-325MG 1 EACH TAB PO PRN ×3 (06:40→23:27)
[2019-11-03 06:59] LABS: Basophils % (A) 0 %; Eosinophils % (A) 0 %; HCT 37.1 % (39.0-53.0); HGB 12.2 gm/dL (13.0-17.5); Hypochromasia Slight; Lymphocytes # (A) 0.8 k/uL (1.0-4.8); Lymphocytes % (A) 8 %; MCH 31.8 pg (25.0-35.0); MCV 96.5 fL (80.0-100.0); Mean Platelet Volume 8.9; Monocytes # (A) 0.3 k/uL (0-1.0); Monocytes % (A) 2 %; Neutrophils # (A) 9.6 k/uL (1.3-7.7); Neutrophils % (A) 89 %; Platelet Count 176 k/uL (150-450); RBC 3.84 m/uL (4.30-5.90); RDW 15.9 % (11.5-15.5); WBC 10.8 k/uL (3.8-10.6)
[2019-11-03 07:06] LABS: Albumin 3.1 g/dL (3.5-5.0); Calcium 8.3 mg/dL (8.4-10.2); Magnesium 1.9 mg/dL (1.6-2.3); Potassium 4.7 mmol/L (3.5-5.1); Total Bilirubin 0.9 mg/dL (0.2-1.3); Total Protein 6.1 g/dL (6.3-8.2)
[2019-11-03 07:09] LABS: INR 2.1 (<1.2); Prothrombin Time 20.7 sec (9.0-12.0)
[2019-11-03] MEDS: IPRATROPIUM 0.5 MG/2.5 ML NEBU INHALATION SCH ×4 (08:21→19:33)
[2019-11-03] MEDS: FUROSEMIDE 10 MG/ML 2 ML VIAL IV SCH (08:46)
[2019-11-03] MEDS: methylPREDNISolone SOD SUCCI 40 MG/ML 1 ML VIAL IV SCH ×3 (08:46→23:27)
[2019-11-03] MEDS: AMIODARONE 200 MG TAB PO SCH ×3 (08:47→21:45)
[2019-11-03] MEDS: LISINOPRIL 20 MG TAB PO SCH (08:47)
[2019-11-03] MEDS: ASPIRIN 81 MG PO SCH (08:47)
[2019-11-03] MEDS: DOXYCYCLINE 100 MG in SODIUM CHLORIDE 0.9% 100 ML IVPB SCH ×2 (08:47→21:44)
[2019-11-03] MEDS: PREGABALIN 100 MG CAP PO SCH ×2 (08:48→21:45)
[2019-11-03] MEDS: LORATADINE 10 MG TAB PO SCH (08:48)
[2019-11-03] MEDS: TOPIRAMATE 25 MG TAB PO SCH ×2 (08:48→21:58)
[2019-11-03] MEDS: PANTOPRAZOLE 40 MG TABLET PO SCH (08:48)
[2019-11-03] MEDS: METOPROLOL TARTRATE 25 MG TAB PO SCH ×2 (08:48→21:42)
[2019-11-03] MEDS: MULTIVITAMINS, THERA 1 EACH TAB PO SCH (08:48)
[2019-11-03] MEDS: Acetaminophen-Codeine 300-30mg TAB PO PRN ×2 (08:49→17:52)
[2019-11-03 11:40] LABS: Glucose,Whole Blood 216 mg/dL (75-99)
[2019-11-03] MEDS ORDERED: INSULIN NPH 300 UNIT/3 ML VIAL SQ SCH (11:45)
--- NOTE | 2019-11-03 11:45 | P.PN ---
Subjective This is a pleasant 64 years old male with past medical history of asthma/COPD, CVA/TIA, diabetes mellitus, deep venous thrombosis, GERD, hyperlipidemia, hypertension, primary osteoarthritis, pulmonary embolism, migraine, pneumothorax. Patient states that he was moving his inflammatory yesterday when his hand slipped, he lost balance and fell on his right side, after that he has difficulty getting up and he has pain in his right hip area. Patient denies loss of consciousness or seizure-like activities. Patient has been complaining of from progressive dyspnea since August 2019, becoming more severe for him that he has difficulty only for 20 feet before he got gasping for air. He has with cough and phlegm with says is creamy, grayish and sometimes agreed He is a ex-smoker, he quit on August 2019, he denies alcohol or illicit drugs. On admission patient was slightly bradycardic with heart rate 51-55, patient saturation was 76% on 15 L and currently 93% on 6 L. Left showing unremarkable CBC, INR 3.8, pH 7.3, pCO2 42, pO2 243. Potassium 5.9, repeated 4.9, sodium 137, creatinine 1.5, baseline 0.9-1.3. Suture troponin are negative with 0.014 and less than 0.012. ProBNP is 2020, liver enzymes mildly elevated with AST 85 and ALT 132 (improved from last months ) but normal bilirubin of 0.9 EKG showing sinus bradycardia at 46 with QTC [address]-T changes. CT of the hip showing soft tissue density/mass 7.9 x 6.7 x 5.3 cm in the right gluteal musculature posterior right hip, intramuscular hematoma versus neoplasm, anasarca, right hip was arthritis. CT of the brain showed no acute intracranial abnormality associate trainer. Hip/pelvic x-ray: No fracture. Chest x- ray showing possible pulmonary vascular congestion mild patchy left basilar atelectasis versus infiltrate by radiologist On admission patient was sent to the #100 mL per hour and associate trainer has been consulted 11/01/2019 Patient is awake and alert, he states that his breathing difficulty is the same however he needs this oxygen requirement from 15, 8, 6 and currently he is on 4 L oxygen via nasal cannula. He saturating 96-97%. Her so Vitas looks stable and patient is afebrile. Creatinine is back to normal, Coumadin is therapeutic level 2.7, he will resume Coumadin today. Surgery team signed off the case for his right gluteal hematoma. We will resume his lisinopril, continue with pain management. Physical therapy recommended subacute rehab and social work was consulted, however patient denies and he wants to go home when his ready. Risks including but not limited to recurrent falls and bleeding, organ dysfunction and/or are explained to him and he verbalized understanding but he still does not want to go to rehab. Continue with insulin sliding scale, and will resume his metformin. Hold insulin NPH 70 units daily for now We will restart metformin and lisinopril as above. Continue with pain management. Patient also Lasix 40 mg twice a day, doxycycline and salmeterol 40 mg 11/02/2019 Patient is improving gradually, sitting in chair with no much pain in his right leg site where he had the hematoma. His dyspnea is improving however he still short of breath especially at exertion and today he was asking me if he can be discharged on oxygen when he goes home, I explained to the patient we will evaluated home oxygen upon discharge. No other new complaints. Vital stable. He saturating 97% on 2 L he has mild leukocytosis 2 days of 13.6 K but he is on steroids. His INR is 2.4 today and he got 6 mg of Coumadin last night. INR slightly elevated at 1.26. His weight is dropped from 153-154.5 down to 147.2 today. We will lower his Lasix to 20 mg tonight. He will keep monitoring his INR and breathing with oxygen 11/03/2019 Patient states that he still dyspneic the same. His pain and right leg some improvement with minimal or no pain. Patient states he can go home soon. He still on steroids and saturating 94% on 2 L Vitals stable. We will proceed trending down to 10.8 K. Creatinine is stable at 1 point tonight. Sugar is on the high side more than 200 but he's on steroids. Restart his NPH insulin, intermediate acting once daily and keep monitoring his sugar His INR today is 2.1, he received 6 mg of warfarin last night. TSH is normal. His hemoglobin A1c is elevated at 9.5%, so we change his insulin NPH which is intermediate acting to Levemir which his lung acting starting with 50 units at night We got repeat ultrasound to make sure there is no progression of his hematoma in his right leg hemoglobin Patient was instructed with the associate trainer recommendation for Holter monitor and outpatient stress test and follow-up with his associate trainer Dr. Heaton upon discharge in 1-2 weeks and he verbalized understanding and acceptance We going to repeat ultrasound of the right gluteal region versus hematoma since he continues to be on Coumadin. Repeat chest x-ray. Patient refused recommended rehab for him and he wants to go home upon discharge. Also patient will need to assess for home oxygen upon discharge Objective - Vital Signs Vital signs: Vital Signs Temp 98.7 F 11/03/19 03:10 Pulse 56 L 11/03/19 08:37 Resp 18 11/03/19 03:10 BP 112/61 11/03/19 03:10 Pulse Ox 94 L 11/03/19 03:10 Intake & Output 11/02/19 11/03/19 11/03/19 18:59 06:59 18:59 Intake Total 720 30 240 Output Total 900 1500 200 Balance -180 -1470 40 Weight 147.2 kg 147.4 kg Intake: IV 30 Invasive Line 1 30 Oral 720 240 Output: Urine 900 1500 200 Other: Voiding Method Toilet Toilet # Voids 0 1 # Bowel Movements 0 - Exam GENERAL: The patient is alert and oriented x3, not in any acute distress. Well developed, well nourished. HEENT: Pupils are round and equally reacting to light. EOMI. No scleral icterus. No conjunctival pallor. Normocephalic, atraumatic. No pharyngeal erythema. No thyromegaly. CARDIOVASCULAR: S1 and S2 present. No murmurs, rubs, or gallops. PULMONARY: Chest is clear to auscultation, no wheezing or crackles. ABDOMEN: Soft, nontender, nondistended, normoactive bowel sounds. No palpable organomegaly. MUSCULOSKELETAL: No joint swelling or deformity. EXTREMITIES: No cyanosis, clubbing, or pedal edema. NEUROLOGICAL: Gross neurological examination did not reveal any focal deficits. SKIN: No rashes. No petechiae - Labs CBC & Chem 7: 11/03/19 05:57 11/03/19 05:57 Labs: Abnormal Lab Results - Last 24 Hours (Table) 11/02/19 11/02/19 11/02/19 Range/Units 11:51 16:32 20:11 WBC (3.8-10.6) k/uL RBC (4.30-5.90) m/uL Hgb (13.0-17.5) gm/dL Hct (39.0-53.0) % RDW (11.5-15.5) % Neutrophils # (1.3-7.7) k/uL Lymphocytes # (1.0-4.8) k/uL PT (9.0-12.0) sec INR (<1.2) BUN (9-20) mg/dL Creatinine (0.66-1.25) mg/dL Glucose (74-99) mg/dL POC Glucose (mg/dL) 269 H 314 H 284 H (75-99) mg/dL Calcium (8.4-10.2) mg/dL ALT (4-49) U/L Total Protein (6.3-8.2) g/dL Albumin (3.5-5.0) g/dL 11/03/19 11/03/19 11/03/19 Range/Units 05:57 05:57 05:57 WBC 10.8 H (3.8-10.6) k/uL RBC 3.84 L (4.30-5.90) m/uL Hgb 12.2 L (13.0-17.5) gm/dL Hct 37.1 L (39.0-53.0) % RDW 15.9 H (11.5-15.5) % Neutrophils # 9.6 H (1.3-7.7) k/uL Lymphocytes # 0.8 L (1.0-4.8) k/uL PT 20.7 H (9.0-12.0) sec INR 2.1 H (<1.2) BUN 39 H (9-20) mg/dL Creatinine 1.29 H (0.66-1.25) mg/dL Glucose 208 H (74-99) mg/dL POC Glucose (mg/dL) (75-99) mg/dL Calcium 8.3 L (8.4-10.2) mg/dL ALT 74 H (4-49) U/L Total Protein 6.1 L (6.3-8.2) g/dL Albumin 3.1 L (3.5-5.0) g/dL 11/03/19 Range/Units 06:19 WBC (3.8-10.6) k/uL RBC (4.30-5.90) m/uL Hgb (13.0-17.5) gm/dL Hct (39.0-53.0) % RDW (11.5-15.5) % Neutrophils # (1.3-7.7) k/uL Lymphocytes # (1.0-4.8) k/uL PT (9.0-12.0) sec INR (<1.2) BUN (9-20) mg/dL Creatinine (0.66-1.25) mg/dL Glucose (74-99) mg/dL POC Glucose (mg/dL) 230 H (75-99) mg/dL Calcium (8.4-10.2) mg/dL ALT (4-49) U/L Total Protein (6.3-8.2) g/dL Albumin (3.5-5.0) g/dL Assessment and Plan Assessment: -Anasarca, with pulmonary vascular congestion suspicious for heart failure, on the top of mild kidney injury -Acute on chronic systolic heart failure, with ejection fraction 30-35% -Acute COPD exacerbation -Acute hypoxic respiratory failure, secondary to above -Difficulty walking with a fall, CT of the hip showing soft tissue density/mass 7.9 x 6.7 x 5.3 cm in the right gluteal musculature posterior right hip, intramuscular hematoma versus neoplasm -Mild acute kidney injury with hyperkalemia, mostly cardiorenal syndrome -Paroxysmal atrial fibrillation -Right hip osteoarthritis -Elevated liver enzymes, improving gradually -Recent history of left foot diabetic ulcer status post debridement on 08/2019 -Hypertension -Diabetes mellitus -Hyperlipidemia -History of DVT/PE on Coumadin -History of CVA/TIA -Primary osteoarthritis -Migraine -History of pneumothorax Plan: This is a pleasant 64 years old male who presents with fall, right hip hematoma/neoplasm, anasarca possible CHF. Discontinue IV fluids Cardiology consult. Continue with Lasix. Surgical consult for right gluteal hematoma and check repeat ultrasound . Continue with Coumadin and follow up INR. Continue with insulin but change to Levemir and continue with metformin and continue with insulin sliding scale. Pain management. Keep monitoring oxygen saturation. Repeat chest x-ray Patient was instructed to follow up with his associate trainer Dr. Heaton in 1-2 weeks for outpatient stress test and Holter monitor, he agrees Labs and medication were reviewed.. Continue same treatment. Continue with symptomatic treatment. Resume home medication. Monitor lytes and vitals. DVT and GI prophylaxis. Further recommendations of the clinical course of the p atient DVT prophylaxis: On Coumadin GI Prophylaxis: Ppi PT/OT: Pending Prognosis is guarded
--- NOTE | 2019-11-03 12:03 | XR ---
EXAMINATION TYPE: XR chest 1V DATE OF EXAM: 11/03/2019 HISTORY: f/u. REFERENCE: Previous study dated 10/30/2019. FINDINGS: The heart remains enlarged. There is worsening right basilar airspace disease. There is a s maller right effusion. There is patchy left basilar airspace disease. There may be a trace effusion o n the left. IMPRESSION: 1. CARDIOMEGALY. 2. BIBASILAR AIRSPACE DISEASE, WORSE ON THE RIGHT THAN THE LEFT. 3. SMALL, BILATERAL EFFUSIONS.
--- NOTE | 2019-11-03 13:52 | US ---
EXAMINATION TYPE: US extremity nonvasc mass RT DATE OF EXAM: 11/03/2019 COMPARISON: Previous study dated 10/31/2019. CLINICAL HISTORY: Follow-up on right gluteal hematoma for monitoring. Right gluteal hypoechoic mass measuring 6.2 x 2.0 x 4.6cm Hypoechoic lesion in the right gluteal region previously measured 8.7 x 8.7 x 3.7 cm and today measur es 6.2 x 2.0 x 4.6 cm. IMPRESSION: SLOWLY RESOLVING PRESUMABLY RIGHT GLUTEAL HEMATOMA.
--- NOTE | 2019-11-03 16:49 | US ---
EXAMINATION TYPE: US chest DATE OF EXAM: 11/03/2019 COMPARISON: x ray CLINICAL HISTORY: Possible right more than left pleural effusion. TECHNIQUE: Targeted ultrasound of the posterior lower EXAM MEASUREMENTS: Right Pleural Effusion pocket size: no evident effusion by today's ultrasound Left Pleural Effusion pocket size: no evident sizable effusion by today's ultrasound. Very minimal e ffusion is not entirely excluded. Pulmonologists are able to review the images in the patient?s EMR. IMPRESSIONS: 1. Very minimal left posterior pleural effusion may be present. This is very small and not amendable to thoracentesis.
[2019-11-03 17:05] LABS: Glucose,Whole Blood 289 mg/dL (75-99)
[2019-11-03] MEDS ORDERED: WARFARIN 3 MG TAB PO ONE (18:00)
[2019-11-03] MEDS ORDERED: INSULIN DETEMIR (LEVEMIR) 100 UNIT/ML SYR SQ SCH (21:00)
[2019-11-03 21:08] LABS: Glucose,Whole Blood 244 mg/dL (75-99)
[2019-11-03] MEDS: FUROSEMIDE 10 MG/ML 4 ML VIAL IV SCH (21:44)
[2019-11-03] MEDS: ATORVASTATIN 80 MG TAB PO SCH (21:45)
[2019-11-03] MEDS: NORTRIPTYLINE 25 MG CAP PO SCH (21:59)
[2019-11-04 06:58] LABS: Glucose,Whole Blood 235 mg/dL (75-99)
[2019-11-04 07:11] LABS: INR 2.3 (<1.2); Prothrombin Time 22.4 sec (9.0-12.0)
[2019-11-04] MEDS: INSULIN ASPART (NovoLOG) 100 UNIT/ML VIAL SQ SCH ×2 (07:47→12:30)
[2019-11-04] MEDS: methylPREDNISolone SOD SUCCI 40 MG/ML 1 ML VIAL IV SCH (07:47)
[2019-11-04] MEDS: oxyCODONE-APAP 10-325MG 1 EACH TAB PO PRN (07:47)
[2019-11-04] MEDS: metFORMIN 500 MG TAB PO SCH (07:47)
[2019-11-04] MEDS: IPRATROPIUM 0.5 MG/2.5 ML NEBU INHALATION SCH ×2 (07:50→11:13)
[2019-11-04] MEDS ORDERED: INSULIN DETEMIR (LEVEMIR) 100 UNIT/ML SYR SQ ONE (08:00)
[2019-11-04 08:18] VITALS: BP 132/73; RESP 18; TEMP 98.5
[2019-11-04] MEDS: MULTIVITAMINS, THERA 1 EACH TAB PO SCH (09:35)
[2019-11-04] MEDS: ASPIRIN 81 MG PO SCH (09:35)
[2019-11-04] MEDS: PREGABALIN 100 MG CAP PO SCH (09:35)
[2019-11-04] MEDS: DOXYCYCLINE 100 MG in SODIUM CHLORIDE 0.9% 100 ML IVPB SCH (09:35)
[2019-11-04] MEDS: FUROSEMIDE 10 MG/ML 4 ML VIAL IV SCH (09:35)
[2019-11-04] MEDS: METOPROLOL TARTRATE 25 MG TAB PO SCH (09:35)
[2019-11-04] MEDS: PANTOPRAZOLE 40 MG TABLET PO SCH (09:36)
[2019-11-04] MEDS: TOPIRAMATE 25 MG TAB PO SCH (09:36)
[2019-11-04] MEDS: LORATADINE 10 MG TAB PO SCH (09:36)
[2019-11-04] MEDS: LISINOPRIL 20 MG TAB PO SCH (09:36)
[2019-11-04] MEDS: AMIODARONE 200 MG TAB PO SCH (09:36)
[2019-11-04 11:23] VITALS: PULSE 52
[2019-11-04 11:31] LABS: Glucose,Whole Blood 149 mg/dL (75-99)
[2019-11-04] MEDS: Acetaminophen-Codeine 300-30mg TAB PO PRN (12:32)
[2019-11-04] MEDS ORDERED: WARFARIN 3 MG TAB PO ONE (18:00)
[2019-11-04] MEDS ORDERED: INSULIN DETEMIR (LEVEMIR) 100 UNIT/ML SYR SQ SCH (21:00)
--- NOTE | 2019-11-05 09:09 | P.DS ---
Providers Date of admission: 10/31/19 13:42 Expected date of discharge: 11/04/19 Attending physician: Shadia Alvarez Consults: 10/31/19 00:41 Consult Physician Stat Consulting Provider: Joshua Heaton Consult Reason/Comments: Bradycardia, Dyspnea on exertion Do you want consulting provider notified?: Yes 10/31/19 08:47 Consult Physician Urgent Consulting Provider: Johnny Bateman Consult Reason/Comments: right gluteam hematoma vs neoplasm Do you want consulting provider notified?: Yes Primary care physician: Kristin Dixon Hospital Course: Final diagnosis -Anasarca, with pulmonary vascular congestion suspicious for heart failure, on the top of mild kidney injury -Acute on chronic systolic heart failure, with ejection fraction 30-35% -Acute COPD exacerbation -Acute hypoxic respiratory failure, secondary to above -Difficulty walking with a fall, CT of the hip showing soft tissue density/mass 7.9 x 6.7 x 5.3 cm in the right gluteal musculature posterior right hip, in tramuscular hematoma -Mild acute kidney injury with hyperkalemia, mostly cardiorenal syndrome -Paroxysmal atrial fibrillation -Right hip osteoarthritis -Elevated liver enzymes, improving gradually -Recent history of left foot diabetic ulcer status post debridement on 08/2019 -Hypertension -Diabetes mellitus -Hyperlipidemia -History of DVT/PE on Coumadin -History of CVA/TIA -Primary osteoarthritis -Migraine -History of pneumothorax Discharge disposition Patient is being discharged in a stable condition with guarded prognosis to home and will follow-up with Dr. Dixon in the outpatient setting upon discharge. Patient will continue with home care and also follow-up with Dr. Mcintyre at the wound care clinic as previously discussed. Patient will need repeat labs in a few days to monitor creatinine along with PT/INR for Coumadin therapy. Total time taken is 35 minutes. History of present illness This is a 64-year-old male who was recently admitted with a recent fall that was mechanical after tripping over a stool and was having hip pain and was being closely monitored. She was found to have a large hematoma as he is on Coumadin and was seen and evaluated by surgery recommending no surgical intervention at this time and is close monitoring. Patient was continued on Coumadin and will continue in the outpatient setting as previously dosed. Patient was seen and evaluated by physical therapy and is adamant about refusing rehab and will continue with home care in the outpatient setting. Current INR is 2.3 and instructed to continue his dose as previously scheduled. Patient also given a prescription for repeat labs in a few days to monitor creatinine as it is 1.29. Patient does take Lasix and will continue with 40 mg daily. Patient has chronic left foot wound and follows with Dr. Mcintyre at the wound care center and is to continue with Monday dressing changes and follow-up in the clinic. Currently no reports of chest pain, shortness of breath, or p alpitations. Patient is afebrile. No reports of nausea or vomiting and patient is tolerating diet. Patient will be discharged today. On exam vital signs are stable. Temp is 98.5F, 56 is the pulse, respirations are 18, blood pressure is 132/73, oxygen saturation is 95% on room air. Cardio S1, S2 are present. Respiratory shows diminished breath sounds with no wheezing or rhonchi noted. Abdomen is soft and nontender. Nervous system shows no focal deficits. Please refer to medication reconciliation sheet for a list of medications. Patient Condition at Discharge: Stable Plan - Discharge Summary Discharge Rx Participant: No New Discharge Prescriptions: New Metoprolol Tartrate [Lopressor] 25 mg PO BID 30 Days #60 tab Acetaminophen Tab [Tylenol] 650 mg PO Q6HR PRN tab PRN Reason: Mild Pain Or Fever > 100.5 Acetaminophen-Codeine 300-30mg [Tylenol w/codeine #3] 1 each PO Q4HR PRN #12 tab PRN Reason: Moderate Pain Continue metFORMIN HCL [Glucophage] 500 mg PO BID Pregabalin [Lyrica] 300 mg PO BID Atorvastatin [Lipitor] 80 mg PO HS Topiramate [Topamax] 25 mg PO BID Warfarin Sodium [Coumadin] 6 mg PO MOTUWEFRSA Multivitamins, Thera [Multivitamin (formulary)] 1 tab PO DAILY Warfarin Sodium 3 mg PO SUTH Omeprazole [PriLOSEC] 20 mg PO BID Docusate [Colace] 100 mg PO DAILY PRN PRN Reason: Constipation Nortriptyline [Pamelor] 50 mg PO HS Albuterol Nebulized [Ventolin Nebulized] 2.5 mg INHALATION RT-DAILY PRN PRN Reason: Shortness Of Breath Aspirin 81 mg PO DAILY 30 Days #30 chew Furosemide [Lasix] 40 mg PO DAILY 30 Days #30 tablet Amiodarone [Cordarone] 200 mg PO TID 30 Days #90 tab Lisinopril 20 mg PO DAILY Loratadine 10 mg PO DAILY Insulin NPH Human Isophane [NovoLIN N] 70 units SQ DAILY oxyCODONE-APAP 10-325MG [Percocet 10-325 mg] 1 tab PO Q6HR PRN PRN Reason: Pain Spiriva Respimat 1.25mcg/Hardin 2 spray INHALATION RT-BID Discontinued Celecoxib [CeleBREX] 200 mg PO DIRECTED Metoprolol Tartrate [Lopressor] 50 mg PO BID Discharge Medication List Atorvastatin [Lipitor] 80 mg PO HS 01/09/14 [History] Pregabalin [Lyrica] 300 mg PO BID 01/09/14 [History] Topiramate [Topamax] 25 mg PO BID 01/09/14 [History] Warfarin Sodium [Coumadin] 6 mg PO MOTUWEFRSA 01/09/14 [History] metFORMIN HCL [Glucophage] 500 mg PO BID 01/09/14 [History] Multivitamins, Thera [Multivitamin (formulary)] 1 tab PO DAILY 11/15/17 [History] Warfarin Sodium 3 mg PO SUTH 05/10/18 [History] Albuterol Nebulized [Ventolin Nebulized] 2.5 mg INHALATION RT-DAILY PRN 08/15/19 [History] Docusate [Colace] 100 mg PO DAILY PRN 08/15/19 [History] Nortriptyline [Pamelor] 50 mg PO HS 08/15/19 [History] Omeprazole [PriLOSEC] 20 mg PO BID 08/15/19 [History] Aspirin 81 mg PO DAILY 30 Days #30 chew 08/26/19 [Rx] Furosemide [Lasix] 40 mg PO DAILY 30 Days #30 tablet 08/26/19 [Rx] Amiodarone [Cordarone] 200 mg PO TID 30 Days #90 tab 09/04/19 [Rx] Insulin NPH Human Isophane [NovoLIN N] 70 units SQ DAILY 10/30/19 [History] Lisinopril 20 mg PO DAILY 10/30/19 [History] Loratadine 10 mg PO DAILY 10/30/19 [History] Spiriva Respimat 1.25mcg/Hardin 2 spray INHALATION RT-BID 10/31/19 [History] oxyCODONE-APAP 10-325MG [Percocet 10-325 mg] 1 tab PO Q6HR PRN 10/31/19 [History] Acetaminophen Tab [Tylenol] 650 mg PO Q6HR PRN tab 11/04/19 [Rx] Acetaminophen-Codeine 300-30mg [Tylenol w/codeine #3] 1 each PO Q4HR PRN #12 tab 11/04/19 [Rx] Metoprolol Tartrate [Lopressor] 25 mg PO BID 30 Days #60 tab 11/04/19 [Rx] Follow up Appointment(s)/Referral(s): Kristin Dixon DO [Primary Care Provider] - 11/06/19 10:20 am (Have the family to call office.) Joshua Heaton MD [STAFF PHYSICIAN] - 12/03/19 1:15 pm (you need stress test and Holter monitor as out-patinet setting STRESS TEST ON November AT 715AM) [facility] Visiting Nurse, [NON-STAFF] - Ambulatory/Diagnostic Orders: Basic Metabolic Panel [LAB.AMB] Time Frame: 3 Days, Location: None Selected Prothrombin Time INR [LAB.AMB] Time Frame: 3 Days, Location: None Selected Activity/Diet/Wound Care/Special Instructions: Patient is going home with home care Patient needs to get a Holter monitor from cardiology prior to discharge and is to schedule a stress test in the outpatient setting Continue current diet Continue following with wound care Continue with local wound care Repeat labs in 2-3 days Discharge Disposition: HOME WITH HOME HEALTH SERVICES
--- NOTE | 2019-11-06 09:45 | CDI ---
Documentation Clarification Form Date: 11/06/2019 09:28:40 AM From: Alessandra Beard CCS, CCDS Admit Date: 10/31/2019 01:42:00 PM Patient Name: Checo Quijano Visit Number: [id number] Discharge Date: 11/04/2019 03:20:00 PM ATTENTION: The Clinical Documentation Specialists (CDI) and [facility] Coding Staff appreciate your assistance in clarifying documentation. Please respond to the clarification below the line at the bottom and electronically sign. The CDI & [facility] Coding staff will review the response and follow-up if needed. Please note: Queries are made part of the Legal Health Record. If you have any questions, please contact the author of this message via ITS. Dr. Samantha Rivera: Per the 10/31 Serology results: Coronavirus Not Detected. Documentation of the results are not found in the record. Patient history/risk factors: Asthma, COPD, Chronic systolic heart failure w/EF 30-35%, Paroxysmal atrial fibrillation, DM II with history of diabetic foot ulcers, DVT & PEs, CVA, Pneumothorax, Obesity w/BMI >40, Former smoker. Clinical Indicators: 64 yo presented to the ED on 10/30 with complaint of unable to ambulate second to a trip & fall in his home, also having dyspnea on exertion, abnormal blood pressure & heart rate. Cough & creamy, grayish phlegm. Quit smoking in August 2019. Diagnosed with acute on chronic systolic heart failure, Acute hypoxic respiratory failure & ANDERSNO. CXR 10/29: Possible pulmonary vascular congestion & mild patchy left basilar atelectasis vs infiltrate. Labs 10/29: BUN 40^, Cr 1.50^, AST 85^, ALT 132^, Alk Phos 159^. COVID-19: Negative. ABGs: Ph 7.32*, Po2 243^, O2 Sat 100.0^ Vital Signs: T 97.6, P 54 - 51 (bradycardic); R 18 - 30^, BP 118/76 - 144/98; PO 95 RA - 96 nrb Treatment 10/29: IV Morphine, IV 1,000 mls@100/hr, IV Narcan Consult: Gen Surgery (Rt hip/gluteal hematoma secondary to fall); Vascular/Wound Care (Diabetic foot ulcer); Cardiology (Paroxysmal atrial fibrillation, Cardiomyopathy) In order to capture the severity of condition, please clarify if the above treatment/clinical indicators signify: COVID-19 Suspected COVID-19 ruled out Other, please specify Unable to determine (Last Form Revision: September 2019) COVID-19 ruled out MTDD
== END 2019-11-04 15:20 | disposition home health service (06) | DRG 291 ==
LOC: EC 19:49 → 3SCARD 10-31 00:18 → OBSVTOIN 10-31 13:42 → 4SSUR 11-03 16:32
PROVIDERS: ADMIT Hospitalist; ATTEND Hospitalist
DX: I13.0 Hypertensive heart and chronic kidney disease with heart failure and stage 1 through stage 4 chronic kidney disease, or unspecified chronic kidney disease (principal); I50.23 Acute on chronic systolic (congestive) heart failure; J96.01 Acute respiratory failure with hypoxia; J44.1 Chronic obstructive pulmonary disease with (acute) exacerbation; N17.9 Acute kidney failure, unspecified; G43.909 Migraine, unspecified, not intractable, without status migrainosus; G47.30 Sleep apnea, unspecified; T38.0X5A Adverse effect of glucocorticoids and synthetic analogues, initial encounter; E11.22 Type 2 diabetes mellitus with diabetic chronic kidney disease; E11.40 Type 2 diabetes mellitus with diabetic neuropathy, unspecified; E11.51 Type 2 diabetes mellitus with diabetic peripheral angiopathy without gangrene; D72.829 Elevated white blood cell count, unspecified; E11.621 Type 2 diabetes mellitus with foot ulcer; E78.5 Hyperlipidemia, unspecified; E87.5 Hyperkalemia; F41.1 Generalized anxiety disorder; I42.9 Cardiomyopathy, unspecified; I48.0 Paroxysmal atrial fibrillation; Z79.4 Long term (current) use of insulin; L97.509 Non-pressure chronic ulcer of other part of unspecified foot with unspecified severity; F17.210 Nicotine dependence, cigarettes, uncomplicated; Z20.828 Contact with and (suspected) exposure to other viral communicable diseases; M16.11 Unilateral primary osteoarthritis, right hip; S30.0XXA Contusion of lower back and pelvis, initial encounter; R79.1 Abnormal coagulation profile; W01.0XXA Fall on same level from slipping, tripping and stumbling without subsequent striking against object, initial encounter; S70.01XA Contusion of right hip, initial encounter; T45.515A Adverse effect of anticoagulants, initial encounter; Z79.01 Long term (current) use of anticoagulants; Z79.1 Long term (current) use of non-steroidal anti-inflammatories (NSAID); Z79.82 Long term (current) use of aspirin; Z79.899 Other long term (current) drug therapy; Z82.49 Family history of ischemic heart disease and other diseases of the circulatory system; Z86.711 Personal history of pulmonary embolism; Z86.718 Personal history of other venous thrombosis and embolism; Z86.73 Personal history of transient ischemic attack (TIA), and cerebral infarction without residual deficits; Z91.19 Patient's noncompliance with other medical treatment and regimen; Z95.828 Presence of other vascular implants and grafts; Z96.642 Presence of left artificial hip joint; Z87.01 Personal history of pneumonia (recurrent); Z90.49 Acquired absence of other specified parts of digestive tract
CPT/HCPCS: 36415; 36600; 70450; 71045; 73502; 76604; 80048; 80053; 80061; 82805; 83036; 83735; 83880; 84132; 84443; 84484; 85025; 85610; 85730; 86850; 86900; 86901; 87635; 93005; 93308; 94640; 96361; 96374; 96375; 99285

== ENCOUNTER 2020-02-28 22:30 | Inpatient (IN) | payer MEDICARE ==
[2020-02-28 22:39] LABS: Glucose,Whole Blood 241 mg/dL (75-99)
--- NOTE | 2020-02-28 23:06 | ED ---
General Adult HPI - General Stated complaint: Altered Mental Health Time Seen by Provider: 02/28/20 22:38 - History of Present Illness Initial comments: This patient is 64-year-old man who presents because he has "been feeling out of it all day." Patient complains of fatigue, generalized weakness. He states he has been dealing with a left leg infection. His leg is been red and swollen. -: month(s) Location: left, lower extremity Quality: dull Consistency: constant Improves with: none Worsens with: none Associated Symptoms: confusion, loss of appetite, malaise Treatments Prior to Arrival: none - Related Data Home Medications Medication Instructions Recorded Confirmed Atorvastatin [Lipitor] 80 mg PO HS 01/09/14 10/31/19 Pregabalin [Lyrica] 300 mg PO BID 01/09/14 10/31/19 Topiramate [Topamax] 25 mg PO BID 01/09/14 10/31/19 Warfarin Sodium [Coumadin] 6 mg PO MOTUWEFRSA 01/09/14 10/31/19 metFORMIN HCL [Glucophage] 500 mg PO BID 01/09/14 10/31/19 Multivitamins, Thera [Multivitamin 1 tab PO DAILY 11/15/17 10/31/19 (formulary)] Warfarin Sodium 3 mg PO SUTH 05/10/18 10/31/19 Albuterol Nebulized [Ventolin 2.5 mg INHALATION RT-DAILY PRN 08/15/19 10/31/19 Nebulized] Docusate [Colace] 100 mg PO DAILY PRN 08/15/19 10/31/19 Nortriptyline [Pamelor] 50 mg PO HS 08/15/19 10/31/19 Omeprazole [PriLOSEC] 20 mg PO BID 08/15/19 10/31/19 Insulin NPH Human Isophane 70 units SQ DAILY 10/30/19 10/31/19 [NovoLIN N] Loratadine 10 mg PO DAILY 10/30/19 10/31/19 lisinopriL 20 mg PO DAILY 10/30/19 10/30/19 Spiriva Respimat 1.25mcg/[place] 2 spray INHALATION RT-BID 10/31/19 10/31/19 oxyCODONE-APAP 10-325MG [Percocet 1 tab PO Q6HR PRN 10/31/19 10/31/19 10-325 mg] Previous Rx's Medication Instructions Recorded Aspirin 81 mg PO DAILY 30 Days #30 chew 08/26/19 Furosemide [Lasix] 40 mg PO DAILY 30 Days #30 tablet 08/26/19 Amiodarone [Cordarone] 200 mg PO TID 30 Days #90 tab 09/04/19 Acetaminophen Tab [Tylenol] 650 mg PO Q6HR PRN tab 11/04/19 Acetaminophen-Codeine 300-30mg 1 each PO Q4HR PRN #12 tab 11/04/19 [Tylenol w/codeine #3] Metoprolol Tartrate [Lopressor] 25 mg PO BID 30 Days #60 tab 11/04/19 Allergies Allergy/AdvReac Type Severity Reaction Status Date / Time baclofen Allergy Unknown Verified 10/31/19 09:51 Review of Systems ROS Statement: Those systems with pertinent positive or pertinent negative responses have been documented in the HPI. ROS Other: All systems not noted in ROS Statement are negative. Constitutional: Reports: fever, chills, weakness Respiratory: Denies: cough, dyspnea Cardiovascular: Reports: edema. Denies: chest pain, palpitations Gastrointestinal: Denies: abdominal pain, vomiting, diarrhea Genitourinary: Denies: dysuria, hematuria Musculoskeletal: Denies: back pain Skin: Denies: rash Neurological: Reports: confusion. Denies: headache, weakness, numbness Past Medical History Past Medical History: Asthma, COPD, CVA/TIA, Diabetes Mellitus, Deep Vein Thrombosis (DVT), GERD/Reflux, Hyperlipidemia, Hypertension, Neurologic Disorder, Osteoarthritis (OA), Pneumonia, Pulmonary Embolus (PE) Additional Past Medical History / Comment(s): MIGRAINES. " ANITICOAGULANT LUPUS". PNEUMOTHRORAX. PERIPHERAL EDEMA. History of Any Multi-Drug Resistant Organisms: None Reported Past Surgical History: Adenoidectomy, Appendectomy, Tonsillectomy Additional Past Surgical History / Comment(s): HAILE FILTER . VEIN STRIPPING. STENTS IN "PELVIC AREA" NOVEMBER 2004. Past Anesthesia/Blood Transfusion Reactions: No Reported Reaction Past Psychological History: No Psychological Hx Reported Additional Psychological History / Comment(s): TAKES CYMBALTA FOR CARPAL TUNNEL. Past Alcohol Use History: None Reported Past Drug Use History: None Reported - Past Family History Mother Additional Family Medical History / Comment(s): heart disease, peripheral vascular disease. Father Family Medical History: Unable to Obtain General Exam General appearance: alert, in no apparent distress Head exam: Present: atraumatic, normocephalic Eye exam: Present: normal appearance ENT exam: Present: normal oropharynx Neck exam: Present: normal inspection, full ROM. Absent: meningismus Respiratory exam: Present: normal lung sounds bilaterally. Absent: respiratory distress, wheezes, rales, rhonchi, stridor Cardiovascular Exam: Present: regular rate, normal rhythm, normal heart sounds. Absent: systolic murmur, diastolic murmur, rubs, gallop GI/Abdominal exam: Present: soft. Absent: distended, tenderness, guarding, rebound, rigid, mass Extremities exam: Present: normal inspection, tenderness (Left leg tenderness), normal capillary refill, pedal edema (There is left leg edema). Absent: calf tenderness Neurological exam: Present: alert, oriented X3, CN II-XII intact. Absent: motor sensory deficit Skin exam: Present: warm, dry, intact, erythema (Left leg. Warmth and erythema consistent with cellulitis), other (Chronic stasis changes). Absent: normal c olor Course Vital Signs 02/28/20 02/28/20 02/29/20 23:00 23:34 00:00 Temperature 100.4 F H Pulse Rate 79 79 81 Respiratory 18 19 20 Rate Blood Pressure 122/71 98/75 91/59 O2 Sat by Pulse 96 93 L 94 L Oximetry 02/29/20 01:00 Temperature Pulse Rate 73 Respiratory 19 Rate Blood Pressure 105/85 O2 Sat by Pulse 97 Oximetry EKG Findings - EKG Results: EKG: interpreted by ERMD, sinus rhythm (Rate 81 bpm) - Blocks, [place], Hypertrophy, ST Abn: AV and intraventricular conduction: 1 AV block, left anterior fascicular block Medical Decision Making - Lab Data Result diagrams: 02/28/20 23:52 02/28/20 23:33 Lab Results 02/28/20 02/28/20 02/28/20 Range/Units 22:36 23:33 23:33 WBC (3.8-10.6) k/uL RBC (4.30-5.90) m/uL Hgb (13.0-17.5) gm/dL Hct (39.0-53.0) % MCV (80.0-100.0) fL MCH (25.0-35.0) pg MCHC (31.0-37.0) g/dL RDW (11.5-15.5) % Plt Count (150-450) k/uL Neutrophils % % Lymphocytes % % Monocytes % % Eosinophils % % Basophils % % Neutrophils # (1.3-7.7) k/uL Lymphocytes # (1.0-4.8) k/uL Monocytes # (0-1.0) k/uL Eosinophils # (0-0.7) k/uL Basophils # (0-0.2) k/uL PT (9.0-12.0) sec INR (<1.2) APTT (22.0-30.0) sec Sodium 130 L (137-145) mmol/L Potassium 4.3 (3.5-5.1) mmol/L Chloride 99 (98-107) mmol/L Carbon Dioxide 23 (22-30) mmol/L Anion Gap 8 mmol/L BUN 16 (9-20) mg/dL Creatinine 0.96 (0.66-1.25) mg/dL Est GFR (CKD-EPI)AfAm >90 (>60 ml/min/1.73 sqM) Est GFR (CKD-EPI)NonAf 85 (>60 ml/min/1.73 sqM) Glucose 222 H (74-99) mg/dL POC Glucose (mg/dL) 241 H (75-99) mg/dL POC Glu Programmer Temitope Betancourt Plasma Lactic Acid Dennis 2.0 (0.7-2.0) mmol/L Calcium 7.9 L (8.4-10.2) mg/dL Total Bilirubin 1.0 (0.2-1.3) mg/dL AST 19 (17-59) U/L ALT 16 (4-49) U/L Alkaline Phosphatase 124 (38-126) U/L Troponin I (0.000-0.034) ng/mL Total Protein 6.0 L (6.3-8.2) g/dL Albumin 3.2 L (3.5-5.0) g/dL Urine Color Urine Appearance (Clear) Urine pH (5.0-8.0) Ur Specific [place] (1.001-1.035) Urine Protein (Negative) Urine Glucose (UA) (Negative) Urine Ketones (Negative) Urine Blood (Negative) Urine Nitrite (Negative) Urine Bilirubin (Negative) Urine Urobilinogen (<2.0) mg/dL Ur Leukocyte Esterase (Negative) 02/28/20 02/28/20 02/28/20 Range/Units 23:33 23:52 23:52 WBC 14.9 H (3.8-10.6) k/uL RBC 4.69 (4.30-5.90) m/uL Hgb 14.6 (13.0-17.5) gm/dL Hct 43.5 (39.0-53.0) % MCV 92.8 D (80.0-100.0) fL MCH 31.1 (25.0-35.0) pg MCHC 33.5 (31.0-37.0) g/dL RDW 14.8 (11.5-15.5) % Plt Count 230 (150-450) k/uL Neutrophils % 87 % Lymphocytes % 5 % Monocytes % 5 % Eosinophils % 1 % Basophils % 0 % Neutrophils # 13.0 H (1.3-7.7) k/uL Lymphocytes # 0.8 L (1.0-4.8) k/uL Monocytes # 0.8 (0-1.0) k/uL Eosinophils # 0.1 (0-0.7) k/uL Basophils # 0.0 (0-0.2) k/uL PT 11.3 (9.0-12.0) sec INR 1.1 (<1.2) APTT 24.7 (22.0-30.0) sec Sodium (137-145) mmol/L Potassium (3.5-5.1) mmol/L Chloride (98-107) mmol/L Carbon Dioxide (22-30) mmol/L Anion Gap mmol/L BUN (9-20) mg/dL Creatinine (0.66-1.25) mg/dL Est GFR (CKD-EPI)AfAm (>60 ml/min/1.73 sqM) Est GFR (CKD-EPI)NonAf (>60 ml/min/1.73 sqM) Glucose (74-99) mg/dL POC Glucose (mg/dL) (75-99) mg/dL POC Glu Programmer ID Plasma Lactic Acid Dennis (0.7-2.0) mmol/L Calcium (8.4-10.2) mg/dL Total Bilirubin (0.2-1.3) mg/dL AST (17-59) U/L ALT (4-49) U/L Alkaline Phosphatase (38-126) U/L Troponin I 0.013 (0.000-0.034) ng/mL Total Protein (6.3-8.2) g/dL Albumin (3.5-5.0) g/dL Urine Color Urine Appearance (Clear) Urine pH (5.0-8.0) Ur Specific [place] (1.001-1.035) Urine Protein (Negative) Urine Glucose (UA) (Negative) Urine Ketones (Negative) Urine Blood (Negative) Urine Nitrite (Negative) Urine Bilirubin (Negative) Urine Urobilinogen (<2.0) mg/dL Ur Leukocyte Esterase (Negative) 02/29/20 Range/Units 01:40 WBC (3.8-10.6) k/uL RBC (4.30-5.90) m/uL Hgb (13.0-17.5) gm/dL Hct (39.0-53.0) % MCV (80.0-100.0) fL MCH (25.0-35.0) pg MCHC (31.0-37.0) g/dL RDW (11.5-15.5) % Plt Count (150-450) k/uL Neutrophils % % Lymphocytes % % Monocytes % % Eosinophils % % Basophils % % Neutrophils # (1.3-7.7) k/uL Lymphocytes # (1.0-4.8) k/uL Monocytes # (0-1.0) k/uL Eosinophils # (0-0.7) k/uL Basophils # (0-0.2) k/uL PT (9.0-12.0) sec INR (<1.2) APTT (22.0-30.0) sec Sodium (137-145) mmol/L Potassium (3.5-5.1) mmol/L Chloride (98-107) mmol/L Carbon Dioxide (22-30) mmol/L Anion Gap mmol/L BUN (9-20) mg/dL Creatinine (0.66-1.25) mg/dL Est GFR (CKD-EPI)AfAm (>60 ml/min/1.73 sqM) Est GFR (CKD-EPI)NonAf (>60 ml/min/1.73 sqM) Glucose (74-99) mg/dL POC Glucose (mg/dL) (75-99) mg/dL POC Glu Programmer ID Plasma Lactic Acid Dennis (0.7-2.0) mmol/L Calcium (8.4-10.2) mg/dL Total Bilirubin (0.2-1.3) mg/dL AST (17-59) U/L ALT (4-49) U/L Alkaline Phosphatase (38-126) U/L Troponin I (0.000-0.034) ng/mL Total Protein (6.3-8.2) g/dL Albumin (3.5-5.0) g/dL Urine Color Yellow Urine Appearance Clear (Clear) Urine pH 6.5 (5.0-8.0) Ur Specific [place] 1.021 (1.001-1.035) Urine Protein Trace H (Negative) Urine Glucose (UA) 3+ H (Negative) Urine Ketones Negative (Negative) Urine Blood Negative (Negative) Urine Nitrite Negative (Negative) Urine Bilirubin Negative (Negative) Urine Urobilinogen 3.0 (<2.0) mg/dL Ur Leukocyte Esterase Negative (Negative) Disposition Clinical Impression: Left leg cellulitis, Diabetic foot ulcer Disposition: ADMITTED IP TO THIS HOSP Condition: Fair Referrals: Kristin Emery DO [Primary Care Provider] - 1-2 days
--- NOTE | 2020-02-28 23:45 | XR ---
EXAMINATION TYPE: XR chest 1V portable DATE OF EXAM: 02/28/2020 COMPARISON: 11/03/2019 HISTORY: Fever TECHNIQUE: FINDINGS: There is coarse pulmonary interstitial density in the mid and lower lung swartz. Heart is e nlarged. There is no definite pleural effusion. There are chest leads. IMPRESSION: Cardiomegaly. There are chronic pulmonary interstitial infiltrates. I think that there is combined mild heart failure and pulmonary interstitial fibrosis unchanged compared to last exam.
[2020-02-29 00:01] LABS: ALT 16 U/L (4-49); AST 19 U/L (17-59); African American GFR (CKD) >90 (>60 ml/min/1.73 sqM); Albumin 3.2 g/dL (3.5-5.0); Alkaline Phosphatase 124 U/L (38-126); Anion Gap 8 mmol/L; Blood Urea Nitrogen 16 mg/dL (9-20); Calcium 7.9 mg/dL (8.4-10.2); Carbon Dioxide 23 mmol/L (22-30); Chloride 99 mmol/L (98-107); Glucose 222 mg/dL (74-99); Non-African American GFR(CKD) 85 (>60 ml/min/1.73 sqM); Potassium 4.3 mmol/L (3.5-5.1); Sodium 130 mmol/L (137-145)
[2020-02-29 00:10] LABS: Basophils % (A) 0 %; Eosinophils # (A) 0.1 k/uL (0-0.7); Eosinophils % (A) 1 %; HCT 43.5 % (39.0-53.0); HGB 14.6 gm/dL (13.0-17.5); Lymphocytes # (A) 0.8 k/uL (1.0-4.8); Lymphocytes % (A) 5 %; MCH 31.1 pg (25.0-35.0); MCHC 33.5 g/dL (31.0-37.0); Monocytes # (A) 0.8 k/uL (0-1.0); Monocytes % (A) 5 %; Neutrophils % (A) 87 %; Platelet Count 230 k/uL (150-450); RBC 4.69 m/uL (4.30-5.90); RDW 14.8 % (11.5-15.5); WBC 14.9 k/uL (3.8-10.6)
[2020-02-29 00:13] LABS: MCV 92.8 fL (80.0-100.0)
[2020-02-29 00:19] LABS: INR 1.1 (<1.2); Partial Thromboplastin Time 24.7 sec (22.0-30.0); Prothrombin Time 11.3 sec (9.0-12.0)
[2020-02-29 01:49] LABS: Appearance,Urine Clear (Clear); Bilirubin,Urine Negative (Negative); Blood,Urine Negative (Negative); Color,Urine Yellow; Glucose,Urine (UA) 3+ (Negative); Ketones,Urine Negative (Negative); Leukocyte Esterase,Urine Negative (Negative); Nitrite,Urine Negative (Negative); PH, Urine 6.5 (5.0-8.0); Protein,Urine Trace (Negative); Specific Gravity,Urine 1.021 (1.001-1.035)
[2020-02-29] MEDS ORDERED: NALOXONE 0.4 MG/ML 1 ML VIAL IV PRN (02:17)
[2020-02-29] MEDS ORDERED: VANCOMYCIN IV PER PHARMACY 1 EACH MISC MISCELLANE PRN (02:20)
[2020-02-29] MEDS ORDERED: DOCUSATE 100 MG CAP PO PRN (02:21)
[2020-02-29] MEDS ORDERED: ALBUTEROL NEBULIZED 2.5 MG/3 ML INHALATION PRN (02:21)
[2020-02-29] MEDS ORDERED: VANCOMYCIN 2,250 MG in SODIUM CHLORIDE 0.9% 500 ML 500 ML IVPB ONE (03:00)
[2020-02-29 03:55] LABS: Glucose,Whole Blood 155 mg/dL (75-99)
[2020-02-29] MEDS: oxyCODONE-APAP 10-325MG 1 EACH TAB PO PRN ×2 (04:15→12:50)
[2020-02-29] MEDS: SODIUM CHLORIDE 0.9% 1,000 ML IV SCH (04:25)
[2020-02-29 07:14] LABS: Glucose,Whole Blood 171 mg/dL (75-99)
[2020-02-29] MEDS: INSULIN ASPART (NovoLOG) 100 UNIT/ML VIAL SQ SCH ×4 (07:38→20:34)
[2020-02-29] MEDS: PREGABALIN 100 MG CAP PO SCH ×2 (07:38→20:29)
[2020-02-29] MEDS: MULTIVITAMINS, THERA 1 EACH TAB PO SCH (07:38)
[2020-02-29] MEDS: ASPIRIN 81 MG PO SCH (07:38)
[2020-02-29] MEDS: PANTOPRAZOLE 40 MG TABLET PO SCH ×2 (07:38→20:29)
[2020-02-29] MEDS: metFORMIN 500 MG TAB PO SCH ×2 (07:39→20:29)
[2020-02-29] MEDS: lisinopriL 20 MG TAB PO SCH (07:39)
[2020-02-29] MEDS: TOPIRAMATE 25 MG TAB PO SCH ×2 (07:39→20:30)
[2020-02-29] MEDS: AMIODARONE 200 MG TAB PO SCH ×3 (07:39→20:30)
[2020-02-29] MEDS ORDERED: METOPROLOL TARTRATE 25 MG TAB PO SCH (09:00)
[2020-02-29] MEDS ORDERED: FUROSEMIDE 40 MG TAB PO SCH (09:00)
[2020-02-29] MEDS: IPRATROPIUM 0.5 MG/2.5 ML NEBU INHALATION SCH ×4 (09:29→20:48)
[2020-02-29] MEDS ORDERED: LIDOCAINE 1% INJ 10MG/ML (20 ML MDV) ONE (11:24)
[2020-02-29] MEDS ORDERED: SILVER NITRATE APPLICATOR 1 EACH STICK..EA. TOPICAL STA ×2 (11:44→12:00)
[2020-02-29 11:55] LABS: Glucose,Whole Blood 163 mg/dL (75-99)
[2020-02-29] MEDS ORDERED: PIPERACILLIN-TAZOBACTAM 3.375 GM in SODIUM CHLORIDE 0.9% 100 ML IVPB SCH (12:00)
--- NOTE | 2020-02-29 12:28 | P.GSCN ---
History of Present Illness History of present illness: 64-year-old diabetic male known to me from the wound clinic we've been following him for local wound care of the left foot plantar aspect patient came to the emergency room with history of for tenderness and swelling and redness of the left foot. Patient has a superficial ulcer on the left foot lateral aspect 1 x 1.5 cm and the and second ulcer is a 2 x 2 CM and in between the ulcer there is a tunneling noted with some devitalized skin and some drainage noted. 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 Patient was seen seen in his room his left foot has some swelling and neck is supple Chest is clear first and second sound normal normal with good entry on both lungs Abdomen is soft nontender Vascular examination femorals are 1+ bilateral patient has a Brown induration of the both lower extremity pulses are present but the Doppler S aspect of the foot has a ulcer with some tunneling noted with some serous drainage Plan is debridement of the wound and we'll take a deep culture for IV antibiotic and local wound care prognosis guarded Past Medical History Past Medical History: Asthma, COPD, CVA/TIA, Diabetes Mellitus, Deep Vein Thrombosis (DVT), GERD/Reflux, Hyperlipidemia, Hypertension, Neurologic Disorder, Osteoarthritis (OA), Pneumonia, Pulmonary Embolus (PE) Additional Past Medical History / Comment(s): MIGRAINES. " ANITICOAGULANT LUPUS". PNEUMOTHRORAX. PERIPHERAL EDEMA. History of Any Multi-Drug Resistant Organisms: None Reported Past Surgical History: Adenoidectomy, Appendectomy, Tonsillectomy Additional Past Surgical History / Comment(s): HAILE FILTER . VEIN STRIPPING. STENTS IN "PELVIC AREA" NOVEMBER 2004. Past Anesthesia/Blood Transfusion Reactions: No Reported Reaction Past Psychological History: No Psychological Hx Reported Smoking Status: Former smoker Past Alcohol Use History: None Reported Past Drug Use History: None Reported - Past Family History Mother Additional Family Medical History / Comment(s): heart disease, peripheral vascular disease. Father Family Medical History: Unable to Obtain Medications and Allergies Home Medications Medication Instructions Recorded Confirmed Type Atorvastatin [Lipitor] 80 mg PO HS 01/09/14 02/29/20 History Pregabalin [Lyrica] 300 mg PO BID 01/09/14 02/29/20 History Topiramate [Topamax] 25 mg PO BID 01/09/14 02/29/20 History metFORMIN HCL [Glucophage] 500 mg PO BID 01/09/14 02/29/20 History Multivitamins, Thera [Multivitamin 1 tab PO DAILY 11/15/17 02/29/20 History (formulary)] Nortriptyline [Pamelor] 50 mg PO HS 08/15/19 02/29/20 History Omeprazole [PriLOSEC] 20 mg PO BID 08/15/19 02/29/20 History Aspirin 81 mg PO DAILY 30 Days #30 chew 08/26/19 02/29/20 Rx Furosemide [Lasix] 40 mg PO DAILY 30 Days #30 tablet 08/26/19 02/29/20 Rx Insulin NPH Human Isophane See Protocol SQ DAILY 10/30/19 02/29/20 History [NovoLIN N] Loratadine 10 mg PO DAILY 10/30/19 02/29/20 History Spiriva Respimat 1.25mcg/[place] 2 spray INHALATION RT-BID 10/31/19 02/29/20 History oxyCODONE-APAP 10-325MG [Percocet 1 tab PO Q6HR PRN 10/31/19 02/29/20 History 10-325 mg] Acetaminophen Tab [Tylenol] 650 mg PO Q6HR PRN tab 11/04/19 02/29/20 Rx Celecoxib [CeleBREX] 200 mg PO DAILY 02/29/20 02/29/20 History Metoprolol Succinate (ER) [Toprol 50 mg PO DAILY 02/29/20 02/29/20 History Xl] Warfarin [Coumadin] 3 mg PO MOTUWEFRSA 02/29/20 02/29/20 History Warfarin [Coumadin] 4.5 mg PO SUTH 02/29/20 02/29/20 History Allergies Allergy/AdvReac Type Severity Reaction Status Date / Time baclofen Allergy Unknown Verified 02/29/20 09:37 Surgical - Exam Vital Signs Temp Pulse Resp BP Pulse Ox 100.4 F H 79 18 122/71 96 02/28/20 23:00 02/28/20 23:00 02/28/20 23:00 02/28/20 23:00 02/28/20 23:00 Results - Labs 02/28/20 23:52 02/28/20 23:33 Abnormal Lab Results - Last 24 Hours (Table) 02/28/20 02/28/20 02/28/20 Range/Units 22:36 23:33 23:52 WBC 14.9 H (3.8-10.6) k/uL Neutrophils # 13.0 H (1.3-7.7) k/uL Lymphocytes # 0.8 L (1.0-4.8) k/uL Sodium 130 L (137-145) mmol/L Glucose 222 H (74-99) mg/dL POC Glucose (mg/dL) 241 H (75-99) mg/dL Calcium 7.9 L (8.4-10.2) mg/dL Total Protein 6.0 L (6.3-8.2) g/dL Albumin 3.2 L (3.5-5.0) g/dL Urine Protein (Negative) Urine Glucose (UA) (Negative) 02/29/20 02/29/20 02/29/20 Range/Units 01:40 03:53 07:13 WBC (3.8-10.6) k/uL Neutrophils # (1.3-7.7) k/uL Lymphocytes # (1.0-4.8) k/uL Sodium (137-145) mmol/L Glucose (74-99) mg/dL POC Glucose (mg/dL) 155 H 171 H (75-99) mg/dL Calcium (8.4-10.2) mg/dL Total Protein (6.3-8.2) g/dL Albumin (3.5-5.0) g/dL Urine Protein Trace H (Negative) Urine Glucose (UA) 3+ H (Negative) 02/29/20 Range/Units 11:54 WBC (3.8-10.6) k/uL Neutrophils # (1.3-7.7) k/uL Lymphocytes # (1.0-4.8) k/uL Sodium (137-145) mmol/L Glucose (74-99) mg/dL POC Glucose (mg/dL) 163 H (75-99) mg/dL Calcium (8.4-10.2) mg/dL Total Protein (6.3-8.2) g/dL Albumin (3.5-5.0) g/dL Urine Protein (Negative) Urine Glucose (UA) (Negative) Diabetes panel 02/28/20 Range/Units 23:33 Sodium 130 L (137-145) mmol/L Potassium 4.3 (3.5-5.1) mmol/L Chloride 99 (98-107) mmol/L Carbon Dioxide 23 (22-30) mmol/L BUN 16 (9-20) mg/dL Creatinine 0.96 (0.66-1.25) mg/dL Glucose 222 H (74-99) mg/dL Calcium 7.9 L (8.4-10.2) mg/dL AST 19 (17-59) U/L ALT 16 (4-49) U/L Alkaline Phosphatase 124 (38-126) U/L Total Protein 6.0 L (6.3-8.2) g/dL Albumin 3.2 L (3.5-5.0) g/dL Calcium panel 02/28/20 Range/Units 23:33 Calcium 7.9 L (8.4-10.2) mg/dL Albumin 3.2 L (3.5-5.0) g/dL Pituitary panel 02/28/20 Range/Units 23:33 Sodium 130 L (137-145) mmol/L Potassium 4.3 (3.5-5.1) mmol/L Chloride 99 (98-107) mmol/L Carbon Dioxide 23 (22-30) mmol/L BUN 16 (9-20) mg/dL Creatinine 0.96 (0.66-1.25) mg/dL Glucose 222 H (74-99) mg/dL Calcium 7.9 L (8.4-10.2) mg/dL Adrenal panel 02/28/20 Range/Units 23:33 Sodium 130 L (137-145) mmol/L Potassium 4.3 (3.5-5.1) mmol/L Chloride 99 (98-107) mmol/L Carbon Dioxide 23 (22-30) mmol/L BUN 16 (9-20) mg/dL Creatinine 0.96 (0.66-1.25) mg/dL Glucose 222 H (74-99) mg/dL Calcium 7.9 L (8.4-10.2) mg/dL Total Bilirubin 1.0 (0.2-1.3) mg/dL AST 19 (17-59) U/L ALT 16 (4-49) U/L Alkaline Phosphatase 124 (38-126) U/L Total Protein 6.0 L (6.3-8.2) g/dL Albumin 3.2 L (3.5-5.0) g/dL
--- NOTE | 2020-02-29 12:31 | P.PCN ---
Description of Procedure: preoperative diagnoses is ulcer left foot lateral aspect ulcer #1 is 1 x 0.5 cm and ulcer #2 is 2 x 2 CM with tunneling noted and some serous discharge noted Postoperative same Procedure left foot was prepped and draped applied sterile manner 1% lidocaine for infected using the sharp scissor we opened up the tunneling between the 2 ulcer debridement last skin was excised which scissor bleeding was noted which was controlled then wound was irrigated with saline Aquacel silver rope applied to the wound dressing applied change her dressing every 48 hours using Aquacel silver patient tolerated the procedure well
[2020-02-29] MEDS: ENOXAPARIN 40 MG/0.4 ML SYRINGE SQ SCH (12:46)
[2020-02-29] MEDS: FUROSEMIDE 10 MG/ML 4 ML VIAL IV SCH ×2 (12:46→20:29)
--- NOTE | 2020-02-29 15:12 | P.HPIM ---
History of Present Illness 64-year-old male with charcot foot foot leading to multiple infections of the of the left foot and left leg came in with complaints of increased pain swelling and redness of the left leg. Patient had 2 superficial ulcers on the plantar aspect of the left foot which are common indicating with a fistula. Basilar surgery evaluated the patient and and patient had debridement of this these ulcers. Deep wound cultures were obtained. Patient does have cellulitis of the left leg. Patient had ham amputation of the left first and second toes. Patient denied any fever chills patient and her nausea vomiting. Patient does have history of heart failure is on Lasix does have significant bilateral pedal edema chest x-ray did show some pulmonary edema patient will be switched IV Lasix. Patient is on Coumadin INR is only 1 because of that reason I'll start patient on DVT prophylaxis Lovenox and Coumadin will be continued and we will increase the dose of the Coumadin. Patient is on Coumadin for pulmonary embolism in the past which was years ago Review of Systems REVIEW OF SYSTEMS: CONSTITUTIONAL: No fever, no malaise, no fatigue. HEENT: No recent visual problems or hearing problems. Denied any sore throat. CARDIOVASCULAR: No chest pain, orthopnea, PND, no palpitations, no syncope. PULMONARY: No shortness of breath, no cough, no hemoptysis. GASTROINTESTINAL: No diarrhea, no nausea, no vomiting, no abdominal pain. NEUROLOGICAL: No headaches, no weakness, no numbness. HEMATOLOGICAL: Denies any bleeding or petechiae. GENITOURINARY: Denies any burning micturition, frequency, or urgency. MUSCULOSKELETAL/RHEUMATOLOGICAL: As mentioned in HPI ENDOCRINE: Denies any polyuria or polydipsia. The rest of the 14-point review of systems is negative. Past Medical History Past Medical History: Asthma, COPD, CVA/TIA, Diabetes Mellitus, Deep Vein T hrombosis (DVT), GERD/Reflux, Hyperlipidemia, Hypertension, Neurologic Disorder, Osteoarthritis (OA), Pneumonia, Pulmonary Embolus (PE) Additional Past Medical History / Comment(s): MIGRAINES. " ANITICOAGULANT LUPUS". PNEUMOTHRORAX. PERIPHERAL EDEMA. History of Any Multi-Drug Resistant Organisms: None Reported Past Surgical History: Adenoidectomy, Appendectomy, Tonsillectomy Additional Past Surgical History / Comment(s): HAILE FILTER 1980S. VEIN STRIPPING. STENTS IN "PELVIC AREA" NOVEMBER 2004. Past Anesthesia/Blood Transfusion Reactions: No Reported Reaction Past Psychological History: No Psychological Hx Reported Smoking Status: Former smoker Past Alcohol Use History: None Reported Past Drug Use History: None Reported - Past Family History Mother Additional Family Medical History / Comment(s): heart disease, peripheral vascular disease. Father Family Medical History: Unable to Obtain Medications and Allergies Home Medications Medication Instructions Recorded Confirmed Type Atorvastatin [Lipitor] 80 mg PO HS 01/09/14 02/29/20 History Pregabalin [Lyrica] 300 mg PO BID 01/09/14 02/29/20 History Topiramate [Topamax] 25 mg PO BID 01/09/14 02/29/20 History metFORMIN HCL [Glucophage] 500 mg PO BID 01/09/14 02/29/20 History Multivitamins, Thera [Multivitamin 1 tab PO DAILY 11/15/17 02/29/20 History (formulary)] Nortriptyline [Pamelor] 50 mg PO HS 08/15/19 02/29/20 History Omeprazole [PriLOSEC] 20 mg PO BID 08/15/19 02/29/20 History Aspirin 81 mg PO DAILY 30 Days #30 chew 08/26/19 02/29/20 Rx Furosemide [Lasix] 40 mg PO DAILY 30 Days #30 tablet 08/26/19 02/29/20 Rx Insulin NPH Human Isophane See Protocol SQ DAILY 10/30/19 02/29/20 History [NovoLIN N] Loratadine 10 mg PO DAILY 10/30/19 02/29/20 History Spiriva Respimat 1.25mcg/[place] 2 spray INHALATION RT-BID 10/31/19 02/29/20 History oxyCODONE-APAP 10-325MG [Percocet 1 tab PO Q6HR PRN 10/31/19 02/29/20 History 10-325 mg] Acetaminophen Tab [Tylenol] 650 mg PO Q6HR PRN tab 11/04/19 02/29/20 Rx Celecoxib [CeleBREX] 200 mg PO DAILY 02/29/20 02/29/20 History Metoprolol Succinate (ER) [Toprol 50 mg PO DAILY 02/29/20 02/29/20 History Xl] Warfarin [Coumadin] 3 mg PO MOTUWEFRSA 02/29/20 02/29/20 History Warfarin [Coumadin] 4.5 mg PO SUTH 02/29/20 02/29/20 History Allergies Allergy/AdvReac Type Severity Reaction Status Date / Time baclofen Allergy Unknown Verified 02/29/20 09:37 Physical Exam Vitals: Vital Signs Temp Pulse Pulse Resp BP BP Pulse Ox 02/29/20 07:00 97.9 F 68 18 122/84 96 02/29/20 03:50 98.1 F 109 H 16 124/80 100 02/29/20 03:11 97.9 F 80 16 134/75 97 02/29/20 01:00 73 19 105/85 97 02/29/20 00:00 81 20 91/59 94 L 02/28/20 23:34 79 19 98/75 93 L 02/28/20 23:00 100.4 F H 79 18 122/71 96 Intake and Output 02/29/20 02/29/20 02/29/20 06:59 14:59 22:59 Intake Total 840 250 Balance 840 250 Intake: Intake, IV Titration 540 250 Amount Cefepime 2 gm In Sodium 100 Chloride 0.9% 100 ml @ 200 mls/hr IVPB ONCE ONE Rx#:[id number] Piperacillin-Tazobactam 3 100 .375 gm In Sodium Chloride 0.9% 100 ml @ 25 mls/hr IVPB Q8H [facility] Rx#: [id number] Sodium Chloride 0.9% 1, 40 000 ml @ 20 mls/hr IV . Q24H [facility] Rx#:[id number] Vancomycin 2,250 mg In 500 Sodium Chloride 0.9% 500 ml 500 ml @ 167 mls/hr IVPB Q12H [facility] Rx#: [id number] cefTRIAXone 1 gm In 50 Sodium Chloride 0.9% 50 ml @ 100 mls/hr IVPB ONCE [facility] Rx#:[id number] Oral 300 Other: # Voids 1 1 Weight 136.078 kg PHYSICAL EXAMINATION: GENERAL: The patient is alert and oriented x3, not in any acute distress. Well developed, well nourished. HEENT: Pupils are round and equally reacting to light. EOMI. No scleral icterus. No conjunctival pallor. Normocephalic, atraumatic. No pharyngeal erythema. No thyromegaly. CARDIOVASCULAR: S1 and S2 present. No murmurs, rubs, or gallops. PULMONARY: Chest is clear to auscultation, no wheezing or crackles. ABDOMEN: Soft, nontender, nondistended, normoactive bowel sounds. No palpable organomegaly. MUSCULOSKELETAL: No joint swelling or deformity. EXTREMITIES: No cyanosis, clubbing, or pedal edema. 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 SKIN: No rashes. Results CBC & Chem 7: 02/28/20 23:52 02/28/20 23:33 Labs: Abnormal Lab Results - Last 24 Hours (Table) 02/28/20 02/28/20 02/28/20 Range/Units 22:36 23:33 23:52 WBC 14.9 H (3.8-10.6) k/uL Neutrophils # 13.0 H (1.3-7.7) k/uL Lymphocytes # 0.8 L (1.0-4.8) k/uL Sodium 130 L (137-145) mmol/L Glucose 222 H (74-99) mg/dL POC Glucose (mg/dL) 241 H (75-99) mg/dL Calcium 7.9 L (8.4-10.2) mg/dL Total Protein 6.0 L (6.3-8.2) g/dL Albumin 3.2 L (3.5-5.0) g/dL Urine Protein (Negative) Urine Glucose (UA) (Negative) 02/29/20 02/29/20 02/29/20 Range/Units 01:40 03:53 07:13 WBC (3.8-10.6) k/uL Neutrophils # (1.3-7.7) k/uL Lymphocytes # (1.0-4.8) k/uL Sodium (137-145) mmol/L Glucose (74-99) mg/dL POC Glucose (mg/dL) 155 H 171 H (75-99) mg/dL Calcium (8.4-10.2) mg/dL Total Protein (6.3-8.2) g/dL Albumin (3.5-5.0) g/dL Urine Protein Trace H (Negative) Urine Glucose (UA) 3+ H (Negative) 02/29/20 Range/Units 11:54 WBC (3.8-10.6) k/uL Neutrophils # (1.3-7.7) k/uL Lymphocytes # (1.0-4.8) k/uL Sodium (137-145) mmol/L Glucose (74-99) mg/dL POC Glucose (mg/dL) 163 H (75-99) mg/dL Calcium (8.4-10.2) mg/dL Total Protein (6.3-8.2) g/dL Albumin (3.5-5.0) g/dL Urine Protein (Negative) Urine Glucose (UA) (Negative) Thrombosis Risk Factor Assmnt - Choose All That Apply Each Factor Represents 1 point: Obesity (BMI >25) Each Risk Factor Represents 3 Points: History of DVT/PE Thrombosis Risk Factor Assessment Total Risk Factor Score: 4 Thrombosis Risk Factor Assessment Level: Moderate Risk Assessment and Plan Plan: -Cellulitis infection at the left foot ulcers: Patient was started on vancomycin patient was initially started in Unasyn which was later switched to cefepime by infectious disease patient won't cultures are pending patient had Pseudomonas aeruginosa in the past because of which are believe antibiotics were switched to cefepime. -His heart failure chronic systolic dysfunction with acute exacerbation patient had EF of around the eye due to the 20% patient will be started on IV Lasix CBC and basic metabolic profile will be monitored -COPD without any acute exacerbation patient continues to smoke -History of PE in the past patient on Coumadin dose of Coumadin will be increased as patient is orthopedic and INR patient will be started on Lovenox DVT prophylaxis dose -Hypertension next and-type 2 diabetes mellitus: Blood sugars are well controlled continued on home regimen -Hyperlipidemia -CVA/Tia in the past -History of pneumothorax in the past
[2020-02-29 16:57] LABS: Glucose,Whole Blood 157 mg/dL (75-99)
[2020-02-29] MEDS: WARFARIN 5 MG TAB PO SCH (17:18)
[2020-02-29] MEDS: VANCOMYCIN 2,250 MG in SODIUM CHLORIDE 0.9% 500 ML 500 ML IVPB SCH (17:26)
[2020-02-29] MEDS ORDERED: WARFARIN 3 MG TAB PO SCH (18:00)
[2020-02-29 20:20] LABS: Glucose,Whole Blood 197 mg/dL (75-99)
[2020-02-29] MEDS: ATORVASTATIN 80 MG TAB PO SCH (20:29)
[2020-02-29] MEDS: NORTRIPTYLINE 25 MG CAP PO SCH (20:30)
[2020-02-29] MEDS: ACETAMINOPHEN TAB 325 MG TAB PO PRN (20:38)
[2020-02-29] MEDS ORDERED: CEFEPIME 2 GM in SODIUM CHLORIDE 0.9% 100 ML IVPB ONE (21:00)
--- NOTE | 2020-03-01 00:40 | P.CONS ---
History of Present Illness - Reason for Consult Consult date: 02/29/20 Left diabetic foot infection Requesting physician: Samantha Rivera - Chief Complaint Left foot pain swelling and nonhealing wound x weeks - History of Present Illness Patient is 64-year-old male with a past medical history significant for left diabetic foot infection with wet gangrene requiring amputation of his left fourth and fifth toe back in August 2019 culture were positive for MRSA, patient has completed his antibiotic therapy, and the patient subsequently has been following at [facility] care mayking with Dr. Mcintyre patient was noticed recently worsening of his left foot wound and patient has not been feeling well for the last few days complaining of generalized weakness and not feeling well he did have a fever patient did have diabetic neuropathy and denies significant pain to the left foot but complained of some pressure-like sensation and there was some foul-smelling drainage on arrival to the patient did have a fever 100.4F patient did have elevated white count patient has been evaluated by vascular surgery and he did have bedside debridement of the left diabetic foot wound RN mention there was significant amount of purulent material which has been sent for culture, patient was started on vancomycin and Zosyn and infectious disease was consulted for further management of antibiotic therapy Review of Systems Positive point has been mentioned in the HPI rest of the systems are negative Past Medical History Past Medical History: Asthma, COPD, CVA/TIA, Diabetes Mellitus, Deep Vein Thrombosis (DVT), GERD/Reflux, Hyperlipidemia, Hypertension, Neurologic Disorder, Osteoarthritis (OA), Pneumonia, Pulmonary Embolus (PE) Additional Past Medical History / Comment(s): MIGRAINES. " ANITICOAGULANT LUPUS". PNEUMOTHRORAX. PERIPHERAL EDEMA. History of Any Multi-Drug Resistant Organisms: None Reported Past Surgical History: Adenoidectomy, Appendectomy, Tonsillectomy Additional Past Surgical History / Comment(s): HAILE FILTER . VEIN STRIPPING. STENTS IN "PELVIC AREA" NOVEMBER 2004. Past Anesthesia/Blood Transfusion Reactions: No Reported Reaction Past Psychological History: No Psychological Hx Reported Smoking Status: Former smoker Past Alcohol Use History: None Reported Past Drug Use History: None Reported - Past Family History Mother Additional Family Medical History / Comment(s): heart disease, peripheral vascular disease. Father Family Medical History: Unable to Obtain Medications and Allergies Home Medications Medication Instructions Recorded Confirmed Type Atorvastatin [Lipitor] 80 mg PO HS 01/09/14 02/29/20 History Pregabalin [Lyrica] 300 mg PO BID 01/09/14 02/29/20 History Topiramate [Topamax] 25 mg PO BID 01/09/14 02/29/20 History metFORMIN HCL [Glucophage] 500 mg PO BID 01/09/14 02/29/20 History Multivitamins, Thera [Multivitamin 1 tab PO DAILY 11/15/17 02/29/20 History (formulary)] Nortriptyline [Pamelor] 50 mg PO HS 08/15/19 02/29/20 History Omeprazole [PriLOSEC] 20 mg PO BID 08/15/19 02/29/20 History Aspirin 81 mg PO DAILY 30 Days #30 chew 08/26/19 02/29/20 Rx Furosemide [Lasix] 40 mg PO DAILY 30 Days #30 tablet 08/26/19 02/29/20 Rx Insulin NPH Human Isophane See Protocol SQ DAILY 10/30/19 02/29/20 History [NovoLIN N] Loratadine 10 mg PO DAILY 10/30/19 02/29/20 History Spiriva Respimat 1.25mcg/[place] 2 spray INHALATION RT-BID 10/31/19 02/29/20 History oxyCODONE-APAP 10-325MG [Percocet 1 tab PO Q6HR PRN 10/31/19 02/29/20 History 10-325 mg] Acetaminophen Tab [Tylenol] 650 mg PO Q6HR PRN tab 11/04/19 02/29/20 Rx Celecoxib [CeleBREX] 200 mg PO DAILY 02/29/20 02/29/20 History Metoprolol Succinate (ER) [Toprol 50 mg PO DAILY 02/29/20 02/29/20 History Xl] Warfarin [Coumadin] 3 mg PO MOTUWEFRSA 02/29/20 02/29/20 History Warfarin [Coumadin] 4.5 mg PO SUTH 02/29/20 02/29/20 History Allergies Allergy/AdvReac Type Severity Reaction Status Date / Time baclofen Allergy Unknown Verified 02/29/20 09:37 Physical Exam Vitals: Vital Signs Temp Pulse Pulse Resp BP BP Pulse Ox 02/29/20 07:00 97.9 F 68 18 122/84 96 02/29/20 03:50 98.1 F 109 H 16 124/80 100 02/29/20 03:11 97.9 F 80 16 134/75 97 02/29/20 01:00 73 19 105/85 97 02/29/20 00:00 81 20 91/59 94 L 02/28/20 23:34 79 19 98/75 93 L 02/28/20 23:00 100.4 F H 79 18 122/71 96 Intake and Output 02/28/20 02/29/20 02/29/20 22:59 06:59 14:59 Intake Total 840 Balance 840 Intake: Intake, IV Titration 540 Amount Sodium Chloride 0.9% 1, 40 000 ml @ 20 mls/hr IV . Q24H [facility] Rx#:[id number] Vancomycin 2,250 mg In 500 Sodium Chloride 0.9% 500 ml 500 ml @ 167 mls/hr IVPB Q12H [facility] Rx#: [id number] Oral 300 Other: # Voids 1 1 Weight 136.078 kg GENERAL DESCRIPTION: Middle-aged male lying in bed, no distress. No tachypnea or accessory muscle of respiration use. HEENT: Shows Pallor , no scleral icterus. Oral mucous membrane is dry. No pharyngeal erythema or thrush NECK: Trachea central, no thyromegaly. LUNGS: Unlabored breathing. Clear to auscultation anteriorly. No wheeze or crackle. HEART: S1, S2, regular rate and rhythm. No loud murmur ABDOMEN: Soft, no tenderness , guarding or rigidity, no organomegaly EXTREMITIES: Left foot is currently dressed up for surgery no drainage on the dressing SKIN: No rash, no masses palpable. NEUROLOGICAL: The patient is awake, alert, oriented x3, mood and affect normal. Results CBC & Chem 7: 02/28/20 23:52 02/28/20 23:33 Labs: Abnormal Lab Results - Last 24 Hours (Table) 02/28/20 02/28/20 02/28/20 Range/Units 22:36 23:33 23:52 WBC 14.9 H (3.8-10.6) k/uL Neutrophils # 13.0 H (1.3-7.7) k/uL Lymphocytes # 0.8 L (1.0-4.8) k/uL Sodium 130 L (137-145) mmol/L Glucose 222 H (74-99) mg/dL POC Glucose (mg/dL) 241 H (75-99) mg/dL Calcium 7.9 L (8.4-10.2) mg/dL Total Protein 6.0 L (6.3-8.2) g/dL Albumin 3.2 L (3.5-5.0) g/dL Urine Protein (Negative) Urine Glucose (UA) (Negative) 02/29/20 02/29/20 02/29/20 Range/Units 01:40 03:53 07:13 WBC (3.8-10.6) k/uL Neutrophils # (1.3-7.7) k/uL Lymphocytes # (1.0-4.8) k/uL Sodium (137-145) mmol/L Glucose (74-99) mg/dL POC Glucose (mg/dL) 155 H 171 H (75-99) mg/dL Calcium (8.4-10.2) mg/dL Total Protein (6.3-8.2) g/dL Albumin (3.5-5.0) g/dL Urine Protein Trace H (Negative) Urine Glucose (UA) 3+ H (Negative) 02/29/20 Range/Units 11:54 WBC (3.8-10.6) k/uL Neutrophils # (1.3-7.7) k/uL Lymphocytes # (1.0-4.8) k/uL Sodium (137-145) mmol/L Glucose (74-99) mg/dL POC Glucose (mg/dL) 163 H (75-99) mg/dL Calcium (8.4-10.2) mg/dL Total Protein (6.3-8.2) g/dL Albumin (3.5-5.0) g/dL Urine Protein (Negative) Urine Glucose (UA) (Negative) Assessment and Plan Assessment: 1- patient presented to hospital with sepsis in this patient who did have a fever and elevated white count source is likely left diabetic foot infection failing outpatient local wound care this patient previously has grown both Pseudomonas and MRSA from his culture and no need for both these pathogens (1) Sepsis Current Visit: Yes Status: Acute Code(s): A41.9 - SEPSIS, UNSPECIFIED ORGANISM SNOMED Code(s): 77182763 (2) Diabetic foot ulcer Current Visit: Yes Status: Acute Code(s): E11.621 - TYPE 2 DIABETES MELLITUS WITH FOOT ULCER; L97.509 - NON-PRESSURE CHRONIC ULCER OTH PRT UNSP FOOT W UNSP SEVERITY SNOMED Code(s): 016080949 (3) Left leg cellulitis Current Visit: Yes Status: Acute Code(s): L03.116 - CELLULITIS OF LEFT LOWER LIMB SNOMED Code(s): 391362641 Plan: 1- Vancomycin pharmacy to dose target trough of 15 while watching his kidney function and Vanco trough closely 2- discontinue Zosyn and add cefepime 2 g every 12hr to cover for gram-negative 3- local wound care per surgery We will follow on clinical condition and cultures to further adjust medication if needed Thank you for this consultation will follow this patient with you Time with Patient: Greater than 30
[2020-03-01] MEDS ORDERED: WARFARIN SODIUM 3 MG PO SCH (02:21)
[2020-03-01] MEDS: SODIUM CHLORIDE 0.9% 1,000 ML IV SCH (02:42)
[2020-03-01] MEDS: VANCOMYCIN 2,250 MG in SODIUM CHLORIDE 0.9% 500 ML 500 ML IVPB SCH ×2 (04:46→16:19)
[2020-03-01 07:06] LABS: HCT 38.9 % (39.0-53.0); MCH 31.2 pg (25.0-35.0); MCHC 33.4 g/dL (31.0-37.0); MCV 93.5 fL (80.0-100.0); Mean Platelet Volume 8.3; Platelet Count 170 k/uL (150-450); RBC 4.16 m/uL (4.30-5.90); WBC 9.8 k/uL (3.8-10.6)
[2020-03-01 07:15] LABS: Calcium 7.9 mg/dL (8.4-10.2); Potassium 3.8 mmol/L (3.5-5.1)
[2020-03-01 07:20] LABS: INR 1.3 (<1.2); Prothrombin Time 13.1 sec (9.0-12.0)
[2020-03-01 07:31] LABS: Glucose,Whole Blood 125 mg/dL (75-99)
[2020-03-01] MEDS: INSULIN ASPART (NovoLOG) 100 UNIT/ML VIAL SQ SCH ×4 (07:35→21:06)
[2020-03-01] MEDS: NORTRIPTYLINE 25 MG CAP PO SCH (08:03)
[2020-03-01] MEDS: ASPIRIN 81 MG PO SCH (08:03)
[2020-03-01] MEDS: PREGABALIN 100 MG CAP PO SCH ×2 (08:03→20:29)
[2020-03-01] MEDS: ENOXAPARIN 40 MG/0.4 ML SYRINGE SQ SCH (08:03)
[2020-03-01] MEDS: TOPIRAMATE 25 MG TAB PO SCH ×2 (08:04→20:30)
[2020-03-01] MEDS: METOPROLOL SUCCINATE (ER) 50 MG TAB.ER.24H PO SCH (08:04)
[2020-03-01] MEDS: MELOXICAM 7.5 MG TAB PO SCH (08:04)
[2020-03-01] MEDS: lisinopriL 20 MG TAB PO SCH (08:04)
[2020-03-01] MEDS: MULTIVITAMINS, THERA 1 EACH TAB PO SCH (08:04)
[2020-03-01] MEDS: metFORMIN 500 MG TAB PO SCH ×2 (08:04→21:07)
[2020-03-01] MEDS: AMIODARONE 200 MG TAB PO SCH ×3 (08:04→20:30)
[2020-03-01] MEDS: PANTOPRAZOLE 40 MG TABLET PO SCH ×2 (08:04→20:30)
[2020-03-01] MEDS: FUROSEMIDE 10 MG/ML 4 ML VIAL IV SCH ×2 (08:05→20:31)
[2020-03-01] MEDS: CEFEPIME 2 GM in SODIUM CHLORIDE 0.9% 100 ML IVPB SCH ×2 (08:05→20:29)
[2020-03-01] MEDS: oxyCODONE-APAP 10-325MG 1 EACH TAB PO PRN ×2 (08:10→14:49)
[2020-03-01] MEDS: IPRATROPIUM 0.5 MG/2.5 ML NEBU INHALATION SCH ×4 (08:48→20:10)
[2020-03-01] MEDS ORDERED: QUEtiapine 25 MG TAB PO PRN (11:16)
[2020-03-01] MEDS ORDERED: HALOPERIDOL LACTATE 5 MG/ML 1 ML VIAL IVP PRN (11:17)
[2020-03-01 11:20] LABS: Glucose,Whole Blood 129 mg/dL (75-99)
--- NOTE | 2020-03-01 13:14 | P.PN ---
Subjective patient was admitted secondary to sepsis from diabetic foot ulcer. Patient blood cultures are positive for staph aureus and the wound cultures are positive for gram-negative bacilli.repeat blood cultures will be obtained for today and tomorrow patient's serum sodium improved to 134 patient is also being treated for heart failure exacerbation patient is on Lasix 40 IV twice a daythe patient has moderate mental status and confusional states and delirium secondary to infection. Constitutional: Denied any fatigue denied any fever. Cardio vascular: denied any chest pain, palpitations Gastrointestinal denied any nausea vomiting Pulmonary: Denied any shortness of breath cough Neurologic denied any new focal deficits All inpatient medications were reviewed and appropriate changes in these medications as dictated in the interval history and assessment and plan. Objective - Vital Signs Vital signs: Vital Signs Temp 99.0 F 03/01/20 07:00 Pulse 101 H 03/01/20 07:00 Resp 19 03/01/20 07:00 BP 149/77 03/01/20 07:00 Pulse Ox 93 L 03/01/20 07:00 Intake & Output 02/29/20 03/01/20 03/01/20 18:59 06:59 18:59 Intake Total 250 Output Total 1000 Balance -750 Intake: Intake, IV Titration 250 Amount Cefepime 2 gm In Sodium 100 Chloride 0.9% 100 ml @ 200 mls/hr IVPB ONCE ONE Rx#:[id number] Piperacillin-Tazobactam 3 100 .375 gm In Sodium Chloride 0.9% 100 ml @ 25 mls/hr IVPB Q8H [facility] Rx#: [id number] cefTRIAXone 1 gm In 50 Sodium Chloride 0.9% 50 ml @ 100 mls/hr IVPB ONCE [facility] Rx#:[id number] Output: Urine 1000 Other: Voiding Method Urinal Urinal Diaper Diaper # Voids 1 3 - Exam PHYSICAL EXAMINATION: GENERAL: The patient is alert and oriented x3, not in any acute distress. Well developed, well nourished. HEENT: Pupils are round and equally reacting to light. EOMI. No scleral icterus. No conjunctival pallor. Normocephalic, atraumatic. No pharyngeal erythema. No thyromegaly. CARDIOVASCULAR: S1 and S2 present. No murmurs, rubs, or gallops. PULMONARY: Chest is clear to auscultation, no wheezing or crackles. ABDOMEN: Soft, nontender, nondistended, normoactive bowel sounds. No palpable organomegaly. MUSCULOSKELETAL: No joint swelling or deformity. EXTREMITIES: No cyanosis, clubbing, or pedal edema. 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 SKIN: No rashes. - Labs CBC & Chem 7: 03/01/20 06:15 03/01/20 06:15 Labs: Abnormal Lab Results - Last 24 Hours (Table) 02/29/20 02/29/20 03/01/20 Range/Units 16:53 20:14 06:15 RBC (4.30-5.90) m/uL Hct (39.0-53.0) % PT 13.1 H (9.0-12.0) sec INR 1.3 H (<1.2) Sodium (137-145) mmol/L Glucose (74-99) mg/dL POC Glucose (mg/dL) 157 H 197 H (75-99) mg/dL Calcium (8.4-10.2) mg/dL 03/01/20 03/01/20 03/01/20 Range/Units 06:15 06:15 07:21 RBC 4.16 L (4.30-5.90) m/uL Hct 38.9 L (39.0-53.0) % PT (9.0-12.0) sec INR (<1.2) Sodium 134 L (137-145) mmol/L Glucose 128 H (74-99) mg/dL POC Glucose (mg/dL) 125 H (75-99) mg/dL Calcium 7.9 L (8.4-10.2) mg/dL 03/01/20 Range/Units 11:19 RBC (4.30-5.90) m/uL Hct (39.0-53.0) % PT (9.0-12.0) sec INR (<1.2) Sodium (137-145) mmol/L Glucose (74-99) mg/dL POC Glucose (mg/dL) 129 H (75-99) mg/dL Calcium (8.4-10.2) mg/dL Microbiology - Last 24 Hours (Table) 02/28/20 23:33 Blood Culture Gram Stain - Preliminary Blood Blood Culture - Preliminary Staphylococcus aureus 02/29/20 12:00 Gram Stain - Preliminary Foot - Left Wound Culture - Preliminary Gram Neg Bacilli 02/28/20 23:33 Blood Culture - Final Blood Assessment and Plan Plan: -Cellulitis infection at the left foot ulcers: patient is septic and bacteremic at this time with the MRSA in the blood, but cultures will be up in as mentioned above and patient will be continued on vancomycin and the cefepime. Patient does have gram-negative bacilli in the wound cultures. -Toxic encephalopathy from sepsis we will use Haldol or Seroquel for agitation. -congestive heart failure chronic systolic dysfunction with acute exacerbation patient had EF of aroundadmitted to 35%patientis on IV Lasix CBC and basic m etabolic profile will be monitored -COPD without any acute exacerbation patient continues to smoke -History of PE in the past patient on Coumadin dose of Coumadin will be increased as patient is orthopedic and INR patient will be started on Lovenox DVT prophylaxis dose -Hypertension -type 2 diabetes mellitus: Blood sugars are well controlled continued on home regimen -Hyperlipidemia -CVA/Tia in the past -History of pneumothorax in the past
[2020-03-01] MEDS: WARFARIN 5 MG TAB PO SCH (16:19)
[2020-03-01 16:34] LABS: Glucose,Whole Blood 142 mg/dL (75-99)
[2020-03-01] MEDS: ATORVASTATIN 80 MG TAB PO SCH (20:30)
[2020-03-01 20:47] LABS: Glucose,Whole Blood 120 mg/dL (75-99)
--- NOTE | 2020-03-02 00:31 | PN ---
PROGRESS NOTE DATE OF SERVICE: 03/01/2020 REASON FOR FOLLOWUP: Left diabetic foot infection. INTERVAL HISTORY: The patient is currently afebrile, has been breathing comfortably. The patient denies having any chest pain or shortness of breath or cough. No nausea, no vomiting. No abdominal pain or diarrhea. PHYSICAL EXAMINATION: Blood pressure is 96/61 with the pulse of 64, temperature 98.7. He is 96% on 2 L nasal cannula. General description is a middle-aged male lying in bed in no distress. RESPIRATORY SYSTEM: Unlabored breathing, clear to auscultation anteriorly. HEART: S1, S2. Regular rate and rhythm. ABDOMEN: Soft, no tenderness. Left foot is currently dressed up. No obvious drainage on the dressing. LABS: Hemoglobin is 13, white count 9.8. BUN of 19, creatinine 1.07. Blood culture with presumptive MRSA. Local wound culture with gram-negative bacilli. DIAGNOSTIC IMPRESSION AND PLAN: Patient with left diabetic foot infection with an abscess status post drainage, now with MRSA bacteremia likely secondary to diabetic foot. We will repeat blood culture to document clearance of the bacteremia. Patient is covered with vancomycin and cefepime, to continue. at the bedside. Multiple questions were answered in layman's terms. MMODL / IJN: [id number] /
[2020-03-02] MEDS: ACETAMINOPHEN TAB 325 MG TAB PO PRN ×2 (01:28→21:39)
[2020-03-02] MEDS: VANCOMYCIN 2,250 MG in SODIUM CHLORIDE 0.9% 500 ML 500 ML IVPB SCH ×2 (04:08→17:22)
[2020-03-02] MEDS: oxyCODONE-APAP 10-325MG 1 EACH TAB PO PRN ×4 (04:08→22:46)
[2020-03-02] MEDS: SODIUM CHLORIDE 0.9% 1,000 ML IV SCH ×2 (04:09→22:47)
[2020-03-02] MEDS ORDERED: FUROSEMIDE 10 MG/ML 4 ML VIAL IV SCH (06:00)
[2020-03-02 07:11] LABS: Glucose,Whole Blood 122 mg/dL (75-99)
[2020-03-02] MEDS: INSULIN ASPART (NovoLOG) 100 UNIT/ML VIAL SQ SCH ×4 (07:17→21:37)
[2020-03-02 07:57] LABS: INR 1.5 (<1.2); Prothrombin Time 14.9 sec (9.0-12.0)
[2020-03-02] MEDS: ENOXAPARIN 40 MG/0.4 ML SYRINGE SQ SCH (08:22)
[2020-03-02] MEDS: lisinopriL 20 MG TAB PO SCH (08:22)
[2020-03-02] MEDS: TOPIRAMATE 25 MG TAB PO SCH ×2 (08:22→21:37)
[2020-03-02] MEDS: MELOXICAM 7.5 MG TAB PO SCH (08:22)
[2020-03-02] MEDS: PREGABALIN 100 MG CAP PO SCH ×2 (08:22→21:37)
[2020-03-02] MEDS: ASPIRIN 81 MG PO SCH (08:22)
[2020-03-02] MEDS: PANTOPRAZOLE 40 MG TABLET PO SCH ×2 (08:22→21:37)
[2020-03-02] MEDS: CEFEPIME 2 GM in SODIUM CHLORIDE 0.9% 100 ML IVPB SCH ×2 (08:23→22:46)
[2020-03-02] MEDS: MULTIVITAMINS, THERA 1 EACH TAB PO SCH (08:23)
[2020-03-02] MEDS: METOPROLOL SUCCINATE (ER) 50 MG TAB.ER.24H PO SCH (08:23)
[2020-03-02] MEDS: AMIODARONE 200 MG TAB PO SCH ×3 (08:23→21:37)
[2020-03-02] MEDS: metFORMIN 500 MG TAB PO SCH ×2 (08:23→21:37)
[2020-03-02] MEDS: IPRATROPIUM 0.5 MG/2.5 ML NEBU INHALATION SCH ×4 (08:24→20:02)
--- NOTE | 2020-03-02 08:26 | XR ---
EXAMINATION TYPE: XR chest 1V DATE OF EXAM: 03/02/2020 CLINICAL HISTORY: CHF TECHNIQUE: Portable upright view of the chest obtained COMPARISON: 02/28/2020 chest radiograph FINDINGS: The patient is rotated to the right. Pericolonic silhouette not significantly changed give n differences in technique. There is decreased pulmonary vascular congestion and pulmonary edema vers us 02/28/2020. Chronic interstitial coarsening redemonstrated. No pneumothorax. No pleural effusion. N o displaced osseous fracture. IMPRESSION: Significantly decreased pulmonary vascular congestion and pulmonary edema versus 0 comparison.
[2020-03-02 11:15] LABS: Glucose,Whole Blood 218 mg/dL (75-99)
[2020-03-02] MEDS ORDERED: ANIDULAFUNGIN 200 MG in SODIUM CHLORIDE 0.9% 200 ML IVPB ONE (14:00)
--- NOTE | 2020-03-02 14:48 | P.PN ---
Subjective patient was admitted secondary to sepsis from diabetic foot ulcer. Patient blood cultures are positive for staph aureus and the wound cultures are positive for gram-negative bacilli.repeat blood cultures will be obtained for today and tomorrow patient's serum sodium improved to 134 patient is also being treated for heart failure exacerbation patient is on Lasix 40 IV twice a daythe patient has moderate mental status and confusional states and delirium secondary to infection. 03/02/2020 Past for surgery valid the patient they believe patient may need an amputation with patient will undergo angiogram because of her possible amputation on hold off on Coumadin. Patient will be continued on Lovenox. Patient blood pressures borderline patient respiratory status improved chest x-ray showed improvement in pulmonary edema alcohol changed Lasix to oral to cut down the lisinopril dose. Constitutional: Denied any fatigue denied any fever. Cardio vascular: denied any chest pain, palpitations Gastrointestinal denied any nausea vomiting Pulmonary: Denied any shortness of breath cough Neurologic denied any new focal deficits All inpatient medications were reviewed and appropriate changes in these medications as dictated in the interval history and assessment and plan. Objective - Vital Signs Vital signs: Vital Signs Temp 98.1 F 03/02/20 14:44 Pulse 62 03/02/20 14:44 Resp 18 03/02/20 14:44 BP 101/62 03/02/20 14:44 Pulse Ox 96 03/02/20 14:44 Intake & Output 03/01/20 03/02/20 03/02/20 18:59 06:59 18:59 Intake Total 1940 600 240 Balance 1940 600 240 Intake: Intake, IV Titration 860 240 Amount Cefepime 2 gm In Sodium 100 100 Chloride 0.9% 100 ml @ 25 mls/hr IVPB Q12HR [facility] Rx #:[id number] Piperacillin-Tazobactam 3 100 .375 gm In Sodium Chloride 0.9% 100 ml @ 25 mls/hr IVPB Q8H [facility] Rx#: [id number] Sodium Chloride 0.9% 1, 160 140 000 ml @ 20 mls/hr IV . Q24H [facility] Rx#:[id number] Vancomycin 2,250 mg In 500 Sodium Chloride 0.9% 500 ml 500 ml @ 167 mls/hr IVPB Q12H [facility] Rx#: [id number] Oral 1080 600 Other: Voiding Method Urinal Urinal Urinal Diaper Diaper Diaper # Voids 4 3 - Exam PHYSICAL EXAMINATION: GENERAL: The patient is alert and oriented x3, not in any acute distress. Well developed, well nourished. HEENT: Pupils are round and equally reacting to light. EOMI. No scleral icterus. No conjunctival pallor. Normocephalic, atraumatic. No pharyngeal erythema. No thyromegaly. CARDIOVASCULAR: S1 and S2 present. No murmurs, rubs, or gallops. PULMONARY: Chest is clear to auscultation, no wheezing or crackles. ABDOMEN: Soft, nontender, nondistended, normoactive bowel sounds. No palpable organomegaly. MUSCULOSKELETAL: No joint swelling or deformity. EXTREMITIES: No cyanosis, clubbing, or pedal edema. 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 SKIN: No rashes. - Labs CBC & Chem 7: 03/01/20 06:15 03/02/20 06:53 Labs: Abnormal Lab Results - Last 24 Hours (Table) 03/01/20 03/01/20 03/02/20 Range/Units 16:33 20:43 06:53 PT 14.9 H (9.0-12.0) sec INR 1.5 H (<1.2) POC Glucose (mg/dL) 142 H 120 H (75-99) mg/dL 03/02/20 03/02/20 Range/Units 07:10 11:14 PT (9.0-12.0) sec INR (<1.2) POC Glucose (mg/dL) 122 H 218 H (75-99) mg/dL Microbiology - Last 24 Hours (Table) 02/29/20 12:00 Gram Stain - Preliminary Foot - Left Wound Culture - Preliminary Gram Neg Bacilli Presumptive MRSA 02/28/20 23:33 Blood Culture Gram Stain - Final Blood Blood Culture - Final Methicillin resist S. aureus Assessment and Plan Plan: -Cellulitis infection at the left foot ulcers: patient is septic and bacteremic at this time with the MRSA in the blood, but cultures will be up in as mentioned above and patient will be continued on vancomycin and the cefepime. Patient does have gram-negative bacilli in the wound cultures. Blood cultures are negative and patient continues to be the same antibodies that is vancomycin and cefepime -Toxic encephalopathy from sepsis we will use Haldol or Seroquel for agitation. -congestive heart failure chronic systolic dysfunction with acute exacerbation patient had EF of aroundadmitted to 35%patientis patient is presently euvolemic will be switched to oral Lasix -COPD without any acute exacerbation patient continues to smoke -History of PE in , patient will be continued on the Lovenox DVT prophylaxis dose, Coumadin will be held for possible amputation procedure -Hypertension -type 2 diabetes mellitus: Blood sugars are well controlled continued on home regimen -Hyperlipidemia -CVA/Tia in the past -History of pneumothorax in the past
[2020-03-02] MEDS ORDERED: VANCOMYCIN TROUGH DUE 1 EACH MISC MISCELLANE ONE (16:00)
[2020-03-02 16:31] LABS: Glucose,Whole Blood 205 mg/dL (75-99)
[2020-03-02] MEDS: FUROSEMIDE 40 MG TAB PO SCH (17:08)
[2020-03-02] MEDS: VANCOMYCIN 2,000 MG in SODIUM CHLORIDE 0.9% 500 ML 500 ML IVPB SCH (19:12)
[2020-03-02 21:07] LABS: Glucose,Whole Blood 209 mg/dL (75-99)
[2020-03-02] MEDS: NORTRIPTYLINE 25 MG CAP PO SCH (21:37)
[2020-03-02] MEDS: ATORVASTATIN 80 MG TAB PO SCH (21:37)
--- NOTE | 2020-03-02 22:29 | PN ---
PROGRESS NOTE DATE OF SERVICE: 03/02/2020 REASON FOR FOLLOWUP: Left diabetic foot wound with MRSA bacteremia. INTERVAL HISTORY: The patient is currently afebrile. The patient is breathing comfortably. The patient denies having any chest pain or shortness of breath or cough. No nausea or vomiting. No abdominal pain. Some discomfort to the left foot, but no worsening. PHYSICAL EXAMINATION: His blood pressure 109/67 with a pulse of 74, temperature 99.3. He is 92% on 2 L nasal cannula. General description is a middle-aged male lying in bed in no distress. RESPIRATORY SYSTEM: Unlabored breathing. Clear to auscultation anteriorly. HEART: S1, S2. Regular rate and rhythm. ABDOMEN: Soft. No tenderness. Left foot wound with some purulent drainage. Still has some swelling. Minimal redness. LABS: Blood culture repeat is so far negative. Wound culture with Gram-negative and presumptive MRSA. DIAGNOSTIC IMPRESSION AND PLAN: Patient with left diabetic foot infection with methicillin-resistant Staphylococcus aeruginosa bacteremia, status post drainage. He may need further surgical debridement or possible amputation. He is currently covered with vancomycin and cefepime; to continue. Vancomycin dose to be monitored closely, as he did have elevated trough. Continue with supportive care. MMODL / IJN: [id number] /
[2020-03-03 02:14] LABS: Glucose,Whole Blood 128 mg/dL (75-99)
[2020-03-03] MEDS: VANCOMYCIN 2,000 MG in SODIUM CHLORIDE 0.9% 500 ML 500 ML IVPB SCH ×3 (04:09→21:19)
[2020-03-03 07:27] LABS: Glucose,Whole Blood 113 mg/dL (75-99)
[2020-03-03] MEDS: INSULIN ASPART (NovoLOG) 100 UNIT/ML VIAL SQ SCH ×4 (07:41→20:39)
[2020-03-03] MEDS: IPRATROPIUM 0.5 MG/2.5 ML NEBU INHALATION SCH ×4 (08:18→20:18)
[2020-03-03] MEDS: MULTIVITAMINS, THERA 1 EACH TAB PO SCH (08:40)
[2020-03-03] MEDS: MELOXICAM 7.5 MG TAB PO SCH (08:40)
[2020-03-03] MEDS: PREGABALIN 100 MG CAP PO SCH ×2 (08:40→20:40)
[2020-03-03] MEDS: METOPROLOL SUCCINATE (ER) 50 MG TAB.ER.24H PO SCH (08:40)
[2020-03-03] MEDS: ASPIRIN 81 MG PO SCH (08:40)
[2020-03-03] MEDS: metFORMIN 500 MG TAB PO SCH ×2 (08:41→20:40)
[2020-03-03] MEDS: FUROSEMIDE 40 MG TAB PO SCH ×2 (08:41→15:24)
[2020-03-03] MEDS: TOPIRAMATE 25 MG TAB PO SCH ×2 (08:41→20:40)
[2020-03-03] MEDS: AMIODARONE 200 MG TAB PO SCH ×3 (08:41→20:39)
[2020-03-03] MEDS: lisinopriL 10 MG TAB PO SCH (08:41)
[2020-03-03] MEDS: CEFEPIME 2 GM in SODIUM CHLORIDE 0.9% 100 ML IVPB SCH ×2 (08:41→20:39)
[2020-03-03] MEDS: PANTOPRAZOLE 40 MG TABLET PO SCH ×2 (08:41→20:40)
[2020-03-03 08:43] LABS: HCT 37.7 % (39.0-53.0); HGB 12.3 gm/dL (13.0-17.5); MCH 30.7 pg (25.0-35.0); MCHC 32.5 g/dL (31.0-37.0); MCV 94.3 fL (80.0-100.0); Mean Platelet Volume 7.8; Platelet Count 175 k/uL (150-450); RDW 14.8 % (11.5-15.5); WBC 6.8 k/uL (3.8-10.6)
[2020-03-03 08:50] LABS: INR 1.7 (<1.2); Prothrombin Time 16.4 sec (9.0-12.0)
[2020-03-03 08:56] LABS: Calcium 7.6 mg/dL (8.4-10.2); Potassium 3.5 mmol/L (3.5-5.1)
[2020-03-03] MEDS: ENOXAPARIN 40 MG/0.4 ML SYRINGE SQ SCH (10:52)
[2020-03-03 11:51] LABS: Glucose,Whole Blood 162 mg/dL (75-99)
[2020-03-03] MEDS ORDERED: ANIDULAFUNGIN 100 MG in SODIUM CHLORIDE 0.9% 100 ML IVPB SCH (14:00)
--- NOTE | 2020-03-03 14:41 | P.PN ---
Subjective patient was admitted secondary to sepsis from diabetic foot ulcer. Patient blood cultures are positive for staph aureus and the wound cultures are positive for gram-negative bacilli.repeat blood cultures will be obtained for today and tomorrow patient's serum sodium improved to 134 patient is also being treated for heart failure exacerbation patient is on Lasix 40 IV twice a daythe patient has moderate mental status and confusional states and delirium secondary to infection. 03/02/2020 Past for surgery valid the patient they believe patient may need an amputation with patient will undergo angiogram because of her possible amputation on hold off on Coumadin. Patient will be continued on Lovenox. Patient blood pressures borderline patient respiratory status improved chest x-ray showed improvement in pulmonary edema alcohol changed Lasix to oral to cut down the lisinopril dose. 03/03/2020 Patient is undergoing angiogram today depending on that decision regarding amputation will be made tomorrow. Coumadin is on hold and vascular surgery recommending holding Lovenox as well. Constitutional: Denied any fatigue denied any fever. Cardio vascular: denied any chest pain, palpitations Gastrointestinal denied any nausea vomiting Pulmonary: Denied any shortness of breath cough Neurologic denied any new focal deficits All inpatient medications were reviewed and appropriate changes in these medications as dictated in the interval history and assessment and plan. Objective - Vital Signs Vital signs: Vital Signs Temp 98.4 F 03/03/20 07:00 Pulse 56 L 03/03/20 07:00 Resp 20 03/03/20 07:00 BP 128/83 03/03/20 07:00 Pulse Ox 98 03/03/20 07:00 Intake & Output 03/02/20 03/03/20 03/03/20 18:59 06:59 18:59 Intake Total 240 60 Output Total 625 500 Balance -385 -440 Intake: Intake, IV Titration 240 60 Amount Cefepime 2 gm In Sodium 100 Chloride 0.9% 100 ml @ 25 mls/hr IVPB Q12HR [facility] Rx #:[id number] Sodium Chloride 0.9% 1, 140 60 000 ml @ 20 mls/hr IV . Q24H [facility] Rx#:[id number] Output: Urine 625 500 Other: Voiding Method Urinal Urinal Diaper Diaper # Voids 3 - Exam PHYSICAL EXAMINATION: GENERAL: The patient is alert and oriented x3, not in any acute distress. Well developed, well nourished. HEENT: Pupils are round and equally reacting to light. EOMI. No scleral icterus. No conjunctival pallor. Normocephalic, atraumatic. No pharyngeal erythema. No thyromegaly. CARDIOVASCULAR: S1 and S2 present. No murmurs, rubs, or gallops. PULMONARY: Chest is clear to auscultation, no wheezing or crackles. ABDOMEN: Soft, nontender, nondistended, normoactive bowel sounds. No palpable organomegaly. MUSCULOSKELETAL: No joint swelling or deformity. EXTREMITIES: No cyanosis, clubbing, or pedal edema. 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 SKIN: No rashes. - Labs CBC & Chem 7: 03/03/20 08:07 03/03/20 08:07 Labs: Abnormal Lab Results - Last 24 Hours (Table) 03/02/20 03/02/20 03/03/20 Range/Units 16:30 21:06 01:57 RBC (4.30-5.90) m/uL Hgb (13.0-17.5) gm/dL Hct (39.0-53.0) % PT (9.0-12.0) sec INR (<1.2) Sodium (137-145) mmol/L Glucose (74-99) mg/dL POC Glucose (mg/dL) 205 H 209 H 128 H (75-99) mg/dL Calcium (8.4-10.2) mg/dL 03/03/20 03/03/20 03/03/20 Range/Units 07:09 08:07 08:07 RBC (4.30-5.90) m/uL Hgb (13.0-17.5) gm/dL Hct (39.0-53.0) % PT 16.4 H (9.0-12.0) sec INR 1.7 H (<1.2) Sodium 134 L (137-145) mmol/L Glucose 151 H (74-99) mg/dL POC Glucose (mg/dL) 113 H (75-99) mg/dL Calcium 7.6 L (8.4-10.2) mg/dL 03/03/20 03/03/20 Range/Units 08:07 11:47 RBC 4.00 L (4.30-5.90) m/uL Hgb 12.3 L (13.0-17.5) gm/dL Hct 37.7 L (39.0-53.0) % PT (9.0-12.0) sec INR (<1.2) Sodium (137-145) mmol/L Glucose (74-99) mg/dL POC Glucose (mg/dL) 162 H (75-99) mg/dL Calcium (8.4-10.2) mg/dL Microbiology - Last 24 Hours (Table) 02/29/20 12:00 Gram Stain - Final Foot - Left Wound Culture - Final Enterobacter cloacae Klebsiella pneumoniae Methicillin resist S. aureus 03/02/20 06:53 Blood Culture - Preliminary Blood No Growth after 24 hours 03/01/20 13:54 Blood Culture - Preliminary Blood No Growth after 24 hours Assessment and Plan Plan: -Cellulitis infection at the left foot ulcers: patient is septic and bacteremic at this time with the MRSA in the blood, but cultures will be up in as mentioned above and patient will be continued on vancomycin and the cefepime. Patient does have Enterobacter klebsiella pneumoniae and MRSA in the wound cultures. Repeat blood cultures are negative, patient had MRSA in the blood. Patient continues to be on Vanco and cefepime. Patient is undergoing angiogram today -Toxic encephalopathy from sepsis we will use Haldol or Seroquel for agitation. -congestive heart failure chronic systolic dysfunction with acute exacerbation patient had EF of aroundadmitted to 35%patientis patient is presently euvolemic, on oral Lasix -COPD without any acute exacerbation patient continues to smoke -History of PE in , patient will be continued on the Lovenox DVT prophylaxis dose, Coumadin will be held for possible amputation procedure -Hypertension -type 2 diabetes mellitus: Blood sugars are well controlled continued on home regimen -Hyperlipidemia -CVA/Tia in the past -History of pneumothorax in the past
[2020-03-03] MEDS ORDERED: SODIUM CHLORIDE 0.9% 1,000 ML IV ONE (15:35)
[2020-03-03] MEDS ORDERED: MIDAZOLAM 2 MG/2 ML VIAL IV ONE (15:39)
[2020-03-03] MEDS ORDERED: LIDOCAINE 1% INJ 10MG/ML (20 ML MDV) SQ ONE (15:39)
--- NOTE | 2020-03-03 15:51 | PN ---
PROGRESS NOTE DATE OF SERVICE: 03/03/2020 REASON FOR FOLLOWUP: Left diabetic foot infection with MRSA bacteremia. INTERVAL HISTORY: The patient is currently afebrile, patient is breathing comfortably. Patient denies having any chest pain. No shortness of breath, no cough. Still complains of pain to the left foot, but no worsening. Scheduled for angiogram today. PHYSICAL EXAMINATION: Blood pressure 128/83 with a pulse of 53, temperature 98.4, he is 98% on 2 L. General description is a middle-aged male, lying in bed in no distress. RESPIRATORY SYSTEM: Unlabored breathing, clear to auscultation anteriorly. HEART: S1, S2. Regular rate and rhythm. ABDOMEN: Soft, no tenderness. Left foot is dressed up, no obvious drainage on the dressing. LABS: Hemoglobin is 12.8, white count 6.8. BUN of 19, creatinine 1.23. Blood culture repeat is negative, local culture with Enterobacter and Klebsiella MRSA. DIAGNOSTIC IMPRESSION AND PLAN: Patient with left diabetic foot infection, possible deep and possible underlying osteomyelitis. Culture now showing Enterobacter and Klebsiella in addition to MRSA with MRSA bacteremia, follow up pneumonia. Blood culture negative. The patient is covered with cefepime and vancomycin to finish with angiogram and possible surgical intervention. Continue supportive care. MMODL / IJN: [id number] /
[2020-03-03] MEDS ORDERED: IOPAMIDOL-250 100ML BTL INTRAARTER ONE (16:07)
--- NOTE | 2020-03-03 16:53 | OP ---
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 PROCEDURE: Aortogram with runoff. This patient was brought to the operating room. Right and left groins were prepped and draped in a sterile manner. Ultrasound-guided micropuncture was introduced into the right common femoral artery. Micropuncture guidewire was passed. Then we passed a 4- Serbian dilator on the top of the guidewire. Then we passed a regular guidewire and then a 5-Serbian sheath was placed on the top of the guidewire. Then we passed a regular guidewire, which was parked at the renal level, and a pigtail catheter was advanced on top of the guidewire which was hooked to the power injector. Aortogram was performed. Aorta was found to be patent. Renal artery was patent. Right and left iliac arteries were found to be patent. Right and left common femoral arteries were visualized. Profundae were visualized bilaterally. Superficial femoral arteries were visualized bilaterally and popliteal arteries were visualized bilaterally below the knee. The patient has bilateral 3-vessel runoff on the left foot. Anterior tibial, posterior tibial were visualized at the dorsal aspect of the foot. The digital vessels are not visualized. Catheters and sheaths were removed. Pressure was applied. Patient tolerated the procedure well. MMODL / IJN: [id number] /
[2020-03-03 17:45] LABS: Glucose,Whole Blood 114 mg/dL (75-99)
[2020-03-03] MEDS: oxyCODONE-APAP 10-325MG 1 EACH TAB PO PRN (18:11)
[2020-03-03 20:15] LABS: Glucose,Whole Blood 160 mg/dL (75-99)
[2020-03-03] MEDS: ATORVASTATIN 80 MG TAB PO SCH (20:40)
[2020-03-03] MEDS: NORTRIPTYLINE 25 MG CAP PO SCH (21:26)
[2020-03-04] MEDS: oxyCODONE-APAP 10-325MG 1 EACH TAB PO PRN ×4 (04:32→22:38)
[2020-03-04] MEDS: SODIUM CHLORIDE 0.9% 1,000 ML IV SCH (06:32)
[2020-03-04 06:40] LABS: Glucose,Whole Blood 146 mg/dL (75-99)
[2020-03-04] MEDS: INSULIN ASPART (NovoLOG) 100 UNIT/ML VIAL SQ SCH ×4 (06:42→21:17)
[2020-03-04] MEDS ORDERED: VANCOMYCIN TROUGH DUE 1 EACH MISC MISCELLANE ONE (07:00)
[2020-03-04 07:10] LABS: INR 1.7 (<1.2); Prothrombin Time 16.3 sec (9.0-12.0)
[2020-03-04] MEDS: IPRATROPIUM 0.5 MG/2.5 ML NEBU INHALATION SCH ×4 (08:00→19:13)
[2020-03-04] MEDS: CEFEPIME 2 GM in SODIUM CHLORIDE 0.9% 100 ML IVPB SCH ×2 (09:33→20:03)
[2020-03-04] MEDS: VANCOMYCIN 2,000 MG in SODIUM CHLORIDE 0.9% 500 ML 500 ML IVPB SCH (09:33)
[2020-03-04] MEDS: METOPROLOL SUCCINATE (ER) 50 MG TAB.ER.24H PO SCH (09:34)
[2020-03-04] MEDS: AMIODARONE 200 MG TAB PO SCH ×3 (09:34→20:12)
[2020-03-04] MEDS: MELOXICAM 7.5 MG TAB PO SCH (09:34)
[2020-03-04] MEDS: ENOXAPARIN 40 MG/0.4 ML SYRINGE SQ SCH (09:35)
[2020-03-04] MEDS: PREGABALIN 100 MG CAP PO SCH ×2 (09:35→20:12)
[2020-03-04] MEDS: ASPIRIN 81 MG PO SCH (09:35)
[2020-03-04] MEDS: lisinopriL 10 MG TAB PO SCH (09:35)
[2020-03-04] MEDS: PANTOPRAZOLE 40 MG TABLET PO SCH ×2 (09:35→20:12)
[2020-03-04] MEDS: MULTIVITAMINS, THERA 1 EACH TAB PO SCH (09:35)
[2020-03-04] MEDS: TOPIRAMATE 25 MG TAB PO SCH ×2 (09:35→20:12)
[2020-03-04] MEDS: FUROSEMIDE 40 MG TAB PO SCH ×2 (09:35→16:41)
[2020-03-04 09:39] LABS: HCT 40.5 % (39.0-53.0); HGB 13.2 gm/dL (13.0-17.5); MCH 30.9 pg (25.0-35.0); MCHC 32.6 g/dL (31.0-37.0); MCV 94.9 fL (80.0-100.0); Mean Platelet Volume 8.5; Platelet Count 214 k/uL (150-450); RBC 4.27 m/uL (4.30-5.90); RDW 14.7 % (11.5-15.5); WBC 8.1 k/uL (3.8-10.6)
[2020-03-04] MEDS: metFORMIN 500 MG TAB PO SCH ×2 (09:45→20:12)
[2020-03-04 09:53] LABS: African American GFR (CKD) >90 (>60 ml/min/1.73 sqM); Anion Gap 6 mmol/L; Blood Urea Nitrogen 19 mg/dL (9-20); Carbon Dioxide 27 mmol/L (22-30); Chloride 102 mmol/L (98-107); Glucose 160 mg/dL (74-99); Non-African American GFR(CKD) 88 (>60 ml/min/1.73 sqM); Potassium 4.3 mmol/L (3.5-5.1); Sodium 135 mmol/L (137-145)
[2020-03-04 12:34] LABS: Glucose,Whole Blood 233 mg/dL (75-99)
--- NOTE | 2020-03-04 12:45 | P.CRDCN ---
History of Present Illness Consult date: 03/04/20 History of present illness: CHIEF COMPLAINT: Surgical clearance HISTORY OF PRESENT ILLNESS: 64-year-old male with a history of diabetes mellitus, DVT, hypertension, and hyperlipidemia who is admitted to the hospital secondary to cellulitis of his left foot. Patient has been evaluated by vascular surgery and is scheduled for an amputation of his left foot later this week. Cardiology was consulted for surgical clearance. Patient follows in the office with Dr. Heaton. Patient examined this morning at the bedside. Patient denies chest pain. He denies shortness of breath. DIAGNOSTICS: EKG reveals sinus rhythm Chest xray significantly decreased pulmonary vascular congestion and pulmonary edema compared to chest x-ray completed on 02/28/2020. Laboratory data: WBC 8.1. Hemoglobin 13.2. The contour and 14. INR 1.7. Sodium 135. Potassium 4.3. BUN 19. Creatinine 0.93. Current home cardiac medications include Toprol-XL 50mg daily, Coumadin, Lasix 40 g daily, aspirin 81 mg daily Patient had an echocardiogram completed in October 2019 revealing ejection fraction of 45-50% Lexiscan stress test completed in November 2019 was negative for ischemia REVIEW OF SYSTEMS: CONSTITUTIONAL: Denies fever or chills. HEENT: Denies blurred vision, vision changes, or eye pain. Denies hemoptysis CARDIOVASCULAR: Denies chest pain, orthopnea, PND or palpitations RESPIRATORY: No shortness of breath. GASTROINTESTINAL: Denies abdominal pain. Denies nausea or vomiting. HEMATOLOGIC: Denies bleeding disorders. GENITOURINARY: Denies any blood in urine. SKIN: Denies pruitis. Denies rash. PHYSICAL EXAM: VITAL SIGNS: Reviewed. GENERAL: Well-developed in no acute distress. HEENT: Head is normocephalic. Pupils are equal, round. Sclerae anicteric. Mucous membranes of the mouth are moist. Neck supple. No JVD or thyromegaly LUNGS: Respirations even and unlabored. Lungs essentially clear to auscultation bilaterally. HEART: Regular rate and rhythm. S1 and S2 heard. ABDOMEN: Soft. Nontender. EXTREMITIES: Normal range of motion. No clubbing or cyanosis. Left lower extremity with Kerlix dressing noted. NEUROLOGIC: Awake and alert. Oriented x 3. ASSESSMENT: 1. Chronic wound of left foot, scheduled for amputation this week 2. Hypertension 3. Hyperlipidemia 4. History of DVT/PE 5. Diabetes mellitus PLAN: -Continue current cardiac medications -Continue to hold Coumadin for anticipated surgical intervention of left foot -Repeat echocardiogram -Pending echo results, patient is cleared for surgery from a cardiac standpoint. He is high risk for surgery but there are no absolute contraindications to proceed with amputation. Nurse practitioner note has been reviewed by physician. Signing provider agrees with the documented findings, assessment, and plan of care. Past Medical History Past Medical History: Asthma, COPD, CVA/TIA, Diabetes Mellitus, Deep Vein Thrombosis (DVT), GERD/Reflux, Hyperlipidemia, Hypertension, Neurologic Disorder, Osteoarthritis (OA), Pneumonia, Pulmonary Embolus (PE) Additional Past Medical History / Comment(s): MIGRAINES. " ANITICOAGULANT LUPUS". PNEUMOTHRORAX. PERIPHERAL EDEMA. History of Any Multi-Drug Resistant Organisms: MRSA Date of last positivie culture/infection: 02/28/20 MDRO Source:: MRSA FOOT Past Surgical History: Adenoidectomy, Appendectomy, Tonsillectomy Additional Past Surgical History / Comment(s): HAILE FILTER . VEIN STRIPPING. STENTS IN "PELVIC AREA" NOVEMBER 2004. Past Anesthesia/Blood Transfusion Reactions: No Reported Reaction Past Psychological History: No Psychological Hx Reported Smoking Status: Former smoker Past Alcohol Use History: None Reported Past Drug Use History: None Reported - Past Family History Mother Additional Family Medical History / Comment(s): heart disease, peripheral vascular disease. Father Family Medical History: Unable to Obtain Medications and Allergies Home Medications Medication Instructions Recorded Confirmed Type Atorvastatin [Lipitor] 80 mg PO HS 01/09/14 02/29/20 History Pregabalin [Lyrica] 300 mg PO BID 01/09/14 02/29/20 History Topiramate [Topamax] 25 mg PO BID 01/09/14 02/29/20 History metFORMIN HCL [Glucophage] 500 mg PO BID 01/09/14 02/29/20 History Multivitamins, Thera [Multivitamin 1 tab PO DAILY 11/15/17 02/29/20 History (formulary)] Nortriptyline [Pamelor] 50 mg PO HS 08/15/19 02/29/20 History Omeprazole [PriLOSEC] 20 mg PO BID 08/15/19 02/29/20 History Aspirin 81 mg PO DAILY 30 Days #30 chew 08/26/19 02/29/20 Rx Furosemide [Lasix] 40 mg PO DAILY 30 Days #30 tablet 08/26/19 02/29/20 Rx Insulin NPH Human Isophane See Protocol SQ DAILY 10/30/19 02/29/20 History [NovoLIN N] Loratadine 10 mg PO DAILY 10/30/19 02/29/20 History Spiriva Respimat 1.25mcg/[place] 2 spray INHALATION RT-BID 10/31/19 02/29/20 History oxyCODONE-APAP 10-325MG [Percocet 1 tab PO Q6HR PRN 10/31/19 02/29/20 History 10-325 mg] Acetaminophen Tab [Tylenol] 650 mg PO Q6HR PRN tab 11/04/19 02/29/20 Rx Celecoxib [CeleBREX] 200 mg PO DAILY 02/29/20 02/29/20 History Metoprolol Succinate (ER) [Toprol 50 mg PO DAILY 02/29/20 02/29/20 History Xl] Warfarin [Coumadin] 3 mg PO [id number] 02/29/20 02/29/20 History Warfarin [Coumadin] 4.5 mg PO SUTH 02/29/20 02/29/20 History Allergies Allergy/AdvReac Type Severity Reaction Status Date / Time baclofen Allergy Unknown Verified 02/29/20 09:37 Physical Exam Vitals: Vital Signs Temp Pulse Pulse Resp BP Pulse Ox 03/04/20 11:59 97.6 F 72 18 146/80 03/04/20 08:00 97.6 F 73 20 164/75 94 L 03/04/20 04:00 98.6 F 67 18 127/71 96 03/04/20 00:00 97.6 F 68 68 18 115/47 97 03/03/20 22:02 98 F 63 63 18 131/78 97 03/03/20 20:17 95 03/03/20 18:00 16 138/78 03/03/20 17:00 16 116/72 03/03/20 15:00 97.8 F 56 L 20 118/70 98 Intake and Output 03/03/20 03/04/20 03/04/20 22:59 06:59 14:59 Intake Total 100 480 Output Total 1460 500 Balance -1360 -500 480 Intake: IV 100 Oral 480 Output: Urine 1460 500 Other: # Bowel Movements 1 Weight 140 kg Results 03/04/20 06:16 03/04/20 06:46 Coagulation 03/04/20 Range/Units 06:46 PT 16.3 H (9.0-12.0) sec CBC 03/04/20 Range/Units 06:16 WBC 8.1 (3.8-10.6) k/uL RBC 4.27 L (4.30-5.90) m/uL Hgb 13.2 (13.0-17.5) gm/dL Hct 40.5 (39.0-53.0) % Plt Count 214 (150-450) k/uL Comprehensive Metabolic Panel 03/04/20 Range/Units 06:46 Sodium 135 L (137-145) mmol/L Potassium 4.3 (3.5-5.1) mmol/L Chloride 102 (98-107) mmol/L Carbon Dioxide 27 (22-30) mmol/L BUN 19 (9-20) mg/dL Creatinine 0.93 (0.66-1.25) mg/dL Glucose 160 H (74-99) mg/dL Calcium 8.0 L (8.4-10.2) mg/dL Current Medications Generic Name Dose Route Start Last Admin Trade Name Freq PRN Reason Stop Dose Admin Acetaminophen 650 mg 02/29/20 02:17 03/02/20 21:39 Tylenol Tab PO 650 mg Q6HR PRN Administration Mild Pain or Fever > 100.5 Albuterol Sulfate 2.5 mg 02/29/20 02:21 Ventolin Nebulized INHALATION RT-DAILY PRN Shortness Of Breath Amiodarone HCl 200 mg 02/29/20 09:00 03/04/20 09:34 Cordarone PO 200 mg TID HELENE Administration Aspirin 81 mg 02/29/20 09:00 03/04/20 09:35 Aspirin PO 81 mg DAILY HELENE Administration Atorvastatin Calcium 80 mg 02/29/20 21:00 03/03/20 20:40 Lipitor PO 80 mg HS HELENE Administration Docusate Sodium 100 mg 02/29/20 02:21 Colace PO DAILY PRN Constipation Enoxaparin Sodium 40 mg 02/29/20 12:00 03/04/20 09:35 Lovenox SQ 40 mg DAILY HELENE Administration Furosemide 40 mg 03/02/20 16:00 03/04/20 09:35 Lasix PO 40 mg BID@0900,1600 HELENE Administration Haloperidol Lactate 0.5 mg 03/01/20 11:17 Haldol IVP Q8HR PRN Agitation or Acute Psychosis Sodium Chloride 1,000 mls @ 20 mls/hr 02/29/20 02:30 03/04/20 06:32 Saline 0.9% IV 20 mls/hr .Q24H HELENE Administration Cefepime HCl 2 gm/ Sodium 100 mls @ 25 mls/hr 03/01/20 09:00 03/04/20 09:33 Chloride IVPB 25 mls/hr Q12HR HELENE Administration Vancomycin HCl 1,750 mg/ 500 mls @ 167 mls/hr 03/04/20 21:00 Sodium Chloride IVPB Q12HR [facility] Insulin Aspart 0 unit 02/29/20 07:30 03/04/20 06:42 Novolog SQ 1 unit ACHS HELENE Administration Protocol Ipratropium [place] 0.5 mg 02/29/20 08:00 03/04/20 11:38 Atrovent Nebulized INHALATION Not Given RT-QID [facility] Lisinopril 10 mg 03/03/20 09:00 03/04/20 09:35 Zestril PO 10 mg DAILY HELENE Administration Meloxicam 7.5 mg 03/01/20 09:00 03/04/20 09:34 Mobic PO 7.5 mg DAILY HELENE Administration Metformin HCl 500 mg 02/29/20 09:00 03/04/20 09:45 Glucophage PO Not Given BID [facility] Metoprolol Succinate 50 mg 03/01/20 09:00 03/04/20 09:34 Toprol Xl PO 50 mg DAILY HELENE Administration Multivitamins 1 each 02/29/20 09:00 03/04/20 09:35 Theragran PO 1 each DAILY HELENE Administration Naloxone HCl 0.2 mg 02/29/20 02:17 Narcan IV Q2M PRN Opioid Reversal Nortriptyline HCl 50 mg 02/29/20 21:00 03/03/20 21:26 Pamelor PO 50 mg HS HELENE Administration Oxycodone/Acetaminophen 1 each 02/29/20 02:21 03/04/20 11:12 Percocet 10-325 PO 1 each Q6HR PRN Administration Pain Pantoprazole Sodium 40 mg 02/29/20 09:00 03/04/20 09:35 Protonix PO 40 mg BID HELENE Administration Pregabalin 300 mg 02/29/20 09:00 03/04/20 09:35 Lyrica PO 300 mg BID HELENE Administration Quetiapine Fumarate 25 mg 03/01/20 11:16 Seroquel PO HS PRN Agitation Topiramate 25 mg 02/29/20 09:00 03/04/20 09:35 Topamax PO 25 mg BID HELENE Administration Intake and Output 03/03/20 03/04/20 03/04/20 22:59 06:59 14:59 Intake Total 100 480 Output Total 1460 500 Balance -1360 -500 480 Intake: IV 100 Oral 480 Output: Urine 1460 500 Other: # Bowel Movements 1 Weight 140 kg 03/04/20 06:16 03/04/20 06:46
--- NOTE | 2020-03-04 14:07 | P.PN ---
Subjective patient was admitted secondary to sepsis from diabetic foot ulcer. Patient blood cultures are positive for staph aureus and the wound cultures are positive for gram-negative bacilli.repeat blood cultures will be obtained for today and tomorrow patient's serum sodium improved to 134 patient is also being treated for heart failure exacerbation patient is on Lasix 40 IV twice a daythe patient has moderate mental status and confusional states and delirium secondary to infection. 03/02/2020 Past for surgery valid the patient they believe patient may need an amputation with patient will undergo angiogram because of her possible amputation on hold off on Coumadin. Patient will be continued on Lovenox. Patient blood pressures borderline patient respiratory status improved chest x-ray showed improvement in pulmonary edema alcohol changed Lasix to oral to cut down the lisinopril dose. 03/03/2020 Patient is undergoing angiogram today depending on that decision regarding amputation will be made tomorrow. Coumadin is on hold and vascular surgery recommending holding Lovenox as well. 03/04/2020 Patient is comparing of pain in the foot, cardiology evaluate the patient for preoperative clearance. Constitutional: Denied any fatigue denied any fever. Cardio vascular: denied any chest pain, palpitations Gastrointestinal denied any nausea vomiting Pulmonary: Denied any shortness of breath cough Neurologic denied any new focal deficits All inpatient medications were reviewed and appropriate changes in these medications as dictated in the interval history and assessment and plan. Objective - Vital Signs Vital signs: Vital Signs Temp 97.6 F 03/04/20 11:59 Pulse 72 03/04/20 11:59 Resp 18 03/04/20 11:59 BP 146/80 03/04/20 11:59 Pulse Ox 94 L 03/04/20 08:00 Intake & Output 03/03/20 03/04/20 03/04/20 18:59 06:59 18:59 Intake Total 100 480 Output Total 2100 1060 Balance -1999 -1060 480 Weight 140 kg Intake: IV 100 Oral 480 Output: Urine 2100 1060 Other: # Bowel Movements 1 - Exam PHYSICAL EXAMINATION: GENERAL: The patient is alert and oriented x3, not in any acute distress. Well developed, well nourished. HEENT: Pupils are round and equally reacting to light. EOMI. No scleral icterus. No conjunctival pallor. Normocephalic, atraumatic. No pharyngeal erythema. No thyromegaly. CARDIOVASCULAR: S1 and S2 present. No murmurs, rubs, or gallops. PULMONARY: Chest is clear to auscultation, no wheezing or crackles. ABDOMEN: Soft, nontender, nondistended, normoactive bowel sounds. No palpable organomegaly. MUSCULOSKELETAL: No joint swelling or deformity. EXTREMITIES: No cyanosis, clubbing, or pedal edema. 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 SKIN: No rashes. - Labs CBC & Chem 7: 03/04/20 06:16 03/04/20 06:46 Labs: Abnormal Lab Results - Last 24 Hours (Table) 03/03/20 03/03/20 03/04/20 Range/Units 17:43 20:14 06:16 RBC 4.27 L (4.30-5.90) m/uL PT (9.0-12.0) sec INR (<1.2) Sodium (137-145) mmol/L Glucose (74-99) mg/dL POC Glucose (mg/dL) 114 H 160 H (75-99) mg/dL Calcium (8.4-10.2) mg/dL 03/04/20 03/04/20 03/04/20 Range/Units 06:38 06:46 06:46 RBC (4.30-5.90) m/uL PT 16.3 H (9.0-12.0) sec INR 1.7 H (<1.2) Sodium 135 L (137-145) mmol/L Glucose 160 H (74-99) mg/dL POC Glucose (mg/dL) 146 H (75-99) mg/dL Calcium 8.0 L (8.4-10.2) mg/dL 03/04/20 Range/Units 12:33 RBC (4.30-5.90) m/uL PT (9.0-12.0) sec INR (<1.2) Sodium (137-145) mmol/L Glucose (74-99) mg/dL POC Glucose (mg/dL) 233 H (75-99) mg/dL Calcium (8.4-10.2) mg/dL Microbiology - Last 24 Hours (Table) 03/03/20 08:07 Blood Culture - Preliminary Blood No Growth after 24 hours 03/02/20 06:53 Blood Culture - Preliminary Blood No Growth after 48 hours 03/01/20 13:54 Blood Culture - Preliminary Blood No Growth after 48 hours Assessment and Plan Plan: -Cellulitis infection at the left foot ulcers: patient is septic and bacteremic at this time with the MRSA in the blood, but cultures will be up in as mentioned above and patient will be continued on vancomycin and the cefepime. Patient does have Enterobacter klebsiella pneumoniae and MRSA in the wound cultures. Repeat blood cultures are negative, patient had MRSA in the blood. Patient continues to be on Vanco and cefepime. Patient is undergoing angiogram today -Toxic encephalopathy from sepsis we will use Haldol or Seroquel for agitation. -congestive heart failure chronic systolic dysfunction with acute exacerbation patient had EF of aroundadmitted to 35%patientis patient is presently euvolemic, on oral Lasix -COPD without any acute exacerbation patient continues to smoke -History of PE in , patient will be continued on the Lovenox DVT prophylaxis dose, Coumadin will be held for possible amputation procedure -Hypertension -type 2 diabetes mellitus: Blood sugars are well controlled continued on home regimen -Hyperlipidemia -CVA/Tia in the past -History of pneumothorax in the past
--- NOTE | 2020-03-04 15:28 | PN ---
PROGRESS NOTE This is a 65-year-old gentleman, well known to me from the past. The patient has been coming to the wound clinic for the last 6 months with a recurrent wound on his plantar aspect. We had local wound debridement and IV antibiotic. The patient has been admitted with sepsis, found to have draining pus from the plantar aspect of the foot ulcer. For that patient had debridement done, but still there is a deep infection involving the foot. The patient has a Charcot foot and has varus deformity of the foot. The patient also a history of chronic venous hypertension, history of blood clot in the past, bilateral. He has extensive brown induration of the lower extremity with some superficial ulcer at the ceron area. We have discussed several options with the family. The option is to disarticulate the foot and control the infection, possible BKA, but his skin has a brown induration and is not very healthy skin. Other option was discussed to have an above-knee amputation, with which there is a good chance of wound healing because there is decent tissue and skin present above the knee without any ulcer formation. The patient needs cardiac clearance. The patient is willing to go with above-knee amputation. We will wait for the clearance and arrange for surgery. In the meantime, we will continue with IV antibiotic and local wound care. Discussed with Infectious Disease and hospitalist about the clearance. MMODL / IJN: [id number] /
--- NOTE | 2020-03-04 16:50 | PN ---
PROGRESS NOTE DATE OF SERVICE: 03/04/2020 REASON FOR FOLLOWUP: Left diabetic foot infection and bacteremia. INTERVAL HISTORY: Patient is currently afebrile. The patient is breathing comfortably. Patient denies having any chest pain or cough, no nausea, no abdominal pain or any worsening pain in the left foot area. PHYSICAL EXAMINATION: Blood pressure is 146/80 with a pulse of 72, temperature is 97.6, 94% on 2 L nasal cannula. General description is a middle-aged male, lying in bed in no distress. RESPIRATORY SYSTEM: Unlabored breathing, clear to auscultation anteriorly. HEART: S1, S2. Regular rate and rhythm. ABDOMEN: Soft, no tenderness. Left foot is currently dressed with no obvious drainage on the dressing. LABS: Hemoglobin is 13.8, white count 8.1, creatinine 0.93. White count is elevated to 24.8, blood culture repeat has been negative. DIAGNOSTIC IMPRESSION AND PLAN: Patient with left diabetic foot infection. Culture positive for Enterobacter and MRSA and the patient did have MRSA bacteremia. Repeat blood culture has been negative. Patient is covered with the vancomycin, dose should be cut back to keep the trough around 15 along with cefepime to continue possible amputation tomorrow. Continue supportive care. MMODL / IJN: [id number] /
[2020-03-04 17:04] LABS: Glucose,Whole Blood 258 mg/dL (75-99)
[2020-03-04] MEDS: VANCOMYCIN 1,750 MG in SODIUM CHLORIDE 0.9% 500 ML 500 ML IVPB SCH (20:03)
--- NOTE | 2020-03-04 20:07 | ECHOF ---
Referral Reason:lv function MEASUREMENTS -------- HEIGHT: 188.0 cm WEIGHT: 139.7 kg BP: IVSd: 1.3 cm (0.6 - 1.1) LVIDd: 4.2 cm (3.9 - 5.3) LVPWd: 1.4 cm (0.6 - 1.1) IVSs: 1.5 cm LVIDs: 2.5 cm LVPWs: 1.5 cm MV E Josh: 0.59 m/s MV DecT: 224 ms MV A Josh: 0.52 m/s MV E/A Ratio: 1.12 RAP: 5.00 mmHg RVSP: 11.42 mmHg FINDINGS -------- Sinus rhythm. This was a technically difficult study with suboptimal views. The left ventricular size is normal. There is mild concentric left ventricular hypertrophy. Overa ll left ventricular systolic function is normal with, an EF between 55 - 60 %. The RV was not well visualized. The left atrium was not well visualized. The right atrium was not well visualized. Lumason used The aortic valve was not well visualized. The mitral valve was not well visualized. There is trace mitral regurgitation. The tricuspid valve was not well visualized. Trace tricuspid regurgitation present. Right ventric ular systolic pressure is normal at < 35 mmHg. The pulmonic valve was not well visualized. There is no pericardial effusion. CONCLUSIONS -------- 1. There is mild concentric left ventricular hypertrophy. 2. Overall left ventricular systolic function is normal with, an EF between 55 - 60 %. 3. The aortic valve was not well visualized. 4. There is trace mitral regurgitation. 5. Trace tricuspid regurgitation present. 6. There is no pericardial effusion. HEAD STOCK OPERATOR: Courtney Villegas, [facility]
[2020-03-04] MEDS: NORTRIPTYLINE 25 MG CAP PO SCH (20:11)
[2020-03-04] MEDS: ATORVASTATIN 80 MG TAB PO SCH (20:12)
[2020-03-04 20:32] LABS: Glucose,Whole Blood 260 mg/dL (75-99)
[2020-03-05] MEDS: SODIUM CHLORIDE 0.9% 1,000 ML IV SCH (03:44)
[2020-03-05 06:26] LABS: Glucose,Whole Blood 131 mg/dL (75-99)
[2020-03-05] MEDS: INSULIN ASPART (NovoLOG) 100 UNIT/ML VIAL SQ SCH ×4 (06:26→22:05)
[2020-03-05] MEDS: IPRATROPIUM 0.5 MG/2.5 ML NEBU INHALATION SCH ×4 (07:44→19:55)
[2020-03-05] MEDS: ASPIRIN 81 MG PO SCH (08:25)
[2020-03-05] MEDS: PANTOPRAZOLE 40 MG TABLET PO SCH ×2 (08:25→22:04)
[2020-03-05] MEDS: MELOXICAM 7.5 MG TAB PO SCH (08:26)
[2020-03-05] MEDS: AMIODARONE 200 MG TAB PO SCH ×3 (08:26→22:03)
[2020-03-05] MEDS: METOPROLOL SUCCINATE (ER) 50 MG TAB.ER.24H PO SCH (08:26)
[2020-03-05] MEDS: FUROSEMIDE 40 MG TAB PO SCH (08:26)
[2020-03-05] MEDS: lisinopriL 10 MG TAB PO SCH (08:26)
[2020-03-05] MEDS: metFORMIN 500 MG TAB PO SCH ×2 (08:27→22:03)
[2020-03-05] MEDS: TOPIRAMATE 25 MG TAB PO SCH ×2 (08:27→22:04)
[2020-03-05] MEDS: VANCOMYCIN 1,750 MG in SODIUM CHLORIDE 0.9% 500 ML 500 ML IVPB SCH ×2 (08:27→22:03)
[2020-03-05] MEDS: MULTIVITAMINS, THERA 1 EACH TAB PO SCH (08:27)
[2020-03-05] MEDS: ENOXAPARIN 40 MG/0.4 ML SYRINGE SQ SCH (08:33)
[2020-03-05] MEDS: CEFEPIME 2 GM in SODIUM CHLORIDE 0.9% 100 ML IVPB SCH ×2 (08:33→22:04)
[2020-03-05] MEDS: PREGABALIN 100 MG CAP PO SCH ×2 (08:34→22:03)
--- NOTE | 2020-03-05 09:25 | IR ---
EXAMINATION TYPE: IR angio abdominal w runoff DATE OF EXAM: 03/03/2020 CLINICAL HISTORY: Peripheral arterial disease. Chronic wound left foot. TECHNIQUE: Fluoroscopy. COMPARISON: None. FINDINGS: Fluoroscopic guidance was provided during angiogram with lower extremity procedure perform ed by Dr. Mcintyre. A total of 2.2 minutes of fluoroscopic time was utilized during the procedure and 5 cine runs are acquired. Images show access the right groin. There is right mid abdominal IVC filte r. There is left common iliac arterial stent graft. There is metallic hardware from left hip arthropl asty. Please refer to procedure note for further details as I was not present nor performed procedure . IMPRESSION: As Above.
[2020-03-05] MEDS: oxyCODONE-APAP 10-325MG 1 EACH TAB PO PRN (11:15)
[2020-03-05 12:26] LABS: Glucose,Whole Blood 335 mg/dL (75-99)
--- NOTE | 2020-03-05 12:46 | P.PN ---
Subjective Progress Note Date: 03/05/20 CHIEF COMPLAINT: Surgical clearance HISTORY OF PRESENT ILLNESS: Patient examined this morning at the bedside. Denies chest pain. Denies short of breath. Echocardiogram completed reveals ejection fraction between 55 and 60%, trace mitral regurgitation, and trace tricuspid regurgitation. Patient states he is going for his amputation tomorrow. PHYSICAL EXAM: VITAL SIGNS: Reviewed. GENERAL: Well-developed in no acute distress. HEENT: Head is normocephalic. Pupils are equal, round. Sclerae anicteric. Mucous membranes of the mouth are moist. Neck supple. No JVD or thyromegaly LUNGS: Respirations even and unlabored. Lungs essentially clear to auscultation bilaterally. HEART: Regular rate and rhythm. S1 and S2 heard. ABDOMEN: Soft. Nontender. EXTREMITIES: Normal range of motion. No clubbing or cyanosis. Left lower extremity with Kerlix dressing noted. NEUROLOGIC: Awake and alert. Oriented x 3. ASSESSMENT: 1. Chronic wound of left foot, scheduled for amputation this week 2. Hypertension 3. Hyperlipidemia 4. History of DVT/PE 5. Diabetes mellitus PLAN: -Continue current cardiac medications -Continue to hold Coumadin for anticipated surgical intervention of left foot -Patient is cleared for surgery from a cardiac standpoint. He is high risk for surgery but there are no absolute contraindications to proceed with amputation. Nurse practitioner note has been reviewed by physician. Signing provider agrees with the documented findings, assessment, and plan of care. Objective - Vital Signs Vital signs: Vital Signs Temp 98.2 F 03/05/20 08:00 Pulse 58 L 03/05/20 08:00 Resp 16 03/05/20 08:00 BP 102/54 03/05/20 08:00 Pulse Ox 95 03/05/20 08:00 Intake & Output 03/04/20 03/05/20 03/05/20 18:59 06:59 18:59 Intake Total 1076 840 240 Output Total 850 1175 Balance 226 -335 240 Weight 135 kg Intake: Intake, IV Titration 600 Amount Cefepime 2 gm In Sodium 100 Chloride 0.9% 100 ml @ 25 mls/hr IVPB Q12HR HELENE Rx #:[id number] Vancomycin 2,000 mg In 500 Sodium Chloride 0.9% 500 ml 500 ml @ 167 mls/hr IVPB Q12H HELENE Rx#: [id number] Oral 1076 240 240 Output: Urine 850 1175 Other: Voiding Method Indwelling Catheter # Voids 0 - Labs CBC & Chem 7: 03/04/20 06:16 03/04/20 06:46 Labs: Abnormal Lab Results - Last 24 Hours (Table) 03/04/20 03/04/20 03/04/20 Range/Units 12:33 17:03 20:30 POC Glucose (mg/dL) 233 H 258 H 260 H (75-99) mg/dL 03/05/20 Range/Units 06:24 POC Glucose (mg/dL) 131 H (75-99) mg/dL Microbiology - Last 24 Hours (Table) 03/03/20 08:07 Blood Culture - Preliminary Blood No Growth after 48 hours 03/02/20 06:53 Blood Culture - Preliminary Blood No Growth after 72 hours 03/01/20 13:54 Blood Culture - Preliminary Blood No Growth after 72 hours
--- NOTE | 2020-03-05 13:41 | P.PN ---
Subjective patient was admitted secondary to sepsis from diabetic foot ulcer. Patient blood cultures are positive for staph aureus and the wound cultures are positive for gram-negative bacilli.repeat blood cultures will be obtained for today and tomorrow patient's serum sodium improved to 134 patient is also being treated for heart failure exacerbation patient is on Lasix 40 IV twice a daythe patient has moderate mental status and confusional states and delirium secondary to infection. 03/02/2020 Past for surgery valid the patient they believe patient may need an amputation with patient will undergo angiogram because of her possible amputation on hold off on Coumadin. Patient will be continued on Lovenox. Patient blood pressures borderline patient respiratory status improved chest x-ray showed improvement in pulmonary edema alcohol changed Lasix to oral to cut down the lisinopril dose. 03/03/2020 Patient is undergoing angiogram today depending on that decision regarding amputation will be made tomorrow. Coumadin is on hold and vascular surgery recommending holding Lovenox as well. 03/04/2020 Patient is comparing of pain in the foot, cardiology evaluate the patient for preoperative clearance. 03/05/2020 No overnight events patient the blood sugars are bit elevated but will titrate his regimen after the surgery. Patient will go for amputation tomorrow Constitutional: Denied any fatigue denied any fever. Cardio vascular: denied any chest pain, palpitations Gastrointestinal denied any nausea vomiting Pulmonary: Denied any shortness of breath cough Neurologic denied any new focal deficits All inpatient medications were reviewed and appropriate changes in these medications as dictated in the interval history and assessment and plan. Objective - Vital Signs Vital signs: Vital Signs Temp 98.2 F 03/05/20 08:00 Pulse 58 L 03/05/20 08:00 Resp 16 03/05/20 11:51 BP 102/54 03/05/20 08:00 Pulse Ox 95 03/05/20 08:00 Intake & Output 03/04/20 03/05/20 03/05/20 18:59 06:59 18:59 Intake Total 1076 840 240 Output Total 850 1175 Balance 226 -335 240 Weight 135 kg Intake: Intake, IV Titration 600 Amount Cefepime 2 gm In Sodium 100 Chloride 0.9% 100 ml @ 25 mls/hr IVPB Q12HR [facility] Rx #:[id number] Vancomycin 2,000 mg In 500 Sodium Chloride 0.9% 500 ml 500 ml @ 167 mls/hr IVPB Q12H [facility] Rx#: [id number] Oral 1076 240 240 Output: Urine 850 1175 Other: Voiding Method Indwelling Catheter Indwelling Catheter # Voids 0 0 - Exam PHYSICAL EXAMINATION: GENERAL: The patient is alert and oriented x3, not in any acute distress. Well developed, well nourished. HEENT: Pupils are round and equally reacting to light. EOMI. No scleral icterus. No conjunctival pallor. Normocephalic, atraumatic. No pharyngeal erythema. No thyromegaly. CARDIOVASCULAR: S1 and S2 present. No murmurs, rubs, or gallops. PULMONARY: Chest is clear to auscultation, no wheezing or crackles. ABDOMEN: Soft, nontender, nondistended, normoactive bowel sounds. No palpable organomegaly. MUSCULOSKELETAL: No joint swelling or deformity. EXTREMITIES: No cyanosis, clubbing, or pedal edema. 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 SKIN: No rashes. - Labs CBC & Chem 7: 03/04/20 06:16 03/04/20 06:46 Labs: Abnormal Lab Results - Last 24 Hours (Table) 03/04/20 03/04/20 03/05/20 Range/Units 17:03 20:30 06:24 POC Glucose (mg/dL) 258 H 260 H 131 H (75-99) mg/dL 03/05/20 Range/Units 12:25 POC Glucose (mg/dL) 335 H (75-99) mg/dL Microbiology - Last 24 Hours (Table) 03/03/20 08:07 Blood Culture - Preliminary Blood No Growth after 48 hours 03/02/20 06:53 Blood Culture - Preliminary Blood No Growth after 72 hours 03/01/20 13:54 Blood Culture - Preliminary Blood No Growth after 72 hours Assessment and Plan Plan: -Cellulitis infection at the left foot ulcers: patient is septic and bacteremic at this time with the MRSA in the blood, but cultures will be up in as mentioned above and patient will be continued on vancomycin and the cefepime. Patient does have Enterobacter klebsiella pneumoniae and MRSA in the wound cultures. Repeat blood cultures are negative, patient had MRSA in the blood. Patient continues to be on Vanco and cefepime. Patient will go for amputation tomorrow -Toxic encephalopathy resolved at this time -congestive heart failure chronic systolic dysfunction with acute exacerbation patient had EF of aroundadmitted to 35%patientis patient is presently euvolemic, on oral Lasix -COPD without any acute exacerbation patient continues to smoke -History of PE in , patient will be continued on the Lovenox DVT prophylaxis do se, Coumadin will be held for amputation procedure -Hypertension -type 2 diabetes mellitus: Blood sugars are well controlled continued on home regimen -Hyperlipidemia -CVA/Tia in the past -History of pneumothorax in the past
--- NOTE | 2020-03-05 15:44 | XR ---
EXAMINATION TYPE: XR Hip Complete LT DATE OF EXAM: 03/05/2020 CLINICAL HISTORY: Placement of prosthesis TECHNIQUE: AP and frogleg views of the left hip are obtained. COMPARISON: 08/08/2016 left hip radiograph FINDINGS: Left hip total arthroplasty redemonstrated with no evidence of dislocation, hardware fract ure, or periprosthetic loosening. Incompletely visualized left iliac vascular stent. There is no acut e fracture or dislocation of the left hip. Pubic symphysis normal. IMPRESSION: Left hip total arthroplasty unchanged in appearance versus 08/08/2016 radiograph compariso n, with no evidence of hardware failure.
--- NOTE | 2020-03-05 16:23 | PN ---
PROGRESS NOTE DATE OF SERVICE: 03/05/2020 REASON FOR FOLLOWUP: Left diabetic foot infection with possible osteomyelitis and MRSA bacteremia. INTERVAL HISTORY: Patient is currently afebrile, he is breathing comfortably. Denies having any chest pain or cough. No nausea, vomiting, abdominal pain, or any worsening pain to the left foot. PHYSICAL EXAMINATION: Blood pressure 113/63 with a pulse of 71, temperature 98.2, he is 94% on room air. General description is a middle-aged male, lying in bed in no distress. RESPIRATORY SYSTEM: Unlabored breathing, clear to auscultation anteriorly. HEART: S1, S2. Regular rate and rhythm. ABDOMEN: Soft. No tenderness. Left foot is currently dressed up. No obvious drainage on the dressing. DIAGNOSTIC IMPRESSION AND PLAN: Patient with left diabetic foot infection, concern for underlying deep infection, osteo with underlying Charcot foot, possible amputation. Patient is covered with cefepime and vancomycin to continue. Will monitor clinical course closely. MMODL / IJN: [id number] /
[2020-03-05 16:59] LABS: Glucose,Whole Blood 256 mg/dL (75-99)
[2020-03-05 21:01] LABS: Glucose,Whole Blood 215 mg/dL (75-99)
[2020-03-05] MEDS: ATORVASTATIN 80 MG TAB PO SCH (22:04)
[2020-03-05] MEDS: NORTRIPTYLINE 25 MG CAP PO SCH (22:04)
[2020-03-06] MEDS: oxyCODONE-APAP 10-325MG 1 EACH TAB PO PRN ×2 (00:19→20:08)
[2020-03-06 06:32] LABS: Glucose,Whole Blood 157 mg/dL (75-99)
[2020-03-06] MEDS: INSULIN ASPART (NovoLOG) 100 UNIT/ML VIAL SQ SCH ×4 (06:46→23:11)
[2020-03-06] MEDS: SODIUM CHLORIDE 0.9% 1,000 ML IV SCH ×2 (08:00→20:13)
[2020-03-06] MEDS ORDERED: VANCOMYCIN TROUGH DUE 1 EACH MISC MISCELLANE ONE (08:00)
[2020-03-06 08:13] LABS: African American GFR (CKD) >90 (>60 ml/min/1.73 sqM); Anion Gap 6 mmol/L; Blood Urea Nitrogen 13 mg/dL (9-20); Carbon Dioxide 26 mmol/L (22-30); Chloride 103 mmol/L (98-107); Glucose 157 mg/dL (74-99); Non-African American GFR(CKD) >90 (>60 ml/min/1.73 sqM); Sodium 135 mmol/L (137-145)
[2020-03-06] MEDS: IPRATROPIUM 0.5 MG/2.5 ML NEBU INHALATION SCH ×4 (08:44→19:34)
[2020-03-06] MEDS: TOPIRAMATE 25 MG TAB PO SCH (10:27)
[2020-03-06] MEDS: FUROSEMIDE 40 MG TAB PO SCH ×2 (10:27→18:54)
[2020-03-06] MEDS: PREGABALIN 100 MG CAP PO SCH ×2 (10:27→20:07)
[2020-03-06] MEDS: ACETAMINOPHEN TAB 325 MG TAB PO PRN (10:27)
[2020-03-06] MEDS: lisinopriL 10 MG TAB PO SCH (10:28)
[2020-03-06] MEDS: MELOXICAM 7.5 MG TAB PO SCH (10:28)
[2020-03-06] MEDS: ASPIRIN 81 MG PO SCH (10:28)
[2020-03-06] MEDS: MULTIVITAMINS, THERA 1 EACH TAB PO SCH (10:28)
[2020-03-06] MEDS: AMIODARONE 200 MG TAB PO SCH ×2 (10:29→18:54)
[2020-03-06] MEDS: CEFEPIME 2 GM in SODIUM CHLORIDE 0.9% 100 ML IVPB SCH ×2 (10:29→20:09)
[2020-03-06] MEDS: PANTOPRAZOLE 40 MG TABLET PO SCH ×2 (10:29→20:07)
[2020-03-06] MEDS: METOPROLOL SUCCINATE (ER) 50 MG TAB.ER.24H PO SCH (10:29)
[2020-03-06] MEDS: VANCOMYCIN 1,750 MG in SODIUM CHLORIDE 0.9% 500 ML 500 ML IVPB SCH (10:29)
[2020-03-06] MEDS: ENOXAPARIN 40 MG/0.4 ML SYRINGE SQ SCH (10:30)
[2020-03-06] MEDS: metFORMIN 500 MG TAB PO SCH (10:30)
--- NOTE | 2020-03-06 10:43 | P.PN ---
Subjective patient was admitted secondary to sepsis from diabetic foot ulcer. Patient blood cultures are positive for staph aureus and the wound cultures are positive for gram-negative bacilli.repeat blood cultures will be obtained for today and tomorrow patient's serum sodium improved to 134 patient is also being treated for heart failure exacerbation patient is on Lasix 40 IV twice a daythe patient has moderate mental status and confusional states and delirium secondary to infection. 03/02/2020 Past for surgery valid the patient they believe patient may need an amputation with patient will undergo angiogram because of her possible amputation on hold off on Coumadin. Patient will be continued on Lovenox. Patient blood pressures borderline patient respiratory status improved chest x-ray showed improvement in pulmonary edema alcohol changed Lasix to oral to cut down the lisinopril dose. 03/03/2020 Patient is undergoing angiogram today depending on that decision regarding amputation will be made tomorrow. Coumadin is on hold and vascular surgery recommending holding Lovenox as well. 03/04/2020 Patient is comparing of pain in the foot, cardiology evaluate the patient for preoperative clearance. 03/05/2020 No overnight events patient the blood sugars are bit elevated but will titrate his regimen after the surgery. Patient will go for amputation tomorrow 03/06/2020 Patient is going for amputation today blood sugars are high regimen will be changed once he is done with the surgery Constitutional: Denied any fatigue denied any fever. Cardio vascular: denied any chest pain, palpitations Gastrointestinal denied any nausea vomiting Pulmonary: Denied any shortness of breath cough Neurologic denied any new focal deficits All inpatient medications were reviewed and appropriate changes in these medications as dictated in the interval history and assessment and plan. Objective - Vital Signs Vital signs: Vital Signs Temp 99.4 F 03/06/20 00:00 Pulse 69 03/06/20 04:00 Resp 18 03/06/20 04:00 BP 136/60 03/06/20 00:00 Pulse Ox 92 L 03/06/20 00:00 Intake & Output 03/05/20 03/06/20 03/06/20 18:59 06:59 18:59 Intake Total 1080 Output Total 1200 400 300 Balance -120 -400 -300 Weight 134.7 kg Intake: Intake, IV Titration 600 Amount Cefepime 2 gm In Sodium 100 Chloride 0.9% 100 ml @ 25 mls/hr IVPB Q12HR [facility] Rx #:[id number] Vancomycin 1,750 mg In 500 Sodium Chloride 0.9% 500 ml 500 ml @ 167 mls/hr IVPB Q12HR [facility] Rx#: [id number] Oral 480 Output: Urine 1200 400 300 Other: Voiding Method Indwelling Catheter Indwelling Catheter # Voids 0 0 # Bowel Movements 0 - Exam PHYSICAL EXAMINATION: GENERAL: The patient is alert and oriented x3, not in any acute distress. Well developed, well nourished. HEENT: Pupils are round and equally reacting to light. EOMI. No scleral icterus. No conjunctival pallor. Normocephalic, atraumatic. No pharyngeal erythema. No thyromegaly. CARDIOVASCULAR: S1 and S2 present. No murmurs, rubs, or gallops. PULMONARY: Chest is clear to auscultation, no wheezing or crackles. ABDOMEN: Soft, nontender, nondistended, normoactive bowel sounds. No palpable organomegaly. MUSCULOSKELETAL: No joint swelling or deformity. EXTREMITIES: No cyanosis, clubbing, or pedal edema. Patient has extensive colitis of the left lower extremity with the local is of temperature and redness along with the 2 superficial ulcers with the fistula, indicating between ulcers patient has chronic venous stasis dermatosis in both legs and patient had an a mputation of the first and second toes as mentioned above NEUROLOGICAL: Gross neurological examination did not reveal any focal deficits. SKIN: No rashes. - Labs CBC & Chem 7: 03/04/20 06:16 03/06/20 07:30 Labs: Abnormal Lab Results - Last 24 Hours (Table) 03/05/20 03/05/20 03/05/20 Range/Units 12:25 16:57 20:32 Sodium (137-145) mmol/L Glucose (74-99) mg/dL POC Glucose (mg/dL) 335 H 256 H 215 H (75-99) mg/dL Calcium (8.4-10.2) mg/dL 03/06/20 03/06/20 Range/Units 06:19 07:30 Sodium 135 L (137-145) mmol/L Glucose 157 H (74-99) mg/dL POC Glucose (mg/dL) 157 H (75-99) mg/dL Calcium 8.0 L (8.4-10.2) mg/dL Microbiology - Last 24 Hours (Table) 03/03/20 08:07 Blood Culture - Preliminary Blood No Growth after 72 hours 03/02/20 06:53 Blood Culture - Preliminary Blood No Growth after 96 hours 03/01/20 13:54 Blood Culture - Preliminary Blood No Growth after 96 hours Assessment and Plan Plan: -Cellulitis infection at the left foot ulcers: patient is septic and bacteremic at this time with the MRSA in the blood, but cultures will be up in as mentioned above and patient will be continued on vancomycin and the cefepime. Patient does have Enterobacter klebsiella pneumoniae and MRSA in the wound cultures. Repeat blood cultures are negative, patient had MRSA in the blood. Patient continues to be on Vanco and cefepime. Patient will go for amputation today. -Toxic encephalopathy resolved at this time -congestive heart failure chronic systolic dysfunction with acute exacerbation patient had EF of aroundadmitted to 35%patientis patient is presently euvolemic, on oral Lasix -COPD without any acute exacerbation patient continues to smoke -History of PE in , patient will be continued on the Lovenox DVT prophylaxis dose, Coumadin will be held for amputation procedure -Hypertension -type 2 diabetes mellitus: Blood sugars are well controlled continued on home regimen -Hyperlipidemia -CVA/Tia in the past -History of pneumothorax in the past
[2020-03-06 11:38] LABS: Glucose,Whole Blood 171 mg/dL (75-99)
[2020-03-06] MEDS ORDERED: SODIUM CHLORIDE 0.9% 500 ML 500 ML IV ONE (12:15)
[2020-03-06] MEDS ORDERED: fentaNYL (PF) 50 MCG/ML 2 ML AMP ONE (12:46)
[2020-03-06] MEDS ORDERED: NEOSTIGMINE 1 MG/ML 10 ML VIAL ONE (12:46)
[2020-03-06] MEDS ORDERED: PHENYLEPHRINE-0.9% NACL SYG 1 MG/10 ML SYRINGE ONE (12:46)
[2020-03-06] MEDS ORDERED: ROCURONIUM BROMIDE 10 MG/ML 5 ML VIAL IV ONE (12:46)
[2020-03-06] MEDS ORDERED: MIDAZOLAM 2 MG/2 ML VIAL ONE (12:46)
[2020-03-06] MEDS ORDERED: LIDOCAINE 1% INJ 10MG/ML (20 ML MDV) ONE (12:46)
[2020-03-06] MEDS ORDERED: GLYCOPYRROLATE 0.2 MG/ML 2 ML VIAL ONE (12:46)
[2020-03-06] MEDS ORDERED: HYDROmorphone (PF) 1 MG/ML ONE (12:46)
[2020-03-06] MEDS ORDERED: ePHEDrine SULFATE/0.9% NACL/PF 50 MG/5 ML SYRINGE IV ONE (12:46)
[2020-03-06] MEDS ORDERED: PROPOFOL 10 MG/ML 20 ML VIAL IV ONE (12:46)
--- NOTE | 2020-03-06 13:09 | P.PN ---
Subjective Progress Note Date: 03/06/20 CHIEF COMPLAINT: Surgical clearance HISTORY OF PRESENT ILLNESS: Patient examined this morning at the bedside. Denies chest pain. Denies short of breath. Vital signs are stable. Patient is scheduled for left foot amputation today. PHYSICAL EXAM: VITAL SIGNS: Reviewed. GENERAL: Well-developed in no acute distress. HEENT: Head is normocephalic. Pupils are equal, round. Sclerae anicteric. Mucous membranes of the mouth are moist. Neck supple. No JVD or thyromegaly LUNGS: Respirations even and unlabored. Lungs essentially clear to auscultation bilaterally. HEART: Regular rate and rhythm. S1 and S2 heard. EXTREMITIES: Normal range of motion. No clubbing or cyanosis. Left lower extremity with Kerlix dressing noted. NEUROLOGIC: Awake and alert. Oriented x 3. ASSESSMENT: 1. Chronic wound of left foot, scheduled for amputation today 2. Hypertension 3. Hyperlipidemia 4. History of DVT/PE 5. Diabetes mellitus PLAN: -Continue current cardiac medications -Continue to hold Coumadin for anticipated surgical intervention of left foot -Patient is cleared for surgery from a cardiac standpoint. He is high risk for surgery but there are no absolute contraindications to proceed with amputation -We will continue to follow the patient postoperatively and make further recommendations pending patient's course Nurse practitioner note has been reviewed by physician. Signing provider agrees with the documented findings, assessment, and plan of care. Objective - Vital Signs Vital signs: Vital Signs Temp 96.9 F L 03/06/20 12:25 Pulse 59 L 03/06/20 12:25 Resp 17 03/06/20 12:25 BP 122/69 03/06/20 12:25 Pulse Ox 94 L 03/06/20 08:00 Intake & Output 03/05/20 03/06/20 03/06/20 18:59 06:59 18:59 Intake Total 1080 0 Output Total 1200 400 300 Balance -120 -400 -300 Weight 134.7 kg Intake: IV 0 Intake, IV Titration 600 Amount Cefepime 2 gm In Sodium 100 Chloride 0.9% 100 ml @ 25 mls/hr IVPB Q12HR [facility] Rx #:[id number] Vancomycin 1,750 mg In 500 Sodium Chloride 0.9% 500 ml 500 ml @ 167 mls/hr IVPB Q12HR [facility] Rx#: [id number] Oral 480 Output: Urine 1200 400 300 Other: Voiding Method Indwelling Catheter Indwelling Catheter # Voids 0 0 # Bowel Movements 0 - Labs CBC & Chem 7: 03/04/20 06:16 03/06/20 07:30 Labs: Abnormal Lab Results - Last 24 Hours (Table) 03/05/20 03/05/20 03/06/20 Range/Units 16:57 20:32 06:19 Sodium (137-145) mmol/L Glucose (74-99) mg/dL POC Glucose (mg/dL) 256 H 215 H 157 H (75-99) mg/dL Calcium (8.4-10.2) mg/dL 03/06/20 03/06/20 Range/Units 07:30 11:37 Sodium 135 L (137-145) mmol/L Glucose 157 H (74-99) mg/dL POC Glucose (mg/dL) 171 H (75-99) mg/dL Calcium 8.0 L (8.4-10.2) mg/dL Microbiology - Last 24 Hours (Table) 03/03/20 08:07 Blood Culture - Preliminary Blood No Growth after 72 hours 03/02/20 06:53 Blood Culture - Preliminary Blood No Growth after 96 hours 03/01/20 13:54 Blood Culture - Preliminary Blood No Growth after 96 hours
[2020-03-06] MEDS ORDERED: LACTATED RINGERS 1,000 ML IV ONE ×4 (13:28→17:08)
--- NOTE | 2020-03-06 14:03 | PN ---
PROGRESS NOTE DATE OF SERVICE: 03/06/2020 REASON FOR FOLLOWUP: Left diabetic foot infection with bacteremia. INTERVAL HISTORY: The patient is currently afebrile, has been breathing comfortably. Patient is scheduled for left [id number] amputation this afternoon. Denies having any chest pain or shortness of breath or cough or any worsening pain to the left foot. PHYSICAL EXAMINATION: Blood pressure 122/69 with a pulse of 59, temperature 96.9. General description is a middle-aged male, lying in bed in no distress. RESPIRATORY SYSTEM: Unlabored breathing, clear to auscultation anteriorly. HEART: S1, S2. Regular rate and rhythm. ABDOMEN: Soft. No tenderness. Left foot is currently dressed up. No obvious drainage on the dressing. LABS: BUN of 13, creatinine 0.75. Vancomycin trough is still elevated 22.4. Blood culture repeat has been negative. DIAGNOSTIC IMPRESSION AND PLAN: Patient with left diabetic foot infection with polymicrobial. Patient is currently covered with the cefepime and vancomycin. Vancomycin dose to be adjusted down to keep the trough around 15, post amputation. Patient not need to be on long-term antibiotic therapy. Continue supportive care. MMODL / IJN: [id number] /
--- NOTE | 2020-03-06 15:31 | OP ---
OPERATIVE REPORT PREOPERATIVE DIAGNOSES: 1. Chronic wound, left foot. 2. Venous hypertension with superficial ulcer, left lower extremity. 3. History of chronic deep venous thrombosis. POSTOPERATIVE DIAGNOSES: 1. Chronic wound, left foot. 2. Venous hypertension with superficial ulcer, left lower extremity. 3. History of chronic deep venous thrombosis. OPERATION: Left above-knee amputation. This patient has a large wound on his plantar aspect of the left foot and also patient has a Charcot foot with of the foot at the ankle medially. PROCEDURE DESCRIPTION: The patient was brought to the operating room. Left leg was prepped and draped in sterile manner. Incision was made on the anterior aspect of the thigh, deepened through skin, fat and fascia. Then a medial incision was made which was deepened through skin, fat and fascia. Lateral incision was made and posterior incision was made down to the fascia. After that, anterior compartment muscles were divided and then the medial compartment muscles were divided until we dissected the femoral artery proximal and distal control was obtained and femoral vein was dissected proximal and distal control was obtained and divided and tied with 3-0 Prolene. After that we divided the anterior compartment muscles down to the femur and periosteum elevator were used to elevate the periosteum from the femur. Lateral compartment muscles were divided. Also we divided the posterior compartment muscles. Sciatic nerve was dissected and divided with traction and tied with 0 Prolene. Femur was divided with hand saw and the wound was copiously irrigated with hydrogen peroxide and saline. Femur was covered by the anterior and posterior compartment muscles using 0 Vicryl and the fascia was approximated with 0 Vicryl with interrupted suture. Skin was closed with 3-0 nylon with mattress suture. Occlusive dressing was applied. The patient was transferred to the recovery room in satisfactory condition. MMODL / IJN: [id number] /
[2020-03-06 15:35] LABS: Glucose,Whole Blood 180 mg/dL (75-99)
[2020-03-06] MEDS ORDERED: PHENYLEPHRINE 10 MG/ML VIAL IV ONE (15:54)
[2020-03-06] MEDS: HYDROmorphone 1 MG/ML 1 ML SYRINGE IVP ONE ×2 (16:45→17:09)
[2020-03-06 18:33] LABS: Glucose,Whole Blood 203 mg/dL (75-99)
[2020-03-06] MEDS: ATORVASTATIN 80 MG TAB PO SCH (20:07)
[2020-03-06 21:13] LABS: Glucose,Whole Blood 207 mg/dL (75-99)
[2020-03-06] MEDS: HYDROmorphone 1 MG/ML 1 ML SYRINGE IVP PRN (22:58)
[2020-03-07] MEDS: VANCOMYCIN 1,750 MG in SODIUM CHLORIDE 0.9% 500 ML 500 ML IVPB SCH ×2 (02:34→17:19)
[2020-03-07] MEDS: AMIODARONE 200 MG TAB PO SCH ×3 (02:34→21:30)
[2020-03-07] MEDS: HEPARIN SODIUM,PORCINE 5,000 UNIT/ML 1 ML VIAL SQ SCH ×3 (02:34→15:34)
[2020-03-07] MEDS: NORTRIPTYLINE 25 MG CAP PO SCH ×2 (02:36→22:58)
[2020-03-07] MEDS: TOPIRAMATE 25 MG TAB PO SCH ×3 (02:36→22:58)
[2020-03-07] MEDS: HYDROmorphone 1 MG/ML 1 ML SYRINGE IVP PRN ×6 (02:45→22:57)
[2020-03-07] MEDS: metFORMIN 500 MG TAB PO SCH ×3 (03:03→21:30)
[2020-03-07 07:05] LABS: Glucose,Whole Blood 230 mg/dL (75-99)
[2020-03-07] MEDS: IPRATROPIUM 0.5 MG/2.5 ML NEBU INHALATION SCH ×4 (08:01→19:26)
[2020-03-07] MEDS: CEFEPIME 2 GM in SODIUM CHLORIDE 0.9% 100 ML IVPB SCH ×2 (08:02→21:29)
[2020-03-07] MEDS: INSULIN ASPART (NovoLOG) 100 UNIT/ML VIAL SQ SCH ×4 (08:04→21:29)
[2020-03-07] MEDS: PREGABALIN 100 MG CAP PO SCH ×2 (08:04→21:30)
[2020-03-07] MEDS: MELOXICAM 7.5 MG TAB PO SCH (08:04)
[2020-03-07] MEDS: ASPIRIN 81 MG PO SCH (08:04)
[2020-03-07] MEDS: PANTOPRAZOLE 40 MG TABLET PO SCH ×2 (08:04→21:30)
[2020-03-07] MEDS: MULTIVITAMINS, THERA 1 EACH TAB PO SCH (08:05)
[2020-03-07] MEDS: FUROSEMIDE 40 MG TAB PO SCH ×2 (08:05→15:34)
[2020-03-07] MEDS: METOPROLOL SUCCINATE (ER) 50 MG TAB.ER.24H PO SCH (08:05)
[2020-03-07] MEDS: lisinopriL 10 MG TAB PO SCH (08:05)
--- NOTE | 2020-03-07 09:55 | P.PN ---
Progress Note - Text 64-year-old gentleman patient chronic wound left lower extremity patient went for right above-knee amputation. Patient was seen in his room some discomfort in the left stump dressing is intact plan is continue with IV antibiotic we will change her dressing on Monday patient is stable
[2020-03-07 11:04] LABS: Glucose,Whole Blood 347 mg/dL (75-99)
--- NOTE | 2020-03-07 13:28 | P.PN ---
Subjective Pt underwent left above the knee amputation yesterday with Dr. Mcintyre. He is seen and examined laying flat in bed. He is breathing comfortably with no chest pain, however he is complaining of significant pain the left leg. Blood pressure 124/69 heart rate 83 afebrile maintaining oxygen saturation on nasal cannula. Currently maintained on amiodarone 200 mg 3 times a day, aspirin 81 mg daily, atorvastatin 80 mg at bedtime, Lasix 40 mg by mouth twice a day, lisinopril 10 mg daily and toprol 50 mg daily. GENERAL: Well-appearing, well-nourished and in no acute distress. Obese. NECK: Supple without JVD or thyromegaly. LUNGS: Breath sounds clear to auscultation bilaterally. Respiration equal and unlabored. No wheezes, rales or rhonchi. HEART: Regular rate and rhythm without murmurs, rubs or gallops. S1 and S2 heard. EXTREMITIES: Normal range of motion, no edemato the right lower extremity, dressing in place to the left [id number] amputation stump. ASSESSMENT Chronic non-healing wound to left lower extremity s/p left above the knee amputation, POD#1 Paroxysmal atrial fibrillation on correction anti-coagulation with coumadin Hypertension Dyslipidemia History of DVT/PE Diabetes mellitus PLAN Continue current medical regimen. Resume coumadin as soon as is appropriate per vascular surgery. Follow up with Dr. Heaton upon discharge. We will follow along as needed, please call with further questions or concerns. Nurse Practitioner note has been reviewed, I agree with a documented findings and plan of care. Patient was seen and examined. Objective - Vital Signs Vital signs: Vital Signs Temp 98.5 F 03/07/20 11:23 Pulse 83 03/07/20 11:23 Resp 18 03/07/20 11:23 BP 124/69 03/07/20 11:23 Pulse Ox 97 03/07/20 11:23 Intake & Output 03/06/20 03/07/20 03/07/20 18:59 06:59 18:59 Intake Total 2800 100 Output Total 1550 500 Balance 1250 -500 100 Weight 134.7 kg Intake: IV 2800 Intake, IV Titration 100 Amount Cefepime 2 gm In Sodium 100 Chloride 0.9% 100 ml @ 25 mls/hr IVPB Q12HR [facility] Rx #:[id number] Output: Urine 1150 500 Estimated Blood Loss 400 Other: Voiding Method Indwelling Catheter Indwelling Catheter # Voids 0 - Labs CBC & Chem 7: 03/04/20 06:16 03/06/20 07:30 Labs: Abnormal Lab Results - Last 24 Hours (Table) 03/06/20 03/06/20 03/06/20 Range/Units 15:33 18:31 20:44 POC Glucose (mg/dL) 180 H 203 H 207 H (75-99) mg/dL 03/07/20 03/07/20 Range/Units 07:03 11:03 POC Glucose (mg/dL) 230 H 347 H (75-99) mg/dL Microbiology - Last 24 Hours (Table) 03/03/20 08:07 Blood Culture - Preliminary Blood No Growth after 96 hours 03/02/20 06:53 Blood Culture - Preliminary Blood No Growth after 120 hours 03/01/20 13:54 Blood Culture - Preliminary Blood No Growth after 120 hours
--- NOTE | 2020-03-07 16:23 | PN ---
PROGRESS NOTE DATE OF SERVICE: 03/07/2020 This 64-year-old gentleman who was admitted with cellulitis of the left foot ulcer. The patient has sepsis and bacteremia. The patient underwent left above-knee amputation for chronic wound left foot and venous hypertension and history of chronic DVTs by Dr. Mcintyre. The patient being closely monitored. At this time, PT/OT is evaluating the patient closely. ECF rehab is also being suggested, but however the patient at this time insists that the patient go home with home care and PT. Past medical history reviewed. REVIEW OF SYSTEMS: CARDIOVASCULAR SYSTEM: No angina or palpitations. RESPIRATION as mentioned earlier. GI as mentioned earlier. no dysuria. NERVOUS SYSTEM as mentioned earlier. CURRENT MEDICATIONS: Reviewed and include: 1. Tylenol. 2. Ventolin. 3. Cordarone. 4. Aspirin. 5. Lipitor. 6. Cefepime 2 g. 7. Colace. 8. Lasix. 9. Haldol. 10.Heparin. 11.Dilaudid. 12.Atrovent. 13.Zestril. 14.Mobic. 15.Glucophage. 16.Toprol-XL. 17.Vancomycin. 18.Multivitamins. 19.Narcan. 20.Pamelor. 21.Percocet. 22.Protonix. 23.Lyrica. 24.Seroquel. 25.Topamax. 26.Vancomycin. PHYSICAL EXAM: Patient is alert and oriented x3. Pulse is 83. Blood pressure 124/60, respiration 18, temperature 98.4, pulse ox 97% on 3 L. HEENT: Conjunctivae normal. NECK: No JVD. CARDIOVASCULAR: S1, S2 muffled. RESPIRATORY: Breath sounds diminished in the bases. Bilateral scattered rhonchi and crackles. ABDOMEN: Soft, obese, nontender. LEGS status post left above-knee amputation. NERVOUS SYSTEM: No focal deficits. LABS: WBC 8.3, hemoglobin 13.2, glucose 347. ASSESSMENT: 1. Cellulitis infection of the left foot ulcers nonhealing with MRSA sepsis, status post left above-knee amputation. 2. Wound culture showing Enterobacter cloacae, Klebsiella pneumonia and MRSA and blood culture showed MRSA. 3. Change in mental status, toxic metabolic encephalopathy. 4. Congestive heart failure with chronic systolic dysfunction, ejection fraction 35%. 5. Diabetes mellitus type 2 uncontrolled with hyperglycemia. 6. Hyponatremia. 7. Anemia. 8. History of chronic obstructive pulmonary disease, asthma. 9. History of cerebrovascular accident/transient ischemic attack. 10.Diabetes type 2. 11.History of deep vein thrombosis. 12.Gastroesophageal reflux disease. 13.Hyperlipidemia. 14.Hypertension. 15.History of degenerative joint disease. 16.History of pulmonary embolus. 17.History of migraines. 18.History of lupus anticoagulant. 19.History of pneumothorax. 20.History of peripheral edema. 21.History of adenoidectomy. 22.History of Isabell filter. 23.History of carpal tunnel syndrome. 24.Remote history of nicotine dependence. 25.Obesity with body mass index of 36.1. 26.FULL CODE. RECOMMENDATIONS AND DISCUSSION: This 64-year-old gentleman who presented with multiple complex medical issues, we will monitor the patient closely, continue the current medications, management and symptomatic treatment. We will continue to monitor. The patient is currently on cefepime. Continue the DVT prophylaxis. PT/OT evaluation. Supplement vitamins. donation worker to evaluate the home situation. Guarded prognosis because of multiple complex medical issues. Further recommendations to follow. Copy of dictation being forwarded to Dr. Emery, who is the primary physician. MMBRAULIOL / WILLN: [id number] / MTDD
[2020-03-07 16:24] LABS: ALT 39 U/L (4-49); AST 56 U/L (17-59); African American GFR (CKD) >90 (>60 ml/min/1.73 sqM); Albumin 2.3 g/dL (3.5-5.0); Alkaline Phosphatase 94 U/L (38-126); Anion Gap 5 mmol/L; Blood Urea Nitrogen 13 mg/dL (9-20); Calcium 7.4 mg/dL (8.4-10.2); Carbon Dioxide 27 mmol/L (22-30); Chloride 102 mmol/L (98-107); Glucose 262 mg/dL (74-99); Non-African American GFR(CKD) >90 (>60 ml/min/1.73 sqM); Potassium 3.9 mmol/L (3.5-5.1); Sodium 134 mmol/L (137-145); Total Bilirubin 0.7 mg/dL (0.2-1.3); Total Protein 4.6 g/dL (6.3-8.2)
[2020-03-07] MEDS: INSULIN NPH 300 UNIT/3 ML VIAL SQ SCH (16:47)
--- NOTE | 2020-03-07 16:47 | PN ---
PROGRESS NOTE DATE OF SERVICE: 03/07/2020 REASON FOR FOLLOWUP: Left diabetic foot infection with MRSA bacteremia. INTERVAL HISTORY: Patient is afebrile. The patient is status post left [id number] amputation yesterday by Vascular Surgery. The patient tolerated the procedure. The patient denies having any chest pain or shortness of breath or cough. No nausea, no vomiting. No abdominal pain. Pain to the left AKA stump is currently controlled. PHYSICAL EXAMINATION: Blood pressure 124/69 with a pulse of 83, temperature 98.5. He is 97% on 2 L nasal cannula. General description is a middle-aged male lying in bed in no distress. Respiratory system: Unlabored breathing, clear to auscultation anteriorly. Heart S1, S2. Regular rate and rhythm. Abdomen soft, no tenderness. LABS: No new labs have been obtained today. Blood culture repeat has been negative. DIAGNOSTIC IMPRESSION AND PLAN: Patient with left diabetic foot infection. Culture positive for Enterobacter, Klebsiella pneumonia with MRSA bacteremia. Followup blood cultures 03/01 has been negative. Patient is covered with cefepime, vancomycin to continue with infected part removed, he will not need to go on long-term antibiotic therapy. Continue supportive care. MMODL / IJN: [id number] /
[2020-03-07 17:06] LABS: Glucose,Whole Blood 229 mg/dL (75-99)
[2020-03-07] MEDS: oxyCODONE-APAP 10-325MG 1 EACH TAB PO PRN (18:08)
[2020-03-07 21:12] LABS: Glucose,Whole Blood 280 mg/dL (75-99)
[2020-03-07] MEDS: ATORVASTATIN 80 MG TAB PO SCH (21:30)
[2020-03-08] MEDS: HEPARIN SODIUM,PORCINE 5,000 UNIT/ML 1 ML VIAL SQ SCH ×4 (02:16→23:43)
[2020-03-08] MEDS: HYDROmorphone 1 MG/ML 1 ML SYRINGE IVP PRN ×5 (03:34→20:33)
[2020-03-08] MEDS: SODIUM CHLORIDE 0.9% 1,000 ML IV SCH (03:56)
[2020-03-08] MEDS: oxyCODONE-APAP 10-325MG 1 EACH TAB PO PRN (05:40)
[2020-03-08 07:10] LABS: Glucose,Whole Blood 187 mg/dL (75-99)
[2020-03-08] MEDS: CEFEPIME 2 GM in SODIUM CHLORIDE 0.9% 100 ML IVPB SCH ×2 (07:47→20:24)
[2020-03-08] MEDS: INSULIN ASPART (NovoLOG) 100 UNIT/ML VIAL SQ SCH ×4 (07:48→20:41)
[2020-03-08] MEDS: metFORMIN 500 MG TAB PO SCH ×2 (07:49→20:24)
[2020-03-08] MEDS: METOPROLOL SUCCINATE (ER) 50 MG TAB.ER.24H PO SCH (07:49)
[2020-03-08] MEDS: PREGABALIN 100 MG CAP PO SCH ×2 (07:49→20:23)
[2020-03-08] MEDS: AMIODARONE 200 MG TAB PO SCH ×2 (07:49→20:24)
[2020-03-08] MEDS: MULTIVITAMINS, THERA 1 EACH TAB PO SCH (07:49)
[2020-03-08] MEDS: ASPIRIN 81 MG PO SCH (07:49)
[2020-03-08] MEDS: PANTOPRAZOLE 40 MG TABLET PO SCH ×2 (07:49→20:23)
[2020-03-08] MEDS: FUROSEMIDE 40 MG TAB PO SCH ×2 (07:49→15:16)
[2020-03-08] MEDS: MELOXICAM 7.5 MG TAB PO SCH (07:50)
[2020-03-08] MEDS: lisinopriL 10 MG TAB PO SCH (07:50)
[2020-03-08] MEDS: TOPIRAMATE 25 MG TAB PO SCH ×2 (07:51→20:57)
[2020-03-08] MEDS: INSULIN NPH 300 UNIT/3 ML VIAL SQ SCH (08:05)
[2020-03-08 08:12] LABS: Basophils # (A) 0.1 k/uL (0-0.2); Basophils % (A) 1 %; Eosinophils # (A) 0.2 k/uL (0-0.7); Eosinophils % (A) 2 %; HCT 32.8 % (39.0-53.0); HGB 10.4 gm/dL (13.0-17.5); Lymphocytes # (A) 1.1 k/uL (1.0-4.8); Lymphocytes % (A) 13 %; MCH 29.9 pg (25.0-35.0); MCHC 31.8 g/dL (31.0-37.0); MCV 93.9 fL (80.0-100.0); Mean Platelet Volume 8.2; Monocytes # (A) 0.6 k/uL (0-1.0); Monocytes % (A) 6 %; Neutrophils # (A) 6.6 k/uL (1.3-7.7); Neutrophils % (A) 76 %; Platelet Count 284 k/uL (150-450); RDW 14.7 % (11.5-15.5); WBC 8.7 k/uL (3.8-10.6)
[2020-03-08 08:29] LABS: African American GFR (CKD) >90 (>60 ml/min/1.73 sqM); Anion Gap 5 mmol/L; Blood Urea Nitrogen 10 mg/dL (9-20); Calcium 7.7 mg/dL (8.4-10.2); Carbon Dioxide 27 mmol/L (22-30); Chloride 102 mmol/L (98-107); Glucose 172 mg/dL (74-99); Non-African American GFR(CKD) >90 (>60 ml/min/1.73 sqM); Potassium 4.1 mmol/L (3.5-5.1); Sodium 134 mmol/L (137-145)
[2020-03-08 08:34] LABS: INR 1.2 (<1.2); Prothrombin Time 12.5 sec (9.0-12.0)
[2020-03-08] MEDS ORDERED: VANCOMYCIN TROUGH DUE 1 EACH MISC MISCELLANE ONE (09:00)
[2020-03-08] MEDS: IPRATROPIUM 0.5 MG/2.5 ML NEBU INHALATION SCH ×4 (09:24→20:51)
[2020-03-08] MEDS: VANCOMYCIN 1,750 MG in SODIUM CHLORIDE 0.9% 500 ML 500 ML IVPB SCH (09:27)
[2020-03-08 11:45] LABS: Glucose,Whole Blood 194 mg/dL (75-99)
[2020-03-08] MEDS: FOLIC ACID 1 MG TAB PO SCH (15:09)
[2020-03-08] MEDS: THIAMINE 100 MG TAB PO SCH (15:09)
--- NOTE | 2020-03-08 16:43 | PN ---
PROGRESS NOTE DATE OF SERVICE: 03/08/2020 INTERVAL HISTORY: This is a 64-year-old gentleman who was admitted with cellulitis. Had a bony amputation on the left side. The patient had multiple organisms grown from the culture. The patient is on broad spectrum IV antibiotics. The patient is being closely monitored at this time. Infectious Disease and Cardiology following the patient closely. The INR is 1.2. Coumadin has been initiated. Amiodarone dose increased. Dr. Ordoñez has recommended followup cultures and recommended no new definitive long-term antibiotic therapy. The patient is being closely monitored at this time. Currently the patient is recommended ECF rehab, but however, apparently the and the patient with help of the home care and other support physical therapy will be able to manage at home, but we will await input from the protective services social worker as well as the surgical team. PAST MEDICAL HISTORY: Reviewed. REVIEW OF SYSTEMS: CARDIOVASCULAR: No angina or palpitations. RESPIRATORY: As mentioned earlier. GI: As mentioned earlier. : No dysuria. NERVOUS SYSTEM: No numbness or weakness. CURRENT MEDICATIONS: Reviewed and include Tylenol p.r.n., Ventolin, Cordarone, aspirin, Lipitor. Cefepime 2 grams, Colace, folic acid, Lasix, Haldol, heparin, Dilaudid, Humulin N, Atrovent, Zestril, Mobic, Glucophage, Toprol-XL, multivitamins. Narcan, Pamelor, Percocet, Protonix, Lyrica, Seroquel, vitamin B1,Topamax, vancomycin, Coumadin. PHYSICAL EXAMINATION: GENERAL: Patient is alert oriented times three. VITAL SIGNS: Pulse 75, blood pressure 116/74, respirations 16, temperature 98.2, pulse ox 94% on 3 L. HEENT: Conjunctivae normal. NECK: No jugular venous distention. RESPIRATORY: Breath sounds diminished at the bases. A few scattered rhonchi and crackles. HEART: S1 and S2, muffled. ABDOMEN: Soft, obese, no tenderness. EXTREMITIES: Status post left above knee amputation. NERVOUS: Higher functions as mentioned earlier. Moves all four limbs. No focal deficits. LYMPHATICS: No lymph nodes in the neck or axilla. SKIN: No rashes or bruises. JOINTS: No active deforming arthropathy. LABS: WBC 8.6, hemoglobin 10.4 sodium 134. ASSESSMENT: 1. Cellulitic infection of the left foot nonhealing with Methicillin resistant Staphylococcus aureus sepsis, status post above-knee amputation. 2. Wound culture showing Enterobacter cloacae, Klebsiella pneumoniae, Methicillin resistant Staphylococcus aureus, as well as blood culture showing Methicillin resistant Staphylococcus aureus. 3. Change in mental status, toxic metabolic encephalopathy. 4. Congestive heart failure with chronic systolic dysfunction ejection fraction 35%. 5. Diabetes mellitus type 2, uncontrolled with hyperglycemia. 6. Hyponatremia. 7. Anemia. 8. History of chronic obstructive pulmonary disease, asthma. 9. History of cerebrovascular accident and transient ischemic attack. 10.Diabetes mellitus type 2. 11.History of deep venous thrombosis. 12.History of gastroesophageal reflux disease. 13.Hypertension. 14.Hyperlipidemia. 15.History of degenerative joint disease. 16.History of pulmonary embolism. 17.History of migraine. 18.History of lupus anticoagulant. 19.History of pneumothorax. 20.History of peripheral edema. 21.History of adenoidectomy. 22.History of Isabell Filter. 23.History of carpal tunnel syndrome. 24.Remote history of nicotine dependence. 25.Obesity with body mass index of 36.1. 26.FULL CODE. RECOMMENDATION AND DISCUSSION: Recommend to continue current management, continue with monitoring and symptomatic treatment. Otherwise at this time I would recommend continuing the current antibiotics. Repeat labs as mentioned earlier. We will obtain a PT OT evaluation and protective services social worker recommendation regarding the discharge planning. Otherwise, prognosis guarded because of multiple complex medical issues. Further recommendations to follow. MMODL / IJN: [id number] /
[2020-03-08 17:05] LABS: Glucose,Whole Blood 201 mg/dL (75-99)
[2020-03-08] MEDS ORDERED: WARFARIN 1 MG TAB PO SCH (18:00)
[2020-03-08] MEDS: ATORVASTATIN 80 MG TAB PO SCH (20:23)
[2020-03-08 20:52] LABS: Glucose,Whole Blood 221 mg/dL (75-99)
[2020-03-08] MEDS: NORTRIPTYLINE 25 MG CAP PO SCH (20:57)
--- NOTE | 2020-03-09 01:04 | PN ---
PROGRESS NOTE DATE OF SERVICE: 03/08/2020 REASON FOR FOLLOWUP: Left diabetic foot infection and MRSA bacteremia. INTERVAL HISTORY: The patient is currently afebrile. Patient is breathing comfortably. Pain to the left AKA stump is currently controlled. No chest pain. No cough. No abdominal pain. No diarrhea. PHYSICAL EXAMINATION: Blood pressure 116/75 with a pulse of 75, temperature 98.3. He is 95% on 3 L nasal cannula. General description is a middle-aged male lying in bed in no distress. RESPIRATORY SYSTEM: Unlabored breathing, clear to auscultation anteriorly. HEART: S1, S2. Regular rate and rhythm. ABDOMEN: Soft, no tenderness. Left AKA stump is currently dressed. LABS: Hemoglobin 10.4, white count 8.7, BUN of 10, creatinine 0.78. Vancomycin trough less than five. DIAGNOSTIC IMPRESSION AND PLAN: Patient with left diabetic foot infection, polymicrobial with MRSA bacteremia. Patient is currently covered with the cefepime and vancomycin dose to be adjusted to keep the trough around 15 and will monitor clinical course closely. Continue supportive care. MMODL / IJN: [id number] /
[2020-03-09] MEDS: VANCOMYCIN 1,750 MG in SODIUM CHLORIDE 0.9% 500 ML 500 ML IVPB SCH ×2 (02:29→17:17)
[2020-03-09] MEDS: HYDROmorphone 1 MG/ML 1 ML SYRINGE IVP PRN ×5 (02:33→21:10)
[2020-03-09] MEDS: SODIUM CHLORIDE 0.9% 1,000 ML IV SCH (02:37)
[2020-03-09] MEDS: oxyCODONE-APAP 10-325MG 1 EACH TAB PO PRN ×3 (05:26→19:55)
[2020-03-09 07:05] LABS: Glucose,Whole Blood 129 mg/dL (75-99)
[2020-03-09 07:38] LABS: Basophils % (A) 0 %; Eosinophils # (A) 0.2 k/uL (0-0.7); Eosinophils % (A) 2 %; HCT 32.7 % (39.0-53.0); HGB 10.5 gm/dL (13.0-17.5); Lymphocytes # (A) 1.4 k/uL (1.0-4.8); Lymphocytes % (A) 15 %; MCH 30.2 pg (25.0-35.0); MCV 94.5 fL (80.0-100.0); Mean Platelet Volume 7.5; Monocytes # (A) 0.5 k/uL (0-1.0); Monocytes % (A) 6 %; Neutrophils # (A) 7.2 k/uL (1.3-7.7); Neutrophils % (A) 76 %; Platelet Count 331 k/uL (150-450); RBC 3.47 m/uL (4.30-5.90); RDW 14.8 % (11.5-15.5); WBC 9.5 k/uL (3.8-10.6)
[2020-03-09 07:44] LABS: INR 1.1 (<1.2); Prothrombin Time 11.4 sec (9.0-12.0)
[2020-03-09] MEDS: IPRATROPIUM 0.5 MG/2.5 ML NEBU INHALATION SCH ×4 (07:50→19:25)
[2020-03-09 07:58] LABS: African American GFR (CKD) >90 (>60 ml/min/1.73 sqM); Anion Gap 4 mmol/L; Blood Urea Nitrogen 12 mg/dL (9-20); Calcium 7.7 mg/dL (8.4-10.2); Carbon Dioxide 29 mmol/L (22-30); Chloride 101 mmol/L (98-107); Glucose 130 mg/dL (74-99); Non-African American GFR(CKD) >90 (>60 ml/min/1.73 sqM); Potassium 4.4 mmol/L (3.5-5.1); Sodium 134 mmol/L (137-145)
[2020-03-09] MEDS: INSULIN ASPART (NovoLOG) 100 UNIT/ML VIAL SQ SCH ×4 (08:04→21:10)
[2020-03-09] MEDS: HEPARIN SODIUM,PORCINE 5,000 UNIT/ML 1 ML VIAL SQ SCH ×3 (08:06→23:05)
[2020-03-09] MEDS: FUROSEMIDE 40 MG TAB PO SCH ×2 (08:07→16:45)
[2020-03-09] MEDS: MULTIVITAMINS, THERA 1 EACH TAB PO SCH (08:07)
[2020-03-09] MEDS: METOPROLOL SUCCINATE (ER) 50 MG TAB.ER.24H PO SCH (08:07)
[2020-03-09] MEDS: AMIODARONE 200 MG TAB PO SCH ×2 (08:07→21:10)
[2020-03-09] MEDS: metFORMIN 500 MG TAB PO SCH ×2 (08:07→21:09)
[2020-03-09] MEDS: CEFEPIME 2 GM in SODIUM CHLORIDE 0.9% 100 ML IVPB SCH ×2 (08:07→21:11)
[2020-03-09] MEDS: PANTOPRAZOLE 40 MG TABLET PO SCH ×2 (08:07→21:09)
[2020-03-09] MEDS: PREGABALIN 100 MG CAP PO SCH ×2 (08:07→21:10)
[2020-03-09] MEDS: lisinopriL 10 MG TAB PO SCH (08:07)
[2020-03-09] MEDS: ASPIRIN 81 MG PO SCH (08:07)
[2020-03-09] MEDS: TOPIRAMATE 25 MG TAB PO SCH ×2 (08:08→21:10)
[2020-03-09] MEDS: MELOXICAM 7.5 MG TAB PO SCH (08:50)
[2020-03-09] MEDS: INSULIN NPH 300 UNIT/3 ML VIAL SQ SCH (08:50)
--- NOTE | 2020-03-09 11:45 | P.PN ---
Progress Note - Text Patient had a left above-knee amputation today we have changed the dressing stump site is healing good no discharge or redness noted Plan is continue with antibiotic per infectious disease change her dressing every 48 hours patient will be going to the halfway with follow-up with me in my office in 2 weeks for removal of stitches
[2020-03-09] MEDS: FOLIC ACID 1 MG TAB PO SCH (11:48)
[2020-03-09] MEDS: THIAMINE 100 MG TAB PO SCH (11:48)
[2020-03-09 12:14] LABS: Glucose,Whole Blood 209 mg/dL (75-99)
[2020-03-09] MEDS: TAMSULOSIN 0.4 MG CAP.ER.24H PO SCH (13:03)
[2020-03-09 14:55] VITALS: BMI 35.0
[2020-03-09] MEDS ORDERED: VANCOMYCIN TROUGH DUE 1 EACH MISC MISCELLANE ONE (17:00)
[2020-03-09 17:11] LABS: Glucose,Whole Blood 176 mg/dL (75-99)
[2020-03-09] MEDS ORDERED: WARFARIN 5 MG TAB PO ONE (18:00)
--- NOTE | 2020-03-09 19:57 | P.PN ---
Subjective Progress Note Date: 03/09/20 Principal diagnosis: This is a 64 year old male who was recently admitted for cellulitis and is being closely monitored. Multiple medical consultations following including cardiolo gy, vascular surgery, and infectious disease. Patient underwent left above the knee amputation. Patient is maintained on IV antibiotics in the form of Cefepime and vancomycin and will continue at this time as cultures finalized showing enterobacter cloacae, klebsiella pneumonia, and MRSA. Patient also had MRSA bacteremia and repeat cultures have been negative. Will need to discuss with infectious disease about IV antibiotics in the outpatient setting. Patient continues to be reluctant to go to F although was evaluated by PT/OT and is recommending sub acute rehab. Family also stating that she is unable to care for him in the home. Case management and social work following and working on [employer] at [facility]. Review of systems: Constitutional: No reports of fatigue, no reports of fevers or chills Cardiovascular: No reports of chest pain or palpitations Respiratory: No reports of shortness of breath, occasional cough GI: no reports of nausea or vomiting : no reports of dysuria or retention Neurovascular: Reports weakness, no reports of numbness Objective - Vital Signs Vital signs: Vital Signs Temp 98.3 F 03/09/20 11:50 Pulse 74 03/09/20 11:50 Resp 18 03/09/20 11:50 BP 114/68 03/09/20 11:50 Pulse Ox 95 03/09/20 11:50 Intake & Output 03/08/20 03/09/20 03/09/20 18:59 06:59 18:59 Intake Total 600 Output Total 1500 2400 2800 Balance -900 -2400 -2800 Weight 130.5 kg 130.5 kg Intake: Intake, IV Titration 600 Amount Cefepime 2 gm In Sodium 100 Chloride 0.9% 100 ml @ 25 mls/hr IVPB Q12HR [facility]ENE Rx #:[id number] Vancomycin 1,750 mg In 500 Sodium Chloride 0.9% 500 ml 500 ml @ 167 mls/hr IVPB Q16H HELENE Rx#: [id number] Output: Urine 1500 2400 2800 Other: Voiding Method Indwelling Catheter Indwelling Catheter Indwelling Catheter - Exam Gen: This is a 64 year old male awake, alert and oriented x3, well developed, well nourished, obese. Temp is 98.3F, pulse is 74, respirations are 18, blood pressure is 114/68, oxygen saturation is 95% on room air. HEENT: Head is atraumatic, normocephalic. Pupils equal, round. Sclerae is anicteric. NECK: Supple. No JVD. No lymphadenopathy. No thyromegaly. LUNGS: Diminished breath sounds bilaterally with a few scattered crackles and rhonchi noted. No intercostal retractions. HEART: S1, S2 are muffled ABDOMEN: Soft. Obese. Bowel sounds are present. No masses. No tenderness. EXTREMITIES: No pedal edema. No calf tenderness. Status post left AKA stump dressing that is dry and intact NEUROLOGICAL: Patient is awake, alert and oriented x3. Diffusely weak - Labs CBC & Chem 7: 03/09/20 06:47 03/09/20 06:47 Labs: Abnormal Lab Results - Last 24 Hours (Table) 03/08/20 03/08/20 03/09/20 Range/Units 17:04 20:34 06:47 RBC 3.47 L (4.30-5.90) m/uL Hgb 10.5 L (13.0-17.5) gm/dL Hct 32.7 L (39.0-53.0) % Sodium (137-145) mmol/L Glucose (74-99) mg/dL POC Glucose (mg/dL) 201 H 221 H (75-99) mg/dL Calcium (8.4-10.2) mg/dL 03/09/20 03/09/20 03/09/20 Range/Units 06:47 07:00 11:54 RBC (4.30-5.90) m/uL Hgb (13.0-17.5) gm/dL Hct (39.0-53.0) % Sodium 134 L (137-145) mmol/L Glucose 130 H (74-99) mg/dL POC Glucose (mg/dL) 129 H 209 H (75-99) mg/dL Calcium 7.7 L (8.4-10.2) mg/dL Microbiology - Last 24 Hours (Table) 03/03/20 08:07 Blood Culture - Final Blood No Growth after 144 hours Assessment and Plan Assessment: Cellulitic infection of the left foot nonhealing with MRSA, sepsis, status post [id number] amputation Wound culture showing Enterobacter Sproul him a Klebsiella pneumonia, methicillin-resistant Staphylococcus aureus, as well as blood culture showing MRSA Change in mental status, toxic metabolic encephalopathy Congestive heart failure with chronic systolic dysfunction ejection fraction 35% Diabetes mellitus type 2, uncontrolled with hyperglycemia Hyponatremia Anemia History of chronic obstructive pulmonary disease, asthma History of CVA and TIA Diabetes mellitus type 2 History of DVT History of gastroesophageal reflux disease Hypertension Hyperlipidemia History of degenerative joint disease history of pulmonary embolism history of migraine history of lupus anticoagulant History of pneumothorax History of peripheral edema History of adenoidectomy History of Isabell filter history of carpal tunnel syndrome Remote history of nicotine dependence obesity with a BMI of 36.1 Full code Recommendations and discussion: Recommend to continue current medications, management, and symptomatic treatment. Patient is being followed by cardiology, vascular surgery, and infectious disease. Continue with IV antibiotics. Case management and social work following and working on an accepting ECF facility placement. Will repeat am labs and monitor INR closely as patient is on coumadin which has been resumed. INR today was 1.1. Due to multiple complex medical issues, prognosis is guarded. Further recommendations to follow. Possible discharge in 24-48 hours.
[2020-03-09 20:31] LABS: Glucose,Whole Blood 255 mg/dL (75-99)
[2020-03-09] MEDS: NORTRIPTYLINE 25 MG CAP PO SCH (21:09)
[2020-03-09] MEDS: ATORVASTATIN 80 MG TAB PO SCH (21:09)
--- NOTE | 2020-03-09 22:39 | PN ---
PROGRESS NOTE DATE OF SERVICE: 03/09/2020 REASON FOR FOLLOWUP: Left diabetic foot infection and MRSA bacteremia. INTERVAL HISTORY: The patient is currently afebrile. The patient is breathing comfortably. The patient denies having any chest pain or shortness of breath or cough. No nausea or vomiting. No abdominal pain. Pain to the left AK stump is currently controlled. PHYSICAL EXAMINATION: Blood pressure 114/68 with a pulse of 74, temperature 98.3. He is 95% on room air. General description is a middle-aged male lying in bed in no distress. RESPIRATORY SYSTEM: Unlabored breathing. Clear to auscultation anteriorly. HEART: S1, S2. Regular rate and rhythm. ABDOMEN: Soft. No tenderness. Left AK stump looks clean. There is no cellulitis. LABS: Hemoglobin is 10.5, white count 9.5, BUN of 12, creatinine 0.79. Blood culture repeat on 03/01 and 03/02 and 03/03 are negative. DIAGNOSTIC IMPRESSION AND PLAN: Patient with left diabetic foot infection. Local culture with Enterobacter and MRSA and the patient also has MRSA bacteremia. As the patient did have an infected part removed, he will not need to be on long-term antibiotic therapy. However, because of his bacteremia, we recommend vancomycin, Pharmacy to dose, for another 10 days, for which a PICC line will be placed. Plan of care was discussed with the nurse practitioner for the admitting team. KIRAN / KAYLIN: [id number] /
[2020-03-10] MEDS: HYDROmorphone 1 MG/ML 1 ML SYRINGE IVP PRN ×4 (02:57→15:43)
[2020-03-10] MEDS: SODIUM CHLORIDE 0.9% 1,000 ML IV SCH (02:57)
[2020-03-10 07:22] LABS: Glucose,Whole Blood 146 mg/dL (75-99)
[2020-03-10] MEDS: IPRATROPIUM 0.5 MG/2.5 ML NEBU INHALATION SCH ×3 (07:38→11:25)
[2020-03-10] MEDS: FUROSEMIDE 40 MG TAB PO SCH (07:57)
[2020-03-10] MEDS: PREGABALIN 100 MG CAP PO SCH (07:57)
[2020-03-10] MEDS: MULTIVITAMINS, THERA 1 EACH TAB PO SCH (07:57)
[2020-03-10] MEDS: metFORMIN 500 MG TAB PO SCH (07:58)
[2020-03-10] MEDS: ASPIRIN 81 MG PO SCH (07:58)
[2020-03-10] MEDS: METOPROLOL SUCCINATE (ER) 50 MG TAB.ER.24H PO SCH (07:58)
[2020-03-10] MEDS: PANTOPRAZOLE 40 MG TABLET PO SCH (07:58)
[2020-03-10] MEDS: AMIODARONE 200 MG TAB PO SCH (07:58)
[2020-03-10] MEDS: MELOXICAM 7.5 MG TAB PO SCH (07:58)
[2020-03-10] MEDS: lisinopriL 10 MG TAB PO SCH (07:58)
[2020-03-10] MEDS: TAMSULOSIN 0.4 MG CAP.ER.24H PO SCH (07:59)
[2020-03-10] MEDS: CEFEPIME 2 GM in SODIUM CHLORIDE 0.9% 100 ML IVPB SCH (07:59)
[2020-03-10] MEDS: HEPARIN SODIUM,PORCINE 5,000 UNIT/ML 1 ML VIAL SQ SCH (07:59)
[2020-03-10] MEDS: INSULIN ASPART (NovoLOG) 100 UNIT/ML VIAL SQ SCH ×2 (07:59→13:20)
[2020-03-10] MEDS: TOPIRAMATE 25 MG TAB PO SCH (08:00)
[2020-03-10 08:46] LABS: Basophils % (A) 1 %; Eosinophils # (A) 0.2 k/uL (0-0.7); Eosinophils % (A) 3 %; HCT 33.5 % (39.0-53.0); HGB 10.6 gm/dL (13.0-17.5); Lymphocytes # (A) 1.3 k/uL (1.0-4.8); Lymphocytes % (A) 17 %; MCH 30.3 pg (25.0-35.0); MCHC 31.7 g/dL (31.0-37.0); MCV 95.4 fL (80.0-100.0); Mean Platelet Volume 7.5; Monocytes # (A) 0.5 k/uL (0-1.0); Monocytes % (A) 6 %; Neutrophils # (A) 5.5 k/uL (1.3-7.7); Neutrophils % (A) 71 %; Platelet Count 353 k/uL (150-450); RBC 3.51 m/uL (4.30-5.90); RDW 14.9 % (11.5-15.5); WBC 7.7 k/uL (3.8-10.6)
[2020-03-10 08:55] LABS: INR 1.1 (<1.2); Prothrombin Time 11.3 sec (9.0-12.0)
[2020-03-10] MEDS: INSULIN NPH 300 UNIT/3 ML VIAL SQ SCH (09:14)
[2020-03-10 09:15] LABS: African American GFR (CKD) >90 (>60 ml/min/1.73 sqM); Anion Gap 7 mmol/L; Blood Urea Nitrogen 15 mg/dL (9-20); Calcium 8.1 mg/dL (8.4-10.2); Carbon Dioxide 29 mmol/L (22-30); Chloride 100 mmol/L (98-107); Glucose 149 mg/dL (74-99); Non-African American GFR(CKD) >90 (>60 ml/min/1.73 sqM); Sodium 136 mmol/L (137-145)
[2020-03-10] MEDS: VANCOMYCIN 1,750 MG in SODIUM CHLORIDE 0.9% 500 ML 500 ML IVPB SCH ×2 (09:18→12:11)
[2020-03-10] MEDS ORDERED: LIDOCAINE 1% INJ 10MG/ML (20 ML MDV) SQ ONE (10:55)
[2020-03-10 11:42] LABS: Glucose,Whole Blood 140 mg/dL (75-99)
--- NOTE | 2020-03-10 13:01 | P.DS ---
Providers Date of admission: 02/29/20 02:21 Expected date of discharge: 03/10/20 Attending physician: Shadia Alvarez Consults: 02/29/20 02:18 Consult Physician Routine Consulting Provider: Sherman Ordoñez Consult Reason/Comments: Cellulitis Do you want consulting provider notified?: Yes 02/29/20 02:19 Consult Physician Routine Consulting Provider: Franko Mcintyre Consult Reason/Comments: Left foot ulcer Do you want consulting provider notified?: Yes 03/03/20 18:13 Consult Physician Stat Consulting Provider: Madonna Ponce Consult Reason/Comments: or cleareance Do you want consulting provider notified?: Yes Primary care physician: Kristin Dixon Hospital Course: Final diagnosis Cellulitic infection of the left foot nonhealing with MRSA, sepsis, status post dqhqg-[id number]-[id number] amputation Covid 19 ruled out, testing was negative Wound culture showing Enterobacter [place] him a Klebsiella pneumonia, methicillin-resistant Staphylococcus aureus, as well as blood culture showing MRSA Change in mental status, toxic metabolic encephalopathy Congestive heart failure with chronic systolic dysfunction ejection fraction 35% Diabetes mellitus type 2, uncontrolled with hyperglycemia Hyponatremia Anemia History of chronic obstructive pulmonary disease, asthma History of CVA and TIA Diabetes mellitus type 2 History of DVT History of gastroesophageal reflux disease Hypertension Hyperlipidemia History of degenerative joint disease history of pulmonary embolism history of migraine history of lupus anticoagulant History of pneumothorax History of peripheral edema History of adenoidectomy History of Isabell filter history of carpal tunnel syndrome Remote history of nicotine dependence obesity with a BMI of 36.1 Full code Discharge disposition Patient is being discharged in a stable condition with guarded prognosis to [facility] for continued PT/OT therapy. Patient will follow-up with Dr. Dixon in the outpatient setting upon discharge. Patient also instructed to follow-up with Dr. Heaton, cardiology, and vascular surgery Dr. Mcintyre in 2 weeks for suture removal in the outpatient setting. Patient is to continue with IV antibiotics in the form of vancomycin with pharmacy to dose for the next 10 days. Total time taken is greater than 35 minutes. History of present illness This is a 64-year-old male who was recently admitted with cellulitis of the left lower extremity and was being closely monitored. Multiple medical consultations following including cardiology, vascular surgery, infectious disease. Patient underwent left [id number] amputation with Dr. Mcinytre and will be following up in his clinic in 2 weeks for reevaluation along with suture removal of the left AKA stump. Patient continues with local wound care to the area with dressing changes every 48 hours or if becomes soiled. Given patient's history of diabetes and wound infections in the possibility of MRSA of the left lower extremity patient will continue on IV antibiotics in the form of vancomycin with pharmacy to dose for the next 10 days. Patient did receive a PICC line. Patient is to follow-up at the wound care center within the next 10 days. Patient's Coumadin was reinitiated and current INR is 1.1 and a prescription was provided to monitor INR levels closely for therapeutic levels between 2 and 3. Patient will also continue with Accu-Cheks before meals and at bedtime and treat accordingly with sliding scale. Patient is to continue with PT/OT therapy for strength and mobility. Patient had Covid testing which was negative. Patient will be transferred to [facility] today and family is agreeable with this plan. Currently no reports of chest pain, shortness of breath, or palpitations. Patient is afebrile. No reports of nausea or vomiting and patient is tolerating diet. Patient will be discharged to [facility] on the [place] today. Guarded prognosis. On exam vital signs are stable. Temp is 98F, Pulse is 59, respirations are 20, blood pressure is 118/72, oxygen saturation is 98% on 3 L via nasal cannula. Cardio S1, S2 are muffled. Respiratory system shows diminished breath sounds at the bases with no wheezing or rhonchi noted. Abdomen is soft, obese, and nontender. Nervous system shows diffuse weakness. Please refer to medication reconciliation sheet for a list of medications. Patient Condition at Discharge: Fair Plan - Discharge Summary Discharge Rx Participant: No New Discharge Prescriptions: New Amiodarone [Cordarone] 200 mg PO DAILY tab Docusate [Colace] 100 mg PO DAILY PRN cap PRN Reason: Constipation Tamsulosin [Flomax] 0.4 mg PO PC-BRKFST cap.er.24h Folic Acid 1 mg PO DAILY@1200 tab Insulin NPH [humuLIN N] 20 unit SQ DAILY vial Furosemide [Lasix] 40 mg PO BID@0900,1600 tab Pregabalin [Lyrica] 300 mg PO BID #6 cap INSULIN ASPART (NovoLOG) [NovoLOG (formulary)] 0 unit SQ ACHS vial QUEtiapine [SEROquel] 25 mg PO HS PRN tab PRN Reason: Agitation Vancomycin 1,750 mg IVPB Q16H vial Albuterol Nebulized [Ventolin Nebulized] 2.5 mg INHALATION RT-DAILY PRN ml PRN Reason: Shortness Of Breath Thiamine [Vitamin B-1] 100 mg PO DAILY@1200 tab lisinopriL [Zestril] 10 mg PO DAILY tab Continue metFORMIN HCL [Glucophage] 500 mg PO BID Atorvastatin [Lipitor] 80 mg PO HS Topiramate [Topamax] 25 mg PO BID Multivitamins, Thera [Multivitamin (formulary)] 1 tab PO DAILY Omeprazole [PriLOSEC] 20 mg PO BID Nortriptyline [Pamelor] 50 mg PO HS Aspirin 81 mg PO DAILY 30 Days #30 chew Loratadine 10 mg PO DAILY Spiriva Respimat 1.25mcg/Humphreys 2 spray INHALATION RT-BID Acetaminophen Tab [Tylenol] 650 mg PO Q6HR PRN tab PRN Reason: Mild Pain Or Fever > 100.5 Celecoxib [CeleBREX] 200 mg PO DAILY Warfarin [Coumadin] 4.5 mg PO SUTH Warfarin [Coumadin] 3 mg PO MOTUWEFRSA Metoprolol Succinate (ER) [Toprol XL] 50 mg PO DAILY oxyCODONE-APAP 10-325MG [Percocet 10-325 mg] 1 tab PO Q6HR PRN #10 tab PRN Reason: Pain Discontinued Pregabalin [Lyrica] 300 mg PO BID Furosemide [Lasix] 40 mg PO DAILY 30 Days #30 tablet Insulin NPH Human Isophane [NovoLIN N] See Protocol SQ DAILY Discharge Medication List Atorvastatin [Lipitor] 80 mg PO HS 01/09/14 [History] Topiramate [Topamax] 25 mg PO BID 01/09/14 [History] metFORMIN HCL [Glucophage] 500 mg PO BID 01/09/14 [History] Multivitamins, Thera [Multivitamin (formulary)] 1 tab PO DAILY 11/15/17 [History] Nortriptyline [Pamelor] 50 mg PO HS 08/15/19 [History] Omeprazole [PriLOSEC] 20 mg PO BID 08/15/19 [History] Aspirin 81 mg PO DAILY 30 Days #30 chew 08/26/19 [Rx] Loratadine 10 mg PO DAILY 10/30/19 [History] Spiriva Respimat 1.25mcg/Humphreys 2 spray INHALATION RT-BID 10/31/19 [History] Acetaminophen Tab [Tylenol] 650 mg PO Q6HR PRN tab 11/04/19 [Rx] Celecoxib [CeleBREX] 200 mg PO DAILY 02/29/20 [History] Metoprolol Succinate (ER) [Toprol XL] 50 mg PO DAILY 02/29/20 [History] Warfarin [Coumadin] 3 mg PO MOTUWEFRSA 02/29/20 [History] Warfarin [Coumadin] 4.5 mg PO SUTH 02/29/20 [History] Amiodarone [Cordarone] 200 mg PO DAILY tab 03/07/20 [Rx] Albuterol Nebulized [Ventolin Nebulized] 2.5 mg INHALATION RT-DAILY PRN ml 03/10/20 [Rx] Docusate [Colace] 100 mg PO DAILY PRN cap 03/10/20 [Rx] Folic Acid 1 mg PO DAILY@1200 tab 03/10/20 [Rx] Furosemide [Lasix] 40 mg PO BID@0900,1600 tab 03/10/20 [Rx] INSULIN ASPART (NovoLOG) [NovoLOG (formulary)] 0 unit SQ ACHS vial 03/10/20 [R x] Insulin NPH [humuLIN N] 20 unit SQ DAILY vial 03/10/20 [Rx] Pregabalin [Lyrica] 300 mg PO BID #6 cap 03/10/20 [Rx] QUEtiapine [SEROquel] 25 mg PO HS PRN tab 03/10/20 [Rx] Tamsulosin [Flomax] 0.4 mg PO PC-BRKFST cap.er.24h 03/10/20 [Rx] Thiamine [Vitamin B-1] 100 mg PO DAILY@1200 tab 03/10/20 [Rx] Vancomycin 1,750 mg IVPB Q16H vial 03/10/20 [Rx] lisinopriL [Zestril] 10 mg PO DAILY tab 03/10/20 [Rx] oxyCODONE-APAP 10-325MG [Percocet 10-325 mg] 1 tab PO Q6HR PRN #10 tab 03/10/20 [Rx] Follow up Appointment(s)/Referral(s): Kristin Dixon DO [Primary Care Provider] - 1-2 days Franko Mcintyre MD [STAFF PHYSICIAN] - 2 Weeks Joshua Heaton MD [STAFF PHYSICIAN] - 2 Weeks GIL Visiting Nurse, [NON-STAFF] - Ambulatory/Diagnostic Orders: Basic Metabolic Panel [LAB.AMB] Time Frame: 2 Days, Location: None Selected Prothrombin Time INR [LAB.AMB] Time Frame: 2 Days, Location: None Selected Activity/Diet/Wound Care/Special Instructions: Patient is going to [facility] on the [place] Activity as tolerated Continue with IV antibiotics in the form of vancomycin for the next 10 days Follow-up with vascular surgery in the outpatient setting in 2 weeks for removal of stitches to the left AKA stump Follow-up with infectious disease in the outpatient setting Follow-up with primary care provider upon discharge Repeat labs to monitor INR closely Continue monitoring blood sugars before meals at bedtime and treat accordingly Continue current consistent carb heart healthy diet Continue with local wound care to the left AKA stump with dressing changes every 48 hours or if becomes soiled Discharge Disposition: TRANSFER TO SNF/ECF
[2020-03-10 13:13] VITALS: BP 119/66; PULSE 64; RESP 18; TEMP 97.9
[2020-03-10] MEDS: THIAMINE 100 MG TAB PO SCH (13:20)
[2020-03-10] MEDS: FOLIC ACID 1 MG TAB PO SCH (13:20)
--- NOTE | 2020-03-10 16:02 | PN ---
PROGRESS NOTE DATE OF SERVICE: 03/10/2020 REASON FOR FOLLOWUP: Left diabetic foot infection and MRSA bacteremia. INTERVAL HISTORY: Patient is currently afebrile. The patient is breathing comfortably. Denies having any chest pain, cough, no nausea, no vomiting, no abdominal pain, pain in the left AKA stump is currently controlled. PHYSICAL EXAMINATION: Blood pressure 119/66, pulse of 64, temperature 97.9. He is 92% on 2 L nasal cannula. General description is an middle-aged male, lying in bed in no distress. RESPIRATORY SYSTEM: Unlabored breathing, clear to auscultation anteriorly. HEART: S1, S2. Regular rate and rhythm. ABDOMEN: Soft, no tenderness. The left AKA stump is currently dressed. No obvious drainage on the dressing. LABS: Hemoglobin is 10.8, white count 7.7, BUN of 15, creatinine 0.87. Blood culture repeat has been negative. DIAGNOSTIC IMPRESSION AND PLAN: Patient with left diabetic foot infection. Culture positive for Enterobacter, Klebsiella, MRSA with MRSA bacteremia with infected part removed. Antibiotic therapy started to worsen with bacteremia with a 10 day course of IV vancomycin, pharmacy to dose with careful monitor his kidney function. Family at the bedside, multiple questions were answered. MMODL / IJN: [id number] /
--- NOTE | 2020-03-10 16:06 | IR ---
EXAMINATION TYPE: IR cvc insert >=5 years DATE OF EXAM: 03/10/2020 COMPARISON: Chest radiograph 03/02/2020 CLINICAL HISTORY: Infection, need for long-term antibiotics PAPER BOX CUTTER: Dr. Rufina Moreira PROCEDURE: The procedure was discussed with the patient. The risks, complications, benefits, and alternatives we re discussed and any questions were answered. Informed consent was obtained. The patient was placed supine. Maximal barrier technique utilized. After informed consent, the skin o verlying the left basilic vein was localized with ultrasound and noted to be compressible and patent. An ultrasound image was obtained and submitted on the patient's chart. Sterile technique utilized w ith the ultrasound machine. The skin overlying was prepped and draped and Lidocaine used for local an esthesia. Access was gained to the vein under ultrasound guidance with a 21 gauge needle and a 0.018 inch wire was advanced. A skin brooks was made with a scalpel. Access site was dilated with [place]. 4 FR single lumen catheter tailored to the appropriate length of 53 cm and advanced such that the distal tip is at the cavoatrial junction. Spot image was obtained verifying PICC placement. Ivory ter was fixed to the skin and a sterile dressing was placed following hemostasis. Catheter was aspira michael and flushed with saline. Patient was discharged from the radiology department in stable condition without immediate complication. Fluoro time: 0.3 minutes Fluoroscopic images obtained: 9 IMPRESSION: Status post ultrasound-guided and fluoroscopic-guided PICC placement, ready for use.
[2020-03-10] MEDS ORDERED: WARFARIN 5 MG TAB PO ONE (18:00)
--- NOTE | 2020-03-11 09:06 | CDI ---
Documentation Clarification Form Date: 03/11/20 From: Steph Tello Phone: If you have a question about this query, please contact Joanie Bhatt, Virtual Assistant at [phone] between 8am and 5pm. Admit Date: 02/29/20 Discharge Date: 03/10/20 Patient Name: POWER BAIN Visit Number: [id number] ATTENTION: The Clinical Documentation Specialists (CDI) and [facility] Coding Staff appreciate your assistance in clarifying documentation. Please respond to the clarification below the line at the bottom and electronically sign. The CDI & [facility] Coding staff will review the response and follow-up if needed. Please note: Queries are made part of the Legal Health Record. If you have any questions, please contact the author of this message via ITS. Dear Dr. Shadia Alvarez, Anemia is documented in progress notes dated 03/07, 03/08, 03/09 and discharge summary. History/Risk Factors: MRSA sepsis, acute on chronic systolic CHF, DM Type II w multiple issues, lupus anticoagulant syndrome, toxic encephalopathy, chronic venous hypertension w ulcer of left foot, cellulitis, hyponatremia Clinical indicators: Patient had AKA, left on 03/06. Hemoglobin: 14.6, 13.0, 12.3, 13.2, 10.4, 10.5, 10.6 Hematocrit: 43.5, 38.9, 37.7, 40.5, 32.8, 32.7, 33.5 Anesthesia not available to verify blood loss. Treatment: IV fluids w IV antibiotic, Folic acid 1 mg PO In order to capture the severity of condition, please clarify the type of anemia and etiology if known:. Acute blood loss anemia Iron deficiency anemia Unable to determine Other, please specify Unable to determine MTDD
--- NOTE | 2020-03-11 09:13 | CDI ---
Documentation Clarification Form Date: 03/11/20 From: Steph Tello Phone: If you have a question about this query, please contact Joanie Bhatt, Respite Care Provider at [phone] between 8am and 5pm. Admit Date: 02/29/20 Discharge Date: 03/10/20 Patient Name: POWER BAIN Visit Number: [id number] ATTENTION: The Clinical Documentation Specialists (CDI) and [facility] Coding Staff appreciate your assistance in clarifying documentation. Please respond to the clarification below the line at the bottom and electronically sign. The CDI & [facility] Coding staff will review the response and follow-up if needed. Please note: Queries are made part of the Legal Health Record. If you have any questions, please contact the author of this message via ITS. Dear Dr. Franko Monzon, Documentation in the Operative Report included: Left above-knee amputation History/Risk factors: MRSA sepsis, acute on chronic systolic CHF, DM Type II w multiple issues, lupus anticoagulant syndrome, toxic encephalopathy, chronic venous hypertension w ulcer of left foot, cellulitis, hyponatremia Pre-Operative Diagnosis: Chronic wound, left foot. Venous hypertension with superficial ulcer, left lower extremity. History of chronic deep venous thrombosis. Postoperative Diagnosis: Chronic wound, left foot. Venous hypertension with superficial ulcer, left lower extremity. History of chronic deep venous thrombosis. Clinical Indicators: Large wound on his plantar aspect of the left foot and also patient has a Charot foot. In order to capture the severity of condition, please specify the following: Clarify the level of the left above the knee amputation: High Mid Low Mid level above knee amputation MTDD
--- NOTE | 2020-03-11 09:19 | CDI ---
Documentation Clarification Form Date: 03/11/20 From: Steph Tello Phone: If you have a question about this query, please contact oJanie Bhatt, Patient Scheduler at [phone] between 8am and 5pm. Admit Date: 02/29/20 Discharge Date: 03/10/20 Patient Name: POWER BAIN Visit Number: [id number] ATTENTION: The Clinical Documentation Specialists (CDI) and [facility] Coding Staff appreciate your assistance in clarifying documentation. Please respond to the clarification below the line at the bottom and electronically sign. The CDI & [facility] Coding staff will review the response and follow-up if needed. Please note: Queries are made part of the Legal Health Record. If you have any questions, please contact the author of this message via ITS. Dear Dr. Franko Monzon, Per your procedure note, a debridement was performed on 02/28. History/Risk Factors:MRSA sepsis, acute on chronic systolic CHF, DM Type II w multiple issues, lupus anticoagulant syndrome, toxic encephalopathy, chronic venous hypertension w ulcer of left foot, cellulitis, hyponatremia Clinical Indicators: Left foot ulcer X 2. Treatment:Uusing the sharp scissor we opened up the tunneling between the 2 ulcer debridement last skin was excised which scissor bleeding was noted which was controlled then wound was irrigated with saline Aquacel silver rope applied to the wound dressing applied change her dressing every 48 hours using Aquacel Five elements required for accurate and compliant documentation of a debridement: 1. Technique used (e.g., excisional, excised, cutting, etc.) 2. Instrument(s) used (e.g., scalpel, curette, etc.) 3. Nature of the tissue removed (e.g., necrotic, devitalized tissues, non- viable tissue, etc.) 4. Appearance and size of the wound (e.g., down to fresh bleeding tissue, 7cm x 10cm, etc.) 5. Depth of the debridement* (e.g., skin, subcutaneous tissue, fascia, muscle, bone, etc.) In order to capture the severity of condition and code the appropriate procedure; could you please document the following: The level of the excisional debridement: Skin Subcutaneous tissue and fascia Tendons Muscles Bone Other; please specify Unable to determine MTDD
--- NOTE | 2020-03-23 10:56 | CDI ---
Documentation Clarification Form Date: 03/11/20 From: Steph Tello Phone: If you have a question about this query, please contact Joanie Bhatt, Sorting And Folding Supervisor at [phone] between 8am and 5pm. Admit Date: 02/29/20 Discharge Date: 03/10/20 Patient Name: POWER BAIN Visit Number: [id number] ATTENTION: The Clinical Documentation Specialists (CDI) and [facility] Coding Staff appreciate your assistance in clarifying documentation. Please respond to the clarification below the line at the bottom and electronically sign. The CDI & [facility] Coding staff will review the response and follow-up if needed. Please note: Queries are made part of the Legal Health Record. If you have any questions, please contact the author of this message via ITS. Dear Dr. Franko Monzon, Per your procedure note, a debridement was performed on 02/28. History/Risk Factors:MRSA sepsis, acute on chronic systolic CHF, DM Type II w multiple issues, lupus anticoagulant syndrome, toxic encephalopathy, chronic venous hypertension w ulcer of left foot, cellulitis, hyponatremia Clinical Indicators: Left foot ulcer X 2. Treatment:Uusing the sharp scissor we opened up the tunneling between the 2 ulcer debridement last skin was excised which scissor bleeding was noted which was controlled then wound was irrigated with saline Aquacel silver rope applied to the wound dressing applied change her dressing every 48 hours using Aquacel Five elements required for accurate and compliant documentation of a debridement: 1. Technique used (e.g., excisional, excised, cutting, etc.) 2. Instrument(s) used (e.g., scalpel, curette, etc.) 3. Nature of the tissue removed (e.g., necrotic, devitalized tissues, non- viable tissue, etc.) 4. Appearance and size of the wound (e.g., down to fresh bleeding tissue, 7cm x 10cm, etc.) 5. Depth of the debridement* (e.g., skin, subcutaneous tissue, fascia, muscle, bone, etc.) In order to capture the severity of condition and code the appropriate procedure; could you please document the following: The level of the excisional debridement: Skin Subcutaneous tissue and fascia Tendons Muscles Bone Other; please specify Unable to determine Excisional Debridement subcutaneous tissue MTDD
== END 2020-03-10 15:51 | DRG 853 ==
LOC: EC 22:30 → 4SSUR 02-29 02:21 → 3SCARD 03-03 16:41 → 5NMEDONC 03-06 14:19
PROVIDERS: ADMIT Hospitalist; ATTEND Hospitalist
PROC: 0JBR0ZZ Excision of Left Foot Subcutaneous Tissue and Fascia, Open Approach (ICD-10-PCS; 2020-02-29)
PROC: B41D1ZZ Fluoroscopy of Aorta and Bilateral Lower Extremity Arteries using Low Osmolar Contrast (ICD-10-PCS; principal; 2020-03-03 15:30)
PROC: 0Y6D0Z2 Detachment at Left Upper Leg, Mid, Open Approach (ICD-10-PCS; 2020-03-06)
PROC: 02HV33Z Insertion of Infusion Device into Superior Vena Cava, Percutaneous Approach (ICD-10-PCS; 2020-03-10)
DX: A41.02 Sepsis due to Methicillin resistant Staphylococcus aureus (principal); I50.23 Acute on chronic systolic (congestive) heart failure; G92 Toxic encephalopathy; E11.52 Type 2 diabetes mellitus with diabetic peripheral angiopathy with gangrene; D68.62 Lupus anticoagulant syndrome; F05 Delirium due to known physiological condition; I87.312 Chronic venous hypertension (idiopathic) with ulcer of left lower extremity; L97.429 Non-pressure chronic ulcer of left heel and midfoot with unspecified severity; E87.1 Hypo-osmolality and hyponatremia; L03.116 Cellulitis of left lower limb; E11.610 Type 2 diabetes mellitus with diabetic neuropathic arthropathy; L97.529 Non-pressure chronic ulcer of other part of left foot with unspecified severity; E11.621 Type 2 diabetes mellitus with foot ulcer; E11.628 Type 2 diabetes mellitus with other skin complications; E11.40 Type 2 diabetes mellitus with diabetic neuropathy, unspecified; I11.0 Hypertensive heart disease with heart failure; J44.9 Chronic obstructive pulmonary disease, unspecified; E11.65 Type 2 diabetes mellitus with hyperglycemia; I48.0 Paroxysmal atrial fibrillation; Z79.4 Long term (current) use of insulin; Z89.422 Acquired absence of other left toe(s); Z20.828 Contact with and (suspected) exposure to other viral communicable diseases; M21.172 Varus deformity, not elsewhere classified, left ankle; I44.4 Left anterior fascicular block; I44.0 Atrioventricular block, first degree; D64.9 Anemia, unspecified; E78.5 Hyperlipidemia, unspecified; K21.9 Gastro-esophageal reflux disease without esophagitis; M19.90 Unspecified osteoarthritis, unspecified site; E66.9 Obesity, unspecified; B96.1 Klebsiella pneumoniae [K. pneumoniae] as the cause of diseases classified elsewhere; B96.89 Other specified bacterial agents as the cause of diseases classified elsewhere; Z68.36 Body mass index [BMI] 36.0-36.9, adult; Z79.82 Long term (current) use of aspirin; Z79.1 Long term (current) use of non-steroidal anti-inflammatories (NSAID); Z79.01 Long term (current) use of anticoagulants; Z79.899 Other long term (current) drug therapy; Z87.891 Personal history of nicotine dependence; Z95.828 Presence of other vascular implants and grafts; Z86.718 Personal history of other venous thrombosis and embolism; Z87.01 Personal history of pneumonia (recurrent); Z86.711 Personal history of pulmonary embolism; Z86.69 Personal history of other diseases of the nervous system and sense organs; Z86.73 Personal history of transient ischemic attack (TIA), and cerebral infarction without residual deficits; Z90.89 Acquired absence of other organs; Z90.49 Acquired absence of other specified parts of digestive tract; Z87.39 Personal history of other diseases of the musculoskeletal system and connective tissue; Z87.09 Personal history of other diseases of the respiratory system; Z96.642 Presence of left artificial hip joint; Z71.3 Dietary counseling and surveillance; Z98.890 Other specified postprocedural states; Z88.8 Allergy status to other drugs, medicaments and biological substances; Z82.49 Family history of ischemic heart disease and other diseases of the circulatory system
CPT/HCPCS: 36200; 36415; 36573; 71045; 73502; 75625; 75716; 76937; 80048; 80053; 80202; 81003; 82565; 83605; 84484; 85025; 85027; 85610; 85730; 87040; 87070; 87077; 87186; 87205; 93005; 93306; 96365; 99285

== ENCOUNTER 2020-05-18 18:14 | Inpatient (IN) | payer MEDICARE ==
[2020-05-18] MEDS ORDERED: ONDANSETRON 4 MG/2 ML VIAL IVP STA (19:45)
[2020-05-18] MEDS ORDERED: cefTRIAXone IN SWFI 1,000 MG/10 ML SYRINGE IVP STA (19:45)
[2020-05-18] MEDS ORDERED: SODIUM CHLORIDE 0.9% 1,000 ML IV STA (19:45)
[2020-05-18] MEDS ORDERED: HYDROmorphone 0.5 MG/0.5 ML SYRINGE IVP STA (19:45)
--- NOTE | 2020-05-18 19:48 | ED ---
General Adult HPI - General Chief complaint: Extremity Problem,Nontraumatic Stated complaint: right arm swelling/right foot pain Time Seen by Provider: 05/18/20 19:30 Source: patient, RN notes reviewed Mode of arrival: wheelchair Limitations: no limitations - History of Present Illness Initial comments: 65-year-old male accompanied daily past medical history presents to the emergency room for a chief Complaint of a possible blood clot in the right arm. Patient reports he has had redness and swelling for the past day and the right arm that has progressively worsened throughout the evening. States it is painful but does not have pain in the elbow with movement. Patient reports he has a history of blood clots and takes Coumadin. Patient has also had a history of cellulitis. He denies any fevers at home.Patient has no other complaints at this time including shortness of breath, chest pain, abdominal pain, nausea or vomiting, headache, or visual changes. - Related Data Home Medications Medication Instructions Recorded Confirmed Atorvastatin [Lipitor] 80 mg PO HS 01/09/14 05/18/20 Topiramate [Topamax] 25 mg PO DAILY 01/09/14 05/18/20 metFORMIN HCL [Glucophage] 500 mg PO DAILY 01/09/14 05/18/20 Nortriptyline [Pamelor] 50 mg PO HS 08/15/19 05/18/20 Omeprazole [PriLOSEC] 20 mg PO DAILY 08/15/19 05/18/20 Loratadine 10 mg PO DAILY 10/30/19 05/18/20 Celecoxib [CeleBREX] 200 mg PO DAILY 02/29/20 05/18/20 Metoprolol Succinate (ER) [Toprol 50 mg PO DAILY 02/29/20 05/18/20 XL] Warfarin [Coumadin] 3 mg PO MOTUWEFRSA 02/29/20 05/18/20 Warfarin [Coumadin] 4.5 mg PO SUTH 02/29/20 05/18/20 Humulin 60 units SQ DAILY 05/18/20 05/18/20 Pregabalin [Lyrica] 300 mg PO BID 05/18/20 05/18/20 lisinopriL [Zestril] 20 mg PO DAILY 05/18/20 05/18/20 Previous Rx's Medication Instructions Recorded Aspirin 81 mg PO DAILY 30 Days #30 chew 08/26/19 Amiodarone [Cordarone] 200 mg PO DAILY tab 03/07/20 Furosemide [Lasix] 40 mg PO BID@0900,1600 tab 03/10/20 oxyCODONE-APAP 10-325MG [Percocet 1 tab PO Q6HR PRN #10 tab 03/10/20 10-325 mg] Allergies Allergy/AdvReac Type Severity Reaction Status Date / Time baclofen Allergy Unknown Verified 05/18/20 20:34 Review of Systems ROS Statement: Those systems with pertinent positive or pertinent negative responses have been documented in the HPI. ROS Other: All systems not noted in ROS Statement are negative. Past Medical History Past Medical History: Atrial Fibrillation, Asthma, COPD, CVA/TIA, Diabetes Mellitus, Deep Vein Thrombosis (DVT), GERD/Reflux, Hyperlipidemia, Hypertension, Neurologic Disorder, Osteoarthritis (OA), Pneumonia, Pulmonary Embolus (PE) Additional Past Medical History / Comment(s): MIGRAINES. " ANITICOAGULANT LUPUS". PNEUMOTHRORAX. PERIPHERAL EDEMA. Per cardiology patient has a hx of proximal afib History of Any Multi-Drug Resistant Organisms: MRSA Date of last positivie culture/infection: 02/28/20 MDRO Source:: MRSA FOOT Past Surgical History: Adenoidectomy, Appendectomy, Tonsillectomy Additional Past Surgical History / Comment(s): HAILE FILTER . VEIN STRIPPING. STENTS IN "PELVIC AREA" NOVEMBER 2004., left BKA Past Anesthesia/Blood Transfusion Reactions: No Reported Reaction Past Psychological History: No Psychological Hx Reported Smoking Status: Former smoker Past Alcohol Use History: None Reported Past Drug Use History: None Reported - Past Family History Mother Additional Family Medical History / Comment(s): heart disease, peripheral vascular disease. Father Family Medical History: Unable to Obtain General Exam Limitations: no limitations General appearance: alert, in no apparent distress Head exam: Present: atraumatic, normocephalic, normal inspection Eye exam: Present: normal appearance, PERRL, EOMI. Absent: scleral icterus, conjunctival injection, periorbital swelling ENT exam: Present: normal exam, mucous membranes moist Neck exam: Present: normal inspection, full ROM. Absent: tenderness, meningismus, lymphadenopathy Respiratory exam: Present: normal lung sounds bilaterally. Absent: respiratory distress, wheezes, rales, rhonchi, stridor Cardiovascular Exam: Present: regular rate, normal rhythm, normal heart sounds. Absent: systolic murmur, diastolic murmur, rubs, gallop, clicks GI/Abdominal exam: Present: soft, normal bowel sounds. Absent: distended, tenderness, guarding, rebound, rigid Extremities exam: Present: full ROM (Full range of motion of the right upper extremity including all digits of the hand and wrist elbow and shoulder.), tenderness (Generalized tenderness in the forearm and upper arm of the right upper extremity.), normal capillary refill (Capillary refill less than 2 seconds in the right upper extremity radial pulse 2+.), other (Patient has diffuse edema and erythema extending from the wrist up to the proximal right upper extremity. Compartments are soft.) Course Vital Signs 05/18/20 18:15 Temperature 98.3 F Pulse Rate 67 Respiratory 18 Rate Blood Pressure 120/75 O2 Sat by Pulse 95 Oximetry Medical Decision Making - Medical Decision Making Vitals are stable. CBC unremarkable. CMP does show mild elevation in creatinine at 1.34, patient given fluids. Patient does have hyperglycemia at 340 with a history of diabetes mellitus. This did improve to 236 after a liter of fluids. Ultrasound was obtained which showed no evidence of DVT in the right arm. Physical exam consistent with sialitis extending throughout the entire right upper extremity. Patient has a history of sinusitis requiring IV anti biotics. Patient has comorbid, at this time will be admitted for IV therapy. - Lab Data Result diagrams: 05/18/20 20:46 05/18/20 20:46 Lab Results 05/18/20 05/18/20 05/18/20 Range/Units 20:46 20:46 20:46 WBC 10.2 (3.8-10.6) k/uL RBC 3.81 L (4.30-5.90) m/uL Hgb 12.3 L (13.0-17.5) gm/dL Hct 37.4 L (39.0-53.0) % MCV 98.0 (80.0-100.0) fL MCH 32.1 (25.0-35.0) pg MCHC 32.8 (31.0-37.0) g/dL RDW 14.5 (11.5-15.5) % Plt Count 170 (150-450) k/uL Neutrophils % 84 % Lymphocytes % 8 % Monocytes % 5 % Eosinophils % 1 % Basophils % 0 % Neutrophils # 8.6 H (1.3-7.7) k/uL Lymphocytes # 0.8 L (1.0-4.8) k/uL Monocytes # 0.5 (0-1.0) k/uL Eosinophils # 0.1 (0-0.7) k/uL Basophils # 0.0 (0-0.2) k/uL PT 17.3 H (9.0-12.0) sec INR 1.8 H (<1.2) APTT 32.1 H (22.0-30.0) sec Sodium 135 L (137-145) mmol/L Potassium 4.5 (3.5-5.1) mmol/L Chloride 105 (98-107) mmol/L Carbon Dioxide 22 (22-30) mmol/L Anion Gap 8 mmol/L BUN 28 H (9-20) mg/dL Creatinine 1.34 H (0.66-1.25) mg/dL Est GFR (CKD-EPI)AfAm 65 (>60 ml/min/1.73 sqM) Est GFR (CKD-EPI)NonAf 56 (>60 ml/min/1.73 sqM) Glucose 340 H (74-99) mg/dL POC Glucose (mg/dL) (75-99) mg/dL POC Glu Hydramatic Specialist ID Plasma Lactic Acid Dennis (0.7-2.0) mmol/L Calcium 8.4 (8.4-10.2) mg/dL Total Bilirubin 0.9 (0.2-1.3) mg/dL AST 76 H (17-59) U/L ALT 119 H (4-49) U/L Alkaline Phosphatase 122 (38-126) U/L Total Protein 6.4 (6.3-8.2) g/dL Albumin 3.2 L (3.5-5.0) g/dL 05/18/20 05/18/20 Range/Units 20:46 22:45 WBC (3.8-10.6) k/uL RBC (4.30-5.90) m/uL Hgb (13.0-17.5) gm/dL Hct (39.0-53.0) % MCV (80.0-100.0) fL MCH (25.0-35.0) pg MCHC (31.0-37.0) g/dL RDW (11.5-15.5) % Plt Count (150-450) k/uL Neutrophils % % Lymphocytes % % Monocytes % % Eosinophils % % Basophils % % Neutrophils # (1.3-7.7) k/uL Lymphocytes # (1.0-4.8) k/uL Monocytes # (0-1.0) k/uL Eosinophils # (0-0.7) k/uL Basophils # (0-0.2) k/uL PT (9.0-12.0) sec INR (<1.2) APTT (22.0-30.0) sec Sodium (137-145) mmol/L Potassium (3.5-5.1) mmol/L Chloride (98-107) mmol/L Carbon Dioxide (22-30) mmol/L Anion Gap mmol/L BUN (9-20) mg/dL Creatinine (0.66-1.25) mg/dL Est GFR (CKD-EPI)AfAm (>60 ml/min/1.73 sqM) Est GFR (CKD-EPI)NonAf (>60 ml/min/1.73 sqM) Glucose (74-99) mg/dL POC Glucose (mg/dL) 236 H (75-99) mg/dL POC Glu Hydramatic Specialist ID Ortiz Espinal Plasma Lactic Acid Dennis 1.5 (0.7-2.0) mmol/L Calcium (8.4-10.2) mg/dL Total Bilirubin (0.2-1.3) mg/dL AST (17-59) U/L ALT (4-49) U/L Alkaline Phosphatase (38-126) U/L Total Protein (6.3-8.2) g/dL Albumin (3.5-5.0) g/dL Disposition Clinical Impression: Cellulitis Disposition: ADMITTED IP TO THIS HOSP Condition: Fair Is patient prescribed a controlled substance at d/c from ED?: No Referrals: Kristin Emery DO [Primary Care Provider] - 1-2 days Time of Disposition: 22:57
[2020-05-18 21:16] LABS: Albumin 3.2 g/dL (3.5-5.0); Calcium 8.4 mg/dL (8.4-10.2); Potassium 4.5 mmol/L (3.5-5.1); Total Bilirubin 0.9 mg/dL (0.2-1.3); Total Protein 6.4 g/dL (6.3-8.2)
[2020-05-18 21:20] LABS: INR 1.8 (<1.2); Partial Thromboplastin Time 32.1 sec (22.0-30.0); Prothrombin Time 17.3 sec (9.0-12.0)
[2020-05-18 21:49] LABS: Basophils % (A) 0 %; Eosinophils # (A) 0.1 k/uL (0-0.7); Eosinophils % (A) 1 %; HCT 37.4 % (39.0-53.0); HGB 12.3 gm/dL (13.0-17.5); Lymphocytes # (A) 0.8 k/uL (1.0-4.8); Lymphocytes % (A) 8 %; MCH 32.1 pg (25.0-35.0); MCHC 32.8 g/dL (31.0-37.0); Mean Platelet Volume 8.1; Monocytes # (A) 0.5 k/uL (0-1.0); Monocytes % (A) 5 %; Neutrophils # (A) 8.6 k/uL (1.3-7.7); Neutrophils % (A) 84 %; Platelet Count 170 k/uL (150-450); RBC 3.81 m/uL (4.30-5.90); RDW 14.5 % (11.5-15.5); WBC 10.2 k/uL (3.8-10.6)
[2020-05-18 22:46] LABS: Glucose,Whole Blood 236 mg/dL (75-99)
--- NOTE | 2020-05-18 22:46 | US ---
EXAMINATION TYPE: US venous doppler duplex UE RT DATE OF EXAM: 05/18/2020 COMPARISON: NONE CLINICAL HISTORY: pain. Pain in right arm x 2 days. Hx DVT in leg, PE. Patient on coumadin. Patient h as zina filter. SIDE PERFORMED: Right Right Arm: No evidence of DVT in veins imaged at this time within the right arm. Right ulnar veins ap pear very small, unable to use color Doppler. These veins do appear to compress. IMPRESSION: No evidence of deep vein thrombosis in the right arm.
[2020-05-18] MEDS ORDERED: VANCOMYCIN IV PER PHARMACY 1 EACH MISC MISCELLANE PRN (22:54)
[2020-05-18] MEDS ORDERED: ONDANSETRON 4 MG/2 ML VIAL IVP PRN (22:58)
[2020-05-18] MEDS ORDERED: NALOXONE 0.4 MG/ML 1 ML VIAL IV PRN (22:58)
[2020-05-18] MEDS ORDERED: HYDROmorphone 0.5 MG/0.5 ML SYRINGE IVP PRN (22:58)
[2020-05-18] MEDS ORDERED: SODIUM CHLORIDE 0.9% 1,000 ML IV SCH (23:00)
[2020-05-19] MEDS ORDERED: VANCOMYCIN 2,000 MG in SODIUM CHLORIDE 0.9% 500 ML 500 ML IVPB ONE ×2
[2020-05-19 06:24] LABS: Glucose,Whole Blood 270 mg/dL (75-99)
[2020-05-19] MEDS: INSULIN ASPART (NovoLOG) 100 UNIT/ML VIAL SQ SCH ×4 (08:51→21:12)
[2020-05-19] MEDS: TOPIRAMATE 25 MG TAB PO SCH (08:52)
[2020-05-19] MEDS: LORATADINE 10 MG TAB PO SCH (08:52)
[2020-05-19] MEDS: ASPIRIN 81 MG PO SCH (08:52)
[2020-05-19] MEDS: METOPROLOL SUCCINATE (ER) 50 MG TAB.ER.24H PO SCH (08:53)
[2020-05-19] MEDS ORDERED: lisinopriL 20 MG TAB PO SCH (09:00)
[2020-05-19] MEDS ORDERED: metFORMIN 500 MG TAB PO SCH (09:00)
[2020-05-19] MEDS ORDERED: FUROSEMIDE 40 MG TAB PO SCH (09:00)
[2020-05-19] MEDS: AMIODARONE 200 MG TAB PO SCH (10:00)
[2020-05-19] MEDS: oxyCODONE-APAP 10-325MG 1 EACH TAB PO PRN ×2 (10:14→21:13)
[2020-05-19] MEDS ORDERED: PREGABALIN 100 MG CAP PO SCH (10:15)
[2020-05-19] MEDS ORDERED: traMADol 50 MG TAB PO PRN (10:59)
[2020-05-19 12:08] LABS: Glucose,Whole Blood 202 mg/dL (75-99)
--- NOTE | 2020-05-19 12:29 | P.HPIM ---
History of Present Illness 65-year-old male came in with the swelling of the right arm believe that he has a blood clot. Patient has a blood clots in the past was on Coumadin. Patient be a Doppler of the right upper extremity which did not show an DVT patient appears to have some cellulitis or hematoma in that arm. Patient was started on vancomycin patient has history of MRSA in the past patient had MRSA bacteremia in the past. 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 Patient denied any fever chills, patient had nausea vomiting. Patient has mildly elevated AST and ALP as well. Patient is an creatinine is within normal limits and patient has admitted creatinine of 1.34 Review of Systems REVIEW OF SYSTEMS: CONSTITUTIONAL: No fever, no malaise, no fatigue. HEENT: No recent visual problems or hearing problems. Denied any sore throat. CARDIOVASCULAR: No chest pain, orthopnea, PND, no palpitations, no syncope. PULMONARY: No shortness of breath, no cough, no hemoptysis. GASTROINTESTINAL: No diarrhea, no nausea, no vomiting, no abdominal pain. NEUROLOGICAL: No headaches, no weakness, no numbness. HEMATOLOGICAL: Denies any bleeding or petechiae. GENITOURINARY: Denies any burning micturition, frequency, or urgency. MUSCULOSKELETAL/RHEUMATOLOGICAL: As mentioned in HPI ENDOCRINE: Denies any polyuria or polydipsia. The rest of the 14-point review of systems is negative. Past Medical History Past Medical History: Atrial Fibrillation, Asthma, COPD, CVA/TIA, Diabetes Mellitus, Deep Vein Thrombosis (DVT), GERD/Reflux, Hyperlipidemia, Hypertension, Neurologic Disorder, Osteoarthritis (OA), Pneumonia, Pulmonary Embolus (PE) Additional Past Medical History / Comment(s): MIGRAINES. " ANITICOAGULANT LUPUS". PNEUMOTHRORAX. PERIPHERAL EDEMA. Per cardiology patient has a hx of proximal afib History of Any Multi-Drug Resistant Organisms: MRSA Date of last positivie culture/infection: 02/28/20 MDRO Source:: MRSA FOOT Past Surgical History: Adenoidectomy, Appendectomy, Tonsillectomy Additional Past Surgical History / Comment(s): HAILE FILTER . VEIN STRIPPING. STENTS IN "PELVIC AREA" NOVEMBER 2004., left BKA Past Anesthesia/Blood Transfusion Reactions: No Reported Reaction Past Psychological History: No Psychological Hx Reported Additional Psychological History / Comment(s): TAKES CYMBALTA FOR CARPAL TUNNEL. Smoking Status: Former smoker Past Alcohol Use History: None Reported Past Drug Use History: None Reported - Past Family History Mother Family Medical History: Coronary Artery Disease (CAD), Myocardial Infarction ([place]), Vascular Disorder Additional Family Medical History / Comment(s): heart disease, peripheral vascular disease. Father Family Medical History: Diabetes Mellitus, Renal Disease Medications and Allergies Home Medications Medication Instructions Recorded Confirmed Type Atorvastatin [Lipitor] 80 mg PO HS 01/09/14 05/18/20 History Topiramate [Topamax] 25 mg PO DAILY 01/09/14 05/18/20 History metFORMIN HCL [Glucophage] 500 mg PO DAILY 01/09/14 05/18/20 History Nortriptyline [Pamelor] 50 mg PO HS 08/15/19 05/18/20 History Omeprazole [PriLOSEC] 20 mg PO DAILY 08/15/19 05/18/20 History Aspirin 81 mg PO DAILY 30 Days #30 chew 08/26/19 05/18/20 Rx Loratadine 10 mg PO DAILY 10/30/19 05/18/20 History Celecoxib [CeleBREX] 200 mg PO DAILY 02/29/20 05/18/20 History Metoprolol Succinate (ER) [Toprol 50 mg PO DAILY 02/29/20 05/18/20 History XL] Warfarin [Coumadin] 3 mg PO MOTUWEFRSA 02/29/20 05/18/20 History Warfarin [Coumadin] 4.5 mg PO SUTH 02/29/20 05/18/20 History Amiodarone [Cordarone] 200 mg PO DAILY tab 03/07/20 05/18/20 Rx Furosemide [Lasix] 40 mg PO BID@0900,1600 tab 03/10/20 05/18/20 Rx oxyCODONE-APAP 10-325MG [Percocet 1 tab PO Q6HR PRN #10 tab 03/10/20 05/18/20 Rx 10-325 mg] Humulin 60 units SQ DAILY 05/18/20 05/18/20 History Pregabalin [Lyrica] 300 mg PO BID 05/18/20 05/18/20 History lisinopriL [Zestril] 20 mg PO DAILY 05/18/20 05/18/20 History Allergies Allergy/AdvReac Type Severity Reaction Status Date / Time baclofen Allergy Unknown Verified 05/18/20 20:34 Physical Exam Vitals: Vital Signs Temp Pulse Pulse Resp BP BP Pulse Ox 05/19/20 08:52 98.3 F 63 17 120/69 93 L 05/19/20 03:51 97.3 F L 63 16 96/61 93 L 05/19/20 00:44 97.8 F 59 L 18 103/67 96 05/19/20 00:21 98.7 F 74 18 144/84 97 05/18/20 23:00 97.3 F L 61 18 111/65 95 05/18/20 18:15 98.3 F 67 18 120/75 95 Intake and Output 05/18/20 05/19/20 05/19/20 22:59 06:59 14:59 Intake Total 350 Output Total 1100 Balance 350 -1100 Intake: Oral 350 Output: Urine 1100 Other: Weight 122.47 kg 122.47 kg PHYSICAL EXAMINATION: GENERAL: The patient is alert and oriented x3, not in any acute distress. Well developed, well nourished. HEENT: Pupils are round and equally reacting to light. EOMI. No scleral icterus. No conjunctival pallor. Normocephalic, atraumatic. No pharyngeal erythema. No thyromegaly. CARDIOVASCULAR: S1 and S2 present. No murmurs, rubs, or gallops. PULMONARY: Chest is clear to auscultation, no wheezing or crackles. ABDOMEN: Soft, nontender, nondistended, normoactive bowel sounds. No palpable organomegaly. MUSCULOSKELETAL: No joint swelling or deformity. EXTREMITIES: No cyanosis, clubbing, or pedal edema. Patient has an amputation of the left leg. Patient has a swelling in duration and redness in the left arm. NEUROLOGICAL: Gross neurological examination did not reveal any focal deficits. SKIN: Redness in the left arm just distal to the elbow area on the dose last but. Patient doesn't appear to have any leukin and bursitis. Results CBC & Chem 7: 05/18/20 20:46 05/18/20 20:46 Labs: Abnormal Lab Results - Last 24 Hours (Table) 05/18/20 05/18/20 05/18/20 Range/Units 20:46 20:46 20:46 RBC 3.81 L (4.30-5.90) m/uL Hgb 12.3 L (13.0-17.5) gm/dL Hct 37.4 L (39.0-53.0) % Neutrophils # 8.6 H (1.3-7.7) k/uL Lymphocytes # 0.8 L (1.0-4.8) k/uL PT 17.3 H (9.0-12.0) sec INR 1.8 H (<1.2) APTT 32.1 H (22.0-30.0) sec Sodium 135 L (137-145) mmol/L BUN 28 H (9-20) mg/dL Creatinine 1.34 H (0.66-1.25) mg/dL Glucose 340 H (74-99) mg/dL POC Glucose (mg/dL) (75-99) mg/dL AST 76 H (17-59) U/L ALT 119 H (4-49) U/L Albumin 3.2 L (3.5-5.0) g/dL 05/18/20 05/19/20 05/19/20 Range/Units 22:45 06:10 12:07 RBC (4.30-5.90) m/uL Hgb (13.0-17.5) gm/dL Hct (39.0-53.0) % Neutrophils # (1.3-7.7) k/uL Lymphocytes # (1.0-4.8) k/uL PT (9.0-12.0) sec INR (<1.2) APTT (22.0-30.0) sec Sodium (137-145) mmol/L BUN (9-20) mg/dL Creatinine (0.66-1.25) mg/dL Glucose (74-99) mg/dL POC Glucose (mg/dL) 236 H 270 H 202 H (75-99) mg/dL AST (17-59) U/L ALT (4-49) U/L Albumin (3.5-5.0) g/dL Thrombosis Risk Factor Assmnt - Choose All That Apply Each Factor Represents 1 point: Obesity (BMI >25) Each Risk Factor Represents 2 Points: Age 61-74 years Thrombosis Risk Factor Assessment Total Risk Factor Score: 3 Thrombosis Risk Factor Assessment Level: Moderate Risk Assessment and Plan Plan: -Swelling and redness of the left arm: Possibly of cellulitis or hematoma of the left elbow and forearm. Continue vancomycin infectious disease will be consulted. Patient did have history of MRSA in the past patient had history of MRSA bacteremia in the past. -Acute renal failure most probably secondary to excessive diuresis Lasix will be held. Patient does have some swelling in the right leg because of which I will hold off on the fluids as well and repeat basic volley profile tomorrow -Mildly elevated liver enzymes nonspecific elevation will repeat liver enzymes tomorrow again next and- -History of DVT in the past and patient to INR results and patient will be resumed on Coumadin recheck the INR tomorrow -History of Failure Patient Does Have Some Pedal Edema but Doesn't Have Any Sign ificant JVD Doesn't Appear to Be in CHF Exacerbation Patient Had a Normal Ejection Fraction the past. Patient Couple Years Ago Had a Decreased EF Which Improved. Patient Appears to Be Fairly Euvolemic at This Time, I'll Order a Chest X-Ray to Rule Out Any Pulmonary Edema. -Type 2 diabetes mellitus: Patient will be started on long-acting insulin 30 units along with sliding scale for pre-meal. -COPD without any acute exacerbation -Hypertension -Severe TIA in the past next and-hyperlipidemia -DVT prophylaxis: Patient is already on Coumadin. INR is 1.9 mildly subtherapeutic
[2020-05-19] MEDS: VANCOMYCIN 2,000 MG in SODIUM CHLORIDE 0.9% 500 ML 500 ML IVPB SCH ×2 (12:47→23:35)
[2020-05-19 17:03] LABS: Glucose,Whole Blood 177 mg/dL (75-99)
[2020-05-19] MEDS ORDERED: WARFARIN 5 MG TAB PO ONE (18:00)
[2020-05-19 20:27] LABS: Glucose,Whole Blood 208 mg/dL (75-99)
[2020-05-19] MEDS ORDERED: NORTRIPTYLINE 25 MG CAP PO SCH (21:00)
[2020-05-19] MEDS ORDERED: PREGABALIN 300 MG PO SCH (21:00)
[2020-05-19] MEDS ORDERED: ATORVASTATIN 80 MG TAB PO SCH (21:00)
[2020-05-19] MEDS ORDERED: INSULIN DETEMIR (LEVEMIR) 100 UNIT/ML SYR SQ SCH (21:00)
[2020-05-19] MEDS: PREGABALIN 100 MG CAP PO SCH (21:14)
[2020-05-20 06:34] LABS: Glucose,Whole Blood 131 mg/dL (75-99)
[2020-05-20] MEDS ORDERED: PANTOPRAZOLE 40 MG TABLET PO SCH (07:30)
[2020-05-20 08:23] VITALS: RESP 16
[2020-05-20] MEDS: INSULIN ASPART (NovoLOG) 100 UNIT/ML VIAL SQ SCH ×2 (08:23→12:28)
[2020-05-20] MEDS: ASPIRIN 81 MG PO SCH (08:30)
[2020-05-20] MEDS: METOPROLOL SUCCINATE (ER) 50 MG TAB.ER.24H PO SCH (08:30)
[2020-05-20] MEDS: oxyCODONE-APAP 10-325MG 1 EACH TAB PO PRN ×2 (08:30→14:56)
[2020-05-20] MEDS: AMIODARONE 200 MG TAB PO SCH (08:30)
[2020-05-20] MEDS: LORATADINE 10 MG TAB PO SCH (08:30)
[2020-05-20] MEDS: TOPIRAMATE 25 MG TAB PO SCH (08:31)
[2020-05-20] MEDS: PREGABALIN 100 MG CAP PO SCH (08:31)
[2020-05-20 08:44] LABS: HCT 37.6 % (39.0-53.0); HGB 12.1 gm/dL (13.0-17.5); INR 2.1 (<1.2); MCH 31.4 pg (25.0-35.0); MCHC 32.1 g/dL (31.0-37.0); MCV 97.7 fL (80.0-100.0); Mean Platelet Volume 8.5; Platelet Count 203 k/uL (150-450); Prothrombin Time 20.2 sec (9.0-12.0); RBC 3.85 m/uL (4.30-5.90); RDW 14.5 % (11.5-15.5); WBC 7.2 k/uL (3.8-10.6)
[2020-05-20] MEDS ORDERED: MELOXICAM 7.5 MG TAB PO SCH (09:00)
[2020-05-20] MEDS ORDERED: lisinopriL 10 MG TAB PO SCH (09:00)
[2020-05-20 09:10] LABS: Albumin 3.1 g/dL (3.5-5.0); Calcium 8.3 mg/dL (8.4-10.2); Total Bilirubin 0.8 mg/dL (0.2-1.3); Total Protein 6.3 g/dL (6.3-8.2)
--- NOTE | 2020-05-20 10:11 | CONS ---
CONSULTATION DATE OF SERVICE: 05/19/2020 REASON FOR CONSULTATION: Right upper extremity cellulitis. HISTORY OF PRESENT ILLNESS: The patient is a 65-year-old male with a past medical history significant for left diabetic foot infection, status post amputation and this patient presented to the hospital with right upper extremity pain, swelling and redness. The pain has been getting worse for the last day or two before presentation to the hospital. Patient denies having any history of any trauma, open wound or any drainage. Patient has been complaining of pain to the right upper arm to more of a dull aching at times, throbbing, intensity 6 to 7/10 and no radiation. Patient also has diffuse swelling, has tenderness as well. No open wound or any drainage. Patient complaining of some chills but denies high-grade fever. With these symptoms the patient was evaluated by the ER physician. On arrival to the ER, the patient has been afebrile. Patient did have a white count of 10.2, creatinine was 1.34. Patient did have a Doppler ultrasound of the right lower extremity that was negative for DVT. Patient was started on vancomycin was admitted to the hospital. Infectious Disease was consulted for further management of antibiotic therapy. REVIEW OF SYSTEMS: Positive points have been mentioned in HPI. Rest of the systems are negative. PAST MEDICAL HISTORY: Atrial fibrillation, asthma, COPD, CVA, TIA, diabetes mellitus, DVT, gastroesophageal reflux disease, hypertension, hyperlipidemia, diabetic foot infection, MRSA. PAST SURGICAL HISTORY: Appendectomy, , tonsillectomy, right [id number] amputation. SOCIAL HISTORY: Remote history of smoking, no drinking or drug use. FAMILY HISTORY: Mother history of heart disease. ALLERGIES: To BACLOFEN. MEDICATIONS: Patient is currently on amiodarone, aspirin, Lipitor, Dilaudid, NovoLog, Levemir, Zestril, Claritin, vancomycin pharmacy to dose and Coumadin. PHYSICAL EXAMINATION: Blood pressure 122/66, pulse of 56, temperature 98.1, he is 97% on room air. General description is a middle-aged male, lying in bed in no distress. No tachypnea or accessory muscle of respiration use. HEENT: Examination shows no pallor or scleral icterus. Oral mucosa membrane is dry. NECK: Trachea central, no thyromegaly. LUNGS: Unlabored breathing, clear to auscultation anteriorly. No wheeze or crackle. HEART: S1, S2. Regular rate and rhythm. ABDOMEN: Soft, no tenderness, no rigidity. EXTREMITIES: No edema of the feet. Examination of the right upper extremity show diffuse swelling and redness, no fluctuation, induration or any swelling at the elbow was noticed, no drainage. NEUROLOGICAL: Patient is awake, alert, oriented. Mood and affect normal. LABS: BUN of 20, creatinine 1.34. Liver enzymes mildly elevated. Hemoglobin is 12.8, white count 10.2. Blood culture so far negative. Ultrasound negative for DVT. DIAGNOSTIC IMPRESSION: Patient with recent hospital acquired right upper extremity cellulitis in this patient who did have diffuse swelling and redness, likely from a gram-positive skin [place] in this patient who did have a history of MRSA infection. Will need to cover for the MRSA to be the likely pathogen. PLAN: 1. Topher the area of the redness right upper extremity. 2. Vancomycin pharmacy to dose target of 15 while watching his kidney function closely. 3. Will follow on his clinical condition and culture to further adjust medication if needed. Thank you for this consultation. Will follow the patient along with you. MMODL / IJN: [id number] /
[2020-05-20 11:57] LABS: Glucose,Whole Blood 243 mg/dL (75-99)
[2020-05-20] MEDS: VANCOMYCIN 2,000 MG in SODIUM CHLORIDE 0.9% 500 ML 500 ML IVPB SCH (12:27)
--- NOTE | 2020-05-20 12:57 | P.DS ---
Providers Date of admission: 05/19/20 13:21 Attending physician: Shadia Alvarez Consults: 05/19/20 10:59 Consult Physician Routine Consulting Provider: Sherman Ordoñez Consult Reason/Comments: Cellulitis Do you want consulting provider notified?: Yes Primary care physician: [facility] Course: 65-year-old male came in with the swelling of the right arm believe that he has a blood clot. Patient has a blood clots in the past was on Coumadin. Patient be a Doppler of the right upper extremity which did not show an DVT patient appears to have some cellulitis or hematoma in that arm. Patient was started on vancomycin patient has history of MRSA in the past patient had MRSA bacteremia in the past. 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 Patient denied any fever chills, patient had nausea vomiting. Patient has mildly elevated AST and ALP as well. Patient is an creatinine is within normal limits and patient has admitted creatinine of 1.34 05/20/2020 Patient swelling and redness significantly improved ,still has swelling in the right arm and both sides of the elbow in the distal arm and proximal forearm. Kidney function improved to 1.21. Patient may not require any diuretics. Patient to will need BMP to be checked as an outpatient patient liver enzymes remain stable patient creatinine improved from 1.34-1.21 patient ejection fraction normal , his CHF improved may not require any more Lasix. Although will cut down the Lasix from 40 oral twice a day to 40 daily and this can be discontinued completely if he doesn't need it and refer patient goes into renal failure. Patient's metformin will be discontinued because of the poor renal function. INR is therapy At this time. If cleared by infectious disease patient will be discharged on antibiotics and patient came and patient was mildly subtherapeutic, since patient will be discharged on antibiotics I do not leave Coumadin dosing need to be changed patient will resume his home dose of C oumadin. 70/30 was discontinued patient appeared to be bit noncompliant with her diabetic medications patient is only requiring 30 units of long-acting insulin here patient will be discharged on 30 units of Lantus. PHYSICAL EXAMINATION: GENERAL: The patient is alert and oriented x3, not in any acute distress. Well developed, well nourished. HEENT: Pupils are round and equally reacting to light. EOMI. No scleral icterus. No conjunctival pallor. Normocephalic, atraumatic. No pharyngeal erythema. No thyromegaly. CARDIOVASCULAR: S1 and S2 present. No murmurs, rubs, or gallops. PULMONARY: Chest is clear to auscultation, no wheezing or crackles. ABDOMEN: Soft, nontender, nondistended, normoactive bowel sounds. No palpable organomegaly. MUSCULOSKELETAL: No joint swelling or deformity. EXTREMITIES: No cyanosis, clubbing, or pedal edema. Patient has an amputation of the left leg. Patient has a swelling in duration and redness in the left arm. NEUROLOGICAL: Gross neurological examination did not reveal any focal deficits. SKIN: Cellulitis as mentioned above improved Assessment and Plan Plan: -Swelling and redness of the left arm: Full cellulitis, history of MRSA in the past antibiotics as per infectious disease -Acute renal failure most probably secondary to excessive diuresis Lasix . -Mildly elevated liver enzymes nonspecific elevation, stable at this time no further intervention as an inpatient. -History of DVT in the past INR therapeutic today -Type 2 diabetes mellitus: Patient will be started on long-acting insulin 30 units along with sliding scale for pre-meal. -COPD without any acute exacerbation -Hypertension -Severe TIA in the past -hyperlipidemia Patient Condition at Discharge: Fair Plan - Discharge Summary Discharge Rx Participant: No New Discharge Prescriptions: New Insulin Glargine [Lantus] 30 unit SQ HS #2 vial Continue Atorvastatin [Lipitor] 80 mg PO HS Topiramate [Topamax] 25 mg PO DAILY Omeprazole [PriLOSEC] 20 mg PO DAILY Nortriptyline [Pamelor] 50 mg PO HS Aspirin 81 mg PO DAILY 30 Days #30 chew Loratadine 10 mg PO DAILY Celecoxib [CeleBREX] 200 mg PO DAILY Warfarin [Coumadin] 4.5 mg PO SUTH Warfarin [Coumadin] 3 mg PO MOTUWEFRSA Metoprolol Succinate (ER) [Toprol XL] 50 mg PO DAILY Amiodarone [Cordarone] 200 mg PO DAILY tab oxyCODONE-APAP 10-325MG [Percocet 10-325 mg] 1 tab PO Q6HR PRN #10 tab PRN Reason: Pain lisinopriL [Zestril] 20 mg PO DAILY Pregabalin [Lyrica] 300 mg PO BID Docusate [Colace] 100 mg PO DAILY Changed Furosemide [Lasix] 40 mg PO DAILY #0 tab Discontinued metFORMIN HCL [Glucophage] 500 mg PO DAILY Insulin NPH Human Isophane [NovoLIN N] 60 units SQ DAILY Discharge Medication List Atorvastatin [Lipitor] 80 mg PO HS 01/09/14 [History] Topiramate [Topamax] 25 mg PO DAILY 01/09/14 [History] Nortriptyline [Pamelor] 50 mg PO HS 08/15/19 [History] Omeprazole [PriLOSEC] 20 mg PO DAILY 08/15/19 [History] Aspirin 81 mg PO DAILY 30 Days #30 chew 08/26/19 [Rx] Loratadine 10 mg PO DAILY 10/30/19 [History] Celecoxib [CeleBREX] 200 mg PO DAILY 02/29/20 [History] Metoprolol Succinate (ER) [Toprol XL] 50 mg PO DAILY 02/29/20 [History] Warfarin [Coumadin] 3 mg PO MOTUWEFRSA 02/29/20 [History] Warfarin [Coumadin] 4.5 mg PO SUTH 02/29/20 [History] Amiodarone [Cordarone] 200 mg PO DAILY tab 03/07/20 [Rx] oxyCODONE-APAP 10-325MG [Percocet 10-325 mg] 1 tab PO Q6HR PRN #10 tab 03/10/20 [Rx] Pregabalin [Lyrica] 300 mg PO BID 05/18/20 [History] lisinopriL [Zestril] 20 mg PO DAILY 05/18/20 [History] Docusate [Colace] 100 mg PO DAILY 05/19/20 [History] Furosemide [Lasix] 40 mg PO DAILY #0 tab 05/20/20 [Rx] Insulin Glargine [Lantus] 30 unit SQ HS #2 vial 05/20/20 [Rx] Follow up Appointment(s)/Referral(s): Kristin Emery DO [Primary Care Provider] - 3 Days Discharge Disposition: HOME SELF-CARE
[2020-05-20 14:51] VITALS: BP 106/62; PULSE 49; TEMP 97.7
--- NOTE | 2020-05-20 16:41 | PN ---
PROGRESS NOTE DATE OF SERVICE: 05/20/2020 REASON FOR FOLLOWUP: Right upper extremity cellulitis and discharge antibiotic recommendation. INTERVAL HISTORY: The patient is currently afebrile. The patient is feeling better, breathing comfortably. Right upper arm swelling and redness have much improved compared to yesterday. The patient's pain has improved. Currently no open wound or any drainage. No chest pain, shortness of breath or cough. No abdominal pain or diarrhea. PHYSICAL EXAMINATION: Blood pressure 106/62 with a pulse of 49, temperature 97.7. He is 97% on room air. General description is a middle-aged male lying in bed in no distress. RESPIRATORY SYSTEM: Unlabored breathing. Clear to auscultation anteriorly. HEART: S1, S2. Regular rate and rhythm. ABDOMEN: Soft. No tenderness. Right upper extremity swelling and redness have much improved. Currently no fluctuation, induration or any open wound and no drainage. LABS: White count 7.8, creatinine is 1.21. DIAGNOSTIC IMPRESSION AND PLAN: Patient with right upper extremity cellulitis in this patient who had diffuse swelling and redness; possible streptococcal disease. Overall improvement on vancomycin. However, the patient does have a history of MRSA infection recently. We will doxycycline 100 mg twice a day, as previous problem with Bactrim with renal insufficiency, and Keflex. The patient needs to monitor his INR very closely while on antibiotic treatment and recheck every 3 days. Prescription has been sent to the pharmacy. The patient has been advised if any recurrence of swelling or redness or fever to come back to the ER right away. The patient understands instructions. MMODL / IJN: [id number] /
[2020-05-20] MEDS ORDERED: WARFARIN 3 MG TAB PO SCH ×2 (18:00)
--- NOTE | 2020-05-21 08:34 | CDI ---
Documentation Clarification Form Date: 05/21/2020 08:21:00 AM From: Jessica Brooks Phone: If you have a question about this query, please contact Joanie Bhatt, [place] at [phone] between 8am and 5pm. Admit Date: 05/19/2020 01:21:00 PM Patient Name: Checo Quijano Visit Number: [id number] Discharge Date: 05/20/2020 05:00:00 PM ATTENTION: The Clinical Documentation Specialists (CDI) and [facility] Coding Staff appreciate your assistance in clarifying documentation. Please respond to the clarification below the line at the bottom and electronically sign. The CDI & [facility] Coding staff will review the response and follow-up if needed. Please note: Queries are made part of the Legal Health Record. If you have any questions, please contact the author of this message via ITS. Dr. Rivera, Your patient has the documented diagnosis of RUE cellulitis and diabetes in consult notes dated 05/19/20, patient has a history of left diabetic foot infection status post amputation. Please clarify if there is a link between patient's DM and RUE cellulitis. A relationship between diagnoses cannot be assumed unless documented as such by the attending physician. In order to capture the severity of condition; please document the relationship, if any, between these diagnoses. History/Risk Factors: DM, history of diabetic foot infection status post left BKA. Clinical Indicators: Treatment: Vancomycin ID consult Please clarify if patients RUE cellulitis is linked to patients DM. Cellulitis RUE linked to DM Cellulitis RUE not due to DM Other explanation of clinical findings (please specify) Unable to determine (no explanation for clinical findings) Unable to determine MTDD
[2020-05-21] MEDS ORDERED: WARFARIN 3 MG TAB PO SCH ×2 (09:00→18:00)
== END 2020-05-20 17:00 | disposition home or self-care (01) | DRG 603 ==
LOC: EC 18:14 → 1SOBS 22:59 → OBSVTOIN 05-19 13:21
PROVIDERS: ADMIT Hospitalist; ATTEND Hospitalist
DX: L03.113 Cellulitis of right upper limb (principal); N17.9 Acute kidney failure, unspecified; E78.5 Hyperlipidemia, unspecified; I50.9 Heart failure, unspecified; I11.0 Hypertensive heart disease with heart failure; I48.0 Paroxysmal atrial fibrillation; Z79.01 Long term (current) use of anticoagulants; J44.9 Chronic obstructive pulmonary disease, unspecified; Z79.1 Long term (current) use of non-steroidal anti-inflammatories (NSAID); Z79.4 Long term (current) use of insulin; Z79.82 Long term (current) use of aspirin; Z79.899 Other long term (current) drug therapy; Z82.49 Family history of ischemic heart disease and other diseases of the circulatory system; Z83.3 Family history of diabetes mellitus; Z86.14 Personal history of Methicillin resistant Staphylococcus aureus infection; Z86.711 Personal history of pulmonary embolism; Z86.718 Personal history of other venous thrombosis and embolism; Z86.73 Personal history of transient ischemic attack (TIA), and cerebral infarction without residual deficits; Z87.891 Personal history of nicotine dependence; Z89.512 Acquired absence of left leg below knee; Z95.828 Presence of other vascular implants and grafts; E66.9 Obesity, unspecified; Z68.32 Body mass index [BMI] 32.0-32.9, adult; Z84.1 Family history of disorders of kidney and ureter; Z90.89 Acquired absence of other organs; Z90.49 Acquired absence of other specified parts of digestive tract; Z88.8 Allergy status to other drugs, medicaments and biological substances; T50.2X5A Adverse effect of carbonic-anhydrase inhibitors, benzothiadiazides and other diuretics, initial encounter; M19.90 Unspecified osteoarthritis, unspecified site; Z87.01 Personal history of pneumonia (recurrent); R79.89 Other specified abnormal findings of blood chemistry
CPT/HCPCS: 36415; 80053; 83605; 85025; 85027; 85610; 85730; 87040; 96361; 96365; 96375; 99284

== ENCOUNTER 2020-06-18 17:04 | Inpatient (IN) | payer MEDICARE ==
[2020-06-18 17:09] LABS: Glucose,Whole Blood 302 mg/dL (75-99)
[2020-06-18] MEDS ORDERED: ONDANSETRON 4 MG/2 ML VIAL IVP STA (17:25)
[2020-06-18] MEDS ORDERED: SODIUM CHLORIDE 0.9% 500 ML 500 ML IV STA (17:25)
--- NOTE | 2020-06-18 17:35 | ED ---
General Adult HPI - General Chief complaint: Altered Mental Status Stated complaint: AMS Time Seen by Provider: 06/18/20 17:05 Source: patient, EMS Mode of arrival: EMS Limitations: altered mental status, physical limitation - History of Present Illness Initial comments: Dictation was produced using [employer] dictation software. please excuse any gram matical, word or spelling errors. This patient was cared for during a federal and state declared state of emergency secondary to Covid 19 Chief Complaint: 65-year-old male presents to the emergency department for altered mental status. History of Present Illness: 65-year-old male who has past medical history A. fib, stroke, diabetes, DVT presents to the emergency department for altered mental status. Initial history of present illness was obtained from the nurse who received report from EMS. EMS is not available at this time. Grade 2 varices patient was found to be acutely altered starting approximately 5 PM after shopping at [employer]. It's unclear what patient's medical status was prior to that. More history was obtained from electronic medical record. Patient was just admitted May for cellulitis and admitted for cellulitis of the upper extremity, acute renal failure, nonspecific hepatitis. The ROS documented in this emergency department record has been reviewed and confirmed by me. Those systems with pertinent positive or negative responses have been documented in the HPI. All other systems are other negative and/or noncontributory. PHYSICAL EXAM: General Impression: Alert and oriented x2/4, lethargic HEENT: Normocephalic atraumatic, extra-ocular movements intact, pupils equal and reactive to light bilaterally, mucous membranes moist. Cardiovascular: Heart regular rate and rhythm Chest: No respiratory distress, no retractions, no tachypnea Abdomen: abdomen soft, non-tender, non-distended, no organomegaly Musculoskeletal: Pulses present and equal in all extremities, no peripheral edema, amputated left lower extremity Motor: no focal deficits noted Neurological: CN II-XII grossly intact, weakness to bilateral upper extremities where he holds it up for a split second foot drops it,, NIH of 5 Skin: Intact with no visualized rashes ED course: 65-year-old male presents with altered mental status. As upon arrival shows low-grade temperature 9.7, 97% on 15 L nonrebreather. Rest of vital signs within acceptable limits. We did a sinus contact with who reports that patient's altered mental status didn't fact again acutely at approx imately 5 PM. However he has been very sick for the last several days dealing with blood-borne infection. There is concern that he was exposed to coronavirus with children who may have had symptoms. Given the acuity of his symptoms and positive NIH code stroke was paged. Patient's symptoms not focal however does have a measurable NIH. Case was discussed with Dr. Sage at approximately 5:38 PM. Patient is reevaluated approximately 6:30 PM. He does appear to be improved. He is alert and oriented 4 and is asking for sherbert. Laboratory evaluation obtained. CBC unremarkable Lymphocytopenia 0.5. Coag panel is unremarkable. Metabolic panel shows no acute processes. Glucose sligh tly elevated to 62. Troponin negative. CRP is 19.2. coronavirus test is negative. Computed tomography scan of brain shows no acute processes. CT angioma of the head and neck shows no acute processes. Chest x-ray shows fire take regular pattern with mildly increased attenuation at the mid and lower lung zones consistent with interstitial phase pulmonary edema. Patient has negative rapid coronavirus does however there is concern that this is a false negative. Patient will be admitted for encephalopathy. He is given an aspirin for CVA. Neurology be on consultation. Case discussed with Dr. Alcala who is willing to accept patients care on behalf of [facility] prescription. Considering patient's clinical presentation there is concern for encephalopathy as opposed to CVA. Patient not TPA candidate due to vague history of onset of symptoms. Furthermore patient has rapidly improving symptoms. This point TPA risk outweigh the benefits. EKG interpretation: Ventricular rate 74, sinus rhythm, QRS 90, QTc 432. No IL prolongation, no QTC prolongation, no ST or T-wave changes noted. EKG compared to 2019 showing no changes. Overall, this EKG is unremarkable - Related Data Home Medications Medication Instructions Recorded Confirmed Atorvastatin [Lipitor] 80 mg PO HS 01/09/14 06/18/20 Topiramate [Topamax] 25 mg PO DAILY 01/09/14 06/18/20 Nortriptyline [Pamelor] 50 mg PO HS 08/15/19 06/18/20 Omeprazole [PriLOSEC] 20 mg PO DAILY 08/15/19 06/18/20 Loratadine 10 mg PO DAILY 10/30/19 06/18/20 Celecoxib [CeleBREX] 200 mg PO DAILY 02/29/20 06/18/20 Metoprolol Succinate (ER) [Toprol 50 mg PO DAILY 02/29/20 06/18/20 XL] Warfarin [Coumadin] 3 mg PO MOTUWEFRSA 02/29/20 06/18/20 Warfarin [Coumadin] 4.5 mg PO SUTH 02/29/20 06/18/20 Pregabalin [Lyrica] 300 mg PO BID 05/18/20 06/18/20 lisinopriL [Zestril] 20 mg PO DAILY 05/18/20 06/18/20 Docusate [Colace] 100 mg PO DAILY 05/19/20 06/18/20 Insulin NPH Human Isophane 60 units SQ DAILY 06/18/20 06/18/20 [NovoLIN N] metFORMIN HCL [Glucophage] 500 mg PO DAILY 06/18/20 06/18/20 Previous Rx's Medication Instructions Recorded Aspirin 81 mg PO DAILY 30 Days #30 chew 08/26/19 Amiodarone [Cordarone] 200 mg PO DAILY tab 03/07/20 oxyCODONE-APAP 10-325MG [Percocet 1 tab PO Q6HR PRN #10 tab 03/10/20 10-325 mg] Furosemide [Lasix] 40 mg PO DAILY #0 tab 05/20/20 Allergies Allergy/AdvReac Type Severity Reaction Status Date / Time baclofen Allergy Unknown Verified 06/18/20 18:40 Review of Systems ROS Statement: Those systems with pertinent positive or pertinent negative responses have been documented in the HPI. ROS Other: All systems not noted in ROS Statement are negative. Past Medical History Past Medical History: Atrial Fibrillation, Asthma, COPD, CVA/TIA, Diabetes Mellitus, Deep Vein Thrombosis (DVT), GERD/Reflux, Hyperlipidemia, Hypertension, Neurologic Disorder, Osteoarthritis (OA), Pneumonia, Pulmonary Embolus (PE) Additional Past Medical History / Comment(s): MIGRAINES. " ANITICOAGULANT LUPUS". PNEUMOTHRORAX. PERIPHERAL EDEMA. Per cardiology patient has a hx of proximal afib History of Any Multi-Drug Resistant Organisms: MRSA Date of last positivie culture/infection: 02/28/20 MDRO Source:: MRSA FOOT Past Surgical History: Adenoidectomy, Appendectomy, Tonsillectomy Additional Past Surgical History / Comment(s): HAILE FILTER . VEIN STRIPPING. STENTS IN "PELVIC AREA" NOVEMBER 2004., left BKA Past Anesthesia/Blood Transfusion Reactions: No Reported Reaction Past Psychological History: No Psychological Hx Reported Smoking Status: Former smoker Past Alcohol Use History: None Reported Past Drug Use History: None Reported - Past Family History Mother Family Medical History: Coronary Artery Disease (CAD), Myocardial Infarction (SC), Vascular Disorder Additional Family Medical History / Comment(s): heart disease, peripheral vascular disease. Father Family Medical History: Diabetes Mellitus, Renal Disease General Exam Limitations: altered mental status, physical limitation Course Vital Signs 06/18/20 06/18/20 06/18/20 17:08 17:25 17:40 Temperature 99.7 F H Pulse Rate 75 74 71 Respiratory 24 18 18 Rate Blood Pressure 140/119 153/86 121/76 O2 Sat by Pulse 97 97 97 Oximetry 06/18/20 06/18/20 06/18/20 17:55 18:10 18:47 Temperature 100.9 F H Pulse Rate 75 69 71 Respiratory 18 18 18 Rate Blood Pressure 156/105 137/74 127/67 O2 Sat by Pulse 97 100 98 Oximetry Medical Decision Making - Lab Data Result diagrams: 06/18/20 17:20 06/18/20 17:20 Lab Results 06/18/20 06/18/20 06/18/20 Range/Units 17:07 17:18 17:20 WBC 12.0 H (3.8-10.6) k/uL RBC 4.54 (4.30-5.90) m/uL Hgb 14.5 (13.0-17.5) gm/dL Hct 42.6 (39.0-53.0) % MCV 93.8 (80.0-100.0) fL MCH 31.9 (25.0-35.0) pg MCHC 34.0 (31.0-37.0) g/dL RDW 13.9 (11.5-15.5) % Plt Count 170 (150-450) k/uL MPV 9.1 Neutrophils % 89 % Lymphocytes % 4 % Monocytes % 3 % Eosinophils % 2 % Basophils % 1 % Neutrophils # 10.7 H (1.3-7.7) k/uL Lymphocytes # 0.5 L (1.0-4.8) k/uL Monocytes # 0.4 (0-1.0) k/uL Eosinophils # 0.2 (0-0.7) k/uL Basophils # 0.1 (0-0.2) k/uL PT (9.0-12.0) sec INR (<1.2) APTT (22.0-30.0) sec Sodium (137-145) mmol/L Potassium (3.5-5.1) mmol/L Chloride (98-107) mmol/L Carbon Dioxide (22-30) mmol/L Anion Gap mmol/L BUN (9-20) mg/dL Creatinine (0.66-1.25) mg/dL Est GFR (CKD-EPI)AfAm (>60 ml/min/1.73 sqM) Est GFR (CKD-EPI)NonAf (>60 ml/min/1.73 sqM) Glucose (74-99) mg/dL POC Glucose (mg/dL) 302 H (75-99) mg/dL POC Glu Dock Grader ID Willy [place]as Calcium (8.4-10.2) mg/dL Total Bilirubin (0.2-1.3) mg/dL AST (17-59) U/L ALT (4-49) U/L Alkaline Phosphatase (38-126) U/L Troponin I (0.000-0.034) ng/mL C-Reactive Protein (<10.0) mg/L Total Protein (6.3-8.2) g/dL Albumin (3.5-5.0) g/dL Coronavirus (PCR) Not Detected (Not Detectd) 06/18/20 06/18/20 06/18/20 Range/Units 17:20 17:20 17:20 WBC (3.8-10.6) k/uL RBC (4.30-5.90) m/uL Hgb (13.0-17.5) gm/dL Hct (39.0-53.0) % MCV (80.0-100.0) fL MCH (25.0-35.0) pg MCHC (31.0-37.0) g/dL RDW (11.5-15.5) % Plt Count (150-450) k/uL MPV Neutrophils % % Lymphocytes % % Monocytes % % Eosinophils % % Basophils % % Neutrophils # (1.3-7.7) k/uL Lymphocytes # (1.0-4.8) k/uL Monocytes # (0-1.0) k/uL Eosinophils # (0-0.7) k/uL Basophils # (0-0.2) k/uL PT 15.1 H (9.0-12.0) sec INR 1.5 H (<1.2) APTT 27.7 (22.0-30.0) sec Sodium 138 (137-145) mmol/L Potassium 4.7 (3.5-5.1) mmol/L Chloride 102 (98-107) mmol/L Carbon Dioxide 30 (22-30) mmol/L Anion Gap 6 mmol/L BUN 23 H (9-20) mg/dL Creatinine 1.36 H (0.66-1.25) mg/dL Est GFR (CKD-EPI)AfAm 64 (>60 ml/min/1.73 sqM) Est GFR (CKD-EPI)NonAf 55 (>60 ml/min/1.73 sqM) Glucose 262 H (74-99) mg/dL POC Glucose (mg/dL) (75-99) mg/dL POC Glu Dock Grader ID Calcium 8.9 (8.4-10.2) mg/dL Total Bilirubin 0.6 (0.2-1.3) mg/dL AST 24 (17-59) U/L ALT 34 (4-49) U/L Alkaline Phosphatase 131 H (38-126) U/L Troponin I <0.012 (0.000-0.034) ng/mL C-Reactive Protein 19.2 H (<10.0) mg/L Total Protein 7.9 (6.3-8.2) g/dL Albumin 4.2 (3.5-5.0) g/dL Coronavirus (PCR) (Not Detectd) Disposition Clinical Impression: Encephalopathy Disposition: ADMITTED IP TO THIS [facility] Condition: Fair Referrals: Kristin Emery DO [Primary Care Provider] - 1-2 days Decision Time: 19:52
[2020-06-18 17:38] LABS: Basophils # (A) 0.1 k/uL (0-0.2); Basophils % (A) 1 %; Eosinophils # (A) 0.2 k/uL (0-0.7); Eosinophils % (A) 2 %; HCT 42.6 % (39.0-53.0); HGB 14.5 gm/dL (13.0-17.5); Lymphocytes # (A) 0.5 k/uL (1.0-4.8); Lymphocytes % (A) 4 %; MCH 31.9 pg (25.0-35.0); MCV 93.8 fL (80.0-100.0); Mean Platelet Volume 9.1; Monocytes # (A) 0.4 k/uL (0-1.0); Monocytes % (A) 3 %; Neutrophils # (A) 10.7 k/uL (1.3-7.7); Neutrophils % (A) 89 %; Platelet Count 170 k/uL (150-450); RBC 4.54 m/uL (4.30-5.90); RDW 13.9 % (11.5-15.5)
[2020-06-18 17:46] LABS: INR 1.5 (<1.2); Partial Thromboplastin Time 27.7 sec (22.0-30.0); Prothrombin Time 15.1 sec (9.0-12.0)
[2020-06-18 17:48] LABS: Albumin 4.2 g/dL (3.5-5.0); C Reactive Protein 19.2 mg/L (<10.0); Calcium 8.9 mg/dL (8.4-10.2); Potassium 4.7 mmol/L (3.5-5.1); Total Bilirubin 0.6 mg/dL (0.2-1.3); Total Protein 7.9 g/dL (6.3-8.2)
--- NOTE | 2020-06-18 17:56 | CT ---
EXAMINATION: CT brain wo con for TPA DATE AND TIME: 06/18/2020 5:44 PM CLINICAL INDICATION: PHH; Neuro deficit, acute, stroke suspected TECHNIQUE: Standard departmental protocol. COMPARISON: 10/30/2019 FINDINGS: The calvarium is intact. There is no intracranial hemorrhage. There is no intracranial mass or mass effect. No definite new intra-axial or extra-axial attenuation defect. The paranasal sinuses, middle ear cavities, and mastoid sinus air cells are clear. The orbits are unremarkable. IMPRESSION: NO ACUTE PROCESS.
--- NOTE | 2020-06-18 18:26 | CT ---
EXAMINATION TYPE: CT angio head neck contrast and with 3-D Reconstruction rendering. DATE OF EXAM: 06/18/2020 HISTORY: Difficulty speaking COMPARISON: CT brain without contrast for TPA 06/18/2020 CT DLP: 1085 mGycm. Automated Exposure Control for Dose Reduction was Utilized. TECHNIQUE: CTA scan of the neck is performed with IV Contrast, patient injected with 65 mL of Isovue 370, axial images are obtained, coronal and sagittal reformatted images are reviewed. Three-D recons tructed images are created on an independent workstation and reviewed. FINDINGS: Carotid/Vascular Structures: The right and left carotid and vertebral arterial systems are widely pat ent throughout the neck, without significant stenosis or dissection. The venous structures are unrema rkable. Other: No incidental neck findings. The intracranial anterior and posterior arterial circulation is widely patent, without significant st enosis or filling defect or aneurysm. The dural venous sinuses are unremarkable. Other: No incidental intracranial findings. IMPRESSION: No significant abnormality is seen.
--- NOTE | 2020-06-18 19:30 | XR ---
EXAMINATION: XR chest 1V portable DATE AND TIME: 06/18/2020 7:06 PM CLINICAL INDICATION: PHH; hypoxia TECHNIQUE: Departmental protocol COMPARISON: 03/02/2020 FINDINGS: The lungs demonstrate a fine reticular pattern of mildly increased attenuation throughout the mid and lower lung zones, consistent with a clinical diagnosis of interstitial phase pulmonary edema. The re ticular pattern is more apparent in the left lung base and, therefore, clinical exclusion of pneumoni a will be useful in this radiographic setting. The pleural spaces are negative. The cardiac silhouette appears mildly enlarged, unchanged. Aorta appears tortuous, unchanged. The skeletal structures and soft tissues are negative for acute findings. IMPRESSION: Pulmonary findings noted, mildly more conspicuous than the prior study.
[2020-06-18] MEDS ORDERED: ASPIRIN 81 MG PO STA (19:49)
[2020-06-18 22:05] LABS: Glucose,Whole Blood 217 mg/dL (75-99)
[2020-06-18] MEDS ORDERED: SODIUM CHLORIDE 0.9% 1,000 ML IV STA (22:11)
[2020-06-19] MEDS ORDERED: NALOXONE 0.4 MG/ML 1 ML VIAL IV PRN (00:55)
[2020-06-19] MEDS ORDERED: SODIUM CHLORIDE 0.9% 1,000 ML IV STA ×2 (00:56)
[2020-06-19 02:03] LABS: Appearance,Urine Clear (Clear); Bilirubin,Urine Negative (Negative); Blood,Urine Negative (Negative); Color,Urine Yellow; Glucose,Urine (UA) 2+ (Negative); Ketones,Urine Negative (Negative); Leukocyte Esterase,Urine Negative (Negative); Nitrite,Urine Negative (Negative); PH, Urine 6.5 (5.0-8.0); Protein,Urine Trace (Negative); Specific Gravity,Urine 1.043 (1.001-1.035); Urobilinogen,Urine <2.0 mg/dL (<2.0)
[2020-06-19 06:17] LABS: Basophils % (A) 0 %; Eosinophils # (A) 0.1 k/uL (0-0.7); Eosinophils % (A) 1 %; HCT 35.5 % (39.0-53.0); HGB 11.9 gm/dL (13.0-17.5); Lymphocytes # (A) 1.5 k/uL (1.0-4.8); Lymphocytes % (A) 14 %; MCH 31.7 pg (25.0-35.0); MCHC 33.5 g/dL (31.0-37.0); MCV 94.7 fL (80.0-100.0); Mean Platelet Volume 8.2; Monocytes # (A) 0.5 k/uL (0-1.0); Monocytes % (A) 5 %; Neutrophils # (A) 8.2 k/uL (1.3-7.7); Neutrophils % (A) 78 %; Platelet Count 147 k/uL (150-450); RBC 3.75 m/uL (4.30-5.90); RDW 13.7 % (11.5-15.5); WBC 10.5 k/uL (3.8-10.6)
[2020-06-19 06:33] LABS: Calcium 7.8 mg/dL (8.4-10.2); Potassium 3.8 mmol/L (3.5-5.1)
[2020-06-19 06:44] LABS: INR 1.5 (<1.2); Prothrombin Time 14.6 sec (9.0-12.0)
[2020-06-19] MEDS: INSULIN NPH 300 UNIT/3 ML VIAL SQ SCH (10:44)
[2020-06-19] MEDS: PREGABALIN 100 MG CAP PO SCH ×2 (10:45→21:33)
[2020-06-19] MEDS: PANTOPRAZOLE 40 MG TABLET PO SCH (10:45)
[2020-06-19] MEDS: METOPROLOL SUCCINATE (ER) 50 MG TAB.ER.24H PO SCH (10:45)
[2020-06-19] MEDS: LORATADINE 10 MG TAB PO SCH (10:45)
[2020-06-19] MEDS: oxyCODONE-APAP 10-325MG 1 EACH TAB PO PRN ×2 (10:46→20:24)
[2020-06-19] MEDS: AMIODARONE 200 MG TAB PO SCH (10:46)
[2020-06-19 10:53] LABS: Glucose,Whole Blood 179 mg/dL (75-99)
[2020-06-19 12:38] LABS: Glucose,Whole Blood 197 mg/dL (75-99)
[2020-06-19 12:38] LABS: Cholesterol 106 mg/dL (<200); HDL Cholesterol 32 mg/dL (40-60); LDL Cholesterol,Calculated 57 mg/dL (0-99); Triglycerides 86 mg/dL (<150)
--- NOTE | 2020-06-19 13:09 | P.CNNES ---
History of Present Illness Consult date: 06/19/20 Requesting physician: Alexis Hood Reason for Consult: Code stroke for altered mental status History of Present Illness: This is a 65-year-old gentleman with medical history TIA X2 (2003, 2004), atrial fibrillation, diabetes, DVT, s/p amputation above left knee, pulmonary embolism s/p green filter, hyperlipidemia, hypertension, , presented emergency department on 06/18/2020 for altered mental status. Some of the history is obtained from medical records since patient is unable to provide information for me. It is documented that the patient had change in mentation around around 5 PM on 06/18/2020 after shopping at [employer]. Patient does not recall what happened he stated that he remembers going shopping but after that he doesn't he just the tendon itself in the hospital. He stated that the he was a feeling cold and he notified his about that yesterday. Upon waking up in the hospital he denies any urinary or bowel incontinence. Denies of any tongue bite or soreness of the fundi. He denies any history of seizures. He denies of any recent fever cough or any recent sick contacts. He denies of any neck pain or any headaches. He denies any nausea or vomiting. He did state that he is on Coumadin and the he says that he hasn't missed any of his medication but looks like that the INR is subtherapeutic 1.5. Patient stated that he is on aspirin 81 mg as well as he is on the Lipitor 80mg. Regarding his 2 previous TIA that was in 2003 and 2004 according to the patient that he doesn't remember what symptoms he had that. He does have history of migraine and seems like he is on Topamax at 25 mg daily. Seems that the patient has cellulitis of upper extremity as well as acute renal failure and nonspecific hepatitis in 05/2020. As a result code stroke was activated. Initial vital signs: Blood pressure of 140/119, heart rate is 75, respiratory of 24, temperature of 99.7 Fahrenheit axillary and the repeat is 100.9 Fahrenheit and the pulse ox is 97 the percent on nonrebreather 15L. CT of the head is reported as the no acute process. CT angiography of the head and neck is reported as no significant abnormality is seen. EKG is reported as accelerated junctional rhythm. Left axis deviation. Abnormal EKG. Initial white blood cell is 12.0 and it's slightly neutrophilic and the repeated as at 10.5 which is normal. BUN is 23 and a creatinine is 1.36 and a repeat creatinine is 1.17 which is normal. POC glucose is 302. Blood cultures came back gram-positive cocci. Review of Systems Review of system: The 12 point system was reviewed and apparent positive and negative per HPI. Past Medical History Past Medical History: Atrial Fibrillation, Asthma, COPD, CVA/TIA, Diabetes Mellitus, Deep Vein Thrombosis (DVT), GERD/Reflux, Hyperlipidemia, Hypertension, Neurologic Disorder, Osteoarthritis (OA), Pneumonia, Pulmonary Embolus (PE) Additional Past Medical History / Comment(s): MIGRAINES. " ANITICOAGULANT LUPUS". PNEUMOTHRORAX. PERIPHERAL EDEMA. Per cardiology patient has a hx of proximal afib History of Any Multi-Drug Resistant Organisms: MRSA Date of last positivie culture/infection: 02/28/20 MDRO Source:: MRSA FOOT Past Surgical History: Adenoidectomy, Appendectomy, Tonsillectomy Additional Past Surgical History / Comment(s): HAILE FILTER . VEIN STRIPPING. STENTS IN "PELVIC AREA" NOVEMBER 2004., left BKA Past Anesthesia/Blood Transfusion Reactions: No Reported Reaction Past Psychological History: No Psychological Hx Reported Additional Psychological History / Comment(s): TAKES CYMBALTA FOR CARPAL TUNNEL. Smoking Status: Former smoker Past Alcohol Use History: None Reported Past Drug Use History: None Reported - Past Family History Mother Family Medical History: Coronary Artery Disease (CAD), Myocardial Infarction (AR), Vascular Disorder Additional Family Medical History / Comment(s): heart disease, peripheral vascular disease. Father Family Medical History: Diabetes Mellitus, Renal Disease Medications and Allergies Home Medications Medication Instructions Recorded Confirmed Type Atorvastatin [Lipitor] 80 mg PO HS 01/09/14 06/18/20 History Topiramate [Topamax] 25 mg PO DAILY 01/09/14 06/18/20 History Nortriptyline [Pamelor] 50 mg PO HS 08/15/19 06/18/20 History Omeprazole [PriLOSEC] 20 mg PO DAILY 08/15/19 06/18/20 History Aspirin 81 mg PO DAILY 30 Days #30 chew 08/26/19 06/18/20 Rx Loratadine 10 mg PO DAILY 10/30/19 06/18/20 History Celecoxib [CeleBREX] 200 mg PO DAILY 02/29/20 06/18/20 History Metoprolol Succinate (ER) [Toprol 50 mg PO DAILY 02/29/20 06/18/20 History XL] Warfarin [Coumadin] 3 mg PO [id number] 02/29/20 06/18/20 History Warfarin [Coumadin] 4.5 mg PO SUTH 02/29/20 06/18/20 History Amiodarone [Cordarone] 200 mg PO DAILY tab 03/07/20 06/18/20 Rx oxyCODONE-APAP 10-325MG [Percocet 1 tab PO Q6HR PRN #10 tab 03/10/20 06/18/20 Rx 10-325 mg] Pregabalin [Lyrica] 300 mg PO BID 05/18/20 06/18/20 History lisinopriL [Zestril] 20 mg PO DAILY 05/18/20 06/18/20 History Docusate [Colace] 100 mg PO DAILY 05/19/20 06/18/20 History Furosemide [Lasix] 40 mg PO DAILY #0 tab 05/20/20 06/18/20 Rx Insulin NPH Human Isophane 60 units SQ DAILY 06/18/20 06/18/20 History [NovoLIN N] metFORMIN HCL [Glucophage] 500 mg PO DAILY 06/18/20 06/18/20 History Allergies Allergy/AdvReac Type Severity Reaction Status Date / Time baclofen Allergy Unknown Verified 06/18/20 18:40 Physical Examination - Vital Signs Vital Signs: Vital Signs Temp Pulse Pulse Resp BP BP Pulse Ox 06/19/20 08:45 98.7 F 58 L 18 104/70 93 L 06/19/20 06:00 98.9 F 54 L 20 96/58 96 06/19/20 03:03 101 H 20 148/97 96 06/19/20 01:00 64 19 94/57 97 06/19/20 00:06 60 19 111/60 97 06/18/20 22:59 61 19 97/52 96 06/18/20 22:20 110/65 06/18/20 22:00 65 18 100/56 96 06/18/20 21:05 98.6 F 69 19 108/70 97 06/18/20 20:07 72 19 111/62 100 06/18/20 19:45 75 19 118/70 99 06/18/20 18:47 71 18 127/67 98 06/18/20 18:10 69 18 137/74 100 06/18/20 17:55 100.9 F H 75 18 156/105 97 06/18/20 17:40 71 18 121/76 97 06/18/20 17:25 74 18 153/86 97 06/18/20 17:08 99.7 F H 75 24 140/119 97 Intake and Output 06/18/20 06/19/20 06/19/20 22:59 06:59 14:59 Intake Total 250 Balance 250 Intake: Intake, IV Titration 50 Amount cefTRIAXone 1 gm In 50 Sodium Chloride 0.9% 50 ml @ 100 mls/hr IVPB Q12H HELENE Rx#:[id number] Oral 200 Other: # Voids 11 Weight 124.738 kg 124.738 kg GENERAL: The patient is lying in bed and is not in acute distress. HENT: Negative Brudzinski sign. No neck stiffness. CHEST: The heart rate is regular rate rhythm. No murmurs to auscultation. LUNG: Clear to auscultation bilaterally no wheezing noted throughout. Not labored breathing. ABDOMEN/GI: Bowel sounds present in all 4 quadrants. No tenderness to palpation throughout. NEUROLOGICAL: Higher mental function: The patient is awake, alert, oriented to self, place and time. Patient is following commands. No aphasia and no neglect. Cranial nerves: The pupils are round, equal and reactive to light and accommodation. Visual swartz are full to confrontation throughout. Extraocular movement is intact no nystagmus is noted. Facial sensation is normal to touch throughout. The facial strength is felt right nasolabial flatenning but patient said this is normal for him. Hearing is normal bilaterally to hand rub. Tongue is midline and moved [id number] without any difficulty. No dysarthria is noted. Shoulder shrug is normal bilaterally. Motor: Gait is deferred. The strength is 5/5 throughout (left lower extremity is amputated above knee). Normal tone and bulk. Cerebellum: Normal finger to nose bilaterally. Sensation: Sensation is normal to touch throughout. Reflexes (right/left): Left lower extremity amputated above knee. But other 2+ throughout except right ankle 1+. Plantars is mute over the right. . Results - Laboratory Findings CBC and BMP: 06/19/20 05:40 06/19/20 05:40 Abnormal Lab Findings: Abnormal Labs 06/18/20 06/18/20 06/18/20 17:07 17:20 17:20 WBC 12.0 H RBC Hgb Hct Plt Count Neutrophils # 10.7 H Lymphocytes # 0.5 L PT 15.1 H INR 1.5 H Chloride BUN Creatinine Glucose POC Glucose (mg/dL) 302 H Calcium Alkaline Phosphatase C-Reactive Protein Ur Specific Stephenson Urine Protein Urine Glucose (UA) 06/18/20 06/18/20 06/19/20 17:20 21:58 01:42 WBC RBC Hgb Hct Plt Count Neutrophils # Lymphocytes # PT INR Chloride BUN 23 H Creatinine 1.36 H Glucose 262 H POC Glucose (mg/dL) 217 H Calcium Alkaline Phosphatase 131 H C-Reactive Protein 19.2 H Ur Specific Stephenson 1.043 H Urine Protein Trace H Urine Glucose (UA) 2+ H 06/19/20 06/19/20 06/19/20 05:40 05:40 05:40 WBC RBC 3.75 L Hgb 11.9 L Hct 35.5 L Plt Count 147 L Neutrophils # 8.2 H Lymphocytes # PT 14.6 H INR 1.5 H Chloride 108 H BUN 21 H Creatinine Glucose 169 H POC Glucose (mg/dL) Calcium 7.8 L Alkaline Phosphatase C-Reactive Protein Ur Specific Stephenson Urine Protein Urine Glucose (UA) 06/19/20 10:52 WBC RBC Hgb Hct Plt Count Neutrophils # Lymphocytes # PT INR Chloride BUN Creatinine Glucose POC Glucose (mg/dL) 179 H Calcium Alkaline Phosphatase C-Reactive Protein Ur Specific Stephenson Urine Protein Urine Glucose (UA) Assessment and Plan Assessment: Altered mental status: Possibly due to mild multifactorial one of the reasons underlying infection especially with the low-grade fever and leukocytosis (+ gram positive cocci) and component of toxic metabolic encephalopathy with uncontrolled glucose--mentation improved. Acute kidney insufficiency---resolved History of atrial fibrillation was subtherapeutic INR (INR 1.5) Diabetes mellitus with uncontrolled Hypertension Hyperlipidemia History of DVT History of Pulmonary embolism s/p geen filter History above left knee amputation 03/2020 (per patient) Plan: I ordered MRI of the brain to rule out stroke especially with a patient with a history of atrial fibrillation was subtherapeutic INR and intrcranial process. Ordered a routine EEG and will not start the patient on antiepileptic drug unless there is epidural discharges or seizure seen on the EEG. Patient is currently on aspirin 81 mg as well as on Coumadin. Pending MRI of the brain. I notified the nurse that the if there is any stroke or any lesion on the brain on the MRI to contact neurology team VICTORIANO. Patient was started on Lipitor 80 mg daily by the primary team. I ordered lipid panel as well as limited that 2-D echo I consulted physical therapy and occupation therapy. Vitamin B12 is 1078 on 12/24/2019, TSH is 2.520 12/24/2019. I will not repeat them. I ordered the ammonia level and folate. She is currently on ceftriaxone. I consulted the infection disease to rule out any underlying infection. I think the patient might benefit from a lumbar puncture especially with altered mental status and low-grade fever but his mentation improved so drastically which seems atypical for meningoencephalitis. Therefore I'll defer the request of lumbar puncture to the infection disease team. Defer the management of uncontrolled sugar and any underlying metabolic abnormality to the primary team. The plan was discussed with the patient as well as with the patient nurse. Thank you for the consultation. Dr. Maya is covering for neurology service over this weekend. Tanvir Perez M.D. Neuro-hospitalist Time with Patient: Greater than 30
[2020-06-19] MEDS ORDERED: VANCOMYCIN IV PER PHARMACY 1 EACH MISC MISCELLANE PRN (14:33)
[2020-06-19] MEDS: INSULIN ASPART (NovoLOG) 100 UNIT/ML VIAL SQ SCH ×3 (15:06→21:34)
[2020-06-19] MEDS: TOPIRAMATE 25 MG TAB PO SCH (15:07)
--- NOTE | 2020-06-19 15:57 | EEG ---
ELECTROENCEPHALOGRAM REPORT DATE OF SERVICE: 06/19/2020 CLINICAL HISTORY: This is a 65-year-old gentleman who presented to the emergency department on 06/18/2020 for altered mental status. This video EEG is obtained to evaluate for seizure and epileptiform activity. RELEVANT MEDICATION: Patient is not on any antiepileptic drugs. EEG TYPE: A routine 21-channel EEG was performed with video using the 10/20 electrode placement system. EEG DESCRIPTION: Wakefulness is only obtained. During wakefulness, there is a posterior-dominant rhythm of low to moderate voltage, reactive, well modulated, of 6.5 to 7.5 hertz activity. There is no drowsiness or stage II sleep during the study. INTERICTAL AND ICTAL: None. ACTIVATION PROCEDURE: Photic stimulation and hyperventilation were not performed. CLINICAL INTERPRETATION: This is an abnormal routine EEG. The background slowing is suggestive of mild to moderate encephalopathy of unspecified etiology. There are no focal slowing, epileptiform discharges or seizure seen during the study. Clinical correlation is recommended. MMDELVIN / WILLN: [id number] / MICHEAL
[2020-06-19] MEDS ORDERED: VANCOMYCIN 2,000 MG in SODIUM CHLORIDE 0.9% 500 ML 500 ML IVPB SCH (16:00)
[2020-06-19 16:54] LABS: Glucose,Whole Blood 199 mg/dL (75-99)
--- NOTE | 2020-06-19 17:00 | ECHOF ---
Referral Reason:limited 2d echo for possible stroke MEASUREMENTS -------- HEIGHT: 188.0 cm WEIGHT: 124.7 kg BP: MV E Josh: 0.68 m/s MV DecT: 280 ms MV A Josh: 0.76 m/s MV E/A Ratio: 0.90 FINDINGS -------- This was a technically difficult study with suboptimal views. Limited Study Overall left ventricular systolic function is low-normal with, an EF between 50 - 55 %. The RV was not well visualized. The left atrium was not well visualized. The right atrium was not well visualized. The aortic valve was not well visualized. The mitral valve was not well visualized. The tricuspid valve was not well visualized. The pulmonic valve was not well visualized. IVC Not well visulized. CONCLUSIONS -------- 1. Overall left ventricular systolic function is low-normal with, an EF between 50 - 55 %. DIRECTOR OF ONLINE MERCHANDISING: Courtney Villegas RDCS
[2020-06-19] MEDS ORDERED: WARFARIN 2 MG TAB PO ONE (18:00)
[2020-06-19 20:39] LABS: Glucose,Whole Blood 113 mg/dL (75-99)
[2020-06-19] MEDS: ATORVASTATIN 80 MG TAB PO SCH (21:33)
--- NOTE | 2020-06-20 01:09 | CONS ---
CONSULTATION DATE OF SERVICE: 06/19/2020 REASON FOR FOLLOWUP: Fever, rule out infection. HISTORY OF PRESENT ILLNESS: The patient is a 65-year-old male with past medical history significant for left diabetic foot infection with MRSA, status post left [id number] amputation and this patient has been brought to the ER after apparently the patient noticed some mental status changes and not making any sense per his his . The patient denies having any headache or URI symptoms. No chest pain or shortness of breath. He did have a cough, moderate in intensity and is bringing up some yellow sputum. No hemoptysis. No pleuritic chest pain. No nausea, no vomiting. No abdominal pain. No diarrhea. With these symptoms, the patient was seen and evaluated by the ER physician. On arrival to the ER, the patient did have fever of 100.9 degrees Fahrenheit. The patient did have a normal white count with left shift but no lymphopenia and INR was 1.5. The patient did have a Zarate PCR which came back negative. Blood cultures came back positive with gram-positive cocci that prompted Infectious Disease consultation. Patient did have a chest x-ray which did show fine reticular pattern slightly increased intensity. Infectious disease was consulted for further management and concern for infection. REVIEW OF SYSTEMS: Positive points have been mentioned in HPI. Rest of systems are negative. PAST MEDICAL HISTORY: Atrial fibrillation, asthma, COPD, CVA, TIA, diabetes mellitus, DVT, gastroesophageal reflux disease, hyperlipidemia, hypertension, osteoarthritis, pneumonia. PAST SURGICAL HISTORY: Adenoidectomy, appendectomy, tonsillectomy. SOCIAL HISTORY: Remote history of smoking. No drinking or drug use. FAMILY HISTORY: No pertinent findings noticed. ALLERGIES: BACLOFEN. MEDICATIONS: Include the patient is currently on the Lipitor, Rocephin 1 g q.12 hours, Colace, NovoLog, Claritin, Toprol XL, Protonix, Lyrica, and vancomycin, pharmacy to dose. PHYSICAL EXAMINATION: Blood pressure 131/76, pulse of 49. Temperature 97.9. He is 96% on room air. General description: The patient is a middle-aged male lying in bed in no distress. No tachypnea or accessory muscles of respiration use. HEENT: Shows slight pallor. No scleral icterus. Oral mucous membranes dry. No pharyngeal erythema or thrush. Neck: Trachea central. No thyromegaly. Lungs unlabored breathing. Coarse breath sounds bilaterally. No wheeze. Heart S1, S2. Regular rate and rhythm. ABDOMEN: Soft, no tenderness. EXTREMITIES: No edema of the feet. SKIN EXAMINATION: No rash or mass palpable. Neurologically: Patient is awake, alert, oriented times three. Mood and affect normal. LABS: Hemoglobin is 11.1, white count 12. BUN of 23, creatinine 1.36. Repeat creatinine is 1.17. Blood culture with gram-positive cocci. DIAGNOSTIC IMPRESSION AND PLAN: Patient admitted to the hospital with fever and mental status changes in this patient whose mentation is back to normal. He is complaining of cough with yellow sputum and evidence of gram-positive bacteremia. Concern likely for pneumonia, possible strep pneumo versus MRSA in this patient who did have history of MRSA infection. PLAN: 1. Blood cultures will be repeated to document clearance of bacteremia. 2. Will obtain sputum for Gram stain culture. 3. Rocephin 2 grams daily. 4. Vancomycin can be safely discontinued and not Staph aureus. 5. We will follow on clinical condition and culture to further adjust medication if needed. Thank you for this consultation. Will follow this patient along with you. MMODL / IJN: [id number] /
[2020-06-20 06:03] LABS: Glucose,Whole Blood 159 mg/dL (75-99)
[2020-06-20] MEDS: INSULIN ASPART (NovoLOG) 100 UNIT/ML VIAL SQ SCH ×4 (06:30→21:12)
[2020-06-20] MEDS: TOPIRAMATE 25 MG TAB PO SCH (09:33)
[2020-06-20] MEDS: METOPROLOL SUCCINATE (ER) 50 MG TAB.ER.24H PO SCH (09:33)
[2020-06-20] MEDS: DOCUSATE 100 MG CAP PO SCH (09:33)
[2020-06-20] MEDS: AMIODARONE 200 MG TAB PO SCH (09:33)
[2020-06-20] MEDS: PREGABALIN 100 MG CAP PO SCH ×2 (09:33→21:19)
[2020-06-20] MEDS: PANTOPRAZOLE 40 MG TABLET PO SCH (09:33)
[2020-06-20] MEDS: ASPIRIN 81 MG PO SCH (09:33)
[2020-06-20] MEDS: DOXYCYCLINE 100 MG CAP PO SCH ×2 (09:34→22:31)
[2020-06-20] MEDS: LORATADINE 10 MG TAB PO SCH (09:34)
[2020-06-20] MEDS: oxyCODONE-APAP 10-325MG 1 EACH TAB PO PRN ×2 (09:52→21:19)
[2020-06-20 10:33] LABS: INR 1.3 (<1.2); Prothrombin Time 13.2 sec (9.0-12.0)
[2020-06-20] MEDS: INSULIN NPH 300 UNIT/3 ML VIAL SQ SCH (11:09)
[2020-06-20 11:56] LABS: Glucose,Whole Blood 246 mg/dL (75-99)
--- NOTE | 2020-06-20 15:06 | P.HPIM ---
History of Present Illness H&P Date: 06/19/20 Chief Complaint: Mental status change 65-year-old gentleman with medical history TIA X2 (2003, 2004), atrial fibrillation, diabetes, DVT, s/p amputation above left knee, pulmonary embolism s/p green filter, hyperlipidemia, hypertension, , presented emergency department on 06/18/2020 for altered mental status. Some of the history is obtained from medical records since patient is unable to provide information for me. It is documented that the patient had change in mentation around around 5 PM on 06/18/2020 after shopping at [employer]. Patient does not recall what happened he stated that he remembers going shopping but after that he doesn't he just the tendon itself in the hospital. He stated that the he was a feeling cold and he notified his about that yesterday. Upon waking up in the hospital he denies any urinary or bowel incontinence. Denies of any tongue bite or soreness of the fundi. He denies any history of seizures. He denies of any recent fever cough or any recent sick contacts. He denies of any neck pain or any headaches. He denies any nausea or vomiting. He did state that he is on Coumadin and the he says that he hasn't missed any of his medication but looks like that the INR is subtherapeutic 1.5. Patient stated that he is on aspirin 81 mg as well as he is on the Lipitor 80mg. Code stroke was activated. Initial vital signs: Blood pressure of 140/119, heart rate is 75, respiratory of 24, temperature of 99.7 Fahrenheit axillary and the repeat is 100.9 Fahrenheit and the pulse ox is 97 the percent on nonrebreather 15L. CT of the head is reported as the no acute process. CT angiography of the head and neck is reported as no significant abnormality is seen. EKG is reported as accelerated junctional rhythm. Left axis deviation. Abnormal EKG. Initial white blood cell is 12.0 and it's slightly neutrophilic and the repeated as at 10.5 which is normal. BUN is 23 and a creatinine is 1.36 and a repeat creatinine is 1.17 which is normal. POC glucose is 302. Review of Systems REVIEW OF SYSTEMS: CONSTITUTIONAL: No fever, no malaise, no fatigue. HEENT: No recent visual problems or hearing problems. Denied any sore throat. CARDIOVASCULAR: No chest pain, orthopnea, PND, no palpitations, no syncope. PULMONARY: No shortness of breath, no cough, no hemoptysis. GASTROINTESTINAL: No diarrhea, no nausea, no vomiting, no abdominal pain. NEUROLOGICAL: No headaches, no weakness, no numbness. HEMATOLOGICAL: Denies any bleeding or petechiae. GENITOURINARY: Denies any burning micturition, frequency, or urgency. MUSCULOSKELETAL/RHEUMATOLOGICAL: Denies any joint pain, swelling, or any muscle pain. ENDOCRINE: Denies any polyuria or polydipsia. The rest of the 14-point review of systems is negative. Past Medical History Past Medical History: Atrial Fibrillation, Asthma, COPD, CVA/TIA, Diabetes Mellitus, Deep Vein Thrombosis (DVT), GERD/Reflux, Hyperlipidemia, Hypertension, Neurologic Disorder, Osteoarthritis (OA), Pneumonia, Pulmonary Embolus (PE) Additional Past Medical History / Comment(s): MIGRAINES. " ANITICOAGULANT LUPUS". PNEUMOTHRORAX. PERIPHERAL EDEMA. Per cardiology patient has a hx of proximal afib History of Any Multi-Drug Resistant Organisms: MRSA Date of last positivie culture/infection: 02/28/20 MDRO Source:: MRSA FOOT Past Surgical History: Adenoidectomy, Appendectomy, Tonsillectomy Additional Past Surgical History / Comment(s): HAILE FILTER . VEIN STRIPPING. STENTS IN "PELVIC AREA" NOVEMBER 2004., left BKA Past Anesthesia/Blood Transfusion Reactions: No Reported Reaction Past Psychological History: No Psychological Hx Reported Additional Psychological History / Comment(s): TAKES CYMBALTA FOR CARPAL TUNNEL. Smoking Status: Former smoker Past Alcohol Use History: None Reported Past Drug Use History: None Reported - Past Family History Mother Family Medical History: Coronary Artery Disease (CAD), Myocardial Infarction (DC), Vascular Disorder Additional Family Medical History / Comment(s): heart disease, peripheral vascular disease. Father Family Medical History: Diabetes Mellitus, Renal Disease Medications and Allergies Home Medications Medication Instructions Recorded Confirmed Type Atorvastatin [Lipitor] 80 mg PO HS 01/09/14 06/18/20 History Topiramate [Topamax] 25 mg PO DAILY 01/09/14 06/18/20 History Nortriptyline [Pamelor] 50 mg PO HS 08/15/19 06/18/20 History Omeprazole [PriLOSEC] 20 mg PO DAILY 08/15/19 06/18/20 History Aspirin 81 mg PO DAILY 30 Days #30 chew 08/26/19 06/18/20 Rx Loratadine 10 mg PO DAILY 10/30/19 06/18/20 History Celecoxib [CeleBREX] 200 mg PO DAILY 02/29/20 06/18/20 History Metoprolol Succinate (ER) [Toprol 50 mg PO DAILY 02/29/20 06/18/20 History XL] Warfarin [Coumadin] 3 mg PO [id number] 02/29/20 06/18/20 History Warfarin [Coumadin] 4.5 mg PO SUTH 02/29/20 06/18/20 History Amiodarone [Cordarone] 200 mg PO DAILY tab 03/07/20 06/18/20 Rx oxyCODONE-APAP 10-325MG [Percocet 1 tab PO Q6HR PRN #10 tab 03/10/20 06/18/20 Rx 10-325 mg] Pregabalin [Lyrica] 300 mg PO BID 05/18/20 06/18/20 History lisinopriL [Zestril] 20 mg PO DAILY 05/18/20 06/18/20 History Docusate [Colace] 100 mg PO DAILY 05/19/20 06/18/20 History Furosemide [Lasix] 40 mg PO DAILY #0 tab 05/20/20 06/18/20 Rx Insulin NPH Human Isophane 60 units SQ DAILY 06/18/20 06/18/20 History [NovoLIN N] metFORMIN HCL [Glucophage] 500 mg PO DAILY 06/18/20 06/18/20 History Allergies Allergy/AdvReac Type Severity Reaction Status Date / Time baclofen Allergy Unknown Verified 06/18/20 18:40 Physical Exam Vitals: Vital Signs Temp Pulse Pulse Resp BP BP Pulse Ox 06/19/20 08:45 98.7 F 58 L 18 104/70 93 L 06/19/20 06:00 98.9 F 54 L 20 96/58 96 06/19/20 03:03 101 H 20 148/97 96 06/19/20 01:00 64 19 94/57 97 06/19/20 00:06 60 19 111/60 97 06/18/20 22:59 61 19 97/52 96 06/18/20 22:20 110/65 06/18/20 22:00 65 18 100/56 96 06/18/20 21:05 98.6 F 69 19 108/70 97 06/18/20 20:07 72 19 111/62 100 06/18/20 19:45 75 19 118/70 99 06/18/20 18:47 71 18 127/67 98 06/18/20 18:10 69 18 137/74 100 06/18/20 17:55 100.9 F H 75 18 156/105 97 06/18/20 17:40 71 18 121/76 97 06/18/20 17:25 74 18 153/86 97 06/18/20 17:08 99.7 F H 75 24 140/119 97 Intake and Output 06/18/20 06/19/20 06/19/20 22:59 06:59 14:59 Intake Total 250 Balance 250 Intake: Intake, IV Titration 50 Amount cefTRIAXone 1 gm In 50 Sodium Chloride 0.9% 50 ml @ 100 mls/hr IVPB Q12H [facility] Rx#:[id number] Oral 200 Other: # Voids 11 Weight 124.738 kg 124.738 kg PHYSICAL EXAMINATION: GENERAL: The patient is alert and oriented x3, not in any acute distress. Well developed, well nourished. HEENT: Pupils are round and equally reacting to light. EOMI. No scleral icterus. No conjunctival pallor. Normocephalic, atraumatic. No pharyngeal erythema. No thyromegaly. CARDIOVASCULAR: S1 and S2 present. No murmurs, rubs, or gallops. PULMONARY: Chest is clear to auscultation, no wheezing or crackles. ABDOMEN: Soft, nontender, nondistended, normoactive bowel sounds. No palpable organomegaly. MUSCULOSKELETAL: No joint swelling or deformity. EXTREMITIES: No cyanosis, clubbing, or pedal edema. NEUROLOGICAL: Gross neurological examination did not reveal any focal deficits. SKIN: No rashes. Results CBC & Chem 7: 06/19/20 05:40 06/19/20 05:40 Labs: Abnormal Lab Results - Last 24 Hours (Table) 06/18/20 06/18/20 06/18/20 Range/Units 17:07 17:20 17:20 WBC 12.0 H (3.8-10.6) k/uL RBC (4.30-5.90) m/uL Hgb (13.0-17.5) gm/dL Hct (39.0-53.0) % Plt Count (150-450) k/uL Neutrophils # 10.7 H (1.3-7.7) k/uL Lymphocytes # 0.5 L (1.0-4.8) k/uL PT 15.1 H (9.0-12.0) sec INR 1.5 H (<1.2) Chloride (98-107) mmol/L BUN (9-20) mg/dL Creatinine (0.66-1.25) mg/dL Glucose (74-99) mg/dL POC Glucose (mg/dL) 302 H (75-99) mg/dL Calcium (8.4-10.2) mg/dL Alkaline Phosphatase (38-126) U/L C-Reactive Protein (<10.0) mg/L HDL Cholesterol (40-60) mg/dL Ur Specific [place] (1.001-1.035) Urine Protein (Negative) Urine Glucose (UA) (Negative) 06/18/20 06/18/20 06/19/20 Range/Units 17:20 21:58 01:42 WBC (3.8-10.6) k/uL RBC (4.30-5.90) m/uL Hgb (13.0-17.5) gm/dL Hct (39.0-53.0) % Plt Count (150-450) k/uL Neutrophils # (1.3-7.7) k/uL Lymphocytes # (1.0-4.8) k/uL PT (9.0-12.0) sec INR (<1.2) Chloride (98-107) mmol/L BUN 23 H (9-20) mg/dL Creatinine 1.36 H (0.66-1.25) mg/dL Glucose 262 H (74-99) mg/dL POC Glucose (mg/dL) 217 H (75-99) mg/dL Calcium (8.4-10.2) mg/dL Alkaline Phosphatase 131 H (38-126) U/L C-Reactive Protein 19.2 H (<10.0) mg/L HDL Cholesterol (40-60) mg/dL Ur Specific [place] 1.043 H (1.001-1.035) Urine Protein Trace H (Negative) Urine Glucose (UA) 2+ H (Negative) 06/19/20 06/19/20 06/19/20 Range/Units 05:40 05:40 05:40 WBC (3.8-10.6) k/uL RBC 3.75 L (4.30-5.90) m/uL Hgb 11.9 L (13.0-17.5) gm/dL Hct 35.5 L (39.0-53.0) % Plt Count 147 L (150-450) k/uL Neutrophils # 8.2 H (1.3-7.7) k/uL Lymphocytes # (1.0-4.8) k/uL PT 14.6 H (9.0-12.0) sec INR 1.5 H (<1.2) Chloride 108 H (98-107) mmol/L BUN 21 H (9-20) mg/dL Creatinine (0.66-1.25) mg/dL Glucose 169 H (74-99) mg/dL POC Glucose (mg/dL) (75-99) mg/dL Calcium 7.8 L (8.4-10.2) mg/dL Alkaline Phosphatase (38-126) U/L C-Reactive Protein (<10.0) mg/L HDL Cholesterol (40-60) mg/dL Ur Specific [place] (1.001-1.035) Urine Protein (Negative) Urine Glucose (UA) (Negative) 06/19/20 06/19/20 06/19/20 Range/Units 05:40 10:52 12:27 WBC (3.8-10.6) k/uL RBC (4.30-5.90) m/uL Hgb (13.0-17.5) gm/dL Hct (39.0-53.0) % Plt Count (150-450) k/uL Neutrophils # (1.3-7.7) k/uL Lymphocytes # (1.0-4.8) k/uL PT (9.0-12.0) sec INR (<1.2) Chloride (98-107) mmol/L BUN (9-20) mg/dL Creatinine (0.66-1.25) mg/dL Glucose (74-99) mg/dL POC Glucose (mg/dL) 179 H 197 H (75-99) mg/dL Calcium (8.4-10.2) mg/dL Alkaline Phosphatase (38-126) U/L C-Reactive Protein (<10.0) mg/L HDL Cholesterol 32 L (40-60) mg/dL Ur Specific [place] (1.001-1.035) Urine Protein (Negative) Urine Glucose (UA) (Negative) Microbiology - Last 24 Hours (Table) 06/19/20 01:43 Blood Culture - Final Blood Thrombosis Risk Factor Assmnt - Choose All That Apply Each Factor Represents 1 point: Obesity (BMI >25) Each Risk Factor Represents 2 Points: Age 61-74 years Each Risk Factor Represents 3 Points: History of DVT/PE, Positive Lupus Anticoagulant Thrombosis Risk Factor Assessment Total Risk Factor Score: 9 Thrombosis Risk Factor Assessment Level: High Risk Assessment and Plan Assessment: 1. Altered mental status: - Possibly due to mild multifactorial one of the reasons underlying infection especially with the low-grade fever and leukocytosis/ blood culture positive for gram positive cocci and component of toxic metabolic encephalopathy with uncontrolled glucose--mentation improved. 2. Acute kidney insufficiency---resolved 3. Gram-positive bacteremia; IDs consulted; concern for possible pneumonia/streptococcal versus MRSA - IDs recommending to repeat blood cultures to document stability- sputum Gram stain and cultures ordered - ID recommending to continue with Rocephin 2 g IV daily and discontinue Rocephin 3. Atrial fibrillation was subtherapeutic INR (INR 1.5); rate controlled on amiodarone 200 mg daily along with Lopressor 50 mg daily; anticoagulation with Coumadin which remains subtherapeutic; Coumadin is on hold per neurology recommendations to MRI is negative 4. Diabetes mellitus/ uncontrolled; continue with home dose of NPH 60 units subcu daily along with Accu-Cheks every before meals and at bedtime with insulin sliding scale 5. Hypertension; Toprol-XL 50 mg daily 6. Hyperlipidemia; Lipitor 80 mg by mouth daily at bedtime 7. History of DVT/Pulmonary embolism s/p geen filter; remains on anticoagulation with Coumadin; INR subtherapeutic; Coumadin on hold per neurology recommendations DVT prophylaxis; SCDs/anticoagulation with Coumadin is recommended to be put on hold per neurology to MRI is obtained CODE STATUS; full code
[2020-06-20 16:32] LABS: Glucose,Whole Blood 161 mg/dL (75-99)
[2020-06-20] MEDS ORDERED: WARFARIN 2 MG TAB PO ONE (18:00)
[2020-06-20 21:13] LABS: Glucose,Whole Blood 99 mg/dL (75-99)
[2020-06-20] MEDS: ATORVASTATIN 80 MG TAB PO SCH (21:19)
--- NOTE | 2020-06-20 22:57 | P.PN ---
Subjective Progress Note Date: 06/20/20 06/20/2020 Gram-positive bacteremia; IDs consulted; concern for possible pneumonia /streptococcal versus MRSA - IDs recommending to repeat blood cultures to document stability- sputum Gram stain and cultures ordered - ID recommending to continue with Rocephin 2 g IV daily and discontinue Rocephin Objective - Vital Signs Vital signs: Vital Signs Temp 98.0 F 06/20/20 12:00 Pulse 68 06/20/20 14:00 Resp 16 06/20/20 14:00 BP 113/65 06/20/20 12:00 Pulse Ox 98 06/20/20 12:00 Intake & Output 06/19/20 06/20/20 06/20/20 18:59 06:59 18:59 Intake Total 250 360 Output Total 600 700 Balance 250 -600 -340 Weight 124.738 kg Intake: Intake, IV Titration 50 Amount cefTRIAXone 1 gm In 50 Sodium Chloride 0.9% 50 ml @ 100 mls/hr IVPB Q12H [facility] Rx#:[id number] Oral 200 360 Output: Urine 600 700 Other: Voiding Method Urinal Urinal # Voids 11 - Exam GENERAL: The patient is alert and oriented x3, not in any acute distress. Well developed, well nourished. HEENT: Pupils are round and equally reacting to light. EOMI. No scleral icterus. No conjunctival pallor. Normocephalic, atraumatic. No pharyngeal erythema. No thyromegaly. CARDIOVASCULAR: S1 and S2 present. No murmurs, rubs, or gallops. PULMONARY: Chest is clear to auscultation, no wheezing or crackles. ABDOMEN: Soft, nontender, nondistended, normoactive bowel sounds. No palpable organomegaly. MUSCULOSKELETAL: No joint swelling or deformity. EXTREMITIES: No cyanosis, clubbing, or pedal edema. NEUROLOGICAL: Gross neurological examination did not reveal any focal deficits. SKIN: No rashes. - Labs CBC & Chem 7: 06/19/20 05:40 06/19/20 05:40 Labs: Abnormal Lab Results - Last 24 Hours (Table) 06/19/20 06/19/20 06/20/20 Range/Units 16:52 20:37 06:01 PT (9.0-12.0) sec INR (<1.2) POC Glucose (mg/dL) 199 H 113 H 159 H (75-99) mg/dL 06/20/20 06/20/20 Range/Units 10:06 11:52 PT 13.2 H (9.0-12.0) sec INR 1.3 H (<1.2) POC Glucose (mg/dL) 246 H (75-99) mg/dL Microbiology - Last 24 Hours (Table) 06/19/20 12:31 Blood Culture - Preliminary Blood No Growth after 24 hours 06/19/20 12:31 Blood Culture - Preliminary Blood No Growth after 24 hours 06/19/20 01:43 Blood Culture Gram Stain - Preliminary Blood Blood Culture - Preliminary Streptococcus species 06/19/20 01:43 Blood Culture - Final Blood Assessment and Plan Assessment: 1. Altered mental status: - Possibly due to mild multifactorial one of the reasons underlying infection especially with the low-grade fever and leukocytosis/ blood culture positive for gram positive cocci and component of toxic metabolic encephalopathy with uncontrolled glucose--mentation improved. 2. Acute kidney insufficiency---resolved 3. Gram-positive bacteremia; IDs consulted; concern for possible pneumonia/streptococcal versus MRSA - IDs recommending to repeat blood cultures to document stability- sputum Gram stain and cultures ordered - ID recommending to continue with Rocephin 2 g IV daily and discontinue Rocephin 3. Atrial fibrillation was subtherapeutic INR (INR 1.5); rate controlled on amiodarone 200 mg daily along with Lopressor 50 mg daily; anticoagulation with Coumadin which remains subtherapeutic; Coumadin is on hold per neurology recommendations to MRI is negative 4. Diabetes mellitus/ uncontrolled; continue with home dose of NPH 60 units subcu daily along with Accu-Cheks every before meals and at bedtime with insulin sliding scale 5. Hypertension; Toprol-XL 50 mg daily 6. Hyperlipidemia; Lipitor 80 mg by mouth daily at bedtime 7. History of DVT/Pulmonary embolism s/p geen filter; remains on anticoagulation with Coumadin; INR subtherapeutic; Coumadin on hold per neurology recommendations DVT prophylaxis; SCDs/anticoagulation with Coumadin is recommended to be put on hold per neurology to MRI is obtained CODE STATUS; full code
--- NOTE | 2020-06-20 23:03 | PN ---
PROGRESS NOTE DATE OF SERVICE: 06/20/2020 REASON FOR FOLLOWUP: Pneumonia with bacteremia. INTERVAL HISTORY: Patient is currently afebrile and the patient is breathing more comfortably. The patient denies having any chest pain or shortness of breath. He does have a cough, occasional sputum. No nausea, no vomiting. No abdominal pain or diarrhea. PHYSICAL EXAMINATION: Blood pressure 112/60, pulse of 52, temp 97.9. He is 95% on ( ). General description is a middle-aged male up in the bed in no distress. Respiratory system: Unlabored breathing with decreased breath sounds, no wheeze. Heart S1, S2. Regular rate and rhythm. Abdomen soft, no tenderness. LABS: INR is 1.3, white count 10.5. Blood culture with alpha Streptococcus. Repeat blood culture so far negative. Sputum is pending. DIAGNOSTIC IMPRESSION AND PLAN: Patient admitted to the hospital with mental status changes in this patient who did have a component of pneumonia, now with evidence of alpha ( ) Streptococcus bacteremia, concern for possible strep pneumo. The patient is on Rocephin to continue while waiting for the culture to finalize and continue supportive care. MMODL / IJN: [id number] /
[2020-06-21 06:22] LABS: Glucose,Whole Blood 79 mg/dL (75-99)
[2020-06-21] MEDS: INSULIN ASPART (NovoLOG) 100 UNIT/ML VIAL SQ SCH ×4 (06:25→21:42)
[2020-06-21] MEDS: METOPROLOL SUCCINATE (ER) 50 MG TAB.ER.24H PO SCH (07:56)
[2020-06-21] MEDS: PREGABALIN 100 MG CAP PO SCH ×2 (07:56→21:13)
[2020-06-21] MEDS: AMIODARONE 200 MG TAB PO SCH (07:56)
[2020-06-21] MEDS: DOXYCYCLINE 100 MG CAP PO SCH ×2 (07:56→21:42)
[2020-06-21] MEDS: ASPIRIN 81 MG PO SCH (07:57)
[2020-06-21] MEDS: LORATADINE 10 MG TAB PO SCH (07:57)
[2020-06-21] MEDS: DOCUSATE 100 MG CAP PO SCH (07:57)
[2020-06-21] MEDS: PANTOPRAZOLE 40 MG TABLET PO SCH (07:57)
[2020-06-21] MEDS: TOPIRAMATE 25 MG TAB PO SCH (07:57)
[2020-06-21] MEDS: oxyCODONE-APAP 10-325MG 1 EACH TAB PO PRN ×2 (08:04→23:01)
[2020-06-21] MEDS: INSULIN NPH 300 UNIT/3 ML VIAL SQ SCH (08:04)
[2020-06-21 09:03] LABS: Basophils % (A) 0 %; Eosinophils # (A) 0.2 k/uL (0-0.7); Eosinophils % (A) 3 %; HCT 38.4 % (39.0-53.0); HGB 12.9 gm/dL (13.0-17.5); Lymphocytes # (A) 1.3 k/uL (1.0-4.8); Lymphocytes % (A) 21 %; MCH 31.7 pg (25.0-35.0); MCHC 33.6 g/dL (31.0-37.0); MCV 94.3 fL (80.0-100.0); Mean Platelet Volume 8.3; Monocytes # (A) 0.4 k/uL (0-1.0); Monocytes % (A) 7 %; Neutrophils # (A) 4.1 k/uL (1.3-7.7); Neutrophils % (A) 67 %; Platelet Count 178 k/uL (150-450); RBC 4.07 m/uL (4.30-5.90); RDW 13.8 % (11.5-15.5); WBC 6.2 k/uL (3.8-10.6)
[2020-06-21 09:12] LABS: Calcium 8.6 mg/dL (8.4-10.2); Potassium 4.1 mmol/L (3.5-5.1)
[2020-06-21 09:20] LABS: INR 1.3 (<1.2); Prothrombin Time 13.2 sec (9.0-12.0)
[2020-06-21 11:54] LABS: Glucose,Whole Blood 130 mg/dL (75-99)
[2020-06-21 16:38] LABS: Glucose,Whole Blood 169 mg/dL (75-99)
--- NOTE | 2020-06-21 17:26 | P.PN ---
Subjective Progress Note Date: 06/21/20 The patient is seen in neurologic follow-up on June 21, 2020, via teleneurology. The patient reports feeling "100% better". He does not recall coming into the hospital. He reports that he felt well yesterday. He denies headache. He is anxious for discharge. Objective - Vital Signs Vital signs: Vital Signs Temp 97.6 F 06/21/20 15:24 Pulse 51 L 06/21/20 15:24 Resp 16 06/21/20 15:24 BP 115/68 06/21/20 15:24 Pulse Ox 94 L 06/21/20 15:24 Intake & Output 06/20/20 06/21/20 06/21/20 18:59 06:59 18:59 Intake Total 480 330 630 Output Total 700 700 Balance -220 330 -70 Weight 132.2 kg Intake: IV 330 90 0.9 330 Invasive Line 2 20 Invasive Line 3 20 cefTRIAXone 2 gm In 50 Sodium Chloride 0.9% 50 ml @ 100 mls/hr IVPB Q24H [facility] Rx#:[id number] Oral 480 540 Output: Urine 700 700 Other: Voiding Method Urinal Urinal # Voids 2 - Exam Gen.: The patient is reclining in the bed. He is well-nourished, well-developed and in no acute distress. HEENT: Head is atraumatic, normocephalic. Fundus not visualized. There is no scleral icterus. Mucous membranes are moist. Neurological examination Mental status: The patient is awake, alert and oriented 3. She is clear. Th ere is no dysarthria or aphasia. EEG reports diffuse slowing consistent with encephalopathy. There is no evidence of epileptiform or seizure activity. - Labs CBC & Chem 7: 06/21/20 08:14 06/21/20 08:14 Labs: Abnormal Lab Results - Last 24 Hours (Table) 06/20/20 06/21/20 06/21/20 Range/Units 10:06 08:14 08:14 RBC 4.07 L (4.30-5.90) m/uL Hgb 12.9 L (13.0-17.5) gm/dL Hct 38.4 L (39.0-53.0) % PT 13.2 H (9.0-12.0) sec INR 1.3 H (<1.2) Chloride (98-107) mmol/L Glucose (74-99) mg/dL POC Glucose (mg/dL) (75-99) mg/dL Procalcitonin 0.14 H (0.02-0.09) ng/mL 06/21/20 06/21/20 06/21/20 Range/Units 08:14 11:43 16:36 RBC (4.30-5.90) m/uL Hgb (13.0-17.5) gm/dL Hct (39.0-53.0) % PT (9.0-12.0) sec INR (<1.2) Chloride 109 H (98-107) mmol/L Glucose 131 H (74-99) mg/dL POC Glucose (mg/dL) 130 H 169 H (75-99) mg/dL Procalcitonin (0.02-0.09) ng/mL Microbiology - Last 24 Hours (Table) 06/19/20 12:31 Blood Culture - Preliminary Blood No Growth after 48 hours 06/19/20 12:31 Blood Culture - Preliminary Blood No Growth after 48 hours 06/19/20 09:50 Gram Stain - Preliminary Sputum Sputum Culture - Preliminary 06/19/20 01:43 Blood Culture Gram Stain - Preliminary Blood Blood Culture - Preliminary Alpha Hemolytic Streptococcus Assessment and Plan Assessment: 1. Toxic metabolic encephalopathy secondary to infection-resolved Plan: 1. The patient is neurologically stable for discharge, if okay with primary team. Time with Patient: Less than 30 (spent 20 minutes with patient via teleneurology)
[2020-06-21] MEDS ORDERED: WARFARIN 5 MG TAB PO ONE (18:00)
--- NOTE | 2020-06-21 20:57 | P.PN ---
Subjective Progress Note Date: 06/21/20 06/20/2020 Gram-positive bacteremia; IDs consulted; concern for possible pneumonia /streptococcal versus MRSA - IDs recommending to repeat blood cultures to document stability- sputum Gram stain and cultures ordered - ID recommending to continue with Rocephin 2 g IV daily and discontinue Rocephin 06/21/2020 The patient is seen and evaluated at bedside; reports marked improvement in symptoms. He does not recall coming into the hospital; denies headache. patient re-evaluated by tele-neuro and has been cleared for dc; ID following patient for possible Strep PNA with streptococcus bacteremia; remains on IV Rocephin; await culture results for final tailoring of antibiotic therapy Objective - Vital Signs Vital signs: Vital Signs Temp 97.6 F 06/21/20 15:24 Pulse 51 L 06/21/20 15:24 Resp 16 06/21/20 15:24 BP 115/68 06/21/20 15:24 Pulse Ox 94 L 06/21/20 15:24 Intake & Output 06/20/20 06/21/20 06/21/20 18:59 06:59 18:59 Intake Total 480 330 630 Output Total 700 700 Balance -220 330 -70 Weight 132.2 kg Intake: IV 330 90 0.9 330 Invasive Line 2 20 Invasive Line 3 20 cefTRIAXone 2 gm In 50 Sodium Chloride 0.9% 50 ml @ 100 mls/hr IVPB Q24H [facility] Rx#:[id number] Oral 480 540 Output: Urine 700 700 Other: Voiding Method Urinal Urinal # Voids 2 - Exam GENERAL: The patient is alert and oriented x3, not in any acute distress. Well developed, well nourished. HEENT: Pupils are round and equally reacting to light. EOMI. No scleral icterus. No conjunctival pallor. Normocephalic, atraumatic. No pharyngeal erythema. No thyromegaly. CARDIOVASCULAR: S1 and S2 present. No murmurs, rubs, or gallops. PULMONARY: Chest is clear to auscultation, no wheezing or crackles. ABDOMEN: Soft, nontender, nondistended, normoactive bowel sounds. No palpable organomegaly. MUSCULOSKELETAL: No joint swelling or deformity. EXTREMITIES: No cyanosis, clubbing, or pedal edema. NEUROLOGICAL: Gross neurological examination did not reveal any focal deficits. SKIN: No rashes. - Labs CBC & Chem 7: 06/21/20 08:14 06/21/20 08:14 Labs: Abnormal Lab Results - Last 24 Hours (Table) 06/20/20 06/20/20 06/21/20 Range/Units 10:06 16:31 08:14 RBC (4.30-5.90) m/uL Hgb (13.0-17.5) gm/dL Hct (39.0-53.0) % PT 13.2 H (9.0-12.0) sec INR 1.3 H (<1.2) Chloride (98-107) mmol/L Glucose (74-99) mg/dL POC Glucose (mg/dL) 161 H (75-99) mg/dL Procalcitonin 0.14 H (0.02-0.09) ng/mL 06/21/20 06/21/20 06/21/20 Range/Units 08:14 08:14 11:43 RBC 4.07 L (4.30-5.90) m/uL Hgb 12.9 L (13.0-17.5) gm/dL Hct 38.4 L (39.0-53.0) % PT (9.0-12.0) sec INR (<1.2) Chloride 109 H (98-107) mmol/L Glucose 131 H (74-99) mg/dL POC Glucose (mg/dL) 130 H (75-99) mg/dL Procalcitonin (0.02-0.09) ng/mL Microbiology - Last 24 Hours (Table) 06/19/20 12:31 Blood Culture - Preliminary Blood No Growth after 48 hours 06/19/20 12:31 Blood Culture - Preliminary Blood No Growth after 48 hours 06/19/20 09:50 Gram Stain - Preliminary Sputum Sputum Culture - Preliminary 06/19/20 01:43 Blood Culture Gram Stain - Preliminary Blood Blood Culture - Preliminary Alpha Hemolytic Streptococcus Assessment and Plan Assessment: 1. Altered mental status: - Possibly due to mild multifactorial one of the reasons underlying infection especially with the low-grade fever and leukocytosis/ blood culture positive for gram positive cocci and component of toxic metabolic encephalopathy with uncontrolled glucose--mentation improved. 2. Acute kidney insufficiency---resolved 3. Gram-positive bacteremia; IDs consulted; concern for possible pneumonia/streptococcal versus MRSA - IDs recommending to repeat blood cultures to document stability- sputum Gram stain and cultures ordered - ID recommending to continue with Rocephin 2 g IV daily and discontinue Rocephin 3. Atrial fibrillation was subtherapeutic INR (INR 1.5); rate controlled on amiodarone 200 mg daily along with Lopressor 50 mg daily; anticoagulation with Coumadin which remains subtherapeutic; Coumadin is on hold per neurology recommendations to MRI is negative 4. Diabetes mellitus/ uncontrolled; continue with home dose of NPH 60 units subcu daily along with Accu-Cheks every before meals and at bedtime with insulin sliding scale 5. Hypertension; Toprol-XL 50 mg daily 6. Hyperlipidemia; Lipitor 80 mg by mouth daily at bedtime 7. History of DVT/Pulmonary embolism s/p geen filter; remains on anticoagulation with Coumadin; INR subtherapeutic; Coumadin on hold per neurology recommendations DVT prophylaxis; SCDs/anticoagulation with Coumadin is recommended to be put on hold per neurology to MRI is obtained CODE STATUS; full code
[2020-06-21] MEDS: ATORVASTATIN 80 MG TAB PO SCH (21:13)
[2020-06-21 21:39] LABS: Glucose,Whole Blood 205 mg/dL (75-99)
--- NOTE | 2020-06-22 02:40 | PN ---
PROGRESS NOTE DATE OF SERVICE: 06/21/2020 REASON FOR FOLLOWUP: Pneumonia with strep bacteremia. INTERVAL HISTORY: The patient is currently afebrile. The patient is breathing comfortably. The patient did mention overall improvement in his cough and not bringing up any sputum. No nausea, no vomiting. No abdominal pain, no diarrhea. PHYSICAL EXAMINATION: Blood pressure 149/82 with a pulse of 54, temperature 98.4. He is 97% on room air. General description is a middle-aged male up in the bed in no distress. RESPIRATORY SYSTEM: Unlabored breathing, decreased breath sounds at the bases. No wheeze. HEART: S1, S2. Regular rate and rhythm. ABDOMEN: Soft, no tenderness. LABS: Hemoglobin is 12.9, white count 6.2, BUN of 13, creatinine 1.13. DIAGNOSTIC IMPRESSION AND PLAN: Patient admitted to the hospital with fever and mental status changes. The patient did have a cough with yellowish sputum likely secondary to community-acquired pneumonia. alpha hemolytic Streptococcus, possible strep pneumo. Patient responded to the Rocephin. Follow-up blood culture has been negative. Will wait for the ID sensitivity to determine discharge antibiotics. Continue supportive care. MMODL / IJN: [id number] /
[2020-06-22 06:42] LABS: Glucose,Whole Blood 110 mg/dL (75-99)
[2020-06-22] MEDS: INSULIN ASPART (NovoLOG) 100 UNIT/ML VIAL SQ SCH ×4 (06:50→23:36)
[2020-06-22 07:55] LABS: Basophils % (A) 1 %; Eosinophils # (A) 0.2 k/uL (0-0.7); Eosinophils % (A) 3 %; HCT 37.1 % (39.0-53.0); HGB 12.7 gm/dL (13.0-17.5); Lymphocytes # (A) 1.5 k/uL (1.0-4.8); Lymphocytes % (A) 25 %; MCH 32.1 pg (25.0-35.0); MCHC 34.2 g/dL (31.0-37.0); MCV 93.9 fL (80.0-100.0); Mean Platelet Volume 8.3; Monocytes # (A) 0.5 k/uL (0-1.0); Monocytes % (A) 8 %; Neutrophils # (A) 3.8 k/uL (1.3-7.7); Neutrophils % (A) 62 %; Platelet Count 181 k/uL (150-450); RBC 3.95 m/uL (4.30-5.90); RDW 13.6 % (11.5-15.5); WBC 6.2 k/uL (3.8-10.6)
[2020-06-22 08:04] LABS: Calcium 8.5 mg/dL (8.4-10.2)
[2020-06-22 08:13] LABS: INR 1.5 (<1.2); Prothrombin Time 14.5 sec (9.0-12.0)
[2020-06-22] MEDS: PREGABALIN 100 MG CAP PO SCH ×2 (09:13→21:23)
[2020-06-22] MEDS: ASPIRIN 81 MG PO SCH (09:13)
[2020-06-22] MEDS: AMIODARONE 200 MG TAB PO SCH (09:13)
[2020-06-22] MEDS: DOXYCYCLINE 100 MG CAP PO SCH ×2 (09:13→23:36)
[2020-06-22] MEDS: PANTOPRAZOLE 40 MG TABLET PO SCH (09:14)
[2020-06-22] MEDS: LORATADINE 10 MG TAB PO SCH (09:14)
[2020-06-22] MEDS: DOCUSATE 100 MG CAP PO SCH (09:14)
[2020-06-22] MEDS: TOPIRAMATE 25 MG TAB PO SCH (09:14)
[2020-06-22] MEDS: oxyCODONE-APAP 10-325MG 1 EACH TAB PO PRN ×2 (09:14→21:24)
[2020-06-22] MEDS: METOPROLOL SUCCINATE (ER) 50 MG TAB.ER.24H PO SCH (09:14)
[2020-06-22] MEDS: INSULIN NPH 300 UNIT/3 ML VIAL SQ SCH (09:22)
[2020-06-22 11:44] LABS: Glucose,Whole Blood 217 mg/dL (75-99)
[2020-06-22 16:04] LABS: Glucose,Whole Blood 135 mg/dL (75-99)
--- NOTE | 2020-06-22 16:30 | XR ---
EXAMINATION TYPE: XR chest 2V DATE OF EXAM: 06/22/2020 COMPARISON: Chest x-ray 4 days ago. HISTORY: Dyspnea.. TECHNIQUE: Frontal and lateral views of the chest are obtained. FINDINGS: Patient remains rotated to the right. There is some chronic parenchymal changes bilaterall y without suspicious new focal air space opacity, pleural effusion, or pneumothorax seen. Chronic po sterior left basilar opacity on lateral view unchanged from August 28, 2019 x-ray. The cardiac silh ouette size is stable and mildly enlarged. The osseous structures are intact. IMPRESSION: Chronic changes without new acute pulmonary process clearly seen.
[2020-06-22] MEDS ORDERED: WARFARIN 5 MG TAB PO ONE (18:00)
[2020-06-22 20:21] LABS: Glucose,Whole Blood 150 mg/dL (75-99)
[2020-06-22] MEDS: ATORVASTATIN 80 MG TAB PO SCH (21:23)
--- NOTE | 2020-06-22 23:53 | P.PN ---
Subjective Progress Note Date: 06/22/20 06/20/2020 Gram-positive bacteremia; IDs consulted; concern for possible pneumonia/streptococcal versus MRSA - IDs recommending to repeat blood cultures to document stability- sputum Gram stain and cultures ordered - ID recommending to continue with Rocephin 2 g IV daily and discontinue Rocephin 06/21/2020 The patient is seen and evaluated at bedside; reports marked improvement in symptoms. He does not recall coming into the hospital; denies headache. patient re-evaluated by tele-neuro and has been cleared for dc; ID following patient for possible Strep PNA with streptococcus bacteremia; remains on IV Rocephin; await culture results for final tailoring of antibiotic therapy 06/22/2020 Patient was admitted to hospital for altered mental status and possible pneumonia and found to have alphahemolytic Streptococcus bacteremia. Patient is currently sitting on chair comfortably. No complaints of chest pain or shortness breath. Mentation is at baseline. Blood cultures grew alphahemolytic Streptococcus. Currently on antibiotics in the form of ceftriaxone and ID is following. Follow-up with repeat blood cultures and final antibiotic recommendations. ID is on board. Otherwise patient is being continued aspirin statins and also on warfarin dosing due to history of multiple DVT/PE. Patient has been afebrile. No nausea vomiting or abdominal pain. Heart rate is in 50s. Current medications reviewed. Objective - Vital Signs Vital signs: Vital Signs Temp 98.3 F 06/22/20 15:28 Pulse 56 L 06/22/20 15:28 Resp 16 06/22/20 15:28 BP 114/65 06/22/20 15:28 Pulse Ox 98 06/22/20 15:28 Intake & Output 06/22/20 06/22/20 06/23/20 06:59 18:59 06:59 Intake Total 300 Output Total 800 200 Balance -800 100 Weight 131.4 kg Intake: Oral 300 Output: Urine 800 200 Other: Voiding Method Urinal # Voids 300 - Exam - Exam GENERAL: The patient is alert and oriented x3, not in any acute distress. Well developed, well nourished. HEENT: Pupils are round and equally reacting to light. EOMI. No scleral icterus. No conjunctival pallor. Normocephalic, atraumatic. No pharyngeal erythema. No thyromegaly. CARDIOVASCULAR: S1 and S2 present. No murmurs, rubs, or gallops. PULMONARY: Chest is clear to auscultation, no wheezing or crackles. ABDOMEN: Soft, nontender, nondistended, normoactive bowel sounds. No palpable o rganomegaly. MUSCULOSKELETAL: No joint swelling or deformity. EXTREMITIES: No cyanosis, clubbing, or pedal edema. NEUROLOGICAL: Gross neurological examination did not reveal any focal deficits. SKIN: No rashes. - Labs CBC & Chem 7: 06/22/20 06:37 06/22/20 06:37 Labs: Abnormal Lab Results - Last 24 Hours (Table) 06/19/20 06/21/20 06/22/20 Range/Units 05:40 21:33 06:14 RBC (4.30-5.90) m/uL Hgb (13.0-17.5) gm/dL Hct (39.0-53.0) % PT (9.0-12.0) sec INR (<1.2) Chloride (98-107) mmol/L Glucose (74-99) mg/dL POC Glucose (mg/dL) 205 H 110 H (75-99) mg/dL RBC Folate 1,194 H (280 - 791) ng/mL 06/22/20 06/22/20 06/22/20 Range/Units 06:37 06:37 06:37 RBC 3.95 L (4.30-5.90) m/uL Hgb 12.7 L (13.0-17.5) gm/dL Hct 37.1 L (39.0-53.0) % PT 14.5 H (9.0-12.0) sec INR 1.5 H (<1.2) Chloride 108 H (98-107) mmol/L Glucose 109 H (74-99) mg/dL POC Glucose (mg/dL) (75-99) mg/dL RBC Folate (280 - 791) ng/mL 06/22/20 06/22/20 06/22/20 Range/Units 11:42 16:02 20:20 RBC (4.30-5.90) m/uL Hgb (13.0-17.5) gm/dL Hct (39.0-53.0) % PT (9.0-12.0) sec INR (<1.2) Chloride (98-107) mmol/L Glucose (74-99) mg/dL POC Glucose (mg/dL) 217 H 135 H 150 H (75-99) mg/dL RBC Folate (280 - 791) ng/mL Microbiology - Last 24 Hours (Table) 06/19/20 12:31 Blood Culture - Preliminary Blood No Growth after 72 hours 06/19/20 12:31 Blood Culture - Preliminary Blood No Growth after 72 hours 06/19/20 09:50 Gram Stain - Final Sputum Sputum Culture - Final 06/19/20 01:43 Blood Culture Gram Stain - Final Blood Blood Culture - Final Alpha Hemolytic Streptococcus Assessment and Plan Assessment: 1. Altered mental status: - Possibly due to mild multifactorial one of the reasons underlying infection especially with the low-grade fever and leukocytosis/ blood culture positive for gram positive cocci and component of toxic metabolic encephalopathy with uncontrolled glucose. -Neurologic work-up including CT head, CT angiogram, EEG and 2D echocardiogram was done. mentation improved. 2. Acute kidney insufficiency---resolved 3. Gram-positive bacteremia; concern for possible pneumonia/streptococcal versus MRSA - IDs recommending to repeat blood cultures to document stability- sputum Gram stain and cultures ordered - continue with Rocephin 2 g IV daily and doxy 3. Chronic Atrial fibrillation was subtherapeutic INR (INR 1.5); rate controlled on amiodarone 200 mg daily along with Lopressor 50 mg daily; anticoagulation with Coumadin which remains subtherapeutic; 4. Diabetes mellitus/ uncontrolled; continue with home dose of NPH 60 units subcu daily along with Accu-Cheks every before meals and at bedtime with insulin sliding scale 5. Hypertension; Toprol-XL 50 mg daily 6. Hyperlipidemia; Lipitor 80 mg by mouth daily at bedtime 7. History of DVT/Pulmonary embolism s/p geen filter; remains on anticoagulation with Coumadin; INR subtherapeutic; DVT prophylaxis; SCDs/anticoagulation with Coumadin CODE STATUS; full code Time with Patient: Greater than 30
--- NOTE | 2020-06-23 00:17 | PN ---
PROGRESS NOTE DATE OF SERVICE: 06/22/2020 REASON FOR FOLLOWUP: Fever, concern for pneumonia and streptococcal bacteremia. INTERVAL HISTORY: The patient is currently afebrile. Patient has been feeling better. Breathing comfortably. The patient coughing decreased intensity. No sputum. No nausea, no vomiting. No abdominal pain or diarrhea. PHYSICAL EXAMINATION: Blood pressure 156/87 with a pulse of 50, temperature 96.9. He is 95% on room air. General description is a middle-aged male up in the bed in no distress. RESPIRATORY SYSTEM: Unlabored breathing, decreased breath sounds in the bases, no wheeze. HEART: S1, S2. Regular rate and rhythm. ABDOMEN: Soft, no tenderness. LABS: Hemoglobin is 12.7, white count 6.2. INR is 1.5. Blood culture repeat has been negative. Sputum is usual respiratory [place]. DIAGNOSTIC IMPRESSION AND PLAN: Patient admitted to hospital with fever, cough, yellow sputum and concern for pneumonia, streptococcal bacteremia with concern for possible strep pneumo in this patient who did have overall improvement with Rocephin. Finish therapy with oral Ceftin 500 mg twice a day for another 10 days and close outpatient followup. MMODL / IJN: [id number] /
[2020-06-23 04:17] VITALS: RESP 18
[2020-06-23 04:18] VITALS: TEMP 97.9
[2020-06-23 06:14] LABS: Glucose,Whole Blood 88 mg/dL (75-99)
[2020-06-23] MEDS: INSULIN ASPART (NovoLOG) 100 UNIT/ML VIAL SQ SCH ×2 (06:40→12:03)
[2020-06-23] MEDS: oxyCODONE-APAP 10-325MG 1 EACH TAB PO PRN (09:13)
[2020-06-23] MEDS: ASPIRIN 81 MG PO SCH (09:14)
[2020-06-23] MEDS: DOXYCYCLINE 100 MG CAP PO SCH (09:15)
[2020-06-23] MEDS: DOCUSATE 100 MG CAP PO SCH (09:15)
[2020-06-23] MEDS: LORATADINE 10 MG TAB PO SCH (09:16)
[2020-06-23] MEDS: PREGABALIN 100 MG CAP PO SCH (09:16)
[2020-06-23] MEDS: METOPROLOL SUCCINATE (ER) 50 MG TAB.ER.24H PO SCH (09:16)
[2020-06-23] MEDS: INSULIN NPH 300 UNIT/3 ML VIAL SQ SCH (09:16)
[2020-06-23] MEDS: PANTOPRAZOLE 40 MG TABLET PO SCH (09:16)
[2020-06-23] MEDS: TOPIRAMATE 25 MG TAB PO SCH (09:17)
[2020-06-23] MEDS: AMIODARONE 200 MG TAB PO SCH (09:24)
[2020-06-23 11:42] LABS: Glucose,Whole Blood 145 mg/dL (75-99)
[2020-06-23 11:45] VITALS: BP 133/81; PULSE 54
[2020-06-23 12:01] LABS: Calcium 8.9 mg/dL (8.4-10.2); Potassium 4.5 mmol/L (3.5-5.1)
[2020-06-23 12:04] LABS: Basophils # (A) 0.1 k/uL (0-0.2); Basophils % (A) 1 %; Eosinophils # (A) 0.2 k/uL (0-0.7); Eosinophils % (A) 2 %; HCT 40.9 % (39.0-53.0); HGB 13.6 gm/dL (13.0-17.5); Lymphocytes # (A) 1.4 k/uL (1.0-4.8); Lymphocytes % (A) 18 %; MCH 31.6 pg (25.0-35.0); MCHC 33.1 g/dL (31.0-37.0); MCV 95.4 fL (80.0-100.0); Monocytes # (A) 0.5 k/uL (0-1.0); Monocytes % (A) 7 %; Neutrophils # (A) 5.3 k/uL (1.3-7.7); Neutrophils % (A) 69 %; Platelet Count 195 k/uL (150-450); RBC 4.29 m/uL (4.30-5.90); RDW 13.8 % (11.5-15.5); WBC 7.7 k/uL (3.8-10.6)
[2020-06-23 12:08] LABS: INR 1.7 (<1.2); Prothrombin Time 16.7 sec (9.0-12.0)
--- NOTE | 2020-06-23 15:23 | PN ---
PROGRESS NOTE DATE OF SERVICE: 06/23/2020 REASON FOR FOLLOW UP: Asthma and streptococcal bacteremia, possibly pneumonia. INTERVAL HISTORY: The patient is currently afebrile. The patient sating on room air. The patient denies having any chest pain. No shortness of breath. Minimal cough. No more purulent sputum. No abdominal pain. PHYSICAL EXAMINATION: Blood pressure 162/83 with a pulse of 54, temperature 97.9. He is 96% on room air. General description is a middle-aged male up in the bed in no distress. Respiratory system: Unlabored breathing with decreased breath sounds in the base, with no wheeze. Heart S1, S2. Regular rate and rhythm. Abdomen soft, no tenderness. The left AKA stump is currently with no cellulitis. LABS: Hemoglobin 13.4, white count 7.7, INR is 1.7. Creatinine is 1.06. DIAGNOSTIC IMPRESSION AND PLAN: Patient admitted to the hospital with fever and mental status changes in this patient who did have a streptococcal bacteremia, possibly pneumonia as he definitely has pulmonary symptoms. The patient improved on Rocephin. Will finish therapy with oral Ceftin 5 mg twice a day for 10 days and close outpatient followup. All his questions and concerns were answered in layman's terms. MMODL / IJN: [id number] /
[2020-06-23] MEDS ORDERED: WARFARIN 5 MG TAB PO ONE (18:00)
--- NOTE | 2020-06-26 00:10 | CDI ---
Documentation Clarification Form Date: 06/26/2020 From: Berry Ordaz Phone: If you have a question about this query, please contact Joanie Bhatt, Livestock Farmer at [phone] between 8am and 5pm. Admit Date: 06/20/2020 07:51:00 AM Patient Name: Checo Quijano Visit Number: [id number] Discharge Date: 06/23/2020 03:00:00 PM ATTENTION: The Clinical Documentation Specialists (CDI) and [facility] Coding Staff appreciate your assistance in clarifying documentation. Please respond to the clarification below the line at the bottom and electronically sign. The CDI & [facility] Coding staff will review the response and follow-up if needed. Please note: Queries are made part of the Legal Health Record. If you have any questions, please contact the author of this message via ITS. Dr. Shadia Alvarez MD., Patient admitted to hospital with fever, cough, yellow sputum and concern for pneumonia, streptococcal bacteremia with concern for possible strep pneumo in this patient who did have overall improvement with Rocephin. History/Risk Factors: Atrial fibrillation, pneumonia, COPD Clinical Indicators: Pneumonia due to streptococcal WBC : 12 Blood cultures: Streptococcus species Vitals signs on admission: Temperature 99.7 F H Pulse Rate 75 74 71 Respiratory 24 18 18 Rate Blood Pressure 140/119 153/86 121/76 O2 Sat by Pulse 97 97 97 Oximetry Treatment: antibiotics, IV fluids Antibiotics: Ceftin 500 mg , Rocephin streptococcal bacteremia, possibly pneumonia. In your professional opinion, please clarify if these findings signify one of the following conditions, Condition Sepsis Severe Sepsis Septic Shock Other, please specify Unable to determine not my documentation MTDD
== END 2020-06-23 15:00 | disposition home or self-care (01) | DRG 193 ==
LOC: EC 17:04 → 3SCARD 06-19 00:55 → OBSVTOIN 06-20 07:51
PROVIDERS: ADMIT Hospitalist; ATTEND Hospitalist
DX: J15.4 Pneumonia due to other streptococci (principal); G92 Toxic encephalopathy; J44.0 Chronic obstructive pulmonary disease with (acute) lower respiratory infection; I48.20 Chronic atrial fibrillation, unspecified; E11.628 Type 2 diabetes mellitus with other skin complications; Z89.512 Acquired absence of left leg below knee; Z79.4 Long term (current) use of insulin; Z20.828 Contact with and (suspected) exposure to other viral communicable diseases; D72.810 Lymphocytopenia; B95.4 Other streptococcus as the cause of diseases classified elsewhere; R79.1 Abnormal coagulation profile; E78.5 Hyperlipidemia, unspecified; I10 Essential (primary) hypertension; K21.9 Gastro-esophageal reflux disease without esophagitis; G43.909 Migraine, unspecified, not intractable, without status migrainosus; M19.90 Unspecified osteoarthritis, unspecified site; Z91.09 Other allergy status, other than to drugs and biological substances; Z79.899 Other long term (current) drug therapy; Z79.1 Long term (current) use of non-steroidal anti-inflammatories (NSAID); Z79.01 Long term (current) use of anticoagulants; Z79.82 Long term (current) use of aspirin; Z87.891 Personal history of nicotine dependence; Z86.14 Personal history of Methicillin resistant Staphylococcus aureus infection; Z86.711 Personal history of pulmonary embolism; Z86.73 Personal history of transient ischemic attack (TIA), and cerebral infarction without residual deficits; Z86.718 Personal history of other venous thrombosis and embolism; Z82.49 Family history of ischemic heart disease and other diseases of the circulatory system; Z83.3 Family history of diabetes mellitus
CPT/HCPCS: 36415; 70450; 70496; 70498; 71045; 71046; 80048; 80053; 80061; 81003; 82140; 82747; 84145; 84484; 85025; 85610; 85730; 86140; 87040; 87070; 87205; 87635; 93005; 93308; 95816; 96361; 96365; 96375; 99285

== ENCOUNTER 2020-10-16 21:47 | Observation (INO) | payer MEDICARE ==
[2020-10-16 21:59] LABS: Glucose,Whole Blood 459 mg/dL (75-99)
[2020-10-16] MEDS ORDERED: INSULIN REGULAR 100 UNIT/ML VIAL (IV) SQ STA (22:03)
--- NOTE | 2020-10-16 22:13 | ED ---
General Adult HPI - General Chief complaint: Recheck/Abnormal Lab/Rx Stated complaint: Unresponsive Time Seen by Provider: 10/16/20 21:52 Source: EMS Mode of arrival: EMS Limitations: altered mental status - History of Present Illness Initial comments: This patient is 65-year-old man with history of diabetes who is brought in for altered mental status. It is reported to me from the EMS staff, through nursing staff here, the patient had reportedly had a republican with his this evening. She states that she then had last seen him at 6 PM and he was acting like his usual self. She then saw him at 10 PM and he was seated at the table, unresponsive. She phoned EMS who found him responding to painful stimuli, but otherwise not able to cooperate with the exam. They did check a blood sugar that was reported to be approximate 600. When I interview the patient, he is not giving history. Onset/Timin -: hour(s) Treatments Prior to Arrival: none - Related Data Home Medications Medication Instructions Recorded Confirmed Atorvastatin [Lipitor] 80 mg PO HS 01/09/14 10/16/20 Topiramate [Topamax] 25 mg PO BID 01/09/14 10/16/20 Nortriptyline [Pamelor] 50 mg PO HS 08/15/19 10/16/20 Omeprazole [PriLOSEC] 20 mg PO BID 08/15/19 10/16/20 Loratadine 10 mg PO HS 10/30/19 10/16/20 Celecoxib [CeleBREX] 200 mg PO DAILY 02/29/20 10/16/20 Metoprolol Succinate (ER) [Toprol 50 mg PO DAILY 02/29/20 10/16/20 XL] Warfarin [Coumadin] 3 mg PO MOTUWEFRSA 02/29/20 10/16/20 Warfarin [Coumadin] 4.5 mg PO SUTH 02/29/20 10/16/20 Pregabalin [Lyrica] 300 mg PO BID 05/18/20 10/16/20 lisinopriL [Zestril] 20 mg PO HS 05/18/20 10/16/20 Docusate [Colace] 100 mg PO HS 05/19/20 10/16/20 metFORMIN HCL [Glucophage] 500 mg PO BID 06/18/20 10/16/20 Albuterol Nebulized [Ventolin 2.5 mg INHALATION RT-QID PRN 10/16/20 10/16/20 Nebulized] Budesonide/Formoterol Fumarate 2 puff INHALATION RT-BID PRN 10/16/20 10/16/20 [Symbicort 160-4.5 Mcg Inhaler] Multivitamins, Thera [Multivitamin 1 tab PO DAILY 10/16/20 10/16/20 (formulary)] Potassium Chloride ER [K-Dur 10] 10 meq PO DAILY 10/16/20 10/16/20 Tiotropium [place] [Spiriva 1 spray INHALATION RT-DAILY PRN 10/16/20 10/16/20 Respimat] oxyCODONE-APAP 10-325MG [Percocet 1 tab PO TID PRN 10/16/20 10/16/20 10-325 mg] Previous Rx's Medication Instructions Recorded Aspirin 81 mg PO DAILY 30 Days #30 chew 08/26/19 Amiodarone [Cordarone] 200 mg PO DAILY tab 03/07/20 Furosemide [Lasix] 40 mg PO DAILY #0 tab 05/20/20 Allergies Allergy/AdvReac Type Severity Reaction Status Date / Time baclofen Allergy Unknown Verified 06/18/20 18:40 Review of Systems ROS Statement: Those systems with pertinent positive or pertinent negative responses have been documented in the HPI. ROS Other: All systems not noted in ROS Statement are negative. Limitations: ROS unobtainable due to patients medical condition Past Medical History Past Medical History: Atrial Fibrillation, Asthma, COPD, CVA/TIA, Diabetes Mellitus, Deep Vein Thrombosis (DVT), GERD/Reflux, Hyperlipidemia, Hypertension, Neurologic Disorder, Osteoarthritis (OA), Pneumonia, Pulmonary Embolus (PE) Additional Past Medical History / Comment(s): MIGRAINES. " ANITICOAGULANT LUPUS". PNEUMOTHRORAX. PERIPHERAL EDEMA. Per cardiology patient has a hx of proximal afib History of Any Multi-Drug Resistant Organisms: MRSA Date of last positivie culture/infection: 02/28/20 MDRO Source:: MRSA FOOT Past Surgical History: Adenoidectomy, Appendectomy, Tonsillectomy Additional Past Surgical History / Comment(s): HAILE FILTER . VEIN STRIPPING. STENTS IN "PELVIC AREA" NOVEMBER 2004., left BKA Past Anesthesia/Blood Transfusion Reactions: No Reported Reaction Past Psychological History: No Psychological Hx Reported Smoking Status: Former smoker Past Alcohol Use History: None Reported Past Drug Use History: None Reported - Past Family History Mother Family Medical History: Coronary Artery Disease (CAD), Myocardial Infarction ([place]), Vascular Disorder Additional Family Medical History / Comment(s): heart disease, peripheral vascular disease. Father Family Medical History: Diabetes Mellitus, Renal Disease General Exam General appearance: obtunded Head exam: Present: atraumatic, normocephalic Eye exam: Present: normal appearance, PERRL. Absent: scleral icterus, conjunctival injection ENT exam: Present: mucous membranes dry Neck exam: Present: normal inspection, full ROM. Absent: tenderness Respiratory exam: Present: normal lung sounds bilaterally. Absent: respiratory distress, wheezes, rales, rhonchi, stridor Cardiovascular Exam: Present: regular rate, normal rhythm, normal heart sounds. Absent: systolic murmur, diastolic murmur, rubs, gallop GI/Abdominal exam: Present: soft, other (Exam limited by obesity). Absent: distended, tenderness, guarding, rebound, rigid Extremities exam: Present: normal capillary refill, pedal edema (There is edema to the right knee), other (Left above-knee amputation). Absent: tenderness, joint swelling Back exam: Present: normal inspection Neurological exam: Present: altered, CN II-XII intact, other (GCS is (E=3, V=1, M=6) The patient does move 3 extremities to command. Otherwise not able to cooperate with neurologic exam). Absent: motor sensory deficit Skin exam: Present: warm, dry, intact, normal color. Absent: rash Course Vital Signs 10/16/20 10/16/20 10/17/20 21:51 23:00 00:00 Pulse Rate 58 L 67 63 Respiratory 20 20 20 Rate Blood Pressure 141/97 158/83 106/55 O2 Sat by Pulse 97 96 95 Oximetry 10/17/20 10/17/20 10/17/20 01:00 02:00 03:00 Pulse Rate 61 65 60 Respiratory 18 18 18 Rate Blood Pressure 102/67 105/70 103/66 O2 Sat by Pulse 98 96 96 Oximetry EKG Findings - EKG Comments: EKG Findings:: Indeterminant, wide QRS rhythm, rate 58 bpm - EKG Results: EKG: interpreted by ERMD - Blocks, [place], Hypertrophy, ST Abn: AV and intraventricular conduction: right bundle branch block (fixed/in termittent, complete/incomplete), left anterior fascicular block - [place], Pacemaker, Normal: Myocardial infarction: septal LA (old age or indeterminate) (Possible old septal infarct.), lateral LA (old age or indeterminate) (Possible old lateral infarct.) Medical Decision Making - Medical Decision Making Patient's 65-year-old man brought for mental status changes. He is found to have hyperglycemia, dehydration injury. Patient started on fluids and insulin mental status is improving. He is able to follow commands. He was communicating nursing staff. As he is not yet at baseline, will admit for further hydration and insulin. Given patient's changes on chest x-ray, covered with antibiotics here and procalcitonin level was pending. - Lab Data Result diagrams: 10/16/20 22:04 10/16/20 22:00 Lab Results 10/16/20 10/16/20 10/16/20 Range/Units 21:49 22:00 22:00 WBC (3.8-10.6) k/uL RBC (4.30-5.90) m/uL Hgb (13.0-17.5) gm/dL Hct (39.0-53.0) % MCV (80.0-100.0) fL MCH (25.0-35.0) pg MCHC (31.0-37.0) g/dL RDW (11.5-15.5) % Plt Count (150-450) k/uL MPV Neutrophils % % Lymphocytes % % Monocytes % % Eosinophils % % Basophils % % Neutrophils # (1.3-7.7) k/uL Lymphocytes # (1.0-4.8) k/uL Monocytes # (0-1.0) k/uL Eosinophils # (0-0.7) k/uL Basophils # (0-0.2) k/uL PT (9.0-12.0) sec INR (<1.2) APTT (22.0-30.0) sec Sodium 131 L (137-145) mmol/L Potassium 5.8 H (3.5-5.1) mmol/L Chloride 100 (98-107) mmol/L Carbon Dioxide 27 (22-30) mmol/L Anion Gap 4 mmol/L BUN 31 H (9-20) mg/dL Creatinine 1.85 H (0.66-1.25) mg/dL Est GFR (CKD-EPI)AfAm 44 (>60 ml/min/1.73 sqM) Est GFR (CKD-EPI)NonAf 38 (>60 ml/min/1.73 sqM) Glucose 468 H (74-99) mg/dL POC Glucose (mg/dL) 459 H (75-99) mg/dL POC Glu Hat Cutter ID [place] Calcium 8.1 L (8.4-10.2) mg/dL Total Bilirubin 0.5 (0.2-1.3) mg/dL AST 24 (17-59) U/L ALT 26 (4-49) U/L Alkaline Phosphatase 142 H (38-126) U/L Troponin I <0.012 (0.000-0.034) ng/mL NT-Pro-B Natriuret Pep pg/mL Total Protein 6.8 (6.3-8.2) g/dL Albumin 3.4 L (3.5-5.0) g/dL Serum Alcohol <10 mg/dL Acetone, Qual Negative (Negative) 10/16/20 10/16/20 10/17/20 Range/Units 22:04 22:04 00:01 WBC 7.1 (3.8-10.6) k/uL RBC 4.32 (4.30-5.90) m/uL Hgb 13.7 (13.0-17.5) gm/dL Hct 40.8 (39.0-53.0) % MCV 94.5 (80.0-100.0) fL MCH 31.6 (25.0-35.0) pg MCHC 33.5 (31.0-37.0) g/dL RDW 15.6 H (11.5-15.5) % Plt Count 214 (150-450) k/uL MPV 8.3 Neutrophils % 72 % Lymphocytes % 17 % Monocytes % 6 % Eosinophils % 2 % Basophils % 0 % Neutrophils # 5.2 (1.3-7.7) k/uL Lymphocytes # 1.2 (1.0-4.8) k/uL Monocytes # 0.4 (0-1.0) k/uL Eosinophils # 0.1 (0-0.7) k/uL Basophils # 0.0 (0-0.2) k/uL PT 20.3 H (9.0-12.0) sec INR 2.1 H (<1.2) APTT 31.9 H (22.0-30.0) sec Sodium (137-145) mmol/L Potassium (3.5-5.1) mmol/L Chloride (98-107) mmol/L Carbon Dioxide (22-30) mmol/L Anion Gap mmol/L BUN (9-20) mg/dL Creatinine (0.66-1.25) mg/dL Est GFR (CKD-EPI)AfAm (>60 ml/min/1.73 sqM) Est GFR (CKD-EPI)NonAf (>60 ml/min/1.73 sqM) Glucose (74-99) mg/dL POC Glucose (mg/dL) (75-99) mg/dL POC Glu Hat Cutter ID Calcium (8.4-10.2) mg/dL Total Bilirubin (0.2-1.3) mg/dL AST (17-59) U/L ALT (4-49) U/L Alkaline Phosphatase (38-126) U/L Troponin I (0.000-0.034) ng/mL NT-Pro-B Natriuret Pep 176 pg/mL Total Protein (6.3-8.2) g/dL Albumin (3.5-5.0) g/dL Serum Alcohol mg/dL Acetone, Qual (Negative) 10/17/20 Range/Units 02:05 WBC (3.8-10.6) k/uL RBC (4.30-5.90) m/uL Hgb (13.0-17.5) gm/dL Hct (39.0-53.0) % MCV (80.0-100.0) fL MCH (25.0-35.0) pg MCHC (31.0-37.0) g/dL RDW (11.5-15.5) % Plt Count (150-450) k/uL MPV Neutrophils % % Lymphocytes % % Monocytes % % Eosinophils % % Basophils % % Neutrophils # (1.3-7.7) k/uL Lymphocytes # (1.0-4.8) k/uL Monocytes # (0-1.0) k/uL Eosinophils # (0-0.7) k/uL Basophils # (0-0.2) k/uL PT (9.0-12.0) sec INR (<1.2) APTT (22.0-30.0) sec Sodium (137-145) mmol/L Potassium (3.5-5.1) mmol/L Chloride (98-107) mmol/L Carbon Dioxide (22-30) mmol/L Anion Gap mmol/L BUN (9-20) mg/dL Creatinine (0.66-1.25) mg/dL Est GFR (CKD-EPI)AfAm (>60 ml/min/1.73 sqM) Est GFR (CKD-EPI)NonAf (>60 ml/min/1.73 sqM) Glucose (74-99) mg/dL POC Glucose (mg/dL) 319 H (75-99) mg/dL POC Glu Hat Cutter ID Roz, Cara Calcium (8.4-10.2) mg/dL Total Bilirubin (0.2-1.3) mg/dL AST (17-59) U/L ALT (4-49) U/L Alkaline Phosphatase (38-126) U/L Troponin I (0.000-0.034) ng/mL NT-Pro-B Natriuret Pep pg/mL Total Protein (6.3-8.2) g/dL Albumin (3.5-5.0) g/dL Serum Alcohol mg/dL Acetone, Qual (Negative) Disposition Clinical Impression: Hyperkalemia, Altered mental status, Dehydration, Acute kidney injury Disposition: ADMITTED IP TO THIS HOSP Condition: Fair Is patient prescribed a controlled substance at d/c from ED?: No Referrals: Kristin Emery DO [Primary Care Provider] - 1-2 days
[2020-10-16 22:57] LABS: Basophils % (A) 0 %; Eosinophils # (A) 0.1 k/uL (0-0.7); Eosinophils % (A) 2 %; HCT 40.8 % (39.0-53.0); HGB 13.7 gm/dL (13.0-17.5); Lymphocytes # (A) 1.2 k/uL (1.0-4.8); Lymphocytes % (A) 17 %; MCH 31.6 pg (25.0-35.0); MCHC 33.5 g/dL (31.0-37.0); MCV 94.5 fL (80.0-100.0); Mean Platelet Volume 8.3; Monocytes # (A) 0.4 k/uL (0-1.0); Monocytes % (A) 6 %; Neutrophils # (A) 5.2 k/uL (1.3-7.7); Neutrophils % (A) 72 %; Platelet Count 214 k/uL (150-450); RBC 4.32 m/uL (4.30-5.90); RDW 15.6 % (11.5-15.5); WBC 7.1 k/uL (3.8-10.6)
--- NOTE | 2020-10-16 23:02 | CT ---
EXAMINATION TYPE: CT brain wo con DATE OF EXAM: 10/16/2020 COMPARISON: 06/18/2020 HISTORY: ams, unresponsive CT DLP: 1335.4 mGycm Automated exposure control for dose reduction was used. There is mild cerebral atrophy. There is no mass effect nor midline shift. There is no sign of intrac ranial hemorrhage. There is some small areas of cortical hypodensity in the lateral left temporal lob e. Ovarium is intact. Sella turcica appears normal. IMPRESSION: Mild atrophy. Left temporal lobe hypodensity could relate to some mild atrophy or encephalomalacia wi thout change. No acute intracranial abnormality.
--- NOTE | 2020-10-16 23:05 | XR ---
EXAMINATION TYPE: XR chest 1V portable DATE OF EXAM: 10/16/2020 COMPARISON: 06/22/2020 HISTORY: Short of breath TECHNIQUE: Single view FINDINGS: Heart is enlarged. There is some mild pulmonary interstitial edema. There are chest leads. There is mild blunting of the costophrenic angles. IMPRESSION: Cardiomegaly and pulmonary congestion. This is probably congestive heart failure. Acute i nterstitial pneumonia is also possible. Interstitial infiltrates and cardiomegaly are new compared to old exam.
[2020-10-16 23:07] LABS: INR 2.1 (<1.2); Partial Thromboplastin Time 31.9 sec (22.0-30.0); Prothrombin Time 20.3 sec (9.0-12.0)
[2020-10-16 23:48] LABS: ALT 26 U/L (4-49); AST 24 U/L (17-59); African American GFR (CKD) 44 (>60 ml/min/1.73 sqM); Albumin 3.4 g/dL (3.5-5.0); Alcohol <10 mg/dL; Alkaline Phosphatase 142 U/L (38-126); Anion Gap 4 mmol/L; Blood Urea Nitrogen 31 mg/dL (9-20); Calcium 8.1 mg/dL (8.4-10.2); Carbon Dioxide 27 mmol/L (22-30); Chloride 100 mmol/L (98-107); Glucose 468 mg/dL (74-99); Non-African American GFR(CKD) 38 (>60 ml/min/1.73 sqM); Potassium 5.8 mmol/L (3.5-5.1); Sodium 131 mmol/L (137-145); Total Bilirubin 0.5 mg/dL (0.2-1.3); Total Protein 6.8 g/dL (6.3-8.2)
[2020-10-17 02:41] LABS: Glucose,Whole Blood 319 mg/dL (75-99)
[2020-10-17] MEDS ORDERED: AZITHROMYCIN 500 MG TAB PO STA (02:52)
[2020-10-17] MEDS ORDERED: NALOXONE 0.4 MG/ML 1 ML VIAL IV PRN (03:16)
[2020-10-17] MEDS: SODIUM CHLORIDE 0.9% 1,000 ML IV SCH ×2 (04:56→20:00)
[2020-10-17 05:05] LABS: Appearance,Urine Clear (Clear); Bilirubin,Urine Negative (Negative); Blood,Urine Negative (Negative); Color,Urine Yellow; Glucose,Urine (UA) 4+ (Negative); Ketones,Urine Negative (Negative); Leukocyte Esterase,Urine Negative (Negative); Nitrite,Urine Negative (Negative); Protein,Urine Negative (Negative); Specific Gravity,Urine 1.023 (1.001-1.035); Urobilinogen,Urine <2.0 mg/dL (<2.0)
[2020-10-17 05:36] LABS: Urn Cannabinoid Scrn Detected (NotDetected)
[2020-10-17 05:37] LABS: Amphetamine Screen,Urine Not Detected (NotDetected); Barbiturate Screen,Urine Not Detected (NotDetected); Benzodiazepines Screen,Urine Not Detected (NotDetected); Cocaine Screen,Urine Not Detected (NotDetected); Methadone Screen, Urine Not Detected (NotDetected); Opiate Screen,Urine Not Detected (NotDetected); Oxycodone Screen, Urine Detected (NotDetected); Phencyclidine Screen,Urine Not Detected (NotDetected); Tricyclic Antidepressant,Urine Detected (NotDetected)
[2020-10-17 06:28] LABS: Glucose,Whole Blood 241 mg/dL (75-99)
--- NOTE | 2020-10-17 08:39 | P.NPCON ---
History of Present Illness - Reason for Consult acute renal failure - History of Present Illness Reason for consultation: Acute kidney injury History of present illness: Patient is a 65-year-old male seen in renal consultation for acute kidney injury. Patient's baseline creatinine is near 1 and was elevated at 1.85 on admission. Patient presented to the hospital with altered mental status. He was found to be unresponsive by his last night around 10 PM. Per the chart his blood sugar initially was at 600 and was 485 and he came to the ER. He still quite lethargic. His blood pressure was in the 140s on admission and most recent reading was 86/63 this morning. He is currently maintained on normal saline at 1 30 mL an hour. He has been voiding. No hematuria. He also received antibiotics for presumed pneumonia. Labs from this morning are pending. Blood sugar this morning was 241. Patient's urine drug screen was positive for marijuana, tricyclic antidepressants and oxycodone. No proteinuria on UA. He does have long-standing history of diabetes. He was on lisinopril as well as Lasix at home which are currently held. I do see Celebrex and his home medications as well. Patient is not able to tell me how often he was taking it. He was also on potassium supplementation which is held. Vital signs are stable. General: The patient appeared well nourished and normally developed. HEENT: Head exam is unremarkable. Neck is without jugular venous distension. LUNGS: Breath sounds decreased. HEART: Rate and Rhythm are regular. s. ABDOMEN: Soft, nontender. EXTREMITITES: Left BKA. No edema. Past Medical History Past Medical History: Atrial Fibrillation, Asthma, COPD, CVA/TIA, Diabetes Mellitus, Deep Vein Thrombosis (DVT), GERD/Reflux, Hyperlipidemia, Hypertension, Neurologic Disorder, Osteoarthritis (OA), Pneumonia, Pulmonary Embolus (PE) Additional Past Medical History / Comment(s): MIGRAINES. " ANITICOAGULANT LUPUS". PNEUMOTHRORAX. PERIPHERAL EDEMA. Per cardiology patient has a hx of proximal afib History of Any Multi-Drug Resistant Organisms: MRSA Date of last positivie culture/infection: 02/28/20 MDRO Source:: MRSA FOOT Past Surgical History: Adenoidectomy, Appendectomy, Tonsillectomy Additional Past Surgical History / Comment(s): HAILE FILTER . VEIN STRIPPING. STENTS IN "PELVIC AREA" NOVEMBER 2004., left BKA Past Anesthesia/Blood Transfusion Reactions: No Reported Reaction Past Psychological History: No Psychological Hx Reported Smoking Status: Former smoker Past Alcohol Use History: None Reported Past Drug Use History: None Reported - Past Family History Mother Family Medical History: Coronary Artery Disease (CAD), Myocardial Infarction ([place]), Vascular Disorder Additional Family Medical History / Comment(s): heart disease, peripheral vascular disease. Father Family Medical History: Diabetes Mellitus, Renal Disease Medications and Allergies Home Medications Medication Instructions Recorded Confirmed Type Atorvastatin [Lipitor] 80 mg PO HS 01/09/14 10/16/20 History Topiramate [Topamax] 25 mg PO BID 01/09/14 10/16/20 History Nortriptyline [Pamelor] 50 mg PO HS 08/15/19 10/16/20 History Omeprazole [PriLOSEC] 20 mg PO BID 08/15/19 10/16/20 History Aspirin 81 mg PO DAILY 30 Days #30 chew 08/26/19 10/16/20 Rx Loratadine 10 mg PO HS 10/30/19 10/16/20 History Celecoxib [CeleBREX] 200 mg PO DAILY 02/29/20 10/16/20 History Metoprolol Succinate (ER) [Toprol 50 mg PO DAILY 02/29/20 10/16/20 History XL] Warfarin [Coumadin] 3 mg PO MOTUWEFRSA 02/29/20 10/16/20 History Warfarin [Coumadin] 4.5 mg PO SUTH 02/29/20 10/16/20 History Amiodarone [Cordarone] 200 mg PO DAILY tab 03/07/20 10/16/20 Rx Pregabalin [Lyrica] 300 mg PO BID 05/18/20 10/16/20 History lisinopriL [Zestril] 20 mg PO HS 05/18/20 10/16/20 History Docusate [Colace] 100 mg PO HS 05/19/20 10/16/20 History Furosemide [Lasix] 40 mg PO DAILY #0 tab 05/20/20 10/16/20 Rx metFORMIN HCL [Glucophage] 500 mg PO BID 06/18/20 10/16/20 History Albuterol Nebulized [Ventolin 2.5 mg INHALATION RT-QID PRN 10/16/20 10/16/20 History Nebulized] Budesonide/Formoterol Fumarate 2 puff INHALATION RT-BID PRN 10/16/20 10/16/20 History [Symbicort 160-4.5 Mcg Inhaler] Multivitamins, Thera [Multivitamin 1 tab PO DAILY 10/16/20 10/16/20 History (formulary)] Potassium Chloride ER [K-Dur 10] 10 meq PO DAILY 10/16/20 10/16/20 History Tiotropium [place] [Spiriva 1 spray INHALATION RT-DAILY PRN 10/16/20 10/16/20 History Respimat] oxyCODONE-APAP 10-325MG [Percocet 1 tab PO TID PRN 10/16/20 10/16/20 History 10-325 mg] Allergies Allergy/AdvReac Type Severity Reaction Status Date / Time baclofen Allergy Unknown Verified 06/18/20 18:40 Physical Exam Vitals: Vital Signs Pulse Resp BP Pulse Ox 10/17/20 07:16 54 L 16 86/63 99 10/17/20 03:00 60 18 103/66 96 10/17/20 02:00 65 18 105/70 96 10/17/20 01:00 61 18 102/67 98 10/17/20 00:00 63 20 106/55 95 10/16/20 23:00 67 20 158/83 96 10/16/20 21:51 58 L 20 141/97 97 Intake and Output 10/16/20 10/17/20 10/17/20 22:59 06:59 14:59 Other: Weight 136.078 kg Results - Lab Results Most recent lab results Calcium 8.1 mg/dL (8.4-10.2) L 10/16/20 22:00 10/16/20 22:04 10/16/20 22:00 Assessment and Plan Plan: Assessment: 1. Acute kidney injury mostly prerenal secondary to hypotension and hypovolemia from hyperglycemia and diuretics. Creatinine 1.85 on admission. Baseline creatinine near 1. UA benign. 2. Uncontrolled diabetes. 3. Hyperkalemia secondary to acute kidney injury, lisinopril and potassium supplementation. 4. Hypertonic hyponatremia. Plan: Maintain IV fluids. Hold all antihypertensives. Check bladder scan to rule out urinary retention. Check renal ultrasound. Avoid nephrotoxins. Morning labs pending. Check AM cortisol level. Thank you for the consultation. I will continue to follow the patient with you during his hospital stay
--- NOTE | 2020-10-17 09:45 | US ---
EXAMINATION TYPE: US kidneys/renal and bladder DATE OF EXAM: 10/17/2020 COMPARISON: NONE CLINICAL HISTORY: anderson. ANDERSON EXAM MEASUREMENTS: Right Kidney: 11.1 x 4.7 x 5.3 cm Left Kidney: 12.4 x 5.6 x 5.4 cm *left kidney imaged first due to patient position Right Kidney: no evidence of hydronephrosis Left Kidney: no evidence of hydronephrosis Bladder: appears wnl Bilateral Jets seen: no Urinary bladder is sonolucent IMPRESSION: 1 normal renal ultrasound
[2020-10-17] MEDS ORDERED: IPRATROPIUM 0.5 MG/2.5 ML NEBU INHALATION PRN (10:28)
[2020-10-17] MEDS ORDERED: ALBUTEROL NEBULIZED 2.5 MG/3 ML INHALATION PRN (10:28)
[2020-10-17 11:13] LABS: African American GFR (CKD) 56 (>60 ml/min/1.73 sqM); Anion Gap 5 mmol/L; Blood Urea Nitrogen 29 mg/dL (9-20); Calcium 7.7 mg/dL (8.4-10.2); Carbon Dioxide 23 mmol/L (22-30); Chloride 106 mmol/L (98-107); Glucose 376 mg/dL (74-99); Magnesium 2.3 mg/dL (1.6-2.3); Non-African American GFR(CKD) 49 (>60 ml/min/1.73 sqM); Sodium 134 mmol/L (137-145)
--- NOTE | 2020-10-17 14:27 | P.HPIM ---
History of Present Illness Patient came to the hospital couple is about her mental status and patient was unresponsive but in by at around 10 PM last night with altered mental status patient is alert oriented 3 at this time. patient is found to have high ly elevated blood sugar sugars with the blood pressure of 86 by a 63 blood sugars are in 600 was quite lethargic all of those resolved at this time. Patient is presently on now 1 30 mL of normal saline patient is found to have creatinine of 1.85 baseline around 1. Patient blood sugars have come down as well patient has left eye bony amputation patient doesn't appear to take care of himself very well patient usually uses a walker and wheelchair for ambulation patient does take lisinopril and Lasix at home as well as Celebrex. Patient's urinalysis is not impressive for infection but positive for oxycodone patient does take oxycodone at home tricyclic antidepressants and marijuana Review of Systems REVIEW OF SYSTEMS: CONSTITUTIONAL: No fever, no malaise, no fatigue. HEENT: No recent visual problems or hearing problems. Denied any sore throat. CARDIOVASCULAR: No chest pain, orthopnea, PND, no palpitations, no syncope. PULMONARY: No shortness of breath, no cough, no hemoptysis. GASTROINTESTINAL: No diarrhea, no nausea, no vomiting, no abdominal pain. NEUROLOGICAL: No headaches, no weakness, no numbness. HEMATOLOGICAL: Denies any bleeding or petechiae. GENITOURINARY: Denies any burning micturition, frequency, or urgency. MUSCULOSKELETAL/RHEUMATOLOGICAL: Denies any joint pain, swelling, or any muscle pain. ENDOCRINE: Denies any polyuria or polydipsia. The rest of the 14-point review of systems is negative. Past Medical History Past Medical History: Atrial Fibrillation, Asthma, COPD, CVA/TIA, Diabetes Mellitus, Deep Vein Thrombosis (DVT), GERD/Reflux, Hyperlipidemia, Hypertension, Neurologic Disorder, Osteoarthritis (OA), Pneumonia, Pulmonary Embolus (PE) Additional Past Medical History / Comment(s): MIGRAINES. " ANITICOAGULANT LUPUS". PNEUMOTHRORAX. PERIPHERAL EDEMA. Per cardiology patient has a hx of proximal afib History of Any Multi-Drug Resistant Organisms: MRSA Date of last positivie culture/infection: 02/28/20 MDRO Source:: MRSA FOOT Past Surgical History: Adenoidectomy, Appendectomy, Tonsillectomy Additional Past Surgical History / Comment(s): HAILE FILTER . VEIN STRIPPING. STENTS IN "PELVIC AREA" NOVEMBER 2004., left BKA Past Anesthesia/Blood Transfusion Reactions: No Reported Reaction Past Psychological History: No Psychological Hx Reported Smoking Status: Former smoker Past Alcohol Use History: None Reported Past Drug Use History: None Reported - Past Family History Mother Family Medical History: Coronary Artery Disease (CAD), Myocardial Infarction (IA), Vascular Disorder Additional Family Medical History / Comment(s): heart disease, peripheral vascular disease. Father Family Medical History: Diabetes Mellitus, Renal Disease Medications and Allergies Home Medications Medication Instructions Recorded Confirmed Type Atorvastatin [Lipitor] 80 mg PO HS 01/09/14 10/16/20 History Topiramate [Topamax] 25 mg PO BID 01/09/14 10/16/20 History Nortriptyline [Pamelor] 50 mg PO HS 08/15/19 10/16/20 History Omeprazole [PriLOSEC] 20 mg PO BID 08/15/19 10/16/20 History Aspirin 81 mg PO DAILY 30 Days #30 chew 08/26/19 10/16/20 Rx Loratadine 10 mg PO HS 10/30/19 10/16/20 History Celecoxib [CeleBREX] 200 mg PO DAILY 02/29/20 10/16/20 History Metoprolol Succinate (ER) [Toprol 50 mg PO DAILY 02/29/20 10/16/20 History XL] Warfarin [Coumadin] 3 mg PO [id number] 02/29/20 10/16/20 History Warfarin [Coumadin] 4.5 mg PO SUTH 02/29/20 10/16/20 History Amiodarone [Cordarone] 200 mg PO DAILY tab 03/07/20 10/16/20 Rx Pregabalin [Lyrica] 300 mg PO BID 05/18/20 10/16/20 History lisinopriL [Zestril] 20 mg PO HS 05/18/20 10/16/20 History Docusate [Colace] 100 mg PO HS 05/19/20 10/16/20 History Furosemide [Lasix] 40 mg PO DAILY #0 tab 05/20/20 10/16/20 Rx metFORMIN HCL [Glucophage] 500 mg PO BID 06/18/20 10/16/20 History Albuterol Nebulized [Ventolin 2.5 mg INHALATION RT-QID PRN 10/16/20 10/16/20 History Nebulized] Budesonide/Formoterol Fumarate 2 puff INHALATION RT-BID PRN 10/16/20 10/16/20 History [Symbicort 160-4.5 Mcg Inhaler] Multivitamins, Thera [Multivitamin 1 tab PO DAILY 10/16/20 10/16/20 History (formulary)] Potassium Chloride ER [K-Dur 10] 10 meq PO DAILY 10/16/20 10/16/20 History Tiotropium [place] [Spiriva 1 spray INHALATION RT-DAILY PRN 10/16/20 10/16/20 History Respimat] oxyCODONE-APAP 10-325MG [Percocet 1 tab PO TID PRN 10/16/20 10/16/20 History 10-325 mg] Allergies Allergy/AdvReac Type Severity Reaction Status Date / Time baclofen Allergy Unknown Verified 06/18/20 18:40 Physical Exam Vitals: Vital Signs Pulse Resp BP Pulse Ox 10/17/20 07:16 54 L 16 86/63 99 10/17/20 03:00 60 18 103/66 96 10/17/20 02:00 65 18 105/70 96 10/17/20 01:00 61 18 102/67 98 10/17/20 00:00 63 20 106/55 95 10/16/20 23:00 67 20 158/83 96 10/16/20 21:51 58 L 20 141/97 97 Intake and Output 10/16/20 10/17/20 10/17/20 22:59 06:59 14:59 Other: Weight 136.078 kg PHYSICAL EXAMINATION: GENERAL: The patient is alert and oriented x3, not in any acute distress. Obese HEENT: Pupils are round and equally reacting to light. EOMI. No scleral icterus. No conjunctival pallor. Normocephalic, atraumatic. No pharyngeal erythema. No thyromegaly. CARDIOVASCULAR: S1 and S2 present. No murmurs, rubs, or gallops. PULMONARY: Chest is clear to auscultation, no wheezing or crackles. ABDOMEN: Soft, nontender, nondistended, normoactive bowel sounds. No palpable organomegaly. MUSCULOSKELETAL: No joint swelling or deformity. 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 NEUROLOGICAL: Gross neurological examination did not reveal any focal deficits. SKIN: No rashes. Results CBC & Chem 7: 10/16/20 22:04 10/17/20 10:30 Labs: Abnormal Lab Results - Last 24 Hours (Table) 10/16/20 10/16/20 10/16/20 Range/Units 21:49 22:00 22:04 RDW 15.6 H (11.5-15.5) % PT (9.0-12.0) sec INR (<1.2) APTT (22.0-30.0) sec Sodium 131 L (137-145) mmol/L Potassium 5.8 H (3.5-5.1) mmol/L BUN 31 H (9-20) mg/dL Creatinine 1.85 H (0.66-1.25) mg/dL Glucose 468 H (74-99) mg/dL POC Glucose (mg/dL) 459 H (75-99) mg/dL Calcium 8.1 L (8.4-10.2) mg/dL Alkaline Phosphatase 142 H (38-126) U/L Albumin 3.4 L (3.5-5.0) g/dL Urine Glucose (UA) (Negative) Ur Oxycodone Screen (NotDetected) U Tricyclic Antidepress (NotDetected) U Marijuana (THC) Screen (NotDetected) 10/16/20 10/17/20 10/17/20 Range/Units 22:04 02:05 04:57 RDW (11.5-15.5) % PT 20.3 H (9.0-12.0) sec INR 2.1 H (<1.2) APTT 31.9 H (22.0-30.0) sec Sodium (137-145) mmol/L Potassium (3.5-5.1) mmol/L BUN (9-20) mg/dL Creatinine (0.66-1.25) mg/dL Glucose (74-99) mg/dL POC Glucose (mg/dL) 319 H (75-99) mg/dL Calcium (8.4-10.2) mg/dL Alkaline Phosphatase (38-126) U/L Albumin (3.5-5.0) g/dL Urine Glucose (UA) 4+ H (Negative) Ur Oxycodone Screen Detected H (NotDetected) U Tricyclic Antidepress Detected H (NotDetected) U Marijuana (THC) Screen Detected H (NotDetected) 10/17/20 10/17/20 Range/Units 06:25 10:30 RDW (11.5-15.5) % PT (9.0-12.0) sec INR (<1.2) APTT (22.0-30.0) sec Sodium 134 L (137-145) mmol/L Potassium (3.5-5.1) mmol/L BUN 29 H (9-20) mg/dL Creatinine 1.51 H (0.66-1.25) mg/dL Glucose 376 H (74-99) mg/dL POC Glucose (mg/dL) 241 H (75-99) mg/dL Calcium 7.7 L (8.4-10.2) mg/dL Alkaline Phosphatase (38-126) U/L Albumin (3.5-5.0) g/dL Urine Glucose (UA) (Negative) Ur Oxycodone Screen (NotDetected) U Tricyclic Antidepress (NotDetected) U Marijuana (THC) Screen (NotDetected) Assessment and Plan Plan: -Altered mental status, unresponsiveness: Secondary to metabolic and Zoloft a from highly elevated blood sugars hyponatremia and acute renal failure and toxic encephalopathy from medications patient is on multiple narcotic medications. No evidence of sepsis at this time. -Acute renal failure secondary to prerenal azotemia from excessive diuresis from hyperglycemia patient has uncontrolled elevated blood sugars patient appears to be highly noncompliant with medications patient will be started on insulin and prickly patient only takes metformin at home which will be held secondary to renal failure. -Type 2 diabetes mellitus uncontrolled elevated blood sugars -Hypovolemic hyponatremia -Hyperkalemia secondary to renal failure lisinopril and potassium supplementation -Hypertension lisinopril and Lasix will be held Hyperlipidemia
[2020-10-17 14:57] LABS: Glucose,Whole Blood 318 mg/dL (75-99)
[2020-10-17 16:27] LABS: Glucose,Whole Blood 317 mg/dL (75-99)
[2020-10-17] MEDS: SYMBICORT 160-4.5 MCG INHALER INHALATION SCH ×2 (16:36→21:15)
[2020-10-17] MEDS ORDERED: WARFARIN 1.5 MG TAB PO ONE (18:00)
[2020-10-17] MEDS: oxyCODONE-APAP 5-325MG 1 EACH TAB PO PRN (18:03)
[2020-10-17 20:00] LABS: Glucose,Whole Blood 305 mg/dL (75-99)
[2020-10-17] MEDS: PANTOPRAZOLE 40 MG TABLET PO SCH (20:15)
[2020-10-17] MEDS: DOCUSATE 100 MG CAP PO SCH (20:15)
[2020-10-17] MEDS: PREGABALIN 100 MG CAP PO SCH (20:15)
[2020-10-17] MEDS: TOPIRAMATE 25 MG TAB PO SCH (20:15)
[2020-10-17] MEDS: ATORVASTATIN 80 MG TAB PO SCH (20:15)
[2020-10-17] MEDS: NORTRIPTYLINE 25 MG CAP PO SCH (20:15)
[2020-10-17] MEDS: INSULIN ASPART (NovoLOG) 100 UNIT/ML VIAL SQ SCH (20:16)
[2020-10-18] MEDS: oxyCODONE-APAP 5-325MG 1 EACH TAB PO PRN ×3 (01:08→16:07)
[2020-10-18] MEDS: SODIUM CHLORIDE 0.9% 1,000 ML IV SCH ×3 (01:42→10:16)
[2020-10-18 07:36] LABS: Glucose,Whole Blood 230 mg/dL (75-99)
[2020-10-18 08:47] LABS: INR 2.6 (<1.2); Prothrombin Time 24.9 sec (9.0-12.0)
[2020-10-18 08:48] LABS: African American GFR (CKD) 82 (>60 ml/min/1.73 sqM); Anion Gap 7 mmol/L; Blood Urea Nitrogen 20 mg/dL (9-20); Calcium 8.2 mg/dL (8.4-10.2); Carbon Dioxide 20 mmol/L (22-30); Chloride 109 mmol/L (98-107); Glucose 224 mg/dL (74-99); Non-African American GFR(CKD) 71 (>60 ml/min/1.73 sqM); Potassium 4.7 mmol/L (3.5-5.1); Sodium 136 mmol/L (137-145)
[2020-10-18] MEDS: TOPIRAMATE 25 MG TAB PO SCH ×2 (08:57→21:10)
[2020-10-18] MEDS: PREGABALIN 100 MG CAP PO SCH ×3 (08:57→21:10)
[2020-10-18] MEDS: PANTOPRAZOLE 40 MG TABLET PO SCH ×2 (08:57→21:10)
[2020-10-18] MEDS: INSULIN ASPART (NovoLOG) 100 UNIT/ML VIAL SQ SCH ×4 (08:57→21:09)
[2020-10-18] MEDS ORDERED: AMIODARONE 100 MG TAB PO SCH (09:00)
[2020-10-18] MEDS ORDERED: ASPIRIN 81 MG PO SCH (09:00)
[2020-10-18] MEDS: SYMBICORT 160-4.5 MCG INHALER INHALATION SCH ×2 (09:09→21:02)
--- NOTE | 2020-10-18 10:37 | P.PN ---
Subjective Patient is seen in follow for acute kidney injury. Renal function is improving. Blood pressure stable. Has been voiding. Oral intake. Vital signs are stable. General: The patient appeared well nourished and normally developed. HEENT: Head exam is unremarkable. Neck is without jugular venous distension. LUNGS: Breath sounds decreased. HEART: Rate and Rhythm are regular. ABDOMEN: Soft, nontender. EXTREMITITES: No edema. Objective - Vital Signs Vital signs: Vital Signs Temp 98.4 F 10/18/20 05:00 Pulse 60 10/18/20 08:00 Resp 20 10/18/20 08:00 BP 115/71 10/18/20 05:00 Pulse Ox 93 L 10/18/20 05:00 Intake & Output 10/17/20 10/18/20 10/18/20 18:59 06:59 18:59 Intake Total 100 Output Total 500 300 300 Balance -500 -200 -300 Weight 136.078 kg Intake: Oral 100 Output: Urine 500 300 300 Other: Voiding Method Urinal Urinal # Voids 1 1 # Bowel Movements 1 - Labs CBC & Chem 7: 10/16/20 22:04 10/18/20 07:48 Labs: Abnormal Lab Results - Last 24 Hours (Table) 10/17/20 10/17/20 10/17/20 Range/Units 10:30 14:54 16:20 PT (9.0-12.0) sec INR (<1.2) Sodium 134 L (137-145) mmol/L Chloride (98-107) mmol/L Carbon Dioxide (22-30) mmol/L BUN 29 H (9-20) mg/dL Creatinine 1.51 H (0.66-1.25) mg/dL Glucose 376 H (74-99) mg/dL POC Glucose (mg/dL) 318 H 317 H (75-99) mg/dL Calcium 7.7 L (8.4-10.2) mg/dL 10/17/20 10/18/20 10/18/20 Range/Units 19:58 07:27 07:48 PT (9.0-12.0) sec INR (<1.2) Sodium 136 L (137-145) mmol/L Chloride 109 H (98-107) mmol/L Carbon Dioxide 20 L (22-30) mmol/L BUN (9-20) mg/dL Creatinine (0.66-1.25) mg/dL Glucose 224 H (74-99) mg/dL POC Glucose (mg/dL) 305 H 230 H (75-99) mg/dL Calcium 8.2 L (8.4-10.2) mg/dL 10/18/20 Range/Units 07:48 PT 24.9 H (9.0-12.0) sec INR 2.6 H (<1.2) Sodium (137-145) mmol/L Chloride (98-107) mmol/L Carbon Dioxide (22-30) mmol/L BUN (9-20) mg/dL Creatinine (0.66-1.25) mg/dL Glucose (74-99) mg/dL POC Glucose (mg/dL) (75-99) mg/dL Calcium (8.4-10.2) mg/dL Microbiology - Last 24 Hours (Table) 10/17/20 04:45 Blood Culture - Preliminary Blood No Growth after 24 hours 10/17/20 04:30 Blood Culture - Preliminary Blood No Growth after 24 hours Assessment and Plan Plan: Assessment: 1. Acute kidney injury mostly prerenal secondary to hypotension and hypovolemia from hyperglycemia and diuretics. Creatinine 1.85 on admission and is down to 1.11 today. Baseline creatinine near 1. UA benign. No hydronephrosis noted on kidney ultrasound. 2. Uncontrolled diabetes. 3. Hyperkalemia secondary to acute kidney injury, lisinopril and potassium supplementation. Improved. 4. Hypertonic hyponatremia. Improved. 5. Metabolic acidosis secondary to acute kidney injury and Topamax. Plan: Decrease rate of normal saline to 50 mL an hour. Avoid nephrotoxins. Follow-up morning cortisol level. Encourage oral intake.
[2020-10-18 11:27] LABS: Basophils # (A) 0.02 X 10*3/uL (0.00-0.10); Basophils % (A) 0.3 %; Eosinophils % (A) 1.4 %; HCT 38.1 % (39.6-50.0); HGB 12.5 g/dL (13.0-17.0); Lymphocytes # (A) 1.52 X 10*3/uL (0.90-5.00); Lymphocytes % (A) 21.9 %; MCH 31.1 pg (27.0-32.0); MCHC 32.8 g/dL (32.0-37.0); MCV 94.8 fL (80.0-97.0); Mean Platelet Volume 11.9 fL (9.5-12.2); Monocytes # (A) 0.58 X 10*3/uL (0.20-1.00); Monocytes % (A) 8.3 %; Neutrophils # (A) 4.71 X 10*3/uL (1.80-7.70); Neutrophils % (A) 67.8 %; Platelet Count 176 X 10*3/uL (140-440); RBC 4.02 X 10*6/uL (4.40-5.60); RDW 15.3 % (11.5-14.5); WBC 6.95 X 10*3/uL (4.50-10.00)
[2020-10-18 12:19] LABS: Glucose,Whole Blood 192 mg/dL (75-99)
[2020-10-18 12:27] VITALS: RESP 18
[2020-10-18] MEDS: IOPAMIDOL CONTRAST (ORAL USE) VIAL PO PRN ×2 (15:11→16:04)
--- NOTE | 2020-10-18 15:25 | P.DS ---
Providers Date of admission: 10/17/20 03:16 Attending physician: Shadia Alvarez Consults: 10/17/20 04:46 Consult Physician Routine Consulting Provider: Pb Valenzuela Consult Reason/Comments: Acute kidney injury Do you want consulting provider notified?: Yes Primary care physician: Kristin mEery [place] Hospital Course: Patient came to the hospital couple is about her mental status and patient was unresponsive but in by at around 10 PM last night with altered mental status patient is alert oriented 3 at this time. patient is found to have highly elevated blood sugar sugars with the blood pressure of 86 by a 63 blood sugars are in 600 was quite lethargic all of those resolved at this time. Patient is presently on now 1 30 mL of normal saline patient is found to have creatinine of 1.85 baseline around 1. Patient blood sugars have come down as well patient has left eye bony amputation patient doesn't appear to take care of himself very well patient usually uses a walker and wheelchair for ambulation patient does take lisinopril and Lasix at home as well as Celebrex. Patient's urinalysis is not impressive for infection but positive for oxycodone patient does take oxycodone at home tricyclic antidepressants and marijuana 10/18/2020 and sent patient's hyponatremia resolved, renal failure resolved and hypokalemia resolved. Patient's lisinopril was discontinued and diuretics were discontinued. Discussed with the nephrology will follow with the patient is an outpatient. When I valid the patient is started comparing of pain in the left lower quadrant of abdomen which is dull [id number] pain because of which I'll obtain a CT of the abdomen without IV contrast and with oral contrast and there is no significant abnormality patient will be discharged. PHYSICAL EXAMINATION: GENERAL: The patient is alert and oriented x3, not in any acute distress. Obese HEENT: Pupils are round and equally reacting to light. EOMI. No scleral icterus. No conjunctival pallor. Normocephalic, atraumatic. No pharyngeal erythema. No thyromegaly. CARDIOVASCULAR: S1 and S2 present. No murmurs, rubs, or gallops. PULMONARY: Chest is clear to auscultation, no wheezing or crackles. ABDOMEN: Soft, nontender, nondistended, normoactive bowel sounds. No palpable organomegaly. MUSCULOSKELETAL: No joint swelling or deformity. 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 NEUROLOGICAL: Gross neurological examination did not reveal any focal deficits. SKIN: No rashes. Assessment and Plan Plan: -Altered mental status, unresponsiveness: Secondary to metabolic and Zoloft a from highly elevated blood sugars hyponatremia and acute renal failure and toxic encephalopathy from medications patient is on multiple narcotic medications. No evidence of sepsis at this time. Patient's electrolytes improved and mental status improved. -Left lower quadrant abdominal pain etiology is not clear about a CT of the abdomen -Acute renal failure secondary to prerenal azotemia from excessive diuresis from hyperglycemia patient has uncontrolled elevated blood sugars patient appears to be highly noncompliant with medications acute renal failure improved -Type 2 diabetes mellitus uncontrolled elevated blood sugars -Hypovolemic hyponatremia improved with IV fluids -Hyperkalemia secondary to renal failure lisinopril and potassium supplementation -Hypertension lisinopril and Lasix will be held upon discharge Hyperlipidemia Patient Condition at Discharge: Fair Plan - Discharge Summary New Discharge Prescriptions: Continue Atorvastatin [Lipitor] 80 mg PO HS Topiramate [Topamax] 25 mg PO BID Omeprazole [PriLOSEC] 20 mg PO BID Nortriptyline [Pamelor] 50 mg PO HS Aspirin 81 mg PO DAILY 30 Days #30 chew Loratadine 10 mg PO HS Celecoxib [CeleBREX] 200 mg PO DAILY Metoprolol Succinate (ER) [Toprol XL] 50 mg PO DAILY Amiodarone [Cordarone] 200 mg PO DAILY tab Docusate [Colace] 100 mg PO HS metFORMIN HCL [Glucophage] 500 mg PO BID Tiotropium [place] [Spiriva Respimat] 1 spray INHALATION RT-DAILY PRN PRN Reason: Shortness Of Breath Budesonide/Formoterol Fumarate [Symbicort 160-4.5 Mcg Inhaler] 2 puff INHALATION RT-BID PRN PRN Reason: Shortness Of Breath Albuterol Nebulized [Ventolin Nebulized] 2.5 mg INHALATION RT-QID PRN PRN Reason: Shortness Of Breath Multivitamins, Thera [Multivitamin (formulary)] 1 tab PO DAILY oxyCODONE-APAP 10-325MG [Percocet 10-325 mg] 1 tab PO TID PRN PRN Reason: Pain Changed Warfarin [Coumadin] 3 mg PO DAILY #0 Pregabalin [Lyrica] 200 mg PO BID #0 Discontinued Warfarin [Coumadin] 4.5 mg PO SUTH lisinopriL [Zestril] 20 mg PO HS Furosemide [Lasix] 40 mg PO DAILY #0 tab Potassium Chloride ER [K-Dur 10] 10 meq PO DAILY Discharge Medication List Atorvastatin [Lipitor] 80 mg PO HS 01/09/14 [History] Topiramate [Topamax] 25 mg PO BID 01/09/14 [History] Nortriptyline [Pamelor] 50 mg PO HS 08/15/19 [History] Omeprazole [PriLOSEC] 20 mg PO BID 08/15/19 [History] Aspirin 81 mg PO DAILY 30 Days #30 chew 08/26/19 [Rx] Loratadine 10 mg PO HS 10/30/19 [History] Celecoxib [CeleBREX] 200 mg PO DAILY 02/29/20 [History] Metoprolol Succinate (ER) [Toprol XL] 50 mg PO DAILY 02/29/20 [History] Amiodarone [Cordarone] 200 mg PO DAILY tab 03/07/20 [Rx] Docusate [Colace] 100 mg PO HS 05/19/20 [History] metFORMIN HCL [Glucophage] 500 mg PO BID 06/18/20 [History] Albuterol Nebulized [Ventolin Nebulized] 2.5 mg INHALATION RT-QID PRN 10/16/20 [History] Budesonide/Formoterol Fumarate [Symbicort 160-4.5 Mcg Inhaler] 2 puff INHALATION RT-BID PRN 10/16/20 [History] Multivitamins, Thera [Multivitamin (formulary)] 1 tab PO DAILY 10/16/20 [History] Tiotropium [place] [Spiriva Respimat] 1 spray INHALATION RT-DAILY PRN 10/16/20 [History] oxyCODONE-APAP 10-325MG [Percocet 10-325 mg] 1 tab PO TID PRN 10/16/20 [History] Pregabalin [Lyrica] 200 mg PO BID #0 10/18/20 [Rx] Warfarin [Coumadin] 3 mg PO DAILY #0 10/18/20 [Rx] Follow up Appointment(s)/Referral(s): Kristin Emery DO [Primary Care Provider] - 3 Days (The office was closed at the time of your discharge. Please call the office to schedule your follow-up appointment.) [facility] [NON-STAFF] - 1 Week (The office was closed at time of discharge. Please call to schedule your follow-up appointment.) Pb Valenzuela DO [STAFF PHYSICIAN] - 1 Week (Please call the office to schedule your appointment. The office was closed at the time of your discharge.) Ambulatory/Diagnostic Orders: Basic Metabolic Panel [LAB.AMB] Time Frame: 3 Days, Location: None Selected Discharge Disposition: HOME SELF-CARE
[2020-10-18 16:57] LABS: Glucose,Whole Blood 281 mg/dL (75-99)
[2020-10-18] MEDS ORDERED: WARFARIN 3 MG TAB PO ONE (18:00)
--- NOTE | 2020-10-18 18:46 | CT ---
EXAMINATION TYPE: CT abdomen pelvis wo con DATE OF EXAM: 10/18/2020 COMPARISON: None available. HISTORY: Right lower quadrant abdominal pain. CT DLP: 1497.8 mGycm Automated exposure control for dose reduction was used. TECHNIQUE: Helical acquisition of images was performed from the lung bases through the pelvis. FINDINGS: LUNG BASES: Moderate emphysematous changes without acute abnormality. LIVER/GB: No significant abnormality is appreciated. PANCREAS: No significant abnormality is seen. SPLEEN: No significant abnormality is seen. ADRENALS: No significant abnormality is seen. KIDNEYS: No acute abnormality is seen. 5 mm right renal cystic structure in the lower pole. FREE AIR: No free air is visualized RETROPERITONEAL ADENOPATHY: None visualized REPRODUCTIVE ORGANS: No significant abnormality is seen URINARY BLADDER: No significant abnormality is seen. PELVIC ADENOPATHY: None visualized. OSSEOUS STRUCTURES: No acute abnormality is seen. Moderate lumbar spondylosis with endplate degenera tive changes. Left hip arthroplasty seen. BOWEL: No significant abnormality is seen. Appendix is not identified, but no evidence for acute gerda endicitis. OTHER: IVC filter is seen. Moderate to advanced aortoiliac atherosclerotic disease. Surgical clip in the right inguinal canal seen. IMPRESSION: NO ACUTE ABNORMALITY OR EVIDENCE FOR APPENDICITIS. Incidental findings as above.
[2020-10-18 20:51] VITALS: BP 140/83; PULSE 66; TEMP 98.3
[2020-10-18 20:56] LABS: Glucose,Whole Blood 218 mg/dL (75-99)
[2020-10-18] MEDS: ATORVASTATIN 80 MG TAB PO SCH (21:08)
[2020-10-18] MEDS: DOCUSATE 100 MG CAP PO SCH (21:09)
[2020-10-18] MEDS: NORTRIPTYLINE 25 MG CAP PO SCH (21:09)
== END 2020-10-18 21:40 | disposition home or self-care (01) ==
LOC: EC 21:47 → 4SSUR 10-17 03:16 → 5NMEDONC 10-18 01:54
PROVIDERS: ADMIT Hospitalist; ATTEND Hospitalist
DX: R41.82 Altered mental status, unspecified (principal); G92 Toxic encephalopathy; T40.605A Adverse effect of unspecified narcotics, initial encounter; T42.6X5A Adverse effect of other antiepileptic and sedative-hypnotic drugs, initial encounter; E11.65 Type 2 diabetes mellitus with hyperglycemia; E87.1 Hypo-osmolality and hyponatremia; N17.9 Acute kidney failure, unspecified; R10.32 Left lower quadrant pain; Z91.14 Patient's other noncompliance with medication regimen; E66.9 Obesity, unspecified; Z68.41 Body mass index [BMI] 40.0-44.9, adult; E86.1 Hypovolemia; E87.5 Hyperkalemia; I10 Essential (primary) hypertension; E78.5 Hyperlipidemia, unspecified; E87.2 Acidosis; E86.0 Dehydration; J44.9 Chronic obstructive pulmonary disease, unspecified; I48.0 Paroxysmal atrial fibrillation; K21.9 Gastro-esophageal reflux disease without esophagitis; M19.90 Unspecified osteoarthritis, unspecified site; G43.909 Migraine, unspecified, not intractable, without status migrainosus; R60.0 Localized edema; Z20.822 Contact with and (suspected) exposure to COVID-19; Z86.73 Personal history of transient ischemic attack (TIA), and cerebral infarction without residual deficits; Z86.718 Personal history of other venous thrombosis and embolism; Z87.01 Personal history of pneumonia (recurrent); Z86.711 Personal history of pulmonary embolism; Z86.14 Personal history of Methicillin resistant Staphylococcus aureus infection; Z87.891 Personal history of nicotine dependence; Z89.512 Acquired absence of left leg below knee; Z95.828 Presence of other vascular implants and grafts; Z79.899 Other long term (current) drug therapy; Z79.82 Long term (current) use of aspirin; Z79.1 Long term (current) use of non-steroidal anti-inflammatories (NSAID); Z79.01 Long term (current) use of anticoagulants; Z79.84 Long term (current) use of oral hypoglycemic drugs; Z79.51 Long term (current) use of inhaled steroids; Z79.891 Long term (current) use of opiate analgesic; Z88.8 Allergy status to other drugs, medicaments and biological substances; Z82.49 Family history of ischemic heart disease and other diseases of the circulatory system; Z83.3 Family history of diabetes mellitus; Z84.1 Family history of disorders of kidney and ureter
CPT/HCPCS: 96365; 96366; 99285; 36415 ×2; 93005; 83880; 80053; 80048 ×2; 82533; 82140; 82009; 83735; 84484; 85025 ×2; 85610 ×2; 85730; 81003; 87040; 80306; 84145; 87635; 71045; 76770; 70450; 74176; G0378 ×3; G0480; J0696; 80320

== ENCOUNTER 2020-10-20 15:26 | Emergency (ER) | payer MEDICARE ==
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
[2020-10-20 17:01] VITALS: BP 112/90; PULSE 94; RESP 20; TEMP 98.8
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
[2020-10-20 18:35] LABS: Basophils % (A) 0 %; Eosinophils % (A) 0 %; HCT 40.1 % (39.0-53.0); HGB 13.7 gm/dL (13.0-17.5); Lymphocytes # (A) 0.8 k/uL (1.0-4.8); Lymphocytes % (A) 9 %; MCH 31.6 pg (25.0-35.0); MCHC 34.2 g/dL (31.0-37.0); MCV 92.4 fL (80.0-100.0); Mean Platelet Volume 8.4; Monocytes # (A) 0.5 k/uL (0-1.0); Monocytes % (A) 5 %; Neutrophils # (A) 7.9 k/uL (1.3-7.7); Neutrophils % (A) 85 %; Platelet Count 225 k/uL (150-450); RBC 4.34 m/uL (4.30-5.90); RDW 15.6 % (11.5-15.5); WBC 9.3 k/uL (3.8-10.6)
[2020-10-20 18:44] LABS: Albumin 3.5 g/dL (3.5-5.0); Calcium 8.9 mg/dL (8.4-10.2); Magnesium 1.8 mg/dL (1.6-2.3); Potassium 4.8 mmol/L (3.5-5.1); Total Bilirubin 0.6 mg/dL (0.2-1.3); Total Protein 6.8 g/dL (6.3-8.2)
== END 2020-10-20 20:46 | disposition other institution (70) ==
LOC: EC 15:26
DX: Z02.89 Encounter for other administrative examinations (principal); F32.9 Major depressive disorder, single episode, unspecified; E11.9 Type 2 diabetes mellitus without complications; I10 Essential (primary) hypertension; M19.90 Unspecified osteoarthritis, unspecified site; K21.9 Gastro-esophageal reflux disease without esophagitis; I48.91 Unspecified atrial fibrillation; G43.909 Migraine, unspecified, not intractable, without status migrainosus; J44.9 Chronic obstructive pulmonary disease, unspecified; E78.5 Hyperlipidemia, unspecified; Z86.73 Personal history of transient ischemic attack (TIA), and cerebral infarction without residual deficits; Z86.711 Personal history of pulmonary embolism; Z86.718 Personal history of other venous thrombosis and embolism; Z87.891 Personal history of nicotine dependence; Z79.82 Long term (current) use of aspirin; Z79.01 Long term (current) use of anticoagulants; Z79.899 Other long term (current) drug therapy; Z79.51 Long term (current) use of inhaled steroids; Z79.84 Long term (current) use of oral hypoglycemic drugs; Z79.1 Long term (current) use of non-steroidal anti-inflammatories (NSAID)
CPT/HCPCS: 36415; 80053; 82075; 83735; 85025; 99284

== ENCOUNTER 2020-11-20 18:45 | Inpatient (IN) | payer MEDICARE ==
--- NOTE | 2020-11-20 19:16 | ED ---
Recheck HPI - General Chief Complaint: Recheck/Abnormal Lab/Rx Stated Complaint: abn labs Time Seen by Provider: 11/20/20 19:03 Source: patient Mode of arrival: wheelchair Limitations: no limitations - History of Present Illness Initial Comments: 65-year-old male extensive past medical history presenting to the ER today for chief complaint of "abnormal labs". Patient states that his physician to routine labs this morning (pt states he had no complaints) and was told around 430PM to come to ther ER. Patient states he feels "fine". denies complaints, but openly admits he has been noncompliant with medications including his insulin. Pt states he does have kidney disease, but refuses dialysis. Pt states "i wont do that". Pt denies additional complaints, patient denies any recent fever, chills, shortness of breath, chest pain, back pain, abdominal pain, nausea or vomiting, numbness or tingling, dysuria or hematuria, constipation or diarrhea, headaches or visual changes, or any other complaints. Overall very poor historian. He does not appear altered this appears to be choice/frustration. - Related Data Home Medications Medication Instructions Recorded Confirmed Atorvastatin [Lipitor] 80 mg PO HS 01/09/14 11/20/20 Topiramate [Topamax] 25 mg PO BID 01/09/14 11/20/20 Nortriptyline [Pamelor] 50 mg PO HS 08/15/19 11/20/20 Omeprazole [PriLOSEC] 20 mg PO BID 08/15/19 11/20/20 Loratadine 10 mg PO HS 10/30/19 11/20/20 Celecoxib [CeleBREX] 200 mg PO DAILY 02/29/20 11/20/20 Metoprolol Succinate (ER) [Toprol 50 mg PO DAILY 02/29/20 11/20/20 XL] Docusate [Colace] 100 mg PO HS 05/19/20 11/20/20 metFORMIN HCL [Glucophage] 500 mg PO BID 06/18/20 11/20/20 Albuterol Nebulized [Ventolin 2.5 mg INHALATION RT-QID PRN 10/16/20 11/20/20 Nebulized] Budesonide/Formoterol Fumarate 2 puff INHALATION RT-BID PRN 10/16/20 11/20/20 [Symbicort 160-4.5 Mcg Inhaler] Multivitamins, Thera [Multivitamin 1 tab PO DAILY 10/16/20 11/20/20 (formulary)] Tiotropium [place] [Spiriva 1 spray INHALATION RT-DAILY PRN 10/16/20 11/20/20 Respimat] oxyCODONE-APAP 10-325MG [Percocet 1 tab PO TID PRN 10/16/20 11/20/20 10-325 mg] Previous Rx's Medication Instructions Recorded Aspirin 81 mg PO DAILY 30 Days #30 chew 08/26/19 Amiodarone [Cordarone] 200 mg PO DAILY tab 03/07/20 Allergies Allergy/AdvReac Type Severity Reaction Status Date / Time baclofen Allergy Unknown Verified 11/20/20 19:52 Review of Systems ROS Statement: Those systems with pertinent positive or pertinent negative responses have been documented in the HPI. ROS Other: All systems not noted in ROS Statement are negative. Past Medical History Past Medical History: Atrial Fibrillation, Asthma, COPD, CVA/TIA, Diabetes Mellitus, Deep Vein Thrombosis (DVT), GERD/Reflux, Hyperlipidemia, Hypertension, Neurologic Disorder, Osteoarthritis (OA), Pneumonia, Pulmonary Embolus (PE) Additional Past Medical History / Comment(s): MIGRAINES. " ANITICOAGULANT LUPUS". PNEUMOTHRORAX. PERIPHERAL EDEMA. Per cardiology patient has a hx of proximal afib History of Any Multi-Drug Resistant Organisms: MRSA Date of last positivie culture/infection: 02/28/20 MDRO Source:: MRSA FOOT Past Surgical History: Adenoidectomy, Appendectomy, Tonsillectomy Additional Past Surgical History / Comment(s): HAILE FILTER . VEIN STRIPPING. STENTS IN "PELVIC AREA" NOVEMBER 2004., left BKA Past Anesthesia/Blood Transfusion Reactions: No Reported Reaction Past Psychological History: No Psychological Hx Reported Smoking Status: Former smoker Past Alcohol Use History: None Reported Past Drug Use History: None Reported - Past Family History Mother Family Medical History: Coronary Artery Disease (CAD), Myocardial Infarction (M I), Vascular Disorder Additional Family Medical History / Comment(s): heart disease, peripheral vascular disease. Father Family Medical History: Diabetes Mellitus, Renal Disease General Exam - General Exam Comments Initial Comments: General: The patient is awake and alert, in no distress Eye: +3 mm pupils are equal, round and reactive to light, extra-ocular movements are intact. No nystagmus. There is normal conjunctiva bilaterally. No signs of icterus. Ears, nose, mouth and throat: There are moist mucous membranes and no oral lesions. Neck: The neck is supple, there is no tenderness or JVD. Cardiovascular: There is a regular rate and rhythm. No murmur, rub or gallop is appreciated. Respiratory: Lungs are clear to auscultation, respirations are non-labored, breath sounds are equal. No wheezes, stridor, rales, or rhonchi. Gastrointestinal: Soft, non-distended, non-tender abdomen without masses or or ganomegaly noted. There is no rebound or guarding present. Musculoskeletal: Left JESSENIA. Normal ROM, no tenderness. Strength 5/5. Sensation intact. Radial pulses equal bilaterally 2+. Neurological: A&O x 3. CN II-XII intact grossly, There are no obvious motor or sensory deficits. Coordination appears grossly intact. Speech is normal. Skin: Skin is warm and dry and no rashes or lesions are noted. Psychiatric: Cooperative, appropriate mood & affect, normal judgment. Limitations: no limitations Course Vital Signs 11/20/20 11/20/20 11/20/20 18:52 20:20 21:17 Temperature 97.5 F L Pulse Rate 64 62 60 Respiratory 18 16 16 Rate Blood Pressure 109/72 107/69 120/71 O2 Sat by Pulse 97 96 95 Oximetry Medical Decision Making - Medical Decision Making Patient is found to be hypoglycemic as well as hyperkalemic. Patient denying Within acceptable limits with acetone negative. Patient denies any bloody or dark stools his INR is supratherapeutic at 5.9. pt EKG no findings suggestive of hyperkalemia the patient was given IV insulin for the hyperglycemia as well as treatment of the hyperkalemia. I discussed the case by attending provider Dr. Hood who is agreeable to admission for electrolyte abnormalities and glycemic control. Patient is agreeable to admission, admission accepted by Dr. Brewer. Ventricular rate at 65 bpm, IL interval 186 small seconds, QRS ration 118 ms, QT/QTC 4:30/447. This is normal sinus there is no ST elevation or depression appreciated there are no hyperacute T waves nor widening of the QRS segments. - Lab Data Result diagrams: 11/20/20 19:28 11/20/20 19:28 Lab Results 11/20/20 11/20/20 11/20/20 Range/Units 19:28 19:28 20:19 WBC 7.9 (3.8-10.6) k/uL RBC 4.58 (4.30-5.90) m/uL Hgb 13.9 (13.0-17.5) gm/dL Hct 44.4 (39.0-53.0) % MCV 96.9 (80.0-100.0) fL MCH 30.3 (25.0-35.0) pg MCHC 31.3 (31.0-37.0) g/dL RDW 15.1 (11.5-15.5) % Plt Count 254 (150-450) k/uL MPV 8.5 Neutrophils % 73 % Lymphocytes % 18 % Monocytes % 5 % Eosinophils % 2 % Basophils % 0 % Neutrophils # 5.8 (1.3-7.7) k/uL Lymphocytes # 1.4 (1.0-4.8) k/uL Monocytes # 0.4 (0-1.0) k/uL Eosinophils # 0.1 (0-0.7) k/uL Basophils # 0.0 (0-0.2) k/uL Hypochromasia Slight PT (9.0-12.0) sec INR (<1.2) APTT (22.0-30.0) sec Sodium 128 L (137-145) mmol/L Potassium 6.0 H (3.5-5.1) mmol/L Chloride 97 L (98-107) mmol/L Carbon Dioxide 21 L (22-30) mmol/L Anion Gap 10 mmol/L BUN 24 H (9-20) mg/dL Creatinine 1.22 (0.66-1.25) mg/dL Est GFR (CKD-EPI)AfAm 73 (>60 ml/min/1.73 sqM) Est GFR (CKD-EPI)NonAf 63 (>60 ml/min/1.73 sqM) Glucose 676 H* (74-99) mg/dL POC Glucose (mg/dL) (75-99) mg/dL POC Glu Lead Teacher ID Calcium 8.5 (8.4-10.2) mg/dL Magnesium 1.9 (1.6-2.3) mg/dL Total Bilirubin 0.6 (0.2-1.3) mg/dL AST 24 (17-59) U/L ALT 16 (4-49) U/L Alkaline Phosphatase 146 H (38-126) U/L Total Protein 6.8 (6.3-8.2) g/dL Albumin 3.5 (3.5-5.0) g/dL Urine Color Light Yellow Urine Appearance Clear (Clear) Urine pH 5.0 (5.0-8.0) Ur Specific [place] 1.027 (1.001-1.035) Urine Protein Negative (Negative) Urine Glucose (UA) 4+ H (Negative) Urine Ketones Negative (Negative) Urine Blood Negative (Negative) Urine Nitrite Negative (Negative) Urine Bilirubin Negative (Negative) Urine Urobilinogen <2.0 (<2.0) mg/dL Ur Leukocyte Esterase Negative (Negative) Acetone, Qual Negative (Negative) 11/20/20 11/20/20 Range/Units 20:19 21:14 WBC (3.8-10.6) k/uL RBC (4.30-5.90) m/uL Hgb (13.0-17.5) gm/dL Hct (39.0-53.0) % MCV (80.0-100.0) fL MCH (25.0-35.0) pg MCHC (31.0-37.0) g/dL RDW (11.5-15.5) % Plt Count (150-450) k/uL MPV Neutrophils % % Lymphocytes % % Monocytes % % Eosinophils % % Basophils % % Neutrophils # (1.3-7.7) k/uL Lymphocytes # (1.0-4.8) k/uL Monocytes # (0-1.0) k/uL Eosinophils # (0-0.7) k/uL Basophils # (0-0.2) k/uL Hypochromasia PT 57.2 H (9.0-12.0) sec INR 5.9 H* (<1.2) APTT 51.7 H (22.0-30.0) sec Sodium (137-145) mmol/L Potassium (3.5-5.1) mmol/L Chloride (98-107) mmol/L Carbon Dioxide (22-30) mmol/L Anion Gap mmol/L BUN (9-20) mg/dL Creatinine (0.66-1.25) mg/dL Est GFR (CKD-EPI)AfAm (>60 ml/min/1.73 sqM) Est GFR (CKD-EPI)NonAf (>60 ml/min/1.73 sqM) Glucose (74-99) mg/dL POC Glucose (mg/dL) 555 H (75-99) mg/dL POC Glu Lead Teacher ID Jenifer Sweeney Calcium (8.4-10.2) mg/dL Magnesium (1.6-2.3) mg/dL Total Bilirubin (0.2-1.3) mg/dL AST (17-59) U/L ALT (4-49) U/L Alkaline Phosphatase (38-126) U/L Total Protein (6.3-8.2) g/dL Albumin (3.5-5.0) g/dL Urine Color Urine Appearance (Clear) Urine pH (5.0-8.0) Ur Specific [place] (1.001-1.035) Urine Protein (Negative) Urine Glucose (UA) (Negative) Urine Ketones (Negative) Urine Blood (Negative) Urine Nitrite (Negative) Urine Bilirubin (Negative) Urine Urobilinogen (<2.0) mg/dL Ur Leukocyte Esterase (Negative) Acetone, Qual (Negative) Disposition Clinical Impression: Hyperkalemia, Hyperglycemia, Supratherapeutic INR Disposition: ADMITTED IP TO THIS [facility] Condition: Stable Is patient prescribed a controlled substance at d/c from ED?: No Referrals: Kristin Emery DO [Primary Care Provider] - 1-2 days Time of Disposition: 21:19 Decision to Admit Reason: Admit from EC Decision Date: 11/20/20 Decision Time: 21:19
[2020-11-20 19:50] LABS: Basophils % (A) 0 %; Eosinophils # (A) 0.1 k/uL (0-0.7); Eosinophils % (A) 2 %; HCT 44.4 % (39.0-53.0); HGB 13.9 gm/dL (13.0-17.5); Hypochromasia Slight; Lymphocytes # (A) 1.4 k/uL (1.0-4.8); Lymphocytes % (A) 18 %; MCH 30.3 pg (25.0-35.0); MCHC 31.3 g/dL (31.0-37.0); MCV 96.9 fL (80.0-100.0); Mean Platelet Volume 8.5; Monocytes # (A) 0.4 k/uL (0-1.0); Monocytes % (A) 5 %; Neutrophils # (A) 5.8 k/uL (1.3-7.7); Neutrophils % (A) 73 %; Platelet Count 254 k/uL (150-450); RBC 4.58 m/uL (4.30-5.90); RDW 15.1 % (11.5-15.5); WBC 7.9 k/uL (3.8-10.6)
[2020-11-20 19:52] LABS: ALT 16 U/L (4-49); AST 24 U/L (17-59); African American GFR (CKD) 73 (>60 ml/min/1.73 sqM); Albumin 3.5 g/dL (3.5-5.0); Alkaline Phosphatase 146 U/L (38-126); Anion Gap 10 mmol/L; Blood Urea Nitrogen 24 mg/dL (9-20); Calcium 8.5 mg/dL (8.4-10.2); Carbon Dioxide 21 mmol/L (22-30); Chloride 97 mmol/L (98-107); Magnesium 1.9 mg/dL (1.6-2.3); Non-African American GFR(CKD) 63 (>60 ml/min/1.73 sqM); Sodium 128 mmol/L (137-145); Total Bilirubin 0.6 mg/dL (0.2-1.3); Total Protein 6.8 g/dL (6.3-8.2)
[2020-11-20 20:03] LABS: Glucose 676 mg/dL (74-99)
[2020-11-20] MEDS ORDERED: SODIUM CHLORIDE 0.9% 500 ML 500 ML IV ONE (20:30)
[2020-11-20] MEDS ORDERED: INSULIN REGULAR 100 UNIT/ML VIAL IV ONE (20:39)
[2020-11-20 20:48] LABS: Partial Thromboplastin Time 51.7 sec (22.0-30.0); Prothrombin Time 57.2 sec (9.0-12.0)
[2020-11-20 20:59] LABS: INR 5.9 (<1.2)
[2020-11-20 21:07] LABS: Appearance,Urine Clear (Clear); Bilirubin,Urine Negative (Negative); Blood,Urine Negative (Negative); Color,Urine Light Yellow; Glucose,Urine (UA) 4+ (Negative); Ketones,Urine Negative (Negative); Leukocyte Esterase,Urine Negative (Negative); Nitrite,Urine Negative (Negative); Protein,Urine Negative (Negative); Specific Gravity,Urine 1.027 (1.001-1.035); Urobilinogen,Urine <2.0 mg/dL (<2.0)
[2020-11-20 21:15] LABS: Glucose,Whole Blood 555 mg/dL (75-99)
[2020-11-20] MEDS: SODIUM CHLORIDE 0.9% 1,000 ML IV SCH (21:17)
[2020-11-20] MEDS ORDERED: INSULIN REGULAR 100 UNIT/ML VIAL SQ ONE ×2 (21:17→22:52)
[2020-11-20] MEDS ORDERED: NALOXONE 0.4 MG/ML 1 ML VIAL IV PRN (21:19)
--- NOTE | 2020-11-20 21:30 | XR ---
EXAMINATION TYPE: XR chest 2V DATE OF EXAM: 11/20/2020 COMPARISON: 10/16/2020 HISTORY: Atrial fibrillation. COPD. TECHNIQUE: 3 views FINDINGS: Heart is normal. Lungs are clear of consolidation. There is mild blunting left costophrenic angle. Bony thorax is intact. There is some pleural reaction lateral left lung base. IMPRESSION: Pleural reaction left lung base is new compared to old exam. No heart failure. There is i mprovement in the pulmonary congestion compared to old exam.
[2020-11-20 21:46] LABS: Glucose,Whole Blood 560 mg/dL (75-99)
[2020-11-20 23:06] LABS: Glucose,Whole Blood 454 mg/dL (75-99)
[2020-11-20 23:53] LABS: Glucose,Whole Blood 482 mg/dL (75-99)
[2020-11-21] MEDS ORDERED: ALBUTEROL NEBULIZED 2.5 MG/3 ML INHALATION PRN (00:11)
[2020-11-21] MEDS ORDERED: SYMBICORT 160-4.5 MCG INHALER INHALATION PRN (00:11)
[2020-11-21] MEDS ORDERED: SODIUM BICARBONATE TAB 650 MG TAB PO STA (00:13)
[2020-11-21] MEDS ORDERED: oxyCODONE-APAP 10-325MG 1 EACH TAB PO ONE (00:21)
[2020-11-21] MEDS ORDERED: INSULIN REGULAR 100 UNIT/ML VIAL IV ONE ×2 (00:23→01:15)
[2020-11-21] MEDS ORDERED: ALBUTEROL NEB (CONC) 2.5 MG/0.5 ML INHALATION ONE (00:27)
[2020-11-21] MEDS: PREGABALIN 100 MG CAP PO SCH ×3 (01:15→20:43)
[2020-11-21] MEDS: INSULIN ASPART (NovoLOG) 100 UNIT/ML VIAL SQ SCH ×4 (06:02→20:43)
[2020-11-21 06:26] LABS: Glucose,Whole Blood 340 mg/dL (75-99)
[2020-11-21 08:22] LABS: Basophils % (A) 0 %; Eosinophils # (A) 0.2 k/uL (0-0.7); Eosinophils % (A) 2 %; HGB 13.4 gm/dL (13.0-17.5); Lymphocytes # (A) 2.1 k/uL (1.0-4.8); Lymphocytes % (A) 25 %; MCH 30.5 pg (25.0-35.0); MCHC 32.7 g/dL (31.0-37.0); MCV 93.3 fL (80.0-100.0); Mean Platelet Volume 8.3; Monocytes # (A) 0.5 k/uL (0-1.0); Monocytes % (A) 6 %; Neutrophils # (A) 5.6 k/uL (1.3-7.7); Neutrophils % (A) 65 %; Platelet Count 261 k/uL (150-450); RBC 4.39 m/uL (4.30-5.90); RDW 14.8 % (11.5-15.5); WBC 8.5 k/uL (3.8-10.6)
[2020-11-21 08:32] LABS: Partial Thromboplastin Time 50.1 sec (22.0-30.0); Prothrombin Time 58.1 sec (9.0-12.0)
[2020-11-21] MEDS ORDERED: PREGABALIN 100 MG CAP PO SCH (09:00)
[2020-11-21] MEDS: AMIODARONE 200 MG TAB PO SCH (09:09)
[2020-11-21] MEDS: TOPIRAMATE 25 MG TAB PO SCH ×2 (09:09→20:43)
[2020-11-21] MEDS: SODIUM CHLORIDE 0.9% 1,000 ML IV SCH ×2 (09:09→23:35)
[2020-11-21] MEDS ORDERED: IPRATROPIUM 0.5 MG/2.5 ML NEBU INHALATION PRN (09:50)
[2020-11-21] MEDS: metFORMIN 500 MG TAB PO SCH ×2 (10:05→20:43)
[2020-11-21] MEDS: METOPROLOL SUCCINATE (ER) 50 MG TAB.ER.24H PO SCH (10:05)
[2020-11-21] MEDS: PANTOPRAZOLE 40 MG TABLET PO SCH (10:05)
[2020-11-21 11:37] LABS: Glucose,Whole Blood 261 mg/dL (75-99)
[2020-11-21 12:25] VITALS: BMI 33.1
--- NOTE | 2020-11-21 14:34 | P.HPIM ---
History of Present Illness H&P Date: 11/21/20 Chief Complaint: Abnormal lab 65-year-old male with history of Atrial Fibrillation, Asthma, COPD, CVA/TIA, Diabetes Mellitus, Deep Vein Thrombosis (DVT), GERD/Reflux, Hyperlipidemia, Hypertension, Neurologic Disorder, Osteoarthritis (OA), Pneumonia, Pulmonary Embolus (PE), presenting to the ER today for chief complaint of "abnormal labs". Patient states that he went to his physician for routine labs this morning (pt states he had no complaints) and was told around 430PM to come to ther ER. Patient states he feels "fine". denies complaints, but openly admits he has been noncompliant with medications including his insulin. Pt states he does have kidney disease, but refuses dialysis. Pt states "i wont do that". Pt denies additional complaints, patient denies any recent fever, chills, shortness of breath, chest pain, back pain, abdominal pain, nausea or vomiting, numbness or tingling, dysuria or hematuria, constipation or diarrhea, headaches or visual changes, or any other complaints. Overall very poor historian. Workup in ED revealed an elevated potassium of 6.0, sodium 128, BUN/creatinine of 24/1.22 and blood glucose of 676; patient was treated with IV insulin and dextrose which did help bring potassium and glucose down; patient is admitted to the hospital for further monitoring and treatment Review of Systems REVIEW OF SYSTEMS: CONSTITUTIONAL: No fever, no malaise, no fatigue. HEENT: No recent visual problems or hearing problems. Denied any sore throat. CARDIOVASCULAR: No chest pain, orthopnea, PND, no palpitations, no syncope. PULMONARY: No shortness of breath, no cough, no hemoptysis. GASTROINTESTINAL: No diarrhea, no nausea, no vomiting, no abdominal pain. NEUROLOGICAL: No headaches, no weakness, no numbness. HEMATOLOGICAL: Denies any bleeding or petechiae. GENITOURINARY: Denies any burning micturition, frequency, or urgency. MUSCULOSKELETAL/RHEUMATOLOGICAL: Denies any joint pain, swelling, or any muscle pain. ENDOCRINE: Denies any polyuria or polydipsia. The rest of the 14-point review of systems is negative. Past Medical History Past Medical History: Atrial Fibrillation, Asthma, COPD, CVA/TIA, Diabetes Mellitus, Deep Vein Thrombosis (DVT), GERD/Reflux, Hyperlipidemia, Hypertension, Neurologic Disorder, Osteoarthritis (OA), Pneumonia, Pulmonary Embolus (PE) Additional Past Medical History / Comment(s): MIGRAINES. " ANITICOAGULANT LUPUS". PNEUMOTHRORAX. PERIPHERAL EDEMA. Per cardiology patient has a hx of proximal afib History of Any Multi-Drug Resistant Organisms: MRSA Date of last positivie culture/infection: 02/28/20 MDRO Source:: MRSA FOOT Past Surgical History: Adenoidectomy, Appendectomy, Tonsillectomy Additional Past Surgical History / Comment(s): [place] FILTER . VEIN STRIPPING. STENTS IN "PELVIC AREA" NOVEMBER 2004., left BKA Past Anesthesia/Blood Transfusion Reactions: No Reported Reaction Past Psychological History: No Psychological Hx Reported Additional Psychological History / Comment(s): TAKES CYMBALTA FOR CARPAL TUNNEL. Smoking Status: Current every day smoker Past Alcohol Use History: None Reported Past Drug Use History: None Reported - Past Family History Mother Family Medical History: Coronary Artery Disease (CAD), Myocardial Infarction (PA), Vascular Disorder Additional Family Medical History / Comment(s): heart disease, peripheral vascular disease. Father Family Medical History: Diabetes Mellitus, Renal Disease Medications and Allergies Home Medications Medication Instructions Recorded Confirmed Type Atorvastatin [Lipitor] 80 mg PO HS 01/09/14 11/20/20 History Topiramate [Topamax] 25 mg PO BID 01/09/14 11/20/20 History Nortriptyline [Pamelor] 50 mg PO HS 08/15/19 11/20/20 History Omeprazole [PriLOSEC] 20 mg PO BID 08/15/19 11/20/20 History Aspirin 81 mg PO DAILY 30 Days #30 chew 08/26/19 11/20/20 Rx Loratadine 10 mg PO HS 10/30/19 11/20/20 History Celecoxib [CeleBREX] 200 mg PO DAILY 02/29/20 11/20/20 History Metoprolol Succinate (ER) [Toprol 50 mg PO DAILY 02/29/20 11/20/20 History XL] Amiodarone [Cordarone] 200 mg PO DAILY tab 03/07/20 11/20/20 Rx Docusate [Colace] 100 mg PO HS 05/19/20 11/20/20 History metFORMIN HCL [Glucophage] 500 mg PO BID 06/18/20 11/20/20 History Albuterol Nebulized [Ventolin 2.5 mg INHALATION RT-QID PRN 10/16/20 11/20/20 History Nebulized] Budesonide/Formoterol Fumarate 2 puff INHALATION RT-BID PRN 10/16/20 11/20/20 History [Symbicort 160-4.5 Mcg Inhaler] Multivitamins, Thera [Multivitamin 1 tab PO DAILY 10/16/20 11/20/20 History (formulary)] Tiotropium [place] [Spiriva 1 spray INHALATION RT-DAILY PRN 10/16/20 11/20/20 History Respimat] oxyCODONE-APAP 10-325MG [Percocet 1 tab PO TID PRN 10/16/20 11/20/20 History 10-325 mg] Pregabalin [Lyrica] 200 mg PO BID 11/21/20 11/21/20 History Warfarin [Coumadin] 3 mg PO DAILY 11/21/20 11/21/20 History Allergies Allergy/AdvReac Type Severity Reaction Status Date / Time baclofen Allergy Unknown Verified 11/20/20 19:52 Physical Exam Vitals: Vital Signs Temp Pulse Pulse Resp BP BP Pulse Ox 11/21/20 04:00 75 17 140/75 95 11/21/20 00:49 70 11/21/20 00:37 64 11/21/20 00:00 97.6 F 68 18 146/80 96 11/20/20 23:08 62 16 112/75 95 11/20/20 21:17 60 16 120/71 95 11/20/20 20:20 62 16 107/69 96 11/20/20 18:52 97.5 F L 64 18 109/72 97 Intake and Output 11/20/20 11/21/20 11/21/20 22:59 06:59 14:59 Other: Voiding Method Toilet Weight 108.862 kg 123.5 kg - Constitutional General appearance: Present: average body habitus, cooperative, no acute d istress - EENT Eyes: Present: anicteric sclerae, EOMI, PERRLA, normal appearance ENT: Present: hearing grossly normal, normal oropharynx Ears: bilateral: normal - Neck Neck: Present: normal ROM. Absent: lymphadenopathy, rigidity, thyromegaly Carotids: negative: bruit present Thyroid: bilateral: normal size, negative: enlarged, nodule - Respiratory Respiratory: bilateral: CTA, negative: rales, rhonchi, wheezing - Cardiovascular Rhythm: regular Heart sounds: normal: S1, S2 Abnormal Heart Sounds: Absent: systolic murmur, diastolic murmur - Gastrointestinal General gastrointestinal: Present: normal bowel sounds, soft. Absent: distended, organomegaly, tenderness - Genitourinary Genitourinary Comment(s): deferred - Integumentary Integumentary: Present: normal turgor. Absent: jaundiced, rash, ulcer - Neurologic Neurologic: Present: CNII-XII intact. Absent: focal deficits - Musculoskeletal Musculoskeletal: Present: gait normal, strength equal bilaterally - Psychiatric Psychiatric: Present: A&O x's 3, appropriate affect, intact judgment & insight Results CBC & Chem 7: 11/21/20 07:41 11/21/20 00:52 Labs: Abnormal Lab Results - Last 24 Hours (Table) 11/20/20 11/20/20 11/20/20 Range/Units 19:28 20:19 20:19 PT 57.2 H (9.0-12.0) sec INR 5.9 H* (<1.2) APTT 51.7 H (22.0-30.0) sec Sodium 128 L (137-145) mmol/L Potassium 6.0 H (3.5-5.1) mmol/L Chloride 97 L (98-107) mmol/L Carbon Dioxide 21 L (22-30) mmol/L BUN 24 H (9-20) mg/dL Glucose 676 H* (74-99) mg/dL POC Glucose (mg/dL) (75-99) mg/dL Alkaline Phosphatase 146 H (38-126) U/L Urine Glucose (UA) 4+ H (Negative) 11/20/20 11/20/20 11/20/20 Range/Units 21:14 21:45 23:05 PT (9.0-12.0) sec INR (<1.2) APTT (22.0-30.0) sec Sodium (137-145) mmol/L Potassium (3.5-5.1) mmol/L Chloride (98-107) mmol/L Carbon Dioxide (22-30) mmol/L BUN (9-20) mg/dL Glucose (74-99) mg/dL POC Glucose (mg/dL) 555 H 560 H 454 H (75-99) mg/dL Alkaline Phosphatase (38-126) U/L Urine Glucose (UA) (Negative) 11/20/20 11/21/20 11/21/20 Range/Units 23:50 05:57 07:41 PT 58.1 H (9.0-12.0) sec INR 6.0 H* (<1.2) APTT 50.1 H (22.0-30.0) sec Sodium (137-145) mmol/L Potassium (3.5-5.1) mmol/L Chloride (98-107) mmol/L Carbon Dioxide (22-30) mmol/L BUN (9-20) mg/dL Glucose (74-99) mg/dL POC Glucose (mg/dL) 482 H 340 H (75-99) mg/dL Alkaline Phosphatase (38-126) U/L Urine Glucose (UA) (Negative) Thrombosis Risk Factor Assmnt - Choose All That Apply Each Risk Factor Represents 2 Points: Age 61-74 years Thrombosis Risk Factor Assessment Total Risk Factor Score: 2 Thrombosis Risk Factor Assessment Level: Low Risk Assessment and Plan Assessment: 1. Critical hyperkalemia - Patient was treated with IV dextrose and insulin in ED with potassium 4.0 this morning; we will continue to monitor electrolytes closely with further recommendations as needed - Consult nephrology for further recommendations 2. Marked hyperglycemia without acidosis; blood glucoses in the range of 261- 348 this morning; we will restart home dose of metformin and monitor Accu-Cheks every before meals and at bedtime with insulin sliding scale 3. Acute renal injury; slow IV fluid hydration; monitor strict ERNESTO's, daily weights, renal function and electrolytes; avoid nephrotoxins; nephrology to see patient and make further recommendations 4. Atrial fibrillation; rate controlled with amiodarone and metoprolol 50 mg daily; anticoagulated with Coumadin 5. Hypertension; metoprolol 50 mg daily 6. Hyperlipidemia; Lipitor 80 mg by mouth daily at bedtime 7. COPD; not in exacerbation; continue with home inhaler therapy in form of Symbicort 2 puffs twice a day, albuterol nebulizer treatments 4 times a day when necessary, Claritin 10 mg daily 8. Diabetes mellitus type 2; we will resume home dose of Glucophage 500 mg twice a day; monitor Accu-Cheks every before meals and at bedtime with insulin sliding scale 9. Coagulopathy secondary to Coumadin; INR at 6.0 this morning; Coumadin remains on hold; no signs of bleeding DVT prophylaxis; SCDs/systemic anticoagulation CODE STATUS; DO NOT RESUSCITATE
[2020-11-21 16:41] LABS: Glucose,Whole Blood 223 mg/dL (75-99)
[2020-11-21] MEDS: oxyCODONE-APAP 10-325MG 1 EACH TAB PO PRN ×2 (17:37→23:36)
[2020-11-21] MEDS: ATORVASTATIN 80 MG TAB PO SCH (20:43)
[2020-11-21] MEDS: DOCUSATE 100 MG CAP PO SCH (20:43)
[2020-11-21] MEDS: NORTRIPTYLINE 25 MG CAP PO SCH (20:43)
[2020-11-21] MEDS: LORATADINE 10 MG TAB PO SCH (20:43)
[2020-11-21 20:55] LABS: Glucose,Whole Blood 307 mg/dL (75-99)
[2020-11-22] MEDS: INSULIN ASPART (NovoLOG) 100 UNIT/ML VIAL SQ SCH ×4 (06:33→21:51)
[2020-11-22] MEDS: PANTOPRAZOLE 40 MG TABLET PO SCH (06:33)
[2020-11-22 06:38] LABS: Glucose,Whole Blood 330 mg/dL (75-99)
[2020-11-22 07:53] LABS: Basophils % (A) 0 %; Eosinophils # (A) 0.1 k/uL (0-0.7); Eosinophils % (A) 2 %; HCT 42.4 % (39.0-53.0); HGB 13.8 gm/dL (13.0-17.5); Lymphocytes # (A) 1.7 k/uL (1.0-4.8); Lymphocytes % (A) 18 %; MCH 30.5 pg (25.0-35.0); MCHC 32.6 g/dL (31.0-37.0); MCV 93.3 fL (80.0-100.0); Mean Platelet Volume 8.4; Monocytes # (A) 0.6 k/uL (0-1.0); Monocytes % (A) 6 %; Neutrophils # (A) 6.9 k/uL (1.3-7.7); Neutrophils % (A) 73 %; Platelet Count 241 k/uL (150-450); RBC 4.55 m/uL (4.30-5.90); RDW 14.7 % (11.5-15.5); WBC 9.4 k/uL (3.8-10.6)
[2020-11-22 08:08] LABS: Calcium 8.6 mg/dL (8.4-10.2); Potassium 4.6 mmol/L (3.5-5.1)
[2020-11-22 08:11] LABS: INR 4.7 (<1.2)
[2020-11-22] MEDS: ASPIRIN 81 MG PO SCH (09:01)
[2020-11-22] MEDS: PREGABALIN 100 MG CAP PO SCH ×2 (09:01→20:51)
[2020-11-22] MEDS: oxyCODONE-APAP 10-325MG 1 EACH TAB PO PRN ×2 (09:01→18:09)
[2020-11-22] MEDS: metFORMIN 500 MG TAB PO SCH ×2 (09:01→18:11)
[2020-11-22] MEDS: MULTIVITAMINS, THERA 1 EACH TAB PO SCH (09:01)
[2020-11-22] MEDS: AMIODARONE 200 MG TAB PO SCH (09:01)
[2020-11-22] MEDS: TOPIRAMATE 25 MG TAB PO SCH ×2 (09:01→21:47)
[2020-11-22] MEDS: METOPROLOL SUCCINATE (ER) 50 MG TAB.ER.24H PO SCH (09:01)
[2020-11-22 11:44] LABS: Glucose,Whole Blood 264 mg/dL (75-99)
--- NOTE | 2020-11-22 11:54 | CONS ---
CONSULTATION REASON FOR CONSULT: Renal failure. HISTORY OF PRESENT ILLNESS: Patient is a 65-year-old male with history of hypertension, atrial fibrillation, COPD, type 2 diabetes, who was admitted to the hospital with complaints of abnormal labs as outpatient. The patient denies any significant complaints. His sodium was 128 on 11/20/2020 and it was 134 today. Creatinine has been about 1.2-1.0 mg/dL. Blood pressure has not been significantly low, although I do see a systolic of 96 and 98 mmHg yesterday. Patient is currently voiding. He denies any history of use of nonsteroidal anti-inflammatory agents prior to admission. PAST MEDICAL HISTORY: Significant for atrial fibrillation, asthma, COPD, CVA, TIA, type 2 diabetes, history of DVT, gastroesophageal reflux disease, hyperlipidemia, osteoarthritis, pneumonia, PE. PAST SURGICAL HISTORY: Adenoidectomy, appendectomy, tonsillectomy, [place] filter placement, venous stripping lower legs, left BKA. SOCIAL HISTORY: Positive for smoking. No history of other drug abuse. MEDICATIONS: Medications prior to admission include Lipitor, Topamax, Pamelor, Prilosec, Celebrex, Toprol, Cordarone, Glucophage, Spiriva, Lyrica, Coumadin. ALLERGIES: Include BACLOFEN. REVIEW OF SYSTEMS: As per HPI. Other systems negative. EXAMINATION: Patient is comfortable, awake, not in any acute distress. Blood pressure this morning 125/75, heart rate 65 per minute. He is afebrile. Examination of the heart S1, S2. Examination of the lungs, bilateral breath sounds are heard. Abdomen is soft, nontender. Examination of lower extremities shows trace edema bilaterally. Chronic skin changes noted. 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 LAB: Show sodium 134, potassium 4.6, chloride 105, BUN 17, creatinine 1.05. ASSESSMENT: 1. Chronic kidney disease, NKF stage 3, renal function not far from baseline, currently at baseline. 2. Hyponatremia possibly hypovolemic, actually mostly associated with significant hyperglycemia. Blood sugar was 676 on initial admission. 3. Hyperkalemia on initial admission, potassium of 6.0, treated with IV medication, currently improved. Most likely associated with severe hyperglycemia that was noted on initial admission. No evidence of diabetic ketoacidosis. 4. Chronic obstructive pulmonary disease with exacerbation, currently improving. 5. Coagulopathy associated with use of Coumadin. 6. Atrial fibrillation, chronic, maintained on anticoagulation. PLAN: Encourage increased oral intake. Discontinue Celebrex that patient was taking at home as it will exacerbate the hyperkalemia and acute kidney injury. Control blood sugars. Monitor labs as outpatient. MMODL / IJN: [id number] /
[2020-11-22] MEDS: SODIUM CHLORIDE 0.9% 1,000 ML IV SCH (12:10)
[2020-11-22 16:50] LABS: Glucose,Whole Blood 246 mg/dL (75-99)
--- NOTE | 2020-11-22 18:09 | P.PN ---
Subjective Progress Note Date: 11/22/20 Principal diagnosis: Acute renal injury Critical hyperkalemia Hyperglycemia without acidosis 65-year-old male with history of Atrial Fibrillation, Asthma, COPD, CVA/TIA, Diabetes Mellitus, Deep Vein Thrombosis (DVT), GERD/Reflux, Hyperlipidemia, Hypertension, Neurologic Disorder, Osteoarthritis (OA), Pneumonia, Pulmonary Embolus (PE), presenting to the ER today for chief complaint of "abnormal labs". Patient states that he went to his physician for routine labs this morning (pt states he had no complaints) and was told around 430PM to come to ther ER. Patient states he feels "fine". denies complaints, but openly admits he has been noncompliant with medications including his insulin. Pt states he does have kidney disease, but refuses dialysis. Pt states "i wont do that". Pt denies additional complaints, patient denies any recent fever, chills, shortness of breath, chest pain, back pain, abdominal pain, nausea or vomiting, numbness or tingling, dysuria or hematuria, constipation or diarrhea, headaches or visual changes, or any other complaints. Overall very poor historian. Workup in ED revealed an elevated potassium of 6.0, sodium 128, BUN/creatinine of 24/1.22 and blood glucose of 676; patient was treated with IV insulin and dextrose which did help bring potassium and glucose down; patient is admitted to the hospital for further monitoring and treatment 11/22/2020 Patient is seen and evaluated in room at bedside; patient reports feeling weak and exhausted; no complaining of chest pain; does complain of nausea Vital signs are reviewed temperature of 98, pulse 69, respiration 18 and blood pressure 109/71 and SpO2 of 92% on room air Lab review shows a normal CBC, hemoglobin of 13.8, INR of 4.7 which is trending down slowly; BUN/creatinine down to 17/1.05; blood glucose remains elevated at 264; HbA1c is elevated at 16.0 We will increase metformin up to 1000 mg twice a day; continue to monitor Accu- Cheks every before meals and at bedtime for further adjustment; Coumadin remains on hold and will start once INR is less than 2.5; nephrology has evaluated patient and recommending to discontinue meloxicam and monitor renal function and electrolytes closely Patient has a social situation; currently resides with daughter who is refusing to take patient home and is requesting PT evaluation for possible long-term placement versus skilled rehab Objective - Vital Signs Vital signs: Vital Signs Temp 98.1 F 11/22/20 08:00 Pulse 65 11/22/20 12:00 Resp 20 11/22/20 12:00 BP 93/57 11/22/20 12:00 Pulse Ox 92 L 11/22/20 12:00 Intake & Output 11/21/20 11/22/20 11/22/20 18:59 06:59 18:59 Intake Total 240 480 Output Total 675 250 Balance -435 -250 480 Weight 123.5 kg 123 kg Intake: Oral 240 480 Output: Urine 675 250 Other: Voiding Method Toilet # Voids 1 # Bowel Movements 1 - Exam - Constitutional General appearance: Present: average body habitus, cooperative, no acute distress - EENT Eyes: Present: anicteric sclerae, EOMI, PERRLA, normal appearance ENT: Present: hearing grossly normal, normal oropharynx Ears: bilateral: normal - Neck Neck: Present: normal ROM. Absent: lymphadenopathy, rigidity, thyromegaly Carotids: negative: bruit present Thyroid: bilateral: normal size, negative: enlarged, nodule - Respiratory Respiratory: bilateral: CTA, negative: rales, rhonchi, wheezing - Cardiovascular Rhythm: regular Heart sounds: normal: S1, S2 Abnormal Heart Sounds: Absent: systolic murmur, diastolic murmur - Gastrointestinal General gastrointestinal: Present: normal bowel sounds, soft. Absent: distended, organomegaly, tenderness - Genitourinary Genitourinary Comment(s): deferred - Integumentary Integumentary: Present: normal turgor. Absent: jaundiced, rash, ulcer - Neurologic Neurologic: Present: CNII-XII intact. Absent: focal deficits - Musculoskeletal Musculoskeletal: Present: gait normal, strength equal bilaterally - Psychiatric Psychiatric: Present: A&O x's 3, appropriate affect, intact judgment & insight - Labs CBC & Chem 7: 11/22/20 07:14 11/22/20 07:14 Labs: Abnormal Lab Results - Last 24 Hours (Table) 11/21/20 11/22/20 11/22/20 Range/Units 20:38 06:29 07:14 PT 45.0 H (9.0-12.0) sec INR 4.7 H (<1.2) Sodium (137-145) mmol/L Glucose (74-99) mg/dL POC Glucose (mg/dL) 307 H 330 H (75-99) mg/dL Hemoglobin A1c (4.0-6.0) % 11/22/20 11/22/20 11/22/20 Range/Units 07:14 07:14 11:38 PT (9.0-12.0) sec INR (<1.2) Sodium 134 L (137-145) mmol/L Glucose 289 H (74-99) mg/dL POC Glucose (mg/dL) 264 H (75-99) mg/dL Hemoglobin A1c 16.0 H (4.0-6.0) % 11/22/20 Range/Units 16:43 PT (9.0-12.0) sec INR (<1.2) Sodium (137-145) mmol/L Glucose (74-99) mg/dL POC Glucose (mg/dL) 246 H (75-99) mg/dL Hemoglobin A1c (4.0-6.0) % Assessment and Plan Assessment: 1. Critical hyperkalemia - Patient was treated with IV dextrose and insulin in ED with potassium 4.0 this morning; we will continue to monitor electrolytes closely with further recommendations as needed - Consult nephrology for further recommendations 2. Marked hyperglycemia without acidosis; blood glucoses in the range of 261- 348 this morning; we will restart home dose of metformin and monitor Accu-Cheks every before meals and at bedtime with insulin sliding scale 3. Acute renal injury; slow IV fluid hydration; monitor strict ERNESTO's, daily weights, renal function and electrolytes; avoid nephrotoxins; nephrology to see patient and make further recommendations 4. Atrial fibrillation; rate controlled with amiodarone and metoprolol 50 mg daily; anticoagulated with Coumadin 5. Hypertension; metoprolol 50 mg daily 6. Hyperlipidemia; Lipitor 80 mg by mouth daily at bedtime 7. COPD; not in exacerbation; continue with home inhaler therapy in form of Symbicort 2 puffs twice a day, albuterol nebulizer treatments 4 times a day when necessary, Claritin 10 mg daily 8. Diabetes mellitus type 2; we will resume home dose of Glucophage 500 mg twice a day; monitor Accu-Cheks every before meals and at bedtime with insulin sliding scale 9. Coagulopathy secondary to Coumadin; INR at 6.0 this morning; Coumadin remains on hold; no signs of bleeding DVT prophylaxis; SCDs/systemic anticoagulation CODE STATUS; DO NOT RESUSCITATE
[2020-11-22] MEDS: ATORVASTATIN 80 MG TAB PO SCH (20:51)
[2020-11-22] MEDS: DOCUSATE 100 MG CAP PO SCH (20:51)
[2020-11-22] MEDS: LORATADINE 10 MG TAB PO SCH (20:51)
[2020-11-22] MEDS: NORTRIPTYLINE 25 MG CAP PO SCH (21:47)
[2020-11-22 21:49] LABS: Glucose,Whole Blood 257 mg/dL (75-99)
[2020-11-23] MEDS: SODIUM CHLORIDE 0.9% 1,000 ML IV SCH ×2 (03:17→17:39)
[2020-11-23] MEDS: oxyCODONE-APAP 10-325MG 1 EACH TAB PO PRN ×3 (03:50→23:15)
[2020-11-23 07:28] LABS: Glucose,Whole Blood 206 mg/dL (75-99)
[2020-11-23] MEDS: metFORMIN 500 MG TAB PO SCH (08:00)
[2020-11-23] MEDS: INSULIN ASPART (NovoLOG) 100 UNIT/ML VIAL SQ SCH ×4 (08:00→20:02)
[2020-11-23] MEDS: PANTOPRAZOLE 40 MG TABLET PO SCH (08:01)
[2020-11-23] MEDS: ASPIRIN 81 MG PO SCH (08:01)
[2020-11-23] MEDS: MULTIVITAMINS, THERA 1 EACH TAB PO SCH (08:01)
[2020-11-23] MEDS: PREGABALIN 100 MG CAP PO SCH ×2 (08:02→19:52)
[2020-11-23] MEDS: METOPROLOL SUCCINATE (ER) 50 MG TAB.ER.24H PO SCH (08:03)
[2020-11-23] MEDS: AMIODARONE 200 MG TAB PO SCH (09:11)
[2020-11-23] MEDS: TOPIRAMATE 25 MG TAB PO SCH ×2 (09:12→19:52)
[2020-11-23 11:41] LABS: Glucose,Whole Blood 324 mg/dL (75-99)
[2020-11-23 11:52] LABS: African American GFR (CKD) 67 (>60 ml/min/1.73 sqM); Anion Gap 7 mmol/L; Blood Urea Nitrogen 17 mg/dL (9-20); Calcium 8.3 mg/dL (8.4-10.2); Carbon Dioxide 21 mmol/L (22-30); Chloride 106 mmol/L (98-107); Glucose 297 mg/dL (74-99); Non-African American GFR(CKD) 58 (>60 ml/min/1.73 sqM); Potassium 4.8 mmol/L (3.5-5.1); Sodium 134 mmol/L (137-145)
[2020-11-23 12:06] LABS: INR 3.7 (<1.2); Prothrombin Time 35.3 sec (9.0-12.0)
[2020-11-23 12:07] LABS: Basophils % (A) 0 %; Eosinophils # (A) 0.2 k/uL (0-0.7); Eosinophils % (A) 2 %; HCT 42.5 % (39.0-53.0); Lymphocytes # (A) 1.6 k/uL (1.0-4.8); Lymphocytes % (A) 21 %; Mean Platelet Volume 8.7; Monocytes # (A) 0.4 k/uL (0-1.0); Monocytes % (A) 6 %; Neutrophils # (A) 5.2 k/uL (1.3-7.7); Neutrophils % (A) 69 %; Platelet Count 227 k/uL (150-450); RBC 4.53 m/uL (4.30-5.90); RDW 14.6 % (11.5-15.5); WBC 7.5 k/uL (3.8-10.6)
--- NOTE | 2020-11-23 14:35 | P.PN ---
Subjective Progress Note Date: 11/23/20 Acute renal injury Critical hyperkalemia Hyperglycemia without acidosis 65-year-old male with history of Atrial Fibrillation, Asthma, COPD, CVA/TIA, Diabetes Mellitus, Deep Vein Thrombosis (DVT), GERD/Reflux, Hyperlipidemia, Hypertension, Neurologic Disorder, Osteoarthritis (OA), Pneumonia, Pulmonary Em bolus (PE), presenting to the ER today for chief complaint of "abnormal labs". Patient states that he went to his physician for routine labs this morning (pt states he had no complaints) and was told around 430PM to come to ther ER. Patient states he feels "fine". denies complaints, but openly admits he has been noncompliant with medications including his insulin. Pt states he does have kidney disease, but refuses dialysis. Pt states "i wont do that". Pt denies additional complaints, patient denies any recent fever, chills, shortness of breath, chest pain, back pain, abdominal pain, nausea or vomiting, numbness or tingling, dysuria or hematuria, constipation or diarrhea, headaches or visual changes, or any other complaints. Overall very poor historian. Workup in ED revealed an elevated potassium of 6.0, sodium 128, BUN/creatinine of 24/1.22 and blood glucose of 676; patient was treated with IV insulin and dextrose which did help bring potassium and glucose down; patient is admitted to the hospital for further monitoring and treatment 11/22/2020 Patient is seen and evaluated in room at bedside; patient reports feeling weak and exhausted; no complaining of chest pain; does complain of nausea Vital signs are reviewed temperature of 98, pulse 69, respiration 18 and blood pressure 109/71 and SpO2 of 92% on room air Lab review shows a normal CBC, hemoglobin of 13.8, INR of 4.7 which is trending down slowly; BUN/creatinine down to 17/1.05; blood glucose remains elevated at 264; HbA1c is elevated at 16.0 We will increase metformin up to 1000 mg twice a day; continue to monitor Accu- Cheks every before meals and at bedtime for further adjustment; Coumadin remains on hold and will start once INR is less than 2.5; nephrology has evaluated patient and recommending to discontinue meloxicam and monitor renal function and electrolytes closely Patient has a social situation; currently resides with daughter who is refusing to take patient home and is requesting PT evaluation for possible long-term placement versus skilled rehab 11/23/2020 Patient is seen and evaluated and follow-up continues to be weak and lethargic although arousable. Patient is being followed by nephrology. Creatinine slightly worse at 1.31, sodium improved at 134 today. CBC within normal limits. Patient's INR is elevated at 3.7 and will continue to hold Coumadin. Patient's blood sugars continue to be elevated as well and will continue with sliding scale along with metformin. Patient met with rn diabetes educator and patient is noncompliant with medications and follow-up appointments states he doesn't have the money for it. Patient's current hemoglobin A1c is 16.0. Will have physical therapy evaluate the patient with the possibility of rehab although patient in the past has refused multiple times stating he has help at home. Currently living with the daughter at home and there was mention that he is hard to take care of and family would like placement. Review of systems: Constitutional: reports of fatigue, no reports of fever, or chills Cardiovascular: No reports of chest pain or palpitations Respiratory: No reports of shortness of breath or cough GI: No reports of nausea, vomiting, or diarrhea : No reports of dysuria or retention Neurovascular: Reports generalized weakness All medications have been reviewed Objective - Vital Signs Vital signs: Vital Signs Temp 97.6 F 11/23/20 11:38 Pulse 63 11/23/20 11:38 Resp 15 11/23/20 11:38 BP 90/54 11/23/20 11:38 Pulse Ox 91 L 11/23/20 11:38 Intake & Output 11/22/20 11/23/20 11/23/20 18:59 06:59 18:59 Intake Total 720 540 Balance 720 540 Weight 123 kg Intake: Intake, IV Titration 0 Amount Sodium Chloride 0.9% 1, 0 000 ml @ 75 mls/hr IV . [id number] [facility] Rx#:[id number] Oral 720 540 Other: Voiding Method Toilet # Voids 1 0 # Bowel Movements 0 - Exam Gen: This is a 65-year-old male lethargic although arousable, alert and oriented 3, well-developed, well-nourished, obese. HEENT: Head is atraumatic, normocephalic. Pupils equal, round. Sclerae is anicteric. NECK: Supple. No JVD. No lymphadenopathy. No thyromegaly. LUNGS: Diminished breath sounds bilaterally with no wheezing or rhonchi noted. No intercostal retractions. HEART: S1, S2 are present ABDOMEN: Soft. Bowel sounds are present. No masses. No tenderness. EXTREMITIES: No pedal edema. No calf tenderness. NEUROLOGICAL: Patient is lethargic although arousable , alert and oriented x3. Diffusely weak. - Labs CBC & Chem 7: 11/23/20 11:18 11/23/20 11:18 Labs: Abnormal Lab Results - Last 24 Hours (Table) 11/22/20 11/22/20 11/22/20 Range/Units 07:14 16:43 21:47 PT (9.0-12.0) sec INR (<1.2) Sodium (137-145) mmol/L Carbon Dioxide (22-30) mmol/L Creatinine (0.66-1.25) mg/dL Glucose (74-99) mg/dL POC Glucose (mg/dL) 246 H 257 H (75-99) mg/dL Hemoglobin A1c 16.0 H (4.0-6.0) % Calcium (8.4-10.2) mg/dL 11/23/20 11/23/20 11/23/20 Range/Units 07:26 11:18 11:18 PT 35.3 H (9.0-12.0) sec INR 3.7 H (<1.2) Sodium 134 L (137-145) mmol/L Carbon Dioxide 21 L (22-30) mmol/L Creatinine 1.31 H (0.66-1.25) mg/dL Glucose 297 H (74-99) mg/dL POC Glucose (mg/dL) 206 H (75-99) mg/dL Hemoglobin A1c (4.0-6.0) % Calcium 8.3 L (8.4-10.2) mg/dL 11/23/20 Range/Units 11:37 PT (9.0-12.0) sec INR (<1.2) Sodium (137-145) mmol/L Carbon Dioxide (22-30) mmol/L Creatinine (0.66-1.25) mg/dL Glucose (74-99) mg/dL POC Glucose (mg/dL) 324 H (75-99) mg/dL Hemoglobin A1c (4.0-6.0) % Calcium (8.4-10.2) mg/dL Assessment and Plan Assessment: -Critical hyperkalemia, improving, potassium this morning is 4.8 -Marked hyperglycemia without acidosis; blood glucoses in the range of 261-348 this morning; we will restart home dose of metformin and monitor Accu-Cheks every before meals and at bedtime with insulin sliding scale -Acute renal injury; slow IV fluid hydration; monitor strict ERNESTO's, daily weights, renal function and electrolytes; avoid nephrotoxins; nephrology to see patient and make further recommendations -Atrial fibrillation; rate controlled with amiodarone and metoprolol 50 mg daily; anticoagulated with Coumadin -Hypertension; metoprolol 50 mg daily -Hyperlipidemia; Lipitor 80 mg by mouth daily at bedtime -COPD; not in exacerbation; continue with home inhaler therapy in form of Symbicort 2 puffs twice a day, albuterol nebulizer treatments 4 times a day when necessary, Claritin 10 mg daily -Diabetes mellitus type 2; we will resume home dose of Glucophage 500 mg twice a day; monitor Accu-Cheks every before meals and at bedtime with insulin sliding scale -Coagulopathy secondary to Coumadin; INR at 3.7 this morning; Coumadin remains on hold; no signs of bleeding -DVT prophylaxis; SCDs/systemic anticoagulation -No code Plan: Continue with current medications and continue to monitor Accu-Cheks. staff educator consulted and discussed with the patient about diabetes management and tight glycemic control and patient states he is unable to afford his medications. Coumadin continues to be on hold and INR is 3.7 and will repeat a.m. labs. Creatinine slightly worse at 1.31 and will repeat and continue with IV hydration. Will also have PT/OT evaluate the patient as he continues to be weak and family would like him to be placed at rehab. Patient has had multiple hospitalizations and continues to refuse rehab upon discharge.
[2020-11-23 17:16] LABS: Glucose,Whole Blood 306 mg/dL (75-99)
[2020-11-23] MEDS: glipiZIDE 10 MG TAB PO SCH (17:39)
[2020-11-23] MEDS: ATORVASTATIN 80 MG TAB PO SCH (19:51)
[2020-11-23] MEDS: LORATADINE 10 MG TAB PO SCH (19:51)
[2020-11-23] MEDS: NORTRIPTYLINE 25 MG CAP PO SCH (19:51)
[2020-11-23] MEDS: DOCUSATE 100 MG CAP PO SCH (19:52)
[2020-11-23 20:01] LABS: Glucose,Whole Blood 245 mg/dL (75-99)
[2020-11-24] MEDS: SODIUM CHLORIDE 0.9% 1,000 ML IV SCH ×2 (04:37→17:24)
[2020-11-24 07:20] LABS: Glucose,Whole Blood 182 mg/dL (75-99)
[2020-11-24] MEDS: INSULIN ASPART (NovoLOG) 100 UNIT/ML VIAL SQ SCH ×4 (08:03→21:34)
[2020-11-24] MEDS: ASPIRIN 81 MG PO SCH (08:04)
[2020-11-24] MEDS: MULTIVITAMINS, THERA 1 EACH TAB PO SCH (08:04)
[2020-11-24] MEDS: PREGABALIN 100 MG CAP PO SCH ×2 (08:04→21:33)
[2020-11-24] MEDS: AMIODARONE 200 MG TAB PO SCH (08:04)
[2020-11-24] MEDS: PANTOPRAZOLE 40 MG TABLET PO SCH (08:04)
[2020-11-24] MEDS: glipiZIDE 10 MG TAB PO SCH ×2 (08:04→17:23)
[2020-11-24] MEDS: TOPIRAMATE 25 MG TAB PO SCH ×2 (08:04→21:34)
[2020-11-24] MEDS: METOPROLOL SUCCINATE (ER) 50 MG TAB.ER.24H PO SCH (08:04)
[2020-11-24] MEDS: oxyCODONE-APAP 10-325MG 1 EACH TAB PO PRN ×2 (08:10→22:01)
[2020-11-24 09:33] LABS: INR 2.4 (<1.2); Prothrombin Time 23.4 sec (9.0-12.0)
[2020-11-24 10:01] LABS: African American GFR (CKD) 72 (>60 ml/min/1.73 sqM); Anion Gap 7 mmol/L; Blood Urea Nitrogen 18 mg/dL (9-20); Calcium 8.7 mg/dL (8.4-10.2); Carbon Dioxide 25 mmol/L (22-30); Chloride 105 mmol/L (98-107); Glucose 252 mg/dL (74-99); Non-African American GFR(CKD) 62 (>60 ml/min/1.73 sqM); Sodium 137 mmol/L (137-145)
[2020-11-24 11:45] LABS: Glucose,Whole Blood 297 mg/dL (75-99)
--- NOTE | 2020-11-24 16:13 | P.PN ---
Subjective Progress Note Date: 11/24/20 Acute renal injury Critical hyperkalemia Hyperglycemia without acidosis 65-year-old male with history of Atrial Fibrillation, Asthma, COPD, CVA/TIA, Diabetes Mellitus, Deep Vein Thrombosis (DVT), GERD/Reflux, Hyperlipidemia, Hypertension, Neurologic Disorder, Osteoarthritis (OA), Pneumonia, Pulmonary Em bolus (PE), presenting to the ER today for chief complaint of "abnormal labs". Patient states that he went to his physician for routine labs this morning (pt states he had no complaints) and was told around 430PM to come to ther ER. Patient states he feels "fine". denies complaints, but openly admits he has been noncompliant with medications including his insulin. Pt states he does have kidney disease, but refuses dialysis. Pt states "i wont do that". Pt denies additional complaints, patient denies any recent fever, chills, shortness of breath, chest pain, back pain, abdominal pain, nausea or vomiting, numbness or tingling, dysuria or hematuria, constipation or diarrhea, headaches or visual changes, or any other complaints. Overall very poor historian. Workup in ED revealed an elevated potassium of 6.0, sodium 128, BUN/creatinine of 24/1.22 and blood glucose of 676; patient was treated with IV insulin and dextrose which did help bring potassium and glucose down; patient is admitted to the hospital for further monitoring and treatment 11/22/2020 Patient is seen and evaluated in room at bedside; patient reports feeling weak and exhausted; no complaining of chest pain; does complain of nausea Vital signs are reviewed temperature of 98, pulse 69, respiration 18 and blood pressure 109/71 and SpO2 of 92% on room air Lab review shows a normal CBC, hemoglobin of 13.8, INR of 4.7 which is trending down slowly; BUN/creatinine down to 17/1.05; blood glucose remains elevated at 264; HbA1c is elevated at 16.0 We will increase metformin up to 1000 mg twice a day; continue to monitor Accu- Cheks every before meals and at bedtime for further adjustment; Coumadin remains on hold and will start once INR is less than 2.5; nephrology has evaluated patient and recommending to discontinue meloxicam and monitor renal function and electrolytes closely Patient has a social situation; currently resides with daughter who is refusing to take patient home and is requesting PT evaluation for possible long-term placement versus skilled rehab 11/23/2020 Patient is seen and evaluated and follow-up continues to be weak and lethargic although arousable. Patient is being followed by nephrology. Creatinine slightly worse at 1.31, sodium improved at 134 today. CBC within normal limits. Patient's INR is elevated at 3.7 and will continue to hold Coumadin. Patient's blood sugars continue to be elevated as well and will continue with sliding scale along with metformin. Patient met with certified diabetes educator and patient is noncompliant with medications and follow-up appointments states he doesn't have the money for it. Patient's current hemoglobin A1c is 16.0. Will have physical therapy evaluate the patient with the possibility of rehab although patient in the past has refused multiple times stating he has help at home. Currently living with the daughter at home and there was mention that he is hard to take care of and family would like placement. 11/24/2020 Patient is seen in follow-up awake alert and oriented 3 with no acute issues noted. Patient was scheduled to be discharged today as he was refusing rehab and had a long discussion with his daughter and is now agreeable to go to [facility] and social work is following and have submitted auth and awaiting for authorization from insurance. Creatinine slightly improved at 1.24, sodium is 137 and potassium is 5.0. INR also improved at 2.4 and will resume Coumadin tomorrow with close outpatient monitoring. Will reorder metformin and continue sliding scale along with glipizide. Patient is noncompliant with medications and monitoring blood sugars and will need to discuss this with primary care provider as he states he is unable to pay for these medications and that is the reason why he does not take them. Review of systems: Constitutional: reports of fatigue, no reports of fever, or chills Cardiovascular: No reports of chest pain or palpitations Respiratory: No reports of shortness of breath or cough GI: No reports of nausea, vomiting, or diarrhea : No reports of dysuria or retention Neurovascular: Reports generalized weakness All medications have been reviewed Objective - Vital Signs Vital signs: Vital Signs Temp 98.1 F 11/24/20 11:50 Pulse 69 11/24/20 11:50 Resp 19 11/24/20 11:50 BP 121/72 11/24/20 11:50 Pulse Ox 94 L 11/24/20 11:50 Intake & Output 11/23/20 11/24/20 11/24/20 18:59 06:59 18:59 Intake Total 900 540 240 Balance 900 540 240 Weight 122 kg Intake: Intake, IV Titration 900 Amount Sodium Chloride 0.9% 1, 900 000 ml @ 75 mls/hr IV . [id number] [facility] OF [facility] Rx#:[id number] Oral 540 240 Other: Voiding Method Toilet # Voids 0 # Bowel Movements 0 - Exam Gen: This is a 65-year-old male awake sitting up in his wheelchair, alert and oriented 3, well-developed, well-nourished, obese. HEENT: Head is atraumatic, normocephalic. Pupils equal, round. Sclerae is anicteric. NECK: Supple. No JVD. No lymphadenopathy. No thyromegaly. LUNGS: Diminished breath sounds bilaterally with no wheezing or rhonchi noted. No intercostal retractions. HEART: S1, S2 are present ABDOMEN: Soft. Bowel sounds are present. No masses. No tenderness. EXTREMITIES: No pedal edema. No calf tenderness. NEUROLOGICAL: Patient is lethargic although arousable , alert and oriented x3. Diffusely weak. - Labs CBC & Chem 7: 11/23/20 11:18 11/24/20 08:54 Labs: Abnormal Lab Results - Last 24 Hours (Table) 11/23/20 11/23/20 11/24/20 Range/Units 17:13 20:00 07:15 PT (9.0-12.0) sec INR (<1.2) Glucose (74-99) mg/dL POC Glucose (mg/dL) 306 H 245 H 182 H (75-99) mg/dL 11/24/20 11/24/20 11/24/20 Range/Units 08:54 08:54 11:42 PT 23.4 H (9.0-12.0) sec INR 2.4 H (<1.2) Glucose 252 H (74-99) mg/dL POC Glucose (mg/dL) 297 H (75-99) mg/dL Assessment and Plan Assessment: -Critical hyperkalemia, improving, potassium this morning is 5 -Marked hyperglycemia without acidosis; blood glucoses in the range of 261-348 this morning; we will restart home dose of metformin and added glipizide monitor Accu-Cheks every before meals and at bedtime with insulin sliding scale -Acute renal injury; slow IV fluid hydration; monitor strict ERNESTO's, daily weights, renal function and electrolytes; avoid nephrotoxins; nephrology to see patient and make further recommendations -Atrial fibrillation; rate controlled with amiodarone and metoprolol 50 mg daily; anticoagulated with Coumadin -Hypertension; metoprolol 50 mg daily -Hyperlipidemia; Lipitor 80 mg by mouth daily at bedtime -COPD; not in exacerbation; continue with home inhaler therapy in form of Symbicort 2 puffs twice a day, albuterol nebulizer treatments 4 times a day when necessary, Claritin 10 mg daily -Diabetes mellitus type 2; we will resume home dose of Glucophage 500 mg twice a day; monitor Accu-Cheks every before meals and at bedtime with insulin sliding scale -Coagulopathy secondary to Coumadin; INR at 2.6 this morning; Coumadin remains on hold and will resume in the morning -DVT prophylaxis; SCDs/systemic anticoagulation -No code Plan: Continue with current medications and continue to monitor Accu-Cheks. clinical educator consulted and discussed with the patient about diabetes management and tight glycemic control and patient states he is unable to afford his medications. Coumadin continues to be on hold and INR is 2.6 and will resume Coumadin tomorrow. Creatinine Gam[place] trending down at 1.24 and continue with IV hydration. Will also have PT/OT evaluate the patient as he continues to be weak and family would like him to be placed at rehab. Patient has had multiple hospitalizations and continues to refuse rehab upon discharge. Reevaluated the patient after he spoke at length with his daughter and is now agreeable to rehab and awaiting for authorization from insurance for [facility]. Possible discharge in 24 hours.
[2020-11-24] MEDS: metFORMIN 500 MG TAB PO SCH (17:24)
[2020-11-24 17:27] LABS: Glucose,Whole Blood 365 mg/dL (75-99)
[2020-11-24 20:04] VITALS: RESP 16
[2020-11-24 21:15] LABS: Glucose,Whole Blood 230 mg/dL (75-99)
[2020-11-24] MEDS: DOCUSATE 100 MG CAP PO SCH (21:33)
[2020-11-24] MEDS: LORATADINE 10 MG TAB PO SCH (21:33)
[2020-11-24] MEDS: ATORVASTATIN 80 MG TAB PO SCH (21:33)
[2020-11-24] MEDS: NORTRIPTYLINE 25 MG CAP PO SCH (21:34)
[2020-11-25 07:08] LABS: Glucose,Whole Blood 169 mg/dL (75-99)
[2020-11-25] MEDS: MULTIVITAMINS, THERA 1 EACH TAB PO SCH (08:03)
[2020-11-25] MEDS: metFORMIN 500 MG TAB PO SCH (08:03)
[2020-11-25] MEDS: PANTOPRAZOLE 40 MG TABLET PO SCH (08:03)
[2020-11-25] MEDS: INSULIN ASPART (NovoLOG) 100 UNIT/ML VIAL SQ SCH ×2 (08:03→13:27)
[2020-11-25] MEDS: ASPIRIN 81 MG PO SCH (08:03)
[2020-11-25] MEDS: METOPROLOL SUCCINATE (ER) 50 MG TAB.ER.24H PO SCH (08:04)
[2020-11-25] MEDS: AMIODARONE 200 MG TAB PO SCH (08:04)
[2020-11-25] MEDS: PREGABALIN 100 MG CAP PO SCH (08:04)
[2020-11-25] MEDS: glipiZIDE 10 MG TAB PO SCH (08:04)
[2020-11-25] MEDS: TOPIRAMATE 25 MG TAB PO SCH (08:05)
[2020-11-25] MEDS: oxyCODONE-APAP 10-325MG 1 EACH TAB PO PRN (08:10)
[2020-11-25] MEDS: SODIUM CHLORIDE 0.9% 1,000 ML IV SCH (08:12)
[2020-11-25 10:35] LABS: Anion Gap 7 mmol/L; Blood Urea Nitrogen 18 mg/dL (9-20); Carbon Dioxide 23 mmol/L (22-30); Chloride 107 mmol/L (98-107); Glucose 294 mg/dL (74-99); Potassium 4.5 mmol/L (3.5-5.1); Sodium 137 mmol/L (137-145)
[2020-11-25 10:36] LABS: African American GFR (CKD) 74 (>60 ml/min/1.73 sqM); Calcium 8.7 mg/dL (8.4-10.2); Non-African American GFR(CKD) 64 (>60 ml/min/1.73 sqM)
[2020-11-25 10:50] LABS: INR 1.8 (<1.2); Prothrombin Time 17.5 sec (9.0-12.0)
[2020-11-25 11:42] VITALS: BP 101/65; PULSE 65; TEMP 98.3
[2020-11-25 12:09] LABS: Glucose,Whole Blood 261 mg/dL (75-99)
--- NOTE | 2020-11-25 15:45 | PN ---
PROGRESS NOTE The patient is seen for followup for acute kidney injury. Renal function improved with creatinine now at 1.2 or so. The patient denies any significant complaints. He also had hyponatremia on admission, which is now resolved and sodium is at 137. It was 128 on initial admission. The patient is currently maintained on saline at about 75 mL an hour. He is tolerating oral intake. PHYSICAL EXAMINATION: On examination today, blood pressure was 101/65, heart rate 65 per minute. He is afebrile. EXAMINATION OF THE HEART: S1, S2. EXAMINATION OF THE LUNGS: Bilateral breath sounds are heard. Abdomen is soft, nontender. Examination of lower extremity shows no significant edema. ROADMASTER exam grossly intact. LABS: Labs show sodium 137, potassium 4.5, chloride 107, BUN 18, creatinine 1.2. ASSESSMENT: 1. Hypovolemic hyponatremia, improved with IV fluids. 2. Chronic kidney disease stage 3 renal function not far from baseline secondary to nephrosclerosis. 3. Hyperkalemia on initial admission with potassium of 6, now improved, mostly associated with severe hyperglycemia. 4. Atrial fibrillation which is chronic, maintained on anticoagulation. 5. Chronic obstructive pulmonary disease with exacerbation, now improved. PLAN: Maintain patient off NSAIDs and Mariano-2 inhibitors. The patient was on Celebrex at home, which was discontinued. He is stable for discharge. Monitor labs as outpatient periodically. Control blood sugars. Okay to use Glucophage. MMODL / IJN: [id number] /
[2020-11-25] MEDS ORDERED: WARFARIN 3 MG TAB PO SCH (18:00)
--- NOTE | 2020-11-26 12:11 | P.DS ---
Providers Date of admission: 11/20/20 21:19 Expected date of discharge: 11/25/20 Attending physician: Memo Brewer MD Consults: 11/21/20 14:23 Consult Physician Routine Consulting Provider: Pb Valenzuela Consult Reason/Comments: hyperkalemia Do you want consulting provider notified?: Yes Primary care physician: Kristin Emery Hospital Course: Final diagnosis Critical hyperkalemia Marked hyperglycemia without acidosis Diabetes mellitus2, uncontrolled with hyperglycemia and noncompliance of medications Acute kidney injury Atrial fibrillation currently rate controlled Hypertension Hyperlipidemia COPD not in acute exacerbation Coagulopathy secondary to Coumadin DVT prophylaxis No code Discharge disposition Patient is being discharged in a stable condition with guarded prognosis to home. Patient will have home care in the outpatient setting. Patient will follow-up with Dr. Emery in the outpatient setting upon discharge. Patient is to continue with metformin and glipizide and insulin although unsure if patient will continue with insulin as he is unable to afford the medications. Total time taken is greater than 35 minutes. Hospital course Acute renal injury Critical hyperkalemia Hyperglycemia without acidosis 65-year-old male with history of Atrial Fibrillation, Asthma, COPD, CVA/TIA, Diabetes Mellitus, Deep Vein Thrombosis (DVT), GERD/Reflux, Hyperlipidemia, Hypertension, Neurologic Disorder, Osteoarthritis (OA), Pneumonia, Pulmonary Embolus (PE), presenting to the ER today for chief complaint of "abnormal labs". Patient states that he went to his physician for routine labs this morning (pt states he had no complaints) and was told around 430PM to come to ther ER. Patient states he feels "fine". denies complaints, but openly admits he has been noncompliant with medications including his insulin. Pt states he does have kidney disease, but refuses dialysis. Pt states "i wont do that". Pt denies additional complaints, patient denies any recent fever, chills, shortness of breath, chest pain, back pain, abdominal pain, nausea or vomiting, numbness or tingling, dysuria or hematuria, constipation or diarrhea, headaches or visual ch anges, or any other complaints. Overall very poor historian. Workup in ED revealed an elevated potassium of 6.0, sodium 128, BUN/creatinine of 24/1.22 and blood glucose of 676; patient was treated with IV insulin and dextrose which did help bring potassium and glucose down; patient is admitted to the hospital for further monitoring and treatment 11/25/2020 Patient was seen and evaluated and follow-up this morning with no acute overnight issues. [id number] review was attempted for patient to go to rehab for some strength and mobility although was denied stating he is moderately independent and will not qualify for rehab services. Social work was following and discussed with daughter who he will be returning home with. Patient's prosthesis of the lower extremity is currently at his soon-to-be ex- and daughter is working on getting this back to help patient with performing his ADLs. Patient's sugars continued to be uncontrolled and was started on metformin along with glipizide and insulin sliding scale although patient is unable to afford medications and is noncompliant secondary to this. Patient did meet with clinical trial educator and was educated on diabetes management. Patient instructed to follow-up with primary care provider Dr. Emery to discuss further medication treatments. Patient also to continue with his Coumadin and follow up on repeat labs to monitor INR closely along with kidney functions. Currently no reports of chest pain, shortness of breath, or palpitations. Patient is afebrile. No reports of nausea or vomiting and patient is tolerating diet. Patient will be discharged home today with daughter. On exam vital signs are stable. Cardio S1, S2 are muffled. Respiratory system shows diminished breath sounds at the bases with no wheezing or rhonchi noted. Abdomen is soft and obese, and nontender. Nervous system shows diffuse weakness. Please refer to medication reconciliation sheet for a list of medications. Patient Condition at Discharge: Stable Plan - Discharge Summary Discharge Rx Participant: No New Discharge Prescriptions: New INSULIN LISPRO (HumaLOG) [humaLOG] 10 unit SQ ACHS #5 vial metFORMIN HCL 1,000 mg PO BID 30 Days #60 tab glipiZIDE [Glucotrol] 10 mg PO AC-BID 30 Days #60 tablet Continue Atorvastatin [Lipitor] 80 mg PO HS Topiramate [Topamax] 25 mg PO BID Omeprazole [PriLOSEC] 20 mg PO BID Nortriptyline [Pamelor] 50 mg PO HS Aspirin 81 mg PO DAILY 30 Days #30 chew Loratadine 10 mg PO HS Metoprolol Succinate (ER) [Toprol XL] 50 mg PO DAILY Amiodarone [Cordarone] 200 mg PO DAILY tab Docusate [Colace] 100 mg PO HS Tiotropium [place] [Spiriva Respimat] 1 spray INHALATION RT-DAILY PRN PRN Reason: Shortness Of Breath Pregabalin [Lyrica] 200 mg PO BID Warfarin [Coumadin] 3 mg PO DAILY #0 Budesonide/Formoterol Fumarate [Symbicort 160-4.5 Mcg Inhaler] 2 puff INHALATION RT-BID PRN PRN Reason: Shortness Of Breath Albuterol Nebulized [Ventolin Nebulized] 2.5 mg INHALATION RT-QID PRN PRN Reason: Shortness Of Breath Multivitamins, Thera [Multivitamin (formulary)] 1 tab PO DAILY oxyCODONE-APAP 10-325MG [Percocet 10-325 mg] 1 tab PO TID PRN PRN Reason: Pain Discontinued Celecoxib [CeleBREX] 200 mg PO DAILY metFORMIN HCL [Glucophage] 500 mg PO BID Discharge Medication List Atorvastatin [Lipitor] 80 mg PO HS 01/09/14 [History] Topiramate [Topamax] 25 mg PO BID 01/09/14 [History] Nortriptyline [Pamelor] 50 mg PO HS 08/15/19 [History] Omeprazole [PriLOSEC] 20 mg PO BID 08/15/19 [History] Aspirin 81 mg PO DAILY 30 Days #30 chew 08/26/19 [Rx] Loratadine 10 mg PO HS 10/30/19 [History] Metoprolol Succinate (ER) [Toprol XL] 50 mg PO DAILY 02/29/20 [History] Amiodarone [Cordarone] 200 mg PO DAILY tab 03/07/20 [Rx] Docusate [Colace] 100 mg PO HS 05/19/20 [History] Albuterol Nebulized [Ventolin Nebulized] 2.5 mg INHALATION RT-QID PRN 10/16/20 [History] Budesonide/Formoterol Fumarate [Symbicort 160-4.5 Mcg Inhaler] 2 puff INHALATION RT-BID PRN 10/16/20 [History] Multivitamins, Thera [Multivitamin (formulary)] 1 tab PO DAILY 10/16/20 [History] Tiotropium [place] [Spiriva Respimat] 1 spray INHALATION RT-DAILY PRN 10/16/20 [History] oxyCODONE-APAP 10-325MG [Percocet 10-325 mg] 1 tab PO TID PRN 10/16/20 [History] Pregabalin [Lyrica] 200 mg PO BID 11/21/20 [History] Warfarin [Coumadin] 3 mg PO DAILY #0 11/22/20 [Rx] INSULIN LISPRO (HumaLOG) [humaLOG] 10 unit SQ ACHS #5 vial 11/25/20 [Rx] glipiZIDE [Glucotrol] 10 mg PO AC-BID 30 Days #60 tablet 11/25/20 [Rx] metFORMIN HCL 1,000 mg PO BID 30 Days #60 tab 11/25/20 [Rx] Follow up Appointment(s)/Referral(s): Kristin Emery DO [Primary Care Provider] - 12/02/20 1:00 pm [facility], [NON-STAFF] - 1-2 Days Ambulatory/Diagnostic Orders: Basic Metabolic Panel [LAB.AMB] Time Frame: 2 Days, Location: None Selected Patient Instructions/Handouts: Glipizide (By mouth), Metformin (By mouth), Hyperkalemia (DC), Diabetic Hyperglycemia (DC) Activity/Diet/Wound Care/Special Instructions: Activity Limited until follow-up Continue consistent carb heart healthy diet, low potassium Continue current medications Follow-up with primary care provider upon discharge Discussed diabetic alternatives is hemoglobin A1c is 16 and needs insulin along with oral antidiabetic's Patient unable to afford insulins Highly recommended to continue with insulin although patient is noncompliant and unable to afford medications needs follow-up with primary care provider this week Repeat labs in 2-3 days to monitor BMP and INR Continue with Coumadin Continue with home care Discharge Disposition: HOME WITH HOME HEALTH SERVICES
== END 2020-11-25 17:09 | disposition home health service (06) | DRG 641 ==
LOC: EC 18:45 → 3SCARD 21:19 → 5NMEDONC 11-22 18:56
PROVIDERS: ADMIT Internal Medicine; ATTEND Internal Medicine
DX: E87.5 Hyperkalemia (principal); I48.20 Chronic atrial fibrillation, unspecified; J44.1 Chronic obstructive pulmonary disease with (acute) exacerbation; N17.9 Acute kidney failure, unspecified; I12.9 Hypertensive chronic kidney disease with stage 1 through stage 4 chronic kidney disease, or unspecified chronic kidney disease; E11.65 Type 2 diabetes mellitus with hyperglycemia; E66.9 Obesity, unspecified; Z68.32 Body mass index [BMI] 32.0-32.9, adult; E78.5 Hyperlipidemia, unspecified; E86.1 Hypovolemia; E87.1 Hypo-osmolality and hyponatremia; F17.210 Nicotine dependence, cigarettes, uncomplicated; Z86.711 Personal history of pulmonary embolism; Z87.01 Personal history of pneumonia (recurrent); Z79.01 Long term (current) use of anticoagulants; Z20.822 Contact with and (suspected) exposure to COVID-19; Z66 Do not resuscitate; E11.22 Type 2 diabetes mellitus with diabetic chronic kidney disease; Z86.73 Personal history of transient ischemic attack (TIA), and cerebral infarction without residual deficits; Z86.718 Personal history of other venous thrombosis and embolism; K21.9 Gastro-esophageal reflux disease without esophagitis; M19.90 Unspecified osteoarthritis, unspecified site; N18.30 Chronic kidney disease, stage 3 unspecified; R79.1 Abnormal coagulation profile; T45.515A Adverse effect of anticoagulants, initial encounter; T38.3X6A Underdosing of insulin and oral hypoglycemic [antidiabetic] drugs, initial encounter; Z91.120 Patient's intentional underdosing of medication regimen due to financial hardship; Z79.1 Long term (current) use of non-steroidal anti-inflammatories (NSAID); Z79.51 Long term (current) use of inhaled steroids; Z79.82 Long term (current) use of aspirin; Z79.84 Long term (current) use of oral hypoglycemic drugs; Z79.899 Other long term (current) drug therapy; Z82.49 Family history of ischemic heart disease and other diseases of the circulatory system; Z83.3 Family history of diabetes mellitus; Z89.512 Acquired absence of left leg below knee; Z90.89 Acquired absence of other organs; Z95.828 Presence of other vascular implants and grafts; Z88.6 Allergy status to analgesic agent; Z88.8 Allergy status to other drugs, medicaments and biological substances; Z90.49 Acquired absence of other specified parts of digestive tract; Z98.890 Other specified postprocedural states
CPT/HCPCS: 36415; 71046; 80048; 80053; 81003; 82009; 83036; 83735; 84132; 85025; 85610; 85730; 87635; 93005; 94640; 96374; 99285

== ENCOUNTER 2020-12-21 16:04 | Inpatient (IN) | payer MEDICARE ==
[2020-12-21] MEDS ORDERED: ONDANSETRON 4 MG/2 ML VIAL IVP STA (17:12)
[2020-12-21] MEDS ORDERED: MORPHINE SULFATE 4 MG/ML SYRINGE IVP STA (17:12)
--- NOTE | 2020-12-21 17:21 | ED ---
General Adult HPI - General Chief complaint: Urogenital Stated complaint: scrotum swelling/pain Time Seen by Provider: 12/21/20 16:57 Source: patient Mode of arrival: ambulatory Limitations: no limitations - History of Present Illness Initial comments: 65 year-old male patient presents to the emergency department for evaluation of "blood clot" and pain to his scrotum. Patient states that he started to have pain and swelling to the scrotum over night. States that his daughter looked at the area and stated there was a "blood clot" on the left side. Patient also has a wound to the right buttock that he is having treated by a home care nurse. Patient states there is a lot of pain with movement. Denies taking anything for his pain. Denies any injuries to the scrotum. Patient is wheelchair bound, has left above the knee amputation. Has history of diabetes and multiple other medical problems. Patient does report difficulty starting urine stream that has been going on for the last several weeks, states he is being evaluated by the perfusionist. Patient denies any recent rash, fever, chills, cough, shortness of breath, chest pain, abdominal pain, nausea, vomiting, diarrhea, constipation, back pain, numbness, tingling, dizziness, weakness, headache, visual changes, or any other complaints. - Related Data Home Medications Medication Instructions Recorded Confirmed Atorvastatin [Lipitor] 80 mg PO HS 01/09/14 12/21/20 Topiramate [Topamax] 25 mg PO BID 01/09/14 12/21/20 Nortriptyline [Pamelor] 50 mg PO HS 08/15/19 12/21/20 Omeprazole [PriLOSEC] 20 mg PO BID 08/15/19 12/21/20 Loratadine 10 mg PO HS 10/30/19 12/21/20 Metoprolol Succinate (ER) [Toprol 50 mg PO DAILY 02/29/20 12/21/20 XL] Docusate [Colace] 100 mg PO HS 05/19/20 12/21/20 Albuterol Nebulized [Ventolin 2.5 mg INHALATION RT-QID PRN 10/16/20 12/21/20 Nebulized] Budesonide/Formoterol Fumarate 2 puff INHALATION RT-BID PRN 10/16/20 12/21/20 [Symbicort 160-4.5 Mcg Inhaler] Multivitamins, Thera [Multivitamin 1 tab PO DAILY 10/16/20 12/21/20 (formulary)] Tiotropium [place] [Spiriva 1 spray INHALATION RT-DAILY PRN 10/16/20 12/21/20 Respimat] oxyCODONE-APAP 10-325MG [Percocet 1 tab PO Q6H PRN 10/16/20 12/21/20 10-325 mg] Pregabalin [Lyrica] 200 mg PO BID 11/21/20 12/21/20 Warfarin Sodium 6 mg PO SUTH 12/21/20 12/21/20 Warfarin [Coumadin] 3 mg PO [id number] 12/21/20 12/21/20 Previous Rx's Medication Instructions Recorded Aspirin 81 mg PO DAILY 30 Days #30 chew 08/26/19 Amiodarone [Cordarone] 200 mg PO DAILY tab 03/07/20 glipiZIDE [Glucotrol] 10 mg PO AC-BID 30 Days #60 tablet 11/25/20 metFORMIN HCL 1,000 mg PO BID 30 Days #60 tab 11/25/20 Allergies Allergy/AdvReac Type Severity Reaction Status Date / Time baclofen Allergy Unknown Verified 12/21/20 16:06 Review of Systems ROS Statement: Those systems with pertinent positive or pertinent negative responses have been documented in the HPI. ROS Other: All systems not noted in ROS Statement are negative. Past Medical History Past Medical History: Atrial Fibrillation, Asthma, COPD, CVA/TIA, Diabetes Mellitus, Deep Vein Thrombosis (DVT), GERD/Reflux, Hyperlipidemia, Hypertension, Neurologic Disorder, Osteoarthritis (OA), Pneumonia, Pulmonary Embolus (PE) Additional Past Medical History / Comment(s): MIGRAINES. " ANITICOAGULANT LUPUS". PNEUMOTHRORAX. PERIPHERAL EDEMA. Per cardiology patient has a hx of proximal afib History of Any Multi-Drug Resistant Organisms: MRSA Date of last positivie culture/infection: 02/28/20 MDRO Source:: MRSA FOOT Past Surgical History: Adenoidectomy, Appendectomy, Tonsillectomy Additional Past Surgical History / Comment(s): HAILE FILTER . VEIN STRIPPING. STENTS IN "PELVIC AREA" NOVEMBER 2004., left BKA Past Anesthesia/Blood Transfusion Reactions: No Reported Reaction Past Psychological History: No Psychological Hx Reported Smoking Status: Current every day smoker Past Alcohol Use History: None Reported Past Drug Use History: None Reported - Past Family History Mother Family Medical History: Coronary Artery Disease (CAD), Myocardial Infarction (NC), Vascular Disorder Additional Family Medical History / Comment(s): heart disease, peripheral vascular disease. Father Family Medical History: Diabetes Mellitus, Renal Disease General Exam Limitations: no limitations General appearance: alert, in no apparent distress, other (This is a well-devel oped, well-nourished adult male patient in no acute distress. Vital signs upon presentation temperature 98.1F, pulse 96, respirations 20, blood pressure 101/69, pulse ox 92% on room air.) Eye exam: Present: normal appearance, PERRL, EOMI. Absent: scleral icterus, conjunctival injection, periorbital swelling ENT exam: Present: normal exam, normal oropharynx, mucous membranes moist Respiratory exam: Present: normal lung sounds bilaterally. Absent: respiratory distress, wheezes, rales, rhonchi, stridor Cardiovascular Exam: Present: regular rate, normal rhythm, normal heart sounds. Absent: systolic murmur, diastolic murmur, rubs, gallop, clicks GI/Abdominal exam: Present: soft, normal bowel sounds. Absent: distended, tenderness, guarding, rebound, rigid exam: Present: testicular tenderness, other (superficial wounds noted to the posterior scrotum. There are 2-3 small areas of dark purple discoloration. Some purulent drainage noted. ) Extremities exam: Present: other (absent left leg) Neurological exam: Present: alert, oriented X3, CN II-XII intact Psychiatric exam: Present: normal affect, normal mood Skin exam: Present: warm, dry, intact, normal color, other (Right buttock pressure ulcer, stage II. No surrounding erythema. Yellow drainage noted to dressing. ). Absent: rash Course Vital Signs 12/21/20 12/21/20 12/21/20 16:07 18:42 18:51 Temperature 98.1 F 99.1 F Pulse Rate 96 70 Respiratory 20 18 Rate Blood Pressure 101/69 97/45 O2 Sat by Pulse 92 L 87 L 94 L Oximetry 12/21/20 12/21/20 21:03 23:00 Temperature Pulse Rate 94 70 Respiratory 18 18 Rate Blood Pressure 100/76 84/50 O2 Sat by Pulse 98 97 Oximetry Medical Decision Making - Medical Decision Making 65-year-old male patient presented to the emergency department today for evaluation of pain and swelling to the scrotum. Also reported skin changes. Physical examination did reveal a few areas of ecchymosis to the posterior scrotum as well as superficial wounds with purulent drainage. He also had a wound to the right buttock, stage II pressure ulcer with yellow drainage noted on the dressing. Patient's oxygen saturation was decreased while here. Does report a cough and sputum production. We did do a chest x-ray which showed evidence for pneumonia. Did ultrasound the scrotum showed no evidence for abscess. Given elevation in white blood cell CT of the pelvis to air in the this showed evidence for scrotal cellulitis but no evidence for air in the soft tissue. Patient was started on azithromycin and Unasyn. He'll be admitted to the hospital for further evaluation and monitoring of scrotal cellulitis and pneumonia. Patient is agreeable this plan. Case discussed my attending Dr. Veras. - Lab Data Result diagrams: 12/21/20 17:55 12/21/20 17:55 Lab Results 12/21/20 12/21/20 12/21/20 Range/Units 17:55 17:55 17:55 WBC 11.1 H (3.8-10.6) k/uL RBC 4.18 L (4.30-5.90) m/uL Hgb 12.4 L (13.0-17.5) gm/dL Hct 39.3 (39.0-53.0) % MCV 94.0 (80.0-100.0) fL MCH 29.6 (25.0-35.0) pg MCHC 31.4 (31.0-37.0) g/dL RDW 15.5 (11.5-15.5) % Plt Count 290 (150-450) k/uL MPV 8.4 Neutrophils % 81 % Lymphocytes % 11 % Monocytes % 5 % Eosinophils % 2 % Basophils % 0 % Neutrophils # 9.0 H (1.3-7.7) k/uL Lymphocytes # 1.2 (1.0-4.8) k/uL Monocytes # 0.5 (0-1.0) k/uL Eosinophils # 0.2 (0-0.7) k/uL Basophils # 0.0 (0-0.2) k/uL PT 52.2 H (9.0-12.0) sec INR 5.4 H* (<1.2) APTT 49.1 H (22.0-30.0) sec Sodium 135 L (137-145) mmol/L Potassium 4.6 (3.5-5.1) mmol/L Chloride 106 (98-107) mmol/L Carbon Dioxide 20 L (22-30) mmol/L Anion Gap 9 mmol/L BUN 20 (9-20) mg/dL Creatinine 1.24 (0.66-1.25) mg/dL Est GFR (CKD-EPI)AfAm 72 (>60 ml/min/1.73 sqM) Est GFR (CKD-EPI)NonAf 62 (>60 ml/min/1.73 sqM) Glucose 226 H (74-99) mg/dL Lactic Ac Sepsis Rflx Plasma Lactic Acid Dennis (0.7-2.0) mmol/L Calcium 8.5 (8.4-10.2) mg/dL Total Bilirubin 0.4 (0.2-1.3) mg/dL AST 28 (17-59) U/L ALT 15 (4-49) U/L Alkaline Phosphatase 102 (38-126) U/L Total Protein 6.2 L (6.3-8.2) g/dL Albumin 3.2 L (3.5-5.0) g/dL 12/21/20 12/21/20 Range/Units 17:55 18:32 WBC (3.8-10.6) k/uL RBC (4.30-5.90) m/uL Hgb (13.0-17.5) gm/dL Hct (39.0-53.0) % MCV (80.0-100.0) fL MCH (25.0-35.0) pg MCHC (31.0-37.0) g/dL RDW (11.5-15.5) % Plt Count (150-450) k/uL MPV Neutrophils % % Lymphocytes % % Monocytes % % Eosinophils % % Basophils % % Neutrophils # (1.3-7.7) k/uL Lymphocytes # (1.0-4.8) k/uL Monocytes # (0-1.0) k/uL Eosinophils # (0-0.7) k/uL Basophils # (0-0.2) k/uL PT (9.0-12.0) sec INR (<1.2) APTT (22.0-30.0) sec Sodium (137-145) mmol/L Potassium (3.5-5.1) mmol/L Chloride (98-107) mmol/L Carbon Dioxide (22-30) mmol/L Anion Gap mmol/L BUN (9-20) mg/dL Creatinine (0.66-1.25) mg/dL Est GFR (CKD-EPI)AfAm (>60 ml/min/1.73 sqM) Est GFR (CKD-EPI)NonAf (>60 ml/min/1.73 sqM) Glucose (74-99) mg/dL Lactic Ac Sepsis Rflx Y Plasma Lactic Acid Dennis 2.9 H* (0.7-2.0) mmol/L Calcium (8.4-10.2) mg/dL Total Bilirubin (0.2-1.3) mg/dL AST (17-59) U/L ALT (4-49) U/L Alkaline Phosphatase (38-126) U/L Total Protein (6.3-8.2) g/dL Albumin (3.5-5.0) g/dL - Radiology Data Radiology results: report reviewed, image reviewed Ultrasound of the scrotum was obtained. Report was reviewed in its entirety. Impression by Dr. Mendoza showed the right epididymis appears somewhat hyperechoic. Suspicious complex abscess-like areas are not identified. Minimal hydrocele may be present on the right. Two-view x-ray of the chest is obtained. Report was reviewed in its entirety. Impression by Dr. Mendoza shows posterior lung infiltrate. Correlate for pneumonia. CT pelvis with contrast was obtained. Report was reviewed in its entirety. Impression by Dr. Parker shows scrotal skin thickening that could relate to synovitis. No drainable fluid collection. No significant abnormality seen wit hin the pelvis. There is no soft tissue air noted. Disposition Clinical Impression: Cellulitis of scrotum, Pressure ulcer of right buttock, Pneumonia Disposition: ADMITTED IP TO THIS [facility] Condition: Serious Decision to Admit Reason: Admit from EC Decision Date: 12/21/20 Decision Time: 23:17
[2020-12-21 18:07] LABS: Basophils % (A) 0 %; Eosinophils # (A) 0.2 k/uL (0-0.7); Eosinophils % (A) 2 %; HCT 39.3 % (39.0-53.0); HGB 12.4 gm/dL (13.0-17.5); Lymphocytes # (A) 1.2 k/uL (1.0-4.8); Lymphocytes % (A) 11 %; MCH 29.6 pg (25.0-35.0); MCHC 31.4 g/dL (31.0-37.0); Mean Platelet Volume 8.4; Monocytes # (A) 0.5 k/uL (0-1.0); Monocytes % (A) 5 %; Neutrophils % (A) 81 %; Platelet Count 290 k/uL (150-450); RBC 4.18 m/uL (4.30-5.90); RDW 15.5 % (11.5-15.5); WBC 11.1 k/uL (3.8-10.6)
[2020-12-21 18:18] LABS: Partial Thromboplastin Time 49.1 sec (22.0-30.0); Prothrombin Time 52.2 sec (9.0-12.0)
[2020-12-21 18:19] LABS: Albumin 3.2 g/dL (3.5-5.0); Calcium 8.5 mg/dL (8.4-10.2); Potassium 4.6 mmol/L (3.5-5.1); Total Bilirubin 0.4 mg/dL (0.2-1.3); Total Protein 6.2 g/dL (6.3-8.2)
[2020-12-21] MEDS ORDERED: SODIUM CHLORIDE 0.9% 1,000 ML IV ONE (18:34)
[2020-12-21 18:40] LABS: INR 5.4 (<1.2)
--- NOTE | 2020-12-21 19:03 | US ---
EXAMINATION TYPE: US scrotum with doppler. Grayscale and color Doppler Duplex imaging performed of t janett scrotum. DATE OF EXAM: 12/21/2020 COMPARISON: US, CT CLINICAL HISTORY: Wound, r/o abscess. Wound, R/O abscess. Hx appendectomy. EXAM MEASUREMENTS: TESTICLES: Right Testicle: 3.9 x 2.9 x 2.3 cm Left Testicle: 4.5 x 3.0 x 2.4 cm -Hyperechoic area seen inferior and lateral to the right testicle measuring 3.2 x 3.6 x 1.2 cm. This area may correlate with area mentioned in US from 2010. EPIDIDYMIS HEAD: Right Epididymis: 1.0 x 1.4 x 1.1 cm Left Epididymis: 0.8 x 0.8 x 0.9 cm -Anechoic area seen within left epididymal head: 0.4 x 0.4 x 0.3 cm. Doppler performed to assess for testicular vascularity; bilateral color flow and waveforms are seen. Presence of hydroceles: Possible on right: anechoic area seen lateral to right testicle: 3.3 x 1.4 x 0.4 cm. This is adjacent to hyperechoic area mentioned above. Presence of varicoceles: Vessels are seen lateral to bilateral testicles, measure 1.8 mm (Less than 2 mm bilaterally). IMPRESSION: 1. Right epididymis appears somewhat hyperechoic. 2. Suspicious complex abscess like areas are not identified. 3. Minimal hydrocele may be present on the right.
--- NOTE | 2020-12-21 21:24 | XR ---
EXAMINATION TYPE: XR chest 2V DATE OF EXAM: 12/21/2020 COMPARISON: 11/20/2020 INDICATION: Hypoxia TECHNIQUE: Frontal and lateral views of the chest are obtained. FINDINGS: The heart size is normal. The pulmonary vasculature is normal. There is vague increased opacity through the right lung. This may be related to the left rotation. Th e posterior lower lobe infiltrate is present. Correlate for pneumonia.. IMPRESSION: 1. Posterior lung infiltrate. Correlate for pneumonia. Follow-up is recommended
[2020-12-21] MEDS ORDERED: AZITHROMYCIN 500 MG in SODIUM CHLORIDE 0.9% 250 ML IVPB STA (22:30)
[2020-12-21] MEDS ORDERED: AMPICILLIN-SULBACTAM 3 GM in SODIUM CHLORIDE 0.9% 100 ML IVPB STA (22:30)
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
[2020-12-21] MEDS ORDERED: PNEUMONIA PROTOCOL UTILIZED 1 EACH MISC PO PRN (23:14)
[2020-12-21] MEDS ORDERED: ALBUTEROL NEBULIZED 2.5 MG/3 ML INHALATION PRN (23:14)
[2020-12-22] MEDS ORDERED: MORPHINE SULFATE 4 MG/ML SYRINGE IVP STA (04:31)
[2020-12-22] MEDS: AMPICILLIN-SULBACTAM 3 GM in SODIUM CHLORIDE 0.9% 100 ML IVPB SCH ×3 (06:45→22:09)
--- NOTE | 2020-12-22 07:04 | XR ---
EXAMINATION TYPE: XR chest 1V portable DATE OF EXAM: 12/22/2020 COMPARISON: 12/21/2020 HISTORY: Pneumonia TECHNIQUE: Single frontal view of the chest is obtained. FINDINGS: Patchy airspace disease and prominence of the interstitium bilaterally appears similar to the prior e xam. Cardiac silhouette is unchanged in size. IMPRESSION: No significant change since the prior examination with patchy airspace disease and prominence of the interstitium bilaterally.
[2020-12-22] MEDS: IPRATROPIUM-ALBUTEROL 3 ML NEB INHALATION SCH ×4 (07:27→19:56)
[2020-12-22] MEDS ORDERED: ALBUTEROL NEBULIZED 2.5 MG/3 ML INHALATION PRN (10:12)
[2020-12-22] MEDS ORDERED: NON FORMULARY DRUG (Tiotropium Bromide [Spiriva Respimat] 4 GM Mist.Inhal) INHALATION PRN (10:12)
[2020-12-22] MEDS: SODIUM CHLORIDE 0.9% 1,000 ML IV SCH ×5 (11:20→22:54)
[2020-12-22] MEDS: KETOROLAC 15 MG/ML 1 ML VIAL IM SCH (12:10)
--- NOTE | 2020-12-22 12:52 | P.HPIM ---
History of Present Illness 65-year-old the male came in with complaints of a swelling and redness of the scrotum. Patient had as "a lot of sound which did not show any significant abnormality but suspicious for epididymitis. Patient has stage II ulcers in the buttock area. Patient also has an ulcer on that decision area which is covered by Silvadene does of which I cannot states that the ulcer. Patient appears to have chronic ulcers. 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 Patient does have history of atrial fibrillation on Coumadin patient is present is whether we can Coumadin. Patient carries does make one pack of cigarettes per day is wheezing on exam. Patient the was coughing without any significant sputum production. Patient is presently on Unasyn which is being continued. Review of Systems REVIEW OF SYSTEMS: CONSTITUTIONAL: No fever, no malaise, no fatigue. HEENT: No recent visual problems or hearing problems. Denied any sore throat. CARDIOVASCULAR: No chest pain, orthopnea, PND, no palpitations, no syncope. PULMONARY: No shortness of breath, no cough, no hemoptysis. GASTROINTESTINAL: No diarrhea, no nausea, no vomiting, no abdominal pain. NEUROLOGICAL: No headaches, no weakness, no numbness. HEMATOLOGICAL: Denies any bleeding or petechiae. GENITOURINARY: Denies any burning micturition, frequency, or urgency. MUSCULOSKELETAL/RHEUMATOLOGICAL: Denies any joint pain, swelling, or any muscle pain. ENDOCRINE: Denies any polyuria or polydipsia. The rest of the 14-point review of systems is negative. Past Medical History Past Medical History: Atrial Fibrillation, Asthma, COPD, CVA/TIA, Diabetes Mellitus, Deep Vein Thrombosis (DVT), GERD/Reflux, Hyperlipidemia, Hypertension, Neurologic Disorder, Osteoarthritis (OA), Pneumonia, Pulmonary Embolus (PE) Additional Past Medical History / Comment(s): MIGRAINES. " ANITICOAGULANT LUPUS". PNEUMOTHRORAX. PERIPHERAL EDEMA. Per cardiology patient has a hx of proximal afib History of Any Multi-Drug Resistant Organisms: MRSA Date of last positivie culture/infection: 02/28/20 MDRO Source:: MRSA FOOT Past Surgical History: Adenoidectomy, Appendectomy, Tonsillectomy Additional Past Surgical History / Comment(s): HAILE FILTER 1980S. VEIN STRIPPING. STENTS IN "PELVIC AREA" NOVEMBER 2004., left BKA Past Anesthesia/Blood Transfusion Reactions: No Reported Reaction Past Psychological History: No Psychological Hx Reported Smoking Status: Current every day smoker Past Alcohol Use History: None Reported Past Drug Use History: None Reported - Past Family History Mother Family Medical History: Coronary Artery Disease (CAD), Myocardial Infarction ([place]), Vascular Disorder Additional Family Medical History / Comment(s): heart disease, peripheral vascular disease. Father Family Medical History: Diabetes Mellitus, Renal Disease Medications and Allergies Home Medications Medication Instructions Recorded Confirmed Type Atorvastatin [Lipitor] 80 mg PO HS 01/09/14 12/21/20 History Topiramate [Topamax] 25 mg PO BID 01/09/14 12/21/20 History Nortriptyline [Pamelor] 50 mg PO HS 08/15/19 12/21/20 History Omeprazole [PriLOSEC] 20 mg PO BID 08/15/19 12/21/20 History Aspirin 81 mg PO DAILY 30 Days #30 chew 08/26/19 12/21/20 Rx Loratadine 10 mg PO HS 10/30/19 12/21/20 History Metoprolol Succinate (ER) [Toprol 50 mg PO DAILY 02/29/20 12/21/20 History XL] Amiodarone [Cordarone] 200 mg PO DAILY tab 03/07/20 12/21/20 Rx Docusate [Colace] 100 mg PO HS 05/19/20 12/21/20 History Albuterol Nebulized [Ventolin 2.5 mg INHALATION RT-QID PRN 10/16/20 12/21/20 History Nebulized] Budesonide/Formoterol Fumarate 2 puff INHALATION RT-BID PRN 10/16/20 12/21/20 History [Symbicort 160-4.5 Mcg Inhaler] Multivitamins, Thera [Multivitamin 1 tab PO DAILY 10/16/20 12/21/20 History (formulary)] Tiotropium [place] [Spiriva 1 spray INHALATION RT-DAILY PRN 10/16/20 12/21/20 History Respimat] oxyCODONE-APAP 10-325MG [Percocet 1 tab PO Q6H PRN 10/16/20 12/21/20 History 10-325 mg] Pregabalin [Lyrica] 200 mg PO BID 11/21/20 12/21/20 History glipiZIDE [Glucotrol] 10 mg PO AC-BID 30 Days #60 tablet 11/25/20 12/21/20 Rx metFORMIN HCL 1,000 mg PO BID 30 Days #60 tab 11/25/20 12/21/20 Rx Warfarin Sodium 6 mg PO SUTH 12/21/20 12/21/20 History Warfarin [Coumadin] 3 mg PO MOTUWEFRSA 12/21/20 12/21/20 History Allergies Allergy/AdvReac Type Severity Reaction Status Date / Time baclofen Allergy Unknown Verified 12/21/20 16:06 Physical Exam Vitals: Vital Signs Temp Pulse Resp BP Pulse Ox 12/22/20 11:14 70 12/22/20 11:02 69 12/22/20 11:00 97.2 F L 63 18 104/71 97 12/22/20 07:28 98 12/22/20 06:48 64 18 90/56 96 12/22/20 00:35 62 20 88/57 98 12/21/20 23:00 70 18 84/50 97 12/21/20 21:03 94 18 100/76 98 12/21/20 18:51 94 L 12/21/20 18:42 99.1 F 70 18 97/45 87 L 12/21/20 16:07 98.1 F 96 20 101/69 92 L Intake and Output 12/21/20 12/22/20 12/22/20 22:59 06:59 14:59 Other: Weight 122.47 kg PHYSICAL EXAMINATION: GENERAL: The patient is alert and oriented x3, not in any acute distress. Obese HEENT: Pupils are round and equally reacting to light. EOMI. No scleral icterus. No conjunctival pallor. Normocephalic, atraumatic. No pharyngeal erythema. No thyromegaly. CARDIOVASCULAR: S1 and S2 present. No murmurs, rubs, or gallops. PULMONARY: Significant expiratory wheezing ABDOMEN: Soft, nontender, nondistended, normoactive bowel sounds. No palpable organomegaly. MUSCULOSKELETAL: No joint swelling or deformity. EXTREMITIES: No cyanosis, clubbing, or pedal edema. Patient has a left above- knee amputation NEUROLOGICAL: Gross neurological examination did not reveal any focal deficits. SKIN: Scrotum is severely swollen with redness in the posterior aspect of the scrotum there multiple stage I to 2 decubitus ulcers in the sacral area. Another ulcer on the ceron which is covered . Results CBC & Chem 7: 12/21/20 17:55 12/21/20 17:55 Labs: Abnormal Lab Results - Last 24 Hours (Table) 12/21/20 12/21/20 12/21/20 Range/Units 17:55 17:55 17:55 WBC 11.1 H (3.8-10.6) k/uL RBC 4.18 L (4.30-5.90) m/uL Hgb 12.4 L (13.0-17.5) gm/dL Neutrophils # 9.0 H (1.3-7.7) k/uL PT 52.2 H (9.0-12.0) sec INR 5.4 H* (<1.2) APTT 49.1 H (22.0-30.0) sec Sodium 135 L (137-145) mmol/L Carbon Dioxide 20 L (22-30) mmol/L Glucose 226 H (74-99) mg/dL Plasma Lactic Acid Dennis (0.7-2.0) mmol/L Total Protein 6.2 L (6.3-8.2) g/dL Albumin 3.2 L (3.5-5.0) g/dL 12/21/20 Range/Units 17:55 WBC (3.8-10.6) k/uL RBC (4.30-5.90) m/uL Hgb (13.0-17.5) gm/dL Neutrophils # (1.3-7.7) k/uL PT (9.0-12.0) sec INR (<1.2) APTT (22.0-30.0) sec Sodium (137-145) mmol/L Carbon Dioxide (22-30) mmol/L Glucose (74-99) mg/dL Plasma Lactic Acid Dennis 2.9 H* (0.7-2.0) mmol/L Total Protein (6.3-8.2) g/dL Albumin (3.5-5.0) g/dL Assessment and Plan Plan: -Scrotal cellulitis: Patient is on Unasyn which will be continued infectious disease will be consulted -Multiple decubitus ulcers will need local wound care will be consulted as well. -Soap other medical are not: Coumadin will be held, repeat INR tomorrow -COPD with mild acute exacerbation patient will be started on inhaled steroids inhalational treatments patient is already in antibiotics low suspicion for pne umonia -Proximal A. fib presently rate controlled continue with was oh medications Coumadin is being held because of elevated INR. -Continued nicotine use: Counseling was provided -Hypertension -hyperlipidemia -Type 2 diabetes mellitus with unknown control elevated blood sugars patient will be started on his home regimen along with sliding scale insulin titration depending on his blood sugars
[2020-12-22 14:53] LABS: Glucose,Whole Blood 120 mg/dL (75-99)
[2020-12-22] MEDS: INSULIN ASPART (NovoLOG) 100 UNIT/ML VIAL SQ SCH ×3 (14:55→21:40)
[2020-12-22] MEDS ORDERED: KETOROLAC 15 MG/ML 1 ML VIAL IM PRN (18:27)
[2020-12-22] MEDS: oxyCODONE-APAP 10-325MG 1 EACH TAB PO PRN (18:49)
[2020-12-22 18:50] LABS: Glucose,Whole Blood 106 mg/dL (75-99)
[2020-12-22] MEDS: glipiZIDE 10 MG TAB PO SCH (18:50)
[2020-12-22] MEDS ORDERED: PREGABALIN 100 MG CAP PO SCH ×2 (21:00→22:45)
[2020-12-22] MEDS: TOPIRAMATE 25 MG TAB PO SCH (22:09)
[2020-12-22] MEDS: LORATADINE 10 MG TAB PO SCH (22:09)
[2020-12-22] MEDS: PANTOPRAZOLE 40 MG TABLET PO SCH (22:09)
[2020-12-22] MEDS: NORTRIPTYLINE 25 MG CAP PO SCH (22:09)
[2020-12-22] MEDS: ATORVASTATIN 80 MG TAB PO SCH (22:09)
[2020-12-22] MEDS: DOCUSATE 100 MG CAP PO SCH (22:09)
[2020-12-22] MEDS ORDERED: HYDROmorphone 0.5 MG/0.5 ML SYRINGE IVP STA (22:42)
[2020-12-22] MEDS ORDERED: PREGABALIN 100 MG CAP PO STA (22:45)
[2020-12-23] MEDS ORDERED: AZITHROMYCIN 500 MG in SODIUM CHLORIDE 0.9% 250 ML IVPB SCH (01:00)
[2020-12-23] MEDS: oxyCODONE-APAP 10-325MG 1 EACH TAB PO PRN ×4 (04:41→22:28)
[2020-12-23] MEDS: SODIUM CHLORIDE 0.9% 1,000 ML IV SCH (04:45)
[2020-12-23 07:16] LABS: Glucose,Whole Blood 102 mg/dL (75-99)
[2020-12-23] MEDS: AMIODARONE 200 MG TAB PO SCH (07:54)
[2020-12-23] MEDS: glipiZIDE 10 MG TAB PO SCH ×2 (07:54→17:43)
[2020-12-23] MEDS: AMPICILLIN-SULBACTAM 3 GM in SODIUM CHLORIDE 0.9% 100 ML IVPB SCH ×3 (07:54→20:35)
[2020-12-23] MEDS: METOPROLOL SUCCINATE (ER) 50 MG TAB.ER.24H PO SCH (07:54)
[2020-12-23] MEDS: INSULIN ASPART (NovoLOG) 100 UNIT/ML VIAL SQ SCH ×4 (07:55→20:35)
[2020-12-23] MEDS: PANTOPRAZOLE 40 MG TABLET PO SCH ×2 (07:55→20:34)
[2020-12-23] MEDS: MULTIVITAMINS, THERA 1 EACH TAB PO SCH (07:55)
[2020-12-23] MEDS: IPRATROPIUM-ALBUTEROL 3 ML NEB INHALATION SCH ×4 (08:41→19:46)
--- NOTE | 2020-12-23 09:57 | P.CONS ---
History of Present Illness - Reason for Consult Consult date: 12/23/20 wound care - History of Present Illness This is a 65-year-old patient known to the wound care center who has not been seen since 11/02/2020 being seen on 4 S. for nonhealing ulceration to the left buttocks and scrotum. Patient also has a ulceration to the right anterior lower extremity. The left buttocks extending into the groin and scrotum is a nonhealing ulceration with fatty layer exposure. Periwound shows maceration and excoriation. The wound has thick yellow slough with minimal granulation seen throughout the wound bed. The area is tender to touch. The right anterior lower extremity ulceration is Limited to skin breakdown with a cluster of 2 ulcerations. Granulation seen throughout the wound bed with minimal Slough and nonviable tissue noted. Patient's past medical history significant for atrial fibrillation, asthma, CAD, CVA A, diabetes, GERD, hyperlipidemia, hypertension, neuropathy, and left [id number] amputation. Review Of Systems: Constitutional: No fever, no chills, no night sweats. No weight change. No weakness, fatigue or lethargy. No daytime sleepiness. Integumentary:reports wounds, no lesions. No rash or pruritus. No unusual bruising. No change in hair or nails. Physical exam: General Appearance: Alert, cooperative, no distress, appears stated age. Skin: See HPI all other Skin color, texture, tugor normal, no rashes or lesions. Neurologic: Alert oriented x3 Assessment: 1. Nonhealing ulceration to left buttocks extending to scrotum with fat layer exposure 2. Nonhealing ulceration right lower extremity anterior aspect Limited to skin breakdown 3. Diabetes with skin ulceration Plan: 1. Apply triad to the buttocks and scrotum area daily. Cleanse with normal saline. May use intra-dry sheets as needed to help control moisture. 2. Apply zinc barrier cream to the right lower extremity ulcerations and secure with rolled gauze. Thank you for the consultation any questions please contact the wound care center DNP note has been reviewed and discussed with Dr. Bates and the impression and plan of care has been directed as dictated. Past Medical History Past Medical History: Atrial Fibrillation, Asthma, COPD, CVA/TIA, Diabetes Mellitus, Deep Vein Thrombosis (DVT), GERD/Reflux, Hyperlipidemia, Hypertension, Neurologic Disorder, Osteoarthritis (OA), Pneumonia, Pulmonary Embolus (PE), Skin Disorder, Vascular Disorder Additional Past Medical History / Comment(s): Pt recently admitted to [facility] on 11/20/20 with hyperkalemia, hyperglycemia, uncontrolled diabetes. Other hx: Lupus anticoagulant, DVTs bilateral legs, PEs bilateral lungs, pt has zina filter, L AKA/wheelchair bound, NIDDM type II, neuropathy bilateral hands, current wound R buttock and L anterior lower leg, TIAs, pneumothorax, past migraines, chronic low back pain, R leg edema at times, varicosities. History of Any Multi-Drug Resistant Organisms: MRSA Year Discovered:: 02/28/20 MDRO Source:: MRSA FOOT Past Surgical History: Adenoidectomy, Appendectomy, Tonsillectomy Additional Past Surgical History / Comment(s): [place] filter, stents in vessels "in pelvic area", total L hip arthroplasty, vein strippings, colonoscopy. Past Anesthesia/Blood Transfusion Reactions: No Reported Reaction Additional Past Anesthesia/Blood Transfusion Reaction / Comm: Pt has received blood in past without reaction. Smoking Status: Current every day smoker - Past Family History Mother Family Medical History: Coronary Artery Disease (CAD), Myocardial Infarction ([place]), Vascular Disorder Additional Family Medical History / Comment(s): heart disease, peripheral vascular disease. Father Family Medical History: Diabetes Mellitus, Renal Disease Medications and Allergies Home Medications Medication Instructions Recorded Confirmed Type Atorvastatin [Lipitor] 80 mg PO HS 01/09/14 12/21/20 History Topiramate [Topamax] 25 mg PO BID 01/09/14 12/21/20 History Nortriptyline [Pamelor] 50 mg PO HS 08/15/19 12/21/20 History Omeprazole [PriLOSEC] 20 mg PO BID 08/15/19 12/21/20 History Aspirin 81 mg PO DAILY 30 Days #30 chew 08/26/19 12/21/20 Rx Loratadine 10 mg PO HS 10/30/19 12/21/20 History Metoprolol Succinate (ER) [Toprol 50 mg PO DAILY 02/29/20 12/21/20 History XL] Amiodarone [Cordarone] 200 mg PO DAILY tab 03/07/20 12/21/20 Rx Docusate [Colace] 100 mg PO HS 05/19/20 12/21/20 History Albuterol Nebulized [Ventolin 2.5 mg INHALATION RT-QID PRN 10/16/20 12/21/20 History Nebulized] Budesonide/Formoterol Fumarate 2 puff INHALATION RT-BID PRN 10/16/20 12/21/20 History [Symbicort 160-4.5 Mcg Inhaler] Multivitamins, Thera [Multivitamin 1 tab PO DAILY 10/16/20 12/21/20 History (formulary)] Tiotropium [place] [Spiriva 1 spray INHALATION RT-DAILY PRN 10/16/20 12/21/20 History Respimat] oxyCODONE-APAP 10-325MG [Percocet 1 tab PO Q6H PRN 10/16/20 12/21/20 History 10-325 mg] Pregabalin [Lyrica] 200 mg PO BID 11/21/20 12/21/20 History glipiZIDE [Glucotrol] 10 mg PO AC-BID 30 Days #60 tablet 11/25/20 12/21/20 Rx metFORMIN HCL 1,000 mg PO BID 30 Days #60 tab 11/25/20 12/21/20 Rx Warfarin Sodium 6 mg PO SUTH 12/21/20 12/21/20 History Warfarin [Coumadin] 3 mg PO MOTUWEFRSA 12/21/20 12/21/20 History Allergies Allergy/AdvReac Type Severity Reaction Status Date / Time baclofen Allergy Unknown Verified 12/21/20 16:06 Physical Exam Vitals: Vital Signs Temp Pulse Pulse Resp BP BP Pulse Ox 12/23/20 08:51 86 12/23/20 08:41 83 12/23/20 08:00 97.8 F 74 16 100/60 94 L 12/23/20 03:15 98.3 F 68 17 111/63 97 12/22/20 22:15 20 12/22/20 20:30 70 20 91/51 95 12/22/20 20:00 98.1 F 67 18 113/67 98 12/22/20 18:00 88 18 107/64 98 12/22/20 15:51 70 12/22/20 15:41 68 12/22/20 11:14 70 12/22/20 11:02 69 12/22/20 11:00 97.2 F L 63 18 104/71 97 Intake and Output 12/22/20 12/23/20 12/23/20 22:59 06:59 14:59 Output Total 650 Balance -650 Output: Urine 650 Other: Weight 122.47 kg Results CBC & Chem 7: 12/21/20 17:55 12/21/20 17:55 Labs: Abnormal Lab Results - Last 24 Hours (Table) 12/22/20 12/22/20 12/23/20 Range/Units 14:52 18:45 07:00 POC Glucose (mg/dL) 120 H 106 H 102 H (75-99) mg/dL Microbiology - Last 24 Hours (Table) 12/21/20 23:20 Blood Culture - Preliminary Blood No Growth after 24 hours 12/21/20 23:00 Blood Culture Gram Stain - Preliminary Blood Blood Culture - Preliminary Coagulase Negative Staph 12/22/20 20:03 Sputum Culture - Preliminary Sputum 12/21/20 23:00 Blood Culture - Final Blood Assessment and Plan (1) Non-healing ulcer of buttock with fat layer exposed Current Visit: Yes Status: Acute Code(s): L98.412 - NON-PRESSURE CHRONIC UL CER OF BUTTOCK WITH FAT LAYER EXPOSED SNOMED Code(s): 95341330 (2) Nonhealing ulcer of right lower extremity limited to breakdown of skin Current Visit: Yes Status: Acute Code(s): L97.911 - NON-PRS CHR ULC UNSP PRT OF R LOW LEG LIMITED TO BRKDWN SKIN SNOMED Code(s): 75372534 (3) Type 2 diabetes mellitus with other skin ulcer Current Visit: Yes Status: Acute Code(s): E11.622 - TYPE 2 DIABETES MELLITUS WITH OTHER SKIN ULCER; L98.499 - NON-PRESSURE CHRONIC ULCER OF SKIN OF SITES W UNSP SEVERITY SNOMED Code(s): 487083518
[2020-12-23] MEDS: TOPIRAMATE 25 MG TAB PO SCH ×2 (10:05→20:33)
[2020-12-23 11:40] LABS: Glucose,Whole Blood 173 mg/dL (75-99)
[2020-12-23 12:28] LABS: INR 4.11 (0.90-1.11); Prothrombin Time 40.8 sec (9.9-11.9)
[2020-12-23] MEDS: HYDROPHILIC CREAM 180 GM TUBE TOPICAL SCH ×2 (12:42→22:35)
[2020-12-23 12:54] VITALS: BMI 33.7
[2020-12-23] MEDS: KETOROLAC 15 MG/ML 1 ML VIAL IVP PRN ×2 (14:54→20:34)
--- NOTE | 2020-12-23 14:56 | P.PN ---
Subjective 65-year-old the male came in with complaints of a swelling and redness of the scrotum. Patient had as "a lot of sound which did not show any significant abnormality but suspicious for epididymitis. Patient has stage II ulcers in the buttock area. Patient also has an ulcer on that decision area which is covered by Silvadene does of which I cannot states that the ulcer. Patient appears to have chronic ulcers. 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 Patient does have history of atrial fibrillation on Coumadin patient is present is whether we can Coumadin. Patient carries does make one pack of cigarettes per day is wheezing on exam. Patient the was coughing without any significant sputum production. Patient is presently on Unasyn which is being continued. 12/23/2020 Patient still has some mild wheezing continue with the inhaled steroids for now. Patient blood cultures are positive for coagulase-negative staph. Which is a contamination. Patient remains on 4 L of oxygen patient oxygen saturations are bit low I'll stop the IV fluids. We'll obtain a chest x-ray needed we'll give him Lasix. INR remains elevated at 4.11 commuter hold off Coumadin. Patient remains on Unasyn. Constitutional: Denied any fatigue denied any fever. Cardio vascular: denied any chest pain, palpitations Gastrointestinal denied any nausea vomiting Pulmonary: Denied any shortness of breath cough Neurologic denied any new focal deficits All inpatient medications were reviewed and appropriate changes in these medications as dictated in the interval history and assessment and plan. Objective - Vital Signs Vital signs: Vital Signs Temp 97.9 F 12/23/20 14:00 Pulse 62 12/23/20 14:00 Resp 16 12/23/20 14:00 BP 106/53 12/23/20 14:00 Pulse Ox 94 L 12/23/20 14:00 Intake & Output 12/22/20 12/23/20 12/23/20 18:59 06:59 18:59 Intake Total 400 Output Total 650 Balance -650 400 Weight 122.47 kg 122.47 kg Intake: Oral 400 Output: Urine 650 - Exam PHYSICAL EXAMINATION: GENERAL: The patient is alert and oriented x3, not in any acute distress. Obese HEENT: Pupils are round and equally reacting to light. EOMI. No scleral icterus. No conjunctival pallor. Normocephalic, atraumatic. No pharyngeal erythema. No thyromegaly. CARDIOVASCULAR: S1 and S2 present. No murmurs, rubs, or gallops. PULMONARY: Significant expiratory wheezing ABDOMEN: Soft, nontender, nondistended, normoactive bowel sounds. No palpable organomegaly. MUSCULOSKELETAL: No joint swelling or deformity. EXTREMITIES: No cyanosis, clubbing, or pedal edema. Patient has a left above- knee amputation NEUROLOGICAL: Gross neurological examination did not reveal any focal deficits. SKIN: Scrotum is severely swollen with redness in the posterior aspect of the scrotum there multiple stage I to 2 decubitus ulcers in the sacral area. Another ulcer on the ceron which is covered . - Labs CBC & Chem 7: 12/21/20 17:55 12/21/20 17:55 Labs: Abnormal Lab Results - Last 24 Hours (Table) 12/22/20 12/22/20 12/23/20 Range/Units 14:52 18:45 07:00 PT (9.9-11.9) sec INR (0.90-1.11) POC Glucose (mg/dL) 120 H 106 H 102 H (75-99) mg/dL 12/23/20 12/23/20 Range/Units 07:02 11:38 PT 40.8 H (9.9-11.9) sec INR 4.11 H (0.90-1.11) POC Glucose (mg/dL) 173 H (75-99) mg/dL Microbiology - Last 24 Hours (Table) 12/22/20 20:03 Gram Stain - Preliminary Sputum Sputum Culture - Preliminary 12/21/20 23:20 Blood Culture Gram Stain - Preliminary Blood 12/21/20 23:20 Blood Culture - Final Blood 12/21/20 23:00 Blood Culture Gram Stain - Preliminary Blood Blood Culture - Preliminary Coagulase Negative Staph 12/21/20 23:00 Blood Culture - Final Blood Assessment and Plan Plan: -Scrotal cellulitis: Patient is on Unasyn which will be continued infectious disease will be consulted -Multiple decubitus ulcers will need local wound care will be consulted as well. -Supratherapeutic INR Coumadin will be held, repeat INR tomorrow -COPD with mild acute exacerbation patient will be started on inhaled steroids inhalational treatments patient is already in antibiotics low suspicion for pneumonia -Proximal A. fib presently rate controlled continue with was oh medications Coumadin is being held because of elevated INR. -Continued nicotine use: Counseling was provided -Hypertension -hyperlipidemia -Type 2 diabetes mellitus with unknown control elevated blood sugars patient will be started on his home regimen along with sliding scale insulin titration depending on his blood sugars
--- NOTE | 2020-12-23 15:41 | XR ---
EXAMINATION TYPE: XR chest 1V DATE OF EXAM: 12/23/2020 COMPARISON: Chest x-ray 12/22/2020 HISTORY: Ingested heart failure TECHNIQUE: Single frontal view of the chest is obtained. FINDINGS: Interstitium remains increased. Heart remains enlarged. There is no evident pneumothorax o r pleural effusion. Heart size is prominent although the patient is rotated. There are overlying pily facts. IMPRESSION: There is likely pulmonary venous hypertension and interstitial edema. Findings are simil ar to prior exam.
[2020-12-23 16:50] LABS: Glucose,Whole Blood 124 mg/dL (75-99)
[2020-12-23 19:42] LABS: African American GFR (CKD) 92.4 (60.0-200.0); Anion Gap 3.7 mmol/L (4.00-12.00); Calcium 7.4 mg/dL (8.7-10.3); Carbon Dioxide 22.3 mmol/L (21.6-31.8); Non-African American GFR(CKD) 79.7 (60.0-200.0); Potassium 4.3 mmol/L (3.5-5.5)
[2020-12-23] MEDS: SYMBICORT 160-4.5 MCG INHALER INHALATION PRN (19:47)
[2020-12-23 20:19] LABS: Glucose,Whole Blood 166 mg/dL (75-99)
[2020-12-23] MEDS: DOCUSATE 100 MG CAP PO SCH (20:33)
[2020-12-23] MEDS: ATORVASTATIN 80 MG TAB PO SCH (20:33)
[2020-12-23] MEDS: LORATADINE 10 MG TAB PO SCH (20:33)
[2020-12-23] MEDS: NORTRIPTYLINE 25 MG CAP PO SCH (20:34)
[2020-12-23] MEDS: PREGABALIN 100 MG CAP PO SCH (22:28)
[2020-12-24 06:59] LABS: Glucose,Whole Blood 101 mg/dL (75-99)
[2020-12-24] MEDS: KETOROLAC 15 MG/ML 1 ML VIAL IM SCH (07:12)
[2020-12-24] MEDS: IPRATROPIUM-ALBUTEROL 3 ML NEB INHALATION SCH ×4 (07:55→20:33)
[2020-12-24] MEDS: SYMBICORT 160-4.5 MCG INHALER INHALATION PRN ×2 (07:55→20:34)
[2020-12-24] MEDS: PANTOPRAZOLE 40 MG TABLET PO SCH ×2 (08:16→21:15)
[2020-12-24] MEDS: TOPIRAMATE 25 MG TAB PO SCH ×2 (08:16→21:14)
[2020-12-24] MEDS: AMIODARONE 200 MG TAB PO SCH (08:16)
[2020-12-24] MEDS: PREGABALIN 100 MG CAP PO SCH ×2 (08:16→21:14)
[2020-12-24] MEDS: METOPROLOL SUCCINATE (ER) 50 MG TAB.ER.24H PO SCH (08:16)
[2020-12-24] MEDS: glipiZIDE 10 MG TAB PO SCH ×2 (08:16→17:22)
[2020-12-24] MEDS: HYDROPHILIC CREAM 180 GM TUBE TOPICAL SCH (08:17)
[2020-12-24] MEDS: INSULIN ASPART (NovoLOG) 100 UNIT/ML VIAL SQ SCH ×4 (08:17→21:14)
[2020-12-24] MEDS: AMPICILLIN-SULBACTAM 3 GM in SODIUM CHLORIDE 0.9% 100 ML IVPB SCH ×3 (08:17→21:15)
[2020-12-24] MEDS: MULTIVITAMINS, THERA 1 EACH TAB PO SCH (08:17)
[2020-12-24] MEDS: oxyCODONE-APAP 10-325MG 1 EACH TAB PO PRN ×2 (08:22→17:21)
[2020-12-24 08:51] LABS: HCT 32.5 % (39.6-50.0); HGB 10.3 g/dL (13.0-17.0); MCH 30.6 pg (27.0-32.0); MCHC 31.7 g/dL (32.0-37.0); MCV 96.4 fL (80.0-97.0); Mean Platelet Volume 10.6 fL (9.5-12.2); Platelet Count 251 X 10*3/uL (140-440); RBC 3.37 X 10*6/uL (4.40-5.60); RDW 15.4 % (11.5-14.5); WBC 7.14 X 10*3/uL (4.50-10.00)
[2020-12-24 09:11] LABS: INR 4.04 (0.90-1.11); Prothrombin Time 40.2 sec (9.9-11.9)
--- NOTE | 2020-12-24 10:17 | CONS ---
CONSULTATION DATE OF SERVICE: 12/23/2020 REASON FOR CONSULTATION: Scrotal cellulitis. HISTORY OF PRESENT ILLNESS: The patient is a 65-year-old male with a past medical history significant for a diabetic foot infection requiring amputation of his left leg above the knee. The patient did have a chronic wound to the lower extremity. The patient has been brought into the ER at [facility] 2 days ago for evaluation of pain to the scrotal area that apparently started the day he presented to the hospital. The patient describes the pain to the scrotal area to be more of a dull aching to sharp 4-5 out of 10 and no radiation. The patient did not have any open wound or any drainage. The patient on presentation to the hospital did not have any fever. The patient did have a white count of 11.1, INR was 5.4, creatinine was 1.24. Patient did have an ultrasound on the scrotal area, did not mention any epidermidis or an abscess. CT of the pelvis did show possible cellulitis. The patient was started on Unasyn. Has been admitted to the hospital. Infectious Disease was consulted for further management of antibiotic therapy. REVIEW OF SYSTEMS: Positive points have been mentioned in HPI. Rest of systems are negative. PAST MEDICAL HISTORY: Atrial fibrillation, asthma, COPD, CVA, TIA, diabetes mellitus, DVT, diabetic foot infection, PE. PAST SURGICAL HISTORY: Hemorrhoidectomy, appendectomy, tonsillectomy, [place] filter placement. SOCIAL HISTORY: Current everyday smoker. No drinking or drug use. FAMILY HISTORY: Mother with history of coronary artery disease. Mother history of diabetes and renal insufficiency. ALLERGIES: To baclofen. MEDICATIONS: The patient is currently on DuoNeb, amiodarone, Unasyn, Lipitor, Symbicort, Colace, Glipizide, NovoLog, Toradol, Claritin, Toprol-XL, Pamelor, Protonix, Lyrica, Topamax. PHYSICAL EXAMINATION: Blood pressure is 106/53 with a pulse of 72, temperature 97.9. He is 94% on room air. GENERAL: Patient is a middle-aged male lying in bed in no distress. No tachypnea or accessory muscles of respiration use. HEENT: Examination shows no pallor or scleral icterus. Oral mucous membrane is dry. NECK: Trachea central. No thyromegaly. LUNGS: Unlabored breathing, clear to auscultation anteriorly. HEART: S1, S2. Regular rate and rhythm. ABDOMEN: Soft, no tenderness. EXTREMITIES: Right leg did have a wound on the anterior surface with no significant slough tissue or surrounding redness. Examination of the scrotal area did show some swelling. The patient did have significant maceration, but no induration or drainage was noticed. NEUROLOGICAL: Patient is awake, alert, oriented. Affect normal. LABS: Hemoglobin is 12.4, white count 11.1, BUN of 20, creatinine 1.24. Creatinine is 1.29. DIAGNOSTIC IMPRESSION AND PLAN: Patient with admission to hospital with scrotal pain and swelling and is concerning for a scrotal cellulitis. Patient did have a significant maceration likely from possible urinary incontinence or a component of cutaneous candidiasis of the groin area with mild cellulitis. No evidence of any abscess or gangrene. PLAN: 1. Unasyn 3 grams q.8 hours to continue. 2. We will apply nystatin powder to bilateral groin area and keep the area dry and ( ). 3. We will follow on his clinical condition and further adjust medication if needed. Thank you for this consultation. Will follow this patient with you. MMODL / IJN: [id number] /
[2020-12-24 10:34] LABS: African American GFR (CKD) 92.4 (60.0-200.0); Anion Gap 2.1 mmol/L (4.00-12.00); Calcium 7.3 mg/dL (8.7-10.3); Carbon Dioxide 25.9 mmol/L (21.6-31.8); Non-African American GFR(CKD) 79.7 (60.0-200.0); Potassium 4.3 mmol/L (3.5-5.5)
[2020-12-24 11:35] LABS: Glucose,Whole Blood 131 mg/dL (75-99)
--- NOTE | 2020-12-24 13:04 | P.PN ---
Subjective 65-year-old the male came in with complaints of a swelling and redness of the scrotum. Patient had as "a lot of sound which did not show any significant abnormality but suspicious for epididymitis. Patient has stage II ulcers in the buttock area. Patient also has an ulcer on that decision area which is covered by Silvadene does of which I cannot states that the ulcer. Patient appears to have chronic ulcers. 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 Patient does have history of atrial fibrillation on Coumadin patient is present is whether we can Coumadin. Patient carries does make one pack of cigarettes per day is wheezing on exam. Patient the was coughing without any significant sputum production. Patient is presently on Unasyn which is being continued. 12/23/2020 Patient still has some mild wheezing continue with the inhaled steroids for now. Patient blood cultures are positive for coagulase-negative staph. Which is a contamination. Patient remains on 4 L of oxygen patient oxygen saturations are bit low I'll stop the IV fluids. We'll obtain a chest x-ray needed we'll give him Lasix. INR remains elevated at 4.11 commuter hold off Coumadin. Patient remains on Unasyn. 12/24/2020 Patient's code is feeling significantly improved. Patient had a chest x-ray which is showing pulmonary edema. We'll obtain a BNP. Patient had a normal e jection fraction the past. Patient will be started on IV Lasix every 12 hourly patient probably will need the Gamble catheter because of for his decubitus ulcers. Patient's scrotal swelling and redness significantly improved patient remains on Unasyn. Constitutional: Denied any fatigue denied any fever. Cardio vascular: denied any chest pain, palpitations Gastrointestinal denied any nausea vomiting Pulmonary: Denied any shortness of breath cough Neurologic denied any new focal deficits All inpatient medications were reviewed and appropriate changes in these medications as dictated in the interval history and assessment and plan. Objective - Vital Signs Vital signs: Vital Signs Temp 98.5 F 12/24/20 07:37 Pulse 76 12/24/20 08:08 Resp 16 12/24/20 07:37 BP 122/75 12/24/20 07:37 Pulse Ox 96 12/24/20 07:37 Intake & Output 12/23/20 12/24/20 12/24/20 18:59 06:59 18:59 Intake Total 400 200 Output Total 600 Balance 400 -600 200 Weight 122.47 kg Intake: Oral 400 200 Output: Urine 600 Other: Voiding Method Urinal Urinal - Exam PHYSICAL EXAMINATION: GENERAL: The patient is alert and oriented x3, not in any acute distress. Obese HEENT: Pupils are round and equally reacting to light. EOMI. No scleral icterus. No conjunctival pallor. Normocephalic, atraumatic. No pharyngeal erythema. No thyromegaly. CARDIOVASCULAR: S1 and S2 present. No murmurs, rubs, or gallops. PULMONARY: Wheezing improved. ABDOMEN: Soft, nontender, nondistended, normoactive bowel sounds. No palpable organomegaly. MUSCULOSKELETAL: No joint swelling or deformity. EXTREMITIES: No cyanosis, clubbing, or pedal edema. Patient has a left above- knee amputation NEUROLOGICAL: Gross neurological examination did not reveal any focal deficits. SKIN: Scrotum is severely swollen with redness in the posterior aspect of the scrotum there multiple stage I to 2 decubitus ulcers in the sacral area. Another ulcer on the ceron which is covered . - Labs CBC & Chem 7: 12/24/20 06:09 12/24/20 06:09 Labs: Abnormal Lab Results - Last 24 Hours (Table) 12/23/20 12/23/20 12/23/20 Range/Units 07:02 16:40 20:19 RBC (4.40-5.60) X 10*6/uL Hgb (13.0-17.0) g/dL Hct (39.6-50.0) % MCHC (32.0-37.0) g/dL RDW (11.5-14.5) % PT (9.9-11.9) sec INR (0.90-1.11) Chloride 113 H (96-109) mmol/L Anion Gap 3.70 L (4.00-12.00) mmol/L POC Glucose (mg/dL) 124 H 166 H (75-99) mg/dL Calcium 7.4 L (8.7-10.3) mg/dL 12/24/20 12/24/20 12/24/20 Range/Units 06:09 06:09 06:09 RBC 3.37 L (4.40-5.60) X 10*6/uL Hgb 10.3 L (13.0-17.0) g/dL Hct 32.5 L (39.6-50.0) % MCHC 31.7 L (32.0-37.0) g/dL RDW 15.4 H (11.5-14.5) % PT 40.2 H (9.9-11.9) sec INR 4.04 H (0.90-1.11) Chloride 110 H (96-109) mmol/L Anion Gap 2.10 L (4.00-12.00) mmol/L POC Glucose (mg/dL) (75-99) mg/dL Calcium 7.3 L (8.7-10.3) mg/dL 12/24/20 12/24/20 Range/Units 06:52 11:30 RBC (4.40-5.60) X 10*6/uL Hgb (13.0-17.0) g/dL Hct (39.6-50.0) % MCHC (32.0-37.0) g/dL RDW (11.5-14.5) % PT (9.9-11.9) sec INR (0.90-1.11) Chloride (96-109) mmol/L Anion Gap (4.00-12.00) mmol/L POC Glucose (mg/dL) 101 H 131 H (75-99) mg/dL Calcium (8.7-10.3) mg/dL Microbiology - Last 24 Hours (Table) 12/22/20 20:03 Gram Stain - Final Sputum Sputum Culture - Preliminary 12/21/20 23:00 Blood Culture Gram Stain - Final Blood Blood Culture - Final Coagulase Negative Staph 12/21/20 23:20 Blood Culture Gram Stain - Preliminary Blood 12/21/20 23:20 Blood Culture - Final Blood Assessment and Plan Plan: -Scrotal cellulitis: Patient is on Unasyn which will be continued infectious disease will be consulted -Multiple decubitus ulcers will need local wound care will be consulted as well. Continue with local wound care -Hemoptysis: Secondary to supraglottic INR mild hemoptysis patient will be monitored. If patient has significant are massive hemoptysis and patient will need vitamin K and/or fresh frozen plasma -Pulmonary edema: Echocardiogram will be obtained possibly of congestive heart failure with acute exacerbation patient had previously normal ejection fraction patient probably has chronic diastolic dysfunction with acute exacerbation patient will be started on IV Lasix BNP will be obtained. -Supratherapeutic INR Coumadin will be held, repeat INR tomorrow -COPD with mild acute exacerbation patient will be started on inhaled steroids inhalational treatments patient is already in antibiotics low suspicion for pneumonia -Proximal A. fib presently rate controlled continue with was oh medications Coumadin is being held because of elevated INR. -Continued nicotine use: Counseling was provided -Hypertension -hyperlipidemia -Type 2 diabetes mellitus with unknown control elevated blood sugars patient will be started on his home regimen along with sliding scale insulin titration depending on his blood sugars
[2020-12-24] MEDS: FUROSEMIDE 10 MG/ML 4 ML VIAL IV SCH ×2 (15:47→21:16)
[2020-12-24 16:51] LABS: Glucose,Whole Blood 205 mg/dL (75-99)
--- NOTE | 2020-12-24 18:19 | ECHOF ---
Referral Reason:CHF MEASUREMENTS -------- HEIGHT: 182.9 cm WEIGHT: 122.5 kg BP: RVIDd: 4.1 cm (< 3.3) IVSd: 1.2 cm (0.6 - 1.1) LVIDd: 5.0 cm (3.9 - 5.3) LVPWd: 1.1 cm (0.6 - 1.1) IVSs: 1.3 cm LVIDs: 4.3 cm LVPWs: 1.5 cm LA Diam: 3.9 cm (2.7 - 3.8) Ao Diam: 3.5 cm (2.0 - 3.7) AV Cusp: 2.4 cm (1.5 - 2.6) MV EXCURSION: 21.866 mm (> 18.000) MV EF SLOPE: 83 mm/s (70 - 150) MV E Josh: 0.59 m/s MV DecT: 212 ms MV A Josh: 0.56 m/s MV E/A Ratio: 1.06 RAP: 5.00 mmHg RVSP: 35.67 mmHg FINDINGS -------- Sinus rhythm. This was a technically difficult study with suboptimal views. Morbid Obesity The left ventricular size is normal. There is borderline concentric left ventricular hypertrophy. Overall left ventricular systolic function is normal with, an EF between 55 - 60 %. The right ventricle is moderately enlarged. The left atrium is mildly dilated. The right atrial size is normal. 5.0mg OF Lumason UTLIZED: 2 OR MORE WALL SEGMENTS NOT VISUALIZED. The aortic valve is trileaflet, and appears structurally normal. No aortic stenosis or regurgitation. The mitral valve is normal. Mild mitral regurgitation is present. The tricuspid valve appears structurally normal. Mild tricuspid regurgitation present. There is b orderline pulmonary artery hypertension. The right ventricular systolic pressure, as measured by Do ppler, is 35.67mmHg. The pulmonic valve was not well visualized. The aortic root size is normal. There is no pericardial effusion. CONCLUSIONS -------- 1. There is borderline concentric left ventricular hypertrophy. 2. Overall left ventricular systolic function is normal with, an EF between 55 - 60 %. 3. The right ventricle is moderately enlarged. 4. The left atrium is mildly dilated. 5. 5.0mg OF Lumason UTLIZED: 2 OR MORE WALL SEGMENTS NOT VISUALIZED. 6. The aortic valve is trileaflet, and appears structurally normal. No aortic stenosis or regurgitati on. 7. Mild mitral regurgitation is present. 8. Mild tricuspid regurgitation present. 9. There is borderline pulmonary artery hypertension. 10. There is no pericardial effusion. [employer]: Becka Harper RDCS
[2020-12-24] MEDS: KETOROLAC 15 MG/ML 1 ML VIAL IVP PRN (19:16)
--- NOTE | 2020-12-24 19:56 | PN ---
PROGRESS NOTE DATE OF SERVICE: 12/24/2020 REASON FOR FOLLOWUP VISIT: 1. Scrotal cellulitis. 2. . 3. Positive blood cultures likely contaminant. INTERVAL HISTORY: Patient is afebrile. The patient is breathing comfortably, however, has been complaining of cough with sputum production and some hemoptysis. No chest pain. No abdominal pain and no pain to the scrotal area. PHYSICAL EXAMINATION: Blood pressure is 111/58 with a pulse of 81, temperature 98.7. He is 95% on 4 L nasal cannula. General description is a middle-aged male lying in bed in no distress. Respiratory system: Unlabored breathing, decreased breath sounds in the bases. No wheeze. Heart: S1, S2. Regular rate and rhythm Abdomen soft, no tenderness. Scrotal swelling and redness has decreased. LABS: Hemoglobin is 10.8, white count 7.14. BUN of 14, creatinine 1.0. His INR is 4.04. DIAGNOSTIC IMPRESSION/PLAN: 1. Patient with scrotal cellulitis, overall improvement on Unasyn to continue transition to oral antibiotic on discharge along with nystatin powder to the groin area. 2. Positive blood culture likely skin contaminant as the patient has no clinical symptoms to go along with it. Blood cultures will be repeated to document clearance of bacteremia. 3. Patient with hemoptysis could be related to his coagulopathy as his INR is elevated with no evidence of any significant pneumonia on the x-ray. MMODL / IJN: [id number] /
[2020-12-24 20:27] LABS: Glucose,Whole Blood 118 mg/dL (75-99)
--- NOTE | 2020-12-24 20:28 | XR ---
EXAMINATION TYPE: XR chest 1V portable DATE OF EXAM: 12/24/2020 COMPARISON: NONE HISTORY: Cough. TECHNIQUE: 2 AP portable views. FINDINGS: There is coarse pulmonary interstitial density. Heart appears enlarged. There is no definit e pleural effusion. Bony thorax is intact. IMPRESSION: Pulmonary interstitial infiltrates increased slightly compared to yesterday that could be acute and chronic pneumonia. No definite pleural fluid seen to suggest heart failure.
[2020-12-24] MEDS: LORATADINE 10 MG TAB PO SCH (21:14)
[2020-12-24] MEDS: NORTRIPTYLINE 25 MG CAP PO SCH (21:14)
[2020-12-24] MEDS: DOCUSATE 100 MG CAP PO SCH (21:14)
[2020-12-24] MEDS: ATORVASTATIN 80 MG TAB PO SCH (21:22)
[2020-12-25] MEDS: KETOROLAC 15 MG/ML 1 ML VIAL IVP PRN (04:02)
[2020-12-25 04:59] LABS: Basophils % (A) 0 %; Eosinophils # (A) 0.2 k/uL (0-0.7); Eosinophils % (A) 3 %; Hypochromasia Slight; Lymphocytes # (A) 0.9 k/uL (1.0-4.8); Lymphocytes % (A) 14 %; MCH 30.6 pg (25.0-35.0); MCHC 32.5 g/dL (31.0-37.0); MCV 94.2 fL (80.0-100.0); Mean Platelet Volume 8.5; Monocytes # (A) 0.5 k/uL (0-1.0); Monocytes % (A) 8 %; Neutrophils # (A) 4.7 k/uL (1.3-7.7); Neutrophils % (A) 74 %; Platelet Count 237 k/uL (150-450); RDW 15.2 % (11.5-15.5); WBC 6.4 k/uL (3.8-10.6)
[2020-12-25] MEDS: IPRATROPIUM-ALBUTEROL 3 ML NEB INHALATION SCH ×4 (06:49→20:37)
[2020-12-25 07:16] LABS: Glucose,Whole Blood 145 mg/dL (75-99)
[2020-12-25] MEDS: AMPICILLIN-SULBACTAM 3 GM in SODIUM CHLORIDE 0.9% 100 ML IVPB SCH ×3 (09:07→23:36)
[2020-12-25] MEDS: FUROSEMIDE 10 MG/ML 4 ML VIAL IV SCH ×2 (09:07→21:27)
[2020-12-25] MEDS: MULTIVITAMINS, THERA 1 EACH TAB PO SCH (09:08)
[2020-12-25] MEDS: glipiZIDE 10 MG TAB PO SCH ×2 (09:08→17:34)
[2020-12-25] MEDS: AMIODARONE 200 MG TAB PO SCH (09:08)
[2020-12-25] MEDS: PREGABALIN 100 MG CAP PO SCH ×2 (09:08→21:26)
[2020-12-25] MEDS: INSULIN ASPART (NovoLOG) 100 UNIT/ML VIAL SQ SCH ×4 (09:08→21:36)
[2020-12-25] MEDS: PANTOPRAZOLE 40 MG TABLET PO SCH ×2 (09:08→21:30)
[2020-12-25] MEDS: METOPROLOL SUCCINATE (ER) 50 MG TAB.ER.24H PO SCH (09:08)
[2020-12-25] MEDS: HYDROPHILIC CREAM 180 GM TUBE TOPICAL SCH (09:09)
[2020-12-25] MEDS: TOPIRAMATE 25 MG TAB PO SCH ×2 (09:09→21:27)
[2020-12-25] MEDS: oxyCODONE-APAP 10-325MG 1 EACH TAB PO PRN ×3 (09:14→21:27)
[2020-12-25 11:36] LABS: HCT 33.9 % (39.6-50.0); HGB 10.6 g/dL (13.0-17.0); MCH 30.1 pg (27.0-32.0); MCHC 31.3 g/dL (32.0-37.0); MCV 96.3 fL (80.0-97.0); Mean Platelet Volume 10.5 fL (9.5-12.2); Platelet Count 264 X 10*3/uL (140-440); RBC 3.52 X 10*6/uL (4.40-5.60); RDW 15.6 % (11.5-14.5)
[2020-12-25 11:39] LABS: Glucose,Whole Blood 151 mg/dL (75-99)
[2020-12-25 12:01] LABS: INR 3.05 (0.90-1.11); Prothrombin Time 30.9 sec (9.9-11.9)
[2020-12-25 12:41] LABS: African American GFR (CKD) 74.1 (60.0-200.0); Anion Gap 4.7 mmol/L (4.00-12.00); BUN/Creat Ratio 10.83 Ratio (12.00-20.00); Calcium 7.5 mg/dL (8.7-10.3); Carbon Dioxide 24.3 mmol/L (21.6-31.8); Potassium 4.1 mmol/L (3.5-5.5)
--- NOTE | 2020-12-25 16:09 | P.PN ---
Subjective Progress Note Date: 12/25/20 65-year-old the male came in with complaints of a swelling and redness of the scrotum. Patient had as "a lot of sound which did not show any significant abnormality but suspicious for epididymitis. Patient has stage II ulcers in the buttock area. Patient also has an ulcer on that decision area which is covered by Silvadene does of which I cannot states that the ulcer. Patient appears to have chronic ulcers. 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 Patient does have history of atrial fibrillation on Coumadin patient is present is whether we can Coumadin. Patient carries does make one pack of cigarettes per day is wheezing on exam. Patient the was coughing without any significant sputum production. Patient is presently on Unasyn which is being continued. 12/23/2020 Patient still has some mild wheezing continue with the inhaled steroids for now. Patient blood cultures are positive for coagulase-negative staph. Which is a contamination. Patient remains on 4 L of oxygen patient oxygen saturations are bit low I'll stop the IV fluids. We'll obtain a chest x-ray needed we'll give him Lasix. INR remains elevated at 4.11 commuter hold off Coumadin. Patient remains on Unasyn. 12/24/2020 Patient's code is feeling significantly improved. Patient had a chest x-ray which is showing pulmonary edema. We'll obtain a BNP. Patient had a normal ejection fraction the past. Patient will be started on IV Lasix every 12 hourly patient probably will need the Gamble catheter because of for his decubitus u lcers. Patient's scrotal swelling and redness significantly improved patient remains on Unasyn. 12/25/2020 Patient continues on IV Lasix and continues to be short of breath and requiring or liters of oxygen via nasal cannula. Will obtain CT angios of the chest which is pending as we were awaiting repeat creatinine which is 1.2 today. Patient's INR is 3.05 and will continue to hold Coumadin at this time. Sodium is 140 with a potassium of 4.1 and blood sugars being monitored. White blood count is 8.1 and hemoglobin is stable at 10.6. On exam patient was sleeping and drowsy although arousable and requesting increase in pain medication. Patient is maintained on Percocets and will continue. Patient also continues on IV Unasyn and infectious disease is following. Chest x-ray yesterday showed pulmonary interstitial infiltrates increased and could be acute and chronic pneumonia. No definite pleural fluid to suggest heart failure noted. May transition to oral Lasix tomorrow. Constitutional: Denied any fatigue denied any fever. Cardio vascular: denied any chest pain, palpitations Gastrointestinal denied any nausea vomiting Pulmonary: Denied any shortness of breath cough Neurologic denied any new focal deficits All inpatient medications were reviewed and appropriate changes in these medications as dictated in the interval history and assessment and plan. Objective - Vital Signs Vital signs: Vital Signs Temp 98.6 F 12/25/20 08:00 Pulse 67 12/25/20 08:00 Resp 16 12/25/20 08:00 BP 116/66 12/25/20 08:00 Pulse Ox 96 12/25/20 08:00 Intake & Output 12/24/20 12/25/20 12/25/20 18:59 06:59 18:59 Intake Total 440 100 Output Total 1200 2400 Balance -760 -2300 Intake: Intake, IV Titration 100 Amount Ampicillin-Sulbactam 3 gm 100 In Sodium Chloride 0.9% 100 ml @ 200 mls/hr IVPB Q8H [facility] Rx#:[id number] Oral 440 Output: Urine 1200 2400 Other: Voiding Method Urinal Indwelling Catheter Indwelling Catheter - Exam GENERAL: The patient is alert and oriented x3, not in any acute distress. Obese, lethargic although arousable HEENT: Pupils are round and equally reacting to light. EOMI. No scleral icterus. No conjunctival pallor. Normocephalic, atraumatic. No pharyngeal erythema. No thyromegaly. CARDIOVASCULAR: S1 and S2 present. No murmurs, rubs, or gallops. PULMONARY: Diminished breath sounds with bilateral rhonchi noted ABDOMEN: Soft, obese, nontender, nondistended, normoactive bowel sounds. No palpable organomegaly. MUSCULOSKELETAL: No joint swelling or deformity. EXTREMITIES: No cyanosis, clubbing, or pedal edema. Patient has a left above- knee amputation NEUROLOGICAL: Gross neurological examination did not reveal any focal deficits. Diffusely weak. SKIN: Scrotum is severely swollen with redness in the posterior aspect of the scrotum there multiple stage I to 2 decubitus ulcers in the sacral area. Another ulcer on the ceron which is covered . - Labs CBC & Chem 7: 12/25/20 03:52 12/25/20 06:10 Labs: Abnormal Lab Results - Last 24 Hours (Table) 12/24/20 12/24/20 12/24/20 Range/Units 11:30 15:24 16:49 RBC (4.30-5.90) m/uL Hgb (13.0-17.5) gm/dL Hct (39.0-53.0) % Lymphocytes # (1.0-4.8) k/uL POC Glucose (mg/dL) 131 H 205 H (75-99) mg/dL C-Reactive Protein 7.0 H (<1.0) mg/dL 12/24/20 12/24/20 12/25/20 Range/Units 20:25 20:49 06:55 RBC 3.60 L (4.30-5.90) m/uL Hgb 11.0 L (13.0-17.5) gm/dL Hct 34.0 L (39.0-53.0) % Lymphocytes # 0.9 L (1.0-4.8) k/uL POC Glucose (mg/dL) 118 H 145 H (75-99) mg/dL C-Reactive Protein (<1.0) mg/dL Microbiology - Last 24 Hours (Table) 12/21/20 23:00 Blood Culture Gram Stain - Final Blood Blood Culture - Preliminary Coagulase Negative Staph Coagulase Negative Staph#2 Micrococcus species 12/21/20 23:20 Blood Culture Gram Stain - Preliminary Blood 12/22/20 20:03 Gram Stain - Final Sputum Sputum Culture - Preliminary Assessment and Plan Assessment: -Scrotal cellulitis: Patient is on Unasyn which will be continued infectious disease following. Indwelling Gamble catheter placed as patient continues to be incontinent and the area is irritated -Multiple decubitus ulcers; Continue with local wound care, wound care consulted -Hemoptysis: Secondary to supratherapeutic INR mild hemoptysis patient will be monitored. Improving -Pulmonary edema: Echocardiogram shows overall left ventricular systolic function normal with an EF of 55-60 with some borderline pulmonary artery hypertension noted and mild tricuspid and mitral regurgitation present. -congestive heart failure with acute exacerbation, acute on chronic diastolic dysfunction -Supratherapeutic INR; Coumadin held as INR is 3.05 today and will repeat INR -COPD with mild acute exacerbation patient will be started on inhaled steroids inhalational treatments patient continues on IV Zosyn -Proximal A. fib presently rate controlled -Continued nicotine use: Counseling was provided -Hypertension -hyperlipidemia -Type 2 diabetes mellitus with uncontrolled elevated blood sugars patient and will continue with sliding scale and oral diabetic agents and continue to monito r before meals and at bedtime Plan: Recommend to continue with IV antibiotics and breathing inhalational treatments and IV Lasix for an additional 24 hours and will transition to oral diuretics tomorrow. Continue to hold Coumadin as INR is 3.05 and will repeat labs tomorrow. Patient continues to be short of breath requiring 4 L and he does not normally wear this in the outpatient setting and will obtain CT angiogram chest which is currently pending. Indwelling Gamble catheter placed as patient continues to be incontinent and has continued scrotal cellulitis with ulcers noted an irritation to the site.
[2020-12-25 16:42] LABS: Glucose,Whole Blood 125 mg/dL (75-99)
--- NOTE | 2020-12-25 16:55 | PN ---
PROGRESS NOTE DATE OF SERVICE: 12/25/2020 REASON FOR FOLLOWUP: Scrotal cellulitis, groin area cutaneous candidiasis and right leg wound. INTERVAL HISTORY: Patient is afebrile, has been breathing comfortably. The patient denies having any chest pain. He did have a cough with occasional sputum and some hemoptysis. No vomiting. No abdominal pain or any worsening pain to the scrotal area especially complaining of pain after application of some cream. PHYSICAL EXAMINATION: Blood pressure 116/66, pulse of 67, temperature 98.6. He is 96% on room air. General description is a middle-aged male lying in no distress. Respiratory system: Unlabored breathing, decreased breath sounds in the base, with no wheeze. Heart S1, S2. Regular rate and rhythm. Abdomen is soft with no tenderness. Scrotal area with swelling, no redness or drainage. Right leg wound is currently dressed, no drainage on the dressing. LABS: Creatinine 0.05, BUN of 13, creatinine 1.2. DIAGNOSTIC IMPRESSION AND PLAN: 1. Patient with scrotal cellulitis covered with Unasyn along with nystatin powder in between the groin. 2. Positive blood culture is likely skin contaminant. Patient with cough and some hemoptysis, possibly is clinically not behaving as acute pneumonia. MMODL / IJN: [id number] /
--- NOTE | 2020-12-25 17:43 | CT ---
EXAMINATION TYPE: CT angio chest DATE OF EXAM: 12/25/2020 COMPARISON: None HISTORY: Shortness of breath. CT DLP: 1151.2 mGycm Automated exposure control for dose reduction was used. CONTRAST: Performed with IV Contrast, patient injected with 100 mL of Isovue 370. Images obtained from the thoracic inlet to the diaphragm with IV contrast. There are 3-D post process ed images. There is bullous pulmonary emphysema. There are bilateral pleural effusions. There is patchy intersti tial groundglass infiltrates throughout the lungs. There is some more coalescent density at the lung bases. There is some atelectasis at both lung bases. Heart size is normal. There is no pericardial ef fusion. There are multiple paratracheal and mediastinal lymph nodes that measure up to 2.5 cm in maximum dime nsion. There are a few bronchial lymph nodes up to 1 cm. Thoracic aorta is intact. There is no aneurysm or dissection. There is normal contrast opacification of the pulmonary arteries. There are no filling defects. The thoracic spine is intact. There is no compression fracture. The ribs appear intact. IMPRESSION: No evidence of pulmonary embolism. Mediastinal and bronchial adenopathy. Pulmonary emphysema. Extensi ve interstitial lung disease. This could relate to sarcoidosis. There is airspace pneumonia and atele ctasis at both lung bases. Small pleural effusions.
[2020-12-25 19:50] LABS: Glucose,Whole Blood 200 mg/dL (75-99)
[2020-12-25] MEDS: DOCUSATE 100 MG CAP PO SCH (21:26)
[2020-12-25] MEDS: NORTRIPTYLINE 25 MG CAP PO SCH (21:26)
[2020-12-25] MEDS: ATORVASTATIN 80 MG TAB PO SCH (21:27)
[2020-12-25] MEDS: LORATADINE 10 MG TAB PO SCH (21:30)
[2020-12-26] MEDS: oxyCODONE-APAP 10-325MG 1 EACH TAB PO PRN ×3 (05:19→20:37)
[2020-12-26 07:22] LABS: Glucose,Whole Blood 79 mg/dL (75-99)
[2020-12-26 07:44] LABS: Basophils % (A) 0 %; Eosinophils # (A) 0.2 k/uL (0-0.7); Eosinophils % (A) 2 %; HCT 34.5 % (39.0-53.0); HGB 11.5 gm/dL (13.0-17.5); Hypochromasia Slight; Lymphocytes # (A) 1.1 k/uL (1.0-4.8); Lymphocytes % (A) 13 %; MCH 31.1 pg (25.0-35.0); MCHC 33.4 g/dL (31.0-37.0); MCV 93.3 fL (80.0-100.0); Mean Platelet Volume 7.7; Monocytes # (A) 0.5 k/uL (0-1.0); Monocytes % (A) 6 %; Neutrophils # (A) 6.8 k/uL (1.3-7.7); Neutrophils % (A) 77 %; Platelet Count 295 k/uL (150-450); RDW 15.5 % (11.5-15.5); WBC 8.8 k/uL (3.8-10.6)
[2020-12-26 07:55] LABS: INR 2.2 (<1.2); Prothrombin Time 21.1 sec (9.0-12.0)
[2020-12-26] MEDS: SYMBICORT 160-4.5 MCG INHALER INHALATION PRN (07:56)
[2020-12-26] MEDS: IPRATROPIUM-ALBUTEROL 3 ML NEB INHALATION SCH ×4 (07:58→21:45)
[2020-12-26 07:59] LABS: African American GFR (CKD) 69 (>60 ml/min/1.73 sqM); Anion Gap 5 mmol/L; Blood Urea Nitrogen 13 mg/dL (9-20); Calcium 7.7 mg/dL (8.4-10.2); Carbon Dioxide 26 mmol/L (22-30); Chloride 110 mmol/L (98-107); Glucose 70 mg/dL (74-99); Non-African American GFR(CKD) 60 (>60 ml/min/1.73 sqM); Sodium 141 mmol/L (137-145)
[2020-12-26] MEDS: INSULIN ASPART (NovoLOG) 100 UNIT/ML VIAL SQ SCH ×4 (08:32→20:36)
[2020-12-26] MEDS: PANTOPRAZOLE 40 MG TABLET PO SCH ×2 (08:50→20:37)
[2020-12-26] MEDS: FUROSEMIDE 10 MG/ML 4 ML VIAL IV SCH ×2 (08:50→20:35)
[2020-12-26] MEDS: MULTIVITAMINS, THERA 1 EACH TAB PO SCH (08:50)
[2020-12-26] MEDS: AMIODARONE 200 MG TAB PO SCH (08:50)
[2020-12-26] MEDS: TOPIRAMATE 25 MG TAB PO SCH ×2 (08:50→20:37)
[2020-12-26] MEDS: METOPROLOL SUCCINATE (ER) 50 MG TAB.ER.24H PO SCH (08:50)
[2020-12-26] MEDS: PREGABALIN 100 MG CAP PO SCH ×2 (08:50→20:37)
[2020-12-26] MEDS: AMPICILLIN-SULBACTAM 3 GM in SODIUM CHLORIDE 0.9% 100 ML IVPB SCH ×3 (08:51→22:56)
[2020-12-26] MEDS: HYDROPHILIC CREAM 180 GM TUBE TOPICAL SCH (08:51)
[2020-12-26] MEDS: glipiZIDE 10 MG TAB PO SCH ×2 (08:51→18:04)
[2020-12-26 12:24] LABS: Glucose,Whole Blood 213 mg/dL (75-99)
--- NOTE | 2020-12-26 15:26 | P.PN ---
Subjective This is a pleasant 65 years old male with past medical history of GERD, hyperlipidemia, osteoarthritis, atrial fibrillation on Coumadin, history of CVA/TIA, diabetes mellitus, history of multiple DVT on the right leg and history of PE on Coumadin. COPD, uncontrolled diabetes, lupus anticoagulant. Presents on 12/21 for swollen scrotum of one-day duration with pain. Found to have scrotal cellulitis which is also shown on scrotal pelvic CT. Patient has been placed on antibiotics Unasyn per recommendation by infectious disease team. Also patient with some respiratory distress and tachypnea thought it secondary to acute diastolic CHF with ejection fraction more than 55-60% and patient is currently on IV Lasix 40 mg twice daily Patient proBNP increased at 174 from about 2 months ago to 1910 during this admission. Patient is lying in bed with some chest tightness and coughing with brown phlegm. He denies chest pain. Distal complaining of from right sided scrotal tenderness with no significant swelling or redness, area looks light pink. Patient CTA of the chest yesterday showed bullous emphysema with bilateral pleural effusion and patchy interstitial ground glass opacity throughout both lung swartz suspicious for sarcoidosis or pneumonia and there was no pulmonary embolism. While CT of the pelvis showing IVC filter with scrotal cellulitis Patient has uncontrolled diabetes with hemoglobin A1c is 60%. proCalcitonin is normal at 0.06. C-reactive protein is elevated at 7.0. Patient is currently covered with Unasyn. Also he is on IV Lasix Toda doxycycline and Solu-Medrol is added. Objective - Vital Signs Vital signs: Vital Signs Temp 98.6 F 12/26/20 07:35 Pulse 69 12/26/20 07:35 Resp 16 12/26/20 07:35 BP 103/60 12/26/20 07:35 Pulse Ox 97 12/26/20 07:58 Intake & Output 12/25/20 12/26/20 12/26/20 18:59 06:59 18:59 Intake Total 1100 800 Output Total 900 2200 Balance 200 -2200 800 Intake: Intake, IV Titration 100 Amount Ampicillin-Sulbactam 3 gm 100 In Sodium Chloride 0.9% 100 ml @ 200 mls/hr IVPB Q8H HELENE Rx#:[id number] Oral 1000 800 Output: Urine 900 2200 Other: Voiding Method Indwelling Catheter Indwelling Catheter - Labs CBC & Chem 7: 12/26/20 07:00 12/26/20 07:00 Labs: Abnormal Lab Results - Last 24 Hours (Table) 12/25/20 12/25/20 12/26/20 Range/Units 16:34 19:48 07:00 RBC 3.70 L (4.30-5.90) m/uL Hgb 11.5 L (13.0-17.5) gm/dL Hct 34.5 L (39.0-53.0) % PT (9.0-12.0) sec INR (<1.2) Chloride (98-107) mmol/L Creatinine (0.66-1.25) mg/dL Glucose (74-99) mg/dL POC Glucose (mg/dL) 125 H 200 H (75-99) mg/dL Calcium (8.4-10.2) mg/dL 12/26/20 12/26/20 12/26/20 Range/Units 07:00 07:00 11:37 RBC (4.30-5.90) m/uL Hgb (13.0-17.5) gm/dL Hct (39.0-53.0) % PT 21.1 H (9.0-12.0) sec INR 2.2 H (<1.2) Chloride 110 H (98-107) mmol/L Creatinine 1.27 H (0.66-1.25) mg/dL Glucose 70 L (74-99) mg/dL POC Glucose (mg/dL) 213 H (75-99) mg/dL Calcium 7.7 L (8.4-10.2) mg/dL Microbiology - Last 24 Hours (Table) 12/21/20 23:20 Blood Culture Gram Stain - Final Blood Blood Culture - Final Coagulase Negative Staph Coagulase Negative Staph#2 Micrococcus species 12/21/20 23:00 Blood Culture Gram Stain - Final Blood Blood Culture - Final Coagulase Negative Staph Coagulase Negative Staph#2 Micrococcus species 12/24/20 15:24 Blood Culture - Preliminary Blood No Growth after 24 hours Assessment and Plan Assessment: Acute scrotal cellulitis Acute COPD exacerbation Acute and chronic diastolic CHF with ejection fraction more than 55-60% Hemoptysis secondary to above and coagulopathy Coagulopathy secondary to Coumadin Atrial fibrillation with rate controlled, on Coumadin. The kidney disease, stage II. Weakness mellitus with hyperglycemia and A1c of 16% Positive blood culture, most likely contamination. History of multiple right leg DVTs and bilateral pulmonary embolism History of left AKA Plan: This is a pleasant 65 years old male who presents with scrotal cellulitis which is been on Unasyn per ID team recommendation. Ulcers develop in respiratory distress secondary to CHF and COPD. Continue with IV Lasix, without restriction, Solu-Medrol and doxycycline to treat his elements of COPD with possible interstitial edema. Labs and medication were reviewed.. Continue same treatment. Continue with symptomatic treatment. Resume home medication. Monitor lytes and vitals. DVT and GI prophylaxis. Further recommendationsas per clinical course of the suzanne cha DVT prophylaxis: Coumadin GI Prophylaxis: Ppi PT/OT: Pending Prognosis is guarded
[2020-12-26] MEDS: methylPREDNISolone SOD SUCCI 40 MG/ML 1 ML VIAL IV SCH ×2 (15:37→22:57)
[2020-12-26 15:49] LABS: Glucose,Whole Blood 231 mg/dL (75-99)
[2020-12-26 16:56] LABS: Glucose,Whole Blood 271 mg/dL (75-99)
[2020-12-26] MEDS: DOXYCYCLINE 100 MG in SODIUM CHLORIDE 0.9% 100 ML IVPB SCH ×2 (18:04→23:40)
[2020-12-26] MEDS ORDERED: WARFARIN 3 MG TAB PO ONE (19:00)
[2020-12-26 20:20] LABS: Glucose,Whole Blood 320 mg/dL (75-99)
[2020-12-26] MEDS: ATORVASTATIN 80 MG TAB PO SCH (20:35)
[2020-12-26] MEDS: DOCUSATE 100 MG CAP PO SCH (20:35)
[2020-12-26] MEDS: LORATADINE 10 MG TAB PO SCH (20:36)
[2020-12-26] MEDS: NORTRIPTYLINE 25 MG CAP PO SCH (20:37)
[2020-12-27] MEDS: oxyCODONE-APAP 10-325MG 1 EACH TAB PO PRN ×3 (00:08→19:04)
[2020-12-27 06:58] LABS: Basophils % (A) 0 %; Eosinophils % (A) 0 %; HCT 35.5 % (39.0-53.0); HGB 11.7 gm/dL (13.0-17.5); Lymphocytes # (A) 0.6 k/uL (1.0-4.8); Lymphocytes % (A) 9 %; MCH 30.5 pg (25.0-35.0); MCV 92.6 fL (80.0-100.0); Mean Platelet Volume 7.6; Monocytes # (A) 0.1 k/uL (0-1.0); Monocytes % (A) 1 %; Neutrophils % (A) 88 %; Platelet Count 358 k/uL (150-450); RBC 3.84 m/uL (4.30-5.90); RDW 15.1 % (11.5-15.5); WBC 6.8 k/uL (3.8-10.6)
[2020-12-27 07:06] LABS: INR 1.5 (<1.2); Prothrombin Time 15.4 sec (9.0-12.0)
[2020-12-27 07:14] LABS: African American GFR (CKD) 82 (>60 ml/min/1.73 sqM); Anion Gap 5 mmol/L; Blood Urea Nitrogen 17 mg/dL (9-20); C Reactive Protein 6.2 mg/dL (<1.0); Calcium 7.9 mg/dL (8.4-10.2); Carbon Dioxide 27 mmol/L (22-30); Chloride 108 mmol/L (98-107); Glucose 246 mg/dL (74-99); Non-African American GFR(CKD) 71 (>60 ml/min/1.73 sqM); Potassium 4.4 mmol/L (3.5-5.1); Sodium 140 mmol/L (137-145)
[2020-12-27] MEDS: AMPICILLIN-SULBACTAM 3 GM in SODIUM CHLORIDE 0.9% 100 ML IVPB SCH ×3 (08:04→22:55)
[2020-12-27] MEDS: INSULIN ASPART (NovoLOG) 100 UNIT/ML VIAL SQ SCH ×4 (08:05→20:35)
[2020-12-27] MEDS: FUROSEMIDE 10 MG/ML 4 ML VIAL IV SCH ×2 (08:05→20:35)
[2020-12-27] MEDS: PREGABALIN 100 MG CAP PO SCH ×2 (08:05→20:36)
[2020-12-27] MEDS: PANTOPRAZOLE 40 MG TABLET PO SCH ×2 (08:05→20:36)
[2020-12-27] MEDS: methylPREDNISolone SOD SUCCI 40 MG/ML 1 ML VIAL IV SCH (08:05)
[2020-12-27] MEDS: glipiZIDE 10 MG TAB PO SCH ×2 (08:06→17:06)
[2020-12-27] MEDS: TOPIRAMATE 25 MG TAB PO SCH ×2 (08:06→20:36)
[2020-12-27] MEDS: AMIODARONE 200 MG TAB PO SCH (08:06)
[2020-12-27] MEDS: METOPROLOL SUCCINATE (ER) 50 MG TAB.ER.24H PO SCH (08:06)
[2020-12-27] MEDS: MULTIVITAMINS, THERA 1 EACH TAB PO SCH (08:06)
[2020-12-27] MEDS: HYDROPHILIC CREAM 180 GM TUBE TOPICAL SCH (08:08)
--- NOTE | 2020-12-27 08:17 | PN ---
PROGRESS NOTE DATE OF SERVICE: 12/26/2020 REASON FOR FOLLOW UP: 1. Positive blood culture. 2. . 3. Scrotal cellulitis. INTERVAL HISTORY: Patient is afebrile. The patient is breathing comfortably. The patient is still complaining of cough and hemoptysis. Denies any chest pain. The patient's scrotal swelling and redness and pain has improved and denies having any diarrhea. PHYSICAL EXAMINATION: His vital signs are stable with a T-max of 98. General description is a middle-aged male lying in bed in no distress. Respiratory system: Unlabored breathing, clear to auscultation anteriorly. Heart S1, S2. Regular rate and rhythm. Abdomen is soft, no tenderness. Scrotal swelling and redness has improved, no drainage. LABS: Hemoglobin 11.1, white count 8.9, BUN of 13, creatinine 1.27. Repeat blood culture has been negative. Sputum is pending. IMPRESSION/PLAN: 1. Patient with a positive blood culture with multiple pathogens, likely skin contamination. Repeat blood culture negative. 2. Patient with scrotal cellulitis covered with Unasyn. 3. Groin area cutaneous candidiasis. Continue with nystatin powder. MMODL / IJN: [id number] /
[2020-12-27] MEDS: IPRATROPIUM-ALBUTEROL 3 ML NEB INHALATION SCH ×4 (08:23→19:18)
[2020-12-27] MEDS: SYMBICORT 160-4.5 MCG INHALER INHALATION PRN ×2 (08:23→19:18)
[2020-12-27] MEDS: DOXYCYCLINE 100 MG in SODIUM CHLORIDE 0.9% 100 ML IVPB SCH ×2 (09:55→20:35)
[2020-12-27 11:46] LABS: Glucose,Whole Blood 333 mg/dL (75-99)
[2020-12-27] MEDS: predniSONE 20 MG TAB PO SCH (15:55)
[2020-12-27 16:44] LABS: Glucose,Whole Blood 379 mg/dL (75-99)
[2020-12-27] MEDS ORDERED: WARFARIN 3 MG TAB PO ONE (18:00)
[2020-12-27 20:26] LABS: Glucose,Whole Blood 318 mg/dL (75-99)
[2020-12-27] MEDS: ATORVASTATIN 80 MG TAB PO SCH (20:34)
[2020-12-27] MEDS: DOCUSATE 100 MG CAP PO SCH (20:34)
[2020-12-27] MEDS: NORTRIPTYLINE 25 MG CAP PO SCH (20:36)
[2020-12-27] MEDS: LORATADINE 10 MG TAB PO SCH (20:36)
[2020-12-27] MEDS ORDERED: WARFARIN 1 MG TAB PO ONE (21:00)
--- NOTE | 2020-12-27 21:06 | P.PN ---
Subjective This is a pleasant 65 years old male with past medical history of GERD, hyperlipidemia, osteoarthritis, atrial fibrillation on Coumadin, history of CVA/TIA, diabetes mellitus, history of multiple DVT on the right leg and history of PE on Coumadin. COPD, uncontrolled diabetes, lupus anticoagulant. Presents on 12/21 for swollen scrotum of one-day duration with pain. Found to have scrotal cellulitis which is also shown on scrotal pelvic CT. Patient has been placed on antibiotics Unasyn per recommendation by infectious disease team. Also patient with some respiratory distress and tachypnea thought it secondary to acute diastolic CHF with ejection fraction more than 55-60% and patient is currently on IV Lasix 40 mg twice daily Patient proBNP increased at 174 from about 2 months ago to 1910 during this admission. Patient is lying in bed with some chest tightness and coughing with brown phlegm. He denies chest pain. Distal complaining of from right sided scrotal tenderness with no significant swelling or redness, area looks light pink. Patient CTA of the chest yesterday showed bullous emphysema with bilateral pleural effusion and patchy interstitial ground glass opacity throughout both lung swartz suspicious for sarcoidosis or pneumonia and there was no pulmonary embolism. While CT of the pelvis showing IVC filter with scrotal cellulitis Patient has uncontrolled diabetes with hemoglobin A1c is 60%. proCalcitonin is normal at 0.06. C-reactive protein is elevated at 7.0. Patient is currently covered with Unasyn. Also he is on IV Lasix Toda doxycycline and Solu-Medrol is added. Objective - Vital Signs Vital signs: Vital Signs Temp 98.4 F 12/27/20 19:57 Pulse 67 12/27/20 19:57 Resp 16 12/27/20 19:57 BP 103/65 12/27/20 19:57 Pulse Ox 99 12/27/20 19:57 Intake & Output 12/27/20 12/27/20 12/28/20 06:59 18:59 06:59 Intake Total 800 Output Total 1950 1400 Balance -1949 Intake: Oral 800 Output: Urine 1949 1400 Other: # Voids 3 - Exam GENERAL: The patient is alert and oriented x3, not in any acute distress. Well developed, well nourished. HEENT: Pupils are round and equally reacting to light. EOMI. No scleral icterus. No conjunctival pallor. Normocephalic, atraumatic. No pharyngeal erythema. No thyromegaly. CARDIOVASCULAR: S1 and S2 present. No murmurs, rubs, or gallops. PULMONARY: Chest is clear to auscultation, no wheezing or crackles. -ABDOMEN: Soft, nontender, nondistended, normoactive bowel sounds. No palpable o rganomegaly. Scrotum is with pinkish discoloration, no swollen MUSCULOSKELETAL: No joint swelling or deformity. -EXTREMITIES: No cyanosis, clubbing, or pedal edema. Status post old left AKA NEUROLOGICAL: Gross neurological examination did not reveal any focal deficits. SKIN: No rashes. no petechiae. - Labs CBC & Chem 7: 12/27/20 06:13 12/27/20 06:13 Labs: Abnormal Lab Results - Last 24 Hours (Table) 12/27/20 12/27/20 12/27/20 Range/Units 06:13 06:13 06:13 RBC 3.84 L (4.30-5.90) m/uL Hgb 11.7 L (13.0-17.5) gm/dL Hct 35.5 L (39.0-53.0) % Lymphocytes # 0.6 L (1.0-4.8) k/uL PT 15.4 H (9.0-12.0) sec INR 1.5 H (<1.2) Chloride 108 H (98-107) mmol/L Glucose 246 H (74-99) mg/dL POC Glucose (mg/dL) (75-99) mg/dL Calcium 7.9 L (8.4-10.2) mg/dL C-Reactive Protein 6.2 H (<1.0) mg/dL 12/27/20 12/27/20 12/27/20 Range/Units 11:44 16:43 20:23 RBC (4.30-5.90) m/uL Hgb (13.0-17.5) gm/dL Hct (39.0-53.0) % Lymphocytes # (1.0-4.8) k/uL PT (9.0-12.0) sec INR (<1.2) Chloride (98-107) mmol/L Glucose (74-99) mg/dL POC Glucose (mg/dL) 333 H 379 H 318 H (75-99) mg/dL Calcium (8.4-10.2) mg/dL C-Reactive Protein (<1.0) mg/dL Microbiology - Last 24 Hours (Table) 12/24/20 15:24 Blood Culture - Preliminary Blood No Growth after 72 hours Assessment and Plan Assessment: Acute scrotal cellulitis Acute COPD exacerbation, improved patchy interstitial ground glass opacity throughout both lung swartz . With mediastinal and bronchial lymphadenopathy measuring up to 2.5 cm Acute and chronic diastolic CHF with ejection fraction more than 55-60% Hemoptysis secondary to above and coagulopathy Coagulopathy secondary to Coumadin Atrial fibrillation with rate controlled, on Coumadin. The kidney disease, stage II. Weakness mellitus with hyperglycemia and A1c of 16% Positive blood culture, most likely contamination. History of multiple right leg DVTs and bilateral pulmonary embolism History of left AKA Plan: This is a pleasant 65 years old male who presents with scrotal cellulitis which is been on Unasyn per ID team recommendation. Improving respiratory distress secondary to CHF and COPD. Continue with IV Lasix, with fluid restriction, S [place]-Medrol and doxycycline to treat his elements of COPD with possible interstitial edema. Patient has bilateral pulmonary ST with some hemoptysis, patient will need close monitoring for now Continue with Coumadin and follow up INR. He got 7 mg of Coumadin tonight compared 50 mg yesterday Labs and medication were reviewed.. Continue same treatment. Continue with symptomatic treatment. Resume home medication. Monitor lytes and vitals. DVT and GI prophylaxis. Further recommendations as per clinical course of the patient DVT prophylaxis: Coumadin GI Prophylaxis: Ppi PT/OT: Pending Prognosis is guarded
--- NOTE | 2020-12-27 23:28 | PN ---
PROGRESS NOTE DATE OF SERVICE: 12/27/2020 REASON FOR FOLLOWUP: Scrotal cellulitis, groin area cutaneous candidiasis, right leg wound. INTERVAL HISTORY: Patient is afebrile. He is breathing comfortably on room air. Continues to have occasional cough. Some hemoptysis though. No chest pain. No abdominal pain or diarrhea. PHYSICAL EXAMINATION: Blood pressure 103/65, pulse of 57. Temperature 98.2. He is 99% on 4 L nasal cannula. General description is a middle-aged male up in the chair in no distress. Respiratory system: Unlabored breathing, decreased intensity of breath sounds. No wheeze. Heart S1, S2. Regular. ABDOMEN: Soft. No tenderness. Scrotal swelling has improved. No wound. No drainage. LABS: Hemoglobin is 11.7, white count 6.8. BUN of 17, creatinine is 1.10. Procalcitonin 0.03. DIAGNOSTIC IMPRESSION/PLAN: 1. Patient with a positive blood culture, more likely contamination. Repeat blood culture negative. No need for further workup for the same. 2. Patient with scrotal cellulitis. Overall improvement, plan to finish therapy with oral Augmentin. 3. Groin area cutaneous candidiasis. Nystatin powder twice a day for about a week. 4. The patient complaining of hemoptysis patient. The patient's procalcitonin normal. Patient did have a CT angiogram of the chest with evidence of interstitial lung disease and atelectasis in the lung bases. 5. May benefit from pulmonary evaluation. MMODL / IJN: [id number] /
[2020-12-28] MEDS: oxyCODONE-APAP 10-325MG 1 EACH TAB PO PRN ×5 (01:50→21:05)
[2020-12-28 07:27] LABS: Glucose,Whole Blood 354 mg/dL (75-99)
[2020-12-28] MEDS: INSULIN ASPART (NovoLOG) 100 UNIT/ML VIAL SQ SCH ×4 (07:43→21:04)
[2020-12-28] MEDS: AMPICILLIN-SULBACTAM 3 GM in SODIUM CHLORIDE 0.9% 100 ML IVPB SCH ×3 (07:43→23:34)
[2020-12-28] MEDS: PANTOPRAZOLE 40 MG TABLET PO SCH ×2 (07:44→21:04)
[2020-12-28] MEDS: predniSONE 20 MG TAB PO SCH (07:44)
[2020-12-28] MEDS: AMIODARONE 200 MG TAB PO SCH (07:44)
[2020-12-28] MEDS: PREGABALIN 100 MG CAP PO SCH ×2 (07:44→21:04)
[2020-12-28] MEDS: glipiZIDE 10 MG TAB PO SCH ×2 (07:44→16:58)
[2020-12-28] MEDS: METOPROLOL SUCCINATE (ER) 50 MG TAB.ER.24H PO SCH (07:44)
[2020-12-28] MEDS: MULTIVITAMINS, THERA 1 EACH TAB PO SCH (07:44)
[2020-12-28] MEDS: FUROSEMIDE 10 MG/ML 4 ML VIAL IV SCH ×2 (07:45→21:05)
[2020-12-28] MEDS: HYDROPHILIC CREAM 180 GM TUBE TOPICAL SCH (07:46)
[2020-12-28] MEDS: TOPIRAMATE 25 MG TAB PO SCH ×2 (07:46→21:06)
[2020-12-28 07:51] LABS: INR 2.1 (<1.2); Prothrombin Time 20.1 sec (9.0-12.0)
[2020-12-28] MEDS: IPRATROPIUM-ALBUTEROL 3 ML NEB INHALATION SCH ×4 (08:00→19:43)
[2020-12-28] MEDS: SYMBICORT 160-4.5 MCG INHALER INHALATION PRN ×2 (08:01→19:43)
[2020-12-28] MEDS: DOXYCYCLINE 100 MG in SODIUM CHLORIDE 0.9% 100 ML IVPB SCH ×2 (09:57→21:04)
[2020-12-28 11:55] LABS: Glucose,Whole Blood 356 mg/dL (75-99)
--- NOTE | 2020-12-28 13:07 | P.CNPUL ---
History of Present Illness Consult date: 12/28/20 Requesting physician: Shadia Alvarez Chief complaint: History of COPD, emphysema, interstitial lung disease History of present illness: This is a 65-year-old white male patient with history of multiple medical problems including COPD/emphysema, previous history of bilateral DVTs, and PEs on Coumadin, history of atrial fibrillation, diabetes mellitus type 2 with history of diabetic ulcer and osteomyelitis of left lower extremity status post above the knee amputation, hypertension, hyperlipidemia, peripheral vessel occl usive disease with previous femoral artery stenting, anxiety, history of IVC filter placement, and history of smoking. Patient presented to the emergency department on 12/21/2020 with complaints of scrotal swelling and pain and the patient was concerned about a possibility of a "blood clot" in his left side of the scrotum. Patient was reporting difficulty starting urine stream for several weeks. Denies any recent history of fever or chills, denied any cough, no chest congestion, no worsening shortness of breath. No chest pain, no nausea, no vomiting or diarrhea, no abdominal pain. No back pain, no pleurisy. 6 scrotal ultrasound showed a right epididymis that appeared somewhat hyperechoic, but abscess was not identified. Patient was diagnosed with scrotal cellulitis, and was started on antibiotics in the form of Unasyn. ID service has been consulted, patient also has a multiple decubitus ulcers on his buttock area. He is receiving local wound care. Chest x-ray showed vague increased opacity through the right lung. Follow-up chest x-ray showed patchy airspace disease and prominence of the interstitium bilaterally. Apparently patient did report some mild wheezing, and he was started on inhaled steroids, his chest x-ray was showing interstitial changes, and his proBNP was elevated at 1910 and was started on IV Lasix. His 2 sets up her calcitonin level were negative at 0.06 and 0.03. White count has not been significantly elevated, and most recent labs from 12/27/2020 shows a white count of 6.8, hemoglobin of 11.7, INR of 1.5, electrolytes and renal profile were unremarkable. Patient continues on IV Lasix at 40 mg every 12 hours, he is on Symbicort, he is on doxycycline and Unasyn. He is maintaining negative fluid balance, he is in -2.5 L over the last 24 amy rs. Echocardiogram has been completed showing normal left surgical systolic function with an EF of 55-60%, mild MR, mild TR, PA pressure of 35.6 mmHg. CTA chest has been completed showing no evidence of pulmonary embolism, he did show mediastinal and bronchial adenopathy, pulmonary emphysema, extensive interstitial lung disease with the possibility of sarcoidosis. There was airspace disease or possibility of atelectasis of both lung bases, and small pleural effusions. The patient is resting in bed, comfortably on 4 L of oxygen his pulse ox is 97%, denies any shortness of breath, no wheezing, no cough or phlegm production. he remains on antibiotics, IV Lasix, and breathing treatments. Review of Systems All systems: negative Constitutional: Denies chills, Denies fever Eyes: denies blurred vision, denies pain Ears, nose, mouth and throat: Denies headache, Denies sore throat Cardiovascular: Reports shortness of breath, Denies chest pain Respiratory: Denies cough Gastrointestinal: Denies abdominal pain, Denies diarrhea, Denies nausea, Denies vomiting Musculoskeletal: Denies myalgias Integumentary: Denies pruritus, Denies rash Neurological: Denies numbness, Denies weakness Psychiatric: Denies anxiety, Denies depression Endocrine: Denies fatigue, Denies weight change Past Medical History Past Medical History: Atrial Fibrillation, Asthma, COPD, CVA/TIA, Diabetes Mellitus, Deep Vein Thrombosis (DVT), GERD/Reflux, Hyperlipidemia, Hypertension, Neurologic Disorder, Osteoarthritis (OA), Pneumonia, Pulmonary Embolus (PE), Skin Disorder, Vascular Disorder Additional Past Medical History / Comment(s): Pt recently admitted to [facility] on 11/20/20 with hyperkalemia, hyperglycemia, uncontrolled diabetes. Other hx: Lupus anticoagulant, DVTs bilateral legs, PEs bilateral lungs, pt has zina filter, L AKA/wheelchair bound, NIDDM type II, neuropathy bilateral hands, current wound R buttock and L anterior lower leg, TIAs, pneumothorax, past migraines, chronic low back pain, R leg edema at times, varicosities. History of Any Multi-Drug Resistant Organisms: MRSA Date of last positivie culture/infection: 02/28/20 MDRO Source:: MRSA FOOT Past Surgical History: Adenoidectomy, Appendectomy, Tonsillectomy Additional Past Surgical History / Comment(s): 1980s [employer] filter, stents in vessels "in pelvic area", total L hip arthroplasty, vein strippings, colonoscopy. Past Anesthesia/Blood Transfusion Reactions: No Reported Reaction Additional Past Anesthesia/Blood Transfusion Reaction / Comment(s): Pt has received blood in past without reaction. Smoking Status: Current every day smoker - Past Family History Mother Family Medical History: Coronary Artery Disease (CAD), Myocardial Infarction ([place]), Vascular Disorder Additional Family Medical History / Comment(s): heart disease, peripheral vascular disease. Father Family Medical History: Diabetes Mellitus, Renal Disease Medications and Allergies Home Medications Medication Instructions Recorded Confirmed Type Atorvastatin [Lipitor] 80 mg PO HS 01/09/14 12/21/20 History Topiramate [Topamax] 25 mg PO BID 01/09/14 12/21/20 History Nortriptyline [Pamelor] 50 mg PO HS 08/15/19 12/21/20 History Omeprazole [PriLOSEC] 20 mg PO BID 08/15/19 12/21/20 History Aspirin 81 mg PO DAILY 30 Days #30 chew 08/26/19 12/21/20 Rx Loratadine 10 mg PO HS 10/30/19 12/21/20 History Metoprolol Succinate (ER) [Toprol 50 mg PO DAILY 02/29/20 12/21/20 History XL] Amiodarone [Cordarone] 200 mg PO DAILY tab 03/07/20 12/21/20 Rx Docusate [Colace] 100 mg PO HS 05/19/20 12/21/20 History Albuterol Nebulized [Ventolin 2.5 mg INHALATION RT-QID PRN 10/16/20 12/21/20 History Nebulized] Budesonide/Formoterol Fumarate 2 puff INHALATION RT-BID PRN 10/16/20 12/21/20 History [Symbicort 160-4.5 Mcg Inhaler] Multivitamins, Thera [Multivitamin 1 tab PO DAILY 10/16/20 12/21/20 History (formulary)] Tiotropium [place] [Spiriva 1 spray INHALATION RT-DAILY PRN 10/16/20 12/21/20 History Respimat] oxyCODONE-APAP 10-325MG [Percocet 1 tab PO Q6H PRN 10/16/20 12/21/20 History 10-325 mg] Pregabalin [Lyrica] 200 mg PO BID 11/21/20 12/21/20 History glipiZIDE [Glucotrol] 10 mg PO AC-BID 30 Days #60 tablet 11/25/20 12/21/20 Rx metFORMIN HCL 1,000 mg PO BID 30 Days #60 tab 11/25/20 12/21/20 Rx Warfarin Sodium 6 mg PO SUTH 12/21/20 12/21/20 History Warfarin [Coumadin] 3 mg PO MOTUWEFRSA 12/21/20 12/21/20 History Apixaban [Eliquis] 5 mg PO BID #60 tab 12/26/20 Rx Allergies Allergy/AdvReac Type Severity Reaction Status Date / Time baclofen Allergy Unknown Verified 12/21/20 16:06 Physical Exam Vitals: Vital Signs Temp Pulse Pulse Resp BP Pulse Ox 12/28/20 08:11 60 12/28/20 08:01 60 12/28/20 07:51 97.7 F 50 L 18 118/72 97 12/28/20 02:00 98.2 F 65 20 114/74 94 L 12/27/20 19:57 98.4 F 67 16 103/65 99 12/27/20 19:34 68 12/27/20 19:18 70 12/27/20 14:00 98.3 F 77 16 122/58 95 Intake and Output 12/27/20 12/28/20 12/28/20 22:59 06:59 14:59 Output Total 1400 1900 Balance -1400 -1900 Output: Urine 1400 1900 Other: Voiding Method Indwelling Catheter Indwelling Catheter # Voids 3 GENERAL EXAM: Alert, pleasant, 65-year-old white male, on 4 L of oxygen, resting in bed comfortable in no apparent distress. HEAD: Normocephalic/atraumatic. EYES: Normal reaction of pupils, equal size. Conjunctiva pink, sclera white. NOSE: Clear with pink turbinates. THROAT: No erythema or exudates. NECK: No masses, no JVD, no thyroid enlargement, no adenopathy. CHEST: No chest wall deformity. Symmetrical expansion. LUNGS: Equal air entry with no crackles, wheeze, rhonchi or dullness. CVS: Regular rate and rhythm, normal S1 and S2, no gallops, no murmurs, no rubs ABDOMEN: Soft, nontender. No hepatosplenomegaly, normal bowel sounds, no guarding or rigidity. EXTREMITIES: No clubbing, no edema, no cyanosis, 2+ pulses and upper and lower extremities. MUSCULOSKELETAL: Muscle strength and tone normal. Left [id number] amputatio n, stump is clean dry and intact SPINE: No scoliosis or deformity SKIN: No rashes. Sacral wounds, stage II, not examined, covered with dressings CENTRAL NERVOUS SYSTEM: Alert and oriented -3. No focal deficits, tone is normal in all 4 extremities. PSYCHIATRIC: Alert and oriented -3. Appropriate affect. Intact judgment and insight. Results - Laboratory Findings CBC and BMP: 12/27/20 06:13 12/27/20 06:13 PT/INR, D-dimer PT 20.1 sec (9.0-12.0) H 12/28/20 06:55 INR 2.1 (<1.2) H 12/28/20 06:55 Abnormal lab findings: Abnormal Labs 12/21/20 12/21/20 12/21/20 17:55 17:55 17:55 WBC 11.1 H RBC 4.18 L Hgb 12.4 L Hct MCHC RDW Neutrophils # 9.0 H Lymphocytes # PT 52.2 H INR 5.4 H* APTT 49.1 H Sodium 135 L Chloride Carbon Dioxide 20 L Anion Gap Creatinine BUN/Creatinine Ratio Glucose 226 H POC Glucose (mg/dL) Plasma Lactic Acid Dennis Calcium C-Reactive Protein Total Protein 6.2 L Albumin 3.2 L 12/21/20 12/22/20 12/22/20 17:55 14:52 18:45 WBC RBC Hgb Hct MCHC RDW Neutrophils # Lymphocytes # PT INR APTT Sodium Chloride Carbon Dioxide Anion Gap Creatinine BUN/Creatinine Ratio Glucose POC Glucose (mg/dL) 120 H 106 H Plasma Lactic Acid Dennis 2.9 H* Calcium C-Reactive Protein Total Protein Albumin 12/23/20 12/23/20 12/23/20 07:00 07:02 07:02 WBC RBC Hgb Hct MCHC RDW Neutrophils # Lymphocytes # PT 40.8 H INR 4.11 H APTT Sodium Chloride 113 H Carbon Dioxide Anion Gap 3.70 L Creatinine BUN/Creatinine Ratio Glucose POC Glucose (mg/dL) 102 H Plasma Lactic Acid Dennis Calcium 7.4 L C-Reactive Protein Total Protein Albumin 06/12/23/20 12/23/20 11:38 16:40 20:19 WBC RBC Hgb Hct MCHC RDW Neutrophils # Lymphocytes # PT INR APTT Sodium Chloride Carbon Dioxide Anion Gap Creatinine BUN/Creatinine Ratio Glucose POC Glucose (mg/dL) 173 H 124 H 166 H Plasma Lactic Acid Dennis Calcium C-Reactive Protein Total Protein Albumin 12/24/20 12/24/20 12/24/20 06:09 06:09 06:09 WBC RBC 3.37 L Hgb 10.3 L Hct 32.5 L MCHC 31.7 L RDW 15.4 H Neutrophils # Lymphocytes # PT 40.2 H INR 4.04 H APTT Sodium Chloride 110 H Carbon Dioxide Anion Gap 2.10 L Creatinine BUN/Creatinine Ratio Glucose POC Glucose (mg/dL) Plasma Lactic Acid Dennis Calcium 7.3 L C-Reactive Protein Total Protein Albumin 12/24/20 12/24/20 12/24/20 06:52 11:30 15:24 WBC RBC Hgb Hct MCHC RDW Neutrophils # Lymphocytes # PT INR APTT Sodium Chloride Carbon Dioxide Anion Gap Creatinine BUN/Creatinine Ratio Glucose POC Glucose (mg/dL) 101 H 131 H Plasma Lactic Acid Dennis Calcium C-Reactive Protein 7.0 H Total Protein Albumin 12/24/20 12/24/20 12/24/20 16:49 20:25 20:49 WBC RBC 3.60 L Hgb 11.0 L Hct 34.0 L MCHC RDW Neutrophils # Lymphocytes # 0.9 L PT INR APTT Sodium Chloride Carbon Dioxide Anion Gap Creatinine BUN/Creatinine Ratio Glucose POC Glucose (mg/dL) 205 H 118 H Plasma Lactic Acid Dennis Calcium C-Reactive Protein Total Protein Albumin 12/25/20 12/25/20 12/25/20 03:52 06:10 06:10 WBC RBC 3.52 L Hgb 10.6 L Hct 33.9 L MCHC 31.3 L RDW 15.6 H Neutrophils # Lymphocytes # PT 30.9 H INR 3.05 H APTT Sodium Chloride 111 H Carbon Dioxide Anion Gap Creatinine BUN/Creatinine Ratio 10.83 L Glucose 146 H POC Glucose (mg/dL) Plasma Lactic Acid Dennis Calcium 7.5 L C-Reactive Protein Total Protein Albumin 12/25/20 12/25/20 12/25/20 06:55 11:30 16:34 WBC RBC Hgb Hct MCHC RDW Neutrophils # Lymphocytes # PT INR APTT Sodium Chloride Carbon Dioxide Anion Gap Creatinine BUN/Creatinine Ratio Glucose POC Glucose (mg/dL) 145 H 151 H 125 H Plasma Lactic Acid Dennis Calcium C-Reactive Protein Total Protein Albumin 12/25/20 12/26/20 12/26/20 19:48 07:00 07:00 WBC RBC 3.70 L Hgb 11.5 L Hct 34.5 L MCHC RDW Neutrophils # Lymphocytes # PT 21.1 H INR 2.2 H APTT Sodium Chloride Carbon Dioxide Anion Gap Creatinine BUN/Creatinine Ratio Glucose POC Glucose (mg/dL) 200 H Plasma Lactic Acid Dennis Calcium C-Reactive Protein Total Protein Albumin 12/26/20 12/26/20 12/26/20 07:00 11:37 15:41 WBC RBC Hgb Hct MCHC RDW Neutrophils # Lymphocytes # PT INR APTT Sodium Chloride 110 H Carbon Dioxide Anion Gap Creatinine 1.27 H BUN/Creatinine Ratio Glucose 70 L POC Glucose (mg/dL) 213 H 231 H Plasma Lactic Acid Dennis Calcium 7.7 L C-Reactive Protein Total Protein Albumin 12/26/20 12/26/20 12/27/20 16:46 20:20 06:13 WBC RBC 3.84 L Hgb 11.7 L Hct 35.5 L MCHC RDW Neutrophils # Lymphocytes # 0.6 L PT INR APTT Sodium Chloride Carbon Dioxide Anion Gap Creatinine BUN/Creatinine Ratio Glucose POC Glucose (mg/dL) 271 H 320 H Plasma Lactic Acid Dennis Calcium C-Reactive Protein Total Protein Albumin 12/27/20 12/27/20 12/27/20 06:13 06:13 11:44 WBC RBC Hgb Hct MCHC RDW Neutrophils # Lymphocytes # PT 15.4 H INR 1.5 H APTT Sodium Chloride 108 H Carbon Dioxide Anion Gap Creatinine BUN/Creatinine Ratio Glucose 246 H POC Glucose (mg/dL) 333 H Plasma Lactic Acid Dennis Calcium 7.9 L C-Reactive Protein 6.2 H Total Protein Albumin 12/27/20 12/27/20 12/28/20 16:43 20:23 06:55 WBC RBC Hgb Hct MCHC RDW Neutrophils # Lymphocytes # PT 20.1 H INR 2.1 H APTT Sodium Chloride Carbon Dioxide Anion Gap Creatinine BUN/Creatinine Ratio Glucose POC Glucose (mg/dL) 379 H 318 H Plasma Lactic Acid Dennis Calcium C-Reactive Protein Total Protein Albumin 12/28/20 12/28/20 07:26 11:53 WBC RBC Hgb Hct MCHC RDW Neutrophils # Lymphocytes # PT INR APTT Sodium Chloride Carbon Dioxide Anion Gap Creatinine BUN/Creatinine Ratio Glucose POC Glucose (mg/dL) 354 H 356 H Plasma Lactic Acid Dennis Calcium C-Reactive Protein Total Protein Albumin - Diagnostic Findings Chest x-ray: report reviewed, image reviewed CT scan - chest: report reviewed, image reviewed Assessment and Plan Plan: Assessment: #1. Acute hypoxic respiratory failure related to mild exacerbation of COPD, acute exacerbation of diastolic CHF and history of COPD/emphysema, and underlying history of interstitial lung disease #2. Acute scrotal cellulitis #3. Patchy interstitial groundglass opacities throughout both lungs with the possibility of inflammatory changes or related to fluid overload #4. Mediastinal and bronchial lymphadenopathy, slightly more increased compared to most recent CT of the chest, from 07/21/2019, this could be related to underlying history of sarcoidosis, this will be followed on outpatient basis #5. Worsening interstitial lung disease, pulmonary fibrosis, possibly related to amiodarone use #6. History of COPD/emphysema, CTA chest showed bullous emphysema and extensive interstitial disease #7. Sacral decubitus ulcers, stage II #8. Former smoker #9. Diabetes mellitus type 2 #10. History of PVD with previous history of femoral artery stenting #11. Previous history of left foot osteomyelitis status post left above-knee amputation #12. Hypertension #13. Hyperlipidemia #14. Chronic persistent atrial fibrillation on Coumadin #15. History of bilateral DVTs and PE on Coumadin Plan: Continue antibiotics per ID service recommendations Chest x-rays and CT chest reviewed Interstitial lung disease/pulmonary fibrosis slightly more increased compared to most recent CT chest from July 2019 and slightly more increased mediastinal lymphadenopathy Patient will need outpatient follow-up for outpatient PFT We will also need to consult with cardiology about the need for amiodarone, as the amiodarone possibly may be causing worsening ILD and may be affecting patient's pulmonary function Otherwise his COPD has improved, no worsening dyspnea, vital signs are stable We'll continue current medical treatment I performed a history & physical examination of the patient and discussed their management with my nurse practitioner, Stephanie Mendoza. I reviewed the nurse practitioner's note and agree with the documented findings and plan of care. Lung sounds are positive for diminished breath sounds. The findings and the impression was discussed with the patient. I attest to the documentation by the nurse practitioner. Time with Patient: Greater than 30
--- NOTE | 2020-12-28 13:57 | PN ---
PROGRESS NOTE DATE OF SERVICE: 12/28/2020 REASON FOR FOLLOWUP: Scrotal cellulitis, right leg wound and groin area cutaneous candidiasis. INTERVAL HISTORY: The patient is afebrile. The patient is breathing comfortably. Denies having chest pain. Did have a cough with occasional sputum. No vomiting. No abdominal pain. No worsening pain to the groin area. PHYSICAL EXAMINATION: Blood pressure 118/72 with a pulse of 60. Temperature 97.7. He is 97% on room air. General description is a middle-aged male lying in bed in no distress. Respiratory system: Unlabored breathing, decreased intensity of breath sounds. No wheeze. Heart S1, S2. Regular rate and rhythm. Abdomen: Soft, no tenderness. LABORATORY DATA: DIAGNOSTIC IMPRESSION AND PLAN: Patient with scrotal cellulitis and groin cutaneous candidiasis clinically responding to the Unasyn and Nystatin powder, plan to to receive a short course of oral Augmentin and nystatin powder. Close outpatient followup. MMODL / IJN: [id number] /
[2020-12-28 16:53] LABS: Glucose,Whole Blood 384 mg/dL (75-99)
[2020-12-28] MEDS ORDERED: WARFARIN 3 MG TAB PO ONE (18:00)
[2020-12-28 20:29] LABS: Glucose,Whole Blood 374 mg/dL (75-99)
[2020-12-28] MEDS: DOCUSATE 100 MG CAP PO SCH (21:04)
[2020-12-28] MEDS: ATORVASTATIN 80 MG TAB PO SCH (21:04)
[2020-12-28] MEDS: LORATADINE 10 MG TAB PO SCH (21:04)
[2020-12-28] MEDS: NORTRIPTYLINE 25 MG CAP PO SCH (21:06)
[2020-12-29 07:16] LABS: INR 2.6 (<1.2); Prothrombin Time 25.6 sec (9.0-12.0)
[2020-12-29 07:37] LABS: Glucose,Whole Blood 192 mg/dL (75-99)
[2020-12-29 08:00] VITALS: RESP 18; TEMP 97.8
[2020-12-29] MEDS: AMPICILLIN-SULBACTAM 3 GM in SODIUM CHLORIDE 0.9% 100 ML IVPB SCH (08:08)
[2020-12-29] MEDS: MULTIVITAMINS, THERA 1 EACH TAB PO SCH (08:09)
[2020-12-29] MEDS: FUROSEMIDE 10 MG/ML 4 ML VIAL IV SCH (08:09)
[2020-12-29] MEDS: AMIODARONE 200 MG TAB PO SCH (08:09)
[2020-12-29] MEDS: PANTOPRAZOLE 40 MG TABLET PO SCH (08:09)
[2020-12-29] MEDS: glipiZIDE 10 MG TAB PO SCH ×2 (08:09→17:30)
[2020-12-29] MEDS: INSULIN ASPART (NovoLOG) 100 UNIT/ML VIAL SQ SCH ×3 (08:09→17:29)
[2020-12-29] MEDS: TOPIRAMATE 25 MG TAB PO SCH (08:09)
[2020-12-29] MEDS: METOPROLOL SUCCINATE (ER) 50 MG TAB.ER.24H PO SCH (08:09)
[2020-12-29] MEDS: PREGABALIN 100 MG CAP PO SCH (08:09)
[2020-12-29] MEDS: oxyCODONE-APAP 10-325MG 1 EACH TAB PO PRN ×3 (08:10→17:30)
[2020-12-29] MEDS: SYMBICORT 160-4.5 MCG INHALER INHALATION PRN (08:30)
[2020-12-29] MEDS: IPRATROPIUM-ALBUTEROL 3 ML NEB INHALATION SCH ×3 (08:30→15:14)
[2020-12-29] MEDS ORDERED: predniSONE 20 MG TAB PO SCH (09:00)
--- NOTE | 2020-12-29 10:51 | P.CRDCN ---
History of Present Illness Consult date: 12/29/20 History of present illness: HISTORY OF PRESENT ILLNESS: This is a 65-year-old male with a past medical history significant for paroxysmal atrial fibrillation, COPD, pulmonary fibrosis, diabetes mellitus, DVT, hypertension, hyperlipidemia, pulmonary embolism, and congestive heart failure. Patient follows in the office with Dr. Heaton. We have been asked to see the patient in consultation for assessment of amiodarone. Patient examined at the bedside. Patient is admitted to the hospital secondary to COPD and scrotal cellulitis. Patient denies chest pain or pressure. He reports mild shortness of breath. He denies dizziness or lightheadedness. He denies palpitations. Echocardiogram completed revealed ejection fraction 55-60%, mild mitral regurgitation, mild tricuspid regurgitation, borderline pulmonary artery hypertension Chest CTA: No evidence of pulmonary embolism. Mediastinal and bronchial adenopathy. Pulmonary edema. Extensive interstitial lung disease. This could relate to sarcoidosis. There is airspace pneumonia and atelectasis at both lung bases. Small pleural effusions. Laboratory data: WBC 6.8. Hemoglobin 11.7. Platelet count 358. INR 2.6. Sodium 140. Potassium 4.4. BUN 17. Creatinine 1.10. BNP 1910. Current home cardiac medications include Coumadin 6 mg Monday and and 3 mg Monday, Monday, Monday, Monday, and Monday REVIEW OF SYSTEMS: At the time of my exam: CONSTITUTIONAL: Denies fever or chills. HEENT: Denies blurred vision, vision changes, or eye pain. Denies hemoptysis CARDIOVASCULAR: Denies chest pain. Denies orthopnea. Denies PND. Denies pal pitations RESPIRATORY: Denies shortness of breath. GASTROINTESTINAL: Denies abdominal pain. Denies nausea or vomiting. HEMATOLOGIC: Denies bleeding disorders. GENITOURINARY: Denies any blood in urine. SKIN: Denies pruitis. Denies rash. PHYSICAL EXAM: VITAL SIGNS: Reviewed. GENERAL: Well-developed in no acute distress. HEENT: Head is normocephalic. Pupils are equal, round. Sclerae anicteric. Mucous membranes of the mouth are moist. Neck supple. No JVD or thyromegaly LUNGS: Respirations even and unlabored. Lungs diminished bilaterally. HEART: Regular rate and rhythm. S1 and S2 heard. ABDOMEN: Soft. Nondistended. Nontender. EXTREMITIES: Normal range of motion. No clubbing or cyanosis. Peripheral pulses intact. Left AKA. Right lower extremity without edema. Dressing noted. NEUROLOGIC: Awake and alert. Oriented x 3. ASSESSMENT: Acute scrotal cellulitis Acute hypoxic respiratory failure Acute exacerbation of COPD Acute exacerbation of chronic diastolic congestive heart failure Worsening interstitial lung disease and pulmonary fibrosis History of PE/DVT Paroxysmal atrial fibrillation, on anticoagulation with Coumadin History of DVT and PE Hypertension Hyperlipidemia Diabetes mellitus Former nicotine dependence History of peripheral vascular disease PLAN: Continue home cardiac medications Okay to discontinue amiodarone from a cardiac standpoint Patient to follow up outpatient with Dr. Heaton We will sign off. Please reconsult if needed Nurse practitioner note has been reviewed by physician. Signing provider agrees with the documented findings, assessment, and plan of care. Past Medical History Past Medical History: Atrial Fibrillation, Asthma, COPD, CVA/TIA, Diabetes Mellitus, Deep Vein Thrombosis (DVT), GERD/Reflux, Hyperlipidemia, Hypertension, Neurologic Disorder, Osteoarthritis (OA), Pneumonia, Pulmonary Embolus (PE), Skin Disorder, Vascular Disorder Additional Past Medical History / Comment(s): Pt recently admitted to [facility] on 11/20/20 with hyperkalemia, hyperglycemia, uncontrolled diabetes. Other hx: Lupus anticoagulant, DVTs bilateral legs, PEs bilateral lungs, pt has zina filter, L AKA/wheelchair bound, NIDDM type II, neuropathy bilateral hands, current wound R buttock and L anterior lower leg, TIAs, pneumothorax, past migraines, chronic low back pain, R leg edema at times, varicosities. History of Any Multi-Drug Resistant Organisms: MRSA Date of last positivie culture/infection: 02/28/20 MDRO Source:: MRSA FOOT Past Surgical History: Adenoidectomy, Appendectomy, Tonsillectomy Additional Past Surgical History / Comment(s): 1980s Zina filter, stents in vessels "in pelvic area", total L hip arthroplasty, vein strippings, colonoscopy. Past Anesthesia/Blood Transfusion Reactions: No Reported Reaction Additional Past Anesthesia/Blood Transfusion Reaction / Comment(s): Pt has received blood in past without reaction. Smoking Status: Current every day smoker - Past Family History Mother Family Medical History: Coronary Artery Disease (CAD), Myocardial Infarction (VT), Vascular Disorder Additional Family Medical History / Comment(s): heart disease, peripheral vascular disease. Father Family Medical History: Diabetes Mellitus, Renal Disease Medications and Allergies Home Medications Medication Instructions Recorded Confirmed Type Atorvastatin [Lipitor] 80 mg PO HS 01/09/14 12/21/20 History Topiramate [Topamax] 25 mg PO BID 01/09/14 12/21/20 History Nortriptyline [Pamelor] 50 mg PO HS 08/15/19 12/21/20 History Omeprazole [PriLOSEC] 20 mg PO BID 08/15/19 12/21/20 History Aspirin 81 mg PO DAILY 30 Days #30 chew 08/26/19 12/21/20 Rx Loratadine 10 mg PO HS 10/30/19 12/21/20 History Metoprolol Succinate (ER) [Toprol 50 mg PO DAILY 02/29/20 12/21/20 History XL] Amiodarone [Cordarone] 200 mg PO DAILY tab 03/07/20 12/21/20 Rx Docusate [Colace] 100 mg PO HS 05/19/20 12/21/20 History Albuterol Nebulized [Ventolin 2.5 mg INHALATION RT-QID PRN 10/16/20 12/21/20 History Nebulized] Budesonide/Formoterol Fumarate 2 puff INHALATION RT-BID PRN 10/16/20 12/21/20 History [Symbicort 160-4.5 Mcg Inhaler] Multivitamins, Thera [Multivitamin 1 tab PO DAILY 10/16/20 12/21/20 History (formulary)] Tiotropium [place] [Spiriva 1 spray INHALATION RT-DAILY PRN 10/16/20 12/21/20 History Respimat] oxyCODONE-APAP 10-325MG [Percocet 1 tab PO Q6H PRN 10/16/20 12/21/20 History 10-325 mg] Pregabalin [Lyrica] 200 mg PO BID 11/21/20 12/21/20 History glipiZIDE [Glucotrol] 10 mg PO AC-BID 30 Days #60 tablet 11/25/20 12/21/20 Rx metFORMIN HCL 1,000 mg PO BID 30 Days #60 tab 11/25/20 12/21/20 Rx Warfarin Sodium 6 mg PO SUTH 12/21/20 12/21/20 History Warfarin [Coumadin] 3 mg PO [id number] 12/21/20 12/21/20 History Apixaban [Eliquis] 5 mg PO BID #60 tab 12/26/20 Rx Allergies Allergy/AdvReac Type Severity Reaction Status Date / Time baclofen Allergy Unknown Verified 12/21/20 16:06 Physical Exam Vitals: Vital Signs Temp Pulse Pulse Resp BP Pulse Ox 12/29/20 08:43 60 12/29/20 08:30 60 12/29/20 07:59 97.8 F 60 18 110/68 89 L 12/29/20 02:00 98.4 F 107 H 20 133/78 91 L 12/28/20 19:55 98.0 F 56 L 20 128/78 98 12/28/20 19:53 66 12/28/20 19:44 66 12/28/20 14:00 98.0 F 61 20 152/70 95 Intake and Output 12/28/20 12/29/20 12/29/20 22:59 06:59 14:59 Output Total 1300 1950 Balance -1300 -1950 Output: Urine 1300 1950 Other: Voiding Method Indwelling Catheter Indwelling Catheter Results 12/27/20 06:13 12/27/20 06:13 Coagulation 12/29/20 Range/Units 06:35 PT 25.6 H (9.0-12.0) sec Current Medications Generic Name Dose Route Start Last Admin Trade Name Freq PRN Reason Stop Dose Admin Albuterol Sulfate 2.5 mg 12/21/20 23:14 Albuterol Nebulized 2.5 Mg/3 Ml INHALATION RT-Q4H PRN Shortness Of Breath Or Wheezing Albuterol/Ipratropium 3 ml 12/22/20 08:00 12/29/20 08:30 Ipratropium-Albuterol 3 Ml Neb INHALATION 3 ml RT-QID HELENE Administration Atorvastatin Calcium 80 mg 12/22/20 21:00 12/28/20 21:04 Atorvastatin 80 Mg Tab PO 80 mg HS HELENE Administration Budesonide/Formoterol Fumarate 2 puff 12/22/20 10:12 12/29/20 08:30 Symbicort 160-4.5 Mcg Inhaler INHALATION 2 puff RT-BID PRN Administration Shortness Of Breath Docusate Sodium 100 mg 12/22/20 21:00 12/28/20 21:04 Docusate 100 Mg Cap PO Not Given HS HELENE Furosemide 40 mg 12/24/20 12:15 12/29/20 08:09 Furosemide 10 Mg/Ml 4 Ml Vial IV 40 mg Q12HR HELENE Administration Glipizide 10 mg 12/22/20 17:30 12/29/20 08:09 Glipizide 10 Mg Tab PO 10 mg AC-BID HELENE Administration Doxycycline Hyclate 100 mg/ 100 mls @ 100 mls/hr 12/26/20 15:30 12/28/20 21:04 Sodium Chloride IVPB 100 mls/hr Q12HR HELENE Administration Insulin Aspart 0 unit 12/22/20 12:30 12/29/20 08:09 Insulin Aspart (Novolog) 100 Unit/Ml Vial SQ 2 unit ACHS HELENE Administration Protocol Loratadine 10 mg 12/22/20 21:00 12/28/20 21:04 Loratadine 10 Mg Tab PO 10 mg HS HELENE Administration Metoprolol Succinate 50 mg 12/23/20 09:00 12/29/20 08:09 Metoprolol Succinate (Er) 50 Mg Tab.Er.24h PO 50 mg DAILY HELENE Administration Miscellaneous Information 1 each 12/21/20 23:14 Pneumonia Protocol Utilized 1 Each Misc PO ONCE PRN Per Protocol Miscellaneous Information 1 each 12/26/20 18:40 Warfarin Per Pharmacy MISCELLANE DIRECTED PRN Per Protocol Protocol Multi-Ingred Cream/Lotion/Oil/Oint 1 applic 12/23/20 10:00 12/28/20 07:46 Hydrophilic Cream 180 Gm Tube TOPICAL 1 applic DAILY HELENE Administration Multivitamins 1 each 12/23/20 09:00 12/29/20 08:09 Multivitamins, Thera 1 Each Tab PO 1 each DAILY HELENE Administration Nortriptyline HCl 50 mg 12/22/20 21:00 12/28/20 21:06 Nortriptyline 25 Mg Cap PO 50 mg HS HELENE Administration Oxycodone/Acetaminophen 1 each 12/26/20 23:56 12/29/20 08:10 Oxycodone-Apap 10-325mg 1 Each Tab PO 1 each ONCE PRN Administration Pain Oxycodone/Acetaminophen 1 each 12/27/20 14:34 12/28/20 21:05 Oxycodone-Apap 10-325mg 1 Each Tab PO 1 each Q4H PRN Administration Pain Pantoprazole Sodium 40 mg 12/22/20 21:00 12/29/20 08:09 Pantoprazole 40 Mg Tablet PO 40 mg BID HELENE Administration Prednisone 20 mg 12/29/20 09:00 12/29/20 08:09 Prednisone 20 Mg Tab PO 20 mg DAILY HELENE Administration Pregabalin 300 mg 12/23/20 21:00 12/29/20 08:09 Pregabalin 100 Mg Cap PO 300 mg BID HELENE Administration Topiramate 25 mg 12/22/20 21:00 12/29/20 08:09 Topiramate 25 Mg Tab PO 25 mg BID HELENE Administration Warfarin Sodium 3 mg 12/29/20 18:00 Warfarin 3 Mg Tab PO 12/29/20 18:01 ONCE@1800 ONE Intake and Output 12/28/20 12/29/20 12/29/20 22:59 06:59 14:59 Output Total 1300 1950 Balance -1300 -1950 Output: Urine 1300 1950 Other: Voiding Method Indwelling Catheter Indwelling Catheter 12/27/20 06:13 12/27/20 06:13
[2020-12-29] MEDS: HYDROPHILIC CREAM 180 GM TUBE TOPICAL SCH (10:57)
[2020-12-29] MEDS: DOXYCYCLINE 100 MG in SODIUM CHLORIDE 0.9% 100 ML IVPB SCH (10:57)
[2020-12-29 12:14] LABS: Glucose,Whole Blood 207 mg/dL (75-99)
--- NOTE | 2020-12-29 12:43 | P.PN ---
Subjective Progress Note Date: 12/29/20 Principal diagnosis: Acute exacerbation of CHF, and mild exacerbation of COPD This is a 65-year-old white male patient with history of multiple medical problems including COPD/emphysema, previous history of bilateral DVTs, and PEs on Coumadin, history of atrial fibrillation, diabetes mellitus type 2 with history of diabetic ulcer and osteomyelitis of left lower extremity status post above the knee amputation, hypertension, hyperlipidemia, peripheral vessel occlusive disease with previous femoral artery stenting, anxiety, history of IVC filter placement, and history of smoking. Patient presented to the emergency department on 12/21/2020 with complaints of scrotal swelling and pain and the patient was concerned about a possibility of a "blood clot" in his left side of the scrotum. Patient was reporting difficulty starting urine stream for several weeks. Denies any recent history of fever or chills, denied any cough, no chest congestion, no worsening shortness of breath. No chest pain, no nausea, no vomiting or diarrhea, no abdominal pain. No back pain, no pleurisy. 6 scrotal ultrasound showed a right epididymis that appeared somewhat hyperechoic, but abscess was not identified. Patient was diagnosed with scrotal cellulitis, and was started on antibiotics in the form of Unasyn. ID service has been consulted, patient also has a multiple decubitus ulcers on his buttock area. He is receiving local wound care. Chest x-ray showed vague increased opacity through the right lung. Follow-up chest x-ray showed patchy airspace disease and prominence of the interstitium bilaterally. Apparently patient did report some mild wheezing, and he was started on inhaled steroids, his chest x-ray was showing interstitial changes, and his proBNP was elevated at 1910 and was started on IV Lasix. His 2 sets up her calcitonin level were negative at 0.06 and 0.03. White count has not been significantly elevated, and most recent labs from 12/27/2020 shows a white count of 6.8, hemoglobin of 11.7, INR of 1.5, electrolytes and renal profile were unremarkable. Patient continues on IV Lasix at 40 mg every 12 hours, he is on Symbicort, he is on doxycycline and Unasyn. He is maintaining negative fluid balance, he is in -2.5 L over the last 24 hours. Echocardiogram has been completed showing normal left surgical systolic function with an EF of 55-60%, mild MR, mild TR, PA pressure of 35.6 mmHg. CTA chest has been completed showing no evidence of pulmonary embolism, he did show mediastinal and bronchial adenopathy, pulmonary emphysema, extensive intersti tial lung disease with the possibility of sarcoidosis. There was airspace disease or possibility of atelectasis of both lung bases, and small pleural effusions. The patient is resting in bed, comfortably on 4 L of oxygen his pulse ox is 97%, denies any shortness of breath, no wheezing, no cough or phlegm production. he remains on antibiotics, IV Lasix, and breathing treatments. On 12/29/2020 patient seen in follow-up on medical surgical floor, he is breathing comfortably, he is on 4 L of oxygen pulse ox is 91-98%, she maintains a negative fluid balance, he is in -3.2 L over last 24 hours, he continues on IV Lasix of 40 mg every 12 hours, he continues on nebulized bronchodilators. His IV steroids have been transitioned to oral prednisone. He is feeling better, patient has had no acute events overnight. He is being considered for discharge home today Objective - Vital Signs Vital signs: Vital Signs Temp 97.8 F 12/29/20 07:59 Pulse 60 12/29/20 08:43 Resp 18 12/29/20 07:59 BP 110/68 12/29/20 07:59 Pulse Ox 89 L 12/29/20 07:59 Intake & Output 12/28/20 12/29/20 12/29/20 18:59 06:59 18:59 Output Total 1300 1950 Balance -1300 -1950 Output: Urine 1300 1950 Other: Voiding Method Indwelling Catheter Indwelling Catheter Indwelling Catheter - Exam GENERAL EXAM: Alert, pleasant, 65-year-old white male, on 4 L of oxygen, resting in bed comfortable in no apparent distress. HEAD: Normocephalic/atraumatic. EYES: Normal reaction of pupils, equal size. Conjunctiva pink, sclera white. NOSE: Clear with pink turbinates. THROAT: No erythema or exudates. NECK: No masses, no JVD, no thyroid enlargement, no adenopathy. CHEST: No chest wall deformity. Symmetrical expansion. LUNGS: Equal air entry with no crackles, wheeze, rhonchi or dullness. CVS: Regular rate and rhythm, normal S1 and S2, no gallops, no murmurs, no rubs ABDOMEN: Soft, nontender. No hepatosplenomegaly, normal bowel sounds, no guarding or rigidity. EXTREMITIES: No clubbing, no edema, no cyanosis, 2+ pulses and upper and lower extremities. MUSCULOSKELETAL: Muscle strength and tone normal. Left [id number] amputation, stump is clean dry and intact SPINE: No scoliosis or deformity SKIN: No rashes. Sacral wounds, stage II, not examined, covered with dressings CENTRAL NERVOUS SYSTEM: Alert and oriented -3. No focal deficits, tone is normal in all 4 extremities. PSYCHIATRIC: Alert and oriented -3. Appropriate affect. Intact judgment and insight. - Labs CBC & Chem 7: 12/27/20 06:13 12/27/20 06:13 Labs: Abnormal Lab Results - Last 24 Hours (Table) 12/28/20 12/28/20 12/29/20 Range/Units 16:52 20:27 06:35 PT 25.6 H (9.0-12.0) sec INR 2.6 H (<1.2) POC Glucose (mg/dL) 384 H 374 H (75-99) mg/dL 12/29/20 12/29/20 Range/Units 07:35 12:13 PT (9.0-12.0) sec INR (<1.2) POC Glucose (mg/dL) 192 H 207 H (75-99) mg/dL Microbiology - Last 24 Hours (Table) 12/24/20 15:24 Blood Culture - Preliminary Blood No Growth after 96 hours Assessment and Plan Plan: Assessment: #1. Acute hypoxic respiratory failure related to mild exacerbation of COPD, acute exacerbation of diastolic CHF and history of COPD/emphysema, and underlying history of interstitial lung disease #2. Acute scrotal cellulitis #3. Patchy interstitial groundglass opacities throughout both lungs with the possibility of inflammatory changes or related to fluid overload #4. Mediastinal and bronchial lymphadenopathy, slightly more increased compared to most recent CT of the chest, from 07/21/2019, this could be related to underlying history of sarcoidosis, this will be followed on outpatient basis #5. Worsening interstitial lung disease, pulmonary fibrosis, possibly related to amiodarone use #6. History of COPD/emphysema, CTA chest showed bullous emphysema and extensive interstitial disease #7. Sacral decubitus ulcers, stage II #8. Former smoker #9. Diabetes mellitus type 2 #10. History of PVD with previous history of femoral artery stenting #11. Previous history of left foot osteomyelitis status post left above-knee amputation #12. Hypertension #13. Hyperlipidemia #14. Chronic persistent atrial fibrillation on Coumadin #15. History of bilateral DVTs and PE on Coumadin Plan: Patient is breathing comfortably Clinically improving Vital signs are stable Cardiology saw the patient, and their input was appreciated Amiodarone has been discontinued per cardiology for possibility of worsening effect on the pulmonary fibrosis Patient will need outpatient follow-up with Dr. Dr. Perez in the office in 7-10 days We'll need outpatient PFT to evaluate his pulmonary function in view of worsening pulmonary fibrosis on his chest x-ray and CT of the chest Otherwise stable for discharge from pulmonary perspective if has been cleared by medicine I performed a history & physical examination of the patient and discussed their management with my nurse practitioner, Stephanie Mendoza. I reviewed the nurse practitioner's note and agree with the documented findings and plan of care. Lung sounds are positive for diminished breath sounds. The findings and the impression was discussed with the patient. I attest to the documentation by the nurse practitioner. Time with Patient: Less than 30
--- NOTE | 2020-12-29 13:31 | PN ---
PROGRESS NOTE DATE OF SERVICE: 12/29/2020 REASON FOR FOLLOWUP: Scrotal cellulitis and groin area cutaneous candidiasis. INTERVAL HISTORY: The patient is afebrile. The patient is breathing comfortably. Patient denies having any chest pain. No shortness of breath. Occasional cough. No abdominal pain. Overall scrotal swelling and redness has resolved and no diarrhea. EXAMINATION: Blood pressure 110/68 with a pulse of 70. Temperature is 97.8. He is 99% on 4 L nasal cannula. General description is an elderly male lying in bed in no distress. Respiratory system: Unlabored breathing, decreased intensity of the breath sounds. No wheeze. Heart S1, S2. Regular rate and rhythm. Abdomen soft, no tenderness. Scrotal area swelling and redness has resolved. No drainage. LABORATORY DATA: DIAGNOSTIC IMPRESSION AND PLAN: 1. Patient with scrotal cellulitis overall improvement the patient's has resolved. Unasyn can be safely discontinued on discharge. 2. Patient with groin area cutaneous candidiasis. Local care with nystatin powder. 3. Positive blood culture multiple pathogens, likely contaminant. Repeat blood culture negative. MMODL / IJN: [id number] /
[2020-12-29 16:04] VITALS: BP 119/76; PULSE 65
[2020-12-29 16:56] LABS: Glucose,Whole Blood 351 mg/dL (75-99)
[2020-12-29] MEDS ORDERED: WARFARIN 3 MG TAB PO ONE (18:00)
--- NOTE | 2020-12-30 00:47 | P.PN ---
Subjective This is a pleasant 65 years old male with past medical history of GERD, hyperlipidemia, osteoarthritis, atrial fibrillation on Coumadin, history of CVA/TIA, diabetes mellitus, history of multiple DVT on the right leg and history of PE on Coumadin. COPD, uncontrolled diabetes, lupus anticoagulant. Presents on 12/21 for swollen scrotum of one-day duration with pain. Found to have scrotal cellulitis which is also shown on scrotal pelvic CT. Patient has been placed on antibiotics Unasyn per recommendation by infectious disease team. Also patient with some respiratory distress and tachypnea thought it secondary to acute diastolic CHF with ejection fraction more than 55-60% and patient is currently on IV Lasix 40 mg twice daily Patient proBNP increased at 174 from about 2 months ago to 1910 during this admission. Patient is lying in bed with some chest tightness and coughing with brown phlegm. He denies chest pain. Distal complaining of from right sided scrotal tenderness with no significant swelling or redness, area looks light pink. Patient CTA of the chest yesterday showed bullous emphysema with bilateral pleural effusion and patchy interstitial ground glass opacity throughout both lung swartz suspicious for sarcoidosis or pneumonia and there was no pulmonary embolism. While CT of the pelvis showing IVC filter with scrotal cellulitis Patient has uncontrolled diabetes with hemoglobin A1c is 60%. proCalcitonin is normal at 0.06. C-reactive protein is elevated at 7.0. Patient is currently covered with Unasyn. Also he is on IV Lasix Toda doxycycline and Solu-Medrol is added. Date of service is 12/28/2020 Patient cellulitis of the scrotum is still improving, he is needed and nystatin cream. He still needs oxygen therapy. He had an episode of hemoptysis while INR is 1.5, with car sales consultant pulmonary team tomorrow. Also he gets an extra doses of Coumadin. Infectious disease still on the case Objective - Vital Signs Vital signs: Vital Signs Temp 97.8 F 12/29/20 14:00 Pulse 64 12/29/20 15:23 Resp 18 12/29/20 14:00 BP 119/76 12/29/20 14:00 Pulse Ox 94 L 12/29/20 14:00 Intake & Output 12/29/20 12/29/20 12/30/20 06:59 18:59 06:59 Output Total 1950 1750 Balance -1949 -1749 Output: Urine 1949 1749 Other: Voiding Method Indwelling Catheter Indwelling Catheter - Exam GENERAL: The patient is alert and oriented x3, not in any acute distress. Well developed, well nourished. HEENT: Pupils are round and equally reacting to light. EOMI. No scleral icterus. No conjunctival pallor. Normocephalic, atraumatic. No pharyngeal erythema. No thyromegaly. CARDIOVASCULAR: S1 and S2 present. No murmurs, rubs, or gallops. PULMONARY: Chest is clear to auscultation, no wheezing or crackles. -ABDOMEN: Soft, nontender, nondistended, normoactive bowel sounds. No palpable organomegaly. Scrotum is with pinkish discoloration, no swollen MUSCULOSKELETAL: No joint swelling or deformity. -EXTREMITIES: No cyanosis, clubbing, or pedal edema. Status post old left AKA NEUROLOGICAL: Gross neurological examination did not reveal any focal deficits. SKIN: No rashes. no petechiae. - Labs CBC & Chem 7: 12/27/20 06:13 12/27/20 06:13 Labs: Abnormal Lab Results - Last 24 Hours (Table) 12/29/20 12/29/20 12/29/20 Range/Units 06:35 07:35 12:13 PT 25.6 H (9.0-12.0) sec INR 2.6 H (<1.2) POC Glucose (mg/dL) 192 H 207 H (75-99) mg/dL 12/29/20 Range/Units 16:55 PT (9.0-12.0) sec INR (<1.2) POC Glucose (mg/dL) 351 H (75-99) mg/dL Microbiology - Last 24 Hours (Table) 12/24/20 15:24 Blood Culture - Preliminary Blood No Growth after 120 hours Assessment and Plan Assessment: Acute scrotal cellulitis Acute COPD exacerbation, improved patchy interstitial ground glass opacity throughout both lung swartz . With mediastinal and bronchial lymphadenopathy measuring up to 2.5 cm Acute and chronic diastolic CHF with ejection fraction more than 55-60% Hemoptysis secondary to above and coagulopathy Coagulopathy secondary to Coumadin Atrial fibrillation with rate controlled, on Coumadin. The kidney disease, stage II. Weakness mellitus with hyperglycemia and A1c of 16% Positive blood culture, most likely contamination. History of multiple right leg DVTs and bilateral pulmonary embolism History of left AKA Plan: This is a pleasant 65 years old male who presents with scrotal cellulitis which is been on Unasyn per ID team recommendation. Improving respiratory distress secondary to CHF and COPD. Continue with IV Lasix, with fluid restriction, Solu-Medrol and doxycycline to treat his elements of COPD with possible interstitial edema. Patient has bilateral pulmonary ST with some hemoptysis, patient will need close monitoring for now Continue with Coumadin and follow up INR. He got 7 mg of Coumadin tonight comp ared 50 mg yesterday Labs and medication were reviewed.. Continue same treatment. Continue with sy mptomatic treatment. Resume home medication. Monitor lytes and vitals. DVT and GI prophylaxis. Further recommendations as per clinical course of the patient DVT prophylaxis: Coumadin GI Prophylaxis: Ppi PT/OT: Pending Prognosis is guarded
--- NOTE | 2020-12-30 00:55 | P.DS ---
Providers Date of admission: 12/21/20 23:31 Attending physician: Cindy Juarez Consults: 12/22/20 12:21 Consult Physician Routine Consulting Provider: Sherman Ordoñez Consult Reason/Comments: Scrotal Cellulitis Do you want consulting provider notified?: Yes 12/28/20 07:41 Consult Physician Urgent Consulting Provider: Max Perez Reason/Comments: hempotysis, abnormal CT Do you want consulting provider notified?: Yes Primary care physician: Kristin Chang [facility] Course: Diagnoses: -Acute scrotal cellulitis, completely resolved and patient does not need antibiotics upon discharge. I discussed the case with ID tape. Discharged on topical nystatin for fungal infection in the area only -Acute COPD exacerbation, improved -patchy interstitial ground glass opacity throughout both lung swartz . With mediastinal and bronchial lymphadenopathy measuring up to 2.5 cm, evaluated by anatomical embalmer, he has worsening fibrosis, amiodarone discontinued by toolroom clerk team and patient will follow up with Dr. Perez upon discharge -Acute and chronic diastolic CHF with ejection fraction more than 55-60% -Hemoptysis secondary to above and coagulopathy -Coagulopathy secondary to Coumadin -Atrial fibrillation with rate controlled, on Coumadin. -The kidney disease, stage II. -Weakness mellitus with hyperglycemia and A1c of 16% -Positive blood culture, most likely contamination. -History of multiple right leg DVTs and bilateral pulmonary embolism -History of left AKA Hospital course: This is a pleasant 65 years old male with past medical history of GERD, hyperlipidemia, osteoarthritis, atrial fibrillation on Coumadin, history of CVA/TIA, diabetes mellitus, history of multiple DVT on the right leg and history of PE on Coumadin. COPD, uncontrolled diabetes, lupus anticoagulant. Presents on 12/21 for swollen scrotum of one-day duration with pain. Found to have scrotal cellulitis which is also shown on scrotal pelvic CT. Patient has been placed on antibiotics Unasyn per recommendation by infectious disease team. He showed interval improvement , patient finish his course of Unasyn and he does not need any more antibiotics upon discharge. Scrotum infection is completely resolved. Which on nystatin orally per ID team recommendation. Pulmonary evaluated the patient for worsening fibrosis, amiodarone was discontinued with by toolroom clerk to help decrease pulmonary fibrosis. Patient will follow up with Dr. Perez his anatomical embalmer as an outpatient on 01/22 (this on his appointment available) Patient INR was more than 5 on admission, he used to take Coumadin for A. fib 3 mg except on Monday and he takes 6 mg. His INR today is therapeutic at 2.6. I discussed the case with the pharmacy. Patient will discharge on Coumadin 3 mg daily for 7 days of each week. Patient will check his INR with home health care and referred to Dr. Yeager. I called Dr. Chang and discussed the case with him including from an indication for follow-up with Dr. Perez and follow up INR and adjust dose of Coumadin accordingly, and he kindly took note of these recommendation Patient home oxygen evaluation is assessed and he will be discharged on home oxygen. Patient was cleared for discharge by all consultants including ID team, pulmonary and toolroom clerk. Problems and management plan were discussed with the patient and he verbalized understanding and acceptance Patient was found stable and can be discharged home however he needs follow-up as an outpatient. Patient was instructed to follow up with PCP Dr. Yeager within one week and patient agrees Appointment made for him on 01/06. Patient also was instructed to follow up with anatomical embalmer Dr. Perez and 01/22 and he agrees with this appointment Follow up with his toolroom clerk Dr. Heaton in 1-2 weeks and he agrees to make his an appointment. Patient had Montero catheter which he refused to take out, then referred him to urologist Dr. Menenedz as an outpatient and he agrees Physical exam Gen: patient is a AAOx3, no distress CVS: S1-S2, RRR, no murmur Lungs: B/L CTA, no wheezing Abdomen: soft, no distention, no tenderness, positive bowel sounds. Scrotum is improved, no redness or swelling or tenderness. He has some sylvia infection in the skin folds Extremity: no leg edema or induration. Left AKA Time spent more than 35 minutes Patient Condition at Discharge: Serious Plan - Discharge Summary Discharge Rx Participant: No New Discharge Prescriptions: New Warfarin [Coumadin] 3 mg PO DAILY #30 tab Furosemide [Lasix] 40 mg PO DAILY #30 tablet Nystatin 100,000 Unit/gm Powd [Mycostatin Powder] 1 applic TOPICAL BID 7 Days #30 gm predniSONE 10 mg PO DIRECTED #7 tab Continue Atorvastatin [Lipitor] 80 mg PO HS Topiramate [Topamax] 25 mg PO BID Omeprazole [PriLOSEC] 20 mg PO BID Nortriptyline [Pamelor] 50 mg PO HS Aspirin 81 mg PO DAILY 30 Days #30 chew Loratadine 10 mg PO HS Metoprolol Succinate (ER) [Toprol XL] 50 mg PO DAILY Docusate [Colace] 100 mg PO HS Tiotropium [place] [Spiriva Respimat] 1 spray INHALATION RT-DAILY PRN PRN Reason: Shortness Of Breath Pregabalin [Lyrica] 200 mg PO BID metFORMIN HCL 1,000 mg PO BID 30 Days #60 tab Budesonide/Formoterol Fumarate [Symbicort 160-4.5 Mcg Inhaler] 2 puff INHALATION RT-BID PRN PRN Reason: Shortness Of Breath Albuterol Nebulized [Ventolin Nebulized] 2.5 mg INHALATION RT-QID PRN PRN Reason: Shortness Of Breath Multivitamins, Thera [Multivitamin (formulary)] 1 tab PO DAILY oxyCODONE-APAP 10-325MG [Percocet 10-325 mg] 1 tab PO Q6H PRN PRN Reason: Pain glipiZIDE [Glucotrol] 10 mg PO AC-BID 30 Days #60 tablet Discontinued Amiodarone [Cordarone] 200 mg PO DAILY tab Warfarin Sodium 6 mg PO SUTH Warfarin [Coumadin] 3 mg PO [id number] Discharge Medication List Atorvastatin [Lipitor] 80 mg PO HS 01/09/14 [History] Topiramate [Topamax] 25 mg PO BID 01/09/14 [History] Nortriptyline [Pamelor] 50 mg PO HS 08/15/19 [History] Omeprazole [PriLOSEC] 20 mg PO BID 08/15/19 [History] Aspirin 81 mg PO DAILY 30 Days #30 chew 08/26/19 [Rx] Loratadine 10 mg PO HS 10/30/19 [History] Metoprolol Succinate (ER) [Toprol XL] 50 mg PO DAILY 02/29/20 [History] Docusate [Colace] 100 mg PO HS 05/19/20 [History] Albuterol Nebulized [Ventolin Nebulized] 2.5 mg INHALATION RT-QID PRN 10/16/20 [History] Budesonide/Formoterol Fumarate [Symbicort 160-4.5 Mcg Inhaler] 2 puff INHALATION RT-BID PRN 10/16/20 [History] Multivitamins, Thera [Multivitamin (formulary)] 1 tab PO DAILY 10/16/20 [History] Tiotropium [place] [Spiriva Respimat] 1 spray INHALATION RT-DAILY PRN 10/16/20 [History] oxyCODONE-APAP 10-325MG [Percocet 10-325 mg] 1 tab PO Q6H PRN 10/16/20 [History] Pregabalin [Lyrica] 200 mg PO BID 11/21/20 [History] glipiZIDE [Glucotrol] 10 mg PO AC-BID 30 Days #60 tablet 11/25/20 [Rx] metFORMIN HCL 1,000 mg PO BID 30 Days #60 tab 11/25/20 [Rx] Furosemide [Lasix] 40 mg PO DAILY #30 tablet 12/29/20 [Rx] Nystatin 100,000 Unit/gm Powd [Mycostatin Powder] 1 applic TOPICAL BID 7 Days #30 gm 12/29/20 [Rx] Warfarin [Coumadin] 3 mg PO DAILY #30 tab 12/29/20 [Rx] predniSONE 10 mg PO DIRECTED #7 tab 12/29/20 [Rx] Follow up Appointment(s)/Referral(s): [facility],Equipment [NON-STAFF] - Kristin Chang DO [Primary Care Provider] - 01/06/21 1:20 pm (make sure to bring discharge paperwork to appointment ) Max Perez DO [Doctor of Osteopathic Medicine] - 01/22/21 2:45 pm (Sandra Lamas ASSISTANT PROFESSOR OF SOCIOLOGY) [facility], [NON-STAFF] - Joshua Heaton MD [STAFF PHYSICIAN] - 2 Weeks (toolroom clerk) Kwame Hernandez MD [STAFF PHYSICIAN] - 2 Weeks (urologist , for managment of your montero catheter) Ambulatory/Diagnostic Orders: Prothrombin Time INR [LAB.AMB] Location: None Selected Patient Instructions/Handouts: Cellulitis (GEN) Activity/Diet/Wound Care/Special Instructions: Heart healthy diet with fluid restriction. With low carbohydrate diet 1800 kcal per day Also recommend fluid restriction and salt restriction Continue with indwelling Montero catheter and follow-up with urology outpatient in 2 weeks, do not attempt to remove catheter on your own as it will cause trauma Activity is restricted till you see your doctors recommend to check your INR every 2-3 days. Your goal INR is 2-3. hold Coumadin [warfarin] if your INR is more than 3 Discharge Disposition: HOME WITH HOME HEALTH SERVICES
== END 2020-12-29 18:21 | disposition home health service (06) | DRG 727 ==
LOC: EC 16:04 → 4SSUR 23:31
PROVIDERS: ADMIT Internal Medicine; ATTEND Internal Medicine
DX: N49.2 Inflammatory disorders of scrotum (principal); I50.33 Acute on chronic diastolic (congestive) heart failure; J96.01 Acute respiratory failure with hypoxia; D68.62 Lupus anticoagulant syndrome; I13.0 Hypertensive heart and chronic kidney disease with heart failure and stage 1 through stage 4 chronic kidney disease, or unspecified chronic kidney disease; I48.19 Other persistent atrial fibrillation; J98.11 Atelectasis; L97.911 Non-pressure chronic ulcer of unspecified part of right lower leg limited to breakdown of skin; R04.2 Hemoptysis; D68.32 Hemorrhagic disorder due to extrinsic circulating anticoagulants; D86.9 Sarcoidosis, unspecified; E11.40 Type 2 diabetes mellitus with diabetic neuropathy, unspecified; E11.51 Type 2 diabetes mellitus with diabetic peripheral angiopathy without gangrene; E11.622 Type 2 diabetes mellitus with other skin ulcer; E11.65 Type 2 diabetes mellitus with hyperglycemia; E11.22 Type 2 diabetes mellitus with diabetic chronic kidney disease; N18.2 Chronic kidney disease, stage 2 (mild); L89.312 Pressure ulcer of right buttock, stage 2; Z20.822 Contact with and (suspected) exposure to COVID-19; Z79.84 Long term (current) use of oral hypoglycemic drugs; L89.152 Pressure ulcer of sacral region, stage 2; L98.412 Non-pressure chronic ulcer of buttock with fat layer exposed; J84.10 Pulmonary fibrosis, unspecified; I27.21 Secondary pulmonary arterial hypertension; Z89.612 Acquired absence of left leg above knee; J43.9 Emphysema, unspecified; J45.909 Unspecified asthma, uncomplicated; I25.10 Atherosclerotic heart disease of native coronary artery without angina pectoris; Z87.01 Personal history of pneumonia (recurrent); B37.2 Candidiasis of skin and nail; T45.515A Adverse effect of anticoagulants, initial encounter; E78.5 Hyperlipidemia, unspecified; I08.1 Rheumatic disorders of both mitral and tricuspid valves; R32 Unspecified urinary incontinence; Z95.828 Presence of other vascular implants and grafts; M19.90 Unspecified osteoarthritis, unspecified site; F17.210 Nicotine dependence, cigarettes, uncomplicated; Z90.49 Acquired absence of other specified parts of digestive tract; Z90.89 Acquired absence of other organs; I25.2 Old myocardial infarction; Z79.51 Long term (current) use of inhaled steroids; Z79.82 Long term (current) use of aspirin; Z79.899 Other long term (current) drug therapy; Z82.49 Family history of ischemic heart disease and other diseases of the circulatory system; Z83.3 Family history of diabetes mellitus; Z86.711 Personal history of pulmonary embolism; Z86.718 Personal history of other venous thrombosis and embolism; Z79.01 Long term (current) use of anticoagulants; Z86.73 Personal history of transient ischemic attack (TIA), and cerebral infarction without residual deficits; Z96.642 Presence of left artificial hip joint; Z99.3 Dependence on wheelchair; Z86.14 Personal history of Methicillin resistant Staphylococcus aureus infection; Z88.8 Allergy status to other drugs, medicaments and biological substances
CPT/HCPCS: 36415; 71045; 71046; 71275; 72193; 76870; 80048; 80053; 83605; 83880; 84145; 85025; 85027; 85610; 85730; 86140; 87040; 87070; 87205; 87635; 93005; 93306; 93975; 94640; 94760; 96361; 96365; 96375; 99285

== ENCOUNTER 2021-06-02 09:01 | Inpatient (IN) | payer MEDICARE ==
--- NOTE | 2021-06-02 09:42 | ED ---
General Adult HPI - General Chief complaint: Altered Mental Status Stated complaint: AMS/Infected Rt Leg Time Seen by Provider: 06/02/21 09:15 Source: patient, RN notes reviewed, old records reviewed Mode of arrival: wheelchair - History of Present Illness Initial comments: 66-year-old male presents for evaluation of right lower extremity infection, swelling, purulent drainage from multiple blisters. The patient is alert and oriented 3. He initially does not want any evaluation and treatment. He is accompanied by his daughter who states that he's been acting quite agitated and erratic. However the patient does have history of this behavior. He is alert and oriented at the time my evaluation. He does allow for some initial testing of his infection. He is noncompliant with the history and physical exam. He does not allow exam of the abdomen or the chest. He does allow me to examine his leg only. - Related Data Home Medications Medication Instructions Recorded Confirmed Atorvastatin [Lipitor] 80 mg PO HS 01/09/14 12/21/20 Topiramate [Topamax] 25 mg PO BID 01/09/14 12/21/20 Nortriptyline [Pamelor] 50 mg PO HS 08/15/19 12/21/20 Omeprazole [PriLOSEC] 20 mg PO BID 08/15/19 12/21/20 Loratadine 10 mg PO HS 10/30/19 12/21/20 Metoprolol Succinate (ER) [Toprol 50 mg PO DAILY 02/29/20 12/21/20 XL] Docusate [Colace] 100 mg PO HS 05/19/20 12/21/20 Albuterol Nebulized [Ventolin 2.5 mg INHALATION RT-QID PRN 10/16/20 12/21/20 Nebulized] Budesonide/Formoterol Fumarate 2 puff INHALATION RT-BID PRN 10/16/20 12/21/20 [Symbicort 160-4.5 Mcg Inhaler] Multivitamins, Thera [Multivitamin 1 tab PO DAILY 10/16/20 12/21/20 (formulary)] Tiotropium [place] [Spiriva 1 spray INHALATION RT-DAILY PRN 10/16/20 12/21/20 Respimat] oxyCODONE-APAP 10-325MG [Percocet 1 tab PO Q6H PRN 10/16/20 12/21/20 10-325 mg] Pregabalin [Lyrica] 200 mg PO BID 11/21/20 12/21/20 Previous Rx's Medication Instructions Recorded Aspirin 81 mg PO DAILY 30 Days #30 chew 08/26/19 glipiZIDE [Glucotrol] 10 mg PO AC-BID 30 Days #60 tablet 11/25/20 metFORMIN HCL [Glucophage] 1,000 mg PO BID 30 Days #60 tab 11/25/20 Furosemide [Lasix] 40 mg PO DAILY #30 tablet 12/29/20 Nystatin 100,000 Unit/gm Powd 1 applic TOPICAL BID 7 Days #30 gm 12/29/20 [Mycostatin Powder] Warfarin [Coumadin] 3 mg PO DAILY #30 tab 12/29/20 predniSONE 10 mg PO DIRECTED #7 tab 12/29/20 Allergies Allergy/AdvReac Type Severity Reaction Status Date / Time baclofen Allergy Unknown Verified 06/02/21 09:14 Review of Systems ROS Statement: Those systems with pertinent positive or pertinent negative responses have been documented in the HPI. ROS Other: All systems not noted in ROS Statement are negative. Past Medical History Past Medical History: Atrial Fibrillation, Asthma, COPD, CVA/TIA, Diabetes Mellitus, Deep Vein Thrombosis (DVT), GERD/Reflux, Hyperlipidemia, Hypertension, Neurologic Disorder, Osteoarthritis (OA), Pneumonia, Pulmonary Embolus (PE), Skin Disorder, Vascular Disorder Additional Past Medical History / Comment(s): Pt recently admitted to [facility] on 11/20/20 with hyperkalemia, hyperglycemia, uncontrolled diabetes. Other hx: Lupus anticoagulant, DVTs bilateral legs, PEs bilateral lungs, pt has zina filter, L AKA/wheelchair bound, NIDDM type II, neuropathy bilateral hands, current wound R buttock and L anterior lower leg, TIAs, pneumothorax, past migraines, chronic low back pain, R leg edema at times, varicosities. History of Any Multi-Drug Resistant Organisms: MRSA Date of last positivie culture/infection: 02/28/20 MDRO Source:: MRSA FOOT Past Surgical History: Adenoidectomy, Appendectomy, Tonsillectomy Additional Past Surgical History / Comment(s): 1980s Zina filter, stents in vessels "in pelvic area", total L hip arthroplasty, vein strippings, col onoscopy. left leg amputation Past Anesthesia/Blood Transfusion Reactions: No Reported Reaction Additional Past Anesthesia/Blood Transfusion Reaction / Comment(s): Pt has received blood in past without reaction. Past Psychological History: No Psychological Hx Reported Smoking Status: Current every day smoker Past Alcohol Use History: None Reported Past Drug Use History: None Reported - Past Family History Mother Family Medical History: Coronary Artery Disease (CAD), Myocardial Infarction ( [place]), Vascular Disorder Additional Family Medical History / Comment(s): heart disease, peripheral vascular disease. Father Family Medical History: Diabetes Mellitus, Renal Disease General Exam - General Exam Comments Initial Comments: Patient does not allow for complete exam. General appearance: alert, in no apparent distress Head exam: Present: atraumatic, normocephalic Eye exam: Present: normal appearance ENT exam: Present: mucous membranes moist Neck exam: Present: full ROM Respiratory exam: Absent: respiratory distress Extremities exam: Present: other (Left AKA, right lower extremity, there is no bulla with purulent drainage. Mild erythema, no tenderness, no crepitus) Neurological exam: Present: alert, oriented X3 Psychiatric exam: Present: agitated Skin exam: Present: warm, dry Course Vital Signs 06/02/21 09:10 Temperature 97.1 F L Pulse Rate 66 Respiratory 18 Rate Blood Pressure 132/62 O2 Sat by Pulse 93 L Oximetry Medical Decision Making - Medical Decision Making 66-year-old male with right lower leg infection. There is multiple areas of purulent drainage and surrounding cellulitis. The patient is afebrile and nontoxic appearing with stable vitals. X-rays consistent with cellulitis without a year or soft tissue gas. Patient is noncompliant with medications. His family member do indicate that he will likely need placement. He is not taking his medications as prescribed. He will be admitted for IV antibiotics. Initial dose of recycle driver in the emergency department. Case discussed with [facility]. - Lab Data Result diagrams: 06/02/21 09:45 06/02/21 09:45 Lab Results 06/02/21 06/02/21 06/02/21 Range/Units 09:45 09:45 09:45 WBC 9.4 (3.8-10.6) k/uL RBC 4.49 (4.30-5.90) m/uL Hgb 12.6 L (13.0-17.5) gm/dL Hct 39.6 (39.0-53.0) % MCV 88.1 (80.0-100.0) fL MCH 28.1 (25.0-35.0) pg MCHC 31.8 (31.0-37.0) g/dL RDW 17.1 H (11.5-15.5) % Plt Count 287 (150-450) k/uL MPV 7.9 Neutrophils % 76 % Lymphocytes % 15 % Monocytes % 5 % Eosinophils % 2 % Basophils % 0 % Neutrophils # 7.1 (1.3-7.7) k/uL Lymphocytes # 1.4 (1.0-4.8) k/uL Monocytes # 0.5 (0-1.0) k/uL Eosinophils # 0.2 (0-0.7) k/uL Basophils # 0.0 (0-0.2) k/uL Hypochromasia Slight Anisocytosis Slight Sodium 138 (137-145) mmol/L Potassium 4.9 (3.5-5.1) mmol/L Chloride 110 H (98-107) mmol/L Carbon Dioxide 19 L (22-30) mmol/L Anion Gap 9 mmol/L BUN 24 H (9-20) mg/dL Creatinine 1.11 (0.66-1.25) mg/dL Est GFR (CKD-EPI)AfAm 81 (>60 ml/min/1.73 sqM) Est GFR (CKD-EPI)NonAf 70 (>60 ml/min/1.73 sqM) Glucose 99 (74-99) mg/dL Plasma Lactic Acid Dennis 1.1 (0.7-2.0) mmol/L Calcium 9.0 (8.4-10.2) mg/dL Total Bilirubin 0.5 (0.2-1.3) mg/dL AST 24 (17-59) U/L ALT 16 (4-49) U/L Alkaline Phosphatase 137 H (38-126) U/L Total Protein 7.1 (6.3-8.2) g/dL Albumin 3.8 (3.5-5.0) g/dL Disposition Clinical Impression: At risk for readmission to hospital, Nonhealing ulcer of right lower extremity limited to breakdown of skin, Cellulitis Disposition: ADMITTED IP TO THIS HOSP Condition: Stable Is patient prescribed a controlled substance at d/c from ED?: No Referrals: Kristin Emery DO [Primary Care Provider] - 1-2 days Decision to Admit Reason: Admit from EC Decision Date: 06/02/21 Decision Time: 11:33
[2021-06-02 10:12] LABS: Anisocytosis Slight; Basophils % (A) 0 %; Eosinophils # (A) 0.2 k/uL (0-0.7); Eosinophils % (A) 2 %; HCT 39.6 % (39.0-53.0); HGB 12.6 gm/dL (13.0-17.5); Hypochromasia Slight; Lymphocytes # (A) 1.4 k/uL (1.0-4.8); Lymphocytes % (A) 15 %; MCH 28.1 pg (25.0-35.0); MCHC 31.8 g/dL (31.0-37.0); MCV 88.1 fL (80.0-100.0); Mean Platelet Volume 7.9; Monocytes # (A) 0.5 k/uL (0-1.0); Monocytes % (A) 5 %; Neutrophils # (A) 7.1 k/uL (1.3-7.7); Neutrophils % (A) 76 %; Platelet Count 287 k/uL (150-450); RBC 4.49 m/uL (4.30-5.90); RDW 17.1 % (11.5-15.5); WBC 9.4 k/uL (3.8-10.6)
--- NOTE | 2021-06-02 10:30 | XR ---
Right leg HISTORY: Infection Frontal and lateral views of the right leg on 4 images There is lucency within the soft tissues, soft tissue swelling. No periostitis to suggest osteomyelit is. Small suprapatellar joint effusion is noted incidentally. Plantar calcaneal spur is noted, there are overlying artifacts. No fracture or dislocation. Bone mineralization is reduced. Marginal spurrin g present tricompartmentally within the knee, there is medial compartment narrowing. Distal leg is no t included on the exam on the frontal view. Soft tissue calcifications may be phleboliths. IMPRESSION: Correlate for edema, cellulitis. Limitations as described. Osteoarthritis.
[2021-06-02 10:42] LABS: Albumin 3.8 g/dL (3.5-5.0); Potassium 4.9 mmol/L (3.5-5.1); Total Bilirubin 0.5 mg/dL (0.2-1.3); Total Protein 7.1 g/dL (6.3-8.2)
[2021-06-02] MEDS ORDERED: cefTRIAXone IN SWFI 1,000 MG/10 ML SYRINGE IVP STA (11:29)
[2021-06-02] MEDS ORDERED: SODIUM CHLORIDE 0.9% 500 ML 500 ML IV ONE (11:29)
[2021-06-02] MEDS ORDERED: VANCOMYCIN IV PER PHARMACY 1 EACH MISC MISCELLANE PRN (11:30)
[2021-06-02] MEDS ORDERED: ACETAMINOPHEN TAB 325 MG TAB PO PRN (11:31)
[2021-06-02] MEDS ORDERED: NALOXONE 0.4 MG/ML 1 ML VIAL IV PRN (11:31)
[2021-06-02] MEDS: SODIUM CHLORIDE 0.9% 1,000 ML IV SCH (12:18)
[2021-06-02] MEDS ORDERED: VANCOMYCIN 2,250 MG in SODIUM CHLORIDE 0.9% 500 ML 500 ML IVPB ONE (12:30)
[2021-06-02] MEDS ORDERED: ALBUTEROL NEBULIZED 2.5 MG/3 ML INHALATION PRN (15:26)
[2021-06-02] MEDS ORDERED: WARFARIN 3 MG TAB PO SCH (15:30)
[2021-06-02] MEDS: PANTOPRAZOLE 40 MG TABLET PO SCH ×2 (16:02→17:41)
--- NOTE | 2021-06-02 16:47 | HP ---
HISTORY AND PHYSICAL DATE OF SERVICE: 06/02/2021 CHIEF COMPLAINT: Change in mental status. HISTORY OF PRESENT ILLNESS: This 66-year-old gentleman with a past medical history of atrial fibrillation, asthma, COPD, CVA, diabetes mellitus, type 2, DVT, history of right above-knee amputation, history of MRSA, being followed by Dr. Emery in the outpatient setting was noted to have significant infection of the right lower extremity and there are some purulent discharge in multiple areas. The patient came to [facility] and was admitted for evaluation and treatment. The daughter who is the patient is reporting that the patient is quite agitated and erratic also. There is no history of fever, rigors or chills. No history of headache, loss of consciousness, seizures. PAST MEDICAL HISTORY: History of atrial fibrillation, asthma, COPD, CAD, CVA, TIA, history of DVT, GERD, hypertension, hyperlipidemia, history of left above-knee amputation and [place] filter. MEDICATIONS: Prior to admission home medications are: Spiriva, Colace, Percocet, multivitamins, Lasix, Symbicort, aspirin, metformin, Lyrica, Topamax, Prilosec; dose and other medications reviewed. ALLERGIES: BACLOFEN. FAMILY HISTORY: History of CAD, myocardial infarction, in the family. SOCIAL HISTORY: Previous history of smoking. REVIEW OF SYSTEMS: ENT: No diminished vision. No diminished hearing. CARDIOVASCULAR system: No angina or palpitations. RESPIRATORY: As mentioned earlier. GI: As mentioned earlier. : No dysuria. NERVOUS SYSTEM: No numbness or weakness. ALLERGY/IMMUNOLOGY: No asthma or hayfever. MUSCULOSKELETAL: As mentioned earlier. HEMATOLOGY/ONCOLOGY: No history of anemia. ENDOCRINE: As mentioned earlier. CONSTITUTIONAL: As mentioned earlier DERMATOLOGY: Negative. RHEUMATOLOGY: Negative. PSYCHIATRIC: As mentioned earlier. PHYSICAL EXAMINATION: Alert and oriented times three. Pulse 66, blood pressure 130/60, respiration 18, temperature 97.1, pulse ox 93% on room air. HEENT is conjunctivae normal. NECK: No JVD. CARDIOVASCULAR: S1, S2 muffled. RESPIRATION: Breath sounds diminished in the bases. A few scattered rhonchi and crackles. Expiratory wheezing also present. ABDOMEN: Soft, nontender. LEGS: Significant cellulitis and infection present. NERVOUS SYSTEM: Higher functions as mentioned. Moves all four limbs. No focal motor or sensory deficits. LYMPHATICS: No lymph nodes palpable in the neck, axillae or groin. SKIN: No ulcer, no rashes and no bleeding. JOINTS: No active deforming arthropathy. LABS: WBC 9.4 and hemoglobin 12.6, sodium 130, potassium 4.2. ASSESSMENT: 1. Acute right leg cellulitis with failure of outpatient treatment. 2. Change in mental status, acute metabolic encephalopathy. 3. History of left above-knee amputation. 4. History of atrial fibrillation. 5. Asthma. 6. History of chronic obstructive pulmonary disease. 7. Cerebrovascular accident/transient ischemic attack. 8. Diabetes type 2. 9. History of deep vein thrombosis. 10.Gastroesophageal reflux disease. 11.Hypertension. 12.Hyperlipidemia. 13.History of degenerative joint disease. 14.History of pneumonia. 15.History of pulmonary embolism. 16.History of vascular disorder. 17.History of hyperkalemia. 18.History of lupus and. 19.History of deep vein thromboses bilateral legs. 20.History of pulmonary embolism. 21.History of [place] filter. 22.History of above knee amputation. 23.Wheelchair bound. 24.Peripheral neuropathy bilateral hands. 25.History of transient ischemic attack. 26.History of MRSA. 27.History of adenoidectomy. 28.History of appendectomy. 29.History of tonsillectomy. 30.Remote history of nicotine dependence. 31.Obesity with body mass of 36.5. 32.FULL CODE. RECOMMENDATIONS AND DISCUSSION: This 66-year-old gentleman who presented with multiple complex medical issues, we will monitor the patient closely, continue the current medications, and symptomatic treatment. Otherwise at this time broad spectrum IV antibiotics. Vancomycin will be initiated and closely follow with Dr. Ordoñez also from Infectious Disease. PT/OT evaluation possibly and continue to monitor, evaluate the home situation. Possible ECF rehab. The patient has significant gait dysfunction and other difficulties as mentioned earlier. Further recommendations to follow. MMODL / IJN: [id number] / [id number]
[2021-06-02] MEDS: AMIODARONE 200 MG TAB PO SCH ×2 (16:55→20:09)
[2021-06-02] MEDS: SYMBICORT 160-4.5 MCG INHALER INHALATION SCH (19:56)
[2021-06-02] MEDS: ATORVASTATIN 80 MG TAB PO SCH (20:08)
[2021-06-02] MEDS: LORATADINE 10 MG TAB PO SCH (20:08)
[2021-06-02] MEDS: DOCUSATE 100 MG CAP PO SCH (20:08)
[2021-06-02] MEDS: metFORMIN 500 MG TAB PO SCH (20:08)
[2021-06-02] MEDS: NORTRIPTYLINE 25 MG CAP PO SCH (20:08)
[2021-06-02] MEDS: PREGABALIN 100 MG CAP PO SCH (20:09)
[2021-06-02] MEDS: TOPIRAMATE 25 MG TAB PO SCH (20:09)
[2021-06-02] MEDS: MORPHINE SULFATE 4 MG/ML SYRINGE IV PRN (21:19)
[2021-06-03] MEDS: MORPHINE SULFATE 4 MG/ML SYRINGE IV PRN ×2 (00:32→06:00)
[2021-06-03] MEDS: SODIUM CHLORIDE 0.9% 1,000 ML IV SCH ×2 (04:12→15:55)
[2021-06-03] MEDS: VANCOMYCIN 2,000 MG in SODIUM CHLORIDE 0.9% 500 ML 500 ML IVPB SCH ×2 (04:12→21:12)
[2021-06-03 07:13] LABS: Glucose,Whole Blood 65 mg/dL (75-99)
[2021-06-03 07:14] LABS: Anisocytosis Slight; Basophils % (A) 0 %; Eosinophils # (A) 0.2 k/uL (0-0.7); Eosinophils % (A) 3 %; HCT 37.2 % (39.0-53.0); HGB 11.6 gm/dL (13.0-17.5); Hypochromasia Moderate; Lymphocytes % (A) 18 %; MCH 28.3 pg (25.0-35.0); MCHC 31.1 g/dL (31.0-37.0); MCV 90.9 fL (80.0-100.0); Mean Platelet Volume 7.9; Monocytes # (A) 0.5 k/uL (0-1.0); Monocytes % (A) 8 %; Neutrophils % (A) 68 %; Platelet Count 192 k/uL (150-450); RBC 4.09 m/uL (4.30-5.90); RDW 16.9 % (11.5-15.5); WBC 5.9 k/uL (3.8-10.6)
[2021-06-03 07:17] LABS: INR 1.4 (<1.2); Prothrombin Time 14.5 sec (9.0-12.0)
[2021-06-03 07:35] LABS: Glucose,Whole Blood 65 mg/dL (75-99)
[2021-06-03 07:40] LABS: African American GFR (CKD) 86 (>60 ml/min/1.73 sqM); Anion Gap 7 mmol/L; Blood Urea Nitrogen 18 mg/dL (9-20); Calcium 8.3 mg/dL (8.4-10.2); Carbon Dioxide 16 mmol/L (22-30); Chloride 112 mmol/L (98-107); Glucose 61 mg/dL (74-99); Non-African American GFR(CKD) 74 (>60 ml/min/1.73 sqM); Potassium 4.3 mmol/L (3.5-5.1); Sodium 135 mmol/L (137-145)
[2021-06-03 08:03] LABS: Glucose,Whole Blood 76 mg/dL (75-99)
[2021-06-03] MEDS: IPRATROPIUM 0.5 MG/2.5 ML NEBU INHALATION SCH ×4 (08:11→20:29)
[2021-06-03] MEDS: PREGABALIN 100 MG CAP PO SCH ×2 (09:56→21:11)
[2021-06-03] MEDS: POTASSIUM CHLORIDE ER 10 MEQ TAB.ER.PRT PO SCH (09:56)
[2021-06-03] MEDS: FUROSEMIDE 40 MG TAB PO SCH (09:56)
[2021-06-03] MEDS: DULoxetine HCL 30 MG CAPSULE.DR PO SCH (09:56)
[2021-06-03] MEDS: oxyCODONE-APAP 10-325MG 1 EACH TAB PO PRN ×2 (09:56→21:19)
[2021-06-03] MEDS: metFORMIN 500 MG TAB PO SCH ×2 (09:57→21:12)
[2021-06-03] MEDS: MULTIVITAMINS, THERA 1 EACH TAB PO SCH (09:57)
[2021-06-03] MEDS: MELOXICAM 7.5 MG TAB PO SCH (09:58)
[2021-06-03] MEDS: AMIODARONE 200 MG TAB PO SCH ×3 (09:58→22:36)
[2021-06-03] MEDS: lisinopriL 20 MG TAB PO SCH (09:58)
[2021-06-03] MEDS: ASPIRIN 81 MG PO SCH (09:58)
[2021-06-03] MEDS: PANTOPRAZOLE 40 MG TABLET PO SCH ×2 (09:58→17:29)
[2021-06-03] MEDS: SYMBICORT 160-4.5 MCG INHALER INHALATION SCH ×2 (11:28→20:29)
[2021-06-03] MEDS ORDERED: LORazepam 0.5 MG TAB PO PRN (11:56)
[2021-06-03 12:17] LABS: Glucose,Whole Blood 124 mg/dL (75-99)
[2021-06-03] MEDS: TOPIRAMATE 25 MG TAB PO SCH ×2 (12:23→21:19)
[2021-06-03] MEDS: GLIMEPIRIDE 4 MG TAB PO SCH (12:24)
[2021-06-03] MEDS: PIOGLITAZONE 30 MG TAB PO SCH (12:24)
[2021-06-03] MEDS: HYDROmorphone 0.5 MG/0.5 ML SYRINGE IVP PRN (12:26)
[2021-06-03] MEDS: FLUTICASONE 50MCG/SPRAY NASAL 16GM EA NOSTRIL SCH (14:36)
[2021-06-03] MEDS: METOPROLOL SUCCINATE (ER) 50 MG TAB.ER.24H PO SCH (14:36)
--- NOTE | 2021-06-03 16:40 | PN ---
PROGRESS NOTE DATE OF SERVICE: 06/03/2021 This 66-year-old gentleman who was admitted after change in mental status also had some right leg cellulitis. The patient is being closely monitored. No chest pain. No palpitations. No fever. Cultures are awaited at this time. The patient is on broad- spectrum IV antibiotics. Patient was started on vancomycin. No chest pain. No palpitations. No fever. PHYSICAL EXAMINATION: Alert and oriented x3. Pulse 63, blood pressure 149/75, respiration 20, temperature 98.2, pulse ox 94% on room air. HEENT: Conjunctivae normal. NECK: No jugular venous distention. CARDIOVASCULAR: S1, S2 muffled. RESPIRATION: Breath sounds diminished at the bases. No rhonchi. No crackles. ABDOMEN: Soft. LEGS: Right leg cellulitis. LABS: WBC 5.2, hemoglobin 11.4, sodium 134, potassium 4.3. Accu-Cheks noted. ASSESSMENT: 1. Acute right leg cellulitis with failure of outpatient treatment with possible sepsis. 2. Change in mental status, acute metabolic encephalopathy. 3. History of left above-knee amputation. 4. History of atrial fibrillation. 5. Asthma. 6. History of chronic obstructive pulmonary disease. 7. Cerebrovascular accident, transient ischemic attack. 8. Diabetes mellitus, type 2, uncontrolled with hypoglycemia. 9. History of deep vein thrombosis. 10.Gastroesophageal reflux disease. 11.Hypertension. 12.Hyperlipidemia. 13.History of degenerative joint disease. 14.History of pneumonia. 15.History of pulmonary embolism. 16.History of vascular disorder. 17.History of hyperkalemia. 18.History of lupus. 19.History of deep vein thrombosis of bilateral legs. 20.History of pulmonary embolism. 21.History of [place] filter. 22.History of peripheral neuropathy, bilateral hands. 23.Wheelchair-bound. 24.History of transient ischemic attack. 25.History of MRSA. 26.History of adenoidectomy. 27.History of appendectomy. 28.History of tonsillectomy. 29.Remote history of nicotine dependence. 30.Obesity with body mass index of 36.5. 31.FULL CODE. RECOMMENDATIONS AND DISCUSSION: I recommend to continue current medications, continue with symptomatic treatment. Continue the vancomycin. I would also recommend infectious disease evaluation. Follow the cultures. Guarded prognosis. Further recommendations to follow. MMODL / IJN: [id number] /
[2021-06-03 17:13] LABS: Glucose,Whole Blood 173 mg/dL (75-99)
[2021-06-03] MEDS ORDERED: WARFARIN 5 MG TAB PO ONE (18:00)
[2021-06-03 20:42] LABS: Glucose,Whole Blood 211 mg/dL (75-99)
[2021-06-03] MEDS: DOCUSATE 100 MG CAP PO SCH (21:11)
[2021-06-03] MEDS: ATORVASTATIN 80 MG TAB PO SCH (21:11)
[2021-06-03] MEDS: LORATADINE 10 MG TAB PO SCH (21:12)
[2021-06-03] MEDS: NORTRIPTYLINE 25 MG CAP PO SCH (21:19)
[2021-06-04] MEDS: SODIUM CHLORIDE 0.9% 1,000 ML IV SCH ×2 (06:22→16:59)
[2021-06-04 07:23] LABS: Anisocytosis Slight; Basophils % (A) 0 %; Eosinophils # (A) 0.2 k/uL (0-0.7); Eosinophils % (A) 3 %; HCT 36.4 % (39.0-53.0); HGB 11.6 gm/dL (13.0-17.5); Hypochromasia Slight; Lymphocytes # (A) 0.9 k/uL (1.0-4.8); Lymphocytes % (A) 14 %; MCH 28.4 pg (25.0-35.0); MCHC 31.9 g/dL (31.0-37.0); Monocytes # (A) 0.5 k/uL (0-1.0); Monocytes % (A) 8 %; Neutrophils # (A) 4.9 k/uL (1.3-7.7); Neutrophils % (A) 72 %; Platelet Count 233 k/uL (150-450); RBC 4.09 m/uL (4.30-5.90); RDW 17.1 % (11.5-15.5); WBC 6.8 k/uL (3.8-10.6)
[2021-06-04 07:52] LABS: African American GFR (CKD) 58 (>60 ml/min/1.73 sqM); Anion Gap 7 mmol/L; Blood Urea Nitrogen 19 mg/dL (9-20); Calcium 8.3 mg/dL (8.4-10.2); Carbon Dioxide 19 mmol/L (22-30); Chloride 112 mmol/L (98-107); Glucose 151 mg/dL (74-99); Non-African American GFR(CKD) 51 (>60 ml/min/1.73 sqM); Potassium 4.5 mmol/L (3.5-5.1); Sodium 138 mmol/L (137-145)
[2021-06-04 07:57] LABS: Glucose,Whole Blood 147 mg/dL (75-99)
[2021-06-04] MEDS: IPRATROPIUM 0.5 MG/2.5 ML NEBU INHALATION SCH ×4 (08:08→20:11)
[2021-06-04] MEDS: SYMBICORT 160-4.5 MCG INHALER INHALATION SCH ×2 (08:13→20:11)
[2021-06-04] MEDS: DULoxetine HCL 30 MG CAPSULE.DR PO SCH (09:42)
[2021-06-04] MEDS: PIOGLITAZONE 30 MG TAB PO SCH (09:42)
[2021-06-04] MEDS: MULTIVITAMINS, THERA 1 EACH TAB PO SCH (09:42)
[2021-06-04] MEDS: POTASSIUM CHLORIDE ER 10 MEQ TAB.ER.PRT PO SCH (09:43)
[2021-06-04] MEDS: TOPIRAMATE 25 MG TAB PO SCH ×2 (09:43→21:38)
[2021-06-04] MEDS: PREGABALIN 100 MG CAP PO SCH ×2 (09:43→21:37)
[2021-06-04] MEDS: MELOXICAM 7.5 MG TAB PO SCH (09:43)
[2021-06-04] MEDS: GLIMEPIRIDE 4 MG TAB PO SCH (09:43)
[2021-06-04] MEDS: ASPIRIN 81 MG PO SCH (09:43)
[2021-06-04] MEDS: AMIODARONE 200 MG TAB PO SCH ×4 (09:43→21:38)
[2021-06-04] MEDS: METOPROLOL SUCCINATE (ER) 50 MG TAB.ER.24H PO SCH (09:43)
[2021-06-04] MEDS: lisinopriL 20 MG TAB PO SCH (09:43)
[2021-06-04] MEDS: FUROSEMIDE 40 MG TAB PO SCH (09:43)
[2021-06-04] MEDS: PANTOPRAZOLE 40 MG TABLET PO SCH ×2 (09:43→16:58)
[2021-06-04] MEDS: metFORMIN 500 MG TAB PO SCH ×2 (09:44→21:38)
[2021-06-04] MEDS: oxyCODONE-APAP 10-325MG 1 EACH TAB PO PRN ×2 (10:57→19:51)
[2021-06-04] MEDS: FLUTICASONE 50MCG/SPRAY NASAL 16GM EA NOSTRIL SCH (10:57)
[2021-06-04 12:54] LABS: Glucose,Whole Blood 134 mg/dL (75-99)
[2021-06-04] MEDS: VANCOMYCIN 2,000 MG in SODIUM CHLORIDE 0.9% 500 ML 500 ML IVPB SCH (12:55)
[2021-06-04] MEDS: HYDROmorphone 0.5 MG/0.5 ML SYRINGE IVP PRN (12:56)
[2021-06-04 13:20] LABS: INR 1.5 (<1.2); Prothrombin Time 15.3 sec (9.0-12.0)
[2021-06-04] MEDS ORDERED: WARFARIN 5 MG TAB PO ONE (18:00)
[2021-06-04 18:04] LABS: Glucose,Whole Blood 167 mg/dL (75-99)
--- NOTE | 2021-06-04 19:02 | PN ---
PROGRESS NOTE DATE OF SERVICE: 06/04/2021 This 66-year-old gentleman who was admitted with acute right leg cellulitis with failure of outpatient treatment with possible sepsis is being closely monitored. No chest pain. No palpitations. No fever. The cultures are negative so far. ECF rehab is also considered. PHYSICAL EXAMINATION: Alert and oriented x3. Pulse 64, blood pressure 119/69, respiration 18, temperature 97.4, pulse ox 93% on room air. HEENT: Conjunctivae normal. NECK: No jugular venous distention. CARDIOVASCULAR: S1, S2 muffled. RESPIRATION: Breath sounds diminished at the bases. A few scattered rhonchi. ABDOMEN: Soft. NERVOUS SYSTEM: No focal deficit. LABS: WBC 6.8, hemoglobin 7.6. ASSESSMENT: 1. Acute right leg cellulitis with failure of outpatient with possible sepsis. 2. Change in mental status, acute metabolic encephalopathy. 3. History of left above-knee amputation. 4. History of atrial fibrillation, chronic. 5. History of asthma, chronic intermittent. 6. History of chronic obstructive pulmonary disease. 7. Cerebrovascular accident, transient ischemic attack. 8. Diabetes mellitus, type 2, uncontrolled with hypoglycemia. 9. History of deep vein thrombosis. 10.Gastroesophageal reflux disease. 11.Hypertension. 12.Hyperlipidemia. 13.History of degenerative joint disease. 14.History of pneumonia. 15.History of pulmonary embolism. 16.History of vascular disorder. 17.History of hyperkalemia. 18.History of lupus. 19.History of DVT of bilateral legs. 20.History of pulmonary embolism. 21.History of [place] filter. 22.History of peripheral neuropathy, bilateral hands. 23.Wheelchair-bound. 24.History of transient ischemic attack. 25.History of MRSA. 26.History of adenoidectomy. 27.History of appendectomy. 28.History of tonsillectomy. 29.Remote history of nicotine dependence. 30.Obesity with body mass index of 36.5. 31.FULL CODE. RECOMMENDATIONS AND DISCUSSION: I recommend to continue current medications, continue with the monitoring, symptomatic treatment. Otherwise at this time I would recommend repeat labs and possibly PT/OT evaluation. Guarded prognosis. Further recommendations to follow. Continue with antibiotics. Cultures are negative, as mentioned earlier. MMODL / IJN: [id number] /
[2021-06-04 20:27] LABS: Glucose,Whole Blood 155 mg/dL (75-99)
[2021-06-04] MEDS: ATORVASTATIN 80 MG TAB PO SCH (21:38)
[2021-06-04] MEDS: NORTRIPTYLINE 25 MG CAP PO SCH (21:38)
[2021-06-04] MEDS: DOCUSATE 100 MG CAP PO SCH (21:38)
[2021-06-04] MEDS: LORATADINE 10 MG TAB PO SCH (21:38)
--- NOTE | 2021-06-04 22:54 | P.CONS ---
History of Present Illness - Reason for Consult Consult date: 06/04/21 sepsis Requesting physician: Shadia Alvarez - Chief Complaint right leg redness and blisters x days - History of Present Illness History of present illness : Patient is a 66-year male with a past medical history sniffing for left diabetic foot infection requiring left below- knee amputation patient presenting to the ER 2 days ago for evaluation of increasing swelling redness and some purulent drainage from his right lower extremity with the patient did have multiple blisters wanted patient has been complaining of leg symptoms getting worse over the last few days denies having history of any trauma patient apparently did have a quite erratic and agitated behavior on presentation to the hospital on arrival to the ER the patient was afebrile and no fever was recorded subsequently patient did have a normal white count creatinine mildly elevated covarrubias PCR was negative local culture obtained which are currently pending patient did have x-rays of the right tibia and fibula correlate for edema cellulitis patient currently being treated with the vancomycin infectious disease was consulted last evening for further management of antibiotic therapy Review of system: CONSTITUTIONAL: Positive for weakness denies high-grade fever. EYES: No complaint. ENT: No complaint. RESPIRATORY: Occasional cough. CARDIOVASCULAR: No complaint. GENITOURINARY: No complaint. GASTROINTESTINAL: No complaint. MUSCULOSKELETAL: As per history of present illness. INTEGUMENTARY: No complaint. PSYCHOLOGIC: No complaint. ENDOCRINE: No complaint. NEUROLOGIC: No complaint. Past medical history : Reviewed, documented below Past surgical history : Reviewed, documented below Social history: Reviewed, documented below Medications: Reviewed, as documented below EXAMINATION: Vital sigans= Reviewed and documented below GENERAL DESCRIPTION: Middle-aged male lying in bed, no distress. No tachypnea or accessory muscle of respiration use. HEENT: Shows Pallor , no scleral icterus. Oral mucous membrane is dry. NECK: Trachea central, no thyromegaly. LUNGS: Unlabored breathing. Decrease intensity breath sound. No wheeze or crackle. HEART: S1, S2, regular rate and rhythm. ABDOMEN: Soft, no tenderness MUSCULOSKELETAL :right lower extremity with some dried up scabs minimal swelling slight redness no drainage SKIN: No rash, no masses palpable. NEUROLOGICAL: The patient is awake, alert, oriented x3, mood and affect normal. LABS AND RADIOLOGY: Reviewed results see below Assessment : Patient presented to hospital with right lower extremity swelling blisters and some purulent drainage in this patient who did have history of left diabetic foot infection secondary to MRSA requiring left below the knee amputation with cellulitis right lower extremity will need to cover for the MRSA to the likely pathogen and apparently the patient seem to have some clinical improvement with the vancomycin Plan: 1-vancomycin pharmacy to dose with a target trough of 15 while watching kidney function and Vanco trough closely. 2-discharge antibiotic on the basis of the final culture and clinical response We will follow on clinical condition and cultures to further adjust medication if needed Thank you for this consultation we will follow the patient along with you Past Medical History Past Medical History: Atrial Fibrillation, Asthma, COPD, CVA/TIA, Diabetes Mellitus, Deep Vein Thrombosis (DVT), GERD/Reflux, Hyperlipidemia, Hypertension, Neurologic Disorder, Osteoarthritis (OA), Pneumonia, Pulmonary Embolus (PE), Skin Disorder, Vascular Disorder Additional Past Medical History / Comment(s): Pt admitted to [facility] on 11/20/20 with hyperkalemia, hyperglycemia, uncontrolled diabetes. Other hx: Lupus anticoagulant, DVTs bilateral legs, PEs bilateral lungs, pt has isabell filter, L AKA/wheelchair bound, NIDDM type II, neuropathy bilateral hands, wound care patient for buttock wound, now healed, TIAs, pneumothorax, past migraines, chronic low back pain, R leg edema at times, varicosities. History of Any Multi-Drug Resistant Organisms: MRSA Year Discovered:: 02/28/20 MDRO Source:: MRSA FOOT Past Surgical History: Adenoidectomy, Appendectomy, Tonsillectomy Additional Past Surgical History / Comment(s): Isabell filter, stents in vessels "in pelvic area", total L hip arthroplasty, vein strippings, colonoscopy. left leg amputation Past Anesthesia/Blood Transfusion Reactions: No Reported Reaction Additional Past Anesthesia/Blood Transfusion Reaction / Comm: Pt has received blood in past without reaction. Past Psychological History: No Psychological Hx Reported Additional Psychological History / Comment(s): Pt currently living with his albina. He has a home care nurse thru [facility] pt states for wound care. He has a glucometer. He has a nebulizer but it is in his own home. Pt states he no longer drives and that getting to appts will be difficult for him. Smoking Status: Current every day smoker Past Alcohol Use History: None Reported Additional Past Alcohol Use History / Comment(s): Pt startes smoking in 1969 and is a ppd smoker. Past Drug Use History: None Reported - Past Family History Mother Family Medical History: Coronary Artery Disease (CAD), Myocardial Infarction ([place]), Vascular Disorder Additional Family Medical History / Comment(s): heart disease, peripheral vascular disease. Father Family Medical History: Diabetes Mellitus, Renal Disease Medications and Allergies Home Medications Medication Instructions Recorded Confirmed Type Atorvastatin [Lipitor] 80 mg PO HS 01/09/14 06/02/21 History Topiramate [Topamax] 25 mg PO BID 01/09/14 06/02/21 History Nortriptyline [Pamelor] 50 mg PO HS 08/15/19 06/02/21 History Omeprazole [PriLOSEC] 20 mg PO BID 08/15/19 06/02/21 History Aspirin 81 mg PO DAILY 30 Days #30 chew 08/26/19 06/02/21 Rx Loratadine 10 mg PO HS 10/30/19 06/02/21 History Metoprolol Succinate (ER) [Toprol 50 mg PO DAILY 02/29/20 06/02/21 History XL] Docusate [Colace] 100 mg PO HS 05/19/20 06/02/21 History Albuterol Nebulized [Ventolin 2.5 mg INHALATION RT-QID PRN 10/16/20 06/02/21 History Nebulized] Budesonide/Formoterol Fumarate 2 puff INHALATION RT-BID 10/16/20 06/02/21 History [Symbicort 160-4.5 Mcg Inhaler] Multivitamins, Thera [Multivitamin 1 tab PO DAILY 10/16/20 06/02/21 History (formulary)] Tiotropium [place] [Spiriva 2 spray INHALATION RT-DAILY 10/16/20 06/02/21 History Respimat] oxyCODONE-APAP 10-325MG [Percocet 1 tab PO Q6H PRN 10/16/20 06/02/21 History 10-325 mg] Furosemide [Lasix] 40 mg PO DAILY #30 tablet 12/29/20 06/02/21 Rx Amiodarone [Cordarone] 200 mg PO TID 06/02/21 06/02/21 History Celecoxib [CeleBREX] 200 mg PO DAILY 06/02/21 06/02/21 History DULoxetine HCL [Cymbalta] 30 mg PO DAILY 06/02/21 06/02/21 History Fluticasone Nasal [place] [Flonase 2 spray EA NOSTRIL DAILY 06/02/21 06/02/21 History Nasal [place]] Glimepiride [Amaryl] 4 mg PO AC-BRKFST 06/02/21 06/02/21 History Pioglitazone [Actos] 30 mg PO DAILY 06/02/21 06/02/21 History Potassium Chloride [Klor-Con 10 ER] 10 meq PO DAILY 06/02/21 06/02/21 History Pregabalin [Lyrica] 300 mg PO BID 06/02/21 06/02/21 History Warfarin [Coumadin] 3 - 4.5 mg PO DIRECTED 06/02/21 06/02/21 History lisinopriL 20 mg PO DAILY 06/02/21 06/02/21 History metFORMIN HCL 500 mg PO BID 06/02/21 06/02/21 History Allergies Allergy/AdvReac Type Severity Reaction Status Date / Time baclofen Allergy Unknown Verified 06/02/21 13:00 Physical Exam Vitals: Vital Signs Temp Pulse Pulse Pulse Resp BP Pulse Ox 06/04/21 21:00 98.1 F 56 L 16 117/66 95 06/04/21 17:01 56 L 94/55 06/04/21 15:50 60 06/04/21 15:41 64 06/04/21 12:54 97.4 F L 64 19 119/69 93 L 06/04/21 09:42 65 120/70 06/04/21 08:19 60 06/04/21 08:08 60 06/04/21 05:00 98.2 F 57 L 18 116/67 93 L Intake and Output 06/04/21 06/04/21 06/04/21 06:59 14:59 22:59 Intake Total 400 1400 Balance 400 1400 Intake: Intake, IV Titration 1400 Amount Sodium Chloride 0.9% 1, 900 000 ml @ 75 mls/hr IV . [id number] HELENE Rx#:[id number] Vancomycin 2,000 mg In 500 Sodium Chloride 0.9% 500 ml 500 ml @ 167 mls/hr IVPB Q16H HELENE Rx#: [id number] Oral 400 Other: Voiding Method Urinal # Voids 2 Results CBC & Chem 7: 06/04/21 07:07 06/04/21 07:07 Labs: Abnormal Lab Results - Last 24 Hours (Table) 06/04/21 06/04/21 06/04/21 Range/Units 07:07 07:07 07:55 RBC 4.09 L (4.30-5.90) m/uL Hgb 11.6 L (13.0-17.5) gm/dL Hct 36.4 L (39.0-53.0) % RDW 17.1 H (11.5-15.5) % Lymphocytes # 0.9 L (1.0-4.8) k/uL PT (9.0-12.0) sec INR (<1.2) Chloride 112 H (98-107) mmol/L Carbon Dioxide 19 L (22-30) mmol/L Creatinine 1.45 H (0.66-1.25) mg/dL Glucose 151 H (74-99) mg/dL POC Glucose (mg/dL) 147 H (75-99) mg/dL Calcium 8.3 L (8.4-10.2) mg/dL 06/04/21 06/04/21 06/04/21 Range/Units 12:29 12:53 17:59 RBC (4.30-5.90) m/uL Hgb (13.0-17.5) gm/dL Hct (39.0-53.0) % RDW (11.5-15.5) % Lymphocytes # (1.0-4.8) k/uL PT 15.3 H (9.0-12.0) sec INR 1.5 H (<1.2) Chloride (98-107) mmol/L Carbon Dioxide (22-30) mmol/L Creatinine (0.66-1.25) mg/dL Glucose (74-99) mg/dL POC Glucose (mg/dL) 134 H 167 H (75-99) mg/dL Calcium (8.4-10.2) mg/dL 06/04/21 Range/Units 20:25 RBC (4.30-5.90) m/uL Hgb (13.0-17.5) gm/dL Hct (39.0-53.0) % RDW (11.5-15.5) % Lymphocytes # (1.0-4.8) k/uL PT (9.0-12.0) sec INR (<1.2) Chloride (98-107) mmol/L Carbon Dioxide (22-30) mmol/L Creatinine (0.66-1.25) mg/dL Glucose (74-99) mg/dL POC Glucose (mg/dL) 155 H (75-99) mg/dL Calcium (8.4-10.2) mg/dL Microbiology - Last 24 Hours (Table) 06/02/21 09:57 Blood Culture - Preliminary Blood No Growth after 48 hours 06/04/21 02:15 Wound Culture - Preliminary Leg - Right
[2021-06-05] MEDS: VANCOMYCIN 2,000 MG in SODIUM CHLORIDE 0.9% 500 ML 500 ML IVPB SCH ×2 (04:53→20:53)
[2021-06-05 07:05] LABS: Anisocytosis Slight; Basophils % (A) 0 %; Eosinophils # (A) 0.2 k/uL (0-0.7); Eosinophils % (A) 3 %; HGB 11.3 gm/dL (13.0-17.5); Hypochromasia Slight; Lymphocytes # (A) 1.4 k/uL (1.0-4.8); Lymphocytes % (A) 20 %; MCH 27.8 pg (25.0-35.0); MCHC 31.3 g/dL (31.0-37.0); MCV 88.8 fL (80.0-100.0); Mean Platelet Volume 8.4; Monocytes # (A) 0.6 k/uL (0-1.0); Monocytes % (A) 9 %; Neutrophils # (A) 4.5 k/uL (1.3-7.7); Neutrophils % (A) 65 %; Platelet Count 222 k/uL (150-450); RBC 4.05 m/uL (4.30-5.90); RDW 17.8 % (11.5-15.5); WBC 6.9 k/uL (3.8-10.6)
[2021-06-05 07:11] LABS: INR 1.4 (<1.2); Prothrombin Time 14.6 sec (9.0-12.0)
[2021-06-05 07:24] LABS: African American GFR (CKD) 69 (>60 ml/min/1.73 sqM); Anion Gap 8 mmol/L; Blood Urea Nitrogen 18 mg/dL (9-20); Calcium 8.2 mg/dL (8.4-10.2); Carbon Dioxide 20 mmol/L (22-30); Chloride 110 mmol/L (98-107); Glucose 111 mg/dL (74-99); Non-African American GFR(CKD) 60 (>60 ml/min/1.73 sqM); Potassium 4.4 mmol/L (3.5-5.1); Sodium 138 mmol/L (137-145)
[2021-06-05] MEDS: SYMBICORT 160-4.5 MCG INHALER INHALATION SCH ×2 (07:46→20:03)
[2021-06-05] MEDS: IPRATROPIUM 0.5 MG/2.5 ML NEBU INHALATION SCH ×4 (07:46→20:04)
[2021-06-05 08:00] LABS: Glucose,Whole Blood 89 mg/dL (75-99)
[2021-06-05] MEDS: metFORMIN 500 MG TAB PO SCH ×2 (08:50→20:50)
[2021-06-05] MEDS: PREGABALIN 100 MG CAP PO SCH ×2 (08:51→20:49)
[2021-06-05] MEDS: PIOGLITAZONE 30 MG TAB PO SCH (08:51)
[2021-06-05] MEDS: METOPROLOL SUCCINATE (ER) 50 MG TAB.ER.24H PO SCH (08:51)
[2021-06-05] MEDS: PANTOPRAZOLE 40 MG TABLET PO SCH ×2 (08:51→17:45)
[2021-06-05] MEDS: DULoxetine HCL 30 MG CAPSULE.DR PO SCH (08:51)
[2021-06-05] MEDS: POTASSIUM CHLORIDE ER 10 MEQ TAB.ER.PRT PO SCH (08:51)
[2021-06-05] MEDS: ASPIRIN 81 MG PO SCH (08:51)
[2021-06-05] MEDS: MULTIVITAMINS, THERA 1 EACH TAB PO SCH (08:51)
[2021-06-05] MEDS: GLIMEPIRIDE 4 MG TAB PO SCH (08:51)
[2021-06-05] MEDS: FUROSEMIDE 40 MG TAB PO SCH (08:51)
[2021-06-05] MEDS: MELOXICAM 7.5 MG TAB PO SCH (08:52)
[2021-06-05] MEDS: TOPIRAMATE 25 MG TAB PO SCH ×2 (08:52→20:49)
[2021-06-05] MEDS: lisinopriL 20 MG TAB PO SCH (08:53)
[2021-06-05] MEDS: AMIODARONE 200 MG TAB PO SCH ×3 (08:53→20:47)
[2021-06-05] MEDS: FLUTICASONE 50MCG/SPRAY NASAL 16GM EA NOSTRIL SCH (08:53)
[2021-06-05] MEDS: oxyCODONE-APAP 10-325MG 1 EACH TAB PO PRN ×2 (09:00→16:09)
[2021-06-05 13:05] LABS: Glucose,Whole Blood 170 mg/dL (75-99)
[2021-06-05] MEDS: SODIUM CHLORIDE 0.9% 1,000 ML IV SCH ×2 (15:01→20:48)
--- NOTE | 2021-06-05 15:05 | PN ---
PROGRESS NOTE DATE OF SERVICE: 06/05/2021. HISTORY OF PRESENT ILLNESS: This 66 -year-old gentleman who was admitted with acute right leg cellulitis and failure of outpatient treatment, also is being closely monitored. Patient on IV antibiotics at this time. Dr. Ordoñez is following the patient closely. The patient apparently was kicked out of his daughter's, and the family was apparently also not giving him his prosthetic according to the staff. The patient is practically homeless and I would recommend Social Work Case Management to evaluate and manage those issues. EXAM: Vitals signs stable. Cardiovascular: S1, S2. Respiratory: Breath sounds diminished in the bases. Abdomen soft. Legs: Cellulitis. LABS: Hemoglobin 11.3. Other labs are noted. Creatinine is 1.26. ASSESSMENT: 1. Acute right leg cellulitis with failure of outpatient treatment with possible sepsis present on admission with change in mental status acute metabolic encephalopathy present on admission. 2. History of left above-knee amputation. 3. History of atrial fibrillation, chronic. 4. History of asthma, chronic intermittent. 5. History of chronic obstructive pulmonary disease. 6. Cerebrovascular accident, transient ischemic attack. 7. Diabetes type 2 uncontrolled with hyperglycemia. 8. History of deep vein thrombosis. 9. Gastroesophageal reflux disease. 10.Hypertension. 11.Hyperlipidemia. 12.History of degenerative joint disease. 13.History of pneumonia. 14.History of pulmonary embolism. 15.History of vascular disorder. 16.History of hyperkalemia. 17.History of lupus. 18.History of deep vein thrombosis of bilateral legs. 19.History of pulmonary embolism. 20.History of [place] filter. 21.History of peripheral neuropathy, bilateral hands. 22.Wheelchair bound. 23.History of transient ischemic attack. 24.History of MRSA. 25.History of adenoidectomy. 26.History of appendectomy. 27.History of tonsillectomy. 28.Remote history of nicotine dependence. 29.Obesity with body mass index of 36.5. 30.FULL CODE. RECOMMENDATIONS AND DISCUSSION: Recommend to continue current medications, symptomatic treatment. Otherwise, at this time, I would recommend continue the antibiotics. PT/OT evaluation, possible ECF rehab. Guarded prognosis. Further recommendations to follow. MMODL / IJN: [id number] /
[2021-06-05 17:44] LABS: Glucose,Whole Blood 143 mg/dL (75-99)
[2021-06-05] MEDS ORDERED: WARFARIN 5 MG TAB PO ONE (18:00)
[2021-06-05] MEDS ORDERED: VANCOMYCIN TROUGH DUE 1 EACH MISC MISCELLANE ONE (19:00)
[2021-06-05 20:05] LABS: Glucose,Whole Blood 143 mg/dL (75-99)
[2021-06-05] MEDS: ATORVASTATIN 80 MG TAB PO SCH (20:49)
[2021-06-05] MEDS: NORTRIPTYLINE 25 MG CAP PO SCH (20:49)
[2021-06-05] MEDS: DOCUSATE 100 MG CAP PO SCH (20:49)
[2021-06-05] MEDS: LORATADINE 10 MG TAB PO SCH (20:50)
--- NOTE | 2021-06-06 02:10 | PN ---
PROGRESS NOTE DATE OF SERVICE: 06/05/2021 REASON FOR FOLLOWUP: Right lower extremity cellulitis. INTERVAL HISTORY: The patient is afebrile, breathing comfortably. The patient denies having any chest pain. No shortness of breath or cough. No abdominal pain or any worsening of the right lower extremity. PHYSICAL EXAMINATION: Blood pressure 114/70 with a pulse of 58, temperature 98.2. He is 94% on room air. General description is a middle-aged male lying in bed in no distress. Respiratory system: Unlabored breathing, clear to auscultation anteriorly. Heart S1, S2. Regular rate and rhythm. Abdomen soft, no tenderness. Right leg swelling and redness has decreased, no drainage. LABS: Hemoglobin 11.3, white count 6.9. Creatinine is 4.26. Wound culture is currently pending. DIAGNOSTIC IMPRESSION AND PLAN: Acute right lower extremity cellulitis with history of left diabetic foot infection requiring amputation. Patient at this time to continue vancomycin while waiting for the culture to finalize and continue supportive care. MMODL / IJN: [id number] /
[2021-06-06] MEDS ORDERED: NALOXONE 0.4 MG/ML 1 ML VIAL IVP STA (08:08)
[2021-06-06 08:21] LABS: Glucose,Whole Blood 84 mg/dL (75-99)
[2021-06-06 08:28] LABS: Allen Test Performed? Yes
[2021-06-06] MEDS: IPRATROPIUM 0.5 MG/2.5 ML NEBU INHALATION SCH ×3 (08:41→19:17)
[2021-06-06] MEDS: SYMBICORT 160-4.5 MCG INHALER INHALATION SCH ×2 (08:41→19:17)
[2021-06-06 08:50] LABS: ABG Base Excess -1.8 mmol/L; ABG HCO3 23 mmol/L (21-25); ABG Oxygen Saturation 86.8 % (94-97); ABG PCO2 38 mmHg (35-45); ABG PH 7.39 (7.35-7.45); ABG TCO2 24 mmol/L (19-24)
[2021-06-06 08:57] LABS: ABG PO2 53 mmHg (83-108)
--- NOTE | 2021-06-06 09:06 | CT ---
EXAMINATION TYPE: CODE STROKE: CT brain wo contr DATE OF EXAM: 06/06/2021 COMPARISON: 10/16/2020 HISTORY: Clinical concern for straw TECHNIQUE: CT scan of the head performed without contour CT DLP: 1090.4 mGycm Automated exposure control for dose reduction was used. FINDINGS: No acute intracranial hemorrhage, midline shift or mass effect. Carr-white matter differentiation remains preserved. Focal areas of low attenuation in the brainstem (02/23 and 02/17). CSF spaces and ventricles likely on the basis of brain volume loss. Patchy low-attenuation the deep w gavi matter periventricular region likely on the basis of chronic microvascular ischemia. Mild focal low-attenuation in the medial aspect of the right frontal lobe unchanged compared to prior may be related to remote insult. Tiny scattered low attenuating lesions in the bilateral basal ganglia No acute orbital, osseous or soft tissue abnormalities seen.Osseous structures are mildly osteopenic. Atherosclerotic calcifications are seen in the intracranial internal carotid arteries. No air-fluid levels seen in the paranasal sinuses or mastoid air cells. IMPRESSION: 1. NEW FOCAL AREAS OF LOW ATTENUATION IN THE BRAINSTEM MAY BE ARTIFACTUAL OR MAY BE SECONDARY TO VASC ULAR INSULT. RECOMMEND CORRELATION WITH MRI. 2. NO EVIDENCE FOR ACUTE INTRACRANIAL HEMORRHAGE MIDLINE SHIFT OR MASS EFFECT. 3. BRAIN VOLUME LOSS, CHRONIC MICROVASCULAR ISCHEMIC CHANGES, BILATERAL LACUNAR INFARCTS, NO SIGNIFIC ANT CHANGE. 4. FOCAL AREA OF LOW ATTENUATION IN THE MEDIAL ASPECT OF THE RIGHT FRONTAL LOBE MAY RELATED TO REMOTE INSULT, SIGNIFICANT CHANGE COMPARED TO PRIOR.
[2021-06-06] MEDS ORDERED: LORazepam 2 MG/ML INJ IV STA (09:09)
[2021-06-06] MEDS ORDERED: LORazepam 2 MG/ML INJ ONE (09:10)
[2021-06-06 09:17] LABS: Anisocytosis Slight; Basophils % (A) 0 %; Eosinophils # (A) 0.2 k/uL (0-0.7); Eosinophils % (A) 3 %; HCT 36.5 % (39.0-53.0); HGB 11.6 gm/dL (13.0-17.5); Hypochromasia Slight; Lymphocytes # (A) 1.3 k/uL (1.0-4.8); Lymphocytes % (A) 16 %; MCH 27.5 pg (25.0-35.0); MCHC 31.9 g/dL (31.0-37.0); MCV 86.2 fL (80.0-100.0); Mean Platelet Volume 8.5; Monocytes # (A) 0.5 k/uL (0-1.0); Monocytes % (A) 6 %; Neutrophils # (A) 5.9 k/uL (1.3-7.7); Neutrophils % (A) 73 %; Platelet Count 237 k/uL (150-450); RBC 4.23 m/uL (4.30-5.90); RDW 17.5 % (11.5-15.5)
[2021-06-06] MEDS ORDERED: levETIRAcetam IV 1,000 MG in SALINE 1 100ML.BAG IVPB STA (09:18)
[2021-06-06 09:22] LABS: INR 1.6 (<1.2); Partial Thromboplastin Time 27.8 sec (22.0-30.0); Prothrombin Time 15.6 sec (9.0-12.0)
[2021-06-06 09:30] LABS: ALT 16 U/L (4-49); AST 20 U/L (17-59); African American GFR (CKD) 69 (>60 ml/min/1.73 sqM); Albumin 3.3 g/dL (3.5-5.0); Albumin/Globulin Ratio 1.1; Alkaline Phosphatase 109 U/L (38-126); Anion Gap 6 mmol/L; Blood Urea Nitrogen 16 mg/dL (9-20); Calcium 8.1 mg/dL (8.4-10.2); Carbon Dioxide 23 mmol/L (22-30); Chloride 108 mmol/L (98-107); Globulin 3.1 g/dL; Glucose 94 mg/dL (74-99); Non-African American GFR(CKD) 59 (>60 ml/min/1.73 sqM); Potassium 4.5 mmol/L (3.5-5.1); Sodium 137 mmol/L (137-145); Total Bilirubin 0.3 mg/dL (0.2-1.3); Total Protein 6.4 g/dL (6.3-8.2)
--- NOTE | 2021-06-06 09:40 | CT ---
EXAMINATION TYPE: CODE STROKE: CTA head neck DATE OF EXAM: 06/06/2021 HISTORY: unresponsive COMPARISON: 04/28/2020 CT DLP: 683 mGycm. Automated Exposure Control for Dose Reduction was Utilized. TECHNIQUE: CTA scan of the neck is performed with IV Contrast, patient injected with 65 mL of Isovue 370, axial images are obtained, coronal and sagittal reformatted images are reviewed. 3D reconstruct ed images are created on an independent workstation and reviewed. FINDINGS: Carotid/Vascular Structures: Bolus timing suboptimal causing suboptimal opacification of the arterial structures. The arch of the aorta has a four-vessel configuration the fourth vessel is the left vertebral artery. There is mild calcific and soft tissue plaque at the bilateral common carotid artery bifurcation cau sing mild left greater than right narrowing. There is mild soft tissue plaque at the region of the left internal carotid artery causing stenosis. External carotid arteries are patent. Both vertebral arteries are grossly patent. Minimal bilateral atherosclerotic calcifications are seen in the intracranial segments of the interna l carotid arteries. There is mild narrowing at the distal M1 segment of the left MCA. Both MCAs, ACAs and ACAs are patent in their proximal segments. No aneurysm or dissection appreciated. Venous vascular structures are grossly patent. Other: Bullous lung emphysema changes. Patent trachea and airways. No cervical lymphadenopathy appreciated. No acute osseous abnormality. Advanced degenerative changes seen in the cervical spine. IMPRESSION: 1. Mild narrowing at the bilateral carotid bifurcation, left greater than right. Mild narrowing at th e origin of the left internal carotid artery. 2. Mild narrowing at the left MCA M1 segment distally. 3. No complete occlusion, aneurysm or dissection seen. 4. Advanced bullous emphysema changes in the upper lungs. NASCET criteria was used in interpretation of this exam?
[2021-06-06] MEDS: ASPIRIN 81 MG PO SCH (09:54)
[2021-06-06] MEDS: SODIUM CHLORIDE 0.9% 1,000 ML IV SCH ×2 (10:19→21:20)
[2021-06-06] MEDS ORDERED: VANCOMYCIN TROUGH DUE 1 EACH MISC MISCELLANE ONE (11:00)
[2021-06-06] MEDS: GLIMEPIRIDE 4 MG TAB PO SCH (12:08)
[2021-06-06] MEDS: PANTOPRAZOLE 40 MG TABLET PO SCH ×2 (12:08→17:19)
[2021-06-06] MEDS: FLUTICASONE 50MCG/SPRAY NASAL 16GM EA NOSTRIL SCH (12:09)
[2021-06-06] MEDS: AMIODARONE 200 MG TAB PO SCH ×2 (12:09→17:18)
[2021-06-06] MEDS: metFORMIN 500 MG TAB PO SCH ×2 (12:10→21:15)
[2021-06-06] MEDS: TOPIRAMATE 25 MG TAB PO SCH ×2 (12:10→21:15)
[2021-06-06] MEDS: PREGABALIN 100 MG CAP PO SCH ×2 (12:10→21:19)
[2021-06-06 12:12] LABS: Glucose,Whole Blood 88 mg/dL (75-99)
[2021-06-06] MEDS: VANCOMYCIN 2,000 MG in SODIUM CHLORIDE 0.9% 500 ML 500 ML IVPB SCH (12:37)
[2021-06-06] MEDS: FUROSEMIDE 40 MG TAB PO SCH (13:06)
[2021-06-06] MEDS: MULTIVITAMINS, THERA 1 EACH TAB PO SCH (13:06)
[2021-06-06] MEDS: DULoxetine HCL 30 MG CAPSULE.DR PO SCH (13:06)
[2021-06-06] MEDS: lisinopriL 20 MG TAB PO SCH (13:06)
[2021-06-06] MEDS: POTASSIUM CHLORIDE ER 10 MEQ TAB.ER.PRT PO SCH (13:06)
[2021-06-06] MEDS: MELOXICAM 7.5 MG TAB PO SCH (13:06)
[2021-06-06] MEDS: METOPROLOL SUCCINATE (ER) 50 MG TAB.ER.24H PO SCH (13:07)
[2021-06-06] MEDS: CLOPIDOGREL 75 MG TAB PO SCH (13:09)
[2021-06-06] MEDS: PIOGLITAZONE 30 MG TAB PO SCH (13:09)
--- NOTE | 2021-06-06 14:07 | XR ---
EXAMINATION TYPE: XR chest 1V portable DATE OF EXAM: 06/06/2021 COMPARISON: 12/24/2020 HISTORY: 66 years Male. STUDY INDICATION GIVEN: chf . TECHNIQUE: AP chest radiograph IMPRESSION: There is a patchy opacity in the left lower lobe which was not seen on prior study and is concerning for pneumonic infiltrate. This appears to be superimposed on a background of interstitial and reticular nodular opacities and u pper lobe scattered lucencies suggesting chronic lung disease COPD/emphysema with likely lung base fi brosis and/or aren't/atelectasis. No pneumothorax or large effusion. Heart is prominent in size similar to prior study. No acute osseous abnormalities seen.
[2021-06-06] MEDS: oxyCODONE-APAP 10-325MG 1 EACH TAB PO PRN ×2 (14:45→21:16)
--- NOTE | 2021-06-06 16:13 | P.CNNES ---
History of Present Illness Consult date: 06/06/21 Requesting physician: Rashida Peterson Reason for Consult: CVA History of Present Illness: This is a 66-year-old gentleman with medical history of diabetes mellitus, hypertension, hyperlipidemia, migraine, chronic kidney insufficiency, atrial fibrillation on coumadin, history of subtherapeutic INR, history of DVT, history of pulmonary embolism status post Isabell filter, above left knee amputation since the emergency department on 06/02/2021 for right lower extremity infection and purulent discharge. Neurology is consulted for stroke. Folate was felt the patient has cellulitis over the right lower extremity and the patient was started on antibiotic. Today patient was unresponsive at 8:01am today and as a result of stroke code was activated. Per the nurse the last normal state was at 5am. Patient was also given 0.4 mg Narcan at 813 and 2 mg Ativan and 912 IV and then around 9:30 the patient's waking up. Upon seeing the patient he stated he is doing well other this this infection that is having over the right lower extremity that been going on for some time. He denies of headache, focal weakness, numbness, visual disturbance. Patient stated he is compliant with his coumadin and not sure why his INR is subtherapeutic. Regarding stroke code. CT head was done and it is reported as New focal area of low attenuation in the brainstem may be artificaual or may be secondary to vascular insult. Recommend correlation with MRI. No evidence for acute intracranial hemorrhage midline shift or mass effect. Brain volume loss, chronic microvascular ischemic changes, bilateral lacunar infarct, no significant change at. Focal area of low attenuation in the medial aspect of the right frontal lobe may related to remote insult, significant change compared to prior. I personally reviewed the CT of the head and the patient does have hypodensity but that seems not acute O in the ely bilaterally and neck could be artifactual. I honestly did not appreciate any acute or subacute ischemia. CT angiography is reported as mild narrowing at the bilateral carotid bifurcation, left greater than the right. Mild narrowing at the origin of the left internal carotid artery. Mild narrowing at the left MCA M1 segment distally. No complete occlusion, aneurysm or dissection seen. Advanced ball loss emphysema change in the upper long. Patient POC glucose around 801am today is 84 No IV tpa since per nurse she was notified he was outside window. The A-team spoke with Dr. Montoya (stroke) attending travel registered nurse oncology. Some of the other work-up: Last vital sign: 152/77, HR 62, RR 18, temp 96.9F axillary, Pulse oxygen 98% 3L Blood cell is 8.0K, hemoglobin is 11.6, hematocrit is 36.5. Platelet is 237K Sodium is 137, creatinine is 1.27, calcium is 8.1, AST of 20, ALT of 16. Coronavirus PCR was not detected. INR on presentation is 1.4 and was current one is 1.6. PT is 15.6, INR is 1.6 and the PTT is 27.8 and at some was current coagulation study. Review of Systems Review of system: The 12 point system was reviewed and apparent positive and negative per HPI. Past Medical History Past Medical History: Atrial Fibrillation, Asthma, COPD, CVA/TIA, Diabetes Mellitus, Deep Vein Thrombosis (DVT), GERD/Reflux, Hyperlipidemia, Hypertension, Neurologic Disorder, Osteoarthritis (OA), Pneumonia, Pulmonary Embolus (PE), Skin Disorder, Vascular Disorder Additional Past Medical History / Comment(s): Pt admitted to [facility] on 11/20/20 with hyperkalemia, hyperglycemia, uncontrolled diabetes. Other hx: Lupus anticoagulant, DVTs bilateral legs, PEs bilateral lungs, pt has isabell filter, L AKA/wheelchair bound, NIDDM type II, neuropathy bilateral hands, wound care patient for buttock wound, now healed, TIAs, pneumothorax, past migraines, chronic low back pain, R leg edema at times, varicosities. History of Any Multi-Drug Resistant Organisms: MRSA Date of last positivie culture/infection: 02/28/20 MDRO Source:: MRSA FOOT Past Surgical History: Adenoidectomy, Appendectomy, Tonsillectomy Additional Past Surgical History / Comment(s): 1980s [place] filter, stents in vessels "in pelvic area", total L hip arthroplasty, vein strippings, colonoscopy. left leg amputation Past Anesthesia/Blood Transfusion Reactions: No Reported Reaction Additional Past Anesthesia/Blood Transfusion Reaction / Comment(s): Pt has received blood in past without reaction. Past Psychological History: No Psychological Hx Reported Additional Psychological History / Comment(s): Pt currently living with his albina. He has a home care nurse thru [facility] for wound care. He has a glu cometer. He has a nebulizer but it is in his own home. Pt states he no longer drives and that getting to appts will be difficult for him. Smoking Status: Current every day smoker Past Alcohol Use History: None Reported Additional Past Alcohol Use History / Comment(s): Pt startes smoking in 1969 and is a ppd smoker. Past Drug Use History: None Reported - Past Family History Mother Family Medical History: Coronary Artery Disease (CAD), Myocardial Infarction ([place]), Vascular Disorder Additional Family Medical History / Comment(s): heart disease, peripheral vascular disease. Father Family Medical History: Diabetes Mellitus, Renal Disease Medications and Allergies Home Medications Medication Instructions Recorded Confirmed Type Atorvastatin [Lipitor] 80 mg PO HS 01/09/14 06/02/21 History Topiramate [Topamax] 25 mg PO BID 01/09/14 06/02/21 History Nortriptyline [Pamelor] 50 mg PO HS 08/15/19 06/02/21 History Omeprazole [PriLOSEC] 20 mg PO BID 08/15/19 06/02/21 History Aspirin 81 mg PO DAILY 30 Days #30 chew 08/26/19 06/02/21 Rx Loratadine 10 mg PO HS 10/30/19 06/02/21 History Metoprolol Succinate (ER) [Toprol 50 mg PO DAILY 02/29/20 06/02/21 History XL] Docusate [Colace] 100 mg PO HS 05/19/20 06/02/21 History Albuterol Nebulized [Ventolin 2.5 mg INHALATION RT-QID PRN 10/16/20 06/02/21 History Nebulized] Budesonide/Formoterol Fumarate 2 puff INHALATION RT-BID 10/16/20 06/02/21 History [Symbicort 160-4.5 Mcg Inhaler] Multivitamins, Thera [Multivitamin 1 tab PO DAILY 10/16/20 06/02/21 History (formulary)] Tiotropium [place] [Spiriva 2 spray INHALATION RT-DAILY 10/16/20 06/02/21 History Respimat] oxyCODONE-APAP 10-325MG [Percocet 1 tab PO Q6H PRN 10/16/20 06/02/21 History 10-325 mg] Furosemide [Lasix] 40 mg PO DAILY #30 tablet 12/29/20 06/02/21 Rx Amiodarone [Cordarone] 200 mg PO TID 06/02/21 06/02/21 History Celecoxib [CeleBREX] 200 mg PO DAILY 06/02/21 06/02/21 History DULoxetine HCL [Cymbalta] 30 mg PO DAILY 06/02/21 06/02/21 History Fluticasone Nasal [place] [Flonase 2 spray EA NOSTRIL DAILY 06/02/21 06/02/21 History Nasal [place]] Glimepiride [Amaryl] 4 mg PO AC-BRKFST 06/02/21 06/02/21 History Pioglitazone [Actos] 30 mg PO DAILY 06/02/21 06/02/21 History Potassium Chloride [Klor-Con 10 ER] 10 meq PO DAILY 06/02/21 06/02/21 History Pregabalin [Lyrica] 300 mg PO BID 06/02/21 06/02/21 History Warfarin [Coumadin] 3 - 4.5 mg PO DIRECTED 06/02/21 06/02/21 History lisinopriL 20 mg PO DAILY 06/02/21 06/02/21 History metFORMIN HCL 500 mg PO BID 06/02/21 06/02/21 History Allergies Allergy/AdvReac Type Severity Reaction Status Date / Time baclofen Allergy Unknown Verified 06/02/21 13:00 Physical Examination - Vital Signs Vital Signs: Vital Signs Temp Pulse Pulse Resp BP BP Pulse Ox 06/06/21 11:59 96.9 F L 62 18 152/77 98 06/06/21 11:20 69 16 173/90 96 06/06/21 11:09 64 16 151/79 99 06/06/21 10:45 66 16 155/81 95 06/06/21 10:17 66 16 144/79 95 06/06/21 09:58 61 16 144/80 97 06/06/21 09:57 58 L 16 164/77 96 06/06/21 09:30 18 06/06/21 08:50 63 184/91 96 06/06/21 08:42 184/90 94 L 06/06/21 08:13 12 06/06/21 08:00 68 06/06/21 04:35 97.7 F 57 L 20 149/81 91 L 06/05/21 20:56 98.2 F 58 L 16 114/70 94 L 06/05/21 15:46 56 L 06/05/21 15:33 56 L Intake and Output 06/05/21 06/06/21 06/06/21 22:59 06:59 14:59 Intake Total 900 600 618 Output Total 1000 700 500 Balance -100 -100 118 Intake: Intake, IV Titration 900 600 500 Amount Sodium Chloride 0.9% 1, 900 600 000 ml @ 75 mls/hr IV . [id number] HELENE Rx#:[id number] Vancomycin 2,000 mg In 500 Sodium Chloride 0.9% 500 ml 500 ml @ 167 mls/hr IVPB Q16H HELENE Rx#: [id number] Oral 118 Output: Urine 1000 700 500 Other: Voiding Method Toilet Urinal Urinal GENERAL: The patient is lying in bed and is not in acute distress. CHEST: The heart rate is regular rate rhythm. No murmurs to auscultation. No carotid bruit bilaterally. LUNG: Clear to auscultation bilaterally no wheezing noted throughout. Not labored breathing. ABDOMEN/GI: Bowel sounds present in all 4 quadrants. No tenderness to palpation throughout. INTEGUMENTARY: Has erythema and tender to touch over the right lower extremity. NEUROLOGICAL: Higher mental function: The patient is awake, alert, oriented to self, place and time. Patient is following commands. No aphasia and no neglect. Cranial nerves: The pupils are round, equal and reactive to light and accommodation. Visual swartz are full to confrontation throughout. Extraocular movement is intact no nystagmus is noted. Facial sensation is normal to touch throughout. The facial strength is normal throughout. Hearing is mildly decreased bilaterally to hand rub. Tongue is midline and moved [id number] without any difficulty. No dysarthria is noted. Shoulder shrug is normal bilaterally. Motor: Gait is deferred. The strength is 5 over 5 throughout upper. The right lower extremity is able to lift above gravity but is limited because of pain. Has above left knee amputation. Normal tone and bulk. Cerebellum: Normal finger to nose bilaterally. Sensation: Sensation is normal to touch throughout. Reflexes (right/left): 2+ throughout upper while lower is 1+ and has above knee amputation.. Plantars is mute over the right. Left lower is amputated. Results - Laboratory Findings CBC and BMP: 06/06/21 08:59 06/06/21 08:59 Abnormal Lab Findings: Abnormal Labs 06/02/21 06/02/21 06/03/21 09:45 09:45 06:35 RBC Hgb 12.6 L Hct RDW 17.1 H Lymphocytes # PT INR ABG pO2 ABG O2 Saturation Sodium 135 L Chloride 110 H 112 H Carbon Dioxide 19 L 16 L BUN 24 H Creatinine Glucose 61 L POC Glucose (mg/dL) Calcium 8.3 L Alkaline Phosphatase 137 H Albumin 06/03/21 06/03/21 06/03/21 06:35 06:43 07:11 RBC 4.09 L Hgb 11.6 L Hct 37.2 L RDW 16.9 H Lymphocytes # PT 14.5 H INR 1.4 H ABG pO2 ABG O2 Saturation Sodium Chloride Carbon Dioxide BUN Creatinine Glucose POC Glucose (mg/dL) 65 L Calcium Alkaline Phosphatase Albumin 06/03/21 06/03/21 06/03/21 07:33 12:15 17:10 RBC Hgb Hct RDW Lymphocytes # PT INR ABG pO2 ABG O2 Saturation Sodium Chloride Carbon Dioxide BUN Creatinine Glucose POC Glucose (mg/dL) 65 L 124 H 173 H Calcium Alkaline Phosphatase Albumin 06/03/21 06/04/21 06/04/21 20:41 07:07 07:07 RBC 4.09 L Hgb 11.6 L Hct 36.4 L RDW 17.1 H Lymphocytes # 0.9 L PT INR ABG pO2 ABG O2 Saturation Sodium Chloride 112 H Carbon Dioxide 19 L BUN Creatinine 1.45 H Glucose 151 H POC Glucose (mg/dL) 211 H Calcium 8.3 L Alkaline Phosphatase Albumin 06/04/21 06/04/21 06/04/21 07:55 12:29 12:53 RBC Hgb Hct RDW Lymphocytes # PT 15.3 H INR 1.5 H ABG pO2 ABG O2 Saturation Sodium Chloride Carbon Dioxide BUN Creatinine Glucose POC Glucose (mg/dL) 147 H 134 H Calcium Alkaline Phosphatase Albumin 06/04/21 06/04/21 06/05/21 17:59 20:25 06:03 RBC Hgb Hct RDW Lymphocytes # PT 14.6 H INR 1.4 H ABG pO2 ABG O2 Saturation Sodium Chloride Carbon Dioxide BUN Creatinine Glucose POC Glucose (mg/dL) 167 H 155 H Calcium Alkaline Phosphatase Albumin 06/05/21 06/05/2121 06:03 06:03 13:04 RBC 4.05 L Hgb 11.3 L Hct 36.0 L RDW 17.8 H Lymphocytes # PT INR ABG pO2 ABG O2 Saturation Sodium Chloride 110 H Carbon Dioxide 20 L BUN Creatinine 1.26 H Glucose 111 H POC Glucose (mg/dL) 170 H Calcium 8.2 L Alkaline Phosphatase Albumin 06/05/21 06/05/21 06/06/21 17:43 20:03 08:39 RBC Hgb Hct RDW Lymphocytes # PT INR ABG pO2 53 L* ABG O2 Saturation 86.8 L Sodium Chloride Carbon Dioxide BUN Creatinine Glucose POC Glucose (mg/dL) 143 H 143 H Calcium Alkaline Phosphatase Albumin 06/06/21 06/06/21 06/06/21 08:59 08:59 08:59 RBC 4.23 L Hgb 11.6 L Hct 36.5 L RDW 17.5 H Lymphocytes # PT 15.6 H INR 1.6 H ABG pO2 ABG O2 Saturation Sodium Chloride 108 H Carbon Dioxide BUN Creatinine 1.27 H Glucose POC Glucose (mg/dL) Calcium 8.1 L Alkaline Phosphatase Albumin 3.3 L Assessment and Plan Assessment: * Episode of unresponsiveness. Unsure exact etiology. Possible metabolic encephalopathy or due to underlying infection from cellulitis. Rule out stroke vs seizure (I personally reviewed CT head and do not appreciate any acute or subacute ischemia from history and exam at this time does not appear like stroke). No IV tpa since outside window. * History of atrial fibrillation on coumadin and is subtherapeutic INR (also had subtherapeutic INR in the past). Patient stated he is compliant taking medication * Right lower extremity cellulitis * History Migraine * Diabetes mellitus * Acute on chronic kidney insufficiency * Hypertension * History of Hyperlipidemia * Left knee amputation * History of pulmonary embolism status post Isabell filter Plan: * A-team gave the patient Keppra 1000 mg once loading and started the patient on 500mg every 12 hours for suspected seizure. Patient is on his home medication of Topiramate 25mg 1 tab bid for his migraine. Therefore I stopped Keppra and if patient has any seizure will increase Topiramate from 25mg 1 tab bid to 50mg bid (medication is also antiepileptic). * An EEG is ordered stat by the A-team and is pending (there is no tech today). * I'll get a repeat CT of the head for tomorrow. Unlikely the patient will get MRI since the patient has a Green filter but will try to find out. * The patient was started on Plavix 75 mg daily by the A-team in addition to his Coumadin. I recommend the to discontinue the Plavix since the Coumadin has not failed (since it is subtherapeutic). Recommend INR 2-3. Possibly consider switching to Eliquis and will defer that to the primary team. * He is on Lipitor 80 mg daily at bedtime. * Ordered the echo, lipid panel, TSH. * Every 4 hours neuro checks * Placed on cardiac monitoring * PT, OT and FILM EXAMINER are consulted. * Infection disease on board. * We'll defer the rest of the medical management to the primary team. * DVT prophylaxis the patient is on Coumadin. The plan is discussed with the patient's nurse. Thank you for the consultation. Dr. Carreon will start neurology service tomorrow AM. Tanvir Perez MD Neuro-Hospitalist Time with Patient: Greater than 30
[2021-06-06] MEDS: HYDROmorphone 0.5 MG/0.5 ML SYRINGE IVP PRN (17:23)
[2021-06-06 17:31] LABS: Glucose,Whole Blood 165 mg/dL (75-99)
[2021-06-06] MEDS ORDERED: WARFARIN 5 MG TAB PO ONE (18:00)
[2021-06-06 18:32] LABS: Amphetamine Screen,Urine Not Detected (NotDetected); Barbiturate Screen,Urine Not Detected (NotDetected); Benzodiazepines Screen,Urine Not Detected (NotDetected); Cocaine Screen,Urine Not Detected (NotDetected); Methadone Screen, Urine Not Detected (NotDetected); Opiate Screen,Urine Not Detected (NotDetected); Oxycodone Screen, Urine Detected (NotDetected); Phencyclidine Screen,Urine Not Detected (NotDetected); Tricyclic Antidepressant,Urine Detected (NotDetected); Urn Cannabinoid Scrn Not Detected (NotDetected)
[2021-06-06 20:21] LABS: Glucose,Whole Blood 170 mg/dL (75-99)
[2021-06-06] MEDS ORDERED: levETIRAcetam IV 500 MG in SODIUM CHLORIDE 0.9% 100 ML IVPB SCH (21:00)
[2021-06-06] MEDS: ATORVASTATIN 80 MG TAB PO SCH (21:15)
[2021-06-06] MEDS: DOCUSATE 100 MG CAP PO SCH (21:15)
[2021-06-06] MEDS: LORATADINE 10 MG TAB PO SCH (21:15)
[2021-06-06] MEDS: NORTRIPTYLINE 25 MG CAP PO SCH (21:33)
--- NOTE | 2021-06-06 22:51 | PN ---
PROGRESS NOTE DATE OF SERVICE: 06/06/2021 REASON FOR FOLLOWUP: Right lower extremity cellulitis, MRSA. INTERVAL HISTORY: The patient is afebrile, has been breathing comfortably. The patient denies having any chest pain, shortness of breath or cough. No worsening pain to the right lower extremity. PHYSICAL EXAMINATION: Blood pressure 123/71, pulse of 99, temperature 97.5. He is 99% on 3 L nasal cannula. General description is a middle-aged male lying in bed in no distress. Respiratory system: Unlabored breathing, clear to auscultation anteriorly. Heart S1, S2. Regular rate and rhythm. Abdomen soft, no tenderness. LABS: Urine drug screen was positive for oxycodone and tricyclic. Local culture with MRSA. Blood culture negative. DIAGNOSTIC IMPRESSION AND PLAN: Patient with acute right lower extremity cellulitis with some superficial ulceration and drainage. Culture with MRSA. Patient is covered with vancomycin. Kidney function will be monitored closely. With mental status changes, neurologic workup is in progress. Continue supportive care. MMODL / IJN: [id number] /
[2021-06-07] MEDS: IPRATROPIUM 0.5 MG/2.5 ML NEBU INHALATION SCH ×5 (00:09→20:27)
--- NOTE | 2021-06-07 00:33 | P.PN ---
Subjective Progress Note Date: 06/06/21 This Is a 66-year-old male who was recently admitted with acute right leg cellulitis and failed outpatient treatment and is being closely monitored. ID following and patient is maintained on IV vancomycin and will continue. Patient was unresponsive this morning and an A team was called and code stroke activated. Patient had CT of the brain and CTA and neurology consulted. Patient was also having some synchronized bilateral hand twitching noted during the code and CT and was given ativan and a dose of Keppra for possible seizure. Labs: White blood count is 8.0, hemoglobin is 11.6, platelets are 237, INR is 1.6, sodium is 137, potassium is 4.5, BUN is 16, creatinine is 1.27, troponin 0.017, Vanco trough 26.6 Review of systems: unable to obtain as patient is currently minimally responsive All medications have been reviewed Active Medications Acetaminophen (Acetaminophen Tab 325 Mg Tab) 650 mg PO Q6HR PRN PRN Reason: Mild Pain or Fever > 100.5 Albuterol Sulfate (Albuterol Nebulized 2.5 Mg/3 Ml) 2.5 mg INHALATION RT-QID PRN PRN Reason: Shortness Of Breath Amiodarone HCl (Amiodarone 200 Mg Tab) 200 mg PO TID [facility] Last Admin: 06/06/21 12:09 Dose: Not Given Documented by: Atorvastatin Calcium (Atorvastatin 80 Mg Tab) 80 mg PO [facility] Last Admin: 06/05/21 20:49 Dose: 80 mg Documented by: Budesonide/Formoterol Fumarate (Symbicort 160-4.5 Mcg Inhaler) 2 puff INHALATION RT-BID [facility] Last Admin: 06/06/21 08:41 Dose: Not Given Documented by: Clopidogrel Bisulfate (Clopidogrel 75 Mg Tab) 75 mg PO DAILY [facility] Docusate Sodium (Docusate 100 Mg Cap) 100 mg PO [facility] Last Admin: 06/05/21 20:49 Dose: 100 mg Documented by: Duloxetine HCl (Duloxetine Hcl 30 Mg Capsule.Dr) 30 mg PO DAILY [facility] Last Admin: 06/05/21 08:51 Dose: 30 mg Documented by: Fluticasone Propionate (Fluticasone 50mcg/[place] Nasal 16gm) 2 spray EA NOSTRIL DAILY [facility] Last Admin: 06/06/21 12:09 Dose: Not Given Documented by: Furosemide (Furosemide 40 Mg Tab) 40 mg PO DAILY [facility] Last Admin: 06/05/21 08:51 Dose: 40 mg Documented by: Glimepiride (Glimepiride 4 Mg Tab) 4 mg PO AC-BRKFST [facility] Last Admin: 06/06/21 12:08 Dose: Not Given Documented by: Hydromorphone HCl (Hydromorphone 0.5 Mg/0.5 Ml Syringe) 0.5 mg IVP Q3HR PRN PRN Reason: Pain Last Admin: 06/04/21 12:56 Dose: 0.5 mg Documented by: Sodium Chloride (Saline 0.9%) 1,000 mls @ 75 mls/hr IV .[id number] [facility] Last Admin: 06/06/21 10:19 Dose: 75 mls/hr Documented by: Vancomycin HCl 2,000 mg/ (Sodium Chloride) 500 mls @ 167 mls/hr IVPB Q16H [facility] Last Admin: 06/06/21 12:37 Dose: 167 mls/hr Documented by: Levetiracetam 500 mg/ Sodium (Chloride) 105 mls @ 400 mls/hr IVPB Q12HR [facility] Ipratropium [place] (Ipratropium 0.5 Mg/2.5 Ml Nebu) 0.5 mg INHALATION RT-QID [facility] Last Admin: 06/06/21 08:41 Dose: Not Given Documented by: Lisinopril (Lisinopril 20 Mg Tab) 20 mg PO DAILY [facility] Last Admin: 06/05/21 08:53 Dose: Not Given Documented by: Loratadine (Loratadine 10 Mg Tab) 10 mg PO HS [facility] Last Admin: 06/05/21 20:50 Dose: 10 mg Documented by: Lorazepam (Lorazepam 0.5 Mg Tab) 0.5 mg PO QID PRN PRN Reason: Anxiety Last Admin: 06/03/21 12:25 Dose: 0.5 mg Documented by: Meloxicam (Meloxicam 7.5 Mg Tab) 7.5 mg PO DAILY [facility] Last Admin: 06/05/21 08:52 Dose: 7.5 mg Documented by: Metformin HCl (Metformin 500 Mg Tab) 500 mg PO BID [facility] Last Admin: 06/06/21 12:10 Dose: Not Given Documented by: Metoprolol Succinate (Metoprolol Succinate (Er) 50 Mg Tab.Er.24h) 50 mg PO DAILY [facility] Last Admin: 06/05/21 08:51 Dose: Not Given Documented by: Miscellaneous Information (Warfarin Per Pharmacy) 1 each MISCELLANE DIRECTED PRN; Protocol PRN Reason: Per Protocol Multivitamins (Multivitamins, Thera 1 Each Tab) 1 each PO DAILY [facility] Last Admin: 06/05/21 08:51 Dose: 1 each Documented by: Naloxone HCl (Naloxone 0.4 Mg/Ml 1 Ml Vial) 0.2 mg IV Q2M PRN PRN Reason: Opioid Reversal Nortriptyline HCl (Nortriptyline 25 Mg Cap) 50 mg PO HS [facility] Last Admin: 06/05/21 20:49 Dose: 50 mg Documented by: Oxycodone/Acetaminophen (Oxycodone-Apap 10-325mg 1 Each Tab) 1 each PO Q6H PRN PRN Reason: Pain Last Admin: 06/05/21 16:09 Dose: 1 each Documented by: Pantoprazole Sodium (Pantoprazole 40 Mg Tablet) 40 mg PO AC-BID [facility] Last Admin: 06/06/21 12:08 Dose: Not Given Documented by: Pioglitazone HCl (Pioglitazone 30 Mg Tab) 30 mg PO DAILY [facility] Last Admin: 06/05/21 08:51 Dose: 30 mg Documented by: Potassium Chloride (Potassium Chloride Er 10 Meq Tab.Er.Prt) 10 meq PO DAILY [facility] Last Admin: 06/05/21 08:51 Dose: 10 meq Documented by: Pregabalin (Pregabalin 100 Mg Cap) 300 mg PO BID [facility] Last Admin: 06/06/21 12:10 Dose: Not Given Documented by: Topiramate (Topiramate 25 Mg Tab) 25 mg PO BID [facility] Last Admin: 06/06/21 12:10 Dose: Not Given Documented by: Warfarin Sodium (Warfarin 5 Mg Tab) 5 mg PO ONCE@1800 ONE Stop: 06/06/21 18:01 Physical exam: Gen: This is a 66-year-old male minimally responsive, responding only briefly to painful stimuli and extremely lethargic during exam. Temp is 97.7F, pulse is 57, respirations are 20, blood pressure is 149/81, oxygen saturation is 91% on room air HEENT: Head is atraumatic, normocephalic. Pupils equal, round. Sclerae is anicteric. NECK: Supple. No JVD. No lymphadenopathy. No thyromegaly. LUNGS: diminished breath sounds bilaterally with No wheezes or rhonchi. No intercostal retractions. HEART: S1, S2 muffled. irregular ABDOMEN: Soft. Bowel sounds are present. No masses. No tenderness. EXTREMITIES: No pedal edema. No calf tenderness. 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 Acute right leg cellulitis with failure of outpatient treatment with possible sepsis, present on admission with change in mental status, acute metabolic encephalopathy, present on admission Cultures growing MRSA History of left [id number] amputation History of atrial fibrillation, chronic history of asthma, chronic intermittent history of COPD Cerebrovascular accident, TIA Diabetes mellitus type 2 uncontrolled with hyperglycemia History of deep vein thrombosis Gastroesophageal reflux disease hypertension Hyperlipidemia history of degenerative joint disease History of pneumonia History of pulmonary embolism history of vascular disorder history of hyperkalemia history of lupus History of deep vein thrombosis of bilateral legs history of Zina filter history of peripheral neuropathy, bilateral hands wheelchair-bound history of TIA history of MRSA history of adenoidectomy history of appendectomy History of tonsillectomy history of nicotine dependence Obesity with body mass index of 36.5 No code Plan: Recommend to continue with current medications, management, and symptomatic treatment. Patient was an A team this morning for altered mental status and un responsive to painful stimuli and code stroke called. Neurology conAreas of low attenuation in the brain stem may be artifactual or maybe secondary to vascular insult recommending correlation with MRI with no evidence of acute intracranial hemorrhage or midline shift or mass noted, brain volume loss, chronic microvascular ischemic changes not changed from previous exam and focal area of low attenuation in the medial aspect of the right frontal lobe may be related to remote insult. Mild narrowing at the bilateral carotid bifurcation, left greater than right. with no occlusion, aneurysm or dissection noted on CTA and also advanded bullous emphysema changes in the upper lungs. Chest xray was also done showing a patchy density in the left lower lobe with chronic lung disease and emphysema. Patient awaiting transfer to [address] [place] [address] for close monitoring. Patient was evaluated by neurology and feels the findings are artifactual and will repeat CT brain. Patient has zina filter and maintained on coumadin. Patient was given a dose of Keppra and plavix during the code which was discontinued by neurology. INR subtherapeutic and will have pharmacy dose and repeat am labs. Patient to continue with vancomycin and ID following closely. Will discuss with social work about possible ECF placement and accepting facilities. Due to multiple complex medical issues, prognosis is guarded. Objective - Vital Signs Vital signs: Vital Signs Temp 97.7 F 06/06/21 04:35 Pulse 66 06/06/21 10:17 Resp 16 06/06/21 10:17 BP 144/79 06/06/21 10:17 Pulse Ox 95 06/06/21 10:17 Intake & Output 06/05/21 06/06/21 06/06/21 18:59 06:59 18:59 Intake Total 900 600 Output Total 1000 700 Balance -100 -100 Intake: Intake, IV Titration 900 600 Amount Sodium Chloride 0.9% 1, 900 600 000 ml @ 75 mls/hr IV . [id number] [facility] Rx#:[id number] Output: Urine 1000 700 Other: Voiding Method Urinal Toilet Incontinent Urinal - Labs CBC & Chem 7: 06/06/21 08:59 06/06/21 08:59 Labs: Abnormal Lab Results - Last 24 Hours (Table) 06/05/21 06/05/21 06/05/21 Range/Units 13:04 17:43 20:03 RBC (4.30-5.90) m/uL Hgb (13.0-17.5) gm/dL Hct (39.0-53.0) % RDW (11.5-15.5) % PT (9.0-12.0) sec INR (<1.2) ABG pO2 (83-108) mmHg ABG O2 Saturation (94-97) % Chloride (98-107) mmol/L Creatinine (0.66-1.25) mg/dL POC Glucose (mg/dL) 170 H 143 H 143 H (75-99) mg/dL Calcium (8.4-10.2) mg/dL Albumin (3.5-5.0) g/dL 06/06/21 06/06/21 06/06/21 Range/Units 08:39 08:59 08:59 RBC 4.23 L (4.30-5.90) m/uL Hgb 11.6 L (13.0-17.5) gm/dL Hct 36.5 L (39.0-53.0) % RDW 17.5 H (11.5-15.5) % PT 15.6 H (9.0-12.0) sec INR 1.6 H (<1.2) ABG pO2 53 L* (83-108) mmHg ABG O2 Saturation 86.8 L (94-97) % Chloride (98-107) mmol/L Creatinine (0.66-1.25) mg/dL POC Glucose (mg/dL) (75-99) mg/dL Calcium (8.4-10.2) mg/dL Albumin (3.5-5.0) g/dL 06/06/21 Range/Units 08:59 RBC (4.30-5.90) m/uL Hgb (13.0-17.5) gm/dL Hct (39.0-53.0) % RDW (11.5-15.5) % PT (9.0-12.0) sec INR (<1.2) ABG pO2 (83-108) mmHg ABG O2 Saturation (94-97) % Chloride 108 H (98-107) mmol/L Creatinine 1.27 H (0.66-1.25) mg/dL POC Glucose (mg/dL) (75-99) mg/dL Calcium 8.1 L (8.4-10.2) mg/dL Albumin 3.3 L (3.5-5.0) g/dL Microbiology - Last 24 Hours (Table) 06/04/21 02:15 Gram Stain - Final Leg - Right Wound Culture - Final Methicillin resist S. aureus 06/02/21 09:57 Blood Culture - Preliminary Blood No Growth after 72 hours
[2021-06-07] MEDS: AMIODARONE 200 MG TAB PO SCH ×4 (01:10→22:54)
[2021-06-07 06:05] LABS: Glucose,Whole Blood 136 mg/dL (75-99)
[2021-06-07] MEDS: PANTOPRAZOLE 40 MG TABLET PO SCH ×2 (06:45→16:46)
[2021-06-07] MEDS: GLIMEPIRIDE 4 MG TAB PO SCH (06:45)
[2021-06-07 07:27] LABS: Anisocytosis Slight; Basophils % (A) 0 %; Eosinophils # (A) 0.2 k/uL (0-0.7); Eosinophils % (A) 3 %; HGB 11.1 gm/dL (13.0-17.5); Hypochromasia Moderate; Lymphocytes # (A) 1.5 k/uL (1.0-4.8); Lymphocytes % (A) 19 %; MCH 29.1 pg (25.0-35.0); MCHC 32.7 g/dL (31.0-37.0); Mean Platelet Volume 8.1; Monocytes # (A) 0.5 k/uL (0-1.0); Monocytes % (A) 6 %; Neutrophils # (A) 5.7 k/uL (1.3-7.7); Neutrophils % (A) 70 %; Platelet Count 191 k/uL (150-450); RBC 3.82 m/uL (4.30-5.90); RDW 17.5 % (11.5-15.5); WBC 8.1 k/uL (3.8-10.6)
[2021-06-07 07:59] LABS: INR 1.7 (<1.2); Prothrombin Time 16.7 sec (9.0-12.0)
[2021-06-07 08:28] LABS: Potassium 4.4 mmol/L (3.5-5.1)
[2021-06-07] MEDS: DULoxetine HCL 30 MG CAPSULE.DR PO SCH (08:48)
[2021-06-07] MEDS: MELOXICAM 7.5 MG TAB PO SCH (08:48)
[2021-06-07] MEDS: PIOGLITAZONE 30 MG TAB PO SCH (08:49)
[2021-06-07] MEDS: PREGABALIN 100 MG CAP PO SCH ×2 (08:49→20:14)
[2021-06-07] MEDS: POTASSIUM CHLORIDE ER 10 MEQ TAB.ER.PRT PO SCH (08:49)
[2021-06-07] MEDS: MULTIVITAMINS, THERA 1 EACH TAB PO SCH (08:49)
[2021-06-07] MEDS: TOPIRAMATE 25 MG TAB PO SCH ×2 (08:49→20:15)
[2021-06-07] MEDS: CLOPIDOGREL 75 MG TAB PO SCH (08:49)
[2021-06-07] MEDS: FUROSEMIDE 40 MG TAB PO SCH (08:49)
[2021-06-07] MEDS: metFORMIN 500 MG TAB PO SCH ×2 (08:49→20:15)
[2021-06-07] MEDS: lisinopriL 20 MG TAB PO SCH (08:50)
[2021-06-07] MEDS: oxyCODONE-APAP 10-325MG 1 EACH TAB PO PRN ×2 (08:53→16:47)
[2021-06-07] MEDS: METOPROLOL SUCCINATE (ER) 50 MG TAB.ER.24H PO SCH (09:15)
--- NOTE | 2021-06-07 09:53 | CT ---
EXAMINATION TYPE: CT brain wo con DATE OF EXAM: 06/07/2021 COMPARISON: 06/06/2021 INDICATION: Follow up, Altered mental status DLP: 1090.4 mGycm, Automated exposure control for dose reduction was used. CONTRAST: None CT of the brain is performed utilizing 3 mm thick sections through the posterior fossa and 3 mm thick sections through the remaining calvarium. Study is performed within 24 hours of arrival to the hosp ital. No abnormal hyperdensity is present to suggest an acute intracranial hemorrhage. No mass lesion is evident. No acute infarcts are evident. There is hypodensity within the central brainstem could be some chroni c change. This area was present on the recent comparison and appears similar. If closer evaluation wo uld be of benefit, MRI would be recommended for greater sensitivity. Ventricles and sulci are appropriate for the patient age. Paranasal sinuses and mastoid air cells within the [id number] are clear. IMPRESSIONS: 1. Suspected white matter change within the brainstem which is age indeterminate. Consider MRI for additional evaluation.
[2021-06-07] MEDS: SYMBICORT 160-4.5 MCG INHALER INHALATION SCH ×2 (10:14→20:27)
--- NOTE | 2021-06-07 10:40 | ECHOF ---
Referral Reason:stroke MEASUREMENTS -------- HEIGHT: 188.0 cm WEIGHT: 136.1 kg BP: FINDINGS -------- This was a technically difficult study with suboptimal views. Limited Study Overall left ventricular systolic function is low-normal with, an EF between 50 - 55 %. Lumason used There is no pericardial effusion. CONCLUSIONS -------- 1. This was a technically difficult study with suboptimal views. 2. Limited Study 3. Overall left ventricular systolic function is low-normal with, an EF between 50 - 55 %. 4. Lumason used 5. There is no pericardial effusion. MACERATOR OPERATOR: Courtney Villegas RDCS
[2021-06-07 10:56] LABS: Chol/HDL Ratio 3.01 Ratio; VLDL Calculation 18.48 mg/dL (5.00-40.00)
[2021-06-07] MEDS: VANCOMYCIN 2,000 MG in SODIUM CHLORIDE 0.9% 500 ML 500 ML IVPB SCH (11:35)
[2021-06-07] MEDS: FLUTICASONE 50MCG/SPRAY NASAL 16GM EA NOSTRIL SCH (11:36)
[2021-06-07 11:43] LABS: Glucose,Whole Blood 171 mg/dL (75-99)
--- NOTE | 2021-06-07 15:12 | CDI ---
Documentation Clarification Form Date: 06/07/2021 03:00:20 PM From: Alessandra Beard CCS, CCDS Admit Date: 06/02/2021 11:31:00 AM Patient Name: Checo Quijano Visit Number: [id number] Discharge Date: ATTENTION: The Clinical Documentation Specialists (CDI) and [facility] Coding Staff appreciate your assistance in clarifying documentation. Please respond to the clarification below the line at the bottom and electronically sign. The CDI & [facility] Coding staff will review the response and follow-up if needed. Please note: Queries are made part of the Legal Health Record. If you have any questions, please contact the author of this message via ITS. Dr. Tanvir Perez: Unspecified CKD is documented in the 06/06 Neurology Consult. (Nephrology is not consulted and CKD or insufficiency is not documented elsewhere in the record) Additional clarification regarding the stage of CKD is requested. History/Risk Factors per the 06/02 H/P: Atrial Fibrillation, Asthma, COPD/Emphysema, CVA, IDDM II, DVT, Right AKA, MRSA, GERD, Hypertension, Hyperlipidemia, CAD. Clinical Indicators per the 06/02 ED Note: Presented with Altered mental status and evaluation of RLE infection, swelling, purulent drainage and multiple blisters. Admit with Ulcer Right Lower Extremity, skin breakdown and Cellulitis. BUN: 06/02: 24; 06/03: 18; 06/04: 19; 06/05: 18; 06/06: 16; 06/07: 15 Creatinine: 06/02: 1.11; 06/03: 1.06; 06/04: 1.45; 06/05: 1.26; 06/06: 1.27; 06/07: 1.24 GFR: 06/02: 70; 06/03: 74; 06/04: 51; 06/05: 60; 06/06: 59; 06/07: 61 Historical GFR: 03/11/2020: >90. 10/17/2020: 49. 5/163. 12/26/2020: 60. Treatment 06/02: po Protonix, IV Rocephin 2,000 mg x1, IV Na Cl 500 mls @ 999 mls/hr q31M, IV Na Cl 1,000 mls @ 75 mls/hr [id number], IV Morphine 4 mg q4Hr/prn, IV Vancomycin 2.5 mg x1, INH Ventolin QID, po Percocet q6H prn, po Glucophage 500 mg BID. Please clarify the stage of the CKD, if known: [ ] CKD Stage 1 (GFR > 90) [ ] CKD Stage 2 (GFR 60-89) [ ] CKD Stage 3 (GFR 30-59) [ ] CKD Stage 3a (GFR 45-59) [ ] Other, please specify [ ] Unable to determine (Template Last revised: August 2020) --->Unable to determine MTDD
[2021-06-07 16:34] LABS: Glucose,Whole Blood 147 mg/dL (75-99)
--- NOTE | 2021-06-07 17:58 | P.PN ---
Subjective Progress Note Date: 06/07/21 Patient was seen for a follow-up. Patient initially seen by Dr. Tanvir Perez. Please refer to his note for details. Patient came with right leg cellulitis. Stroke code was initiated at his patient was unresponsive. Patient had received Ativan prior. He was given Narcan. Patient offers no complaints. Laying comfortably in the bed. Slightly somnolent. Objective - Vital Signs Vital signs: Vital Signs Temp 97.7 F 06/07/21 16:00 Pulse 54 L 06/07/21 16:00 Resp 18 06/07/21 16:00 BP 140/69 06/07/21 16:00 Pulse Ox 98 06/07/21 16:00 Intake & Output 06/06/21 06/07/21 06/07/21 18:59 06:59 18:59 Intake Total 8016 154 0998 Output Total 1628 210 7440 Balance -407 -360 120 Intake: Intake, IV Titration 1100 600 Amount Sodium Chloride 0.9% 1, 600 600 000 ml @ 75 mls/hr IV . [id number] [facility] Rx#:[id number] Vancomycin 2,000 mg In 500 Sodium Chloride 0.9% 500 ml 500 ml @ 167 mls/hr IVPB Q16H [facility] Rx#: [id number] Oral 950 348 2202 Output: Urine 1303 778 5682 Other: Voiding Method Urinal Urinal Urinal - Exam Patient is slightly somnolent, but does a cup and follows commands. Patient is alert and oriented 3. Patient knows it is May 2021 and that he is in [facility] and name of the current president. He can name and repeat very well. On cranial nerve examination, his pupils are round and reacting, visual swartz are full on confrontation. Face is symmetric and tongue protrudes to the midline. On muscle strength testing there is no pronator drift and the strength is normal in both arms. Patient's strength is normal in the right leg distally and proximally. He has left below-knee amputation. Sensations are equal on either side with no neglect on double simultaneous stimulation. Patient is tremulous for pnzsio-dq-axxa testing but no ataxia. - Labs CBC & Chem 7: 06/07/21 06:46 06/07/21 06:46 Labs: Abnormal Lab Results - Last 24 Hours (Table) 06/06/21 06/06/21 06/07/21 Range/Units 18:10 20:19 05:55 RBC (4.30-5.90) m/uL Hgb (13.0-17.5) gm/dL Hct (39.0-53.0) % RDW (11.5-15.5) % PT (9.0-12.0) sec INR (<1.2) Chloride (98-107) mmol/L Glucose (74-99) mg/dL POC Glucose (mg/dL) 170 H 136 H (75-99) mg/dL Calcium (8.4-10.2) mg/dL Ur Oxycodone Screen Detected H (NotDetected) U Tricyclic Antidepress Detected H (NotDetected) 06/07/21 06/07/21 06/07/21 Range/Units 06:46 06:46 06:46 RBC 3.82 L (4.30-5.90) m/uL Hgb 11.1 L (13.0-17.5) gm/dL Hct 34.0 L (39.0-53.0) % RDW 17.5 H (11.5-15.5) % PT 16.7 H (9.0-12.0) sec INR 1.7 H (<1.2) Chloride 109 H (98-107) mmol/L Glucose 109 H (74-99) mg/dL POC Glucose (mg/dL) (75-99) mg/dL Calcium 8.0 L (8.4-10.2) mg/dL Ur Oxycodone Screen (NotDetected) U Tricyclic Antidepress (NotDetected) 06/07/21 06/07/21 Range/Units 11:35 16:30 RBC (4.30-5.90) m/uL Hgb (13.0-17.5) gm/dL Hct (39.0-53.0) % RDW (11.5-15.5) % PT (9.0-12.0) sec INR (<1.2) Chloride (98-107) mmol/L Glucose (74-99) mg/dL POC Glucose (mg/dL) 171 H 147 H (75-99) mg/dL Calcium (8.4-10.2) mg/dL Ur Oxycodone Screen (NotDetected) U Tricyclic Antidepress (NotDetected) Microbiology - Last 24 Hours (Table) 06/06/21 11:51 Blood Culture - Preliminary Blood No Growth after 24 hours 06/02/21 09:57 Blood Culture - Preliminary Blood No Growth after 120 hours 06/04/21 02:15 Gram Stain - Final Leg - Right Wound Culture - Final Methicillin resist S. aureus Assessment and Plan Assessment: * Episode of unresponsiveness. Unsure exact etiology. Possible metabolic encephalopathy or due to underlying infection from cellulitis. Rule out TIA. Current NIH stroke scale is 0. * History of atrial fibrillation on coumadin and is subtherapeutic INR (also had subtherapeutic INR in the past). Patient stated he is compliant taking medication * Right lower extremity cellulitis * History Migraine * Diabetes mellitus * Acute on chronic kidney insufficiency * Hypertension * History of Hyperlipidemia * History of Left below knee amputation * History of pulmonary embolism status post [place] filter Plan: * Patient currently on Coumadin. INR is still subtherapeutic 1.7. Target INR probable 2.0-3.0. May consider bridging with heparin. * Continue Topamax 50 mg twice a day for migraines. * Patient cannot have MRI because of placement of [place] filter. * Continue Lipitor 80 mg daily. * Other medical management as per IM. Recent tests: CT head was done and it is reported as New focal area of low attenuation in the brainstem may be artificaual or may be secondary to vascular insult. Recommend correlation with MRI. No evidence for acute intracranial hemorrhage midline shift or mass effect. Brain volume loss, chronic microvascular ischemic changes, bilateral lacunar infarct, no significant change at. Focal area of low attenuation in the medial aspect of the right frontal lobe may related to remote insult, significant change compared to prior. I personally reviewed the CT of the head and the patient does have hypodensity but that seems not acute O in the ely bilaterally and neck could be artifactual. I honestly did not appreciate any acute or subacute ischemia. CT angiography is reported as mild narrowing at the bilateral carotid bifurcation, left greater than the right. Mild narrowing at the origin of the left internal carotid artery. Mild narrowing at the left MCA M1 segment distally. No complete occlusion, aneurysm or dissection seen. Advanced bullous emphysema change in the upper long. No IV tpa since per nurse she was notified he was outside window. The A-team spoke with Dr. Montoya (stroke) attending corrections officer.
[2021-06-07] MEDS ORDERED: WARFARIN 7.5 MG TAB PO ONE (18:00)
[2021-06-07] MEDS: NORTRIPTYLINE 25 MG CAP PO SCH (20:14)
[2021-06-07] MEDS: ATORVASTATIN 80 MG TAB PO SCH (20:15)
[2021-06-07] MEDS: LORATADINE 10 MG TAB PO SCH (20:15)
[2021-06-07] MEDS: DOCUSATE 100 MG CAP PO SCH (20:15)
[2021-06-07 20:24] LABS: Glucose,Whole Blood 174 mg/dL (75-99)
--- NOTE | 2021-06-07 22:34 | PN ---
PROGRESS NOTE DATE OF SERVICE: 06/07/2021 REASON FOR FOLLOWUP: Right lower extremity cellulitis, MRSA. INTERVAL HISTORY: Patient is afebrile. The patient is breathing comfortably. He is more awake and alert. No chest pain, shortness of breath or cough. No abdominal pain. No diarrhea. PHYSICAL EXAMINATION: Blood pressure 140/69 with a pulse of 54. Temperature is 97.7. He is 98% on 3 L nasal cannula. General description is a middle-aged male up in the bed in no distress. Respiratory system: Unlabored breathing, decreased intensity of breath sounds. No wheeze. Heart S1, S2. Regular rate and rhythm. Abdomen: Soft, no tenderness. Right leg swelling and redness has improved. LABS: Hemoglobin is 11.1, white count 8.1. Creatinine is 1.24. DIAGNOSTIC IMPRESSION AND PLAN: Patient with acute right lower extremity cellulitis. Culture positive for MRSA. Patient is covered with vancomycin. Will transition to oral doxycycline on discharge to finish a course of therapy. Continue supportive care. MMODL / IJN: [id number] /
[2021-06-08] MEDS: oxyCODONE-APAP 10-325MG 1 EACH TAB PO PRN
--- NOTE | 2021-06-08 02:44 | P.PN ---
Subjective Progress Note Date: 06/07/21 This Is a 66-year-old male who was recently admitted with acute right leg cellulitis and failed outpatient treatment and is being closely monitored. ID following and patient is maintained on IV vancomycin and will continue. Patient was unresponsive this morning and an A team was called and code stroke activated. Patient had CT of the brain and CTA and neurology consulted. Patient was also having some synchronized bilateral hand twitching noted during the code and CT and was given ativan and a dose of Keppra for possible seizure. 06/07/2021 Patient is seen and evaluated in follow up this morning lethargic although easily arousable. Patient having chest wall pain in the sternal area as he was sternal rubbed yesterday during code stroke. REpeat ct was done with no acute hemorrhage, midline shift or mass noted. Unable to have MRI due to zina filter. Neuro following. Patient is continued on coumading and subtherapeutic at 1.7 and pharmacy dosing. Will repeat am labs. Patient to go to [facility] on discharge. Patient denies shortness of breath or palpitations. HR in the low 50s and metoprolol held. No reports of nausea or vomiting and tolerating diet. Patient maintained on IV vancomycin and ID following. All medications have been reviewed Active Medications Acetaminophen (Acetaminophen Tab 325 Mg Tab) 650 mg PO Q6HR PRN PRN Reason: Mild Pain or Fever > 100.5 Albuterol Sulfate (Albuterol Nebulized 2.5 Mg/3 Ml) 2.5 mg INHALATION RT-QID PRN PRN Reason: Shortness Of Breath Last Admin: 06/07/21 13:16 Dose: 2.5 mg Documented by: Amiodarone HCl (Amiodarone 200 Mg Tab) [address] [facility] Last Admin: 06/07/21 22:54 Dose: Not Given Documented by: Atorvastatin Calcium (Atorvastatin 80 Mg Tab) [address] [facility] Last Admin: 06/07/21 20:15 Dose: 80 mg Documented by: Budesonide/Formoterol Fumarate (Symbicort 160-4.5 Mcg Inhaler) 2 puff INHALATIO N RT-BID [facility] Last Admin: 06/07/21 20:27 Dose: Not Given Documented by: Clopidogrel Bisulfate (Clopidogrel 75 Mg Tab) [address] [facility] Last Admin: 06/07/21 08:49 Dose: 75 mg Documented by: Docusate Sodium (Docusate 100 Mg Cap) [address] [facility] Last Admin: 06/07/21 20:15 Dose: 100 mg Documented by: Duloxetine HCl (Duloxetine Hcl 30 Mg Capsule.Dr) [address] [facility] Last Admin: 06/07/21 08:48 Dose: 30 mg Documented by: Fluticasone Propionate (Fluticasone 50mcg/[place] Nasal 16gm) [address] [facility] Last Admin: 06/07/21 11:36 Dose: Not Given Documented by: Furosemide (Furosemide 40 Mg Tab) [address] [facility] Last Admin: 06/07/21 08:49 Dose: 40 mg Documented by: Glimepiride (Glimepiride 4 Mg Tab) 4 mg PO AC-BRKFST [facility] Last Admin: 06/07/21 06:45 Dose: 4 mg Documented by: Hydromorphone HCl (Hydromorphone 0.5 Mg/0.5 Ml Syringe) 0.5 mg IVP Q3HR PRN PRN Reason: Pain Last Admin: 06/06/21 17:23 Dose: 0.5 mg Documented by: Vancomycin HCl 2,000 mg/ (Sodium Chloride) 500 mls @ 167 mls/hr IVPB Q24H [facility] Last Admin: 06/07/21 11:35 Dose: 167 mls/hr Documented by: Ipratropium [place] (Ipratropium 0.5 Mg/2.5 Ml Nebu) 0.5 mg INHALATION RT-QID [facility] Last Admin: 06/07/21 20:27 Dose: Not Given Documented by: Lisinopril (Lisinopril 20 Mg Tab) [address] [facility] Last Admin: 06/07/21 08:50 Dose: 20 mg Documented by: Loratadine (Loratadine 10 Mg Tab) 10 mg PO [facility] Last Admin: 06/07/21 20:15 Dose: 10 mg Documented by: Lorazepam (Lorazepam 0.5 Mg Tab) 0.5 mg PO QID PRN PRN Reason: Anxiety Last Admin: 06/03/21 12:25 Dose: 0.5 mg Documented by: Meloxicam (Meloxicam 7.5 Mg Tab) 7.[address] [facility] Last Admin: 06/07/21 08:48 Dose: 7.5 mg Documented by: Metformin HCl (Metformin 500 Mg Tab) [address] [facility] Last Admin: 06/07/21 20:15 Dose: 500 mg Documented by: Metoprolol Succinate (Metoprolol Succinate (Er) 50 Mg Tab.Er.24h) [address] [facility] Last Admin: 06/07/21 09:15 Dose: Not Given Documented by: Miscellaneous Information (Warfarin Per Pharmacy) 1 each MISCELLANE DIRECTED PRN; Protocol PRN Reason: Per Protocol Multivitamins (Multivitamins, Thera 1 Each Tab) [address] [facility] Last Admin: 06/07/21 08:49 Dose: 1 each Documented by: Naloxone HCl (Naloxone 0.4 Mg/Ml 1 Ml Vial) 0.2 mg IV Q2M PRN PRN Reason: Opioid Reversal Nortriptyline HCl (Nortriptyline 25 Mg Cap) [address] [facility] Last Admin: 06/07/21 20:14 Dose: 50 mg Documented by: Oxycodone/Acetaminophen (Oxycodone-Apap 10-325mg 1 Each Tab) 1 each PO Q6H PRN PRN Reason: Pain Last Admin: 06/08/21 00:00 Dose: 1 each Documented by: Pantoprazole Sodium (Pantoprazole 40 Mg Tablet) 40 mg PO AC-BID [facility] Last Admin: 06/07/21 16:46 Dose: 40 mg Documented by: Pioglitazone HCl (Pioglitazone 30 Mg Tab) [address] [facility] Last Admin: 06/07/21 08:49 Dose: 30 mg Documented by: Potassium Chloride (Potassium Chloride Er 10 Meq Tab.Er.Prt) [address] [facility] Last Admin: 06/07/21 08:49 Dose: 10 meq Documented by: Pregabalin (Pregabalin 100 Mg Cap) [address] [facility] Last Admin: 06/07/21 20:14 Dose: 300 mg Documented by: Topiramate (Topiramate 25 Mg Tab) [address] [facility] Last Admin: 06/07/21 20:15 Dose: 25 mg Documented by: Physical exam: Gen: This is a 66-year-old lethargic although easily arousable. Alert and oriented x 3 and responds appropriately to questions and commands. HEENT: Head is atraumatic, normocephalic. Pupils equal, round. Sclerae is anicteric. NECK: Supple. No JVD. No lymphadenopathy. No thyromegaly. LUNGS: diminished breath sounds bilaterally with No wheezes or rhonchi. No intercostal retractions. HEART: S1, S2 muffled. irregular ABDOMEN: Soft. Bowel sounds are present. No masses. No tenderness. EXTREMITIES: No pedal edema. No calf tenderness. redness and scabbing noted of the right lower extremity showing improvement NEUROLOGICAL: lethargic, a&0x3. Assessment: Altered mental status possible Brain stem stroke or TIA Acute right leg cellulitis with failure of outpatient treatment with possible sepsis, present on admission with change in mental status, acute metabolic encephalopathy, present on admission Cultures growing MRSA History of left [id number] amputation History of atrial fibrillation, chronic history of asthma, chronic intermittent history of COPD HIstory of Cerebrovascular accident, TIA Diabetes mellitus type 2 uncontrolled with hyperglycemia History of deep vein thrombosis Gastroesophageal reflux disease hypertension Hyperlipidemia history of degenerative joint disease History of pneumonia History of pulmonary embolism history of vascular disorder history of hyperkalemia history of lupus History of deep vein thrombosis of bilateral legs history of Zina filter history of peripheral neuropathy, bilateral hands wheelchair-bound history of MRSA history of nicotine dependence Obesity with body mass index of 36.5 No code Plan: Recommend to continue with current medications, management, and symptomatic treatment. Patient alert and oriented x 3. Lethargic but easily arousable. Patient was evaluated by neurology and feels the findings are artifactual and repeat CT brain with no changes from yesterday. Patient has zina filter and maintained on coumadin. INR subtherapeutic and will have pharmacy dose and repeat am labs. INR is 1.7. Patient to continue with vancomycin and ID following closely. Will discuss with social work about possible ECF placement and accepting facilities. Due to multiple complex medical issues, prognosis is guarded. POssible discharge in 24-48 hours. Objective - Vital Signs Vital signs: Vital Signs Temp 97.5 F L 06/06/21 21:06 Pulse 51 L 06/07/21 04:00 Resp 18 06/07/21 04:00 BP 110/65 06/07/21 04:00 Pulse Ox 97 06/07/21 04:00 Intake & Output 06/06/21 06/07/21 06/07/21 18:59 06:59 18:59 Intake Total 1218 240 Output Total 1625 600 Balance -407 -360 Intake: Intake, IV Titration 1100 Amount Sodium Chloride 0.9% 1, 600 000 ml @ 75 mls/hr IV . [id number] [facility] Rx#:[id number] Vancomycin 2,000 mg In 500 Sodium Chloride 0.9% 500 ml 500 ml @ 167 mls/hr IVPB Q16H [facility] Rx#: [id number] Oral 118 240 Output: Urine 1625 600 Other: Voiding Method Urinal Urinal - Labs CBC & Chem 7: 06/07/21 06:46 06/07/21 06:46 Labs: Abnormal Lab Results - Last 24 Hours (Table) 06/06/21 06/06/21 06/06/21 Range/Units 08:59 08:59 08:59 RBC 4.23 L (4.30-5.90) m/uL Hgb 11.6 L (13.0-17.5) gm/dL Hct 36.5 L (39.0-53.0) % RDW 17.5 H (11.5-15.5) % PT 15.6 H (9.0-12.0) sec INR 1.6 H (<1.2) Chloride 108 H (98-107) mmol/L Creatinine 1.27 H (0.66-1.25) mg/dL Glucose (74-99) mg/dL POC Glucose (mg/dL) (75-99) mg/dL Calcium 8.1 L (8.4-10.2) mg/dL Albumin 3.3 L (3.5-5.0) g/dL Ur Oxycodone Screen (NotDetected) U Tricyclic Antidepress (NotDetected) 06/06/21 06/06/21 06/06/21 Range/Units 17:05 18:10 20:19 RBC (4.30-5.90) m/uL Hgb (13.0-17.5) gm/dL Hct (39.0-53.0) % RDW (11.5-15.5) % PT (9.0-12.0) sec INR (<1.2) Chloride (98-107) mmol/L Creatinine (0.66-1.25) mg/dL Glucose (74-99) mg/dL POC Glucose (mg/dL) 165 H 170 H (75-99) mg/dL Calcium (8.4-10.2) mg/dL Albumin (3.5-5.0) g/dL Ur Oxycodone Screen Detected H (NotDetected) U Tricyclic Antidepress Detected H (NotDetected) 06/07/21 06/07/21 06/07/21 Range/Units 05:55 06:46 06:46 RBC 3.82 L (4.30-5.90) m/uL Hgb 11.1 L (13.0-17.5) gm/dL Hct 34.0 L (39.0-53.0) % RDW 17.5 H (11.5-15.5) % PT 16.7 H (9.0-12.0) sec INR 1.7 H (<1.2) Chloride (98-107) mmol/L Creatinine (0.66-1.25) mg/dL Glucose (74-99) mg/dL POC Glucose (mg/dL) 136 H (75-99) mg/dL Calcium (8.4-10.2) mg/dL Albumin (3.5-5.0) g/dL Ur Oxycodone Screen (NotDetected) U Tricyclic Antidepress (NotDetected) 06/07/21 Range/Units 06:46 RBC (4.30-5.90) m/uL Hgb (13.0-17.5) gm/dL Hct (39.0-53.0) % RDW (11.5-15.5) % PT (9.0-12.0) sec INR (<1.2) Chloride 109 H (98-107) mmol/L Creatinine (0.66-1.25) mg/dL Glucose 109 H (74-99) mg/dL POC Glucose (mg/dL) (75-99) mg/dL Calcium 8.0 L (8.4-10.2) mg/dL Albumin (3.5-5.0) g/dL Ur Oxycodone Screen (NotDetected) U Tricyclic Antidepress (NotDetected) Microbiology - Last 24 Hours (Table) 06/04/21 02:15 Gram Stain - Final Leg - Right Wound Culture - Final Methicillin resist S. aureus 06/02/21 09:57 Blood Culture - Preliminary Blood No Growth after 96 hours
[2021-06-08 05:59] LABS: Glucose,Whole Blood 116 mg/dL (75-99)
[2021-06-08] MEDS: GLIMEPIRIDE 4 MG TAB PO SCH (06:15)
[2021-06-08] MEDS: PANTOPRAZOLE 40 MG TABLET PO SCH (06:15)
[2021-06-08 08:20] VITALS: BMI 33.1
--- NOTE | 2021-06-08 08:34 | EEG ---
ELECTROENCEPHALOGRAM REPORT DATE OF SERVICE: 06/07/2021 PREAMBLE: This is a 66-year-old male with a seizure. EEG FINDINGS: This is a 21-channel digital EEG recorded with video component, utilizing 10/20 international system with referential and bipolar montages. Background consists of moderately well-developed and regulated, predominantly moderate amplitude 6-7 hertz theta which is posterior-dominant, seen in bihemispheric region. Background does not seem to be clearly reactive to eye opening or closing. Some intermixed low-voltage fast frequency beta activity was seen. Photic driving response was not seen. Different stages of sleep were not seen. No focal or generalized epileptiform activity was seen. IMPRESSION: This is an abnormal EEG due to background slowing of mild degree. This is suggestive of generalized cerebral dysfunction as can be seen with encephalopathy related to toxic metabolic causes, degenerative or medication causes. No obvious epileptiform activity was seen. MMODL / IJN: [id number] /
[2021-06-08 08:57] LABS: INR 2.4 (<1.2); Prothrombin Time 23.1 sec (9.0-12.0)
[2021-06-08 08:59] LABS: Calcium 7.9 mg/dL (8.4-10.2); Potassium 4.6 mmol/L (3.5-5.1)
[2021-06-08] MEDS: TOPIRAMATE 25 MG TAB PO SCH (09:15)
[2021-06-08] MEDS: METOPROLOL SUCCINATE (ER) 50 MG TAB.ER.24H PO SCH (09:15)
[2021-06-08] MEDS: FLUTICASONE 50MCG/SPRAY NASAL 16GM EA NOSTRIL SCH (09:15)
[2021-06-08] MEDS: POTASSIUM CHLORIDE ER 10 MEQ TAB.ER.PRT PO SCH (09:16)
[2021-06-08] MEDS: PREGABALIN 100 MG CAP PO SCH (09:16)
[2021-06-08] MEDS: AMIODARONE 200 MG TAB PO SCH (09:16)
[2021-06-08] MEDS: MELOXICAM 7.5 MG TAB PO SCH (09:16)
[2021-06-08] MEDS: MULTIVITAMINS, THERA 1 EACH TAB PO SCH (09:16)
[2021-06-08] MEDS: metFORMIN 500 MG TAB PO SCH (09:16)
[2021-06-08] MEDS: CLOPIDOGREL 75 MG TAB PO SCH (09:16)
[2021-06-08] MEDS: DULoxetine HCL 30 MG CAPSULE.DR PO SCH (09:16)
[2021-06-08] MEDS: FUROSEMIDE 40 MG TAB PO SCH (09:16)
[2021-06-08] MEDS: PIOGLITAZONE 30 MG TAB PO SCH (09:17)
[2021-06-08] MEDS: lisinopriL 20 MG TAB PO SCH (09:17)
[2021-06-08] MEDS: IPRATROPIUM 0.5 MG/2.5 ML NEBU INHALATION SCH ×2 (09:23→12:59)
[2021-06-08] MEDS: SYMBICORT 160-4.5 MCG INHALER INHALATION SCH (09:23)
[2021-06-08 11:24] VITALS: BP 111/60; TEMP 97.7
[2021-06-08 11:46] LABS: Glucose,Whole Blood 96 mg/dL (75-99)
[2021-06-08] MEDS: VANCOMYCIN 2,000 MG in SODIUM CHLORIDE 0.9% 500 ML 500 ML IVPB SCH (13:03)
--- NOTE | 2021-06-08 14:47 | P.DS ---
Providers Date of admission: 06/02/21 11:31 Expected date of discharge: 06/08/21 Attending physician: Memo Brewer MD Consults: 06/03/21 16:10 Consult Physician Routine Consulting Provider: Sherman Ordoñez Consult Reason/Comments: sepsis Do you want consulting provider notified?: Yes 06/06/21 10:38 Consult Physician Stat Consulting Provider: Tanvir Perez Consult Reason/Comments: CVA Do you want consulting provider notified?: Yes Primary care physician: Kristin Chang Hospital Course: Final diagnosis Altered mental status possible Brain stem stroke or TIA, resolved Acute right leg cellulitis with failure of outpatient treatment with possible sepsis, present on admission with change in mental status, acute metabolic encephalopathy, present on admission Cultures growing MRSA History of left [id number] amputation History of atrial fibrillation, chronic history of asthma, chronic intermittent history of COPD HIstory of Cerebrovascular accident, TIA Diabetes mellitus type 2 uncontrolled with hyperglycemia History of deep vein thrombosis Gastroesophageal reflux disease hypertension Hyperlipidemia history of degenerative joint disease History of pneumonia History of pulmonary embolism history of vascular disorder history of hyperkalemia history of lupus History of deep vein thrombosis of bilateral legs history of [place] filter history of peripheral neuropathy, bilateral hands wheelchair-bound history of MRSA history of nicotine dependence Obesity with body mass index of 36.5 No code Discharge disposition Patient is being discharged in a stable condition with guarded prognosis to [facility] for continued PT/OT therapy. Patient will follow-up with Dr. Chang in the outpatient setting upon discharge. Patient is to continue with oral doxycycline twice daily for 7 days and then may discontinue. Recommend outpatient follow-up with infectious disease and continue local wound care of the right lower extremity. Total time taken is greater than 35 minutes Hospital course This Is a 66-year-old male who was recently admitted with acute right leg cellulitis and failed outpatient treatment and is being closely monitored. ID following and patient is maintained on IV vancomycin and will continue. Patient was unresponsive this morning and an A team was called and code stroke activated. Patient had CT of the brain and CTA and neurology consulted. Patient was also having some synchronized bilateral hand twitching noted during the code and CT and was given ativan and a dose of Keppra for possible seizure. 06/07/2021 Patient is seen and evaluated in follow up this morning lethargic although easily arousable. Patient having chest wall pain in the sternal area as he was sternal rubbed yesterday during code stroke. REpeat ct was done with no acute hemorrhage, midline shift or mass noted. Unable to have MRI due to isabell filter. Neuro following. Patient is continued on coumading and subtherapeutic at 1.7 and pharmacy dosing. Will repeat am labs. Patient to go to [facility] on discharge. Patient denies shortness of breath or palpitations. HR in the low 50s and metoprolol held. No reports of nausea or vomiting and tolerating diet. Patient maintained on IV vancomycin and ID following. 06/08/2021 Patient is seen in follow-up this morning with no acute overnight issues. Patient has been accepted at [facility] and will be going there for physical therapy. Patient was seen and evaluated by infectious disease for right leg cellulitis which is MRSA and will continue with oral doxycycline 100 mg twice daily for the next 1 week and recommend outpatient follow-up with Dr. Ordoñez in the clinic. Local wound care. Recommend to continue with Accu-Cheks before meals and at bedtime and may use sliding scale as needed. Continue with consistent carbohydrate diet. Patient has been evaluated by neurology recommending outpatient follow-up. Currently no reports of chest pain, shortness of breath, or palpitations. Patient is afebrile. No reports of nausea or vomiting and patient is tolerating diet. Patient will be going to [facility] today. Guarded prognosis. Physical exam: Gen: This is a 66-year-old lethargic although easily arousable. Alert and oriented x 3 and responds appropriately to questions and commands. HEENT: Head is atraumatic, normocephalic. Pupils equal, round. Sclerae is anic teric. NECK: Supple. No JVD. No lymphadenopathy. No thyromegaly. LUNGS: diminished breath sounds bilaterally with No wheezes or rhonchi. No intercostal retractions. HEART: S1, S2 muffled. irregular ABDOMEN: Soft. Bowel sounds are present. No masses. No tenderness. EXTREMITIES: No pedal edema. No calf tenderness. redness and scabbing noted of the right lower extremity showing improvement NEUROLOGICAL: lethargic, a&0x3. Please refer to medication reconciliation sheet for a list of medications. Patient Condition at Discharge: Stable Plan - Discharge Summary New Discharge Prescriptions: New Clopidogrel [Plavix] 75 mg PO DAILY tab Acetaminophen Tab [Tylenol] 650 mg PO Q6HR PRN tab PRN Reason: Mild Pain Or Fever > 100.5 Doxycycline [Vibramycin] 100 mg PO BID 7 Days #14 capsule LORazepam [Ativan] 0.5 mg PO QID PRN #6 tab PRN Reason: Anxiety Continue Atorvastatin [Lipitor] 80 mg PO HS Topiramate [Topamax] 25 mg PO BID Omeprazole [PriLOSEC] 20 mg PO BID Nortriptyline [Pamelor] 50 mg PO HS Loratadine 10 mg PO HS Metoprolol Succinate (ER) [Toprol XL] 50 mg PO DAILY Docusate [Colace] 100 mg PO HS Tiotropium [place] [Spiriva Respimat] 2 spray INHALATION RT-DAILY Furosemide [Lasix] 40 mg PO DAILY #30 tablet Amiodarone [Cordarone] 200 mg PO TID Celecoxib [CeleBREX] 200 mg PO DAILY DULoxetine HCL [Cymbalta] 30 mg PO DAILY metFORMIN HCL 500 mg PO BID Budesonide/Formoterol Fumarate [Symbicort 160-4.5 Mcg Inhaler] 2 puff INHALATION RT-BID Albuterol Nebulized [Ventolin Nebulized] 2.5 mg INHALATION RT-QID PRN PRN Reason: Shortness Of Breath Multivitamins, Thera [Multivitamin (formulary)] 1 tab PO DAILY Fluticasone Nasal [place] [Flonase Nasal [place]] 2 spray EA NOSTRIL DAILY Glimepiride [Amaryl] 4 mg PO AC-BRKFST lisinopriL 20 mg PO DAILY Pioglitazone [Actos] 30 mg PO DAILY Potassium Chloride [Klor-Con 10 ER] 10 meq PO DAILY Warfarin [Coumadin] 3 - 4.5 mg PO DIRECTED Pregabalin [Lyrica] 300 mg PO BID #6 cap oxyCODONE-APAP 10-325MG [Percocet 10-325 mg] 1 tab PO Q6H PRN #6 tab PRN Reason: Pain Discontinued Aspirin 81 mg PO DAILY 30 Days #30 chew Discharge Medication List Atorvastatin [Lipitor] 80 mg PO HS 01/09/14 [History] Topiramate [Topamax] 25 mg PO BID 01/09/14 [History] Nortriptyline [Pamelor] 50 mg PO HS 08/15/19 [History] Omeprazole [PriLOSEC] 20 mg PO BID 08/15/19 [History] Loratadine 10 mg PO HS 10/30/19 [History] Metoprolol Succinate (ER) [Toprol XL] 50 mg PO DAILY 02/29/20 [History] Docusate [Colace] 100 mg PO HS 05/19/20 [History] Albuterol Nebulized [Ventolin Nebulized] 2.5 mg INHALATION RT-QID PRN 10/16/20 [History] Budesonide/Formoterol Fumarate [Symbicort 160-4.5 Mcg Inhaler] 2 puff INHALATION RT-BID 10/16/20 [History] Multivitamins, Thera [Multivitamin (formulary)] 1 tab PO DAILY 10/16/20 [Histo ry] Tiotropium [place] [Spiriva Respimat] 2 spray INHALATION RT-DAILY 10/16/20 [History] Furosemide [Lasix] 40 mg PO DAILY #30 tablet 12/29/20 [Rx] Amiodarone [Cordarone] 200 mg PO TID 06/02/21 [History] Celecoxib [CeleBREX] 200 mg PO DAILY 06/02/21 [History] DULoxetine HCL [Cymbalta] 30 mg PO DAILY 06/02/21 [History] Fluticasone Nasal [place] [Flonase Nasal [place]] 2 spray EA NOSTRIL DAILY 06/02/21 [History] Glimepiride [Amaryl] 4 mg PO AC-BRKFST 06/02/21 [History] Pioglitazone [Actos] 30 mg PO DAILY 06/02/21 [History] Potassium Chloride [Klor-Con 10 ER] 10 meq PO DAILY 06/02/21 [History] Warfarin [Coumadin] 3 - 4.5 mg PO DIRECTED 06/02/21 [History] lisinopriL 20 mg PO DAILY 06/02/21 [History] metFORMIN HCL 500 mg PO BID 06/02/21 [History] Acetaminophen Tab [Tylenol] 650 mg PO Q6HR PRN tab 06/08/21 [Rx] Clopidogrel [Plavix] 75 mg PO DAILY tab 06/08/21 [Rx] Doxycycline [Vibramycin] 100 mg PO BID 7 Days #14 capsule 06/08/21 [Rx] LORazepam [Ativan] 0.5 mg PO QID PRN #6 tab 06/08/21 [Rx] Pregabalin [Lyrica] 300 mg PO BID #6 cap 06/08/21 [Rx] oxyCODONE-APAP 10-325MG [Percocet 10-325 mg] 1 tab PO Q6H PRN #6 tab 06/08/21 [Rx] Follow up Appointment(s)/Referral(s): Kristin Chang DO [Primary Care Provider] - 1-2 days Sherman Ordoñez MD [STAFF PHYSICIAN] - 1 Week Ambulatory/Diagnostic Orders: Prothrombin Time INR [LAB.AMB] Time Frame: 1 Day, Location: None Selected Activity/Diet/Wound Care/Special Instructions: Patient is going to [facility] activity as tolerated Continue with consistent carb heart healthy diet continue antibiotics for 7 days and recommend following up with infectious disease outpatient Continue monitoring Accu-Cheks before meals and at bedtime Patient to follow up with neurology outpatient Discharge Disposition: TRANSFER TO SNF/ECF
[2021-06-08 15:06] VITALS: PULSE 62
[2021-06-08 15:08] VITALS: RESP 18
[2021-06-08] MEDS ORDERED: WARFARIN 5 MG TAB PO ONE (18:00)
--- NOTE | 2021-06-11 09:47 | CDI ---
Documentation Clarification Form Date: 06/11/2021 09:40:00 AM From: Darren Cox Admit Date: 06/02/2021 11:31:00 AM Patient Name: Checo Quijano Visit Number: [id number] Discharge Date: 06/08/2021 04:18:00 PM ATTENTION: The Clinical Documentation Specialists (CDI) and [facility] Coding Staff appreciate your assistance in clarifying documentation. Please respond to the clarification below the line at the bottom and electronically sign. The CDI & [facility] Coding staff will review the response and follow-up if needed. Please note: Queries are made part of the Legal Health Record. If you have any questions, please contact the author of this message via ITS. Dr. Memo Brewer, Your discharge summary indicates possible brain stem CVA or TIA. The difference between these diagnoses affects the severity of illness. History/Risk Factors: AMS Clinical Indicators: MRI: slight increase in white matter Treatment: Please clarify which diagnosis is most appropriate: [ ] CVA [ ] TIA [ ] Other (please specify) [ ] Unable to determine Unable to determine MTDD
== END 2021-06-08 16:18 | DRG 871 ==
LOC: EC 09:01 → 5NMEDONC 11:31 → 3SCARD 06-06 11:41
PROVIDERS: ADMIT Internal Medicine; ATTEND Internal Medicine
DX: A41.9 Sepsis, unspecified organism (principal); G93.41 Metabolic encephalopathy; D68.62 Lupus anticoagulant syndrome; I48.20 Chronic atrial fibrillation, unspecified; L03.115 Cellulitis of right lower limb; G45.9 Transient cerebral ischemic attack, unspecified; B95.62 Methicillin resistant Staphylococcus aureus infection as the cause of diseases classified elsewhere; E11.22 Type 2 diabetes mellitus with diabetic chronic kidney disease; E11.649 Type 2 diabetes mellitus with hypoglycemia without coma; E11.65 Type 2 diabetes mellitus with hyperglycemia; E66.9 Obesity, unspecified; Z68.36 Body mass index [BMI] 36.0-36.9, adult; E78.5 Hyperlipidemia, unspecified; F17.200 Nicotine dependence, unspecified, uncomplicated; F41.9 Anxiety disorder, unspecified; E11.42 Type 2 diabetes mellitus with diabetic polyneuropathy; I12.9 Hypertensive chronic kidney disease with stage 1 through stage 4 chronic kidney disease, or unspecified chronic kidney disease; Z20.822 Contact with and (suspected) exposure to COVID-19; I25.10 Atherosclerotic heart disease of native coronary artery without angina pectoris; I66.02 Occlusion and stenosis of left middle cerebral artery; J43.9 Emphysema, unspecified; K21.9 Gastro-esophageal reflux disease without esophagitis; N18.9 Chronic kidney disease, unspecified; R29.700 NIHSS score 0; Z59.00 Homelessness unspecified; Z79.01 Long term (current) use of anticoagulants; Z79.02 Long term (current) use of antithrombotics/antiplatelets; Z79.1 Long term (current) use of non-steroidal anti-inflammatories (NSAID); Z79.51 Long term (current) use of inhaled steroids; Z79.82 Long term (current) use of aspirin; Z79.84 Long term (current) use of oral hypoglycemic drugs; Z79.899 Other long term (current) drug therapy; Z82.49 Family history of ischemic heart disease and other diseases of the circulatory system; Z83.3 Family history of diabetes mellitus; Z86.14 Personal history of Methicillin resistant Staphylococcus aureus infection; Z86.711 Personal history of pulmonary embolism; Z86.718 Personal history of other venous thrombosis and embolism; Z86.73 Personal history of transient ischemic attack (TIA), and cerebral infarction without residual deficits; Z87.01 Personal history of pneumonia (recurrent); Z89.512 Acquired absence of left leg below knee; Z89.611 Acquired absence of right leg above knee; Z89.612 Acquired absence of left leg above knee; Z90.49 Acquired absence of other specified parts of digestive tract; Z91.14 Patient's other noncompliance with medication regimen; Z91.19 Patient's noncompliance with other medical treatment and regimen; Z95.828 Presence of other vascular implants and grafts; Z96.642 Presence of left artificial hip joint; Z99.3 Dependence on wheelchair; R07.89 Other chest pain
CPT/HCPCS: 36415; 36600; 70450; 70496; 70498; 71045; 80048; 80053; 80061; 80202; 80306; 82805; 83605; 84443; 84484; 85025; 85610; 85730; 87040; 87070; 87077; 87186; 87205; 87635; 93308; 94640; 94760; 95816; 99285

== ENCOUNTER 2021-09-05 00:47 | Observation (INO) | payer MEDICARE ==
[2021-09-05] MEDS ORDERED: SODIUM CHLORIDE 0.9% 1,000 ML IV STA (01:10)
[2021-09-05] MEDS ORDERED: cefTRIAXone IN SWFI 1,000 MG/10 ML SYRINGE IVP STA (01:11)
[2021-09-05] MEDS ORDERED: diphenhydrAMINE 50 MG/ML 1 ML VIAL IVP STA ×2 (01:11→05:26)
--- NOTE | 2021-09-05 01:12 | ED ---
Skin/Abscess/FB HPI - General Chief complaint: Skin/Abscess/Foreign Body Stated complaint: poss sepsis Time Seen by Provider: 09/05/21 01:05 Source: EMS, RN notes reviewed, old records reviewed Mode of arrival: EMS Limitations: no limitations - History of Present Illness Initial comments: This is a 66-year-old male to the ER for evaluation patient presents today for evaluation of right lower [place] pain swelling and edema. Patient has no history of cellulitis has a left lower leg amputation. Patient coming in for severe cellulitis of his right leg queasiness sepsis again. Patient's itching all over without fever. He feels weak and a decreased appetite. MD complaint: rash, other (Swelling and cellulitis of right lower extremity) -: days(s) Tetanus Up to Date: yes Location: RLE, R foot Severity: moderate Severity scale (1-10): 6 Quality: aching, sharp, other (Itching) Consistency: constant Improves with: none Worsens with: none Context: none Associated symptoms: malaise Treatments Prior to Arrival: none - Related Data Home Medications Medication Instructions Recorded Confirmed Atorvastatin [Lipitor] 80 mg PO HS 01/09/14 06/02/21 Topiramate [Topamax] 25 mg PO BID 01/09/14 06/02/21 Nortriptyline [Pamelor] 50 mg PO HS 08/15/19 06/02/21 Omeprazole [PriLOSEC] 20 mg PO BID 08/15/19 06/02/21 Loratadine 10 mg PO HS 10/30/19 06/02/21 Metoprolol Succinate (ER) [Toprol 50 mg PO DAILY 02/29/20 06/02/21 XL] Docusate [Colace] 100 mg PO HS 05/19/20 06/02/21 Albuterol Nebulized [Ventolin 2.5 mg INHALATION RT-QID PRN 10/16/20 06/02/21 Nebulized] Budesonide/Formoterol Fumarate 2 puff INHALATION RT-BID 10/16/20 06/02/21 [Symbicort 160-4.5 Mcg Inhaler] Multivitamins, Thera [Multivitamin 1 tab PO DAILY 10/16/20 06/02/21 (formulary)] Tiotropium Arm[place] [Spiriva 2 spray INHALATION RT-DAILY 10/16/20 06/02/21 Respimat] Amiodarone [Cordarone] 200 mg PO TID 06/02/21 06/02/21 Celecoxib [CeleBREX] 200 mg PO DAILY 06/02/21 06/02/21 DULoxetine HCL [Cymbalta] 30 mg PO DAILY 06/02/21 06/02/21 Fluticasone Nasal [place] [Flonase 2 spray EA NOSTRIL DAILY 06/02/21 06/02/21 Nasal [place]] Glimepiride [Amaryl] 4 mg PO [id number]-[id number] 06/02/21 06/02/21 Pioglitazone [Actos] 30 mg PO DAILY 06/02/21 06/02/21 Potassium Chloride [Klor-Con 10 ER] 10 meq PO DAILY 06/02/21 06/02/21 Warfarin [Coumadin] 3 - 4.5 mg PO DIRECTED 06/02/21 06/02/21 lisinopriL [Prinivil] 20 mg PO DAILY 06/02/21 06/02/21 metFORMIN HCL 500 mg PO BID 06/02/21 06/02/21 Previous Rx's Medication Instructions Recorded Furosemide [Lasix] 40 mg PO DAILY #30 tablet 12/29/20 Acetaminophen Tab [Tylenol] 650 mg PO Q6HR PRN tab 06/08/21 Clopidogrel [Plavix] 75 mg PO DAILY tab 06/08/21 Doxycycline [Vibramycin] 100 mg PO BID 7 Days #14 capsule 06/08/21 LORazepam [Ativan] 0.5 mg PO QID PRN #6 tab 06/08/21 Pregabalin [Lyrica] 300 mg PO BID #6 cap 06/08/21 oxyCODONE-APAP 10-325MG [Percocet 1 tab PO Q6H PRN #6 tab 06/08/21 10-325 mg] Allergies Allergy/AdvReac Type Severity Reaction Status Date / Time baclofen Allergy Unknown Verified 09/05/21 00:52 Review of Systems ROS Statement: Those systems with pertinent positive or pertinent negative responses have been documented in the HPI. ROS Other: All systems not noted in ROS Statement are negative. Past Medical History Past Medical History: Atrial Fibrillation, Asthma, COPD, CVA/TIA, Diabetes Mellitus, Deep Vein Thrombosis (DVT), GERD/Reflux, Hyperlipidemia, Hypertension, Neurologic Disorder, Osteoarthritis (OA), Pneumonia, Pulmonary Embolus (PE), Skin Disorder, Vascular Disorder Additional Past Medical History / Comment(s): Pt admitted to [facility] on 11/20/20 with hyperkalemia, hyperglycemia, uncontrolled diabetes. Other hx: Lupus anticoagulant, DVTs bilateral legs, PEs bilateral lungs, pt has zina filter, L AKA/wheelchair bound, NIDDM type II, neuropathy bilateral hands, wound care patient for buttock wound, now healed, TIAs, pneumothorax, past migraines, chronic low back pain, R leg edema at times, varicosities. History of Any Multi-Drug Resistant Organisms: MRSA Date of last positivie culture/infection: 06/04/21 MDRO Source:: Right Leg MRSA Past Surgical History: Adenoidectomy, Appendectomy, Tonsillectomy Additional Past Surgical History / Comment(s): 1980s Zina filter, stents in vessels "in pelvic area", total L hip arthroplasty, vein strippings, colonoscopy. left leg amputation Past Anesthesia/Blood Transfusion Reactions: No Reported Reaction Additional Past Anesthesia/Blood Transfusion Reaction / Comment(s): Pt has received blood in past without reaction. Past Psychological History: No Psychological Hx Reported Smoking Status: Current every day smoker Past Alcohol Use History: None Reported Past Drug Use History: None Reported - Past Family History Mother Family Medical History: Coronary Artery Disease (CAD), Myocardial Infarction ([place]), Vascular Disorder Additional Family Medical History / Comment(s): heart disease, peripheral vascular disease. Father Family Medical History: Diabetes Mellitus, Renal Disease General Exam Limitations: no limitations General appearance: alert, in no apparent distress Head exam: Present: atraumatic, normocephalic, normal inspection Eye exam: Present: normal appearance, PERRL, EOMI. Absent: scleral icterus, co njunctival injection, periorbital swelling ENT exam: Present: normal exam, mucous membranes moist Neck exam: Present: normal inspection. Absent: tenderness, meningismus, lymphadenopathy Respiratory exam: Present: normal lung sounds bilaterally. Absent: respiratory distress, wheezes, rales, rhonchi, stridor Cardiovascular Exam: Present: regular rate, normal rhythm, normal heart sounds. Absent: systolic murmur, diastolic murmur, rubs, gallop, clicks GI/Abdominal exam: Present: soft, normal bowel sounds. Absent: distended, tenderness, guarding, rebound, rigid Extremities exam: Present: tenderness, normal capillary refill, other (Significant right lower extremity swelling and edema, cellulitis). Absent: pedal edema, joint swelling, calf tenderness Back exam: Present: normal inspection Neurological exam: Present: alert, oriented X3, CN II-XII intact Psychiatric exam: Present: normal affect, normal mood Skin exam: Present: warm, dry, intact, normal color. Absent: rash Course Vital Signs 09/05/21 09/05/21 00:52 04:01 Temperature 97.6 F 97.9 F Pulse Rate 85 88 Respiratory 16 22 Rate Blood Pressure 125/82 134/68 O2 Sat by Pulse 98 97 Oximetry - Reevaluation(s) Reevaluation #1: 09/05/21 05:25 Medical record is reviewed Reevaluation #2: 09/05/21 05:25 Patient has no real change in symptoms so pain and swelling with itching of his right lower extremity Reevaluation #3: 09/05/21 05:25 Patient informed results and questions answered - Consultations Consultation #1: spoke with [facility] who agree to admit the patient Medical Decision Making - Medical Decision Making 66 male to the emergency department with significant laboratory cellulitis and erythema redness and drainage. Patient also has some weakness and not feeling well. Patient concern is in sepsis secondary to itching which she's had before. Patient be admitted for IV antibiotics progression - Lab Data Result diagrams: 09/05/21 01:13 09/05/21 01:13 Lab Results 09/05/21 09/05/21 09/05/21 Range/Units 01:13 01:13 01:13 WBC 8.0 (3.8-10.6) k/uL RBC 4.49 (4.30-5.90) m/uL Hgb 12.0 L (13.0-17.5) gm/dL Hct 38.1 L (39.0-53.0) % MCV 84.9 (80.0-100.0) fL MCH 26.7 (25.0-35.0) pg MCHC 31.4 (31.0-37.0) g/dL RDW 18.8 H (11.5-15.5) % Plt Count 304 (150-450) k/uL MPV 8.5 Neutrophils % 71 % Lymphocytes % 18 % Monocytes % 7 % Eosinophils % 1 % Basophils % 0 % Neutrophils # 5.7 (1.3-7.7) k/uL Lymphocytes # 1.4 (1.0-4.8) k/uL Monocytes # 0.5 (0-1.0) k/uL Eosinophils # 0.1 (0-0.7) k/uL Basophils # 0.0 (0-0.2) k/uL Hypochromasia Moderate Anisocytosis Slight PT 17.4 H (9.0-12.0) sec INR 1.7 H (<1.2) APTT 31.6 H (22.0-30.0) sec Sodium 137 (137-145) mmol/L Potassium 4.4 (3.5-5.1) mmol/L Chloride 106 (98-107) mmol/L Carbon Dioxide 20 L (22-30) mmol/L Anion Gap 11 mmol/L BUN 14 (9-20) mg/dL Creatinine 1.12 (0.66-1.25) mg/dL Est GFR (CKD-EPI)AfAm 80 (>60 ml/min/1.73 sqM) Est GFR (CKD-EPI)NonAf 69 (>60 ml/min/1.73 sqM) Glucose 173 H (74-99) mg/dL Plasma Lactic Acid Dennis (0.7-2.0) mmol/L Calcium 9.1 (8.4-10.2) mg/dL Phosphorus 3.8 (2.5-4.5) mg/dL Magnesium 1.7 (1.6-2.3) mg/dL Total Bilirubin 0.7 (0.2-1.3) mg/dL AST 19 (17-59) U/L ALT 18 (4-49) U/L Alkaline Phosphatase 125 (38-126) U/L Troponin I (0.000-0.034) ng/mL NT-Pro-B Natriuret Pep pg/mL Total Protein 7.5 (6.3-8.2) g/dL Albumin 3.9 (3.5-5.0) g/dL 09/05/21 09/05/21 09/05/21 Range/Units 01:13 01:13 01:13 WBC (3.8-10.6) k/uL RBC (4.30-5.90) m/uL Hgb (13.0-17.5) gm/dL Hct (39.0-53.0) % MCV (80.0-100.0) fL MCH (25.0-35.0) pg MCHC (31.0-37.0) g/dL RDW (11.5-15.5) % Plt Count (150-450) k/uL MPV Neutrophils % % Lymphocytes % % Monocytes % % Eosinophils % % Basophils % % Neutrophils # (1.3-7.7) k/uL Lymphocytes # (1.0-4.8) k/uL Monocytes # (0-1.0) k/uL Eosinophils # (0-0.7) k/uL Basophils # (0-0.2) k/uL Hypochromasia Anisocytosis PT (9.0-12.0) sec INR (<1.2) APTT (22.0-30.0) sec Sodium (137-145) mmol/L Potassium (3.5-5.1) mmol/L Chloride (98-107) mmol/L Carbon Dioxide (22-30) mmol/L Anion Gap mmol/L BUN (9-20) mg/dL Creatinine (0.66-1.25) mg/dL Est GFR (CKD-EPI)AfAm (>60 ml/min/1.73 sqM) Est GFR (CKD-EPI)NonAf (>60 ml/min/1.73 sqM) Glucose (74-99) mg/dL Plasma Lactic Acid Dennis 1.3 (0.7-2.0) mmol/L Calcium (8.4-10.2) mg/dL Phosphorus (2.5-4.5) mg/dL Magnesium (1.6-2.3) mg/dL Total Bilirubin (0.2-1.3) mg/dL AST (17-59) U/L ALT (4-49) U/L Alkaline Phosphatase (38-126) U/L Troponin I 0.015 (0.000-0.034) ng/mL NT-Pro-B Natriuret Pep 2080 pg/mL Total Protein (6.3-8.2) g/dL Albumin (3.5-5.0) g/dL - EKG Data -: EKG Interpreted by Me (EKG is sinus 74 MS 158 QRS 128 QTc 447) - Radiology Data Radiology results: report reviewed (Chest x-ray and x-ray tibia-fibula is negative for acute disease), image reviewed Disposition Clinical Impression: Cellulitis, Cellulitis of right leg, Dehydration Disposition: ADMITTED IP TO THIS HOSP Condition: Good Is patient prescribed a controlled substance at d/c from ED?: No Referrals: Kristin Emery DO [Primary Care Provider] - 1-2 days
[2021-09-05 01:54] LABS: Anisocytosis Slight; Basophils % (A) 0 %; Eosinophils # (A) 0.1 k/uL (0-0.7); Eosinophils % (A) 1 %; HCT 38.1 % (39.0-53.0); Hypochromasia Moderate; Lymphocytes # (A) 1.4 k/uL (1.0-4.8); Lymphocytes % (A) 18 %; MCH 26.7 pg (25.0-35.0); MCHC 31.4 g/dL (31.0-37.0); MCV 84.9 fL (80.0-100.0); Mean Platelet Volume 8.5; Monocytes # (A) 0.5 k/uL (0-1.0); Monocytes % (A) 7 %; Neutrophils # (A) 5.7 k/uL (1.3-7.7); Neutrophils % (A) 71 %; Platelet Count 304 k/uL (150-450); RBC 4.49 m/uL (4.30-5.90); RDW 18.8 % (11.5-15.5)
--- NOTE | 2021-09-05 01:57 | XR ---
EXAMINATION TYPE: XR tibia fibula RT DATE OF EXAM: 09/05/2021 COMPARISON: 06/02/2021 HISTORY: Weakness TECHNIQUE: 4 views FINDINGS: There is some soft tissue swelling around the right lower leg. There is no evidence of frac ture nor dislocation. Knee joint and ankle joint appear intact. There is plantar calcaneal spurring. IMPRESSION: Soft tissue swelling. No fracture seen. No change compared to old exam.
--- NOTE | 2021-09-05 01:58 | XR ---
EXAMINATION TYPE: XR chest 1V portable DATE OF EXAM: 09/05/2021 COMPARISON: 06/06/2021 HISTORY: Weakness TECHNIQUE: FINDINGS: There is coarse interstitial infiltrate in the lower lung swartz and more in the left lower lobe. There are no hilar masses. There is no heart failure. There are chest leads. Costophrenic angl es are clear. IMPRESSION: Interstitial pneumonia not significantly different than last exam. There is probably some pulmonary fibrosis. No obvious heart failure.
[2021-09-05 02:02] LABS: INR 1.7 (<1.2); Partial Thromboplastin Time 31.6 sec (22.0-30.0); Prothrombin Time 17.4 sec (9.0-12.0)
[2021-09-05 02:04] LABS: Albumin 3.9 g/dL (3.5-5.0); Calcium 9.1 mg/dL (8.4-10.2); Magnesium 1.7 mg/dL (1.6-2.3); Phosphorus 3.8 mg/dL (2.5-4.5); Potassium 4.4 mmol/L (3.5-5.1); Total Bilirubin 0.7 mg/dL (0.2-1.3); Total Protein 7.5 g/dL (6.3-8.2)
[2021-09-05] MEDS ORDERED: NALOXONE 0.4 MG/ML 1 ML VIAL IV PRN (05:22)
[2021-09-05] MEDS ORDERED: ONDANSETRON 4 MG/2 ML VIAL IVP PRN (05:22)
[2021-09-05] MEDS ORDERED: MORPHINE SULFATE 4 MG/ML SYRINGE IV PRN (05:22)
[2021-09-05] MEDS ORDERED: SODIUM CHLORIDE 0.9% 1,000 ML IV SCH (05:30)
[2021-09-05] MEDS: LORazepam 2 MG/ML INJ IV PRN (06:34)
[2021-09-05 07:55] LABS: Glucose,Whole Blood 142 mg/dL (75-99)
[2021-09-05 11:02] LABS: Appearance,Urine Clear (Clear); Bilirubin,Urine Negative (Negative); Blood,Urine Negative (Negative); Color,Urine Yellow; Glucose,Urine (UA) Negative (Negative); Ketones,Urine 1+ (Negative); Leukocyte Esterase,Urine Negative (Negative); Mucus,Urine Rare /hpf; Nitrite,Urine Negative (Negative); Protein,Urine 1+ (Negative); RBC,Urine 1 /hpf (0-5); Squamous Epithelial Cell,Urine <1 /hpf (0-4); WBC,Urine 1 /hpf (0-5)
[2021-09-05 11:58] LABS: Glucose,Whole Blood 182 mg/dL (75-99)
[2021-09-05] MEDS ORDERED: VANCOMYCIN IV PER PHARMACY 1 EACH MISC MISCELLANE PRN (11:58)
[2021-09-05] MEDS: VANCOMYCIN 1,500 MG in SODIUM CHLORIDE 0.9% 250 ML IVPB SCH ×2 (12:24→23:43)
[2021-09-05] MEDS: NICOTINE 14MG/24HR PATCH TRANSDERM SCH (12:24)
[2021-09-05] MEDS: MAGNESIUM SULFATE-D5W PMX 1 GM in DEXTROSE/WATER 1 100ML.BAG IVPB SCH ×2 (12:43→14:45)
--- NOTE | 2021-09-05 14:09 | P.HPIM ---
History of Present Illness 66-year-old male came in with complaints of swelling and redness of the right lower extremity found to have cellulitis has history of MRSA in the past doesn't have any fever doesn't have any leukocytosis. Patient has left leg amputation. Patient continues to smoke patient has valvular atrial fibrillation for which patient is on Coumadin, patient also has history of DVT in the past. Patient has multiple other medical problems. REVIEW OF SYSTEMS: CONSTITUTIONAL: No fever, no malaise, no fatigue. HEENT: No recent visual problems or hearing problems. Denied any sore throat. CARDIOVASCULAR: No chest pain, orthopnea, PND, no palpitations, no syncope. PULMONARY: No shortness of breath, no cough, no hemoptysis. GASTROINTESTINAL: No diarrhea, no nausea, no vomiting, no abdominal pain. NEUROLOGICAL: No headaches, no weakness, no numbness. HEMATOLOGICAL: Denies any bleeding or petechiae. GENITOURINARY: Denies any burning micturition, frequency, or urgency. MUSCULOSKELETAL/RHEUMATOLOGICAL: As mentioned in HPI ENDOCRINE: Denies any polyuria or polydipsia. The rest of the 14-point review of systems is negative. PHYSICAL EXAMINATION: GENERAL: The patient is alert and oriented x3, not in any acute distress. Well developed, well nourished. HEENT: Pupils are round and equally reacting to light. EOMI. No scleral icterus. No conjunctival pallor. Normocephalic, atraumatic. No pharyngeal erythema. No thyromegaly. CARDIOVASCULAR: S1 and S2 present. No murmurs, rubs, or gallops. PULMONARY: Chest is clear to auscultation, no wheezing or crackles. ABDOMEN: Soft, nontender, nondistended, normoactive bowel sounds. No palpable organomegaly. MUSCULOSKELETAL: No joint swelling or deformity. EXTREMITIES: No cyanosis, clubbing, or pedal edema. NEUROLOGICAL: Gross neurological examination did not reveal any focal deficits. SKIN: Patient has significant redness circumferentially in the right lower extremity left lower extremity is below-knee amputation. Right lower extremity has some skin breakdown, no obvious purulent discharge Assessment and plan -Cellulitis of the right lower extremity: Patient was started on IV vancomycin subtracts and will be discontinued -Proximal atrial fibrillation valvular atrial fibrillation for which patient is incontinence of peptic an INR patient will resume and same dose of Coumadin and recheck the INR tomorrow depending on the recheck the meeting decreased the Coumadin dose. Patient is also on amiodarone which interacts with Coumadin. 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 Counseling regarding Zosyn came cessation was provided DVT prophylaxis: On Coumadin as mentioned above Past Medical History Past Medical History: Atrial Fibrillation, Asthma, COPD, CVA/TIA, Diabetes Mellitus, Deep Vein Thrombosis (DVT), GERD/Reflux, Hyperlipidemia, Hypertension, Neurologic Disorder, Osteoarthritis (OA), Pneumonia, Pulmonary Embolus (PE), Skin Disorder, Vascular Disorder Additional Past Medical History / Comment(s): Pt admitted to [facility] on 11/20/20 with hyperkalemia, hyperglycemia, uncontrolled diabetes. Other hx: Lupus anticoagulant, DVTs bilateral legs, PEs bilateral lungs, pt has zina filter, L AKA/wheelchair bound, NIDDM type II, neuropathy bilateral hands, wound care patient for buttock wound, now healed, TIAs, pneumothorax, past migraines, chronic low back pain, R leg edema at times, varicosities. History of Any Multi-Drug Resistant Organisms: MRSA Date of last positivie culture/infection: 06/04/21 MDRO Source:: Right Leg MRSA Past Surgical History: Adenoidectomy, Appendectomy, Tonsillectomy Additional Past Surgical History / Comment(s): [place] filter, stents in vessels "in pelvic area", total L hip arthroplasty, vein strippings, colonoscopy. left leg amputation Past Anesthesia/Blood Transfusion Reactions: No Reported Reaction Additional Past Anesthesia/Blood Transfusion Reaction / Comment(s): Pt has received blood in past without reaction. Past Psychological History: No Psychological Hx Reported Additional Psychological History / Comment(s): Pt currently living with his albina. He has a home care nurse thru [facility] pt states for wound care. He has a glucometer. He has a nebulizer but it is in his own home. Pt states he no longer drives and that getting to appts will be difficult for him. Smoking Status: Current every day smoker Past Alcohol Use History: None Reported Additional Past Alcohol Use History / Comment(s): Pt startes smoking in 1969 and is a ppd smoker. Past Drug Use History: None Reported - Past Family History Mother Family Medical History: Coronary Artery Disease (CAD), Myocardial Infarction ([place]), Vascular Disorder Additional Family Medical History / Comment(s): heart disease, peripheral vas cular disease. Father Family Medical History: Diabetes Mellitus, Renal Disease Medications and Allergies Home Medications Medication Instructions Recorded Confirmed Type Atorvastatin [Lipitor] 80 mg PO HS 01/09/14 09/05/21 History Topiramate [Topamax] 25 mg PO BID 01/09/14 09/05/21 History Nortriptyline [Pamelor] 50 mg PO HS 08/15/19 09/05/21 History Omeprazole [PriLOSEC] 20 mg PO BID 08/15/19 09/05/21 History Loratadine 10 mg PO HS 10/30/19 09/05/21 History Metoprolol Succinate (ER) [Toprol 50 mg PO DAILY 02/29/20 09/05/21 History XL] Docusate [Colace] 100 mg PO HS 05/19/20 09/05/21 History Multivitamins, Thera [Multivitamin 1 tab PO DAILY 10/16/20 09/05/21 History (formulary)] Furosemide [Lasix] 40 mg PO DAILY #30 tablet 12/29/20 09/05/21 Rx Amiodarone [Cordarone] 200 mg PO BID 06/02/21 09/05/21 History Celecoxib [CeleBREX] 200 mg PO DAILY 06/02/21 09/05/21 History Pioglitazone [Actos] 30 mg PO DAILY 06/02/21 09/05/21 History Potassium Chloride [Klor-Con 10 ER] 10 meq PO DAILY 06/02/21 09/05/21 History Warfarin [Coumadin] 3 mg PO HS 06/02/21 09/05/21 History lisinopriL [Prinivil] 20 mg PO HS 06/02/21 09/05/21 History metFORMIN HCL 500 mg PO BID 06/02/21 09/05/21 History Aspirin EC [Ecotrin Low Dose] 81 mg PO DAILY 09/05/21 09/05/21 History Allergies Allergy/AdvReac Type Severity Reaction Status Date / Time baclofen Allergy Unknown Verified 09/05/21 12:21 Physical Exam Vitals: Vital Signs Temp Pulse Pulse Resp BP BP Pulse Ox 09/05/21 13:42 16 09/05/21 07:00 98.0 F 77 16 161/87 96 09/05/21 06:55 97.6 F 78 18 134/69 95 09/05/21 04:01 97.9 F 88 22 134/68 97 09/05/21 00:52 97.6 F 85 16 125/82 98 Intake and Output 09/04/21 09/05/21 09/05/21 22:59 06:59 14:59 Output Total 300 Balance -300 Output: Urine 300 Other: Voiding Method Urinal Weight 77.111 kg 77.111 kg Results CBC & Chem 7: 09/05/21 01:13 09/05/21 01:13 Labs: Abnormal Lab Results - Last 24 Hours (Table) 09/05/21 09/05/21 09/05/21 Range/Units 01:11 01:13 01:13 Hgb 12.0 L (13.0-17.5) gm/dL Hct 38.1 L (39.0-53.0) % RDW 18.8 H (11.5-15.5) % PT 17.4 H (9.0-12.0) sec INR 1.7 H (<1.2) APTT 31.6 H (22.0-30.0) sec Carbon Dioxide (22-30) mmol/L Glucose (74-99) mg/dL POC Glucose (mg/dL) (75-99) mg/dL Urine Protein 1+ H (Negative) Urine Ketones 1+ H (Negative) Urine Mucus Rare H (None) /hpf 09/05/21 09/05/21 09/05/21 Range/Units 01:13 07:54 11:57 Hgb (13.0-17.5) gm/dL Hct (39.0-53.0) % RDW (11.5-15.5) % PT (9.0-12.0) sec INR (<1.2) APTT (22.0-30.0) sec Carbon Dioxide 20 L (22-30) mmol/L Glucose 173 H (74-99) mg/dL POC Glucose (mg/dL) 142 H 182 H (75-99) mg/dL Urine Protein (Negative) Urine Ketones (Negative) Urine Mucus (None) /hpf Thrombosis Risk Factor Assmnt - Choose All That Apply Any of the Below Risk Factors Present?: Yes Each Factor Represents 1 point: Varicose veins Other Risk Factors: Yes Each Risk Factor Represents 2 Points: Age 61-74 years Other congenital or acquired thrombophilia - If yes, enter type in comment: No Thrombosis Risk Factor Assessment Total Risk Factor Score: 3 Thrombosis Risk Factor Assessment Level: Moderate Risk
[2021-09-05] MEDS: AMIODARONE 200 MG TAB PO SCH ×2 (14:49→19:59)
[2021-09-05] MEDS: ASPIRIN 81 MG PO SCH (14:49)
[2021-09-05] MEDS: MELOXICAM 7.5 MG TAB PO SCH (15:01)
[2021-09-05 17:49] LABS: Glucose,Whole Blood 188 mg/dL (75-99)
[2021-09-05] MEDS ORDERED: WARFARIN 0.5 MG TAB PO ONE (18:00)
[2021-09-05] MEDS ORDERED: WARFARIN 3 MG TAB PO ONE (18:00)
[2021-09-05] MEDS: traMADol 50 MG TAB PO PRN (18:58)
[2021-09-05] MEDS: DOCUSATE 100 MG CAP PO SCH ×2 (19:58→19:59)
[2021-09-05] MEDS: LORATADINE 10 MG TAB PO SCH (19:58)
[2021-09-05 19:59] LABS: Glucose,Whole Blood 178 mg/dL (75-99)
[2021-09-05] MEDS: ATORVASTATIN 80 MG TAB PO SCH (19:59)
[2021-09-05] MEDS: NORTRIPTYLINE 25 MG CAP PO SCH (19:59)
[2021-09-05] MEDS: lisinopriL 20 MG TAB PO SCH (19:59)
[2021-09-05] MEDS: metFORMIN 500 MG TAB PO SCH (19:59)
[2021-09-05] MEDS: TOPIRAMATE 25 MG TAB PO SCH (19:59)
[2021-09-05] MEDS: diphenhydrAMINE 50 MG/ML 1 ML VIAL IVP PRN (20:00)
[2021-09-05] MEDS: PANTOPRAZOLE 40 MG TABLET PO SCH (20:01)
--- NOTE | 2021-09-05 22:51 | P.CONS ---
History of Present Illness - Reason for Consult Consult date: 09/05/21 Right lower extremity cellulitis Requesting physician: Samantha Rivera - Chief Complaint Right leg swelling and redness x few days - History of Present Illness Patient is 66-year-old male with a past medical history significant for diabetic foot infection in this patient who is status post left below the knee amputation patient did have a previous history of MRSA skin soft tissue infection, patient presenting to [facility] ER after midnight for eval uation of the right hand lower extremity pain swelling and edema in this patient symptom has been going on for a few days before presentation to the hospital patient denies having any history of any trauma or fall patient describes the pain to be more of a diffuse and sharp in nature with intensity almost 10 out of 10 in severity with associated swelling redness did not have any open wound or any drainage patient on presentation to the hospital was afebrile no fever has been recorded subsequently patient did have a normal white count kidney function has been normal exams are normal urine was negative patient did have a chest x- ray shows interstitial pneumonia not significantly changed from the previous exam patient also have x-rays of the tibia and fibula which did show soft tissue swelling no fracture seen patient was given Rocephin and vancomycin currently on vancomycin infectious disease was consulted for further management of antibiotic therapy Review of Systems Positive point has been mentioned in the HPI rest of the systems are negative Past Medical History Past Medical History: Atrial Fibrillation, Asthma, COPD, CVA/TIA, Diabetes Mellitus, Deep Vein Thrombosis (DVT), GERD/Reflux, Hyperlipidemia, Hypertension, Neurologic Disorder, Osteoarthritis (OA), Pneumonia, Pulmonary Embolus (PE), Skin Disorder, Vascular Disorder Additional Past Medical History / Comment(s): Pt admitted to [facility] on 11/20/20 with hyperkalemia, hyperglycemia, uncontrolled diabetes. Other hx: Lupus anticoagulant, DVTs bilateral legs, PEs bilateral lungs, pt has isabell filter, L AKA/wheelchair bound, NIDDM type II, neuropathy bilateral hands, wound care patient for buttock wound, now healed, TIAs, pneumothorax, past migraines, chronic low back pain, R leg edema at times, varicosities. History of Any Multi-Drug Resistant Organisms: MRSA Year Discovered:: 06/04/21 MDRO Source:: Right Leg MRSA Past Surgical History: Adenoidectomy, Appendectomy, Tonsillectomy Additional Past Surgical History / Comment(s): 1980s Isabell filter, stents in vessels "in pelvic area", total L hip arthroplasty, vein strippings, colonoscopy. left leg amputation Past Anesthesia/Blood Transfusion Reactions: No Reported Reaction Additional Past Anesthesia/Blood Transfusion Reaction / Comm: Pt has received blood in past without reaction. Past Psychological History: No Psychological Hx Reported Additional Psychological History / Comment(s): Pt currently living with his albina. He has a home care nurse thru [facility] pt states for wound care. He has a glucometer. He has a nebulizer but it is in his own home. Pt states he no longer drives and that getting to appts will be difficult for him. Smoking Status: Current every day smoker Past Alcohol Use History: None Reported Additional Past Alcohol Use History / Comment(s): Pt startes smoking in 1969 and is a ppd smoker. Past Drug Use History: None Reported - Past Family History Mother Family Medical History: Coronary Artery Disease (CAD), Myocardial Infarction (ID), Vascular Disorder Additional Family Medical History / Comment(s): heart disease, peripheral vascular disease. Father Family Medical History: Diabetes Mellitus, Renal Disease Medications and Allergies Home Medications Medication Instructions Recorded Confirmed Type Atorvastatin [Lipitor] 80 mg PO HS 01/09/14 09/05/21 History Topiramate [Topamax] 25 mg PO BID 01/09/14 09/05/21 History Nortriptyline [Pamelor] 50 mg PO HS 08/15/19 09/05/21 History Omeprazole [PriLOSEC] 20 mg PO BID 08/15/19 09/05/21 History Loratadine 10 mg PO HS 10/30/19 09/05/21 History Metoprolol Succinate (ER) [Toprol 50 mg PO DAILY 02/29/20 09/05/21 History XL] Docusate [Colace] 100 mg PO HS 05/19/20 09/05/21 History Multivitamins, Thera [Multivitamin 1 tab PO DAILY 10/16/20 09/05/21 History (formulary)] Furosemide [Lasix] 40 mg PO DAILY #30 tablet 12/29/20 09/05/21 Rx Amiodarone [Cordarone] 200 mg PO BID 06/02/21 09/05/21 History Celecoxib [CeleBREX] 200 mg PO DAILY 06/02/21 09/05/21 History Pioglitazone [Actos] 30 mg PO DAILY 06/02/21 09/05/21 History Potassium Chloride [Klor-Con 10 ER] 10 meq PO DAILY 06/02/21 09/05/21 History Warfarin [Coumadin] 3 mg PO HS 06/02/21 09/05/21 History lisinopriL [Prinivil] 20 mg PO HS 06/02/21 09/05/21 History metFORMIN HCL 500 mg PO BID 06/02/21 09/05/21 History Aspirin EC [Ecotrin Low Dose] 81 mg PO DAILY 09/05/21 09/05/21 History Allergies Allergy/AdvReac Type Severity Reaction Status Date / Time baclofen Allergy Unknown Verified 09/05/21 12:21 Physical Exam Vitals: Vital Signs Temp Pulse Pulse Resp BP BP Pulse Ox 09/05/21 07:00 98.0 F 77 16 161/87 96 09/05/21 06:55 97.6 F 78 18 134/69 95 09/05/21 04:01 97.9 F 88 22 134/68 97 09/05/21 00:52 97.6 F 85 16 125/82 98 Intake and Output 09/04/21 09/05/21 09/05/21 22:59 06:59 14:59 Output Total 300 Balance -300 Output: Urine 300 Other: Voiding Method Urinal Weight 77.111 kg 77.111 kg GENERAL DESCRIPTION: Middle-aged male lying in bed, no distress. No tachypnea or accessory muscle of respiration use. HEENT: Shows Pallor , no scleral icterus. Oral mucous membrane is dry. No pharyngeal erythema or thrush NECK: Trachea central, no thyromegaly. LUNGS: Unlabored breathing. Clear to auscultation anteriorly. No wheeze or crackle. HEART: S1, S2, regular rate and rhythm. No loud murmur ABDOMEN: Soft, no tenderness , guarding or rigidity, no organomegaly EXTREMITIES: Right leg did have swelling and minimal tenderness wound or any drainage SKIN: No rash, no masses palpable. NEUROLOGICAL: The patient is awake, alert, oriented x3, mood and affect normal. Results CBC & Chem 7: 09/05/21 01:13 09/05/21 01:13 Labs: Abnormal Lab Results - Last 24 Hours (Table) 09/05/21 09/05/21 09/05/21 Range/Units 01:11 01:13 01:13 Hgb 12.0 L (13.0-17.5) gm/dL Hct 38.1 L (39.0-53.0) % RDW 18.8 H (11.5-15.5) % PT 17.4 H (9.0-12.0) sec INR 1.7 H (<1.2) APTT 31.6 H (22.0-30.0) sec Carbon Dioxide (22-30) mmol/L Glucose (74-99) mg/dL POC Glucose (mg/dL) (75-99) mg/dL Urine Protein 1+ H (Negative) Urine Ketones 1+ H (Negative) Urine Mucus Rare H (None) /hpf 09/05/21 09/05/21 09/05/21 Range/Units 01:13 07:54 11:57 Hgb (13.0-17.5) gm/dL Hct (39.0-53.0) % RDW (11.5-15.5) % PT (9.0-12.0) sec INR (<1.2) APTT (22.0-30.0) sec Carbon Dioxide 20 L (22-30) mmol/L Glucose 173 H (74-99) mg/dL POC Glucose (mg/dL) 142 H 182 H (75-99) mg/dL Urine Protein (Negative) Urine Ketones (Negative) Urine Mucus (None) /hpf Assessment and Plan (1) Cellulitis of right leg Current Visit: Yes Status: Acute Code(s): L03.115 - CELLULITIS OF RIGHT LOWER LIMB SNOMED Code(s): 661843199 Plan: 1patient presented to hospital with acute left lower extremity pain and swelling and redness in this patient did have a some swelling minimal redness and warmth to touch with concern for underlying cellulitis no evidence of abscess clinically, will need to cover for the gram-positive skin [place] to be the likely pathogen with a history of MRSA infection could be likely MRSA. 2marked the area of the redness 3vancomycin pharmacy to dose with a target trough of 15 while watching kidney function and Vanco trough closely. We will follow on clinical condition and cultures to further adjust medication if needed Thank you for this consultation we will follow the patient along with you Time with Patient: Greater than 30
[2021-09-06] MEDS: diphenhydrAMINE 50 MG/ML 1 ML VIAL IVP PRN (02:40)
[2021-09-06 07:34] LABS: INR 1.9 (<1.2); Prothrombin Time 18.9 sec (9.0-12.0)
[2021-09-06 07:38] LABS: Glucose,Whole Blood 174 mg/dL (75-99)
[2021-09-06] MEDS: AMIODARONE 200 MG TAB PO SCH ×2 (07:48→20:09)
[2021-09-06] MEDS: MELOXICAM 7.5 MG TAB PO SCH (07:48)
[2021-09-06] MEDS: METOPROLOL SUCCINATE (ER) 50 MG TAB.ER.24H PO SCH (07:49)
[2021-09-06] MEDS: PIOGLITAZONE 30 MG TAB PO SCH (07:49)
[2021-09-06] MEDS: MULTIVITAMINS, THERA 1 EACH TAB PO SCH (07:49)
[2021-09-06] MEDS: POTASSIUM CHLORIDE ER 10 MEQ TAB.ER.PRT PO SCH (07:49)
[2021-09-06] MEDS: PANTOPRAZOLE 40 MG TABLET PO SCH (07:49)
[2021-09-06] MEDS: ASPIRIN 81 MG PO SCH (07:49)
[2021-09-06] MEDS: TOPIRAMATE 25 MG TAB PO SCH ×2 (07:49→20:09)
[2021-09-06] MEDS: metFORMIN 500 MG TAB PO SCH ×2 (07:49→20:09)
[2021-09-06] MEDS: FUROSEMIDE 40 MG TAB PO SCH (07:49)
[2021-09-06] MEDS: NICOTINE 14MG/24HR PATCH TRANSDERM SCH (07:50)
[2021-09-06 09:54] LABS: Basophils # (A) 0.03 X 10*3/uL (0.00-0.10); Basophils % (A) 0.5 %; Eosinophils # (A) 0.12 X 10*3/uL (0.04-0.35); Eosinophils % (A) 1.9 %; HCT 35.4 % (39.6-50.0); HGB 10.7 g/dL (13.0-17.0); Immature Grans, Automated 0.3 %; Lymphocytes % (A) 9.6 %; MCH 25.3 pg (27.0-32.0); MCHC 30.2 g/dL (32.0-37.0); MCV 83.7 fL (80.0-97.0); Mean Platelet Volume 10.9 fL (9.5-12.2); Monocytes # (A) 0.62 X 10*3/uL (0.20-1.00); Monocytes % (A) 9.9 %; NRBC Per 100 WBC 0 /100 WBCS (0.0-0.0); Neutrophils # (A) 4.89 X 10*3/uL (1.80-7.70); Neutrophils % (A) 77.8 %; Platelet Count 258 X 10*3/uL (140-440); RBC 4.23 X 10*6/uL (4.40-5.60); RDW 20.3 % (11.5-14.5); WBC 6.28 X 10*3/uL (4.50-10.00)
[2021-09-06 10:29] LABS: African American GFR (CKD) 91.8 (60.0-200.0); Albumin 3.5 g/dL (3.8-4.9); Albumin/Globulin Ratio 1.3 (1.60-3.17); Anion Gap 11.7 mmol/L (10.00-18.00); BUN/Creat Ratio 9.1 Ratio (12.00-20.00); Blood Urea Nitrogen 9.1 mg/dL (9.0-27.0); Calcium 8.5 mg/dL (8.7-10.3); Carbon Dioxide 20.3 mmol/L (20.0-27.5); Globulin 2.7 g/dL (1.6-3.3); Magnesium 2.2 mg/dL (1.5-2.4); Non-African American GFR(CKD) 79.2 (60.0-200.0); Potassium 4.6 mmol/L (3.5-5.5); Total Bilirubin 0.4 mg/dL (0.30-1.20); Total Protein 6.2 g/dL (6.2-8.2)
[2021-09-06] MEDS: VANCOMYCIN 1,500 MG in SODIUM CHLORIDE 0.9% 250 ML IVPB SCH ×2 (11:31→22:51)
[2021-09-06] MEDS: LORazepam 2 MG/ML INJ IV PRN ×2 (11:38→22:49)
[2021-09-06] MEDS: traMADol 50 MG TAB PO PRN ×2 (11:38→20:08)
[2021-09-06 11:55] LABS: Glucose,Whole Blood 204 mg/dL (75-99)
[2021-09-06] MEDS: INSULIN ASPART (NovoLOG) 100 UNIT/ML VIAL SQ SCH ×3 (13:22→20:07)
[2021-09-06] MEDS ORDERED: ACETAMINOPHEN TAB 325 MG TAB PO PRN (15:03)
[2021-09-06 17:27] LABS: Glucose,Whole Blood 193 mg/dL (75-99)
[2021-09-06] MEDS ORDERED: WARFARIN 3 MG TAB PO ONE (18:00)
[2021-09-06 19:36] LABS: Glucose,Whole Blood 172 mg/dL (75-99)
[2021-09-06] MEDS: NORTRIPTYLINE 25 MG CAP PO SCH (20:08)
[2021-09-06] MEDS: LORATADINE 10 MG TAB PO SCH (20:09)
[2021-09-06] MEDS: lisinopriL 20 MG TAB PO SCH (20:09)
[2021-09-06] MEDS: ATORVASTATIN 80 MG TAB PO SCH (20:09)
--- NOTE | 2021-09-06 21:23 | P.PN ---
Subjective Progress Note Date: 09/06/21 66-year-old male came in with complaints of swelling and redness of the right lower extremity found to have cellulitis has history of MRSA in the past doesn't have any fever doesn't have any leukocytosis. Patient has left leg amputation. Patient continues to smoke patient has valvular atrial fibrillation for which patient is on Coumadin, patient also has history of DVT in the past. Patient has multiple other medical problems. 09/06/2021 Patient evaluated today resting in bed. Currently describes dull ache to the right leg rated a 10/10 on home medication mobic and prn tylenol, tramadol added yesterday. Erythema to RLE stable, mildly improving continues on IV antibiotics. ID is following the patient. No fevers, blood pressure stable. WBC 6.28 today, hgb 10.7, INR 1.9, glucose elevated in the 170s. Last documented A1C, 16 in November of last year, will recheck. REVIEW OF SYSTEMS: CONSTITUTIONAL: No fever, no malaise, no fatigue. HEENT: No recent visual problems or hearing problems. Denied any sore throat. CARDIOVASCULAR: No chest pain, orthopnea, PND, no palpitations, no syncope. PULMONARY: No shortness of breath, no cough, no hemoptysis. GASTROINTESTINAL: No diarrhea, no nausea, no vomiting, no abdominal pain. All inpatient medications reviewed and are appropriate. PHYSICAL EXAMINATION: GENERAL: The patient is alert and oriented x3, not in any acute distress. Well developed, well nourished. HEENT: Pupils are round and equally reacting to light. EOMI. No scleral icterus. No conjunctival pallor. Normocephalic, atraumatic. No pharyngeal erythema. No thyromegaly. CARDIOVASCULAR: S1 and S2 present. No murmurs, rubs, or gallops. PULMONARY: Chest is clear to auscultation, no wheezing or crackles. ABDOMEN: Soft, nontender, nondistended, normoactive bowel sounds. No palpable organomegaly. MUSCULOSKELETAL: No joint swelling or deformity. EXTREMITIES: No cyanosis, clubbing, or pedal edema. NEUROLOGICAL: Gross neurological examination did not reveal any focal deficits. SKIN: Patient has significant redness to RLE improving, left lower extremity is below-knee amputation. Right lower extremity has some skin breakdown, no obvious purulent discharge Assessment and plan -Cellulitis of the right lower extremity: on IV vancomycin, infectious disease consultation. -Paroxysmal atrial fibrillation valvular atrial fibrillation, on coumadin therapy INR 1.9 today, he is currently on amiodarone which does interact with coumadin. 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 Counseling regarding smoking cessation -Chronic daily nicotine abuse, pt smokes 1/4 pack of cigarettes per day using nicotine patch. DVT prophylaxis: On Coumadin as mentioned above GI prophylaxis: Protonix Full Code Objective - Vital Signs Vital signs: Vital Signs Temp 97.5 F L 09/06/21 15:00 Pulse 70 09/06/21 15:00 Resp 18 09/06/21 15:00 BP 131/69 09/06/21 15:00 Pulse Ox 98 09/06/21 15:00 Intake & Output 09/05/21 09/06/21 09/06/21 18:59 06:59 18:59 Intake Total 118 Output Total 300 325 450 Balance -182 -325 -450 Weight 77.111 kg Intake: Oral 118 Output: Urine 300 325 450 Other: Voiding Method Urinal Urinal Urinal # Voids 1 1 2 - Labs CBC & Chem 7: 09/06/21 06:54 09/06/21 06:54 Labs: Abnormal Lab Results - Last 24 Hours (Table) 09/05/21 09/05/21 09/06/21 Range/Units 17:45 19:57 06:54 RBC 4.23 L (4.40-5.60) X 10*6/uL Hgb 10.7 L (13.0-17.0) g/dL Hct 35.4 L (39.6-50.0) % MCH 25.3 L (27.0-32.0) pg MCHC 30.2 L (32.0-37.0) g/dL RDW 20.3 H (11.5-14.5) % Lymphocytes # 0.60 L (0.90-5.00) X 10*3/uL PT (9.0-12.0) sec INR (<1.2) BUN/Creatinine Ratio (12.00-20.00) Ratio Glucose (70-110) mg/dL POC Glucose (mg/dL) 188 H 178 H (75-99) mg/dL Calcium (8.7-10.3) mg/dL AST (14-35) U/L Albumin (3.8-4.9) g/dL Albumin/Globulin Ratio (1.60-3.17) g/dL 09/06/21 09/06/21 09/06/21 Range/Units 06:54 06:54 07:36 RBC (4.40-5.60) X 10*6/uL Hgb (13.0-17.0) g/dL Hct (39.6-50.0) % MCH (27.0-32.0) pg MCHC (32.0-37.0) g/dL RDW (11.5-14.5) % Lymphocytes # (0.90-5.00) X 10*3/uL PT 18.9 H (9.0-12.0) sec INR 1.9 H (<1.2) BUN/Creatinine Ratio 9.10 L (12.00-20.00) Ratio Glucose 147 H (70-110) mg/dL POC Glucose (mg/dL) 174 H (75-99) mg/dL Calcium 8.5 L (8.7-10.3) mg/dL AST 11 L (14-35) U/L Albumin 3.5 L (3.8-4.9) g/dL Albumin/Globulin Ratio 1.30 L (1.60-3.17) g/dL 09/06/21 Range/Units 11:53 RBC (4.40-5.60) X 10*6/uL Hgb (13.0-17.0) g/dL Hct (39.6-50.0) % MCH (27.0-32.0) pg MCHC (32.0-37.0) g/dL RDW (11.5-14.5) % Lymphocytes # (0.90-5.00) X 10*3/uL PT (9.0-12.0) sec INR (<1.2) BUN/Creatinine Ratio (12.00-20.00) Ratio Glucose (70-110) mg/dL POC Glucose (mg/dL) 204 H (75-99) mg/dL Calcium (8.7-10.3) mg/dL AST (14-35) U/L Albumin (3.8-4.9) g/dL Albumin/Globulin Ratio (1.60-3.17) g/dL Microbiology - Last 24 Hours (Table) 09/05/21 01:45 Blood Culture - Preliminary Blood No Growth after 24 hours
--- NOTE | 2021-09-06 22:43 | P.PN ---
Subjective Progress Note Date: 09/06/21 Principal diagnosis: Right lower extremity cellulitis Patient is a 66-year-old male with a past medical history significant for left diabetic foot infection requiring left below the knee amputation and did have a history of right lower extremity cellulitis secondary to MRSA presenting to the hospital with right lower extremity swelling and redness concerning for cellulitis. On today's evaluation that is 09/06/2021, the patient denies having any fever or chills, the patient is still complaining of pain to the right lower extremity and one more pain medication patient did have a some swelling redness but no wound or any drainage denies any abdominal pain and no diarrhea Objective - Vital Signs Vital signs: Vital Signs Temp 98.2 F 09/06/21 07:00 Pulse 78 09/06/21 07:00 Resp 16 09/06/21 07:00 BP 120/72 09/06/21 07:00 Pulse Ox 95 09/06/21 07:00 Intake & Output 09/05/21 09/06/21 09/06/21 18:59 06:59 18:59 Intake Total 118 Output Total 300 325 Balance -182 -325 Weight 77.111 kg Intake: Oral 118 Output: Urine 300 325 Other: Voiding Method Urinal Urinal Urinal # Voids 1 1 - Exam GENERAL DESCRIPTION: A middle-aged male lying in bed in no distress RESPIRATORY SYSTEM: Unlabored breathing , decreased breath sounds at bases HEART: S1 S2 regular rate and rhythm , ABDOMEN: Soft , no tenderness EXTREMITIES: Right leg with swelling and minimal redness wound or any drainage - Labs CBC & Chem 7: 09/06/21 06:54 09/06/21 06:54 Labs: Abnormal Lab Results - Last 24 Hours (Table) 09/05/21 09/05/21 09/06/21 Range/Units 17:45 19:57 06:54 RBC 4.23 L (4.40-5.60) X 10*6/uL Hgb 10.7 L (13.0-17.0) g/dL Hct 35.4 L (39.6-50.0) % MCH 25.3 L (27.0-32.0) pg MCHC 30.2 L (32.0-37.0) g/dL RDW 20.3 H (11.5-14.5) % Lymphocytes # 0.60 L (0.90-5.00) X 10*3/uL PT (9.0-12.0) sec INR (<1.2) BUN/Creatinine Ratio (12.00-20.00) Ratio Glucose (70-110) mg/dL POC Glucose (mg/dL) 188 H 178 H (75-99) mg/dL Calcium (8.7-10.3) mg/dL AST (14-35) U/L Albumin (3.8-4.9) g/dL Albumin/Globulin Ratio (1.60-3.17) g/dL 09/06/21 09/06/21 09/06/21 Range/Units 06:54 06:54 07:36 RBC (4.40-5.60) X 10*6/uL Hgb (13.0-17.0) g/dL Hct (39.6-50.0) % MCH (27.0-32.0) pg MCHC (32.0-37.0) g/dL RDW (11.5-14.5) % Lymphocytes # (0.90-5.00) X 10*3/uL PT 18.9 H (9.0-12.0) sec INR 1.9 H (<1.2) BUN/Creatinine Ratio 9.10 L (12.00-20.00) Ratio Glucose 147 H (70-110) mg/dL POC Glucose (mg/dL) 174 H (75-99) mg/dL Calcium 8.5 L (8.7-10.3) mg/dL AST 11 L (14-35) U/L Albumin 3.5 L (3.8-4.9) g/dL Albumin/Globulin Ratio 1.30 L (1.60-3.17) g/dL 09/06/21 Range/Units 11:53 RBC (4.40-5.60) X 10*6/uL Hgb (13.0-17.0) g/dL Hct (39.6-50.0) % MCH (27.0-32.0) pg MCHC (32.0-37.0) g/dL RDW (11.5-14.5) % Lymphocytes # (0.90-5.00) X 10*3/uL PT (9.0-12.0) sec INR (<1.2) BUN/Creatinine Ratio (12.00-20.00) Ratio Glucose (70-110) mg/dL POC Glucose (mg/dL) 204 H (75-99) mg/dL Calcium (8.7-10.3) mg/dL AST (14-35) U/L Albumin (3.8-4.9) g/dL Albumin/Globulin Ratio (1.60-3.17) g/dL Microbiology - Last 24 Hours (Table) 09/05/21 01:45 Blood Culture - Preliminary Blood No Growth after 24 hours Assessment and Plan (1) Cellulitis of right leg Current Visit: Yes Status: Acute Code(s): L03.115 - CELLULITIS OF RIGHT LOWER LIMB SNOMED Code(s): 330164170 Plan: 1patient presented to hospital with acute left lower extremity pain and swelling and redness in this patient did have a some swelling minimal redness and warmth to touch with concern for underlying cellulitis no evidence of abscess clinically, will need to cover for the gram-positive skin [place] to be the likely pathogen with a history of MRSA infection could be likely MRSA. 2patient to continue with vancomycin pharmacy to dose with a target trough of 15 while watching kidney function and Vanco trough closely. Time with Patient: Less than 30
[2021-09-07 07:23] LABS: Glucose,Whole Blood 146 mg/dL (75-99)
[2021-09-07] MEDS: MELOXICAM 7.5 MG TAB PO SCH (08:16)
[2021-09-07] MEDS: NICOTINE 14MG/24HR PATCH TRANSDERM SCH (08:16)
[2021-09-07] MEDS: ASPIRIN 81 MG PO SCH (08:16)
[2021-09-07] MEDS: PANTOPRAZOLE 40 MG TABLET PO SCH (08:16)
[2021-09-07] MEDS: METOPROLOL SUCCINATE (ER) 50 MG TAB.ER.24H PO SCH (08:17)
[2021-09-07] MEDS: POTASSIUM CHLORIDE ER 10 MEQ TAB.ER.PRT PO SCH (08:17)
[2021-09-07] MEDS: TOPIRAMATE 25 MG TAB PO SCH ×2 (08:17→21:35)
[2021-09-07] MEDS: FUROSEMIDE 40 MG TAB PO SCH (08:17)
[2021-09-07] MEDS: MULTIVITAMINS, THERA 1 EACH TAB PO SCH (08:17)
[2021-09-07] MEDS: PIOGLITAZONE 30 MG TAB PO SCH (08:17)
[2021-09-07] MEDS: metFORMIN 500 MG TAB PO SCH ×2 (08:17→21:36)
[2021-09-07] MEDS: AMIODARONE 200 MG TAB PO SCH ×2 (08:18→21:35)
[2021-09-07] MEDS: traMADol 50 MG TAB PO PRN (08:25)
[2021-09-07] MEDS: INSULIN ASPART (NovoLOG) 100 UNIT/ML VIAL SQ SCH ×4 (09:17→21:34)
[2021-09-07] MEDS: PREGABALIN 100 MG CAP PO SCH ×2 (10:21→21:35)
[2021-09-07] MEDS ORDERED: VANCOMYCIN TROUGH DUE 1 EACH MISC MISCELLANE ONE (11:00)
[2021-09-07] MEDS: VANCOMYCIN 1,500 MG in SODIUM CHLORIDE 0.9% 250 ML IVPB SCH (12:16)
[2021-09-07 12:25] LABS: Glucose,Whole Blood 139 mg/dL (75-99)
[2021-09-07 12:55] LABS: INR 1.5 (<1.2); Prothrombin Time 15.9 sec (9.0-12.0)
[2021-09-07] MEDS: oxyCODONE-APAP 10-325MG 1 EACH TAB PO PRN ×2 (13:54→18:15)
[2021-09-07 17:36] LABS: Glucose,Whole Blood 218 mg/dL (75-99)
[2021-09-07] MEDS ORDERED: WARFARIN 0.5 MG TAB PO ONE (18:00)
[2021-09-07] MEDS ORDERED: WARFARIN 3 MG TAB PO ONE (18:00)
[2021-09-07 20:39] LABS: Glucose,Whole Blood 203 mg/dL (75-99)
[2021-09-07] MEDS: NORTRIPTYLINE 25 MG CAP PO SCH ×2 (21:35→21:38)
[2021-09-07] MEDS: ATORVASTATIN 80 MG TAB PO SCH (21:35)
[2021-09-07] MEDS: LORATADINE 10 MG TAB PO SCH (21:35)
[2021-09-07] MEDS: lisinopriL 20 MG TAB PO SCH (21:36)
[2021-09-07] MEDS: DOCUSATE 100 MG CAP PO SCH (21:39)
[2021-09-08] MEDS: VANCOMYCIN 1,500 MG in SODIUM CHLORIDE 0.9% 250 ML IVPB SCH ×2 (00:13→12:16)
[2021-09-08 07:22] LABS: INR 1.4 (<1.2); Prothrombin Time 14.6 sec (9.0-12.0)
[2021-09-08 07:22] LABS: Glucose,Whole Blood 131 mg/dL (75-99)
[2021-09-08] MEDS: INSULIN ASPART (NovoLOG) 100 UNIT/ML VIAL SQ SCH ×2 (09:19→13:12)
[2021-09-08] MEDS: FUROSEMIDE 40 MG TAB PO SCH (09:22)
[2021-09-08] MEDS: POTASSIUM CHLORIDE ER 10 MEQ TAB.ER.PRT PO SCH (09:22)
[2021-09-08] MEDS: ASPIRIN 81 MG PO SCH (09:22)
[2021-09-08] MEDS: PREGABALIN 100 MG CAP PO SCH (09:23)
[2021-09-08] MEDS: MELOXICAM 7.5 MG TAB PO SCH (09:23)
[2021-09-08] MEDS: PIOGLITAZONE 30 MG TAB PO SCH (09:24)
[2021-09-08] MEDS: AMIODARONE 200 MG TAB PO SCH (09:24)
[2021-09-08] MEDS: MULTIVITAMINS, THERA 1 EACH TAB PO SCH (09:25)
[2021-09-08] MEDS: PANTOPRAZOLE 40 MG TABLET PO SCH (09:25)
[2021-09-08] MEDS: metFORMIN 500 MG TAB PO SCH (09:25)
[2021-09-08] MEDS: TOPIRAMATE 25 MG TAB PO SCH (09:25)
[2021-09-08] MEDS: NICOTINE 14MG/24HR PATCH TRANSDERM SCH (09:26)
[2021-09-08] MEDS: METOPROLOL SUCCINATE (ER) 50 MG TAB.ER.24H PO SCH (09:30)
--- NOTE | 2021-09-08 10:36 | P.PN ---
Subjective Progress Note Date: 09/07/21 Principal diagnosis: Right lower extremity cellulitis Patient is a 66-year-old male with a past medical history significant for left diabetic foot infection requiring left below the knee amputation and did have a history of right lower extremity cellulitis secondary to MRSA presenting to the hospital with right lower extremity swelling and redness concerning for cellulitis. On today's evaluation that is 09/07/2021 the patient remains to be afebrile the patient pain to the right lower extremity has decreased in intensity redness has decreased as well there is no point wound or any drainage no chest pain shortness of breath no cough no abdominal pain no diarrhea Objective - Vital Signs Vital signs: Vital Signs Temp 98.1 F 09/07/21 07:00 Pulse 70 09/07/21 07:00 Resp 16 09/07/21 07:00 BP 118/70 09/07/21 07:00 Pulse Ox 95 09/07/21 07:00 Intake & Output 09/06/21 09/07/21 09/07/21 18:59 06:59 18:59 Intake Total 118 Output Total 450 400 Balance -450 -282 Intake: Oral 118 Output: Urine 450 400 Other: Voiding Method Urinal Urinal # Voids 2 2 1 - Exam GENERAL DESCRIPTION: A middle-aged male lying in bed in no distress RESPIRATORY SYSTEM: Unlabored breathing , decreased breath sounds at bases HEART: S1 S2 regular rate and rhythm , ABDOMEN: Soft , no tenderness EXTREMITIES: Right leg with swelling and minimal redness wound or any drainage - Labs CBC & Chem 7: 09/06/21 06:54 09/08/21 06:22 Labs: Abnormal Lab Results - Last 24 Hours (Table) 09/06/21 09/06/21 09/06/21 Range/Units 06:54 11:53 17:26 BUN/Creatinine Ratio 9.10 L (12.00-20.00) Ratio Glucose 147 H (70-110) mg/dL POC Glucose (mg/dL) 204 H 193 H (75-99) mg/dL Calcium 8.5 L (8.7-10.3) mg/dL AST 11 L (14-35) U/L Albumin 3.5 L (3.8-4.9) g/dL Albumin/Globulin Ratio 1.30 L (1.60-3.17) g/dL 09/06/21 09/07/21 Range/Units 19:35 07:21 BUN/Creatinine Ratio (12.00-20.00) Ratio Glucose (70-110) mg/dL POC Glucose (mg/dL) 172 H 146 H (75-99) mg/dL Calcium (8.7-10.3) mg/dL AST (14-35) U/L Albumin (3.8-4.9) g/dL Albumin/Globulin Ratio (1.60-3.17) g/dL Microbiology - Last 24 Hours (Table) 09/05/21 01:45 Blood Culture - Preliminary Blood No Growth after 48 hours Assessment and Plan (1) Cellulitis of right leg Current Visit: Yes Status: Acute Code(s): L03.115 - CELLULITIS OF RIGHT LOWER LIMB SNOMED Code(s): 174296987 Plan: 1patient presented to hospital with acute left lower extremity pain and swelling and redness in this patient did have a some swelling minimal redness and warmth to touch with concern for underlying cellulitis no evidence of abscess clinically, Patient to continue with vancomycin while inpatient however can be transition to oral doxycycline 100 mg twice a day for 10 days on discharge, Discussed with the nurse practitioner for admitting team Time with Patient: Less than 30
--- NOTE | 2021-09-08 11:44 | P.PN ---
Subjective Progress Note Date: 09/07/21 66-year-old male came in with complaints of swelling and redness of the right lower extremity found to have cellulitis has history of MRSA in the past doesn't have any fever doesn't have any leukocytosis. Patient has left leg amputation. Patient continues to smoke patient has valvular atrial fibrillation for which patient is on Coumadin, patient also has history of DVT in the past. Patient has multiple other medical problems. 09/06/2021 Patient evaluated today resting in bed. Currently describes dull ache to the right leg rated a 10/10 on home medication mobic and prn tylenol, tramadol added yesterday. Erythema to RLE stable, mildly improving continues on IV antibiotics. ID is following the patient. No fevers, blood pressure stable. WBC 6.28 today, hgb 10.7, INR 1.9, glucose elevated in the 170s. Last documented A1C, 16 in November of last year, will recheck. 09/07/2021 Patient evaluated today resting in bed pain stable to the right leg, cellulitis appears stable from yesterday. Continues on IV antibiotics with ID consultation. Labs today show creat 1.18. Vital stable afebrile, heart rate 70, blood pressure 118/70, 95% room air. Blood cultures so far negative. Pending ID clearance for discharge on oral antibiotics. REVIEW OF SYSTEMS: CONSTITUTIONAL: No fever, no malaise, no fatigue. HEENT: No recent visual problems or hearing problems. Denied any sore throat. CARDIOVASCULAR: No chest pain, orthopnea, PND, no palpitations, no syncope. PULMONARY: No shortness of breath, no cough, no hemoptysis. GASTROINTESTINAL: No diarrhea, no nausea, no vomiting, no abdominal pain. All inpatient medications reviewed and are appropriate. PHYSICAL EXAMINATION: GENERAL: The patient is alert and oriented x3, not in any acute distress. Well developed, well nourished. HEENT: Pupils are round and equally reacting to light. EOMI. No scleral icterus. No conjunctival pallor. Normocephalic, atraumatic. No pharyngeal erythema. No thyromegaly. CARDIOVASCULAR: S1 and S2 present. No murmurs, rubs, or gallops. PULMONARY: Chest is clear to auscultation, no wheezing or crackles. ABDOMEN: Soft, nontender, nondistended, normoactive bowel sounds. No palpable organomegaly. MUSCULOSKELETAL: No joint swelling or deformity. EXTREMITIES: No cyanosis, clubbing, or pedal edema. NEUROLOGICAL: Gross neurological examination did not reveal any focal deficits. SKIN: Patient has significant redness to RLE improving, left lower extremity is below-knee amputation. Right lower extremity has some skin breakdown, no obvious purulent discharge Assessment and plan -Cellulitis of the right lower extremity: on IV vancomycin, infectious disease consultation. -Paroxysmal atrial fibrillation valvular atrial fibrillation, on coumadin therapy INR 1.9 today, he is currently on amiodarone which does interact with coumadin. 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 Counseling regarding smoking cessation -Chronic daily nicotine abuse, pt smokes 1/4 pack of cigarettes per day using nicotine patch. DVT prophylaxis: On Coumadin as mentioned above GI prophylaxis: Protonix Full Code Objective - Vital Signs Vital signs: Vital Signs Temp 98.1 F 09/07/21 07:00 Pulse 70 09/07/21 07:00 Resp 16 09/07/21 07:00 BP 118/70 09/07/21 07:00 Pulse Ox 95 09/07/21 07:00 Intake & Output 09/06/21 09/07/21 09/07/21 18:59 06:59 18:59 Intake Total 118 Output Total 450 400 Balance -450 -282 Intake: Oral 118 Output: Urine 450 400 Other: Voiding Method Urinal Urinal # Voids 2 2 1 - Labs CBC & Chem 7: 09/06/21 06:54 09/08/21 06:22 Labs: Abnormal Lab Results - Last 24 Hours (Table) 09/06/21 09/06/21 09/06/21 Range/Units 06:54 11:53 17:26 BUN/Creatinine Ratio 9.10 L (12.00-20.00) Ratio Glucose 147 H (70-110) mg/dL POC Glucose (mg/dL) 204 H 193 H (75-99) mg/dL Calcium 8.5 L (8.7-10.3) mg/dL AST 11 L (14-35) U/L Albumin 3.5 L (3.8-4.9) g/dL Albumin/Globulin Ratio 1.30 L (1.60-3.17) g/dL 09/06/21 09/07/21 Range/Units 19:35 07:21 BUN/Creatinine Ratio (12.00-20.00) Ratio Glucose (70-110) mg/dL POC Glucose (mg/dL) 172 H 146 H (75-99) mg/dL Calcium (8.7-10.3) mg/dL AST (14-35) U/L Albumin (3.8-4.9) g/dL Albumin/Globulin Ratio (1.60-3.17) g/dL Microbiology - Last 24 Hours (Table) 09/05/21 01:45 Blood Culture - Preliminary Blood No Growth after 48 hours
--- NOTE | 2021-09-08 11:59 | CDI ---
Documentation Clarification Form Date: 09/08/2021 11:46:35 AM From: Violeta Yang RN CCDS Admit Date: 09/07/2021 09:29:00 AM Patient Name: Checo Quijano Visit Number: [id number] Discharge Date: ATTENTION: The Clinical Documentation Specialists (CDI) and [facility] Coding Staff appreciate your assistance in clarifying documentation. Please respond to the clarification below the line at the bottom and electronically sign. The CDI & [facility] Coding staff will review the response and follow-up if needed. Please note: Queries are made part of the Legal Health Record. If you have any questions, please contact the author of this message via ITS. Dr. Samantha Rivera Cellulitis is documented 09/05, H&P; 08/17, Medicine progress note. Additional clarification regarding the type of cellulitis is requested. History/risk factors: 66-year-old male presents to the ED with swelling and redness of the right lower extremity. Medical History: MRSA infection, DM, CKD and Left leg amputation. 09/05, H&P. Clinical Indicators: VSS: B/P 125/82; HR 85; Temp 97.6 Oral F; RR 16; SpO2 98% ra 09/05, ID Consult: Cellulitis of the right leg. 09/05, Right Tibia/fibula: Soft tissue swelling. 09/05 Glucose Lab: 173 Treatment: 09/05 Rocephin1,000mg IVPB x 1; 09/05 Rocephin 2gm IVPB x 1; 09/05 d/cd 09/05 Rocephin 1gm IVPB Q12HR; 09/05 current Vancomycin 1,500mg IVPB Q12HR; 09/05 current Glucophage 500mg PO BID; 09/06 Actos 30mg PO Daily; Please clarify the type of cellulitis, if known: [x ] Cellulitis due to diabetes [ ] Other, please specify: [ ] Unable to determine (Template Last Revised: September 2020) MTDD
[2021-09-08 12:32] LABS: Glucose,Whole Blood 202 mg/dL (75-99)
--- NOTE | 2021-09-08 14:15 | P.DS ---
Providers Date of admission: 09/07/21 09:29 Attending physician: Shadia Alvarez Consults: 09/05/21 12:00 Consult Physician Routine Consulting Provider: Sherman Ordoñez Consult Reason/Comments: CELLULITIS RLE Do you want consulting provider notified?: Yes Primary care physician: Kristin Emery Hospital Course: Final Diagnosis -Cellulitis of the right lower extremity with chronic skin changes related to uncontrolled diabetes: on IV vancomycin, infectious disease consultation. -Paroxysmal atrial fibrillation valvular atrial fibrillation, on coumadin therapy INR 1.9 today, he is currently on amiodarone which does interact with coumadin. 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 Counseling regarding smoking cessation -Chronic daily nicotine abuse, pt smokes 1/4 pack of cigarettes per day using nicotine patch. Discharge Disposition Patient stable for discharge on oral antibiotics. Cleared by ID. INR today 1.4, received 5 mg coumadin prior to discharge with labs given for follow up INR. Hospital Course This is a pleasant 66 year old male who presents to the with right lower extremity cellulitis worsening at home with associated lower extremity edema. Patient denies fever or chills, however overall feeling weak with decreased appetite. Patient with history of MRSA because of this started on IV vancomycin inpatient with an infectious disease consultation. Past medical history significant for atrial fibrillation on coumadin, asthma/copd, chronic daily smoker, diabetes mellitus, hyperlipidemia, hypertension, PE, DVT, left above the knee amputation which he uses a wheelchair for mobility, neuropathy, TIA. Pt currently staying in motel since from . Tib/Fib Xray shows soft tissue swelling, no fracture, stable from previous exam Chest Xray shows interstitial pneumonia, with possible pulmonary fibrosis, stable from previous exam Labs on admission, WBC 8.0, hgb 12.0, INR 1.7, glucose in the 170's. Urinalysis negative. Patient was treated with IV vancomycin, home medications reordered. Some confusion on current home medications as patient had brought some prescriptions with him but with recent medication changes in the primary care office. Reviewed with pharmacy and med rec was updated. 09/08/2021 Cellulitis improving, less edema. No acute events over night. A1C came back at 9.1, discharging patient on semglee in addition to home oral diabetic medications. INR, CBC, and BMP monitoring on discharge. Creatinine today 1.46 which is increased slightly from yesterday with baseline around 1.1/1.2. Vitals today afebrile, heart rate 60, blood pressure 131/75, 95% on room air. No complains of chest pain, chest pressure, cough, or shortness of breath. Follow up with PCP and infectious disease/wound care. Lungs clear, s1 s2 auscultated, abdomen soft and nontender, focal neurological exam is negative. Please see medication reconciliation for a list of current medications. Thank you for allowing us to participate in the care of this patient. Patient Condition at Discharge: Good Plan - Discharge Summary Discharge Rx Participant: No New Discharge Prescriptions: New Doxycycline [Vibramycin] 100 mg PO BID 10 Days #10 capsule Nicotine 14Mg/24Hr Patch [Habitrol] 1 patch TRANSDERM DAILY #7 patch Insulin Glargine,Hum.rec.anlog [Semglee Pen] 15 units SQ HS #5 each Continue Atorvastatin [Lipitor] 80 mg PO HS Topiramate [Topamax] 25 mg PO BID Omeprazole [PriLOSEC] 20 mg PO BID Nortriptyline [Pamelor] 50 mg PO HS Loratadine 10 mg PO HS Metoprolol Succinate (ER) [Toprol XL] 50 mg PO DAILY Docusate [Colace] 100 mg PO HS Furosemide [Lasix] 40 mg PO DAILY #30 tablet Amiodarone [Cordarone] 200 mg PO BID Celecoxib [CeleBREX] 200 mg PO DAILY metFORMIN HCL 500 mg PO BID oxyCODONE-APAP 10-325MG [Percocet 10-325 mg] 1 tab PO Q4H PRN PRN Reason: Pain Pregabalin [Lyrica] 300 mg PO BID Multivitamins, Thera [Multivitamin (formulary)] 1 tab PO DAILY lisinopriL [Prinivil] 20 mg PO HS Pioglitazone [Actos] 30 mg PO DAILY Potassium Chloride [Klor-Con 10 ER] 10 meq PO DAILY Warfarin [Coumadin] 3 mg PO HS Aspirin EC [Ecotrin Low Dose] 81 mg PO DAILY Glimepiride [Amaryl] 4 mg PO AC-BRKFST DULoxetine HCL [Cymbalta] 30 mg PO DAILY Discharge Medication List Atorvastatin [Lipitor] 80 mg PO HS 01/09/14 [History] Topiramate [Topamax] 25 mg PO BID 01/09/14 [History] Nortriptyline [Pamelor] 50 mg PO HS 08/15/19 [History] Omeprazole [PriLOSEC] 20 mg PO BID 08/15/19 [History] Loratadine 10 mg PO HS 10/30/19 [History] Metoprolol Succinate (ER) [Toprol XL] 50 mg PO DAILY 02/29/20 [History] Docusate [Colace] 100 mg PO HS 05/19/20 [History] Multivitamins, Thera [Multivitamin (formulary)] 1 tab PO DAILY 10/16/20 [History] Furosemide [Lasix] 40 mg PO DAILY #30 tablet 12/29/20 [Rx] Amiodarone [Cordarone] 200 mg PO BID 06/02/21 [History] Celecoxib [CeleBREX] 200 mg PO DAILY 06/02/21 [History] Pioglitazone [Actos] 30 mg PO DAILY 06/02/21 [History] Potassium Chloride [Klor-Con 10 ER] 10 meq PO DAILY 06/02/21 [History] Warfarin [Coumadin] 3 mg PO HS 06/02/21 [History] lisinopriL [Prinivil] 20 mg PO HS 06/02/21 [History] metFORMIN HCL 500 mg PO BID 06/02/21 [History] Aspirin EC [Ecotrin Low Dose] 81 mg PO DAILY 09/05/21 [History] DULoxetine HCL [Cymbalta] 30 mg PO DAILY 09/07/21 [History] Doxycycline [Vibramycin] 100 mg PO BID 10 Days #10 capsule 09/07/21 [Rx] Glimepiride [Amaryl] 4 mg PO AC-BRKFST 09/07/21 [History] Nicotine 14Mg/24Hr Patch [Habitrol] 1 patch TRANSDERM DAILY #7 patch 09/07/21 [Rx] Pregabalin [Lyrica] 300 mg PO BID 09/07/21 [History] oxyCODONE-APAP 10-325MG [Percocet 10-325 mg] 1 tab PO Q4H PRN 09/07/21 [History] Insulin Glargine,Hum.rec.anlog [Semglee Pen] 15 units SQ HS #5 each 09/08/21 [Rx] Follow up Appointment(s)/Referral(s): Kristin Emery DO [Primary Care Provider] - 1-2 days [facility], [NON-STAFF] - 1-2 Days [facility] [NON-STAFF] - As Needed (Contact regarding a shower chair if you would like to borrow on.) Ambulatory/Diagnostic Orders: Basic Metabolic Panel [LAB.AMB] Time Frame: 2 Days, Location: None Selected Complete Blood Count w/diff [LAB.AMB] Time Frame: 2 Days, Location: None Selected Prothrombin Time INR [LAB.AMB] Time Frame: 2 Days, Location: None Selected Patient Instructions/Handouts: Warfarin (By mouth) Activity/Diet/Wound Care/Special Instructions: consistent carb diet. activity as tolerated. follow up with your personal Physician as directed. have lab work drawn as directed. call your Dr with return or worsening of the symptoms that brought you here or any concerns. have labs drawn as directed. complete oral antibiotics as prescribed Discharge/Stand Alone Forms: Who Do I Call?, Personal Bicycle [employer] Discharge Disposition: HOME WITH HOME HEALTH SERVICES
[2021-09-08 14:45] VITALS: BP 120/73; PULSE 57; RESP 18; TEMP 98.3
[2021-09-08] MEDS ORDERED: WARFARIN 5 MG TAB PO ONE (18:00)
[2021-09-08] MEDS ORDERED: VANCOMYCIN TROUGH DUE 1 EACH MISC MISCELLANE ONE (23:00)
--- NOTE | 2021-09-15 22:08 | P.PN ---
Subjective Progress Note Date: 09/08/21 Principal diagnosis: Right lower extremity cellulitis Patient is a 66-year-old male with a past medical history significant for left diabetic foot infection requiring left below the knee amputation and did have a history of right lower extremity cellulitis secondary to MRSA presenting to the hospital with right lower extremity swelling and redness concerning for cellulitis. On today's evaluation that is 09/08/2021 the patient continues to be afebrile the patient pain to the right lower extremity has decreased in intensity , right lower extremity redness has decreased as well there is no open wound or any drainage, the patient denies chest pain shortness of breath no cough no abdominal pain no diarrhea Objective - Vital Signs Vital signs: Vital Signs Temp 97.6 F 09/08/21 08:00 Pulse 60 09/08/21 09:21 Resp 16 09/08/21 08:00 BP 131/75 09/08/21 08:00 Pulse Ox 95 09/08/21 08:00 Intake & Output 09/07/21 09/08/21 09/08/21 18:59 06:59 18:59 Intake Total 118 180 Output Total 850 Balance -732 180 Intake: Oral 118 180 Output: Urine 850 Other: Voiding Method Urinal # Voids 1 2 - Exam GENERAL DESCRIPTION: A middle-aged male lying in bed in no distress RESPIRATORY SYSTEM: Unlabored breathing , decreased breath sounds at bases HEART: S1 S2 regular rate and rhythm , ABDOMEN: Soft , no tenderness EXTREMITIES: Right leg with swelling and minimal redness wound or any drainage - Labs CBC & Chem 7: 09/06/21 06:54 09/08/21 06:22 Labs: Abnormal Lab Results - Last 24 Hours (Table) 09/07/21 09/07/21 09/07/21 Range/Units 11:55 11:55 12:23 PT 15.9 H (9.0-12.0) sec INR 1.5 H (<1.2) Creatinine (0.66-1.25) mg/dL POC Glucose (mg/dL) 139 H (75-99) mg/dL Hemoglobin A1c 9.1 H (0.0-6.0) % 09/07/21 09/07/21 09/08/21 Range/Units 17:35 20:38 06:22 PT (9.0-12.0) sec INR (<1.2) Creatinine 1.46 H (0.66-1.25) mg/dL POC Glucose (mg/dL) 218 H 203 H (75-99) mg/dL Hemoglobin A1c (0.0-6.0) % 09/08/21 09/08/21 Range/Units 06:22 07:21 PT 14.6 H (9.0-12.0) sec INR 1.4 H (<1.2) Creatinine (0.66-1.25) mg/dL POC Glucose (mg/dL) 131 H (75-99) mg/dL Hemoglobin A1c (0.0-6.0) % Microbiology - Last 24 Hours (Table) 09/05/21 01:45 Blood Culture - Preliminary Blood No Growth after 72 hours Assessment and Plan (1) Cellulitis of right leg Status: Acute Code(s): L03.115 - CELLULITIS OF RIGHT LOWER LIMB SNOMED Code(s): 472226546 Plan: 1patient presented to hospital with acute left lower extremity pain and swelling and redness in this patient did have a some swelling minimal redness and warmth to touch with concern for underlying cellulitis no evidence of abscess clinically, Patient clinically improved with vancomycin with the plan to finish therapy with oral doxycycline 100 mg twice a day for 10 days on discharge, Time with Patient: Less than 30
== END 2021-09-08 14:56 | disposition home health service (06) ==
LOC: EC 00:47 → 6NMEDSUR 05:22 → INTOOBSV 09-07 09:29 → OBSVTOIN 09-07 09:29 → UNDODISIN 09-08 14:56
PROVIDERS: ADMIT Hospitalist; ATTEND Hospitalist
DX: E11.628 Type 2 diabetes mellitus with other skin complications (principal); L03.115 Cellulitis of right lower limb; E11.65 Type 2 diabetes mellitus with hyperglycemia; D68.62 Lupus anticoagulant syndrome; I48.0 Paroxysmal atrial fibrillation; J44.9 Chronic obstructive pulmonary disease, unspecified; K21.9 Gastro-esophageal reflux disease without esophagitis; M19.90 Unspecified osteoarthritis, unspecified site; I12.9 Hypertensive chronic kidney disease with stage 1 through stage 4 chronic kidney disease, or unspecified chronic kidney disease; N18.2 Chronic kidney disease, stage 2 (mild); E11.22 Type 2 diabetes mellitus with diabetic chronic kidney disease; E11.51 Type 2 diabetes mellitus with diabetic peripheral angiopathy without gangrene; E11.40 Type 2 diabetes mellitus with diabetic neuropathy, unspecified; E86.0 Dehydration; E78.5 Hyperlipidemia, unspecified; R32 Unspecified urinary incontinence; I67.9 Cerebrovascular disease, unspecified; F17.210 Nicotine dependence, cigarettes, uncomplicated; Z79.01 Long term (current) use of anticoagulants; Z79.02 Long term (current) use of antithrombotics/antiplatelets; Z79.1 Long term (current) use of non-steroidal anti-inflammatories (NSAID); Z79.51 Long term (current) use of inhaled steroids; Z79.82 Long term (current) use of aspirin; Z79.84 Long term (current) use of oral hypoglycemic drugs; Z79.899 Other long term (current) drug therapy; Z71.6 Tobacco abuse counseling; Z86.14 Personal history of Methicillin resistant Staphylococcus aureus infection; Z89.512 Acquired absence of left leg below knee; Z99.3 Dependence on wheelchair; Z86.711 Personal history of pulmonary embolism; Z86.718 Personal history of other venous thrombosis and embolism; Z86.73 Personal history of transient ischemic attack (TIA), and cerebral infarction without residual deficits; Z95.828 Presence of other vascular implants and grafts; Z96.642 Presence of left artificial hip joint; Z87.01 Personal history of pneumonia (recurrent); Z82.49 Family history of ischemic heart disease and other diseases of the circulatory system; Z83.3 Family history of diabetes mellitus; Z84.1 Family history of disorders of kidney and ureter
CPT/HCPCS: 96366 ×4; 96376 ×2; 96361; 96365; 96367; 96375; 99285; 36415; 94760; 93005; 83880; 80053 ×2; 82565 ×2; 83605; 83735 ×2; 84100; 84484; 85025 ×2; 80202; 85610 ×4; 85730; 81001; 87040; 83036; 73590; 71045; G0378 ×2; S4990 ×4; J3370 ×4; J2060 ×2; J1200 ×2; J0696; J3475; 96374

== ENCOUNTER 2021-11-13 20:53 | Observation (INO) | payer MEDICARE ==
[2021-11-14] MEDS ORDERED: VANCOMYCIN IV PER PHARMACY 1 EACH MISC MISCELLANE PRN (02:38)
[2021-11-14] MEDS ORDERED: ONDANSETRON 4 MG/2 ML VIAL IVP STA (02:38)
[2021-11-14] MEDS ORDERED: MORPHINE SULFATE 4 MG/ML SYRINGE IV STA (02:38)
--- NOTE | 2021-11-14 02:40 | ED ---
Skin/Abscess/FB HPI - General Chief complaint: Skin/Abscess/Foreign Body Stated complaint: Leg infection, Tremors, Cough Time Seen by Provider: 11/14/21 02:27 Source: patient, RN notes reviewed, old records reviewed Mode of arrival: ambulatory Limitations: no limitations - History of Present Illness Initial comments: This is a 66-year-old male to the emergency department for evaluation. Patient states today for evaluation regards to significant amount of pain swelling and drainage and right leg pain swelling and drainage. Patient has no trauma, hi story of cellulitis and infection. Patient states this drainage is foul smelling. Patient has again no travel history no sick contacts no fevers she does admit to cough MD complaint: rash, abscess/boil, other (Right leg ulcers with drainage) -: days(s) Tetanus Up to Date: yes Location: RLE Severity: moderate Severity scale (1-10): 6 Quality: burning Consistency: constant Improves with: none Worsens with: none Context: recent illness Associated symptoms: chills, rigors, itching, nausea, cough Treatments Prior to Arrival: bandages - Related Data Home Medications Medication Instructions Recorded Confirmed Atorvastatin [Lipitor] 80 mg PO HS 01/09/14 09/05/21 Topiramate [Topamax] 25 mg PO BID 01/09/14 09/05/21 Nortriptyline [Pamelor] 50 mg PO HS 08/15/19 09/05/21 Omeprazole [PriLOSEC] 20 mg PO BID 08/15/19 09/05/21 Loratadine 10 mg PO HS 10/30/19 09/05/21 Metoprolol Succinate (ER) [Toprol 50 mg PO DAILY 02/29/20 09/05/21 XL] Docusate [Colace] 100 mg PO HS 05/19/20 09/05/21 Multivitamins, Thera [Multivitamin 1 tab PO DAILY 10/16/20 09/05/21 (formulary)] Amiodarone [Cordarone] 200 mg PO BID 06/02/21 09/05/21 Celecoxib [CeleBREX] 200 mg PO DAILY 06/02/21 09/05/21 Pioglitazone [Actos] 30 mg PO DAILY 06/02/21 09/05/21 Potassium Chloride [Klor-Con 10 ER] 10 meq PO DAILY 06/02/21 09/05/21 Warfarin [Coumadin] 3 mg PO HS 06/02/21 09/05/21 lisinopriL [Prinivil] 20 mg PO HS 06/02/21 09/05/21 metFORMIN HCL 500 mg PO BID 06/02/21 09/05/21 Aspirin EC [Ecotrin Low Dose] 81 mg PO DAILY 09/05/21 09/05/21 DULoxetine HCL [Cymbalta] 30 mg PO DAILY 09/07/21 09/07/21 Glimepiride [Amaryl] 4 mg PO AC-BRKFST 09/07/21 09/07/21 Pregabalin [Lyrica] 300 mg PO BID 09/07/21 09/07/21 oxyCODONE-APAP 10-325MG [Percocet 1 tab PO Q4H PRN 09/07/21 09/07/21 10-325 mg] Previous Rx's Medication Instructions Recorded Furosemide [Lasix] 40 mg PO DAILY #30 tablet 12/29/20 Doxycycline [Vibramycin] 100 mg PO BID 10 Days #10 capsule 09/07/21 Nicotine 14Mg/24Hr Patch [Habitrol] 1 patch TRANSDERM DAILY #7 patch 09/07/21 Insulin Glargine,Hum.rec.anlog 15 units SQ HS #5 each 09/08/21 [Semglee Pen] Allergies Allergy/AdvReac Type Severity Reaction Status Date / Time baclofen Allergy Unknown Verified 11/13/21 21:05 Review of Systems ROS Statement: Those systems with pertinent positive or pertinent negative responses have been documented in the HPI. ROS Other: All systems not noted in ROS Statement are negative. Past Medical History Past Medical History: Atrial Fibrillation, Asthma, COPD, CVA/TIA, Diabetes Mellitus, Deep Vein Thrombosis (DVT), GERD/Reflux, Hyperlipidemia, Hypertension, Neurologic Disorder, Osteoarthritis (OA), Pneumonia, Pulmonary Embolus (PE), Skin Disorder, Vascular Disorder Additional Past Medical History / Comment(s): Pt admitted to [facility] on 11/20/20 with hyperkalemia, hyperglycemia, uncontrolled diabetes. Other hx: Lupus anticoagulant, DVTs bilateral legs, PEs bilateral lungs, pt has zina filter, L AKA/wheelchair bound, NIDDM type II, neuropathy bilateral hands, wound care patient for buttock wound, now healed, TIAs, pneumothorax, past migraines, chronic low back pain, R leg edema at times, varicosities. History of Any Multi-Drug Resistant Organisms: MRSA Date of last positivie culture/infection: 06/04/21 MDRO Source:: Right Leg MRSA Past Surgical History: Adenoidectomy, Appendectomy, Tonsillectomy Additional Past Surgical History / Comment(s): 1980s Zina filter, stents in vessels "in pelvic area", total L hip arthroplasty, vein strippings, colonoscopy. left leg amputation Past Anesthesia/Blood Transfusion Reactions: No Reported Reaction Additional Past Anesthesia/Blood Transfusion Reaction / Comment(s): Pt has received blood in past without reaction. Past Psychological History: No Psychological Hx Reported Smoking Status: Current every day smoker Past Alcohol Use History: None Reported Past Drug Use History: Marijuana - Past Family History Mother Family Medical History: Coronary Artery Disease (CAD), Myocardial Infarction (MD), Vascular Disorder Additional Family Medical History / Comment(s): heart disease, peripheral vascular disease. Father Family Medical History: Diabetes Mellitus, Renal Disease General Exam Limitations: no limitations General appearance: alert, in no apparent distress Head exam: Present: atraumatic, normocephalic, normal inspection Eye exam: Present: normal appearance, PERRL, EOMI. Absent: scleral icterus, conjunctival injection, periorbital swelling ENT exam: Present: normal exam, mucous membranes moist Neck exam: Present: normal inspection. Absent: tenderness, meningismus, lymphadenopathy Respiratory exam: Present: normal lung sounds bilaterally. Absent: respiratory distress, wheezes, rales, rhonchi, stridor Cardiovascular Exam: Present: regular rate, normal rhythm, normal heart sounds. Absent: systolic murmur, diastolic murmur, rubs, gallop, clicks GI/Abdominal exam: Present: soft, normal bowel sounds. Absent: distended, tenderness, guarding, rebound, rigid Extremities exam: Present: tenderness, normal capillary refill, other (Patient does have multiple ulcers right leg with drainage). Absent: pedal edema, joint swelling, calf tenderness Back exam: Present: normal inspection Neurological exam: Present: alert, oriented X3, CN II-XII intact Psychiatric exam: Present: normal affect, normal mood Skin exam: Present: warm, dry, intact, normal color. Absent: rash Course Vital Signs 11/13/21 21:03 Temperature 98.2 F Pulse Rate 67 Respiratory 18 Rate Blood Pressure 92/55 O2 Sat by Pulse 95 Oximetry - Reevaluation(s) Reevaluation #1: 11/14/21 03:10 Medical record is reviewed Reevaluation #2: 11/14/21 03:10 Patient feeling improved here in the ER Reevaluation #3: 11/14/21 03:10 Patient informed results and questions answered - Consultations Consultation #1: Spoke with sound who agrees to admit this patient Medical Decision Making - Medical Decision Making 66 male DF for evaluation. Patient presents today for evaluation regards to significant ulcers of the right lower extremity with drainage. Surrounding cellulitis patient be admitted for IV antibiotics concern for sepsis - EKG Data -: EKG Interpreted by Me (EKG shows undetermined rhythm of 68 QRS 121 QTC 439) Disposition Clinical Impression: Cellulitis of right lower extremity, Hyperglycemia, Diabetic foot ulcer Disposition: ADMITTED IP TO THIS HOSP Condition: Fair Is patient prescribed a controlled substance at d/c from ED?: No Referrals: Kristin Emery DO [Primary Care Provider] - 1-2 days
[2021-11-14] MEDS ORDERED: VANCOMYCIN 1,750 MG in SODIUM CHLORIDE 0.9% 500 ML 500 ML IVPB ONE (02:45)
[2021-11-14] MEDS ORDERED: NALOXONE 0.4 MG/ML 1 ML VIAL IV PRN (03:07)
[2021-11-14] MEDS ORDERED: MORPHINE SULFATE 4 MG/ML SYRINGE IV PRN (03:07)
[2021-11-14] MEDS ORDERED: ONDANSETRON 4 MG/2 ML VIAL IVP PRN (03:07)
[2021-11-14] MEDS: SODIUM CHLORIDE 0.9% 1,000 ML IV STA ×2 (03:24)
[2021-11-14] MEDS: SODIUM CHLORIDE 0.9% 1,000 ML IV SCH ×2 (03:25→11:13)
[2021-11-14 03:39] LABS: Albumin 3.6 g/dL (3.5-5.0); Calcium 7.8 mg/dL (8.4-10.2); Magnesium 2.1 mg/dL (1.6-2.3); Phosphorus 3.5 mg/dL (2.5-4.5); Potassium 4.9 mmol/L (3.5-5.1); Total Bilirubin 0.4 mg/dL (0.2-1.3); Total Protein 7.2 g/dL (6.3-8.2)
[2021-11-14 03:50] LABS: Partial Thromboplastin Time 28.7 sec (22.0-30.0); Prothrombin Time 11.3 sec (9.0-12.0)
[2021-11-14 03:55] LABS: Anisocytosis Slight; Basophils # (A) 0.1 k/uL (0-0.2); Basophils % (A) 1 %; Eosinophils # (A) 0.1 k/uL (0-0.7); Eosinophils % (A) 1 %; HCT 37.1 % (39.0-53.0); HGB 11.5 gm/dL (13.0-17.5); Hypochromasia Marked; Lymphocytes % (A) 13 %; MCH 25.9 pg (25.0-35.0); MCHC 30.9 g/dL (31.0-37.0); MCV 83.7 fL (80.0-100.0); Mean Platelet Volume 8.3; Microcytosis Slight; Monocytes # (A) 0.5 k/uL (0-1.0); Monocytes % (A) 7 %; Neutrophils # (A) 5.6 k/uL (1.3-7.7); Neutrophils % (A) 76 %; Platelet Count 264 k/uL (150-450); Poikilocytosis Slight; RBC 4.43 m/uL (4.30-5.90); RDW 19.8 % (11.5-15.5); WBC 7.4 k/uL (3.8-10.6)
--- NOTE | 2021-11-14 04:49 | P.HPIM ---
History of Present Illness H&P Date: 11/14/21 Patient is a 66-year-old male with a PMH of type II DM, left BKA, A. fib on Coumadin, history of DVT and PE, chronic CHF, hyperlipidemia hypertension, COPD, who presents to the emergency room with complaints of right leg pain and swelling. Patient reports that over the past 3-4 days, he has noted gradually worsening redness and pain with oozing ulcers of the right leg. Patient reports experiencing fevers earlier tonight. The patient does have a history of MRSA cellulitis in the past. Denied experiencing chest discomfort, shortness of breath, nausea, vomiting, abdominal pain, diarrhea, urinary complaints. EKG emergency room revealed sinus rhythm at 68 bpm with poor R-wave progression, in ferior lead Q waves, and diffuse T-wave flattening. Laboratory evaluation was remarkable for hemoglobin of 11.5, troponin 0.038, BUN 24, creatinine 1.59, and T-max 100.2F with SpO2 94% on room air. Review of systems: Pertinent positives and negatives as discussed in HPI, a complete review of syst ems was performed and all other systems are negative. Physical examination: General: non toxic, no distress, appears at stated age, morbidly obese Derm: Right lower extremity mild diffuse erythema with multiple shallow ulcers draining clear fluid with no unusual ecchymoses, warm, dry Head: atraumatic, normocephalic, symmetric Eyes: EOMI, no lid lag, anicteric sclera, pupils equal round reactive to light ENT: Nose and ears atraumatic, no thrush, no pharyngeal erythema Neck: No thyromegaly, no cervical lymphadenopathy, trachea midline, supple Mouth: no lip lesion, mucus membranes moist Cardiovascular: S1S2 reg, no murmur, positive posterior tibial pulse bilateral, trace RLE edema, capillary refill less than 2 seconds Lungs: CTA bilateral, no rhonchi, no rales , no accessory muscle use Abdominal: soft, nontender to palpation, no guarding, no appreciable organomegaly, normal bowel sounds Ext: no gross muscle atrophy, left BKA, no contractures, Neuro: CN II-XI grossly intact, light touch intact all 4 extremities, finger to nose within normal limits, Psych: Alert, oriented, appropriate affect Assessment/plan Right lower extremity cellulitis -Continue with ceftriaxone and vancomycin -Follow up cultures -Wound care consult Troponin elevation -Patient denied chest discomfort or shortness of breath -Likely secondary to demand ischemia with ongoing illness -Cardiac monitoring -Trend troponin ANDERSON on chronic kidney disease -IV fluids -Monitor BMP Chronic conditions: Diabetes, hypertension, lipidemia, A. fib, history of DVT, CHF, COPD -Continue with home meds -Insulin sliding scale and blood glucose monitoring -Check A1c DVT prophylaxis -Coumadin The patient is admitted with an anticipated less than 2 midnight stay for evaluation of cellulitis CODE STATUS: Full Code Discussed with: Patient Anticipated discharge date: 11/[address]: Home Past Medical History Past Medical History: Atrial Fibrillation, Asthma, COPD, CVA/TIA, Diabetes Mellitus, Deep Vein Thrombosis (DVT), GERD/Reflux, Hyperlipidemia, Hypertension, Neurologic Disorder, Osteoarthritis (OA), Pneumonia, Pulmonary Embolus (PE), Skin Disorder, Vascular Disorder Additional Past Medical History / Comment(s): Pt admitted to [facility] on 11/20/20 with hyperkalemia, hyperglycemia, uncontrolled diabetes. Other hx: Lupus anticoagulant, DVTs bilateral legs, PEs bilateral lungs, pt has zina filter, L AKA/wheelchair bound, NIDDM type II, neuropathy bilateral hands, wound care patient for buttock wound, now healed, TIAs, pneumothorax, past migraines, chronic low back pain, R leg edema at times, varicosities. History of Any Multi-Drug Resistant Organisms: MRSA Date of last positivie culture/infection: 06/04/21 MDRO Source:: Right Leg MRSA Past Surgical History: Adenoidectomy, Appendectomy, Tonsillectomy Additional Past Surgical History / Comment(s): 1980s [place] filter, stents in vessels "in pelvic area", total L hip arthroplasty, vein strippings, colonoscopy. left leg amputation Past Anesthesia/Blood Transfusion Reactions: No Reported Reaction Additional Past Anesthesia/Blood Transfusion Reaction / Comment(s): Pt has received blood in past without reaction. Past Psychological History: No Psychological Hx Reported Smoking Status: Current every day smoker Past Alcohol Use History: None Reported Past Drug Use History: Marijuana - Past Family History Mother Family Medical History: Coronary Artery Disease (CAD), Myocardial Infarction ([place]), Vascular Disorder Additional Family Medical History / Comment(s): heart disease, peripheral vascular disease. Father Family Medical History: Diabetes Mellitus, Renal Disease Medications and Allergies Home Medications Medication Instructions Recorded Confirmed Type Atorvastatin [Lipitor] 80 mg PO HS 01/09/14 09/05/21 History Topiramate [Topamax] 25 mg PO BID 01/09/14 09/05/21 History Nortriptyline [Pamelor] 50 mg PO HS 08/15/19 09/05/21 History Omeprazole [PriLOSEC] 20 mg PO BID 08/15/19 09/05/21 History Loratadine 10 mg PO HS 10/30/19 09/05/21 History Metoprolol Succinate (ER) [Toprol 50 mg PO DAILY 02/29/20 09/05/21 History XL] Docusate [Colace] 100 mg PO HS 05/19/20 09/05/21 History Multivitamins, Thera [Multivitamin 1 tab PO DAILY 10/16/20 09/05/21 History (formulary)] Furosemide [Lasix] 40 mg PO DAILY #30 tablet 12/29/20 09/05/21 Rx Amiodarone [Cordarone] 200 mg PO BID 06/02/21 09/05/21 History Celecoxib [CeleBREX] 200 mg PO DAILY 06/02/21 09/05/21 History Pioglitazone [Actos] 30 mg PO DAILY 06/02/21 09/05/21 History Potassium Chloride [Klor-Con 10 ER] 10 meq PO DAILY 06/02/21 09/05/21 History Warfarin [Coumadin] 3 mg PO HS 06/02/21 09/05/21 History lisinopriL [Prinivil] 20 mg PO HS 06/02/21 09/05/21 History metFORMIN HCL 500 mg PO BID 06/02/21 09/05/21 History Aspirin EC [Ecotrin Low Dose] 81 mg PO DAILY 09/05/21 09/05/21 History DULoxetine HCL [Cymbalta] 30 mg PO DAILY 09/07/21 09/07/21 History Doxycycline [Vibramycin] 100 mg PO BID 10 Days #10 capsule 09/07/21 Rx Glimepiride [Amaryl] 4 mg PO AC-BRKFST 09/07/21 09/07/21 History Nicotine 14Mg/24Hr Patch [Habitrol] 1 patch TRANSDERM DAILY #7 patch 09/07/21 Rx Pregabalin [Lyrica] 300 mg PO BID 09/07/21 09/07/21 History oxyCODONE-APAP 10-325MG [Percocet 1 tab PO Q4H PRN 09/07/21 09/07/21 History 10-325 mg] Insulin Glargine,Hum.rec.anlog 15 units SQ HS #5 each 09/08/21 Rx [Semglee Pen] Allergies Allergy/AdvReac Type Severity Reaction Status Date / Time baclofen Allergy Unknown Verified 11/13/21 21:05 Physical Exam Vitals: Vital Signs Temp Pulse Resp BP Pulse Ox 11/14/21 04:26 99.1 F 65 20 95/71 92 L 11/14/21 03:10 100.2 F H 68 18 108/72 94 L 11/13/21 21:03 98.2 F 67 18 92/55 95 Intake and Output 11/13/21 11/13/21 11/14/21 14:59 22:59 06:59 Other: Weight 117.934 kg Results CBC & Chem 7: 11/14/21 02:50 11/14/21 02:50 Labs: Abnormal Lab Results - Last 24 Hours (Table) 11/14/21 11/14/21 11/14/21 Range/Units 02:50 02:50 02:50 Hgb 11.5 L (13.0-17.5) gm/dL Hct 37.1 L (39.0-53.0) % MCHC 30.9 L (31.0-37.0) g/dL RDW 19.8 H (11.5-15.5) % BUN 24 H (9-20) mg/dL Creatinine 1.59 H (0.66-1.25) mg/dL Calcium 7.8 L (8.4-10.2) mg/dL Troponin I 0.038 H* (0.000-0.034) ng/mL
[2021-11-14 05:22] LABS: Glucose,Whole Blood 94 mg/dL (75-99)
[2021-11-14 05:22] LABS: Glucose,Whole Blood 104 mg/dL (75-99)
[2021-11-14] MEDS: INSULIN ASPART (NovoLOG) 100 UNIT/ML VIAL SQ SCH ×4 (05:55→20:33)
[2021-11-14] MEDS ORDERED: AMIODARONE 200 MG TAB PO SCH (10:45)
[2021-11-14] MEDS: METOPROLOL SUCCINATE (ER) 50 MG TAB.ER.24H PO SCH ×2 (11:09→11:13)
[2021-11-14] MEDS: lisinopriL 20 MG TAB PO SCH ×2 (11:09→11:13)
[2021-11-14] MEDS: ASPIRIN 81 MG PO SCH (11:09)
[2021-11-14] MEDS: FUROSEMIDE 40 MG TAB PO SCH (11:09)
[2021-11-14 11:59] LABS: Appearance,Urine Clear (Clear); Bilirubin,Urine Negative (Negative); Blood,Urine Negative (Negative); Color,Urine Yellow; Glucose,Urine (UA) Negative (Negative); Hyaline Casts,Urine 12 /lpf (0-2); Ketones,Urine Negative (Negative); Leukocyte Esterase,Urine Small (Negative); Mucus,Urine Rare /hpf; Nitrite,Urine Negative (Negative); PH, Urine 5.5 (5.0-8.0); Protein,Urine 1+ (Negative); RBC,Urine 1 /hpf (0-5); Specific Gravity,Urine 1.023 (1.001-1.035); Squamous Epithelial Cell,Urine 1 /hpf (0-4); Urobilinogen,Urine <2.0 mg/dL (<2.0); WBC,Urine 1 /hpf (0-5)
[2021-11-14 12:30] LABS: Glucose,Whole Blood 137 mg/dL (75-99)
[2021-11-14] MEDS: oxyCODONE-APAP 10-325MG 1 EACH TAB PO PRN ×2 (12:47→20:39)
--- NOTE | 2021-11-14 14:11 | P.PN ---
Subjective Progress Note Date: 11/14/21 Principal diagnosis: Cellulitis, elevated troponin Patient was seen and examined. No acute events overnight. Currently on 3 L nasal cannula. He reports cough productive of sputum which he can't describe. He reports chest pain only when he coughs. Continues to report pain in his right lower extremity along with swelling and redness. Objective - Vital Signs Vital signs: Vital Signs Temp 97.9 F 11/14/21 11:48 Pulse 60 11/14/21 13:15 Resp 18 11/14/21 13:15 BP 107/63 11/14/21 13:15 Pulse Ox 94 L 11/14/21 13:15 Intake & Output 11/13/21 11/14/21 11/14/21 18:59 06:59 18:59 Intake Total 130 Balance 130 Weight 117.934 kg Intake: Intake, IV Titration 130 Amount Sodium Chloride 0.9% 1, 130 000 ml @ 130 mls/hr IV . Q7H42M [facility] Rx#:[id number] Other: Voiding Method Urinal Urinal - Exam General: non toxic, no distress, appears at stated age, morbidly obese Derm: Right lower extremity mild diffuse erythema with multiple shallow ulcers draining clear fluid Head: atraumatic, normocephalic, symmetric Eyes: EOMI, no lid lag, anicteric sclera, pupils equal round reactive to light ENT: Nose and ears atraumatic, no thrush, no pharyngeal erythema Neck: No thyromegaly, no cervical lymphadenopathy, trachea midline, supple Mouth: no lip lesion, mucus membranes moist Cardiovascular: S1S2 reg, no murmur, trace RLE edema, capillary refill less than 2 seconds Lungs: CTA bilateral, no rhonchi, no rales , no accessory muscle use Ext: no gross muscle atrophy, left BKA, no contractures, Psych: Alert, oriented, appropriate affect - Labs CBC & Chem 7: 11/14/21 02:50 11/14/21 02:50 Labs: Abnormal Lab Results - Last 24 Hours (Table) 11/14/21 11/14/21 11/14/21 Range/Units 02:38 02:50 02:50 Hgb 11.5 L (13.0-17.5) gm/dL Hct 37.1 L (39.0-53.0) % MCHC 30.9 L (31.0-37.0) g/dL RDW 19.8 H (11.5-15.5) % BUN 24 H (9-20) mg/dL Creatinine 1.59 H (0.66-1.25) mg/dL POC Glucose (mg/dL) (75-99) mg/dL Hemoglobin A1c (0.0-6.0) % Calcium 7.8 L (8.4-10.2) mg/dL Troponin I (0.000-0.034) ng/mL Urine Protein 1+ H (Negative) Ur Leukocyte Esterase Small H (Negative) Hyaline Casts 12 H (0-2) /lpf Urine Mucus Rare H (None) /hpf 11/14/21 11/14/21 11/14/21 Range/Units 02:50 05:17 06:59 Hgb (13.0-17.5) gm/dL Hct (39.0-53.0) % MCHC (31.0-37.0) g/dL RDW (11.5-15.5) % BUN (9-20) mg/dL Creatinine (0.66-1.25) mg/dL POC Glucose (mg/dL) 104 H (75-99) mg/dL Hemoglobin A1c 9.0 H (0.0-6.0) % Calcium (8.4-10.2) mg/dL Troponin I 0.038 H* (0.000-0.034) ng/mL Urine Protein (Negative) Ur Leukocyte Esterase (Negative) Hyaline Casts (0-2) /lpf Urine Mucus (None) /hpf 11/14/21 Range/Units 12:29 Hgb (13.0-17.5) gm/dL Hct (39.0-53.0) % MCHC (31.0-37.0) g/dL RDW (11.5-15.5) % BUN (9-20) mg/dL Creatinine (0.66-1.25) mg/dL POC Glucose (mg/dL) 137 H (75-99) mg/dL Hemoglobin A1c (0.0-6.0) % Calcium (8.4-10.2) mg/dL Troponin I (0.000-0.034) ng/mL Urine Protein (Negative) Ur Leukocyte Esterase (Negative) Hyaline Casts (0-2) /lpf Urine Mucus (None) /hpf Assessment and Plan Assessment: #Right lower extremity cellulitis #Troponin elevation #Chronic respiratory failure on 3 L nasal cannula #Possible diastolic CHF exacerbation #Acute kidney injury on chronic kidney disease Chronic conditions: Diabetes, hypertension, lipidemia, A. fib, history of DVT, COPD Patient presents with right lower extremity cellulitis. He has been started on vancomycin and Rocephin. Telemetry monitoring as ordered. Percocet as needed for pain. Blood culture ordered. Troponins are downtrending. Likely demand ischemia from infectious source. Troponin will be repeated tomorrow morning. Echocardiogram has been ordered. Cardiology has been consulted for further management of this patient. Patient currently on 3 L nasal cannula. He reports baseline of 4 L nasal cannula at home. In light of elevated BNP and minimal right lower extremity swelling, chest x-ray will be ordered. Most recent Echocardiogram in 2019 shows EF 55-60% with borderline concentric LVH. Continue Lasix by mouth. Echocardiogram will be followed as above. IVF will be discontinued and patient will be encourage hydration by mouth. Repeat BMP will be ordered for tomorrow morning. Continue Coumadin with regard to anticoagulation to maintain INR between 2-3. Low dose insulin sliding scale along with accuchecks four times a day with hypog lycemic precautions. Restart Lisinopril and Metoprolol with regard to hypertension. Continue Amiodarone for history of atrial fibrillation. DVT prophylaxis: [Coumadin] Discussed with: [Patient] Anticipated discharge: [1-2 days] Anticipated discharge place: [Home] A total of [45] minutes was spent on the care of this complex patient more than 50% of the time was spent in counseling and care coordination. Patient is pending clinical improvement with regard to his cellulitis. Echocardiogram ordered and Cardiology consulted for elevated Troponins. Chest X ray ordered for cough and shortness of breath. Anticipate DC home in 1-2 days if he continues to show clinical improvement.
[2021-11-14] MEDS: VANCOMYCIN 2,000 MG in SODIUM CHLORIDE 0.9% 500 ML 500 ML IVPB SCH (14:32)
--- NOTE | 2021-11-14 15:59 | XR ---
EXAMINATION TYPE: XR chest 1V portable DATE OF EXAM: 11/14/2021 COMPARISON: 09/05/2021 HISTORY: Short of breath TECHNIQUE: Lateral view FINDINGS: Heart is enlarged. There is coarse interstitial density in the lungs. There are chest leads . Costophrenic angles are clear. No obvious heart failure. There are chest leads. IMPRESSION: Coarse interstitial density consistent with interstitial fibrosis and no significant otero ge compared to last exam. No definite acute lung disease.
[2021-11-14 17:25] LABS: Glucose,Whole Blood 176 mg/dL (75-99)
[2021-11-14 19:56] LABS: Glucose,Whole Blood 211 mg/dL (75-99)
[2021-11-14] MEDS ORDERED: VANCOMYCIN 1,750 MG in SODIUM CHLORIDE 0.9% 500 ML 500 ML IVPB SCH (20:00)
[2021-11-14] MEDS: TOPIRAMATE 25 MG TAB PO SCH (20:32)
[2021-11-14] MEDS: PANTOPRAZOLE 40 MG TABLET PO SCH (20:33)
[2021-11-14] MEDS ORDERED: ATORVASTATIN 80 MG TAB PO SCH (21:00)
[2021-11-14] MEDS ORDERED: NORTRIPTYLINE 25 MG CAP PO SCH (21:00)
[2021-11-14] MEDS ORDERED: LORATADINE 10 MG TAB PO SCH (21:00)
[2021-11-14] MEDS ORDERED: WARFARIN 3 MG TAB PO SCH (21:00)
[2021-11-15 04:29] VITALS: TEMP 98.1
[2021-11-15] MEDS: oxyCODONE-APAP 10-325MG 1 EACH TAB PO PRN (05:56)
[2021-11-15] MEDS: VANCOMYCIN 2,000 MG in SODIUM CHLORIDE 0.9% 500 ML 500 ML IVPB SCH (05:57)
[2021-11-15 06:36] LABS: INR 1.2 (<1.2); Prothrombin Time 12.4 sec (9.0-12.0)
[2021-11-15 07:21] LABS: Glucose,Whole Blood 129 mg/dL (75-99)
[2021-11-15] MEDS: INSULIN ASPART (NovoLOG) 100 UNIT/ML VIAL SQ SCH ×2 (07:40→12:45)
[2021-11-15] MEDS: METOPROLOL SUCCINATE (ER) 50 MG TAB.ER.24H PO SCH (08:54)
[2021-11-15] MEDS: PANTOPRAZOLE 40 MG TABLET PO SCH (08:54)
[2021-11-15] MEDS: ASPIRIN 81 MG PO SCH (08:54)
[2021-11-15] MEDS: FUROSEMIDE 40 MG TAB PO SCH (08:54)
[2021-11-15] MEDS: TOPIRAMATE 25 MG TAB PO SCH (08:55)
[2021-11-15] MEDS ORDERED: AMIODARONE 100 MG TAB PO SCH (09:00)
[2021-11-15] MEDS ORDERED: lisinopriL 10 MG TAB PO SCH (09:00)
[2021-11-15 09:24] LABS: ALT 39 U/L (10-49); AST 40 U/L (14-35); African American GFR (CKD) 61.1 (60.0-200.0); Albumin/Globulin Ratio 1.15 (1.60-3.17); Alkaline Phosphatase 78 U/L (41-126); Blood Urea Nitrogen 20.3 mg/dL (9.0-27.0); Calcium 7.4 mg/dL (8.7-10.3); Carbon Dioxide 21.6 mmol/L (20.0-27.5); Chloride 105 mmol/L (96-109); Globulin 2.6 g/dL (1.6-3.3); Glucose 121 mg/dL (70-110); Non-African American GFR(CKD) 52.7 (60.0-200.0); Potassium 4.8 mmol/L (3.5-5.5); Sodium 137 mmol/L (135-145); Total Bilirubin <0.15 mg/dL (0.30-1.20); Total Protein 5.6 g/dL (6.2-8.2)
[2021-11-15 09:34] LABS: Basophils # (A) 0.02 X 10*3/uL (0.00-0.10); Basophils % (A) 0.4 %; Eosinophils # (A) 0.13 X 10*3/uL (0.04-0.35); Eosinophils % (A) 2.6 %; HCT 32.7 % (39.6-50.0); HGB 9.6 g/dL (13.0-17.0); Immature Grans, Automated 0.4 %; Lymphocytes # (A) 0.96 X 10*3/uL (0.90-5.00); Lymphocytes % (A) 19.5 %; MCH 24.9 pg (27.0-32.0); MCHC 29.4 g/dL (32.0-37.0); MCV 84.9 fL (80.0-97.0); Mean Platelet Volume 11.2 fL (9.5-12.2); Monocytes # (A) 0.55 X 10*3/uL (0.20-1.00); Monocytes % (A) 11.2 %; NRBC Per 100 WBC 0 /100 WBCS (0.0-0.0); Neutrophils # (A) 3.25 X 10*3/uL (1.80-7.70); Neutrophils % (A) 65.9 %; Platelet Count 196 X 10*3/uL (140-440); RBC 3.85 X 10*6/uL (4.40-5.60); RDW 21.2 % (11.5-14.5); WBC 4.93 X 10*3/uL (4.50-10.00)
--- NOTE | 2021-11-15 09:36 | P.CRDCN ---
History of Present Illness Consult date: 11/15/21 History of present illness: HISTORY OF PRESENT ILLNESS: This is a 66-year-old male with a past medical history significant for COPD, hypertension, diabetes, hyperlipidemia, recurrent DVTs, and paroxysmal atrial fibrillation. Patient follows in the office with Dr. Heaton. We have been asked to see the patient in consultation for elevated troponin. Patient examined at the bedside. Patient is admitted to the hospital secondary to right lower ext remity cellulitis. Troponins were obtained which resulted at 0.038 and 0.024. The patient denies having any chest pain or pressure. He denies any shortness of breath. He is receiving IV antibiotics for his cellulitis. Vital signs are stable. Patient's blood pressures are running on the lower side with a systolic [place] [address]. * EKG reveals sinus mechanism with no signs of acute ischemia * Chest xray coarse interstitial density consistent with interstitial fibrosis and no significant change compared to exam. No definite acute lung disease * Laboratory data: WBC 7.4. Hemoglobin 11.5. Platelet count 264. Sodium 137. Potassium 4.8. BUN 20. Creatinine 1.4. * Current home cardiac medications include lisinopril 20 mg daily, Coumadin 3 mg at night, metoprolol succinate 50 mg daily, Lasix 40 g daily, Lipitor 80 mg at night, aspirin 81 mg daily, and amiodarone 200 mg daily * Most recent echocardiogram obtained in May 2021 revealed ejection fraction 50-55% * Patient underwent Lexiscan stress test in 2013 which was negative for ischemia REVIEW OF SYSTEMS: At the time of my exam: CONSTITUTIONAL: Denies fever or chills. HEENT: Denies blurred vision, vision changes, or eye pain. Denies hemoptysis CARDIOVASCULAR: Denies chest pain. Denies orthopnea. Denies PND. Denies palpitations RESPIRATORY: Denies shortness of breath. GASTROINTESTINAL: Denies abdominal pain. Denies nausea or vomiting. HEMATOLOGIC: Denies bleeding disorders. GENITOURINARY: Denies any blood in urine. SKIN: Denies pruitis. Denies rash. PHYSICAL EXAM: VITAL SIGNS: Reviewed. GENERAL: Well-developed in no acute distress. HEENT: Head is normocephalic. Pupils are equal, round. Sclerae anicteric. Mucous membranes of the mouth are moist. Neck supple. No JVD or thyromegaly LUNGS: Respirations even and unlabored. Lungs essentially clear to auscultation bilaterally. HEART: Regular rate and rhythm. S1 and S2 heard. ABDOMEN: Soft. Nondistended. Nontender. EXTREMITIES: Normal range of motion. No clubbing or cyanosis. Peripheral pulses intact. Left BKA. Trace right lower extremity edema. NEUROLOGIC: Awake and alert. Oriented x 3. ASSESSMENT: Right lower extremity cellulitis Abnormal troponin, likely secondary to above, no evidence of acute coronary syndrome Acute kidney injury Hypertension Hyperlipidemia Diabetes Recurrent DVT Paroxysmal atrial fibrillation COPD PLAN: Acute coronary event has been ruled out Obtain 2-D echo to assess cardiac structure and function Decrease amiodarone to 100 mg daily Decrease lisinopril to 10 mg daily as blood pressures are running on the lower side Further recommendations pending patient's course Nurse practitioner note has been reviewed by physician. Signing provider agrees with the documented findings, assessment, and plan of care. Past Medical History Past Medical History: Atrial Fibrillation, Asthma, COPD, CVA/TIA, Diabetes Mellitus, Deep Vein Thrombosis (DVT), GERD/Reflux, Hyperlipidemia, Hypertension, Neurologic Disorder, Osteoarthritis (OA), Pneumonia, Pulmonary Embolus (PE), Skin Disorder, Vascular Disorder Additional Past Medical History / Comment(s): Pt admitted to [facility] on 11/20/20 with hyperkalemia, hyperglycemia, uncontrolled diabetes. Other hx: Lupus anticoagulant, DVTs bilateral legs, PEs bilateral lungs, pt has isabell f ilter, L AKA/wheelchair bound, NIDDM type II, neuropathy bilateral hands, wound care patient for buttock wound, now healed, TIAs, pneumothorax, past migraines, chronic low back pain, R leg edema at times, varicosities. History of Any Multi-Drug Resistant Organisms: MRSA Date of last positivie culture/infection: 06/04/21 MDRO Source:: Right Leg MRSA Past Surgical History: Adenoidectomy, Appendectomy, Tonsillectomy Additional Past Surgical History / Comment(s): 1980s Isabell filter, stents in vessels "in pelvic area", total L hip arthroplasty, vein strippings, colonos copy. left leg amputation Past Anesthesia/Blood Transfusion Reactions: No Reported Reaction Additional Past Anesthesia/Blood Transfusion Reaction / Comment(s): Pt has received blood in past without reaction. Past Psychological History: No Psychological Hx Reported Additional Psychological History / Comment(s): Pt currently living with his albina. He has a home care nurse thru [facility] pt states for wound care. He has a glucometer. He has a nebulizer but it is in his own home. Pt states he no ace lyric drives and that getting to appts will be difficult for him. Smoking Status: Current every day smoker Past Alcohol Use History: None Reported Additional Past Alcohol Use History / Comment(s): Pt startes smoking in 1969 and is a ppd smoker. Past Drug Use History: Marijuana - Past Family History Mother Family Medical History: Coronary Artery Disease (CAD), Myocardial Infarction (NH), Vascular Disorder Additional Family Medical History / Comment(s): heart disease, peripheral vascular disease. Father Family Medical History: Diabetes Mellitus, Renal Disease Medications and Allergies Home Medications Medication Instructions Recorded Confirmed Type Atorvastatin [Lipitor] 80 mg PO HS 01/09/14 11/14/21 History Topiramate [Topamax] 25 mg PO BID 01/09/14 11/14/21 History Nortriptyline [Pamelor] 50 mg PO HS 08/15/19 11/14/21 History Omeprazole [PriLOSEC] 20 mg PO BID 08/15/19 11/14/21 History Loratadine 10 mg PO HS 10/30/19 11/14/21 History Metoprolol Succinate (ER) [Toprol 50 mg PO DAILY 02/29/20 11/14/21 History XL] Docusate [Colace] 100 mg PO DAILY 05/19/20 11/14/21 History Multivitamins, Thera [Multivitamin 1 tab PO DAILY 10/16/20 11/14/21 History (formulary)] Furosemide [Lasix] 40 mg PO DAILY #30 tablet 12/29/20 11/14/21 Rx Amiodarone [Cordarone] 200 mg PO DAILY 06/02/21 11/14/21 History Celecoxib [CeleBREX] 200 mg PO DAILY 06/02/21 11/14/21 History Pioglitazone [Actos] 30 mg PO DAILY 06/02/21 11/14/21 History Potassium Chloride [Klor-Con 10 ER] 10 meq PO DAILY 06/02/21 11/14/21 History Warfarin [Coumadin] 3 mg PO HS 06/02/21 11/14/21 History lisinopriL [Prinivil] 20 mg PO DAILY 06/02/21 11/14/21 History metFORMIN HCL 500 mg PO BID 06/02/21 11/14/21 History Aspirin EC [Ecotrin Low Dose] 81 mg PO DAILY 09/05/21 11/14/21 History DULoxetine HCL [Cymbalta] 30 mg PO DAILY 09/07/21 11/14/21 History Glimepiride [Amaryl] 4 mg PO AC-BRKFST 09/07/21 11/14/21 History Pregabalin [Lyrica] 300 mg PO BID 09/07/21 11/14/21 History oxyCODONE-APAP 10-325MG [Percocet 1 tab PO Q6H PRN 09/07/21 11/14/21 History 10-325 mg] Nicotine 14Mg/24Hr Patch [Habitrol] 1 patch TRANSDERM DAILY PRN 11/14/21 11/14/21 History Allergies Allergy/AdvReac Type Severity Reaction Status Date / Time baclofen Allergy Unknown Verified 11/14/21 12:11 Physical Exam Vitals: Vital Signs Temp Pulse Resp BP Pulse Ox 11/15/21 08:52 54 L 101/62 11/15/21 04:27 98.1 F 57 L 18 93/46 96 11/14/21 20:00 99.1 F 59 L 18 107/58 96 11/14/21 19:45 18 11/14/21 15:20 91 L 11/14/21 13:15 60 18 107/63 94 L 11/14/21 11:48 97.9 F 57 L 18 94/51 95 Intake and Output 11/14/21 11/15/21 11/15/21 22:59 06:59 14:59 Intake Total 1150 Balance 1150 Intake: Intake, IV Titration 550 Amount Vancomycin 2,000 mg In 500 Sodium Chloride 0.9% 500 ml 500 ml @ 167 mls/hr IVPB Q16H [facility] Rx#: [id number] cefTRIAXone 1 gm In 50 Sodium Chloride 0.9% 50 ml @ 100 mls/hr IVPB Q12H [facility] Rx#:[id number] Oral 600 Other: Voiding Method Urinal Urinal # Voids 4 # Bowel Movements 1 Results 11/14/21 02:50 11/15/21 05:26 Cardiac Enzymes 11/15/21 Range/Units 05:26 AST 40 H (14-35) U/L Coagulation 11/15/21 Range/Units 05:26 PT 12.4 H (9.0-12.0) sec Comprehensive Metabolic Panel 11/15/21 Range/Units 05:26 Sodium 137 (135-145) mmol/L Potassium 4.8 (3.5-5.5) mmol/L Chloride 105 (96-109) mmol/L Carbon Dioxide 21.6 (20.0-27.5) mmol/L BUN 20.3 (9.0-27.0) mg/dL Creatinine 1.4 (0.6-1.5) mg/dL Glucose 121 H (70-110) mg/dL Calcium 7.4 L (8.7-10.3) mg/dL AST 40 H (14-35) U/L ALT 39 (10-49) U/L Alkaline Phosphatase 78 (41-126) U/L Total Protein 5.6 L (6.2-8.2) g/dL Albumin 3.0 L (3.8-4.9) g/dL Current Medications Generic Name Dose Route Start Last Admin Trade Name Freq PRN Reason Stop Dose Admin Amiodarone HCl 100 mg 11/15/21 09:00 11/15/21 09:02 Amiodarone 100 Mg Tab PO 100 mg DAILY HELENE Administration Aspirin 81 mg 11/14/21 10:45 11/15/21 08:54 Aspirin 81 Mg PO 81 mg DAILY [facility] Administration Atorvastatin Calcium 80 mg 11/14/21 21:00 11/14/21 20:32 Atorvastatin 80 Mg Tab PO 80 mg HS [facility]ENE Administration Furosemide 40 mg 11/14/21 10:45 11/15/21 08:54 Furosemide 40 Mg Tab PO 40 mg DAILY HELENE Administration Ceftriaxone Sodium 1 gm/ 50 mls @ 100 mls/hr 11/14/21 15:00 11/15/21 02:32 Sodium Chloride IVPB 100 mls/hr Q12H [facility] Administration Protocol Vancomycin HCl 2,000 mg/ 500 mls @ 167 mls/hr 11/14/21 14:00 11/15/21 05:57 Sodium Chloride IVPB 167 mls/hr Q16H [facility] Administration Insulin Aspart 0 unit 11/14/21 07:30 11/15/21 07:40 Insulin Aspart (Novolog) 100 Unit/Ml Vial SQ Not Given ACHS [facility] Protocol Lisinopril 10 mg 11/15/21 09:00 11/15/21 08:54 Lisinopril 10 Mg Tab PO 10 mg DAILY [facility]ENE Administration Loratadine 10 mg 11/14/21 21:00 11/14/21 20:33 Loratadine 10 Mg Tab PO 10 mg HS HELENE Administration Metoprolol Succinate 50 mg 11/14/21 10:45 11/15/21 08:54 Metoprolol Succinate (Er) 50 Mg Tab.Er.24h PO 50 mg DAILY [facility] Administration Miscellaneous Information 0 each 11/14/21 12:29 Warfarin Per Pharmacy MISCELLANE DIRECTED PRN ANTICOAG Miscellaneous Information 0 each 11/17/21 05:00 Vancomycin Trough Due 1 Each Mis MISCELLANE 11/17/21 05:01 DIRECTED ONE Morphine Sulfate 4 mg 11/14/21 03:07 Morphine Sulfate 4 Mg/Ml Syringe IV Q4HR PRN Severe Pain Naloxone HCl 0.2 mg 11/14/21 03:07 Naloxone 0.4 Mg/Ml 1 Ml Vial IV Q2M PRN Opioid Reversal Nortriptyline HCl 50 mg 11/14/21 21:00 11/14/21 20:32 Nortriptyline 25 Mg Cap PO 50 mg HS [facility] Administration Ondansetron HCl 4 mg 11/14/21 03:07 Ondansetron 4 Mg/2 Ml Vial IVP Q8HR PRN Nausea And Vomiting Oxycodone/Acetaminophen 1 each 11/14/21 10:44 11/15/21 05:56 Oxycodone-Apap 10-325mg 1 Each Tab PO 1 each Q6H PRN Administration Pain Pantoprazole Sodium 40 mg 11/14/21 21:00 11/15/21 08:54 Pantoprazole 40 Mg Tablet PO 40 mg BID HELENE Administration Topiramate 25 mg 11/14/21 21:00 11/15/21 08:55 Topiramate 25 Mg Tab PO 25 mg BID [facility] Administration Warfarin Sodium 5 mg 11/15/21 18:00 Warfarin 5 Mg Tab PO 11/15/21 18:01 ONCE@1800 ONE Intake and Output 11/14/21 11/15/21 11/15/21 22:59 06:59 14:59 Intake Total 1150 Balance 1150 Intake: Intake, IV Titration 550 Amount Vancomycin 2,000 mg In 500 Sodium Chloride 0.9% 500 ml 500 ml @ 167 mls/hr IVPB Q16H [facility] Rx#: [id number] cefTRIAXone 1 gm In 50 Sodium Chloride 0.9% 50 ml @ 100 mls/hr IVPB Q12H [facility] Rx#:[id number] Oral 600 Other: Voiding Method Urinal Urinal # Voids 4 # Bowel Movements 1 11/14/21 02:50 11/15/21 05:26
[2021-11-15 11:02] LABS: Glucose,Whole Blood 263 mg/dL (75-99)
[2021-11-15 11:20] VITALS: BMI 31.6
--- NOTE | 2021-11-15 11:21 | P.DS ---
Providers Date of admission: 11/14/21 03:07 Expected date of discharge: 11/15/21 Attending physician: Tiffany Luis MD Consults: 11/14/21 10:37 Consult Physician Urgent Consulting Provider: Ryan Kirkland Consult Reason/Comments: Elevated Trop Do you want consulting provider notified?: Yes Primary care physician: [facility] Course: Patient is a 66-year-old male with a PMH of type II DM, left BKA, A. fib on Coumadin, history of DVT and PE, chronic CHF, hyperlipidemia hypertension, COPD, who presents to the emergency room with complaints of right leg pain and swelling. Patient reports that over the past 3-4 days, he has noted gradually worsening redness and pain with oozing ulcers of the right leg. Patient reports experiencing fevers earlier tonight. The patient does have a history of MRSA cellulitis in the past. Denied experiencing chest discomfort, shortness of breath, nausea, vomiting, abdominal pain, diarrhea, urinary complaints. EKG emergency room revealed sinus rhythm at 68 bpm with poor R-wave progression, inferior lead Q waves, and diffuse T-wave flattening. Laboratory evaluation was remarkable for hemoglobin of 11.5, troponin 0.038, BUN 24, creatinine 1.59, and T-max 100.2F with SpO2 94% on room air. Troponins were trended and ACS was ruled out. Patient was started on Vancomycin and Rocephin for treatment of cellulitis. Blood cultures were negative at 24H. Cardiology was consulted and recommeded decreasing Amiodarone and Lisinopril along with Echocardiogram. Echo was pending at the time of this note. His right lower extremity cellulitis improved with IV antibiotics. He was advised to continue Keflex for another 5 days. He was advised to follow up with Dr. Mcintyre within 1 week of discharge. Initial concerns of CHF exacerbation given oxygen requirements and elevated BNP, chest X ray was ordered. CXR showed coarse interstitial density consistent with interstitial fibrosis and no acute lung disease. This complex discharge took about 45 minutes to complete. General: non toxic, no distress, appears at stated age, morbidly obese Derm: Right lower extremity mild diffuse erythema (improved) with multiple shallow ulcers draining clear fluid Head: atraumatic, normocephalic, symmetric Eyes: EOMI, no lid lag, anicteric sclera, pupils equal round reactive to light ENT: Nose and ears atraumatic, no thrush, no pharyngeal erythema Neck: No thyromegaly, no cervical lymphadenopathy, trachea midline, supple Mouth: no lip lesion, mucus membranes moist Cardiovascular: S1S2 reg, no murmur, trace RLE edema, capillary refill less than 2 seconds Lungs: CTA bilateral, no rhonchi, no rales , no accessory muscle use Ext: no gross muscle atrophy, left BKA, no contractures, Psych: Alert, oriented, appropriate affect Discharge Diagnosis: #Right lower extremity cellulitis #Troponin elevation #Chronic respiratory failure on 3 L nasal cannula #Normocytic anemia #Morbid obesity Resolved: Acute kidney injury Chronic conditions: Diabetes, hypertension, lipidemia, A. fib, history of DVT, COPD Pertinent Studies: CXR Patient Condition at Discharge: Stable Plan - Discharge Summary Discharge Rx Participant: No New Discharge Prescriptions: New oxyCODONE-APAP 10-325MG [Percocet 10-325 mg] 1 each PO Q6H PRN #12 tab PRN Reason: Pain lisinopriL [Zestril] 10 mg PO DAILY #30 tab Cephalexin [Keflex] 500 mg PO Q6HR 5 Days #20 cap Amiodarone [Cordarone] 100 mg PO DAILY #30 tab Continue Atorvastatin [Lipitor] 80 mg PO HS Topiramate [Topamax] 25 mg PO BID Omeprazole [PriLOSEC] 20 mg PO BID Nortriptyline [Pamelor] 50 mg PO HS Loratadine 10 mg PO HS Metoprolol Succinate (ER) [Toprol XL] 50 mg PO DAILY Docusate [Colace] 100 mg PO DAILY Furosemide [Lasix] 40 mg PO DAILY #30 tablet Celecoxib [CeleBREX] 200 mg PO DAILY metFORMIN HCL 500 mg PO BID Pregabalin [Lyrica] 300 mg PO BID Multivitamins, Thera [Multivitamin (formulary)] 1 tab PO DAILY Pioglitazone [Actos] 30 mg PO DAILY Potassium Chloride [Klor-Con 10 ER] 10 meq PO DAILY Warfarin [Coumadin] 3 mg PO HS Aspirin EC [Ecotrin Low Dose] 81 mg PO DAILY Glimepiride [Amaryl] 4 mg PO AC-BRKFST DULoxetine HCL [Cymbalta] 30 mg PO DAILY Nicotine 14Mg/24Hr Patch [Habitrol] 1 patch TRANSDERM DAILY PRN PRN Reason: Nicotine Cravings Discontinued Amiodarone [Cordarone] 200 mg PO DAILY oxyCODONE-APAP 10-325MG [Percocet 10-325 mg] 1 tab PO Q6H PRN PRN Reason: Pain lisinopriL [Prinivil] 20 mg PO DAILY Discharge Medication List Atorvastatin [Lipitor] 80 mg PO HS 01/09/14 [History] Topiramate [Topamax] 25 mg PO BID 01/09/14 [History] Nortriptyline [Pamelor] 50 mg PO HS 08/15/19 [History] Omeprazole [PriLOSEC] 20 mg PO BID 08/15/19 [History] Loratadine 10 mg PO HS 10/30/19 [History] Metoprolol Succinate (ER) [Toprol XL] 50 mg PO DAILY 02/29/20 [History] Docusate [Colace] 100 mg PO DAILY 05/19/20 [History] Multivitamins, Thera [Multivitamin (formulary)] 1 tab PO DAILY 10/16/20 [Hist ory] Furosemide [Lasix] 40 mg PO DAILY #30 tablet 12/29/20 [Rx] Celecoxib [CeleBREX] 200 mg PO DAILY 06/02/21 [History] Pioglitazone [Actos] 30 mg PO DAILY 06/02/21 [History] Potassium Chloride [Klor-Con 10 ER] 10 meq PO DAILY 06/02/21 [History] Warfarin [Coumadin] 3 mg PO HS 06/02/21 [History] metFORMIN HCL 500 mg PO BID 06/02/21 [History] Aspirin EC [Ecotrin Low Dose] 81 mg PO DAILY 09/05/21 [History] DULoxetine HCL [Cymbalta] 30 mg PO DAILY 09/07/21 [History] Glimepiride [Amaryl] 4 mg PO AC-BRKFST 09/07/21 [History] Pregabalin [Lyrica] 300 mg PO BID 09/07/21 [History] Nicotine 14Mg/24Hr Patch [Habitrol] 1 patch TRANSDERM DAILY PRN 11/14/21 [History] Amiodarone [Cordarone] 100 mg PO DAILY #30 tab 11/15/21 [Rx] Cephalexin [Keflex] 500 mg PO Q6HR 5 Days #20 cap 11/15/21 [Rx] lisinopriL [Zestril] 10 mg PO DAILY #30 tab 11/15/21 [Rx] oxyCODONE-APAP 10-325MG [Percocet 10-325 mg] 1 each PO Q6H PRN #12 tab 11/15/21 [Rx] Follow up Appointment(s)/Referral(s): Kristin Emery DO [Primary Care Provider] - 1-2 days Franko Mcintyre MD [STAFF PHYSICIAN] - 1 Week Activity/Diet/Wound Care/Special Instructions: Diet: Diabetic/Cardiac FU with PCP within 1-2 days of discharge. FU with Dr. Mcintyre within 1 week of discharge. Take all medications as advised. Come back to the ED for chest pain, shortness of breath, palpitations, dizziness/lightheadedness, fever > 100.4F not relieved with Tylenol, intractable pain in the right leg. Discharge Disposition: HOME SELF-CARE
[2021-11-15 11:28] VITALS: BP 99/57; PULSE 57; RESP 20
--- NOTE | 2021-11-15 11:57 | CA ---
Transthoracic Echo Report Name: Checo Quijano Age: 66 Gender: M : 1955 Exam Date: 11/15/2021 08:38 Exam Location: [facility] Ht (in): 74 Wt (lb): 260 Ordering Physician: Varun Ramirez MD Attending/Referring Phys: Music Specialist Courtney Aguirre, ATIF Procedure CPT: Indications: troponin elevation Cardiac Hx: Hx of afib,htn,copd,cva,pe,dvt Technical Quality: Poor Contrast 1: Lumason Total Dose (mL): 1 Contrast 2: Total Dose (mL): MEASUREMENTS (Male / Female) Normal Values 2D ECHO LV Diastolic Diameter PLAX 3.8 cm 4.2 - 5.9 / 3.9 - 5.3 cm LV Systolic Diameter PLAX 2.2 cm IVS Diastolic Thickness 1.2 cm 0.6 - 1.0 / 0.6 - 0.9 cm LVPW Diastolic Thickness 1.4 cm 0.6 - 1.0 / 0.6 - 0.9 cm LV Relative Wall Thickness 0.7 RV Internal Dim ED PLAX 4.4 cm DOPPLER AV Peak Velocity 123.9 cm/s AV Peak Gradient 6.1 mmHg MV Area PHT 2.0 cm??? MR Peak Velocity 119.6 cm/s MR Peak Gradient 5.7 mmHg Mitral E Point Velocity 55.3 cm/s Mitral A Point Velocity 47.5 cm/s Mitral E to A Ratio 1.2 MV Deceleration Time 386.8 ms TR Peak Velocity 177.9 cm/s TR Peak Gradient 12.7 mmHg Right Ventricular Systolic Press 16.6 mmHg FINDINGS Left Ventricle Mildly increased septal wall thickness. Left ventricular ejection fraction is estimated at 55-60 %. Right Ventricle Right ventricle not well visualized. Right Atrium Right atrium not well visualized. Left Atrium Left atrium not well visualized. Mitral Valve Mitral valve not well visualized. Trace mitral regurgitation. Aortic Valve Aortic valve not well visualized. Tricuspid Valve No tricuspid stenosis, regurgitation or prolapse. Trace tricuspid regurgitation. Pulmonic Valve Pulmonic valve not well visualized. Pericardium No pericardial effusion. Aorta Aortic root and proximal ascending aorta not well visualized. CONCLUSIONS Left ventricle has normal size wall motion and systolic function Previewed by: Dr. Joshua Heaton MD (Electronically Signed) Final Date: 15 Nov 2021 11:56
[2021-11-15] MEDS ORDERED: WARFARIN 5 MG TAB PO ONE (18:00)
[2021-11-17] MEDS ORDERED: VANCOMYCIN TROUGH DUE 1 EACH MISC MISCELLANE ONE (05:00)
== END 2021-11-15 15:50 | disposition home or self-care (01) ==
LOC: EC 20:53 → 4SSUR 11-14 03:07 → 3SCARD 11-14 04:31 → 5NMEDONC 11-14 13:10
PROVIDERS: ADMIT Internal Medicine; ATTEND Internal Medicine
DX: L03.115 Cellulitis of right lower limb (principal); J96.10 Chronic respiratory failure, unspecified whether with hypoxia or hypercapnia; D50.9 Iron deficiency anemia, unspecified; N17.9 Acute kidney failure, unspecified; E66.01 Morbid (severe) obesity due to excess calories; Z68.31 Body mass index [BMI] 31.0-31.9, adult; E11.621 Type 2 diabetes mellitus with foot ulcer; I13.0 Hypertensive heart and chronic kidney disease with heart failure and stage 1 through stage 4 chronic kidney disease, or unspecified chronic kidney disease; N18.9 Chronic kidney disease, unspecified; I50.9 Heart failure, unspecified; J44.9 Chronic obstructive pulmonary disease, unspecified; I48.0 Paroxysmal atrial fibrillation; E78.5 Hyperlipidemia, unspecified; L97.919 Non-pressure chronic ulcer of unspecified part of right lower leg with unspecified severity; M79.89 Other specified soft tissue disorders; E11.22 Type 2 diabetes mellitus with diabetic chronic kidney disease; K21.9 Gastro-esophageal reflux disease without esophagitis; M19.90 Unspecified osteoarthritis, unspecified site; D68.62 Lupus anticoagulant syndrome; G43.909 Migraine, unspecified, not intractable, without status migrainosus; G89.29 Other chronic pain; M54.50 Low back pain, unspecified; R60.0 Localized edema; G62.9 Polyneuropathy, unspecified; F17.210 Nicotine dependence, cigarettes, uncomplicated; L02.92 Furuncle, unspecified; R21 Rash and other nonspecific skin eruption; E11.65 Type 2 diabetes mellitus with hyperglycemia; L97.509 Non-pressure chronic ulcer of other part of unspecified foot with unspecified severity; Z16.24 Resistance to multiple antibiotics; Z86.718 Personal history of other venous thrombosis and embolism; Z79.01 Long term (current) use of anticoagulants; Z86.711 Personal history of pulmonary embolism; Z89.512 Acquired absence of left leg below knee; Z86.14 Personal history of Methicillin resistant Staphylococcus aureus infection; B95.62 Methicillin resistant Staphylococcus aureus infection as the cause of diseases classified elsewhere; Z86.73 Personal history of transient ischemic attack (TIA), and cerebral infarction without residual deficits; Z87.01 Personal history of pneumonia (recurrent); Z99.3 Dependence on wheelchair; Z89.612 Acquired absence of left leg above knee; Z95.828 Presence of other vascular implants and grafts; Z96.642 Presence of left artificial hip joint; Z79.899 Other long term (current) drug therapy; Z79.1 Long term (current) use of non-steroidal anti-inflammatories (NSAID); Z79.84 Long term (current) use of oral hypoglycemic drugs; Z79.82 Long term (current) use of aspirin; Z88.8 Allergy status to other drugs, medicaments and biological substances; Z83.3 Family history of diabetes mellitus; Z82.49 Family history of ischemic heart disease and other diseases of the circulatory system; Z71.9 Counseling, unspecified
CPT/HCPCS: 96361 ×2; 96366 ×3; 96365; 96367; 96375; 99285; 36415; 93005; 83880; 80053 ×2; 83735; 84100; 84484; 85025 ×2; 85610 ×2; 85730; 81001; 87040; 83036; 71045; G0378 ×4; C8929; J3370 ×2; J2270; J2405; J0696 ×3; Q9950; 93306

== ENCOUNTER 2022-01-14 15:02 | Emergency (ER) | payer MEDICARE ==
--- NOTE | 2022-01-14 15:41 | ED ---
General Adult HPI - General Stated complaint: ARACELIS Time Seen by Provider: 01/14/22 15:24 Source: patient, family, RN notes reviewed, old records reviewed - History of Present Illness Initial comments: 66-year-old male presenting with 3 days of cough, congestion, fever and headache. Patient has had 2 vaccines against coronavirus. He is uncertain if he has come in contact with coronavirus. He reports some mild chest discomfort associated with cough. He is a current smoker. He is a current diabetic. He has history of CAD and peripheral vascular disease. No central radiating chest pain. No abdominal pain. - Related Data Home Medications Medication Instructions Recorded Confirmed Atorvastatin [Lipitor] 80 mg PO HS 01/09/14 11/14/21 Topiramate [Topamax] 25 mg PO BID 01/09/14 11/14/21 Nortriptyline [Pamelor] 50 mg PO HS 08/15/19 11/14/21 Omeprazole [PriLOSEC] 20 mg PO BID 08/15/19 11/14/21 Loratadine 10 mg PO HS 10/30/19 11/14/21 Metoprolol Succinate (ER) [Toprol 50 mg PO DAILY 02/29/20 11/14/21 XL] Docusate [Colace] 100 mg PO DAILY 05/19/20 11/14/21 Multivitamins, Thera [Multivitamin 1 tab PO DAILY 10/16/20 11/14/21 (formulary)] Celecoxib [CeleBREX] 200 mg PO DAILY 06/02/21 11/14/21 Pioglitazone [Actos] 30 mg PO DAILY 06/02/21 11/14/21 Potassium Chloride [Klor-Con 10 ER] 10 meq PO DAILY 06/02/21 11/14/21 Warfarin [Coumadin] 3 mg PO HS 06/02/21 11/14/21 metFORMIN HCL 500 mg PO BID 06/02/21 11/14/21 Aspirin EC [Ecotrin Low Dose] 81 mg PO DAILY 09/05/21 11/14/21 DULoxetine HCL [Cymbalta] 30 mg PO DAILY 09/07/21 11/14/21 Glimepiride [Amaryl] 4 mg PO AC-BRKFST 09/07/21 11/14/21 Pregabalin [Lyrica] 300 mg PO BID 09/07/21 11/14/21 Nicotine 14Mg/24Hr Patch [Habitrol] 1 patch TRANSDERM DAILY PRN 11/14/21 11/14/21 Previous Rx's Medication Instructions Recorded Furosemide [Lasix] 40 mg PO DAILY #30 tablet 12/29/20 Amiodarone [Cordarone] 100 mg PO DAILY #30 tab 11/15/21 Cephalexin [Keflex] 500 mg PO Q6HR 5 Days #20 cap 11/15/21 lisinopriL [Zestril] 10 mg PO DAILY #30 tab 11/15/21 oxyCODONE-APAP 10-325MG [Percocet 1 each PO Q6H PRN #12 tab 11/15/21 10-325 mg] Levofloxacin [Levaquin] 500 mg PO DAILY 7 Days #7 tab 01/14/22 predniSONE 50 mg PO DAILY #5 tab 01/14/22 Allergies Allergy/AdvReac Type Severity Reaction Status Date / Time baclofen Allergy Unknown Verified 01/14/22 15:47 Review of Systems ROS Statement: Those systems with pertinent positive or pertinent negative responses have been documented in the HPI. ROS Other: All systems not noted in ROS Statement are negative. Past Medical History Past Medical History: Atrial Fibrillation, Asthma, COPD, CVA/TIA, Diabetes Mellitus, Deep Vein Thrombosis (DVT), GERD/Reflux, Hyperlipidemia, Hypertension, Neurologic Disorder, Osteoarthritis (OA), Pneumonia, Pulmonary Embolus (PE), Skin Disorder, Vascular Disorder Additional Past Medical History / Comment(s): Pt admitted to [facility] on 11/20/20 with hyperkalemia, hyperglycemia, uncontrolled diabetes. Other hx: Lupus anticoagulant, DVTs bilateral legs, PEs bilateral lungs, pt has zina filter, L AKA/wheelchair bound, NIDDM type II, neuropathy bilateral hands, wound care patient for buttock wound, now healed, TIAs, pneumothorax, past migraines, chronic low back pain, R leg edema at times, varicosities. History of Any Multi-Drug Resistant Organisms: MRSA Date of last positivie culture/infection: 06/04/21 MDRO Source:: Right Leg MRSA Past Surgical History: Adenoidectomy, Appendectomy, Tonsillectomy Additional Past Surgical History / Comment(s): 1980s [place] filter, stents in vessels "in pelvic area", total L hip arthroplasty, vein strippings, colonoscopy. left leg amputation Past Anesthesia/Blood Transfusion Reactions: No Reported Reaction Additional Past Anesthesia/Blood Transfusion Reaction / Comment(s): Pt has received blood in past without reaction. Past Psychological History: No Psychological Hx Reported Additional Psychological History / Comment(s): Pt currently living with his albina. He has a home care nurse thru [facility] pt states for wound care. He has a glucometer. He has a nebulizer but it is in his own home. Pt states he no longer drives and that getting to appts will be difficult for him. Smoking Status: Current every day smoker Past Alcohol Use History: None Reported Additional Past Alcohol Use History / Comment(s): Pt startes smoking in 1969 and is a ppd smoker. Past Drug Use History: Marijuana - Past Family History Mother Family Medical History: Coronary Artery Disease (CAD), Myocardial Infarction ([place]), Vascular Disorder Additional Family Medical History / Comment(s): heart disease, peripheral vascular disease. Father Family Medical History: Diabetes Mellitus, Renal Disease General Exam General appearance: alert, in no apparent distress Head exam: Present: atraumatic, normocephalic Eye exam: Present: normal appearance, PERRL ENT exam: Present: normal exam Neck exam: Present: normal inspection. Absent: tenderness, meningismus Respiratory exam: Present: normal lung sounds bilaterally. Absent: respiratory distress, wheezes Cardiovascular Exam: Present: regular rate, normal rhythm GI/Abdominal exam: Present: soft. Absent: distended, tenderness, guarding Rectal exam: Present: other (Stage I bilateral upper thighs) exam: Present: scrotal swelling (Stage I scrotum) Extremities exam: Present: other (Left [id number] amputation) Neurological exam: Present: alert, oriented X3 Psychiatric exam: Present: normal affect, normal mood Skin exam: Present: warm, dry, intact. Absent: cyanosis, diaphoretic Course Vital Signs 01/14/22 01/14/22 15:38 17:17 Temperature 99.2 F Pulse Rate 64 74 Respiratory 20 18 Rate Blood Pressure 120/73 136/74 O2 Sat by Pulse 95 Oximetry EKG Findings - EKG Comments: EKG Findings:: EKG sinus rhythm, left anterior fascicular block, rate of 76, AK interval 188, QRS duration 1:30, QTC 441 the precordial leads V5 and V6 have artifact limiting assessment. Medical Decision Making - Medical Decision Making 66-year-old male who presents for evaluation of cough, congestion. Patient is well-appearing stable vitals. He has a bronchospastic cough. There was concern for coronavirus this was performed in the emergency department negative. Chest x-ray shows a interstitial pneumonia. His troponin negative, BNP is elevated at 3700. His symptoms are more consistent with respiratory infection. He has a normal white blood cell count. He has a hemoglobin of 11.7. Lactic acid is 1.3 currently. I did offer admission, patient prefers discharge with oral antibiotics. He will also be prescribed steroids. He is given first dose in the emergency department. - Lab Data Result diagrams: 01/14/22 15:39 01/14/22 15:39 Lab Results 01/14/22 01/14/22 01/14/22 Range/Units 15:39 15:39 15:39 WBC 6.3 (3.8-10.6) k/uL RBC 4.37 (4.30-5.90) m/uL Hgb 11.7 L (13.0-17.5) gm/dL Hct 36.0 L (39.0-53.0) % MCV 82.3 (80.0-100.0) fL MCH 26.8 (25.0-35.0) pg MCHC 32.5 (31.0-37.0) g/dL RDW 20.0 H (11.5-15.5) % Plt Count 227 (150-450) k/uL MPV 7.7 Neutrophils % 76 % Lymphocytes % 14 % Monocytes % 7 % Eosinophils % 1 % Basophils % 0 % Neutrophils # 4.8 (1.3-7.7) k/uL Lymphocytes # 0.9 L (1.0-4.8) k/uL Monocytes # 0.4 (0-1.0) k/uL Eosinophils # 0.1 (0-0.7) k/uL Basophils # 0.0 (0-0.2) k/uL Hypochromasia Slight Anisocytosis Moderate Microcytosis Slight PT 14.9 H (9.0-12.0) sec INR 1.4 H (<1.2) APTT 29.2 (22.0-30.0) sec Sodium 135 L (137-145) mmol/L Potassium 4.2 (3.5-5.1) mmol/L Chloride 105 (98-107) mmol/L Carbon Dioxide 23 (22-30) mmol/L Anion Gap 7 mmol/L BUN 12 (9-20) mg/dL Creatinine 0.94 (0.66-1.25) mg/dL Est GFR (CKD-EPI)AfAm >90 (>60 ml/min/1.73 sqM) Est GFR (CKD-EPI)NonAf 86 (>60 ml/min/1.73 sqM) Glucose 134 H (74-99) mg/dL Plasma Lactic Acid Dennis (0.7-2.0) mmol/L Calcium 8.0 L (8.4-10.2) mg/dL Magnesium 1.6 (1.6-2.3) mg/dL Total Bilirubin 0.4 (0.2-1.3) mg/dL AST 23 (17-59) U/L ALT 20 (4-49) U/L Alkaline Phosphatase 99 (38-126) U/L Troponin I (0.000-0.034) ng/mL NT-Pro-B Natriuret Pep pg/mL Total Protein 6.2 L (6.3-8.2) g/dL Albumin 2.9 L (3.5-5.0) g/dL Coronavirus (PCR) (Not Detectd) 01/14/22 01/14/22 01/14/22 Range/Units 15:39 15:39 15:39 WBC (3.8-10.6) k/uL RBC (4.30-5.90) m/uL Hgb (13.0-17.5) gm/dL Hct (39.0-53.0) % MCV (80.0-100.0) fL MCH (25.0-35.0) pg MCHC (31.0-37.0) g/dL RDW (11.5-15.5) % Plt Count (150-450) k/uL MPV Neutrophils % % Lymphocytes % % Monocytes % % Eosinophils % % Basophils % % Neutrophils # (1.3-7.7) k/uL Lymphocytes # (1.0-4.8) k/uL Monocytes # (0-1.0) k/uL Eosinophils # (0-0.7) k/uL Basophils # (0-0.2) k/uL Hypochromasia Anisocytosis Microcytosis PT (9.0-12.0) sec INR (<1.2) APTT (22.0-30.0) sec Sodium (137-145) mmol/L Potassium (3.5-5.1) mmol/L Chloride (98-107) mmol/L Carbon Dioxide (22-30) mmol/L Anion Gap mmol/L BUN (9-20) mg/dL Creatinine (0.66-1.25) mg/dL Est GFR (CKD-EPI)AfAm (>60 ml/min/1.73 sqM) Est GFR (CKD-EPI)NonAf (>60 ml/min/1.73 sqM) Glucose (74-99) mg/dL Plasma Lactic Acid Dennis 1.3 (0.7-2.0) mmol/L Calcium (8.4-10.2) mg/dL Magnesium (1.6-2.3) mg/dL Total Bilirubin (0.2-1.3) mg/dL AST (17-59) U/L ALT (4-49) U/L Alkaline Phosphatase (38-126) U/L Troponin I 0.031 (0.000-0.034) ng/mL NT-Pro-B Natriuret Pep pg/mL Total Protein (6.3-8.2) g/dL Albumin (3.5-5.0) g/dL Coronavirus (PCR) Not Detected (Not Detectd) 01/14/22 Range/Units 15:39 WBC (3.8-10.6) k/uL RBC (4.30-5.90) m/uL Hgb (13.0-17.5) gm/dL Hct (39.0-53.0) % MCV (80.0-100.0) fL MCH (25.0-35.0) pg MCHC (31.0-37.0) g/dL RDW (11.5-15.5) % Plt Count (150-450) k/uL MPV Neutrophils % % Lymphocytes % % Monocytes % % Eosinophils % % Basophils % % Neutrophils # (1.3-7.7) k/uL Lymphocytes # (1.0-4.8) k/uL Monocytes # (0-1.0) k/uL Eosinophils # (0-0.7) k/uL Basophils # (0-0.2) k/uL Hypochromasia Anisocytosis Microcytosis PT (9.0-12.0) sec INR (<1.2) APTT (22.0-30.0) sec Sodium (137-145) mmol/L Potassium (3.5-5.1) mmol/L Chloride (98-107) mmol/L Carbon Dioxide (22-30) mmol/L Anion Gap mmol/L BUN (9-20) mg/dL Creatinine (0.66-1.25) mg/dL Est GFR (CKD-EPI)AfAm (>60 ml/min/1.73 sqM) Est GFR (CKD-EPI)NonAf (>60 ml/min/1.73 sqM) Glucose (74-99) mg/dL Plasma Lactic Acid Dennis (0.7-2.0) mmol/L Calcium (8.4-10.2) mg/dL Magnesium (1.6-2.3) mg/dL Total Bilirubin (0.2-1.3) mg/dL AST (17-59) U/L ALT (4-49) U/L Alkaline Phosphatase (38-126) U/L Troponin I (0.000-0.034) ng/mL NT-Pro-B Natriuret Pep 3740 pg/mL Total Protein (6.3-8.2) g/dL Albumin (3.5-5.0) g/dL Coronavirus (PCR) (Not Detectd) Disposition Clinical Impression: Pneumonia, COPD with exacerbation Disposition: HOME SELF-CARE Condition: Fair Instructions (If sedation given, give patient instructions): COPD (Chronic Obstructive Pulmonary Disease) (ED), Bacterial Pneumonia (ED) Prescriptions: Levofloxacin [Levaquin] 500 mg PO DAILY 7 Days #7 tab predniSONE 50 mg PO DAILY #5 tab Is patient prescribed a controlled substance at d/c from ED?: No Referrals: Kristin Emery DO [Primary Care Provider] - 1-2 days Time of Disposition: 17:42
[2022-01-14 16:07] LABS: ALT 20 U/L (4-49); AST 23 U/L (17-59); African American GFR (CKD) >90 (>60 ml/min/1.73 sqM); Albumin 2.9 g/dL (3.5-5.0); Alkaline Phosphatase 99 U/L (38-126); Anion Gap 7 mmol/L; Blood Urea Nitrogen 12 mg/dL (9-20); Carbon Dioxide 23 mmol/L (22-30); Chloride 105 mmol/L (98-107); Glucose 134 mg/dL (74-99); Magnesium 1.6 mg/dL (1.6-2.3); Non-African American GFR(CKD) 86 (>60 ml/min/1.73 sqM); Potassium 4.2 mmol/L (3.5-5.1); Sodium 135 mmol/L (137-145); Total Bilirubin 0.4 mg/dL (0.2-1.3); Total Protein 6.2 g/dL (6.3-8.2)
[2022-01-14 16:12] LABS: INR 1.4 (<1.2); Partial Thromboplastin Time 29.2 sec (22.0-30.0); Prothrombin Time 14.9 sec (9.0-12.0)
[2022-01-14 16:13] LABS: Anisocytosis Moderate; Basophils % (A) 0 %; Eosinophils # (A) 0.1 k/uL (0-0.7); Eosinophils % (A) 1 %; HGB 11.7 gm/dL (13.0-17.5); Hypochromasia Slight; Lymphocytes # (A) 0.9 k/uL (1.0-4.8); Lymphocytes % (A) 14 %; MCH 26.8 pg (25.0-35.0); MCHC 32.5 g/dL (31.0-37.0); MCV 82.3 fL (80.0-100.0); Mean Platelet Volume 7.7; Microcytosis Slight; Monocytes # (A) 0.4 k/uL (0-1.0); Monocytes % (A) 7 %; Neutrophils # (A) 4.8 k/uL (1.3-7.7); Neutrophils % (A) 76 %; Platelet Count 227 k/uL (150-450); RBC 4.37 m/uL (4.30-5.90); WBC 6.3 k/uL (3.8-10.6)
--- NOTE | 2022-01-14 16:29 | XR ---
EXAMINATION TYPE: XR chest 2V DATE OF EXAM: 01/14/2022 COMPARISON: 11/14/2021 HISTORY: 66-year-old male weakness and shortness of breath TECHNIQUE: AP and lateral views FINDINGS: Heart is mildly enlarged. Bilateral hilar prominence probably reflecting enlarged pulmonary arteries. Diffuse interstitial opacity. Some possible nodularity right upper lobe should be reassessed at foll ow-up after successful treatment. Hyperinflation. Focal posterior basilar opacity on the lateral view . IMPRESSION: 1. Mild cardiomegaly. Possible underlying pulmonary arterial hypertension. There is background COPD w ith prominent diffuse interstitial changes. Correlate for CHF or atypical pneumonias. 2. After successful treatment, follow up recommended to exclude a right upper lobe pulmonary nodule.
[2022-01-14] MEDS ORDERED: methylPREDNISolone SOD SUCCI 125 MG/2 ML VIAL IV STA (16:44)
[2022-01-14] MEDS ORDERED: AZITHROMYCIN 500 MG in SODIUM CHLORIDE 0.9% 250 ML IVPB STA (16:44)
[2022-01-14 19:11] VITALS: BP 126/83; PULSE 76; RESP 18; TEMP 97.3
== END 2022-01-14 20:02 | disposition home or self-care (01) ==
LOC: EC 15:02
DX: J44.1 Chronic obstructive pulmonary disease with (acute) exacerbation (principal); J18.9 Pneumonia, unspecified organism; E11.9 Type 2 diabetes mellitus without complications; E78.5 Hyperlipidemia, unspecified; I10 Essential (primary) hypertension; Z86.73 Personal history of transient ischemic attack (TIA), and cerebral infarction without residual deficits; F17.200 Nicotine dependence, unspecified, uncomplicated; Z88.6 Allergy status to analgesic agent
CPT/HCPCS: 36415; 93005; 83880; 80053; 83605; 83735; 84484; 85025; 85610; 85730; 87040; 87635; 71046; 99284; 96365; 96375; J2930; J0456

== ENCOUNTER 2022-02-19 03:39 | Emergency (ER) | payer MEDICARE ==
[2022-02-19 03:46] VITALS: BP 115/68; TEMP 98.2
[2022-02-19] MEDS ORDERED: GELATIN SPONGE,ABSORB (SMALL) 1 EACH SPONGE TOPICAL STA (06:01)
[2022-02-19] MEDS ORDERED: CEPHALEXIN 500 MG CAP PO STA (06:17)
--- NOTE | 2022-02-19 06:17 | ED ---
Wound/Laceration HPI - General Chief Complaint: Wound/Laceration Stated Complaint: Finger Laceration Time Seen by Provider: 02/19/22 03:51 Source: patient, RN notes reviewed Mode of arrival: ambulatory Limitations: no limitations - History of Present Illness Initial Comments: This is a 66-year-old male who presents to the emergency department for a wound on his right middle finger. Patient states that approximately an hour prior to arrival, he cut his finger on a grinding wheel. He does take Coumadin daily. His last tetanus vaccine was a couple of years ago. Pain is well controlled at this time. Denies any fevers, chills, sore throat, cough, dyspnea, chest pain, palpitations, abdominal pain, nausea, vomiting, diarrhea, back pain, or headaches. Location: other (Right middle finger) Place: home Patient Tetanus UTD: Yes Context: accidental Associated Symptoms: none Treatments Prior to Arrival: bandage - Related Data Home Medications Medication Instructions Recorded Confirmed Atorvastatin [Lipitor] 80 mg PO HS 01/09/14 11/14/21 Topiramate [Topamax] 25 mg PO BID 01/09/14 11/14/21 Nortriptyline [Pamelor] 50 mg PO HS 08/15/19 11/14/21 Omeprazole [PriLOSEC] 20 mg PO BID 08/15/19 11/14/21 Loratadine 10 mg PO HS 10/30/19 11/14/21 Metoprolol Succinate (ER) [Toprol 50 mg PO DAILY 02/29/20 11/14/21 XL] Docusate [Colace] 100 mg PO DAILY 05/19/20 11/14/21 Multivitamins, Thera [Multivitamin 1 tab PO DAILY 10/16/20 11/14/21 (formulary)] Celecoxib [CeleBREX] 200 mg PO DAILY 06/02/21 11/14/21 Pioglitazone [Actos] 30 mg PO DAILY 06/02/21 11/14/21 Potassium Chloride [Klor-Con 10 ER] 10 meq PO DAILY 06/02/21 11/14/21 Warfarin [Coumadin] 3 mg PO HS 06/02/21 11/14/21 metFORMIN HCL 500 mg PO BID 06/02/21 11/14/21 Aspirin EC [Ecotrin Low Dose] 81 mg PO DAILY 09/05/21 11/14/21 DULoxetine HCL [Cymbalta] 30 mg PO DAILY 09/07/21 11/14/21 Glimepiride [Amaryl] 4 mg PO AC-BRKFST 09/07/21 11/14/21 Pregabalin [Lyrica] 300 mg PO BID 09/07/21 11/14/21 Nicotine 14Mg/24Hr Patch [Habitrol] 1 patch TRANSDERM DAILY PRN 11/14/21 11/14/21 Previous Rx's Medication Instructions Recorded Furosemide [Lasix] 40 mg PO DAILY #30 tablet 12/29/20 Amiodarone [Cordarone] 100 mg PO DAILY #30 tab 11/15/21 Cephalexin [Keflex] 500 mg PO Q6HR 5 Days #20 cap 11/15/21 lisinopriL [Zestril] 10 mg PO DAILY #30 tab 11/15/21 oxyCODONE-APAP 10-325MG [Percocet 1 each PO Q6H PRN #12 tab 11/15/21 10-325 mg] Levofloxacin [Levaquin] 500 mg PO DAILY 7 Days #7 tab 01/14/22 predniSONE 50 mg PO DAILY #5 tab 01/14/22 Cephalexin [Keflex] 500 mg PO Q8HR 3 Days #9 cap 02/19/22 Allergies Allergy/AdvReac Type Severity Reaction Status Date / Time baclofen Allergy Unknown Verified 02/19/22 03:46 Review of Systems ROS Statement: Those systems with pertinent positive or pertinent negative responses have been documented in the HPI. ROS Other: All systems not noted in ROS Statement are negative. Past Medical History Past Medical History: Atrial Fibrillation, Asthma, COPD, CVA/TIA, Diabetes Mellitus, Deep Vein Thrombosis (DVT), GERD/Reflux, Hyperlipidemia, Hypertension, Neurologic Disorder, Osteoarthritis (OA), Pneumonia, Pulmonary Embolus (PE), Skin Disorder, Vascular Disorder Additional Past Medical History / Comment(s): Pt admitted to [facility] on 11/20/20 with hyperkalemia, hyperglycemia, uncontrolled diabetes. Other hx: Lupus anticoagulant, DVTs bilateral legs, PEs bilateral lungs, pt has zina filter, L AKA/wheelchair bound, NIDDM type II, neuropathy bilateral hands, wound care patient for buttock wound, now healed, TIAs, pneumothorax, past migraines, chronic low back pain, R leg edema at times, varicosities. History of Any Multi-Drug Resistant Organisms: MRSA Date of last positivie culture/infection: 06/04/21 MDRO Source:: Right Leg MRSA Past Surgical History: Adenoidectomy, Appendectomy, Tonsillectomy Additional Past Surgical History / Comment(s): 1980s [place] filter, stents in vessels "in pelvic area", total L hip arthroplasty, vein strippings, colono scopy. left leg amputation Past Anesthesia/Blood Transfusion Reactions: No Reported Reaction Additional Past Anesthesia/Blood Transfusion Reaction / Comment(s): Pt has received blood in past without reaction. Past Psychological History: No Psychological Hx Reported Smoking Status: Current every day smoker Past Alcohol Use History: None Reported Past Drug Use History: Marijuana - Past Family History Mother Family Medical History: Coronary Artery Disease (CAD), Myocardial Infarction ([place]), Vascular Disorder Additional Family Medical History / Comment(s): heart disease, peripheral vascular disease. Father Family Medical History: Diabetes Mellitus, Renal Disease General Exam Limitations: no limitations General appearance: alert Head exam: Present: atraumatic, normocephalic, normal inspection Respiratory exam: Present: normal lung sounds bilaterally. Absent: respiratory distress, wheezes, rales, rhonchi, stridor Cardiovascular Exam: Present: regular rate, normal rhythm, normal heart sounds. Absent: systolic murmur, diastolic murmur, rubs, gallop, clicks Extremities exam: Present: other (Full range of motion of the right middle finger. Capillary refill less than 1 second.) Neurological exam: Present: alert, oriented X3, CN II-XII intact Psychiatric exam: Present: normal affect, normal mood Skin exam: Present: other (Skin tear on the dorsal aspect of the right middle finger just superior to the PIP joint. Minor active bleeding.) Course Vital Signs 02/19/22 03:40 Temperature 98.2 F Pulse Rate 90 Respiratory 22 Rate Blood Pressure 115/68 O2 Sat by Pulse 96 Oximetry Medical Decision Making - Medical Decision Making This is a 66-year-old male who presents to the emergency department for a skin tear. There is a small skin flap still attached, however it is hard and dry and unable to be used to secure the wound. Gelfoam was used for hemostasis. The wound was then bandaged. Tetanus status is up-to-date. Prescription for Keflex provided as an infection prophylaxis due to the patient's multiple comorbidities. The first dose was administered in the emergency department, as the patient's pharmacy is currently close. Return precautions reviewed in depth, the patient is instructed to return to the emergency department with any new, worsening, or concerning symptoms. Patient verbalized understanding. This case was discussed in detail with the attending ED physician. Presentation, findings, and treatment plan discussed in detail as well. Disposition Clinical Impression: Skin tear Disposition: HOME SELF-CARE Instructions (If sedation given, give patient instructions): Skin Tear (ED) Additional Instructions: Return to the emergency department with any new, worsening, or concerning symptoms. Take the antibiotic as prescribed for 3 days. Prescriptions: Cephalexin [Keflex] 500 mg PO Q8HR 3 Days #9 cap Is patient prescribed a controlled substance at d/c from ED?: No Referrals: Kristin Emery DO [Primary Care Provider] - 1-2 days
[2022-02-19 07:21] VITALS: PULSE 88; RESP 15
== END 2022-02-19 07:21 | disposition home or self-care (01) ==
LOC: EC 03:39
DX: S61.212A Laceration without foreign body of right middle finger without damage to nail, initial encounter (principal); J44.9 Chronic obstructive pulmonary disease, unspecified; E11.9 Type 2 diabetes mellitus without complications; E78.5 Hyperlipidemia, unspecified; I10 Essential (primary) hypertension; F17.200 Nicotine dependence, unspecified, uncomplicated; Z88.8 Allergy status to other drugs, medicaments and biological substances; Z86.73 Personal history of transient ischemic attack (TIA), and cerebral infarction without residual deficits; W26.8XXA Contact with other sharp object(s), not elsewhere classified, initial encounter

== ENCOUNTER 2022-03-27 06:08 | Inpatient (IN) | payer MEDICARE ==
[2022-03-27 06:45] LABS: Anisocytosis Moderate; Basophils # (A) 0.1 k/uL (0-0.2); Basophils % (A) 1 %; Eosinophils # (A) 0.1 k/uL (0-0.7); Eosinophils % (A) 1 %; HCT 36.5 % (39.0-53.0); HGB 11.4 gm/dL (13.0-17.5); Hypochromasia Slight; Lymphocytes # (A) 0.7 k/uL (1.0-4.8); Lymphocytes % (A) 9 %; MCH 27.7 pg (25.0-35.0); MCHC 31.2 g/dL (31.0-37.0); MCV 88.8 fL (80.0-100.0); Mean Platelet Volume 7.4; Microcytosis Slight; Monocytes # (A) 0.5 k/uL (0-1.0); Monocytes % (A) 7 %; Neutrophils # (A) 6.3 k/uL (1.3-7.7); Neutrophils % (A) 80 %; Platelet Count 283 k/uL (150-450); RBC 4.11 m/uL (4.30-5.90); RDW 20.9 % (11.5-15.5); WBC 7.9 k/uL (3.8-10.6)
--- NOTE | 2022-03-27 06:47 | ED ---
General Adult HPI - General Chief complaint: Chest Pain Stated complaint: Chest Pain Time Seen by Provider: 03/27/22 06:29 Source: patient, RN/MD, EMS, RN notes reviewed, old records reviewed Mode of arrival: EMS - History of Present Illness Initial comments: 66-year-old male presents to the emergency room with complaints of right leg pain and chest pain for a few weeks. Patient states he stopped taking all his medications because he is going through a divorce and states "I have nothing to live for ". Denies any suicidal ideation. Patient does have a history of atrial fibrillation and states he felt like he was in A. fib and had chest tightness which is why he came to the emergency room. States chest pains feels worse with movement. Patient does have a history of COPD continues to be a pack-a-day smoker. He also has a history of DVT and PE with a [place] filter in place since , has not been taking his coumadin. -: week(s) (3) Location: chest, right, lower extremity Radiation: non-radiation Severity scale (1-10): 10 Quality: constant Consistency: constant Worsens with: immobilization (Chest pain worse with movement) Associated Symptoms: chest pain, fever/chills, malaise Treatments Prior to Arrival: none - Related Data Home Medications Medication Instructions Recorded Confirmed Atorvastatin [Lipitor] 80 mg PO HS 01/09/14 11/14/21 Topiramate [Topamax] 25 mg PO BID 01/09/14 11/14/21 Nortriptyline [Pamelor] 50 mg PO HS 08/15/19 11/14/21 Omeprazole [PriLOSEC] 20 mg PO BID 08/15/19 11/14/21 Loratadine 10 mg PO HS 10/30/19 11/14/21 Metoprolol Succinate (ER) [Toprol 50 mg PO DAILY 02/29/20 11/14/21 XL] Docusate [Colace] 100 mg PO DAILY 05/19/20 11/14/21 Multivitamins, Thera [Multivitamin 1 tab PO DAILY 10/16/20 11/14/21 (formulary)] Celecoxib [CeleBREX] 200 mg PO DAILY 06/02/21 11/14/21 Pioglitazone [Actos] 30 mg PO DAILY 06/02/21 11/14/21 Potassium Chloride [Klor-Con 10 ER] 10 meq PO DAILY 06/02/21 11/14/21 Warfarin [Coumadin] 3 mg PO HS 06/02/21 11/14/21 metFORMIN HCL 500 mg PO BID 06/02/21 11/14/21 Aspirin EC [Ecotrin Low Dose] 81 mg PO DAILY 09/05/21 11/14/21 DULoxetine HCL [Cymbalta] 30 mg PO DAILY 09/07/21 11/14/21 Glimepiride [Amaryl] 4 mg PO AC-BRKFST 09/07/21 11/14/21 Pregabalin [Lyrica] 300 mg PO BID 09/07/21 11/14/21 Nicotine 14Mg/24Hr Patch [Habitrol] 1 patch TRANSDERM DAILY PRN 11/14/21 11/14/21 Previous Rx's Medication Instructions Recorded Furosemide [Lasix] 40 mg PO DAILY #30 tablet 12/29/20 Amiodarone [Cordarone] 100 mg PO DAILY #30 tab 11/15/21 Cephalexin [Keflex] 500 mg PO Q6HR 5 Days #20 cap 11/15/21 lisinopriL [Zestril] 10 mg PO DAILY #30 tab 11/15/21 oxyCODONE-APAP 10-325MG [Percocet 1 each PO Q6H PRN #12 tab 11/15/21 10-325 mg] Levofloxacin [Levaquin] 500 mg PO DAILY 7 Days #7 tab 01/14/22 predniSONE 50 mg PO DAILY #5 tab 01/14/22 Cephalexin [Keflex] 500 mg PO Q8HR 3 Days #9 cap 02/19/22 Allergies Allergy/AdvReac Type Severity Reaction Status Date / Time baclofen Allergy Unknown Verified 02/19/22 03:46 Review of Systems ROS Statement: Those systems with pertinent positive or pertinent negative responses have been documented in the HPI. ROS Other: All systems not noted in ROS Statement are negative. Past Medical History Past Medical History: Atrial Fibrillation, Asthma, COPD, CVA/TIA, Diabetes Mellitus, Deep Vein Thrombosis (DVT), GERD/Reflux, Hyperlipidemia, Hypertension, Neurologic Disorder, Osteoarthritis (OA), Pneumonia, Pulmonary Embolus (PE), Skin Disorder, Vascular Disorder Additional Past Medical History / Comment(s): Pt admitted to [facility] on 11/20/20 with hyperkalemia, hyperglycemia, uncontrolled diabetes. Other hx: Lupus anticoagulant, DVTs bilateral legs, PEs bilateral lungs, pt has zina filter, L AKA/wheelchair bound, NIDDM type II, neuropathy bilateral hands, wound care patient for buttock wound, now healed, TIAs, pneumothorax, past migraines, chronic low back pain, R leg edema at times, varicosities. History of Any Multi-Drug Resistant Organisms: MRSA Date of last positivie culture/infection: 06/04/21 MDRO Source:: Right Leg MRSA Past Surgical History: Adenoidectomy, Appendectomy, Tonsillectomy Additional Past Surgical History / Comment(s): 1980s Zina filter, stents in vessels "in pelvic area", total L hip arthroplasty, vein strippings, colonoscopy. left leg amputation Past Anesthesia/Blood Transfusion Reactions: No Reported Reaction Additional Past Anesthesia/Blood Transfusion Reaction / Comment(s): Pt has received blood in past without reaction. Past Psychological History: No Psychological Hx Reported Smoking Status: Current every day smoker Past Alcohol Use History: None Reported Past Drug Use History: Marijuana - Past Family History Mother Family Medical History: Coronary Artery Disease (CAD), Myocardial Infarction ([place]), Vascular Disorder Additional Family Medical History / Comment(s): heart disease, peripheral vascular disease. Father Family Medical History: Diabetes Mellitus, Renal Disease General Exam Limitations: physical limitation (Left AKA) General appearance: alert, in no apparent distress Respiratory exam: Absent: respiratory distress, accessory muscle use Cardiovascular Exam: Present: regular rate, normal rhythm GI/Abdominal exam: Present: soft. Absent: distended Extremities exam: Present: full ROM, normal capillary refill, other (Abrasion to anterior ceron patient has been dressing with bacitracin ointment, no erythema. Dorsal pedal pulses present). Absent: pedal edema, calf tenderness Back exam: Present: normal inspection. Absent: tenderness, CVA tenderness (R), CVA tenderness (L), rash noted Neurological exam: Present: alert, oriented X3 Psychiatric exam: Present: normal affect, normal mood, depressed. Absent: agitated, homicidal ideation, suicidal ideation Skin exam: Present: warm, dry, normal color. Absent: cyanosis, diaphoretic, petechiae, pallor Course Vital Signs 03/27/22 03/27/22 03/27/22 06:26 07:22 08:43 Temperature 100 F H Pulse Rate 89 80 90 Respiratory 17 18 20 Rate Blood Pressure 170/90 133/94 133/60 O2 Sat by Pulse 97 94 L 94 L Oximetry EKG Findings - EKG Results: EKG: sinus rhythm (Ventricular rate 87, MN interval 0.192, QRS 0.117, QTC 0.428) Medical Decision Making - Medical Decision Making Chest x-rays shows COPD with diffuse interstitial opacities. Appearance similar to slightly improved from January 14 of this year. No evidence of leukocytosis. Patient is positive for coronavirus. Dorsal pedal pulses present to right lower extremity with no noticeable swelling. Negative Homans sign Troponin is elevated likely related to coronavirus. EKG shows sinus rhythm with no ST elevation or concern for an acute [place]. He has not been taking his Coumadin for the past 3 weeks he will be placed on heparin. Patient will be admitted for chest pain, elevated troponin and elevated d-dimer likely related to coronavirus. Did speak with Dr. Wheat, consults were placed to psych and cardiology. Case discussed with Dr. Vizcarra - Lab Data Result diagrams: 03/27/22 06:31 03/27/22 06:31 Lab Results 03/27/22 03/27/22 03/27/22 Range/Units 06:31 06:31 06:31 WBC 7.9 (3.8-10.6) k/uL RBC 4.11 L (4.30-5.90) m/uL Hgb 11.4 L (13.0-17.5) gm/dL Hct 36.5 L (39.0-53.0) % MCV 88.8 (80.0-100.0) fL MCH 27.7 (25.0-35.0) pg MCHC 31.2 (31.0-37.0) g/dL RDW 20.9 H (11.5-15.5) % Plt Count 283 (150-450) k/uL MPV 7.4 Neutrophils % 80 % Lymphocytes % 9 % Monocytes % 7 % Eosinophils % 1 % Basophils % 1 % Neutrophils # 6.3 (1.3-7.7) k/uL Lymphocytes # 0.7 L (1.0-4.8) k/uL Monocytes # 0.5 (0-1.0) k/uL Eosinophils # 0.1 (0-0.7) k/uL Basophils # 0.1 (0-0.2) k/uL Hypochromasia Slight Anisocytosis Moderate Microcytosis Slight PT 11.3 (9.0-12.0) sec INR 1.0 (<1.2) APTT 25.3 (22.0-30.0) sec D-Dimer (<0.60) mg/L FEU Sodium 136 L (137-145) mmol/L Potassium 3.4 L (3.5-5.1) mmol/L Chloride 104 (98-107) mmol/L Carbon Dioxide 22 (22-30) mmol/L Anion Gap 10 mmol/L BUN 19 (9-20) mg/dL Creatinine 0.94 (0.66-1.25) mg/dL Est GFR (CKD-EPI)AfAm >90 (>60 ml/min/1.73 sqM) Est GFR (CKD-EPI)NonAf 86 (>60 ml/min/1.73 sqM) Glucose 239 H (74-99) mg/dL Calcium 7.8 L (8.4-10.2) mg/dL Magnesium 1.6 (1.6-2.3) mg/dL Total Bilirubin 0.4 (0.2-1.3) mg/dL AST 15 L (17-59) U/L ALT 12 (4-49) U/L Alkaline Phosphatase 106 (38-126) U/L Troponin I (0.000-0.034) ng/mL Total Protein 6.2 L (6.3-8.2) g/dL Albumin 2.9 L (3.5-5.0) g/dL Coronavirus (PCR) (Not Detectd) 03/27/22 03/27/22 03/27/22 Range/Units 06:31 07:05 07:21 WBC (3.8-10.6) k/uL RBC (4.30-5.90) m/uL Hgb (13.0-17.5) gm/dL Hct (39.0-53.0) % MCV (80.0-100.0) fL MCH (25.0-35.0) pg MCHC (31.0-37.0) g/dL RDW (11.5-15.5) % Plt Count (150-450) k/uL MPV Neutrophils % % Lymphocytes % % Monocytes % % Eosinophils % % Basophils % % Neutrophils # (1.3-7.7) k/uL Lymphocytes # (1.0-4.8) k/uL Monocytes # (0-1.0) k/uL Eosinophils # (0-0.7) k/uL Basophils # (0-0.2) k/uL Hypochromasia Anisocytosis Microcytosis PT (9.0-12.0) sec INR (<1.2) APTT (22.0-30.0) sec D-Dimer 1.24 H (<0.60) mg/L FEU Sodium (137-145) mmol/L Potassium (3.5-5.1) mmol/L Chloride (98-107) mmol/L Carbon Dioxide (22-30) mmol/L Anion Gap mmol/L BUN (9-20) mg/dL Creatinine (0.66-1.25) mg/dL Est GFR (CKD-EPI)AfAm (>60 ml/min/1.73 sqM) Est GFR (CKD-EPI)NonAf (>60 ml/min/1.73 sqM) Glucose (74-99) mg/dL Calcium (8.4-10.2) mg/dL Magnesium (1.6-2.3) mg/dL Total Bilirubin (0.2-1.3) mg/dL AST (17-59) U/L ALT (4-49) U/L Alkaline Phosphatase (38-126) U/L Troponin I 0.057 H* (0.000-0.034) ng/mL Total Protein (6.3-8.2) g/dL Albumin (3.5-5.0) g/dL Coronavirus (PCR) Detected A (Not Detectd) Disposition Clinical Impression: Chest pain, Noncompliance with medication regimen, COVID-19, Elevated troponin, Depression Disposition: ADMITTED IP TO THIS [facility] Decision Date: 03/27/22 Decision Time: 07:37
[2022-03-27 06:55] LABS: ALT 12 U/L (4-49); AST 15 U/L (17-59); African American GFR (CKD) >90 (>60 ml/min/1.73 sqM); Albumin 2.9 g/dL (3.5-5.0); Alkaline Phosphatase 106 U/L (38-126); Anion Gap 10 mmol/L; Blood Urea Nitrogen 19 mg/dL (9-20); Calcium 7.8 mg/dL (8.4-10.2); Carbon Dioxide 22 mmol/L (22-30); Chloride 104 mmol/L (98-107); Glucose 239 mg/dL (74-99); Magnesium 1.6 mg/dL (1.6-2.3); Non-African American GFR(CKD) 86 (>60 ml/min/1.73 sqM); Potassium 3.4 mmol/L (3.5-5.1); Sodium 136 mmol/L (137-145); Total Bilirubin 0.4 mg/dL (0.2-1.3); Total Protein 6.2 g/dL (6.3-8.2)
[2022-03-27 07:09] LABS: Partial Thromboplastin Time 25.3 sec (22.0-30.0); Prothrombin Time 11.3 sec (9.0-12.0)
[2022-03-27] MEDS ORDERED: ASPIRIN 81 MG PO STA (07:24)
[2022-03-27] MEDS ORDERED: HEPARIN SODIUM 1,000 UN/ML (10ML VL) IV ONE (07:25)
[2022-03-27] MEDS: HEPARIN SOD,PORK IN 0.45% NACL 25,000 UNIT in 0.45% NACL 1 250ML.BAG IV SCH (07:51)
--- NOTE | 2022-03-27 07:55 | XR ---
EXAMINATION TYPE: XR chest 2V DATE OF EXAM: 03/27/2022 COMPARISON: 01/14/2022 HISTORY: 66-year-old male with chest pain TECHNIQUE: AP and lateral views FINDINGS: Heart upper limits of normal in size. Aorta within normal limits. Diffuse interstitial opacities pers ists, similar to slightly improved. Hyperinflation. Similar peaking of the left hemidiaphragm, possib ly scarring. The posterior basilar opacity on the lateral view has improved. No pleural effusion. IMPRESSION: Borderline heart size and COPD. Diffuse interstitial opacities. The appearance is similar to slightly improved from 01/14/2022. Query atypical pneumonias or mild interstitial pulmonary edema.
[2022-03-27] MEDS ORDERED: NALOXONE 0.4 MG/ML 1 ML VIAL IV PRN (08:07)
[2022-03-27] MEDS ORDERED: ACETAMINOPHEN TAB 325 MG TAB PO PRN (08:07)
[2022-03-27] MEDS ORDERED: POTASSIUM CHLORIDE ER 20 MEQ TAB.ER PO STA (09:31)
--- NOTE | 2022-03-27 10:09 | P.HPIM ---
History of Present Illness 66-year-old male came in with complaints of fever found to have COVID-19 patient has not been doing well clinically. Patient is quite a bit depressed since he got the worst and stop all his medications he says he basically gave up although he denied any suicidal ideations. Patient does have extensive history with the past medical history of atrial fibrillation on Coumadin starting Coumadin patient also complaining of chest tightness patient has mildly elevated troponins of 0.057. Patient does have history of COPD usually is supposed to wear oxygen history of wearing oxygen as well. History of DVT and pulmonary embolism with Zina filter in the past. Patient is complaining of pain in the right leg patient does have redness in the right leg as well although doesn't appear to be cellulitic. Patient had elevated d-dimer of 1.24. Patient does have history of congestive heart failure with a preserved ejection fraction patient had a normal EF in the past. Patient does have swelling in the right lower extremity patient has a bony amputation on the left side with some swelling as well. Patient is a hypomagnesemic and hypokalemic as well. Chest x-ray did not show any significant pleural effusion that he some venous congestion but this is actually improved compared to his previous chest x-rays. Patient does have mild pleural effusions bilaterally and patient is comparing of pain in the right lower extremity. REVIEW OF SYSTEMS: CONSTITUTIONAL: As mentioned in HPI HEENT: No recent visual problems or hearing problems. Denied any sore throat. CARDIOVASCULAR: Noorthopnea, PND, no palpitations, no syncope. PULMONARY: No shortness of breath, no cough, no hemoptysis. GASTROINTESTINAL: No diarrhea, no nausea, no vomiting, no abdominal pain. NEUROLOGICAL: No headaches, no weakness, no numbness. HEMATOLOGICAL: Denies any bleeding or petechiae. GENITOURINARY: Denies any burning micturition, frequency, or urgency. MUSCULOSKELETAL/RHEUMATOLOGICAL: Denies any joint pain, swelling, or any muscle pain. ENDOCRINE: Denies any polyuria or polydipsia. The rest of the 14-point review of systems is negative. PHYSICAL EXAMINATION: GENERAL: The patient is alert and oriented x3, not in any acute distress. Well developed, well nourished. HEENT: Pupils are round and equally reacting to light. EOMI. No scleral icterus. No conjunctival pallor. Normocephalic, atraumatic. No pharyngeal erythema. No thyromegaly. CARDIOVASCULAR: S1 and S2 present. No murmurs, rubs, or gallops. PULMONARY: Bilateral rhonchi ABDOMEN: Soft, nontender, nondistended, normoactive bowel sounds. No palpable organomegaly. MUSCULOSKELETAL: No joint swelling or deformity. EXTREMITIES: No cyanosis, clubbing, swelling of the right lower exudate as mentioned above left below-knee amputation NEUROLOGICAL: Gross neurological examination did not reveal any focal deficits. SKIN: Redness of the right lower extremity Assessment and plan -Chest pain: Patient has mildly elevated troponin patient had history of pulmonary embolism in the past taking his Coumadin is a high concern for PE will obtain a CT angios the chest to rule out pulmonary embolism patient has elevated d-dimer patient is also complaining of pain in the right leg will obtain an Doppler of the right lower extremity to see if there is any DVT. -COVID-19 infection patient is presently not hypoxic -Atrial fibrillation paroxysmal patient is presently rate controlled Coumadin will be started back patient is on IV heparin at this time -History of DVT in the past pulmonary embolism in the past -COPD without any acute exacerbation -Hypomagnesemia: Magnesium will be replaced -O kalemia potassium will be replaced -Mildly elevated troponin rule out a non-ST elevation [place], and there is a possibility of pulmonary embolism. Cardiology was consulted -Type 2 diabetes mellitus patient stopped taking his medications blood sugars are high and uncontrolled because of that reason patient will be resumed on his medications along with sliding scale Actos will be held temporarily -Hyperlipidemia -Hypertension -Peripheral vascular disease DVT prophylaxis: On IV heparin as mentioned above Past Medical History Past Medical History: Atrial Fibrillation, Asthma, COPD, CVA/TIA, Diabetes Mellitus, Deep Vein Thrombosis (DVT), GERD/Reflux, Hyperlipidemia, Hypertension, Neurologic Disorder, Osteoarthritis (OA), Pneumonia, Pulmonary Embolus (PE), Skin Disorder, Vascular Disorder Additional Past Medical History / Comment(s): Pt admitted to [facility] on 11/20/20 with hyperkalemia, hyperglycemia, uncontrolled diabetes. Other hx: Lupus anticoagulant, DVTs bilateral legs, PEs bilateral lungs, pt has zina filter, L AKA/wheelchair bound, NIDDM type II, neuropathy bilateral hands, wound care patient for buttock wound, now healed, TIAs, pneumothorax, past migraines, chronic low back pain, R leg edema at times, varicosities. History of Any Multi-Drug Resistant Organisms: MRSA Date of last positivie culture/infection: 06/04/21 MDRO Source:: Right Leg MRSA Past Surgical History: Adenoidectomy, Appendectomy, Tonsillectomy Additional Past Surgical History / Comment(s): 1980s [place] filter, stents in vessels "in pelvic area", total L hip arthroplasty, vein strippings, colonoscopy. left leg amputation Past Anesthesia/Blood Transfusion Reactions: No Reported Reaction Additional Past Anesthesia/Blood Transfusion Reaction / Comment(s): Pt has received blood in past without reaction. Past Psychological History: No Psychological Hx Reported Smoking Status: Current every day smoker Past Alcohol Use History: None Reported Past Drug Use History: Marijuana - Past Family History Mother Family Medical History: Coronary Artery Disease (CAD), Myocardial Infarction ([place]), Vascular Disorder Additional Family Medical History / Comment(s): heart disease, peripheral vascular disease. Father Family Medical History: Diabetes Mellitus, Renal Disease Medications and Allergies Home Medications Medication Instructions Recorded Confirmed Type Atorvastatin [Lipitor] 80 mg PO HS 01/09/14 11/14/21 History Topiramate [Topamax] 25 mg PO BID 01/09/14 11/14/21 History Nortriptyline [Pamelor] 50 mg PO HS 08/15/19 11/14/21 History Omeprazole [PriLOSEC] 20 mg PO BID 08/15/19 11/14/21 History Loratadine 10 mg PO HS 10/30/19 11/14/21 History Metoprolol Succinate (ER) [Toprol 50 mg PO DAILY 02/29/20 11/14/21 History XL] Docusate [Colace] 100 mg PO DAILY 05/19/20 11/14/21 History Multivitamins, Thera [Multivitamin 1 tab PO DAILY 10/16/20 11/14/21 History (formulary)] Furosemide [Lasix] 40 mg PO DAILY #30 tablet 12/29/20 11/14/21 Rx Celecoxib [CeleBREX] 200 mg PO DAILY 06/02/21 11/14/21 History Pioglitazone [Actos] 30 mg PO DAILY 06/02/21 11/14/21 History Potassium Chloride [Klor-Con 10 ER] 10 meq PO DAILY 06/02/21 11/14/21 History Warfarin [Coumadin] 3 mg PO HS 06/02/21 11/14/21 History metFORMIN HCL 500 mg PO BID 06/02/21 11/14/21 History Aspirin EC [Ecotrin Low Dose] 81 mg PO DAILY 09/05/21 11/14/21 History DULoxetine HCL [Cymbalta] 30 mg PO DAILY 09/07/21 11/14/21 History Glimepiride [Amaryl] 4 mg PO AC-BRKFST 09/07/21 11/14/21 History Pregabalin [Lyrica] 300 mg PO BID 09/07/21 11/14/21 History Nicotine 14Mg/24Hr Patch [Habitrol] 1 patch TRANSDERM DAILY PRN 11/14/21 11/14/21 History Amiodarone [Cordarone] 100 mg PO DAILY #30 tab 11/15/21 Rx Cephalexin [Keflex] 500 mg PO Q6HR 5 Days #20 cap 11/15/21 Rx lisinopriL [Zestril] 10 mg PO DAILY #30 tab 11/15/21 Rx oxyCODONE-APAP 10-325MG [Percocet 1 each PO Q6H PRN #12 tab 11/15/21 Rx 10-325 mg] Levofloxacin [Levaquin] 500 mg PO DAILY 7 Days #7 tab 01/14/22 Rx predniSONE 50 mg PO DAILY #5 tab 01/14/22 Rx Cephalexin [Keflex] 500 mg PO Q8HR 3 Days #9 cap 02/19/22 Rx Allergies Allergy/AdvReac Type Severity Reaction Status Date / Time baclofen Allergy Unknown Verified 02/19/22 03:46 Physical Exam Vitals: Vital Signs Temp Pulse Resp BP Pulse Ox 03/27/22 08:43 90 20 133/60 94 L 03/27/22 07:22 80 18 133/94 94 L 03/27/22 06:26 100 F H 89 17 170/90 97 Intake and Output 03/26/22 03/27/22 03/27/22 22:59 06:59 14:59 Other: Weight 90.718 kg Results CBC & Chem 7: 03/27/22 06:31 03/27/22 06:31 Labs: Abnormal Lab Results - Last 24 Hours (Table) 03/27/22 03/27/22 03/27/22 Range/Units 06:31 06:31 06:31 RBC 4.11 L (4.30-5.90) m/uL Hgb 11.4 L (13.0-17.5) gm/dL Hct 36.5 L (39.0-53.0) % RDW 20.9 H (11.5-15.5) % Lymphocytes # 0.7 L (1.0-4.8) k/uL D-Dimer (<0.60) mg/L FEU Sodium 136 L (137-145) mmol/L Potassium 3.4 L (3.5-5.1) mmol/L Glucose 239 H (74-99) mg/dL Calcium 7.8 L (8.4-10.2) mg/dL AST 15 L (17-59) U/L Troponin I 0.057 H* (0.000-0.034) ng/mL Total Protein 6.2 L (6.3-8.2) g/dL Albumin 2.9 L (3.5-5.0) g/dL Coronavirus (PCR) (Not Detectd) 03/27/22 03/27/22 Range/Units 07:05 07:21 RBC (4.30-5.90) m/uL Hgb (13.0-17.5) gm/dL Hct (39.0-53.0) % RDW (11.5-15.5) % Lymphocytes # (1.0-4.8) k/uL D-Dimer 1.24 H (<0.60) mg/L FEU Sodium (137-145) mmol/L Potassium (3.5-5.1) mmol/L Glucose (74-99) mg/dL Calcium (8.4-10.2) mg/dL AST (17-59) U/L Troponin I (0.000-0.034) ng/mL Total Protein (6.3-8.2) g/dL Albumin (3.5-5.0) g/dL Coronavirus (PCR) Detected A (Not Detectd)
[2022-03-27 11:39] LABS: Glucose,Whole Blood 138 mg/dL (70-110)
[2022-03-27] MEDS: INSULIN ASPART (NovoLOG) 100 UNIT/ML VIAL SQ SCH ×3 (11:52→20:37)
[2022-03-27] MEDS: oxyCODONE-APAP 10-325MG 1 EACH TAB PO PRN ×2 (12:13→17:50)
[2022-03-27] MEDS: TOPIRAMATE 25 MG TAB PO SCH ×2 (12:14→20:42)
[2022-03-27] MEDS: METOPROLOL SUCCINATE (ER) 50 MG TAB.ER.24H PO SCH (12:15)
[2022-03-27] MEDS: FUROSEMIDE 10 MG/ML 4 ML VIAL IV SCH (12:15)
[2022-03-27] MEDS: MAGNESIUM SULFATE-D5W PMX 1 GM in DEXTROSE/WATER 1 100ML.BAG IVPB SCH ×2 (12:15→14:15)
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
--- NOTE | 2022-03-27 14:15 | US ---
EXAMINATION TYPE: US venous doppler duplex LE RT DATE OF EXAM: 03/27/2022 10:02 AM COMPARISON: NONE CLINICAL HISTORY: 66-year-old male DVT. Right leg pain, redness SIDE PERFORMED: Right TECHNIQUE: The lower extremity deep venous system is examined utilizing real time linear array sonog andrea with graded compression, doppler sonography and color-flow sonography. FINDINGS: VESSELS IMAGED: Common Femoral Vein Deep Femoral Vein Greater Saphenous Vein * Femoral Vein Popliteal Vein Small Saphenous Vein * Proximal Calf Veins (* superficial vessels) Right Leg: Negative for DVT IMPRESSION: No evidence for DVT within the right lower extremity imaged from the groin to the upper calf.
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
[2022-03-27 17:31] LABS: Glucose,Whole Blood 224 mg/dL (70-110)
[2022-03-27] MEDS: HEPARIN SODIUM 1,000 UN/ML (10ML VL) IV PRN (17:48)
[2022-03-27 20:36] LABS: Glucose,Whole Blood 140 mg/dL (70-110)
[2022-03-27] MEDS: ATORVASTATIN 80 MG TAB PO SCH (20:42)
[2022-03-27] MEDS: PREGABALIN 100 MG CAP PO SCH (20:42)
[2022-03-27] MEDS ORDERED: WARFARIN 3 MG TAB PO SCH (21:00)
[2022-03-28] MEDS: DULoxetine HCL 20 MG CAPSULE.DR PO SCH ×3 (00:20→21:08)
[2022-03-28] MEDS: HEPARIN SODIUM 1,000 UN/ML (10ML VL) IV PRN (01:11)
[2022-03-28 06:43] LABS: Anisocytosis Moderate; HCT 35.6 % (39.0-53.0); HGB 11.5 gm/dL (13.0-17.5); Hypochromasia Slight; MCH 28.6 pg (25.0-35.0); MCHC 32.1 g/dL (31.0-37.0); MCV 89.1 fL (80.0-100.0); Mean Platelet Volume 7.8; Microcytosis Slight; Platelet Count 277 k/uL (150-450); RDW 21.1 % (11.5-15.5); WBC 4.5 k/uL (3.8-10.6)
[2022-03-28 06:51] LABS: Partial Thromboplastin Time 81.1 sec (22.0-30.0)
[2022-03-28 06:51] LABS: Glucose,Whole Blood 132 mg/dL (70-110)
[2022-03-28] MEDS: INSULIN ASPART (NovoLOG) 100 UNIT/ML VIAL SQ SCH ×4 (06:52→21:08)
[2022-03-28] MEDS: GLIMEPIRIDE 4 MG TAB PO SCH (06:55)
[2022-03-28 07:27] LABS: African American GFR (CKD) >90 (>60 ml/min/1.73 sqM); Anion Gap 6 mmol/L; Carbon Dioxide 24 mmol/L (22-30); Chloride 103 mmol/L (98-107); Glucose 132 mg/dL (74-99); Non-African American GFR(CKD) >90 (>60 ml/min/1.73 sqM); Potassium 3.5 mmol/L (3.5-5.1); Sodium 133 mmol/L (137-145)
[2022-03-28 07:28] LABS: Blood Urea Nitrogen 15 mg/dL (9-20); Calcium 7.3 mg/dL (8.4-10.2); Magnesium 2.1 mg/dL (1.6-2.3)
[2022-03-28] MEDS ORDERED: DULoxetine HCL 30 MG CAPSULE.DR PO SCH (09:00)
[2022-03-28] MEDS ORDERED: ENOXAPARIN 40 MG/0.4 ML SYRINGE SQ SCH (09:00)
[2022-03-28] MEDS ORDERED: POTASSIUM CHLORIDE ER 20 MEQ TAB.ER PO STA (09:41)
[2022-03-28] MEDS: HEPARIN SOD,PORK IN 0.45% NACL 25,000 UNIT in 0.45% NACL 1 250ML.BAG IV SCH (10:26)
[2022-03-28] MEDS: METOPROLOL SUCCINATE (ER) 50 MG TAB.ER.24H PO SCH (10:27)
[2022-03-28] MEDS: oxyCODONE-APAP 10-325MG 1 EACH TAB PO PRN (10:27)
[2022-03-28] MEDS: PREGABALIN 100 MG CAP PO SCH ×2 (10:27→21:06)
[2022-03-28] MEDS: TOPIRAMATE 25 MG TAB PO SCH ×2 (10:28→21:08)
[2022-03-28] MEDS: MELOXICAM 7.5 MG TAB PO SCH (10:28)
[2022-03-28] MEDS: FUROSEMIDE 10 MG/ML 4 ML VIAL IV SCH (10:29)
[2022-03-28 11:50] LABS: Glucose,Whole Blood 247 mg/dL (70-110)
--- NOTE | 2022-03-28 13:05 | P.CRDCN ---
History of Present Illness Consult date: 03/28/22 History of present illness: CHIEF COMPLAINT: Chest pain HISTORY OF PRESENT ILLNESS: This is a 66-year-old male with a past medical history significant for hypertension, hyperlipidemia, diabetes, recurrent DVTs, chronic nonhealing ulcer of right lower extremity, and paroxysmal atrial fibrillation. Patient follows in the office with Dr. Heaton. We have been asked to see the patient in consultation for elevated troponin. Patient examined at the bedside. Patient states he came to the hospital due to chest pain. Patient was found to be positive for Covid. He denies any further episodes of chest pain. He denies SOB. He reports depression and stopped taking all of his medications about 3 weeks ago. * EKG reveals sinus mechanism with no signs of acute ischemia * Chest xray borderline heart size and COPD. * Laboratory data: WBC 5.7. Hemoglobin 11.5. Platelet count 277. Sodium 133. Potassium 3.5. BUN 15. Creatinine 0.83. Troponin 0.057. 0.036. * Current home cardiac medications include lisinopril 20 mg daily, warfarin 3 mg at night, metoprolol succinate 50 mg daily, Lasix 40 mg daily, Lipitor 80 mg at night, aspirin 81 mg daily, and amiodarone 200 mg daily * Most recent echocardiogram obtained in November 2021 revealed ejection fraction 55- 60%, trace MR, trace TR * Patient underwent Lexiscan stress test in November 2019 which was negative for ischemia REVIEW OF SYSTEMS: Thorough review of systems not completed secondary to limited evaluation/examination due to Covid19 PHYSICAL EXAM: Thorough physical exam not completed secondary to limited evaluation/examination due to Covid19 ASSESSMENT: Chest pain, ACS ruled out Acute Covid 19 Abnormal troponins, not suggestive of acute coronary syndrome Hypertension Hyperlipidemia Diabetes Recurrent DVTs History of nonhealing ulcer of right lower extremity History of left [id number] amputation Paroxysmal atrial fibrillation Medication noncompliance Subtherapeutic INR Depression PLAN: No need to repeat echo Resume home cardiac medications Continue Coumadin. Monitor INR. Continue IV heparin until INR is therapeutic Further recommendations pending patient course Nurse practitioner note has been reviewed by physician. Signing provider agrees with the documented findings, assessment, and plan of care. Past Medical History Past Medical History: Atrial Fibrillation, Asthma, COPD, CVA/TIA, Diabetes Mellitus, Deep Vein Thrombosis (DVT), GERD/Reflux, Hyperlipidemia, Hypertension, Neurologic Disorder, Osteoarthritis (OA), Pneumonia, Pulmonary Embolus (PE), Skin Disorder, Vascular Disorder Additional Past Medical History / Comment(s): Pt admitted to [facility] on 11/20/20 with hyperkalemia, hyperglycemia, uncontrolled diabetes. Other hx: Lupus anticoagulant, DVTs bilateral legs, PEs bilateral lungs, pt has zina filter, L AKA/wheelchair bound, NIDDM type II, neuropathy bilateral hands, wound care patient for buttock wound, now healed, TIAs, pneumothorax, past migraines, chronic low back pain, R leg edema at times, varicosities. History of Any Multi-Drug Resistant Organisms: MRSA Date of last positivie culture/infection: 06/04/21 MDRO Source:: Right Leg MRSA Past Surgical History: Adenoidectomy, Appendectomy, Tonsillectomy Additional Past Surgical History / Comment(s): 1980s [place] filter, stents in vessels "in pelvic area", total L hip arthroplasty, vein strippings, colonoscopy. left leg amputation Past Anesthesia/Blood Transfusion Reactions: No Reported Reaction Additional Past Anesthesia/Blood Transfusion Reaction / Comment(s): Pt has received blood in past without reaction. Past Psychological History: No Psychological Hx Reported Smoking Status: Current every day smoker Past Alcohol Use History: None Reported Past Drug Use History: Marijuana - Past Family History Mother Family Medical History: Coronary Artery Disease (CAD), Myocardial Infarction ([place]), Vascular Disorder Additional Family Medical History / Comment(s): heart disease, peripheral vascular disease. Father Family Medical History: Diabetes Mellitus, Renal Disease Medications and Allergies Home Medications Medication Instructions Recorded Confirmed Type Atorvastatin [Lipitor] 80 mg PO HS 01/09/14 03/27/22 History Topiramate [Topamax] 25 mg PO BID 01/09/14 03/27/22 History Nortriptyline [Pamelor] 50 mg PO HS 08/15/19 03/27/22 History Omeprazole [PriLOSEC] 20 mg PO BID 08/15/19 03/27/22 History Loratadine 10 mg PO HS 10/30/19 03/27/22 History Metoprolol Succinate (ER) [Toprol 50 mg PO DAILY 02/29/20 03/27/22 History XL] Docusate [Colace] 100 mg PO DAILY 05/19/20 03/27/22 History Multivitamins, Thera [Multivitamin 1 tab PO DAILY 10/16/20 03/27/22 History (formulary)] Furosemide [Lasix] 40 mg PO DAILY #30 tablet 12/29/20 03/27/22 Rx Celecoxib [CeleBREX] 200 mg PO DAILY 06/02/21 03/27/22 History Pioglitazone [Actos] 30 mg PO DAILY 06/02/21 03/27/22 History Potassium Chloride [Klor-Con 10 ER] 10 meq PO DAILY 06/02/21 03/27/22 History Warfarin [Coumadin] 3 mg PO HS 06/02/21 03/27/22 History metFORMIN HCL 500 mg PO BID 06/02/21 03/27/22 History Aspirin EC [Ecotrin Low Dose] 81 mg PO DAILY 09/05/21 03/27/22 History DULoxetine HCL [Cymbalta] 30 mg PO DAILY 09/07/21 03/27/22 History Glimepiride [Amaryl] 4 mg PO AC-BRKFST 09/07/21 03/27/22 History Pregabalin [Lyrica] 300 mg PO BID 09/07/21 03/27/22 History Nicotine 14Mg/24Hr Patch [Habitrol] 1 patch TRANSDERM DAILY PRN 11/14/21 03/27/22 History Amiodarone [Cordarone] 200 mg PO DAILY 03/27/22 03/27/22 History lisinopriL [Zestril] 20 mg PO DAILY 03/27/22 03/27/22 History Allergies Allergy/AdvReac Type Severity Reaction Status Date / Time baclofen Allergy Unknown Verified 02/19/22 03:46 Physical Exam Vitals: Vital Signs Temp Pulse Pulse Resp BP BP Pulse Ox 03/28/22 09:05 98.3 F 65 16 112/62 93 L 03/28/22 08:25 96 03/28/22 04:19 98.2 F 60 16 115/56 97 03/28/22 00:08 97.8 F 64 18 115/62 97 03/27/22 19:54 98.2 F 76 20 99/64 96 03/27/22 16:45 98.4 F 72 20 116/64 95 Intake and Output 03/27/22 03/28/22 03/28/22 22:59 06:59 14:59 Intake Total 580.5 149.500 668 Output Total 1200 Balance -619.5 149.500 668 Intake: Intake, IV Titration 100.5 149.500 Amount Heparin Sod,Pork in 0.45% 100.5 149.500 NaCl 25,000 unit In 0.45 % NaCl 1 250ml.bag @ 11. 023 UNITS/KG/HR 10 mls/hr IV .Q24H [facility] Rx#: [id number] Oral 480 668 Output: Urine 1200 Other: Voiding Method Diaper Diaper Diaper External Catheter External Catheter External Catheter # Voids 0 Weight 98.5 kg Results 03/28/22 06:20 03/28/22 06:20 Cardiac Enzymes 03/28/22 Range/Units 06:20 Troponin I 0.036 H* (0.000-0.034) ng/mL Coagulation 03/27/22 03/28/22 03/28/22 Range/Units 14:00 00:14 06:20 PT 11.0 (9.0-12.0) sec APTT 34.4 H 28.1 81.1 H (22.0-30.0) sec CBC 03/28/22 Range/Units 06:20 WBC 4.5 (3.8-10.6) k/uL RBC 4.00 L (4.30-5.90) m/uL Hgb 11.5 L (13.0-17.5) gm/dL Hct 35.6 L (39.0-53.0) % Plt Count 277 (150-450) k/uL Comprehensive Metabolic Panel 03/28/22 Range/Units 06:20 Sodium 133 L (137-145) mmol/L Potassium 3.5 (3.5-5.1) mmol/L Chloride 103 (98-107) mmol/L Carbon Dioxide 24 (22-30) mmol/L BUN 15 (9-20) mg/dL Creatinine 0.83 (0.66-1.25) mg/dL Glucose 132 H (74-99) mg/dL Calcium 7.3 L (8.4-10.2) mg/dL Current Medications Generic Name Dose Route Start Last Admin Trade Name Freq PRN Reason Stop Dose Admin Acetaminophen 650 mg 03/27/22 08:07 Acetaminophen Tab 325 Mg Tab PO Q6HR PRN Mild Pain or Fever > 100.5 Atorvastatin Calcium 80 mg 03/27/22 21:00 03/27/22 20:42 Atorvastatin 80 Mg Tab PO 80 mg HS HELENE Administration Duloxetine HCl 20 mg 03/27/22 22:00 03/28/22 10:28 Duloxetine Hcl 20 Mg Capsule.Dr PO 20 mg BID HELENE Administration Furosemide 40 mg 03/27/22 10:15 03/28/22 10:29 Furosemide 10 Mg/Ml 4 Ml Vial IV 40 mg DAILY HELENE Administration Glimepiride 4 mg 03/28/22 07:30 03/28/22 06:55 Glimepiride 4 Mg Tab PO 4 mg AC-BRKFST HELENE Administration Heparin Sodium (Porcine) 0 unit 03/27/22 07:25 03/28/22 01:11 Heparin Sodium 1,000 Un/Ml (10ml Vl) IV 4,900 unit PER PROTOCOL PRN Administration Low PTT Protocol Heparin Sodium/Sodium Chloride 250 mls @ 10 mls/hr 03/27/22 07:30 03/28/22 10:26 25,000 unit/ Sodium Chloride IV 17.02 units/kg/hr .Q24H HELENE 15.44 mls/hr Administration Protocol 11.023 UNITS/KG/HR Insulin Aspart 0 unit 03/27/22 12:30 03/28/22 06:52 Insulin Aspart (Novolog) 100 Unit/Ml Vial SQ Not Given ACHS HELENE Protocol Meloxicam 7.5 mg 03/28/22 09:00 03/28/22 10:28 Meloxicam 7.5 Mg Tab PO 7.5 mg DAILY HELENE Administration Metoprolol Succinate 50 mg 03/27/22 09:30 03/28/22 10:27 Metoprolol Succinate (Er) 50 Mg Tab.Er.24h PO 50 mg DAILY HELENE Administration Miscellaneous Information 0 each 03/27/22 09:36 Warfarin Per Pharmacy MISCELLANE DIRECTED PRN PHARMACY DOSING PROTOCOL Naloxone HCl 0.2 mg 03/27/22 08:07 Naloxone 0.4 Mg/Ml 1 Ml Vial IV Q2M PRN Opioid Reversal Oxycodone/Acetaminophen 1 each 03/27/22 10:00 03/28/22 10:27 Oxycodone-Apap 10-325mg 1 Each Tab PO 1 each Q6H PRN Administration Pain Pregabalin 300 mg 03/27/22 21:00 03/28/22 10:27 Pregabalin 100 Mg Cap PO 300 mg BID HELENE Administration Topiramate 25 mg 03/27/22 09:30 03/28/22 10:28 Topiramate 25 Mg Tab PO 25 mg BID HELENE Administration Warfarin Sodium 4 mg 03/28/22 21:00 Warfarin 2 Mg Tab PO 03/28/22 21:01 ONCE ONE Intake and Output 03/27/22 03/28/22 03/28/22 22:59 06:59 14:59 Intake Total 580.5 149.500 668 Output Total 1200 Balance -619.5 149.500 668 Intake: Intake, IV Titration 100.5 149.500 Amount Heparin Sod,Pork in 0.45% 100.5 149.500 NaCl 25,000 unit In 0.45 % NaCl 1 250ml.bag @ 11. 023 UNITS/KG/HR 10 mls/hr IV .Q24H [facility] Rx#: [id number] Oral 480 668 Output: Urine 1200 Other: Voiding Method Diaper Diaper Diaper External Catheter External Catheter External Catheter # Voids 0 Weight 98.5 kg 03/28/22 06:20 03/28/22 06:20
--- NOTE | 2022-03-28 15:46 | P.PN ---
Subjective Progress Note Date: 03/28/22 66-year-old male came in with complaints of fever found to have COVID-19 patient has not been doing well clinically. Patient is quite a bit depressed since he got the worst and stop all his medications he says he basically gave up although he denied any suicidal ideations. Patient does have extensive history with the past medical history of atrial fibrillation on Coumadin starting Coumadin patient also complaining of chest tightness patient has mildly elevated troponins of 0.057. Patient does have history of COPD usually is supposed to wear oxygen history of wearing oxygen as well. History of DVT and pulmonary embolism with [place] filter in the past. Patient is complaining of pain in the right leg patient does have redness in the right leg as well although doesn't appear to be cellulitic. Patient had elevated d-dimer of 1.24. Patient does have history of congestive heart failure with a preserved ejection fraction patient had a normal EF in the past. Patient does have swelling in the right lower extremity patient has a bony amputation on the left side with some swelling as well. Patient is a hypomagnesemic and hypokalemic as well. Chest x-ray did not show any significant pleural effusion that he some venous congestion but this is actually improved compared to his previous chest x-rays. Patient does have mild pleural effusions bilaterally and patient is comparing of pain in the right lower extremity. 03/28/2022 Patient is evaluated today sitting up at the bedside. No acute events overnight. Denies shortness of breath currently. He continues on IV lasix daily. He cont inues on IV heparin bridge, on coumadin. INR today is 1.0. Patient had not been taking his medications at home. Venous doppler shows no evidence for acute DVT, chest CTA is negative for pulmonary embolism, cardiology has evaluated the patient and recommends on current changes to medications at this time. No plans to repeat echocardiogram. Psychiatry has evaluated the patient and recommended to increase cymbalta. Labs showing hgb 11.5, sodium 133, potassium 3.5, BUN 15, creatinine 0.83, magnesium 2.1. He was found to be positive for covid. Review of Systems Constitutional: Denied any fatigue denied any fever. Cardio vascular: denied any chest pain, palpitations Gastrointestinal: denied any nausea, vomiting, diarrhea Pulmonary: Denied any shortness of breath cough Neurologic denied any new focal deficits All inpatient medications were reviewed and appropriate changes in these medications as dictated in the interval history and assessment and plan. PHYSICAL EXAMINATION: GENERAL: The patient is alert and oriented x3, not in any acute distress. Well developed, well nourished. HEENT: Pupils are round and equally reacting to light. EOMI. No scleral icterus. No conjunctival pallor. Normocephalic, atraumatic. No pharyngeal erythema. No thyromegaly. CARDIOVASCULAR: S1 and S2 present. No murmurs, rubs, or gallops. PULMONARY: Bilateral rhonchi ABDOMEN: Soft, nontender, nondistended, normoactive bowel sounds. No palpable organomegaly. MUSCULOSKELETAL: No joint swelling or deformity. EXTREMITIES: No cyanosis, clubbing, swelling of the right lower exudate as mentioned above left below-knee amputation NEUROLOGICAL: Gross neurological examination did not reveal any focal deficits. SKIN: Redness of the right lower extremity Assessment and plan -Chest pain: Patient has mildly elevated troponin, no evidence for pulmonary embolism or DVT. ACS ruled out. -COVID-19 infection patient is presently not hypoxic -Atrial fibrillation paroxysmal patient is presently rate, Coumadin has been resumed and INR 1.0 will be continued on IV heparin bridge. -History of DVT/PE in the past -COPD without any acute exacerbation -Hypomagnesemia: resolved with magnesium supplement. -hypokalemia potassium will be replaced -Type 2 diabetes mellitus, noncompliant with medications. Patient is resumed on home medication continue with accuchecks. -Hyperlipidemia -Hypertension -Peripheral vascular disease DVT prophylaxis: On IV heparin as mentioned above GI Prophylaxis: No Code Patient has been evaluated by psychiatry, no inpatient treatment recommended and cymbalta has been increased. Cardiology is following and no current medication changes at this time patient has been resumed on home medications. IV lasix will be continued and repeat BMP in the morning. PT/OT has been consulted for discharge planning. Adjust insulin. The impression and plan of care has been dictated by Birgit Russell Nurse Practitioner as directed. Dr. Miguel MD I have performed a history and physical examination and medical decision making of this patient, discussed the same with the dictator, and agree with the dictators assessment and plan as written, documented as a scribe. Based on total visit time, I have performed more than 50% of this visit. Objective - Vital Signs Vital signs: Vital Signs Temp 98.3 F 09/19/22 12:35 Pulse 62 03/28/22 12:35 Resp 16 03/28/22 12:35 BP 126/66 03/28/22 12:35 Pulse Ox 97 03/28/22 12:35 FiO2 Intake & Output 03/27/22 03/28/22 03/28/22 18:59 06:59 18:59 Intake Total 322.5 629.500 668 Output Total 1200 600 Balance -877.5 629.500 68 Weight 98 kg 98.5 kg 98.5 kg Intake: Intake, IV Titration 100.5 149.500 Amount Heparin Sod,Pork in 0.45% 100.5 149.500 NaCl 25,000 unit In 0.45 % NaCl 1 250ml.bag @ 11. 023 UNITS/KG/HR 10 mls/hr IV .Q24H [facility] Rx#: [id number] Oral 222 480 668 Output: Urine 1200 600 Other: Voiding Method Diaper Diaper Diaper External Catheter External Catheter External Catheter # Voids 1 0 - Labs CBC & Chem 7: 03/28/22 06:20 03/28/22 06:20 Labs: Abnormal Lab Results - Last 24 Hours (Table) 03/27/22 03/27/22 03/28/22 Range/Units 17:22 20:33 06:20 RBC 4.00 L (4.30-5.90) m/uL Hgb 11.5 L (13.0-17.5) gm/dL Hct 35.6 L (39.0-53.0) % RDW 21.1 H (11.5-15.5) % APTT (22.0-30.0) sec Sodium (137-145) mmol/L Glucose (74-99) mg/dL POC Glucose (mg/dL) 224 H 140 H (70-110) mg/dL Calcium (8.4-10.2) mg/dL Troponin I (0.000-0.034) ng/mL 03/28/22 03/28/22 03/28/22 Range/Units 06:20 06:20 06:20 RBC (4.30-5.90) m/uL Hgb (13.0-17.5) gm/dL Hct (39.0-53.0) % RDW (11.5-15.5) % APTT 81.1 H (22.0-30.0) sec Sodium 133 L (137-145) mmol/L Glucose 132 H (74-99) mg/dL POC Glucose (mg/dL) (70-110) mg/dL Calcium 7.3 L (8.4-10.2) mg/dL Troponin I 0.036 H* (0.000-0.034) ng/mL 03/28/22 03/28/22 Range/Units 06:45 11:49 RBC (4.30-5.90) m/uL Hgb (13.0-17.5) gm/dL Hct (39.0-53.0) % RDW (11.5-15.5) % APTT (22.0-30.0) sec Sodium (137-145) mmol/L Glucose (74-99) mg/dL POC Glucose (mg/dL) 132 H 247 H (70-110) mg/dL Calcium (8.4-10.2) mg/dL Troponin I (0.000-0.034) ng/mL Assessment and Plan Time with Patient: Less than 30
[2022-03-28 16:49] LABS: Glucose,Whole Blood 130 mg/dL (70-110)
[2022-03-28 20:11] LABS: Glucose,Whole Blood 298 mg/dL (70-110)
[2022-03-28] MEDS ORDERED: WARFARIN 2 MG TAB PO ONE (21:00)
[2022-03-28] MEDS: ATORVASTATIN 80 MG TAB PO SCH (21:07)
[2022-03-29] MEDS ORDERED: ONDANSETRON 4 MG/2 ML VIAL IVP PRN (00:01)
[2022-03-29] MEDS: HEPARIN SOD,PORK IN 0.45% NACL 25,000 UNIT in 0.45% NACL 1 250ML.BAG IV SCH ×2 (04:11→20:08)
[2022-03-29 06:08] LABS: Glucose,Whole Blood 84 mg/dL (70-110)
[2022-03-29] MEDS: INSULIN ASPART (NovoLOG) 100 UNIT/ML VIAL SQ SCH ×4 (06:10→20:07)
[2022-03-29] MEDS: GLIMEPIRIDE 4 MG TAB PO SCH (06:47)
[2022-03-29] MEDS: MELOXICAM 7.5 MG TAB PO SCH (08:49)
[2022-03-29] MEDS: PREGABALIN 100 MG CAP PO SCH ×2 (08:49→20:06)
[2022-03-29] MEDS: METOPROLOL SUCCINATE (ER) 50 MG TAB.ER.24H PO SCH (08:49)
[2022-03-29] MEDS: DULoxetine HCL 20 MG CAPSULE.DR PO SCH ×2 (08:50→20:06)
[2022-03-29] MEDS: FUROSEMIDE 10 MG/ML 4 ML VIAL IV SCH (08:50)
[2022-03-29] MEDS: TOPIRAMATE 25 MG TAB PO SCH ×2 (08:50→20:06)
[2022-03-29] MEDS: AMIODARONE 200 MG TAB PO SCH (08:50)
[2022-03-29] MEDS ORDERED: lisinopriL 20 MG TAB PO SCH (09:00)
[2022-03-29 09:34] LABS: African American GFR (CKD) >90 (>60 ml/min/1.73 sqM); Anion Gap 6 mmol/L; Blood Urea Nitrogen 17 mg/dL (9-20); Calcium 7.2 mg/dL (8.4-10.2); Carbon Dioxide 25 mmol/L (22-30); Chloride 100 mmol/L (98-107); Glucose 133 mg/dL (74-99); Non-African American GFR(CKD) 79 (>60 ml/min/1.73 sqM); Sodium 131 mmol/L (137-145)
[2022-03-29 09:41] LABS: Prothrombin Time 10.4 sec (9.0-12.0)
--- NOTE | 2022-03-29 12:26 | P.PN ---
Subjective Progress Note Date: 03/29/22 CHIEF COMPLAINT: Chest pain HISTORY OF PRESENT ILLNESS: This is a 66-year-old male with a past medical history significant for hypertension, hyperlipidemia, diabetes, recurrent DVTs, chronic nonhealing ulcer of right lower extremity, and paroxysmal atrial fibrillation. Patient follows in the office with Dr. Heaton. We have been asked to see the patient in consultation for elevated troponin. Patient examined at the bedside. Patient states he came to the hospital due to chest pain. Patient was found to be positive for Covid. He denies any further episodes of chest pain. He denies SOB. He reports depression and stopped taking all of his medications about 3 weeks ago. * EKG reveals sinus mechanism with no signs of acute ischemia * Chest xray borderline heart size and COPD. * Laboratory data: WBC 5.7. Hemoglobin 11.5. Platelet count 277. Sodium 133. Potassium 3.5. BUN 15. Creatinine 0.83. Troponin 0.057. 0.036. * Current home cardiac medications include lisinopril 20 mg daily, warfarin 3 mg at night, metoprolol succinate 50 mg daily, Lasix 40 mg daily, Lipitor 80 mg at night, aspirin 81 mg daily, and amiodarone 200 mg daily * Most recent echocardiogram obtained in November 2021 revealed ejection fraction 55- 60%, trace MR, trace TR * Patient underwent Lexiscan stress test in November 2019 which was negative for ischemia 03/29/2022 Patient remains hospitalized on 3S. No complaints of chest pain or pressure. Denies SOB. He remains on IV lasix. INR today is 1.0. He remains on IV heparin until his INR is therapeutic. He is receiving Coumadin. Vital signs are stable. Systolic blood pressure in the 90s. PHYSICAL EXAM: Thorough physical exam not completed secondary to limited evaluation/examination due to Covid19 ASSESSMENT: Chest pain, ACS ruled out Acute Covid 19 Abnormal troponins, not suggestive of acute coronary syndrome Hypertension Hyperlipidemia Diabetes Recurrent DVTs History of nonhealing ulcer of right lower extremity History of left [id number] amputation Paroxysmal atrial fibrillation Medication noncompliance Subtherapeutic INR Depression PLAN: Continue current cardiac medications Discontinue IV Lasix. Transition to oral dosing. Change lisinopril to twice a day dosing instead of once daily secondary to soft blood pressures. Continue Coumadin. Monitor INR. Continue IV heparin until INR is therapeutic Prescription for Eliquis was sent to the pharmacy for case management to check coverage. If patient is covered for Eliquis, will discontinue Coumadin and begin Eliquis. Further recommendations pending patient course Nurse practitioner note has been reviewed by physician. Signing provider agrees with the documented findings, assessment, and plan of care. Objective - Vital Signs Vital signs: Vital Signs Temp 97.8 F 03/29/22 09:06 Pulse 57 L 03/29/22 11:13 Resp 16 03/29/22 11:13 BP 98/63 03/29/22 11:13 Pulse Ox 100 03/29/22 11:13 FiO2 Intake & Output 03/28/22 03/29/22 03/29/22 18:59 06:59 18:59 Intake Total 668 289.372 118 Output Total 600 800 Balance 68 289.372 -682 Weight 98.5 kg 101 kg Intake: Intake, IV Titration 289.372 Amount Heparin Sod,Pork in 0.45% 289.372 NaCl 25,000 unit In 0.45 % NaCl 1 250ml.bag @ 11. 023 UNITS/KG/HR 10 mls/hr IV .Q24H [facility] Rx#: [id number] Oral 668 118 Output: Urine 600 800 Other: Voiding Method Diaper Diaper External Catheter External Catheter External Catheter - Labs CBC & Chem 7: 03/28/22 06:20 03/29/22 08:32 Labs: Abnormal Lab Results - Last 24 Hours (Table) 03/28/22 03/28/22 03/29/22 Range/Units 16:39 20:05 08:32 Sodium 131 L (137-145) mmol/L Glucose 133 H (74-99) mg/dL POC Glucose (mg/dL) 130 H 298 H (70-110) mg/dL Calcium 7.2 L (8.4-10.2) mg/dL
[2022-03-29 12:28] LABS: Glucose,Whole Blood 95 mg/dL (70-110)
--- NOTE | 2022-03-29 14:33 | CDI ---
Documentation Clarification Form Date: 03/29/2022 02:17:17 PM From: Alessandra Beard CCS, CCDS Admit Date: 03/27/2022 07:34:00 AM Patient Name: Checo Quijano Visit Number: [id number] Discharge Date: ATTENTION: The Clinical Documentation Specialists (CDI) and [facility] Coding Staff appreciate your assistance in clarifying documentation. Please respond to the clarification below the line at the bottom and electronically sign. The CDI & [facility] Coding staff will review the response and follow-up if needed. Please note: Queries are made part of the Legal Health Record. If you have any questions, please contact the author of this message via ITS. Dr. Samantha Rivera: Congestive Heart Failure is documented in the 03/27 H/P and in the subsequent Attending Physician progress note: Patient does have history of CHF with a preserved ejection fraction and normal EF in the past. Congestive Heart Failure is not documented by the Process Manufacturing Engineer on Consult. Additional information regarding the Type & Acuity of CHF is requested. History/Risk Factors per the 03/27 H/P: Atrial Fibrillation on Coumadin, Asthma, COPD, CVA/TIA, DM, DVT, PE, GERD, Hyperlipidemia, Hypertension, Neuropathic Pain, Osteoarthritis, Pneumonia, IDDM II, Left AKA, MRSA rt leg, PVD with [place] filter and stents, Current Smoker. Clinical Indicators: Presented to the ED on 03/27 via EMS with Chest Pain and Right Leg Pain for a few weeks. Patient stopped taking all of his medications because he is going through a divorce and stated he "had nothing to live for." Admit with Chest pain, Noncompliance with medication regimen, COVID 19, Elevated Troponin and Depression 03/27 VS: T 100, P 89, R 16, BP 170/90, PO 97, 94 RA, BMI: 30.2 03/27 LAB: Hgb 11.4, hct 36.5, Lymph 0.7; D Dimer 1.24; Na 136, K 3.4, Glucose 239, Calcium 7.8, AST 15, Troponin 0.057, Total protein 6.2, Albumin 2.9 03/27: BNP 3160 Echocardiogram Results (most recent 11/15/2021): EF estimated at 55-60%, Trace MR, Trace TR. 9/18 CXR: Borderline heart size and COPD. Diffuse interstitial opacities. Query atypical pneumonias or mild interstitial pulmonary edema. 03/27 CT Chest: No PE. COPD w/moderate to advanced emphysema and pulmonary arterial hypertension. Borderline heart size, CAD 3 vessel. Enlarged mediastinal and bilateral hilar lymph nodes. Possible emphysematous cyst with surrounding atelectasis. 03/27 EKG: R 97 sinus rhythm with sinus arrhythmia, Pulmonary disease, Left anterior fascicular block. Treatment 03/27: Heparin drip, O2, po Aspirin 324 mg x1, po Tylenol 650 mg q6H/prn, IV Mag Sulfate/Dextrose 100 mls @ 100 mls/hr q1H, po Toprol, Topamax, D-Dur, Coumadin, Percocet; IV lasix 40 mg Daily. Home meds include po Lasix 40 mg Daily. In your professional opinion, can you please clarify the Type & Acuity of CHF if known? [x ] Chronic Diastolic Heart Failure [ ] Chronic Systolic & Diastolic Heart Failure [ ] Heart Failure is ruled out [ ] Other, please specify [ ] Unable to determine (Template Last Revised: August 2020) MTDD
--- NOTE | 2022-03-29 14:42 | CDI ---
Documentation Clarification Form Date: 03/29/2022 02:34:47 PM From: Alessandra Beard CCS, CCDS Admit Date: 03/27/2022 07:34:00 AM Patient Name: Checo Quijano Visit Number: [id number] Discharge Date: ATTENTION: The Clinical Documentation Specialists (CDI) and [facility] Coding Staff appreciate your assistance in clarifying documentation. Please respond to the clarification below the line at the bottom and electronically sign. The CDI & [facility] Coding staff will review the response and follow-up if needed. Please note: Queries are made part of the Legal Health Record. If you have any questions, please contact the author of this message via ITS. Dr. Samantha Rivera: Diabetes Mellitus is documented in the patient's Medical History beginning in the 03/27 ED Note, the 03/27 H/P and in subsequent Progress Notes. Per the 03/27 H/P: Type 2 Diabetes Mellitus, patient stopped taking his medications, blood sugars are high and uncontrolled because of that, resume medications including sliding scale, Actos will be held temporarily. Additional specificity regarding the Diabetes diagnosis is requested. History/Risk Factors per the 03/27 H/P: Atrial Fibrillation on Coumadin, Asthma, COPD, CVA/TIA, IDDM II, DVT, PE, GERD, Hyperlipidemia, Hypertension, Neuropathic Pain, Osteoarthritis, Pneumonia, IDDM II, Left AKA, MRSA rt leg, PVD with [place] filter and stents, Current Smoker. Clinical Indicators: Presented to the ED on 03/27 via EMS with Chest Pain and Right Leg Pain for a few weeks. Patient stopped taking all of his medications because he is going through a divorce and stated he "had nothing to live for." Admit with Chest pain, Noncompliance with medication regimen, COVID 19, Elevated Troponin and Depression 03/27 VS: T 100, P 89, R 16, BP 170/90, PO 97, 94 RA, BMI: 30.2 03/27 LAB: Hgb 11.4, Hct 36.5, Lymph 0.7; D Dimer 1.24; Na 136, K 3.4, Calcium 7.8, AST 15, Troponin 0.057, Total protein 6.2, Albumin 2.9 Glucose: 03/27: 239, 03/28: 132, 03/29 133. 03/27: BNP 3160 Treatment 03/27: Heparin drip, O2, po Aspirin 324 mg x1, po Tylenol 650 mg q6H/prn, IV Mag Sulfate/Dextrose 100 mls @ 100 mls/hr q1H, po Toprol, Topamax, K-Dur, Coumadin, Percocet; IV Lasix 40 mg Daily. 03/28: po Amaryl 4 mg breakfast. Home meds include po Lasix 40 mg Daily. Please clarify the type of Diabetes, if known: [ x ] Diabetes Type 2 with Hyperglycemia [ ] Diabetes Type 2 without Hyperglycemia [ ] Other, please specify [ ] Unable to Determine (Template Last Revised: September 2020) MTDD
--- NOTE | 2022-03-29 16:11 | P.PN ---
Subjective Progress Note Date: 03/29/22 66-year-old male came in with complaints of fever found to have COVID-19 patient has not been doing well clinically. Patient is quite a bit depressed since he got the worst and stop all his medications he says he basically gave up although he denied any suicidal ideations. Patient does have extensive history with the past medical history of atrial fibrillation on Coumadin starting Coumadin patient also complaining of chest tightness patient has mildly elevated troponins of 0.057. Patient does have history of COPD usually is supposed to wear oxygen history of wearing oxygen as well. History of DVT and pulmonary embolism with Hanna filter in the past. Patient is complaining of pain in the right leg patient does have redness in the right leg as well although doesn't appear to be cellulitic. Patient had elevated d-dimer of 1.24. Patient does have history of congestive heart failure with a preserved ejection fraction patient had a normal EF in the past. Patient does have swelling in the right lower extremity patient has a bony amputation on the left side with some swelling as well. Patient is a hypomagnesemic and hypokalemic as well. Chest x-ray did not show any significant pleural effusion that he some venous congestion but this is actually improved compared to his previous chest x-rays. Patient does have mild pleural effusions bilaterally and patient is comparing of pain in the right lower extremity. 03/28/2022 Patient is evaluated today sitting up at the bedside. No acute events overnight. Denies shortness of breath currently. He continues on IV lasix daily. He cont inues on IV heparin bridge, on coumadin. INR today is 1.0. Patient had not been taking his medications at home. Venous doppler shows no evidence for acute DVT, chest CTA is negative for pulmonary embolism, cardiology has evaluated the patient and recommends on current changes to medications at this time. No plans to repeat echocardiogram. Psychiatry has evaluated the patient and recommended to increase cymbalta. Labs showing hgb 11.5, sodium 133, potassium 3.5, BUN 15, creatinine 0.83, magnesium 2.1. He was found to be positive for covid. 03/29/2022 Patient is evaluated today resting in bed. He reports significant fatigue. He is denying chest pain and denying shortness of breath. He has been transitioned to oral lasix. Blood pressures on the lower side. He continues on nasal cannula support and states he is supposed to be wearing home oxygen. Blood sugars are stable. INR today 1.0, continues on coumadin with IV heparin bridge, [place]wick check completed for fran will follow up with patient if this is something he can afford. Sodium 131. Review of Systems Constitutional: Reports fatigue. denied any fever. Cardio vascular: denied any chest pain, palpitations Gastrointestinal: denied any nausea, vomiting, diarrhea Pulmonary: Denied any shortness of breath cough Neurologic denied any new focal deficits All inpatient medications were reviewed and appropriate changes in these med ications as dictated in the interval history and assessment and plan. PHYSICAL EXAMINATION: GENERAL: The patient is alert and oriented x3, not in any acute distress. Well developed, well nourished. HEENT: Pupils are round and equally reacting to light. EOMI. No scleral icterus. No conjunctival pallor. Normocephalic, atraumatic. No pharyngeal erythema. No thyromegaly. CARDIOVASCULAR: S1 and S2 present. No murmurs, rubs, or gallops. PULMONARY: Lungs are diminished today. ABDOMEN: Soft, nontender, nondistended, normoactive bowel sounds. No palpable organomegaly. MUSCULOSKELETAL: No joint swelling or deformity. EXTREMITIES: No cyanosis, clubbing, swelling of the right lower exudate as me ntioned above left below-knee amputation NEUROLOGICAL: Gross neurological examination did not reveal any focal deficits. SKIN: Redness of the right lower extremity Assessment and plan -Chest pain: Patient has mildly elevated troponin, no evidence for pulmonary embolism or DVT. ACS ruled out. -COVID-19 infection patient is presently not hypoxic -Atrial fibrillation paroxysmal patient is presently rate, Coumadin has been resumed and INR 1.0 will be continued on IV heparin bridge. -History of DVT/PE in the past -COPD without any acute exacerbation -Hypomagnesemia: resolved with magnesium supplement. -hypokalemia potassium will be replaced -Type 2 diabetes mellitus, noncompliant with medications. Patient is resumed on home medication continue with accuchecks. -Hyperlipidemia -Hypertension -Peripheral vascular disease -Generalized weakness and medical debility -Depression DVT prophylaxis: On IV heparin as mentioned above GI Prophylaxis: No Code Patient has been evaluated by psychiatry, no inpatient treatment recommended and cymbalta has been increased. Cardiology following and lasix has been changed to oral, lisinopril dose adjusted. Checking TSH and vitamin D level patient reports significant fatigue currently. Unwilling to work with PT today due to feeling tired. Repeat BMP in the AM. Possible DC in the next 24 to 48 hours. The impression and plan of care has been dictated by Birgit Russell, Nurse Practitioner as directed. Dr. Miguel MD I have performed a history and physical examination and medical decision making of this patient, discussed the same with the dictator, and agree with the dictators assessment and plan as written, documented as a scribe. Based on total visit time, I have performed more than 50% of this visit. Objective - Vital Signs Vital signs: Vital Signs Temp 97.8 F 03/29/22 09:06 Pulse 61 03/29/22 15:49 Resp 15 03/29/22 15:49 BP 138/74 03/29/22 15:49 Pulse Ox 99 03/29/22 15:49 FiO2 Intake & Output 03/28/22 03/29/22 03/29/22 18:59 06:59 18:59 Intake Total 668 289.372 118 Output Total 600 800 Balance 68 289.372 -682 Weight 98.5 kg 101 kg Intake: Intake, IV Titration 289.372 Amount Heparin Sod,Pork in 0.45% 289.372 NaCl 25,000 unit In 0.45 % NaCl 1 250ml.bag @ 11. 023 UNITS/KG/HR 10 mls/hr IV .Q24H [facility] Rx#: [id number] Oral 668 118 Output: Urine 600 800 Other: Voiding Method Diaper Diaper External Catheter External Catheter External Catheter # Bowel Movements 1 - Labs CBC & Chem 7: 03/28/22 06:20 03/29/22 08:32 Labs: Abnormal Lab Results - Last 24 Hours (Table) 03/28/22 03/28/22 03/29/22 Range/Units 16:39 20:05 08:32 APTT (22.0-30.0) sec Sodium 131 L (137-145) mmol/L Glucose 133 H (74-99) mg/dL POC Glucose (mg/dL) 130 H 298 H (70-110) mg/dL Calcium 7.2 L (8.4-10.2) mg/dL 03/29/22 Range/Units 12:36 APTT 60.6 H (22.0-30.0) sec Sodium (137-145) mmol/L Glucose (74-99) mg/dL POC Glucose (mg/dL) (70-110) mg/dL Calcium (8.4-10.2) mg/dL Assessment and Plan Time with Patient: Less than 30
[2022-03-29 17:12] LABS: Glucose,Whole Blood 166 mg/dL (70-110)
[2022-03-29] MEDS ORDERED: WARFARIN 5 MG TAB PO ONE (18:00)
[2022-03-29 19:49] LABS: Glucose,Whole Blood 245 mg/dL (70-110)
[2022-03-29] MEDS: ATORVASTATIN 80 MG TAB PO SCH (20:06)
[2022-03-30] MEDS: oxyCODONE-APAP 10-325MG 1 EACH TAB PO PRN ×2 (02:45→21:19)
[2022-03-30 06:22] LABS: Glucose,Whole Blood 98 mg/dL (70-110)
[2022-03-30] MEDS: INSULIN ASPART (NovoLOG) 100 UNIT/ML VIAL SQ SCH ×4 (06:29→21:02)
[2022-03-30] MEDS: GLIMEPIRIDE 4 MG TAB PO SCH (06:33)
[2022-03-30] MEDS: PREGABALIN 100 MG CAP PO SCH ×2 (08:47→21:02)
[2022-03-30] MEDS: METOPROLOL SUCCINATE (ER) 50 MG TAB.ER.24H PO SCH (08:47)
[2022-03-30] MEDS: MELOXICAM 7.5 MG TAB PO SCH (08:47)
[2022-03-30] MEDS: FUROSEMIDE 40 MG TAB PO SCH (08:47)
[2022-03-30] MEDS: AMIODARONE 200 MG TAB PO SCH (08:47)
[2022-03-30] MEDS: TOPIRAMATE 25 MG TAB PO SCH ×2 (08:48→21:02)
[2022-03-30] MEDS: APIXABAN 5 MG TAB PO SCH ×2 (08:48→21:02)
[2022-03-30] MEDS: lisinopriL 10 MG TAB PO SCH (08:48)
[2022-03-30] MEDS: DULoxetine HCL 20 MG CAPSULE.DR PO SCH ×2 (08:48→21:02)
[2022-03-30] MEDS ORDERED: lisinopriL 10 MG TAB PO SCH ×2 (09:00)
[2022-03-30 09:19] LABS: Prothrombin Time 11.1 sec (9.0-12.0)
--- NOTE | 2022-03-30 09:33 | P.PN ---
Subjective Progress Note Date: 03/30/22 CHIEF COMPLAINT: Chest pain HISTORY OF PRESENT ILLNESS: This is a 66-year-old male with a past medical history significant for hypertension, hyperlipidemia, diabetes, recurrent DVTs, chronic nonhealing ulcer of right lower extremity, and paroxysmal atrial fibrillation. Patient follows in the office with Dr. Heaton. We have been asked to see the patient in consultation for elevated troponin. Patient examined at the bedside. Patient states he came to the hospital due to chest pain. Patient was found to be positive for Covid. He denies any further episodes of chest pain. He denies SOB. He reports depression and stopped taking all of his medications about 3 weeks ago. * EKG reveals sinus mechanism with no signs of acute ischemia * Chest xray borderline heart size and COPD. * Laboratory data: WBC 5.7. Hemoglobin 11.5. Platelet count 277. Sodium 133. Potassium 3.5. BUN 15. Creatinine 0.83. Troponin 0.057. 0.036. * Current home cardiac medications include lisinopril 20 mg daily, warfarin 3 mg at night, metoprolol succinate 50 mg daily, Lasix 40 mg daily, Lipitor 80 mg at night, aspirin 81 mg daily, and amiodarone 200 mg daily * Most recent echocardiogram obtained in November 2021 revealed ejection fraction 55- 60%, trace MR, trace TR * Patient underwent Lexiscan stress test in November 2019 which was negative for ischemia 03/29/2022 Patient remains hospitalized on 3S. No complaints of chest pain or pressure. Denies SOB. He remains on IV lasix. INR today is 1.0. He remains on IV heparin until his INR is therapeutic. He is receiving Coumadin. Vital signs are stable. Systolic blood pressure in the 90s. 03/30/2022 Patient denies chest pain or pressure this morning. He denies shortness of breath. He remains on oral Lasix. Patient's co-pay for Eliquis is $47. Patient states he can afford that and is willing to switch from Coumadin to Eliquis. PHYSICAL EXAM: Thorough physical exam not completed secondary to limited evaluation/examination due to Covid19 ASSESSMENT: Chest pain, ACS ruled out Acute Covid 19 Abnormal troponins, not suggestive of acute coronary syndrome Hypertension Hyperlipidemia Diabetes Recurrent DVTs History of nonhealing ulcer of right lower extremity History of left [id number] amputation Paroxysmal atrial fibrillation Medication noncompliance Subtherapeutic INR Depression PLAN: Continue current cardiac medications Patient willing to pay $47 co-pay for Eliquis. Discontinue Coumadin and IV heparin. Further recommendations pending patient course Nurse practitioner note has been reviewed by physician. Signing provider agrees with the documented findings, assessment, and plan of care. Objective - Vital Signs Vital signs: Vital Signs Temp 97.5 F L 03/30/22 08:00 Pulse 71 03/30/22 08:00 Resp 18 03/30/22 08:00 BP 112/64 03/30/22 08:00 Pulse Ox 92 L 03/30/22 08:00 FiO2 Intake & Output 03/29/22 03/30/22 03/30/22 18:59 06:59 18:59 Intake Total 478 182.588 Output Total 1700 750 Balance -1222 -567.412 Intake: Intake, IV Titration 182.588 Amount Heparin Sod,Pork in 0.45% 182.588 NaCl 25,000 unit In 0.45 % NaCl 1 250ml.bag @ 11. 023 UNITS/KG/HR 10 mls/hr IV .Q24H [facility] Rx#: [id number] Oral 478 Output: Urine 1700 750 Other: Voiding Method External Catheter External Catheter External Catheter # Bowel Movements 1 - Labs CBC & Chem 7: 03/28/22 06:20 03/29/22 08:32 Labs: Abnormal Lab Results - Last 24 Hours (Table) 03/29/22 03/29/22 03/29/22 Range/Units 08:32 12:36 16:52 APTT 60.6 H (22.0-30.0) sec Sodium 131 L (137-145) mmol/L Glucose 133 H (74-99) mg/dL POC Glucose (mg/dL) 166 H (70-110) mg/dL Calcium 7.2 L (8.4-10.2) mg/dL 03/29/22 Range/Units 19:47 APTT (22.0-30.0) sec Sodium (137-145) mmol/L Glucose (74-99) mg/dL POC Glucose (mg/dL) 245 H (70-110) mg/dL Calcium (8.4-10.2) mg/dL
[2022-03-30 09:44] LABS: Calcium 7.7 mg/dL (8.4-10.2); Potassium 4.5 mmol/L (3.5-5.1)
[2022-03-30 12:11] LABS: Glucose,Whole Blood 178 mg/dL (70-110)
[2022-03-30 17:01] LABS: Glucose,Whole Blood 104 mg/dL (70-110)
[2022-03-30] MEDS: CHOLECALCIFEROL 25 MCG (1000 IU) TABLET PO SCH (17:05)
[2022-03-30 20:28] LABS: Glucose,Whole Blood 185 mg/dL (70-110)
[2022-03-30] MEDS: ATORVASTATIN 80 MG TAB PO SCH (21:02)
[2022-03-31 06:16] LABS: Glucose,Whole Blood 169 mg/dL (70-110)
[2022-03-31] MEDS: GLIMEPIRIDE 4 MG TAB PO SCH (06:21)
[2022-03-31] MEDS: INSULIN ASPART (NovoLOG) 100 UNIT/ML VIAL SQ SCH ×4 (06:21→20:42)
[2022-03-31 09:14] LABS: Anisocytosis Moderate; Basophils % (A) 1 %; Eosinophils # (A) 0.2 k/uL (0-0.7); Eosinophils % (A) 4 %; HCT 37.3 % (39.0-53.0); HGB 11.7 gm/dL (13.0-17.5); Hypochromasia Slight; Lymphocytes % (A) 22 %; MCH 28.2 pg (25.0-35.0); MCHC 31.3 g/dL (31.0-37.0); MCV 90.1 fL (80.0-100.0); Mean Platelet Volume 7.9; Microcytosis Slight; Monocytes # (A) 0.4 k/uL (0-1.0); Monocytes % (A) 8 %; Neutrophils # (A) 2.7 k/uL (1.3-7.7); Neutrophils % (A) 64 %; Platelet Count 230 k/uL (150-450); RBC 4.14 m/uL (4.30-5.90); RDW 20.4 % (11.5-15.5); WBC 4.3 k/uL (3.8-10.6)
[2022-03-31] MEDS: CHOLECALCIFEROL 25 MCG (1000 IU) TABLET PO SCH (09:18)
[2022-03-31] MEDS: APIXABAN 5 MG TAB PO SCH ×2 (09:18→20:42)
[2022-03-31] MEDS: AMIODARONE 200 MG TAB PO SCH (09:18)
[2022-03-31] MEDS: lisinopriL 10 MG TAB PO SCH (09:19)
[2022-03-31] MEDS: DULoxetine HCL 20 MG CAPSULE.DR PO SCH ×2 (09:19→20:46)
[2022-03-31] MEDS: METOPROLOL SUCCINATE (ER) 50 MG TAB.ER.24H PO SCH (09:19)
[2022-03-31] MEDS: TOPIRAMATE 25 MG TAB PO SCH ×2 (09:19→20:42)
[2022-03-31] MEDS: FUROSEMIDE 40 MG TAB PO SCH (09:19)
[2022-03-31] MEDS: PREGABALIN 100 MG CAP PO SCH ×2 (09:19→20:42)
[2022-03-31] MEDS: MELOXICAM 7.5 MG TAB PO SCH (09:19)
[2022-03-31 09:31] LABS: African American GFR (CKD) >90 (>60 ml/min/1.73 sqM); Anion Gap 6 mmol/L; Blood Urea Nitrogen 16 mg/dL (9-20); Calcium 7.4 mg/dL (8.4-10.2); Carbon Dioxide 26 mmol/L (22-30); Chloride 102 mmol/L (98-107); Glucose 134 mg/dL (74-99); Non-African American GFR(CKD) 82 (>60 ml/min/1.73 sqM); Potassium 4.3 mmol/L (3.5-5.1); Sodium 134 mmol/L (137-145)
--- NOTE | 2022-03-31 10:04 | P.CONS ---
History of Present Illness - Reason for Consult Consult date: 03/31/22 wound care - History of Present Illness This is a 66-year-old patient known to the wound care center who is seeing Dr. Kenny in the past. He is being seen on 3 separate for nonhealing ulcerations to the right lower extremity patient has an ulceration to the right knee with fat layer exposure with significant amount of slough and minimal granulation noted within the wound bed. The wound measures approximately 1 x 1 x 0.1 cm. Right anterior lower extremity has an ulceration that measures approximately 0.4 x 0.4 x 0.1 cm with granulation seen within the wound bed and minimal Slough and nonviable tissue. Fat layer is exposed. Right lateral ankle ulceration measures approximately 1.5 x 1 x 0.2 cm a significant amount of slough and eschar and nonviable tissue noted. Patient has fat layer exposure with minimal granulation noted. Patient's past medical history significant for atrial fibrillation, COPD, CVA A, diabetes, left lqlxu-yan-[id number] amputation, hypertension, hyperlipidemia, GERD, pulmonary embolism, peripheral vascular disease Review Of Systems: Constitutional: No fever, no chills, no night sweats. No weight change. No weakness, fatigue or lethargy. No daytime sleepiness. Integumentary:reports wounds, no lesions. No rash or pruritus. No unusual bruising. No change in hair or nails. Physical exam: General Appearance: Alert, cooperative, no distress, appears stated age. Skin: See HPI all other Skin color, texture, tugor normal, no rashes or lesions. Neurologic: Alert oriented x3 Assessment: 1. Nonhealing ulceration with fatty layer exposure right ankle 2. Nonhealing ulceration with fatty layer exposure right lower extremity 3. Nonhealing ulceration with fatty layer exposure right knee Plan: 1.Right knee, right lateral ankle and right anterior lower extremity: Apply honey gel dry gauze and rolled gauze and secure with paper tape. Change Monday. Patient would benefit from advanced wound care we will be happy to see him in the wound care center upon discharge. Thank you for the consultation any questions please contact the wound care center DNP note has been reviewed and discussed with Dr. Bates and the impression and plan of care has been directed as dictated. Past Medical History Past Medical History: Atrial Fibrillation, Asthma, COPD, CVA/TIA, Diabetes Mellitus, Deep Vein Thrombosis (DVT), GERD/Reflux, Hyperlipidemia, Hypertension, Neurologic Disorder, Osteoarthritis (OA), Pneumonia, Pulmonary Embolus (PE), Skin Disorder, Vascular Disorder Additional Past Medical History / Comment(s): Pt admitted to [facility] on 11/20/20 with hyperkalemia, hyperglycemia, uncontrolled diabetes. Other hx: Lupus anticoagulant, DVTs bilateral legs, PEs bilateral lungs, pt has zina filter, L AKA/wheelchair bound, NIDDM type II, neuropathy bilateral hands, wound care patient for buttock wound, now healed, TIAs, pneumothorax, past migraines, chronic low back pain, R leg edema at times, varicosities. History of Any Multi-Drug Resistant Organisms: MRSA Year Discovered:: 06/04/21 MDRO Source:: Right Leg MRSA Past Surgical History: Adenoidectomy, Appendectomy, Tonsillectomy Additional Past Surgical History / Comment(s): [place] filter, stents in vessels "in pelvic area", total L hip arthroplasty, vein strippings, colonoscopy. left leg amputation Past Anesthesia/Blood Transfusion Reactions: No Reported Reaction Additional Past Anesthesia/Blood Transfusion Reaction / Comm: Pt has received blood in past without reaction. Past Psychological History: No Psychological Hx Reported Smoking Status: Current every day smoker Past Alcohol Use History: None Reported Past Drug Use History: Marijuana - Past Family History Mother Family Medical History: Coronary Artery Disease (CAD), Myocardial Infarction (OR), Vascular Disorder Additional Family Medical History / Comment(s): heart disease, peripheral vascular disease. Father Family Medical History: Diabetes Mellitus, Renal Disease Medications and Allergies Home Medications Medication Instructions Recorded Confirmed Type Atorvastatin [Lipitor] 80 mg PO HS 01/09/14 03/27/22 History Topiramate [Topamax] 25 mg PO BID 01/09/14 03/27/22 History Nortriptyline [Pamelor] 50 mg PO HS 08/15/19 03/27/22 History Omeprazole [PriLOSEC] 20 mg PO BID 08/15/19 03/27/22 History Loratadine 10 mg PO HS 10/30/19 03/27/22 History Metoprolol Succinate (ER) [Toprol 50 mg PO DAILY 02/29/20 03/27/22 History XL] Docusate [Colace] 100 mg PO DAILY 05/19/20 03/27/22 History Multivitamins, Thera [Multivitamin 1 tab PO DAILY 10/16/20 03/27/22 History (formulary)] Furosemide [Lasix] 40 mg PO DAILY #30 tablet 12/29/20 03/27/22 Rx Celecoxib [CeleBREX] 200 mg PO DAILY 06/02/21 03/27/22 History Pioglitazone [Actos] 30 mg PO DAILY 06/02/21 03/27/22 History Potassium Chloride [Klor-Con 10 ER] 10 meq PO DAILY 06/02/21 03/27/22 History Warfarin [Coumadin] 3 mg PO HS 06/02/21 03/27/22 History metFORMIN HCL 500 mg PO BID 06/02/21 03/27/22 History Aspirin EC [Ecotrin Low Dose] 81 mg PO DAILY 09/05/21 03/27/22 History DULoxetine HCL [Cymbalta] 30 mg PO DAILY 09/07/21 03/27/22 History Glimepiride [Amaryl] 4 mg PO AC-BRKFST 09/07/21 03/27/22 History Pregabalin [Lyrica] 300 mg PO BID 09/07/21 03/27/22 History Nicotine 14Mg/24Hr Patch [Habitrol] 1 patch TRANSDERM DAILY PRN 11/14/21 03/27/22 History Amiodarone [Cordarone] 200 mg PO DAILY 03/27/22 03/27/22 History lisinopriL [Zestril] 20 mg PO DAILY 03/27/22 03/27/22 History Apixaban [Eliquis] 5 mg PO BID #60 tab 03/29/22 Rx Allergies Allergy/AdvReac Type Severity Reaction Status Date / Time baclofen Allergy Unknown Verified 02/19/22 03:46 Physical Exam Vitals: Vital Signs Temp Pulse Resp BP Pulse Ox 03/31/22 03:38 98.5 F 52 L 18 96/55 96 03/30/22 23:37 98 F 51 L 18 150/68 97 03/30/22 20:00 98.3 F 56 L 20 107/64 99 03/30/22 16:00 46 L 18 122/71 95 03/30/22 13:32 58 L 18 03/30/22 12:00 58 L 18 105/61 99 Intake and Output 03/30/22 03/31/22 03/31/22 22:59 06:59 14:59 Intake Total 240 240 Output Total 1150 Balance -910 240 Intake: Oral 240 240 Output: Urine 1150 Other: Voiding Method External Catheter External Catheter # Voids 2 Results CBC & Chem 7: 03/31/22 08:48 03/31/22 08:48 Labs: Abnormal Lab Results - Last 24 Hours (Table) 03/30/22 03/30/22 03/31/22 Range/Units 11:42 20:26 06:15 RBC (4.30-5.90) m/uL Hgb (13.0-17.5) gm/dL Hct (39.0-53.0) % RDW (11.5-15.5) % Sodium (137-145) mmol/L Glucose (74-99) mg/dL POC Glucose (mg/dL) 178 H 185 H 169 H (70-110) mg/dL Calcium (8.4-10.2) mg/dL 03/31/22 03/31/22 Range/Units 08:48 08:48 RBC 4.14 L (4.30-5.90) m/uL Hgb 11.7 L (13.0-17.5) gm/dL Hct 37.3 L (39.0-53.0) % RDW 20.4 H (11.5-15.5) % Sodium 134 L (137-145) mmol/L Glucose 134 H (74-99) mg/dL POC Glucose (mg/dL) (70-110) mg/dL Calcium 7.4 L (8.4-10.2) mg/dL Assessment and Plan (1) Non-pressure ulcer of right lower extremity with fat layer exposed Current Visit: Yes Status: Acute Code(s): L97.912 - NON-PRS CHR ULC UNSP PRT OF R LOW LEG W FAT LAYER EXPOSED SNOMED Code(s): 65796781 (2) Non-pressure chronic ulcer of right ankle with fat layer exposed Current Visit: Yes Status: Acute Code(s): L97.312 - NON-PRS CHRONIC ULCER OF RIGHT ANKLE W FAT LAYER EXPOSED SNOMED Code(s): 78317163153800241 (3) Non-pressure chronic ulcer of other part of right lower leg with fat layer exposed Current Visit: Yes Status: Acute Code(s): L97.812 - NON-PRS CHRONIC ULCER OTH PRT R LOW LEG W FAT LAYER EXPOSED SNOMED Code(s): 60504039 (4) Type 2 diabetes mellitus with other skin ulcer Current Visit: No Status: Acute Code(s): E11.622 - TYPE 2 DIABETES MELLITUS WITH OTHER SKIN ULCER; L98.499 - NON-PRESSURE CHRONIC ULCER OF SKIN OF SITES W UNSP SEVERITY SNOMED Code(s): 755843855
--- NOTE | 2022-03-31 10:38 | P.PN ---
Subjective Progress Note Date: 03/31/22 CHIEF COMPLAINT: Chest pain HISTORY OF PRESENT ILLNESS: This is a 66-year-old male with a past medical history significant for hypertension, hyperlipidemia, diabetes, recurrent DVTs, chronic nonhealing ulcer of right lower extremity, and paroxysmal atrial fibrillation. Patient follows in the office with Dr. Heaton. We have been asked to see the patient in consultation for elevated troponin. Patient examined at the bedside. Patient states he came to the hospital due to chest pain. Patient was found to be positive for Covid. He denies any further episodes of chest pain. He denies SOB. He reports depression and stopped taking all of his medications about 3 weeks ago. * EKG reveals sinus mechanism with no signs of acute ischemia * Chest xray borderline heart size and COPD. * Laboratory data: WBC 5.7. Hemoglobin 11.5. Platelet count 277. Sodium 133. Potassium 3.5. BUN 15. Creatinine 0.83. Troponin 0.057. 0.036. * Current home cardiac medications include lisinopril 20 mg daily, warfarin 3 mg at night, metoprolol succinate 50 mg daily, Lasix 40 mg daily, Lipitor 80 mg at night, aspirin 81 mg daily, and amiodarone 200 mg daily * Most recent echocardiogram obtained in November 2021 revealed ejection fraction 55- 60%, trace MR, trace TR * Patient underwent Lexiscan stress test in November 2019 which was negative for ischemia 03/29/2022 Patient remains hospitalized on 3S. No complaints of chest pain or pressure. Denies SOB. He remains on IV lasix. INR today is 1.0. He remains on IV heparin until his INR is therapeutic. He is receiving Coumadin. Vital signs are stable. Systolic blood pressure in the 90s. 03/30/2022 Patient denies chest pain or pressure this morning. He denies shortness of breath. He remains on oral Lasix. Patient's co-pay for Eliquis is $47. Patient states he can afford that and is willing to switch from Coumadin to Eliquis. 03/31/2022 Patient examined this morning at the bedside. He denies chest pain or pressure. Denies SOB. He has been transitioned to Eliquis yesterday. Hemoglobin stable at 11.7. Telemetry reveals sinus mechanism. Blood pressure this morning 154/73. Previous BP documented 96/55. Patient is upset this morning because he did not receive breakfast. PHYSICAL EXAM: Thorough physical exam not completed secondary to limited evaluation/examination due to Covid19 *Exam performed by Dr. Cheung revealing diminished lungs with trace edema to RLE. ASSESSMENT: Chest pain, ACS ruled out Acute Covid 19 Abnormal troponins, not suggestive of acute coronary syndrome Hypertension Hyperlipidemia Diabetes Recurrent DVTs History of nonhealing ulcer of right lower extremity History of left pfaca-qju-srdy amputation Paroxysmal atrial fibrillation Medication noncompliance Subtherapeutic INR Depression PLAN: Continue current cardiac medications Blood pressure somewhat labile. Continue to monitor BP and make adjustments as needed. Further recommendations pending patient course Nurse practitioner note has been reviewed by physician. Signing provider agrees with the documented findings, assessment, and plan of care. Objective - Vital Signs Vital signs: Vital Signs Temp 98.5 F 03/31/22 03:38 Pulse 52 L 03/31/22 03:38 Resp 18 03/31/22 03:38 BP 96/55 03/31/22 03:38 Pulse Ox 96 03/31/22 03:38 FiO2 Intake & Output 03/30/22 03/31/22 03/31/22 18:59 06:59 18:59 Intake Total 360 480 Output Total 1150 Balance 360 -670 Intake: Oral 360 480 Output: Urine 1150 Other: Voiding Method External Catheter External Catheter # Voids 2 # Bowel Movements 1 - Labs CBC & Chem 7: 03/31/22 08:48 03/31/22 08:48 Labs: Abnormal Lab Results - Last 24 Hours (Table) 03/30/22 03/30/22 03/31/22 Range/Units 11:42 20:26 06:15 RBC (4.30-5.90) m/uL Hgb (13.0-17.5) gm/dL Hct (39.0-53.0) % RDW (11.5-15.5) % Sodium (137-145) mmol/L Glucose (74-99) mg/dL POC Glucose (mg/dL) 178 H 185 H 169 H (70-110) mg/dL Calcium (8.4-10.2) mg/dL 03/31/22 03/31/22 Range/Units 08:48 08:48 RBC 4.14 L (4.30-5.90) m/uL Hgb 11.7 L (13.0-17.5) gm/dL Hct 37.3 L (39.0-53.0) % RDW 20.4 H (11.5-15.5) % Sodium 134 L (137-145) mmol/L Glucose 134 H (74-99) mg/dL POC Glucose (mg/dL) (70-110) mg/dL Calcium 7.4 L (8.4-10.2) mg/dL
[2022-03-31 11:55] LABS: Glucose,Whole Blood 193 mg/dL (70-110)
[2022-03-31 16:50] LABS: Glucose,Whole Blood 134 mg/dL (70-110)
--- NOTE | 2022-03-31 18:19 | P.PN ---
Subjective Progress Note Date: 03/31/22 66-year-old male came in with complaints of fever found to have COVID-19 patient has not been doing well clinically. Patient is quite a bit depressed since he got the worst and stop all his medications he says he basically gave up although he denied any suicidal ideations. Patient does have extensive history with the past medical history of atrial fibrillation on Coumadin starting Coumadin patient also complaining of chest tightness patient has mildly elevated troponins of 0.057. Patient does have history of COPD usually is supposed to wear oxygen history of wearing oxygen as well. History of DVT and pulmonary embolism with [place] filter in the past. Patient is complaining of pain in the right leg patient does have redness in the right leg as well although doesn't appear to be cellulitic. Patient had elevated d-dimer of 1.24. Patient does have history of congestive heart failure with a preserved ejection fraction patient had a normal EF in the past. Patient does have swelling in the right lower extremity patient has a bony amputation on the left side with some swelling as well. Patient is a hypomagnesemic and hypokalemic as well. Chest x-ray did not show any significant pleural effusion that he some venous congestion but this is actually improved compared to his previous chest x-rays. Patient does have mild pleural effusions bilaterally and patient is comparing of pain in the right lower extremity. 03/28/2022 Patient is evaluated today sitting up at the bedside. No acute events overnight. Denies shortness of breath currently. He continues on IV lasix daily. He con tinues on IV heparin bridge, on coumadin. INR today is 1.0. Patient had not been taking his medications at home. Venous doppler shows no evidence for acute DVT, chest CTA is negative for pulmonary embolism, cardiology has evaluated the patient and recommends on current changes to medications at this time. No plans to repeat echocardiogram. Psychiatry has evaluated the patient and recommended to increase cymbalta. Labs showing hgb 11.5, sodium 133, potassium 3.5, BUN 15, creatinine 0.83, magnesium 2.1. He was found to be positive for covid. 03/29/2022 Patient is evaluated today resting in bed. He reports significant fatigue. He is denying chest pain and denying shortness of breath. He has been transitioned to oral lasix. Blood pressures on the lower side. He continues on nasal cannula sup port and states he is supposed to be wearing home oxygen. Blood sugars are stable. INR today 1.0, continues on coumadin with IV heparin bridge, [place] check completed for [facility] will follow up with patient if this is something he can afford. Sodium 131. 03/31/2022 Patient seen today and was scheduled for discharge pending auth although was denied. Social work following and filed an aps case on patient as he has been homeless and living in hotels with his daughter. Patient is medicaid pending and social work working on referrals being sent out to multiple facilities. Patient has been cleared by cardiology. Patient is positive for covid although asymptomatic. Patient is chronically on 2L [facility]. Wound care evaluated the patient recommending daily wound care dressing to the right lower extremity. Will add keflex 500mg PO tid with a short course on discharge. Patient is afebrile and denies chest pain or shortness of breath. Patient tolerating diet and denies nausea or vomiting. Patient has been transitioned to eliquis. Review of Systems Constitutional: Reports fatigue. denied any fever. Cardio vascular: denied any chest pain, palpitations Gastrointestinal: denied any nausea, vomiting, diarrhea Pulmonary: Denied any shortness of breath cough Neurologic denied any new focal deficits All inpatient medications were reviewed and appropriate changes in these medications as dictated in the interval history and assessment and plan. PHYSICAL EXAMINATION: GENERAL: The patient is alert and oriented x3, not in any acute distress. Well developed, well nourished. HEENT: Pupils are round and equally reacting to light. EOMI. No scleral icterus. No conjunctival pallor. Normocephalic, atraumatic. No pharyngeal erythema. No thyromegaly. CARDIOVASCULAR: S1 and S2 present. No murmurs, rubs, or gallops. PULMONARY: Lungs are diminished today. ABDOMEN: Soft, nontender, nondistended, normoactive bowel sounds. No palpable organomegaly. MUSCULOSKELETAL: No joint swelling or deformity. EXTREMITIES: No cyanosis, clubbing, swelling of the right lower exudate as mentioned above left below-knee amputation NEUROLOGICAL: Gross neurological examination did not reveal any focal deficits. SKIN: Redness of the right lower extremity Assessment: -Chest pain: Patient has mildly elevated troponin, no evidence for pulmonary embolism or DVT. ACS ruled out. -COVID-19 infection patient is presently not hypoxic -Atrial fibrillation paroxysmal patient is presently rate, transitioned to eliquis -History of DVT/PE in the past -COPD without any acute exacerbation -Hypomagnesemia: resolved with magnesium supplement. -hypokalemia potassium will be replaced -Type 2 diabetes mellitus, noncompliant with medications. Patient is resumed on home medication continue with accuchecks. -Hyperlipidemia -Hypertension -Peripheral vascular disease -Generalized weakness and medical debility -Depression -DVT prophylaxis: On eliquis -GI Prophylaxis: -No Code Plan: Patient has been evaluated by psychiatry, no inpatient treatment recommended and cymbalta which has been increased. Cardiology following and lasix has been changed to oral, lisinopril dose adjusted. Social work following and filed for medicaid pending and sending out resources for possible ECF as patient reports to being homeless and living out of hotels. Recommend PT/OT daily. Possible discharge in the next 24 to 48 hours. The impression and plan of care has been dictated by Rashida Peterson, Nurse Practitioner as directed. MD Nestor I have performed a history and physical examination and medical decision making of this patient, discussed the same with the dictator, and agree with the dictators assessment and plan as written, documented as a scribe. Based on total visit time, I have performed more than 50% of this visit. Objective - Vital Signs Vital signs: Vital Signs Temp 98.1 F 03/31/22 08:00 Pulse 50 L 03/31/22 14:00 Resp 18 03/31/22 14:00 BP 119/70 03/31/22 12:00 Pulse Ox 93 L 03/31/22 12:00 FiO2 Intake & Output 03/30/22 03/31/22 03/31/22 18:59 06:59 18:59 Intake Total 360 480 Output Total 1150 Balance 360 -670 Intake: Oral 360 480 Output: Urine 1150 Other: Voiding Method External Catheter External Catheter External Catheter # Voids 2 # Bowel Movements 1 - Labs CBC & Chem 7: 03/31/22 08:48 03/31/22 08:48 Labs: Abnormal Lab Results - Last 24 Hours (Table) 03/30/22 03/31/22 03/31/22 Range/Units 20:26 06:15 08:48 RBC 4.14 L (4.30-5.90) m/uL Hgb 11.7 L (13.0-17.5) gm/dL Hct 37.3 L (39.0-53.0) % RDW 20.4 H (11.5-15.5) % Sodium (137-145) mmol/L Glucose (74-99) mg/dL POC Glucose (mg/dL) 185 H 169 H (70-110) mg/dL Calcium (8.4-10.2) mg/dL 03/31/22 03/31/22 Range/Units 08:48 11:53 RBC (4.30-5.90) m/uL Hgb (13.0-17.5) gm/dL Hct (39.0-53.0) % RDW (11.5-15.5) % Sodium 134 L (137-145) mmol/L Glucose 134 H (74-99) mg/dL POC Glucose (mg/dL) 193 H (70-110) mg/dL Calcium 7.4 L (8.4-10.2) mg/dL
[2022-03-31 20:22] LABS: Glucose,Whole Blood 174 mg/dL (70-110)
[2022-03-31] MEDS: ATORVASTATIN 80 MG TAB PO SCH (20:41)
[2022-03-31] MEDS: CEPHALEXIN 500 MG CAP PO SCH (20:41)
[2022-03-31] MEDS: oxyCODONE-APAP 10-325MG 1 EACH TAB PO PRN (21:19)
[2022-04-01] MEDS: CEPHALEXIN 500 MG CAP PO SCH ×3 (03:12→17:27)
[2022-04-01 06:26] LABS: Glucose,Whole Blood 130 mg/dL (70-110)
[2022-04-01] MEDS: INSULIN ASPART (NovoLOG) 100 UNIT/ML VIAL SQ SCH ×4 (06:31→22:32)
[2022-04-01] MEDS: GLIMEPIRIDE 4 MG TAB PO SCH (06:34)
[2022-04-01] MEDS: METOPROLOL SUCCINATE (ER) 50 MG TAB.ER.24H PO SCH (08:52)
[2022-04-01] MEDS: FUROSEMIDE 40 MG TAB PO SCH (08:52)
[2022-04-01] MEDS: AMIODARONE 200 MG TAB PO SCH (08:52)
[2022-04-01] MEDS: TOPIRAMATE 25 MG TAB PO SCH ×2 (08:52→22:31)
[2022-04-01] MEDS: CHOLECALCIFEROL 25 MCG (1000 IU) TABLET PO SCH (08:52)
[2022-04-01] MEDS: lisinopriL 10 MG TAB PO SCH (08:52)
[2022-04-01] MEDS: APIXABAN 5 MG TAB PO SCH ×2 (08:52→22:32)
[2022-04-01] MEDS: MELOXICAM 7.5 MG TAB PO SCH (08:53)
[2022-04-01] MEDS: DULoxetine HCL 20 MG CAPSULE.DR PO SCH (08:53)
[2022-04-01] MEDS: PREGABALIN 100 MG CAP PO SCH ×2 (08:53→22:31)
--- NOTE | 2022-04-01 09:19 | P.DS ---
Providers Date of admission: 03/27/22 07:34 Expected date of discharge: 03/31/22 Attending physician: Analisa Wheat MD Consults: 03/27/22 08:07 Consult Physician Routine Consulting Provider: Ryan Kirkland Consult Reason/Comments: elevated trop, covid, chest pain Do you want consulting provider notified?: Yes, Notify in am 03/27/22 08:25 Consult Physician Routine Consulting Provider: Rocky Wren Consult Reason/Comments: depression Do you want consulting provider notified?: Yes, Notify in am Primary care physician: Kristin Chang Hospital Course: Final diagnosis -Chest pain: Patient has mildly elevated troponin, no evidence for pulmonary embolism or DVT. ACS ruled out. -COVID-19 infection patient is presently not hypoxic -Atrial fibrillation paroxysmal patient is presently rate, transitioned to eliquis -History of DVT/PE in the past -COPD without any acute exacerbation -Hypomagnesemia: resolved with magnesium supplement. -hypokalemia -Type 2 diabetes mellitus, noncompliant with medications. Patient is resumed on home medication continue with accuchecks. -Hyperlipidemia -Hypertension -Peripheral vascular disease -Generalized weakness and medical debility -Depression -DVT prophylaxis: On eliquis -GI Prophylaxis -No Code Discharge disposition Patient is being discharged in a stable condition with guarded prognosis to [facility]. Patient will follow-up with Dr. Chang in the outpatient setting upon discharge. Patient is to continue with keflex 500mg TID for the next 3 days to complete the course. Patient to follow up with cardiology as well as wound care center in the next 1-2 weeks. Total time taken is greater than 35 minutes. Hospital course This is a 66-year-old male who was recently admitted with chest pain and found to have covid without hypoxia and was being closely monitored. Cardiology evaluated the patient and made some adjustments to his medications and also started on eliquis and has discontinued coumadin. Wound care [employer] evaluated the patient recommending local wound care daily and outpatient follow up in the clinic. Patient started on prophylactic keflex 500mg tid and will continue for 3 days to complete the course. Patient chronically wears 2L of 02 via [place] in the outpatient setting. Patient has had an application to medicaid submitted and is in pending status. Social work following for a safe discharge plan as patient reports he is currently homeless and staying in hotels. Working on ecf. Patient is medically stable and ready for discharge. Currently no reports of chest pain, shortness of breath, or palpitations. Patient is afebrile. No reports of nausea or vomiting and patient is tolerating diet. [facility] Guarded prognosis. Physical exam: Gen: This is a 66 year old male who is awake, alert and oriented x3. Well developed, well nourished. Obese. HEENT: Head is atraumatic, normocephalic. Pupils equal, round. Sclerae is anicteric. NECK: Supple. No JVD. No lymphadenopathy. No thyromegaly. LUNGS: diminished breath sounds bilaterally with some scattered rhonchi. No intercostal retractions. HEART: Regular rate and rhythm. No murmur. ABDOMEN: Soft. obese. Bowel sounds are present. No masses. No tenderness. EXTREMITIES: No pedal edema. No calf tenderness. left lower extremity amputation noted NEUROLOGICAL: Patient is awake, alert and oriented x3. Cranial nerves 2 through 12 are grossly intact. weakness Please refer to medication reconciliation sheet for a list of medications. The impression and plan of care has been dictated as a scribe by Rashida Peterson, Nurse Practitioner as directed. Dr. Antonio MD I have performed a history and examination and MDM of this patient, discussed the same with the dictator, and agree with the dictator's assessment and plan as written ,documented as a scribe. Based on total visit time, I have performed more than 50% of the visit. Patient Condition at Discharge: Fair Plan - Discharge Summary Discharge Rx Participant: No New Discharge Prescriptions: New Acetaminophen Tab [Tylenol] 650 mg PO Q6HR PRN tab PRN Reason: Mild Pain Or Fever > 100.5 Apixaban [Eliquis] 5 mg PO BID #60 tab DULoxetine HCL [Cymbalta] 20 mg PO BID 30 Days #60 cap Cephalexin [Keflex] 500 mg PO Q8HR 3 Days #9 cap lisinopriL [Zestril] 10 mg PO DAILY 30 Days #30 tab Continue Atorvastatin [Lipitor] 80 mg PO HS Topiramate [Topamax] 25 mg PO BID Omeprazole [PriLOSEC] 20 mg PO BID Nortriptyline [Pamelor] 50 mg PO HS Loratadine 10 mg PO HS Metoprolol Succinate (ER) [Toprol XL] 50 mg PO DAILY Docusate [Colace] 100 mg PO DAILY Furosemide [Lasix] 40 mg PO DAILY #30 tablet Celecoxib [CeleBREX] 200 mg PO DAILY metFORMIN HCL 500 mg PO BID Pregabalin [Lyrica] 300 mg PO BID Multivitamins, Thera [Multivitamin (formulary)] 1 tab PO DAILY Pioglitazone [Actos] 30 mg PO DAILY Potassium Chloride [Klor-Con 10 ER] 10 meq PO DAILY Glimepiride [Amaryl] 4 [facility] Nicotine 14Mg/24Hr Patch [Habitrol] 1 patch TRANSDERM DAILY PRN PRN Reason: Nicotine Cravings Amiodarone [Cordarone] 200 mg PO DAILY Discontinued Warfarin [Coumadin] 3 mg PO HS Aspirin EC [Ecotrin Low Dose] 81 mg PO DAILY DULoxetine HCL [Cymbalta] 30 mg PO DAILY lisinopriL [Zestril] 20 mg PO DAILY Discharge Medication List Atorvastatin [Lipitor] 80 mg PO HS 01/09/14 [History] Topiramate [Topamax] 25 mg PO BID 01/09/14 [History] Nortriptyline [Pamelor] 50 mg PO HS 08/15/19 [History] Omeprazole [PriLOSEC] 20 mg PO BID 08/15/19 [History] Loratadine 10 mg PO HS 10/30/19 [History] Metoprolol Succinate (ER) [Toprol XL] 50 mg PO DAILY 02/29/20 [History] Docusate [Colace] 100 mg PO DAILY 05/19/20 [History] Multivitamins, Thera [Multivitamin (formulary)] 1 tab PO DAILY 10/16/20 [ History] Furosemide [Lasix] 40 mg PO DAILY #30 tablet 12/29/20 [Rx] Celecoxib [CeleBREX] 200 mg PO DAILY 06/02/21 [History] Pioglitazone [Actos] 30 mg PO DAILY 06/02/21 [History] Potassium Chloride [Klor-Con 10 ER] 10 meq PO DAILY 06/02/21 [History] metFORMIN HCL 500 mg PO BID 06/02/21 [History] Glimepiride [Amaryl] 4 mg PO AC-[id number] 09/07/21 [History] Pregabalin [Lyrica] 300 mg PO BID 09/07/21 [History] Nicotine 14Mg/24Hr Patch [Habitrol] 1 patch TRANSDERM DAILY PRN 11/14/21 [History] Amiodarone [Cordarone] 200 mg PO DAILY 03/27/22 [History] Apixaban [Eliquis] 5 mg PO BID #60 tab 03/29/22 [Rx] Acetaminophen Tab [Tylenol] 650 mg PO Q6HR PRN tab 03/31/22 [Rx] Cephalexin [Keflex] 500 mg PO Q8HR 3 Days #9 cap 03/31/22 [Rx] DULoxetine HCL [Cymbalta] 20 mg PO BID 30 Days #60 cap 03/31/22 [Rx] lisinopriL [Zestril] 10 mg PO DAILY 30 Days #30 tab 03/31/22 [Rx] Follow up Appointment(s[facility]Ref[facility] - As Needed (Contact [facility] to see if you qualify for housing assistance or food stamps. ) Kristin Chang DO [Primary Care Provider] - 1-2 days Patient Instructions/Handouts: Chronic Wounds (DC), COVID-19 (Coronavirus Disease 2019) (DC) Activity/Diet/Wound Care/Special Instructions: Patient will discharge to a [facility] copay $47/month 1. Call [facility] to check on the status of your prosthetic [phone] Follow-up with primary care provider on discharge Follow-up with cardiology Continue taking medications as prescribed Follow-up with wound care center outpatient Continue local wound care to the right lower extremity including the right knee right lateral ankle and right anterior lower extremity by applying honey gel then dry gauze and rolled gauze was secured paper tape and change on Monday//Monday Continue antibiotics until finished Discharge/Stand Alone Forms: AA Meetings [place], Who Do I Call?, Community Resources, Outpatient Counseling Discharge Disposition: HOME SELF-CARE
--- NOTE | 2022-04-01 09:21 | CDI ---
Documentation Clarification Form Date: 04/01/2022 09:06:41 AM From: Alessandra Beard CCS, CCDS Admit Date: 03/27/2022 07:34:00 AM Patient Name: Cehco Quijano Visit Number: [id number] Discharge Date: ATTENTION: The Clinical Documentation Specialists (CDI) and [facility] Coding Staff appreciate your assistance in clarifying documentation. Please respond to the clarification below the line at the bottom and electronically sign. The CDI & [facility] Coding staff will review the response and follow-up if needed. Please note: Queries are made part of the Legal Health Record. If you have any questions, please contact the author of this message via ITS. Dr. Shadia Alvarez: The following is documented in the 03/31 Attending Physician Progress Note: Patient is chronically on 2L of 02 via [place]. The patient was ordered O2 2L on admission, on room air until 03/29, PO drop to 88% on room air, put o n2Lnc, PO 96. Based on this information and the findings below, is there an additional diagnosis that is clinically appropriate for this patient? History/Risk Factors per the 03/27 H/P: COPD, supposed to wear O2, Atrial Fibrillation on Coumadin, DVT, PE with Isabell filter in the past, CHF w/preserved EF in the past, Left AKA, Wheelchair bound, DM II, Hypertension, Hyperlipidemia, PVD. 03/27 VS: T 100, P 89, R 17, 20; BP 170/90, 133/60; PO 97 RA, 94 RA; BMI: 30.2 03/27 LAB: RBC 4.11, Hgb 11.4, Hct 36.5, Lymph 0.7; D Dimer 1.24; Na 136, K 3.4, Glucose 2.39, Calcium 7.8, AST 15, Troponin 0.057, Total Protein 6.2, Albumin 2.9 03/27 COVID Positive. 03/27 CXR: Borderline heart size & COPD. Diffuse interstitial opacities, slightly improved compared to 01/14/2022. Query typical pneumonias or mild interstitial pulmonary edema. 03/27 CT Chest: No PE. COPD w/moderate to advanced Emphysema and pulmonary arterial hypertension. CAD. Possible emphysematous cyst with surrounding atelectasis. Treatment 03/27: O2 2L, po Aspirin 324 mg x1, IV Heparin Drip, po Tylenol 650 mg q6H/prn, IV Mag Sulfate/Dextrose 100 mls @ 100 mls/hr q1H, po Toprol 50 mg Daily, po Topamax 25 mg BID, po K-Dur 40 meq x1, po Percocet q6H/prn, IV Lasix 40 mg Daily. Pulmonary was not consulted. Is there an additional diagnosis that is clinically appropriate for this patient and specify if present on admission: [ ] Acute Hypoxic Respiratory Failure [ ] Acute on Chronic Hypoxic Respiratory Failure [ ] Chronic Hypoxic Respiratory Failure [ ] Other Diagnosis, please specify [ ] Unable to determine (Template Last Revised: September 2020) none MTDD
[2022-04-01 12:02] LABS: Glucose,Whole Blood 141 mg/dL (70-110)
[2022-04-01 12:46] VITALS: BMI 30.2
--- NOTE | 2022-04-01 12:53 | P.PN ---
Subjective Progress Note Date: 04/01/22 CHIEF COMPLAINT: Chest pain HISTORY OF PRESENT ILLNESS: This is a 66-year-old male with a past medical history significant for hypertension, hyperlipidemia, diabetes, recurrent DVTs, chronic nonhealing ulcer of right lower extremity, and paroxysmal atrial fibrillation. Patient follows in the office with Dr. Heaton. We have been asked to see the patient in consultation for elevated troponin. Patient examined at the bedside. Patient states he came to the hospital due to chest pain. Patient was found to be positive for Covid. He denies any further episodes of chest pain. He denies SOB. He reports depression and stopped taking all of his medications about 3 weeks ago. * EKG reveals sinus mechanism with no signs of acute ischemia * Chest xray borderline heart size and COPD. * Laboratory data: WBC 5.7. Hemoglobin 11.5. Platelet count 277. Sodium 133. Potassium 3.5. BUN 15. Creatinine 0.83. Troponin 0.057. 0.036. * Current home cardiac medications include lisinopril 20 mg daily, warfarin 3 mg at night, metoprolol succinate 50 mg daily, Lasix 40 mg daily, Lipitor 80 mg at night, aspirin 81 mg daily, and amiodarone 200 mg daily * Most recent echocardiogram obtained in November 2021 revealed ejection fraction 55- 60%, trace MR, trace TR * Patient underwent Lexiscan stress test in November 2019 which was negative for ischemia 03/29/2022 Patient remains hospitalized on 3S. No complaints of chest pain or pressure. Denies SOB. He remains on IV lasix. INR today is 1.0. He remains on IV heparin until his INR is therapeutic. He is receiving Coumadin. Vital signs are stable. Systolic blood pressure in the 90s. 03/30/2022 Patient denies chest pain or pressure this morning. He denies shortness of breath. He remains on oral Lasix. Patient's co-pay for Eliquis is $47. Patient states he can afford that and is willing to switch from Coumadin to Eliquis. 03/31/2022 Patient examined this morning at the bedside. He denies chest pain or pressure. Denies SOB. He has been transitioned to Eliquis yesterday. Hemoglobin stable at 11.7. Telemetry reveals sinus mechanism. Blood pressure this morning 154/73. Previous BP documented 96/55. Patient is upset this morning because he did not receive breakfast. 04/01/2022 Patient examined this morning at the bedside. He denies chest pain or pressure. Denies SOB. Telemetry reveals sinus mechanism. Vital signs are stable. Blood pressure 97/55. He is on 2 L nasal cannula with oxygen saturations greater then 92%. PHYSICAL EXAM: Thorough physical exam not completed secondary to limited evaluation/examination due to Covid19 *Exam performed by Dr. Cheung revealing diminished lungs with trace edema to RLE. ASSESSMENT: Chest pain, ACS ruled out Acute Covid 19 Abnormal troponins, not suggestive of acute coronary syndrome Hypertension Hyperlipidemia Diabetes Recurrent DVTs History of nonhealing ulcer of right lower extremity History of left [id number] amputation Paroxysmal atrial fibrillation Medication noncompliance Subtherapeutic INR Depression PLAN: Continue current cardiac medications Patient is currently stable for discharge from a cardiac standpoint We will sign off. Please reconsult if needed. Nurse practitioner note has been reviewed by physician. Signing provider agrees with the documented findings, assessment, and plan of care. Objective - Vital Signs Vital signs: Vital Signs Temp 97.9 F 04/01/22 08:43 Pulse 50 L 04/01/22 08:43 Resp 18 04/01/22 08:43 BP 97/55 04/01/22 08:43 Pulse Ox 99 04/01/22 08:43 FiO2 Intake & Output 03/31/22 04/01/22 04/01/22 18:59 06:59 18:59 Intake Total 540 240 Output Total 1400 1750 Balance -1400 -1210 240 Weight 101 kg Intake: Oral 540 240 Output: Urine 1400 1750 Other: Voiding Method External Catheter Urinal Urinal - Labs CBC & Chem 7: 03/31/22 08:48 03/31/22 08:48 Labs: Abnormal Lab Results - Last 24 Hours (Table) 03/31/22 03/31/22 04/01/22 Range/Units 16:48 20:20 06:25 POC Glucose (mg/dL) 134 H 174 H 130 H (70-110) mg/dL 04/01/22 Range/Units 12:00 POC Glucose (mg/dL) 141 H (70-110) mg/dL
[2022-04-01 16:52] LABS: Glucose,Whole Blood 127 mg/dL (70-110)
[2022-04-01] MEDS: oxyCODONE-APAP 10-325MG 1 EACH TAB PO PRN ×2 (17:28→22:31)
[2022-04-01 20:03] LABS: Glucose,Whole Blood 166 mg/dL (70-110)
[2022-04-01] MEDS: ATORVASTATIN 80 MG TAB PO SCH (22:32)
[2022-04-02] MEDS: DULoxetine HCL 20 MG CAPSULE.DR PO SCH ×3 (00:03→20:45)
[2022-04-02] MEDS: CEPHALEXIN 500 MG CAP PO SCH ×3 (02:48→17:23)
--- NOTE | 2022-04-02 05:23 | PN ---
PROGRESS NOTE SUBJECTIVE: This 66-year-old gentleman with a past medical history of multiple medical problems, admitted with COPD, COVID-19, and other medical issues. The patient apparently homeless, and the patient was in the bus all day and sleeps in the wheelchair on the sidewalk, according to social science research assistant. No chest pain. No palpitation. OBJECTIVE: VITAL SIGNS: Pulse is 50, blood pressure 97/52, respirations 18. HEENT: Conjunctivae normal. NECK: No JVD. CARDIOVASCULAR: S1, S2 muffled. RESPIRATIONS: Breath sounds diminished at the bases. ABDOMEN: Soft. NERVOUS SYSTEM: Diffusely weak. LABORATORY DATA: Reviewed. ASSESSMENT: 1. Chest pain with mildly elevated troponin, possible coronary artery disease. 2. COVID-19 infection. 3. Atrial fibrillation. 4. Multiple medical issues. RECOMMENDATIONS: This 66 gentleman presented with multiple complex medical issues with significant listed earlier. I have discussed with Martinez, the social science research assistant at length, and he is diligently working on placement, has contacted over 30 nursing homes apparently. Medicaid is pending at this time. I recommend to pursue further placement because of the multiple complex medical issues and extremely grave prognosis as mentioned earlier. Further recommendations to follow. See orders for details. MMODL / IJN: [id number] / [id number]
[2022-04-02 05:56] LABS: Glucose,Whole Blood 91 mg/dL (70-110)
[2022-04-02] MEDS: INSULIN ASPART (NovoLOG) 100 UNIT/ML VIAL SQ SCH ×4 (06:11→20:45)
[2022-04-02] MEDS: GLIMEPIRIDE 4 MG TAB PO SCH (06:40)
[2022-04-02] MEDS: oxyCODONE-APAP 10-325MG 1 EACH TAB PO PRN ×2 (06:43→17:23)
[2022-04-02] MEDS: APIXABAN 5 MG TAB PO SCH ×2 (09:11→20:45)
[2022-04-02] MEDS: TOPIRAMATE 25 MG TAB PO SCH ×2 (09:11→20:45)
[2022-04-02] MEDS: AMIODARONE 200 MG TAB PO SCH (09:11)
[2022-04-02] MEDS: MELOXICAM 7.5 MG TAB PO SCH (09:11)
[2022-04-02] MEDS: PREGABALIN 100 MG CAP PO SCH ×2 (09:11→20:45)
[2022-04-02] MEDS: CHOLECALCIFEROL 25 MCG (1000 IU) TABLET PO SCH (09:11)
[2022-04-02] MEDS: FUROSEMIDE 40 MG TAB PO SCH (09:11)
[2022-04-02] MEDS: lisinopriL 10 MG TAB PO SCH (09:31)
[2022-04-02] MEDS: METOPROLOL SUCCINATE (ER) 50 MG TAB.ER.24H PO SCH (09:31)
[2022-04-02 11:51] LABS: Glucose,Whole Blood 102 mg/dL (70-110)
[2022-04-02 16:53] LABS: Glucose,Whole Blood 189 mg/dL (70-110)
[2022-04-02 20:10] LABS: Glucose,Whole Blood 277 mg/dL (70-110)
[2022-04-02] MEDS: ATORVASTATIN 80 MG TAB PO SCH (20:45)
[2022-04-03] MEDS: oxyCODONE-APAP 10-325MG 1 EACH TAB PO PRN ×2 (02:09→21:14)
[2022-04-03] MEDS: CEPHALEXIN 500 MG CAP PO SCH ×3 (02:09→17:23)
--- NOTE | 2022-04-03 04:59 | PN ---
PROGRESS NOTE SUBJECTIVE: This is a 66-year-old gentleman who was admitted with COVID-19 infection, chest pain, being closely monitored at this time. Social Work is planning for placement in the ECF rehab at this time. No chest pain. No palpitation. PHYSICAL EXAMINATION: VITAL SIGNS: Pulse 54, blood pressure 120/76, respirations 18. CHEST: Clear to auscultation. CARDIOVASCULAR: S1, S2. ABDOMEN: Soft. NERVOUS SYSTEM: Diffusely weak. LABS: Reviewed. ASSESSMENT: 1. Chest pain with mildly elevated troponin, possible coronary artery disease. 2. COVID-19 infection. 3. Atrial fibrillation. 4. Multiple medical issues. RECOMMENDATIONS AND DISCUSSION: Recommend to continue current management and symptomatic treatment. PT, OT evaluation. Supervisor [employer] for the ECF rehab/placement. MMBRAULIOL / WILLN: [id number] /
[2022-04-03] MEDS: INSULIN ASPART (NovoLOG) 100 UNIT/ML VIAL SQ SCH ×4 (06:15→21:13)
[2022-04-03 06:16] LABS: Glucose,Whole Blood 96 mg/dL (70-110)
[2022-04-03] MEDS: GLIMEPIRIDE 4 MG TAB PO SCH (06:46)
[2022-04-03] MEDS: PREGABALIN 100 MG CAP PO SCH ×2 (09:33→21:13)
[2022-04-03] MEDS: FUROSEMIDE 40 MG TAB PO SCH (09:33)
[2022-04-03] MEDS: CHOLECALCIFEROL 25 MCG (1000 IU) TABLET PO SCH (09:33)
[2022-04-03] MEDS: TOPIRAMATE 25 MG TAB PO SCH ×2 (09:33→21:13)
[2022-04-03] MEDS: DULoxetine HCL 20 MG CAPSULE.DR PO SCH ×2 (09:33→21:13)
[2022-04-03] MEDS: lisinopriL 10 MG TAB PO SCH (09:33)
[2022-04-03] MEDS: METOPROLOL SUCCINATE (ER) 50 MG TAB.ER.24H PO SCH (09:33)
[2022-04-03] MEDS: AMIODARONE 200 MG TAB PO SCH (09:33)
[2022-04-03] MEDS: MELOXICAM 7.5 MG TAB PO SCH (09:33)
[2022-04-03] MEDS: APIXABAN 5 MG TAB PO SCH ×2 (09:34→21:13)
[2022-04-03 16:48] LABS: Glucose,Whole Blood 162 mg/dL (70-110)
[2022-04-03 20:27] LABS: Glucose,Whole Blood 220 mg/dL (70-110)
[2022-04-03] MEDS: ATORVASTATIN 80 MG TAB PO SCH (21:13)
[2022-04-04] MEDS: CEPHALEXIN 500 MG CAP PO SCH ×2 (02:15→12:22)
[2022-04-04 02:22] VITALS: RESP 16
[2022-04-04 05:57] LABS: Glucose,Whole Blood 124 mg/dL (70-110)
[2022-04-04] MEDS: INSULIN ASPART (NovoLOG) 100 UNIT/ML VIAL SQ SCH ×3 (06:08→16:59)
[2022-04-04] MEDS: oxyCODONE-APAP 10-325MG 1 EACH TAB PO PRN ×2 (06:50→12:22)
[2022-04-04] MEDS: GLIMEPIRIDE 4 MG TAB PO SCH (06:51)
[2022-04-04] MEDS: MELOXICAM 7.5 MG TAB PO SCH (08:04)
[2022-04-04] MEDS: CHOLECALCIFEROL 25 MCG (1000 IU) TABLET PO SCH (08:05)
[2022-04-04] MEDS: PREGABALIN 100 MG CAP PO SCH (08:05)
[2022-04-04] MEDS: DULoxetine HCL 20 MG CAPSULE.DR PO SCH (08:06)
[2022-04-04] MEDS: AMIODARONE 200 MG TAB PO SCH (08:06)
[2022-04-04] MEDS: TOPIRAMATE 25 MG TAB PO SCH (08:06)
[2022-04-04] MEDS: FUROSEMIDE 40 MG TAB PO SCH (08:06)
[2022-04-04] MEDS: APIXABAN 5 MG TAB PO SCH (08:06)
[2022-04-04] MEDS: lisinopriL 10 MG TAB PO SCH (08:06)
[2022-04-04] MEDS: METOPROLOL SUCCINATE (ER) 50 MG TAB.ER.24H PO SCH (08:07)
[2022-04-04 08:15] VITALS: BP 123/72; PULSE 53; TEMP 97.8
--- NOTE | 2022-04-04 08:36 | PN ---
PROGRESS NOTE SUBJECTIVE: This 66-year-old gentleman, who was admitted with COVID-19 infection, also had some leg cellulitis. No chest pain. No palpitation. Workforce Development Vice President and Case Management following on placement. PHYSICAL EXAMINATION: VITAL SIGNS: Pulse 60, blood pressure 111/60, respirations 18. CHEST: Few scattered rhonchi. CARDIOVASCULAR: S1 and S2. ABDOMEN: Soft. LABORATORY DATA: Latest labs reviewed. ASSESSMENT: 1. Chest pain with mildly elevated troponin, possible coronary artery disease. 2. COVID-19 infection. 3. Atrial fibrillation. 4. Multiple medical issues. RECOMMENDATIONS: Continue current medications and symptomatic treatment. Continue medical management, PT/OT evaluation, possible ECF rehab per social Work and Case Management. Further recommendations to follow. MMODL / IJN: [id number] /
[2022-04-04 12:16] LABS: Glucose,Whole Blood 202 mg/dL (70-110)
[2022-04-04 16:50] LABS: Glucose,Whole Blood 166 mg/dL (70-110)
--- NOTE | 2022-04-05 09:03 | DS ---
DISCHARGE SUMMARY FINAL DIAGNOSES: 1. Chest pain with mildly elevated troponin, possible coronary artery disease. 2. COVID-19 infection, acute. 3. Atrial fibrillation. 4. Multiple medical issues. DISCHARGE DISPOSITION: The patient will be discharged in stable condition. Guarded prognosis. loft worker head and outpatient followup have been arranged. HISTORY OF PRESENT ILLNESS: This is a 66-year-old gentleman with a past medical history of multiple medical problems, admitted with chest pain, COVID-19, and multiple medical issues. The patient was treated and medically improved significantly. loft worker head has tried for placement, but apparently, there was no accepting facility. Please refer to social science teacher notes for further information. Otherwise, there is no medical reason to keep the patient here in the hospital. The patient is rather stable, so the patient will be discharged on following advice and medications. PHYSICAL EXAMINATION: VITAL SIGNS: Stable. CARDIOVASCULAR: S1 and S2. ABDOMEN: Soft. NERVOUS SYSTEM: Nonfocal. DISCHARGE ADVICE AND MEDICATIONS: Please refer to discharge reconciliation sheet for list of medications. The patient should be on: 1. Eliquis. 2. Cymbalta. 3. Keflex. 4. Zestril. MMODL / IJN: [id number] /
== END 2022-04-04 18:19 | disposition home or self-care (01) | DRG 178 ==
LOC: EC 06:08 → 3SCARD 07:34
PROVIDERS: ADMIT Internal Medicine; ATTEND Internal Medicine
DX: U07.1 COVID-19 (principal); D68.62 Lupus anticoagulant syndrome; I50.32 Chronic diastolic (congestive) heart failure; L97.312 Non-pressure chronic ulcer of right ankle with fat layer exposed; L97.812 Non-pressure chronic ulcer of other part of right lower leg with fat layer exposed; L03.115 Cellulitis of right lower limb; I83.213 Varicose veins of right lower extremity with both ulcer of ankle and inflammation; I11.0 Hypertensive heart disease with heart failure; E11.51 Type 2 diabetes mellitus with diabetic peripheral angiopathy without gangrene; E11.622 Type 2 diabetes mellitus with other skin ulcer; E11.40 Type 2 diabetes mellitus with diabetic neuropathy, unspecified; E11.65 Type 2 diabetes mellitus with hyperglycemia; Z79.84 Long term (current) use of oral hypoglycemic drugs; E78.5 Hyperlipidemia, unspecified; E83.42 Hypomagnesemia; E87.6 Hypokalemia; F17.210 Nicotine dependence, cigarettes, uncomplicated; F32.A Depression, unspecified; I48.0 Paroxysmal atrial fibrillation; Z95.828 Presence of other vascular implants and grafts; J43.9 Emphysema, unspecified; Z89.612 Acquired absence of left leg above knee; Z66 Do not resuscitate; Z59.00 Homelessness unspecified; Z63.5 Disruption of family by separation and divorce; R53.81 Other malaise; G89.29 Other chronic pain; M54.50 Low back pain, unspecified; F43.23 Adjustment disorder with mixed anxiety and depressed mood; R77.8 Other specified abnormalities of plasma proteins; T38.3X6A Underdosing of insulin and oral hypoglycemic [antidiabetic] drugs, initial encounter; Z91.128 Patient's intentional underdosing of medication regimen for other reason; Z56.0 Unemployment, unspecified; Z79.01 Long term (current) use of anticoagulants; Z79.1 Long term (current) use of non-steroidal anti-inflammatories (NSAID); Z79.82 Long term (current) use of aspirin; Z79.899 Other long term (current) drug therapy; Z82.49 Family history of ischemic heart disease and other diseases of the circulatory system; Z83.3 Family history of diabetes mellitus; Z86.711 Personal history of pulmonary embolism; Z86.718 Personal history of other venous thrombosis and embolism; Z86.73 Personal history of transient ischemic attack (TIA), and cerebral infarction without residual deficits; Z99.3 Dependence on wheelchair; Z86.14 Personal history of Methicillin resistant Staphylococcus aureus infection; Z71.3 Dietary counseling and surveillance; Z28.21 Immunization not carried out because of patient refusal; Z88.8 Allergy status to other drugs, medicaments and biological substances
CPT/HCPCS: 36415; 71046; 71275; 80048; 80053; 82306; 83735; 83880; 84443; 84484; 85025; 85027; 85379; 85610; 85730; 87635; 93005; 94760; 96365; 96374; 99285

== ENCOUNTER 2022-05-28 12:25 | Inpatient (IN) | payer MEDICARE ==
[2022-05-28 12:37] LABS: Glucose,Whole Blood 201 mg/dL (70-110)
[2022-05-28] MEDS ORDERED: HEPARIN SODIUM 1,000 UN/ML (10ML VL) IV ONE (12:47)
[2022-05-28 12:58] LABS: Basophils # (A) 0.1 k/uL (0-0.2); Basophils % (A) 1 %; Eosinophils # (A) 0.2 k/uL (0-0.7); Eosinophils % (A) 2 %; Hypochromasia Moderate; Lymphocytes # (A) 1.5 k/uL (1.0-4.8); Lymphocytes % (A) 15 %; MCH 29.5 pg (25.0-35.0); MCHC 32.3 g/dL (31.0-37.0); MCV 91.2 fL (80.0-100.0); Mean Platelet Volume 7.6; Monocytes # (A) 0.5 k/uL (0-1.0); Monocytes % (A) 5 %; Neutrophils # (A) 7.5 k/uL (1.3-7.7); Neutrophils % (A) 76 %; Platelet Count 406 k/uL (150-450); RBC 4.05 m/uL (4.30-5.90); RDW 14.4 % (11.5-15.5); WBC 9.9 k/uL (3.8-10.6)
--- NOTE | 2022-05-28 13:14 | XR ---
EXAMINATION TYPE: XR chest 2V DATE OF EXAM: 05/28/2022 COMPARISON: 03/27/2022 HISTORY: 67-year-old male with chest pain and shortness of breath TECHNIQUE: AP and lateral views FINDINGS: Heart borderline enlarged. Diffuse interstitial and vascular density. Hyperinflation. Small pleural e ffusions, left greater right. Patchy left basilar opacity. IMPRESSION: COPD with borderline cardiomegaly and diffuse interstitial change. Small left greater than right pleu ral effusions with adjacent atelectasis and/or consolidation particularly on the left. Correlate for CHF with developing interstitial pulmonary edema.
[2022-05-28] MEDS: HEPARIN SOD,PORK IN 0.45% NACL 25,000 UNIT in 0.45% NACL 1 250ML.BAG IV SCH (13:19)
[2022-05-28 13:22] LABS: ALT 15 U/L (4-49); AST 17 U/L (17-59); African American GFR (CKD) >90 (>60 ml/min/1.73 sqM); Albumin 3.3 g/dL (3.5-5.0); Alkaline Phosphatase 101 U/L (38-126); Anion Gap 5 mmol/L; Blood Urea Nitrogen 19 mg/dL (9-20); Calcium 8.1 mg/dL (8.4-10.2); Carbon Dioxide 25 mmol/L (22-30); Chloride 105 mmol/L (98-107); Glucose 200 mg/dL (74-99); Magnesium 2.1 mg/dL (1.6-2.3); Non-African American GFR(CKD) 88 (>60 ml/min/1.73 sqM); Potassium 4.7 mmol/L (3.5-5.1); Sodium 135 mmol/L (137-145); Total Bilirubin 0.2 mg/dL (0.2-1.3); Total Protein 6.9 g/dL (6.3-8.2)
[2022-05-28 13:24] LABS: Partial Thromboplastin Time 22.3 sec (22.0-30.0); Prothrombin Time 11.2 sec (9.0-12.0)
--- NOTE | 2022-05-28 14:11 | ED ---
General Adult HPI - General Chief complaint: Chest Pain Stated complaint: chest pain, sob Time Seen by Provider: 05/28/22 12:40 Source: patient, RN notes reviewed, old records reviewed Mode of arrival: ambulatory Limitations: no limitations - History of Present Illness Initial comments: This is a 67-year-old male with past medical history significant for diabetes pulmonary was DVTs. Patient also has atrial fibrillation. Patient states he had an amputation above the knee on the left secondary to altered chronic DVTs. Patient states she supposed be on eliquis. He does not take it. Patient states he does not take his diabetic medications and hasn't for a while. Patient states he also continues to smoke. Patient presents today because of chest pain or shortness of breath. Patient also states she's had a bit of a cough but no fever chills and he has is some positive sputum production. Patient denies any abdominal pain patient denies nausea vomiting diarrhea. - Related Data Home Medications Medication Instructions Recorded Confirmed Atorvastatin [Lipitor] 80 mg PO HS 01/09/14 03/27/22 Topiramate [Topamax] 25 mg PO BID 01/09/14 03/27/22 Nortriptyline [Pamelor] 50 mg PO HS 08/15/19 03/27/22 Omeprazole [PriLOSEC] 20 mg PO BID 08/15/19 03/27/22 Loratadine 10 mg PO HS 10/30/19 03/27/22 Metoprolol Succinate (ER) [Toprol 50 mg PO DAILY 02/29/20 03/27/22 XL] Docusate [Colace] 100 mg PO DAILY 05/19/20 03/27/22 Multivitamins, Thera [Multivitamin 1 tab PO DAILY 10/16/20 03/27/22 (formulary)] Celecoxib [CeleBREX] 200 mg PO DAILY 06/02/21 03/27/22 Pioglitazone [Actos] 30 mg PO DAILY 06/02/21 03/27/22 Potassium Chloride [Klor-Con 10 ER] 10 meq PO DAILY 06/02/21 03/27/22 metFORMIN HCL 500 mg PO BID 06/02/21 03/27/22 Glimepiride [Amaryl] 4 mg PO [id number] 09/07/21 03/27/22 Pregabalin [Lyrica] 300 mg PO BID 09/07/21 03/27/22 Nicotine 14Mg/24Hr Patch [Habitrol] 1 patch TRANSDERM DAILY PRN 11/14/21 03/27/22 Amiodarone [Cordarone] 200 mg PO DAILY 03/27/22 03/27/22 Previous Rx's Medication Instructions Recorded Furosemide [Lasix] 40 mg PO DAILY #30 tablet 12/29/20 Apixaban [Eliquis] 5 mg PO BID #60 tab 03/29/22 Acetaminophen Tab [Tylenol] 650 mg PO Q6HR PRN tab 03/31/22 Cephalexin [Keflex] 500 mg PO Q8HR 3 Days #9 cap 03/31/22 DULoxetine HCL [Cymbalta] 20 mg PO BID 30 Days #60 cap 03/31/22 lisinopriL [Zestril] 10 mg PO DAILY 30 Days #30 tab 03/31/22 Allergies Allergy/AdvReac Type Severity Reaction Status Date / Time baclofen Allergy Unknown Verified 05/28/22 12:38 Review of Systems ROS Statement: Those systems with pertinent positive or pertinent negative responses have been documented in the HPI. ROS Other: All systems not noted in ROS Statement are negative. Past Medical History Past Medical History: Atrial Fibrillation, Asthma, COPD, CVA/TIA, Diabetes Me llitus, Deep Vein Thrombosis (DVT), GERD/Reflux, Hyperlipidemia, Hypertension, Neurologic Disorder, Osteoarthritis (OA), Pneumonia, Pulmonary Embolus (PE), Skin Disorder, Vascular Disorder Additional Past Medical History / Comment(s): Pt admitted to [facility] on 11/20/20 with hyperkalemia, hyperglycemia, uncontrolled diabetes. Other hx: Lupus anticoagulant, DVTs bilateral legs, PEs bilateral lungs, pt has zina filter, L AKA/wheelchair bound, NIDDM type II, neuropathy bilateral hands, wound care patient for buttock wound, now healed, TIAs, pneumothorax, past migraines, chronic low back pain, R leg edema at times, varicosities. History of Any Multi-Drug Resistant Organisms: MRSA Date of last positivie culture/infection: 06/04/21 MDRO Source:: Right Leg MRSA Past Surgical History: Adenoidectomy, Appendectomy, Tonsillectomy Additional Past Surgical History / Comment(s): 1980s [place] filter, stents in vessels "in pelvic area", total L hip arthroplasty, vein strippings, colonoscopy. left leg amputation Past Anesthesia/Blood Transfusion Reactions: No Reported Reaction Additional Past Anesthesia/Blood Transfusion Reaction / Comment(s): Pt has received blood in past without reaction. Past Psychological History: No Psychological Hx Reported Smoking Status: Current every day smoker Past Alcohol Use History: None Reported Past Drug Use History: Marijuana - Past Family History Mother Family Medical History: Coronary Artery Disease (CAD), Myocardial Infarction (NH), Vascular Disorder Additional Family Medical History / Comment(s): heart disease, peripheral vascular disease. Father Family Medical History: Diabetes Mellitus, Renal Disease General Exam - General Exam Comments Initial Comments: GENERAL: Patient is well-developed and well-nourished. Patient is nontoxic and well- hydrated and is in mild distress. ENT: Neck is soft and supple. No significant lymphadenopathy is noted. Oropharynx i s clear. Moist mucous membranes. Neck has full range of motion without eliciting any pain. EYES: The sclera were anicteric and conjunctiva were pink and moist. Extraocular movements were intact and pupils were equal round and reactive to light. Eyelids were unremarkable. PULMONARY: Unlabored respirations. Good breath sounds bilaterally. No audible rales rhonchi or wheezing was noted. CARDIOVASCULAR: There is a regular rate and rhythm without any murmurs gallops or rubs. ABDOMEN: Soft and nontender with normal bowel sounds. SKIN: Skin is clear with no lesions or rashes and otherwise unremarkable. NEUROLOGIC: Patient is alert and oriented x3. Cranial nerves II through XII are grossly intact. Motor and sensory are also intact. Normal speech, volume and content. Symmetrical smile. MUSCULOSKELETAL: Patient has an [id number] and dictation on the left. Patient has edema in the right leg 2+ and he states is chronic. LYMPHATICS: No significant lymphadenopathy is noted PSYCHIATRIC: Normal psychiatric evaluation. Limitations: no limitations Course Vital Signs 05/28/22 12:39 Temperature 97.9 F Pulse Rate 88 Respiratory 18 Rate Blood Pressure 134/95 O2 Sat by Pulse 96 Oximetry Medical Decision Making - Medical Decision Making I interpret EKG shows a sinus rhythm at 83 bpm GA interval 189 QRS is under 90 QT intervals 394 QTC is 434 per patient's EKG shows no ST segment elevation. I interpreted the chest x-ray showed congestive heart failure. Patient's d-dimer was elevated so a CAT scan the patient's chest. Patient is given Lasix and Nitropaste emergency department. Patient was placed on heparin because of the A. fib as well as the fact the patient has a history of DVTs and PEs. I spoke with the [facility] he agreed to admit the patient to the patient wrote admitting orders. I continued Lasix and Nitropaste on the floor. - Lab Data Result diagrams: 05/28/22 12:49 05/28/22 12:49 Lab Results 05/28/22 05/28/22 05/28/22 Range/Units 12:34 12:49 12:49 WBC 9.9 (3.8-10.6) k/uL RBC 4.05 L (4.30-5.90) m/uL Hgb 12.0 L (13.0-17.5) gm/dL Hct 37.0 L (39.0-53.0) % MCV 91.2 (80.0-100.0) fL MCH 29.5 (25.0-35.0) pg MCHC 32.3 (31.0-37.0) g/dL RDW 14.4 (11.5-15.5) % Plt Count 406 (150-450) k/uL MPV 7.6 Neutrophils % 76 % Lymphocytes % 15 % Monocytes % 5 % Eosinophils % 2 % Basophils % 1 % Neutrophils # 7.5 (1.3-7.7) k/uL Lymphocytes # 1.5 (1.0-4.8) k/uL Monocytes # 0.5 (0-1.0) k/uL Eosinophils # 0.2 (0-0.7) k/uL Basophils # 0.1 (0-0.2) k/uL Hypochromasia Moderate PT 11.2 (9.0-12.0) sec INR 1.0 (<1.2) APTT 22.3 (22.0-30.0) sec D-Dimer 1.05 H (<0.60) mg/L FEU Sodium (137-145) mmol/L Potassium (3.5-5.1) mmol/L Chloride (98-107) mmol/L Carbon Dioxide (22-30) mmol/L Anion Gap mmol/L BUN (9-20) mg/dL Creatinine (0.66-1.25) mg/dL Est GFR (CKD-EPI)AfAm (>60 ml/min/1.73 sqM) Est GFR (CKD-EPI)NonAf (>60 ml/min/1.73 sqM) Glucose (74-99) mg/dL POC Glucose (mg/dL) 201 H (70-110) mg/dL POC Glu [employer] In[employer] ID Anna Ramirez Calcium (8.4-10.2) mg/dL Magnesium (1.6-2.3) mg/dL Total Bilirubin (0.2-1.3) mg/dL AST (17-59) U/L ALT (4-49) U/L Alkaline Phosphatase (38-126) U/L Troponin I (0.000-0.034) ng/mL NT-Pro-B Natriuret Pep pg/mL Total Protein (6.3-8.2) g/dL Albumin (3.5-5.0) g/dL 05/28/22 05/28/22 05/28/22 Range/Units 12:49 12:49 12:49 WBC (3.8-10.6) k/uL RBC (4.30-5.90) m/uL Hgb (13.0-17.5) gm/dL Hct (39.0-53.0) % MCV (80.0-100.0) fL MCH (25.0-35.0) pg MCHC (31.0-37.0) g/dL RDW (11.5-15.5) % Plt Count (150-450) k/uL MPV Neutrophils % % Lymphocytes % % Monocytes % % Eosinophils % % Basophils % % Neutrophils # (1.3-7.7) k/uL Lymphocytes # (1.0-4.8) k/uL Monocytes # (0-1.0) k/uL Eosinophils # (0-0.7) k/uL Basophils # (0-0.2) k/uL Hypochromasia PT (9.0-12.0) sec INR (<1.2) APTT (22.0-30.0) sec D-Dimer (<0.60) mg/L FEU Sodium 135 L (137-145) mmol/L Potassium 4.7 (3.5-5.1) mmol/L Chloride 105 (98-107) mmol/L Carbon Dioxide 25 (22-30) mmol/L Anion Gap 5 mmol/L BUN 19 (9-20) mg/dL Creatinine 0.91 (0.66-1.25) mg/dL Est GFR (CKD-EPI)AfAm >90 (>60 ml/min/1.73 sqM) Est GFR (CKD-EPI)NonAf 88 (>60 ml/min/1.73 sqM) Glucose 200 H (74-99) mg/dL POC Glucose (mg/dL) (70-110) mg/dL POC Glu [employer] Instructor ID Calcium 8.1 L (8.4-10.2) mg/dL Magnesium 2.1 (1.6-2.3) mg/dL Total Bilirubin 0.2 (0.2-1.3) mg/dL AST 17 (17-59) U/L ALT 15 (4-49) U/L Alkaline Phosphatase 101 (38-126) U/L Troponin I 0.045 H* (0.000-0.034) ng/mL NT-Pro-B Natriuret Pep 76595 pg/mL Total Protein 6.9 (6.3-8.2) g/dL Albumin 3.3 L (3.5-5.0) g/dL Critical Care Time Critical Care Time: Yes Total Critical Care Time: 35 Disposition Clinical Impression: Acute pulmonary edema, Chest pain, History of DVT (deep vein thrombosis), Noncompliance with diabetes treatment, Noncompliant with deep vein thrombosis (DVT) prophylaxis, Elevated troponin Disposition: ADMITTED IP TO THIS [facility] Time of Disposition: 14:57
[2022-05-28] MEDS ORDERED: FUROSEMIDE 10 MG/ML 4 ML VIAL IV STA (14:21)
--- NOTE | 2022-05-28 15:15 | CT ---
EXAMINATION TYPE: CT chest angio for PE DATE OF EXAM: 05/28/2022 COMPARISON: 03/27/2022 HISTORY: elevated d-dimer CT DLP: 626.6 mGycm Automated exposure control for dose reduction was used. CONTRAST: Performed with IV Contrast, patient injected with 100 mL of Isovue 370. There are Three-D postprocessed images. There is diffuse bullous pulmonary emphysema. There are some mild groundglass interstitial increased density in the lung swartz. There are multiple enlarged mediastinal and bronchial lymph nodes up to 2 .5 cm. Thoracic aorta is atheromatous. No evidence of filling defect in the pulmonary arteries. Heart size is normal. No pericardial effusion. There is bilateral lower lobe pulmonary airspace consolidat ion and atelectasis. There is small right pleural effusion. There is some spurring in the thoracic spine. Sternum is intact. No compression fracture. IMPRESSION: No evidence of pulmonary embolism. Mediastinal and bronchial adenopathy. Bilateral lower lobe pneumonia and atelectasis with right pleural effusion which are increased compar ed to old exam. Emphysema. Pulmonary fibrosis.
[2022-05-28 16:49] LABS: Glucose,Whole Blood 124 mg/dL (70-110)
[2022-05-28] MEDS: NITROGLYCERIN OINT 1 INCH/GM PACKET TOPICAL SCH ×2 (16:55→21:22)
[2022-05-28 20:50] LABS: Glucose,Whole Blood 215 mg/dL (70-110)
[2022-05-28] MEDS: HYDROcodone/APAP 5-325MG 1 EACH TAB PO PRN (21:21)
[2022-05-28] MEDS: INSULIN ASPART (NovoLOG) 100 UNIT/ML VIAL SQ SCH (21:23)
[2022-05-28] MEDS: FUROSEMIDE 10 MG/ML 4 ML VIAL IV SCH (23:58)
[2022-05-29] MEDS: HYDROcodone/APAP 5-325MG 1 EACH TAB PO PRN ×3 (03:30→21:35)
--- NOTE | 2022-05-29 03:51 | HP ---
HISTORY AND PHYSICAL CHIEF COMPLAINT: Chest pain and multiple other complaints. HISTORY OF PRESENT ILLNESS: This is a 67-year-old man with past medical history of multiple medical problems including DVT, diabetes, and atrial fibrillation, who also had amputation above the knee on the left side. The patient apparently continued to smoke and the patient was supposed to be on Eliquis. The patient is only taking once a day because of chest pains according to him and the patient on occasion has chest pains on the deep part of the chest. Patient came to [facility]. Troponins are slightly elevated. The patient was admitted for further evaluation and treatment. There is no history of any fever, rigors, chills. PAST MEDICAL HISTORY: Reviewed, which include atrial fibrillation, asthma, CAD. The rest of the history and all charts reviewed. HOME MEDICATIONS: Metformin and dose and rest of medications reviewed. ALLERGIES: Reviewed include baclofen. FAMILY HISTORY: History of CAD. Reviewed. SOCIAL HISTORY: History of THC, history of smoking continued and ongoing. REVIEW OF SYSTEMS: A 14-point review is negative except as mentioned earlier. PHYSICAL EXAMINATION: VITAL SIGNS: Pulse is 88, blood pressure 135/94, respirations 18. HEENT: Conjunctivae are normal. NECK: No jugular venous distention. CARDIOVASCULAR: S1, S2. RESPIRATIONS: Breath sounds diminished at the bases. A few scattered rhonchi and crackles. Expiratory wheezing also present. ABDOMEN: Soft and nontender. LEGS: No edema. No swelling. NERVOUS SYSTEM: No focal deficit. SKIN: No ulcers. JOINTS: No active deforming arthropathy. Examination of the right hand, some excoriations present. Cellulitis present. LABORATORY DATA: Reviewed. WBC 9.9, hemoglobin is 12. Troponin ntd ASSESSMENT: 1. Chest pain, possible unstable angina. Possible acute yol-AS-tomoihd-elevation myocardial infarction with troponin 0.045. 2. Cellulitis of the right hand. 3. Continued ongoing nicotine dependence. 4. Atrial fibrillation. 5. History of asthma. 6. Multiple medical issues. RECOMMENDATIONS: This is a 67-year-old gentleman who presented with multiple complex medical issues. We will monitor the patient closely. Acute coronary syndrome protocol. Otherwise, I would also recommend Cardiology consultation, empiric antibiotics for the cellulitic process of the hand, right hand x-ray to rule out the possibility of fracture. Prognosis guarded because of multiple complex medical issues and further recommendations to follow. The importance of compliance was also stressed to the patient. MMBRAULIOL / IJN: [id number] / MICHEAL
[2022-05-29 06:09] LABS: Glucose,Whole Blood 113 mg/dL (70-110)
[2022-05-29] MEDS: INSULIN ASPART (NovoLOG) 100 UNIT/ML VIAL SQ SCH ×4 (06:17→21:30)
--- NOTE | 2022-05-29 08:52 | US ---
EXAMINATION TYPE: US venous doppler duplex LE RT DATE OF EXAM: 05/29/2022 8:31 AM COMPARISON: NONE CLINICAL HISTORY: 67-year-old male rule out DVT, cellulitis, edema. Known cellulitis within right leg , edema, no history of DVT, left leg is amputated SIDE PERFORMED: Right TECHNIQUE: The lower extremity deep venous system is examined utilizing real time linear array sonog andrea with graded compression, doppler sonography and color-flow sonography. FINDINGS: VESSELS IMAGED: Common Femoral Vein Deep Femoral Vein Greater Saphenous Vein * Femoral Vein Popliteal Vein Small Saphenous Vein * Proximal Calf Veins Posterior tibial veins (* superficial vessels) Right Leg: Negative for DVT Mild subcutaneous soft tissue swelling in the calf. IMPRESSION: No evidence for DVT within the right lower extremity.
[2022-05-29] MEDS: NITROGLYCERIN OINT 1 INCH/GM PACKET TOPICAL SCH ×4 (09:33→21:36)
[2022-05-29] MEDS: FUROSEMIDE 10 MG/ML 4 ML VIAL IV SCH ×3 (09:33→23:33)
--- NOTE | 2022-05-29 10:08 | XR ---
EXAMINATION TYPE: XR hand complete RT DATE OF EXAM: 05/29/2022 COMPARISON: NONE HISTORY: 67-year-old male, rule out fracture TECHNIQUE: 3 views FINDINGS: There is chronic loss of the tuft of the second distal phalanx. Moderate degenerative torrez e second and third CMC joints with joint space narrowing. Moderate degenerative change first CMC and triscaphe joints. Degenerative spurring along the dorsal second metacarpal head. Tiny retained metal wire density along the helpful measuring 2.5 mm. No acute fracture, subluxation, or dislocation. IMPRESSION: 1. Chronic loss to both soft tissue and bony tuft of the distal index finger. Correlate for history o f prior injury 2. Moderate OA second and third CMC joints and at the basal joint of the thumb. 3. No acute osseous abnormality seen.
[2022-05-29 12:00] LABS: Glucose,Whole Blood 191 mg/dL (70-110)
[2022-05-29] MEDS ORDERED: diphenhydrAMINE 50 MG/ML 1 ML VIAL IVP PRN (12:01)
--- NOTE | 2022-05-29 12:02 | P.CRDCN ---
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 Bilateral stents in the iliac artery. Patient follows with Dr. Heaton in the office. Consult to see the patient for chest pain. Patient came in initially complaining of shortness of breath and chest pain. Patient states started the D is intermittent. Patient is on warfarin and is noncompliant with his medications. INR was 1. He is currently on heparin drip. his EKG showed sinus rhythm with sinus arrhythmia. His troponins were 0.046, 0.044, 0.045. Patient's BNP was 12,700 he is on IV Lasix 40 mg every 8hr. Patient's d-dimer was elevated CTA of the chest was negative for pulmonary embolism, did show pneumonia with right pleural effusion, emphysema, and pulmonary fibrosis. He is a current smoker. He underwent an ultrasound of his right lower leg to rule out DVT. He underwent an echocardiogram in November of this year which showed a normal LV function with an ejection fraction 55-60%. Patient's home lisinopril, metoprolol, atorvastatin, amiodarone. And obtain a 2-D echocardiogram Review of Systems REVIEW OF SYSTEMS At the time of my exam: CONSTITUTIONAL: Denies fever or chills. EYES: Negative for vision changes ENT: Negative for hearing loss CARDIOVASCULAR: Denies chest pain, shortness of breath, diaphoresis, orthopnea, PND or palpitations. VASCULAR: Denies edema RESPIRATORY: Denies cough. GASTROINTESTINAL: Denies abdominal pain, diarrhea, constipation, nausea or v omiting. MUSCULOSKELETAL: Denies myalgias. NEUROLOGIC: Denies numbness, tingling, headache or weakness. ENDOCRINE: Denies fatigue, weight change, polydipsia or polyurina. GENITOURINARY: Denies burning, hematuria or urgency with micturation. HEMATOLOGIC: Denies history of anemia or bleeding. DERMATOLOGY: Denies rash or skin sores PSYCH: Negative for depression or hallucinations. Past Medical History Past Medical History: Atrial Fibrillation, Asthma, COPD, CVA/TIA, Diabetes Mellitus, Deep Vein Thrombosis (DVT), GERD/Reflux, Hyperlipidemia, Hypertension, Neurologic Disorder, Osteoarthritis (OA), Pneumonia, Pulmonary Embolus (PE), Skin Disorder, Vascular Disorder Additional Past Medical History / Comment(s): Pt admitted to [facility] on 11/20/20 with hyperkalemia, hyperglycemia, uncontrolled diabetes. Other hx: Lupus anticoagulant, DVTs bilateral legs, PEs bilateral lungs, pt has zina filter, L AKA/wheelchair bound, NIDDM type II, neuropathy bilateral hands, wound care patient for buttock wound, now healed, TIAs, pneumothorax, past migraines, chronic low back pain, R leg edema at times, varicosities. History of Any Multi-Drug Resistant Organisms: MRSA Date of last positivie culture/infection: 06/04/21 MDRO Source:: Right Leg MRSA Past Surgical History: Adenoidectomy, Appendectomy, Tonsillectomy Additional Past Surgical History / Comment(s): 1980s [place] filter, stents in vessels "in pelvic area", total L hip arthroplasty, vein strippings, colonoscopy. left leg amputation Past Anesthesia/Blood Transfusion Reactions: No Reported Reaction Additional Past Anesthesia/Blood Transfusion Reaction / Comment(s): Pt has received blood in past without reaction. Past Psychological History: No Psychological Hx Reported Smoking Status: Current every day smoker Past Alcohol Use History: None Reported Past Drug Use History: Marijuana - Past Family History Mother Family Medical History: Coronary Artery Disease (CAD), Myocardial Infarction ([place]), Vascular Disorder Additional Family Medical History / Comment(s): heart disease, peripheral vascular disease. Father Family Medical History: Diabetes Mellitus, Renal Disease Medications and Allergies Home Medications Medication Instructions Recorded Confirmed Type Atorvastatin [Lipitor] 80 mg PO DIRECTED 01/09/14 05/28/22 History Topiramate [Topamax] 25 mg PO DIRECTED 01/09/14 05/28/22 History Nortriptyline [Pamelor] 50 mg PO DIRECTED 08/15/19 05/28/22 History Omeprazole [PriLOSEC] 20 mg PO DIRECTED 08/15/19 05/28/22 History Loratadine 10 mg PO DIRECTED 10/30/19 05/28/22 History Metoprolol Succinate (ER) [Toprol 50 mg PO DIRECTED 02/29/20 05/28/22 History XL] Celecoxib [CeleBREX] 200 mg PO DIRECTED 06/02/21 05/28/22 History Pioglitazone [Actos] 30 mg PO DIRECTED 06/02/21 05/28/22 History Potassium Chloride [Klor-Con 10 ER] 10 meq PO DIRECTED 06/02/21 05/28/22 History metFORMIN HCL 500 mg PO DIRECTED 06/02/21 05/28/22 History Glimepiride [Amaryl] 4 mg PO DIRECTED 09/07/21 05/28/22 History Pregabalin [Lyrica] 300 mg PO DIRECTED 09/07/21 05/28/22 History Amiodarone [Cordarone] 200 mg PO DIRECTED 03/27/22 05/28/22 History Acetaminophen/Diphenhydramine 1 - 2 tab PO QID PRN 05/28/22 05/28/22 History [Tylenol PM 500-25mg] DULoxetine HCL [Cymbalta] 20 mg PO DIRECTED 05/28/22 05/28/22 History Furosemide [Lasix] 40 mg PO DIRECTED 05/28/22 05/28/22 History Ibuprofen [Advil] 400 mg PO Q6H PRN 05/28/22 05/28/22 History Warfarin [Coumadin] 3 mg PO DIRECTED 05/28/22 05/28/22 History lisinopriL [Zestril] 10 mg PO DIRECTED 05/28/22 05/28/22 History Allergies Allergy/AdvReac Type Severity Reaction Status Date / Time baclofen Allergy Unknown Verified 05/28/22 15:59 apixaban [From Eliquis] AdvReac "felt Verified 05/28/22 16:12 funny" Physical Exam Vitals: Vital Signs Temp Pulse Pulse Resp BP BP Pulse Ox 05/29/22 11:35 97.8 F 76 20 126/72 97 05/29/22 09:31 98.4 F 86 18 147/79 95 05/29/22 08:49 94 L 05/29/22 03:33 97.7 F 89 20 132/78 96 05/28/22 23:57 83 18 131/73 97 05/28/22 20:12 98.1 F 87 16 139/85 98 05/28/22 16:59 97.8 F 86 16 153/87 97 05/28/22 12:39 97.9 F 88 18 134/95 96 Intake and Output 05/28/22 05/29/22 05/29/22 22:59 06:59 14:59 Intake Total 324.426 85.525 320.049 Output Total 2650 1000 650 Balance -2325.574 -914.475 -329.951 Intake: IV 240 .9@20 240 Intake, IV Titration 84.426 85.525 80.049 Amount Heparin Sod,Pork in 0.45% 84.426 85.525 80.049 NaCl 25,000 unit In 0.45 % NaCl 1 250ml.bag @ 12 UNITS/KG/HR 9.798 mls/hr IV .Q24H [facility] Rx#: [id number] Oral 240 Output: Urine 2650 1000 650 Other: Voiding Method Urinal Urinal Urinal # Voids 2 1 Weight 81.647 kg 91.3 kg General: The patient is awake and alert, in no distress, and does not appear acutely ill. Skin: Skin is warm and dry and no rashes or lesions are noted. Eye: Pupils are equal, round and reactive to light, extra-ocular movements are intact; there is normal conjunctiva bilaterally. Ears, nose, mouth and throat: There are moist mucous membranes and no oral lesions. Neck: The neck is supple, there is no tenderness or JVD. Cardiovascular: There is irregular regular rate and rhythm. No murmur, rub or gallop is appreciated. Respiratory: Lungs are clear to auscultation, respirations are non-labored, breath sounds are equal. Gastrointestinal: Soft, non-distended, non-tender abdomen without masses or organomegaly noted. There is no rebound or guarding present. Bowel sounds are unremarkable. Back: There is no tenderness to palpation in the midline. There is no obvious deformity. Musculoskeletal: Normal ROM, no tenderness, There is no pedal edema. There is no calf tenderness or swelling. Extremities: Mild pitting edema, left AKA Vascular: Femoral pulse is normal. Posterior tibial pulses are normal .Dorsalis pedis is palpable. Neurological: CN II-XII intact. There are no obvious motor or sensory deficits. Speech is normal. Psychiatric: Cooperative, appropriate mood & affect, normal judgment Results 05/28/22 12:49 05/28/22 12:49 Cardiac Enzymes 05/28/22 05/28/22 05/28/22 Range/Units 12:49 12:49 15:33 AST 17 (17-59) U/L Troponin I 0.045 H* 0.044 H* (0.000-0.034) ng/mL 05/28/22 Range/Units 20:50 AST (17-59) U/L Troponin I 0.046 H* (0.000-0.034) ng/mL Coagulation 05/28/22 05/28/22 05/29/22 Range/Units 12:49 20:58 03:41 PT 11.2 (9.0-12.0) sec APTT 22.3 26.7 27.8 (22.0-30.0) sec 05/29/22 Range/Units 11:10 PT (9.0-12.0) sec APTT 30.6 H (22.0-30.0) sec CBC 05/28/22 Range/Units 12:49 WBC 9.9 (3.8-10.6) k/uL RBC 4.05 L (4.30-5.90) m/uL Hgb 12.0 L (13.0-17.5) gm/dL Hct 37.0 L (39.0-53.0) % Plt Count 406 (150-450) k/uL Comprehensive Metabolic Panel 05/28/22 Range/Units 12:49 Sodium 135 L (137-145) mmol/L Potassium 4.7 (3.5-5.1) mmol/L Chloride 105 (98-107) mmol/L Carbon Dioxide 25 (22-30) mmol/L BUN 19 (9-20) mg/dL Creatinine 0.91 (0.66-1.25) mg/dL Glucose 200 H (74-99) mg/dL Calcium 8.1 L (8.4-10.2) mg/dL AST 17 (17-59) U/L ALT 15 (4-49) U/L Alkaline Phosphatase 101 (38-126) U/L Total Protein 6.9 (6.3-8.2) g/dL Albumin 3.3 L (3.5-5.0) g/dL Current Medications Generic Name Dose Route Start Last Admin Trade Name Freq PRN Reason Stop Dose Admin Hydrocodone Bitart/Acetaminophen 1 each 05/28/22 20:33 05/29/22 03:30 Hydrocodone/Apap 5-325mg 1 Each Tab PO 1 each Q6HR PRN Administration Pain Furosemide 40 mg 05/29/22 00:00 05/29/22 09:33 Furosemide 10 Mg/Ml 4 Ml Vial IV 40 mg Q8H HELENE Administration Heparin Sodium/Sodium Chloride 250 mls @ 9.798 mls/hr 05/28/22 13:00 05/29/22 11:46 25,000 unit/ Sodium Chloride IV Infused .Q24H [facility] Titration Protocol 12 UNITS/KG/HR Insulin Aspart 0 unit 05/28/22 21:00 05/29/22 06:17 Insulin Aspart (Novolog) 100 Unit/Ml Vial SQ Not Given ACHS [facility] Protocol Nitroglycerin 1 inch 05/28/22 18:00 05/29/22 11:47 Nitroglycerin Oint 1 Inch/Gm Packet TOPICAL Not Given QID [facility] Intake and Output 05/28/22 05/29/22 05/29/22 22:59 06:59 14:59 Intake Total 324.426 85.525 320.049 Output Total 2650 1000 650 Balance -2325.574 -914.475 -329.951 Intake: IV 240 .9@20 240 Intake, IV Titration 84.426 85.525 80.049 Amount Heparin Sod,Pork in 0.45% 84.426 85.525 80.049 NaCl 25,000 unit In 0.45 % NaCl 1 250ml.bag @ 12 UNITS/KG/HR 9.798 mls/hr IV .Q24H [facility] Rx#: [id number] Oral 240 Output: Urine 2650 1000 650 Other: Voiding Method Urinal Urinal Urinal # Voids 2 1 Weight 81.647 kg 91.3 kg 05/28/22 12:49 05/28/22 12:49 Assessment and Plan Assessment: Elevated troponin rule out coronary artery disease Acute congestive heart failure unspecified Cellulitis of the right hand History of atrial fibrillation Plan: Reorder home cardiac medications Obtain a 2-D echocardiogram Continue with IV heparin Further recommendations based on clinical course The above impression and plan of care have been discussed and directed by the signing physician. Nannette Lakhani, nurse practitioner, acting as scribe for signing physician.
[2022-05-29] MEDS: HEPARIN SOD,PORK IN 0.45% NACL 25,000 UNIT in 0.45% NACL 1 250ML.BAG IV SCH (12:04)
[2022-05-29] MEDS: BACITRACIN ZINC 500 UNIT/GM OINT 28.4 GM TUBE TOPICAL SCH ×3 (15:07→21:36)
[2022-05-29] MEDS: lisinopriL 10 MG TAB PO SCH ×2 (15:07→15:11)
[2022-05-29] MEDS: AMIODARONE 200 MG TAB PO SCH (15:07)
[2022-05-29] MEDS: METOPROLOL SUCCINATE (ER) 50 MG TAB.ER.24H PO SCH (15:07)
[2022-05-29] MEDS ORDERED: NON FORMULARY DRUG (Acetaminophen/Diphenhydramine [Tylenol Pm 500-25mg] 1 EACH Tablet) PO PRN (15:29)
[2022-05-29] MEDS ORDERED: WARFARIN 5 MG TAB PO SCH (15:30)
[2022-05-29] MEDS: PIOGLITAZONE 30 MG TAB PO SCH (16:26)
[2022-05-29] MEDS: POTASSIUM CHLORIDE ER 10 MEQ TAB.ER.PRT PO SCH (16:31)
[2022-05-29 16:47] LABS: Glucose,Whole Blood 255 mg/dL (70-110)
[2022-05-29 16:48] LABS: INR 1.1 (<1.2); Prothrombin Time 11.9 sec (9.0-12.0)
[2022-05-29 20:35] LABS: Glucose,Whole Blood 81 mg/dL (70-110)
[2022-05-29] MEDS: LORATADINE 10 MG TAB PO SCH (21:34)
[2022-05-29] MEDS: PREGABALIN 100 MG CAP PO SCH (21:34)
[2022-05-29] MEDS: ATORVASTATIN 80 MG TAB PO SCH (21:34)
[2022-05-29] MEDS: NORTRIPTYLINE 25 MG CAP PO SCH (21:34)
[2022-05-29] MEDS: TOPIRAMATE 25 MG TAB PO SCH (21:34)
[2022-05-29] MEDS: metFORMIN 500 MG TAB PO SCH (21:34)
[2022-05-29] MEDS: DULoxetine HCL 20 MG CAPSULE.DR PO SCH (21:35)
[2022-05-30] MEDS: HEPARIN SOD,PORK IN 0.45% NACL 25,000 UNIT in 0.45% NACL 1 250ML.BAG IV SCH ×3 (03:24→16:53)
--- NOTE | 2022-05-30 05:59 | PN ---
PROGRESS NOTE DATE OF SERVICE: 05/29/2022 SUBJECTIVE: This is a 67-year-old gentleman, who was admitted with chest pain, also had multiple other complaints. The patient also had possible cellulitis of the right hand also. The hand x-ray was reviewed which showed some osteoarthritis and chronic loss of soft tissue. The venous Doppler was negative and Cardiology following the patient closely. No chest pain, no palpitation. PHYSICAL EXAMINATION: VITAL SIGNS: Pulse is 78, blood pressure 120/87, respirations 18. CHEST: A few scattered rhonchi. CARDIOVASCULAR SYSTEM: S1, S2 normal. ABDOMEN: Soft. NERVOUS SYSTEM: Examination of the hand, some infection and cellulitis present. LABORATORY DATA: Troponin 0.046. Other labs are noted. D-dimer is 1.05. ASSESSMENT: 1. Chest pain, possible unstable angina, possible acute [id number]-elevation myocardial infarction with troponin 0.045. 2. Cellulitis of the right hand. 3. Continued ongoing nicotine dependence. 4. Atrial fibrillation. 5. History of asthma. 6. Multiple medical issues. RECOMMENDATIONS: I recommend to continue current management and symptomatic treatment. Otherwise, repeat labs. Closely monitor cultures. Add empiric antibiotics. Guarded prognosis. Further recommendations to follow. MMODL / IJN: [id number] /
[2022-05-30 06:05] LABS: Glucose,Whole Blood 184 mg/dL (70-110)
[2022-05-30] MEDS: INSULIN ASPART (NovoLOG) 100 UNIT/ML VIAL SQ SCH ×4 (06:21→21:01)
[2022-05-30 08:30] LABS: INR 1.1 (<1.2)
[2022-05-30 08:37] LABS: Albumin 3.3 g/dL (3.5-5.0); Calcium 8.1 mg/dL (8.4-10.2); Potassium 4.5 mmol/L (3.5-5.1); Total Bilirubin 0.4 mg/dL (0.2-1.3); Total Protein 6.9 g/dL (6.3-8.2)
[2022-05-30] MEDS: FUROSEMIDE 10 MG/ML 4 ML VIAL IV SCH (09:00)
[2022-05-30] MEDS: TOPIRAMATE 25 MG TAB PO SCH ×2 (09:01→21:01)
[2022-05-30] MEDS: PREGABALIN 100 MG CAP PO SCH ×2 (09:01→21:01)
[2022-05-30] MEDS: MELOXICAM 7.5 MG TAB PO SCH (09:01)
[2022-05-30] MEDS: POTASSIUM CHLORIDE ER 10 MEQ TAB.ER.PRT PO SCH (09:01)
[2022-05-30] MEDS: AMIODARONE 200 MG TAB PO SCH (09:01)
[2022-05-30] MEDS: PANTOPRAZOLE 40 MG TABLET PO SCH (09:01)
[2022-05-30] MEDS: METOPROLOL SUCCINATE (ER) 50 MG TAB.ER.24H PO SCH (09:01)
[2022-05-30] MEDS: metFORMIN 500 MG TAB PO SCH ×2 (09:01→21:02)
[2022-05-30] MEDS: BACITRACIN ZINC 500 UNIT/GM OINT 28.4 GM TUBE TOPICAL SCH ×4 (09:02→21:02)
[2022-05-30] MEDS: PIOGLITAZONE 30 MG TAB PO SCH (09:02)
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
[2022-05-30] MEDS: GLIMEPIRIDE 4 MG TAB PO SCH (09:03)
[2022-05-30] MEDS: DULoxetine HCL 20 MG CAPSULE.DR PO SCH ×2 (09:03→21:01)
[2022-05-30 09:08] LABS: Basophils # (A) 0.1 k/uL (0-0.2); Basophils % (A) 1 %; Eosinophils # (A) 0.1 k/uL (0-0.7); Eosinophils % (A) 2 %; HCT 38.8 % (39.0-53.0); HGB 12.4 gm/dL (13.0-17.5); Hypochromasia Moderate; Lymphocytes # (A) 1.7 k/uL (1.0-4.8); Lymphocytes % (A) 21 %; MCH 29.2 pg (25.0-35.0); MCHC 31.9 g/dL (31.0-37.0); MCV 91.7 fL (80.0-100.0); Mean Platelet Volume 9.6; Monocytes # (A) 0.6 k/uL (0-1.0); Monocytes % (A) 8 %; Neutrophils # (A) 5.3 k/uL (1.3-7.7); Neutrophils % (A) 67 %; Platelet Count 375 k/uL (150-450); RBC 4.23 m/uL (4.30-5.90); RDW 14.4 % (11.5-15.5)
[2022-05-30] MEDS: lisinopriL 10 MG TAB PO SCH (09:09)
[2022-05-30] MEDS: DOXYCYCLINE 100 MG CAP PO SCH ×2 (09:31→21:01)
[2022-05-30] MEDS: NITROGLYCERIN OINT 1 INCH/GM PACKET TOPICAL SCH (09:33)
[2022-05-30] MEDS ORDERED: HEPARIN SODIUM 1,000 UN/ML (10ML VL) IV PRN (10:32)
[2022-05-30 11:44] LABS: Glucose,Whole Blood 225 mg/dL (70-110)
--- NOTE | 2022-05-30 13:17 | P.PN ---
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 Peripheral artery disease s/p Bilateral stents in the iliac artery. Patient follows with Dr. Heaton in the office, last followed up in 2019. Consult to see the patient for chest pain. Patient came in initially complaining of shortness of breath and chest pain. Patient is on warfarin and is noncompliant with his medications. INR was 1. His troponins were mildly elevated at 0.046, 0.044, 0.045. Patient's BNP was 12,700 he is on IV Lasix 40 mg every 8hr. Patient's d-dimer was elevated CTA of the chest was negative for pulmonary embolism, did show pneumonia with right pleural effusion, emphysema, and pulmonary fibrosis. He underwent an ultrasound of his right lower leg to rule out DVT. He underwent an echocardiogram in November 2021 which showed a normal LV function with an ejection fraction 55-60%. Patient seen and examined at bedside, continues to have shortness of breath and chest pain. He continues to be on IV Lasix scr increased to 1.35. Vital signs are stable BP 102/63 HR 62. Continues to have chest discomfort. No acute ischemia on EKG. No specific aggravating or alleviating factors. Continues to be on IV heparin drip GENERAL: In no acute distress. NECK: Supple without JVD LUNGS: Breath sounds clear to auscultation bilaterally. Respiration equal and unlabored. No wheezes, rales or rhonchi. HEART: Regular rate and rhythm without murmurs, rubs or gallops. S1 and S2 heard. EXTREMITIES: Normal range of motion, no edema. No clubbing or cyanosis. Peripheral pulses intact. ASSESSMENT Elevated troponin, rule out ACS Chest pain Shortness of breath Hypertension History of paroxysmal atrial fibrillation on coumadin outpatient Non-compliant with medication Chronic nicotine dependence Dyslipidemia History of DVT History of left above knee amputation PLAN Continue IV heparin Hold coumadin secondary to possible cath Continue aspirin, statin, beta maria and lisinopril Obtain 2D echocardiogram NPO after midnight for possible cardiac catheterization Further recommendations based on clinical course Nurse Practitioner note has been reviewed, I agree with a documented findings and plan of care. Patient was seen and examined. Objective - Vital Signs Vital signs: Vital Signs Temp 97.9 F 05/30/22 03:44 Pulse 79 05/30/22 03:44 Resp 18 05/30/22 03:44 BP 120/67 05/30/22 03:44 Pulse Ox 93 L 05/30/22 08:28 FiO2 Intake & Output 05/29/22 05/30/22 05/30/22 18:59 06:59 18:59 Intake Total 690.049 274.167 120 Output Total 2950 500 Balance -2259.951 -225.833 120 Weight 90.5 kg Intake: IV 240 .9@20 240 Intake, IV Titration 130.049 274.167 Amount Heparin Sod,Pork in 0.45% 80.049 274.167 NaCl 25,000 unit In 0.45 % NaCl 1 250ml.bag @ 12 UNITS/KG/HR 9.798 mls/hr IV .Q24H [facility] Rx#: [id number] ceFAZolin 2 gm In Sodium 50 Chloride 0.9% 50 ml @ 100 mls/hr IVPB Q8HR [facility] Rx# :[id number] Oral 320 120 Output: Urine 2950 500 Other: Voiding Method Urinal Urinal # Voids 3 - Labs CBC & Chem 7: 05/30/22 07:05 05/30/22 07:05 Labs: Abnormal Lab Results - Last 24 Hours (Table) 05/29/22 05/29/22 05/29/22 Range/Units 11:10 11:59 16:46 RBC (4.30-5.90) m/uL Hgb (13.0-17.5) gm/dL Hct (39.0-53.0) % APTT 30.6 H (22.0-30.0) sec Sodium (137-145) mmol/L BUN (9-20) mg/dL Creatinine (0.66-1.25) mg/dL Glucose (74-99) mg/dL POC Glucose (mg/dL) 191 H 255 H (70-110) mg/dL Calcium (8.4-10.2) mg/dL AST (17-59) U/L Albumin (3.5-5.0) g/dL 05/29/22 05/30/22 05/30/22 Range/Units 18:31 03:30 06:04 RBC (4.30-5.90) m/uL Hgb (13.0-17.5) gm/dL Hct (39.0-53.0) % APTT 34.0 H 36.9 H (22.0-30.0) sec Sodium (137-145) mmol/L BUN (9-20) mg/dL Creatinine (0.66-1.25) mg/dL Glucose (74-99) mg/dL POC Glucose (mg/dL) 184 H (70-110) mg/dL Calcium (8.4-10.2) mg/dL AST (17-59) U/L Albumin (3.5-5.0) g/dL 05/30/22 05/30/22 Range/Units 07:05 07:05 RBC 4.23 L (4.30-5.90) m/uL Hgb 12.4 L (13.0-17.5) gm/dL Hct 38.8 L (39.0-53.0) % APTT (22.0-30.0) sec Sodium 132 L (137-145) mmol/L BUN 23 H (9-20) mg/dL Creatinine 1.35 H (0.66-1.25) mg/dL Glucose 140 H (74-99) mg/dL POC Glucose (mg/dL) (70-110) mg/dL Calcium 8.1 L (8.4-10.2) mg/dL AST 16 L (17-59) U/L Albumin 3.3 L (3.5-5.0) g/dL
[2022-05-30 16:26] LABS: Glucose,Whole Blood 118 mg/dL (70-110)
--- NOTE | 2022-05-30 16:56 | CA ---
Transthoracic Echo Report Name: Checo Quijano Age: 67 Gender: M : 1955 Exam Date: 05/30/2022 09:45 Exam Location: [facility] Ht (in): 72 Wt (lb): 199 Ordering Physician: Nannette Lakhani Attending/Referring Phys: Podopediatrician Becka Harper RDCS Procedure CPT: Indications: CP Cardiac Hx: Technical Quality: Good Contrast 1: N/A Total Dose (mL): Contrast 2: Total Dose (mL): MEASUREMENTS (Male / Female) Normal Values 2D ECHO LV Diastolic Diameter PLAX 5.3 cm 4.2 - 5.9 / 3.9 - 5.3 cm LV Systolic Diameter PLAX 4.4 cm IVS Diastolic Thickness 1.7 cm 0.6 - 1.0 / 0.6 - 0.9 cm LVPW Diastolic Thickness 1.8 cm 0.6 - 1.0 / 0.6 - 0.9 cm LV Relative Wall Thickness 0.7 RV Internal Dim ED PLAX 3.8 cm LA Systolic Diameter LX 4.9 cm 3.0 - 4.0 / 2.7 - 3.8 cm LA Volume 147.9 cm??? 18 - 58 / 22 - 52 cm??? M-MODE Aortic Root Diameter MM 4.3 cm LA Systolic Diameter MM 4.7 cm LA Ao Ratio MM 1.1 MV E Point Septal Separation 1.3 cm AV Cusp Separation MM 2.3 cm DOPPLER MV Area PHT 4.1 cm??? Mitral E Point Velocity 47.9 cm/s Mitral A Point Velocity 49.3 cm/s Mitral E to A Ratio 1.0 MV Deceleration Time 184.7 ms MV E' Velocity 2.4 cm/s Mitral E to MV E' Ratio 20.4 TR Peak Velocity 271.9 cm/s TR Peak Gradient 29.6 mmHg Right Ventricular Systolic Press 34.6 mmHg FINDINGS Left Ventricle Left ventricular ejection fraction is estimated at 30%. Mildly increased left ventricular wall thickness. Right Ventricle Normal right ventricular size and function. Right ventricular systolic pressure within normal limits. Right Atrium Normal right atrial size. Left Atrium Moderately increased left atrial diameter. Severely increased left atrial volume. Moderately increased left atrial area. Mitral Valve Structurally normal mitral valve.mitral valve thickened. Mild mitral regurgitation. Aortic Valve Trileaflet aortic valve. Aortic valve sclerosis. Tricuspid Valve Structurally normal tricuspid valve. Mild tricuspid regurgitation. Pulmonic Valve Structurally normal pulmonic valve. Pericardium Normal pericardium. Aorta Normal size aortic root and proximal ascending aorta. CONCLUSIONS Mild increased left ventricular wall thickness Left ventricular ejection fraction 30% with global hypokinesis RVSP 34 Moderately dilated left atrium Mild mitral regurgitation Mild tricuspid regurgitation No pericardial effusion Previewed by: Dr. Diogo Cantrell DO (Electronically Signed) Final Date: 30 May 2022 16:55
[2022-05-30] MEDS ORDERED: WARFARIN 5 MG TAB PO ONE (18:00)
[2022-05-30] MEDS: HYDROcodone/APAP 5-325MG 1 EACH TAB PO PRN (18:01)
[2022-05-30 19:51] LABS: Glucose,Whole Blood 204 mg/dL (70-110)
[2022-05-30] MEDS: NORTRIPTYLINE 25 MG CAP PO SCH (21:01)
[2022-05-30] MEDS: ATORVASTATIN 80 MG TAB PO SCH (21:01)
[2022-05-30] MEDS: LORATADINE 10 MG TAB PO SCH (21:02)
--- NOTE | 2022-05-30 22:26 | P.PN ---
Subjective Progress Note Date: 05/30/22 Principal diagnosis: Bilateral hand and finger wound Patient is a 67-year-old male with multiple comorbidities including diabetic wound infection requiring [id number] amputation, presenting to the hospital with chest pain in this patient who did have traumatic wound to the left ring and right middle finger On today's evaluation that is 05/30/2022, the patient denies having any fever or any chills patient is currently breathing comfortably no further chest pain or cough. The patient denies having any pain to bilateral hand finger wound area and there is no drainage Objective - Vital Signs Vital signs: Vital Signs Temp 97.4 F L 05/30/22 08:00 Pulse 62 05/30/22 08:00 Resp 18 05/30/22 08:00 BP 102/63 05/30/22 08:00 Pulse Ox 93 L 05/30/22 08:28 FiO2 Intake & Output 05/29/22 05/30/22 05/30/22 18:59 06:59 18:59 Intake Total 690.049 274.167 120 Output Total 2950 500 400 Balance -2259.951 -225.833 -280 Weight 90.5 kg 90.5 kg Intake: IV 240 .9@20 240 Intake, IV Titration 130.049 274.167 Amount Heparin Sod,Pork in 0.45% 80.049 274.167 NaCl 25,000 unit In 0.45 % NaCl 1 250ml.bag @ 12 UNITS/KG/HR 9.798 mls/hr IV .Q24H [facility] Rx#: [id number] ceFAZolin 2 gm In Sodium 50 Chloride 0.9% 50 ml @ 100 mls/hr IVPB Q8HR [facility] Rx# :[id number] Oral 320 120 Output: Urine 2950 500 400 Other: Voiding Method Urinal Urinal Urinal # Voids 3 - Exam GENERAL DESCRIPTION: An elderly male lying in bed in no distress RESPIRATORY SYSTEM: Unlabored breathing , decreased breath sounds at bases HEART: S1 S2 regular rate and rhythm , ABDOMEN: Soft , no tenderness EXTREMITIES: Right index finger wound with no slough tissue or surrounding redness - Labs CBC & Chem 7: 06/02/22 10:30 06/02/22 17:43 Labs: Abnormal Lab Results - Last 24 Hours (Table) 11/20/22 11/20/22 11/20/22 Range/Units 11:10 11:59 16:46 RBC (4.30-5.90) m/uL Hgb (13.0-17.5) gm/dL Hct (39.0-53.0) % APTT 30.6 H (22.0-30.0) sec Sodium (137-145) mmol/L BUN (9-20) mg/dL Creatinine (0.66-1.25) mg/dL Glucose (74-99) mg/dL POC Glucose (mg/dL) 191 H 255 H (70-110) mg/dL Calcium (8.4-10.2) mg/dL AST (17-59) U/L Albumin (3.5-5.0) g/dL 05/29/22 05/30/22 05/30/22 Range/Units 18:31 03:30 06:04 RBC (4.30-5.90) m/uL Hgb (13.0-17.5) gm/dL Hct (39.0-53.0) % APTT 34.0 H 36.9 H (22.0-30.0) sec Sodium (137-145) mmol/L BUN (9-20) mg/dL Creatinine (0.66-1.25) mg/dL Glucose (74-99) mg/dL POC Glucose (mg/dL) 184 H (70-110) mg/dL Calcium (8.4-10.2) mg/dL AST (17-59) U/L Albumin (3.5-5.0) g/dL 05/30/22 05/30/22 Range/Units 07:05 07:05 RBC 4.23 L (4.30-5.90) m/uL Hgb 12.4 L (13.0-17.5) gm/dL Hct 38.8 L (39.0-53.0) % APTT (22.0-30.0) sec Sodium 132 L (137-145) mmol/L BUN 23 H (9-20) mg/dL Creatinine 1.35 H (0.66-1.25) mg/dL Glucose 140 H (74-99) mg/dL POC Glucose (mg/dL) (70-110) mg/dL Calcium 8.1 L (8.4-10.2) mg/dL AST 16 L (17-59) U/L Albumin 3.3 L (3.5-5.0) g/dL Assessment and Plan (1) Finger wound, simple, open Current Visit: Yes Status: Acute Code(s): S61.209A - UNSP OPEN WOUND OF UNSP FINGER W/O DAMAGE TO NAIL, INIT SNOMED Code(s): 561476460 (2) Abnormal CT scan, chest Current Visit: Yes Status: Acute Code(s): R93.89 - ABNORMAL FINDINGS ON DX IMAGING OF OTH BODY STRUCTURES SNOMED Code(s): 06612065243213149 Plan: 1patient did have a wound to the right ring and left middle finger traumatic. Both wounds superficial and did not have significant surrounding swelling redness concerning for cellulitis and the x-ray did not show any bony changes at that location patient do have a history of MRSA infection 2patient presenting with increasing shortness of breath and chest pain did have CT angiogram of the chest which was abnormal concerning for bilateral lower lobe consolidation possibly fluid related clinical not behaving as pneumonia. 3patient did have normal procalcitonin level that will make him on a less likely. 4local wound care to the right ring finger as well as left middle finger wound with a dry Aquacel silver dressing change every 48 hour. 5patient to continue with doxycycline 100 mg twice a day and monitor clinical course closely Time with Patient: Less than 30
--- NOTE | 2022-05-31 04:23 | PN ---
PROGRESS NOTE DATE OF SERVICE: 05/30/2022 SUBJECTIVE: This 67-year-old gentleman admitted with chest pain, possible unstable angina, vascular cellulitis, he is being closely monitored at this time. The patient also had a history of CHF also. The patient is being closely monitored at this time. There is no history of any fever, rigors, or chills. PHYSICAL EXAMINATION: VITAL SIGNS: Pulse 79, blood pressure 120/26, respirations 18. HEENT: Conjunctivae normal. NECK: No JVD. CARDIOVASCULAR: S1, S2 muffled. RESPIRATIONS: A few scattered rhonchi. ABDOMEN: Soft. NERVOUS SYSTEM: No focal deficits. Right hand infection present. LABS: Creatinine 1.25. ASSESSMENT: 1. Chest pain, possible unstable angina, possible acute ied-FO-gshqlef-elevation myocardial infarction with troponin 0.045. 2. Cellulitis of right hand. 3. Congestive heart failure acute exacerbation with acute on chronic diastolic dysfunction. 4. Continued ongoing nicotine dependence. 5. Atrial fibrillation. 6. History of asthma. 7. Multiple medical issues. RECOMMENDATIONS: Recommended to continue current medical management and symptomatic treatment. Otherwise we will continue to monitor, closely follow with Cardiology. See orders for details. Repeat labs in the morning. Further recommendations to follow. MMODL / IJN: [id number] /
[2022-05-31] MEDS: HYDROcodone/APAP 5-325MG 1 EACH TAB PO PRN (04:46)
[2022-05-31 06:53] LABS: Glucose,Whole Blood 100 mg/dL (70-110)
[2022-05-31] MEDS: INSULIN ASPART (NovoLOG) 100 UNIT/ML VIAL SQ SCH ×4 (06:55→20:26)
[2022-05-31] MEDS: HEPARIN SOD,PORK IN 0.45% NACL 25,000 UNIT in 0.45% NACL 1 250ML.BAG IV SCH ×2 (06:57→20:20)
[2022-05-31] MEDS ORDERED: SODIUM CHLORIDE 0.9% 1,000 ML IV STA (07:42)
[2022-05-31] MEDS ORDERED: ALPRAZolam 0.5 MG TAB PO PRN (07:44)
[2022-05-31] MEDS ORDERED: NITROGLYCERIN SL TABS 0.4 MG TAB SUBLINGUAL PRN (07:44)
[2022-05-31] MEDS: metFORMIN 500 MG TAB PO SCH (07:57)
[2022-05-31] MEDS: PREGABALIN 100 MG CAP PO SCH (08:04)
[2022-05-31] MEDS: MELOXICAM 7.5 MG TAB PO SCH (08:04)
[2022-05-31] MEDS: AMIODARONE 200 MG TAB PO SCH (08:04)
[2022-05-31] MEDS: BACITRACIN ZINC 500 UNIT/GM OINT 28.4 GM TUBE TOPICAL SCH ×4 (08:04→19:45)
[2022-05-31] MEDS: ASPIRIN 81 MG PO SCH (08:04)
[2022-05-31] MEDS: DOXYCYCLINE 100 MG CAP PO SCH ×2 (08:04→20:25)
[2022-05-31] MEDS: DULoxetine HCL 20 MG CAPSULE.DR PO SCH (08:04)
[2022-05-31] MEDS: METOPROLOL SUCCINATE (ER) 50 MG TAB.ER.24H PO SCH ×2 (08:04→11:09)
[2022-05-31] MEDS: POTASSIUM CHLORIDE ER 10 MEQ TAB.ER.PRT PO SCH (08:05)
[2022-05-31] MEDS: PANTOPRAZOLE 40 MG TABLET PO SCH (08:05)
[2022-05-31] MEDS: TOPIRAMATE 25 MG TAB PO SCH ×2 (08:05→20:25)
[2022-05-31 08:09] LABS: Basophils % (A) 0 %; Eosinophils # (A) 0.2 k/uL (0-0.7); Eosinophils % (A) 2 %; HGB 12.1 gm/dL (13.0-17.5); Hypochromasia Marked; Lymphocytes # (A) 1.7 k/uL (1.0-4.8); Lymphocytes % (A) 26 %; MCH 28.9 pg (25.0-35.0); MCHC 31.1 g/dL (31.0-37.0); Mean Platelet Volume 8.3; Monocytes # (A) 0.4 k/uL (0-1.0); Monocytes % (A) 6 %; Neutrophils # (A) 4.2 k/uL (1.3-7.7); Neutrophils % (A) 63 %; Platelet Count 408 k/uL (150-450); RBC 4.19 m/uL (4.30-5.90); RDW 14.5 % (11.5-15.5); WBC 6.7 k/uL (3.8-10.6)
[2022-05-31 08:15] LABS: INR 1.1 (<1.2); Prothrombin Time 12.2 sec (9.0-12.0)
[2022-05-31 08:37] LABS: Potassium 5.2 mmol/L (3.5-5.1)
[2022-05-31] MEDS ORDERED: VERAPAMIL 2.5 MG/ML 2 ML AMP ONE (08:42)
[2022-05-31] MEDS ORDERED: FUROSEMIDE 40 MG TAB PO SCH (09:00)
--- NOTE | 2022-05-31 09:03 | XR ---
EXAMINATION TYPE: XR chest 1V portable DATE OF EXAM: 05/31/2022 COMPARISON: 05/28/2022 HISTORY: Shortness of breath TECHNIQUE: Single frontal view of the chest is obtained. FINDINGS: The heart is prominent in size there is vague density along the periphery of the right janine g. Findings suggest COPD with hyperinflation. No pleural effusion or pneumothorax IMPRESSION: 1. COPD. There is peripheral density along the lower lobe on the right could represent an early infil trate.
--- NOTE | 2022-05-31 09:32 | P.PN ---
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 Peripheral artery disease s/p Bilateral stents in the iliac artery. Patient follows with Dr. Heaton in the office, last followed up in 2019. Consult to see the patient for chest pain. Patient came in initially complaining of shortness of breath and chest pain. Patient is on warfarin and is noncompliant with his medications. INR was 1. His troponins were mildly elevated at 0.046, 0.044, 0.045. Patient's BNP was 12,700 he is on IV Lasix 40 mg every 8hr. Patient's d-dimer was elevated CTA of the chest was negative for pulmonary embolism, did show pneumonia with right pleural effusion, emphysema, and pulmonary fibrosis. He underwent an ultrasound of his right lower leg to rule out DVT. He underwent an echocardiogram in November 2021 which showed a normal LV function with an ejection fraction 55-60%. 05/31/2022 Patient seen and examined at bedside, Denies shortness of breath or chest pain this morning. His vital signs are stable. Continues to be on IV heparin drip. IV Lasi stopped yesterday. Echo revealed EF reduced to 30%, global hypokinesis. Unfortunately creatinine increased to 1.5 GENERAL: In no acute distress. NECK: Supple without JVD LUNGS: Breath sounds clear to auscultation bilaterally. Respiration equal and unlabored. No wheezes, rales or rhonchi. HEART: Regular rate and rhythm without murmurs, rubs or gallops. S1 and S2 heard. EXTREMITIES: Normal range of motion, no edema. No clubbing or cyanosis. Peripheral pulses intact. ASSESSMENT Elevated troponin, rule out ACS Cardiomyopathy EF 30%, ischemic vs non-ischemic Acute kidney injury likely related to IV diuresis Chest pain Shortness of breath Hypertension History of paroxysmal atrial fibrillation on coumadin outpatient Non-compliant with medication Chronic nicotine dependence Dyslipidemia History of DVT History of left above knee amputation PLAN Continue IV heparin Continue low rate IV fluids Hold coumadin for Cath Hold Lasix Continue aspirin, statin, beta maria and lisinopril Monitor renal function NPO after midnight for cardiac catheterization pending renal function I have discussed the risks, benefits and alternative therapies for the above- mentioned procedure and for both sedation/analgesia as well as necessary blood product administration, if indicated, as they pertain to this patient. The patient has indicated understanding and acceptance of the risks and procedures discussed. Questions have been answered appropriately and he is agreeable to move forward with the above-stated procedure. Further recommendations based on clinical course Nurse Practitioner note has been reviewed, I agree with a documented findings and plan of care. Patient was seen and examined. Objective - Vital Signs Vital signs: Vital Signs Temp 97.5 F L 05/31/22 04:00 Pulse 58 L 05/31/22 04:00 Resp 16 05/31/22 04:00 BP 107/71 05/31/22 04:00 Pulse Ox 97 05/31/22 04:00 FiO2 Intake & Output 05/30/22 05/31/22 05/31/22 18:59 06:59 18:59 Intake Total 212.819 430 Output Total 400 425 Balance -187.181 5 Weight 90.5 kg 89.8 kg Intake: IV 180 .9@20 180 Intake, IV Titration 92.819 250 Amount Heparin Sod,Pork in 0.45% 92.819 250 NaCl 25,000 unit In 0.45 % NaCl 1 250ml.bag @ 11 UNITS/KG/HR 9.955 mls/hr IV .Q24H [facility] Rx#: [id number] Oral 120 Output: Urine 400 425 Other: Voiding Method Urinal Urinal - Labs CBC & Chem 7: 05/31/22 07:21 05/31/22 07:21 Labs: Abnormal Lab Results - Last 24 Hours (Table) 05/30/22 05/30/22 05/30/22 Range/Units 09:57 09:57 11:43 RBC (4.30-5.90) m/uL Hgb (13.0-17.5) gm/dL PT (9.0-12.0) sec APTT 44.4 H (22.0-30.0) sec Sodium (137-145) mmol/L Potassium (3.5-5.1) mmol/L BUN (9-20) mg/dL Creatinine (0.66-1.25) mg/dL Glucose (74-99) mg/dL POC Glucose (mg/dL) 225 H (70-110) mg/dL Calcium (8.4-10.2) mg/dL C-Reactive Protein 2.5 H (<1.0) mg/dL 05/30/22 05/30/22 05/31/22 Range/Units 16:24 19:49 07:21 RBC (4.30-5.90) m/uL Hgb (13.0-17.5) gm/dL PT (9.0-12.0) sec APTT (22.0-30.0) sec Sodium 133 L (137-145) mmol/L Potassium 5.2 H (3.5-5.1) mmol/L BUN 32 H (9-20) mg/dL Creatinine 1.59 H (0.66-1.25) mg/dL Glucose 100 H (74-99) mg/dL POC Glucose (mg/dL) 118 H 204 H (70-110) mg/dL Calcium 8.0 L (8.4-10.2) mg/dL C-Reactive Protein (<1.0) mg/dL 05/31/22 05/31/22 Range/Units 07:21 07:21 RBC 4.19 L (4.30-5.90) m/uL Hgb 12.1 L (13.0-17.5) gm/dL PT 12.2 H (9.0-12.0) sec APTT (22.0-30.0) sec Sodium (137-145) mmol/L Potassium (3.5-5.1) mmol/L BUN (9-20) mg/dL Creatinine (0.66-1.25) mg/dL Glucose (74-99) mg/dL POC Glucose (mg/dL) (70-110) mg/dL Calcium (8.4-10.2) mg/dL C-Reactive Protein (<1.0) mg/dL
[2022-05-31 11:44] LABS: Glucose,Whole Blood 117 mg/dL (70-110)
[2022-05-31] MEDS: PIOGLITAZONE 30 MG TAB PO SCH (11:54)
[2022-05-31] MEDS: GLIMEPIRIDE 4 MG TAB PO SCH (11:54)
[2022-05-31] MEDS: lisinopriL 5 MG TAB PO SCH (12:03)
[2022-05-31] MEDS ORDERED: IPRATROPIUM-ALBUTEROL 3 ML NEB INHALATION PRN (12:30)
[2022-05-31] MEDS: IPRATROPIUM-ALBUTEROL 3 ML NEB INHALATION SCH ×2 (12:58→21:00)
--- NOTE | 2022-05-31 14:16 | P.PN ---
Subjective Progress Note Date: 05/31/22 This is a 67-year-old male who was recently admitted with chest pain, unstable angina with vascular cellulitis and being closely monitored with cardiology following closely. Plan is for cardiac catheterization in the a.m. Initially patient was scheduled for cardiac catheterization today although kidney functions slightly worsened and creatinine today is 1.59. Patient also more lethargic today and will adjust medications. Patient was placed back on heparin drip and will await cardiology report. Most recent EF is 30%. Patient is afebrile denies shortness of breath or palpitations. Patient denies nausea or vomiting and is tolerating diet. Patient was placed on gentle IV hydration and will follow-up with repeat labs in a.m. Review of systems: Constitutional: reports of fatigue, no fever, or chills Cardiovascular: No reports of chest pain or palpitations Respiratory: No reports of shortness of breath or cough GI: no reports of nausea, no reports of of vomiting, no reports of diarrhea : No reports of dysuria or retention Neurovascular: reports of generalized weakness All medications have been reviewed Active Medications Albuterol/Ipratropium (Ipratropium-Albuterol 3 Ml Neb) 3 ml INHALATION RT-TID [facility] Last Admin: 05/31/22 12:58 Dose: 3 ml Albuterol/Ipratropium (Ipratropium-Albuterol 3 Ml Neb) 3 ml INHALATION RT-TID PRN PRN Reason: Shortness Of Breath Or Wheezing Alprazolam (Alprazolam 0.25 Mg Tab) 0.25 mg PO Q6HR PRN PRN Reason: Mild Anxiety Amiodarone HCl (Amiodarone 200 Mg Tab) 200 mg PO DAILY [facility] Last Admin: 05/31/22 08:04 Dose: 200 mg Aspirin (Aspirin 81 Mg) 81 mg PO DAILY [facility] Last Admin: 05/31/22 08:04 Dose: 81 mg Atorvastatin Calcium (Atorvastatin 80 Mg Tab) 80 mg PO HS [facility] Last Admin: 05/30/22 21:01 Dose: 80 mg Bacitracin (Bacitracin Zinc 500 Unit/Gm Oint 28.4 Gm Tube) 1 applic TOPICAL QID [facility]; Protocol Last Admin: 05/31/22 08:04 Dose: 1 applic Doxycycline Monohydrate (Doxycycline 100 Mg Cap) 100 mg PO BID [facility]; Protocol Last Admin: 05/31/22 08:04 Dose: 100 mg Glimepiride (Glimepiride 4 Mg Tab) 4 mg PO QAM [facility] Last Admin: 05/31/22 11:54 Dose: Not Given Heparin Sodium (Porcine) (Heparin Sodium 1,000 Un/Ml (10ml Vl)) 0 unit IV PER PROTOCOL PRN; Protocol PRN Reason: Low PTT Heparin Sodium/Sodium Chloride (25,000 unit/ Sodium Chloride) 250 mls @ 9.955 mls/hr IV .Q24H [facility]; Protocol Last Admin: 05/31/22 06:57 Dose: 23.45 units/kg/hr, 21.22 mls/hr Sodium Chloride (Saline 0.9%) 1,000 mls @ 75 mls/hr IV .[id number] [facility] Stop: 05/31/22 21:01 Last Admin: 05/31/22 08:03 Dose: 75 mls/hr Heparin Sodium (Porcine) 10, (000 unit/ Sodium Chloride) 1,001 mls @ 999 mls/hr IRRIGATION ONCE PRN PRN Reason: INTRA-OP Stop: 06/01/22 23:00 Heparin Sodium (Porcine) 2,500 (unit/ Sodium Chloride) 250.5 mls @ 250 mls/hr IRRIGATION ONCE PRN PRN Reason: INTRA-OP Stop: 06/01/22 23:00 Insulin Aspart (Insulin Aspart (Novolog) 100 Unit/Ml Vial) 0 unit SQ [facility]; Protocol Last Admin: 05/31/22 11:54 Dose: Not Given Lisinopril (Lisinopril 5 Mg Tab) 5 mg PO DAILY [facility] Last Admin: 05/31/22 12:03 Dose: Not Given Loratadine (Loratadine 10 Mg Tab) 10 mg PO HS [facility] Last Admin: 05/30/22 21:02 Dose: 10 mg Meloxicam (Meloxicam 7.5 Mg Tab) 7.5 mg PO DAILY [facility] Last Admin: 05/31/22 08:04 Dose: 7.5 mg Metoprolol Succinate (Metoprolol Succinate (Er) 50 Mg Tab.Er.24h) 50 mg PO D AILY [facility] Last Admin: 05/31/22 11:09 Dose: Not Given Nitroglycerin (Nitroglycerin Sl Tabs 0.4 Mg Tab) 0.4 mg SUBLINGUAL Q5M PRN PRN Reason: Chest Pain Non-Formulary Medication (Acetaminophen/Diphenhydramine [Tylenol Pm 500-25mg]) 1 tab PO QID PRN PRN Reason: Pain Pantoprazole Sodium (Pantoprazole 40 Mg Tablet) 40 mg PO DAILY [facility] Last Admin: 05/31/22 08:05 Dose: 40 mg Pioglitazone HCl (Pioglitazone 30 Mg Tab) 30 mg PO DAILY [facility] Last Admin: 05/31/22 11:54 Dose: Not Given Pregabalin (Pregabalin 50 Mg Cap) 50 mg PO BID [facility] Topiramate (Topiramate 25 Mg Tab) 25 mg PO BID [facility] Last Admin: 05/31/22 08:05 Dose: 25 mg PHYSICAL EXAMINATION: GENERAL: The patient is alert and oriented x3, lethargic but arousable. Well developed, well nourished. HEENT: Pupils are round and equally reacting to light. EOMI. no scleral icterus. No conjunctival pallor. Normocephalic, atraumatic. No pharyngeal erythema. No thyromegaly. CARDIOVASCULAR: S1 and S2 muffled PULMONARY: diminished breath sounds bilaterally with no wheezing or rhonchi noted. ABDOMEN: soft. Nontender on exam. obese. non-distended, normoactive bowel sounds. No palpable organomegaly. MUSCULOSKELETAL: No joint swelling or deformity. EXTREMITIES: No cyanosis, clubbing, or pedal edema. NEUROLOGICAL: Gross neurological examination did not reveal any focal deficits. Diffuse weakness SKIN: No rashes. Assessment: Chest pain, possible answered unstable angina, possible acute non-ST segment elevation myocardial infarction with troponin of 0.045 Cellulitis of the right hand Congestive heart failure acute exacerbation with acute on chronic diastolic dysfunction Continued ongoing nicotine dependence Atrial fibrillation History of asthma History of CVA/TIA Diabetes mellitus, type II, uncontrolled with hyper and hypoglycemia Gastroesophageal reflux disease Hyperlipidemia Hypertension History of PEs and DVTs GI prophylaxis DVT prophylaxis Full code Plan: Recommend to continue with current medications and management with multiple medical consultation following. Patient is maintained on oral doxycycline for cellulitis of the hand with anxiety following. Patient was initially scheduled for cardiac catheterization with cardiology today although kidney functions found to be slightly elevated and diuretics being held and being started on gentle IV hydration and plan is for cardiac catheterization in 24 hours. Patient is to be nothing by mouth at midnight. Patient per nursing staff is more lethargic and will adjust medications recommend limiting the use of [employer] and narcotic agents. Recommend repeat labs in a.m. and will continue telemetry monitoring. Patient was placed back on IV heparin until catheterization. Encouraged oral intake and increased activity as tolerated. Due to multiple complex medical issues, prognosis is guarded. The impression and plan of care has been dictated by Rashida Peterson, nurse practitioner as directed. Dr. Antonio MD I have performed a history and examination and MDM of this patient, discussed the same with the dictator, and agree with the dictator's assessment and plan as written ,documented as a scribe. Based on total visit time, I have performed more than 50% of the visit. Any additional findings or plans will be noted. Objective - Vital Signs Vital signs: Vital Signs Temp 98.0 F 05/31/22 12:00 Pulse 57 L 05/31/22 12:00 Resp 16 05/31/22 12:00 BP 90/50 05/31/22 12:00 Pulse Ox 93 L 05/31/22 12:00 FiO2 Intake & Output 05/30/22 05/31/22 05/31/22 18:59 06:59 18:59 Intake Total 212.819 430 Output Total 400 425 Balance -187.181 5 Weight 90.5 kg 89.8 kg Intake: IV 180 .9@20 180 Intake, IV Titration 92.819 250 Amount Heparin Sod,Pork in 0.45% 92.819 250 NaCl 25,000 unit In 0.45 % NaCl 1 250ml.bag @ 11 UNITS/KG/HR 9.955 mls/hr IV .Q24H [facility] Rx#: [id number] Oral 120 Output: Urine 400 425 Other: Voiding Method Urinal Urinal Urinal - Labs CBC & Chem 7: 05/31/22 07:21 05/31/22 07:21 Labs: Abnormal Lab Results - Last 24 Hours (Table) 05/30/22 05/30/22 05/31/22 Range/Units 16:24 19:49 07:21 RBC (4.30-5.90) m/uL Hgb (13.0-17.5) gm/dL PT (9.0-12.0) sec Sodium 133 L (137-145) mmol/L Potassium 5.2 H (3.5-5.1) mmol/L BUN 32 H (9-20) mg/dL Creatinine 1.59 H (0.66-1.25) mg/dL Glucose 100 H (74-99) mg/dL POC Glucose (mg/dL) 118 H 204 H (70-110) mg/dL Calcium 8.0 L (8.4-10.2) mg/dL 05/31/22 05/31/22 05/31/22 Range/Units 07:21 07:21 11:42 RBC 4.19 L (4.30-5.90) m/uL Hgb 12.1 L (13.0-17.5) gm/dL PT 12.2 H (9.0-12.0) sec Sodium (137-145) mmol/L Potassium (3.5-5.1) mmol/L BUN (9-20) mg/dL Creatinine (0.66-1.25) mg/dL Glucose (74-99) mg/dL POC Glucose (mg/dL) 117 H (70-110) mg/dL Calcium (8.4-10.2) mg/dL
[2022-05-31] MEDS: lisinopriL 10 MG TAB PO SCH (15:08)
[2022-05-31 16:23] LABS: Glucose,Whole Blood 155 mg/dL (70-110)
[2022-05-31] MEDS: TAMSULOSIN 0.4 MG CAP.ER.24H PO SCH (16:59)
[2022-05-31 17:06] LABS: Appearance,Urine Clear (Clear); Bilirubin,Urine Negative (Negative); Blood,Urine Negative (Negative); Color,Urine Yellow; Glucose,Urine (UA) Negative (Negative); Ketones,Urine Negative (Negative); Leukocyte Esterase,Urine Negative (Negative); Nitrite,Urine Negative (Negative); Protein,Urine Negative (Negative); Specific Gravity,Urine 1.015 (1.001-1.035)
[2022-05-31 19:36] LABS: Glucose,Whole Blood 172 mg/dL (70-110)
[2022-05-31] MEDS: LORATADINE 10 MG TAB PO SCH (20:24)
[2022-05-31] MEDS: PREGABALIN 50 MG CAP PO SCH (20:25)
[2022-05-31] MEDS: ATORVASTATIN 80 MG TAB PO SCH (20:25)
[2022-06-01 03:22] LABS: Partial Thromboplastin Time 65.7 sec (22.0-30.0); Prothrombin Time 11.3 sec (9.0-12.0)
[2022-06-01 03:37] LABS: Calcium 7.9 mg/dL (8.4-10.2); Potassium 4.9 mmol/L (3.5-5.1)
[2022-06-01 06:13] LABS: Glucose,Whole Blood 139 mg/dL (70-110)
[2022-06-01] MEDS: INSULIN ASPART (NovoLOG) 100 UNIT/ML VIAL SQ SCH ×4 (06:20→21:11)
[2022-06-01] MEDS: PANTOPRAZOLE 40 MG TABLET PO SCH (06:45)
[2022-06-01] MEDS: lisinopriL 5 MG TAB PO SCH (06:45)
[2022-06-01] MEDS: DOXYCYCLINE 100 MG CAP PO SCH ×2 (06:45→21:39)
[2022-06-01] MEDS: ASPIRIN 81 MG PO SCH (06:45)
[2022-06-01] MEDS: PIOGLITAZONE 30 MG TAB PO SCH (06:45)
[2022-06-01] MEDS: TOPIRAMATE 25 MG TAB PO SCH ×2 (06:45→21:18)
[2022-06-01] MEDS: GLIMEPIRIDE 4 MG TAB PO SCH (06:45)
[2022-06-01] MEDS: MELOXICAM 7.5 MG TAB PO SCH (06:45)
[2022-06-01] MEDS: AMIODARONE 200 MG TAB PO SCH (06:45)
[2022-06-01] MEDS: METOPROLOL SUCCINATE (ER) 50 MG TAB.ER.24H PO SCH (06:45)
[2022-06-01] MEDS: BACITRACIN ZINC 500 UNIT/GM OINT 28.4 GM TUBE TOPICAL SCH ×4 (06:46→21:18)
[2022-06-01] MEDS: PREGABALIN 50 MG CAP PO SCH ×2 (06:46→21:17)
[2022-06-01] MEDS ORDERED: HEPARIN SODIUM,PORCINE 10,000 UNIT in SODIUM CHLORIDE 0.9% 1,000 ML IRRIGATION PRN (07:00)
[2022-06-01] MEDS ORDERED: HEPARIN SODIUM,PORCINE 2,500 UNIT in SODIUM CHLORIDE 0.9% 250 ML IRRIGATION PRN (07:00)
[2022-06-01] MEDS: IPRATROPIUM-ALBUTEROL 3 ML NEB INHALATION SCH ×3 (08:55→22:22)
--- NOTE | 2022-06-01 11:04 | P.PN ---
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 Peripheral artery disease s/p Bilateral stents in the iliac artery. Patient follows with Dr. Heaton in the office, last followed up in 2019. Consult to see the patient for chest pain. Patient came in initially complaining of shortness of breath and chest pain. Patient is on warfarin and is noncompliant with his medications. INR was 1. His troponins were mildly elevated at 0.046, 0.044, 0.045. Patient's BNP was 12,700 he is on IV Lasix 40 mg every 8hr. Patient's d-dimer was elevated CTA of the chest was negative for pulmonary embolism, did show pneumonia with right pleural effusion, emphysema, and pulmonary fibrosis. He underwent an ultrasound of his right lower leg to rule out DVT. He underwent an echocardiogram in November 2021 which showed a normal LV function with an ejection fraction 55-60%. 06/01/2022 Patient seen and examined at bedside, Denies shortness of breath or chest pain this morning. His vital signs are stable, BP on the lower end 103/62, HR 62. Continues to be on IV heparin drip. Lasix has been held secondary to ANDERSON. Echo revealed EF reduced to 30%, global hypokinesis. Serum creatinine 1.43, yesterday 1.59 GENERAL: In no acute distress. NECK: Supple without JVD LUNGS: Breath sounds clear to auscultation bilaterally. Respiration equal and unlabored. No wheezes, rales or rhonchi. HEART: Regular rate and rhythm without murmurs, rubs or gallops. S1 and S2 heard. EXTREMITIES: Normal range of motion, no edema. No clubbing or cyanosis. Peripheral pulses intact. ASSESSMENT Elevated troponin, rule out ACS Cardiomyopathy EF 30%, ischemic vs non-ischemic Acute kidney injury likely related to IV diuresis Chest pain Shortness of breath Hypertension History of paroxysmal atrial fibrillation on coumadin outpatient Non-compliant with medication Chronic nicotine dependence Dyslipidemia History of DVT History of left above knee amputation PLAN Patient's renal function continues to be abnormal and recommend holding on cardiac catheterization today Holding PO coumadin anticoagulation and Continue IV heparin Continue low rate IV fluids Hold Lasix Continue aspirin, statin, beta maria and lisinopril Monitor renal function NPO after midnight for Monday for possible cardiac catheterization. Further recommendations based on clinical course Nurse Practitioner note has been reviewed, I agree with a documented findings and plan of care. Patient was seen and examined. Objective - Vital Signs Vital signs: Vital Signs Temp 97.7 F 06/01/22 08:36 Pulse 62 06/01/22 08:37 Resp 18 06/01/22 08:37 BP 103/62 06/01/22 08:36 Pulse Ox 96 06/01/22 08:36 FiO2 Intake & Output 05/31/22 06/01/22 06/01/22 18:59 06:59 18:59 Intake Total 490.000 Output Total 1000 450 250 Balance -510.000 -450 -250 Weight 94.5 kg Intake: Intake, IV Titration 250.000 Amount Heparin Sod,Pork in 0.45% 250.000 NaCl 25,000 unit In 0.45 % NaCl 1 250ml.bag @ 11 UNITS/KG/HR 9.955 mls/hr IV .Q24H [facility] Rx#: [id number] Oral 240 Output: Urine 1000 450 250 Straight 500 Other: Voiding Method Urinal Urinal Urinal - Labs CBC & Chem 7: 05/31/22 07:21 06/01/22 02:48 Labs: Abnormal Lab Results - Last 24 Hours (Table) 05/31/22 05/31/22 05/31/22 Range/Units 11:42 13:48 16:21 APTT 58.2 H (22.0-30.0) sec Sodium (137-145) mmol/L BUN (9-20) mg/dL Creatinine (0.66-1.25) mg/dL Glucose (74-99) mg/dL POC Glucose (mg/dL) 117 H 155 H (70-110) mg/dL Calcium (8.4-10.2) mg/dL 05/31/22 06/01/22 06/01/22 Range/Units 19:34 02:48 02:48 APTT 65.7 H (22.0-30.0) sec Sodium 132 L (137-145) mmol/L BUN 35 H (9-20) mg/dL Creatinine 1.43 H (0.66-1.25) mg/dL Glucose 184 H (74-99) mg/dL POC Glucose (mg/dL) 172 H (70-110) mg/dL Calcium 7.9 L (8.4-10.2) mg/dL 06/01/22 Range/Units 06:12 APTT (22.0-30.0) sec Sodium (137-145) mmol/L BUN (9-20) mg/dL Creatinine (0.66-1.25) mg/dL Glucose (74-99) mg/dL POC Glucose (mg/dL) 139 H (70-110) mg/dL Calcium (8.4-10.2) mg/dL
[2022-06-01 11:56] LABS: Glucose,Whole Blood 184 mg/dL (70-110)
[2022-06-01] MEDS: SODIUM CHLORIDE 0.9% 1,000 ML IV SCH (12:17)
[2022-06-01] MEDS: HEPARIN SOD,PORK IN 0.45% NACL 25,000 UNIT in 0.45% NACL 1 250ML.BAG IV SCH (12:19)
--- NOTE | 2022-06-01 13:43 | P.PN ---
Subjective Progress Note Date: 06/01/22 This is a 67-year-old male who was recently admitted with chest pain, unstable angina with vascular cellulitis and being closely monitored with cardiology following closely. Plan is for cardiac catheterization in the a.m. Initially patient was scheduled for cardiac catheterization today although kidney functions slightly worsened and creatinine today is 1.59. Patient also more lethargic today and will adjust medications. Patient was placed back on heparin drip and will await cardiology report. Most recent EF is 30%. Patient is afebrile denies shortness of breath or palpitations. Patient denies nausea or vomiting and is tolerating diet. Patient was placed on gentle IV hydration and will follow-up with repeat labs in a.m. 06/01/2022 Patient is seen in follow-up today being followed by cardiology and was tentatively scheduled for cardiac catheterization today although kidney functions continue to be elevated and currently and kidneys with low blood pressure. Patient does have history of heart failure and recommend gentle IV hydration with follow-up labs. Blood pressure has been on the softer side and normally takes lisinopril although will hold and follow-up and will watch the labs closely. Nephrology consultation and appreciate input and recommendations. Patient continues to have retention and has been requiring straight catheterization. Patient normally takes Flomax and will continue and will also recommend indwelling Gamble catheter. Patient is continued on IV heparin and plans for possible cardiac catheterization this Monday. Continue telemetry monitoring. Encouraged oral intake and increased activity as tolerated. Patient more alert and awake today than yesterday. Patient is afebrile denies chest pain or worsening shortness of breath. No reports of nausea or vomiting and patient is tolerating diet. Review of systems: Constitutional: reports of fatigue, no fever, or chills Cardiovascular: No reports of chest pain or palpitations Respiratory: No reports of shortness of breath or cough GI: no reports of nausea, no reports of of vomiting, no reports of diarrhea : No reports of dysuria or retention Neurovascular: reports of generalized weakness All medications have been reviewed Active Medications Albuterol/Ipratropium (Ipratropium-Albuterol 3 Ml Neb) 3 ml INHALATION RT-TID [facility] Last Admin: 06/01/22 12:31 Dose: Not Given Albuterol/Ipratropium (Ipratropium-Albuterol 3 Ml Neb) 3 ml INHALATION RT-TID PRN PRN Reason: Shortness Of Breath Or Wheezing Alprazolam (Alprazolam 0.25 Mg Tab) 0.25 mg PO Q6HR PRN PRN Reason: Mild Anxiety Amiodarone HCl (Amiodarone 200 Mg Tab) 200 mg PO DAILY [facility] Last Admin: 06/01/22 06:45 Dose: 200 mg Aspirin (Aspirin 81 Mg) 81 mg PO DAILY [facility] Last Admin: 06/01/22 06:45 Dose: 81 mg Atorvastatin Calcium (Atorvastatin 80 Mg Tab) 80 mg PO HS [facility] Last Admin: 05/31/22 20:25 Dose: 80 mg Bacitracin (Bacitracin Zinc 500 Unit/Gm Oint 28.4 Gm Tube) 1 applic TOPICAL QID [facility]; Protocol Last Admin: 06/01/22 12:17 Dose: 1 applic Doxycycline Monohydrate (Doxycycline 100 Mg Cap) 100 mg PO BID [facility]; Protocol Last Admin: 06/01/22 06:45 Dose: 100 mg Glimepiride (Glimepiride 4 Mg Tab) 4 mg PO QAM [facility] Last Admin: 06/01/22 06:45 Dose: Not Given Heparin Sodium (Porcine) (Heparin Sodium 1,000 Un/Ml (10ml Vl)) 0 unit IV PER PROTOCOL PRN; Protocol PRN Reason: Low PTT Heparin Sodium/Sodium Chloride (25,000 unit/ Sodium Chloride) 250 mls @ 9.955 mls/hr IV .Q24H [facility]; Protocol Last Admin: 06/01/22 12:19 Dose: 23.45 units/kg/hr, 21.22 mls/hr Heparin Sodium (Porcine) 10, (000 unit/ Sodium Chloride) 1,001 mls @ 999 mls/hr IRRIGATION ONCE PRN PRN Reason: INTRA-OP Stop: 06/01/22 23:00 Heparin Sodium (Porcine) 2,500 (unit/ Sodium Chloride) 250.5 mls @ 250 mls/hr IRRIGATION ONCE PRN PRN Reason: INTRA-OP Stop: 06/01/22 23:00 Sodium Chloride (Saline 0.9%) 1,000 mls @ 50 mls/hr IV .Q20H [facility] Last Admin: 06/01/22 12:17 Dose: 50 mls/hr Insulin Aspart (Insulin Aspart (Novolog) 100 Unit/Ml Vial) 0 unit SQ ACHS [facility]; Protocol Last Admin: 06/01/22 12:17 Dose: 2 unit Lisinopril (Lisinopril 5 Mg Tab) 5 mg PO DAILY [facility] Last Admin: 06/01/22 06:45 Dose: Not Given Loratadine (Loratadine 10 Mg Tab) 10 mg PO HS [facility] Last Admin: 05/31/22 20:24 Dose: 10 mg Meloxicam (Meloxicam 7.5 Mg Tab) 7.5 mg PO DAILY [facility] Last Admin: 06/01/22 06:45 Dose: 7.5 mg Metoprolol Succinate (Metoprolol Succinate (Er) 50 Mg Tab.Er.24h) 50 mg PO DAILY [facility] Last Admin: 06/01/22 06:45 Dose: Not Given Nitroglycerin (Nitroglycerin Sl Tabs 0.4 Mg Tab) 0.4 mg SUBLINGUAL Q5M PRN PRN Reason: Chest Pain Non-Formulary Medication (Acetaminophen/Diphenhydramine [Tylenol Pm 500-25mg]) 1 tab PO QID PRN PRN Reason: Pain Pantoprazole Sodium (Pantoprazole 40 Mg Tablet) 40 mg PO DAILY [facility] Last Admin: 06/01/22 06:45 Dose: 40 mg Pioglitazone HCl (Pioglitazone 30 Mg Tab) 30 mg PO DAILY [facility] Last Admin: 06/01/22 06:45 Dose: Not Given Pregabalin (Pregabalin 50 Mg Cap) 50 mg PO BID [facility] Last Admin: 06/01/22 06:46 Dose: 50 mg Tamsulosin HCl (Tamsulosin 0.4 Mg Cap.Er.24h) 0.4 mg PO PC-SUPPER [facility] Last Admin: 05/31/22 16:59 Dose: 0.4 mg Topiramate (Topiramate 25 Mg Tab) 25 mg PO BID [facility] Last Admin: 06/01/22 06:45 Dose: 25 mg PHYSICAL EXAMINATION: GENERAL: The patient is alert and oriented x3, more awake today. Well developed, well nourished. HEENT: Pupils are round and equally reacting to light. EOMI. no scleral icterus. No conjunctival pallor. Normocephalic, atraumatic. No pharyngeal erythema. No thyromegaly. CARDIOVASCULAR: S1 and S2 muffled PULMONARY: diminished breath sounds bilaterally with no wheezing or rhonchi not ed. ABDOMEN: soft. Nontender on exam. obese. non-distended, normoactive bowel sounds. No palpable organomegaly. MUSCULOSKELETAL: No joint swelling or deformity. EXTREMITIES: No cyanosis, clubbing, or pedal edema. NEUROLOGICAL: Gross neurological examination did not reveal any focal deficits. Diffuse weakness SKIN: No rashes. Assessment: Chest pain, possible answered unstable angina, possible acute non-ST segment elevation myocardial infarction with troponin of 0.045 Cellulitis of the right hand Urinary retention, possibly secondary to acute kidney injury requiring indwelling Gamble catheter Congestive heart failure acute exacerbation with acute on chronic diastolic dysfunction Continued ongoing nicotine dependence Atrial fibrillation History of asthma History of CVA/TIA Diabetes mellitus, type II, uncontrolled with hyper and hypoglycemia Gastroesophageal reflux disease Hyperlipidemia Hypertension History of PEs and DVTs GI prophylaxis DVT prophylaxis Full code Plan: Recommend to continue with current medications and management with multiple medical consultation following. Patient is maintained on oral doxycycline for cellulitis of the hand with infectious disease following. Patient was initially scheduled for cardiac catheterization with cardiology today although kidney functions and kidney to be elevated and also having some urinary retention requiring indwelling Gamble catheter. Patient is on Flomax and will continue and will also consult nephrology and appreciate input and recommendations. Recommend to continue gentle IV hydration follow-up labs and plan is tentatively now scheduled for cardiac catheterization on Monday. Recommend to continue telemetry monitoring. Patient was placed back on IV heparin until catheterization. Encouraged oral intake and increased activity as tolerated. Due to multiple complex medical issues, prognosis is guarded. The impression and plan of care has been dictated by Rashida Peterson, nurse practitioner as directed. Dr. Antonio MD I have performed a history and examination and MDM of this patient, discussed the same with the dictator, and agree with the dictator's assessment and plan as written ,documented as a scribe. Based on total visit time, I have performed more than 50% of the visit. Any additional findings or plans will be noted. Objective - Vital Signs Vital signs: Vital Signs Temp 97.7 F 06/01/22 08:36 Pulse 62 06/01/22 08:37 Resp 18 06/01/22 08:37 BP 103/62 06/01/22 08:36 Pulse Ox 96 06/01/22 08:36 FiO2 Intake & Output 05/31/22 06/01/22 06/01/22 18:59 06:59 18:59 Intake Total 490.000 250 Output Total 9227 401 5368 Balance -510.000 -450 -800 Weight 94.5 kg Intake: Intake, IV Titration 250.000 250 Amount Heparin Sod,Pork in 0.45% 250.000 250 NaCl 25,000 unit In 0.45 % NaCl 1 250ml.bag @ 11 UNITS/KG/HR 9.955 mls/hr IV .Q24H [facility] Rx#: [id number] Oral 240 Output: Urine 0911 194 8647 Straight 500 800 Other: Voiding Method Urinal Urinal Urinal - Labs CBC & Chem 7: 05/31/22 07:21 06/01/22 02:48 Labs: Abnormal Lab Results - Last 24 Hours (Table) 05/31/22 05/31/22 05/31/22 Range/Units 13:48 16:21 19:34 APTT 58.2 H (22.0-30.0) sec Sodium (137-145) mmol/L BUN (9-20) mg/dL Creatinine (0.66-1.25) mg/dL Glucose (74-99) mg/dL POC Glucose (mg/dL) 155 H 172 H (70-110) mg/dL Calcium (8.4-10.2) mg/dL 06/01/22 06/01/22 06/01/22 Range/Units 02:48 02:48 06:12 APTT 65.7 H (22.0-30.0) sec Sodium 132 L (137-145) mmol/L BUN 35 H (9-20) mg/dL Creatinine 1.43 H (0.66-1.25) mg/dL Glucose 184 H (74-99) mg/dL POC Glucose (mg/dL) 139 H (70-110) mg/dL Calcium 7.9 L (8.4-10.2) mg/dL 06/01/22 Range/Units 11:54 APTT (22.0-30.0) sec Sodium (137-145) mmol/L BUN (9-20) mg/dL Creatinine (0.66-1.25) mg/dL Glucose (74-99) mg/dL POC Glucose (mg/dL) 184 H (70-110) mg/dL Calcium (8.4-10.2) mg/dL
[2022-06-01 16:40] LABS: Glucose,Whole Blood 110 mg/dL (70-110)
[2022-06-01] MEDS: TAMSULOSIN 0.4 MG CAP.ER.24H PO SCH (16:49)
[2022-06-01 20:15] LABS: Glucose,Whole Blood 124 mg/dL (70-110)
[2022-06-01] MEDS: LORATADINE 10 MG TAB PO SCH (21:18)
[2022-06-01] MEDS: ATORVASTATIN 80 MG TAB PO SCH (21:18)
[2022-06-02] MEDS: HEPARIN SOD,PORK IN 0.45% NACL 25,000 UNIT in 0.45% NACL 1 250ML.BAG IV SCH ×2 (00:29→11:58)
[2022-06-02 06:15] LABS: Glucose,Whole Blood 151 mg/dL (70-110)
[2022-06-02] MEDS: INSULIN ASPART (NovoLOG) 100 UNIT/ML VIAL SQ SCH ×4 (06:30→20:23)
[2022-06-02] MEDS: SODIUM CHLORIDE 0.9% 1,000 ML IV SCH (06:30)
[2022-06-02] MEDS ORDERED: oxyCODONE-APAP 10-325MG 1 EACH TAB PO ONE (06:45)
[2022-06-02] MEDS: AMIODARONE 200 MG TAB PO SCH (08:00)
[2022-06-02] MEDS: ASPIRIN 81 MG PO SCH (08:00)
[2022-06-02] MEDS: TOPIRAMATE 25 MG TAB PO SCH ×2 (08:00→20:26)
[2022-06-02] MEDS: PREGABALIN 50 MG CAP PO SCH ×2 (08:00→20:26)
[2022-06-02] MEDS: PANTOPRAZOLE 40 MG TABLET PO SCH (08:00)
[2022-06-02] MEDS: METOPROLOL SUCCINATE (ER) 50 MG TAB.ER.24H PO SCH (08:00)
[2022-06-02] MEDS: GLIMEPIRIDE 4 MG TAB PO SCH (08:01)
[2022-06-02] MEDS: DOXYCYCLINE 100 MG CAP PO SCH ×2 (08:01→20:26)
[2022-06-02] MEDS: BACITRACIN ZINC 500 UNIT/GM OINT 28.4 GM TUBE TOPICAL SCH ×4 (08:01→20:23)
[2022-06-02] MEDS: PIOGLITAZONE 30 MG TAB PO SCH (08:01)
[2022-06-02] MEDS: IPRATROPIUM-ALBUTEROL 3 ML NEB INHALATION SCH ×3 (09:24→21:02)
--- NOTE | 2022-06-02 10:06 | P.NPCON ---
History of Present Illness - Reason for Consult acute renal failure - History of Present Illness Reason for consultation: Acute kidney injury History of present illness: Patient is a 67-year-old male seen in renal consultation for acute kidney injury. Patient's creatinine on admission was 0.91 and peaked at 1.59 on 05/31/2022. It was 1.53 yesterday. Labs from today are pending. Patient presented to the hospital with chest pain or shortness of breath. Patient is currently receiving normal saline at 50 mL an hour. He is on IV heparin. He doesn't taking nonsteroidals as needed for pain outpatient. He has a Gamble catheter for urinary retention. Patient also received IV contrast dye on May 28 for a CTA. Patient's ejection fraction is 30%. He has history of left [id number] amputation. Currently resting in bed. He is on room air. Blood pressure stable but on the lower side. He was on Mobic which has been discontinued. He was also on lisinopril which is now held. Patient does have long-standing history of diabetes. No vomiting or diarrhea. Oral intake fair. No chest pain or shortness of breath now. Cardiac catheterization is being considered. Patient was being diuresed and was stopped due to worsening renal function. Vital signs are stable. General: No acute distress. HEENT: Head exam is unremarkable. LUNGS: Breath sounds decreased. HEART: Rate and Rhythm are regular. ABDOMEN: Soft, no distention. EXTREMITITES: Left xbfvt-pbe-[id number] amputation. Past Medical History Past Medical History: Atrial Fibrillation, Asthma, COPD, CVA/TIA, Diabetes Mellitus, Deep Vein Thrombosis (DVT), GERD/Reflux, Hyperlipidemia, Hypertension, Neurologic Disorder, Osteoarthritis (OA), Pneumonia, Pulmonary Embolus (PE), Skin Disorder, Vascular Disorder Additional Past Medical History / Comment(s): Pt admitted to [facility] on 11/20/20 with hyperkalemia, hyperglycemia, uncontrolled diabetes. Other hx: Lupus anticoagulant, DVTs bilateral legs, PEs bilateral lungs, pt has zina filter, L AKA/wheelchair bound, NIDDM type II, neuropathy bilateral hands, wound care patient for buttock wound, now healed, TIAs, pneumothorax, past migraines, chronic low back pain, R leg edema at times, varicosities. History of Any Multi-Drug Resistant Organisms: MRSA Date of last positivie culture/infection: 06/04/21 MDRO Source:: Right Leg MRSA Past Surgical History: Adenoidectomy, Appendectomy, Tonsillectomy Additional Past Surgical History / Comment(s): 1980s [place] filter, stents in vessels "in pelvic area", total L hip arthroplasty, vein strippings, colonoscopy. left leg amputation Past Anesthesia/Blood Transfusion Reactions: No Reported Reaction Additional Past Anesthesia/Blood Transfusion Reaction / Comment(s): Pt has received blood in past without reaction. Past Psychological History: No Psychological Hx Reported Smoking Status: Current every day smoker Past Alcohol Use History: None Reported Past Drug Use History: Marijuana - Past Family History Mother Family Medical History: Coronary Artery Disease (CAD), Myocardial Infarction ([place]), Vascular Disorder Additional Family Medical History / Comment(s): heart disease, peripheral vascular disease. Father Family Medical History: Diabetes Mellitus, Renal Disease Medications and Allergies Home Medications Medication Instructions Recorded Confirmed Type Atorvastatin [Lipitor] 80 mg PO DIRECTED 01/09/14 05/28/22 History Topiramate [Topamax] 25 mg PO DIRECTED 01/09/14 05/28/22 History Nortriptyline [Pamelor] 50 mg PO DIRECTED 08/15/19 05/28/22 History Omeprazole [PriLOSEC] 20 mg PO DIRECTED 08/15/19 05/28/22 History Loratadine 10 mg PO DIRECTED 10/30/19 05/28/22 History Metoprolol Succinate (ER) [Toprol 50 mg PO DIRECTED 02/29/20 05/28/22 History XL] Celecoxib [CeleBREX] 200 mg PO DIRECTED 06/02/21 05/28/22 History Pioglitazone [Actos] 30 mg PO DIRECTED 06/02/21 05/28/22 History Potassium Chloride [Klor-Con 10 ER] 10 meq PO DIRECTED 06/02/21 05/28/22 History metFORMIN HCL 500 mg PO DIRECTED 06/02/21 05/28/22 History Glimepiride [Amaryl] 4 mg PO DIRECTED 09/07/21 05/28/22 History Pregabalin [Lyrica] 300 mg PO DIRECTED 09/07/21 05/28/22 History Amiodarone [Cordarone] 200 mg PO DIRECTED 03/27/22 05/28/22 History Acetaminophen/Diphenhydramine 1 - 2 tab PO QID PRN 05/28/22 05/28/22 History [Tylenol PM 500-25mg] DULoxetine HCL [Cymbalta] 20 mg PO DIRECTED 05/28/22 05/28/22 History Furosemide [Lasix] 40 mg PO DIRECTED 05/28/22 05/28/22 History Ibuprofen [Advil] 400 mg PO Q6H PRN 05/28/22 05/28/22 History Warfarin [Coumadin] 3 mg PO DIRECTED 05/28/22 05/28/22 History lisinopriL [Zestril] 10 mg PO DIRECTED 05/28/22 05/28/22 History Allergies Allergy/AdvReac Type Severity Reaction Status Date / Time baclofen Allergy Unknown Verified 05/28/22 15:59 apixaban [From Eliquis] AdvReac "felt Verified 05/28/22 16:12 funny" Physical Exam Vitals: Vital Signs Temp Pulse Resp BP Pulse Ox 06/02/22 09:24 94 L 06/02/22 08:04 97.8 F 84 17 98/56 97 06/02/22 04:00 97.8 F 53 L 18 94/54 97 06/02/22 02:00 60 16 06/01/22 23:54 97.9 F 60 16 93/53 96 06/01/22 20:00 97.9 F 70 16 106/60 97 06/01/22 16:00 97.5 F L 59 L 18 104/64 96 06/01/22 14:00 61 18 06/01/22 12:00 61 18 108/68 96 Intake and Output 06/01/22 06/02/22 06/02/22 22:59 06:59 14:59 Intake Total 250 240 Output Total 500 900 Balance -500 -650 240 Intake: Intake, IV Titration 250 Amount Heparin Sod,Pork in 0.45% 250 NaCl 25,000 unit In 0.45 % NaCl 1 250ml.bag @ 11 UNITS/KG/HR 9.955 mls/hr IV .Q24H [facility] Rx#: [id number] Oral 240 Output: Urine 500 900 Other: Voiding Method Indwelling Catheter Indwelling Catheter Results - Lab Results Most recent lab results Calcium 7.9 mg/dL (8.4-10.2) L 06/01/22 02:48 Magnesium 2.1 mg/dL (1.6-2.3) 05/28/22 12:49 05/31/22 07:21 06/01/22 02:48 Assessment and Plan Plan: Assessment: 1. Acute kidney injury secondary to ATN secondary to contrast-induced acute kidney injury and diuresis. Further worsened with the use of JEVON inhibitor and nonsteroidals. Patient received IV contrast on 05/28/2022. Creatinine peaked at 1.5 on this admission and was 1.43 yesterday. UA benign. 2. Cardiomyopathy with ejection fraction of 30%. ACS being ruled out. Cardiology following. 3. Diabetes mellitus. 4. Status post left AKA. 5. Urinary retention status post Gamble catheter placement. On Flomax. Plan: Maintain normal saline at 50 mL an hour. Diuretics and JEVON inhibitor held. Nonsteroidals discontinued. Avoid nephrotoxins. Discussed with patient the risk of worsening renal failure, potentially r equiring renal replacement therapy, post-IV contrast exposure. He understands. Will maintain IV hydration pre-and post-IV contrast exposure to prevent contrast-induced acute kidney injury. Continue to monitor renal function and urine output. Check renal ultrasound. Thank you for the consultation. I will continue to follow the patient with you during his hospital stay.
--- NOTE | 2022-06-02 10:33 | P.PN ---
Subjective From the records This is a 67-year-old male who was recently admitted with chest pain, unstable angina with vascular cellulitis and being closely monitored with cardiology following closely. Plan is for cardiac catheterization in the a.m. Initially patient was scheduled for cardiac catheterization today although kidney functions slightly worsened and creatinine today is 1.59. Patient also more lethargic today and will adjust medications. Patient was placed back on heparin drip and will await cardiology report. Most recent EF is 30%. Patient is afebrile denies shortness of breath or palpitations. Patient denies nausea or vomiting and is tolerating diet. Patient was placed on gentle IV hydration and will follow-up with repeat labs in a.m. 06/01/2022 Patient is seen in follow-up today being followed by cardiology and was tentatively scheduled for cardiac catheterization today although kidney functions continue to be elevated and currently and kidneys with low blood pressure. Patient does have history of heart failure and recommend gentle IV hydration with follow-up labs. Blood pressure has been on the softer side and normally takes lisinopril although will hold and follow-up and will watch the labs closely. Nephrology consultation and appreciate input and recommendations. Patient continues to have retention and has been requiring straight catheterization. Patient normally takes Flomax and will continue and will also recommend indwelling Gamble catheter. Patient is continued on IV heparin and plans for possible cardiac catheterization this Monday. Continue telemetry monitoring. Encouraged oral intake and increased activity as tolerated. Patient more alert and awake today than yesterday. Patient is afebrile denies chest pain or worsening shortness of breath. No reports of nausea or vomiting and patient is tolerating diet. I Resumed the care of the today 06/02/2022 Subjective Patient was resting in bed with no chest pain or tachypnea or dyspnea. He was complaining of from his right ring Finger but he has small wound at the proximal interphalangeal joint with no significant surrounding cellulitis. He was on room air. Gamble catheter in a Place. Patient requesting for pain medication for his right leg, MAPS was checked on the last time he got Percocet 10 mg prescribed for him was 11/17/2021 for q uantity of 12 for 3 days. We going to start gabapentin Patient will plan to undergo cardiac cath on Monday because of his worsening kidney function, double needle operator and front desk monitor on the case. He has history of left BKA Distal on heparin drip and normal saline Objective - Vital Signs Vital signs: Vital Signs Temp 97.8 F 06/02/22 08:04 Pulse 84 06/02/22 08:04 Resp 17 06/02/22 08:04 BP 98/56 06/02/22 08:04 Pulse Ox 94 L 06/02/22 09:24 FiO2 Intake & Output 06/01/22 06/02/22 06/02/22 18:59 06:59 18:59 Intake Total 250 250 240 Output Total 1550 900 Balance -1300 -650 240 Intake: Intake, IV Titration 250 250 Amount Heparin Sod,Pork in 0.45% 250 250 NaCl 25,000 unit In 0.45 % NaCl 1 250ml.bag @ 11 UNITS/KG/HR 9.955 mls/hr IV .Q24H [facility] Rx#: [id number] Oral 240 Output: Urine 1550 900 Straight 800 Other: Voiding Method Urinal Indwelling Catheter - Exam GENERAL: The patient is alert and oriented x3, not in any acute distress. Well developed, well nourished. HEENT: Pupils are round and equally reacting to light. EOMI. No scleral icterus. No conjunctival pallor. Normocephalic, atraumatic. No pharyngeal erythema. No thyromegaly. CARDIOVASCULAR: S1 and S2 present. No murmurs, rubs, or gallops. PULMONARY: Chest is clear to auscultation, no wheezing or crackles. ABDOMEN: Soft, nontender, nondistended, normoactive bowel sounds. No palpable organomegaly. MUSCULOSKELETAL: No joint swelling or deformity. -EXTREMITIES: No cyanosis, clubbing, or pedal edema. Status post left BKA. Right small wound in the index finger with no significant surrounding cellulitis NEUROLOGICAL: Gross neurological examination did not reveal any focal deficits. SKIN: No rashes. no petechiae. - Labs CBC & Chem 7: 05/31/22 07:21 06/01/22 02:48 Labs: Abnormal Lab Results - Last 24 Hours (Table) 06/01/22 06/01/22 06/02/22 Range/Units 11:54 20:14 06:12 POC Glucose (mg/dL) 184 H 124 H 151 H (70-110) mg/dL Assessment and Plan Assessment: possible acute non-ST segment elevation myocardial infarction with elevated troponin Wound of the right ring finger with very minimal Cellulitis acute kidney injury most likely contrast-induced nephropathy complicated by use of JEVON inhibitor and NSAIDs Cardiomyopathy with ejection fraction 30% Mediastinal and bronchial lymphadenopathy emphysematous changes Continued ongoing nicotine dependence chronic Atrial fibrillation, on Coumadin in the office, currently on heparin drip History of asthma History of CVA/TIA Diabetes mellitus, type II, uncontrolled with hyper and hypoglycemia Gastroesophageal reflux disease Hyperlipidemia Hypertension History of PEs and DVTs Plan: Continue with aspirin 81 mg and heparin drip [employer] Research Engineer on the case On metoprolol Continue gentle hydration with monitored kidney function, double needle operator on the case, she may require renal placement therapy of if his kidney function wosens continue with oral doxycycline He pulled and metformin, lisinopril. KATHLEEN Quevedo. Labs and medication were reviewed.. Continue same treatment. Continue with symptomatic treatment. Resume home medication. Monitor labs and vitals. DVT and GI prophylaxis. Further recommendations as per clinical course of the patient DVT prophylaxis: heparin GI Prophylaxis: Ppi PT/OT: Pending Prognosis is guarded
[2022-06-02 11:12] LABS: Basophils % (A) 0 %; Eosinophils # (A) 0.1 k/uL (0-0.7); Eosinophils % (A) 2 %; HCT 34.7 % (39.0-53.0); HGB 10.6 gm/dL (13.0-17.5); Hypochromasia Marked; Lymphocytes # (A) 1.8 k/uL (1.0-4.8); Lymphocytes % (A) 29 %; MCH 29.2 pg (25.0-35.0); MCHC 30.4 g/dL (31.0-37.0); Mean Platelet Volume 7.9; Monocytes # (A) 0.4 k/uL (0-1.0); Monocytes % (A) 6 %; Neutrophils # (A) 3.7 k/uL (1.3-7.7); Neutrophils % (A) 61 %; Platelet Count 310 k/uL (150-450); RBC 3.61 m/uL (4.30-5.90); RDW 14.1 % (11.5-15.5); WBC 6.1 k/uL (3.8-10.6)
[2022-06-02] MEDS ORDERED: GABAPENTIN 100 MG CAP PO ONE ×2 (11:30→19:45)
[2022-06-02 11:39] LABS: Calcium 7.7 mg/dL (8.4-10.2); Potassium 5.5 mmol/L (3.5-5.1)
[2022-06-02 11:48] LABS: Glucose,Whole Blood 136 mg/dL (70-110)
[2022-06-02 11:50] LABS: Partial Thromboplastin Time 81.8 sec (22.0-30.0); Prothrombin Time 11.2 sec (9.0-12.0)
[2022-06-02] MEDS ORDERED: SODIUM ZIRCONIUM CYCLOSILICATE 10 GM PACKET PO ONE (12:11)
--- NOTE | 2022-06-02 13:02 | P.PN ---
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 Peripheral artery disease s/p Bilateral stents in the iliac artery. Patient follows with Dr. Heaton in the office, last followed up in 2019. Consult to see the patient for chest pain. Patient came in initially complaining of shortness of breath and chest pain. Patient is on warfarin and is noncompliant with his medications. INR was 1. His troponins were mildly elevated at 0.046, 0.044, 0.045. Patient's BNP was 12,700 he is on IV Lasix 40 mg every 8hr. Patient's d-dimer was elevated CTA of the chest was negative for pulmonary embolism, did show pneumonia with right pleural effusion, emphysema, and pulmonary fibrosis. He underwent an ultrasound of his right lower leg to rule out DVT. He underwent an echocardiogram in November 2021 which showed a normal LV function with an ejection fraction 55-60%. 06/01/2022 Patient seen and examined at bedside, Denies shortness of breath or chest pain this morning. His vital signs are stable, BP on the lower end 103/62, HR 62. Continues to be on IV heparin drip. Lasix has been held secondary to ANDERSON. Echo revealed EF reduced to 30%, global hypokinesis. Serum creatinine 1.43, yesterday 1.59 06/02 Patient seen and examined. Patient still admits to some vague chest tightness however no obvious chest pain or pressure and feels similar to before. Creatinine mildly improved to 1.3 today. Possible heart catheterization tomorrow. GENERAL: In no acute distress. NECK: Supple without JVD LUNGS: Breath sounds clear to auscultation bilaterally. Respiration equal and unlabored. No wheezes, rales or rhonchi. HEART: Regular rate and rhythm without murmurs, rubs or gallops. S1 and S2 heard. EXTREMITIES: Normal range of motion, no edema. No clubbing or cyanosis. Peripheral pulses intact. ASSESSMENT Elevated troponin, rule out ACS Cardiomyopathy EF 30%, ischemic vs non-ischemic Acute kidney injury likely related to IV diuresis Chest pain Shortness of breath Hypertension History of paroxysmal atrial fibrillation on coumadin outpatient Non-compliant with medication Chronic nicotine dependence Dyslipidemia History of DVT History of left above knee amputation PLAN Holding PO coumadin anticoagulation and Continue IV heparin Continue low rate IV fluids Hold Lasix Continue aspirin, statin, beta maria and lisinopril Monitor renal function NPO after midnight for Monday for possible cardiac catheterization. Likely heart catheterization 06/03 if creatinine remains stable Further recommendations based on clinical course Objective - Vital Signs Vital signs: Vital Signs Temp 97.6 F 06/02/22 12:00 Pulse 74 06/02/22 12:00 Resp 18 06/02/22 12:00 BP 108/68 06/02/22 12:00 Pulse Ox 98 06/02/22 12:00 FiO2 Intake & Output 06/01/22 06/02/22 06/02/22 18:59 06:59 18:59 Intake Total 250 250 483.172 Output Total 1550 900 750 Balance -1300 -650 -266.828 Intake: Intake, IV Titration 250 250 243.172 Amount Heparin Sod,Pork in 0.45% 250 250 243.172 NaCl 25,000 unit In 0.45 % NaCl 1 250ml.bag @ 11 UNITS/KG/HR 9.955 mls/hr IV .Q24H [facility] Rx#: [id number] Oral 240 Output: Urine 1550 900 750 Straight 800 Other: Voiding Method Urinal Indwelling Catheter Indwelling Catheter # Bowel Movements 1 - Labs CBC & Chem 7: 06/02/22 10:30 06/02/22 10:30 Labs: Abnormal Lab Results - Last 24 Hours (Table) 06/01/22 06/02/22 06/02/22 Range/Units 20:14 06:12 10:30 RBC (4.30-5.90) m/uL Hgb (13.0-17.5) gm/dL Hct (39.0-53.0) % MCHC (31.0-37.0) g/dL APTT (22.0-30.0) sec Sodium 133 L (137-145) mmol/L Potassium 5.5 H (3.5-5.1) mmol/L BUN 28 H (9-20) mg/dL Creatinine 1.34 H (0.66-1.25) mg/dL Glucose 135 H (74-99) mg/dL POC Glucose (mg/dL) 124 H 151 H (70-110) mg/dL Calcium 7.7 L (8.4-10.2) mg/dL 06/02/22 06/02/22 06/02/22 Range/Units 10:30 10:30 11:35 RBC 3.61 L (4.30-5.90) m/uL Hgb 10.6 L (13.0-17.5) gm/dL Hct 34.7 L (39.0-53.0) % MCHC 30.4 L (31.0-37.0) g/dL APTT 81.8 H (22.0-30.0) sec Sodium (137-145) mmol/L Potassium (3.5-5.1) mmol/L BUN (9-20) mg/dL Creatinine (0.66-1.25) mg/dL Glucose (74-99) mg/dL POC Glucose (mg/dL) 136 H (70-110) mg/dL Calcium (8.4-10.2) mg/dL
--- NOTE | 2022-06-02 14:42 | US ---
EXAMINATION TYPE: US kidneys/renal and bladder DATE OF EXAM: 06/02/2022 COMPARISON: NONE CLINICAL HISTORY: mustapha. Abnormal labs. Patient has bladder montero. Inpatient. EXAM MEASUREMENTS: Right Kidney: 11.8 x 4.2 x 4.2 cm Left Kidney: 11.1 x 5.4 x 5.0 cm Right Kidney: No hydronephrosis or masses seen Left Kidney: No hydronephrosis or masses seen, lower pole not well visualized due to bowel gas Bladder: Montero seen IMPRESSION: No evidence of renal mass or obstruction. Urinary bladder is almost empty with Montero catheter.
[2022-06-02 16:51] LABS: Glucose,Whole Blood 197 mg/dL (70-110)
[2022-06-02] MEDS: TAMSULOSIN 0.4 MG CAP.ER.24H PO SCH (16:59)
[2022-06-02 20:00] LABS: Glucose,Whole Blood 129 mg/dL (70-110)
[2022-06-02] MEDS: ATORVASTATIN 80 MG TAB PO SCH (20:26)
[2022-06-02] MEDS: LORATADINE 10 MG TAB PO SCH (20:26)
--- NOTE | 2022-06-02 22:48 | P.PN ---
Subjective Progress Note Date: 05/31/22 Principal diagnosis: Bilateral hand and finger wound Patient is a 67-year-old male with multiple comorbidities including diabetic wound infection requiring mxewu-mol-kass amputation, presenting to the hospital with chest pain in this patient who did have traumatic wound to the left ring and right middle finger On today's evaluation that is 05/31/2022, the patient remains to be afebrile, the patient is currently breathing comfortably no further chest pain or cough. The patient denies having any pain to bilateral hand finger wound area and there is no drainage, no abdominal pain no diarrhea Objective - Vital Signs Vital signs: Vital Signs Temp 98.0 F 05/31/22 12:00 Pulse 66 05/31/22 13:09 Resp 16 05/31/22 12:00 BP 90/50 05/31/22 12:00 Pulse Ox 93 L 05/31/22 12:00 FiO2 Intake & Output 05/30/22 05/31/22 05/31/22 18:59 06:59 18:59 Intake Total 212.819 430 Output Total 400 425 Balance -187.181 5 Weight 90.5 kg 89.8 kg Intake: IV 180 .9@20 180 Intake, IV Titration 92.819 250 Amount Heparin Sod,Pork in 0.45% 92.819 250 NaCl 25,000 unit In 0.45 % NaCl 1 250ml.bag @ 11 UNITS/KG/HR 9.955 mls/hr IV .Q24H [facility] Rx#: [id number] Oral 120 Output: Urine 400 425 Other: Voiding Method Urinal Urinal Urinal - Exam GENERAL DESCRIPTION: An elderly male lying in bed in no distress RESPIRATORY SYSTEM: Unlabored breathing , decreased breath sounds at bases HEART: S1 S2 regular rate and rhythm , ABDOMEN: Soft , no tenderness EXTREMITIES: Right index finger wound with no slough tissue or surrounding redness - Labs CBC & Chem 7: 06/02/22 10:30 06/02/22 17:43 Labs: Abnormal Lab Results - Last 24 Hours (Table) 05/30/22 05/30/22 05/31/22 Range/Units 16:24 19:49 07:21 RBC (4.30-5.90) m/uL Hgb (13.0-17.5) gm/dL PT (9.0-12.0) sec Sodium 133 L (137-145) mmol/L Potassium 5.2 H (3.5-5.1) mmol/L BUN 32 H (9-20) mg/dL Creatinine 1.59 H (0.66-1.25) mg/dL Glucose 100 H (74-99) mg/dL POC Glucose (mg/dL) 118 H 204 H (70-110) mg/dL Calcium 8.0 L (8.4-10.2) mg/dL 05/31/22 05/31/22 05/31/22 Range/Units 07:21 07:21 11:42 RBC 4.19 L (4.30-5.90) m/uL Hgb 12.1 L (13.0-17.5) gm/dL PT 12.2 H (9.0-12.0) sec Sodium (137-145) mmol/L Potassium (3.5-5.1) mmol/L BUN (9-20) mg/dL Creatinine (0.66-1.25) mg/dL Glucose (74-99) mg/dL POC Glucose (mg/dL) 117 H (70-110) mg/dL Calcium (8.4-10.2) mg/dL Assessment and Plan (1) Finger wound, simple, open Current Visit: Yes Status: Acute Code(s): S61.209A - UNSP OPEN WOUND OF UNSP FINGER W/O DAMAGE TO NAIL, INIT SNOMED Code(s): 296666985 (2) Abnormal CT scan, chest Current Visit: Yes Status: Acute Code(s): R93.89 - ABNORMAL FINDINGS ON DX IMAGING OF OTH BODY STRUCTURES SNOMED Code(s): 60499983354058313 Plan: 1patient did have a wound to the right ring and left middle finger traumatic. Both wounds superficial and did not have significant surrounding swelling re dness concerning for cellulitis and the x-ray did not show any bony changes at that location patient do have a history of MRSA infection 2patient presenting with increasing shortness of breath and chest pain did have CT angiogram of the chest which was abnormal concerning for bilateral lower lobe consolidation possibly fluid related clinical not behaving as pneumonia,patient did have normal procalcitonin level that will make him on a less likely. 3local wound care to the right ring finger as well as left middle finger wound with a dry Aquacel silver dressing change every 48 hour. 4patient to continue with doxycycline 100 mg twice a day and monitor clinical course closely Time with Patient: Less than 30
--- NOTE | 2022-06-02 22:49 | P.PN ---
Subjective Progress Note Date: 06/01/22 Principal diagnosis: Bilateral hand and finger wound Patient is a 67-year-old male with multiple comorbidities including diabetic wound infection requiring [id number]-[id number] amputation, presenting to the hospital with chest pain in this patient who did have traumatic wound to the left ring and right middle finger On today's evaluation that is 06/01/2022, the patient continues to be afebrile, the patient is breathing comfortably on room air, the patient denies chest pain or cough. The patient denies having any pain to bilateral hand finger wound area and there is no drainage, no abdominal pain no diarrhea Objective - Vital Signs Vital signs: Vital Signs Temp 97.7 F 06/01/22 08:36 Pulse 62 06/01/22 08:37 Resp 18 06/01/22 08:37 BP 103/62 06/01/22 08:36 Pulse Ox 96 06/01/22 08:36 FiO2 Intake & Output 05/31/22 06/01/22 06/01/22 18:59 06:59 18:59 Intake Total 490.000 250 Output Total 0197 862 3884 Balance -510.000 -450 -800 Weight 94.5 kg Intake: Intake, IV Titration 250.000 250 Amount Heparin Sod,Pork in 0.45% 250.000 250 NaCl 25,000 unit In 0.45 % NaCl 1 250ml.bag @ 11 UNITS/KG/HR 9.955 mls/hr IV .Q24H [facility] Rx#: [id number] Oral 240 Output: Urine 1405 364 3143 Straight 500 800 Other: Voiding Method Urinal Urinal Urinal - Exam GENERAL DESCRIPTION: An elderly male lying in bed in no distress RESPIRATORY SYSTEM: Unlabored breathing , decreased breath sounds at bases HEART: S1 S2 regular rate and rhythm , ABDOMEN: Soft , no tenderness EXTREMITIES: Right index finger wound with no slough tissue or surrounding redness - Labs CBC & Chem 7: 06/02/22 10:30 06/02/22 17:43 Labs: Abnormal Lab Results - Last 24 Hours (Table) 05/31/22 05/31/22 05/31/22 Range/Units 13:48 16:21 19:34 APTT 58.2 H (22.0-30.0) sec Sodium (137-145) mmol/L BUN (9-20) mg/dL Creatinine (0.66-1.25) mg/dL Glucose (74-99) mg/dL POC Glucose (mg/dL) 155 H 172 H (70-110) mg/dL Calcium (8.4-10.2) mg/dL 06/01/22 06/01/22 06/01/22 Range/Units 02:48 02:48 06:12 APTT 65.7 H (22.0-30.0) sec Sodium 132 L (137-145) mmol/L BUN 35 H (9-20) mg/dL Creatinine 1.43 H (0.66-1.25) mg/dL Glucose 184 H (74-99) mg/dL POC Glucose (mg/dL) 139 H (70-110) mg/dL Calcium 7.9 L (8.4-10.2) mg/dL 06/01/22 Range/Units 11:54 APTT (22.0-30.0) sec Sodium (137-145) mmol/L BUN (9-20) mg/dL Creatinine (0.66-1.25) mg/dL Glucose (74-99) mg/dL POC Glucose (mg/dL) 184 H (70-110) mg/dL Calcium (8.4-10.2) mg/dL Assessment and Plan (1) Finger wound, simple, open Current Visit: Yes Status: Acute Code(s): S61.209A - UNSP OPEN WOUND OF UNSP FINGER W/O DAMAGE TO NAIL, INIT SNOMED Code(s): 487665783 (2) Abnormal CT scan, chest Current Visit: Yes Status: Acute Code(s): R93.89 - ABNORMAL FINDINGS ON DX IMAGING OF OTH BODY STRUCTURES SNOMED Code(s): 20055865769038363 Plan: 1patient did have a wound to the right ring and left middle finger traumatic. Both wounds superficial and did not have significant surrounding swelling redness concerning for cellulitis and the x-ray did not show any bony changes at that location patient do have a history of MRSA infection 2patient presenting with increasing shortness of breath and chest pain did have CT angiogram of the chest which was abnormal concerning for bilateral lower lobe consolidation possibly fluid related clinical not behaving as pneumonia,patient did have normal procalcitonin level that will make him on a less likely. 3local wound care to the right ring finger as well as left middle finger wound with a dry Aquacel silver dressing change every 48 hour. 4patient did not have any evidence of any worsening cellulitis and will continue with doxycycline 100 mg twice a day and monitor clinical course closely Time with Patient: Less than 30
--- NOTE | 2022-06-02 22:51 | P.PN ---
Subjective Progress Note Date: 06/02/22 Principal diagnosis: Bilateral hand and finger wound Patient is a 67-year-old male with multiple comorbidities including diabetic wound infection requiring gzjhq-[id number]-yfmw amputation, presenting to the hospital with chest pain in this patient who did have traumatic wound to the left ring and right middle finger On today's evaluation that is 06/02/2022, the patient remains to be afebrile, the patient is breathing comfortably on room air, the patient denies chest pain shortness of breath or cough. The patient denies having any pain to bilateral hand finger wound area patient denies any nausea no vomiting no abdominal pain no diarrhea Objective - Vital Signs Vital signs: Vital Signs Temp 97.7 F 06/02/22 20:00 Pulse 53 L 06/02/22 20:00 Resp 18 06/02/22 20:00 BP 100/59 06/02/22 20:00 Pulse Ox 93 L 06/02/22 20:00 FiO2 Intake & Output 06/02/22 06/02/22 06/03/22 06:59 18:59 06:59 Intake Total 250 1043.172 120 Output Total 900 1525 Balance -650 -481.828 120 Intake: Intake, IV Titration 250 243.172 Amount Heparin Sod,Pork in 0.45% 250 243.172 NaCl 25,000 unit In 0.45 % NaCl 1 250ml.bag @ 11 UNITS/KG/HR 9.955 mls/hr IV .Q24H [facility] Rx#: [id number] Oral 800 120 Output: Urine 900 1525 Other: Voiding Method Indwelling Catheter Indwelling Catheter Indwelling Catheter # Bowel Movements 1 - Exam GENERAL DESCRIPTION: An elderly male lying in bed in no distress RESPIRATORY SYSTEM: Unlabored breathing , decreased breath sounds at bases HEART: S1 S2 regular rate and rhythm , ABDOMEN: Soft , no tenderness EXTREMITIES: Right index finger wound with no slough tissue or surrounding redness - Labs CBC & Chem 7: 06/02/22 10:30 06/02/22 17:43 Labs: Abnormal Lab Results - Last 24 Hours (Table) 06/02/22 06/02/22 06/02/22 Range/Units 06:12 10:30 10:30 RBC (4.30-5.90) m/uL Hgb (13.0-17.5) gm/dL Hct (39.0-53.0) % MCHC (31.0-37.0) g/dL APTT 81.8 H (22.0-30.0) sec Sodium 133 L (137-145) mmol/L Potassium 5.5 H (3.5-5.1) mmol/L BUN 28 H (9-20) mg/dL Creatinine 1.34 H (0.66-1.25) mg/dL Glucose 135 H (74-99) mg/dL POC Glucose (mg/dL) 151 H (70-110) mg/dL Calcium 7.7 L (8.4-10.2) mg/dL 06/02/22 06/02/22 06/02/22 Range/Units 10:30 11:35 16:46 RBC 3.61 L (4.30-5.90) m/uL Hgb 10.6 L (13.0-17.5) gm/dL Hct 34.7 L (39.0-53.0) % MCHC 30.4 L (31.0-37.0) g/dL APTT (22.0-30.0) sec Sodium (137-145) mmol/L Potassium (3.5-5.1) mmol/L BUN (9-20) mg/dL Creatinine (0.66-1.25) mg/dL Glucose (74-99) mg/dL POC Glucose (mg/dL) 136 H 197 H (70-110) mg/dL Calcium (8.4-10.2) mg/dL 06/02/22 06/02/22 Range/Units 17:43 19:59 RBC (4.30-5.90) m/uL Hgb (13.0-17.5) gm/dL Hct (39.0-53.0) % MCHC (31.0-37.0) g/dL APTT 63.3 H (22.0-30.0) sec Sodium (137-145) mmol/L Potassium (3.5-5.1) mmol/L BUN (9-20) mg/dL Creatinine (0.66-1.25) mg/dL Glucose (74-99) mg/dL POC Glucose (mg/dL) 129 H (70-110) mg/dL Calcium (8.4-10.2) mg/dL Assessment and Plan (1) Finger wound, simple, open Current Visit: Yes Status: Acute Code(s): S61.209A - UNSP OPEN WOUND OF UNSP FINGER W/O DAMAGE TO NAIL, INIT SNOMED Code(s): 074802598 (2) Abnormal CT scan, chest Current Visit: Yes Status: Acute Code(s): R93.89 - ABNORMAL FINDINGS ON DX IMAGING OF OTH BODY STRUCTURES SNOMED Code(s): 35121955914598672 Plan: 1patient did have a wound to the right ring and left middle finger traumatic. Both wounds superficial and did not have significant surrounding swelling redness concerning for cellulitis and the x-ray did not show any bony changes at that location patient do have a history of MRSA infection 2patient presenting with increasing shortness of breath and chest pain did have CT angiogram of the chest which was abnormal concerning for bilateral lower lobe consolidation possibly fluid related clinical not behaving as pneumonia,patient did have normal procalcitonin level that will make him on a less likely. 3local wound care to the right ring finger as well as left middle finger wound with a dry Aquacel silver dressing change every 48 hour. 4patient condition remains to be stable and will continue with the current treatment of doxycycline 100 mg twice a day and monitor clinical course closely Time with Patient: Less than 30
[2022-06-03] MEDS: INSULIN ASPART (NovoLOG) 100 UNIT/ML VIAL SQ SCH ×4 (05:47→21:05)
[2022-06-03] MEDS: PIOGLITAZONE 30 MG TAB PO SCH (05:47)
[2022-06-03] MEDS: GLIMEPIRIDE 4 MG TAB PO SCH (05:47)
[2022-06-03] MEDS: TOPIRAMATE 25 MG TAB PO SCH ×2 (05:53→20:52)
[2022-06-03] MEDS: GABAPENTIN 100 MG CAP PO SCH ×4 (05:53→20:51)
[2022-06-03] MEDS: PANTOPRAZOLE 40 MG TABLET PO SCH (05:53)
[2022-06-03] MEDS: ASPIRIN 81 MG PO SCH (05:53)
[2022-06-03] MEDS: SODIUM CHLORIDE 0.9% 1,000 ML IV SCH ×2 (05:56→14:54)
[2022-06-03 06:09] LABS: Glucose,Whole Blood 147 mg/dL (70-110)
[2022-06-03] MEDS: AMIODARONE 200 MG TAB PO SCH (08:27)
[2022-06-03] MEDS: DOXYCYCLINE 100 MG CAP PO SCH ×2 (08:27→20:51)
[2022-06-03] MEDS: METOPROLOL SUCCINATE (ER) 50 MG TAB.ER.24H PO SCH (08:27)
[2022-06-03] MEDS: BACITRACIN ZINC 500 UNIT/GM OINT 28.4 GM TUBE TOPICAL SCH ×4 (08:36→21:05)
[2022-06-03 09:01] LABS: Basophils % (A) 0 %; Eosinophils # (A) 0.1 k/uL (0-0.7); Eosinophils % (A) 2 %; HCT 34.8 % (39.0-53.0); HGB 10.8 gm/dL (13.0-17.5); Hypochromasia Marked; Lymphocytes # (A) 1.7 k/uL (1.0-4.8); Lymphocytes % (A) 25 %; MCH 29.2 pg (25.0-35.0); MCHC 31.1 g/dL (31.0-37.0); MCV 94.1 fL (80.0-100.0); Mean Platelet Volume 8.2; Monocytes # (A) 0.4 k/uL (0-1.0); Monocytes % (A) 6 %; Neutrophils # (A) 4.3 k/uL (1.3-7.7); Neutrophils % (A) 64 %; Platelet Count 332 k/uL (150-450); RDW 14.1 % (11.5-15.5); WBC 6.8 k/uL (3.8-10.6)
[2022-06-03 09:09] LABS: INR 1.1 (<1.2); Partial Thromboplastin Time 55.8 sec (22.0-30.0); Prothrombin Time 11.4 sec (9.0-12.0)
[2022-06-03 09:22] LABS: Calcium 7.9 mg/dL (8.4-10.2); Magnesium 2.1 mg/dL (1.6-2.3); Potassium 5.3 mmol/L (3.5-5.1)
[2022-06-03] MEDS: IPRATROPIUM-ALBUTEROL 3 ML NEB INHALATION SCH ×3 (09:31→19:44)
[2022-06-03] MEDS ORDERED: HEPARIN SODIUM 1,000 UN/ML (10ML VL) ONE (09:50)
[2022-06-03] MEDS ORDERED: VERAPAMIL 2.5 MG/ML 2 ML AMP ONE (09:50)
[2022-06-03] MEDS ORDERED: fentaNYL (PF) 50 MCG/ML 2 ML AMP ONE (10:18)
[2022-06-03] MEDS ORDERED: SODIUM CHLORIDE 0.9% 500 ML 500 ML IV ONE (10:35)
[2022-06-03] MEDS ORDERED: fentaNYL (PF) 50 MCG/ML 2 ML AMP IV ONE (10:35)
[2022-06-03] MEDS ORDERED: MIDAZOLAM 2 MG/2 ML VIAL IV ONE (10:35)
--- NOTE | 2022-06-03 10:36 | P.PN ---
Subjective From the records This is a 67-year-old male who was recently admitted with chest pain, unstable angina with vascular cellulitis and being closely monitored with cardiology following closely. Plan is for cardiac catheterization in the a.m. Initially patient was scheduled for cardiac catheterization today although kidney functions slightly worsened and creatinine today is 1.59. Patient also more lethargic today and will adjust medications. Patient was placed back on heparin drip and will await cardiology report. Most recent EF is 30%. Patient is afebrile denies shortness of breath or palpitations. Patient denies nausea or vomiting and is tolerating diet. Patient was placed on gentle IV hydration and will follow-up with repeat labs in a.m. 06/01/2022 Patient is seen in follow-up today being followed by cardiology and was tentatively scheduled for cardiac catheterization today although kidney functions continue to be elevated and currently and kidneys with low blood pressure. Patient does have history of heart failure and recommend gentle IV hydration with follow-up labs. Blood pressure has been on the softer side and normally takes lisinopril although will hold and follow-up and will watch the labs closely. Nephrology consultation and appreciate input and recommendations. Patient continues to have retention and has been requiring straight catheterization. Patient normally takes Flomax and will continue and will also recommend indwelling Gamble catheter. Patient is continued on IV heparin and plans for possible cardiac catheterization this Monday. Continue telemetry monitoring. Encouraged oral intake and increased activity as tolerated. Patient more alert and awake today than yesterday. Patient is afebrile denies chest pain or worsening shortness of breath. No reports of nausea or vomiting and patient is tolerating diet. 06/02/2022 Subjective Patient was resting in bed with no chest pain or tachypnea or dyspnea. He was complaining of from his right ring Finger but he has small wound at the proximal interphalangeal joint with no significant surrounding cellulitis. He was on room air. Gamble catheter in a Place. Patient requesting for pain medication for his right leg, MAPS was checked on the last time he got Percocet 10 mg prescribed for him was 11/17/2021 for quantity of 12 for 3 days. 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 He has history of left BKA Distal on heparin drip and normal saline 06/03/2022 patient lying in bed comfortable complains from no chest pain and he kept on heparin drip with cardiology planned for cardiac cath [employer] also on the case for trending up creatinine and today went up 1.4 and 21.6. No oliguria. Blood pressure is borderline 98/56 however patient is asymptomatic. Patient for his right foot pain which is changed To Neurontin. Right finger infection is very minimal on the small wound. Patient remains on doxycycline Also patient is in normal sinus 50 mL/h Objective - Vital Signs Vital signs: Vital Signs Temp 97.8 F 06/03/22 08:24 Pulse 60 06/03/22 08:24 Resp 18 06/03/22 08:24 BP 126/70 06/03/22 08:24 Pulse Ox 98 06/03/22 08:24 FiO2 Intake & Output 06/02/22 06/03/22 06/03/22 18:59 06:59 18:59 Intake Total 1043.172 240 Output Total 1525 1700 Balance -481.828 -1460 Intake: Intake, IV Titration 243.172 Amount Heparin Sod,Pork in 0.45% 243.172 NaCl 25,000 unit In 0.45 % NaCl 1 250ml.bag @ 11 UNITS/KG/HR 9.955 mls/hr IV .Q24H [facility] Rx#: [id number] Oral 800 240 Output: Urine 1525 1700 Other: Voiding Method Indwelling Catheter Indwelling Catheter # Bowel Movements 1 - Exam GENERAL: The patient is alert and oriented x3, not in any acute distress. Well developed, well nourished. HEENT: Pupils are round and equally reacting to light. EOMI. No scleral icterus. No conjunctival pallor. Normocephalic, atraumatic. No pharyngeal erythema. No thyromegaly. CARDIOVASCULAR: S1 and S2 present. No murmurs, rubs, or gallops. PULMONARY: Chest is clear to auscultation, no wheezing or crackles. ABDOMEN: Soft, nontender, nondistended, normoactive bowel sounds. No palpable organomegaly. MUSCULOSKELETAL: No joint swelling or deformity. -EXTREMITIES: No cyanosis, clubbing, or pedal edema. Status post left BKA. Right small wound in the index finger with no significant surrounding cellulitis NEUROLOGICAL: Gross neurological examination did not reveal any focal deficits. SKIN: No rashes. no petechiae. - Labs CBC & Chem 7: 06/03/22 07:42 06/03/22 07:42 Labs: Abnormal Lab Results - Last 24 Hours (Table) 06/02/22 06/02/22 06/02/22 Range/Units 10:30 10:30 10:30 RBC 3.61 L (4.30-5.90) m/uL Hgb 10.6 L (13.0-17.5) gm/dL Hct 34.7 L (39.0-53.0) % MCHC 30.4 L (31.0-37.0) g/dL APTT 81.8 H (22.0-30.0) sec Sodium 133 L (137-145) mmol/L Potassium 5.5 H (3.5-5.1) mmol/L Chloride (98-107) mmol/L BUN 28 H (9-20) mg/dL Creatinine 1.34 H (0.66-1.25) mg/dL Glucose 135 H (74-99) mg/dL POC Glucose (mg/dL) (70-110) mg/dL Calcium 7.7 L (8.4-10.2) mg/dL 06/02/22 06/02/22 06/02/22 Range/Units 11:35 16:46 17:43 RBC (4.30-5.90) m/uL Hgb (13.0-17.5) gm/dL Hct (39.0-53.0) % MCHC (31.0-37.0) g/dL APTT 63.3 H (22.0-30.0) sec Sodium (137-145) mmol/L Potassium (3.5-5.1) mmol/L Chloride (98-107) mmol/L BUN (9-20) mg/dL Creatinine (0.66-1.25) mg/dL Glucose (74-99) mg/dL POC Glucose (mg/dL) 136 H 197 H (70-110) mg/dL Calcium (8.4-10.2) mg/dL 06/02/22 06/03/22 06/03/22 Range/Units 19:59 06:08 07:42 RBC (4.30-5.90) m/uL Hgb (13.0-17.5) gm/dL Hct (39.0-53.0) % MCHC (31.0-37.0) g/dL APTT (22.0-30.0) sec Sodium 136 L (137-145) mmol/L Potassium 5.3 H (3.5-5.1) mmol/L Chloride 108 H (98-107) mmol/L BUN 25 H (9-20) mg/dL Creatinine 1.60 H (0.66-1.25) mg/dL Glucose 119 H (74-99) mg/dL POC Glucose (mg/dL) 129 H 147 H (70-110) mg/dL Calcium 7.9 L (8.4-10.2) mg/dL 06/03/22 06/03/22 Range/Units 07:42 07:42 RBC 3.70 L (4.30-5.90) m/uL Hgb 10.8 L (13.0-17.5) gm/dL Hct 34.8 L (39.0-53.0) % MCHC (31.0-37.0) g/dL APTT 55.8 H (22.0-30.0) sec Sodium (137-145) mmol/L Potassium (3.5-5.1) mmol/L Chloride (98-107) mmol/L BUN (9-20) mg/dL Creatinine (0.66-1.25) mg/dL Glucose (74-99) mg/dL POC Glucose (mg/dL) (70-110) mg/dL Calcium (8.4-10.2) mg/dL Assessment and Plan Assessment: possible acute non-ST segment elevation myocardial infarction with elevated troponin Wound of the right ring finger with very minimal Cellulitis acute kidney injury most likely contrast-induced nephropathy complicated by use of JEVON inhibitor and NSAIDs Cardiomyopathy with ejection fraction 30% Mediastinal and bronchial lymphadenopathy emphysematous changes Continued ongoing nicotine dependence chronic Atrial fibrillation, on Coumadin in the office, currently on heparin drip History of asthma History of CVA/TIA Diabetes mellitus, type II, uncontrolled with hyper and hypoglycemia Gastroesophageal reflux disease Hyperlipidemia Hypertension History of PEs and DVTs Plan: Continue with aspirin 81 mg and heparin drip 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 KATHLEEN Quevedo. Labs and medication were reviewed.. Continue same treatment. Continue with symptomatic treatment. Resume home medication. Monitor labs and vitals. DVT a nd GI prophylaxis. Further recommendations as per clinical course of the patient DVT prophylaxis: heparin GI Prophylaxis: Ppi PT/OT: Pending Prognosis is guarded
[2022-06-03] MEDS ORDERED: LIDOCAINE 1% INJ 10MG/ML (5 ML VIAL-PF) SQ ONE (10:38)
[2022-06-03] MEDS ORDERED: HEPARIN SODIUM 1,000 UN/ML (10ML VL) IV ONE (10:42)
[2022-06-03] MEDS ORDERED: IOPAMIDOL-370 100ML BTL INJ ONE (10:48)
--- NOTE | 2022-06-03 10:55 | P.CARDCATH ---
Description of Procedure: PROCEDURES PERFORMED: Left heart catheterization, bilateral coronary angiography INDICATION: Non-STEMI, cardiomyopathy CONSENT:I have discussed the risks, benefits and alternative therapies for the above-mentioned procedure and for both sedation/analgesia as well as necessary blood product administration, if indicated, as they pertain to this patient. The patient has indicated understanding and acceptance of the risks and procedures discussed. PROCEDURE: After the risks, benefits and alternatives of the above mentioned procedure explained in detail with the patient, informed consent was obtained. Patient was taken to the catheterization lab and prepped and draped in usual fashion. 1% lidocaine was used to anesthetize the right radial artery. A 6- Persian sheath was placed in the right radial artery using modified Seldinger technique. Left coronary angiography was performed with a 5-Persian JL 3.5 catheter and right coronary angiography was performed with a 5-Persian JR5 catheter in various views. A 5-Persian FR5 catheter was inserted into the left ventricle and pressure measurements were obtained. The right radial sheath was removed and a TR band was placed with hemostasis achieved. The patient tolerated the procedure well. Patient was transported back to the post catheterization holding area in stable condition. Conscious Sedation: Patient was monitored under the direct supervision of vision of myself for conscious sedation using Versed and fentanyl for a total duration of 10 minutes HEMODYNAMICS: Aorta: 93/51 LV: 100/5, LVEDP 18 SELECTIVE CORONARY ARTERIOGRAPHY: LEFT MAIN: The left main is a large caliber vessel which bifurcates into the LAD and circumflex. There is no significant stenosis. LEFT ANTERIOR DESCENDING CORONARY ARTERY: LAD is a large caliber vessel which wraps around to the apex. There is noted to distal LAD 20-30% stenosis and otherwise mild luminal irregularities. LEFT CIRCUMFLEX CORONARY ARTERY: Left circumflex is a moderate caliber vessel without significant stenosis. RIGHT CORONARY ARTERY: The right coronary artery is a large caliber vessel which gives off a PDA and PLV branch and is the dominant vessel. There are mild luminal irregularities 10-20%. There is TAMARA 2 flow noted which may be consistent with microvascular disease. FINAL IMPRESSION: 1. Mild CAD including 10-20% RCA and 20th 30% LAD stenosis 2. TAMARA 2-3 flow which may be consistent with microvascular dysfunction 3. Normal left sided filling pressures PLAN: 1. Aggressive risk factor modification per most recent ACC/AHA guidelines. 2. Trial of antianginals given TAMARA 2-3 flow which may be seen with microvascular dysfunction.
[2022-06-03] MEDS ORDERED: SODIUM ZIRCONIUM CYCLOSILICATE 10 GM PACKET PO ONE (10:56)
--- NOTE | 2022-06-03 10:57 | P.PN ---
Subjective Patient is seen in follow-up for acute kidney injury. Creatinine 1.6 today. He is going for a cardiac cath. Denies chest pain at this time. Has a Gamble catheter. Nonoliguric. No vomiting or diarrhea. Vital signs are stable. General: Awake. No acute distress. HEENT: Head exam is unremarkable. LUNGS: Breath sounds decreased. HEART: Rate and Rhythm are regular. ABDOMEN: Soft, no distention. EXTREMITITES: Left AKA. Objective - Vital Signs Vital signs: Vital Signs Temp 97.8 F 06/03/22 08:24 Pulse 60 06/03/22 08:24 Resp 18 06/03/22 08:24 BP 126/70 06/03/22 08:24 Pulse Ox 98 06/03/22 08:24 FiO2 Intake & Output 06/02/22 06/03/22 06/03/22 18:59 06:59 18:59 Intake Total 1043.172 240 200 Output Total 1525 1700 Balance -481.828 -1460 200 Intake: IV 200 Intake, IV Titration 243.172 Amount Heparin Sod,Pork in 0.45% 243.172 NaCl 25,000 unit In 0.45 % NaCl 1 250ml.bag @ 11 UNITS/KG/HR 9.955 mls/hr IV .Q24H [facility] Rx#: [id number] Oral 800 240 Output: Urine 1525 1700 Other: Voiding Method Indwelling Catheter Indwelling Catheter # Bowel Movements 1 - Labs CBC & Chem 7: 06/03/22 07:42 06/03/22 07:42 Labs: Abnormal Lab Results - Last 24 Hours (Table) 06/02/22 06/02/22 06/02/22 Range/Units 10:30 10:30 10:30 RBC 3.61 L (4.30-5.90) m/uL Hgb 10.6 L (13.0-17.5) gm/dL Hct 34.7 L (39.0-53.0) % MCHC 30.4 L (31.0-37.0) g/dL APTT 81.8 H (22.0-30.0) sec Sodium 133 L (137-145) mmol/L Potassium 5.5 H (3.5-5.1) mmol/L Chloride (98-107) mmol/L BUN 28 H (9-20) mg/dL Creatinine 1.34 H (0.66-1.25) mg/dL Glucose 135 H (74-99) mg/dL POC Glucose (mg/dL) (70-110) mg/dL Calcium 7.7 L (8.4-10.2) mg/dL 06/02/22 06/02/22 06/02/22 Range/Units 11:35 16:46 17:43 RBC (4.30-5.90) m/uL Hgb (13.0-17.5) gm/dL Hct (39.0-53.0) % MCHC (31.0-37.0) g/dL APTT 63.3 H (22.0-30.0) sec Sodium (137-145) mmol/L Potassium (3.5-5.1) mmol/L Chloride (98-107) mmol/L BUN (9-20) mg/dL Creatinine (0.66-1.25) mg/dL Glucose (74-99) mg/dL POC Glucose (mg/dL) 136 H 197 H (70-110) mg/dL Calcium (8.4-10.2) mg/dL 06/02/22 06/03/22 06/03/22 Range/Units 19:59 06:08 07:42 RBC (4.30-5.90) m/uL Hgb (13.0-17.5) gm/dL Hct (39.0-53.0) % MCHC (31.0-37.0) g/dL APTT (22.0-30.0) sec Sodium 136 L (137-145) mmol/L Potassium 5.3 H (3.5-5.1) mmol/L Chloride 108 H (98-107) mmol/L BUN 25 H (9-20) mg/dL Creatinine 1.60 H (0.66-1.25) mg/dL Glucose 119 H (74-99) mg/dL POC Glucose (mg/dL) 129 H 147 H (70-110) mg/dL Calcium 7.9 L (8.4-10.2) mg/dL 06/03/22 06/03/22 Range/Units 07:42 07:42 RBC 3.70 L (4.30-5.90) m/uL Hgb 10.8 L (13.0-17.5) gm/dL Hct 34.8 L (39.0-53.0) % MCHC (31.0-37.0) g/dL APTT 55.8 H (22.0-30.0) sec Sodium (137-145) mmol/L Potassium (3.5-5.1) mmol/L Chloride (98-107) mmol/L BUN (9-20) mg/dL Creatinine (0.66-1.25) mg/dL Glucose (74-99) mg/dL POC Glucose (mg/dL) (70-110) mg/dL Calcium (8.4-10.2) mg/dL Assessment and Plan Plan: Assessment: 1. Acute kidney injury secondary to ATN secondary to contrast-induced acute kidney injury and diuresis. Further worsened with the use of JEVON inhibitor and nonsteroidals. Patient received IV contrast on 05/28/2022. Creatinine 1.6 today. UA benign. No hydronephrosis noted on renal ultrasound. 2. Cardiomyopathy with ejection fraction of 30%. ACS being ruled out. Cardiac cath today. Cardiology following. 3. Diabetes mellitus. 4. Status post left AKA. 5. Urinary retention status post Gamble catheter placement. On Flomax. 6. Mild hyperkalemia secondary to acute kidney injury. Plan: Increase rate of normal saline to 75 mL an hour. Diuretics and JEVON inhibitor held. Nonsteroidals discontinued. Avoid nephrotoxins. Discussed with patient the risk of worsening renal failure, potentially requiring renal replacement therapy, post-IV contrast exposure. He understands. Will maintain IV hydration pre-and post-IV contrast exposure to prevent contrast-induced acute kidney injury. Continue to monitor renal function and urine output. Lokelma 10 g once today.
--- NOTE | 2022-06-03 10:58 | P.PN ---
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 Peripheral artery disease s/p Bilateral stents in the iliac artery. Patient follows with Dr. Heaton in the office, last followed up in 2019. Consult to see the patient for chest pain. Patient came in initially complaining of shortness of breath and chest pain. Patient is on warfarin and is noncompliant with his medications. INR was 1. His troponins were mildly elevated at 0.046, 0.044, 0.045. Patient's BNP was 12,700 he is on IV Lasix 40 mg every 8hr. Patient's d-dimer was elevated CTA of the chest was negative for pulmonary embolism, did show pneumonia with right pleural effusion, emphysema, and pulmonary fibrosis. He underwent an ultrasound of his right lower leg to rule out DVT. He underwent an echocardiogram in November 2021 which showed a normal LV function with an ejection fraction 55-60%. 06/01/2022 Patient seen and examined at bedside, Denies shortness of breath or chest pain this morning. His vital signs are stable, BP on the lower end 103/62, HR 62. Continues to be on IV heparin drip. Lasix has been held secondary to ANDERSON. Echo revealed EF reduced to 30%, global hypokinesis. Serum creatinine 1.43, yesterday 1.59 06/02 Patient seen and examined. Patient still admits to some vague chest tightness however no obvious chest pain or pressure and feels similar to before. Creatinine mildly improved to 1.3 today. Possible heart catheterization tomorrow. 06/03 Patient seen and examined. Patient still having intermittent vague episodes of chest tightness. Creatinine mildly increased. He underwent heart catheterization today which showed relatively normal coronary arteries however TAMARA 2-3 flow which can be seen with microvascular dysfunction. LVEDP was noted to be 18. GENERAL: In no acute distress. NECK: Supple without JVD LUNGS: Breath sounds clear to auscultation bilaterally. Respiration equal and unlabored. No wheezes, rales or rhonchi. HEART: Regular rate and rhythm without murmurs, rubs or gallops. S1 and S2 heard. EXTREMITIES: Normal range of motion, no edema. No clubbing or cyanosis. Peripheral pulses intact. ASSESSMENT Elevated troponin, rule out ACS Cardiomyopathy EF 30%, ischemic vs non-ischemic Acute kidney injury likely related to IV diuresis Chest pain Shortness of breath Hypertension History of paroxysmal atrial fibrillation on coumadin outpatient Non-compliant with medication Chronic nicotine dependence Dyslipidemia History of DVT History of left above knee amputation PLAN Left heart catheterization shows relatively normal coronary arteries however does have TAMARA 2-3 flow. Blood pressures have been borderline. We will continue Toprol for HF regimen and we will also trial low dose Imdur. Ok for DC today. Objective - Vital Signs Vital signs: Vital Signs Temp 97.8 F 06/03/22 08:24 Pulse 60 06/03/22 08:24 Resp 18 06/03/22 08:24 BP 126/70 06/03/22 08:24 Pulse Ox 98 06/03/22 08:24 FiO2 Intake & Output 06/02/22 06/03/22 06/03/22 18:59 06:59 18:59 Intake Total 1043.172 240 200 Output Total 1525 1700 Balance -481.828 -1460 200 Intake: IV 200 Intake, IV Titration 243.172 Amount Heparin Sod,Pork in 0.45% 243.172 NaCl 25,000 unit In 0.45 % NaCl 1 250ml.bag @ 11 UNITS/KG/HR 9.955 mls/hr IV .Q24H [facility] Rx#: [id number] Oral 800 240 Output: Urine 1525 1700 Other: Voiding Method Indwelling Catheter Indwelling Catheter # Bowel Movements 1 - Labs CBC & Chem 7: 06/03/22 07:42 06/03/22 07:42 Labs: Abnormal Lab Results - Last 24 Hours (Table) 06/02/22 06/02/22 06/02/22 Range/Units 10:30 10:30 10:30 RBC 3.61 L (4.30-5.90) m/uL Hgb 10.6 L (13.0-17.5) gm/dL Hct 34.7 L (39.0-53.0) % MCHC 30.4 L (31.0-37.0) g/dL APTT 81.8 H (22.0-30.0) sec Sodium 133 L (137-145) mmol/L Potassium 5.5 H (3.5-5.1) mmol/L Chloride (98-107) mmol/L BUN 28 H (9-20) mg/dL Creatinine 1.34 H (0.66-1.25) mg/dL Glucose 135 H (74-99) mg/dL POC Glucose (mg/dL) (70-110) mg/dL Calcium 7.7 L (8.4-10.2) mg/dL 06/02/22 06/02/22 06/02/22 Range/Units 11:35 16:46 17:43 RBC (4.30-5.90) m/uL Hgb (13.0-17.5) gm/dL Hct (39.0-53.0) % MCHC (31.0-37.0) g/dL APTT 63.3 H (22.0-30.0) sec Sodium (137-145) mmol/L Potassium (3.5-5.1) mmol/L Chloride (98-107) mmol/L BUN (9-20) mg/dL Creatinine (0.66-1.25) mg/dL Glucose (74-99) mg/dL POC Glucose (mg/dL) 136 H 197 H (70-110) mg/dL Calcium (8.4-10.2) mg/dL 06/02/22 06/03/22 06/03/22 Range/Units 19:59 06:08 07:42 RBC (4.30-5.90) m/uL Hgb (13.0-17.5) gm/dL Hct (39.0-53.0) % MCHC (31.0-37.0) g/dL APTT (22.0-30.0) sec Sodium 136 L (137-145) mmol/L Potassium 5.3 H (3.5-5.1) mmol/L Chloride 108 H (98-107) mmol/L BUN 25 H (9-20) mg/dL Creatinine 1.60 H (0.66-1.25) mg/dL Glucose 119 H (74-99) mg/dL POC Glucose (mg/dL) 129 H 147 H (70-110) mg/dL Calcium 7.9 L (8.4-10.2) mg/dL 06/03/22 06/03/22 Range/Units 07:42 07:42 RBC 3.70 L (4.30-5.90) m/uL Hgb 10.8 L (13.0-17.5) gm/dL Hct 34.8 L (39.0-53.0) % MCHC (31.0-37.0) g/dL APTT 55.8 H (22.0-30.0) sec Sodium (137-145) mmol/L Potassium (3.5-5.1) mmol/L Chloride (98-107) mmol/L BUN (9-20) mg/dL Creatinine (0.66-1.25) mg/dL Glucose (74-99) mg/dL POC Glucose (mg/dL) (70-110) mg/dL Calcium (8.4-10.2) mg/dL
[2022-06-03 11:59] LABS: Glucose,Whole Blood 105 mg/dL (70-110)
[2022-06-03] MEDS ORDERED: RX INFO: IV CONTRAST WAS GIVEN 1 EACH MISC MISCELLANE PRN (12:09)
[2022-06-03] MEDS: ISOSORBIDE MONONITRATE ER 15 MG TAB PO SCH (13:01)
[2022-06-03 16:32] LABS: Glucose,Whole Blood 185 mg/dL (70-110)
[2022-06-03] MEDS: TAMSULOSIN 0.4 MG CAP.ER.24H PO SCH (18:01)
[2022-06-03 20:15] LABS: Glucose,Whole Blood 151 mg/dL (70-110)
[2022-06-03] MEDS: LORATADINE 10 MG TAB PO SCH (20:51)
[2022-06-03] MEDS: HYDROcodone/APAP 5-325MG 1 EACH TAB PO PRN (20:52)
[2022-06-03] MEDS: ATORVASTATIN 80 MG TAB PO SCH (20:52)
--- NOTE | 2022-06-04 00:01 | P.PN ---
Subjective Progress Note Date: 06/03/22 Principal diagnosis: Bilateral hand and finger wound Patient is a 67-year-old male with multiple comorbidities including diabetic wound infection requiring [id number] amputation, presenting to the hospital with chest pain in this patient who did have traumatic wound to the left ring and right middle finger On today's evaluation that is 06/03/2022 patient remains to be afebrile, the patient is breathing comfortably currently on room air no chest pain shortness o f breath or cough no abdominal pain no new worsening pain to the right ring and left middle finger wound area no drainage Objective - Vital Signs Vital signs: Vital Signs Temp 97.6 F 06/03/22 12:58 Pulse 59 L 06/03/22 12:58 Resp 18 06/03/22 12:58 BP 127/70 06/03/22 12:58 Pulse Ox 98 06/03/22 13:04 FiO2 Intake & Output 06/02/22 06/03/22 06/03/22 18:59 06:59 18:59 Intake Total 1043.172 240 200 Output Total 1525 1700 1000 Balance -481.828 -1460 -800 Intake: IV 200 Intake, IV Titration 243.172 Amount Heparin Sod,Pork in 0.45% 243.172 NaCl 25,000 unit In 0.45 % NaCl 1 250ml.bag @ 11 UNITS/KG/HR 9.955 mls/hr IV .Q24H [facility] Rx#: [id number] Oral 800 240 Output: Urine 1525 1700 1000 Other: Voiding Method Indwelling Catheter Indwelling Catheter # Bowel Movements 1 - Exam GENERAL DESCRIPTION: An elderly male lying in bed in no distress RESPIRATORY SYSTEM: Unlabored breathing , decreased breath sounds at bases HEART: S1 S2 regular rate and rhythm , ABDOMEN: Soft , no tenderness EXTREMITIES: Right index finger wound with no slough tissue or surrounding redness - Labs CBC & Chem 7: 06/03/22 07:42 06/03/22 07:42 Labs: Abnormal Lab Results - Last 24 Hours (Table) 06/02/22 06/02/22 06/02/22 Range/Units 16:46 17:43 19:59 RBC (4.30-5.90) m/uL Hgb (13.0-17.5) gm/dL Hct (39.0-53.0) % APTT 63.3 H (22.0-30.0) sec Sodium (137-145) mmol/L Potassium (3.5-5.1) mmol/L Chloride (98-107) mmol/L BUN (9-20) mg/dL Creatinine (0.66-1.25) mg/dL Glucose (74-99) mg/dL POC Glucose (mg/dL) 197 H 129 H (70-110) mg/dL Calcium (8.4-10.2) mg/dL 06/03/22 06/03/22 06/03/22 Range/Units 06:08 07:42 07:42 RBC 3.70 L (4.30-5.90) m/uL Hgb 10.8 L (13.0-17.5) gm/dL Hct 34.8 L (39.0-53.0) % APTT (22.0-30.0) sec Sodium 136 L (137-145) mmol/L Potassium 5.3 H (3.5-5.1) mmol/L Chloride 108 H (98-107) mmol/L BUN 25 H (9-20) mg/dL Creatinine 1.60 H (0.66-1.25) mg/dL Glucose 119 H (74-99) mg/dL POC Glucose (mg/dL) 147 H (70-110) mg/dL Calcium 7.9 L (8.4-10.2) mg/dL 06/03/22 Range/Units 07:42 RBC (4.30-5.90) m/uL Hgb (13.0-17.5) gm/dL Hct (39.0-53.0) % APTT 55.8 H (22.0-30.0) sec Sodium (137-145) mmol/L Potassium (3.5-5.1) mmol/L Chloride (98-107) mmol/L BUN (9-20) mg/dL Creatinine (0.66-1.25) mg/dL Glucose (74-99) mg/dL POC Glucose (mg/dL) (70-110) mg/dL Calcium (8.4-10.2) mg/dL Assessment and Plan (1) Finger wound, simple, open Current Visit: Yes Status: Acute Code(s): S61.209A - UNSP OPEN WOUND OF UNSP FINGER W/O DAMAGE TO NAIL, INIT SNOMED Code(s): 232935923 (2) Abnormal CT scan, chest Current Visit: Yes Status: Acute Code(s): R93.89 - ABNORMAL FINDINGS ON DX IMAGING OF OTH BODY STRUCTURES SNOMED Code(s): 77446043039529964 Plan: 1patient did have a wound to the right ring and left middle finger traumatic. Both wounds superficial and did not have significant surrounding swelling redness concerning for cellulitis and the x-ray did not show any bony changes at that location patient do have a history of MRSA infection 2patient presenting with increasing shortness of breath and chest pain did have CT angiogram of the chest which was abnormal concerning for bilateral lower lobe consolidation possibly fluid related clinical not behaving as pneumonia,patient did have normal procalcitonin level that will make him on a less likely. 3local wound care to the right ring finger as well as left middle finger wound with a dry Aquacel silver dressing change every 48 hour. 4Patient right ring and left middle finger wounds are healing well to continue local wound care as ordered along with oral doxycycline and monitor clinical course closely Time with Patient: Less than 30
[2022-06-04] MEDS: HYDROcodone/APAP 5-325MG 1 EACH TAB PO PRN (04:13)
[2022-06-04 05:57] LABS: Glucose,Whole Blood 112 mg/dL (70-110)
[2022-06-04] MEDS: INSULIN ASPART (NovoLOG) 100 UNIT/ML VIAL SQ SCH ×4 (06:59→21:04)
[2022-06-04 08:34] LABS: Basophils % (A) 1 %; Eosinophils # (A) 0.1 k/uL (0-0.7); Eosinophils % (A) 2 %; HCT 34.5 % (39.0-53.0); HGB 10.3 gm/dL (13.0-17.5); Hypochromasia Marked; Lymphocytes # (A) 1.7 k/uL (1.0-4.8); Lymphocytes % (A) 28 %; MCH 28.5 pg (25.0-35.0); MCV 95.2 fL (80.0-100.0); Mean Platelet Volume 8.6; Monocytes # (A) 0.4 k/uL (0-1.0); Monocytes % (A) 6 %; Neutrophils # (A) 3.8 k/uL (1.3-7.7); Neutrophils % (A) 62 %; Platelet Count 290 k/uL (150-450); RBC 3.62 m/uL (4.30-5.90); RDW 14.4 % (11.5-15.5); WBC 6.2 k/uL (3.8-10.6)
[2022-06-04 08:43] LABS: INR 1.1 (<1.2); Prothrombin Time 11.8 sec (9.0-12.0)
--- NOTE | 2022-06-04 08:43 | P.PN ---
Subjective Progress Note Date: 06/04/22 Principal diagnosis: 67-year-old male is seen with acute kidney injury secondary to combination of contrast use of Ruperto and nonsteroidals, and additionally outlet obstruction. Further he had a heart catheterization yesterday. No significant coronary artery disease. He is continuing to make urine has a Gamble catheter. 24 hour urine documented at 20 75 mL labs are pending Complains of aches and pains all over denies any shortness of breath abdominal pain. He is known with diabetes mellitus, COPD, atrial fibrillation, DVT, Isabell filter left AKA Objective - Vital Signs Vital signs: Vital Signs Temp 98.1 F 06/04/22 08:00 Pulse 58 L 06/04/22 08:00 Resp 16 06/04/22 08:00 BP 109/59 06/04/22 08:00 Pulse Ox 97 06/04/22 08:00 FiO2 Intake & Output 06/03/22 06/04/22 06/04/22 18:59 06:59 18:59 Intake Total 200 360 Output Total 1000 1075 Balance -800 -1075 360 Intake: IV 200 Oral 360 Output: Urine 1000 1075 Other: Voiding Method Indwelling Catheter Indwelling Catheter On examination awake alert oriented comfortable HEENT exam no JVP Lungs are clear Heart sounds unremarkable for any murmur rub gallop Abdomen soft nontender Extremities arms no edema. Has an AKA left side. Logically awake alert oriented - Labs CBC & Chem 7: 06/04/22 07:42 06/03/22 07:42 Labs: Abnormal Lab Results - Last 24 Hours (Table) 06/03/22 06/03/22 06/03/22 Range/Units 07:42 07:42 07:42 RBC 3.70 L (4.30-5.90) m/uL Hgb 10.8 L (13.0-17.5) gm/dL Hct 34.8 L (39.0-53.0) % MCHC (31.0-37.0) g/dL APTT 55.8 H (22.0-30.0) sec Sodium 136 L (137-145) mmol/L Potassium 5.3 H (3.5-5.1) mmol/L Chloride 108 H (98-107) mmol/L BUN 25 H (9-20) mg/dL Creatinine 1.60 H (0.66-1.25) mg/dL Glucose 119 H (74-99) mg/dL POC Glucose (mg/dL) (70-110) mg/dL Calcium 7.9 L (8.4-10.2) mg/dL 06/03/22 06/03/22 06/04/22 Range/Units 16:29 20:13 05:55 RBC (4.30-5.90) m/uL Hgb (13.0-17.5) gm/dL Hct (39.0-53.0) % MCHC (31.0-37.0) g/dL APTT (22.0-30.0) sec Sodium (137-145) mmol/L Potassium (3.5-5.1) mmol/L Chloride (98-107) mmol/L BUN (9-20) mg/dL Creatinine (0.66-1.25) mg/dL Glucose (74-99) mg/dL POC Glucose (mg/dL) 185 H 151 H 112 H (70-110) mg/dL Calcium (8.4-10.2) mg/dL 06/04/22 Range/Units 07:42 RBC 3.62 L (4.30-5.90) m/uL Hgb 10.3 L (13.0-17.5) gm/dL Hct 34.5 L (39.0-53.0) % MCHC 30.0 L (31.0-37.0) g/dL APTT (22.0-30.0) sec Sodium (137-145) mmol/L Potassium (3.5-5.1) mmol/L Chloride (98-107) mmol/L BUN (9-20) mg/dL Creatinine (0.66-1.25) mg/dL Glucose (74-99) mg/dL POC Glucose (mg/dL) (70-110) mg/dL Calcium (8.4-10.2) mg/dL Assessment and Plan Assessment: Assessment: 1. Acute kidney injury secondary to ATN secondary to contrast-induced acute kidney injury and diuresis. Further worsened with the use of RUPERTO inhibitor and nonsteroidals. Patient received IV contrast on 05/28/2022. Creatinine 1.6 yesterday. UA benign. No hydronephrosis noted on renal ultrasound. Has had cardiac cath yesterday. Labs are pending today urine output is maintained 2. Cardiomyopathy with ejection fraction of 30%. ACS being ruled out. . Cardiology following. Had cardiac catheterization yesterday 06/03/2022 with no significant coronary artery disease noted 3. Diabetes mellitus. 4. Status post left AKA. 5. Urinary retention status post Gamble catheter placement. On Flomax. 6. Mild hyperkalemia secondary to acute kidney injury. Plan: Continue normal saline to 75 mL an hour. Diuretics and RUPERTO inhibitor held. Nonsteroidals discontinued. Avoid nephrotoxins. Pending labs today
[2022-06-04 09:00] LABS: Calcium 7.9 mg/dL (8.4-10.2); Magnesium 1.8 mg/dL (1.6-2.3); Potassium 5.2 mmol/L (3.5-5.1)
[2022-06-04] MEDS: IPRATROPIUM-ALBUTEROL 3 ML NEB INHALATION SCH ×3 (09:01→20:13)
[2022-06-04] MEDS: PANTOPRAZOLE 40 MG TABLET PO SCH (10:15)
[2022-06-04] MEDS: GABAPENTIN 100 MG CAP PO SCH ×3 (10:15→20:17)
[2022-06-04] MEDS: METOPROLOL SUCCINATE (ER) 50 MG TAB.ER.24H PO SCH (10:15)
[2022-06-04] MEDS: ASPIRIN 81 MG PO SCH (10:15)
[2022-06-04] MEDS: TOPIRAMATE 25 MG TAB PO SCH ×2 (10:15→20:16)
[2022-06-04] MEDS: SODIUM CHLORIDE 0.9% 1,000 ML IV SCH ×2 (10:16→21:04)
[2022-06-04] MEDS: BACITRACIN ZINC 500 UNIT/GM OINT 28.4 GM TUBE TOPICAL SCH ×4 (10:16→21:04)
[2022-06-04] MEDS: AMIODARONE 200 MG TAB PO SCH (10:16)
[2022-06-04] MEDS: DOXYCYCLINE 100 MG CAP PO SCH ×2 (10:16→21:02)
[2022-06-04] MEDS: GLIMEPIRIDE 4 MG TAB PO SCH (10:17)
[2022-06-04] MEDS: PIOGLITAZONE 30 MG TAB PO SCH (10:17)
[2022-06-04] MEDS: ISOSORBIDE MONONITRATE ER 15 MG TAB PO SCH (10:17)
--- NOTE | 2022-06-04 10:23 | P.PN ---
Subjective From the records This is a 67-year-old male who was recently admitted with chest pain, unstable angina with vascular cellulitis and being closely monitored with cardiology following closely. Plan is for cardiac catheterization in the a.m. Initially patient was scheduled for cardiac catheterization today although kidney functions slightly worsened and creatinine today is 1.59. Patient also more lethargic today and will adjust medications. Patient was placed back on heparin drip and will await cardiology report. Most recent EF is 30%. Patient is afebrile denies shortness of breath or palpitations. Patient denies nausea or vomiting and is tolerating diet. Patient was placed on gentle IV hydration and will follow-up with repeat labs in a.m. 06/01/2022 Patient is seen in follow-up today being followed by cardiology and was tentatively scheduled for cardiac catheterization today although kidney functions continue to be elevated and currently and kidneys with low blood pressure. Patient does have history of heart failure and recommend gentle IV hydration with follow-up labs. Blood pressure has been on the softer side and normally takes lisinopril although will hold and follow-up and will watch the labs closely. Nephrology consultation and appreciate input and recommendations. Patient continues to have retention and has been requiring straight catheterization. Patient normally takes Flomax and will continue and will also recommend indwelling Gamble catheter. Patient is continued on IV heparin and plans for possible cardiac catheterization this Monday. Continue telemetry monitoring. Encouraged oral intake and increased activity as tolerated. Patient more alert and awake today than yesterday. Patient is afebrile denies chest pain or worsening shortness of breath. No reports of nausea or vomiting and patient is tolerating diet. 06/02/2022 Subjective Patient was resting in bed with no chest pain or tachypnea or dyspnea. He was complaining of from his right ring Finger but he has small wound at the proximal interphalangeal joint with no significant surrounding cellulitis. He was on room air. Gamble catheter in a Place. Patient requesting for pain medication for his right leg, MAPS was checked on the last time he got Percocet 10 mg prescribed for him was 11/17/2021 for quantity of 12 for 3 days. We going to start gabapentin Patient will plan to undergo cardiac cath on Monday because of his worsening kidney function, tool coordinator and program management intern on the case. He has history of left BKA Distal on heparin drip and normal saline 06/03/2022 patient lying in bed comfortable complains from no chest pain and he kept on heparin drip with cardiology planned for cardiac cath Diffusion Operator also on the case for trending up creatinine and today went up 1.4 and 21.6. No oliguria. Blood pressure is borderline 98/56 however patient is asymptomatic. Patient for his right foot pain which is changed To Neurontin. Right finger infection is very minimal on the small wound. Patient remains on doxycycline Also patient is in normal sinus 50 mL/h Objective - Vital Signs Vital signs: Vital Signs Temp 98.1 F 06/04/22 08:00 Pulse 58 L 06/04/22 08:00 Resp 16 06/04/22 08:00 BP 109/59 06/04/22 08:00 Pulse Ox 97 06/04/22 08:00 FiO2 Intake & Output 06/03/22 06/04/22 06/04/22 18:59 06:59 18:59 Intake Total 200 360 Output Total 1000 1075 Balance -800 -1075 360 Intake: IV 200 Oral 360 Output: Urine 1000 1075 Other: Voiding Method Indwelling Catheter Indwelling Catheter - Exam GENERAL: The patient is alert and oriented x3, not in any acute distress. Well developed, well nourished. HEENT: Pupils are round and equally reacting to light. EOMI. No scleral icterus. No conjunctival pallor. Normocephalic, atraumatic. No pharyngeal erythema. No thyromegaly. CARDIOVASCULAR: S1 and S2 present. No murmurs, rubs, or gallops. PULMONARY: Chest is clear to auscultation, no wheezing or crackles. ABDOMEN: Soft, nontender, nondistended, normoactive bowel sounds. No palpable organomegaly. MUSCULOSKELETAL: No joint swelling or deformity. -EXTREMITIES: No cyanosis, clubbing, or pedal edema. Status post left BKA. R ight small wound in the index finger with no significant surrounding cellulitis NEUROLOGICAL: Gross neurological examination did not reveal any focal deficits. SKIN: No rashes. no petechiae. - Labs CBC & Chem 7: 06/04/22 07:42 06/04/22 07:42 Labs: Abnormal Lab Results - Last 24 Hours (Table) 06/03/22 06/03/22 06/04/22 Range/Units 16:29 20:13 05:55 RBC (4.30-5.90) m/uL Hgb (13.0-17.5) gm/dL Hct (39.0-53.0) % MCHC (31.0-37.0) g/dL Sodium (137-145) mmol/L Potassium (3.5-5.1) mmol/L Chloride (98-107) mmol/L Carbon Dioxide (22-30) mmol/L BUN (9-20) mg/dL Creatinine (0.66-1.25) mg/dL Glucose (74-99) mg/dL POC Glucose (mg/dL) 185 H 151 H 112 H (70-110) mg/dL Calcium (8.4-10.2) mg/dL 06/04/22 06/04/22 Range/Units 07:42 07:42 RBC 3.62 L (4.30-5.90) m/uL Hgb 10.3 L (13.0-17.5) gm/dL Hct 34.5 L (39.0-53.0) % MCHC 30.0 L (31.0-37.0) g/dL Sodium 136 L (137-145) mmol/L Potassium 5.2 H (3.5-5.1) mmol/L Chloride 109 H (98-107) mmol/L Carbon Dioxide 19 L (22-30) mmol/L BUN 23 H (9-20) mg/dL Creatinine 1.28 H (0.66-1.25) mg/dL Glucose 172 H (74-99) mg/dL POC Glucose (mg/dL) (70-110) mg/dL Calcium 7.9 L (8.4-10.2) mg/dL Assessment and Plan Assessment: possible acute non-ST segment elevation myocardial infarction with elevated troponin however patient had normal coronary arteries on cardiac cath Wound of the right ring finger with very minimal Cellulitis acute kidney injury most likely contrast-induced nephropathy complicated by use of JEVON inhibitor and NSAIDs Cardiomyopathy with ejection fraction 30% Mediastinal and bronchial lymphadenopathy emphysematous changes Continued ongoing nicotine dependence chronic Atrial fibrillation, on Coumadin in the office, currently on heparin drip History of asthma History of CVA/TIA Diabetes mellitus, type II, uncontrolled with hyper and hypoglycemia Gastroesophageal reflux disease Hyperlipidemia Hypertension History of PEs and DVTs Plan: Continue with aspirin 81 mg and heparin drip Medical Lab Specialist on the caseobjective for discharge On metoprolol Continue gentle hydration with monitored kidney function, tool coordinator on the case continue with oral doxycycline He pulled and metformin, lisinopril. KATHLEEN Quevedo. Labs and medication were reviewed.. Continue same treatment. Continue with symptomatic treatment. Resume home medication. Monitor labs and vitals. DVT and GI prophylaxis. Further recommendations as per clinical course of the patient DVT prophylaxis: heparin GI Prophylaxis: Ppi PT/OT: Pending Prognosis is guarded
[2022-06-04 12:01] LABS: Glucose,Whole Blood 209 mg/dL (70-110)
--- NOTE | 2022-06-04 13:42 | P.PN ---
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 Peripheral artery disease s/p Bilateral stents in the iliac artery. Patient follows with Dr. Heaton in the office, last followed up in 2019. Consult to see the patient for chest pain. Patient came in initially complaining of shortness of breath and chest pain. Patient is on warfarin and is noncompliant with his medications. INR was 1. His troponins were mildly elevated at 0.046, 0.044, 0.045. Patient's BNP was 12,700 he is on IV Lasix 40 mg every 8hr. Patient's d-dimer was elevated CTA of the chest was negative for pulmonary embolism, did show pneumonia with right pleural effusion, emphysema, and pulmonary fibrosis. He underwent an ultrasound of his right lower leg to rule out DVT. He underwent an echocardiogram in November 2021 which showed a normal LV function with an ejection fraction 55-60%. 06/01/2022 Patient seen and examined at bedside, Denies shortness of breath or chest pain this morning. His vital signs are stable, BP on the lower end 103/62, HR 62. Continues to be on IV heparin drip. Lasix has been held secondary to ANDERSON. Echo revealed EF reduced to 30%, global hypokinesis. Serum creatinine 1.43, yesterday 1.59 06/02 Patient seen and examined. Patient still admits to some vague chest tightness however no obvious chest pain or pressure and feels similar to before. Creatinine mildly improved to 1.3 today. Possible heart catheterization tomorrow. 06/03 Patient seen and examined. Patient still having intermittent vague episodes of chest tightness. Creatinine mildly increased. He underwent heart catheterization today which showed relatively normal coronary arteries however TAMARA 2-3 flow which can be seen with microvascular dysfunction. LVEDP was noted to be 18. 06/04 Patient seen and examined. He underwent heart catheterization yesterday and given IV fluids. Creatinine improved to 1.3 today. Denies any chest pain or pressure. Being evaluated for rehab. Blood pressures fairly well controlled and the systolics 100s to 130s. GENERAL: In no acute distress. NECK: Supple without JVD LUNGS: Breath sounds clear to auscultation bilaterally. Respiration equal and u nlabored. No wheezes, rales or rhonchi. HEART: Regular rate and rhythm without murmurs, rubs or gallops. S1 and S2 heard. EXTREMITIES: Normal range of motion, no edema. No clubbing or cyanosis. Kimberly pheral pulses intact. ASSESSMENT Elevated troponin, rule out ACS Cardiomyopathy EF 30%, ischemic vs non-ischemic Acute kidney injury likely related to IV diuresis Chest pain Shortness of breath Hypertension History of paroxysmal atrial fibrillation on coumadin outpatient Non-compliant with medication Chronic nicotine dependence Dyslipidemia History of DVT History of left above knee amputation PLAN Continue Toprol for HF regimen and low dose Imdur more for antianginal effects. Unable to tolerate much HF regimen. Appears stable for discharge home from a cardiology standpoint. Being evaluated for possible rehab. No further recommendations. Please call with any questions. Objective - Vital Signs Vital signs: Vital Signs Temp 97.9 F 06/04/22 12:00 Pulse 56 L 06/04/22 12:00 Resp 16 06/04/22 12:00 BP 138/69 06/04/22 12:00 Pulse Ox 96 06/04/22 12:00 FiO2 Intake & Output 06/03/22 06/04/22 06/04/22 18:59 06:59 18:59 Intake Total 200 360 Output Total 1000 1075 650 Balance -800 -1075 -290 Intake: IV 200 Oral 360 Output: Urine 1000 1075 650 Other: Voiding Method Indwelling Catheter Indwelling Catheter - Labs CBC & Chem 7: 06/04/22 07:42 06/04/22 07:42 Labs: Abnormal Lab Results - Last 24 Hours (Table) 06/03/22 06/03/22 06/04/22 Range/Units 16:29 20:13 05:55 RBC (4.30-5.90) m/uL Hgb (13.0-17.5) gm/dL Hct (39.0-53.0) % MCHC (31.0-37.0) g/dL Sodium (137-145) mmol/L Potassium (3.5-5.1) mmol/L Chloride (98-107) mmol/L Carbon Dioxide (22-30) mmol/L BUN (9-20) mg/dL Creatinine (0.66-1.25) mg/dL Glucose (74-99) mg/dL POC Glucose (mg/dL) 185 H 151 H 112 H (70-110) mg/dL Calcium (8.4-10.2) mg/dL 06/04/22 06/04/22 06/04/22 Range/Units 07:42 07:42 11:57 RBC 3.62 L (4.30-5.90) m/uL Hgb 10.3 L (13.0-17.5) gm/dL Hct 34.5 L (39.0-53.0) % MCHC 30.0 L (31.0-37.0) g/dL Sodium 136 L (137-145) mmol/L Potassium 5.2 H (3.5-5.1) mmol/L Chloride 109 H (98-107) mmol/L Carbon Dioxide 19 L (22-30) mmol/L BUN 23 H (9-20) mg/dL Creatinine 1.28 H (0.66-1.25) mg/dL Glucose 172 H (74-99) mg/dL POC Glucose (mg/dL) 209 H (70-110) mg/dL Calcium 7.9 L (8.4-10.2) mg/dL
[2022-06-04 17:02] LABS: Glucose,Whole Blood 77 mg/dL (70-110)
[2022-06-04] MEDS: TAMSULOSIN 0.4 MG CAP.ER.24H PO SCH (17:06)
[2022-06-04] MEDS ORDERED: oxyCODONE-APAP 10-325MG 1 EACH TAB PO ONE (19:44)
[2022-06-04 20:00] LABS: Glucose,Whole Blood 164 mg/dL (70-110)
[2022-06-04] MEDS: LORATADINE 10 MG TAB PO SCH (20:17)
[2022-06-04] MEDS: ATORVASTATIN 80 MG TAB PO SCH (20:17)
[2022-06-05] MEDS: INSULIN ASPART (NovoLOG) 100 UNIT/ML VIAL SQ SCH ×4 (06:23→20:32)
--- NOTE | 2022-06-05 08:31 | P.PN ---
Subjective Progress Note Date: 06/05/22 Principal diagnosis: 67-year-old male is seen with acute kidney injury secondary to combination of contrast use of Ruperto and nonsteroidals, and additionally outlet obstruction. Further he had a heart catheterization day before yesterday. No significant coronary artery disease. He is continuing to make urine has a Gamble catheter. Complains of aches and pains all over denies any shortness of breath abdominal pain. He is known with diabetes mellitus, COPD, atrial fibrillation, DVT, Isabell filter left AKA Objective - Vital Signs Vital signs: Vital Signs Temp 97.8 F 06/04/22 23:53 Pulse 60 06/05/22 03:39 Resp 16 06/05/22 03:39 BP 160/80 06/05/22 03:39 Pulse Ox 99 06/05/22 03:39 FiO2 Intake & Output 06/04/22 06/05/22 06/05/22 18:59 06:59 18:59 Intake Total 1080 Output Total 2200 1550 Balance -1120 -1550 Intake: Oral 1080 Output: Urine 2200 1550 Other: Voiding Method Indwelling Catheter Indwelling Catheter On exam awake alert oriented comfortable HEENT exam no JVP neck is supple no facial asymmetry Lungs clear to auscultation good air entry bilaterally Heart sounds unremarkable no murmur rub gallop Abdomen soft nontender Extremity exam was no edema Neurologically awake alert oriented. - Labs CBC & Chem 7: 06/04/22 07:42 06/04/22 07:42 Labs: Abnormal Lab Results - Last 24 Hours (Table) 06/04/22 06/04/22 06/04/22 Range/Units 07:42 07:42 11:57 RBC 3.62 L (4.30-5.90) m/uL Hgb 10.3 L (13.0-17.5) gm/dL Hct 34.5 L (39.0-53.0) % MCHC 30.0 L (31.0-37.0) g/dL Sodium 136 L (137-145) mmol/L Potassium 5.2 H (3.5-5.1) mmol/L Chloride 109 H (98-107) mmol/L Carbon Dioxide 19 L (22-30) mmol/L BUN 23 H (9-20) mg/dL Creatinine 1.28 H (0.66-1.25) mg/dL Glucose 172 H (74-99) mg/dL POC Glucose (mg/dL) 209 H (70-110) mg/dL Calcium 7.9 L (8.4-10.2) mg/dL 06/04/22 Range/Units 19:59 RBC (4.30-5.90) m/uL Hgb (13.0-17.5) gm/dL Hct (39.0-53.0) % MCHC (31.0-37.0) g/dL Sodium (137-145) mmol/L Potassium (3.5-5.1) mmol/L Chloride (98-107) mmol/L Carbon Dioxide (22-30) mmol/L BUN (9-20) mg/dL Creatinine (0.66-1.25) mg/dL Glucose (74-99) mg/dL POC Glucose (mg/dL) 164 H (70-110) mg/dL Calcium (8.4-10.2) mg/dL Assessment and Plan Assessment: Assessment: 1. Acute kidney injury secondary to ATN secondary to contrast-induced acute kidney injury and diuresis. Further worsened with the use of RUPERTO inhibitor and nonsteroidals. Patient received IV contrast on 05/28/2022. Creatinine 1.6 yesterday. UA benign. No hydronephrosis noted on renal ultrasound. Has had cardiac cath day before yesterday. Labs are pending today urine output is maintained. Creatinine is improved to 1.28 as of yesterday 2. Cardiomyopathy with ejection fraction of 30%. ACS being ruled out. . Cardiology following. Had cardiac catheterization 06/03/2022 with no significant coronary artery disease noted 3. Diabetes mellitus. 4. Status post left AKA. 5. Urinary retention status post Gamble catheter placement. On Flomax. 6. Mild hyperkalemia secondary to acute kidney injury. 7. Complains of aches and pains all over Plan: Discontinue normal saline to 75 mL an hour. had Diuretics and RUPERTO inhibitor held. May start lisinopril 5 mg a day and watch labs Nonsteroidals discontinued. Avoid nephrotoxins. Pending labs today
--- NOTE | 2022-06-05 08:45 | P.PN ---
Subjective From the records This is a 67-year-old male who was recently admitted with chest pain, unstable angina with vascular cellulitis and being closely monitored with cardiology following closely. Plan is for cardiac catheterization in the a.m. Initially patient was scheduled for cardiac catheterization today although kidney functions slightly worsened and creatinine today is 1.59. Patient also more lethargic today and will adjust medications. Patient was placed back on heparin drip and will await cardiology report. Most recent EF is 30%. Patient is afebrile denies shortness of breath or palpitations. Patient denies nausea or vomiting and is tolerating diet. Patient was placed on gentle IV hydration and will follow-up with repeat labs in a.m. 06/01/2022 Patient is seen in follow-up today being followed by cardiology and was tentatively scheduled for cardiac catheterization today although kidney functions continue to be elevated and currently and kidneys with low blood pressure. Patient does have history of heart failure and recommend gentle IV hydration with follow-up labs. Blood pressure has been on the softer side and normally takes lisinopril although will hold and follow-up and will watch the labs closely. Nephrology consultation and appreciate input and recommendations. Patient continues to have retention and has been requiring straight catheterization. Patient normally takes Flomax and will continue and will also recommend indwelling Gamble catheter. Patient is continued on IV heparin and plans for possible cardiac catheterization this Monday. Continue telemetry monitoring. Encouraged oral intake and increased activity as tolerated. Patient more alert and awake today than yesterday. Patient is afebrile denies chest pain or worsening shortness of breath. No reports of nausea or vomiting and patient is tolerating diet. 06/02/2022 Subjective Patient was resting in bed with no chest pain or tachypnea or dyspnea. He was complaining of from his right ring Finger but he has small wound at the proximal interphalangeal joint with no significant surrounding cellulitis. He was on room air. Gamble catheter in a Place. Patient requesting for pain medication for his right leg, MAPS was checked on the last time he got Percocet 10 mg prescribed for him was 11/17/2021 for quantity of 12 for 3 days. We going to start gabapentin Patient will plan to undergo cardiac cath on Monday because of his worsening kidney function, plug drill operator and cdl company driver on the case. He has history of left BKA Distal on heparin drip and normal saline 06/03/2022 patient lying in bed comfortable complains from no chest pain and he kept on heparin drip with cardiology planned for cardiac cath Cathode Builder also on the case for trending up creatinine and today went up 1.4 and 21.6. No oliguria. Blood pressure is borderline 98/56 however patient is asymptomatic. Patient for his right foot pain which is changed To Neurontin. Right finger infection is very minimal on the small wound. Patient remains on doxycycline Also patient is in normal sinus 50 mL/h 06/05/2022 Today patient was more upset about his care and pain medication, he was asking for Percocet stating that his PCP prescribed for him. Last night the on-call physician ordered Percocet 10-325. MAPS was checked last time Percocet was prescribed for him was last November that's about 6 months ago. I explained for him the risks and benefits of this medi cation and the risk including respiratory depression and/or and the risk of addiction, patient this and carefully but still refusing the care and he refuses examination and to answer my questions MAPS was rechecked again today, last prescription for Percocet 10-to 325 mg was on 11/17/2021 quantity 12 tablets for 3 days, and the one before that was on 08/31/2021 quantity 90 tablets for 22 days. No more Percocet prescription or other narcotics since 11/2021 as above. Therefore risk of this medication more than benefits however patient still focused on getting Percocet specifically. He states that this is for his right leg pain However patient refused exam We going to increase gabapentin 100 mg up to 300 mg 3 times a day Labs from yesterday noted including potassium of 5.2 and creatinine 1.2 Cathode Builder on the case and adjusted his blood pressure medication. Objective - Vital Signs Vital signs: Vital Signs Temp 97.8 F 06/04/22 23:53 Pulse 60 06/05/22 03:39 Resp 16 06/05/22 03:39 BP 160/80 06/05/22 03:39 Pulse Ox 99 06/05/22 03:39 FiO2 Intake & Output 06/04/22 06/05/22 06/05/22 18:59 06:59 18:59 Intake Total 1080 Output Total 2200 1550 Balance -1120 -1550 Intake: Oral 1080 Output: Urine 2200 1550 Other: Voiding Method Indwelling Catheter Indwelling Catheter - Exam pt is refused exam - Labs CBC & Chem 7: 06/04/22 07:42 06/04/22 07:42 Labs: Abnormal Lab Results - Last 24 Hours (Table) 06/04/22 06/04/22 06/04/22 Range/Units 07:42 11:57 19:59 Sodium 136 L (137-145) mmol/L Potassium 5.2 H (3.5-5.1) mmol/L Chloride 109 H (98-107) mmol/L Carbon Dioxide 19 L (22-30) mmol/L BUN 23 H (9-20) mg/dL Creatinine 1.28 H (0.66-1.25) mg/dL Glucose 172 H (74-99) mg/dL POC Glucose (mg/dL) 209 H 164 H (70-110) mg/dL Calcium 7.9 L (8.4-10.2) mg/dL Assessment and Plan Assessment: possible acute non-ST segment elevation myocardial infarction with elevated troponin however patient had normal coronary arteries on cardiac cath. Cleared by cdl company driver Wound of the right ring finger with very minimal Cellulitis acute kidney injury most likely contrast-induced nephropathy complicated by use of JEVON inhibitor and NSAIDs Drug-seeking behavior and noncompliance with medication and recommendation Cardiomyopathy with ejection fraction 30% Mediastinal and bronchial lymphadenopathy emphysematous changes Continued ongoing nicotine dependence chronic Atrial fibrillation, on Coumadin in the office, currently on heparin drip History of asthma History of CVA/TIA Diabetes mellitus, type II, uncontrolled with hyper and hypoglycemia Gastroesophageal reflux disease Hyperlipidemia Hypertension History of PEs and DVTs Plan: Continue with aspirin 81 mg and heparin drip Cap Parts Cutter on the case . Patient for discharge On metoprolol Continue gentle hydration with monitored kidney function, plug drill operator on the case continue with oral doxycycline He pulled and metformin, lisinopril. KATHLEEN Quevedo. Labs and medication were reviewed.. Continue same treatment. Continue with symptomatic treatment. Resume home medication. Monitor labs and vitals. DVT and GI prophylaxis. Further recommendations as per clinical course of the patient DVT prophylaxis: heparin GI Prophylaxis: Ppi PT/OT: Pending Prognosis is guarded Medical care is affected by lack of patient cooperation
[2022-06-05 08:59] LABS: INR 1.1 (<1.2); Prothrombin Time 12.1 sec (9.0-12.0)
[2022-06-05] MEDS: IPRATROPIUM-ALBUTEROL 3 ML NEB INHALATION SCH ×3 (09:02→20:34)
[2022-06-05 09:03] LABS: Calcium 8.2 mg/dL (8.4-10.2); Potassium 4.6 mmol/L (3.5-5.1)
[2022-06-05] MEDS: METOPROLOL SUCCINATE (ER) 50 MG TAB.ER.24H PO SCH (09:53)
[2022-06-05] MEDS: AMIODARONE 200 MG TAB PO SCH (09:53)
[2022-06-05] MEDS: ISOSORBIDE MONONITRATE ER 15 MG TAB PO SCH (09:53)
[2022-06-05] MEDS: PANTOPRAZOLE 40 MG TABLET PO SCH (09:53)
[2022-06-05] MEDS: TOPIRAMATE 25 MG TAB PO SCH ×2 (09:53→20:57)
[2022-06-05] MEDS: PIOGLITAZONE 30 MG TAB PO SCH (09:53)
[2022-06-05] MEDS: lisinopriL 5 MG TAB PO SCH (09:53)
[2022-06-05] MEDS: ASPIRIN 81 MG PO SCH (09:53)
[2022-06-05] MEDS: BACITRACIN ZINC 500 UNIT/GM OINT 28.4 GM TUBE TOPICAL SCH ×4 (09:54→20:57)
[2022-06-05] MEDS: DOXYCYCLINE 100 MG CAP PO SCH ×2 (09:54→20:57)
[2022-06-05] MEDS: GLIMEPIRIDE 4 MG TAB PO SCH (09:54)
[2022-06-05] MEDS: GABAPENTIN 300 MG CAP PO SCH ×4 (09:54→20:57)
[2022-06-05 11:36] LABS: Glucose,Whole Blood 99 mg/dL (70-110)
--- NOTE | 2022-06-05 15:28 | P.PN ---
Subjective Progress Note Date: 06/04/22 Principal diagnosis: Bilateral hand and finger wound Patient is a 67-year-old male with multiple comorbidities including diabetic wound infection requiring [id number] amputation, presenting to the hospital with chest pain in this patient who did have traumatic wound to the left ring and right middle finger On today's evaluation that is 06/04/2022 patient continues to be afebrile, the patient is breathing comfortably currently on room air, the patient denies chest pain shortness of breath or cough no abdominal pain no new worsening pain to the right ring and left middle finger wound area no drainage Objective - Vital Signs Vital signs: Vital Signs Temp 97.9 F 06/04/22 12:00 Pulse 56 L 06/04/22 12:00 Resp 16 06/04/22 12:00 BP 138/69 06/04/22 12:00 Pulse Ox 96 06/04/22 12:00 FiO2 Intake & Output 06/03/22 06/04/22 06/04/22 18:59 06:59 18:59 Intake Total 200 720 Output Total 1000 1075 650 Balance -800 -1075 70 Intake: IV 200 Oral 720 Output: Urine 1000 1075 650 Other: Voiding Method Indwelling Catheter Indwelling Catheter Indwelling Catheter - Exam GENERAL DESCRIPTION: An elderly male lying in bed in no distress RESPIRATORY SYSTEM: Unlabored breathing , decreased breath sounds at bases HEART: S1 S2 regular rate and rhythm , ABDOMEN: Soft , no tenderness EXTREMITIES: Right index finger wound with no slough tissue or surrounding redness - Labs CBC & Chem 7: 06/04/22 07:42 06/05/22 08:22 Labs: Abnormal Lab Results - Last 24 Hours (Table) 06/03/22 06/04/22 06/04/22 Range/Units 20:13 05:55 07:42 RBC (4.30-5.90) m/uL Hgb (13.0-17.5) gm/dL Hct (39.0-53.0) % MCHC (31.0-37.0) g/dL Sodium 136 L (137-145) mmol/L Potassium 5.2 H (3.5-5.1) mmol/L Chloride 109 H (98-107) mmol/L Carbon Dioxide 19 L (22-30) mmol/L BUN 23 H (9-20) mg/dL Creatinine 1.28 H (0.66-1.25) mg/dL Glucose 172 H (74-99) mg/dL POC Glucose (mg/dL) 151 H 112 H (70-110) mg/dL Calcium 7.9 L (8.4-10.2) mg/dL 06/04/22 06/04/22 Range/Units 07:42 11:57 RBC 3.62 L (4.30-5.90) m/uL Hgb 10.3 L (13.0-17.5) gm/dL Hct 34.5 L (39.0-53.0) % MCHC 30.0 L (31.0-37.0) g/dL Sodium (137-145) mmol/L Potassium (3.5-5.1) mmol/L Chloride (98-107) mmol/L Carbon Dioxide (22-30) mmol/L BUN (9-20) mg/dL Creatinine (0.66-1.25) mg/dL Glucose (74-99) mg/dL POC Glucose (mg/dL) 209 H (70-110) mg/dL Calcium (8.4-10.2) mg/dL Assessment and Plan (1) Finger wound, simple, open Current Visit: Yes Status: Acute Code(s): S61.209A - UNSP OPEN WOUND OF UNSP FINGER W/O DAMAGE TO NAIL, INIT SNOMED Code(s): 600010429 (2) Abnormal CT scan, chest Current Visit: Yes Status: Acute Code(s): R93.89 - ABNORMAL FINDINGS ON DX IMAGING OF OTH BODY STRUCTURES SNOMED Code(s): 64829336254758232 Plan: 1patient did have a wound to the right ring and left middle finger traumatic. Both wounds superficial and did not have significant surrounding swelling redness concerning for cellulitis and the x-ray did not show any bony changes at that location patient do have a history of MRSA infection 2patient presenting with increasing shortness of breath and chest pain did have CT angiogram of the chest which was abnormal concerning for bilateral lower lobe consolidation possibly fluid related clinical not behaving as pneumonia,patient did have normal procalcitonin level that will make him on a less likely. 3local wound care to the right ring finger as well as left middle finger wound with a dry Aquacel silver dressing change every 48 hour. 4Patient seemed to have any improvement as for his right ring and left middle finger wounds is concerned and will continue local wound care as ordered along with oral doxycycline and monitor clinical course closely Time with Patient: Less than 30
--- NOTE | 2022-06-05 15:30 | P.PN ---
Subjective Progress Note Date: 06/05/22 Principal diagnosis: Bilateral hand and finger wound Patient is a 67-year-old male with multiple comorbidities including diabetic wound infection requiring [id number] amputation, presenting to the hospital with chest pain in this patient who did have traumatic wound to the left ring and right middle finger On today's evaluation that is 06/05/2022 patient remains to be afebrile, the patient is breathing comfortably currently on room air, the patient slightly to be lethargic and did not answer any question no vomiting or diarrhea was reported by the nursing staff Objective - Vital Signs Vital signs: Vital Signs Temp 97.7 F 06/05/22 12:38 Pulse 65 06/05/22 12:38 Resp 16 06/05/22 12:38 BP 138/72 06/05/22 12:38 Pulse Ox 97 06/05/22 12:38 FiO2 Intake & Output 06/04/22 06/05/22 06/05/22 18:59 06:59 18:59 Intake Total 1080 Output Total 2200 1550 Balance -1120 -1550 Intake: Oral 1080 Output: Urine 2200 1550 Other: Voiding Method Indwelling Catheter Indwelling Catheter - Exam GENERAL DESCRIPTION: An elderly male lying in bed in no distress RESPIRATORY SYSTEM: Unlabored breathing , decreased breath sounds at bases HEART: S1 S2 regular rate and rhythm , ABDOMEN: Soft , no tenderness EXTREMITIES: Right index finger wound with no slough tissue or surrounding redness - Labs CBC & Chem 7: 06/04/22 07:42 06/05/22 08:22 Labs: Abnormal Lab Results - Last 24 Hours (Table) 06/04/22 06/05/22 06/05/22 Range/Units 19:59 08:22 08:22 PT 12.1 H (9.0-12.0) sec Sodium 136 L (137-145) mmol/L Chloride 110 H (98-107) mmol/L Carbon Dioxide 20 L (22-30) mmol/L Glucose 110 H (74-99) mg/dL POC Glucose (mg/dL) 164 H (70-110) mg/dL Calcium 8.2 L (8.4-10.2) mg/dL Assessment and Plan (1) Finger wound, simple, open Current Visit: Yes Status: Acute Code(s): S61.209A - UNSP OPEN WOUND OF UNSP FINGER W/O DAMAGE TO NAIL, INIT SNOMED Code(s): 495868640 (2) Abnormal CT scan, chest Current Visit: Yes Status: Acute Code(s): R93.89 - ABNORMAL FINDINGS ON DX IMAGING OF OTH BODY STRUCTURES SNOMED Code(s): 03216163982363716 Plan: 1patient did have a wound to the right ring and left middle finger traumatic. Both wounds superficial and did not have significant surrounding swelling redness concerning for cellulitis and the x-ray did not show any bony changes at that location patient do have a history of MRSA infection 2patient presenting with increasing shortness of breath and chest pain did have CT angiogram of the chest which was abnormal concerning for bilateral lower lobe consolidation possibly fluid related clinical not behaving as pneumonia,patient did have normal procalcitonin level that will make pneumonia to be less likely. 3local wound care to the right ring finger as well as left middle finger wound with a dry Aquacel silver dressing change every 48 hour. 4Patient has shown clinical improvement as for his right ring and left middle finger wounds is concerned the patient will continue local wound care with Aquacel silver dressing and oral doxycycline and monitor clinical course closely Time with Patient: Less than 30
[2022-06-05 16:37] LABS: Glucose,Whole Blood 93 mg/dL (70-110)
[2022-06-05] MEDS: TAMSULOSIN 0.4 MG CAP.ER.24H PO SCH (18:58)
[2022-06-05 20:15] LABS: Glucose,Whole Blood 131 mg/dL (70-110)
[2022-06-05] MEDS: LORATADINE 10 MG TAB PO SCH (20:57)
[2022-06-05] MEDS: ATORVASTATIN 80 MG TAB PO SCH (20:57)
[2022-06-05] MEDS: ALPRAZolam 0.25 MG TAB PO PRN (20:59)
[2022-06-06] MEDS: ALPRAZolam 0.25 MG TAB PO PRN ×2 (02:42→08:51)
[2022-06-06] MEDS: ACETAMINOPHEN TAB 325 MG TAB PO PRN ×2 (02:42→08:50)
[2022-06-06 06:09] LABS: Glucose,Whole Blood 81 mg/dL (70-110)
[2022-06-06] MEDS: INSULIN ASPART (NovoLOG) 100 UNIT/ML VIAL SQ SCH ×4 (06:12→22:32)
[2022-06-06] MEDS: IPRATROPIUM-ALBUTEROL 3 ML NEB INHALATION SCH ×3 (08:06→19:47)
[2022-06-06] MEDS: GABAPENTIN 300 MG CAP PO SCH (08:51)
[2022-06-06] MEDS: AMIODARONE 200 MG TAB PO SCH (08:51)
[2022-06-06] MEDS: lisinopriL 5 MG TAB PO SCH (08:51)
[2022-06-06] MEDS: PANTOPRAZOLE 40 MG TABLET PO SCH (08:51)
[2022-06-06] MEDS: TOPIRAMATE 25 MG TAB PO SCH ×2 (08:51→23:39)
[2022-06-06] MEDS: METOPROLOL SUCCINATE (ER) 50 MG TAB.ER.24H PO SCH (08:51)
[2022-06-06] MEDS: ASPIRIN 81 MG PO SCH (08:51)
[2022-06-06] MEDS: ISOSORBIDE MONONITRATE ER 15 MG TAB PO SCH (08:53)
[2022-06-06] MEDS: PIOGLITAZONE 30 MG TAB PO SCH (08:53)
[2022-06-06] MEDS: DOXYCYCLINE 100 MG CAP PO SCH ×2 (08:53→22:32)
[2022-06-06] MEDS: GLIMEPIRIDE 4 MG TAB PO SCH (08:53)
[2022-06-06] MEDS: BACITRACIN ZINC 500 UNIT/GM OINT 28.4 GM TUBE TOPICAL SCH ×4 (08:58→22:33)
[2022-06-06 09:42] LABS: INR 1.2 (<1.2); Prothrombin Time 12.9 sec (9.0-12.0)
[2022-06-06 09:46] LABS: Calcium 8.4 mg/dL (8.4-10.2); Potassium 4.3 mmol/L (3.5-5.1)
--- NOTE | 2022-06-06 11:32 | P.PN ---
Subjective 7-year-old male is seen with acute kidney injury secondary to combination of contrast use of Ruperto and nonsteroidals, and additionally outlet obstruction. Status post Gamble catheter with good urine output. Status post heart catheterization on 06/03/2022. No significant coronary artery disease. Complains of aches and pains all over. Serum creatinine staying at about 1.2 mg/dL. Objective - Vital Signs Vital signs: Vital Signs Temp 98.2 F 06/06/22 08:50 Pulse 58 L 06/06/22 08:50 Resp 16 06/06/22 08:50 BP 121/53 06/06/22 08:50 Pulse Ox 93 L 06/06/22 08:50 FiO2 Intake & Output 06/05/22 06/06/22 06/06/22 18:59 06:59 18:59 Intake Total 360 240 Output Total 1350 2625 Balance -1350 -2265 240 Intake: Oral 360 240 Output: Urine 1350 2625 Other: Voiding Method Indwelling Catheter Indwelling Catheter - Exam On exam awake alert oriented comfortable HEENT exam no JVP neck is supple no facial asymmetry Lungs clear to auscultation good air entry bilaterally Heart sounds unremarkable no murmur rub gallop Abdomen soft nontender Extremity exam was no edema Neurologically awake alert oriented. - Labs CBC & Chem 7: 06/04/22 07:42 06/06/22 09:03 Labs: Abnormal Lab Results - Last 24 Hours (Table) 06/05/22 06/06/22 06/06/22 Range/Units 20:14 09:03 09:03 PT 12.9 H (9.0-12.0) sec INR 1.2 H (<1.2) Chloride 111 H (98-107) mmol/L Creatinine 1.26 H (0.66-1.25) mg/dL Glucose 107 H (74-99) mg/dL POC Glucose (mg/dL) 131 H (70-110) mg/dL Assessment and Plan Assessment: 1. Acute kidney injury secondary to ATN secondary to contrast-induced acute kidney injury and diuresis. Further worsened with the use of RUPERTO inhibitor and nonsteroidals. Patient received IV contrast on 05/28/2022. And on 06/03/2022 for cardiac catheterization. UA benign. No hydronephrosis noted on renal ultrasound. Serum creatinine staying at around 1.2 mg/dL 2. Cardiomyopathy with ejection fraction of 30%. ACS being ruled out. . Cardiology following. Had cardiac catheterization 06/03/2022 with no significant coronary artery disease noted 3. Diabetes mellitus. 4. Status post left AKA. 5. Urinary retention status post Gamble catheter placement. On Flomax. 6. Mild hyperkalemia secondary to acute kidney injury. 7. Complains of aches and pains all over Plan: Continue off of IV fluids Continue with RUPERTO inhibitor's Encourage increased oral intake
[2022-06-06 11:50] LABS: Glucose,Whole Blood 186 mg/dL (70-110)
--- NOTE | 2022-06-06 16:20 | P.PN ---
Subjective Progress Note Date: 06/06/22 From the records This is a 67-year-old male who was recently admitted with chest pain, unstable angina with vascular cellulitis and being closely monitored with cardiology following closely. Plan is for cardiac catheterization in the a.m. Initially patient was scheduled for cardiac catheterization today although kidney functions slightly worsened and creatinine today is 1.59. Patient also more lethargic today and will adjust medications. Patient was placed back on heparin drip and will await cardiology report. Most recent EF is 30%. Patient is afebrile denies shortness of breath or palpitations. Patient denies nausea or vomiting and is tolerating diet. Patient was placed on gentle IV hydration and will follow-up with repeat labs in a.m. 06/01/2022 Patient is seen in follow-up today being followed by cardiology and was tentatively scheduled for cardiac catheterization today although kidney functions continue to be elevated and currently and kidneys with low blood pressure. Patient does have history of heart failure and recommend gentle IV hydration with follow-up labs. Blood pressure has been on the softer side and normally takes lisinopril although will hold and follow-up and will watch the labs closely. Nephrology consultation and appreciate input and recommendations. Patient continues to have retention and has been requiring straight catheterization. Patient normally takes Flomax and will continue and will also recommend indwelling Gamble catheter. Patient is continued on IV heparin and plans for possible cardiac catheterization this Monday. Continue telemetry mo nitoring. Encouraged oral intake and increased activity as tolerated. Patient more alert and awake today than yesterday. Patient is afebrile denies chest pain or worsening shortness of breath. No reports of nausea or vomiting and patient is tolerating diet. 06/02/2022 Subjective Patient was resting in bed with no chest pain or tachypnea or dyspnea. He was complaining of from his right ring Finger but he has small wound at the proximal interphalangeal joint with no significant surrounding cellulitis. He was on room air. Gamble catheter in a Place. Patient requesting for pain medication for his right leg, MAPS was checked on the last time he got Percocet 10 mg prescribed for him was 11/17/2021 for quantity of 12 for 3 days. We going to start gabapentin Patient will plan to undergo cardiac cath on Monday because of his worsening kidney function, door repairer bus and nursing services manager on the case. He has history of left BKA Distal on heparin drip and normal saline 06/03/2022 patient lying in bed comfortable complains from no chest pain and he kept on heparin drip with cardiology planned for cardiac cath Supervisor [employer]arms also on the case for trending up creatinine and today went up 1.4 and 21.6. No oliguria. Blood pressure is borderline 98/56 however patient is asymptomatic. Patient for his right foot pain which is changed To Neurontin. Right finger infection is very minimal on the small wound. Patient remains on doxycycline Also patient is in normal sinus 50 mL/h 06/05/2022 Today patient was more upset about his care and pain medication, he was asking for Percocet stating that his PCP prescribed for him. Last night the on-call physician ordered Percocet [id number]. MAPS was checked last time Percocet was prescribed for him was last November that's about 6 months ago. I explained for him the risks and benefits of this medication and the risk including respiratory depression and/or and the risk of addiction, patient this and carefully but still refusing the care and he refuses examination and to answer my questions MAPS was rechecked again today, last prescription for Percocet 10-to 325 mg was on 11/17/2021 quantity 12 tablets for 3 days, and the one before that was on 08/31/2021 quantity 90 tablets for 22 days. No more Percocet prescription or other narcotics since 11/2021 as above. Therefore risk of this medication more than benefits however patient still focused on getting Percocet specifically. He states that this is for his right leg pain However patient refused exam We going to increase gabapentin 100 mg up to 300 mg 3 times a day Labs from yesterday noted including potassium of 5.2 and creatinine 1.2 Supervisor [employer] on the case and adjusted his blood pressure medication. 06/06/2022 Patient resting in bed today, continues to report significant achy 10/10 pain to his right lower extremity and also left AKA. He is requesting oral narcotics. Patient does report he was discharged from his primary care office and also pain management services he was seeing out in [place] due to not showing up for office visits. Reports that no one is refilling his medications for him outpatient. He would benefit from establish with pain management services locally.Received xanax this morning and is sedated. Unable to finish conversation or keep eyes open long enough to carry a conversation. Falling asleep mid sentence. Xanax will be stopped. Indwelling catheter can also be discontinued today. On warfarin, INR today 1.2. Review of Systems Constitutional: Denied any fatigue denied any fever. Cardio vascular: denied any chest pain, palpitations Gastrointestinal: denied any nausea, vomiting, diarrhea Pulmonary: Denied any shortness of breath cough Neurologic denied any new focal deficits All inpatient medications were reviewed and appropriate changes in these medications as dictated in the interval history and assessment and plan PHYSICAL EXAMINATION: GENERAL: The patient is alert and oriented x3, not in any acute distress. Well developed, well nourished. Lethargic, sedated. HEENT: Pupils are round and equally reacting to light. EOMI. No scleral icterus. No conjunctival pallor. Normocephalic, atraumatic. No pharyngeal erythema. No thyromegaly. CARDIOVASCULAR: S1 and S2 present. No murmurs, rubs, or gallops. PULMONARY: Chest is clear to auscultation, no wheezing or crackles. ABDOMEN: Soft, nontender, nondistended, normoactive bowel sounds. No palpable organomegaly. MUSCULOSKELETAL: No joint swelling or deformity. EXTREMITIES: No cyanosis, clubbing, or pedal edema. Left AKA. NEUROLOGICAL: Gross neurological examination did not reveal any focal deficits. SKIN: No rashes. Assessment and Plan Possible acute non-ST segment elevation myocardial infarction with elevated troponin however patient had normal coronary arteries on cardiac cath. Cleared by nursing services manager Wound of the right ring finger with very minimal Cellulitis Acute kidney injury most likely contrast-induced nephropathy complicated by use of JEVON inhibitor and NSAIDs, improving Drug-seeking behavior and noncompliance with medication and recommendation Cardiomyopathy with ejection fraction 30% Mediastinal and bronchial lymphadenopathy emphysematous changes Continued ongoing nicotine dependence Chronic Atrial fibrillation, on Coumadin in the office - INR 1.2 History of asthma History of CVA/TIA Diabetes mellitus, type II, uncontrolled with hyper and hypoglycemia Gastroesophageal reflux disease Hyperlipidemia Hypertension History of PEs and DVTs GI prophylaxis DVT prophylaxis on warfarin Do not resuscitate/do not intubate Plan: Continue with aspirin 81 mg, warfarin On metoprolol, atorvastatin, lisinopril resumed Monitor kidney function, nephrology following Continue with oral doxycycline, ID following Mobic D/C, holding metformin Referral to PCP and pain management on D/C Started on tramadol Possible D/C in the next 24 hours Repeat labs in AM The impression and plan of care has been dictated by Birgit Russell Nurse Practitioner as directed. Dr. Miguel MD I have performed a history and physical examination and medical decision making of this patient, discussed the same with the dictator, and agree with the dic tators assessment and plan as written, documented as a scribe. Based on total visit time, I have performed more than 50% of this visit. Objective - Vital Signs Vital signs: Vital Signs Temp 98.1 F 06/06/22 04:00 Pulse 58 L 06/06/22 04:00 Resp 20 06/06/22 04:00 BP 97/51 06/06/22 04:00 Pulse Ox 94 L 06/06/22 04:00 FiO2 Intake & Output 06/05/22 06/06/22 06/06/22 18:59 06:59 18:59 Intake Total 360 240 Output Total 1350 2625 Balance -1350 -2265 240 Intake: Oral 360 240 Output: Urine 1350 2625 Other: Voiding Method Indwelling Catheter Indwelling Catheter - Labs CBC & Chem 7: 06/04/22 07:42 06/06/22 09:03 Labs: Abnormal Lab Results - Last 24 Hours (Table) 06/05/22 06/05/22 06/05/22 Range/Units 08:22 08:22 20:14 PT 12.1 H (9.0-12.0) sec Sodium 136 L (137-145) mmol/L Chloride 110 H (98-107) mmol/L Carbon Dioxide 20 L (22-30) mmol/L Glucose 110 H (74-99) mg/dL POC Glucose (mg/dL) 131 H (70-110) mg/dL Calcium 8.2 L (8.4-10.2) mg/dL Assessment and Plan Time with Patient: Less than 30
[2022-06-06 16:33] LABS: Glucose,Whole Blood 155 mg/dL (70-110)
[2022-06-06] MEDS: TAMSULOSIN 0.4 MG CAP.ER.24H PO SCH (17:21)
[2022-06-06] MEDS: traMADol 50 MG TAB PO PRN ×2 (17:23→23:41)
[2022-06-06] MEDS ORDERED: WARFARIN 5 MG TAB PO ONE (18:00)
[2022-06-06] MEDS ORDERED: GABAPENTIN 100 MG CAP PO SCH (21:00)
[2022-06-06 21:02] LABS: Glucose,Whole Blood 231 mg/dL (70-110)
[2022-06-06] MEDS: LORATADINE 10 MG TAB PO SCH (22:32)
[2022-06-06] MEDS: ATORVASTATIN 80 MG TAB PO SCH (22:32)
[2022-06-06] MEDS: PREGABALIN 100 MG CAP PO SCH (22:32)
[2022-06-07 06:18] LABS: Glucose,Whole Blood 86 mg/dL (70-110)
[2022-06-07] MEDS: INSULIN ASPART (NovoLOG) 100 UNIT/ML VIAL SQ SCH ×4 (06:42→20:51)
[2022-06-07] MEDS: traMADol 50 MG TAB PO PRN ×3 (07:09→20:20)
[2022-06-07 07:16] LABS: INR 1.3 (<1.2); Prothrombin Time 12.8 sec (9.0-12.0)
[2022-06-07] MEDS: IPRATROPIUM-ALBUTEROL 3 ML NEB INHALATION SCH ×3 (08:21→21:13)
[2022-06-07] MEDS: lisinopriL 5 MG TAB PO SCH (08:26)
[2022-06-07] MEDS: PREGABALIN 100 MG CAP PO SCH ×2 (08:26→20:51)
[2022-06-07] MEDS: ASPIRIN 81 MG PO SCH (08:26)
[2022-06-07] MEDS: PIOGLITAZONE 30 MG TAB PO SCH (08:26)
[2022-06-07] MEDS: TOPIRAMATE 25 MG TAB PO SCH ×2 (08:26→20:51)
[2022-06-07] MEDS: PANTOPRAZOLE 40 MG TABLET PO SCH (08:26)
[2022-06-07] MEDS: DOXYCYCLINE 100 MG CAP PO SCH ×2 (08:26→20:51)
[2022-06-07] MEDS: METOPROLOL SUCCINATE (ER) 50 MG TAB.ER.24H PO SCH (08:26)
[2022-06-07] MEDS: ISOSORBIDE MONONITRATE ER 15 MG TAB PO SCH (08:26)
[2022-06-07] MEDS: AMIODARONE 200 MG TAB PO SCH (08:26)
[2022-06-07] MEDS: GLIMEPIRIDE 4 MG TAB PO SCH (08:26)
[2022-06-07] MEDS: BACITRACIN ZINC 500 UNIT/GM OINT 28.4 GM TUBE TOPICAL SCH ×4 (08:32→22:43)
[2022-06-07 10:57] LABS: Anion Gap 9.5 mmol/L (10.00-18.00); BUN/Creat Ratio 18.33 Ratio (12.00-20.00); Blood Urea Nitrogen 19.8 mg/dL (9.0-27.0); Calcium 8.5 mg/dL (8.7-10.3); Carbon Dioxide 21.4 mmol/L (20.0-27.5); Non-African American GFR(CKD) 71.7 (60.0-200.0); Potassium 4.5 mmol/L (3.5-5.5)
[2022-06-07 11:35] LABS: Glucose,Whole Blood 210 mg/dL (70-110)
--- NOTE | 2022-06-07 11:39 | P.PN ---
Subjective 7-year-old male is seen with acute kidney injury secondary to combination of contrast use of Ruperto and nonsteroidals, and additionally outlet obstruction. Status post Gamble catheter with good urine output. Status post heart catheterization on 06/03/2022. No significant coronary artery disease. Complains of aches and pains all over. Asking to discontinue renal diet. Serum creatinine staying at about 1.2 mg/dL down to 1.1 today Objective - Vital Signs Vital signs: Vital Signs Temp 98.1 F 06/07/22 08:00 Pulse 56 L 06/07/22 08:00 Resp 18 06/07/22 08:00 BP 125/75 06/07/22 08:00 Pulse Ox 99 06/07/22 08:00 FiO2 Intake & Output 06/06/22 06/07/22 06/07/22 18:59 06:59 18:59 Intake Total 240 Output Total 100 850 210 Balance 140 -850 -210 Intake: Oral 240 Output: Urine 100 850 210 Uretheral (Gamble) 100 Other: Voiding Method Indwelling Catheter # Voids 0 - Exam On exam awake alert oriented comfortable HEENT exam no JVP neck is supple no facial asymmetry Lungs clear to auscultation good air entry bilaterally Heart sounds unremarkable no murmur rub gallop Abdomen soft nontender Extremity exam was no edema Neurologically awake alert oriented. - Labs CBC & Chem 7: 06/04/22 07:42 06/07/22 06:26 Labs: Abnormal Lab Results - Last 24 Hours (Table) 06/06/22 06/06/22 06/06/22 Range/Units 11:49 16:32 21:01 PT (9.0-12.0) sec INR (<1.2) Anion Gap (10.00-18.00) mmol/L POC Glucose (mg/dL) 186 H 155 H 231 H (70-110) mg/dL Calcium (8.7-10.3) mg/dL 06/07/22 06/07/22 06/07/22 Range/Units 06:26 06:26 11:34 PT 12.8 H (9.0-12.0) sec INR 1.3 H (<1.2) Anion Gap 9.50 L (10.00-18.00) mmol/L POC Glucose (mg/dL) 210 H (70-110) mg/dL Calcium 8.5 L (8.7-10.3) mg/dL Assessment and Plan Assessment: 1. Acute kidney injury secondary to ATN secondary to contrast-induced acute kidney injury and diuresis. Further worsened with the use of RUPERTO inhibitor and nonsteroidals. Patient received IV contrast on 05/28/2022. And on 06/03/2022 for cardiac catheterization. UA benign. No hydronephrosis noted on renal ultrasound. Serum creatinine staying at around 1.2 mg/dL 2. Cardiomyopathy with ejection fraction of 30%. ACS being ruled out. . Cardiology following. Had cardiac catheterization 06/03/2022 with no significant coronary artery disease noted 3. Diabetes mellitus. 4. Status post left AKA. 5. Urinary retention status post Gamble catheter placement. On Flomax. 6. Mild hyperkalemia secondary to acute kidney injury. Plan: Okay to discontinue renal diet Continue with RUPERTO inhibitor's Monitor labs periodically.
--- NOTE | 2022-06-07 14:26 | P.DS ---
Providers Date of admission: 05/28/22 14:58 Attending physician: Shadia Alvarez Consults: 05/29/22 15:29 Consult Physician Routine Consulting Provider: Sherman Ordoñez Consult Reason/Comments: cellulitis hand Do you want consulting provider notified?: Yes 06/01/22 13:30 Consult Physician Routine Consulting Provider: Pb Valenzuela Consult Reason/Comments: worsening kidney functions, chf Do you want consulting provider notified?: Yes Primary care physician: Stated None Hospital Course: Final Diagnosis Possible acute non-ST segment elevation myocardial infarction with elevated troponin however patient had normal coronary arteries on cardiac cath. Cleared by double ending machine operator Wound of the right ring finger with very minimal Cellulitis Acute kidney injury most likely contrast-induced nephropathy complicated by use of JEVON inhibitor and NSAIDs, improving Drug-seeking behavior and noncompliance with medication and recommendation Cardiomyopathy with ejection fraction 30% Mediastinal and bronchial lymphadenopathy emphysematous changes Continued ongoing nicotine dependence Chronic Atrial fibrillation, on Coumadin in the office - INR 1.2 History of asthma History of CVA/TIA Diabetes mellitus, type II, uncontrolled with hyper and hypoglycemia Gastroesophageal reflux disease Hyperlipidemia Hypertension History of PEs and DVTs GI prophylaxis DVT prophylaxis on warfarin Do not resuscitate/do not intubate Discharge Disposition Patient is stable for discharge to subacute rehab. INR today 1.3 and will continue on warfarin on discharge with INR monitoring. Patient will also discharge on pain management with pregabalin and tramadol. He is referred to pain management on discharge. Patient has also been started on flomax for urinary retention. Complete 10 days of antibiotic therapy with 2 more days of oral doxycycline. Patient will be resumed on lisinopril at decrease dose of 5 mg po daily, has been started on imdur, aspirin 81 mg po daily. Continues on Toprol and also on statin. Recommend to follow up with cardiology on discharge. Patient needs continued blood glucose monitoring and needs to follow up with primary care. Local wound care with aquacel per infectious disease and recommend to follow up with infectious disease on discharge for continued wound care. Hospital Course This is a 67 year old male with medical history of uncontrolled diabetes, chronic atrial fibrillation, cardiomyopathy with EF of 30%, Asthma, CVA/TIA, GERD, hypertension, hyperlipidemia, PE/DVT. He is left above the knee amputation. Patient presents with concern for chest pain. He had elevated D- Dimer which CTA was negative for PE. There is question whether he was supposed to be on eliquis or warfarin outpatient, he has been started on warfarin here as he had reported the eliquis was causing chest pain and was only taking it once daily. He was admitted with consult placed to cardiology. Troponin elevation at 0.045, 0.044, 0.046, [place] [address] on admission. Patient did develop acute kidney injury after receiving contrast and was evaluated by nephrology. His creatinine has normalized to 1.1. Echocardiogram completed showing EF 30% with global hypokinesis, mild MR, mild TR, no pericardial effusion, moderately dilated left atrium. Patient underwent cardiac cathterization revealing normal coronaries and has been optimized on medical therapy with aspirin, statin, toprol, lisinopril and is being anticoagulated with warfarin. He is also started on imdur. Cardiology will follow up outpatient. He also had wound to right ring and left middle finger that was evaluated by infectious disease. Patient was started on antibiotics for possible cellulitis with local wound care recommended to finger wound with dry aquacel silver changed every 48 hours. Redness has improved. No fever or white count. Patient does live independently and has been evaluated by physical therapy and is recommended for discharge to subacute rehab and patient is agreeable at this time. He reports improvement in lower extremity pain which is mostly neuropathic. Chest pain has improved, he is less lethargic. Stable for discharge. 06/07/2022 Patient evaluated today sitting up in chair. He is alert x 3, appropriate. He reports improvement in his lower extremity pain which is mostly neuropathic. He denies shortness of breath, denies chest pain. He is tolerating diet. He continues with indwelling catheter which has been placed for urinary retention. Currently creatinine today is 1.1. Sodium today 140, potassium 4.5, chloride 109, glucose in the 200s. Remains afebrile, heart rate 56, blood pressure 125/75, 99% room air. His lungs are clear, S1 S2 auscultated, regular rate and rhythm. He has been started on flomax. Can do voiding trial prior to discharge. Otherwise, medications have been adjusted with above mentioned recommendations. He is pending placement at subacute rehab. Recommend to follow up with nephrology, cardiology, Dr. Ordoñez. Establish care with primary care provider. Total time taken in discharge planning greater than 35 minutes. Please see medication reconciliation for a list of current medication. Thank you for allowing us to participate in the care of this patient. The impression and plan of care has been dictated by Birgit Russell, Nurse Practitioner as directed. Dr. Miguel MD I have performed a history and physical examination and medical decision making of this patient, discussed the same with the dictator, and agree with the dictators assessment and plan as written, documented as a scribe. Based on total visit time, I have performed more than 50% of this visit. Patient Condition at Discharge: Stable Plan - Discharge Summary New Discharge Prescriptions: New Aspirin 81 mg PO DAILY #30 tab INSULIN ASPART (NovoLOG) [NovoLOG (formulary)] 0 unit SQ ACHS each Bacitracin Zinc Oint 1 applic TOPICAL QID each Tamsulosin [Flomax] 0.4 mg PO PC-SUPPER #30 cap Isosorbide Mononitrate ER [Imdur] 15 mg PO DAILY #30 tab Pregabalin [Lyrica] 100 mg PO BID 15 Days #30 cap Acetaminophen Tab [Tylenol] 650 mg PO Q6HR PRN tab PRN Reason: Fever And/ Or Pain traMADol HCl [Ultram] 50 mg PO QID PRN 3 Days #12 tab PRN Reason: Pain/Discomfort Doxycycline [Vibramycin] 100 mg PO BID 2 Days #4 cap lisinopriL [Zestril] 5 mg PO DAILY #30 tab Continue Atorvastatin [Lipitor] 80 mg PO DIRECTED Topiramate [Topamax] 25 mg PO DIRECTED Omeprazole [PriLOSEC] 20 mg PO DIRECTED Loratadine 10 mg PO DIRECTED Metoprolol Succinate (ER) [Toprol XL] 50 mg PO DIRECTED Furosemide [Lasix] 40 mg PO DIRECTED Pioglitazone [Actos] 30 mg PO DIRECTED Potassium Chloride [Klor-Con 10 ER] 10 meq PO DIRECTED Glimepiride [Amaryl] 4 mg PO DIRECTED Amiodarone [Cordarone] 200 mg PO DIRECTED Warfarin [Coumadin] 3 mg PO DIRECTED Discontinued Nortriptyline [Pamelor] 50 mg PO DIRECTED Celecoxib [CeleBREX] 200 mg PO DIRECTED metFORMIN HCL 500 mg PO DIRECTED Pregabalin [Lyrica] 300 mg PO DIRECTED DULoxetine HCL [Cymbalta] 20 mg PO DIRECTED Ibuprofen [Advil] 400 mg PO Q6H PRN PRN Reason: Pain lisinopriL [Zestril] 10 mg PO DIRECTED Acetaminophen/Diphenhydramine [Tylenol PM 500-25mg] 1 - 2 tab PO QID PRN PRN Reason: Pain Discharge Medication List Atorvastatin [Lipitor] 80 mg PO DIRECTED 01/09/14 [History] Topiramate [Topamax] 25 mg PO DIRECTED 01/09/14 [History] Omeprazole [PriLOSEC] 20 mg PO DIRECTED 08/15/19 [History] Loratadine 10 mg PO DIRECTED 10/30/19 [History] Metoprolol Succinate (ER) [Toprol XL] 50 mg PO DIRECTED 02/29/20 [History] Pioglitazone [Actos] 30 mg PO DIRECTED 06/02/21 [History] Potassium Chloride [Klor-Con 10 ER] 10 meq PO DIRECTED 06/02/21 [History] Glimepiride [Amaryl] 4 mg PO DIRECTED 09/07/21 [History] Amiodarone [Cordarone] 200 mg PO DIRECTED 03/27/22 [History] Furosemide [Lasix] 40 mg PO DIRECTED 05/28/22 [History] Warfarin [Coumadin] 3 mg PO DIRECTED 05/28/22 [History] Acetaminophen Tab [Tylenol] 650 mg PO Q6HR PRN tab 06/07/22 [Rx] Aspirin 81 mg PO DAILY #30 tab 06/07/22 [Rx] Bacitracin Zinc Oint 1 applic TOPICAL QID each 06/07/22 [Rx] Doxycycline [Vibramycin] 100 mg PO BID 2 Days #4 cap 06/07/22 [Rx] INSULIN ASPART (NovoLOG) [NovoLOG (formulary)] 0 unit SQ ACHS each 06/07/22 [Rx] Isosorbide Mononitrate ER [Imdur] 15 mg PO DAILY #30 tab 06/07/22 [Rx] Pregabalin [Lyrica] 100 mg PO BID 15 Days #30 cap 06/07/22 [Rx] Tamsulosin [Flomax] 0.4 mg PO PC-SUPPER #30 cap 06/07/22 [Rx] lisinopriL [Zestril] 5 mg PO DAILY #30 tab 06/07/22 [Rx] traMADol HCl [Ultram] 50 mg PO QID PRN 3 Days #12 tab 06/07/22 [Rx] Follow up Appointment(s)/Referral(s): Camelia Dozier MD [STAFF PHYSICIAN] - 06/14/22 2:30 pm Duke Posadas MD [STAFF PHYSICIAN] - Vic Hayden MD [STAFF PHYSICIAN] - 1 Week Ambulatory/Diagnostic Orders: Basic Metabolic Panel [LAB.AMB] Time Frame: 3 Days, Location: None Selected Complete Blood Count w/diff [LAB.AMB] Location: None Selected Prothrombin Time INR [LAB.AMB] Time Frame: 2 Days, Location: None Selected Activity/Diet/Wound Care/Special Instructions: Take your ID, insurance card, list of medications to appointment with Dr. Ramos Patient cannot have home care until seen by new PCP - RN please send patient home with supplies for dressing changes. Finger wound - dry aquacel ag, change every 48hrs Patient is recommended for subacute rehab Needs to follow up with pain management as well. Discharge Disposition: TRANSFER TO SNF/ECF
[2022-06-07 16:40] LABS: Glucose,Whole Blood 105 mg/dL (70-110)
[2022-06-07] MEDS: TAMSULOSIN 0.4 MG CAP.ER.24H PO SCH (17:17)
[2022-06-07] MEDS ORDERED: WARFARIN 5 MG TAB PO ONE (18:00)
[2022-06-07 19:19] LABS: Glucose,Whole Blood 175 mg/dL (70-110)
[2022-06-07] MEDS: LORATADINE 10 MG TAB PO SCH (20:51)
[2022-06-07] MEDS: ATORVASTATIN 80 MG TAB PO SCH (20:51)
[2022-06-08] MEDS: traMADol 50 MG TAB PO PRN ×4 (02:33→20:52)
[2022-06-08 05:58] LABS: Glucose,Whole Blood 101 mg/dL (70-110)
[2022-06-08] MEDS: INSULIN ASPART (NovoLOG) 100 UNIT/ML VIAL SQ SCH ×4 (06:46→21:08)
[2022-06-08] MEDS: BACITRACIN ZINC 500 UNIT/GM OINT 28.4 GM TUBE TOPICAL SCH ×4 (07:28→21:09)
[2022-06-08] MEDS: METOPROLOL SUCCINATE (ER) 50 MG TAB.ER.24H PO SCH (07:29)
[2022-06-08] MEDS: GLIMEPIRIDE 4 MG TAB PO SCH (07:30)
[2022-06-08] MEDS: ISOSORBIDE MONONITRATE ER 15 MG TAB PO SCH (07:30)
[2022-06-08] MEDS: PREGABALIN 100 MG CAP PO SCH ×2 (07:30→20:49)
[2022-06-08] MEDS: AMIODARONE 200 MG TAB PO SCH (07:30)
[2022-06-08] MEDS: PANTOPRAZOLE 40 MG TABLET PO SCH (07:30)
[2022-06-08] MEDS: ASPIRIN 81 MG PO SCH (07:30)
[2022-06-08] MEDS: TOPIRAMATE 25 MG TAB PO SCH ×2 (07:31→20:49)
[2022-06-08] MEDS: DOXYCYCLINE 100 MG CAP PO SCH ×2 (07:31→20:49)
[2022-06-08] MEDS: PIOGLITAZONE 30 MG TAB PO SCH (07:31)
[2022-06-08] MEDS: lisinopriL 5 MG TAB PO SCH (07:31)
[2022-06-08 07:37] LABS: Glucose,Whole Blood 92 mg/dL (70-110)
[2022-06-08 08:16] LABS: INR 1.3 (<1.2); Prothrombin Time 13.3 sec (9.0-12.0)
[2022-06-08] MEDS: IPRATROPIUM-ALBUTEROL 3 ML NEB INHALATION SCH ×3 (08:35→19:52)
[2022-06-08 10:48] LABS: Glucose,Whole Blood 179 mg/dL (70-110)
--- NOTE | 2022-06-08 11:40 | P.DS ---
Providers Date of admission: 05/28/22 14:58 Attending physician: Shadia Alvarez Consults: 05/29/22 15:29 Consult Physician Routine Consulting Provider: Sherman Ordoñez Consult Reason/Comments: cellulitis hand Do you want consulting provider notified?: Yes 06/01/22 13:30 Consult Physician Routine Consulting Provider: Pb Valenzuela Consult Reason/Comments: worsening kidney functions, chf Do you want consulting provider notified?: Yes Primary care physician: Stated None Hospital Course: Final Diagnosis Possible acute non-ST segment elevation myocardial infarction with elevated troponin however patient had normal coronary arteries on cardiac cath. Cleared by asset protection manager Wound of the right ring finger with very minimal Cellulitis Acute kidney injury most likely contrast-induced nephropathy complicated by use of JEVON inhibitor and NSAIDs, improving Drug-seeking behavior and noncompliance with medication and recommendation Cardiomyopathy with ejection fraction 30% Mediastinal and bronchial lymphadenopathy emphysematous changes Continued ongoing nicotine dependence Chronic Atrial fibrillation, on Coumadin in the office - INR 1.3 History of asthma History of CVA/TIA Diabetes mellitus, type II, uncontrolled with hyper and hypoglycemia Gastroesophageal reflux disease Hyperlipidemia Hypertension History of PEs and DVTs GI prophylaxis DVT prophylaxis on warfarin Do not resuscitate/do not intubate Discharge Disposition Patient is stable for discharge to subacute rehab. INR today 1.3 and will continue on warfarin on discharge with INR monitoring. Patient will also discharge on pain management with pregabalin and tramadol. He is referred to pain management on discharge. Patient has also been started on flomax for urinary retention. Complete 10 days of antibiotic therapy with 2 more days of oral doxycycline. Patient will be resumed on lisinopril at decrease dose of 5 mg po daily, has been started on imdur, aspirin 81 mg po daily. Continues on Toprol and also on statin. Recommend to follow up with cardiology on discharge. Patient needs continued blood glucose monitoring and needs to follow up with primary care. Local wound care with aquacel per infectious disease and recommend to follow up with infectious disease on discharge for continued wound care. Hospital Course This is a 67 year old male with medical history of uncontrolled diabetes, chronic atrial fibrillation, cardiomyopathy with EF of 30%, Asthma, CVA/TIA, GERD, hypertension, hyperlipidemia, PE/DVT. He is left above the knee amputation. Patient presents with concern for chest pain. He had elevated D- Dimer which CTA was negative for PE. There is question whether he was supposed to be on eliquis or warfarin outpatient, he has been started on warfarin here as he had reported the eliquis was causing chest pain and was only taking it once daily. He was admitted with consult placed to cardiology. Troponin elevation at 0.045, 0.044, 0.046, [place] [id number] [place]. Patient did develop acute kidney injury after receiving contrast and was evaluated by nephrology. His creatinine has normalized to 1.1. Echocardiogram completed showing EF 30% with global hypokinesis, mild MR, mild TR, no pericardial effusion, moderately dilated left atrium. Patient underwent cardiac cathterization revealing normal coronaries and has been optimized on medical therapy with aspirin, statin, toprol, lisinopril and is being anticoagulated with warfarin. He is also started on imdur. Cardiology will follow up outpatient. He also had wound to right ring and left middle finger that was evaluated by infectious disease. Patient was started on antibiotics for possible cellulitis with local wound care recommended to finger wound with dry aquacel silver changed every 48 hours. Redness has improved. No fever or white count. Patient does live independently and has been evaluated by physical therapy and is recommended for discharge to subacute rehab and patient is agreeable at this time. He reports improvement in lower extremity pain which is mostly neuropathic. Chest pain has improved, he is less lethargic. Stable for discharge. 06/07/2022 Patient evaluated today sitting up in chair. He is alert x 3, appropriate. He reports improvement in his lower extremity pain which is mostly neuropathic. He denies shortness of breath, denies chest pain. He is tolerating diet. He continues with indwelling catheter which has been placed for urinary retention. Currently creatinine today is 1.1. Sodium today 140, potassium 4.5, chloride 109, glucose in the 200s. Remains afebrile, heart rate 56, blood pressure 125/75, 99% room air. His lungs are clear, S1 S2 auscultated, regular rate and rhythm. He has been started on flomax. Can do voiding trial prior to discharge. Otherwise, medications have been adjusted with above mentioned recommendations. He is pending placement at subacute rehab. Recommend to follow up with nephrology, cardiology, Dr. Ordoñez. Establish care with primary care provider. 06/08/2022 Patient is evaluated today sitting up in wheel chair. He is alert x 3, appropriate. Altered mentation has improved. He reports no chest pain, no shortness of breath. Has some improvement in his neuropathic leg pain and reports the tramadol helping when he is receiving it. Recommend to see pain management on discharge. Patient reports not sleeping well last night. Melatonin has been added. His lungs are clear today, S1 S2 auscultated. Abdomen is soft and nontender. Focal neurological exam is negative. Left AKA noted. He has local wound care to right ring finger with dry aquacel. Needs to follow up with wound care services. INR today 1.3. Remains afebrile, heart rate 53, blood pressure 135/66, 96% room air. Patient is stable for discharge to subacute rehab today. Total time taken in discharge planning greater than 35 minutes. Please see medication reconciliation for a list of current medication. Thank you for allowing us to participate in the care of this patient. The impression and plan of care has been dictated by Birgit Russell, Nurse Practitioner as directed. Dr. Miguel MD I have performed a history and physical examination and medical decision making of this patient, discussed the same with the dictator, and agree with the dictators assessment and plan as written, documented as a scribe. Based on total visit time, I have performed more than 50% of this visit. Patient Condition at Discharge: Stable Plan - Discharge Summary New Discharge Prescriptions: New Aspirin 81 mg PO DAILY #30 tab INSULIN ASPART (NovoLOG) [NovoLOG (formulary)] 0 unit SQ ACHS each Melatonin [Melatonin ER] 10 mg PO HS #30 tab Bacitracin Zinc Oint 1 applic TOPICAL QID each Tamsulosin [Flomax] 0.4 mg PO PC-SUPPER #30 cap Isosorbide Mononitrate ER [Imdur] 15 mg PO DAILY #30 tab Pregabalin [Lyrica] 100 mg PO BID 15 Days #30 cap Acetaminophen Tab [Tylenol] 650 mg PO Q6HR PRN tab PRN Reason: Fever And/ Or Pain traMADol HCl [Ultram] 50 mg PO QID PRN 3 Days #12 tab PRN Reason: Pain/Discomfort Doxycycline [Vibramycin] 100 mg PO BID 2 Days #4 cap lisinopriL [Zestril] 5 mg PO DAILY #30 tab Continue Atorvastatin [Lipitor] 80 mg PO DIRECTED Topiramate [Topamax] 25 mg PO DIRECTED Omeprazole [PriLOSEC] 20 mg PO DIRECTED Loratadine 10 mg PO DIRECTED Metoprolol Succinate (ER) [Toprol XL] 50 mg PO DIRECTED Furosemide [Lasix] 40 mg PO DIRECTED Pioglitazone [Actos] 30 mg PO DIRECTED Potassium Chloride [Klor-Con 10 ER] 10 meq PO DIRECTED Glimepiride [Amaryl] 4 mg PO DIRECTED Amiodarone [Cordarone] 200 mg PO DIRECTED Warfarin [Coumadin] 3 mg PO DIRECTED Discontinued Nortriptyline [Pamelor] 50 mg PO DIRECTED Celecoxib [CeleBREX] 200 mg PO DIRECTED metFORMIN HCL 500 mg PO DIRECTED Pregabalin [Lyrica] 300 mg PO DIRECTED DULoxetine HCL [Cymbalta] 20 mg PO DIRECTED Ibuprofen [Advil] 400 mg PO Q6H PRN PRN Reason: Pain lisinopriL [Zestril] 10 mg PO DIRECTED Acetaminophen/Diphenhydramine [Tylenol PM 500-25mg] 1 - 2 tab PO QID PRN PRN Reason: Pain Discharge Medication List Atorvastatin [Lipitor] 80 mg PO DIRECTED 01/09/14 [History] Topiramate [Topamax] 25 mg PO DIRECTED 01/09/14 [History] Omeprazole [PriLOSEC] 20 mg PO DIRECTED 08/15/19 [History] Loratadine 10 mg PO DIRECTED 10/30/19 [History] Metoprolol Succinate (ER) [Toprol XL] 50 mg PO DIRECTED 02/29/20 [History] Pioglitazone [Actos] 30 mg PO DIRECTED 06/02/21 [History] Potassium Chloride [Klor-Con 10 ER] 10 meq PO DIRECTED 06/02/21 [History] Glimepiride [Amaryl] 4 mg PO DIRECTED 09/07/21 [History] Amiodarone [Cordarone] 200 mg PO DIRECTED 03/27/22 [History] Furosemide [Lasix] 40 mg PO DIRECTED 05/28/22 [History] Warfarin [Coumadin] 3 mg PO DIRECTED 05/28/22 [History] Acetaminophen Tab [Tylenol] 650 mg PO Q6HR PRN tab 06/07/22 [Rx] Aspirin 81 mg PO DAILY #30 tab 06/07/22 [Rx] Bacitracin Zinc Oint 1 applic TOPICAL QID each 06/07/22 [Rx] Doxycycline [Vibramycin] 100 mg PO BID 2 Days #4 cap 06/07/22 [Rx] INSULIN ASPART (NovoLOG) [NovoLOG (formulary)] 0 unit SQ ACHS each 06/07/22 [Rx] Isosorbide Mononitrate ER [Imdur] 15 mg PO DAILY #30 tab 06/07/22 [Rx] Pregabalin [Lyrica] 100 mg PO BID 15 Days #30 cap 06/07/22 [Rx] Tamsulosin [Flomax] 0.4 mg PO PC-SUPPER #30 cap 06/07/22 [Rx] lisinopriL [Zestril] 5 mg PO DAILY #30 tab 06/07/22 [Rx] traMADol HCl [Ultram] 50 mg PO QID PRN 3 Days #12 tab 06/07/22 [Rx] Melatonin [Melatonin ER] 10 mg PO HS #30 tab 06/08/22 [Rx] Follow up Appointment(s)/Referral(s): Duke Posadas MD [STAFF PHYSICIAN] - Vic Hayden MD [STAFF PHYSICIAN] - 1 Week Camelia Dozier MD [STAFF PHYSICIAN] - 06/14/22 2:30 pm Pb Valenzuela DO [STAFF PHYSICIAN] - 1 Week hSerman Ordoñez MD [STAFF PHYSICIAN] - 1 Week Joshua Heaton MD [STAFF PHYSICIAN] - 1 Week Ambulatory/Diagnostic Orders: Basic Metabolic Panel [LAB.AMB] Time Frame: 3 Days, Location: None Selected Complete Blood Count w/diff [LAB.AMB] Location: None Selected Prothrombin Time INR [LAB.AMB] Time Frame: 2 Days, Location: None Selected Activity/Diet/Wound Care/Special Instructions: Take your ID, insurance card, list of medications to appointment with Dr. Ramos Patient cannot have home care until seen by new PCP - RN please send patient home with supplies for dressing changes. Finger wound - dry aquacel ag, change every 48hrs Patient is recommended for subacute rehab Needs to follow up with pain management as well. Follow up at [facility] wound care Patient will be discharged to subacute rehab [place], wound recommend patient to follow up with pain management services Discharge Disposition: TRANSFER TO SNF/ECF
--- NOTE | 2022-06-08 12:28 | P.PN ---
Subjective 7-year-old male is seen with acute kidney injury secondary to combination of contrast use of Ruperto and nonsteroidals, and additionally outlet obstruction. Status post Gamble catheter with good urine output. Status post heart catheterization on 06/03/2022. No significant coronary artery disease. Plans for discharge today Serum creatinine staying at about 1.2 mg/dL down to 1.1 yesterday Objective - Vital Signs Vital signs: Vital Signs Temp 98.3 F 06/08/22 07:55 Pulse 53 L 06/08/22 07:55 Resp 12 06/08/22 07:55 BP 135/66 06/08/22 07:55 Pulse Ox 96 06/08/22 07:55 FiO2 Intake & Output 06/07/22 06/08/22 06/08/22 18:59 06:59 18:59 Output Total 430 1100 Balance -430 -1100 Weight 96.9 kg Output: Urine 430 1100 Other: Voiding Method Indwelling Catheter Urinal - Exam On exam awake alert oriented comfortable HEENT exam no JVP neck is supple no facial asymmetry Lungs clear to auscultation good air entry bilaterally Heart sounds unremarkable no murmur rub gallop Abdomen soft nontender Extremity exam was no edema. Left AKA Neurologically awake alert oriented. - Labs CBC & Chem 7: 06/04/22 07:42 06/07/22 06:26 Labs: Abnormal Lab Results - Last 24 Hours (Table) 06/07/22 06/08/22 06/08/22 Range/Units 19:19 06:09 10:46 PT 13.3 H (9.0-12.0) sec INR 1.3 H (<1.2) POC Glucose (mg/dL) 175 H 179 H (70-110) mg/dL Assessment and Plan Assessment: 1. Acute kidney injury secondary to ATN secondary to contrast-induced acute kid lesia injury and diuresis. Further worsened with the use of RUPERTO inhibitor and nonsteroidals. Patient received IV contrast on 05/28/2022. And on 06/03/2022 for cardiac catheterization. UA benign. No hydronephrosis noted on renal ultrasound. Serum creatinine staying at around 1.2 mg/dL 2. Cardiomyopathy with ejection fraction of 30%. ACS being ruled out. . Cardiology following. Had cardiac catheterization 06/03/2022 with no significant coronary artery disease noted 3. Diabetes mellitus. 4. Status post left AKA. 5. Urinary retention status post Gamble catheter placement. On Flomax. 6. Mild hyperkalemia secondary to acute kidney injury. Plan: Continue with RUPERTO inhibitor's Monitor labs periodically.
[2022-06-08 15:48] LABS: Glucose,Whole Blood 94 mg/dL (70-110)
[2022-06-08] MEDS: TAMSULOSIN 0.4 MG CAP.ER.24H PO SCH (17:37)
[2022-06-08] MEDS ORDERED: WARFARIN 3 MG TAB PO ONE (18:00)
[2022-06-08 19:57] LABS: Glucose,Whole Blood 194 mg/dL (70-110)
[2022-06-08] MEDS: LORATADINE 10 MG TAB PO SCH (20:48)
[2022-06-08] MEDS: ATORVASTATIN 80 MG TAB PO SCH (20:48)
[2022-06-08] MEDS ORDERED: TEMAZEPAM 7.5 MG CAP PO ONE (21:10)
[2022-06-09] MEDS: traMADol 50 MG TAB PO PRN ×3 (05:27→21:14)
[2022-06-09 06:09] LABS: Glucose,Whole Blood 77 mg/dL (70-110)
[2022-06-09] MEDS: INSULIN ASPART (NovoLOG) 100 UNIT/ML VIAL SQ SCH ×4 (06:23→21:18)
[2022-06-09] MEDS: IPRATROPIUM-ALBUTEROL 3 ML NEB INHALATION SCH ×3 (07:41→19:08)
[2022-06-09 08:00] LABS: INR 1.4 (<1.2); Prothrombin Time 14.5 sec (9.0-12.0)
[2022-06-09] MEDS: DOXYCYCLINE 100 MG CAP PO SCH ×2 (09:32→21:15)
[2022-06-09] MEDS: ASPIRIN 81 MG PO SCH (09:32)
[2022-06-09] MEDS: ISOSORBIDE MONONITRATE ER 15 MG TAB PO SCH (09:33)
[2022-06-09] MEDS: GLIMEPIRIDE 4 MG TAB PO SCH (09:33)
[2022-06-09] MEDS: lisinopriL 5 MG TAB PO SCH (09:33)
[2022-06-09] MEDS: AMIODARONE 200 MG TAB PO SCH (09:33)
[2022-06-09] MEDS: PIOGLITAZONE 30 MG TAB PO SCH (09:34)
[2022-06-09] MEDS: PREGABALIN 100 MG CAP PO SCH ×2 (09:34→21:14)
[2022-06-09] MEDS: PANTOPRAZOLE 40 MG TABLET PO SCH (09:34)
[2022-06-09] MEDS: METOPROLOL SUCCINATE (ER) 50 MG TAB.ER.24H PO SCH (09:34)
[2022-06-09] MEDS: TOPIRAMATE 25 MG TAB PO SCH ×2 (09:34→21:15)
[2022-06-09] MEDS: BACITRACIN ZINC 500 UNIT/GM OINT 28.4 GM TUBE TOPICAL SCH ×4 (09:45→22:47)
[2022-06-09 11:24] LABS: Glucose,Whole Blood 190 mg/dL (70-110)
--- NOTE | 2022-06-09 12:57 | P.PN ---
Subjective Progress Note Date: 06/09/22 This is a 67-year-old male who was recently admitted with chest pain, unstable angina with vascular cellulitis and being closely monitored with cardiology following closely. Plan is for cardiac catheterization in the a.m. Initially patient was scheduled for cardiac catheterization today although kidney functions slightly worsened and creatinine today is 1.59. Patient also more lethargic today and will adjust medications. Patient was placed back on heparin drip and will await cardiology report. Most recent EF is 30%. Patient is afebrile denies shortness of breath or palpitations. Patient denies nausea or vomiting and is tolerating diet. Patient was placed on gentle IV hydration and will follow-up with repeat labs in a.m. 06/01/2022 Patient is seen in follow-up today being followed by cardiology and was tentatively scheduled for cardiac catheterization today although kidney functio ns continue to be elevated and currently and kidneys with low blood pressure. Patient does have history of heart failure and recommend gentle IV hydration with follow-up labs. Blood pressure has been on the softer side and normally takes lisinopril although will hold and follow-up and will watch the labs closely. Nephrology consultation and appreciate input and recommendations. Patient continues to have retention and has been requiring straight catheterization. Patient normally takes Flomax and will continue and will also recommend indwelling Gamble catheter. Patient is continued on IV heparin and plans for possible cardiac catheterization this Monday. Continue telemetry monitoring. Encouraged oral intake and increased activity as tolerated. Patient more alert and awake today than yesterday. Patient is afebrile denies chest pain or worsening shortness of breath. No reports of nausea or vomiting and patient is tolerating diet. 06/02/2022 Subjective Patient was resting in bed with no chest pain or tachypnea or dyspnea. He was complaining of from his right ring Finger but he has small wound at the proximal interphalangeal joint with no significant surrounding cellulitis. He was on room air. Gamble catheter in a Place. Patient requesting for pain medication for his right leg, MAPS was checked on the last time he got Percocet 10 mg prescribed for him was 11/17/2021 for aurelia ntity of 12 for 3 days. We going to start gabapentin Patient will plan to undergo cardiac cath on Monday because of his worsening kidney function, trade show coordinator and diet counselor on the case. He has history of left BKA Distal on heparin drip and normal saline 06/03/2022 patient lying in bed comfortable complains from no chest pain and he kept on heparin drip with cardiology planned for cardiac cath Pantry Worker also on the case for trending up creatinine and today went up 1.4 and 21.6. No oliguria. Blood pressure is borderline 98/56 however patient is asymptomatic. Patient for his right foot pain which is changed To Neurontin. Right finger infection is very minimal on the small wound. Patient remains on doxycycline Also patient is in normal sinus 50 mL/h 06/05/2022 Today patient was more upset about his care and pain medication, he was asking for Percocet stating that his PCP prescribed for him. Last night the on-call physician ordered Percocet [id number]. MAPS was checked last time Percocet was prescribed for him was last November that's about 6 months ago. I explained for him the risks and benefits of this medication and the risk including respiratory depression and/or and the risk of addiction, patient this and carefully but still refusing the care and he refuses examination and to answer my questions MAPS was rechecked again today, last prescription for Percocet 10-to 325 mg was on 11/17/2021 quantity 12 tablets for 3 days, and the one before that was on 08/31/2021 quantity 90 tablets for 22 days. No more Percocet prescription or other narcotics since 11/2021 as above. Therefore risk of this medication more than benefits however patient still focused on getting Percocet specifically. He states that this is for his right leg pain However patient refused exam We going to increase gabapentin 100 mg up to 300 mg 3 times a day Labs from yesterday noted including potassium of 5.2 and creatinine 1.2 Pantry Worker on the case and adjusted his blood pressure medication. 06/06/2022 Patient resting in bed today, continues to report significant achy 10/10 pain to his right lower extremity and also left AKA. He is requesting oral narcotics. Patient does report he was discharged from his primary care office and also pain management services he was seeing out in [place] due to not showing up for office visits. Reports that no one is refilling his medications for him outpatient. He would benefit from establish with pain management services locally.Received xanax this morning and is sedated. Unable to finish conversation or keep eyes open long enough to carry a conversation. Falling asleep mid sentence. Xanax will be stopped. Indwelling catheter can also be discontinued today. On warfarin, INR today 1.2. 06/09/2022 Patient is seen and evaluated in follow-up today continues with significant weakness awaiting insurance authorization for ECF. Cardiology following recommend close outpatient follow-up and continue with current cardiac medications. Patient is maintained on Coumadin and INR is 1.4 today. Recommend Accu-Cheks before meals and at bedtime and continue with current medication regimen. Physical therapy to reevaluate the patient today. Patient is afebrile denies chest pain or shortness of breath. No reports of nausea or vomiting noted and patient is tolerating diet. Working with insurance authorization and peer to peer is requested. Awaiting updated therapy notes. Review of Systems Constitutional: Denied any fatigue denied any fever. Cardio vascular: denied any chest pain, palpitations Gastrointestinal: denied any nausea, vomiting, diarrhea Pulmonary: Denied any shortness of breath cough Neurologic denied any new focal deficits All inpatient medications were reviewed and appropriate changes in these medications as dictated in the interval history and assessment and plan PHYSICAL EXAMINATION: GENERAL: The patient is alert and oriented x3, not in any acute distress. Well developed, well nourished. HEENT: Pupils are round and equally reacting to light. EOMI. No scleral icterus. No conjunctival pallor. Normocephalic, atraumatic. No pharyngeal erythema. No thyromegaly. CARDIOVASCULAR: S1 and S2 muffled PULMONARY: Diminished breath sounds bilaterally with no wheezing or crackles. ABDOMEN: Soft, nontender, nondistended, normoactive bowel sounds. No palpable organomegaly. MUSCULOSKELETAL: No joint swelling or deformity. EXTREMITIES: No cyanosis, clubbing, or pedal edema. Left AKA. NEUROLOGICAL: Gross neurological examination did not reveal any focal deficits. SKIN: No rashes. Assessment: Possible acute non-ST segment elevation myocardial infarction with elevated troponin however patient had normal coronary arteries on cardiac cath. Cleared by diet counselor Wound of the right ring finger with very minimal Cellulitis Acute kidney injury most likely contrast-induced nephropathy complicated by use of JEVON inhibitor and NSAIDs, improving Drug-seeking behavior and noncompliance with medication and recommendation Cardiomyopathy with ejection fraction 30% Mediastinal and bronchial lymphadenopathy emphysematous changes Continued ongoing nicotine dependence Chronic Atrial fibrillation, on Coumadin History of asthma History of CVA/TIA Diabetes mellitus, type II, uncontrolled with hyper and hypoglycemia Gastroesophageal reflux disease Hyperlipidemia Hypertension History of PEs and DVTs GI prophylaxis DVT prophylaxis on warfarin Do not resuscitate/do not intubate Plan: Continue with aspirin 81 mg, warfarin, INR is 1.4 today with pharmacy to dose On metoprolol, atorvastatin, lisinopril resumed Monitor kidney function, nephrology following Continue with oral doxycycline, ID following Continue sliding scale and Accu-Cheks before meals and at bedtime, recommend holding metformin Referral to PCP and pain management on D/C Avoid RETAIL ACCOUNT EXECUTIVE and narcotic agents if possible Possible D/C in the next 24-48 hours Awaiting physical therapy evaluation today and updated notes Case management is following and working on insurance authorization. Insurance requesting a peer to peer and currently planning for ECF The impression and plan of care has been dictated by Rashida Peterson, Nurse Practitioner as directed. Dr. Antonio MD I have performed a history and examination and MDM of this patient, discussed the same with the dictator, and agree with the dictator's assessment and plan as written ,documented as a scribe. Based on total visit time, I have performed more than 50% of the visit. Objective - Vital Signs Vital signs: Vital Signs Temp 98.1 F 06/09/22 07:41 Pulse 57 L 06/09/22 07:41 Resp 17 06/09/22 07:41 BP 127/69 06/09/22 07:41 Pulse Ox 97 06/09/22 07:41 FiO2 Intake & Output 06/08/22 06/09/22 06/09/22 18:59 06:59 18:59 Intake Total 1000 Output Total 1250 1700 Balance -250 -1700 Weight 103 kg Intake: Oral 1000 Output: Urine 1250 1700 Other: Voiding Method Urinal - Labs CBC & Chem 7: 06/04/22 07:42 06/07/22 06:26 Labs: Abnormal Lab Results - Last 24 Hours (Table) 06/08/22 06/09/22 06/09/22 Range/Units 19:55 06:50 11:20 PT 14.5 H (9.0-12.0) sec INR 1.4 H (<1.2) POC Glucose (mg/dL) 194 H 190 H (70-110) mg/dL
[2022-06-09 16:36] LABS: Glucose,Whole Blood 125 mg/dL (70-110)
[2022-06-09] MEDS: TAMSULOSIN 0.4 MG CAP.ER.24H PO SCH (17:57)
[2022-06-09] MEDS ORDERED: WARFARIN 3 MG TAB PO ONE (18:00)
[2022-06-09 19:17] LABS: Glucose,Whole Blood 331 mg/dL (70-110)
[2022-06-09] MEDS: ATORVASTATIN 80 MG TAB PO SCH (21:15)
[2022-06-09] MEDS: LORATADINE 10 MG TAB PO SCH (21:15)
[2022-06-09 21:19] LABS: Glucose,Whole Blood 133 mg/dL (70-110)
[2022-06-09 21:23] LABS: Glucose,Whole Blood 141 mg/dL (70-110)
[2022-06-10 05:52] LABS: INR 2.1 (<1.2); Prothrombin Time 20.3 sec (9.0-12.0)
[2022-06-10 06:13] LABS: Glucose,Whole Blood 83 mg/dL (70-110)
[2022-06-10] MEDS: INSULIN ASPART (NovoLOG) 100 UNIT/ML VIAL SQ SCH ×4 (06:36→21:34)
[2022-06-10] MEDS: IPRATROPIUM-ALBUTEROL 3 ML NEB INHALATION SCH ×3 (07:19→20:56)
[2022-06-10] MEDS: GLIMEPIRIDE 4 MG TAB PO SCH (09:38)
[2022-06-10] MEDS: lisinopriL 5 MG TAB PO SCH (09:38)
[2022-06-10] MEDS: PREGABALIN 100 MG CAP PO SCH ×2 (09:38→21:33)
[2022-06-10] MEDS: ISOSORBIDE MONONITRATE ER 15 MG TAB PO SCH (09:38)
[2022-06-10] MEDS: AMIODARONE 200 MG TAB PO SCH (09:38)
[2022-06-10] MEDS: ASPIRIN 81 MG PO SCH (09:38)
[2022-06-10] MEDS: METOPROLOL SUCCINATE (ER) 50 MG TAB.ER.24H PO SCH (09:38)
[2022-06-10] MEDS: DOXYCYCLINE 100 MG CAP PO SCH (09:38)
[2022-06-10] MEDS: TOPIRAMATE 25 MG TAB PO SCH ×2 (09:38→21:55)
[2022-06-10] MEDS: PANTOPRAZOLE 40 MG TABLET PO SCH (09:38)
[2022-06-10] MEDS: PIOGLITAZONE 30 MG TAB PO SCH (09:38)
[2022-06-10] MEDS: traMADol 50 MG TAB PO PRN ×3 (09:40→21:33)
[2022-06-10] MEDS: BACITRACIN ZINC 500 UNIT/GM OINT 28.4 GM TUBE TOPICAL SCH ×4 (09:40→21:55)
[2022-06-10 11:26] LABS: Glucose,Whole Blood 85 mg/dL (70-110)
--- NOTE | 2022-06-10 14:52 | P.PN ---
Subjective Progress Note Date: 06/10/22 This is a 67-year-old male who was recently admitted with chest pain, unstable angina with vascular cellulitis and being closely monitored with cardiology following closely. Plan is for cardiac catheterization in the a.m. Initially patient was scheduled for cardiac catheterization today although kidney functions slightly worsened and creatinine today is 1.59. Patient also more lethargic today and will adjust medications. Patient was placed back on heparin drip and will await cardiology report. Most recent EF is 30%. Patient is afebrile denies shortness of breath or palpitations. Patient denies nausea or vomiting and is tolerating diet. Patient was placed on gentle IV hydration and will follow-up with repeat labs in a.m. 06/01/2022 Patient is seen in follow-up today being followed by cardiology and was tentatively scheduled for cardiac catheterization today although kidney functio ns continue to be elevated and currently and kidneys with low blood pressure. Patient does have history of heart failure and recommend gentle IV hydration with follow-up labs. Blood pressure has been on the softer side and normally takes lisinopril although will hold and follow-up and will watch the labs closely. Nephrology consultation and appreciate input and recommendations. Patient continues to have retention and has been requiring straight catheterization. Patient normally takes Flomax and will continue and will also recommend indwelling Gamble catheter. Patient is continued on IV heparin and plans for possible cardiac catheterization this Monday. Continue telemetry monitoring. Encouraged oral intake and increased activity as tolerated. Patient more alert and awake today than yesterday. Patient is afebrile denies chest pain or worsening shortness of breath. No reports of nausea or vomiting and patient is tolerating diet. 06/02/2022 Subjective Patient was resting in bed with no chest pain or tachypnea or dyspnea. He was complaining of from his right ring Finger but he has small wound at the proximal interphalangeal joint with no significant surrounding cellulitis. He was on room air. Gamble catheter in a Place. Patient requesting for pain medication for his right leg, MAPS was checked on the last time he got Percocet 10 mg prescribed for him was 11/17/2021 for aurelia ntity of 12 for 3 days. We going to start gabapentin Patient will plan to undergo cardiac cath on Monday because of his worsening kidney function, labor relations worker and hotel attendant on the case. He has history of left BKA Distal on heparin drip and normal saline 06/03/2022 patient lying in bed comfortable complains from no chest pain and he kept on heparin drip with cardiology planned for cardiac cath Vegetable Harvest Worker also on the case for trending up creatinine and today went up 1.4 and 21.6. No oliguria. Blood pressure is borderline 98/56 however patient is asymptomatic. Patient for his right foot pain which is changed To Neurontin. Right finger infection is very minimal on the small wound. Patient remains on doxycycline Also patient is in normal sinus 50 mL/h 06/05/2022 Today patient was more upset about his care and pain medication, he was asking for Percocet stating that his PCP prescribed for him. Last night the on-call physician ordered Percocet [id number]. MAPS was checked last time Percocet was prescribed for him was last November that's about 6 months ago. I explained for him the risks and benefits of this medication and the risk including respiratory depression and/or and the risk of addiction, patient this and carefully but still refusing the care and he refuses examination and to answer my questions MAPS was rechecked again today, last prescription for Percocet 10-to 325 mg was on 11/17/2021 quantity 12 tablets for 3 days, and the one before that was on 08/31/2021 quantity 90 tablets for 22 days. No more Percocet prescription or other narcotics since 11/2021 as above. Therefore risk of this medication more than benefits however patient still focused on getting Percocet specifically. He states that this is for his right leg pain However patient refused exam We going to increase gabapentin 100 mg up to 300 mg 3 times a day Labs from yesterday noted including potassium of 5.2 and creatinine 1.2 Vegetable Harvest Worker on the case and adjusted his blood pressure medication. 06/06/2022 Patient resting in bed today, continues to report significant achy 10/10 pain to his right lower extremity and also left AKA. He is requesting oral narcotics. Patient does report he was discharged from his primary care office and also pain management services he was seeing out in [place] due to not showing up for office visits. Reports that no one is refilling his medications for him outpatient. He would benefit from establish with pain management services locally.Received xanax this morning and is sedated. Unable to finish conversation or keep eyes open long enough to carry a conversation. Falling asleep mid sentence. Xanax will be stopped. Indwelling catheter can also be discontinued today. On warfarin, INR today 1.2. 06/09/2022 Patient is seen and evaluated in follow-up today continues with significant weakness awaiting insurance authorization for ECF. Cardiology following recommend close outpatient follow-up and continue with current cardiac medications. Patient is maintained on Coumadin and INR is 1.4 today. Recommend Accu-Cheks before meals and at bedtime and continue with current medication regimen. Physical therapy to reevaluate the patient today. Patient is afebrile denies chest pain or shortness of breath. No reports of nausea or vomiting noted and patient is tolerating diet. Working with insurance authorization and peer to peer is requested. Awaiting updated therapy notes. 06/10/2022 Patient is seen and evaluated in follow-up today currently working with physical therapy and agreeable to. Patient continues with significant weakness and would highly benefit from rehab. Patient with chronic pain and also some pain seeking behaviors being referred to pain management outpatient. Patient has noncompliance with medications and follow-up appointments which has resulted in medication noncompliance as well. Patient is maintained on Lyrica along with Ultram and reports his pain is controlled at this current moment. Patient was taking large doses of Percocet in the past and has been weaned off of this. Patient does have tendency to request higher dose pain medications although becomes altered and lethargic, hence the reason that occasion were reduced and this was discussed with the patient. Patient reports his pain is chronically 9 or 10 out of 10 on the pain scale. Patient will need outpatient pain management follow-up and is agreeable with this. Reports to having some difficulty in sleeping and will add low-dose Restoril as needed. Patient Is afebrile denies chest pain or shortness of breath and is tolerating diet with no reports of nausea or vomiting noted. Review of Systems Constitutional: Denied any fatigue denied any fever. Cardio vascular: denied any chest pain, palpitations Gastrointestinal: denied any nausea, vomiting, diarrhea Pulmonary: Denied any shortness of breath cough Neurologic denied any new focal deficits, reports weakness All inpatient medications were reviewed and appropriate changes in these medications as dictated in the interval history and assessment and plan Active Medications Acetaminophen (Acetaminophen Tab 325 Mg Tab) 650 mg PO Q6HR PRN PRN Reason: Fever and/ or Pain Last Admin: 06/06/22 08:50 Dose: 650 mg Albuterol/Ipratropium (Ipratropium-Albuterol 3 Ml Neb) 3 ml INHALATION RT-TID [facility] Last Admin: 06/10/22 07:19 Dose: Not Given Albuterol/Ipratropium (Ipratropium-Albuterol 3 Ml Neb) 3 ml INHALATION RT-TID PRN PRN Reason: Shortness Of Breath Or Wheezing Amiodarone HCl (Amiodarone 200 Mg Tab) 200 mg PO DAILY [facility] Last Admin: 06/10/22 09:38 Dose: 200 mg Aspirin (Aspirin 81 Mg) 81 mg PO DAILY [facility] Last Admin: 06/10/22 09:38 Dose: 81 mg Atorvastatin Calcium (Atorvastatin 80 Mg Tab) 80 mg PO HS [facility] Last Admin: 06/09/22 21:15 Dose: 80 mg Bacitracin (Bacitracin Zinc 500 Unit/Gm Oint 28.4 Gm Tube) 1 applic TOPICAL QID [facility]; Protocol Last Admin: 06/10/22 11:20 Dose: Not Given Doxycycline Monohydrate (Doxycycline 100 Mg Cap) 100 mg PO BID [facility]; Protocol Last Admin: 06/10/22 09:38 Dose: 100 mg Glimepiride (Glimepiride 4 Mg Tab) 4 mg PO QAM [facility] Last Admin: 06/10/22 09:38 Dose: 4 mg Insulin Aspart (Insulin Aspart (Novolog) 100 Unit/Ml Vial) 0 unit SQ ACHS [facility]; Protocol Last Admin: 06/10/22 11:35 Dose: Not Given Isosorbide Mononitrate (Isosorbide Mononitrate Er 15 Mg Tab) 15 mg PO DAILY [facility] Last Admin: 06/10/22 09:38 Dose: 15 mg Lisinopril (Lisinopril 5 Mg Tab) 5 mg PO DAILY [facility] Last Admin: 06/10/22 09:38 Dose: 5 mg Loratadine (Loratadine 10 Mg Tab) 10 mg PO HS [facility] Last Admin: 06/09/22 21:15 Dose: 10 mg Metoprolol Succinate (Metoprolol Succinate (Er) 50 Mg Tab.Er.24h) 50 mg PO DAILY [facility] Last Admin: 06/10/22 09:38 Dose: 50 mg Miscellaneous Information (Warfarin Per Pharmacy) 0 each MISCELLANE DIRECTED PRN PRN Reason: INR Nitroglycerin (Nitroglycerin Sl Tabs 0.4 Mg Tab) 0.4 mg SUBLINGUAL Q5M PRN PRN Reason: Chest Pain Pantoprazole Sodium (Pantoprazole 40 Mg Tablet) 40 mg PO DAILY [facility] Last Admin: 06/10/22 09:38 Dose: 40 mg Pioglitazone HCl (Pioglitazone 30 Mg Tab) 30 mg PO DAILY [facility] Last Admin: 06/10/22 09:38 Dose: 30 mg Pregabalin (Pregabalin 100 Mg Cap) 100 mg PO BID [facility] Last Admin: 06/10/22 09:38 Dose: 100 mg Tamsulosin HCl (Tamsulosin 0.4 Mg Cap.Er.24h) 0.4 mg PO PC-SUPPER [facility] Last Admin: 06/09/22 17:57 Dose: 0.4 mg Temazepam (Temazepam 7.5 Mg Cap) 7.5 mg PO HS PRN PRN Reason: Insomnia Topiramate (Topiramate 25 Mg Tab) 25 mg PO BID [facility] Last Admin: 06/10/22 09:38 Dose: 25 mg Tramadol HCl (Tramadol 50 Mg Tab) 50 mg PO QID PRN PRN Reason: Pain/Discomfort Last Admin: 06/10/22 09:40 Dose: 50 mg Warfarin Sodium (Warfarin 2 Mg Tab) 4 mg PO ONCE@1800 ONE Stop: 06/10/22 18:01 PHYSICAL EXAMINATION: GENERAL: The patient is alert and oriented x3, not in any acute distress. Well developed, well nourished. HEENT: Pupils are round and equally reacting to light. EOMI. No scleral icterus. No conjunctival pallor. Normocephalic, atraumatic. No pharyngeal erythema. No thyromegaly. CARDIOVASCULAR: S1 and S2 muffled PULMONARY: Diminished breath sounds bilaterally with no wheezing or crackles. ABDOMEN: Soft, nontender, nondistended, normoactive bowel sounds. No palpable organomegaly. MUSCULOSKELETAL: No joint swelling or deformity. EXTREMITIES: No cyanosis, clubbing, or pedal edema. Left AKA. NEUROLOGICAL: Gross neurological examination did not reveal any focal deficits. SKIN: No rashes. Assessment: Possible acute non-ST segment elevation myocardial infarction with elevated troponin however patient had normal coronary arteries on cardiac cath. Cleared by hotel attendant Wound of the right ring finger with very minimal Cellulitis Acute kidney injury most likely contrast-induced nephropathy complicated by use of JEVON inhibitor and NSAIDs, improving Drug-seeking behavior and noncompliance with medication and recommendation Cardiomyopathy with ejection fraction 30% Mediastinal and bronchial lymphadenopathy emphysematous changes Continued ongoing nicotine dependence Chronic Atrial fibrillation, on Coumadin History of asthma History of CVA/TIA Diabetes mellitus, type II, uncontrolled with hyper and hypoglycemia Gastroesophageal reflux disease Hyperlipidemia Hypertension History of PEs and DVTs GI prophylaxis DVT prophylaxis on warfarin Do not resuscitate/do not intubate Plan: Continue with aspirin 81 mg, warfarin, INR is 2.1 today with pharmacy to dose On metoprolol, atorvastatin, lisinopril resumed Monitor kidney function, nephrology following Continue with oral doxycycline, ID following Continue sliding scale and Accu-Cheks before meals and at bedtime, recommend holding metformin Referral to PCP and pain management on D/C, lengthy discussion was had with the patient about pain management and reports his pain is being managed with Ultram and Lyrica and agreeable with outpatient pain management follow-up Avoid AGRONOMY SPECIALIST and narcotic agents if possible due to becoming altered, confused, and lethargic Recommend physical therapy daily to build strength and mobility Case management is following and working on insurance authorization. Will resubmit for insurance authorization as patient is medically stable for discharge to ECF and would benefit with aggressive physical therapy at the ECF such as father namita. Patient has had prolonged hospitalization making the patient more weak. The impression and plan of care has been dictated by Rashida Peterson, Nurse Practitioner as directed. Dr. Antonio MD I have performed a history and examination and MDM of this patient, discussed the same with the dictator, and agree with the dictator's assessment and plan as written ,documented as a scribe. Based on total visit time, I have performed more than 50% of the visit. Objective - Vital Signs Vital signs: Vital Signs Temp 98.9 F 06/10/22 08:00 Pulse 56 L 06/10/22 08:00 Resp 18 06/10/22 08:00 BP 111/63 06/10/22 08:00 Pulse Ox 99 06/10/22 08:00 FiO2 Intake & Output 06/09/22 06/10/22 06/10/22 18:59 06:59 18:59 Output Total 1100 2300 550 Balance -1100 -2300 -550 Weight 104 kg Output: Urine 1100 2300 550 Other: # Bowel Movements 1 - Labs CBC & Chem 7: 06/04/22 07:42 06/07/22 06:26 Labs: Abnormal Lab Results - Last 24 Hours (Table) 06/09/22 06/09/22 06/09/22 Range/Units 16:34 19:16 21:18 PT (9.0-12.0) sec INR (<1.2) POC Glucose (mg/dL) 125 H 331 H 133 H (70-110) mg/dL 06/09/22 06/10/22 Range/Units 21:22 05:02 PT 20.3 H (9.0-12.0) sec INR 2.1 H (<1.2) POC Glucose (mg/dL) 141 H (70-110) mg/dL
[2022-06-10 16:13] LABS: Glucose,Whole Blood 106 mg/dL (70-110)
[2022-06-10] MEDS: TAMSULOSIN 0.4 MG CAP.ER.24H PO SCH (17:27)
[2022-06-10] MEDS ORDERED: WARFARIN 2 MG TAB PO ONE (18:00)
[2022-06-10 19:51] LABS: Glucose,Whole Blood 233 mg/dL (70-110)
[2022-06-10] MEDS: TEMAZEPAM 7.5 MG CAP PO PRN (21:33)
[2022-06-10] MEDS: ATORVASTATIN 80 MG TAB PO SCH (21:33)
[2022-06-10] MEDS: LORATADINE 10 MG TAB PO SCH (21:33)
[2022-06-11] MEDS: traMADol 50 MG TAB PO PRN ×4 (03:35→21:07)
[2022-06-11 06:20] LABS: Glucose,Whole Blood 94 mg/dL (70-110)
[2022-06-11] MEDS: INSULIN ASPART (NovoLOG) 100 UNIT/ML VIAL SQ SCH ×4 (06:21→21:10)
[2022-06-11] MEDS: IPRATROPIUM-ALBUTEROL 3 ML NEB INHALATION SCH ×3 (07:43→21:17)
[2022-06-11] MEDS: ASPIRIN 81 MG PO SCH (10:12)
[2022-06-11] MEDS: GLIMEPIRIDE 4 MG TAB PO SCH (10:12)
[2022-06-11] MEDS: BACITRACIN ZINC 500 UNIT/GM OINT 28.4 GM TUBE TOPICAL SCH ×3 (10:12→18:24)
[2022-06-11] MEDS: PIOGLITAZONE 30 MG TAB PO SCH (10:12)
[2022-06-11] MEDS: AMIODARONE 200 MG TAB PO SCH (10:12)
[2022-06-11] MEDS: METOPROLOL SUCCINATE (ER) 50 MG TAB.ER.24H PO SCH (10:13)
[2022-06-11] MEDS: PREGABALIN 100 MG CAP PO SCH ×2 (10:13→21:07)
[2022-06-11] MEDS: PANTOPRAZOLE 40 MG TABLET PO SCH (10:13)
[2022-06-11] MEDS: ISOSORBIDE MONONITRATE ER 15 MG TAB PO SCH (10:13)
[2022-06-11] MEDS: lisinopriL 5 MG TAB PO SCH (10:13)
[2022-06-11] MEDS: TOPIRAMATE 25 MG TAB PO SCH ×2 (10:14→21:06)
[2022-06-11] MEDS ORDERED: IBUPROFEN 200 MG TAB PO PRN (11:11)
[2022-06-11 11:56] LABS: Glucose,Whole Blood 158 mg/dL (70-110)
[2022-06-11 12:09] LABS: INR 1.92 (0.90-1.11); Prothrombin Time 21.2 sec (9.9-11.9)
[2022-06-11 17:07] LABS: Glucose,Whole Blood 117 mg/dL (70-110)
[2022-06-11] MEDS ORDERED: WARFARIN 5 MG TAB PO ONE (18:00)
[2022-06-11] MEDS: TAMSULOSIN 0.4 MG CAP.ER.24H PO SCH (18:24)
--- NOTE | 2022-06-11 19:15 | P.PN ---
Subjective Progress Note Date: 06/11/22 This is a 67-year-old male who was recently admitted with chest pain, unstable angina with vascular cellulitis and being closely monitored with cardiology following closely. Plan is for cardiac catheterization in the a.m. Initially patient was scheduled for cardiac catheterization today although kidney functions slightly worsened and creatinine today is 1.59. Patient also more lethargic today and will adjust medications. Patient was placed back on heparin drip and will await cardiology report. Most recent EF is 30%. Patient is afebrile denies shortness of breath or palpitations. Patient denies nausea or vomiting and is tolerating diet. Patient was placed on gentle IV hydration and will follow-up with repeat labs in a.m. 06/01/2022 Patient is seen in follow-up today being followed by cardiology and was tentatively scheduled for cardiac catheterization today although kidney functio ns continue to be elevated and currently and kidneys with low blood pressure. Patient does have history of heart failure and recommend gentle IV hydration with follow-up labs. Blood pressure has been on the softer side and normally takes lisinopril although will hold and follow-up and will watch the labs closely. Nephrology consultation and appreciate input and recommendations. Patient continues to have retention and has been requiring straight catheterization. Patient normally takes Flomax and will continue and will also recommend indwelling Gamble catheter. Patient is continued on IV heparin and plans for possible cardiac catheterization this Monday. Continue telemetry monitoring. Encouraged oral intake and increased activity as tolerated. Patient more alert and awake today than yesterday. Patient is afebrile denies chest pain or worsening shortness of breath. No reports of nausea or vomiting and patient is tolerating diet. 06/02/2022 Subjective Patient was resting in bed with no chest pain or tachypnea or dyspnea. He was complaining of from his right ring Finger but he has small wound at the proximal interphalangeal joint with no significant surrounding cellulitis. He was on room air. Gamble catheter in a Place. Patient requesting for pain medication for his right leg, MAPS was checked on the last time he got Percocet 10 mg prescribed for him was 11/17/2021 for aurelia ntity of 12 for 3 days. We going to start gabapentin Patient will plan to undergo cardiac cath on Monday because of his worsening kidney function, general worker and rn telemetry on the case. He has history of left BKA Distal on heparin drip and normal saline 06/03/2022 patient lying in bed comfortable complains from no chest pain and he kept on heparin drip with cardiology planned for cardiac cath Inside Sales Assistant also on the case for trending up creatinine and today went up 1.4 and 21.6. No oliguria. Blood pressure is borderline 98/56 however patient is asymptomatic. Patient for his right foot pain which is changed To Neurontin. Right finger infection is very minimal on the small wound. Patient remains on doxycycline Also patient is in normal sinus 50 mL/h 06/05/2022 Today patient was more upset about his care and pain medication, he was asking for Percocet stating that his PCP prescribed for him. Last night the on-call physician ordered Percocet [id number]. MAPS was checked last time Percocet was prescribed for him was last November that's about 6 months ago. I explained for him the risks and benefits of this medication and the risk including respiratory depression and/or and the risk of addiction, patient this and carefully but still refusing the care and he refuses examination and to answer my questions MAPS was rechecked again today, last prescription for Percocet 10-to 325 mg was on 11/17/2021 quantity 12 tablets for 3 days, and the one before that was on 08/31/2021 quantity 90 tablets for 22 days. No more Percocet prescription or other narcotics since 11/2021 as above. Therefore risk of this medication more than benefits however patient still focused on getting Percocet specifically. He states that this is for his right leg pain However patient refused exam We going to increase gabapentin 100 mg up to 300 mg 3 times a day Labs from yesterday noted including potassium of 5.2 and creatinine 1.2 Inside Sales Assistant on the case and adjusted his blood pressure medication. 06/06/2022 Patient resting in bed today, continues to report significant achy 10/10 pain to his right lower extremity and also left AKA. He is requesting oral narcotics. Patient does report he was discharged from his primary care office and also pain management services he was seeing out in [place] due to not showing up for office visits. Reports that no one is refilling his medications for him outpatient. He would benefit from establish with pain management services locally.Received xanax this morning and is sedated. Unable to finish conversation or keep eyes open long enough to carry a conversation. Falling asleep mid sentence. Xanax will be stopped. Indwelling catheter can also be discontinued today. On warfarin, INR today 1.2. 06/09/2022 Patient is seen and evaluated in follow-up today continues with significant weakness awaiting insurance authorization for ECF. Cardiology following recommend close outpatient follow-up and continue with current cardiac medications. Patient is maintained on Coumadin and INR is 1.4 today. Recommend Accu-Cheks before meals and at bedtime and continue with current medication regimen. Physical therapy to reevaluate the patient today. Patient is afebrile denies chest pain or shortness of breath. No reports of nausea or vomiting noted and patient is tolerating diet. Working with insurance authorization and peer to peer is requested. Awaiting updated therapy notes. 06/10/2022 Patient is seen and evaluated in follow-up today currently working with physical therapy and agreeable to. Patient continues with significant weakness and would highly benefit from rehab. Patient with chronic pain and also some pain seeking behaviors being referred to pain management outpatient. Patient has noncompliance with medications and follow-up appointments which has resulted in medication noncompliance as well. Patient is maintained on Lyrica along with Ultram and reports his pain is controlled at this current moment. Patient was taking large doses of Percocet in the past and has been weaned off of this. Patient does have tendency to request higher dose pain medications although becomes altered and lethargic, hence the reason that occasion were reduced and this was discussed with the patient. Patient reports his pain is chronically 9 or 10 out of 10 on the pain scale. Patient will need outpatient pain management follow-up and is agreeable with this. Reports to having some difficulty in sleeping and will add low-dose Restoril as needed. Patient Is afebrile denies chest pain or shortness of breath and is tolerating diet with no reports of nausea or vomiting noted. 06/11/2022 Patient is seen in follow up today and awaiting authorization of insurance for ECF. Patient has been cleared medically for discharge by cardiology. Patient has completed a course of antibiotics for hand cellulitis with ID following. Patient continues with weakness and not back to baseline. Patient is mostly wheelchair bound due to left aka. Patient with prolonged hospitalization recommending ecf for continued PT/OT therapy. Case management following. Afebrile and denies chest pain or shortness of breath. Tolerating diet and recommend accuchecks achs. Review of Systems Constitutional: Denied any fatigue denied any fever. Cardio vascular: denied any chest pain, palpitations Gastrointestinal: denied any nausea, vomiting, diarrhea Pulmonary: Denied any shortness of breath cough Neurologic denied any new focal deficits, reports weakness All inpatient medications were reviewed and appropriate changes in these medications as dictated in the interval history and assessment and plan PHYSICAL EXAMINATION: GENERAL: The patient is alert and oriented x3, not in any acute distress. Well developed, well nourished. HEENT: Pupils are round and equally reacting to light. EOMI. No scleral icterus. No conjunctival pallor. Normocephalic, atraumatic. No pharyngeal erythema. No thyromegaly. CARDIOVASCULAR: S1 and S2 muffled PULMONARY: Diminished breath sounds bilaterally with no wheezing or crackles. ABDOMEN: Soft, nontender, nondistended, normoactive bowel sounds. No palpable organomegaly. MUSCULOSKELETAL: No joint swelling or deformity. EXTREMITIES: No cyanosis, clubbing, or pedal edema. Left AKA. NEUROLOGICAL: Gross neurological examination did not reveal any focal deficits. SKIN: No rashes. Assessment: Possible acute non-ST segment elevation myocardial infarction with elevated troponin however patient had normal coronary arteries on cardiac cath. Cleared by rn telemetry Wound of the right ring finger with very minimal Cellulitis, completed oral antibiotics with ID following. Acute kidney injury most likely contrast-induced nephropathy complicated by use of JEVON inhibitor and NSAIDs, improving Drug-seeking behavior and noncompliance with medication and recommendation Cardiomyopathy with ejection fraction 30% Mediastinal and bronchial lymphadenopathy emphysematous changes Continued ongoing nicotine dependence Chronic Atrial fibrillation, on Coumadin History of asthma History of CVA/TIA Diabetes mellitus, type II, uncontrolled with hyper and hypoglycemia Gastroesophageal reflux disease Hyperlipidemia Hypertension History of PEs and DVTs GI prophylaxis DVT prophylaxis on warfarin Do not resuscitate/do not intubate Plan: Continue with aspirin 81 mg, warfarin, with pharmacy to dose On metoprolol, atorvastatin, lisinopril resumed Monitor kidney function, nephrology following Completed oral doxycycline, ID following Continue sliding scale and Accu-Cheks before meals and at bedtime, recommend holding metformin Referral to PCP and pain management on D/C Avoid TUBE TESTER and narcotic agents if possible due to becoming altered, confused, and lethargic Recommend physical therapy daily to build strength and mobility Case management is following and working on insurance authorization. insurance authorization was resubmitted and pending as patient is medically stable for discharge to [facility] and would benefit with aggressive physical therapy at the [facility]. Due to multiple complex medical issues, prognosis is guarded. The impression and plan of care has been dictated as a scribe by Rashida Peterson, nurse practitioner as directed. Dr. Antonio MD I have performed a history and examination and MDM of this patient, discussed the same with the dictator, and will be documented as a scribe. Based on total visit time, I have performed more than 50% of the visit. Any additional find ings or plans will be noted. Objective - Vital Signs Vital signs: Vital Signs Temp 97.6 F 06/11/22 08:00 Pulse 60 06/11/22 08:00 Resp 17 06/11/22 08:00 BP 116/62 06/11/22 08:00 Pulse Ox 100 06/11/22 08:00 FiO2 Intake & Output 06/10/22 06/11/22 06/11/22 18:59 06:59 18:59 Output Total 1750 400 Balance -1750 -400 Weight 102.5 kg Output: Urine 1750 400 - Labs CBC & Chem 7: 06/04/22 07:42 06/07/22 06:26 Labs: Abnormal Lab Results - Last 24 Hours (Table) 06/10/22 Range/Units 19:49 POC Glucose (mg/dL) 233 H (70-110) mg/dL
[2022-06-11 20:32] LABS: Glucose,Whole Blood 132 mg/dL (70-110)
[2022-06-11] MEDS: ATORVASTATIN 80 MG TAB PO SCH (21:06)
[2022-06-11] MEDS: LORATADINE 10 MG TAB PO SCH (21:07)
[2022-06-12] MEDS: BACITRACIN ZINC 500 UNIT/GM OINT 28.4 GM TUBE TOPICAL SCH ×5 (01:34→21:29)
[2022-06-12] MEDS: traMADol 50 MG TAB PO PRN ×4 (04:10→21:19)
[2022-06-12 06:14] LABS: Glucose,Whole Blood 101 mg/dL (70-110)
[2022-06-12] MEDS: INSULIN ASPART (NovoLOG) 100 UNIT/ML VIAL SQ SCH ×4 (06:30→21:23)
[2022-06-12] MEDS: IPRATROPIUM-ALBUTEROL 3 ML NEB INHALATION SCH ×3 (07:04→20:53)
[2022-06-12] MEDS: PREGABALIN 100 MG CAP PO SCH ×2 (08:48→21:16)
[2022-06-12] MEDS: ASPIRIN 81 MG PO SCH (08:48)
[2022-06-12] MEDS: lisinopriL 5 MG TAB PO SCH (08:48)
[2022-06-12] MEDS: GLIMEPIRIDE 4 MG TAB PO SCH (08:48)
[2022-06-12] MEDS: ISOSORBIDE MONONITRATE ER 15 MG TAB PO SCH (08:48)
[2022-06-12] MEDS: AMIODARONE 200 MG TAB PO SCH (08:48)
[2022-06-12] MEDS: PANTOPRAZOLE 40 MG TABLET PO SCH (08:48)
[2022-06-12] MEDS: METOPROLOL SUCCINATE (ER) 50 MG TAB.ER.24H PO SCH (08:48)
[2022-06-12] MEDS: TOPIRAMATE 25 MG TAB PO SCH ×2 (08:49→21:17)
[2022-06-12] MEDS: PIOGLITAZONE 30 MG TAB PO SCH (08:49)
[2022-06-12] MEDS: ACETAMINOPHEN TAB 325 MG TAB PO PRN ×2 (08:51→14:38)
[2022-06-12 11:32] LABS: Glucose,Whole Blood 84 mg/dL (70-110)
[2022-06-12 11:46] LABS: INR 2.26 (0.90-1.11); Prothrombin Time 24.7 sec (9.9-11.9)
[2022-06-12 16:40] LABS: Glucose,Whole Blood 128 mg/dL (70-110)
[2022-06-12] MEDS: TAMSULOSIN 0.4 MG CAP.ER.24H PO SCH (17:07)
[2022-06-12] MEDS ORDERED: WARFARIN 5 MG TAB PO ONE (18:00)
--- NOTE | 2022-06-12 18:04 | P.PN ---
Subjective Progress Note Date: 06/12/22 This is a 67-year-old male who was recently admitted with chest pain, unstable angina with vascular cellulitis and being closely monitored with cardiology following closely. Plan is for cardiac catheterization in the a.m. Initially patient was scheduled for cardiac catheterization today although kidney functions slightly worsened and creatinine today is 1.59. Patient also more lethargic today and will adjust medications. Patient was placed back on heparin drip and will await cardiology report. Most recent EF is 30%. Patient is afebrile denies shortness of breath or palpitations. Patient denies nausea or vomiting and is tolerating diet. Patient was placed on gentle IV hydration and will follow-up with repeat labs in a.m. 06/01/2022 Patient is seen in follow-up today being followed by cardiology and was tentatively scheduled for cardiac catheterization today although kidney functio ns continue to be elevated and currently and kidneys with low blood pressure. Patient does have history of heart failure and recommend gentle IV hydration with follow-up labs. Blood pressure has been on the softer side and normally takes lisinopril although will hold and follow-up and will watch the labs closely. Nephrology consultation and appreciate input and recommendations. Patient continues to have retention and has been requiring straight catheterization. Patient normally takes Flomax and will continue and will also recommend indwelling Gamble catheter. Patient is continued on IV heparin and plans for possible cardiac catheterization this Monday. Continue telemetry monitoring. Encouraged oral intake and increased activity as tolerated. Patient more alert and awake today than yesterday. Patient is afebrile denies chest pain or worsening shortness of breath. No reports of nausea or vomiting and patient is tolerating diet. 06/02/2022 Subjective Patient was resting in bed with no chest pain or tachypnea or dyspnea. He was complaining of from his right ring Finger but he has small wound at the proximal interphalangeal joint with no significant surrounding cellulitis. He was on room air. Gamble catheter in a Place. Patient requesting for pain medication for his right leg, MAPS was checked on the last time he got Percocet 10 mg prescribed for him was 11/17/2021 for aurelia ntity of 12 for 3 days. We going to start gabapentin Patient will plan to undergo cardiac cath on Monday because of his worsening kidney function, geospatial scientist and dialer on the case. He has history of left BKA Distal on heparin drip and normal saline 06/03/2022 patient lying in bed comfortable complains from no chest pain and he kept on heparin drip with cardiology planned for cardiac cath Supervisor Ovens also on the case for trending up creatinine and today went up 1.4 and 21.6. No oliguria. Blood pressure is borderline 98/56 however patient is asymptomatic. Patient for his right foot pain which is changed To Neurontin. Right finger infection is very minimal on the small wound. Patient remains on doxycycline Also patient is in normal sinus 50 mL/h 06/05/2022 Today patient was more upset about his care and pain medication, he was asking for Percocet stating that his PCP prescribed for him. Last night the on-call physician ordered Percocet [id number]. MAPS was checked last time Percocet was prescribed for him was last November that's about 6 months ago. I explained for him the risks and benefits of this medication and the risk including respiratory depression and/or and the risk of addiction, patient this and carefully but still refusing the care and he refuses examination and to answer my questions MAPS was rechecked again today, last prescription for Percocet 10-to 325 mg was on 11/17/2021 quantity 12 tablets for 3 days, and the one before that was on 08/31/2021 quantity 90 tablets for 22 days. No more Percocet prescription or other narcotics since 11/2021 as above. Therefore risk of this medication more than benefits however patient still focused on getting Percocet specifically. He states that this is for his right leg pain However patient refused exam We going to increase gabapentin 100 mg up to 300 mg 3 times a day Labs from yesterday noted including potassium of 5.2 and creatinine 1.2 Supervisor Ovens on the case and adjusted his blood pressure medication. 06/06/2022 Patient resting in bed today, continues to report significant achy 10/10 pain to his right lower extremity and also left AKA. He is requesting oral narcotics. Patient does report he was discharged from his primary care office and also pain management services he was seeing out in [place] due to not showing up for office visits. Reports that no one is refilling his medications for him outpatient. He would benefit from establish with pain management services locally.Received xanax this morning and is sedated. Unable to finish conversation or keep eyes open long enough to carry a conversation. Falling asleep mid sentence. Xanax will be stopped. Indwelling catheter can also be discontinued today. On warfarin, INR today 1.2. 06/09/2022 Patient is seen and evaluated in follow-up today continues with significant weakness awaiting insurance authorization for ECF. Cardiology following recommend close outpatient follow-up and continue with current cardiac medications. Patient is maintained on Coumadin and INR is 1.4 today. Recommend Accu-Cheks before meals and at bedtime and continue with current medication regimen. Physical therapy to reevaluate the patient today. Patient is afebrile denies chest pain or shortness of breath. No reports of nausea or vomiting noted and patient is tolerating diet. Working with insurance authorization and peer to peer is requested. Awaiting updated therapy notes. 06/10/2022 Patient is seen and evaluated in follow-up today currently working with physical therapy and agreeable to. Patient continues with significant weakness and would highly benefit from rehab. Patient with chronic pain and also some pain seeking behaviors being referred to pain management outpatient. Patient has noncompliance with medications and follow-up appointments which has resulted in medication noncompliance as well. Patient is maintained on Lyrica along with Ultram and reports his pain is controlled at this current moment. Patient was taking large doses of Percocet in the past and has been weaned off of this. Patient does have tendency to request higher dose pain medications although becomes altered and lethargic, hence the reason that occasion were reduced and this was discussed with the patient. Patient reports his pain is chronically 9 or 10 out of 10 on the pain scale. Patient will need outpatient pain management follow-up and is agreeable with this. Reports to having some difficulty in sleeping and will add low-dose Restoril as needed. Patient Is afebrile denies chest pain or shortness of breath and is tolerating diet with no reports of nausea or vomiting noted. 06/11/2022 Patient is seen in follow up today and awaiting authorization of insurance for ECF. Patient has been cleared medically for discharge by cardiology. Patient has completed a course of antibiotics for hand cellulitis with ID following. Patient continues with weakness and not back to baseline. Patient is mostly wheelchair bound due to left aka. Patient with prolonged hospitalization recommending ecf for continued PT/OT therapy. Case management following. Afebrile and denies chest pain or shortness of breath. Tolerating diet and recommend accuchecks achs. 06/12/2022 Patient is seen today and continues to await insurance authorization. Patient was seen by cardiology and ID and cleared for discharge. Recommend ECF for continued strength and mobility. Patient being followed by case management and will follow up with them in the am about authorization. Patient is afebrile and denies chest pain or shortness of breath. Review of Systems Constitutional: Denied any fatigue denied any fever. Cardio vascular: denied any chest pain, palpitations Gastrointestinal: denied any nausea, vomiting, diarrhea Pulmonary: Denied any shortness of breath cough Neurologic denied any new focal deficits, reports weakness All inpatient medications were reviewed and appropriate changes in these medications as dictated in the interval history and assessment and plan PHYSICAL EXAMINATION: GENERAL: The patient is alert and oriented x3, not in any acute distress. Well developed, well nourished. HEENT: Pupils are round and equally reacting to light. EOMI. No scleral icterus. No conjunctival pallor. Normocephalic, atraumatic. No pharyngeal erythema. No thyromegaly. CARDIOVASCULAR: S1 and S2 muffled PULMONARY: Diminished breath sounds bilaterally with no wheezing or crackles. ABDOMEN: Soft, nontender, nondistended, normoactive bowel sounds. No palpable organomegaly. MUSCULOSKELETAL: No joint swelling or deformity. EXTREMITIES: No cyanosis, clubbing, or pedal edema. Left AKA. NEUROLOGICAL: Gross neurological examination did not reveal any focal deficits. SKIN: No rashes. Assessment: Possible acute non-ST segment elevation myocardial infarction with elevated troponin however patient had normal coronary arteries on cardiac cath. Cleared by dialer Wound of the right ring finger with very minimal Cellulitis, completed oral antibiotics with ID following. Acute kidney injury most likely contrast-induced nephropathy complicated by use of JEVON inhibitor and NSAIDs, improving Drug-seeking behavior and noncompliance with medication and recommendation Cardiomyopathy with ejection fraction 30% Mediastinal and bronchial lymphadenopathy emphysematous changes Continued ongoing nicotine dependence Chronic Atrial fibrillation, on Coumadin History of asthma History of CVA/TIA Diabetes mellitus, type II, uncontrolled with hyper and hypoglycemia Gastroesophageal reflux disease Hyperlipidemia Hypertension History of PEs and DVTs GI prophylaxis DVT prophylaxis on warfarin Do not resuscitate/do not intubate Plan: Continue with current medications Monitor kidney function, nephrology following Completed oral doxycycline, ID following Continue sliding scale and Accu-Cheks before meals and at bedtime, recommend holding metformin Referral to PCP and pain management on D/C Avoid TRIMMER MACHINE and narcotic agents if possible due to becoming altered, confused, and lethargic Recommend physical therapy daily to build strength and mobility Case management is following and working on insurance authorization. insurance authorization was resubmitted and pending as patient is medically stable for discharge to [facility] and would benefit with aggressive physical therapy at the [facility]. Will follow up with case management in the am. Possible discharge in 24-48 hours Due to multiple complex medical issues, prognosis is guarded. The impression and plan of care has been dictated as a scribe by Rashida Peterson, nurse practitioner as directed. Dr. Antonio MD I have performed a history and examination and MDM of this patient, discussed the same with the dictator, and will be documented as a scribe. Based on total visit time, I have performed more than 50% of the visit. Any additional findings or plans will be noted. Objective - Vital Signs Vital signs: Vital Signs Temp 97.7 F 06/12/22 02:00 Pulse 59 L 06/12/22 07:12 Resp 18 06/12/22 07:12 BP 124/66 06/12/22 07:12 Pulse Ox 99 06/12/22 07:12 FiO2 Intake & Output 06/11/22 06/12/22 06/12/22 18:59 06:59 18:59 Intake Total 0 Balance 0 Weight 102 kg Intake: IV 0 .9@20 0 Other: Voiding Method Urinal # Voids 4 - Labs CBC & Chem 7: 06/04/22 07:42 06/07/22 06:26 Labs: Abnormal Lab Results - Last 24 Hours (Table) 06/11/22 06/11/22 06/11/22 Range/Units 06:43 11:55 17:05 PT 21.2 H (9.9-11.9) sec INR 1.92 H (0.90-1.11) POC Glucose (mg/dL) 158 H 117 H (70-110) mg/dL 06/11/22 Range/Units 20:30 PT (9.9-11.9) sec INR (0.90-1.11) POC Glucose (mg/dL) 132 H (70-110) mg/dL
[2022-06-12] MEDS: ATORVASTATIN 80 MG TAB PO SCH (21:16)
[2022-06-12] MEDS: LORATADINE 10 MG TAB PO SCH (21:16)
[2022-06-12 21:21] LABS: Glucose,Whole Blood 182 mg/dL (70-110)
[2022-06-12] MEDS: TEMAZEPAM 7.5 MG CAP PO PRN (22:53)
[2022-06-13] MEDS: traMADol 50 MG TAB PO PRN ×3 (05:31→21:45)
[2022-06-13 06:28] LABS: Glucose,Whole Blood 99 mg/dL (70-110)
[2022-06-13] MEDS: INSULIN ASPART (NovoLOG) 100 UNIT/ML VIAL SQ SCH ×4 (06:31→21:39)
[2022-06-13] MEDS: IPRATROPIUM-ALBUTEROL 3 ML NEB INHALATION SCH ×3 (08:09→20:38)
[2022-06-13] MEDS: BACITRACIN ZINC 500 UNIT/GM OINT 28.4 GM TUBE TOPICAL SCH ×4 (08:49→22:31)
[2022-06-13] MEDS: AMIODARONE 200 MG TAB PO SCH (08:53)
[2022-06-13] MEDS: ASPIRIN 81 MG PO SCH (08:53)
[2022-06-13] MEDS: METOPROLOL SUCCINATE (ER) 50 MG TAB.ER.24H PO SCH (08:53)
[2022-06-13] MEDS: PREGABALIN 100 MG CAP PO SCH ×2 (08:53→21:39)
[2022-06-13] MEDS: PANTOPRAZOLE 40 MG TABLET PO SCH (08:53)
[2022-06-13] MEDS: lisinopriL 5 MG TAB PO SCH (08:54)
[2022-06-13] MEDS: ISOSORBIDE MONONITRATE ER 15 MG TAB PO SCH (08:54)
[2022-06-13] MEDS: PIOGLITAZONE 30 MG TAB PO SCH (08:54)
[2022-06-13] MEDS: GLIMEPIRIDE 4 MG TAB PO SCH (08:54)
[2022-06-13] MEDS: TOPIRAMATE 25 MG TAB PO SCH ×2 (08:54→21:39)
[2022-06-13 09:04] VITALS: BMI 28.1
[2022-06-13 10:12] LABS: INR 2.8 (<1.2)
--- NOTE | 2022-06-13 11:04 | P.PN ---
Subjective Patient is seen in follow-up for acute kidney injury. Creatinine 1.1 dated 06/07/2022. Sitting up on the chair. Denies chest pain or shortness of breath. Good urine output. No active complaints. Vital signs are stable. General: Awake. No acute distress. HEENT: Head exam is unremarkable. LUNGS: Breath sounds decreased. HEART: Rate and Rhythm are regular. ABDOMEN: Soft, no distention. EXTREMITITES: Left AKA. Objective - Vital Signs Vital signs: Vital Signs Temp 97.8 F 06/13/22 08:11 Pulse 60 06/13/22 08:11 Resp 18 06/13/22 08:11 BP 144/75 06/13/22 08:11 Pulse Ox 97 06/13/22 08:11 FiO2 Intake & Output 06/12/22 06/13/22 06/13/22 18:59 06:59 18:59 Output Total 550 Balance -550 Weight 99.5 kg 99.5 kg Output: Urine 550 Other: Voiding Method Urinal # Voids 15 # Bowel Movements 0 - Labs CBC & Chem 7: 06/04/22 07:42 06/07/22 06:26 Labs: Abnormal Lab Results - Last 24 Hours (Table) 06/12/22 06/12/22 06/12/22 Range/Units 06:46 16:38 21:19 PT 24.7 H (9.9-11.9) sec INR 2.26 H (0.90-1.11) POC Glucose (mg/dL) 128 H 182 H (70-110) mg/dL 06/13/22 Range/Units 08:38 PT 27.0 H (9.9-11.9) sec INR 2.8 H (0.90-1.11) POC Glucose (mg/dL) (70-110) mg/dL Assessment and Plan Plan: Assessment: 1. Acute kidney injury secondary to ATN secondary to contrast-induced acute kidney injury and diuresis. Further worsened with the use of JEVON inhibitor and nonsteroidals. Patient received IV contrast on 05/28/2022. Creatinine 1.1 dated 06/07/22. UA benign. No hydronephrosis noted on renal ultrasound. 2. Cardiomyopathy with ejection fraction of 30%. Cardiology following. Status post cardiac catheterization this admission. 3. Diabetes mellitus. 4. Status post left AKA. 5. Urinary retention status post Gamble catheter placement. On Flomax. Gamble now removed. 6. Mild hyperkalemia secondary to acute kidney injury. Resolved. Plan: Encourage oral intake. Avoid nephrotoxins, including NSAIDs. Repeat labs in the morning.
[2022-06-13 11:48] LABS: Glucose,Whole Blood 74 mg/dL (70-110)
[2022-06-13 16:36] LABS: Glucose,Whole Blood 180 mg/dL (70-110)
[2022-06-13] MEDS: TAMSULOSIN 0.4 MG CAP.ER.24H PO SCH (17:56)
[2022-06-13] MEDS ORDERED: WARFARIN 3 MG TAB PO ONE (18:00)
[2022-06-13 20:43] LABS: Glucose,Whole Blood 180 mg/dL (70-110)
[2022-06-13] MEDS: ATORVASTATIN 80 MG TAB PO SCH (21:39)
[2022-06-13] MEDS: LORATADINE 10 MG TAB PO SCH (21:39)
[2022-06-14] MEDS: traMADol 50 MG TAB PO PRN ×3 (04:04→20:34)
--- NOTE | 2022-06-14 04:30 | P.PN ---
Subjective Progress Note Date: 06/13/22 This is a 67-year-old male who was recently admitted with chest pain, unstable angina with vascular cellulitis and being closely monitored with cardiology following closely. Plan is for cardiac catheterization in the a.m. Initially patient was scheduled for cardiac catheterization today although kidney functions slightly worsened and creatinine today is 1.59. Patient also more lethargic today and will adjust medications. Patient was placed back on heparin drip and will await cardiology report. Most recent EF is 30%. Patient is afebrile denies shortness of breath or palpitations. Patient denies nausea or vomiting and is tolerating diet. Patient was placed on gentle IV hydration and will follow-up with repeat labs in a.m. 06/01/2022 Patient is seen in follow-up today being followed by cardiology and was tentatively scheduled for cardiac catheterization today although kidney functio ns continue to be elevated and currently and kidneys with low blood pressure. Patient does have history of heart failure and recommend gentle IV hydration with follow-up labs. Blood pressure has been on the softer side and normally takes lisinopril although will hold and follow-up and will watch the labs closely. Nephrology consultation and appreciate input and recommendations. Patient continues to have retention and has been requiring straight catheterization. Patient normally takes Flomax and will continue and will also recommend indwelling Gamble catheter. Patient is continued on IV heparin and plans for possible cardiac catheterization this Monday. Continue telemetry monitoring. Encouraged oral intake and increased activity as tolerated. Patient more alert and awake today than yesterday. Patient is afebrile denies chest pain or worsening shortness of breath. No reports of nausea or vomiting and patient is tolerating diet. 06/02/2022 Subjective Patient was resting in bed with no chest pain or tachypnea or dyspnea. He was complaining of from his right ring Finger but he has small wound at the proximal interphalangeal joint with no significant surrounding cellulitis. He was on room air. Gamble catheter in a Place. Patient requesting for pain medication for his right leg, MAPS was checked on the last time he got Percocet 10 mg prescribed for him was 11/17/2021 for aurelia ntity of 12 for 3 days. 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 He has history of left BKA Distal on heparin drip and normal saline 06/03/2022 patient lying in bed comfortable complains from no chest pain and he kept on heparin drip with cardiology planned for cardiac cath Banquet Prep Cook also on the case for trending up creatinine and today went up 1.4 and 21.6. No oliguria. Blood pressure is borderline 98/56 however patient is asymptomatic. Patient for his right foot pain which is changed To Neurontin. Right finger infection is very minimal on the small wound. Patient remains on doxycycline Also patient is in normal sinus 50 mL/h 06/05/2022 Today patient was more upset about his care and pain medication, he was asking for Percocet stating that his PCP prescribed for him. Last night the on-call physician ordered Percocet [id number]. MAPS was checked last time Percocet was prescribed for him was last November that's about 6 months ago. I explained for him the risks and benefits of this medication and the risk including respiratory depression and/or and the risk of addiction, patient this and carefully but still refusing the care and he refuses examination and to answer my questions MAPS was rechecked again today, last prescription for Percocet 10-to 325 mg was on 11/17/2021 quantity 12 tablets for 3 days, and the one before that was on 08/31/2021 quantity 90 tablets for 22 days. No more Percocet prescription or other narcotics since 11/2021 as above. Therefore risk of this medication more than benefits however patient still focused on getting Percocet specifically. He states that this is for his right leg pain However patient refused exam We going to increase gabapentin 100 mg up to 300 mg 3 times a day Labs from yesterday noted including potassium of 5.2 and creatinine 1.2 Banquet Prep Cook on the case and adjusted his blood pressure medication. 06/06/2022 Patient resting in bed today, continues to report significant achy 10/10 pain to his right lower extremity and also left AKA. He is requesting oral narcotics. Patient does report he was discharged from his primary care office and also pain management services he was seeing out in [place] due to not showing up for office visits. Reports that no one is refilling his medications for him outpatient. He would benefit from establish with pain management services locally.Received xanax this morning and is sedated. Unable to finish conversation or keep eyes open long enough to carry a conversation. Falling asleep mid sentence. Xanax will be stopped. Indwelling catheter can also be discontinued today. On warfarin, INR today 1.2. 06/09/2022 Patient is seen and evaluated in follow-up today continues with significant weakness awaiting insurance authorization for ECF. Cardiology following recommend close outpatient follow-up and continue with current cardiac medications. Patient is maintained on Coumadin and INR is 1.4 today. Recommend Accu-Cheks before meals and at bedtime and continue with current medication regimen. Physical therapy to reevaluate the patient today. Patient is afebrile denies chest pain or shortness of breath. No reports of nausea or vomiting noted and patient is tolerating diet. Working with insurance authorization and peer to peer is requested. Awaiting updated therapy notes. 06/10/2022 Patient is seen and evaluated in follow-up today currently working with physical therapy and agreeable to. Patient continues with significant weakness and would highly benefit from rehab. Patient with chronic pain and also some pain seeking behaviors being referred to pain management outpatient. Patient has noncompliance with medications and follow-up appointments which has resulted in medication noncompliance as well. Patient is maintained on Lyrica along with Ultram and reports his pain is controlled at this current moment. Patient was taking large doses of Percocet in the past and has been weaned off of this. Patient does have tendency to request higher dose pain medications although becomes altered and lethargic, hence the reason that occasion were reduced and this was discussed with the patient. Patient reports his pain is chronically 9 or 10 out of 10 on the pain scale. Patient will need outpatient pain management follow-up and is agreeable with this. Reports to having some difficulty in sleeping and will add low-dose Restoril as needed. Patient Is afebrile denies chest pain or shortness of breath and is tolerating diet with no reports of nausea or vomiting noted. 06/11/2022 Patient is seen in follow up today and awaiting authorization of insurance for ECF. Patient has been cleared medically for discharge by cardiology. Patient has completed a course of antibiotics for hand cellulitis with ID following. Patient continues with weakness and not back to baseline. Patient is mostly wheelchair bound due to left aka. Patient with prolonged hospitalization recommending ecf for continued PT/OT therapy. Case management following. Afebrile and denies chest pain or shortness of breath. Tolerating diet and recommend accuchecks achs. 06/12/2022 Patient is seen today and continues to await insurance authorization. Patient was seen by cardiology and ID and cleared for discharge. Recommend ECF for continued strength and mobility. Patient being followed by case management and will follow up with them in the am about authorization. Patient is afebrile and denies chest pain or shortness of breath. 06/13/2022 Patient is seen today with no overnight issues noted. Patient is continued on current medications and reports controlled pain at this time. Patient is sleeping a little better. Recommend PT daily for updated notes and progress on continued weakness. Unable to resubmit for auth per case management and r equiring fast appeal and this process was initiated. Could take up to 72 hours for decision. Continue to encourage increased activity as tolerated. Nephrology following and repeat labs ordered for am. Patient denies chest pain or palpitations. Denies shortness of breath and is afebrile. Tolerating diet with no nausea or vomiting noted. Review of Systems Constitutional: Denied any fatigue denied any fever. Cardio vascular: denied any chest pain, palpitations Gastrointestinal: denied any nausea, vomiting, diarrhea Pulmonary: Denied any shortness of breath cough Neurologic denied any new focal deficits, reports weakness All inpatient medications were reviewed and appropriate changes in these medications as dictated in the interval history and assessment and plan PHYSICAL EXAMINATION: GENERAL: The patient is alert and oriented x3, not in any acute distress. Well developed, well nourished. HEENT: Pupils are round and equally reacting to light. EOMI. No scleral icterus. No conjunctival pallor. Normocephalic, atraumatic. No pharyngeal erythema. No thyromegaly. CARDIOVASCULAR: S1 and S2 muffled PULMONARY: Diminished breath sounds bilaterally with no wheezing or crackles. ABDOMEN: Soft, nontender, nondistended, normoactive bowel sounds. No palpable organomegaly. MUSCULOSKELETAL: No joint swelling or deformity. EXTREMITIES: No cyanosis, clubbing, or pedal edema. Left AKA. NEUROLOGICAL: Gross neurological examination did not reveal any focal deficits. diffuse weakness SKIN: No rashes. Assessment: Possible acute non-ST segment elevation myocardial infarction with elevated troponin however patient had normal coronary arteries on cardiac cath. Cleared by central supply tech Wound of the right ring finger with very minimal Cellulitis, completed oral antibiotics with ID following. Acute kidney injury most likely contrast-induced nephropathy complicated by use of JEVON inhibitor and NSAIDs, improving Drug-seeking behavior and noncompliance with medication and recommendation Cardiomyopathy with ejection fraction 30% Mediastinal and bronchial lymphadenopathy emphysematous changes Continued ongoing nicotine dependence Chronic Atrial fibrillation, on Coumadin History of asthma History of CVA/TIA Diabetes mellitus, type II, uncontrolled with hyper and hypoglycemia Gastroesophageal reflux disease Hyperlipidemia Hypertension History of PEs and DVTs GI prophylaxis DVT prophylaxis on warfarin Do not resuscitate/do not intubate Plan: Continue with current medications Monitor kidney function, nephrology following, repeat am labs ordered Completed oral doxycycline, ID following Continue sliding scale and Accu-Cheks before meals and at bedtime, continue holding metformin Referral to PCP and pain management on D/C Avoid BLOWER AND COMPRESSOR ASSEMBLER and narcotic agents if possible due to becoming altered, confused, and lethargic Recommend physical therapy daily to build strength and mobility Case management is following and working on insurance authorization. insurance authorization was resubmitted although unable to submit again and requiring fast appeal and this process will be initiated and could possibly take up to 72 hours. Patient is medically stable for discharge to ECF and would benefit with aggressive physical therapy at the ECF. Will follow up with case management Due to multiple complex medical issues, prognosis is guarded. The impression and plan of care has been dictated by Rashida Peterson, Nurse Practitioner as directed. MD Eva I have performed a history and examination and MDM of this patient, discussed the same with the dictator, and agree with the dictator's assessment and plan as written ,documented as a scribe. Based on total visit time, I have performed more than 50% of the visit. Objective - Vital Signs Vital signs: Vital Signs Temp 97.8 F 06/13/22 08:11 Pulse 60 06/13/22 08:11 Resp 18 06/13/22 08:11 BP 144/75 06/13/22 08:11 Pulse Ox 97 06/13/22 08:11 FiO2 Intake & Output 06/12/22 06/13/22 06/13/22 18:59 06:59 18:59 Output Total 550 Balance -550 Weight 99.5 kg 99.5 kg Output: Urine 550 Other: Voiding Method Urinal # Voids 15 # Bowel Movements 0 - Labs CBC & Chem 7: 06/04/22 07:42 06/07/22 06:26 Labs: Abnormal Lab Results - Last 24 Hours (Table) 06/12/22 06/12/22 06/12/22 Range/Units 06:46 16:38 21:19 PT 24.7 H (9.9-11.9) sec INR 2.26 H (0.90-1.11) POC Glucose (mg/dL) 128 H 182 H (70-110) mg/dL 06/13/22 Range/Units 08:38 PT 27.0 H (9.9-11.9) sec INR 2.8 H (0.90-1.11) POC Glucose (mg/dL) (70-110) mg/dL
[2022-06-14 05:58] LABS: Glucose,Whole Blood 102 mg/dL (70-110)
[2022-06-14] MEDS: INSULIN ASPART (NovoLOG) 100 UNIT/ML VIAL SQ SCH ×4 (06:32→20:32)
[2022-06-14 07:11] LABS: INR 2.8 (<1.2); Prothrombin Time 27.5 sec (9.0-12.0)
[2022-06-14] MEDS: IPRATROPIUM-ALBUTEROL 3 ML NEB INHALATION SCH ×3 (07:50→20:09)
[2022-06-14] MEDS: BACITRACIN ZINC 500 UNIT/GM OINT 28.4 GM TUBE TOPICAL SCH ×3 (08:06→20:36)
[2022-06-14] MEDS: ASPIRIN 81 MG PO SCH (08:06)
[2022-06-14] MEDS: PANTOPRAZOLE 40 MG TABLET PO SCH (08:06)
[2022-06-14] MEDS: lisinopriL 5 MG TAB PO SCH (08:06)
[2022-06-14] MEDS: METOPROLOL SUCCINATE (ER) 50 MG TAB.ER.24H PO SCH (08:06)
[2022-06-14] MEDS: TOPIRAMATE 25 MG TAB PO SCH ×2 (08:07→20:35)
[2022-06-14] MEDS: PREGABALIN 100 MG CAP PO SCH ×2 (08:07→20:34)
[2022-06-14] MEDS: GLIMEPIRIDE 4 MG TAB PO SCH (08:07)
[2022-06-14] MEDS: PIOGLITAZONE 30 MG TAB PO SCH (08:07)
[2022-06-14] MEDS: ISOSORBIDE MONONITRATE ER 15 MG TAB PO SCH (08:07)
[2022-06-14] MEDS: AMIODARONE 200 MG TAB PO SCH (08:07)
[2022-06-14 09:36] LABS: African American GFR (CKD) 73.1 (60.0-200.0); Anion Gap 8.9 mmol/L (10.00-18.00); Blood Urea Nitrogen 27.6 mg/dL (9.0-27.0); Calcium 8.5 mg/dL (8.7-10.3); Carbon Dioxide 23.1 mmol/L (20.0-27.5); Magnesium 2.2 mg/dL (1.5-2.4); Non-African American GFR(CKD) 63.1 (60.0-200.0); Potassium 4.8 mmol/L (3.5-5.5)
--- NOTE | 2022-06-14 11:10 | P.PN ---
Subjective Patient is seen in follow-up for acute kidney injury. Renal function stable. Sitting up on the chair. Denies chest pain or shortness of breath. Good urine output. No active complaints. Vital signs are stable. General: Awake. No acute distress. HEENT: Head exam is unremarkable. LUNGS: Breath sounds decreased. HEART: Rate and Rhythm are regular. ABDOMEN: Soft, no distention. EXTREMITITES: Left AKA. Objective - Vital Signs Vital signs: Vital Signs Temp 98.2 F 06/14/22 07:51 Pulse 54 L 06/14/22 07:51 Resp 16 06/14/22 07:51 BP 128/67 06/14/22 07:51 Pulse Ox 100 06/14/22 07:51 FiO2 Intake & Output 06/13/22 06/14/22 06/14/22 18:59 06:59 18:59 Output Total 550 725 Balance -550 -725 Weight 99.5 kg 101 kg Output: Urine 550 725 Other: Voiding Method Urinal - Labs CBC & Chem 7: 06/04/22 07:42 06/14/22 06:39 Labs: Abnormal Lab Results - Last 24 Hours (Table) 06/13/22 06/13/22 06/14/22 Range/Units 16:35 20:37 06:39 PT 27.5 H (9.0-12.0) sec INR 2.8 H (<1.2) Anion Gap (10.00-18.00) mmol/L BUN (9.0-27.0) mg/dL BUN/Creatinine Ratio (12.00-20.00) Ratio POC Glucose (mg/dL) 180 H 180 H (70-110) mg/dL Calcium (8.7-10.3) mg/dL 06/14/22 Range/Units 06:39 PT (9.0-12.0) sec INR (<1.2) Anion Gap 8.90 L (10.00-18.00) mmol/L BUN 27.6 H (9.0-27.0) mg/dL BUN/Creatinine Ratio 23.00 H (12.00-20.00) Ratio POC Glucose (mg/dL) (70-110) mg/dL Calcium 8.5 L (8.7-10.3) mg/dL Assessment and Plan Plan: Assessment: 1. Acute kidney injury secondary to ATN secondary to contrast-induced acute ki dney injury and diuresis. Further worsened with the use of JEVON inhibitor and nonsteroidals. Patient received IV contrast on 05/28/2022. Creatinine 1.2 today. UA benign. No hydronephrosis noted on renal ultrasound. 2. Cardiomyopathy with ejection fraction of 30%. Cardiology following. Status post cardiac catheterization this admission. 3. Diabetes mellitus. 4. Status post left AKA. 5. Urinary retention status post Gamble catheter placement. On Flomax. Gamble now removed. 6. Mild hyperkalemia secondary to acute kidney injury. Resolved. Plan: Encourage oral intake. Avoid nephrotoxins, including NSAIDs. Follow-up outpatient in 1-2 weeks post discharge.
[2022-06-14 11:22] LABS: Glucose,Whole Blood 85 mg/dL (70-110)
[2022-06-14 16:23] LABS: Glucose,Whole Blood 126 mg/dL (70-110)
[2022-06-14] MEDS: TAMSULOSIN 0.4 MG CAP.ER.24H PO SCH (17:03)
[2022-06-14] MEDS ORDERED: WARFARIN 3 MG TAB PO ONE (18:00)
[2022-06-14 20:11] LABS: Glucose,Whole Blood 134 mg/dL (70-110)
[2022-06-14] MEDS: LORATADINE 10 MG TAB PO SCH (20:35)
[2022-06-14] MEDS: ATORVASTATIN 80 MG TAB PO SCH (20:35)
--- NOTE | 2022-06-15 03:35 | P.PN ---
Subjective Progress Note Date: 06/14/22 This is a 67-year-old male who was recently admitted with chest pain, unstable angina with vascular cellulitis and being closely monitored with cardiology following closely. Plan is for cardiac catheterization in the a.m. Initially patient was scheduled for cardiac catheterization today although kidney functions slightly worsened and creatinine today is 1.59. Patient also more lethargic today and will adjust medications. Patient was placed back on heparin drip and will await cardiology report. Most recent EF is 30%. Patient is afebrile denies shortness of breath or palpitations. Patient denies nausea or vomiting and is tolerating diet. Patient was placed on gentle IV hydration and will follow-up with repeat labs in a.m. 06/01/2022 Patient is seen in follow-up today being followed by cardiology and was tentatively scheduled for cardiac catheterization today although kidney functio ns continue to be elevated and currently and kidneys with low blood pressure. Patient does have history of heart failure and recommend gentle IV hydration with follow-up labs. Blood pressure has been on the softer side and normally takes lisinopril although will hold and follow-up and will watch the labs closely. Nephrology consultation and appreciate input and recommendations. Patient continues to have retention and has been requiring straight catheterization. Patient normally takes Flomax and will continue and will also recommend indwelling Gamble catheter. Patient is continued on IV heparin and plans for possible cardiac catheterization this Monday. Continue telemetry monitoring. Encouraged oral intake and increased activity as tolerated. Patient more alert and awake today than yesterday. Patient is afebrile denies chest pain or worsening shortness of breath. No reports of nausea or vomiting and patient is tolerating diet. 06/02/2022 Subjective Patient was resting in bed with no chest pain or tachypnea or dyspnea. He was complaining of from his right ring Finger but he has small wound at the proximal interphalangeal joint with no significant surrounding cellulitis. He was on room air. Gamble catheter in a Place. Patient requesting for pain medication for his right leg, MAPS was checked on the last time he got Percocet 10 mg prescribed for him was 11/17/2021 for aurelia ntity of 12 for 3 days. We going to start gabapentin Patient will plan to undergo cardiac cath on Monday because of his worsening kidney function, marine designer and shellfish checker on the case. He has history of left BKA Distal on heparin drip and normal saline 06/03/2022 patient lying in bed comfortable complains from no chest pain and he kept on heparin drip with cardiology planned for cardiac cath Gas Transfer Operator also on the case for trending up creatinine and today went up 1.4 and 21.6. No oliguria. Blood pressure is borderline 98/56 however patient is asymptomatic. Patient for his right foot pain which is changed To Neurontin. Right finger infection is very minimal on the small wound. Patient remains on doxycycline Also patient is in normal sinus 50 mL/h 06/05/2022 Today patient was more upset about his care and pain medication, he was asking for Percocet stating that his PCP prescribed for him. Last night the on-call physician ordered Percocet [id number]. MAPS was checked last time Percocet was prescribed for him was last November that's about 6 months ago. I explained for him the risks and benefits of this medication and the risk including respiratory depression and/or and the risk of addiction, patient this and carefully but still refusing the care and he refuses examination and to answer my questions MAPS was rechecked again today, last prescription for Percocet 10-to 325 mg was on 11/17/2021 quantity 12 tablets for 3 days, and the one before that was on 08/31/2021 quantity 90 tablets for 22 days. No more Percocet prescription or other narcotics since 11/2021 as above. Therefore risk of this medication more than benefits however patient still focused on getting Percocet specifically. He states that this is for his right leg pain However patient refused exam We going to increase gabapentin 100 mg up to 300 mg 3 times a day Labs from yesterday noted including potassium of 5.2 and creatinine 1.2 Gas Transfer Operator on the case and adjusted his blood pressure medication. 06/06/2022 Patient resting in bed today, continues to report significant achy 10/10 pain to his right lower extremity and also left AKA. He is requesting oral narcotics. Patient does report he was discharged from his primary care office and also pain management services he was seeing out in [place] due to not showing up for office visits. Reports that no one is refilling his medications for him outpatient. He would benefit from establish with pain management services locally.Received xanax this morning and is sedated. Unable to finish conversation or keep eyes open long enough to carry a conversation. Falling asleep mid sentence. Xanax will be stopped. Indwelling catheter can also be discontinued today. On warfarin, INR today 1.2. 06/09/2022 Patient is seen and evaluated in follow-up today continues with significant weakness awaiting insurance authorization for ECF. Cardiology following recommend close outpatient follow-up and continue with current cardiac medications. Patient is maintained on Coumadin and INR is 1.4 today. Recommend Accu-Cheks before meals and at bedtime and continue with current medication regimen. Physical therapy to reevaluate the patient today. Patient is afebrile denies chest pain or shortness of breath. No reports of nausea or vomiting noted and patient is tolerating diet. Working with insurance authorization and peer to peer is requested. Awaiting updated therapy notes. 06/10/2022 Patient is seen and evaluated in follow-up today currently working with physical therapy and agreeable to. Patient continues with significant weakness and would highly benefit from rehab. Patient with chronic pain and also some pain seeking behaviors being referred to pain management outpatient. Patient has noncompliance with medications and follow-up appointments which has resulted in medication noncompliance as well. Patient is maintained on Lyrica along with Ultram and reports his pain is controlled at this current moment. Patient was taking large doses of Percocet in the past and has been weaned off of this. Patient does have tendency to request higher dose pain medications although becomes altered and lethargic, hence the reason that occasion were reduced and this was discussed with the patient. Patient reports his pain is chronically 9 or 10 out of 10 on the pain scale. Patient will need outpatient pain management follow-up and is agreeable with this. Reports to having some difficulty in sleeping and will add low-dose Restoril as needed. Patient Is afebrile denies chest pain or shortness of breath and is tolerating diet with no reports of nausea or vomiting noted. 06/11/2022 Patient is seen in follow up today and awaiting authorization of insurance for ECF. Patient has been cleared medically for discharge by cardiology. Patient has completed a course of antibiotics for hand cellulitis with ID following. Patient continues with weakness and not back to baseline. Patient is mostly wheelchair bound due to left aka. Patient with prolonged hospitalization recommending ecf for continued PT/OT therapy. Case management following. Afebrile and denies chest pain or shortness of breath. Tolerating diet and recommend accuchecks achs. 06/12/2022 Patient is seen today and continues to await insurance authorization. Patient was seen by cardiology and ID and cleared for discharge. Recommend ECF for continued strength and mobility. Patient being followed by case management and will follow up with them in the am about authorization. Patient is afebrile and denies chest pain or shortness of breath. 06/13/2022 Patient is seen today with no overnight issues noted. Patient is continued on current medications and reports controlled pain at this time. Patient is sleeping a little better. Recommend PT daily for updated notes and progress on continued weakness. Unable to resubmit for auth per case management and r equiring fast appeal and this process was initiated. Could take up to 72 hours for decision. Continue to encourage increased activity as tolerated. Nephrology following and repeat labs ordered for am. Patient denies chest pain or palpitations. Denies shortness of breath and is afebrile. Tolerating diet with no nausea or vomiting noted. 06/14/2022 Patient is seen in follow-up currently awaiting appeal process for possible ECF is patient continues with weakness. Patient would benefit from ECF for continued PT/OT therapy to gain some strength and mobility to get back to baseline. Patient is mostly wheelchair bound with history of left AKA. Patient being followed by nephrology and follow-up labs appear stable and will continue with current medication regimen. Encouraged increased activity as tolerated. Patient denies chest pain or palpitations. Denies shortness of breath and is afebrile. Review of Systems Constitutional: Denied any fatigue denied any fever. Cardio vascular: denied any chest pain, palpitations Gastrointestinal: denied any nausea, vomiting, diarrhea Pulmonary: Denied any shortness of breath cough Neurologic denied any new focal deficits, reports weakness All inpatient medications were reviewed and appropriate changes in these medications as dictated in the interval history and assessment and plan PHYSICAL EXAMINATION: GENERAL: The patient is alert and oriented x3, not in any acute distress. Well developed, well nourished. HEENT: Pupils are round and equally reacting to light. EOMI. No scleral icterus. No conjunctival pallor. Normocephalic, atraumatic. No pharyngeal erythema. No thyromegaly. CARDIOVASCULAR: S1 and S2 muffled PULMONARY: Diminished breath sounds bilaterally with no wheezing or crackles. ABDOMEN: Soft, nontender, nondistended, normoactive bowel sounds. No palpable organomegaly. MUSCULOSKELETAL: No joint swelling or deformity. EXTREMITIES: No cyanosis, clubbing, or pedal edema. Left AKA. NEUROLOGICAL: Gross neurological examination did not reveal any focal deficits. diffuse weakness SKIN: No rashes. Assessment: Possible acute non-ST segment elevation myocardial infarction with elevated troponin however patient had normal coronary arteries on cardiac cath. Cleared by shellfish checker Wound of the right ring finger with very minimal Cellulitis, completed oral antibiotics with ID following. Acute kidney injury most likely contrast-induced nephropathy complicated by use of JEVON inhibitor and NSAIDs, improving Drug-seeking behavior and noncompliance with medication and recommendation Cardiomyopathy with ejection fraction 30% Mediastinal and bronchial lymphadenopathy emphysematous changes Continued ongoing nicotine dependence Chronic Atrial fibrillation, on Coumadin History of asthma History of CVA/TIA Diabetes mellitus, type II, uncontrolled with hyper and hypoglycemia Gastroesophageal reflux disease Hyperlipidemia Hypertension History of PEs and DVTs GI prophylaxis DVT prophylaxis on warfarin Do not resuscitate/do not intubate Plan: Continue with current medications Monitor kidney function, nephrology following, repeat am labs reviewed and cr is 1.2 Completed oral doxycycline for hand cellulitis, ID following Continue sliding scale and Accu-Cheks before meals and at bedtime, continue holding metformin Patient will need a referral to PCP and pain management on D/C Avoid SALES TRAINER and narcotic agents if possible due to becoming altered, confused, and lethargic Recommend physical therapy daily to build strength and mobility Case management is following and working on insurance authorization. insurance authorization was resubmitted although unable to submit again and requiring fast appeal and this process has been initiated and could possibly take up to 72 hours. Patient is medically stable for discharge to [facility] and would benefit with aggressive physical therapy at the ECF. Will follow up with case management Due to multiple complex medical issues, prognosis is guarded. Possible discharge in 24-48 hours The impression and plan of care has been dictated by Rashida Peterson, Nurse Practitioner as directed. MD Eva I have performed a history and examination and MDM of this patient, discussed the same with the dictator, and agree with the dictator's assessment and plan as written ,documented as a scribe. Based on total visit time, I have performed more than 50% of the visit. Objective - Vital Signs Vital signs: Vital Signs Temp 98.2 F 06/14/22 07:51 Pulse 54 L 06/14/22 07:51 Resp 16 06/14/22 07:51 BP 128/67 06/14/22 07:51 Pulse Ox 100 06/14/22 07:51 FiO2 Intake & Output 06/13/22 06/14/22 06/14/22 18:59 06:59 18:59 Output Total 550 725 Balance -550 -725 Weight 99.5 kg 101 kg Output: Urine 550 725 Other: Voiding Method Urinal - Labs CBC & Chem 7: 06/04/22 07:42 06/14/22 06:39 Labs: Abnormal Lab Results - Last 24 Hours (Table) 06/13/22 06/13/22 06/13/22 Range/Units 08:38 16:35 20:37 PT 27.0 H (9.0-12.0) sec INR 2.8 H (<1.2) Anion Gap (10.00-18.00) mmol/L BUN (9.0-27.0) mg/dL BUN/Creatinine Ratio (12.00-20.00) Ratio POC Glucose (mg/dL) 180 H 180 H (70-110) mg/dL Calcium (8.7-10.3) mg/dL 06/14/22 06/14/22 Range/Units 06:39 06:39 PT 27.5 H (9.0-12.0) sec INR 2.8 H (<1.2) Anion Gap 8.90 L (10.00-18.00) mmol/L BUN 27.6 H (9.0-27.0) mg/dL BUN/Creatinine Ratio 23.00 H (12.00-20.00) Ratio POC Glucose (mg/dL) (70-110) mg/dL Calcium 8.5 L (8.7-10.3) mg/dL
[2022-06-15 06:21] LABS: Glucose,Whole Blood 111 mg/dL (70-110)
[2022-06-15] MEDS: traMADol 50 MG TAB PO PRN ×2 (06:29→13:13)
[2022-06-15] MEDS: INSULIN ASPART (NovoLOG) 100 UNIT/ML VIAL SQ SCH ×2 (06:30→11:50)
[2022-06-15 07:37] VITALS: RESP 18
[2022-06-15] MEDS: PIOGLITAZONE 30 MG TAB PO SCH (07:56)
[2022-06-15] MEDS: ASPIRIN 81 MG PO SCH (07:56)
[2022-06-15] MEDS: METOPROLOL SUCCINATE (ER) 50 MG TAB.ER.24H PO SCH (07:56)
[2022-06-15] MEDS: lisinopriL 5 MG TAB PO SCH (07:56)
[2022-06-15] MEDS: PREGABALIN 100 MG CAP PO SCH (07:56)
[2022-06-15] MEDS: AMIODARONE 200 MG TAB PO SCH (07:56)
[2022-06-15] MEDS: ISOSORBIDE MONONITRATE ER 15 MG TAB PO SCH (07:57)
[2022-06-15] MEDS: PANTOPRAZOLE 40 MG TABLET PO SCH (07:57)
[2022-06-15] MEDS: GLIMEPIRIDE 4 MG TAB PO SCH (07:57)
[2022-06-15] MEDS: TOPIRAMATE 25 MG TAB PO SCH (07:57)
[2022-06-15] MEDS: BACITRACIN ZINC 500 UNIT/GM OINT 28.4 GM TUBE TOPICAL SCH ×2 (07:58→12:33)
[2022-06-15 08:01] LABS: INR 2.4 (<1.2); Prothrombin Time 23.4 sec (9.0-12.0)
[2022-06-15] MEDS: IPRATROPIUM-ALBUTEROL 3 ML NEB INHALATION SCH ×2 (09:51→12:01)
[2022-06-15 11:39] LABS: Glucose,Whole Blood 143 mg/dL (70-110)
--- NOTE | 2022-06-15 12:15 | P.PN ---
Subjective Patient is seen in follow-up for acute kidney injury. Renal function stable as of yesterday. Denies chest pain or shortness of breath. Good urine output. No active complaints. Awaits placement. Vital signs are stable. General: Awake. No acute distress. HEENT: Head exam is unremarkable. LUNGS: Breath sounds decreased. HEART: Rate and Rhythm are regular. ABDOMEN: Soft, no distention. EXTREMITITES: Left AKA. Objective - Vital Signs Vital signs: Vital Signs Temp 97.7 F 06/15/22 07:37 Pulse 53 L 06/15/22 07:37 Resp 18 06/15/22 07:37 BP 127/83 06/15/22 07:37 Pulse Ox 100 06/15/22 07:37 FiO2 Intake & Output 06/14/22 06/15/22 06/15/22 18:59 06:59 18:59 Output Total 250 Balance -250 Weight 102.5 kg Output: Urine 250 Other: Voiding Method Toilet Urinal # Voids 4 - Labs CBC & Chem 7: 06/04/22 07:42 06/14/22 06:39 Labs: Abnormal Lab Results - Last 24 Hours (Table) 06/14/22 06/14/22 06/15/22 Range/Units 16:21 20:10 06:10 PT 23.4 H (9.0-12.0) sec INR 2.4 H (<1.2) POC Glucose (mg/dL) 126 H 134 H (70-110) mg/dL 06/15/22 06/15/22 Range/Units 06:19 11:38 PT (9.0-12.0) sec INR (<1.2) POC Glucose (mg/dL) 111 H 143 H (70-110) mg/dL Assessment and Plan Plan: Assessment: 1. Acute kidney injury secondary to ATN secondary to contrast-induced acute kidney injury and diuresis. Further worsened with the use of JEVON inhibitor and nonsteroidals. Patient received IV contrast on 05/28/2022. Creatinine 1.2 yesterday. UA benign. No hydronephrosis noted on renal ultrasound. 2. Cardiomyopathy with ejection fraction of 30%. Cardiology following. Status post cardiac catheterization this admission. 3. Diabetes mellitus. 4. Status post left AKA. 5. Urinary retention status post Gamble catheter placement. On Flomax. Gamble now removed. 6. Mild hyperkalemia secondary to acute kidney injury. Resolved. Plan: Encourage oral intake. Avoid nephrotoxins, including NSAIDs. Follow-up outpatient in 1-2 weeks post discharge. Await placement.
--- NOTE | 2022-06-15 14:23 | P.DS ---
Providers Date of admission: 05/28/22 14:58 Expected date of discharge: 06/15/22 Attending physician: Shadia Alvarez Consults: 05/29/22 15:29 Consult Physician Routine Consulting Provider: Sherman Ordoñez Consult Reason/Comments: cellulitis hand Do you want consulting provider notified?: Yes 06/01/22 13:30 Consult Physician Routine Consulting Provider: Pb Valenzuela Consult Reason/Comments: worsening kidney functions, chf Do you want consulting provider notified?: Yes Primary care physician: Stated None Hospital Course: Final diagnosis Possible acute non-ST segment elevation myocardial infarction with elevated troponin however patient had normal coronary arteries on cardiac cath. Cleared by animation director Wound of the right ring finger with very minimal Cellulitis Acute kidney injury most likely contrast-induced nephropathy complicated by use of JEVON inhibitor and NSAIDs, improving Drug-seeking behavior and noncompliance with medication and recommendation Cardiomyopathy with ejection fraction 30% Mediastinal and bronchial lymphadenopathy emphysematous changes Continued ongoing nicotine dependence Chronic Atrial fibrillation, on Coumadin in the office - INR 1.3 History of asthma History of CVA/TIA Diabetes mellitus, type II, uncontrolled with hyper and hypoglycemia Gastroesophageal reflux disease Hyperlipidemia Hypertension History of PEs and DVTs GI prophylaxis DVT prophylaxis on warfarin Do not resuscitate/do not intubate Discharge Disposition Patient is stable for discharge to subacute rehab and will be going to [facility]. Recommend monitoring of PT/INR as patient will continue on warfarin on discharge with INR monitoring. Patient will also discharge on pain management with pregabalin and tramadol. He is referred to pain management on discharge. Patient has also been started on flomax for urinary retention. Patient will be resumed on lisinopril at decrease dose of 5 mg po daily, has been started on imdur, aspirin 81 mg po daily. Continues on Toprol and also on statin. Recommend to follow up with cardiology on discharge. Patient needs continued blood glucose monitoring and needs to follow up with primary care. Local wound care with aquacel per infectious disease and recommend to follow up with infectious disease on discharge for continued wound care. Hospital Course This is a 67 year old male with medical history of uncontrolled diabetes, chronic atrial fibrillation, cardiomyopathy with EF of 30%, Asthma, CVA/TIA, GERD, hypertension, hyperlipidemia, PE/DVT. He is left above the knee amputation. Patient presents with concern for chest pain. He had elevated D- Dimer which CTA was negative for PE. There is question whether he was supposed to be on eliquis or warfarin outpatient, he has been started on warfarin here as he had reported the eliquis was causing chest pain and was only taking it once daily. He was admitted with consult placed to cardiology. Troponin elevation at 0.045, 0.044, 0.046, [place] [address] [place]. Patient did develop acute kidney injury after receiving contrast and was evaluated by nephrology. His creatinine has normalized to 1.1. Echocardiogram completed showing EF 30% with global hypokinesis, mild MR, mild TR, no pericardial effusion, moderately dilated left atrium. Patient underwent cardiac cathterization revealing normal coronaries and has been optimized on medical therapy with aspirin, statin, toprol, lisinopril and is being anticoagulated with warfarin. He is also started on imdur. Cardiology will follow up outpatient. He also had wound to right ring and left middle finger that was evaluated by infectious disease. Patient was started on antibiotics for possible cellulitis with local wound care recommended to finger wound with dry aquacel silver changed every 48 hours. Redness has improved. No fever or white count. Patient does live independently and has been evaluated by physical therapy and is recommended for discharge to subacute rehab and patient is agreeable at this time. He reports improvement in lower extremity pain which is mostly neuropathic. Chest pain has improved, he is less lethargic. Stable for discharge. 06/15/2022 Patient has been hospitalized for quite some time continues with weakness initially attempted peer to peer and was denied recommending possible appeal and patient wanted to undergo fast appeal. Patient was approved and is accepted at [facility] and will be going today. Patient is afebrile denies chest pain or shortness of breath. Patient denies nausea or vomiting and tolerating diet. Patient is a diabetic recommending monitoring Accu-Cheks before meals and at bedtime and patient is maintained on oral diabetic agents. Patient was continued on sliding scale as needed although has not required any coverage. Recommend consistent carb heart healthy diet. Patient is also on Coumadin and current INR today is 2.4 and continued on 3 mg currently and recommend pharmacy to dose according to INR levels. Total time taken in discharge planning greater than 35 minutes. Please see medication reconciliation for a list of current medication. Thank you for allowing us to participate in the care of this patient. Please refer to medication reconciliation sheet for a list of medications. The impression and plan of care has been dictated by Rashida Peterson, Nurse Practitioner as directed. Dr. Reina MD I have performed a history and examination and MDM of this patient, discussed the same with the dictator, and agree with the dictator's assessment and plan as written ,documented as a scribe. Based on total visit time, I have performed more than 50% of the visit. Patient Condition at Discharge: Stable Plan - Discharge Summary New Discharge Prescriptions: New Aspirin 81 mg PO DAILY #30 tab Melatonin [Melatonin ER] 10 mg PO HS #30 tab Ipratropium-Albuterol Nebulize [Duoneb 0.5 mg-3 mg/3 ml Soln] 3 ml INHALATION RT-TID PRN each PRN Reason: Shortness Of Breath Or Wheezing Temazepam [Restoril] 7.5 mg PO HS PRN 3 Days #3 cap PRN Reason: Insomnia Tamsulosin [Flomax] 0.4 mg PO PC-SUPPER #30 cap Isosorbide Mononitrate ER [Imdur] 15 mg PO DAILY #30 tab Acetaminophen Tab [Tylenol] 650 mg PO Q6HR PRN tab PRN Reason: Fever And/ Or Pain traMADol HCl [Ultram] 50 mg PO QID PRN 3 Days #12 tab PRN Reason: Pain/Discomfort lisinopriL [Zestril] 5 mg PO DAILY #30 tab Bacitracin Zinc Oint 1 applic TOPICAL QID each Pregabalin [Lyrica] 100 mg PO BID 3 Days #6 cap Topiramate [Topamax] 25 mg PO BID tab Continue Atorvastatin [Lipitor] 80 mg PO DIRECTED Omeprazole [PriLOSEC] 20 mg PO DIRECTED Loratadine 10 mg PO DIRECTED Metoprolol Succinate (ER) [Toprol XL] 50 mg PO DIRECTED Pioglitazone [Actos] 30 mg PO DIRECTED Glimepiride [Amaryl] 4 mg PO DIRECTED Amiodarone [Cordarone] 200 mg PO DIRECTED Warfarin [Coumadin] 3 mg PO DIRECTED Discontinued Topiramate [Topamax] 25 mg PO DIRECTED Nortriptyline [Pamelor] 50 mg PO DIRECTED Celecoxib [CeleBREX] 200 mg PO DIRECTED metFORMIN HCL 500 mg PO DIRECTED Pregabalin [Lyrica] 300 mg PO DIRECTED Furosemide [Lasix] 40 mg PO DIRECTED DULoxetine HCL [Cymbalta] 20 mg PO DIRECTED Ibuprofen [Advil] 400 mg PO Q6H PRN PRN Reason: Pain Potassium Chloride [Klor-Con 10 ER] 10 meq PO DIRECTED lisinopriL [Zestril] 10 mg PO DIRECTED Acetaminophen/Diphenhydramine [Tylenol PM 500-25mg] 1 - 2 tab PO QID PRN PRN Reason: Pain Discharge Medication List Atorvastatin [Lipitor] 80 mg PO DIRECTED 01/09/14 [History] Omeprazole [PriLOSEC] 20 mg PO DIRECTED 08/15/19 [History] Loratadine 10 mg PO DIRECTED 10/30/19 [History] Metoprolol Succinate (ER) [Toprol XL] 50 mg PO DIRECTED 02/29/20 [History] Pioglitazone [Actos] 30 mg PO DIRECTED 06/02/21 [History] Glimepiride [Amaryl] 4 mg PO DIRECTED 09/07/21 [History] Amiodarone [Cordarone] 200 mg PO DIRECTED 03/27/22 [History] Warfarin [Coumadin] 3 mg PO DIRECTED 05/28/22 [History] Acetaminophen Tab [Tylenol] 650 mg PO Q6HR PRN tab 06/07/22 [Rx] Aspirin 81 mg PO DAILY #30 tab 06/07/22 [Rx] Isosorbide Mononitrate ER [Imdur] 15 mg PO DAILY #30 tab 06/07/22 [Rx] Tamsulosin [Flomax] 0.4 mg PO PC-SUPPER #30 cap 06/07/22 [Rx] lisinopriL [Zestril] 5 mg PO DAILY #30 tab 06/07/22 [Rx] traMADol HCl [Ultram] 50 mg PO QID PRN 3 Days #12 tab 06/07/22 [Rx] Melatonin [Melatonin ER] 10 mg PO HS #30 tab 06/08/22 [Rx] Bacitracin Zinc Oint 1 applic TOPICAL QID each 06/15/22 [Rx] Ipratropium-Albuterol Nebulize [Duoneb 0.5 mg-3 mg/3 ml Soln] 3 ml INHALATION RT-TID PRN each 06/15/22 [Rx] Pregabalin [Lyrica] 100 mg PO BID 3 Days #6 cap 06/15/22 [Rx] Temazepam [Restoril] 7.5 mg PO HS PRN 3 Days #3 cap 06/15/22 [Rx] Topiramate [Topamax] 25 mg PO BID tab 06/15/22 [Rx] Follow up Appointment(s)/Referral(s): Duke Posadas MD [STAFF PHYSICIAN] - Vic Hayden MD [STAFF PHYSICIAN] - 1 Week Camelia Dozier MD [STAFF PHYSICIAN] - 06/14/22 2:30 pm Pb Valenzuela DO [STAFF PHYSICIAN] - 1 Week Sherman Ordoñez MD [STAFF PHYSICIAN] - 1 Week Joshua Heaton MD [STAFF PHYSICIAN] - 1 Week Ambulatory/Diagnostic Orders: Basic Metabolic Panel [LAB.AMB] Time Frame: 3 Days, Location: None Selected Complete Blood Count w/diff [LAB.AMB] Location: None Selected Prothrombin Time INR [LAB.AMB] Time Frame: 2 Days, Location: None Selected Activity/Diet/Wound Care/Special Instructions: Take your ID, insurance card, list of medications to appointment with Dr. Ramos Finger wound - community health, change every 48hrs Patient is recommended for subacute rehab Needs to follow up with pain management as well. Follow up at [facility] wound care Heart Healthy diet Patient will be discharged to subacute rehab in [place], wound recommend patient to follow up with pain management services Discharge Disposition: TRANSFER TO SNF/ECF
[2022-06-15 14:52] VITALS: BP 93/52; PULSE 58; TEMP 96.9
[2022-06-15] MEDS ORDERED: WARFARIN 2 MG TAB PO ONE (18:00)
--- NOTE | 2022-06-17 22:02 | CDI ---
Documentation Clarification Form Date: 06/17/2022 09:44:10 PM From: Rachael Earl Phone: Admit Date: 05/28/2022 02:58:00 PM Patient Name: Checo Quijano Visit Number: [id number] Discharge Date: 06/15/2022 04:23:00 PM ATTENTION: The Clinical Documentation Specialists (CDI) and [facility] Coding Staff appreciate your assistance in clarifying documentation. Please respond to the clarification below the line at the bottom and electronically sign. The CDI & [facility] Coding staff will review the response and follow-up if needed. Please note: Queries are made part of the Legal Health Record. If you have any questions, please contact the author of this message via ITS. Dr. Diogo Cantrell Possible acute non-ST segment elevation myocardial infarction is documented per Discharge Summary and throughout the chart which may lack sufficient clinical evidence/support in the medical record. Additional clarification is requested. History/Risk Factors: 67yo M, unstable angina, ACDHF, A Fib, ANDERSON, CM, HTN, HLD, DMII uncontrolled, Lupus anticoagulant syndrome, CAD, smoker, Non-compliant with medication Clinical Indicators: Mild CAD including 10-20% RCA and 20th 30% LAD stenosis. TAMARA 2-3 flow which may be consistent with microvascular dysfunction. Normal left sided filling pressures Treatment: LHC- normal coronary arteries on cardiac cath. Cleared by hand kiss setter Please clarify if acute non-ST segment elevation myocardial infarction is a valid diagnosis? [ ] Yes, acute NSTEMI is present as evidence by (additional clinical support): [ X ] No, acute NSTEMI is ruled out [ ] Other (please specify diagnosis) [ ] Unable to determine (Template Last Revised: September 2020) MTDD
--- NOTE | 2022-06-22 16:33 | P.PN ---
Subjective Progress Note Date: 06/06/22 Principal diagnosis: Bilateral hand and finger wound Patient is a 67-year-old male with multiple comorbidities including diabetic wound infection requiring [id number] amputation, presenting to the hospital with chest pain in this patient who did have traumatic wound to the left ring and right middle finger On today's evaluation that is 06/06/2022 patient continues to be afebrile, the patient is breathing comfortably on room air, the marleen denies any worsening pain to the left leg and right middle finger wound area no nausea no vomiting no abdominal pain no diarrhea Objective - Vital Signs Vital signs: Vital Signs Temp 98.2 F 06/06/22 08:50 Pulse 58 L 06/06/22 08:50 Resp 16 06/06/22 08:50 BP 121/53 06/06/22 08:50 Pulse Ox 93 L 06/06/22 08:50 FiO2 Intake & Output 06/05/22 06/06/22 06/06/22 18:59 06:59 18:59 Intake Total 360 240 Output Total 1350 2625 Balance -1350 -2265 240 Intake: Oral 360 240 Output: Urine 1350 2625 Other: Voiding Method Indwelling Catheter Indwelling Catheter - Exam GENERAL DESCRIPTION: An elderly male lying in bed in no distress RESPIRATORY SYSTEM: Unlabored breathing , decreased breath sounds at bases HEART: S1 S2 regular rate and rhythm , ABDOMEN: Soft , no tenderness EXTREMITIES: Right index finger wound with no slough tissue or surrounding redness - Labs CBC & Chem 7: 06/04/22 07:42 06/14/22 06:39 Labs: Abnormal Lab Results - Last 24 Hours (Table) 06/05/22 06/06/22 06/06/22 Range/Units 20:14 09:03 09:03 PT 12.9 H (9.0-12.0) sec INR 1.2 H (<1.2) Chloride 111 H (98-107) mmol/L Creatinine 1.26 H (0.66-1.25) mg/dL Glucose 107 H (74-99) mg/dL POC Glucose (mg/dL) 131 H (70-110) mg/dL 06/06/22 Range/Units 11:49 PT (9.0-12.0) sec INR (<1.2) Chloride (98-107) mmol/L Creatinine (0.66-1.25) mg/dL Glucose (74-99) mg/dL POC Glucose (mg/dL) 186 H (70-110) mg/dL Assessment and Plan (1) Finger wound, simple, open Status: Acute Code(s): S61.209A - UNSP OPEN WOUND OF UNSP FINGER W/O DAMAGE TO NAIL, INIT SNOMED Code(s): 106149495 (2) Abnormal CT scan, chest Status: Acute Code(s): R93.89 - ABNORMAL FINDINGS ON DX IMAGING OF OTH BODY STRUCTURES SNOMED Code(s): 48965408074322470 Plan: 1patient did have a wound to the right ring and left middle finger traumatic. Both wounds superficial and did not have significant surrounding swelling redn ess concerning for cellulitis and the x-ray did not show any bony changes at that location patient do have a history of MRSA infection 2patient presenting with increasing shortness of breath and chest pain did have CT angiogram of the chest which was abnormal concerning for bilateral lower lobe consolidation possibly fluid related clinical not behaving as pneumonia,patient did have normal procalcitonin level that will make pneumonia to be less likely. 3local wound care to the right ring finger as well as left middle finger wound with a dry Aquacel silver dressing change every 48 hour. 4Patient has shown clinical improvement as for his right ring and left middle finger wounds is concerned 5- the patient will continue local wound care with Aquacel silver dressing and oral doxycycline and monitor clinical course closely Time with Patient: Less than 30
--- NOTE | 2022-06-22 16:34 | P.PN ---
Subjective Progress Note Date: 06/07/22 Principal diagnosis: Bilateral hand and finger wound Patient is a 67-year-old male with multiple comorbidities including diabetic wound infection requiring [id number]-[id number]-govd amputation, presenting to the hospital with chest pain in this patient who did have traumatic wound to the left ring and right middle finger On today's evaluation that is 06/07/2022 patient remains to be afebrile, the patient is breathing comfortably on room air, the patient pain to the left leg and right middle finger wound area has decreased in intensity, no nausea no vomiting no abdominal pain no diarrhea Objective - Vital Signs Vital signs: Vital Signs Temp 97.5 F L 06/07/22 14:29 Pulse 60 06/07/22 14:29 Resp 18 06/07/22 14:29 BP 113/66 06/07/22 14:29 Pulse Ox 97 06/07/22 14:29 FiO2 Intake & Output 06/06/22 06/07/22 06/07/22 18:59 06:59 18:59 Intake Total 240 Output Total 100 850 210 Balance 140 -850 -210 Intake: Oral 240 Output: Urine 100 850 210 Uretheral (Gamble) 100 Other: Voiding Method Indwelling Catheter # Voids 0 - Exam GENERAL DESCRIPTION: An elderly male lying in bed in no distress RESPIRATORY SYSTEM: Unlabored breathing , decreased breath sounds at bases HEART: S1 S2 regular rate and rhythm , ABDOMEN: Soft , no tenderness EXTREMITIES: Right index finger wound with no slough tissue or surrounding redness - Labs CBC & Chem 7: 06/04/22 07:42 06/14/22 06:39 Labs: Abnormal Lab Results - Last 24 Hours (Table) 06/06/22 06/06/22 06/07/22 Range/Units 16:32 21:01 06:26 PT 12.8 H (9.0-12.0) sec INR 1.3 H (<1.2) Anion Gap (10.00-18.00) mmol/L POC Glucose (mg/dL) 155 H 231 H (70-110) mg/dL Calcium (8.7-10.3) mg/dL 06/07/22 06/07/22 Range/Units 06:26 11:34 PT (9.0-12.0) sec INR (<1.2) Anion Gap 9.50 L (10.00-18.00) mmol/L POC Glucose (mg/dL) 210 H (70-110) mg/dL Calcium 8.5 L (8.7-10.3) mg/dL Assessment and Plan (1) Finger wound, simple, open Status: Acute Code(s): S61.209A - UNSP OPEN WOUND OF UNSP FINGER W/O DAMAGE TO NAIL, INIT SNOMED Code(s): 032067550 (2) Abnormal CT scan, chest Status: Acute Code(s): R93.89 - ABNORMAL FINDINGS ON DX IMAGING OF OTH BODY STRUCTURES SNOMED Code(s): 42478160716126145 Plan: 1patient did have a wound to the right ring and left middle finger traumatic. Both wounds superficial and did not have significant surrounding swelling redness concerning for cellulitis and the x-ray did not show any bony changes at that location patient do have a history of MRSA infection 2patient presenting with increasing shortness of breath and chest pain did have CT angiogram of the chest which was abnormal concerning for bilateral lower lobe consolidation possibly fluid related clinical not behaving as pneumonia,patient did have normal procalcitonin level that will make pneumonia to be less likely. 3local wound care to the right ring finger as well as left middle finger wound with a dry Aquacel silver dressing change every 48 hour. 4Patient continued to show clinical improvement as for his right ring and left middle finger wounds is concerned 5- the patient advised local wound care with Aquacel silver dressing and continue with oral doxycycline 100 mg twice a day Time with Patient: Less than 30
--- NOTE | 2022-06-22 16:35 | P.PN ---
Subjective Progress Note Date: 06/08/22 Principal diagnosis: Bilateral hand and finger wound Patient is a 67-year-old male with multiple comorbidities including diabetic wound infection requiring hfchy-[id number]-[id number] amputation, presenting to the hospital with chest pain in this patient who did have traumatic wound to the left ring and right middle finger On today's evaluation that is 06/08/2022 patient denies any fever or any chills, the patient continues to be breathing comfortably on room air, the patient denies any worsening pain to the left leg and right middle finger wound, the patient denies nausea no vomiting no abdominal pain no diarrhea Objective - Vital Signs Vital signs: Vital Signs Temp 98.3 F 06/08/22 07:55 Pulse 53 L 06/08/22 07:55 Resp 12 06/08/22 07:55 BP 135/66 06/08/22 07:55 Pulse Ox 96 06/08/22 07:55 FiO2 Intake & Output 06/07/22 06/08/22 06/08/22 18:59 06:59 18:59 Output Total 430 1100 Balance -430 -1100 Weight 96.9 kg Output: Urine 430 1100 Other: Voiding Method Indwelling Catheter Urinal - Exam GENERAL DESCRIPTION: An elderly male lying in bed in no distress RESPIRATORY SYSTEM: Unlabored breathing , decreased breath sounds at bases HEART: S1 S2 regular rate and rhythm , ABDOMEN: Soft , no tenderness EXTREMITIES: Right index finger wound with no slough tissue or surrounding redness - Labs CBC & Chem 7: 06/04/22 07:42 06/14/22 06:39 Labs: Abnormal Lab Results - Last 24 Hours (Table) 06/07/22 06/08/22 06/08/22 Range/Units 19:19 06:09 10:46 PT 13.3 H (9.0-12.0) sec INR 1.3 H (<1.2) POC Glucose (mg/dL) 175 H 179 H (70-110) mg/dL Assessment and Plan (1) Finger wound, simple, open Status: Acute Code(s): S61.209A - UNSP OPEN WOUND OF UNSP FINGER W/O DAMAGE TO NAIL, INIT SNOMED Code(s): 104271513 (2) Abnormal CT scan, chest Status: Acute Code(s): R93.89 - ABNORMAL FINDINGS ON DX IMAGING OF OTH BODY STRUCTURES SNOMED Code(s): 41268569215401553 Plan: 1patient did have a wound to the right ring and left middle finger traumatic. Both wounds superficial and did not have significant surrounding swelling redness concerning for cellulitis and the x-ray did not show any bony changes at that location patient do have a history of MRSA infection 2patient presenting with increasing shortness of breath and chest pain did have CT angiogram of the chest which was abnormal concerning for bilateral lower lobe consolidation possibly fluid related clinical not behaving as pneumonia,patient did have normal procalcitonin level that will make pneumonia to be less likely. 3local wound care to the right ring finger as well as left middle finger wound with a dry Aquacel silver dressing change every 48 hour. 4Patient continued to show clinical improvement as for his right ring and left middle finger wounds is concerned 5- the patient to continue with oral doxycycline 100 mg twice a day and monitor clinical course closely Time with Patient: Less than 30
--- NOTE | 2022-06-22 16:36 | P.PN ---
Subjective Progress Note Date: 06/09/22 Principal diagnosis: Bilateral hand and finger wound Patient is a 67-year-old male with multiple comorbidities including diabetic wound infection requiring xbbak-mku-wyqk amputation, presenting to the hospital with chest pain in this patient who did have traumatic wound to the left ring and right middle finger On today's evaluation that is 06/09/2022 patient denies any fever or chills, the patient continues to be breathing comfortably on room air, the patient pain to the left leg and right middle finger wound has improved, the patient denies nausea no vomiting no abdominal pain no diarrhea with antibiotic therapy Objective - Vital Signs Vital signs: Vital Signs Temp 98.3 F 06/09/22 13:49 Pulse 55 L 06/09/22 13:49 Resp 18 06/09/22 13:49 BP 115/63 06/09/22 13:49 Pulse Ox 98 06/09/22 13:49 FiO2 Intake & Output 06/08/22 06/09/22 06/09/22 18:59 06:59 18:59 Intake Total 1000 Output Total 1250 1700 600 Balance -250 -1700 -600 Weight 103 kg Intake: Oral 1000 Output: Urine 1250 1700 600 Other: Voiding Method Urinal - Exam GENERAL DESCRIPTION: An elderly male lying in bed in no distress RESPIRATORY SYSTEM: Unlabored breathing , decreased breath sounds at bases HEART: S1 S2 regular rate and rhythm , ABDOMEN: Soft , no tenderness EXTREMITIES: Right index finger wound with no slough tissue or surrounding redness - Labs CBC & Chem 7: 06/04/22 07:42 06/14/22 06:39 Labs: Abnormal Lab Results - Last 24 Hours (Table) 06/08/22 06/09/22 06/09/22 Range/Units 19:55 06:50 11:20 PT 14.5 H (9.0-12.0) sec INR 1.4 H (<1.2) POC Glucose (mg/dL) 194 H 190 H (70-110) mg/dL Assessment and Plan (1) Finger wound, simple, open Status: Acute Code(s): S61.209A - UNSP OPEN WOUND OF UNSP FINGER W/O DAMAGE TO NAIL, INIT SNOMED Code(s): 480058360 (2) Abnormal CT scan, chest Status: Acute Code(s): R93.89 - ABNORMAL FINDINGS ON DX IMAGING OF OTH BODY STRUCTURES SNOMED Code(s): 24112003710912687 Plan: 1patient did have a wound to the right ring and left middle finger traumatic. Both wounds superficial and did not have significant surrounding swelling redness concerning for cellulitis and the x-ray did not show any bony changes at that location patient do have a history of MRSA infection 2patient presenting with increasing shortness of breath and chest pain did have CT angiogram of the chest which was abnormal concerning for bilateral lower lobe consolidation possibly fluid related clinical not behaving as pneumonia,patient did have normal procalcitonin level that will make pneumonia to be less likely. 3local wound care to the right ring finger as well as left middle finger wound with a dry Aquacel silver dressing change every 48 hour. 4Patient continued to show clinical improvement as for his right ring and left middle finger wounds is concerned 5- the patient has received adequate antibiotic with oral doxycycline 100 mg twice a day we will go ahead and discontinue doxycycline and watch the patient closely off antibiotic Time with Patient: Less than 30
--- NOTE | 2022-06-22 16:39 | P.PN ---
Subjective Progress Note Date: 06/10/22 Principal diagnosis: Bilateral hand and finger wound Patient is a 67-year-old male with multiple comorbidities including diabetic wound infection requiring lbifm-ckf-hwhl amputation, presenting to the hospital with chest pain in this patient who did have traumatic wound to the left ring and right middle finger On today's evaluation that is 06/10/2022 patient remains to be afebrile, the patient denies any chest pain shortness of breath or cough, the patient pain to the left leg and right middle finger wound has almost resolved, the patient denies nausea no vomiting no abdominal pain no diarrhea with antibiotic therapy Objective - Vital Signs Vital signs: Vital Signs Temp 98.9 F 06/10/22 08:00 Pulse 56 L 06/10/22 08:00 Resp 18 06/10/22 08:00 BP 111/63 06/10/22 08:00 Pulse Ox 99 06/10/22 08:00 FiO2 Intake & Output 06/09/22 06/10/22 06/10/22 18:59 06:59 18:59 Output Total 1100 2300 550 Balance -1100 -2300 -550 Weight 104 kg Output: Urine 1100 2300 550 Other: # Bowel Movements 1 - Exam GENERAL DESCRIPTION: An elderly male lying in bed in no distress RESPIRATORY SYSTEM: Unlabored breathing , decreased breath sounds at bases HEART: S1 S2 regular rate and rhythm , ABDOMEN: Soft , no tenderness EXTREMITIES: Right index finger wound almost healed no surrounding redness or drainage - Labs CBC & Chem 7: 06/04/22 07:42 06/14/22 06:39 Labs: Abnormal Lab Results - Last 24 Hours (Table) 06/09/22 06/09/22 06/09/22 Range/Units 16:34 19:16 21:18 PT (9.0-12.0) sec INR (<1.2) POC Glucose (mg/dL) 125 H 331 H 133 H (70-110) mg/dL 06/09/22 06/10/22 Range/Units 21:22 05:02 PT 20.3 H (9.0-12.0) sec INR 2.1 H (<1.2) POC Glucose (mg/dL) 141 H (70-110) mg/dL Assessment and Plan (1) Finger wound, simple, open Status: Acute Code(s): S61.209A - UNSP OPEN WOUND OF UNSP FINGER W/O DAMAGE TO NAIL, INIT SNOMED Code(s): 872785603 (2) Abnormal CT scan, chest Status: Acute Code(s): R93.89 - ABNORMAL FINDINGS ON DX IMAGING OF OTH BODY STRUCTURES SNOMED Code(s): 71979278244384159 Plan: 1patient did have a wound to the right ring and left middle finger traumatic. Both wounds superficial and did not have significant surrounding swelling redness concerning for cellulitis and the x-ray did not show any bony changes at that location patient do have a history of MRSA infection 2patient presenting with increasing shortness of breath and chest pain did have CT angiogram of the chest which was abnormal concerning for bilateral lower lobe consolidation possibly fluid related clinical not behaving as pneumonia,patient did have normal procalcitonin level that will make pneumonia to be less likely. 3local wound care to the right ring finger as well as left middle finger wound with a dry Aquacel silver dressing change every 48 hour. 4Patient continued to show clinical improvement as for his right ring and left middle finger wounds is concerned 5- the patient underlying selected this has been adequately treated no need for further antibiotic therapy at this point infectious diseases will follow the patient as needed, please call back if any question regarding his infectious diseases care Time with Patient: Less than 30
== END 2022-06-15 16:23 | DRG 286 ==
LOC: EC 12:25 → 3SCARD 14:58 → 4SSUR 06-06 15:08
PROVIDERS: ADMIT Hospitalist; ATTEND Hospitalist
PROC: B2111ZZ Fluoroscopy of Multiple Coronary Arteries using Low Osmolar Contrast (ICD-10-PCS; 2022-06-03)
PROC: 4A023N7 Measurement of Cardiac Sampling and Pressure, Left Heart, Percutaneous Approach (ICD-10-PCS; principal; 2022-06-03 10:00)
DX: I25.110 Atherosclerotic heart disease of native coronary artery with unstable angina pectoris (principal); I50.33 Acute on chronic diastolic (congestive) heart failure; N17.0 Acute kidney failure with tubular necrosis; D68.62 Lupus anticoagulant syndrome; I48.20 Chronic atrial fibrillation, unspecified; E11.649 Type 2 diabetes mellitus with hypoglycemia without coma; E11.42 Type 2 diabetes mellitus with diabetic polyneuropathy; I11.0 Hypertensive heart disease with heart failure; I08.3 Combined rheumatic disorders of mitral, aortic and tricuspid valves; J44.9 Chronic obstructive pulmonary disease, unspecified; E11.65 Type 2 diabetes mellitus with hyperglycemia; Z95.828 Presence of other vascular implants and grafts; I42.9 Cardiomyopathy, unspecified; Z89.612 Acquired absence of left leg above knee; Z66 Do not resuscitate; T45.516A Underdosing of anticoagulants, initial encounter; T38.3X6A Underdosing of insulin and oral hypoglycemic [antidiabetic] drugs, initial encounter; S61.204A Unspecified open wound of right ring finger without damage to nail, initial encounter; T50.8X5A Adverse effect of diagnostic agents, initial encounter; N14.11 Contrast-induced nephropathy; Z76.5 Malingerer [conscious simulation]; R59.0 Localized enlarged lymph nodes; I48.0 Paroxysmal atrial fibrillation; E87.5 Hyperkalemia; E78.5 Hyperlipidemia, unspecified; K21.9 Gastro-esophageal reflux disease without esophagitis; R33.9 Retention of urine, unspecified; G89.29 Other chronic pain; F17.210 Nicotine dependence, cigarettes, uncomplicated; M54.50 Low back pain, unspecified; R41.82 Altered mental status, unspecified; S61.202A Unspecified open wound of right middle finger without damage to nail, initial encounter; I49.8 Other specified cardiac arrhythmias; R03.1 Nonspecific low blood-pressure reading; T39.395A Adverse effect of other nonsteroidal anti-inflammatory drugs [NSAID], initial encounter; T46.4X5A Adverse effect of angiotensin-converting-enzyme inhibitors, initial encounter; M19.041 Primary osteoarthritis, right hand; S61.200A Unspecified open wound of right index finger without damage to nail, initial encounter; Y04.8XXA Assault by other bodily force, initial encounter; Z20.822 Contact with and (suspected) exposure to COVID-19; Z96.642 Presence of left artificial hip joint; Z79.01 Long term (current) use of anticoagulants; Z79.899 Other long term (current) drug therapy; Z86.73 Personal history of transient ischemic attack (TIA), and cerebral infarction without residual deficits; Z86.711 Personal history of pulmonary embolism; Z79.1 Long term (current) use of non-steroidal anti-inflammatories (NSAID); Z79.84 Long term (current) use of oral hypoglycemic drugs; Z99.3 Dependence on wheelchair; Z86.718 Personal history of other venous thrombosis and embolism; Z86.14 Personal history of Methicillin resistant Staphylococcus aureus infection; Z91.14 Patient's other noncompliance with medication regimen; Z87.01 Personal history of pneumonia (recurrent); Z88.1 Allergy status to other antibiotic agents; Z88.8 Allergy status to other drugs, medicaments and biological substances
CPT/HCPCS: 36415; 71045; 71046; 71275; 76770; 80048; 80053; 81003; 83735; 83880; 84132; 84145; 84484; 85025; 85379; 85610; 85730; 86140; 87635; 93005; 93306; 93458; 94640; 94760; 96365; 96366; 96375; 99291

== ENCOUNTER 2022-06-22 13:58 | Inpatient (IN) | payer MEDICARE ==
[2022-06-22] MEDS ORDERED: DILTIAZEM DRIP BOLUS FROM BAG 1 MG SOLN IV ONE (14:22)
[2022-06-22 14:42] LABS: INR 1.1 (<1.2); Prothrombin Time 11.5 sec (9.0-12.0)
[2022-06-22 14:47] LABS: Albumin 3.3 g/dL (3.5-5.0); Potassium 4.1 mmol/L (3.5-5.1); Total Bilirubin 0.3 mg/dL (0.2-1.3); Total Protein 6.9 g/dL (6.3-8.2)
[2022-06-22] MEDS: DILTIAZEM 125 MG in SODIUM CHLORIDE 0.9% 100 ML IV SCH (14:50)
--- NOTE | 2022-06-22 14:57 | ED ---
General Adult HPI - General Chief complaint: Arrhythmia/Palpitations Stated complaint: ARACELIS Time Seen by Provider: 06/22/22 14:05 Source: patient, EMS, RN notes reviewed, old records reviewed Mode of arrival: EMS Limitations: physical limitation - History of Present Illness Initial comments: This is a 67-year-old male presents emergency Department with a past medical history significant for atrial fibrillation patient also has diabetes and high blood pressure. Patient has a BKA on the left. Patient comes in today because he states he's been short of breath and having difficulty breathing since yesterday. Patient states the chest pain has been constant since yesterday. Patient states he has a little bit of a cough but no sputum production patient denies any fever chills. Patient denies any abdominal pain patient denies nausea vomiting diarrhea. Patient denies any new trauma. Patient states his leg is more swollen than normal on the right. - Related Data Home Medications Medication Instructions Recorded Confirmed Atorvastatin [Lipitor] 80 mg PO DIRECTED 01/09/14 06/22/22 Omeprazole [PriLOSEC] 20 mg PO DIRECTED 08/15/19 06/22/22 Loratadine 10 mg PO DIRECTED 10/30/19 06/22/22 Metoprolol Succinate (ER) [Toprol 50 mg PO DIRECTED 02/29/20 06/22/22 XL] Pioglitazone [Actos] 30 mg PO DIRECTED 06/02/21 06/22/22 Glimepiride [Amaryl] 4 mg PO DIRECTED 09/07/21 06/22/22 Amiodarone [Cordarone] 200 mg PO DIRECTED 03/27/22 06/22/22 Warfarin [Coumadin] 3 mg PO DIRECTED 05/28/22 06/22/22 Bacitracin Zinc Oint 1 applic TOPICAL QID PRN 06/22/22 06/22/22 Ipratropium-Albuterol Nebulize 3 ml INHALATION DIRECTED PRN 06/22/22 06/22/22 [Duoneb 0.5 mg-3 mg/3 ml Soln] Isosorbide Mononitrate ER [Imdur] 15 mg PO DIRECTED 06/22/22 06/22/22 Pregabalin [Lyrica] 100 mg PO DIRECTED 06/22/22 06/22/22 Tamsulosin [Flomax] 0.4 mg PO DIRECTED 06/22/22 06/22/22 Temazepam [Restoril] 7.5 mg PO DIRECTED PRN 06/22/22 06/22/22 Topiramate [Topamax] 25 mg PO DIRECTED 06/22/22 06/22/22 lisinopriL [Zestril] 5 mg PO DIRECTED 06/22/22 06/22/22 Previous Rx's Medication Instructions Recorded Acetaminophen Tab [Tylenol] 650 mg PO Q6HR PRN tab 06/07/22 Aspirin 81 mg PO DAILY #30 tab 06/07/22 traMADol HCl [Ultram] 50 mg PO QID PRN 3 Days #12 tab 06/07/22 Melatonin [Melatonin ER] 10 mg PO HS #30 tab 06/08/22 Allergies Allergy/AdvReac Type Severity Reaction Status Date / Time baclofen Allergy Unknown Verified 06/22/22 15:47 apixaban [From Eliquis] AdvReac "felt Verified 06/22/22 15:47 funny" Review of Systems ROS Statement: Those systems with pertinent positive or pertinent negative responses have been documented in the HPI. ROS Other: All systems not noted in ROS Statement are negative. Past Medical History Past Medical History: Atrial Fibrillation, Asthma, COPD, CVA/TIA, Diabetes Mellitus, Deep Vein Thrombosis (DVT), GERD/Reflux, Hyperlipidemia, Hypertension, Neurologic Disorder, Osteoarthritis (OA), Pneumonia, Pulmonary Embolus (PE), Skin Disorder, Vascular Disorder Additional Past Medical History / Comment(s): Pt admitted to [facility] on 11/20/20 with hyperkalemia, hyperglycemia, uncontrolled diabetes. Other hx: Lupus anticoagulant, DVTs bilateral legs, PEs bilateral lungs, pt has zina filter, L AKA/wheelchair bound, NIDDM type II, neuropathy bilateral hands, wound care patient for buttock wound, now healed, TIAs, pneumothorax, past migraines, chronic low back pain, R leg edema at times, varicosities. History of Any Multi-Drug Resistant Organisms: MRSA Date of last positivie culture/infection: 06/04/21 MDRO Source:: Right Leg MRSA Past Surgical History: Adenoidectomy, Appendectomy, Tonsillectomy Additional Past Surgical History / Comment(s): 1980s [place]wood filter, stents in vessels "in pelvic area", total L hip arthroplasty, vein strippings, colonoscopy. left leg amputation Past Anesthesia/Blood Transfusion Reactions: No Reported Reaction Additional Past Anesthesia/Blood Transfusion Reaction / Comment(s): Pt has received blood in past without reaction. Past Psychological History: No Psychological Hx Reported Smoking Status: Current every day smoker Past Alcohol Use History: None Reported Past Drug Use History: Marijuana - Past Family History Mother Family Medical History: Coronary Artery Disease (CAD), Myocardial Infarction (SD), Vascular Disorder Additional Family Medical History / Comment(s): heart disease, peripheral v ascular disease. Father Family Medical History: Diabetes Mellitus, Renal Disease General Exam - General Exam Comments Initial Comments: GENERAL: Patient is well-developed and well-nourished. Patient is nontoxic and well- hydrated and is in mild distress. ENT: Neck is soft and supple. No significant lymphadenopathy is noted. Oropharynx is clear. Moist mucous membranes. Neck has full range of motion without eliciting any pain. EYES: The sclera were anicteric and conjunctiva were pink and moist. Extraocular movements were intact and pupils were equal round and reactive to light. Eyelids were unremarkable. PULMONARY: Patient has crackles in the bases. CARDIOVASCULAR: Patient is tachycardic at about 130 beats a minute and it is irregularly irregular. ABDOMEN: Soft and nontender with normal bowel sounds. SKIN: Skin is clear with no lesions or rashes and otherwise unremarkable. NEUROLOGIC: Patient is alert and oriented x3. Cranial nerves II through XII are grossly intact. Motor and sensory are also intact. Normal speech, volume and content. Symmetrical smile. MUSCULOSKELETAL: Normal extremities with adequate strength and full range of motion. Patient has 2+ edema on the right leg. LYMPHATICS: No significant lymphadenopathy is noted PSYCHIATRIC: Normal psychiatric evaluation. Limitations: physical limitation Course Vital Signs 06/22/22 06/22/22 06/22/22 14:03 14:06 14:16 Temperature 97.8 F Pulse Rate 147 H 146 H Pulse Rate [ 130 H Project Management Director ] Respiratory 18 18 Rate Blood Pressure 158/127 122/100 O2 Sat by Pulse 99 98 Oximetry Medical Decision Making - Medical Decision Making EKG was interpreted by me EKG shows atrial fibrillation with rapid ventricular response at 143 bpm. QRS is 122 QT interval 328 QTC is 411. Patient's EKG shows no ST segment elevation or depression. Chests x-ray was interpreted by me. Chest x-ray shows mild pulmonary edema. Patient was started on a Cardizem drip after I gave the patient a Cardizem bolus. [facility] and the patient wrote admitting orders and consult cardiology. Patient was already on a blood thinner. - Lab Data Result diagrams: 06/22/22 14:13 06/22/22 14:13 Lab Results 06/22/22 06/22/22 06/22/22 Range/Units 14:13 14:13 14:13 WBC 7.3 (3.8-10.6) k/uL RBC 3.88 L (4.30-5.90) m/uL Hgb 10.8 L (13.0-17.5) gm/dL Hct 34.3 L (39.0-53.0) % MCV 88.5 D (80.0-100.0) fL MCH 27.9 (25.0-35.0) pg MCHC 31.5 (31.0-37.0) g/dL RDW 15.6 H (11.5-15.5) % Plt Count 269 (150-450) k/uL MPV 8.5 Neutrophils % 72 % Lymphocytes % 20 % Monocytes % 5 % Eosinophils % 1 % Basophils % 0 % Neutrophils # 5.2 (1.3-7.7) k/uL Lymphocytes # 1.4 (1.0-4.8) k/uL Monocytes # 0.4 (0-1.0) k/uL Eosinophils # 0.1 (0-0.7) k/uL Basophils # 0.0 (0-0.2) k/uL Hypochromasia Marked PT 11.5 (9.0-12.0) sec INR 1.1 (<1.2) Sodium 136 L (137-145) mmol/L Potassium 4.1 (3.5-5.1) mmol/L Chloride 107 (98-107) mmol/L Carbon Dioxide 24 (22-30) mmol/L Anion Gap 5 mmol/L BUN 21 H (9-20) mg/dL Creatinine 1.22 (0.66-1.25) mg/dL Est GFR (CKD-EPI)AfAm 72 (>60 ml/min/1.73 sqM) Est GFR (CKD-EPI)NonAf 62 (>60 ml/min/1.73 sqM) Glucose 157 H (74-99) mg/dL Calcium 8.0 L (8.4-10.2) mg/dL Magnesium (1.6-2.3) mg/dL Total Bilirubin 0.3 (0.2-1.3) mg/dL AST 22 (17-59) U/L ALT 19 (4-49) U/L Alkaline Phosphatase 95 (38-126) U/L Troponin I (0.000-0.034) ng/mL NT-Pro-B Natriuret Pep pg/mL Total Protein 6.9 (6.3-8.2) g/dL Albumin 3.3 L (3.5-5.0) g/dL 06/22/22 06/22/22 06/22/22 Range/Units 14:13 14:13 14:13 WBC (3.8-10.6) k/uL RBC (4.30-5.90) m/uL Hgb (13.0-17.5) gm/dL Hct (39.0-53.0) % MCV (80.0-100.0) fL MCH (25.0-35.0) pg MCHC (31.0-37.0) g/dL RDW (11.5-15.5) % Plt Count (150-450) k/uL MPV Neutrophils % % Lymphocytes % % Monocytes % % Eosinophils % % Basophils % % Neutrophils # (1.3-7.7) k/uL Lymphocytes # (1.0-4.8) k/uL Monocytes # (0-1.0) k/uL Eosinophils # (0-0.7) k/uL Basophils # (0-0.2) k/uL Hypochromasia PT (9.0-12.0) sec INR (<1.2) Sodium (137-145) mmol/L Potassium (3.5-5.1) mmol/L Chloride (98-107) mmol/L Carbon Dioxide (22-30) mmol/L Anion Gap mmol/L BUN (9-20) mg/dL Creatinine (0.66-1.25) mg/dL Est GFR (CKD-EPI)AfAm (>60 ml/min/1.73 sqM) Est GFR (CKD-EPI)NonAf (>60 ml/min/1.73 sqM) Glucose (74-99) mg/dL Calcium (8.4-10.2) mg/dL Magnesium 1.8 (1.6-2.3) mg/dL Total Bilirubin (0.2-1.3) mg/dL AST (17-59) U/L ALT (4-49) U/L Alkaline Phosphatase (38-126) U/L Troponin I 0.032 (0.000-0.034) ng/mL NT-Pro-B Natriuret Pep 6580 pg/mL Total Protein (6.3-8.2) g/dL Albumin (3.5-5.0) g/dL Critical Care Time Critical Care Time: Yes Total Critical Care Time: 35 Disposition Clinical Impression: Atrial fibrillation with rapid ventricular response Disposition: ADMITTED IP TO THIS HOSP Referrals: None,Stated [Primary Care Provider] - 1-2 days Time of Disposition: 17:16
[2022-06-22 15:06] LABS: Basophils % (A) 0 %; Eosinophils # (A) 0.1 k/uL (0-0.7); Eosinophils % (A) 1 %; HCT 34.3 % (39.0-53.0); HGB 10.8 gm/dL (13.0-17.5); Hypochromasia Marked; Lymphocytes # (A) 1.4 k/uL (1.0-4.8); Lymphocytes % (A) 20 %; MCH 27.9 pg (25.0-35.0); MCHC 31.5 g/dL (31.0-37.0); Mean Platelet Volume 8.5; Monocytes # (A) 0.4 k/uL (0-1.0); Monocytes % (A) 5 %; Neutrophils # (A) 5.2 k/uL (1.3-7.7); Neutrophils % (A) 72 %; Platelet Count 269 k/uL (150-450); RBC 3.88 m/uL (4.30-5.90); RDW 15.6 % (11.5-15.5); WBC 7.3 k/uL (3.8-10.6)
[2022-06-22 15:08] LABS: MCV 88.5 fL (80.0-100.0)
--- NOTE | 2022-06-22 15:12 | XR ---
EXAMINATION TYPE: XR chest 2V DATE OF EXAM: 06/22/2022 COMPARISON: 05/31/2022 INDICATION: Short of breath and chest pressure TECHNIQUE: Frontal and lateral views of the chest are obtained. FINDINGS: The heart size is normal. The pulmonary vasculature is normal. Mild left lower lobe infiltrate appears to be present. Correlate for atelectasis and pneumonia. Follo w-up is recommended. There is hyperinflation flattening the diaphragms compatible with COPD. IMPRESSION: 1. Clinical correlation recommended for left lower lobe atelectasis or pneumonia. Follow-up is recomm ended. 2. COPD
[2022-06-22] MEDS ORDERED: NITROGLYCERIN SL TABS 0.4 MG TAB SUBLINGUAL PRN (17:16)
[2022-06-22] MEDS ORDERED: DEXTROSE 50% SYRINGE 50 ML IVP PRN ×2 (18:36)
[2022-06-22] MEDS: TAMSULOSIN 0.4 MG CAP.ER.24H PO SCH (19:20)
[2022-06-22] MEDS ORDERED: HYDROmorphone 0.5 MG/0.5 ML SYRINGE IVP STA (19:26)
[2022-06-22] MEDS ORDERED: WARFARIN 5 MG TAB PO ONE (20:00)
[2022-06-22] MEDS: PREGABALIN 100 MG CAP PO SCH (20:36)
[2022-06-22] MEDS: MELATONIN 5 MG TABLET PO SCH (20:36)
[2022-06-22] MEDS: INSULIN ASPART (NovoLOG) 100 UNIT/ML VIAL SQ SCH (20:37)
[2022-06-22 20:39] LABS: Glucose,Whole Blood 122 mg/dL (70-110)
[2022-06-22] MEDS: IPRATROPIUM-ALBUTEROL 3 ML NEB INHALATION PRN (20:57)
[2022-06-22] MEDS ORDERED: TOPIRAMATE 25 MG TAB PO SCH ×2 (21:00)
[2022-06-22] MEDS: ENOXAPARIN 80 MG/0.8 ML SYRINGE SQ SCH (22:05)
[2022-06-22] MEDS: INSULIN DETEMIR (LEVEMIR) 100 UNIT/ML SYR SQ SCH (22:05)
[2022-06-23] MEDS: traMADol 50 MG TAB PO PRN ×3 (02:29→15:36)
[2022-06-23] MEDS: DILTIAZEM 125 MG in SODIUM CHLORIDE 0.9% 100 ML IV SCH (05:17)
[2022-06-23] MEDS: INSULIN ASPART (NovoLOG) 100 UNIT/ML VIAL SQ SCH ×4 (06:22→21:18)
[2022-06-23 06:23] LABS: Glucose,Whole Blood 111 mg/dL (70-110)
[2022-06-23] MEDS: PANTOPRAZOLE 40 MG TABLET PO SCH (06:23)
[2022-06-23 07:30] LABS: African American GFR (CKD) >90 (>60 ml/min/1.73 sqM); Anion Gap 7 mmol/L; Blood Urea Nitrogen 19 mg/dL (9-20); Carbon Dioxide 21 mmol/L (22-30); Chloride 109 mmol/L (98-107); Glucose 105 mg/dL (74-99); Non-African American GFR(CKD) 81 (>60 ml/min/1.73 sqM); Sodium 137 mmol/L (137-145)
[2022-06-23 07:34] LABS: INR 1.2 (<1.2); Prothrombin Time 12.6 sec (9.0-12.0)
[2022-06-23] MEDS ORDERED: ASPIRIN 325 MG TAB PO SCH (09:00)
[2022-06-23] MEDS ORDERED: ASPIRIN 81 MG PO SCH (09:00)
[2022-06-23] MEDS ORDERED: PIOGLITAZONE 30 MG TAB PO SCH (09:00)
[2022-06-23] MEDS: PREGABALIN 100 MG CAP PO SCH ×2 (09:47→21:37)
[2022-06-23] MEDS: ATORVASTATIN 80 MG TAB PO SCH (09:48)
[2022-06-23] MEDS: METOPROLOL SUCCINATE (ER) 50 MG TAB.ER.24H PO SCH (09:48)
[2022-06-23] MEDS: LORATADINE 10 MG TAB PO SCH (09:48)
[2022-06-23 10:31] LABS: Chol/HDL Ratio 3.32 Ratio; LDL Cholesterol,Calculated 75.5 mg/dL (0.0-131.0)
[2022-06-23] MEDS: IPRATROPIUM-ALBUTEROL 3 ML NEB INHALATION PRN ×2 (11:32→19:58)
[2022-06-23 11:51] LABS: Glucose,Whole Blood 163 mg/dL (70-110)
--- NOTE | 2022-06-23 12:36 | P.CRDCN ---
History of Present Illness Consult date: 06/23/22 Requesting physician: Shadia Alvarez Reason for Consult (text): AF w/RVR Chief complaint: chest tightness, palpitations, SOB History of present illness: This is 67-year-old gentleman who follows with Dr. Heaton in the office. Has a history of atrial fibrillation, previously on amiodarone and previously maintaining sinus mechanism, DVT with [place] filter placed in 1979, status post left [id number] amputee, bilateral iliac artery stents, hypertension, hyperlipidemia and diabetes. He was recently admitted and found to have evidence of cardiomyopathy with ejection fraction of 30% on echocardiogram which was previously normal at that time heart catheterization showed mild disease in the RCA and LAD with evidence of microvascular dysfunction. He's previously been anticoagulated on warfarin but has not been compliant with this. He apparently also stopped taking his amiodarone at home. Following discharge he was sent to a facility for rehab however signed himself out AGAINST MEDICAL ADVICE and stated in the motel for a few days. He presented to the emergency department this admission after developing some chest tightness and rapid heartbeat as well as worsening shortness of breath. Upon presentation EKG showed atrial fibrillation with rapid ventricular response. Laboratory evaluation showed hemoglobin 10.8, INR 1.1, BUN 21, creatinine 1.2 to the recheck of 19 and 0.98 NT proBNP 6580 which was previously greater than 12,000 and troponins have been 0.032, 0.045 and 0.042. On examination patient is sitting up at the side of the bed. He complains of edema and shortness of breath. Denies current complaints of chest tightness palpitations. He continues to be in atrial fibrillation with heart rate better controlled. He's been initiated on IV Cardizem and Lovenox. He has been experiencing some orthopnea at home as well as occasional episodes of PND. Denies any dizziness, lightheadedness or syncope. He has quite limited in his physical activity and spends most of his time in his wheelchair. Past Medical History Past Medical History: Atrial Fibrillation, Asthma, COPD, CVA/TIA, Diabetes Mellitus, Deep Vein Thrombosis (DVT), GERD/Reflux, Hyperlipidemia, Hypertension, Neurologic Disorder, Osteoarthritis (OA), Pneumonia, Pulmonary Embolus (PE), Skin Disorder, Vascular Disorder Additional Past Medical History / Comment(s): Pt admitted to [facility] on 11/20/20 with hyperkalemia, hyperglycemia, uncontrolled diabetes. Other hx: Lupus anticoagulant, DVTs bilateral legs, PEs bilateral lungs, pt has z[place] filter, L AKA/wheelchair bound, NIDDM type II, neuropathy bilateral hands, wound care patient for buttock wound, now healed, TIAs, pneumothorax, past migraines, chronic low back pain, R leg edema at times, varicosities. History of Any Multi-Drug Resistant Organisms: MRSA Date of last positivie culture/infection: 06/04/21 MDRO Source:: Right Leg MRSA Past Surgical History: Adenoidectomy, Appendectomy, Tonsillectomy Additional Past Surgical History / Comment(s): [place] filter, stents in vessels "in pelvic area", total L hip arthroplasty, vein strippings, colonoscopy. left leg amputation Past Anesthesia/Blood Transfusion Reactions: No Reported Reaction Additional Past Anesthesia/Blood Transfusion Reaction / Comment(s): Pt has received blood in past without reaction. Past Psychological History: No Psychological Hx Reported Additional Psychological History / Comment(s): Pt currently living with his albina. He has a home care nurse thru [facility] for wound care. He has a glucometer. He has a nebulizer. Belongings taken by ex . Pt has prosthetic but ex has this in her possession. Currently in court wasserman related to all of this Smoking Status: Current every day smoker Past Alcohol Use History: None Reported Additional Past Alcohol Use History / Comment(s): Pt startes smoking in 1969 and is a ppd smoker. Past Drug Use History: Marijuana - Past Family History Mother Family Medical History: Coronary Artery Disease (CAD), Myocardial Infarction ([place]), Vascular Disorder Additional Family Medical History / Comment(s): heart disease, peripheral vascular disease. Father Family Medical History: Diabetes Mellitus, Renal Disease Medications and Allergies Home Medications Medication Instructions Recorded Confirmed Type Atorvastatin [Lipitor] 80 mg PO DIRECTED 01/09/14 06/22/22 History Omeprazole [PriLOSEC] 20 mg PO DIRECTED 08/15/19 06/22/22 History Loratadine 10 mg PO DIRECTED 10/30/19 06/22/22 History Metoprolol Succinate (ER) [Toprol 50 mg PO DIRECTED 02/29/20 06/22/22 History XL] Pioglitazone [Actos] 30 mg PO DIRECTED 06/02/21 06/22/22 History Glimepiride [Amaryl] 4 mg PO DIRECTED 09/07/21 06/22/22 History Amiodarone [Cordarone] 200 mg PO DIRECTED 03/27/22 06/22/22 History Warfarin [Coumadin] 3 mg PO DIRECTED 05/28/22 06/22/22 History Acetaminophen Tab [Tylenol] 650 mg PO Q6HR PRN tab 06/07/22 06/22/22 Rx Aspirin 81 mg PO DAILY #30 tab 06/07/22 06/22/22 Rx traMADol HCl [Ultram] 50 mg PO QID PRN 3 Days #12 tab 06/07/22 06/22/22 Rx Melatonin [Melatonin ER] 10 mg PO HS #30 tab 06/08/22 06/22/22 Rx Bacitracin Zinc Oint 1 applic TOPICAL QID PRN 06/22/22 06/22/22 History Ipratropium-Albuterol Nebulize 3 ml INHALATION DIRECTED PRN 06/22/22 06/22/22 History [Duoneb 0.5 mg-3 mg/3 ml Soln] Isosorbide Mononitrate ER [Imdur] 15 mg PO DIRECTED 06/22/22 06/22/22 History Pregabalin [Lyrica] 100 mg PO DIRECTED 06/22/22 06/22/22 History Tamsulosin [Flomax] 0.4 mg PO DIRECTED 06/22/22 06/22/22 History Temazepam [Restoril] 7.5 mg PO DIRECTED PRN 06/22/22 06/22/22 History Topiramate [Topamax] 25 mg PO DIRECTED 06/22/22 06/22/22 History lisinopriL [Zestril] 5 mg PO DIRECTED 06/22/22 06/22/22 History Allergies Allergy/AdvReac Type Severity Reaction Status Date / Time baclofen Allergy Unknown Verified 06/22/22 15:47 apixaban [From Eliquis] AdvReac "felt Verified 06/22/22 15:47 funny" Physical Exam Vitals: Vital Signs Temp Pulse Pulse Resp BP BP Pulse Ox 06/23/22 11:53 97 F L 95 19 116/87 92 L 06/23/22 11:41 106 H 06/23/22 11:33 78 06/23/22 09:10 98.4 F 117 H 19 116/87 96 06/23/22 08:00 117 H 19 06/23/22 03:34 97.6 F 93 16 108/76 99 06/23/22 02:00 93 17 06/22/22 23:22 98 F 116 H 17 91/61 94 L 06/22/22 21:05 137 H 06/22/22 20:58 125 H 06/22/22 20:00 97.6 F 138 H 18 113/83 99 06/22/22 14:16 130 H 06/22/22 14:06 146 H 18 122/100 98 06/22/22 14:03 97.8 F 147 H 18 158/127 99 Intake and Output 06/22/22 06/23/22 06/23/22 22:59 06:59 14:59 Intake Total 197.25 Balance 197.25 Intake: Intake, IV Titration 197.25 Amount Diltiazem 125 mg In 197.25 Sodium Chloride 0.9% 100 ml @ 5 MG/HR 5 mls/hr IV .Q24H [facility] Rx#:[id number] Other: Voiding Method Urinal Urinal Weight 90.718 kg PHYSICAL EXAMINATION: This is a 67-year-old male in no apparent distress at the time of my examination. HEENT: Head is atraumatic, normocephalic. Pupils are equal, round. Sclerae anicteric. Conjunctivae are clear. Mucous membranes of the mouth are moist. Neck is supple. There is no elevated jugular venous pressure. No carotid bruit is heard. CHEST EXAMINATION: Lung sounds reveal diminished air entry bilaterally with bibasilar crackles. No wheezes or rhonchi. Respirations even and nonlabored. HEART EXAMINATION: Heart irregular rate and rhythm, positive S1 and S2. No S3. No S4. No clicks, rubs or murmurs. ABDOMEN: Soft, nontender. Bowel sounds are heard. No organomegaly noted. EXTREMITIES: Moderate RLE edema with erythema, prior left AKA. NEUROLOGIC EXAMINATION: Patient is awake, alert and oriented x3. Results 06/22/22 14:13 06/23/22 06:28 Cardiac Enzymes 06/22/22 06/22/22 06/22/22 Range/Units 14:13 14:13 20:45 AST 22 (17-59) U/L Troponin I 0.032 0.045 H* (0.000-0.034) ng/mL 06/23/22 Range/Units 00:00 AST (17-59) U/L Troponin I 0.042 H* (0.000-0.034) ng/mL Coagulation 06/22/22 06/23/22 Range/Units 14:13 06:28 PT 11.5 12.6 H (9.0-12.0) sec Lipids 06/23/22 Range/Units 06:28 Triglycerides 52.00 (0.00-149.00) mg/dL Cholesterol 123.00 (0.00-200.00) mg/dL HDL Cholesterol 37.10 L (40.00-60.00) mg/dL Cholesterol/HDL Ratio 3.32 Ratio CBC 06/22/22 Range/Units 14:13 WBC 7.3 (3.8-10.6) k/uL RBC 3.88 L (4.30-5.90) m/uL Hgb 10.8 L (13.0-17.5) gm/dL Hct 34.3 L (39.0-53.0) % Plt Count 269 (150-450) k/uL Comprehensive Metabolic Panel 06/22/22 06/23/22 Range/Units 14:13 06:28 Sodium 136 L 137 (137-145) mmol/L Potassium 4.1 4.0 (3.5-5.1) mmol/L Chloride 107 109 H (98-107) mmol/L Carbon Dioxide 24 21 L (22-30) mmol/L BUN 21 H 19 (9-20) mg/dL Creatinine 1.22 0.98 (0.66-1.25) mg/dL Glucose 157 H 105 H (74-99) mg/dL Calcium 8.0 L 8.0 L (8.4-10.2) mg/dL AST 22 (17-59) U/L ALT 19 (4-49) U/L Alkaline Phosphatase 95 (38-126) U/L Total Protein 6.9 (6.3-8.2) g/dL Albumin 3.3 L (3.5-5.0) g/dL Current Medications Generic Name Dose Route Start Last Admin Trade Name Freq PRN Reason Stop Dose Admin Acetaminophen 650 mg 06/22/22 18:05 Acetaminophen Tab 325 Mg Tab PO Q6HR PRN Fever and/ or Pain Albuterol/Ipratropium 3 ml 06/22/22 18:05 06/23/22 11:32 Ipratropium-Albuterol 3 Ml Neb INHALATION 3 ml QID PRN Administration Shortness Of Breath Or Wheezing Aspirin 81 mg 06/23/22 09:00 06/23/22 09:48 Aspirin 81 Mg PO 81 mg DAILY HELENE Administration Atorvastatin Calcium 80 mg 06/23/22 09:00 06/23/22 09:48 Atorvastatin 80 Mg Tab PO 80 mg DAILY HELENE Administration Dextrose/Water 50 ml 06/22/22 18:36 Dextrose 50% Syringe 50 Ml IVP PER PROTOCOL PRN Hypoglycemia Protocol Dextrose/Water 25 ml 06/22/22 18:36 Dextrose 50% Syringe 50 Ml IVP PER PROTOCOL PRN Hypoglycemia Protocol Enoxaparin Sodium 80 mg 06/22/22 21:00 06/22/22 22:05 Enoxaparin 80 Mg/0.8 Ml Syringe SQ 80 mg Q12HR HELENE Administration Diltiazem HCl 125 mg/ Sodium 125 mls @ 5 mls/hr 06/22/22 15:00 06/23/22 05:17 Chloride IV 5 mg/hr .Q24H HELENE 5 mls/hr Administration 5 MG/HR Insulin Aspart 0 unit 06/22/22 21:00 06/23/22 06:22 Insulin Aspart (Novolog) 100 Unit/Ml Vial SQ Not Given ACHS [facility] Protocol Insulin Detemir 14 unit 06/22/22 21:00 06/22/22 22:05 Insulin Detemir (Levemir) 100 Unit/Ml Syr 0.15 unit/kg (14 unit) 14 unit SQ Administration BID HELENE Isosorbide Mononitrate 15 mg 06/23/22 09:00 Isosorbide Mononitrate Er 15 Mg Tab PO DAILY HELENE Lisinopril 5 mg 06/23/22 09:00 Lisinopril 5 Mg Tab PO DAILY HELENE Loratadine 10 mg 06/23/22 09:00 06/23/22 09:48 Loratadine 10 Mg Tab PO 10 mg DAILY HELENE Administration Melatonin 10 mg 06/22/22 21:00 06/22/22 20:36 Melatonin 5 Mg Tablet PO 10 mg HS HELENE Administration Metoprolol Succinate 50 mg 06/23/22 09:00 06/23/22 09:48 Metoprolol Succinate (Er) 50 Mg Tab.Er.24h PO 50 mg DAILY HELENE Administration Miscellaneous Information 1 each 06/22/22 18:26 Warfarin Per Pharmacy MISCELLANE DIRECTED PRN Per Protocol Protocol Nitroglycerin 0.4 mg 06/22/22 17:16 Nitroglycerin Sl Tabs 0.4 Mg Tab SUBLINGUAL Q5M PRN Chest Pain Pantoprazole Sodium 40 mg 06/23/22 07:30 06/23/22 06:23 Pantoprazole 40 Mg Tablet PO Not Given -BRKFST HELENE Pioglitazone HCl 30 mg 06/23/22 09:00 Pioglitazone 30 Mg Tab PO DAILY HELENE Pregabalin 100 mg 06/22/22 21:00 06/23/22 09:47 Pregabalin 100 Mg Cap PO 100 mg BID HELENE Administration Tamsulosin HCl 0.4 mg 06/22/22 18:30 06/22/22 19:20 Tamsulosin 0.4 Mg Cap.Er.24h PO 0.4 mg PC-SUPPER HELENE Administration Temazepam 7.5 mg 06/22/22 18:05 Temazepam 7.5 Mg Cap PO HS PRN Insomnia Tramadol HCl 50 mg 06/22/22 18:05 06/23/22 09:47 Tramadol 50 Mg Tab PO 50 mg QID PRN Administration Pain/Discomfort Warfarin Sodium 5 mg 06/23/22 18:00 Warfarin 5 Mg Tab PO 06/23/22 18:01 ONCE@1800 ONE Intake and Output 06/22/22 06/23/22 06/23/22 22:59 06:59 14:59 Intake Total 197.25 Balance 197.25 Intake: Intake, IV Titration 197.25 Amount Diltiazem 125 mg In 197.25 Sodium Chloride 0.9% 100 ml @ 5 MG/HR 5 mls/hr IV .Q24H [facility] Rx#:[id number] Other: Voiding Method Urinal Urinal Weight 90.718 kg 06/22/22 14:13 06/23/22 06:28 Assessment and Plan Assessment: #1 atrial fibrillation with rapid ventricular response, INR 1.1 likely not taking his warfarin at home and has not been taking his amiodarone #2 nonischemic cardiomyopathy #3 mild CAD involving the RCA and LAD with evidence of microvascular dysfunction #4 hypertension #5 hyperlipidemia #6 diabetes mellitus #7 noncompliance #8 nicotine dependence Plan: From cardiology perspective we will start the patient on amiodarone 200 mg by mouth twice a day and switch him to Eliquis. We will diuresis patient with Lasix 40 mg IV push every 12 hours. Stop aspirin. Depending on the patient's progress further recommendations will be made. He may benefit from FLO guided cardioversion. IN HOME TUTOR note has been reviewed, I agree with a documented findings and plan of care. Patient was seen and examined.
[2022-06-23] MEDS: ENOXAPARIN 80 MG/0.8 ML SYRINGE SQ SCH (13:19)
[2022-06-23] MEDS: FUROSEMIDE 10 MG/ML 4 ML VIAL IV SCH ×2 (13:20→21:43)
[2022-06-23] MEDS: AMIODARONE 200 MG TAB PO SCH ×2 (13:20→21:43)
[2022-06-23] MEDS: lisinopriL 5 MG TAB PO SCH (13:20)
[2022-06-23] MEDS: ISOSORBIDE MONONITRATE ER 15 MG TAB PO SCH (13:22)
--- NOTE | 2022-06-23 14:49 | P.HPIM ---
History of Present Illness H&P Date: 06/23/22 Gertrudis is a 67 year old male with medical history of uncontrolled diabetes, chronic atrial fibrillation, cardiomyopathy with EF of 30%, Asthma, CVA/TIA, GERD, hypertension, hyperlipidemia, PE/DVT. He is left above the knee amputation. Patient had recent hospital stay was admitted for chest pain and un derwent cardiac catheterization without intervention and was optimized on medical therapy. He is also non compliant with medications and his anticoagulation. He had issues with urinary retention previous admission as well. He was treated also for finger laceration with antibiotics and local wound care. He presented with altered mental status and his pain medications were adjusted. He was discharged to subacute rehab which he reports leaving AMA once he arrived at the facility. Since then he has been out of his home medications. He presents to the hospital this admission for shortness of breath and difficulty breathing. He also reports increasing leg swelling greater on the right. Chest xray showing left lower lobe atelectasis or pneumonia, COPD. He has no white count on admission, hgb stable at 10.8, sodium 136, mild renal injury with creatinine of 1.22. Blood glucose stable. Troponin elevation at 0.032, 0.045, 0.042. Procal negative at 0.04. His proBNP 6580 on admission. Patient does have known EF of 30%. Patient was found to be in atrial fibrillation with rapid ventricular rate as well and was started on amiodarone gtt. INR 1.1 on admission he was resumed on warfarin with lovenox bridge. He is admitted to the hospital and cardiology has been consulted. REVIEW OF SYSTEMS: CONSTITUTIONAL: No fever, no malaise, no fatigue. HEENT: No recent visual problems or hearing problems. Denied any sore throat. CARDIOVASCULAR: No chest pain, orthopnea, PND, no palpitations, no syncope. PULMONARY: Reports shortness of breath, no cough, no hemoptysis. GASTROINTESTINAL: No diarrhea, no nausea, no vomiting, no abdominal pain. NEUROLOGICAL: No headaches, no weakness, no numbness. HEMATOLOGICAL: Denies any bleeding or petechiae. GENITOURINARY: Denies any burning micturition, frequency, or urgency. MUSCULOSKELETAL/RHEUMATOLOGICAL: Denies any joint pain, swelling, or any muscle pain. ENDOCRINE: Denies any polyuria or polydipsia. The rest of the 14-point review of systems is negative. PHYSICAL EXAMINATION: GENERAL: The patient is alert and oriented x3, not in any acute distress. Well developed, well nourished. HEENT: Pupils are round and equally reacting to light. EOMI. No scleral icterus. No conjunctival pallor. Normocephalic, atraumatic. No pharyngeal erythema. No thyromegaly. CARDIOVASCULAR: S1 and S2 present. No murmurs, rubs, or gallops. PULMONARY: Chest is clear to auscultation, no wheezing or crackles. ABDOMEN: Soft, nontender, nondistended, normoactive bowel sounds. No palpable organomegaly. MUSCULOSKELETAL: No joint swelling or deformity. EXTREMITIES: s/p left AKA right lower extremity edema. NEUROLOGICAL: Gross neurological examination did not reveal any focal deficits. SKIN: No rashes. Assessment and Plan Assessment Atrial fibrillation with rapid ventricular rate subtherapuetic INR 1.1 which he has not been taking his warfarin Acute systolic heart failure exacerbation Nonischemic cardiomyopathy Hypertension Diabetes Mellitus with hyperglycemia Coronary artery disease History asthma/COPD History DVT/PE History peripheral neuropathy History TIA Medication noncompliance Chronic nicotine use GI prophylaxis DVT prophylaxis Full Code Plan Patient has been switched to eliquis Resumed on home dose of amiodarone IV lasix 40 mg Q12 and monitor intake and output PT/OT has been consulted Social work consultation patient does not have primary provider, difficulty with transportation to appointments Frequently runs out of his home medications. Repeat labs in AM The impression and plan of care has been dictated by Birgit Russell Nurse Practitioner as directed. Dr. Miguel MD I have performed a history and physical examination and medical decision making of this patient, discussed the same with the dictator, and agree with the dictators assessment and plan as written, documented as a scribe. Based on total visit time, I have performed more than 50% of this visit. Past Medical History Past Medical History: Atrial Fibrillation, Asthma, COPD, CVA/TIA, Diabetes Mellitus, Deep Vein Thrombosis (DVT), GERD/Reflux, Hyperlipidemia, Hypertension, Neurologic Disorder, Osteoarthritis (OA), Pneumonia, Pulmonary Embolus (PE), Skin Disorder, Vascular Disorder Additional Past Medical History / Comment(s): Pt admitted to [facility] on 11/20/20 with hyperkalemia, hyperglycemia, uncontrolled diabetes. Other hx: Lupus anticoagulant, DVTs bilateral legs, PEs bilateral lungs, pt has [place] filter, L AKA/wheelchair bound, NIDDM type II, neuropathy bilateral hands, wound care patient for buttock wound, now healed, TIAs, pneumothorax, past migraines, chronic low back pain, R leg edema at times, varicosities. History of Any Multi-Drug Resistant Organisms: MRSA Date of last positivie culture/infection: 06/04/21 MDRO Source:: Right Leg MRSA Past Surgical History: Adenoidectomy, Appendectomy, Tonsillectomy Additional Past Surgical History / Comment(s): [place] filter, stents in vessels "in pelvic area", total L hip arthroplasty, vein strippings, colonoscopy. left leg amputation Past Anesthesia/Blood Transfusion Reactions: No Reported Reaction Additional Past Anesthesia/Blood Transfusion Reaction / Comment(s): Pt has received blood in past without reaction. Past Psychological History: No Psychological Hx Reported Additional Psychological History / Comment(s): Pt currently living with his albina. He has a home care nurse thru [facility] for wound care. He has a glucometer. He has a nebulizer. Belongings taken by ex . Pt has prosthetic but ex has this in her possession. Currently in court wasserman related to all of this Smoking Status: Current every day smoker Past Alcohol Use History: None Reported Additional Past Alcohol Use History / Comment(s): Pt startes smoking in 1969 and is a ppd smoker. Past Drug Use History: Marijuana - Past Family History Mother Family Medical History: Coronary Artery Disease (CAD), Myocardial Infarction ([place]), Vascular Disorder Additional Family Medical History / Comment(s): heart disease, peripheral vascular disease. Father Family Medical History: Diabetes Mellitus, Renal Disease Medications and Allergies Home Medications Medication Instructions Recorded Confirmed Type Atorvastatin [Lipitor] 80 mg PO DIRECTED 01/09/14 06/22/22 History Omeprazole [PriLOSEC] 20 mg PO DIRECTED 08/15/19 06/22/22 History Loratadine 10 mg PO DIRECTED 10/30/19 06/22/22 History Metoprolol Succinate (ER) [Toprol 50 mg PO DIRECTED 02/29/20 06/22/22 History XL] Pioglitazone [Actos] 30 mg PO DIRECTED 06/02/21 06/22/22 History Glimepiride [Amaryl] 4 mg PO DIRECTED 09/07/21 06/22/22 History Amiodarone [Cordarone] 200 mg PO DIRECTED 03/27/22 06/22/22 History Warfarin [Coumadin] 3 mg PO DIRECTED 05/28/22 06/22/22 History Acetaminophen Tab [Tylenol] 650 mg PO Q6HR PRN tab 06/07/22 06/22/22 Rx Aspirin 81 mg PO DAILY #30 tab 06/07/22 06/22/22 Rx traMADol HCl [Ultram] 50 mg PO QID PRN 3 Days #12 tab 06/07/22 06/22/22 Rx Melatonin [Melatonin ER] 10 mg PO HS #30 tab 06/08/22 06/22/22 Rx Bacitracin Zinc Oint 1 applic TOPICAL QID PRN 06/22/22 06/22/22 History Ipratropium-Albuterol Nebulize 3 ml INHALATION DIRECTED PRN 06/22/22 06/22/22 History [Duoneb 0.5 mg-3 mg/3 ml Soln] Isosorbide Mononitrate ER [Imdur] 15 mg PO DIRECTED 06/22/22 06/22/22 History Pregabalin [Lyrica] 100 mg PO DIRECTED 06/22/22 06/22/22 History Tamsulosin [Flomax] 0.4 mg PO DIRECTED 06/22/22 06/22/22 History Temazepam [Restoril] 7.5 mg PO DIRECTED PRN 06/22/22 06/22/22 History Topiramate [Topamax] 25 mg PO DIRECTED 06/22/22 06/22/22 History lisinopriL [Zestril] 5 mg PO DIRECTED 06/22/22 06/22/22 History Allergies Allergy/AdvReac Type Severity Reaction Status Date / Time baclofen Allergy Unknown Verified 06/22/22 15:47 apixaban [From Eliquis] AdvReac "felt Verified 06/22/22 15:47 funny" Physical Exam Vitals: Vital Signs Temp Pulse Pulse Resp BP BP Pulse Ox 06/23/22 03:34 97.6 F 93 16 108/76 99 06/23/22 02:00 93 17 06/22/22 23:22 98 F 116 H 17 91/61 94 L 06/22/22 21:05 137 H 06/22/22 20:58 125 H 06/22/22 20:00 97.6 F 138 H 18 113/83 99 06/22/22 14:16 130 H 06/22/22 14:06 146 H 18 122/100 98 06/22/22 14:03 97.8 F 147 H 18 158/127 99 Intake and Output 06/22/22 06/23/22 06/23/22 22:59 06:59 14:59 Intake Total 197.25 Balance 197.25 Intake: Intake, IV Titration 197.25 Amount Diltiazem 125 mg In 197.25 Sodium Chloride 0.9% 100 ml @ 5 MG/HR 5 mls/hr IV .Q24H [facility] Rx#:[id number] Other: Voiding Method Urinal Weight 90.718 kg Results CBC & Chem 7: 06/22/22 14:13 06/23/22 06:28 Labs: Abnormal Lab Results - Last 24 Hours (Table) 06/22/22 06/22/22 06/22/22 Range/Units 14:13 14:13 20:34 RBC 3.88 L (4.30-5.90) m/uL Hgb 10.8 L (13.0-17.5) gm/dL Hct 34.3 L (39.0-53.0) % RDW 15.6 H (11.5-15.5) % PT (9.0-12.0) sec INR (<1.2) Sodium 136 L (137-145) mmol/L Chloride (98-107) mmol/L Carbon Dioxide (22-30) mmol/L BUN 21 H (9-20) mg/dL Glucose 157 H (74-99) mg/dL POC Glucose (mg/dL) 122 H (70-110) mg/dL Hemoglobin A1c (0.0-6.0) % Calcium 8.0 L (8.4-10.2) mg/dL Troponin I (0.000-0.034) ng/mL Albumin 3.3 L (3.5-5.0) g/dL 06/22/22 06/22/22 06/23/22 Range/Units 20:45 20:45 00:00 RBC (4.30-5.90) m/uL Hgb (13.0-17.5) gm/dL Hct (39.0-53.0) % RDW (11.5-15.5) % PT (9.0-12.0) sec INR (<1.2) Sodium (137-145) mmol/L Chloride (98-107) mmol/L Carbon Dioxide (22-30) mmol/L BUN (9-20) mg/dL Glucose (74-99) mg/dL POC Glucose (mg/dL) (70-110) mg/dL Hemoglobin A1c 7.9 H (0.0-6.0) % Calcium (8.4-10.2) mg/dL Troponin I 0.045 H* 0.042 H* (0.000-0.034) ng/mL Albumin (3.5-5.0) g/dL 06/23/22 06/23/22 06/23/22 Range/Units 06:22 06:28 06:28 RBC (4.30-5.90) m/uL Hgb (13.0-17.5) gm/dL Hct (39.0-53.0) % RDW (11.5-15.5) % PT 12.6 H (9.0-12.0) sec INR 1.2 H (<1.2) Sodium (137-145) mmol/L Chloride 109 H (98-107) mmol/L Carbon Dioxide 21 L (22-30) mmol/L BUN (9-20) mg/dL Glucose 105 H (74-99) mg/dL POC Glucose (mg/dL) 111 H (70-110) mg/dL Hemoglobin A1c (0.0-6.0) % Calcium 8.0 L (8.4-10.2) mg/dL Troponin I (0.000-0.034) ng/mL Albumin (3.5-5.0) g/dL Thrombosis Risk Factor Assmnt - Choose All That Apply Each Risk Factor Represents 2 Points: Age 61-74 years, Patient confined to bed Thrombosis Risk Factor Assessment Total Risk Factor Score: 4 Thrombosis Risk Factor Assessment Level: Moderate Risk Assessment and Plan Time with Patient: Greater than 30
[2022-06-23] MEDS: INSULIN DETEMIR (LEVEMIR) 100 UNIT/ML SYR SQ SCH ×2 (15:43→21:37)
[2022-06-23 17:14] LABS: Glucose,Whole Blood 150 mg/dL (70-110)
[2022-06-23] MEDS ORDERED: WARFARIN 5 MG TAB PO ONE (18:00)
[2022-06-23] MEDS: TAMSULOSIN 0.4 MG CAP.ER.24H PO SCH (18:59)
[2022-06-23 20:49] LABS: Glucose,Whole Blood 141 mg/dL (70-110)
[2022-06-23] MEDS: APIXABAN 5 MG TAB PO SCH (21:37)
[2022-06-23] MEDS: MELATONIN 5 MG TABLET PO SCH (21:37)
[2022-06-24] MEDS: TEMAZEPAM 7.5 MG CAP PO PRN ×2 (00:50→23:44)
[2022-06-24] MEDS: traMADol 50 MG TAB PO PRN ×4 (00:51→23:44)
[2022-06-24 06:07] LABS: Glucose,Whole Blood 132 mg/dL (70-110)
[2022-06-24] MEDS: INSULIN ASPART (NovoLOG) 100 UNIT/ML VIAL SQ SCH ×4 (06:31→20:51)
[2022-06-24] MEDS: PANTOPRAZOLE 40 MG TABLET PO SCH (06:53)
[2022-06-24 09:03] LABS: INR 1.2 (<1.2); Prothrombin Time 12.4 sec (9.0-12.0)
[2022-06-24 09:20] LABS: Calcium 7.9 mg/dL (8.4-10.2); Potassium 4.4 mmol/L (3.5-5.1)
[2022-06-24] MEDS: LORATADINE 10 MG TAB PO SCH (09:56)
[2022-06-24] MEDS: ATORVASTATIN 80 MG TAB PO SCH (09:56)
[2022-06-24] MEDS: APIXABAN 5 MG TAB PO SCH ×2 (09:56→20:51)
[2022-06-24] MEDS: lisinopriL 5 MG TAB PO SCH (09:56)
[2022-06-24] MEDS: AMIODARONE 200 MG TAB PO SCH ×2 (09:56→20:51)
[2022-06-24] MEDS: METOPROLOL SUCCINATE (ER) 50 MG TAB.ER.24H PO SCH (09:56)
[2022-06-24] MEDS: FUROSEMIDE 10 MG/ML 4 ML VIAL IV SCH ×2 (09:57→20:51)
[2022-06-24] MEDS: PREGABALIN 100 MG CAP PO SCH ×2 (09:57→20:51)
[2022-06-24] MEDS: ISOSORBIDE MONONITRATE ER 15 MG TAB PO SCH (09:58)
[2022-06-24] MEDS: INSULIN DETEMIR (LEVEMIR) 100 UNIT/ML SYR SQ SCH ×2 (10:05→20:51)
[2022-06-24 10:06] LABS: Glucose,Whole Blood 152 mg/dL (70-110)
[2022-06-24 11:28] LABS: Glucose,Whole Blood 129 mg/dL (70-110)
--- NOTE | 2022-06-24 14:14 | US ---
EXAMINATION TYPE: US venous doppler duplex LE RT DATE OF EXAM: 06/24/2022 1:56 PM COMPARISON: 05/29/2022 CLINICAL HISTORY: increased right leg edema. right leg edema SIDE PERFORMED: right TECHNIQUE: The lower extremity deep venous system is examined utilizing real time linear array sonog andrea with graded compression, doppler sonography and color-flow sonography. VESSELS IMAGED: Common Femoral Vein Deep Femoral Vein Greater Saphenous Vein * Femoral Vein Popliteal Vein Small Saphenous Vein * Proximal Calf Veins (* superficial vessels) Right Leg: No evidence of DVT. large amount of soft tissue edema IMPRESSION: Grayscale, color doppler, spectral doppler imaging performed of the deep veins of the lo wer extremities. There is normal flow, compressibility, vascular waveforms.
[2022-06-24] MEDS: IPRATROPIUM-ALBUTEROL 3 ML NEB INHALATION PRN (15:53)
[2022-06-24 16:46] LABS: Glucose,Whole Blood 181 mg/dL (70-110)
--- NOTE | 2022-06-24 17:02 | P.PN ---
Subjective Progress Note Date: 06/24/22 Gertrudis is a 67 year old male with medical history of uncontrolled diabetes, chronic atrial fibrillation, cardiomyopathy with EF of 30%, Asthma, CVA/TIA, GERD, hypertension, hyperlipidemia, PE/DVT. He is left above the knee amputation. Patient had recent hospital stay was admitted for chest pain and underwent cardiac catheterization without intervention and was optimized on medical therapy. He is also non compliant with medications and his anticoagulation. He had issues with urinary retention previous admission as well. He was treated also for finger laceration with antibiotics and local wound care. He presented with altered mental status and his pain medications were adjusted. He was discharged to subacute rehab which he reports leaving AMA once he arrived at the facility. Since then he has been out of his home medications. He presents to the hospital this admission for shortness of breath and d ifficulty breathing. He also reports increasing leg swelling greater on the right. Chest xray showing left lower lobe atelectasis or pneumonia, COPD. He has no white count on admission, hgb stable at 10.8, sodium 136, mild renal injury with creatinine of 1.22. Blood glucose stable. Troponin elevation at 0.032, 0.045, 0.042. Procal negative at 0.04. His proBNP 6580 on admission. Patient does have known EF of 30%. Patient was found to be in atrial fibrillation with rapid ventricular rate as well and was started on amiodarone gtt. INR 1.1 on admission he was resumed on warfarin with lovenox bridge. He is admitted to the hospital and cardiology has been consulted. 06/24/2022 Patient evaluated today lying in bed. He reports right sided chest pain today which patient reports as musculoskeletal, and is currently undergoing EKG which reveals atrial flutter heart rate of 83. He does have continued right lower extremity swelling without much improvement on lasix. Venous doppler is ordered to rule out DVT secondary to noncompliance with anticoagulation outpatient. Doppler is negative for DVT. Sodium 134 today, creatinine 1.18. He is continued on IV lasix 40 Q12. Resumed on amiodarone BID. Anticoagulation has been changed to eliquis. Review of Systems Constitutional: Denied any fatigue denied any fever. Cardio vascular: Reports right sided chest pain, denies palpitations Gastrointestinal: denied any nausea, vomiting, diarrhea Pulmonary: Denied any shortness of breath cough Neurologic denied any new focal deficits All inpatient medications were reviewed and appropriate changes in these medications as dictated in the interval history and assessment and plan. PHYSICAL EXAMINATION: GENERAL: The patient is alert and oriented x3, not in any acute distress. Well developed, well nourished. HEENT: Pupils are round and equally reacting to light. EOMI. No scleral icterus. No conjunctival pallor. Normocephalic, atraumatic. No pharyngeal erythema. No thyromegaly. CARDIOVASCULAR: S1 and S2 present. No murmurs, rubs, or gallops. PULMONARY: Chest is clear to auscultation, no wheezing or crackles. ABDOMEN: Soft, nontender, nondistended, normoactive bowel sounds. No palpable organomegaly. MUSCULOSKELETAL: No joint swelling or deformity. EXTREMITIES: s/p left AKA right lower extremity edema. NEUROLOGICAL: Gross neurological examination did not reveal any focal deficits. SKIN: No rashes. Assessment and Plan Assessment Atrial fibrillation with rapid ventricular rate currently rate controlled Acute systolic heart failure Nonischemic cardiomyopathy Hypertension Diabetes Mellitus with hyperglycemia Coronary artery disease History asthma/COPD History DVT/PE History peripheral neuropathy History TIA Medication noncompliance Chronic nicotine use GI prophylaxis DVT prophylaxis on eliquis Full Code Plan IV lasix 40 mg Q12 and monitor intake and output PT/OT has been consulted Venous doppler reviewed Repeat labs in AM Further recommendations by cardiology Social work consultation patient does not have primary provider, difficulty with transportation to appointments Frequently runs out of his home medications. Repeat labs in AM The impression and plan of care has been dictated by Birgit Russell, Nurse Practitioner as directed. Dr. Miguel MD I have performed a history and physical examination and medical decision making of this patient, discussed the same with the dictator, and agree with the dictators assessment and plan as written, documented as a scribe. Based on total visit time, I have performed more than 50% of this visit. Objective - Vital Signs Vital signs: Vital Signs Temp 97.6 F 06/24/22 11:37 Pulse 79 06/24/22 12:20 Resp 17 06/24/22 12:20 BP 106/64 06/24/22 12:20 Pulse Ox 97 06/24/22 12:20 FiO2 Intake & Output 06/23/22 06/24/22 06/24/22 18:59 06:59 18:59 Intake Total 290 240 Output Total 700 1575 900 Balance -700 -1285 -660 Intake: Oral 290 240 Output: Urine 700 0904 605 Other: Voiding Method Urinal Urinal Urinal # Voids 2 - Labs CBC & Chem 7: 06/22/22 14:13 06/24/22 08:00 Labs: Abnormal Lab Results - Last 24 Hours (Table) 06/22/22 06/23/22 06/23/22 Range/Units 14:13 06:28 17:13 PT (9.0-12.0) sec INR (<1.2) Sodium (137-145) mmol/L BUN (9-20) mg/dL Glucose (74-99) mg/dL POC Glucose (mg/dL) 150 H (70-110) mg/dL Calcium (8.4-10.2) mg/dL TSH 0.107 L (0.350-5.500) uIU/mL Free T4 2.56 H (0.78-2.19) ng/dL 06/23/22 06/24/22 06/24/22 Range/Units 20:48 06:05 08:00 PT 12.4 H (9.0-12.0) sec INR 1.2 H (<1.2) Sodium (137-145) mmol/L BUN (9-20) mg/dL Glucose (74-99) mg/dL POC Glucose (mg/dL) 141 H 132 H (70-110) mg/dL Calcium (8.4-10.2) mg/dL TSH (0.350-5.500) uIU/mL Free T4 (0.78-2.19) ng/dL 06/24/22 06/24/22 06/24/22 Range/Units 08:00 10:04 11:25 PT (9.0-12.0) sec INR (<1.2) Sodium 134 L (137-145) mmol/L BUN 23 H (9-20) mg/dL Glucose 153 H (74-99) mg/dL POC Glucose (mg/dL) 152 H 129 H (70-110) mg/dL Calcium 7.9 L (8.4-10.2) mg/dL TSH (0.350-5.500) uIU/mL Free T4 (0.78-2.19) ng/dL Assessment and Plan Time with Patient: Less than 30
[2022-06-24] MEDS: TAMSULOSIN 0.4 MG CAP.ER.24H PO SCH (17:32)
--- NOTE | 2022-06-24 18:46 | P.PN ---
Subjective Progress Note Date: 06/24/22 PROGRESS NOTE The patient is a 67-year-old male with known history of cardiomyopathy, history of peripheral vascular disease paroxysmal atrial fibrillation who presented was progressive dyspnea and fatigue. He was noted to be in atrial fibrillation with episodes of rapid ventricular response. He is status post left AKA. He feels better today but continues to be dyspneic. He denies any chest discomfort, dizziness or palpitations. He denies any nausea. He has mild CAD by cardiac catheterization. He has a prior history of noncompliance. Medications: Amiodarone 200 mg twice a, Lipitor 80 mg daily, Lasix 40 mg IV every 12 hours, lisinopril 5 mg daily, metoprolol succinate 50 mg daily, isosorbide 15 mg daily, Flomax,Eliquis 5 mg twice a day PHYSICAL EXAMINATION: Blood pressure 100/70 heart rate 80 LUNGS: Decrease air exchange but no wheezes HEART: Irregular rate and rhythm, S1, S2. No S3. systolic ejection murmur ABDOMEN: Soft, nontender, no organomegaly EXTREMETIES: Status post left AKA with 1-2+ edema on the right LAB: BUN 23, creatinine 1.1, potassium 4.4 IMPRESSION: 1. Symptoms of CHF 2. Atrial fibrillation with controlled ventricular response 3. Peripheral vascular disease 4. History of noncompliance PLAN: 1. Continue IV diuretics 2. Stop Nitrate 3. Follow renal functions 4. Patient would benefit from restoring sinus mechanism after stabilizing his pulmonary status, depending on his progress further recommendations will be made Objective - Vital Signs Vital signs: Vital Signs Temp 97.6 F 06/24/22 11:37 Pulse 88 06/24/22 16:01 Resp 18 06/24/22 16:01 BP 100/72 06/24/22 15:31 Pulse Ox 97 06/24/22 15:31 FiO2 Intake & Output 06/23/22 06/24/22 06/24/22 18:59 06:59 18:59 Intake Total 290 720 Output Total 700 1575 1999 Balance -729 -7376 -1280 Intake: Oral 290 720 Output: Urine 700 1575 1999 Other: Voiding Method Urinal Urinal Urinal # Voids 2 1 - Labs CBC & Chem 7: 06/22/22 14:13 06/24/22 08:00 Labs: Abnormal Lab Results - Last 24 Hours (Table) 1206/24/22 06/24/22 Range/Units 20:48 06:05 08:00 PT 12.4 H (9.0-12.0) sec INR 1.2 H (<1.2) Sodium (137-145) mmol/L BUN (9-20) mg/dL Glucose (74-99) mg/dL POC Glucose (mg/dL) 141 H 132 H (70-110) mg/dL Calcium (8.4-10.2) mg/dL 06/24/22 06/24/22 06/24/22 Range/Units 08:00 10:04 11:25 PT (9.0-12.0) sec INR (<1.2) Sodium 134 L (137-145) mmol/L BUN 23 H (9-20) mg/dL Glucose 153 H (74-99) mg/dL POC Glucose (mg/dL) 152 H 129 H (70-110) mg/dL Calcium 7.9 L (8.4-10.2) mg/dL 06/24/22 Range/Units 16:44 PT (9.0-12.0) sec INR (<1.2) Sodium (137-145) mmol/L BUN (9-20) mg/dL Glucose (74-99) mg/dL POC Glucose (mg/dL) 181 H (70-110) mg/dL Calcium (8.4-10.2) mg/dL
[2022-06-24 20:11] LABS: Glucose,Whole Blood 171 mg/dL (70-110)
[2022-06-24] MEDS: MELATONIN 5 MG TABLET PO SCH (20:51)
[2022-06-25] MEDS: PANTOPRAZOLE 40 MG TABLET PO SCH (06:40)
[2022-06-25 06:44] LABS: Glucose,Whole Blood 133 mg/dL (70-110)
[2022-06-25] MEDS: INSULIN ASPART (NovoLOG) 100 UNIT/ML VIAL SQ SCH ×4 (06:49→21:18)
[2022-06-25] MEDS: ATORVASTATIN 80 MG TAB PO SCH (09:23)
[2022-06-25] MEDS: AMIODARONE 200 MG TAB PO SCH ×2 (09:23→21:18)
[2022-06-25] MEDS: PREGABALIN 100 MG CAP PO SCH ×2 (09:23→21:18)
[2022-06-25] MEDS: traMADol 50 MG TAB PO PRN ×3 (09:23→21:17)
[2022-06-25] MEDS: APIXABAN 5 MG TAB PO SCH ×2 (09:23→21:17)
[2022-06-25] MEDS: lisinopriL 5 MG TAB PO SCH (09:23)
[2022-06-25] MEDS: METOPROLOL SUCCINATE (ER) 50 MG TAB.ER.24H PO SCH (09:23)
[2022-06-25] MEDS: LORATADINE 10 MG TAB PO SCH (09:23)
[2022-06-25] MEDS: INSULIN DETEMIR (LEVEMIR) 100 UNIT/ML SYR SQ SCH ×2 (09:24→21:17)
[2022-06-25] MEDS: FUROSEMIDE 10 MG/ML 4 ML VIAL IV SCH ×2 (09:24→21:18)
[2022-06-25 10:11] LABS: HGB 10.4 gm/dL (13.0-17.5); Hypochromasia Marked; INR 1.2 (<1.2); MCHC 31.6 g/dL (31.0-37.0); MCV 88.6 fL (80.0-100.0); Mean Platelet Volume 8.2; Platelet Count 306 k/uL (150-450); RBC 3.72 m/uL (4.30-5.90); RDW 15.3 % (11.5-15.5); WBC 6.8 k/uL (3.8-10.6)
[2022-06-25 10:12] LABS: Prothrombin Time 12.3 sec (9.0-12.0)
[2022-06-25 10:17] LABS: Calcium 7.7 mg/dL (8.4-10.2); Potassium 4.4 mmol/L (3.5-5.1)
[2022-06-25 11:47] LABS: Glucose,Whole Blood 122 mg/dL (70-110)
--- NOTE | 2022-06-25 13:30 | P.PN ---
Subjective Progress Note Date: 06/25/22 PROGRESS NOTE The patient is a 67-year-old male with known history of cardiomyopathy, history of peripheral vascular disease paroxysmal atrial fibrillation who presented was progressive dyspnea and fatigue. He was noted to be in atrial fibrillation with episodes of rapid ventricular response. He is status post left AKA. He feels better today but continues to be dyspneic. He denies any chest discomfort, dizziness or palpitations. He denies any nausea. He has mild CAD by cardiac catheterization. He has a prior history of noncompliance. June 25: He continues to have dyspnea with minimal improvement, he continues to have significant peripheral edema. He denies any dizziness or palpitation. He denies any nausea. He continues to be in atrial fibrillation with controlled ventricular response. He has no significant chest pain. No cough or fever. Medications: Amiodarone 200 mg twice a, Lipitor 80 mg daily, Lasix 40 mg IV every 12 hours, lisinopril 5 mg daily, metoprolol succinate 50 mg daily, isosorbide 15 mg daily, Flomax,Eliquis 5 mg twice a day PHYSICAL EXAMINATION: Blood pressure 123/70 heart rate 70 LUNGS: Decrease air exchange but no wheezes HEART: Irregular rate and rhythm, S1, S2. No S3. systolic ejection murmur ABDOMEN: Soft, nontender, no organomegaly EXTREMETIES: Status post left AKA with 1-2+ edema on the right LAB: BUN 27, creatinine 1.27, potassium 4.4 IMPRESSION: 1. Symptoms of CHF 2. Atrial fibrillation with controlled ventricular response 3. Peripheral vascular disease 4. History of noncompliance PLAN: 1. Continue IV diuretics 2. Continue other medications 3. If renal function are stable add Aldactone tomorrow 4. Depending on his rhythm he may be a candidate for cardioversion down the road. Objective - Vital Signs Vital signs: Vital Signs Temp 97.5 F L 06/25/22 04:00 Pulse 72 06/25/22 12:45 Resp 17 06/25/22 09:20 BP 123/79 06/25/22 12:45 Pulse Ox 96 06/25/22 12:45 FiO2 Intake & Output 06/24/22 06/25/22 06/25/22 18:59 06:59 18:59 Intake Total 720 Output Total 1999 2099 500 Balance -1280 -2099 -500 Weight 97.5 kg Intake: Oral 720 Output: Urine 2000 2100 500 Other: Voiding Method Urinal Urinal Urinal # Voids 1 - Labs CBC & Chem 7: 06/25/22 09:36 06/25/22 09:36 Labs: Abnormal Lab Results - Last 24 Hours (Table) 06/24/22 06/24/22 06/25/22 Range/Units 16:44 20:10 06:43 RBC (4.30-5.90) m/uL Hgb (13.0-17.5) gm/dL Hct (39.0-53.0) % PT (9.0-12.0) sec INR (<1.2) Sodium (137-145) mmol/L BUN (9-20) mg/dL Creatinine (0.66-1.25) mg/dL Glucose (74-99) mg/dL POC Glucose (mg/dL) 181 H 171 H 133 H (70-110) mg/dL Calcium (8.4-10.2) mg/dL 06/25/22 06/25/22 06/25/22 Range/Units 09:36 09:36 09:36 RBC 3.72 L (4.30-5.90) m/uL Hgb 10.4 L (13.0-17.5) gm/dL Hct 33.0 L (39.0-53.0) % PT 12.3 H (9.0-12.0) sec INR 1.2 H (<1.2) Sodium 134 L (137-145) mmol/L BUN 27 H (9-20) mg/dL Creatinine 1.27 H (0.66-1.25) mg/dL Glucose 255 H (74-99) mg/dL POC Glucose (mg/dL) (70-110) mg/dL Calcium 7.7 L (8.4-10.2) mg/dL 06/25/22 Range/Units 11:45 RBC (4.30-5.90) m/uL Hgb (13.0-17.5) gm/dL Hct (39.0-53.0) % PT (9.0-12.0) sec INR (<1.2) Sodium (137-145) mmol/L BUN (9-20) mg/dL Creatinine (0.66-1.25) mg/dL Glucose (74-99) mg/dL POC Glucose (mg/dL) 122 H (70-110) mg/dL Calcium (8.4-10.2) mg/dL
--- NOTE | 2022-06-25 14:00 | XR ---
EXAMINATION TYPE: XR chest 2V DATE OF EXAM: 06/25/2022 1:18 PM COMPARISON: Chest radiographs from 06/22/2022 TECHNIQUE: XR chest 2V Frontal and lateral views of the chest. CLINICAL INDICATION:Male, 67 years old with history of dyspnea; FINDINGS: Lungs/Pleura: There is no evidence of pleural effusion, focal consolidation, or pneumothorax. Pulmonary vascularity: Unremarkable. Heart/mediastinum: Cardiomediastinal silhouette is unremarkable. Musculoskeletal: No acute osseous pathology. IMPRESSION: No significant change from prior basilar atelectasis versus airspace disease. Otherwise, no evidence for acute process.
--- NOTE | 2022-06-25 16:13 | P.PN ---
Subjective Progress Note Date: 06/25/22 Gertrudis is a 67 year old male with medical history of uncontrolled diabetes, chronic atrial fibrillation, cardiomyopathy with EF of 30%, Asthma, CVA/TIA, GERD, hypertension, hyperlipidemia, PE/DVT. He is left above the knee amputation. Patient had recent hospital stay was admitted for chest pain and underwent cardiac catheterization without intervention and was optimized on medical therapy. He is also non compliant with medications and his anticoagulation. He had issues with urinary retention previous admission as well. He was treated also for finger laceration with antibiotics and local wound care. He presented with altered mental status and his pain medications were adjusted. He was discharged to subacute rehab which he reports leaving AMA once he arrived at the facility. Since then he has been out of his home medications. He presents to the hospital this admission for shortness of breath and d ifficulty breathing. He also reports increasing leg swelling greater on the right. Chest xray showing left lower lobe atelectasis or pneumonia, COPD. He has no white count on admission, hgb stable at 10.8, sodium 136, mild renal injury with creatinine of 1.22. Blood glucose stable. Troponin elevation at 0.032, 0.045, 0.042. Procal negative at 0.04. His proBNP 6580 on admission. Patient does have known EF of 30%. Patient was found to be in atrial fibrillation with rapid ventricular rate as well and was started on amiodarone gtt. INR 1.1 on admission he was resumed on warfarin with lovenox bridge. He is admitted to the hospital and cardiology has been consulted. 06/24/2022 Patient evaluated today lying in bed. He reports right sided chest pain today which patient reports as musculoskeletal, and is currently undergoing EKG which reveals atrial flutter heart rate of 83. He does have continued right lower extremity swelling without much improvement on lasix. Venous doppler is ordered to rule out DVT secondary to noncompliance with anticoagulation outpatient. Doppler is negative for DVT. Sodium 134 today, creatinine 1.18. He is continued on IV lasix 40 Q12. Resumed on amiodarone BID. Anticoagulation has been changed to eliquis. 06/25/2022 Patient monitored on medical floor. He has been continued on IV lasix 40 mg Q12 overnight. Venous doppler of right leg is negative for DVT. He has continued to diuresis overnight over 3L. Hemoglobin A1C is 7.9 which has improved from 9.0 in November of this year. Current blood glucose in the 130s range and will continue on current regimen. Nephrology and cardiology following closely. Blood pressure 118/67, maintaining oxygen saturation on room air. Continues in atrial fibrillation with controlled heart rate in the 70s. He will be continued on IV diuretics overnight. Physical therapy has evaluated the patient and recommended for D/C home on discharge. Patient has issues with transportation as he is wheel chair bound at baseline secondary to left AKA. He also has issues with homelessness without family support. He currently does not have a primary provider and was unable to fill his medications outpatient. Social work has been consulted for this. Review of Systems Constitutional: Denied any fatigue denied any fever. Cardio vascular: Reports right sided chest pain, denies palpitations Gastrointestinal: denied any nausea, vomiting, diarrhea Pulmonary: Denied any shortness of breath cough Neurologic denied any new focal deficits All inpatient medications were reviewed and appropriate changes in these medications as dictated in the interval history and assessment and plan. PHYSICAL EXAMINATION: GENERAL: The patient is alert and oriented x3, not in any acute distress. Well developed, well nourished. HEENT: Pupils are round and equally reacting to light. EOMI. No scleral icterus. No conjunctival pallor. Normocephalic, atraumatic. No pharyngeal erythema. No thyromegaly. CARDIOVASCULAR: S1 and S2 present. No murmurs, rubs, or gallops. PULMONARY: Chest is clear to auscultation, no wheezing or crackles. ABDOMEN: Soft, nontender, nondistended, normoactive bowel sounds. No palpable organomegaly. MUSCULOSKELETAL: No joint swelling or deformity. EXTREMITIES: s/p left AKA right lower extremity edema. NEUROLOGICAL: Gross neurological examination did not reveal any focal deficits. SKIN: No rashes. Assessment and Plan Assessment Atrial fibrillation with rapid ventricular rate currently rate controlled Acute systolic heart failure Nonischemic cardiomyopathy Chronic hypoxic respiratory failure noncompliant with home oxygen secondary to homelessness Hypertension Diabetes Mellitus with hyperglycemia Coronary artery disease History asthma/COPD History DVT/PE History peripheral neuropathy History TIA Medication noncompliance Chronic nicotine use GI prophylaxis DVT prophylaxis on eliquis Full Code Plan IV lasix 40 mg Q12 and monitor intake and output PT/OT has been consulted Venous doppler reviewed Repeat labs in AM Further recommendations by cardiology Social work consultation patient does not have primary provider, difficulty with transportation to appointments Frequently runs out of his home medications. Repeat labs in AM The impression and plan of care has been dictated by Birgit Russell Nurse Practitioner as directed. Dr. Miguel MD I have performed a history and physical examination and medical decision making of this patient, discussed the same with the dictator, and agree with the dictators assessment and plan as written, documented as a scribe. Based on total visit time, I have performed more than 50% of this visit. Objective - Vital Signs Vital signs: Vital Signs Temp 97.5 F L 06/25/22 04:00 Pulse 69 06/25/22 04:00 Resp 15 06/25/22 04:00 BP 118/67 06/25/22 04:00 Pulse Ox 96 06/25/22 07:49 FiO2 Intake & Output 06/24/22 06/25/22 06/25/22 18:59 06:59 18:59 Intake Total 720 Output Total 1999 2100 500 Balance -1280 -2100 -500 Weight 97.5 kg Intake: Oral 720 Output: Urine 1999 2100 500 Other: Voiding Method Urinal Urinal # Voids 1 - Labs CBC & Chem 7: 06/25/22 09:36 06/25/22 09:36 Labs: Abnormal Lab Results - Last 24 Hours (Table) 06/24/22 06/24/22 06/24/22 Range/Units 08:00 08:00 10:04 PT 12.4 H (9.0-12.0) sec INR 1.2 H (<1.2) Sodium 134 L (137-145) mmol/L BUN 23 H (9-20) mg/dL Glucose 153 H (74-99) mg/dL POC Glucose (mg/dL) 152 H (70-110) mg/dL Calcium 7.9 L (8.4-10.2) mg/dL 06/24/22 06/24/22 06/24/22 Range/Units 11:25 16:44 20:10 PT (9.0-12.0) sec INR (<1.2) Sodium (137-145) mmol/L BUN (9-20) mg/dL Glucose (74-99) mg/dL POC Glucose (mg/dL) 129 H 181 H 171 H (70-110) mg/dL Calcium (8.4-10.2) mg/dL 06/25/22 Range/Units 06:43 PT (9.0-12.0) sec INR (<1.2) Sodium (137-145) mmol/L BUN (9-20) mg/dL Glucose (74-99) mg/dL POC Glucose (mg/dL) 133 H (70-110) mg/dL Calcium (8.4-10.2) mg/dL Assessment and Plan Time with Patient: Less than 30
[2022-06-25 16:39] LABS: Glucose,Whole Blood 156 mg/dL (70-110)
[2022-06-25] MEDS: TAMSULOSIN 0.4 MG CAP.ER.24H PO SCH (18:08)
[2022-06-25 20:12] LABS: Glucose,Whole Blood 120 mg/dL (70-110)
[2022-06-25] MEDS: TEMAZEPAM 7.5 MG CAP PO PRN (21:18)
[2022-06-25] MEDS: MELATONIN 5 MG TABLET PO SCH (21:18)
[2022-06-26] MEDS: traMADol 50 MG TAB PO PRN ×4 (05:00→23:33)
[2022-06-26 06:03] LABS: Glucose,Whole Blood 105 mg/dL (70-110)
[2022-06-26] MEDS: INSULIN ASPART (NovoLOG) 100 UNIT/ML VIAL SQ SCH ×4 (06:20→20:44)
[2022-06-26] MEDS: PANTOPRAZOLE 40 MG TABLET PO SCH (06:44)
[2022-06-26] MEDS: ATORVASTATIN 80 MG TAB PO SCH (09:22)
[2022-06-26] MEDS: AMIODARONE 200 MG TAB PO SCH ×2 (09:22→20:43)
[2022-06-26] MEDS: PREGABALIN 100 MG CAP PO SCH ×2 (09:22→20:43)
[2022-06-26] MEDS: INSULIN DETEMIR (LEVEMIR) 100 UNIT/ML SYR SQ SCH ×2 (09:22→20:44)
[2022-06-26] MEDS: LORATADINE 10 MG TAB PO SCH (09:22)
[2022-06-26] MEDS: APIXABAN 5 MG TAB PO SCH ×2 (09:22→20:43)
[2022-06-26] MEDS: METOPROLOL SUCCINATE (ER) 50 MG TAB.ER.24H PO SCH (09:22)
[2022-06-26] MEDS: lisinopriL 5 MG TAB PO SCH (09:22)
[2022-06-26] MEDS: FUROSEMIDE 10 MG/ML 4 ML VIAL IV SCH ×2 (09:23→20:43)
[2022-06-26 10:48] LABS: INR 1.2 (<1.2); Prothrombin Time 12.2 sec (9.0-12.0)
[2022-06-26 10:52] LABS: Calcium 7.8 mg/dL (8.4-10.2); Potassium 4.5 mmol/L (3.5-5.1)
[2022-06-26] MEDS: IPRATROPIUM-ALBUTEROL 3 ML NEB INHALATION PRN (11:58)
[2022-06-26 12:02] LABS: Glucose,Whole Blood 128 mg/dL (70-110)
[2022-06-26] MEDS ORDERED: ALBUTEROL NEBULIZED 2.5 MG/3 ML INHALATION PRN (14:11)
--- NOTE | 2022-06-26 14:12 | P.PN ---
Subjective Progress Note Date: 06/26/22 Gertrudis is a 67 year old male with medical history of uncontrolled diabetes, chronic atrial fibrillation, cardiomyopathy with EF of 30%, Asthma, CVA/TIA, GERD, hypertension, hyperlipidemia, PE/DVT. He is left above the knee amputation. Patient had recent hospital stay was admitted for chest pain and underwent cardiac catheterization without intervention and was optimized on medical therapy. He is also non compliant with medications and his anticoagulation. He had issues with urinary retention previous admission as well. He was treated also for finger laceration with antibiotics and local wound care. He presented with altered mental status and his pain medications were adjusted. He was discharged to subacute rehab which he reports leaving AMA once he arrived at the facility. Since then he has been out of his home medications. He presents to the hospital this admission for shortness of breath and d ifficulty breathing. He also reports increasing leg swelling greater on the right. Chest xray showing left lower lobe atelectasis or pneumonia, COPD. He has no white count on admission, hgb stable at 10.8, sodium 136, mild renal injury with creatinine of 1.22. Blood glucose stable. Troponin elevation at 0.032, 0.045, 0.042. Procal negative at 0.04. His proBNP 6580 on admission. Patient does have known EF of 30%. Patient was found to be in atrial fibrillation with rapid ventricular rate as well and was started on amiodarone gtt. INR 1.1 on admission he was resumed on warfarin with lovenox bridge. He is admitted to the hospital and cardiology has been consulted. 06/24/2022 Patient evaluated today lying in bed. He reports right sided chest pain today which patient reports as musculoskeletal, and is currently undergoing EKG which reveals atrial flutter heart rate of 83. He does have continued right lower extremity swelling without much improvement on lasix. Venous doppler is ordered to rule out DVT secondary to noncompliance with anticoagulation outpatient. Doppler is negative for DVT. Sodium 134 today, creatinine 1.18. He is continued on IV lasix 40 Q12. Resumed on amiodarone BID. Anticoagulation has been changed to eliquis. 06/25/2022 Patient monitored on medical floor. He has been continued on IV lasix 40 mg Q12 overnight. Venous doppler of right leg is negative for DVT. He has continued to diuresis overnight over 3L. Hemoglobin A1C is 7.9 which has improved from 9.0 in November of this year. Current blood glucose in the 130s range and will continue on current regimen. Nephrology and cardiology following closely. Blood pressure 118/67, maintaining oxygen saturation on room air. Continues in atrial fibrillation with controlled heart rate in the 70s. He will be continued on IV diuretics overnight. Physical therapy has evaluated the patient and recommended for D/C home on discharge. Patient has issues with transportation as he is wheel chair bound at baseline secondary to left AKA. He also has issues with homelessness without family support. He currently does not have a primary provider and was unable to fill his medications outpatient. Social work has been consulted for this. 06/26/2022 Patient continues to monitor on medical floor, continues on IV diuretics. He continues to report right chest pain which is intermittent and comes and goes. He does report a soreness but feels that this is a deep pain. There is no focal tenderness to right chest wall on examination. Chest x-ray yesterday is essentially unchanged, showing basilar atelectasis versus airspace disease. He is given incentive spirometer. Sodium 134 today, creatinine 1.27. Stable from yesterday. -2.9 L output in the last 24 hours. Continues in atrial fibrillation with controlled heart rate. Review of Systems Constitutional: Denied any fatigue denied any fever. Cardio vascular: Reports right sided chest pain, denies palpitations Gastrointestinal: denied any nausea, vomiting, diarrhea Pulmonary: Denied any shortness of breath cough Neurologic denied any new focal deficits All inpatient medications were reviewed and appropriate changes in these medications as dictated in the interval history and assessment and plan. PHYSICAL EXAMINATION: GENERAL: The patient is alert and oriented x3, not in any acute distress. Well developed, well nourished. HEENT: Pupils are round and equally reacting to light. EOMI. No scleral icterus. No conjunctival pallor. Normocephalic, atraumatic. No pharyngeal erythema. No thyromegaly. CARDIOVASCULAR: S1 and S2 present. No murmurs, rubs, or gallops. PULMONARY: Chest is clear to auscultation, no wheezing or crackles. ABDOMEN: Soft, nontender, nondistended, normoactive bowel sounds. No palpable organomegaly. MUSCULOSKELETAL: No joint swelling or deformity. EXTREMITIES: s/p left AKA right lower extremity edema. continues with JEVON wrap NEUROLOGICAL: Gross neurological examination did not reveal any focal deficits. SKIN: No rashes. Assessment and Plan Assessment Atrial fibrillation with rapid ventricular rate currently rate controlled Acute systolic heart failure Nonischemic cardiomyopathy Chronic hypoxic respiratory failure noncompliant with home oxygen secondary to homelessness Hypertension Diabetes Mellitus with hyperglycemia Coronary artery disease History asthma/COPD History DVT/PE History peripheral neuropathy History TIA Medication noncompliance Chronic nicotine use GI prophylaxis DVT prophylaxis on eliquis Full Code Plan IV lasix 40 mg Q12 and monitor intake and output PT/OT has been consulted Venous doppler reviewed Repeat labs in AM Further recommendations by cardiology Pulmicort and Ventolin inhalers added Social work consultation patient does not have primary provider, difficulty with transportation to appointments Frequently runs out of his home medications. The impression and plan of care has been dictated by Birgit Russell, Nurse Practitioner as directed. Dr. Miguel MD I have performed a history and physical examination and medical decision making of this patient, discussed the same with the dictator, and agree with the dictators assessment and plan as written, documented as a scribe. Based on total visit time, I have performed more than 50% of this visit. Objective - Vital Signs Vital signs: Vital Signs Temp 97.3 F L 06/26/22 04:50 Pulse 68 06/26/22 12:15 Resp 15 06/26/22 09:23 BP 110/65 06/26/22 12:15 Pulse Ox 98 06/26/22 12:15 FiO2 Intake & Output 06/25/22 06/26/22 06/26/22 18:59 06:59 18:59 Intake Total 550 Output Total 1900 2400 1000 Balance -1900 -1850 -1000 Weight 97.5 kg Intake: IV 10 Invasive Line 1 10 Oral 540 Output: Urine 1900 2400 1000 Other: Voiding Method Urinal Urinal Urinal - Labs CBC & Chem 7: 06/25/22 09:36 06/26/22 10:28 Labs: Abnormal Lab Results - Last 24 Hours (Table) 06/25/22 06/25/22 06/26/22 Range/Units 16:38 20:10 10:28 PT 12.2 H (9.0-12.0) sec INR 1.2 H (<1.2) Sodium (137-145) mmol/L BUN (9-20) mg/dL Creatinine (0.66-1.25) mg/dL Glucose (74-99) mg/dL POC Glucose (mg/dL) 156 H 120 H (70-110) mg/dL Calcium (8.4-10.2) mg/dL 06/26/22 06/26/22 Range/Units 10:28 12:00 PT (9.0-12.0) sec INR (<1.2) Sodium 134 L (137-145) mmol/L BUN 33 H (9-20) mg/dL Creatinine 1.27 H (0.66-1.25) mg/dL Glucose 141 H (74-99) mg/dL POC Glucose (mg/dL) 128 H (70-110) mg/dL Calcium 7.8 L (8.4-10.2) mg/dL Assessment and Plan Time with Patient: Less than 30
--- NOTE | 2022-06-26 16:11 | P.PN ---
Subjective Progress Note Date: 06/26/22 PROGRESS NOTE The patient is a 67-year-old male with known history of cardiomyopathy, history of peripheral vascular disease paroxysmal atrial fibrillation who presented was progressive dyspnea and fatigue. He was noted to be in atrial fibrillation with episodes of rapid ventricular response. He is status post left AKA. He feels better today but continues to be dyspneic. He denies any chest discomfort, dizziness or palpitations. He denies any nausea. He has mild CAD by cardiac catheterization. He has a prior history of noncompliance. June 25: He continues to have dyspnea with minimal improvement, he continues to have significant peripheral edema. He denies any dizziness or palpitation. He denies any nausea. He continues to be in atrial fibrillation with controlled ventricular response. He has no significant chest pain. No cough or fever. June 26: He's feeling slightly better overall but continues to be dyspneic. He continues to be in atrial fibrillation. His peripheral edema is better. He denies any dizziness or palpitation. He denies any nausea. He has a vague chest discomfort at times. Medications: Amiodarone 200 mg twice a, Lipitor 80 mg daily, Lasix 40 mg IV every 12 hours, lisinopril 5 mg daily, metoprolol succinate 50 mg daily, isosorbide 15 mg daily, Flomax,Eliquis 5 mg twice a day PHYSICAL EXAMINATION: Blood pressure 124/60 heart rate 70 LUNGS: Decrease air exchange but no wheezes HEART: Irregular rate and rhythm, S1, S2. No S3. systolic ejection murmur ABDOMEN: Soft, nontender, no organomegaly EXTREMETIES: Status post left AKA with 1 plus edema on the right, improved LAB: BUN 33, creatinine 1.27, potassium 4.5 IMPRESSION: 1. Symptoms of CHF 2. Atrial fibrillation with controlled ventricular response 3. Peripheral vascular disease 4. History of noncompliance PLAN: 1. Continue IV diuretics 2. Start Aldactone 3. Follow renal functions. 4. Depending on his progress further recommendations will be made regarding attempt to restore sinus mechanism. Objective - Vital Signs Vital signs: Vital Signs Temp 97.3 F L 06/26/22 04:50 Pulse 70 06/26/22 15:56 Resp 15 06/26/22 15:56 BP 124/67 06/26/22 15:56 Pulse Ox 99 06/26/22 15:56 FiO2 Intake & Output 06/25/22 06/26/22 06/26/22 18:59 06:59 18:59 Intake Total 550 Output Total 1900 2400 1600 Balance -1900 -1850 -1600 Weight 97.5 kg Intake: IV 10 Invasive Line 1 10 Oral 540 Output: Urine 1900 2400 1600 Other: Voiding Method Urinal Urinal Urinal - Labs CBC & Chem 7: 06/25/22 09:36 06/26/22 10:28 Labs: Abnormal Lab Results - Last 24 Hours (Table) 06/25/22 06/25/22 06/26/22 Range/Units 16:38 20:10 10:28 PT 12.2 H (9.0-12.0) sec INR 1.2 H (<1.2) Sodium (137-145) mmol/L BUN (9-20) mg/dL Creatinine (0.66-1.25) mg/dL Glucose (74-99) mg/dL POC Glucose (mg/dL) 156 H 120 H (70-110) mg/dL Calcium (8.4-10.2) mg/dL 06/26/22 06/26/22 Range/Units 10:28 12:00 PT (9.0-12.0) sec INR (<1.2) Sodium 134 L (137-145) mmol/L BUN 33 H (9-20) mg/dL Creatinine 1.27 H (0.66-1.25) mg/dL Glucose 141 H (74-99) mg/dL POC Glucose (mg/dL) 128 H (70-110) mg/dL Calcium 7.8 L (8.4-10.2) mg/dL
[2022-06-26 16:26] LABS: Glucose,Whole Blood 206 mg/dL (70-110)
[2022-06-26] MEDS: SPIRONOLACTONE 25 MG TAB PO SCH (17:03)
[2022-06-26] MEDS: TAMSULOSIN 0.4 MG CAP.ER.24H PO SCH (17:06)
[2022-06-26] MEDS ORDERED: SYMBICORT 160-4.5 MCG INHALER INHALATION SCH (20:00)
[2022-06-26 20:28] LABS: Glucose,Whole Blood 158 mg/dL (70-110)
[2022-06-26] MEDS: MELATONIN 5 MG TABLET PO SCH (20:43)
[2022-06-26] MEDS: BUDESONIDE 1 MG/2 ML NEBU INHALATION SCH (21:12)
[2022-06-27 06:16] LABS: Glucose,Whole Blood 119 mg/dL (70-110)
[2022-06-27] MEDS: INSULIN ASPART (NovoLOG) 100 UNIT/ML VIAL SQ SCH ×4 (06:18→20:28)
[2022-06-27] MEDS: PANTOPRAZOLE 40 MG TABLET PO SCH (06:28)
[2022-06-27 07:58] LABS: Calcium 7.9 mg/dL (8.4-10.2); Magnesium 1.9 mg/dL (1.6-2.3); Potassium 4.7 mmol/L (3.5-5.1)
[2022-06-27] MEDS: METOPROLOL SUCCINATE (ER) 50 MG TAB.ER.24H PO SCH (08:22)
[2022-06-27] MEDS: PREGABALIN 100 MG CAP PO SCH ×2 (08:22→20:28)
[2022-06-27] MEDS: LORATADINE 10 MG TAB PO SCH (08:22)
[2022-06-27] MEDS: traMADol 50 MG TAB PO PRN ×3 (08:22→23:45)
[2022-06-27] MEDS: SPIRONOLACTONE 25 MG TAB PO SCH (08:22)
[2022-06-27] MEDS: AMIODARONE 200 MG TAB PO SCH ×2 (08:23→20:28)
[2022-06-27] MEDS: ATORVASTATIN 80 MG TAB PO SCH (08:23)
[2022-06-27] MEDS: FUROSEMIDE 10 MG/ML 4 ML VIAL IV SCH ×2 (08:23→20:28)
[2022-06-27] MEDS: lisinopriL 5 MG TAB PO SCH (08:23)
[2022-06-27] MEDS: INSULIN DETEMIR (LEVEMIR) 100 UNIT/ML SYR SQ SCH ×2 (08:23→20:28)
[2022-06-27] MEDS: BUDESONIDE 1 MG/2 ML NEBU INHALATION SCH ×2 (09:12→19:47)
--- NOTE | 2022-06-27 10:19 | P.PN ---
Subjective PROGRESS NOTE The patient is a 67-year-old male with known history of cardiomyopathy, history of peripheral vascular disease paroxysmal atrial fibrillation who presented was progressive dyspnea and fatigue. He was noted to be in atrial fibrillation with episodes of rapid ventricular response. He is status post left AKA. He feels better today but continues to be dyspneic. He denies any chest discomfort, dizziness or palpitations. He denies any nausea. He has mild CAD by cardiac catheterization. He has a prior history of noncompliance. June 25: He continues to have dyspnea with minimal improvement, he continues to have significant peripheral edema. He denies any dizziness or palpitation. He denies any nausea. He continues to be in atrial fibrillation with controlled ventricular response. He has no significant chest pain. No cough or fever. June 26: He's feeling slightly better overall but continues to be dyspneic. He continues to be in atrial fibrillation. His peripheral edema is better. He denies any dizziness or palpitation. He denies any nausea. He has a vague chest discomfort at times. 06/27 Patient seen and examined. Patient did have some atypical chest pain yesterday however has resolved. Lower extremity edema has been improving. Denies any chest pain today. Still with some dyspnea. Still feels fluttering sensation. Remains in atrial fibrillation with rates relatively controlled. PHYSICAL EXAMINATION: Vitals reviewed LUNGS: Decrease air exchange but no wheezes HEART: Irregular rate and rhythm, S1, S2. No S3. systolic ejection murmur ABDOMEN: Soft, nontender, no organomegaly EXTREMETIES: Status post left AKA with 1 plus edema on the right, improved IMPRESSION: Acute on chronic systolic heart failure Cardiomyopathy EF 30%, nonischemic, possible tachycardia induced Atypical chest pain, recent C showing nonobstructive CAD Nonobstructive CAD Shortness of breath Hypertension Persistent atrial fibrillation Non-compliant with medication Chronic nicotine dependence Dyslipidemia History of DVT History of left above knee amputation PLAN: Continue current heart failure regimen. Aldactone was added. Continue with diuretics. Patient nearing euvolemic. His cardiomyopathy may be tachycardia induced and therefore discussed rhythm control. He has been on amiodarone for a few weeks. Patient agreeable and we will perform FLO cardioversion likely 06/28. Unclear if Eliquis is a true allergy as he has chest pain occassionally with the Eliquis. We will try Xarelto and monitor response. Objective - Vital Signs Vital signs: Vital Signs Temp 97.2 F L 06/27/22 08:11 Pulse 70 06/27/22 09:59 Resp 18 06/27/22 09:59 BP 111/62 06/27/22 08:11 Pulse Ox 100 06/27/22 08:11 FiO2 Intake & Output 06/26/22 06/27/22 06/27/22 18:59 06:59 18:59 Intake Total 240 Output Total 1600 1500 Balance -1600 -1500 240 Weight 94 kg Intake: Oral 240 Output: Urine 1600 1500 Other: Voiding Method Urinal Urinal Urinal - Labs CBC & Chem 7: 06/25/22 09:36 06/27/22 05:39 Labs: Abnormal Lab Results - Last 24 Hours (Table) 06/26/22 06/26/22 06/26/22 Range/Units 10:28 10:28 12:00 PT 12.2 H (9.0-12.0) sec INR 1.2 H (<1.2) Sodium 134 L (137-145) mmol/L BUN 33 H (9-20) mg/dL Creatinine 1.27 H (0.66-1.25) mg/dL Glucose 141 H (74-99) mg/dL POC Glucose (mg/dL) 128 H (70-110) mg/dL Calcium 7.8 L (8.4-10.2) mg/dL 06/26/22 06/26/22 06/27/22 Range/Units 16:25 20:24 05:39 PT (9.0-12.0) sec INR (<1.2) Sodium 135 L (137-145) mmol/L BUN 40 H (9-20) mg/dL Creatinine 1.39 H (0.66-1.25) mg/dL Glucose (74-99) mg/dL POC Glucose (mg/dL) 206 H 158 H (70-110) mg/dL Calcium 7.9 L (8.4-10.2) mg/dL 06/27/22 Range/Units 06:14 PT (9.0-12.0) sec INR (<1.2) Sodium (137-145) mmol/L BUN (9-20) mg/dL Creatinine (0.66-1.25) mg/dL Glucose (74-99) mg/dL POC Glucose (mg/dL) 119 H (70-110) mg/dL Calcium (8.4-10.2) mg/dL
[2022-06-27] MEDS: APIXABAN 5 MG TAB PO SCH (10:29)
[2022-06-27 11:40] LABS: Glucose,Whole Blood 112 mg/dL (70-110)
[2022-06-27 16:46] LABS: Glucose,Whole Blood 141 mg/dL (70-110)
--- NOTE | 2022-06-27 16:50 | P.PN ---
Subjective Progress Note Date: 06/27/22 Gertrudis is a 67 year old male with medical history of uncontrolled diabetes, chronic atrial fibrillation, cardiomyopathy with EF of 30%, Asthma, CVA/TIA, GERD, hypertension, hyperlipidemia, PE/DVT. He is left above the knee amputation. Patient had recent hospital stay was admitted for chest pain and underwent cardiac catheterization without intervention and was optimized on medical therapy. He is also non compliant with medications and his anticoagulation. He had issues with urinary retention previous admission as well. He was treated also for finger laceration with antibiotics and local wound care. He presented with altered mental status and his pain medications were adjusted. He was discharged to subacute rehab which he reports leaving AMA once he arrived at the facility. Since then he has been out of his home medications. He presents to the hospital this admission for shortness of breath and d ifficulty breathing. He also reports increasing leg swelling greater on the right. Chest xray showing left lower lobe atelectasis or pneumonia, COPD. He has no white count on admission, hgb stable at 10.8, sodium 136, mild renal injury with creatinine of 1.22. Blood glucose stable. Troponin elevation at 0.032, 0.045, 0.042. Procal negative at 0.04. His proBNP 6580 on admission. Patient does have known EF of 30%. Patient was found to be in atrial fibrillation with rapid ventricular rate as well and was started on amiodarone gtt. INR 1.1 on admission he was resumed on warfarin with lovenox bridge. He is admitted to the hospital and cardiology has been consulted. 06/24/2022 Patient evaluated today lying in bed. He reports right sided chest pain today which patient reports as musculoskeletal, and is currently undergoing EKG which reveals atrial flutter heart rate of 83. He does have continued right lower extremity swelling without much improvement on lasix. Venous doppler is ordered to rule out DVT secondary to noncompliance with anticoagulation outpatient. Doppler is negative for DVT. Sodium 134 today, creatinine 1.18. He is continued on IV lasix 40 Q12. Resumed on amiodarone BID. Anticoagulation has been changed to eliquis. 06/25/2022 Patient monitored on medical floor. He has been continued on IV lasix 40 mg Q12 overnight. Venous doppler of right leg is negative for DVT. He has continued to diuresis overnight over 3L. Hemoglobin A1C is 7.9 which has improved from 9.0 in November of this year. Current blood glucose in the 130s range and will continue on current regimen. Nephrology and cardiology following closely. Blood pressure 118/67, maintaining oxygen saturation on room air. Continues in atrial fibrillation with controlled heart rate in the 70s. He will be continued on IV diuretics overnight. Physical therapy has evaluated the patient and recommended for D/C home on discharge. Patient has issues with transportation as he is wheel chair bound at baseline secondary to left AKA. He also has issues with homelessness without family support. He currently does not have a primary provider and was unable to fill his medications outpatient. Social work has been consulted for this. 06/26/2022 Patient continues to monitor on medical floor, continues on IV diuretics. He continues to report right chest pain which is intermittent and comes and goes. He does report a soreness but feels that this is a deep pain. There is no focal tenderness to right chest wall on examination. Chest x-ray yesterday is essentially unchanged, showing basilar atelectasis versus airspace disease. He is given incentive spirometer. Sodium 134 today, creatinine 1.27. Stable from yesterday. -2.9 L output in the last 24 hours. Continues in atrial fibrillation with controlled heart rate. 06/27/2022 Patient evaluated today on medical floor, he is out in the hallway with his wheelchair. Lower extremity right leg has improved. JEVON wrap currently off. Continues with periods of dypsnea at rest and intermittent chest discomfort. Patient will be taken for FLO with cardioversion tomorrow. Continues on IV lasix. Creatinine up to 1.34 and monitor closely. Social work on board for dis charge planning. Review of Systems Constitutional: Denied any fatigue denied any fever. Cardio vascular: Reports right sided chest pain, denies palpitations Gastrointestinal: denied any nausea, vomiting, diarrhea Pulmonary: Denied any shortness of breath cough Neurologic denied any new focal deficits All inpatient medications were reviewed and appropriate changes in these medications as dictated in the interval history and assessment and plan. PHYSICAL EXAMINATION: GENERAL: The patient is alert and oriented x3, not in any acute distress. Well developed, well nourished. on 2L nasal acnnula. HEENT: Pupils are round and equally reacting to light. EOMI. No scleral icterus. No conjunctival pallor. Normocephalic, atraumatic. No pharyngeal erythema. No thyromegaly. CARDIOVASCULAR: S1 and S2 present. No murmurs, rubs, or gallops. PULMONARY: Chest is clear to auscultation, no wheezing or crackles. ABDOMEN: Soft, nontender, nondistended, normoactive bowel sounds. No palpable organomegaly. MUSCULOSKELETAL: No joint swelling or deformity. EXTREMITIES: s/p left AKA, right lower extremity edema has improved. NEUROLOGICAL: Gross neurological examination did not reveal any focal deficits. SKIN: No rashes. Assessment and Plan Assessment Atrial fibrillation with rapid ventricular rate currently rate controlled Acute systolic heart failure Nonischemic cardiomyopathy Chronic hypoxic respiratory failure noncompliant with home oxygen secondary to homelessness Hypertension Diabetes Mellitus with hyperglycemia Coronary artery disease History asthma/COPD History DVT/PE History peripheral neuropathy History TIA Medication noncompliance Chronic nicotine use GI prophylaxis DVT prophylaxis on eliquis Full Code Plan IV lasix 40 mg Q12 and monitor intake and output FLO cardioversion tomorrow Further recommendations by cardiology Social work consultation patient does not have primary provider, difficulty with transportation to appointments, obtaining medications The impression and plan of care has been dictated by Birgit Russell Nurse Practitioner as directed. Dr. Miguel MD I have performed a history and physical examination and medical decision making of this patient, discussed the same with the dictator, and agree with the dictators assessment and plan as written, documented as a scribe. Based on total visit time, I have performed more than 50% of this visit. Objective - Vital Signs Vital signs: Vital Signs Temp 97.2 F L 06/27/22 08:11 Pulse 70 06/27/22 09:59 Resp 18 06/27/22 09:59 BP 111/62 06/27/22 08:11 Pulse Ox 100 06/27/22 08:11 FiO2 Intake & Output 06/26/22 06/27/22 06/27/22 18:59 06:59 18:59 Intake Total 240 Output Total 1600 1500 Balance -1600 -1500 240 Weight 94 kg Intake: Oral 240 Output: Urine 1600 1500 Other: Voiding Method Urinal Urinal Urinal - Labs CBC & Chem 7: 06/25/22 09:36 06/27/22 05:39 Labs: Abnormal Lab Results - Last 24 Hours (Table) 06/26/22 06/26/22 06/26/22 Range/Units 10:28 10:28 12:00 PT 12.2 H (9.0-12.0) sec INR 1.2 H (<1.2) Sodium 134 L (137-145) mmol/L BUN 33 H (9-20) mg/dL Creatinine 1.27 H (0.66-1.25) mg/dL Glucose 141 H (74-99) mg/dL POC Glucose (mg/dL) 128 H (70-110) mg/dL Calcium 7.8 L (8.4-10.2) mg/dL 06/26/22 06/26/22 06/27/22 Range/Units 16:25 20:24 05:39 PT (9.0-12.0) sec INR (<1.2) Sodium 135 L (137-145) mmol/L BUN 40 H (9-20) mg/dL Creatinine 1.39 H (0.66-1.25) mg/dL Glucose (74-99) mg/dL POC Glucose (mg/dL) 206 H 158 H (70-110) mg/dL Calcium 7.9 L (8.4-10.2) mg/dL 06/27/22 Range/Units 06:14 PT (9.0-12.0) sec INR (<1.2) Sodium (137-145) mmol/L BUN (9-20) mg/dL Creatinine (0.66-1.25) mg/dL Glucose (74-99) mg/dL POC Glucose (mg/dL) 119 H (70-110) mg/dL Calcium (8.4-10.2) mg/dL Assessment and Plan Time with Patient: Less than 30
[2022-06-27] MEDS: RIVAROXABAN 20 MG TAB PO SCH (16:59)
[2022-06-27] MEDS: TAMSULOSIN 0.4 MG CAP.ER.24H PO SCH (16:59)
[2022-06-27 19:45] LABS: Glucose,Whole Blood 193 mg/dL (70-110)
[2022-06-27] MEDS: IPRATROPIUM-ALBUTEROL 3 ML NEB INHALATION PRN (19:47)
[2022-06-27] MEDS: MELATONIN 5 MG TABLET PO SCH (20:28)
[2022-06-28 06:21] LABS: Glucose,Whole Blood 94 mg/dL (70-110)
[2022-06-28] MEDS: INSULIN ASPART (NovoLOG) 100 UNIT/ML VIAL SQ SCH ×4 (06:34→19:46)
[2022-06-28] MEDS ORDERED: PROPOFOL 10 MG/ML 20 ML VIAL IV ONE (07:39)
[2022-06-28] MEDS ORDERED: ePHEDrine 50 MG/ML 1 ML VIAL ONE (07:39)
[2022-06-28] MEDS ORDERED: PHENYLEPHRINE-0.9% NACL SYG 1,000 MCG/10 ML SYRINGE ONE (07:39)
[2022-06-28] MEDS ORDERED: LIDOCAINE 2% INJ 20 MG/ML (2 ML VIAL) ONE (07:39)
[2022-06-28] MEDS ORDERED: LACTATED RINGERS 1,000 ML IV ONE (07:42)
--- NOTE | 2022-06-28 07:54 | P.PN ---
Subjective PROGRESS NOTE The patient is a 67-year-old male with known history of cardiomyopathy, history of peripheral vascular disease paroxysmal atrial fibrillation who presented was progressive dyspnea and fatigue. He was noted to be in atrial fibrillation with episodes of rapid ventricular response. He is status post left AKA. He feels better today but continues to be dyspneic. He denies any chest discomfort, dizziness or palpitations. He denies any nausea. He has mild CAD by cardiac catheterization. He has a prior history of noncompliance. June 25: He continues to have dyspnea with minimal improvement, he continues to have significant peripheral edema. He denies any dizziness or palpitation. He denies any nausea. He continues to be in atrial fibrillation with controlled ventricular response. He has no significant chest pain. No cough or fever. June 26: He's feeling slightly better overall but continues to be dyspneic. He continues to be in atrial fibrillation. His peripheral edema is better. He denies any dizziness or palpitation. He denies any nausea. He has a vague chest discomfort at times. 06/27 Patient seen and examined. Patient did have some atypical chest pain yesterday however has resolved. Lower extremity edema has been improving. Denies any chest pain today. Still with some dyspnea. Still feels fluttering sensation. Remains in atrial fibrillation with rates relatively controlled. 06/28 Patient seen and examined. Patient denies any further chest pain. Still has some dyspnea. Remains in atrial fibrillation with relatively controlled rates. PHYSICAL EXAMINATION: Vitals reviewed LUNGS: Decrease air exchange but no wheezes HEART: Irregular rate and rhythm, S1, S2. No S3. systolic ejection murmur ABDOMEN: Soft, nontender, no organomegaly EXTREMETIES: Status post left AKA with 1 plus edema on the right, improved IMPRESSION: Acute on chronic systolic heart failure Cardiomyopathy EF 30%, nonischemic, possible tachycardia induced Atypical chest pain, recent C showing nonobstructive CAD Nonobstructive CAD Shortness of breath Hypertension Persistent atrial fibrillation Non-compliant with medication Chronic nicotine dependence Dyslipidemia History of DVT History of left above knee amputation PLAN: Continue current heart failure regimen. Aldactone was added. Continue with diuretics. Unclear if Eliquis is a true allergy as he has chest pain occassionally with the Eliquis and this is his allergy. Appears to be tolerating Xarelto. FLO/cardioversion today. Objective - Vital Signs Vital signs: Vital Signs Temp 97.8 F 06/28/22 04:00 Pulse 60 06/28/22 04:00 Resp 18 06/28/22 04:00 BP 92/62 06/28/22 04:00 Pulse Ox 100 06/28/22 05:00 FiO2 21 06/27/22 19:47 Intake & Output 06/27/22 06/28/22 06/28/22 18:59 06:59 18:59 Intake Total 980 Output Total 1700 500 Balance -720 -500 Weight 96.4 kg Intake: Oral 980 Output: Urine 1700 500 Other: Voiding Method Urinal Urinal - Labs CBC & Chem 7: 06/25/22 09:36 06/27/22 05:39 Labs: Abnormal Lab Results - Last 24 Hours (Table) 06/27/22 06/27/22 06/27/22 Range/Units 05:39 11:39 16:44 Sodium 135 L (137-145) mmol/L BUN 40 H (9-20) mg/dL Creatinine 1.39 H (0.66-1.25) mg/dL POC Glucose (mg/dL) 112 H 141 H (70-110) mg/dL Calcium 7.9 L (8.4-10.2) mg/dL 06/27/22 Range/Units 19:43 Sodium (137-145) mmol/L BUN (9-20) mg/dL Creatinine (0.66-1.25) mg/dL POC Glucose (mg/dL) 193 H (70-110) mg/dL Calcium (8.4-10.2) mg/dL
--- NOTE | 2022-06-28 07:56 | P.TEE ---
Description of Procedure(s): Procedure performed: Transesophageal Echocardiogram with color flow doppler, pulsed wave doppler and continuous wave doppler, synchronize cardioversion Moderate conscious sedation: Moderate conscious sedation was supplied via anesthesia, see separate report Complications: none Indications: Symptomatic A. fib PROCEDURE: After the risks, benefits and alternatives of the above mentioned procedure was explained in detail with the patient, informed consent was obtained. Patient was brought to the lab in a fasting state. Patient was given sedation by anesthesia. The throat was sprayed with Hurricane to anesthetize the throat. A lubricated Omni probe was then introduced into the esophagus and stomach and multiple views were obtained. 2D echo with color flow doppler, pulsed wave doppler and continuous wave doppler was utilized. Agitated saline bubbles were injected to assess for any intra-atrial shunt. Patient did have some mild hypotension and therefore procedure was finished. The probe was then removed. There was no left atrial appendage thrombus and therefore synchronize cardioversion was performed with 200 J 1 with resultant sinus rhythm. Patient tolerated the procedure well. Patient was transferred to the post procedure area in stable and satisfactory condition. FINDINGS: 1. The aortic valve is a sprayed with mild aortic sclerosis without significant aortic stenosis.. 2. The mitral valve appears be normal with mild mitral regurgitation. 3. Tricuspid valve is normal with mild tricuspid regurgitation. 4. The interatrial septum is intact. No evidence of PFO. 5. Left atrial appendage is free of clot. 6. Left ventricular ejection fraction is moderately reduced at 40% with global hypokinesis.
[2022-06-28] MEDS: SPIRONOLACTONE 25 MG TAB PO SCH (08:54)
[2022-06-28] MEDS: ATORVASTATIN 80 MG TAB PO SCH (08:54)
[2022-06-28] MEDS: PANTOPRAZOLE 40 MG TABLET PO SCH (08:54)
[2022-06-28] MEDS: lisinopriL 5 MG TAB PO SCH ×2 (08:54→09:01)
[2022-06-28] MEDS: METOPROLOL SUCCINATE (ER) 50 MG TAB.ER.24H PO SCH (08:54)
[2022-06-28] MEDS: LORATADINE 10 MG TAB PO SCH (08:54)
[2022-06-28] MEDS: PREGABALIN 100 MG CAP PO SCH ×2 (08:54→20:22)
[2022-06-28] MEDS: AMIODARONE 200 MG TAB PO SCH ×2 (08:54→20:23)
[2022-06-28] MEDS: FUROSEMIDE 10 MG/ML 4 ML VIAL IV SCH (08:55)
[2022-06-28] MEDS: INSULIN DETEMIR (LEVEMIR) 100 UNIT/ML SYR SQ SCH ×3 (08:55→20:23)
[2022-06-28] MEDS: BUDESONIDE 1 MG/2 ML NEBU INHALATION SCH ×2 (09:00→21:29)
[2022-06-28 10:06] LABS: Basophils % (A) 1 %; Eosinophils # (A) 0.2 k/uL (0-0.7); Eosinophils % (A) 2 %; HCT 33.8 % (39.0-53.0); HGB 10.9 gm/dL (13.0-17.5); Hypochromasia Marked; Lymphocytes # (A) 1.5 k/uL (1.0-4.8); Lymphocytes % (A) 20 %; MCH 28.6 pg (25.0-35.0); MCHC 32.3 g/dL (31.0-37.0); MCV 88.6 fL (80.0-100.0); Mean Platelet Volume 7.7; Monocytes # (A) 0.5 k/uL (0-1.0); Monocytes % (A) 6 %; Neutrophils # (A) 5.5 k/uL (1.3-7.7); Neutrophils % (A) 70 %; Platelet Count 370 k/uL (150-450); RBC 3.81 m/uL (4.30-5.90); RDW 15.2 % (11.5-15.5); WBC 7.9 k/uL (3.8-10.6)
[2022-06-28 10:25] LABS: Calcium 8.1 mg/dL (8.4-10.2)
[2022-06-28 11:24] LABS: Glucose,Whole Blood 136 mg/dL (70-110)
[2022-06-28 12:35] VITALS: BMI 25.8
--- NOTE | 2022-06-28 14:20 | P.PN ---
Subjective Progress Note Date: 06/28/22 Gertrudis is a 67 year old male with medical history of uncontrolled diabetes, chronic atrial fibrillation, cardiomyopathy with EF of 30%, Asthma, CVA/TIA, GERD, hypertension, hyperlipidemia, PE/DVT. He is left above the knee amputation. Patient had recent hospital stay was admitted for chest pain and underwent cardiac catheterization without intervention and was optimized on medical therapy. He is also non compliant with medications and his anticoagulation. He had issues with urinary retention previous admission as well. He was treated also for finger laceration with antibiotics and local wound care. He presented with altered mental status and his pain medications were adjusted. He was discharged to subacute rehab which he reports leaving AMA once he arrived at the facility. Since then he has been out of his home medications. He presents to the hospital this admission for shortness of breath and d ifficulty breathing. He also reports increasing leg swelling greater on the right. Chest xray showing left lower lobe atelectasis or pneumonia, COPD. He has no white count on admission, hgb stable at 10.8, sodium 136, mild renal injury with creatinine of 1.22. Blood glucose stable. Troponin elevation at 0.032, 0.045, 0.042. Procal negative at 0.04. His proBNP 6580 on admission. Patient does have known EF of 30%. Patient was found to be in atrial fibrillation with rapid ventricular rate as well and was started on amiodarone gtt. INR 1.1 on admission he was resumed on warfarin with lovenox bridge. He is admitted to the hospital and cardiology has been consulted. 06/24/2022 Patient evaluated today lying in bed. He reports right sided chest pain today which patient reports as musculoskeletal, and is currently undergoing EKG which reveals atrial flutter heart rate of 83. He does have continued right lower extremity swelling without much improvement on lasix. Venous doppler is ordered to rule out DVT secondary to noncompliance with anticoagulation outpatient. Doppler is negative for DVT. Sodium 134 today, creatinine 1.18. He is continued on IV lasix 40 Q12. Resumed on amiodarone BID. Anticoagulation has been changed to eliquis. 06/25/2022 Patient monitored on medical floor. He has been continued on IV lasix 40 mg Q12 overnight. Venous doppler of right leg is negative for DVT. He has continued to diuresis overnight over 3L. Hemoglobin A1C is 7.9 which has improved from 9.0 in November of this year. Current blood glucose in the 130s range and will continue on current regimen. Nephrology and cardiology following closely. Blood pressure 118/67, maintaining oxygen saturation on room air. Continues in atrial fibrillation with controlled heart rate in the 70s. He will be continued on IV diuretics overnight. Physical therapy has evaluated the patient and recommended for D/C home on discharge. Patient has issues with transportation as he is wheel chair bound at baseline secondary to left AKA. He also has issues with homelessness without family support. He currently does not have a primary provider and was unable to fill his medications outpatient. Social work has been consulted for this. 06/26/2022 Patient continues to monitor on medical floor, continues on IV diuretics. He continues to report right chest pain which is intermittent and comes and goes. He does report a soreness but feels that this is a deep pain. There is no focal tenderness to right chest wall on examination. Chest x-ray yesterday is essentially unchanged, showing basilar atelectasis versus airspace disease. He is given incentive spirometer. Sodium 134 today, creatinine 1.27. Stable from yesterday. -2.9 L output in the last 24 hours. Continues in atrial fibrillation with controlled heart rate. 06/27/2022 Patient evaluated today on medical floor, he is out in the hallway with his wheelchair. Lower extremity right leg has improved. JEVON wrap currently off. Continues with periods of dypsnea at rest and intermittent chest discomfort. Patient will be taken for FLO with cardioversion tomorrow. Continues on IV lasix. Creatinine up to 1.34 and monitor closely. Social work on board for [facility] planning. 06/28/2022 Patient underwent FLO cardioversion today and is currently maintained sinus mechanism with heart rate in the 50-70s. FLO shows no evidence of PFO and EF shows moderately reduced at 40% with global hypokinesis. He has continued on IV lasix 40 Q12 however creatinine has been increasing and currently 1.49. Will gently hydrate. Sodium 135. 99% on room air. Reports significant depression today. Review of Systems Constitutional: Denied any fatigue denied any fever. Cardio vascular: Reports right sided chest pain, denies palpitations Gastrointestinal: denied any nausea, vomiting, diarrhea Pulmonary: Denied any shortness of breath cough Neurologic denied any new focal deficits All inpatient medications were reviewed and appropriate changes in these medications as dictated in the interval history and assessment and plan. PHYSICAL EXAMINATION: GENERAL: The patient is alert and oriented x3, not in any acute distress. Well developed, well nourished. on 2L nasal acnnula. HEENT: Pupils are round and equally reacting to light. EOMI. No scleral icterus. No conjunctival pallor. Normocephalic, atraumatic. No pharyngeal erythema. No thyromegaly. CARDIOVASCULAR: S1 and S2 present. No murmurs, rubs, or gallops. PULMONARY: Chest is clear to auscultation, no wheezing or crackles. ABDOMEN: Soft, nontender, nondistended, normoactive bowel sounds. No palpable or ganomegaly. MUSCULOSKELETAL: No joint swelling or deformity. EXTREMITIES: s/p left AKA, right lower extremity edema has improved. NEUROLOGICAL: Gross neurological examination did not reveal any focal deficits. SKIN: No rashes. Assessment and Plan Assessment Atrial fibrillation with rapid ventricular status post FLO cardioversion now maintaining sinus mechanism. Acute systolic heart failure treated with IV lasix. Nonischemic cardiomyopathy Chronic hypoxic respiratory failure noncompliant with home oxygen secondary to homelessness Hypertension currently normotensive Depression with increased depressive thoughts Diabetes Mellitus with hyperglycemia Coronary artery disease History asthma/COPD History DVT/PE History peripheral neuropathy History TIA Medication noncompliance Chronic nicotine use GI prophylaxis DVT prophylaxis on eliquis No CPR/ Yes to intubation. Plan Status post FLO cardioversion Stop IV lasix and patient will be gently hydrated, repeat labs in AM Psych will be consulted for further evaluation Further recommendations pending Social work consultation patient does not have primary provider, difficulty with transportation to appointments, obtaining medications Possible DC in the next 24 to 48 hours The impression and plan of care has been dictated by Birgit Russell Nurse Practitioner as directed. Dr. Miguel MD I have performed a history and physical examination and medical decision making of this patient, discussed the same with the dictator, and agree with the dictators assessment and plan as written, documented as a scribe. Based on total visit time, I have performed more than 50% of this visit. Objective - Vital Signs Vital signs: Vital Signs Temp 98.0 F 06/28/22 08:50 Pulse 70 06/28/22 12:44 Resp 16 06/28/22 12:44 BP 112/75 06/28/22 12:44 Pulse Ox 99 06/28/22 12:44 FiO2 21 06/27/22 19:47 Intake & Output 06/27/22 06/28/22 06/28/22 18:59 06:59 18:59 Intake Total 980 700 Output Total 1700 500 Balance -720 -500 700 Weight 96.4 kg 96.4 kg Intake: IV 700 Oral 980 Output: Urine 1700 500 Other: Voiding Method Urinal Urinal - Labs CBC & Chem 7: 06/28/22 09:39 06/28/22 09:39 Labs: Abnormal Lab Results - Last 24 Hours (Table) 06/27/22 06/27/22 06/28/22 Range/Units 16:44 19:43 09:39 RBC 3.81 L (4.30-5.90) m/uL Hgb 10.9 L (13.0-17.5) gm/dL Hct 33.8 L (39.0-53.0) % Sodium (137-145) mmol/L BUN (9-20) mg/dL Creatinine (0.66-1.25) mg/dL Glucose (74-99) mg/dL POC Glucose (mg/dL) 141 H 193 H (70-110) mg/dL Calcium (8.4-10.2) mg/dL 06/28/22 06/28/22 Range/Units 09:39 11:23 RBC (4.30-5.90) m/uL Hgb (13.0-17.5) gm/dL Hct (39.0-53.0) % Sodium 135 L (137-145) mmol/L BUN 42 H (9-20) mg/dL Creatinine 1.49 H (0.66-1.25) mg/dL Glucose 105 H (74-99) mg/dL POC Glucose (mg/dL) 136 H (70-110) mg/dL Calcium 8.1 L (8.4-10.2) mg/dL Assessment and Plan Time with Patient: Less than 30
[2022-06-28 16:47] LABS: Glucose,Whole Blood 190 mg/dL (70-110)
--- NOTE | 2022-06-28 16:55 | P.CN ---
Psychiatric Consult - . Consult date: 06/28/22 Consult:: 06/28/22 16:33 H&P Date: 06/23/22 psychiatric consultatin at the request of Medicine in managing pt suicidal threat I have reviewed patient file and communciated directly with the clinical nurisng staff on the unit. I further interviewed the patient face to face . pt Was somewhat relunctant to be assessed saying" I am not crazy" . He had completed cardiology assessment . later on , he provoded a concise history of his MOOD changes for the past few years Chief omplaint : divorce settlement "bad deal" and his below knee amputation HIP> I ntoe that he has multiple cardio-vascular and metabolic disorder summarized in the medical note: uncontrolled diabetes, chronic atrial fibrillation, cardiomyopathy with EF of 30%, Asthma, CVA/TIA, GERD, hypertension, Since his amputation, his marriage fell apart he was abandoned by his and he lost his assets. 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 Besides his , he lost support of adult children. He relied primarily upon the different placements; He hated the [facility] residential care /jail equivalent . He did not seem to agree to be placed and denied ther seriousness of his cardio-vascular MSK and pulmonary disorders as welll as his uncontrolled diabetes. HE repeatedly said nothing was right since his left him. He explored in anger attacks resulting in alleged charge of "windshild damage" and he may have been incarcernated. He did not have history but took pride of his father or grandfather serving the . HE did nto like the idea of psychiatric consultaiton or mental health. His anger attacks however, may well be variant of MDD atypical anger attacks related to his perceived loss of his autonoomy. He inssisted he was his Boss and would not cooperative with the medical or hosptial staff in finding the options for him When I asked him whether he meant to shoot himself or harm himself , he denied he ever meant harm to himself. HE dismissed he ever meant to inflict harm or end his life. It is evident that he was nervous that he may have to be transfered to the psychiatric unit as an involuntary patient. past Medical history; as indicated in he medical notes. Past Psychiatric and substance history: He did not agree he ever sought any psychatiric help or has any mental health issue. It is clear that his mood deepended to atypical Major Depressive disorder with anger attacks after his amputation and after his divorce. HE was highly resentful towards his estranged blaming her for his legal charges. Substance use history cannnot be ascertained during the 1st interview MSE: he was partially cooperative ; however, he repeatedly reaserted his decisioin making capacity but was unaware that he would run the risk of further compromsiing his CV in serms of his dyspneia and his refusal tfolllow through with the treatment plan. Affect; Highly irritable and somewhat defiant towards medical staff ; no explosive attacks of anger were imminent. However, he denied he harbored suicidal or homicidal ideation . No paranoid or grandoise delusions. No phantom pain . He appeared to have good appetitie . Insight and judgment was poor Diagnostic impression and management His suicidal threats were transient however, his impulsivity may be fueled by his unstreated atypical MDD. He was ill prepared to undergo any Behav. intervention. I consider him marginallly competent to decide for his medical treatment. His autonomy was all important and further concerted interventions; support, problem solving by SW and Psychiatric may help medical staff to find the appropriate residential care for him No Rx was indicated as he was medicallly marginally stable .most Rx had CV MSK side effects. He will not be a good candidate to be transfered to psychiatric unit
[2022-06-28] MEDS: TAMSULOSIN 0.4 MG CAP.ER.24H PO SCH (17:08)
[2022-06-28] MEDS: FUROSEMIDE 40 MG TAB PO SCH (17:08)
[2022-06-28] MEDS: traMADol 50 MG TAB PO PRN (17:08)
[2022-06-28] MEDS: RIVAROXABAN 20 MG TAB PO SCH (17:08)
[2022-06-28 19:35] LABS: Glucose,Whole Blood 127 mg/dL (70-110)
[2022-06-28 20:00] LABS: Glucose,Whole Blood 121 mg/dL (70-110)
[2022-06-28] MEDS: MELATONIN 5 MG TABLET PO SCH (20:22)
[2022-06-28] MEDS: ACETAMINOPHEN TAB 325 MG TAB PO PRN (20:34)
[2022-06-29] MEDS: traMADol 50 MG TAB PO PRN ×2 (04:27→16:09)
[2022-06-29 06:12] LABS: Glucose,Whole Blood 128 mg/dL (70-110)
[2022-06-29] MEDS: INSULIN ASPART (NovoLOG) 100 UNIT/ML VIAL SQ SCH ×4 (06:14→20:53)
[2022-06-29] MEDS: PANTOPRAZOLE 40 MG TABLET PO SCH (06:15)
[2022-06-29] MEDS: BUDESONIDE 1 MG/2 ML NEBU INHALATION SCH ×2 (08:39→19:12)
[2022-06-29] MEDS: SPIRONOLACTONE 25 MG TAB PO SCH (09:22)
[2022-06-29] MEDS: lisinopriL 5 MG TAB PO SCH (09:22)
[2022-06-29] MEDS: METOPROLOL SUCCINATE (ER) 50 MG TAB.ER.24H PO SCH (09:22)
[2022-06-29] MEDS: AMIODARONE 200 MG TAB PO SCH (09:22)
[2022-06-29] MEDS: PREGABALIN 100 MG CAP PO SCH ×2 (09:22→20:53)
[2022-06-29] MEDS: INSULIN DETEMIR (LEVEMIR) 100 UNIT/ML SYR SQ SCH ×2 (09:22→20:53)
[2022-06-29] MEDS: ATORVASTATIN 80 MG TAB PO SCH (09:22)
[2022-06-29] MEDS: FUROSEMIDE 40 MG TAB PO SCH (09:22)
[2022-06-29] MEDS: LORATADINE 10 MG TAB PO SCH (09:22)
--- NOTE | 2022-06-29 10:00 | P.PN ---
Subjective PROGRESS NOTE The patient is a 67-year-old male with known history of cardiomyopathy, history of peripheral vascular disease paroxysmal atrial fibrillation who presented was progressive dyspnea and fatigue. He was noted to be in atrial fibrillation with episodes of rapid ventricular response. He is status post left AKA. He feels better today but continues to be dyspneic. He denies any chest discomfort, dizziness or palpitations. He denies any nausea. He has mild CAD by cardiac catheterization. He has a prior history of noncompliance. June 25: He continues to have dyspnea with minimal improvement, he continues to have significant peripheral edema. He denies any dizziness or palpitation. He denies any nausea. He continues to be in atrial fibrillation with controlled ventricular response. He has no significant chest pain. No cough or fever. June 26: He's feeling slightly better overall but continues to be dyspneic. He continues to be in atrial fibrillation. His peripheral edema is better. He denies any dizziness or palpitation. He denies any nausea. He has a vague chest discomfort at times. 06/27 Patient seen and examined. Patient did have some atypical chest pain yesterday however has resolved. Lower extremity edema has been improving. Denies any chest pain today. Still with some dyspnea. Still feels fluttering sensation. Remains in atrial fibrillation with rates relatively controlled. 06/28 Patient seen and examined. Patient denies any further chest pain. Still has some dyspnea. Remains in atrial fibrillation with relatively controlled rates. 06/29 Patient seen and examined. Patient underwent FLO/cardioversion yesterday and remains in sinus rhythm. Main complaint is sinus congestion however denies any significant change in dyspnea and no chest pain or pressure. PHYSICAL EXAMINATION: Vitals reviewed LUNGS: Decrease air exchange but no wheezes HEART: Irregular rate and rhythm, S1, S2. No S3. systolic ejection murmur ABDOMEN: Soft, nontender, no organomegaly EXTREMETIES: Status post left AKA with trace edema on the right, improved IMPRESSION: Acute on chronic systolic heart failure Cardiomyopathy EF 30%, nonischemic, possible tachycardia induced Atypical chest pain, recent C showing nonobstructive CAD Nonobstructive CAD Shortness of breath Hypertension Persistent atrial fibrillation Non-compliant with medication Chronic nicotine dependence Dyslipidemia History of DVT History of left above knee amputation PLAN: Patient appears euvolemic from a heart failure standpoint. He is status post FLO cardioversion and remains in sinus rhythm. Transitioned to amiodarone 200 mg daily tomorrow. Patient stable for discharge home from a cardiology standpoint. Please call with any questions. Objective - Vital Signs Vital signs: Vital Signs Temp 97.7 F 06/29/22 04:00 Pulse 71 06/29/22 09:17 Resp 15 06/29/22 09:17 BP 114/71 06/29/22 09:17 Pulse Ox 96 06/29/22 09:17 FiO2 21 06/27/22 19:47 Intake & Output 06/28/22 06/29/22 06/29/22 18:59 06:59 18:59 Intake Total 580 240 Output Total 300 325 Balance 280 -325 240 Weight 96.4 kg Intake: IV 100 Oral 480 240 Output: Urine 300 325 Other: Voiding Method Urinal Urinal # Voids 2 - Labs CBC & Chem 7: 06/28/22 09:39 06/28/22 09:39 Labs: Abnormal Lab Results - Last 24 Hours (Table) 06/28/22 06/28/22 06/28/22 Range/Units 09:39 09:39 11:23 RBC 3.81 L (4.30-5.90) m/uL Hgb 10.9 L (13.0-17.5) gm/dL Hct 33.8 L (39.0-53.0) % Sodium 135 L (137-145) mmol/L BUN 42 H (9-20) mg/dL Creatinine 1.49 H (0.66-1.25) mg/dL Glucose 105 H (74-99) mg/dL POC Glucose (mg/dL) 136 H (70-110) mg/dL Calcium 8.1 L (8.4-10.2) mg/dL 06/28/22 06/28/22 06/28/22 Range/Units 16:45 19:33 19:56 RBC (4.30-5.90) m/uL Hgb (13.0-17.5) gm/dL Hct (39.0-53.0) % Sodium (137-145) mmol/L BUN (9-20) mg/dL Creatinine (0.66-1.25) mg/dL Glucose (74-99) mg/dL POC Glucose (mg/dL) 190 H 127 H 121 H (70-110) mg/dL Calcium (8.4-10.2) mg/dL 06/29/22 Range/Units 06:10 RBC (4.30-5.90) m/uL Hgb (13.0-17.5) gm/dL Hct (39.0-53.0) % Sodium (137-145) mmol/L BUN (9-20) mg/dL Creatinine (0.66-1.25) mg/dL Glucose (74-99) mg/dL POC Glucose (mg/dL) 128 H (70-110) mg/dL Calcium (8.4-10.2) mg/dL
[2022-06-29 11:41] LABS: Glucose,Whole Blood 144 mg/dL (70-110)
[2022-06-29 11:49] LABS: Calcium 8.1 mg/dL (8.4-10.2)
[2022-06-29] MEDS ORDERED: SODIUM CHLORIDE 0.65% NASAL SPRAY 44 ML BTL NASAL PRN (14:50)
[2022-06-29] MEDS ORDERED: SODIUM CHLORIDE 0.9% 1,000 ML IV SCH (15:00)
--- NOTE | 2022-06-29 15:05 | P.PN ---
Subjective Progress Note Date: 06/29/22 Gertrudis is a 67 year old male with medical history of uncontrolled diabetes, chronic atrial fibrillation, cardiomyopathy with EF of 30%, Asthma, CVA/TIA, GERD, hypertension, hyperlipidemia, PE/DVT. He is left above the knee amputation. Patient had recent hospital stay was admitted for chest pain and underwent cardiac catheterization without intervention and was optimized on medical therapy. He is also non compliant with medications and his anticoagulation. He had issues with urinary retention previous admission as well. He was treated also for finger laceration with antibiotics and local wound care. He presented with altered mental status and his pain medications were adjusted. He was discharged to subacute rehab which he reports leaving AMA once he arrived at the facility. Since then he has been out of his home medications. He presents to the hospital this admission for shortness of breath and d ifficulty breathing. He also reports increasing leg swelling greater on the right. Chest xray showing left lower lobe atelectasis or pneumonia, COPD. He has no white count on admission, hgb stable at 10.8, sodium 136, mild renal injury with creatinine of 1.22. Blood glucose stable. Troponin elevation at 0.032, 0.045, 0.042. Procal negative at 0.04. His proBNP 6580 on admission. Patient does have known EF of 30%. Patient was found to be in atrial fibrillation with rapid ventricular rate as well and was started on amiodarone gtt. INR 1.1 on admission he was resumed on warfarin with lovenox bridge. He is admitted to the hospital and cardiology has been consulted. 06/24/2022 Patient evaluated today lying in bed. He reports right sided chest pain today which patient reports as musculoskeletal, and is currently undergoing EKG which reveals atrial flutter heart rate of 83. He does have continued right lower extremity swelling without much improvement on lasix. Venous doppler is ordered to rule out DVT secondary to noncompliance with anticoagulation outpatient. Doppler is negative for DVT. Sodium 134 today, creatinine 1.18. He is continued on IV lasix 40 Q12. Resumed on amiodarone BID. Anticoagulation has been changed to eliquis. 06/25/2022 Patient monitored on medical floor. He has been continued on IV lasix 40 mg Q12 overnight. Venous doppler of right leg is negative for DVT. He has continued to diuresis overnight over 3L. Hemoglobin A1C is 7.9 which has improved from 9.0 in November of this year. Current blood glucose in the 130s range and will continue on current regimen. Nephrology and cardiology following closely. Blood pressure 118/67, maintaining oxygen saturation on room air. Continues in atrial fibrillation with controlled heart rate in the 70s. He will be continued on IV diuretics overnight. Physical therapy has evaluated the patient and recommended for D/C home on discharge. Patient has issues with transportation as he is wheel chair bound at baseline secondary to left AKA. He also has issues with homelessness without family support. He currently does not have a primary provider and was unable to fill his medications outpatient. Social work has been consulted for this. 06/26/2022 Patient continues to monitor on medical floor, continues on IV diuretics. He continues to report right chest pain which is intermittent and comes and goes. He does report a soreness but feels that this is a deep pain. There is no focal tenderness to right chest wall on examination. Chest x-ray yesterday is essentially unchanged, showing basilar atelectasis versus airspace disease. He is given incentive spirometer. Sodium 134 today, creatinine 1.27. Stable from yesterday. -2.9 L output in the last 24 hours. Continues in atrial fibrillation with controlled heart rate. 06/27/2022 Patient evaluated today on medical floor, he is out in the hallway with his wheelchair. Lower extremity right leg has improved. JEVON wrap currently off. Continues with periods of dypsnea at rest and intermittent chest discomfort. Patient will be taken for FLO with cardioversion tomorrow. Continues on IV lasix. Creatinine up to 1.34 and monitor closely. Social work on board for [facility] planning. 06/28/2022 Patient underwent FLO cardioversion today and is currently maintained sinus mechanism with heart rate in the 50-70s. FLO shows no evidence of PFO and EF shows moderately reduced at 40% with global hypokinesis. He has continued on IV lasix 40 Q12 however creatinine has been increasing and currently 1.49. Will gently hydrate. Sodium 135. 99% on room air. Reports significant depression today. 06/29/2022 Patient evaluated on medical floor. Today he is complaining of nasal congestion and sore throat. He has been evaluated by psychiatry. Reports depression however states no suicidal or homicidal ideations. Cardiology following amiodarone has been stopped. Blood pressure on the lower side today, also his creatinine is up to 1.63. Lisinopril will be stopped and also lasix. He will be gently hydrated overnight. Social work on board for discharge planning. Multiple barriers identified to discharge including issues with homelessness, patient is wheelchair dependent, and most likely will require oxygen on discharge. He continues in normal sinus rhythm. Review of Systems Constitutional: Denied any fatigue denied any fever. Cardio vascular: Reports right sided chest pain, denies palpitations Gastrointestinal: denied any nausea, vomiting, diarrhea. Sore throat and nasal congestion. Pulmonary: Denied any shortness of breath cough Neurologic denied any new focal deficits All inpatient medications were reviewed and appropriate changes in these medications as dictated in the interval history and assessment and plan. PHYSICAL EXAMINATION: GENERAL: The patient is alert and oriented x3, not in any acute distress. Well developed, well nourished. on 2L nasal acnnula. HEENT: Pupils are round and equally reacting to light. EOMI. No scleral icterus. No conjunctival pallor. Normocephalic, atraumatic. No pharyngeal erythema. No thyromegaly. CARDIOVASCULAR: S1 and S2 present. No murmurs, rubs, or gallops. PULMONARY: Chest is clear to auscultation, no wheezing or crackles. ABDOMEN: Soft, nontender, nondistended, normoactive bowel sounds. No palpable o rganomegaly. MUSCULOSKELETAL: No joint swelling or deformity. EXTREMITIES: s/p left AKA, right lower extremity edema has improved. NEUROLOGICAL: Gross neurological examination did not reveal any focal deficits. SKIN: No rashes. Assessment and Plan Assessment Atrial fibrillation with rapid ventricular status post FLO cardioversion now maintaining sinus mechanism. Acute systolic heart failure treated with IV lasix. Acute kidney injury prerenal secondary to diuretics. Atypical chest pain, recent [facility] showing nonobstructive CAD Nonischemic cardiomyopathy Chronic hypoxic respiratory failure noncompliant with home oxygen secondary to homelessness Hypertension currently normotensive Depression with increased depressive thoughts Diabetes Mellitus with hyperglycemia Coronary artery disease History asthma/COPD History DVT/PE History peripheral neuropathy History TIA Medication noncompliance Chronic nicotine use GI prophylaxis DVT prophylaxis on eliquis No CPR/ Yes to intubation. Plan Status post FLO cardioversion Patient will be gently hydrated overnight and repeat labs in AM. Hold lasix and stop lisinopril Check for influenza, RSV, continue with supportive care Social work consultation patient does not have primary provider, difficulty with transportation to appointments, obtaining medications. Isssues with homelessness. Patient can be downgraded from stepdown unit. The impression and plan of care has been dictated by Birgit Russell, Nurse Practitioner as directed. Dr. Miguel MD I have performed a history and physical examination and medical decision making of this patient, discussed the same with the dictator, and agree with the dictators assessment and plan as written, documented as a scribe. Based on total visit time, I have performed more than 50% of this visit. Objective - Vital Signs Vital signs: Vital Signs Temp 97.7 F 06/29/22 04:00 Pulse 55 L 06/29/22 14:00 Resp 16 06/29/22 14:00 BP 96/62 06/29/22 12:57 Pulse Ox 98 06/29/22 12:57 FiO2 21 06/27/22 19:47 Intake & Output 06/28/22 06/29/22 06/29/22 18:59 06:59 18:59 Intake Total 580 240 Output Total 300 325 300 Balance 280 -325 -60 Weight 96.4 kg Intake: IV 100 Oral 480 240 Output: Urine 300 325 300 Other: Voiding Method Urinal Urinal Urinal # Voids 2 - Labs CBC & Chem 7: 06/28/22 09:39 06/29/22 10:18 Labs: Abnormal Lab Results - Last 24 Hours (Table) 06/28/22 06/28/22 06/28/22 Range/Units 16:45 19:33 19:56 Sodium (137-145) mmol/L BUN (9-20) mg/dL Creatinine (0.66-1.25) mg/dL Glucose (74-99) mg/dL POC Glucose (mg/dL) 190 H 127 H 121 H (70-110) mg/dL Calcium (8.4-10.2) mg/dL 06/29/22 06/29/22 06/29/22 Range/Units 06:10 10:18 11:38 Sodium 133 L (137-145) mmol/L BUN 45 H (9-20) mg/dL Creatinine 1.63 H (0.66-1.25) mg/dL Glucose 226 H (74-99) mg/dL POC Glucose (mg/dL) 128 H 144 H (70-110) mg/dL Calcium 8.1 L (8.4-10.2) mg/dL Assessment and Plan Time with Patient: Less than 30
[2022-06-29] MEDS: BENZOCAINE/MENTHOL LOZENG 1 EACH LOZENGE MUCOUS MEM PRN (16:09)
[2022-06-29 16:37] LABS: Glucose,Whole Blood 125 mg/dL (70-110)
[2022-06-29] MEDS: RIVAROXABAN 20 MG TAB PO SCH (17:02)
[2022-06-29] MEDS: TAMSULOSIN 0.4 MG CAP.ER.24H PO SCH (17:02)
--- NOTE | 2022-06-29 17:56 | P.PN ---
Subjective Principal diagnosis: He was seen briefly on the unit to follow up with his earlier outburst of irritability and sucidial threat; the nurisng staff was reassured that he did not elaborate on any suicidal threat. When I talked to him, he was lucid and become more pleasant. referring to his resilence to overcome the advese impact of his multiple medical problems ranging from MSK whell casimiro bound to his dyspneia. He talked about his social netowrk has become almost non-existent: most of "my firends" have . He was encouraged to seek new friends. and to consider different options eg assisted living for him to cope with his limi tations once his CV status has improved. He was not cynaotic and helped himsefl with Rx; He greeted he nursing staff more pleasantly. 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 Support care and case management problem solving straegy benefits him most Objective - Vital Signs Vital signs: Vital Signs Temp 97.4 F L 06/29/22 16:00 Pulse 57 L 06/29/22 16:00 Resp 16 06/29/22 16:00 BP 107/67 06/29/22 16:00 Pulse Ox 95 06/29/22 16:00 FiO2 21 06/27/22 19:47 Intake & Output 06/28/22 06/29/22 06/29/22 18:59 06:59 18:59 Intake Total 580 240 Output Total 300 325 300 Balance 280 -325 -60 Weight 96.4 kg Intake: IV 100 Oral 480 240 Output: Urine 300 325 300 Other: Voiding Method Urinal Urinal Urinal # Voids 2 - Labs CBC & Chem 7: 06/28/22 09:39 06/29/22 10:18 Labs: Abnormal Lab Results - Last 24 Hours (Table) 06/28/22 06/28/22 06/29/22 Range/Units 19:33 19:56 06:10 Sodium (137-145) mmol/L BUN (9-20) mg/dL Creatinine (0.66-1.25) mg/dL Glucose (74-99) mg/dL POC Glucose (mg/dL) 127 H 121 H 128 H (70-110) mg/dL Calcium (8.4-10.2) mg/dL 06/29/22 06/29/22 06/29/22 Range/Units 10:18 11:38 16:34 Sodium 133 L (137-145) mmol/L BUN 45 H (9-20) mg/dL Creatinine 1.63 H (0.66-1.25) mg/dL Glucose 226 H (74-99) mg/dL POC Glucose (mg/dL) 144 H 125 H (70-110) mg/dL Calcium 8.1 L (8.4-10.2) mg/dL
[2022-06-29 20:17] LABS: Glucose,Whole Blood 242 mg/dL (70-110)
[2022-06-29] MEDS: MELATONIN 5 MG TABLET PO SCH (20:53)
[2022-06-30 07:14] LABS: Glucose,Whole Blood 123 mg/dL (70-110)
[2022-06-30 08:11] LABS: Calcium 7.9 mg/dL (8.4-10.2); Potassium 5.2 mmol/L (3.5-5.1)
[2022-06-30] MEDS: INSULIN ASPART (NovoLOG) 100 UNIT/ML VIAL SQ SCH ×4 (08:58→22:05)
[2022-06-30] MEDS: INSULIN DETEMIR (LEVEMIR) 100 UNIT/ML SYR SQ SCH ×2 (09:19→22:05)
[2022-06-30] MEDS: LORATADINE 10 MG TAB PO SCH (09:20)
[2022-06-30] MEDS: ATORVASTATIN 80 MG TAB PO SCH (09:21)
[2022-06-30] MEDS: PANTOPRAZOLE 40 MG TABLET PO SCH (09:21)
[2022-06-30] MEDS: traMADol 50 MG TAB PO PRN ×3 (09:21→22:05)
[2022-06-30] MEDS: AMIODARONE 200 MG TAB PO SCH (09:21)
[2022-06-30] MEDS: METOPROLOL SUCCINATE (ER) 50 MG TAB.ER.24H PO SCH (09:21)
[2022-06-30] MEDS: PREGABALIN 100 MG CAP PO SCH ×2 (09:21→22:05)
[2022-06-30] MEDS: BUDESONIDE 1 MG/2 ML NEBU INHALATION SCH ×2 (09:24→19:31)
[2022-06-30 12:44] LABS: Glucose,Whole Blood 122 mg/dL (70-110)
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
[2022-06-30] MEDS ORDERED: SODIUM CHLORIDE 0.9% 1,000 ML IV SCH (14:45)
[2022-06-30] MEDS ORDERED: SODIUM ZIRCONIUM CYCLOSILICATE 10 GM PACKET PO ONE (14:46)
--- NOTE | 2022-06-30 14:47 | P.PN ---
Subjective Progress Note Date: 06/30/22 Gertrudis is a 67 year old male with medical history of uncontrolled diabetes, chronic atrial fibrillation, cardiomyopathy with EF of 30%, Asthma, CVA/TIA, GERD, hypertension, hyperlipidemia, PE/DVT. He is left above the knee amputation. Patient had recent hospital stay was admitted for chest pain and underwent cardiac catheterization without intervention and was optimized on medical therapy. He is also non compliant with medications and his anticoagulation. He had issues with urinary retention previous admission as well. He was treated also for finger laceration with antibiotics and local wound care. He presented with altered mental status and his pain medications were adjusted. He was discharged to subacute rehab which he reports leaving AMA once he arrived at the facility. Since then he has been out of his home medications. He presents to the hospital this admission for shortness of breath and d ifficulty breathing. He also reports increasing leg swelling greater on the right. Chest xray showing left lower lobe atelectasis or pneumonia, COPD. He has no white count on admission, hgb stable at 10.8, sodium 136, mild renal injury with creatinine of 1.22. Blood glucose stable. Troponin elevation at 0.032, 0.045, 0.042. Procal negative at 0.04. His proBNP 6580 on admission. Patient does have known EF of 30%. Patient was found to be in atrial fibrillation with rapid ventricular rate as well and was started on amiodarone gtt. INR 1.1 on admission he was resumed on warfarin with lovenox bridge. He is admitted to the hospital and cardiology has been consulted. 06/24/2022 Patient evaluated today lying in bed. He reports right sided chest pain today which patient reports as musculoskeletal, and is currently undergoing EKG which reveals atrial flutter heart rate of 83. He does have continued right lower extremity swelling without much improvement on lasix. Venous doppler is ordered to rule out DVT secondary to noncompliance with anticoagulation outpatient. Doppler is negative for DVT. Sodium 134 today, creatinine 1.18. He is continued on IV lasix 40 Q12. Resumed on amiodarone BID. Anticoagulation has been changed to eliquis. 06/25/2022 Patient monitored on medical floor. He has been continued on IV lasix 40 mg Q12 overnight. Venous doppler of right leg is negative for DVT. He has continued to diuresis overnight over 3L. Hemoglobin A1C is 7.9 which has improved from 9.0 in November of this year. Current blood glucose in the 130s range and will continue on current regimen. Nephrology and cardiology following closely. Blood pressure 118/67, maintaining oxygen saturation on room air. Continues in atrial fibrillation with controlled heart rate in the 70s. He will be continued on IV diuretics overnight. Physical therapy has evaluated the patient and recommended for D/C home on discharge. Patient has issues with transportation as he is wheel chair bound at baseline secondary to left AKA. He also has issues with homelessness without family support. He currently does not have a primary provider and was unable to fill his medications outpatient. Social work has been consulted for this. 06/26/2022 Patient continues to monitor on medical floor, continues on IV diuretics. He continues to report right chest pain which is intermittent and comes and goes. He does report a soreness but feels that this is a deep pain. There is no focal tenderness to right chest wall on examination. Chest x-ray yesterday is essentially unchanged, showing basilar atelectasis versus airspace disease. He is given incentive spirometer. Sodium 134 today, creatinine 1.27. Stable from yesterday. -2.9 L output in the last 24 hours. Continues in atrial fibrillation with controlled heart rate. 06/27/2022 Patient evaluated today on medical floor, he is out in the hallway with his wheelchair. Lower extremity right leg has improved. JEVON wrap currently off. Continues with periods of dypsnea at rest and intermittent chest discomfort. Patient will be taken for FLO with cardioversion tomorrow. Continues on IV lasix. Creatinine up to 1.34 and monitor closely. Social work on board for [facility] planning. 06/28/2022 Patient underwent FLO cardioversion today and is currently maintained sinus mechanism with heart rate in the 50-70s. FLO shows no evidence of PFO and EF shows moderately reduced at 40% with global hypokinesis. He has continued on IV lasix 40 Q12 however creatinine has been increasing and currently 1.49. Will gently hydrate. Sodium 135. 99% on room air. Reports significant depression today. 06/29/2022 Patient evaluated on medical floor. Today he is complaining of nasal congestion and sore throat. He has been evaluated by psychiatry. Reports depression however states no suicidal or homicidal ideations. Cardiology following amiodarone has been stopped. Blood pressure on the lower side today, also his creatinine is up to 1.63. Lisinopril will be stopped and also lasix. He will be gently hydrated overnight. Social work on board for discharge planning. Multiple barriers identified to discharge including issues with homelessness, patient is wheelchair dependent, and most likely will require oxygen on discharge. He continues in normal sinus rhythm. 06/30/2022 Patient evaluated on medical floor. IV fluids not infusing overnight apparently. Creatinine remains at 1.63. Will gently hydrate with normal saline and repeat levels tomorrow. Covid/influenza/RSV all negative. Saturating adequately on room air. Maintaining sinus mechanism status post cardioversion this admission. APS involved for discharge planning. Review of Systems Constitutional: Denied any fatigue denied any fever. Cardio vascular: Reports right sided chest pain, denies palpitations Gastrointestinal: denied any nausea, vomiting, diarrhea. Sore throat and nasal congestion. Pulmonary: Denied any shortness of breath cough Neurologic denied any new focal deficits All inpatient medications were reviewed and appropriate changes in these medications as dictated in the interval history and assessment and plan. PHYSICAL EXAMINATION: GENERAL: The patient is alert and oriented x3, not in any acute distress. Well developed, well nourished. on 2L nasal acnnula. HEENT: Pupils are round and equally reacting to light. EOMI. No scleral icterus. No conjunctival pallor. Normocephalic, atraumatic. No pharyngeal erythema. No thyromegaly. CARDIOVASCULAR: S1 and S2 present. No murmurs, rubs, or gallops. PULMONARY: Chest is clear to auscultation, no wheezing or crackles. Diminished throughout. ABDOMEN: Soft, nontender, nondistended, normoactive bowel sounds. No palpable organomegaly. MUSCULOSKELETAL: No joint swelling or deformity. EXTREMITIES: s/p left AKA, right lower extremity edema has improved. NEUROLOGICAL: Gross neurological examination did not reveal any focal deficits. SKIN: No rashes. Assessment and Plan Assessment Atrial fibrillation with rapid ventricular status post FLO cardioversion now maintaining sinus mechanism. Acute systolic heart failure treated with IV lasix. Acute kidney injury prerenal secondary to diuretics. Hyperkalemia likely from [place] Atypical chest pain, recent C showing nonobstructive CAD Nonischemic cardiomyopathy Chronic hypoxic respiratory failure noncompliant with home oxygen secondary to homelessness Hypertension currently normotensive Depression with increased depressive thoughts Diabetes Mellitus with hyperglycemia Coronary artery disease History asthma/COPD History DVT/PE History peripheral neuropathy History TIA Medication noncompliance Chronic nicotine use GI prophylaxis DVT prophylaxis on eliquis No CPR/ Yes to intubation. Plan Status post FLO cardioversion Patient will be gently hydrated overnight and repeat labs in AM. Hold lasix and stop lisinopril Social work consultation patient does not have primary provider, difficulty with transportation to appointments, obtaining medications. [facility] evaluation tomorrow The impression and plan of care has been dictated by Birgit Russell, Nurse Practitioner as directed. Dr. Miguel MD I have performed a history and physical examination and medical decision making of this patient, discussed the same with the dictator, and agree with the dictators assessment and plan as written, documented as a scribe. Based on total visit time, I have performed more than 50% of this visit. Objective - Vital Signs Vital signs: Vital Signs Temp 97.6 F 06/30/22 03:54 Pulse 56 L 06/30/22 03:54 Resp 18 06/30/22 03:54 BP 108/64 06/30/22 03:54 Pulse Ox 93 L 06/30/22 03:54 FiO2 21 06/27/22 19:47 Intake & Output 06/29/22 06/30/22 06/30/22 18:59 06:59 18:59 Intake Total 240 240 Output Total 300 400 Balance -60 -160 Weight 80 kg Intake: Oral 240 240 Output: Urine 300 400 Other: Voiding Method Urinal Urinal # Voids 1 - Labs CBC & Chem 7: 06/28/22 09:39 06/30/22 05:31 Labs: Abnormal Lab Results - Last 24 Hours (Table) 06/29/22 06/29/22 06/29/22 Range/Units 10:18 11:38 16:34 Sodium 133 L (137-145) mmol/L Potassium (3.5-5.1) mmol/L BUN 45 H (9-20) mg/dL Creatinine 1.63 H (0.66-1.25) mg/dL Glucose 226 H (74-99) mg/dL POC Glucose (mg/dL) 144 H 125 H (70-110) mg/dL Calcium 8.1 L (8.4-10.2) mg/dL 06/29/22 06/30/22 06/30/22 Range/Units 20:15 05:31 07:12 Sodium 135 L (137-145) mmol/L Potassium 5.2 H (3.5-5.1) mmol/L BUN 42 H (9-20) mg/dL Creatinine 1.63 H (0.66-1.25) mg/dL Glucose 117 H (74-99) mg/dL POC Glucose (mg/dL) 242 H 123 H (70-110) mg/dL Calcium 7.9 L (8.4-10.2) mg/dL Assessment and Plan Time with Patient: Less than 30
[2022-06-30 17:13] LABS: Glucose,Whole Blood 114 mg/dL (70-110)
[2022-06-30] MEDS: TAMSULOSIN 0.4 MG CAP.ER.24H PO SCH (18:10)
[2022-06-30] MEDS: RIVAROXABAN 20 MG TAB PO SCH (19:25)
[2022-06-30] MEDS: IPRATROPIUM-ALBUTEROL 3 ML NEB INHALATION PRN (19:31)
[2022-06-30 20:30] LABS: Glucose,Whole Blood 228 mg/dL (70-110)
[2022-06-30] MEDS: MELATONIN 5 MG TABLET PO SCH (22:05)
[2022-07-01] MEDS: ACETAMINOPHEN TAB 325 MG TAB PO PRN (00:11)
[2022-07-01] MEDS: TEMAZEPAM 7.5 MG CAP PO PRN ×2 (01:02→21:51)
[2022-07-01] MEDS: traMADol 50 MG TAB PO PRN ×3 (05:53→21:11)
[2022-07-01 07:51] LABS: Glucose,Whole Blood 89 mg/dL (70-110)
[2022-07-01 08:10] LABS: African American GFR (CKD) 56 (>60 ml/min/1.73 sqM); Anion Gap 7 mmol/L; Blood Urea Nitrogen 41 mg/dL (9-20); Carbon Dioxide 25 mmol/L (22-30); Chloride 103 mmol/L (98-107); Glucose 105 mg/dL (74-99); Non-African American GFR(CKD) 49 (>60 ml/min/1.73 sqM); Potassium 5.3 mmol/L (3.5-5.1); Sodium 135 mmol/L (137-145)
[2022-07-01] MEDS: BUDESONIDE 1 MG/2 ML NEBU INHALATION SCH ×2 (08:42→20:37)
[2022-07-01] MEDS: INSULIN DETEMIR (LEVEMIR) 100 UNIT/ML SYR SQ SCH ×2 (09:39→21:13)
[2022-07-01] MEDS: PANTOPRAZOLE 40 MG TABLET PO SCH (09:39)
[2022-07-01] MEDS: BENZOCAINE/MENTHOL LOZENG 1 EACH LOZENGE MUCOUS MEM PRN ×3 (09:39→21:50)
[2022-07-01] MEDS: LORATADINE 10 MG TAB PO SCH (09:39)
[2022-07-01] MEDS: PREGABALIN 100 MG CAP PO SCH ×2 (09:40→21:12)
[2022-07-01] MEDS: METOPROLOL SUCCINATE (ER) 50 MG TAB.ER.24H PO SCH (09:40)
[2022-07-01] MEDS: AMIODARONE 200 MG TAB PO SCH (09:40)
[2022-07-01] MEDS: INSULIN ASPART (NovoLOG) 100 UNIT/ML VIAL SQ SCH ×4 (09:40→21:12)
[2022-07-01] MEDS: ATORVASTATIN 80 MG TAB PO SCH (09:40)
[2022-07-01 12:29] LABS: Glucose,Whole Blood 176 mg/dL (70-110)
--- NOTE | 2022-07-01 15:55 | P.PN ---
Subjective Progress Note Date: 07/01/22 Gertrudis is a 67 year old male with medical history of uncontrolled diabetes, chronic atrial fibrillation, cardiomyopathy with EF of 30%, Asthma, CVA/TIA, GERD, hypertension, hyperlipidemia, PE/DVT. He is left above the knee amputation. Patient had recent hospital stay was admitted for chest pain and underwent cardiac catheterization without intervention and was optimized on medical therapy. He is also non compliant with medications and his anticoagulation. He had issues with urinary retention previous admission as well. He was treated also for finger laceration with antibiotics and local wound care. He presented with altered mental status and his pain medications were adjusted. He was discharged to subacute rehab which he reports leaving AMA once he arrived at the facility. Since then he has been out of his home medications. He presents to the hospital this admission for shortness of breath and difficulty breathing. He also reports increasing leg swelling greater on the right. Chest xray showing left lower lobe atelectasis or pneumonia, COPD. He has no white count on admission, hgb stable at 10.8, sodium 136, mild renal injury with creatinine of 1.22. Blood glucose stable. Troponin elevation at 0.032, 0.045, 0.042. Procal negative at 0.04. His proBNP 6580 on admission. Patient does have known EF of 30%. Patient was found to be in atrial fibrillation with rapid ventricular rate as well and was started on amiodarone gtt. INR 1.1 on admission he was resumed on warfarin with lovenox bridge. He is admitted to the hospital and cardiology has been consulted. 06/24/2022 Patient evaluated today lying in bed. He reports right sided chest pain today which patient reports as musculoskeletal, and is currently undergoing EKG which reveals atrial flutter heart rate of 83. He does have continued right lower extremity swelling without much improvement on lasix. Venous doppler is ordered to rule out DVT secondary to noncompliance with anticoagulation outpatient. Doppler is negative for DVT. Sodium 134 today, creatinine 1.18. He is continued on IV lasix 40 Q12. Resumed on amiodarone BID. Anticoagulation has been changed to eliquis. 06/25/2022 Patient monitored on medical floor. He has been continued on IV lasix 40 mg Q12 overnight. Venous doppler of right leg is negative for DVT. He has continued to diuresis overnight over 3L. Hemoglobin A1C is 7.9 which has improved from 9.0 in November of this year. Current blood glucose in the 130s range and will continue on current regimen. Nephrology and cardiology following closely. Blood pressure 118/67, maintaining oxygen saturation on room air. Continues in atrial fibrillation with controlled heart rate in the 70s. He will be continued on IV diuretics overnight. Physical therapy has evaluated the patient and recommended for D/C home on discharge. Patient has issues with transportation as he is wheel chair bound at baseline secondary to left AKA. He also has issues with homelessness without family support. He currently does not have a primary provider and was unable to fill his medications outpatient. Social work has been consulted for this. 06/26/2022 Patient continues to monitor on medical floor, continues on IV diuretics. He continues to report right chest pain which is intermittent and comes and goes. He does report a soreness but feels that this is a deep pain. There is no focal tenderness to right chest wall on examination. Chest x-ray yesterday is essentially unchanged, showing basilar atelectasis versus airspace disease. He is given incentive spirometer. Sodium 134 today, creatinine 1.27. Stable from yesterday. -2.9 L output in the last 24 hours. Continues in atrial fibrillation with controlled heart rate. 06/27/2022 Patient evaluated today on medical floor, he is out in the hallway with his wheelchair. Lower extremity right leg has improved. JEVON wrap currently off. Continues with periods of dypsnea at rest and intermittent chest discomfort. Patient will be taken for FLO with cardioversion tomorrow. Continues on IV lasix. Creatinine up to 1.34 and monitor closely. Social work on board for d ischarge planning. 06/28/2022 Patient underwent FLO cardioversion today and is currently maintained sinus mechanism with heart rate in the 50-70s. FLO shows no evidence of PFO and EF shows moderately reduced at 40% with global hypokinesis. He has continued on IV lasix 40 Q12 however creatinine has been increasing and currently 1.49. Will gently hydrate. Sodium 135. 99% on room air. Reports significant depression today. 06/29/2022 Patient evaluated on medical floor. Today he is complaining of nasal congestion and sore throat. He has been evaluated by psychiatry. Reports depression however states no suicidal or homicidal ideations. Cardiology following amiodarone has been stopped. Blood pressure on the lower side today, also his creatinine is up to 1.63. Lisinopril will be stopped and also lasix. He will be gently hydrated overnight. Social work on board for discharge planning. Multiple barriers identified to discharge including issues with homelessness, patient is wheelchair dependent, and most likely will require oxygen on discharge. He continues in normal sinus rhythm. 06/30/2022 Patient evaluated on medical floor. IV fluids not infusing overnight apparently. Creatinine remains at 1.63. Will gently hydrate with normal saline and repeat levels tomorrow. Covid/influenza/RSV all negative. Saturating adequately on room air. Maintaining sinus mechanism status post cardioversion this admission. APS involved for discharge planning. 07/01/2022 Patient is seen and evaluated and follow-up and was being monitored by cardiology and has signed off recommending continuing current medication regimen and outpatient follow-up. Patient was given gentle IV hydration and kidney fu nction slightly improved. Potassium mildly elevated at 5.3 and recommend low potassium diet and will give a dose of lokelma. Encouraged increase activity as tolerated and oral intake. Patient has multiple social issues with APS now involved in case management and will need to discuss further about discharge planning. Patient is homeless and does not have a primary care provider currently. Patient has extensive history of noncompliance with medications and follow-ups. Patient is currently afebrile denying chest pain or worsening shortness of breath. Patient is lethargic but arousable reports he does not feel well. Will follow-up with repeat labs. Review of Systems Constitutional: Denied any fatigue denied any fever. Cardio vascular: Reports occasional chest pain, denies palpitations Gastrointestinal: denied any nausea, vomiting, diarrhea. Sore throat and nasal congestion. Pulmonary: Denied any worsening shortness of breath, reports occasional cough Neurologic denied any new focal deficits All inpatient medications were reviewed and appropriate changes in these medications as dictated in the interval history and assessment and plan. PHYSICAL EXAMINATION: GENERAL: The patient is alert and oriented x3, sleeping but arousable. Well developed, well nourished. on 2L nasal acnnula. HEENT: Pupils are round and equally reacting to light. EOMI. No scleral icterus. No conjunctival pallor. Normocephalic, atraumatic. No pharyngeal erythema. No thyromegaly. CARDIOVASCULAR: S1 and S2 muffled PULMONARY: Diminished breath sounds bilaterally with no wheezing or crackles. ABDOMEN: Soft, nontender, nondistended, normoactive bowel sounds. No palpable organomegaly. MUSCULOSKELETAL: No joint swelling or deformity. EXTREMITIES: s/p left AKA, right lower extremity edema has improved. NEUROLOGICAL: Gross neurological examination did not reveal any focal deficits. Diffusely weak SKIN: No rashes. Assessment: Atrial fibrillation with rapid ventricular status post FLO cardioversion now maintaining sinus mechanism. Acute on chronic systolic heart failure, acute exacerbation Acute kidney injury prerenal secondary to diuretics. Hyperkalemia likely from [place] Atypical chest pain, recent LHC showing nonobstructive CAD Nonischemic cardiomyopathy Chronic hypoxic respiratory failure noncompliant with home oxygen secondary to homelessness Hypertension currently normotensive Depression with increased depressive thoughts Diabetes Mellitus with hyperglycemia Coronary artery disease History asthma/COPD History DVT/PE History peripheral neuropathy History TIA Medication noncompliance Chronic nicotine use GI prophylaxis DVT prophylaxis on eliquis No CPR/ Yes to intubation. Plan: Patient is Status post FOL cardioversion and cardiology has signed off recommend to recontact as needed and continue with current medication regimen Patient was gently hydrated overnight and repeat labs show a slight improvement in kidney functions although potassium mildly elevated at 5.3 and will give a dose of lokelma and recommended follow-up labs Recommend to continue holding lasix and lisinopril has been stopped Social work following as patient does not have primary provider, difficulty with transportation to appointments, obtaining medications. Issues with homelessness. APS evaluation pending, will need to discuss with case management about discharge planning Due to multiple complex medical issues, prognosis is guarded The impression and plan of care has been dictated by Rashida Peterson, Nurse Practitioner as directed. Dr. Antonio MD I have performed a history and examination and MDM of this patient, discussed the same with the dictator, and agree with the dictator's assessment and plan as written ,documented as a scribe. Based on total visit time, I have performed more than 50% of the visit. Objective - Vital Signs Vital signs: Vital Signs Temp 97.7 F 07/01/22 07:44 Pulse 50 L 07/01/22 07:44 Resp 18 07/01/22 07:44 BP 114/64 07/01/22 07:44 Pulse Ox 91 L 07/01/22 08:42 FiO2 21 06/27/22 19:47 Intake & Output 06/30/22 07/01/22 07/01/22 18:59 06:59 18:59 Intake Total 1500 Output Total 300 600 Balance -300 900 Weight 85.5 kg Intake: Oral 1500 Output: Urine 300 600 Other: Voiding Method Urinal # Voids 2 - Labs CBC & Chem 7: 06/28/22 09:39 07/01/22 06:06 Labs: Abnormal Lab Results - Last 24 Hours (Table) 06/30/22 06/30/22 07/01/22 Range/Units 17:06 20:21 06:06 Sodium 135 L (137-145) mmol/L Potassium 5.3 H (3.5-5.1) mmol/L BUN 41 H (9-20) mg/dL Creatinine 1.49 H (0.66-1.25) mg/dL Glucose 105 H (74-99) mg/dL POC Glucose (mg/dL) 114 H 228 H (70-110) mg/dL Calcium 8.0 L (8.4-10.2) mg/dL 07/01/22 Range/Units 12:27 Sodium (137-145) mmol/L Potassium (3.5-5.1) mmol/L BUN (9-20) mg/dL Creatinine (0.66-1.25) mg/dL Glucose (74-99) mg/dL POC Glucose (mg/dL) 176 H (70-110) mg/dL Calcium (8.4-10.2) mg/dL
[2022-07-01] MEDS ORDERED: SODIUM ZIRCONIUM CYCLOSILICATE 10 GM PACKET PO ONE (17:00)
[2022-07-01 17:42] LABS: Glucose,Whole Blood 151 mg/dL (70-110)
[2022-07-01] MEDS: TAMSULOSIN 0.4 MG CAP.ER.24H PO SCH (18:07)
[2022-07-01] MEDS: RIVAROXABAN 20 MG TAB PO SCH (18:07)
[2022-07-01 20:55] LABS: Glucose,Whole Blood 234 mg/dL (70-110)
[2022-07-01] MEDS: MELATONIN 5 MG TABLET PO SCH (21:12)
[2022-07-02] MEDS: ACETAMINOPHEN TAB 325 MG TAB PO PRN ×2 (03:35→17:16)
[2022-07-02] MEDS: traMADol 50 MG TAB PO PRN ×3 (03:35→20:36)
[2022-07-02] MEDS: BUDESONIDE 1 MG/2 ML NEBU INHALATION SCH ×2 (07:13→19:04)
[2022-07-02 07:22] LABS: Glucose,Whole Blood 86 mg/dL (70-110)
[2022-07-02] MEDS: INSULIN ASPART (NovoLOG) 100 UNIT/ML VIAL SQ SCH ×4 (07:38→20:34)
[2022-07-02] MEDS: PREGABALIN 100 MG CAP PO SCH ×2 (08:39→20:34)
[2022-07-02] MEDS: PANTOPRAZOLE 40 MG TABLET PO SCH (08:39)
[2022-07-02] MEDS: LORATADINE 10 MG TAB PO SCH (08:39)
[2022-07-02] MEDS: INSULIN DETEMIR (LEVEMIR) 100 UNIT/ML SYR SQ SCH ×2 (08:39→20:34)
[2022-07-02] MEDS: ATORVASTATIN 80 MG TAB PO SCH (08:39)
[2022-07-02] MEDS: AMIODARONE 200 MG TAB PO SCH (08:39)
[2022-07-02] MEDS: METOPROLOL SUCCINATE (ER) 50 MG TAB.ER.24H PO SCH (08:40)
[2022-07-02 11:39] LABS: African American GFR (CKD) 66.4 (60.0-200.0); Anion Gap 10.7 mmol/L (10.00-18.00); BUN/Creat Ratio 24.15 Ratio (12.00-20.00); Blood Urea Nitrogen 31.4 mg/dL (9.0-27.0); Calcium 8.4 mg/dL (8.7-10.3); Carbon Dioxide 24.3 mmol/L (20.0-27.5); Non-African American GFR(CKD) 57.3 (60.0-200.0)
--- NOTE | 2022-07-02 12:00 | PN ---
PROGRESS NOTE DATE OF SERVICE: 07/02/2022 SUBJECTIVE: This is a 67-year-old gentleman, who was admitted with atrial fibrillation, had multiple medical issues. The patient will be closely monitored. Case Management and Discharge Planning also evaluating for any discharge disposition at this time. No chest pain. No palpitation. OBJECTIVE: VITAL SIGNS: Pulse 53, blood pressure 90/43, respirations 18. CHEST: Clear to auscultation. CARDIOVASCULAR: S1, S2. ABDOMEN: Soft. NERVOUS SYSTEM: No focal deficits. LABORATORY DATA: Reviewed. ASSESSMENT: 1. Atrial fibrillation with rapid ventricular rate, status post cardioversion. 2. Acute on chronic systolic congestive heart failure. 3. Acute kidney injury. 4. Hyperkalemia. 5. Atypical chest pain. 6. Multiple medical issues. RECOMMENDATIONS AND DISCUSSION: Recommend to continue current medications and symptomatic treatment. I would recommend repeat labs tomorrow. Closely follow with Social Work and Case Management for discharge disposition. Further recommendations to follow. MMODL / IJN: [id number] /
[2022-07-02 12:18] LABS: Glucose,Whole Blood 101 mg/dL (70-110)
[2022-07-02] MEDS: RIVAROXABAN 20 MG TAB PO SCH (17:14)
[2022-07-02 17:16] LABS: Glucose,Whole Blood 127 mg/dL (70-110)
[2022-07-02] MEDS: TAMSULOSIN 0.4 MG CAP.ER.24H PO SCH (18:18)
[2022-07-02 20:11] LABS: Glucose,Whole Blood 163 mg/dL (70-110)
[2022-07-02] MEDS: MELATONIN 5 MG TABLET PO SCH (20:35)
[2022-07-03] MEDS: traMADol 50 MG TAB PO PRN (05:45)
[2022-07-03] MEDS: BUDESONIDE 1 MG/2 ML NEBU INHALATION SCH ×2 (07:45→20:11)
[2022-07-03 07:52] LABS: Glucose,Whole Blood 73 mg/dL (70-110)
[2022-07-03] MEDS: INSULIN ASPART (NovoLOG) 100 UNIT/ML VIAL SQ SCH ×4 (08:28→20:50)
[2022-07-03] MEDS: INSULIN DETEMIR (LEVEMIR) 100 UNIT/ML SYR SQ SCH ×2 (08:31→20:51)
[2022-07-03] MEDS: LORATADINE 10 MG TAB PO SCH (08:32)
[2022-07-03] MEDS: PANTOPRAZOLE 40 MG TABLET PO SCH (08:32)
[2022-07-03] MEDS: AMIODARONE 200 MG TAB PO SCH (08:32)
[2022-07-03] MEDS: METOPROLOL SUCCINATE (ER) 50 MG TAB.ER.24H PO SCH (08:32)
[2022-07-03] MEDS: ATORVASTATIN 80 MG TAB PO SCH (08:32)
[2022-07-03] MEDS: PREGABALIN 100 MG CAP PO SCH ×2 (08:32→20:07)
[2022-07-03 09:36] LABS: Basophils # (A) 0.03 X 10*3/uL (0.00-0.10); Basophils % (A) 0.4 %; Eosinophils # (A) 0.12 X 10*3/uL (0.04-0.35); Eosinophils % (A) 1.6 %; HCT 31.9 % (39.6-50.0); HGB 9.6 g/dL (13.0-17.0); Immature Grans, Automated 0.3 %; Lymphocytes # (A) 1.61 X 10*3/uL (0.90-5.00); Lymphocytes % (A) 21.6 %; MCH 26.8 pg (27.0-32.0); MCHC 30.1 g/dL (32.0-37.0); MCV 89.1 fL (80.0-97.0); Mean Platelet Volume 10.5 fL (9.5-12.2); Monocytes # (A) 0.65 X 10*3/uL (0.20-1.00); Monocytes % (A) 8.7 %; NRBC Per 100 WBC 0 /100 WBCS (0.0-0.0); Neutrophils # (A) 5.04 X 10*3/uL (1.80-7.70); Neutrophils % (A) 67.4 %; Platelet Count 319 X 10*3/uL (140-440); RBC 3.58 X 10*6/uL (4.40-5.60); WBC 7.47 X 10*3/uL (4.50-10.00)
[2022-07-03 09:42] LABS: African American GFR (CKD) 67.6 (60.0-200.0); Albumin 3.2 g/dL (3.8-4.9); Albumin/Globulin Ratio 1.1 (1.60-3.17); BUN/Creat Ratio 21.8 Ratio (12.00-20.00); Blood Urea Nitrogen 27.9 mg/dL (9.0-27.0); Calcium 8.4 mg/dL (8.7-10.3); Carbon Dioxide 25.2 mmol/L (20.0-27.5); Globulin 2.9 g/dL (1.6-3.3); Non-African American GFR(CKD) 58.3 (60.0-200.0); Potassium 5.2 mmol/L (3.5-5.5); Total Bilirubin 0.3 mg/dL (0.30-1.20); Total Protein 6.2 g/dL (6.2-8.2)
--- NOTE | 2022-07-03 09:55 | XR ---
EXAMINATION TYPE: XR shoulder complete 3 views LT DATE OF EXAM: 07/03/2022 Comparison: None Clinical History: 67-year-old male Pain Findings: Some irregularity and somewhat rounded contour at the greater tuberosity. Subacromial space is preser sandra. No acute fracture, subluxation, or dislocation seen. Possibly worsening aeration at the left mid and lower lung. Impression: 1. Bony changes at the greater tuberosity suggests chronic rotator cuff tendinopathy. Unable to exclu de underlying rotator cuff tear. Otherwise, no acute osseous abnormality seen. 2. Possible developing airspace disease left mid and lower lung.
[2022-07-03 11:32] LABS: Glucose,Whole Blood 113 mg/dL (70-110)
[2022-07-03] MEDS: HYDROcodone/APAP 5-325MG 1 EACH TAB PO PRN ×2 (12:38→20:07)
[2022-07-03 17:30] LABS: Glucose,Whole Blood 181 mg/dL (70-110)
[2022-07-03] MEDS: RIVAROXABAN 20 MG TAB PO SCH (18:16)
[2022-07-03] MEDS: TAMSULOSIN 0.4 MG CAP.ER.24H PO SCH (18:16)
[2022-07-03] MEDS: MELATONIN 5 MG TABLET PO SCH (20:07)
[2022-07-03 20:40] LABS: Glucose,Whole Blood 158 mg/dL (70-110)
--- NOTE | 2022-07-04 03:04 | PN ---
PROGRESS NOTE DATE OF SERVICE: 07/03/2022 HISTORY OF PRESENT ILLNESS: This is a 67-year-old gentleman, who was admitted with atrial fibrillation, rapid ventricular rate, is being closely monitored at this time. The placement is being handled by discharge planning team. A shoulder x-ray was done, which showed bony changes, chronic rotator cuff tendinopathy. No chest pain. No palpitation. OBJECTIVE: VITAL SIGNS: Pulse is 79, blood pressure 130/56, respiration 16. CHEST: Clear to auscultation. CARDIOVASCULAR: S1, S2. ABDOMEN: Soft. NERVOUS SYSTEM: No focal deficits. LABORATORY DATA: WBC 9.6, hemoglobin 9.6. ASSESSMENT: 1. Atrial fibrillation with rapid ventricular rate, status post cardioversion. 2. Left shoulder chronic rotator cuff tendinopathy. 3. Acute on chronic systolic congestive heart failure. 4. Acute kidney injury. 5. Rule out pneumonia. 6. Hyperkalemia. 7. Atypical chest pain. 8. Multiple medical issues. RECOMMENDATIONS: Recommend to continue current medications and symptomatic treatment. I would recommend a chest x-ray to rule out pneumonia. Continue symptomatic treatment. Further recommendations to follow. MMODL / IJN: [id number] /
[2022-07-04] MEDS: HYDROcodone/APAP 5-325MG 1 EACH TAB PO PRN ×3 (04:38→22:46)
[2022-07-04] MEDS: ATORVASTATIN 80 MG TAB PO SCH (07:49)
[2022-07-04] MEDS: METOPROLOL SUCCINATE (ER) 50 MG TAB.ER.24H PO SCH (07:49)
[2022-07-04] MEDS: AMIODARONE 200 MG TAB PO SCH (07:49)
[2022-07-04] MEDS: LORATADINE 10 MG TAB PO SCH (07:49)
[2022-07-04] MEDS: PREGABALIN 100 MG CAP PO SCH ×2 (07:49→22:46)
[2022-07-04] MEDS: PANTOPRAZOLE 40 MG TABLET PO SCH (07:49)
[2022-07-04] MEDS: INSULIN ASPART (NovoLOG) 100 UNIT/ML VIAL SQ SCH ×4 (07:53→23:01)
[2022-07-04] MEDS: INSULIN DETEMIR (LEVEMIR) 100 UNIT/ML SYR SQ SCH ×2 (07:53→23:00)
[2022-07-04 07:54] LABS: Glucose,Whole Blood 103 mg/dL (70-110)
[2022-07-04] MEDS: BUDESONIDE 1 MG/2 ML NEBU INHALATION SCH ×2 (08:37→19:00)
[2022-07-04 12:50] LABS: Glucose,Whole Blood 101 mg/dL (70-110)
[2022-07-04] MEDS: FUROSEMIDE 40 MG TAB PO SCH (13:51)
--- NOTE | 2022-07-04 14:54 | P.PN ---
Subjective Progress Note Date: 07/04/22 Gertrudis is a 67 year old male with medical history of uncontrolled diabetes, chronic atrial fibrillation, cardiomyopathy with EF of 30%, Asthma, CVA/TIA, GERD, hypertension, hyperlipidemia, PE/DVT. He is left above the knee amputation. Patient had recent hospital stay was admitted for chest pain and underwent cardiac catheterization without intervention and was optimized on medical therapy. He is also non compliant with medications and his anticoagulation. He had issues with urinary retention previous admission as well. He was treated also for finger laceration with antibiotics and local wound care. He presented with altered mental status and his pain medications were adjusted. He was discharged to subacute rehab which he reports leaving AMA once he arrived at the facility. Since then he has been out of his home medications. He presents to the hospital this admission for shortness of breath and difficulty breathing. He also reports increasing leg swelling greater on the right. Chest xray showing left lower lobe atelectasis or pneumonia, COPD. He has no white count on admission, hgb stable at 10.8, sodium 136, mild renal injury with creatinine of 1.22. Blood glucose stable. Troponin elevation at 0.032, 0.045, 0.042. Procal negative at 0.04. His proBNP 6580 on admission. Patient does have known EF of 30%. Patient was found to be in atrial fibrillation with rapid ventricular rate as well and was started on amiodarone gtt. INR 1.1 on admission he was resumed on warfarin with lovenox bridge. He is admitted to the hospital and cardiology has been consulted. 06/24/2022 Patient evaluated today lying in bed. He reports right sided chest pain today which patient reports as musculoskeletal, and is currently undergoing EKG which reveals atrial flutter heart rate of 83. He does have continued right lower extremity swelling without much improvement on lasix. Venous doppler is ordered to rule out DVT secondary to noncompliance with anticoagulation outpatient. Doppler is negative for DVT. Sodium 134 today, creatinine 1.18. He is continued on IV lasix 40 Q12. Resumed on amiodarone BID. Anticoagulation has been changed to eliquis. 06/25/2022 Patient monitored on medical floor. He has been continued on IV lasix 40 mg Q12 overnight. Venous doppler of right leg is negative for DVT. He has continued to diuresis overnight over 3L. Hemoglobin A1C is 7.9 which has improved from 9.0 in November of this year. Current blood glucose in the 130s range and will continue on current regimen. Nephrology and cardiology following closely. Blood pressure 118/67, maintaining oxygen saturation on room air. Continues in atrial fibrillation with controlled heart rate in the 70s. He will be continued on IV diuretics overnight. Physical therapy has evaluated the patient and recommended for D/C home on discharge. Patient has issues with transportation as he is wheel chair bound at baseline secondary to left AKA. He also has issues with homelessness without family support. He currently does not have a primary provider and was unable to fill his medications outpatient. Social work has been consulted for this. 06/26/2022 Patient continues to monitor on medical floor, continues on IV diuretics. He continues to report right chest pain which is intermittent and comes and goes. He does report a soreness but feels that this is a deep pain. There is no focal tenderness to right chest wall on examination. Chest x-ray yesterday is essentially unchanged, showing basilar atelectasis versus airspace disease. He is given incentive spirometer. Sodium 134 today, creatinine 1.27. Stable from yesterday. -2.9 L output in the last 24 hours. Continues in atrial fibrillation with controlled heart rate. 06/27/2022 Patient evaluated today on medical floor, he is out in the hallway with his wheelchair. Lower extremity right leg has improved. JEVON wrap currently off. Continues with periods of dypsnea at rest and intermittent chest discomfort. Patient will be taken for FLO with cardioversion tomorrow. Continues on IV lasix. Creatinine up to 1.34 and monitor closely. Social work on board for d ischarge planning. 06/28/2022 Patient underwent FLO cardioversion today and is currently maintained sinus mechanism with heart rate in the 50-70s. FLO shows no evidence of PFO and EF shows moderately reduced at 40% with global hypokinesis. He has continued on IV lasix 40 Q12 however creatinine has been increasing and currently 1.49. Will gently hydrate. Sodium 135. 99% on room air. Reports significant depression today. 06/29/2022 Patient evaluated on medical floor. Today he is complaining of nasal congestion and sore throat. He has been evaluated by psychiatry. Reports depression however states no suicidal or homicidal ideations. Cardiology following amiodarone has been stopped. Blood pressure on the lower side today, also his creatinine is up to 1.63. Lisinopril will be stopped and also lasix. He will be gently hydrated overnight. Social work on board for discharge planning. Multiple barriers identified to discharge including issues with homelessness, patient is wheelchair dependent, and most likely will require oxygen on discharge. He continues in normal sinus rhythm. 06/30/2022 Patient evaluated on medical floor. IV fluids not infusing overnight apparently. Creatinine remains at 1.63. Will gently hydrate with normal saline and repeat levels tomorrow. Covid/influenza/RSV all negative. Saturating adequately on room air. Maintaining sinus mechanism status post cardioversion this admission. APS involved for discharge planning. 07/01/2022 Patient is seen and evaluated and follow-up and was being monitored by cardiology and has signed off recommending continuing current medication regimen and outpatient follow-up. Patient was given gentle IV hydration and kidney fu nction slightly improved. Potassium mildly elevated at 5.3 and recommend low potassium diet and will give a dose of lokelma. Encouraged increase activity as tolerated and oral intake. Patient has multiple social issues with APS now involved in case management and will need to discuss further about discharge planning. Patient is homeless and does not have a primary care provider currently. Patient has extensive history of noncompliance with medications and follow-ups. Patient is currently afebrile denying chest pain or worsening shortness of breath. Patient is lethargic but arousable reports he does not feel well. Will follow-up with repeat labs. 07/04/2022 Patient is seen and evaluated in follow-up this morning reports his lower extremity swelling is worsening and will resume low-dose Lasix and monitor closely with follow-up labs. Patient is homeless and will follow up with case management about discharge planning as he reports he has no money and no place to go. Patient had been living out of hotels most recently prior to discharge to [facility] which he left. Patient is afebrile denies chest pain or shortness of breath. Encouraged increase activity as tolerated and continue with current medications. Review of Systems Constitutional: Denied any fatigue denied any fever. Cardio vascular: Reports occasional chest pain, denies palpitations Gastrointestinal: denied any nausea, vomiting, diarrhea. Sore throat and nasal congestion. Pulmonary: Denied any worsening shortness of breath, reports occasional cough Neurologic denied any new focal deficits All inpatient medications were reviewed and appropriate changes in these medications as dictated in the interval history and assessment and plan. PHYSICAL EXAMINATION: GENERAL: The patient is alert and oriented x3, awake. Well developed, well nourished. on 2L nasal acnnula. HEENT: Pupils are round and equally reacting to light. EOMI. No scleral icterus. No conjunctival pallor. Normocephalic, atraumatic. No pharyngeal erythema. No thyromegaly. CARDIOVASCULAR: S1 and S2 muffled PULMONARY: Diminished breath sounds bilaterally with no wheezing or crackles. ABDOMEN: Soft, nontender, nondistended, normoactive bowel sounds. No palpable organomegaly. MUSCULOSKELETAL: No joint swelling or deformity. EXTREMITIES: s/p left AKA, right lower extremity edema mildly worsening and encourage the patient elevate lower extremity while at rest. NEUROLOGICAL: Gross neurological examination did not reveal any focal deficits. Diffusely weak SKIN: No rashes. Assessment: Atrial fibrillation with rapid ventricular status post FLO cardioversion now maintaining sinus mechanism. Acute on chronic systolic heart failure, acute exacerbation Acute kidney injury prerenal secondary to diuretics. Hyperkalemia likely from [place] Atypical chest pain, recent LHC showing nonobstructive CAD Nonischemic cardiomyopathy Chronic hypoxic respiratory failure noncompliant with home oxygen secondary to homelessness Hypertension currently normotensive Depression with increased depressive thoughts Diabetes Mellitus with hyperglycemia Coronary artery disease History asthma/COPD History DVT/PE History peripheral neuropathy History TIA Medication noncompliance Chronic nicotine use GI prophylaxis DVT prophylaxis on eliquis No CPR/ Yes to intubation. Plan: Recommend continue with current medications and management of symptoms Patient having some right lower extremity swelling and will resume low-dose Lasix and follow-up on labs and get a chest x-ray today. Will discuss with case management about discharge planning as patient is reporting he is homeless and APS is following and will need to determine discharge planning Due to multiple complex medical issues, prognosis is guarded Possible discharge in the next 24 hours The impression and plan of care has been dictated by Rashida Peterson, Nurse Practitioner as directed. Dr. Antonio MD I have performed a history and examination and MDM of this patient, discussed the same with the dictator, and agree with the dictator's assessment and plan as written ,documented as a scribe. Based on total visit time, I have performed more than 50% of the visit. Objective - Vital Signs Vital signs: Vital Signs Temp 97.5 F L 07/04/22 12:40 Pulse 72 07/04/22 12:40 Resp 18 07/04/22 12:40 BP 120/65 07/04/22 12:40 Pulse Ox 95 07/04/22 12:40 FiO2 21 06/27/22 19:47 Intake & Output 07/03/22 07/04/22 07/04/22 18:59 06:59 18:59 Intake Total 1200 Balance 1200 Intake: Oral 1200 Other: Voiding Method Urinal # Voids 2 2 - Labs CBC & Chem 7: 07/03/22 05:28 07/03/22 05:28 Labs: Abnormal Lab Results - Last 24 Hours (Table) 07/03/22 07/03/22 Range/Units 17:27 20:39 POC Glucose (mg/dL) 181 H 158 H (70-110) mg/dL
--- NOTE | 2022-07-04 15:43 | XR ---
EXAMINATION TYPE: XR chest 1V portable DATE OF EXAM: 07/04/2022 Comparison: 06/25/2022 Clinical History: 67 year-old male shortness of breath, lower extremity swelling shortness of breath, LE swelling Findings: Heart mildly enlarged. Patchy mid and lower lung opacities have increased. Hyperinflation may reflect underlying emphysema. Impression: Mild cardiomegaly with increasing mid and lower lung patchy opacities. Either developing infiltrates or sequela of CHF with developing pulmonary edema.
[2022-07-04] MEDS: RIVAROXABAN 20 MG TAB PO SCH (16:46)
[2022-07-04 17:18] LABS: Glucose,Whole Blood 179 mg/dL (70-110)
[2022-07-04] MEDS: TAMSULOSIN 0.4 MG CAP.ER.24H PO SCH (18:01)
[2022-07-04 20:51] LABS: Glucose,Whole Blood 220 mg/dL (70-110)
[2022-07-04] MEDS: MELATONIN 5 MG TABLET PO SCH (22:46)
[2022-07-05] MEDS: ACETAMINOPHEN TAB 325 MG TAB PO PRN (01:22)
[2022-07-05] MEDS: traMADol 50 MG TAB PO PRN (01:23)
[2022-07-05 06:54] LABS: African American GFR (CKD) 65 (>60 ml/min/1.73 sqM); Anion Gap 4 mmol/L; Blood Urea Nitrogen 29 mg/dL (9-20); Calcium 8.2 mg/dL (8.4-10.2); Carbon Dioxide 25 mmol/L (22-30); Chloride 107 mmol/L (98-107); Glucose 170 mg/dL (74-99); Non-African American GFR(CKD) 57 (>60 ml/min/1.73 sqM); Potassium 4.7 mmol/L (3.5-5.1); Sodium 136 mmol/L (137-145)
[2022-07-05 07:09] LABS: Glucose,Whole Blood 159 mg/dL (70-110)
[2022-07-05] MEDS: INSULIN ASPART (NovoLOG) 100 UNIT/ML VIAL SQ SCH ×4 (08:48→21:13)
[2022-07-05] MEDS: INSULIN DETEMIR (LEVEMIR) 100 UNIT/ML SYR SQ SCH ×2 (08:48→14:31)
[2022-07-05] MEDS: ATORVASTATIN 80 MG TAB PO SCH (08:49)
[2022-07-05] MEDS: METOPROLOL SUCCINATE (ER) 50 MG TAB.ER.24H PO SCH (08:49)
[2022-07-05] MEDS: PANTOPRAZOLE 40 MG TABLET PO SCH (08:49)
[2022-07-05] MEDS: FUROSEMIDE 40 MG TAB PO SCH (08:49)
[2022-07-05] MEDS: LORATADINE 10 MG TAB PO SCH (08:49)
[2022-07-05] MEDS: PREGABALIN 100 MG CAP PO SCH ×2 (08:49→21:25)
[2022-07-05] MEDS: AMIODARONE 200 MG TAB PO SCH (08:49)
[2022-07-05] MEDS: HYDROcodone/APAP 5-325MG 1 EACH TAB PO PRN ×3 (08:54→21:24)
[2022-07-05] MEDS: BUDESONIDE 1 MG/2 ML NEBU INHALATION SCH ×2 (09:04→21:33)
[2022-07-05 11:53] LABS: Glucose,Whole Blood 67 mg/dL (70-110)
[2022-07-05 12:26] LABS: Glucose,Whole Blood 61 mg/dL (70-110)
[2022-07-05 13:01] LABS: Glucose,Whole Blood 116 mg/dL (70-110)
[2022-07-05 17:10] LABS: Glucose,Whole Blood 178 mg/dL (70-110)
[2022-07-05] MEDS: RIVAROXABAN 20 MG TAB PO SCH (18:03)
[2022-07-05] MEDS: TAMSULOSIN 0.4 MG CAP.ER.24H PO SCH (18:03)
[2022-07-05 21:05] LABS: Glucose,Whole Blood 101 mg/dL (70-110)
[2022-07-05] MEDS: MELATONIN 5 MG TABLET PO SCH (21:24)
--- NOTE | 2022-07-06 02:31 | P.PN ---
Subjective Progress Note Date: 07/05/22 Gertrudis is a 67 year old male with medical history of uncontrolled diabetes, chronic atrial fibrillation, cardiomyopathy with EF of 30%, Asthma, CVA/TIA, GERD, hypertension, hyperlipidemia, PE/DVT. He is left above the knee amputation. Patient had recent hospital stay was admitted for chest pain and underwent cardiac catheterization without intervention and was optimized on medical therapy. He is also non compliant with medications and his anticoagulation. He had issues with urinary retention previous admission as well. He was treated also for finger laceration with antibiotics and local wound care. He presented with altered mental status and his pain medications were adjusted. He was discharged to subacute rehab which he reports leaving AMA once he arrived at the facility. Since then he has been out of his home medications. He presents to the hospital this admission for shortness of breath and difficulty breathing. He also reports increasing leg swelling greater on the right. Chest xray showing left lower lobe atelectasis or pneumonia, COPD. He has no white count on admission, hgb stable at 10.8, sodium 136, mild renal injury with creatinine of 1.22. Blood glucose stable. Troponin elevation at 0.032, 0.045, 0.042. Procal negative at 0.04. His proBNP 6580 on admission. Patient does have known EF of 30%. Patient was found to be in atrial fibrillation with rapid ventricular rate as well and was started on amiodarone gtt. INR 1.1 on admission he was resumed on warfarin with lovenox bridge. He is admitted to the hospital and cardiology has been consulted. 06/24/2022 Patient evaluated today lying in bed. He reports right sided chest pain today which patient reports as musculoskeletal, and is currently undergoing EKG which reveals atrial flutter heart rate of 83. He does have continued right lower extremity swelling without much improvement on lasix. Venous doppler is ordered to rule out DVT secondary to noncompliance with anticoagulation outpatient. Doppler is negative for DVT. Sodium 134 today, creatinine 1.18. He is continued on IV lasix 40 Q12. Resumed on amiodarone BID. Anticoagulation has been changed to eliquis. 06/25/2022 Patient monitored on medical floor. He has been continued on IV lasix 40 mg Q12 overnight. Venous doppler of right leg is negative for DVT. He has continued to diuresis overnight over 3L. Hemoglobin A1C is 7.9 which has improved from 9.0 in November of this year. Current blood glucose in the 130s range and will continue on current regimen. Nephrology and cardiology following closely. Blood pressure 118/67, maintaining oxygen saturation on room air. Continues in atrial fibrillation with controlled heart rate in the 70s. He will be continued on IV diuretics overnight. Physical therapy has evaluated the patient and recommended for D/C home on discharge. Patient has issues with transportation as he is wheel chair bound at baseline secondary to left AKA. He also has issues with homelessness without family support. He currently does not have a primary provider and was unable to fill his medications outpatient. Social work has been consulted for this. 06/26/2022 Patient continues to monitor on medical floor, continues on IV diuretics. He continues to report right chest pain which is intermittent and comes and goes. He does report a soreness but feels that this is a deep pain. There is no focal tenderness to right chest wall on examination. Chest x-ray yesterday is essentially unchanged, showing basilar atelectasis versus airspace disease. He is given incentive spirometer. Sodium 134 today, creatinine 1.27. Stable from yesterday. -2.9 L output in the last 24 hours. Continues in atrial fibrillation with controlled heart rate. 06/27/2022 Patient evaluated today on medical floor, he is out in the hallway with his wheelchair. Lower extremity right leg has improved. JEVON wrap currently off. Continues with periods of dypsnea at rest and intermittent chest discomfort. Patient will be taken for FLO with cardioversion tomorrow. Continues on IV lasix. Creatinine up to 1.34 and monitor closely. Social work on board for d ischarge planning. 06/28/2022 Patient underwent FLO cardioversion today and is currently maintained sinus mechanism with heart rate in the 50-70s. FLO shows no evidence of PFO and EF shows moderately reduced at 40% with global hypokinesis. He has continued on IV lasix 40 Q12 however creatinine has been increasing and currently 1.49. Will gently hydrate. Sodium 135. 99% on room air. Reports significant depression today. 06/29/2022 Patient evaluated on medical floor. Today he is complaining of nasal congestion and sore throat. He has been evaluated by psychiatry. Reports depression however states no suicidal or homicidal ideations. Cardiology following amiodarone has been stopped. Blood pressure on the lower side today, also his creatinine is up to 1.63. Lisinopril will be stopped and also lasix. He will be gently hydrated overnight. Social work on board for discharge planning. Multiple barriers identified to discharge including issues with homelessness, patient is wheelchair dependent, and most likely will require oxygen on discharge. He continues in normal sinus rhythm. 06/30/2022 Patient evaluated on medical floor. IV fluids not infusing overnight apparently. Creatinine remains at 1.63. Will gently hydrate with normal saline and repeat levels tomorrow. Covid/influenza/RSV all negative. Saturating adequately on room air. Maintaining sinus mechanism status post cardioversion this admission. APS involved for discharge planning. 07/01/2022 Patient is seen and evaluated and follow-up and was being monitored by cardiology and has signed off recommending continuing current medication regimen and outpatient follow-up. Patient was given gentle IV hydration and kidney fu nction slightly improved. Potassium mildly elevated at 5.3 and recommend low potassium diet and will give a dose of lokelma. Encouraged increase activity as tolerated and oral intake. Patient has multiple social issues with APS now involved in case management and will need to discuss further about discharge planning. Patient is homeless and does not have a primary care provider currently. Patient has extensive history of noncompliance with medications and follow-ups. Patient is currently afebrile denying chest pain or worsening shortness of breath. Patient is lethargic but arousable reports he does not feel well. Will follow-up with repeat labs. 07/04/2022 Patient is seen and evaluated in follow-up this morning reports his lower extremity swelling is worsening and will resume low-dose Lasix and monitor closely with follow-up labs. Patient is homeless and will follow up with case management about discharge planning as he reports he has no money and no place to go. Patient had been living out of hotels most recently prior to discharge to [facility] which he left. Patient is afebrile denies chest pain or shortness of breath. Encouraged increase activity as tolerated and continue with current medications. 07/05/2022 Patient is seen and evaluated in follow-up today and nursing staff reporting blood sugars are hypoglycemic and on the lower side and insulins have been held. Patient is eating all of meals. Recommend close monitoring overnight with follow-up labs in the a.m. and will discuss further with case management about discharge planning. Patient is currently homeless and high risk for readmissions. Patient is currently afebrile and started on Lasix yesterday for lower extremity edema and will continue. Creatinine stable. Patient denies chest pains currently or worsening shortness of breath. Review of Systems Constitutional: Denied any fatigue denied any fever. Cardio vascular: Reports occasional chest pain, denies palpitations Gastrointestinal: denied any nausea, vomiting, diarrhea. Pulmonary: Denied any worsening shortness of breath, reports occasional cough Neurologic denied any new focal deficits All inpatient medications were reviewed and appropriate changes in these medications as dictated in the interval history and assessment and plan. PHYSICAL EXAMINATION: GENERAL: The patient is alert and oriented x3, awake. Well developed, well nourished. on 2L nasal acnnula. HEENT: Pupils are round and equally reacting to light. EOMI. No scleral icterus. No conjunctival pallor. Normocephalic, atraumatic. No pharyngeal erythema. No thyromegaly. CARDIOVASCULAR: S1 and S2 muffled PULMONARY: Diminished breath sounds bilaterally with no wheezing or crackles. ABDOMEN: Soft, nontender, nondistended, normoactive bowel sounds. No palpable or ganomegaly. MUSCULOSKELETAL: No joint swelling or deformity. EXTREMITIES: s/p left AKA, right lower extremity edema noted NEUROLOGICAL: Gross neurological examination did not reveal any focal deficits. Diffusely weak SKIN: No rashes. Assessment: Atrial fibrillation with rapid ventricular status post FLO cardioversion now maintaining sinus mechanism. Acute on chronic systolic heart failure, acute exacerbation Acute kidney injury prerenal secondary to diuretics. Hyperkalemia likely from [place] Atypical chest pain, recent C showing nonobstructive CAD Nonischemic cardiomyopathy Chronic hypoxic respiratory failure noncompliant with home oxygen secondary to homelessness Hypertension currently normotensive Depression with increased depressive thoughts, cleared by psychiatry Diabetes Mellitus , uncontrolled with hyperglycemia and now hypoglycemia Coronary artery disease History asthma/COPD History DVT/PE History peripheral neuropathy History TIA Medication noncompliance Chronic nicotine use GI prophylaxis DVT prophylaxis on eliquis No CPR/ Yes to intubation. Plan: Recommend continue with current medications and management of symptoms , recommend monitoring Accu-Cheks closely and insulin scale as needed, long-acting held for hypoglycemic events today. Patient is eating all of meals and will continue to monitor closely overnight with possible discharge planning in 24 hours Patient was having some right lower extremity swelling and have resumed low-dose Lasix and follow-up on labs Will discuss with case management about discharge planning as patient is reporting he is homeless and APS is following and will need to determine discharge planning Due to multiple complex medical issues, prognosis is guarded Possible discharge in the next 24 hours The impression and plan of care has been dictated by Rashida Peterson, Nurse Practitioner as directed. Dr. Antonio MD I have performed a history and examination and MDM of this patient, discussed the same with the dictator, and agree with the dictator's assessment and plan as written ,documented as a scribe. Based on total visit time, I have performed more than 50% of the visit. Objective - Vital Signs Vital signs: Vital Signs Temp 97.5 F L 07/05/22 07:07 Pulse 55 L 07/05/22 07:07 Resp 18 07/05/22 07:07 BP 110/61 07/05/22 07:07 Pulse Ox 98 07/05/22 07:07 FiO2 21 06/27/22 19:47 Intake & Output 07/04/22 07/05/22 07/05/22 18:59 06:59 18:59 Intake Total 480 Balance 480 Intake: Oral 480 Other: Voiding Method Urinal # Voids 4 - Labs CBC & Chem 7: 07/03/22 05:28 07/05/22 06:15 Labs: Abnormal Lab Results - Last 24 Hours (Table) 07/04/22 07/04/22 07/05/22 Range/Units 17:17 20:49 06:15 Sodium 136 L (137-145) mmol/L BUN 29 H (9-20) mg/dL Creatinine 1.32 H (0.66-1.25) mg/dL Glucose 170 H (74-99) mg/dL POC Glucose (mg/dL) 179 H 220 H (70-110) mg/dL Calcium 8.2 L (8.4-10.2) mg/dL 07/05/22 07/05/22 07/05/22 Range/Units 07:07 11:51 12:25 Sodium (137-145) mmol/L BUN (9-20) mg/dL Creatinine (0.66-1.25) mg/dL Glucose (74-99) mg/dL POC Glucose (mg/dL) 159 H 67 L 61 L (70-110) mg/dL Calcium (8.4-10.2) mg/dL 07/05/22 Range/Units 12:59 Sodium (137-145) mmol/L BUN (9-20) mg/dL Creatinine (0.66-1.25) mg/dL Glucose (74-99) mg/dL POC Glucose (mg/dL) 116 H (70-110) mg/dL Calcium (8.4-10.2) mg/dL
[2022-07-06] MEDS: HYDROcodone/APAP 5-325MG 1 EACH TAB PO PRN ×3 (02:55→16:48)
[2022-07-06 07:07] LABS: Glucose,Whole Blood 112 mg/dL (70-110)
[2022-07-06] MEDS: BUDESONIDE 1 MG/2 ML NEBU INHALATION SCH ×2 (07:41→19:04)
[2022-07-06] MEDS: INSULIN ASPART (NovoLOG) 100 UNIT/ML VIAL SQ SCH ×4 (07:43→20:57)
[2022-07-06] MEDS: LORATADINE 10 MG TAB PO SCH (07:45)
[2022-07-06] MEDS: PREGABALIN 100 MG CAP PO SCH ×2 (07:45→20:57)
[2022-07-06] MEDS: FUROSEMIDE 40 MG TAB PO SCH (07:45)
[2022-07-06] MEDS: PANTOPRAZOLE 40 MG TABLET PO SCH (07:45)
[2022-07-06] MEDS: ATORVASTATIN 80 MG TAB PO SCH (07:45)
[2022-07-06] MEDS: METOPROLOL SUCCINATE (ER) 50 MG TAB.ER.24H PO SCH (07:45)
[2022-07-06] MEDS: AMIODARONE 200 MG TAB PO SCH (07:47)
[2022-07-06] MEDS: INSULIN DETEMIR (LEVEMIR) 100 UNIT/ML SYR SQ SCH ×2 (08:20→20:57)
[2022-07-06 10:27] LABS: African American GFR (CKD) 57.2 (60.0-200.0); Anion Gap 7.1 mmol/L (10.00-18.00); BUN/Creat Ratio 20.14 Ratio (12.00-20.00); Blood Urea Nitrogen 29.6 mg/dL (9.0-27.0); Calcium 8.4 mg/dL (8.7-10.3); Carbon Dioxide 27.1 mmol/L (20.0-27.5); Non-African American GFR(CKD) 49.4 (60.0-200.0); Potassium 4.8 mmol/L (3.5-5.5)
[2022-07-06 11:15] LABS: Glucose,Whole Blood 149 mg/dL (70-110)
[2022-07-06] MEDS: RIVAROXABAN 20 MG TAB PO SCH (16:48)
[2022-07-06 17:10] LABS: Glucose,Whole Blood 124 mg/dL (70-110)
[2022-07-06] MEDS: TAMSULOSIN 0.4 MG CAP.ER.24H PO SCH (17:50)
[2022-07-06 20:10] VITALS: RESP 18
[2022-07-06 20:51] LABS: Glucose,Whole Blood 255 mg/dL (70-110)
[2022-07-06] MEDS: MELATONIN 5 MG TABLET PO SCH (20:57)
[2022-07-07] MEDS: HYDROcodone/APAP 5-325MG 1 EACH TAB PO PRN ×2 (02:19→11:42)
--- NOTE | 2022-07-07 05:32 | P.PN ---
Subjective Progress Note Date: 07/06/22 Gertrudis is a 67 year old male with medical history of uncontrolled diabetes, chronic atrial fibrillation, cardiomyopathy with EF of 30%, Asthma, CVA/TIA, GERD, hypertension, hyperlipidemia, PE/DVT. He is left above the knee amputation. Patient had recent hospital stay was admitted for chest pain and underwent cardiac catheterization without intervention and was optimized on medical therapy. He is also non compliant with medications and his anticoagulation. He had issues with urinary retention previous admission as well. He was treated also for finger laceration with antibiotics and local wound care. He presented with altered mental status and his pain medications were adjusted. He was discharged to subacute rehab which he reports leaving AMA once he arrived at the facility. Since then he has been out of his home medications. He presents to the hospital this admission for shortness of breath and difficulty breathing. He also reports increasing leg swelling greater on the right. Chest xray showing left lower lobe atelectasis or pneumonia, COPD. He has no white count on admission, hgb stable at 10.8, sodium 136, mild renal injury with creatinine of 1.22. Blood glucose stable. Troponin elevation at 0.032, 0.045, 0.042. Procal negative at 0.04. His proBNP 6580 on admission. Patient does have known EF of 30%. Patient was found to be in atrial fibrillation with rapid ventricular rate as well and was started on amiodarone gtt. INR 1.1 on admission he was resumed on warfarin with lovenox bridge. He is admitted to the hospital and cardiology has been consulted. 06/24/2022 Patient evaluated today lying in bed. He reports right sided chest pain today which patient reports as musculoskeletal, and is currently undergoing EKG which reveals atrial flutter heart rate of 83. He does have continued right lower extremity swelling without much improvement on lasix. Venous doppler is ordered to rule out DVT secondary to noncompliance with anticoagulation outpatient. Doppler is negative for DVT. Sodium 134 today, creatinine 1.18. He is continued on IV lasix 40 Q12. Resumed on amiodarone BID. Anticoagulation has been changed to eliquis. 06/25/2022 Patient monitored on medical floor. He has been continued on IV lasix 40 mg Q12 overnight. Venous doppler of right leg is negative for DVT. He has continued to diuresis overnight over 3L. Hemoglobin A1C is 7.9 which has improved from 9.0 in November of this year. Current blood glucose in the 130s range and will continue on current regimen. Nephrology and cardiology following closely. Blood pressure 118/67, maintaining oxygen saturation on room air. Continues in atrial fibrillation with controlled heart rate in the 70s. He will be continued on IV diuretics overnight. Physical therapy has evaluated the patient and recommended for D/C home on discharge. Patient has issues with transportation as he is wheel chair bound at baseline secondary to left AKA. He also has issues with homelessness without family support. He currently does not have a primary provider and was unable to fill his medications outpatient. Social work has been consulted for this. 06/26/2022 Patient continues to monitor on medical floor, continues on IV diuretics. He continues to report right chest pain which is intermittent and comes and goes. He does report a soreness but feels that this is a deep pain. There is no focal tenderness to right chest wall on examination. Chest x-ray yesterday is essentially unchanged, showing basilar atelectasis versus airspace disease. He is given incentive spirometer. Sodium 134 today, creatinine 1.27. Stable from yesterday. -2.9 L output in the last 24 hours. Continues in atrial fibrillation with controlled heart rate. 06/27/2022 Patient evaluated today on medical floor, he is out in the hallway with his wheelchair. Lower extremity right leg has improved. JEVON wrap currently off. Continues with periods of dypsnea at rest and intermittent chest discomfort. Patient will be taken for FLO with cardioversion tomorrow. Continues on IV lasix. Creatinine up to 1.34 and monitor closely. Social work on board for d ischarge planning. 06/28/2022 Patient underwent FLO cardioversion today and is currently maintained sinus mechanism with heart rate in the 50-70s. FLO shows no evidence of PFO and EF shows moderately reduced at 40% with global hypokinesis. He has continued on IV lasix 40 Q12 however creatinine has been increasing and currently 1.49. Will gently hydrate. Sodium 135. 99% on room air. Reports significant depression today. 06/29/2022 Patient evaluated on medical floor. Today he is complaining of nasal congestion and sore throat. He has been evaluated by psychiatry. Reports depression however states no suicidal or homicidal ideations. Cardiology following amiodarone has been stopped. Blood pressure on the lower side today, also his creatinine is up to 1.63. Lisinopril will be stopped and also lasix. He will be gently hydrated overnight. Social work on board for discharge planning. Multiple barriers identified to discharge including issues with homelessness, patient is wheelchair dependent, and most likely will require oxygen on discharge. He continues in normal sinus rhythm. 06/30/2022 Patient evaluated on medical floor. IV fluids not infusing overnight apparently. Creatinine remains at 1.63. Will gently hydrate with normal saline and repeat levels tomorrow. Covid/influenza/RSV all negative. Saturating adequately on room air. Maintaining sinus mechanism status post cardioversion this admission. APS involved for discharge planning. 07/01/2022 Patient is seen and evaluated and follow-up and was being monitored by cardiology and has signed off recommending continuing current medication regimen and outpatient follow-up. Patient was given gentle IV hydration and kidney fu nction slightly improved. Potassium mildly elevated at 5.3 and recommend low potassium diet and will give a dose of lokelma. Encouraged increase activity as tolerated and oral intake. Patient has multiple social issues with APS now involved in case management and will need to discuss further about discharge planning. Patient is homeless and does not have a primary care provider currently. Patient has extensive history of noncompliance with medications and follow-ups. Patient is currently afebrile denying chest pain or worsening shortness of breath. Patient is lethargic but arousable reports he does not feel well. Will follow-up with repeat labs. 07/04/2022 Patient is seen and evaluated in follow-up this morning reports his lower extremity swelling is worsening and will resume low-dose Lasix and monitor closely with follow-up labs. Patient is homeless and will follow up with case management about discharge planning as he reports he has no money and no place to go. Patient had been living out of hotels most recently prior to discharge to [facility] which he left. Patient is afebrile denies chest pain or shortness of breath. Encouraged increase activity as tolerated and continue with current medications. 07/05/2022 Patient is seen and evaluated in follow-up today and nursing staff reporting blood sugars are hypoglycemic and on the lower side and insulins have been held. Patient is eating all of meals. Recommend close monitoring overnight with follow-up labs in the a.m. and will discuss further with case management about discharge planning. Patient is currently homeless and high risk for readmissions. Patient is currently afebrile and started on Lasix yesterday for lower extremity edema and will continue. Creatinine stable. Patient denies chest pains currently or worsening shortness of breath. 07/06/2022 Patient is seen and evaluated in follow-up with no acute overnight issues noted. Patient continues to report pain the shoulder which is chronic and x-rays were negative. Patient reports case management following up on possible fpc in [place] although facility later called back reporting he will not be accepted there. Patient currently homeless and working on discharge planning. Patient has significant history of noncompliance with medications and follow-up. Patient currently has no primary care provider and has had several readmissions for his comorbidities and noncompliance. Patient is wheelchair-bound and at his baseline. Vital signs are stable and patient is currently 92-94% on room air. Kidney function stable with creatinine of 1.5 and have started low-dose Lasix and will continue. Swelling somewhat improved of the lower extremity. Patient is currently afebrile denies chest pain or shortness of breath. No reports of nausea vomiting and patient is tolerating diet. We'll continue to monitor Accu- Cheks closely. Review of Systems Constitutional: Denied any fatigue denied any fever. Cardio vascular: No Reports of chest pain, denies palpitations Gastrointestinal: denied any nausea, vomiting, diarrhea. Pulmonary: Denied any worsening shortness of breath, reports occasional cough Neurologic denied any new focal deficits All inpatient medications were reviewed and appropriate changes in these medications as dictated in the interval history and assessment and plan. PHYSICAL EXAMINATION: GENERAL: The patient is alert and oriented x3, awake. Well developed, well nourished. on room air HEENT: Pupils are round and equally reacting to light. EOMI. No scleral icterus. No conjunctival pallor. Normocephalic, atraumatic. No pharyngeal erythema. No thyromegaly. CARDIOVASCULAR: S1 and S2 muffled PULMONARY: Diminished breath sounds bilaterally with no wheezing or crackles. ABDOMEN: Soft, nontender, nondistended, normoactive bowel sounds. No palpable organomegaly. MUSCULOSKELETAL: No joint swelling or deformity. EXTREMITIES: s/p left AKA, right lower extremity edema noted with improvement NEUROLOGICAL: Gross neurological examination did not reveal any focal deficits. Diffusely weak SKIN: No rashes. Assessment: Atrial fibrillation with rapid ventricular status post FLO cardioversion now maintaining sinus mechanism. Acute on chronic systolic heart failure, acute exacerbation Acute kidney injury prerenal secondary to diuretics. Hyperkalemia likely from [place], improved Atypical chest pain, recent LHC showing nonobstructive CAD Nonischemic cardiomyopathy Chronic hypoxic respiratory failure noncompliant with home oxygen secondary to homelessness Hypertension currently normotensive Depression with increased depressive thoughts, cleared by psychiatry Diabetes Mellitus , uncontrolled with hyperglycemia and hypoglycemia Coronary artery disease History asthma/COPD History DVT/PE History peripheral neuropathy History TIA Medication noncompliance Chronic nicotine use GI prophylaxis DVT prophylaxis on eliquis No CPR/ Yes to intubation. Plan: Recommend continue with current medications and management of symptoms , recommend monitoring Accu-Cheks closely and insulin scale as needed, Patient is eating all of meals and will continue to monitor closely overnight with possible discharge planning in 24 hours Patient was having some right lower extremity swelling and have resumed low-dose Lasix and follow-up on labs , stable creatinine 1.5 Will discuss with case management about discharge planning as patient is reporting he is homeless and APS is following and will need to determine disch arge planning, there was a possible fpc option in [place] although they are not able to accept him per case management Due to multiple complex medical issues, prognosis is guarded Possible discharge in the next 24 hours The impression and plan of care has been dictated by Rashida Peterson, Nurse Practitioner as directed. Dr. Antonio MD I have performed a history and examination and MDM of this patient, discussed the same with the dictator, and agree with the dictator's assessment and plan as written ,documented as a scribe. Based on total visit time, I have performed more than 50% of the visit. Objective - Vital Signs Vital signs: Vital Signs Temp 97.6 F 07/07/22 01:48 Pulse 62 07/07/22 01:48 Resp 18 07/07/22 01:48 BP 120/64 07/07/22 01:48 Pulse Ox 92 L 07/07/22 01:48 FiO2 21 06/27/22 19:47 Intake & Output 07/06/22 07/06/22 07/07/22 06:59 18:59 06:59 Intake Total 500 Output Total 400 Balance 100 Intake: Oral 500 Output: Urine 400 Other: Voiding Method Urinal Urinal # Voids 2 1 2 - Labs CBC & Chem 7: 07/03/22 05:28 07/06/22 06:40 Labs: Abnormal Lab Results - Last 24 Hours (Table) 07/06/22 07/06/22 07/06/22 Range/Units 06:40 07:05 11:14 Anion Gap 7.10 L (10.00-18.00) mmol/L BUN 29.6 H (9.0-27.0) mg/dL Est GFR (CKD-EPI)AfAm 57.2 L (60.0-200.0) Est GFR (CKD-EPI)NonAf 49.4 L (60.0-200.0) BUN/Creatinine Ratio 20.14 H (12.00-20.00) Ratio POC Glucose (mg/dL) 112 H 149 H (70-110) mg/dL Calcium 8.4 L (8.7-10.3) mg/dL 07/06/22 07/06/22 Range/Units 17:08 20:39 Anion Gap (10.00-18.00) mmol/L BUN (9.0-27.0) mg/dL Est GFR (CKD-EPI)AfAm (60.0-200.0) Est GFR (CKD-EPI)NonAf (60.0-200.0) BUN/Creatinine Ratio (12.00-20.00) Ratio POC Glucose (mg/dL) 124 H 255 H (70-110) mg/dL Calcium (8.7-10.3) mg/dL
[2022-07-07 07:12] LABS: Glucose,Whole Blood 91 mg/dL (70-110)
[2022-07-07] MEDS: INSULIN ASPART (NovoLOG) 100 UNIT/ML VIAL SQ SCH ×2 (07:23→11:24)
[2022-07-07] MEDS: BUDESONIDE 1 MG/2 ML NEBU INHALATION SCH (07:41)
[2022-07-07] MEDS: AMIODARONE 200 MG TAB PO SCH (07:43)
[2022-07-07] MEDS: LORATADINE 10 MG TAB PO SCH (07:43)
[2022-07-07] MEDS: PREGABALIN 100 MG CAP PO SCH (07:43)
[2022-07-07] MEDS: FUROSEMIDE 40 MG TAB PO SCH (07:43)
[2022-07-07] MEDS: PANTOPRAZOLE 40 MG TABLET PO SCH (07:43)
[2022-07-07] MEDS: ATORVASTATIN 80 MG TAB PO SCH (07:43)
[2022-07-07] MEDS: METOPROLOL SUCCINATE (ER) 50 MG TAB.ER.24H PO SCH (07:43)
[2022-07-07] MEDS: INSULIN DETEMIR (LEVEMIR) 100 UNIT/ML SYR SQ SCH (08:17)
[2022-07-07 11:07] LABS: Glucose,Whole Blood 145 mg/dL (70-110)
[2022-07-07 13:18] VITALS: BP 124/63; PULSE 52; TEMP 98.2
--- NOTE | 2022-07-11 15:58 | P.DS ---
Providers Date of admission: 06/22/22 17:17 Expected date of discharge: 07/07/22 Attending physician: Shadia Alvarez Consults: 06/28/22 10:53 Consult Physician Routine Consulting Provider: Bhavik Young Consult Reason/Comments: depression Do you want consulting provider notified?: Already Contacted Primary care physician: Stated None Hospital Course: Final diagnosis Atrial fibrillation with rapid ventricular status post FLO cardioversion now maintaining sinus mechanism. Acute on chronic systolic heart failure, acute exacerbation Acute kidney injury prerenal secondary to diuretics. Hyperkalemia likely from ANDERSON, improved Atypical chest pain, recent LHC showing nonobstructive CAD Nonischemic cardiomyopathy Chronic hypoxic respiratory failure noncompliant with home oxygen secondary to homelessness Hypertension currently normotensive Depression with increased depressive thoughts, cleared by psychiatry Diabetes Mellitus , uncontrolled with hyperglycemia and hypoglycemia Coronary artery disease History asthma/COPD History DVT/PE History peripheral neuropathy History TIA Medication noncompliance Chronic nicotine use GI prophylaxis DVT prophylaxis on eliquis No CPR/ Yes to intubation. Discharge disposition Patient is being discharged in a stable condition with guarded prognosis to home. Patient will follow-up with Dr. Mata Alvarez in the outpatient setting upon discharge. Patient is to follow-up with cardiology as scheduled. Total time taken is greater than 35 minutes. Hospital course This is a 67-year-old male who was recently admitted with atrial fibrillation along with increasing shortness of breath and difficulty in breathing. Patient was seen and evaluated by cardiology and is status post FLO cardioversion along with acute on chronic CHF exacerbation. Patient with multiple medical comorbidities and noncompliance with medications and follow-up. Patient currently has no primary care provider as he misses multiple appointments and does not show up. Patient reports he is homeless and social work following making multiple attempts at providing resources and currently not available to accept the patient. Patient will be discharged in guarded prognosis. Currently no reports of chest pain, shortness of breath, or palpitations. Patient is afebrile. No reports of nausea or vomiting and patient is tolerating diet. Patient will be discharged home today. Guarded prognosis as patient is high risk for multiple hospital readmissions and significant noncompliance with medication and follow-up Physical exam: Gen: This is a 67-year-old male who is awake, alert and oriented 3, well- developed, well-nourished HEENT: Head is atraumatic, normocephalic. Pupils equal, round. Sclerae is anicteric. NECK: Supple. No JVD. No lymphadenopathy. No thyromegaly. LUNGS: Clear to auscultation. No wheezes or rhonchi. No intercostal retractions. HEART: Regular rate and rhythm. No murmur. ABDOMEN: Soft. Bowel sounds are present. No masses. No tenderness. EXTREMITIES: No pedal edema. No calf tenderness. BKA noted NEUROLOGICAL: Patient is awake, alert and oriented x3. Cranial nerves 2 through 12 are grossly intact. Please refer to medication reconciliation sheet for a list of medications. The impression and plan of care has been dictated by Rashida Peterson, Nurse Practitioner as directed. MD Eva I have performed a history and examination and MDM of this patient, discussed the same with the dictator, and agree with the dictator's assessment and plan as written ,documented as a scribe. Based on total visit time, I have performed more than 50% of the visit. Patient Condition at Discharge: Fair Plan - Discharge Summary New Discharge Prescriptions: New HYDROcodone/APAP 5-325MG [[place] 5-325] 1 each PO Q6HR PRN #6 tab PRN Reason: Pain Rivaroxaban [Xarelto] 20 mg PO W/SUPPER 30 Days #30 tab Benzocaine/Menthol Lozeng [Cepacol lozenge] 1 each MUCOUS MEM Q4HR PRN lozenge PRN Reason: Sore Throat Amiodarone [Cordarone] 200 mg PO DAILY #30 tab Furosemide [Lasix] 40 mg PO DAILY 7 Days #7 tab Continue Omeprazole [PriLOSEC] 20 mg PO DIRECTED Melatonin [Melatonin ER] 10 mg PO HS #30 tab Pregabalin [Lyrica] 100 mg PO DIRECTED Temazepam [Restoril] 7.5 mg PO DIRECTED PRN PRN Reason: Insomnia Topiramate [Topamax] 25 mg PO DIRECTED Loratadine 10 mg PO DIRECTED #30 tab Metoprolol Succinate (ER) [Toprol XL] 50 mg PO DIRECTED #30 tab Bacitracin Zinc Oint 1 applic TOPICAL QID PRN PRN Reason: wounds Ipratropium-Albuterol Nebulize [Duoneb 0.5 mg-3 mg/3 ml Soln] 3 ml INHALATION DIRECTED PRN PRN Reason: Shortness Of Breath Or Wheezing Atorvastatin [Lipitor] 80 mg PO DIRECTED #30 tab Acetaminophen Tab [Tylenol] 650 mg PO Q6HR PRN #30 tab PRN Reason: Fever And/ Or Pain traMADol HCl [Ultram] 50 mg PO QID PRN 3 Days #12 tab PRN Reason: Pain/Discomfort Changed Pioglitazone [Actos] 30 mg PO DAILY 30 Days #30 tab Glimepiride [Amaryl] 4 mg PO DAILY 30 Days #30 tab Tamsulosin [Flomax] 0.4 mg PO DIRECTED 30 Days #30 cap Discontinued Aspirin 81 mg PO DAILY #30 tab lisinopriL [Zestril] 5 mg PO DIRECTED Amiodarone [Cordarone] 200 mg PO DIRECTED Warfarin [Coumadin] 3 mg PO DIRECTED Isosorbide Mononitrate ER [Imdur] 15 mg PO DIRECTED No Action HYDROcodone/APAP 5-325MG [[place] 5-325] 1 tab PO Q4HR PRN 3 Days #15 tab PRN Reason: Pain Discharge Medication List Omeprazole [PriLOSEC] 20 mg PO DIRECTED 08/15/19 [History] Melatonin [Melatonin ER] 10 mg PO HS #30 tab 06/08/22 [Rx] Bacitracin Zinc Oint 1 applic TOPICAL QID PRN 06/22/22 [History] Ipratropium-Albuterol Nebulize [Duoneb 0.5 mg-3 mg/3 ml Soln] 3 ml INHALATION DIRECTED PRN 06/22/22 [History] Pregabalin [Lyrica] 100 mg PO DIRECTED 06/22/22 [History] Temazepam [Restoril] 7.5 mg PO DIRECTED PRN 06/22/22 [History] Topiramate [Topamax] 25 mg PO DIRECTED 06/22/22 [History] Acetaminophen Tab [Tylenol] 650 mg PO Q6HR PRN #30 tab 07/07/22 [Rx] Amiodarone [Cordarone] 200 mg PO DAILY #30 tab 07/07/22 [Rx] Atorvastatin [Lipitor] 80 mg PO DIRECTED #30 tab 07/07/22 [Rx] Benzocaine/Menthol Lozeng [Cepacol lozenge] 1 each MUCOUS MEM Q4HR PRN lozenge 07/07/22 [Rx] Furosemide [Lasix] 40 mg PO DAILY 7 Days #7 tab 07/07/22 [Rx] Glimepiride [Amaryl] 4 mg PO DAILY 30 Days #30 tab 07/07/22 [Rx] HYDROcodone/APAP 5-325MG [[place] 5-325] 1 each PO Q6HR PRN #6 tab 07/07/22 [Rx] Loratadine 10 mg PO DIRECTED #30 tab 07/07/22 [Rx] Metoprolol Succinate (ER) [Toprol XL] 50 mg PO DIRECTED #30 tab 07/07/22 [Rx] Pioglitazone [Actos] 30 mg PO DAILY 30 Days #30 tab 07/07/22 [Rx] Rivaroxaban [Xarelto] 20 mg PO W/SUPPER 30 Days #30 tab 07/07/22 [Rx] Tamsulosin [Flomax] 0.4 mg PO DIRECTED 30 Days #30 cap 07/07/22 [Rx] traMADol HCl [Ultram] 50 mg PO QID PRN 3 Days #12 tab 07/07/22 [Rx] HYDROcodone/APAP 5-325MG [[place] 5-325] 1 tab PO Q4HR PRN 3 Days #15 tab 07/09/22 [Rx] Follow up Appointment(s)/Referral(s): Camelia Dozier MD [STAFF PHYSICIAN] - 1 Week (PLEASE CALL AND SCHEDULE APPOINMENT.) None,Stated [Primary Care Provider] - 1-2 days Joshua Heaton MD [STAFF PHYSICIAN] - 07/18/22 3:45 pm Patient Instructions/Handouts: Metoprolol (By mouth), Furosemide (By mouth), Acetaminophen (By mouth), Hydrocodone/Acetaminophen (By mouth), Loratadine (By mouth), Amiodarone (By mouth), Tramadol (By mouth), Glimepiride (By mouth), Atorvastatin (By mouth), Tamsulosin (By mouth), Pioglitazone (By mouth), Rivaroxaban (By mouth), Heart Failure (DC), A-fib (Atrial Fibrillation) (DC), Hypoglycemia in a Person with Diabetes (DC), Diabetic Hyperglycemia (DC) Activity/Diet/Wound Care/Special Instructions: [facility] Address:[address] [place] [address] [address] Inpatient "discharge to home" option for individual experiencing homelessness. Nurses provide patient monitoring and education Person-centered connection to vital documents, legal and housing resources through intensive case management. Activity Limited until follow-up Follow-up with primary care provider on discharge Follow-up with cardiology outpatient Continue taking medications as prescribed Discharge/Stand Alone Forms: Who Do I Call?, Community Resources, Outpatient Counseling Discharge Disposition: HOME SELF-CARE
--- NOTE | 2022-07-11 16:53 | CDI ---
Documentation Clarification Form Date: 07/11/2022 04:30:56 PM From: Rachael Earl Phone: Admit Date: 06/22/2022 05:17:00 PM Patient Name: Checo Quijano Visit Number: [id number] Discharge Date: 07/07/2022 05:08:00 PM ATTENTION: The Clinical Documentation Specialists (CDI) and [facility] Coding Staff appreciate your assistance in clarifying documentation. Please respond to the clarification below the line at the bottom and electronically sign. The CDI & [facility] Coding staff will review the response and follow-up if needed. Please note: Queries are made part of the Legal Health Record. If you have any questions, please contact the author of this message via ITS. Dr. Shadia Alvarez Your patient has diagnostic/radiology results: left lower lobe atelectasis or pneumonia. Please clarify if there is an additional diagnosis and/or clinical significance related to this result. History/Risk Factors: 67yo M, A Fib, ACSHF, ANDERSON d/t diuretics, Hyperkalemia, CAD, NICM, CHRF non-compliance w home O2, HTN, DMII w peripheral neuropathy, smoker, hyper/ hypoglycemia, MDD, Hx asthma/COPD, History DVT/PE, Hx TIA, Medication noncompliance Clinical indicators: X-ray Report: [id number] FINDINGS: The heart size is normal. The pulmonary vasculature is normal. Mild left lower lobe infiltrate appears to be present. Correlate for atelectasis and pneumonia. Follow-up is recommended. There is hyperinflation flattening the diaphragms compatible with COPD. Mild pulmonary edema Treatment: He is given incentive spirometer. Is there an additional diagnosis and/or clinical significance related to the above diagnostic/radiology result? [ ] Atelectasis [ ] Pneumonia [ ] Result is not clinically significant (no additional diagnosis) [ ] Other, please specify [ ] Unable to determine (Template Last Reviewed: August 2020) Unable to determine MTDD
== END 2022-07-07 17:08 | disposition home or self-care (01) | DRG 308 ==
LOC: EC 13:58 → 3SCARD 17:17 → 5NMEDONC 06-29 22:28
PROVIDERS: ADMIT Hospitalist; ATTEND Hospitalist
PROC: 5A2204Z Restoration of Cardiac Rhythm, Single (ICD-10-PCS; 2022-06-28)
PROC: B24BZZ4 Ultrasonography of Heart with Aorta, Transesophageal (ICD-10-PCS; principal; 2022-06-28 07:30)
DX: I48.19 Other persistent atrial fibrillation (principal); I50.23 Acute on chronic systolic (congestive) heart failure; N17.9 Acute kidney failure, unspecified; D68.62 Lupus anticoagulant syndrome; J96.11 Chronic respiratory failure with hypoxia; R45.851 Suicidal ideations; E78.5 Hyperlipidemia, unspecified; I42.8 Other cardiomyopathies; I48.92 Unspecified atrial flutter; E11.649 Type 2 diabetes mellitus with hypoglycemia without coma; I11.0 Hypertensive heart disease with heart failure; E11.42 Type 2 diabetes mellitus with diabetic polyneuropathy; E11.51 Type 2 diabetes mellitus with diabetic peripheral angiopathy without gangrene; Z99.81 Dependence on supplemental oxygen; Z89.612 Acquired absence of left leg above knee; E11.65 Type 2 diabetes mellitus with hyperglycemia; J44.9 Chronic obstructive pulmonary disease, unspecified; F32.9 Major depressive disorder, single episode, unspecified; I08.3 Combined rheumatic disorders of mitral, aortic and tricuspid valves; Z95.828 Presence of other vascular implants and grafts; I25.10 Atherosclerotic heart disease of native coronary artery without angina pectoris; G89.29 Other chronic pain; Z66 Do not resuscitate; F17.210 Nicotine dependence, cigarettes, uncomplicated; E87.5 Hyperkalemia; T41.5X6A Underdosing of therapeutic gases, initial encounter; T50.2X5A Adverse effect of carbonic-anhydrase inhibitors, benzothiadiazides and other diuretics, initial encounter; T50.916A Underdosing of multiple unspecified drugs, medicaments and biological substances, initial encounter; M79.89 Other specified soft tissue disorders; K21.9 Gastro-esophageal reflux disease without esophagitis; R07.89 Other chest pain; T45.516A Underdosing of anticoagulants, initial encounter; Z96.642 Presence of left artificial hip joint; Z63.5 Disruption of family by separation and divorce; Z79.84 Long term (current) use of oral hypoglycemic drugs; Z79.01 Long term (current) use of anticoagulants; Z79.899 Other long term (current) drug therapy; Z79.82 Long term (current) use of aspirin; Z88.1 Allergy status to other antibiotic agents; Z88.8 Allergy status to other drugs, medicaments and biological substances; Z86.711 Personal history of pulmonary embolism; Z86.73 Personal history of transient ischemic attack (TIA), and cerebral infarction without residual deficits; Z86.14 Personal history of Methicillin resistant Staphylococcus aureus infection; Z91.120 Patient's intentional underdosing of medication regimen due to financial hardship; Z59.00 Homelessness unspecified; Z86.718 Personal history of other venous thrombosis and embolism; Z99.3 Dependence on wheelchair; Z82.49 Family history of ischemic heart disease and other diseases of the circulatory system; Z91.199 Patient's noncompliance with other medical treatment and regimen due to unspecified reason; Z63.8 Other specified problems related to primary support group; Z98.61 Coronary angioplasty status
CPT/HCPCS: 36415; 71045; 71046; 80048; 80053; 80061; 83036; 83735; 83880; 84145; 84439; 84443; 84484; 85025; 85027; 85610; 85730; 87502; 87634; 87635; 92960; 93005; 93312; 93320; 93325; 94640; 94760; 96365; 96366; 96375; 96376; 99291

== ENCOUNTER 2022-07-09 04:18 | Emergency (ER) | payer MEDICARE ==
[2022-07-09 04:24] VITALS: RESP 18; TEMP 97.8
[2022-07-09] MEDS ORDERED: HYDROcodone/APAP 5-325MG 1 EACH TAB PO STA ×2 (04:52→07:38)
[2022-07-09 05:46] LABS: Basophils % (A) 0 %; Eosinophils # (A) 0.1 k/uL (0-0.7); Eosinophils % (A) 1 %; HCT 31.5 % (39.0-53.0); HGB 10.4 gm/dL (13.0-17.5); Hypochromasia Marked; Lymphocytes # (A) 1.1 k/uL (1.0-4.8); Lymphocytes % (A) 12 %; MCH 28.3 pg (25.0-35.0); MCV 85.6 fL (80.0-100.0); Mean Platelet Volume 8.9; Monocytes # (A) 0.6 k/uL (0-1.0); Monocytes % (A) 7 %; Neutrophils # (A) 6.8 k/uL (1.3-7.7); Neutrophils % (A) 77 %; Platelet Count 224 k/uL (150-450); RBC 3.69 m/uL (4.30-5.90); RDW 15.7 % (11.5-15.5); WBC 8.8 k/uL (3.8-10.6)
[2022-07-09 05:55] LABS: Albumin 3.2 g/dL (3.5-5.0); Calcium 8.3 mg/dL (8.4-10.2); Potassium 4.3 mmol/L (3.5-5.1); Total Bilirubin 0.4 mg/dL (0.2-1.3); Total Protein 6.5 g/dL (6.3-8.2)
[2022-07-09 06:01] LABS: INR 1.5 (<1.2); Partial Thromboplastin Time 32.7 sec (22.0-30.0); Prothrombin Time 15.3 sec (9.0-12.0)
--- NOTE | 2022-07-09 06:01 | XR ---
EXAMINATION TYPE: XR chest 2V DATE OF EXAM: 07/09/2022 COMPARISON: 07/04/2022 HISTORY: Dysrhythmia TECHNIQUE: FINDINGS: There is mild coarsening of interstitial markings. No heart failure. Heart size is normal. No pleural effusion. Bony thorax is intact. IMPRESSION: There is some mild pulmonary fibrosis. No heart failure. No significant change.
--- NOTE | 2022-07-09 06:21 | ED ---
General Adult HPI - General Chief complaint: Arrhythmia/Palpitations Stated complaint: poss A fib Time Seen by Provider: 07/09/22 04:40 Source: patient Mode of arrival: ambulatory Limitations: no limitations - History of Present Illness Initial comments: This patient is 67-year-old man with history of previous atrial fibrillation who presents to have evaluation after he had some palpitations and was concerned he had gone back into atrial fibrillation. The patient not having any chest pain. No diaphoresis or dyspnea. The symptoms have lessened. -: hour(s) Location: chest Severity scale (1-10): 0 Consistency: now resolved Improves with: none Worsens with: none Associated Symptoms: denies other symptoms - Related Data Home Medications Medication Instructions Recorded Confirmed Omeprazole [PriLOSEC] 20 mg PO DIRECTED 08/15/19 06/22/22 Bacitracin Zinc Oint 1 applic TOPICAL QID PRN 06/22/22 06/22/22 Ipratropium-Albuterol Nebulize 3 ml INHALATION DIRECTED PRN 06/22/22 06/22/22 [Duoneb 0.5 mg-3 mg/3 ml Soln] Pregabalin [Lyrica] 100 mg PO DIRECTED 06/22/22 06/22/22 Temazepam [Restoril] 7.5 mg PO DIRECTED PRN 06/22/22 06/22/22 Topiramate [Topamax] 25 mg PO DIRECTED 06/22/22 06/22/22 Previous Rx's Medication Instructions Recorded Melatonin [Melatonin ER] 10 mg PO HS #30 tab 06/08/22 Acetaminophen Tab [Tylenol] 650 mg PO Q6HR PRN #30 tab 07/07/22 Amiodarone [Cordarone] 200 mg PO DAILY #30 tab 07/07/22 Atorvastatin [Lipitor] 80 mg PO DIRECTED #30 tab 07/07/22 Benzocaine/Menthol Lozeng [Cepacol 1 each MUCOUS MEM Q4HR PRN lozenge 07/07/22 lozenge] Furosemide [Lasix] 40 mg PO DAILY 7 Days #7 tab 07/07/22 Glimepiride [Amaryl] 4 mg PO DAILY 30 Days #30 tab 07/07/22 HYDROcodone/APAP 5-325MG [[place] 1 each PO Q6HR PRN #6 tab 07/07/22 5-325] Loratadine 10 mg PO DIRECTED #30 tab 07/07/22 Metoprolol Succinate (ER) [Toprol 50 mg PO DIRECTED #30 tab 07/07/22 XL] Pioglitazone [Actos] 30 mg PO DAILY 30 Days #30 tab 07/07/22 Rivaroxaban [Xarelto] 20 mg PO W/SUPPER 30 Days #30 tab 07/07/22 Tamsulosin [Flomax] 0.4 mg PO DIRECTED 30 Days #30 07/07/22 cap traMADol HCl [Ultram] 50 mg PO QID PRN 3 Days #12 tab 07/07/22 HYDROcodone/APAP 5-325MG [[place] 1 tab PO Q4HR PRN 3 Days #15 tab 07/09/22 5-325] Allergies Allergy/AdvReac Type Severity Reaction Status Date / Time baclofen Allergy Unknown Verified 07/09/22 04:24 apixaban [From Eliquis] AdvReac "felt Verified 07/09/22 04:24 funny" Review of Systems ROS Statement: Those systems with pertinent positive or pertinent negative responses have been documented in the HPI. ROS Other: All systems not noted in ROS Statement are negative. Constitutional: Denies: fever, chills Respiratory: Denies: cough, dyspnea Cardiovascular: Reports: palpitations Gastrointestinal: Denies: abdominal pain, vomiting, diarrhea Genitourinary: Denies: dysuria, hematuria Musculoskeletal: Denies: back pain Skin: Denies: rash Neurological: Denies: headache, weakness, numbness Psychiatric: Reports: anxiety Past Medical History Past Medical History: Atrial Fibrillation, Asthma, COPD, CVA/TIA, Diabetes Mellitus, Deep Vein Thrombosis (DVT), GERD/Reflux, Hyperlipidemia, Hypertension, Neurologic Disorder, Osteoarthritis (OA), Pneumonia, Pulmonary Embolus (PE), Skin Disorder, Vascular Disorder Additional Past Medical History / Comment(s): Pt admitted to [facility] on 11/20/20 with hyperkalemia, hyperglycemia, uncontrolled diabetes. Other hx: Lupus anticoagulant, DVTs bilateral legs, PEs bilateral lungs, pt has zina filter, L AKA/wheelchair bound, NIDDM type II, neuropathy bilateral hands, wound care patient for buttock wound, now healed, TIAs, pneumothorax, past migraines, chronic low back pain, R leg edema at times, varicosities. History of Any Multi-Drug Resistant Organisms: MRSA Date of last positivie culture/infection: 06/04/21 MDRO Source:: Right Leg MRSA Past Surgical History: Adenoidectomy, Appendectomy, Tonsillectomy Additional Past Surgical History / Comment(s): 1980s Zina filter, stents in vessels "in pelvic area", total L hip arthroplasty, vein strippings, colonoscopy. left leg amputation Past Anesthesia/Blood Transfusion Reactions: No Reported Reaction Additional Past Anesthesia/Blood Transfusion Reaction / Comment(s): Pt has received blood in past without reaction. Past Psychological History: No Psychological Hx Reported Smoking Status: Current every day smoker Past Alcohol Use History: None Reported Past Drug Use History: Marijuana - Past Family History Mother Family Medical History: Coronary Artery Disease (CAD), Myocardial Infarction ([place]), Vascular Disorder Additional Family Medical History / Comment(s): heart disease, peripheral vascular disease. Father Family Medical History: Diabetes Mellitus, Renal Disease General Exam Limitations: no limitations General appearance: alert, in no apparent distress Head exam: Present: atraumatic, normocephalic Eye exam: Present: normal appearance. Absent: scleral icterus, conjunctival in jection Neck exam: Present: normal inspection Respiratory exam: Present: normal lung sounds bilaterally. Absent: respiratory distress, wheezes, rales, rhonchi, stridor Cardiovascular Exam: Present: regular rate, normal rhythm, normal heart sounds. Absent: systolic murmur, diastolic murmur, rubs, gallop GI/Abdominal exam: Present: soft. Absent: distended, tenderness, guarding, rebound, rigid, mass Extremities exam: Present: normal inspection, normal capillary refill. Absent: pedal edema, calf tenderness Back exam: Present: normal inspection. Absent: CVA tenderness (R), CVA tenderness (L) Neurological exam: Present: alert Skin exam: Present: warm, dry, intact, normal color. Absent: rash Course Vital Signs 07/09/22 07/09/22 04:22 07:19 Temperature 97.8 F Pulse Rate 69 68 Respiratory 18 18 Rate Blood Pressure 127/71 141/75 O2 Sat by Pulse 99 98 Oximetry EKG Findings - EKG Results: EKG: interpreted by ERMD, sinus rhythm, normal axis, normal ST/T - Blocks, [place], Hypertrophy, ST Abn: AV and intraventricular conduction: 1 AV block, right bundle branch block (fixed/intermittent, complete/incomplete) Medical Decision Making - Medical Decision Making This patient is 67-year-old man here with concerns that he may have gone back in atrial fibrillation. Patient states that most of the symptoms had resolved prior to arrival here. Patient's ECG does show sinus rhythm and the lab workup large unremarkable. 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 Discussed appropriate further care including return parameters and follow-up. - Lab Data Result diagrams: 07/09/22 05:30 07/09/22 05:30 Lab Results 07/09/22 07/09/22 07/09/22 Range/Units 05:30 05:30 05:30 WBC 8.8 (3.8-10.6) k/uL RBC 3.69 L (4.30-5.90) m/uL Hgb 10.4 L (13.0-17.5) gm/dL Hct 31.5 L (39.0-53.0) % MCV 85.6 (80.0-100.0) fL MCH 28.3 (25.0-35.0) pg MCHC 33.0 (31.0-37.0) g/dL RDW 15.7 H (11.5-15.5) % Plt Count 224 (150-450) k/uL MPV 8.9 Neutrophils % 77 % Lymphocytes % 12 % Monocytes % 7 % Eosinophils % 1 % Basophils % 0 % Neutrophils # 6.8 (1.3-7.7) k/uL Lymphocytes # 1.1 (1.0-4.8) k/uL Monocytes # 0.6 (0-1.0) k/uL Eosinophils # 0.1 (0-0.7) k/uL Basophils # 0.0 (0-0.2) k/uL Hypochromasia Marked PT 15.3 H (9.0-12.0) sec INR 1.5 H (<1.2) APTT 32.7 H (22.0-30.0) sec Sodium 139 (137-145) mmol/L Potassium 4.3 (3.5-5.1) mmol/L Chloride 110 H (98-107) mmol/L Carbon Dioxide 26 (22-30) mmol/L Anion Gap 3 mmol/L BUN 24 H (9-20) mg/dL Creatinine 1.28 H (0.66-1.25) mg/dL Est GFR (CKD-EPI)AfAm 68 (>60 ml/min/1.73 sqM) Est GFR (CKD-EPI)NonAf 58 (>60 ml/min/1.73 sqM) Glucose 116 H (74-99) mg/dL Calcium 8.3 L (8.4-10.2) mg/dL Magnesium 2.0 (1.6-2.3) mg/dL Total Bilirubin 0.4 (0.2-1.3) mg/dL AST 16 L (17-59) U/L ALT 14 (4-49) U/L Alkaline Phosphatase 100 (38-126) U/L Troponin I (0.000-0.034) ng/mL Total Protein 6.5 (6.3-8.2) g/dL Albumin 3.2 L (3.5-5.0) g/dL 07/09/22 Range/Units 05:30 WBC (3.8-10.6) k/uL RBC (4.30-5.90) m/uL Hgb (13.0-17.5) gm/dL Hct (39.0-53.0) % MCV (80.0-100.0) fL MCH (25.0-35.0) pg MCHC (31.0-37.0) g/dL RDW (11.5-15.5) % Plt Count (150-450) k/uL MPV Neutrophils % % Lymphocytes % % Monocytes % % Eosinophils % % Basophils % % Neutrophils # (1.3-7.7) k/uL Lymphocytes # (1.0-4.8) k/uL Monocytes # (0-1.0) k/uL Eosinophils # (0-0.7) k/uL Basophils # (0-0.2) k/uL Hypochromasia PT (9.0-12.0) sec INR (<1.2) APTT (22.0-30.0) sec Sodium (137-145) mmol/L Potassium (3.5-5.1) mmol/L Chloride (98-107) mmol/L Carbon Dioxide (22-30) mmol/L Anion Gap mmol/L BUN (9-20) mg/dL Creatinine (0.66-1.25) mg/dL Est GFR (CKD-EPI)AfAm (>60 ml/min/1.73 sqM) Est GFR (CKD-EPI)NonAf (>60 ml/min/1.73 sqM) Glucose (74-99) mg/dL Calcium (8.4-10.2) mg/dL Magnesium (1.6-2.3) mg/dL Total Bilirubin (0.2-1.3) mg/dL AST (17-59) U/L ALT (4-49) U/L Alkaline Phosphatase (38-126) U/L Troponin I 0.029 (0.000-0.034) ng/mL Total Protein (6.3-8.2) g/dL Albumin (3.5-5.0) g/dL Disposition Clinical Impression: Palpitations Disposition: HOME SELF-CARE Condition: Good Instructions (If sedation given, give patient instructions): Heart Palpitations (ED) Prescriptions: HYDROcodone/APAP 5-325MG [[place] 5-325] 1 tab PO Q4HR PRN 3 Days #15 tab PRN Reason: Pain Is patient prescribed a controlled substance at d/c from ED?: Yes Referrals: None,Stated [Primary Care Provider] - 1-2 days
[2022-07-09] MEDS ORDERED: AMOXIC-POT CLAV 875-125MG 1 EACH TAB PEG/G-TUBE STA (06:28)
[2022-07-09] MEDS: MORPHINE SULFATE 4 MG/ML SYRINGE IV STA ×2 (07:19→07:26)
[2022-07-09 07:21] VITALS: BP 141/75; PULSE 68
== END 2022-07-09 08:24 | disposition home or self-care (01) ==
LOC: EC 04:18
DX: R00.2 Palpitations (principal); E11.9 Type 2 diabetes mellitus without complications; I10 Essential (primary) hypertension; J44.9 Chronic obstructive pulmonary disease, unspecified; K21.9 Gastro-esophageal reflux disease without esophagitis; I48.91 Unspecified atrial fibrillation; F17.200 Nicotine dependence, unspecified, uncomplicated; F12.90 Cannabis use, unspecified, uncomplicated; Z79.899 Other long term (current) drug therapy; Z88.8 Allergy status to other drugs, medicaments and biological substances
CPT/HCPCS: 36415; 71046; 80053; 83735; 84484; 85025; 85610; 85730; 93005; 99285

== ENCOUNTER 2022-09-18 11:39 | Observation (INO) | payer MEDICARE, OTHER ==
--- NOTE | 2022-09-18 11:50 | ED ---
General Adult HPI - General Stated complaint: rt leg wound/edema Time Seen by Provider: 09/18/22 11:40 Source: patient, EMS, RN notes reviewed, old records reviewed - History of Present Illness Initial comments: This is a 67-year-old male with a past medical history significant for diabetes and hypertension as well as congestive heart failure. Patient states he was released from the hospital on after having been in the ICU in the hospital for a total of about 2 months. Patient states she was here for low heart rate congestive heart failure. Patient comes in today complaining of leg pain on the right. Patient states the swelling is increased since he left the pain is gotten worse. Patient states he does have difficulty breathing Patient has a AKA on the left. Patient denies any chest pain. Patient denies any palpitations. Patient denies any recent fever chills patient states he is here because his leg hurts and he thinks he is not on enough Lasix. - Related Data Home Medications Medication Instructions Recorded Confirmed Topiramate [Topamax] 25 mg PO DAILY 06/22/22 09/18/22 Atorvastatin [Lipitor] 80 mg PO DAILY 08/27/22 09/18/22 Dabigatran [Pradaxa] 150 mg PO BID 08/27/22 09/18/22 Loratadine 10 mg PO DAILY 08/27/22 09/18/22 Multivit-Min/FA/Lycopen/Lutein 1 tab PO DAILY 08/27/22 09/18/22 [Centrum Silver Tablet] Potassium Chloride ER [K-Dur 10] 10 meq PO DAILY 08/27/22 09/18/22 Sodium Chloride [[place]] 1 spr EA NOSTRIL BID 08/27/22 09/18/22 HYDROcodone/APAP 7.5-325MG [[place] 1 tab PO DIRECTED PRN 09/18/22 09/18/22 7.5-325] Midodrine [ProAmatine] 10 mg PO AC-TID 09/18/22 09/18/22 Pregabalin [Lyrica] 300 mg PO DIRECTED 09/18/22 09/18/22 Previous Rx's Medication Instructions Recorded Glimepiride [Amaryl] 4 mg PO DAILY 30 Days #30 tab 07/07/22 Pioglitazone [Actos] 30 mg PO DAILY 30 Days #30 tab 07/07/22 Acetaminophen Tab [Tylenol] 650 mg PO Q4HR PRN tab 09/15/22 Albuterol Inhaler [Ventolin Hfa 2 puff INHALATION RT-QID 30 Days 09/15/22 Inhaler] #1 each Budesonide-Formot 160-4.5 Mcg 2 puff INHALATION RT-BID 30 Days 09/15/22 [Symbicort 160-4.5 Mcg Inhaler] #1 each Furosemide [Lasix] 40 mg PO BID@0900,1600 90 Days 09/15/22 #180 tab Insulin Detemir (Levemir) [Levemir] 15 unit SQ HS 100 Days #100 each 09/15/22 Metoprolol Succinate (ER) [Toprol 25 mg PO DAILY 90 Days #90 tab 09/15/22 XL] Ranolazine [Ranexa] 500 mg PO Q12HR 30 Days #60 tab 09/15/22 Tamsulosin [Flomax] 0.8 mg PO PC-SUPPER 90 Days #90 cap 09/15/22 Tiotropium 2.5 Mcg/Puff [Spiriva 2 puff INHALATION RT-DAILY 30 Days 09/15/22 Respimat 2.5 Mcg] #1 each hydrOXYzine pamoate [Vistaril] 25 mg PO Q8HR PRN 30 Days #90 cap 09/15/22 methIMAzole [Tapazole] 7.5 mg PO BID 30 Days #60 tab 09/15/22 predniSONE 10 mg PO DAILY 30 Days #30 tab 09/15/22 traZODone HCL [Desyrel] 100 mg PO HS 30 Days #30 tab 09/15/22 Allergies Allergy/AdvReac Type Severity Reaction Status Date / Time baclofen Allergy Unknown Verified 09/18/22 12:23 apixaban [From Eliquis] AdvReac "felt Verified 09/18/22 12:23 funny" Review of Systems ROS Statement: Those systems with pertinent positive or pertinent negative responses have been documented in the HPI. ROS Other: All systems not noted in ROS Statement are negative. Past Medical History Past Medical History: Atrial Fibrillation, Asthma, COPD, CVA/TIA, Diabetes Mellitus, Deep Vein Thrombosis (DVT), GERD/Reflux, Hyperlipidemia, Hypertension, Neurologic Disorder, Osteoarthritis (OA), Pneumonia, Pulmonary Embolus (PE), Skin Disorder, Vascular Disorder Additional Past Medical History / Comment(s): Pt admitted to [facility] on 11/20/20 with hyperkalemia, hyperglycemia, uncontrolled diabetes. Other hx: Lupus anticoagulant, DVTs bilateral legs, PEs bilateral lungs in , pt has zina filter, L AKA/wheelchair bound, NIDDM type II, neuropathy bilateral hands, wound care patient for buttock wound, now healed, TIAs, pneumothorax, past migraines, chronic low back pain, R leg edema at times, varicosities. History of Any Multi-Drug Resistant Organisms: MRSA Date of last positivie culture/infection: 06/04/21 MDRO Source:: Right Leg MRSA Past Surgical History: Adenoidectomy, Appendectomy, Tonsillectomy Additional Past Surgical History / Comment(s): Zina filter, stents in vessels "in pelvic area", total L hip arthroplasty, vein strippings, colonoscopy. left leg amputation Past Anesthesia/Blood Transfusion Reactions: No Reported Reaction Additional Past Anesthesia/Blood Transfusion Reaction / Comment(s): Pt has received blood in past without reaction. Past Psychological History: No Psychological Hx Reported Additional Psychological History / Comment(s): Pt currently living in hotels, He has a glucometer. He has a nebulizer. Pt has prosthetic, states it is being worked on. Smoking Status: Current every day smoker Past Alcohol Use History: None Reported Additional Past Alcohol Use History / Comment(s): Pt startes smoking in 1969 and is a ppd smoker. Past Drug Use History: Marijuana - Past Family History Mother Family Medical History: Coronary Artery Disease (CAD), Myocardial Infarction ([place]), Vascular Disorder Additional Family Medical History / Comment(s): heart disease, peripheral vascular disease. Father Family Medical History: Diabetes Mellitus, Renal Disease General Exam - General Exam Comments Initial Comments: GENERAL: Patient is well-developed and well-nourished. Patient is nontoxic and well- hydrated and is in no acute distress. ENT: Neck is soft and supple. No significant lymphadenopathy is noted. Oropharynx is clear. Moist mucous membranes. Neck has full range of motion without eliciting any pain. EYES: The sclera were anicteric and conjunctiva were pink and moist. Extraocular movements were intact and pupils were equal round and reactive to light. Eyelids were unremarkable. PULMONARY: Unlabored respirations. Good breath sounds bilaterally. No audible rales rhonchi or wheezing was noted. CARDIOVASCULAR: There is a regular rate and rhythm without any murmurs gallops or rubs. ABDOMEN: Soft and nontender with normal bowel sounds. SKIN: Skin is clear with no lesions or rashes and otherwise unremarkable. NEUROLOGIC: Patient is alert and oriented x3. Cranial nerves II through XII are grossly intact. Motor and sensory are also intact. Normal speech, volume and content. Symmetrical smile. MUSCULOSKELETAL: Patient has 2+ edema and tenderness to the right lower leg. Patient's left leg AKA LYMPHATICS: No significant lymphadenopathy is noted PSYCHIATRIC: Normal psychiatric evaluation. Course Vital Signs 09/18/22 09/18/22 09/18/22 11:45 11:49 13:00 Temperature 97.7 F Pulse Rate 99 101 H 89 Respiratory 20 20 18 Rate Blood Pressure 124/80 127/97 O2 Sat by Pulse 100 97 14 L Oximetry 09/18/22 14:15 Temperature Pulse Rate 92 Respiratory 16 Rate Blood Pressure 138/78 O2 Sat by Pulse 100 Oximetry Medical Decision Making - Medical Decision Making EKG as interpreted by myself shows atrial fibrillation with a rate of 93 bpm QRS is 173 QT interval 424 QTC is 475. Patient's EKG shows a right bundle branch block. There is no ST segment elevation. Was pt. sent in by a medical professional or institution (, PA, METAL SMELTER, urgent care, hospital, or intermediate...) When possible be specific @ -No Did you speak to anyone other than the patient for history (EMS, parent, family, police, friend...)? What history was obtained from this source @ -No Did you review nursing and triage notes (agree or disagree)? Why? @ -I reviewed and agree with nursing and triage notes Were old charts reviewed (outside hosp., previous admission, EMS record, old EKG, old radiological studies, urgent care reports/EKG's, intermediate records)? Report findings @ -Reviewed prior labs as well as prior radiological studies. Differential Diagnosis (chest pain, altered mental status, abdominal pain women, abdominal pain men, vaginal bleeding, weakness, fever, dyspnea, syncope, headache, dizziness, GI bleed, back pain, seizure, CVA, palpatations, mental health, musculoskeletal)? @ -Differential Dyspnea: Coronary syndrome, arrhythmia, tamponade, asthma, COPD, pulmonary embolism, pneumonia, pneumothorax, pulmonary effusion, anaphylaxis, diabetic ketoacidosis, flailed chest, pulmonary contusion, diaphragmatic rupture, anemia, neuromuscular, this is not meant to be an all-inclusive list. EKG interpreted by me (3pts min.). @ -As above X-rays interpreted by me (1pt min.). @ -Chest x-ray was interpreted by myself shows mild pulmonary edema CT interpreted by me (1pt min.). @ -None done U/S interpreted by me (1pt. min.). @ -None done What testing was considered but not performed or refused? (CT, X-rays, U/S, labs)? Why? @ -None What meds were considered but not given or refused? Why? @ -None Did you discuss the management of the patient with other professionals (professionals i.e. , PA, METAL SMELTER, lab, RT, psych nurse, social problems specialist, forest nursery supervisor, teacher, quarantine officer, protective services case worker)? Give summary @ -I spoke with Dr. Bhakta he did agree to admit the patient admitted the patient wrote admitting orders Was smoking cessation discussed for >3mins.? @ -No Was critical care preformed (if so, how long)? @ -No Were there social determinants of health that impacted care today? How? (Homeles sness, low income, unemployed, alcoholism, drug addiction, transportation, low edu. Level, literacy, decrease access to med. care, retirement, rehab)? @ -Patient is homeless and he has no transportation on a consistent basis he has yet to poultry picker any of his medications from his prior to discharge Was there de-escalation of care discussed even if they declined (Discuss DNR or withdrawal of care, Hospice)? DNR status @ -No What co-morbidities impacted this encounter? (DM, HTN, Smoking, COPD, CAD, Cancer, CVA, ARF, Chemo, Hep., AIDS, mental health diagnosis, sleep apnea, morbid obesity)? @ -Diabetes hypertension and coronary disease Was patient admitted / discharged? Hospital course, mention meds given and route, prescriptions, significant lab abnormalities, going to OR and other pert inent info. @ -Patient had lab work, did show an elevated BNP and chest x-ray coronary for vascular congestion I spoke with Dr. Bhakta he agreed to admit the patient to the patient consult to cardiology as Dr. Bhakta requested. Patient had an ultrasound of the right leg did not show any DVT Undiagnosed new problem with uncertain prognosis? @ -No Drug Therapy requiring intensive monitoring for toxicity (Heparin, Nitro, Insulin, Cardizem)? @ -No Were any procedures done? @ -No Diagnosis/symptom? @ -Pulmonary edema Acute, or Chronic, or Acute on Chronic? @ -Acute on chronic Uncomplicated (without systemic symptoms) or Complicated (systemic symptoms)? @ -Complicated Side effects of treatment? @ -No Exacerbation, Progression, or Severe Exacerbation? @ -No Poses a threat to life or bodily function? How? (Chest pain, [place], [place], pneumonia, PE, COPD, DKA, ARF, appy, cholecystitis, CVA, Diverticulitis, Homicidal, Suicidal, threat to staff... and all critical care pts) @ -Yes this could lead to hypoxia was complete and organ dysfunction Diagnosis/symptom? @ -Leg pain Acute, or Chronic, or Acute on Chronic? @ -Acute on chronic Uncomplicated (without systemic symptoms) or Complicated (systemic symptoms)? @ -Uncomplicated Side effects of treatment? @ -none Exacerbation, Progression, or Severe Exacerbation] @ -no Poses a threat to life or bodily function? @ -no - Lab Data Result diagrams: 09/18/22 11:58 09/18/22 11:58 Lab Results 09/18/22 09/18/22 09/18/22 Range/Units 11:58 11:58 11:58 WBC 7.8 (3.8-10.6) k/uL RBC 3.73 L (4.30-5.90) m/uL Hgb 9.8 L (13.0-17.5) gm/dL Hct 31.6 L (39.0-53.0) % MCV 84.8 (80.0-100.0) fL MCH 26.4 (25.0-35.0) pg MCHC 31.1 (31.0-37.0) g/dL RDW 20.8 H (11.5-15.5) % Plt Count 207 (150-450) k/uL MPV 8.5 Neutrophils % 72 % Lymphocytes % 18 % Monocytes % 6 % Eosinophils % 2 % Basophils % 1 % Neutrophils # 5.6 (1.3-7.7) k/uL Lymphocytes # 1.4 (1.0-4.8) k/uL Monocytes # 0.5 (0-1.0) k/uL Eosinophils # 0.1 (0-0.7) k/uL Basophils # 0.0 (0-0.2) k/uL Hypochromasia Slight Anisocytosis Moderate Microcytosis Slight PT 12.6 H (9.0-12.0) sec INR 1.2 H (<1.2) APTT 32.4 H (22.0-30.0) sec Sodium 139 (137-145) mmol/L Potassium 4.8 (3.5-5.1) mmol/L Chloride 107 (98-107) mmol/L Carbon Dioxide 28 (22-30) mmol/L Anion Gap 4 mmol/L BUN 33 H (9-20) mg/dL Creatinine 1.10 (0.66-1.25) mg/dL Est GFR (CKD-EPI)AfAm 81 (>60 ml/min/1.73 sqM) Est GFR (CKD-EPI)NonAf 70 (>60 ml/min/1.73 sqM) Glucose 172 H (74-99) mg/dL Plasma Lactic Acid Dennis (0.7-2.0) mmol/L Calcium 8.1 L (8.4-10.2) mg/dL Magnesium 2.3 (1.6-2.3) mg/dL Total Bilirubin 0.4 (0.2-1.3) mg/dL AST 18 (17-59) U/L ALT 20 (4-49) U/L Alkaline Phosphatase 79 (38-126) U/L Troponin I (0.000-0.034) ng/mL NT-Pro-B Natriuret Pep pg/mL Total Protein 5.9 L (6.3-8.2) g/dL Albumin 3.0 L (3.5-5.0) g/dL 09/18/22 09/18/22 09/18/22 Range/Units 11:58 11:58 11:58 WBC (3.8-10.6) k/uL RBC (4.30-5.90) m/uL Hgb (13.0-17.5) gm/dL Hct (39.0-53.0) % MCV (80.0-100.0) fL MCH (25.0-35.0) pg MCHC (31.0-37.0) g/dL RDW (11.5-15.5) % Plt Count (150-450) k/uL MPV Neutrophils % % Lymphocytes % % Monocytes % % Eosinophils % % Basophils % % Neutrophils # (1.3-7.7) k/uL Lymphocytes # (1.0-4.8) k/uL Monocytes # (0-1.0) k/uL Eosinophils # (0-0.7) k/uL Basophils # (0-0.2) k/uL Hypochromasia Anisocytosis Microcytosis PT (9.0-12.0) sec INR (<1.2) APTT (22.0-30.0) sec Sodium (137-145) mmol/L Potassium (3.5-5.1) mmol/L Chloride (98-107) mmol/L Carbon Dioxide (22-30) mmol/L Anion Gap mmol/L BUN (9-20) mg/dL Creatinine (0.66-1.25) mg/dL Est GFR (CKD-EPI)AfAm (>60 ml/min/1.73 sqM) Est GFR (CKD-EPI)NonAf (>60 ml/min/1.73 sqM) Glucose (74-99) mg/dL Plasma Lactic Acid Dennis 0.9 (0.7-2.0) mmol/L Calcium (8.4-10.2) mg/dL Magnesium (1.6-2.3) mg/dL Total Bilirubin (0.2-1.3) mg/dL AST (17-59) U/L ALT (4-49) U/L Alkaline Phosphatase (38-126) U/L Troponin I <0.012 (0.000-0.034) ng/mL NT-Pro-B Natriuret Pep 5050 pg/mL Total Protein (6.3-8.2) g/dL Albumin (3.5-5.0) g/dL Disposition Clinical Impression: Pulmonary edema, Leg pain Disposition: ADMITTED IP TO THIS HOSP Referrals: Quintin Bhakta MD [Primary Care Provider] - 1-2 days Time of Disposition: 14:15
[2022-09-18 12:08] LABS: Anisocytosis Moderate; Basophils % (A) 1 %; Eosinophils # (A) 0.1 k/uL (0-0.7); Eosinophils % (A) 2 %; HCT 31.6 % (39.0-53.0); HGB 9.8 gm/dL (13.0-17.5); Hypochromasia Slight; Lymphocytes # (A) 1.4 k/uL (1.0-4.8); Lymphocytes % (A) 18 %; MCH 26.4 pg (25.0-35.0); MCHC 31.1 g/dL (31.0-37.0); MCV 84.8 fL (80.0-100.0); Mean Platelet Volume 8.5; Microcytosis Slight; Monocytes # (A) 0.5 k/uL (0-1.0); Monocytes % (A) 6 %; Neutrophils # (A) 5.6 k/uL (1.3-7.7); Neutrophils % (A) 72 %; Platelet Count 207 k/uL (150-450); RBC 3.73 m/uL (4.30-5.90); RDW 20.8 % (11.5-15.5); WBC 7.8 k/uL (3.8-10.6)
[2022-09-18 12:17] LABS: INR 1.2 (<1.2); Partial Thromboplastin Time 32.4 sec (22.0-30.0); Prothrombin Time 12.6 sec (9.0-12.0)
--- NOTE | 2022-09-18 12:20 | XR ---
EXAMINATION TYPE: XR chest 2V DATE OF EXAM: 09/18/2022 12:13 PM COMPARISON: Chest radiographs from 09/08/2022 TECHNIQUE: XR chest 2V Frontal and lateral views of the chest. CLINICAL INDICATION:Male, 67 years old with history of difficulty breathing; FINDINGS: Lungs/Pleura: There is no evidence of pleural effusion, focal consolidation, or pneumothorax. Pulmonary vascularity: Pulmonary vascular congestion. Heart/mediastinum: Cardiomediastinal silhouette is enlarged and stable. Musculoskeletal: No acute osseous pathology. IMPRESSION: Cardiomegaly and mild pulmonary vascular congestion. Correlate with BNP for congestive heart failure.
[2022-09-18 12:27] LABS: Calcium 8.1 mg/dL (8.4-10.2); Magnesium 2.3 mg/dL (1.6-2.3); Potassium 4.8 mmol/L (3.5-5.1); Total Bilirubin 0.4 mg/dL (0.2-1.3); Total Protein 5.9 g/dL (6.3-8.2)
--- NOTE | 2022-09-18 14:22 | US ---
EXAMINATION TYPE: US venous doppler duplex LE RT DATE OF EXAM: 09/18/2022 1:57 PM COMPARISON: US lower extremity 06/24/2022 CLINICAL HISTORY: Leg swelling and tenderness. Patient disoriented - unable to obtain history SIDE PERFORMED: Right TECHNIQUE: The lower extremity deep venous system is examined utilizing real time linear array sonog andrea with graded compression, doppler sonography and color-flow sonography. VESSELS IMAGED: Common Femoral Vein Deep Femoral Vein Greater Saphenous Vein * Femoral Vein Popliteal Vein Small Saphenous Vein * Proximal Calf Veins (* superficial vessels) Right Leg: Visualized portions appear negative for DVT, limited evaluation of popliteal vein due to swelling and edema. Diffuse subcutaneous edema is seen in the right popliteal fossa without evidence for defined fluid collection. IMPRESSION: Grayscale, color doppler, spectral doppler imaging performed of the deep veins of the lo wer extremities. There is normal flow, compressibility, vascular waveforms. No evidence for right l ower extremity deep vein thrombosis as visualized.
[2022-09-18] MEDS: FUROSEMIDE 10 MG/ML 4 ML VIAL IV SCH (15:14)
[2022-09-18] MEDS: NITROGLYCERIN OINT 1 INCH/GM PACKET TOPICAL SCH ×2 (17:07→21:30)
[2022-09-18] MEDS: HYDROcodone/APAP 7.5-325MG 1 EACH TAB PO PRN (17:10)
[2022-09-18 17:12] LABS: Glucose,Whole Blood 166 mg/dL (70-110)
[2022-09-18] MEDS ORDERED: ACETAMINOPHEN TAB 325 MG TAB PO PRN (18:51)
[2022-09-18] MEDS ORDERED: hydrOXYzine pamoate 25 MG CAP PO PRN (18:51)
[2022-09-18] MEDS: SYMBICORT 160-4.5 MCG INHALER INHALATION SCH (20:22)
[2022-09-18] MEDS: ALBUTEROL HFA INHALER INHALATION SCH (20:23)
[2022-09-18 20:32] LABS: Glucose,Whole Blood 264 mg/dL (70-110)
[2022-09-18] MEDS: DABIGATRAN 150 MG CAP PO SCH (21:27)
[2022-09-18] MEDS: INSULIN DETEMIR (LEVEMIR) 100 UNIT/ML SYR SQ SCH (21:28)
[2022-09-18] MEDS: PREGABALIN 100 MG CAP PO SCH (21:29)
[2022-09-18] MEDS: SODIUM CHLORIDE 0.65% NASAL SPRAY 44 ML BTL NASAL SCH (21:29)
[2022-09-18] MEDS: traZODone HCL 100 MG TAB PO SCH (21:29)
[2022-09-18] MEDS: RANOLAZINE 500 MG TAB.ER.12H PO SCH (21:29)
[2022-09-18] MEDS: methIMAzole 5 MG TAB PO SCH (21:42)
[2022-09-18 23:00] LABS: Magnesium 2.1 mg/dL (1.6-2.3); Potassium 3.9 mmol/L (3.5-5.1)
[2022-09-19] MEDS: FUROSEMIDE 10 MG/ML 4 ML VIAL IV SCH ×4 (00:24→21:28)
[2022-09-19] MEDS: HYDROcodone/APAP 7.5-325MG 1 EACH TAB PO PRN ×4 (01:08→21:59)
[2022-09-19 06:22] LABS: Glucose,Whole Blood 123 mg/dL (70-110)
[2022-09-19 06:45] LABS: Calcium 7.6 mg/dL (8.4-10.2); Potassium 3.9 mmol/L (3.5-5.1)
[2022-09-19] MEDS ORDERED: MIDODRINE 5 MG TAB PO SCH (07:30)
[2022-09-19] MEDS ORDERED: FUROSEMIDE 40 MG TAB PO SCH (09:00)
[2022-09-19] MEDS: PREGABALIN 100 MG CAP PO SCH ×2 (09:19→21:27)
[2022-09-19] MEDS: ATORVASTATIN 80 MG TAB PO SCH (09:20)
[2022-09-19] MEDS: LORATADINE 10 MG TAB PO SCH (09:20)
[2022-09-19] MEDS: POTASSIUM CHLORIDE ER 10 MEQ TAB.ER.PRT PO SCH (09:20)
[2022-09-19] MEDS: predniSONE 10 MG TAB PO SCH (09:20)
[2022-09-19] MEDS: METOPROLOL SUCCINATE (ER) 25 MG TAB.ER.24H PO SCH (09:20)
[2022-09-19] MEDS: RANOLAZINE 500 MG TAB.ER.12H PO SCH ×2 (09:20→21:28)
[2022-09-19] MEDS: GLIMEPIRIDE 4 MG TAB PO SCH (09:20)
[2022-09-19] MEDS: PIOGLITAZONE 30 MG TAB PO SCH (09:20)
[2022-09-19] MEDS: MULTIVITAMINS, THERA 1 EACH TAB PO SCH (09:20)
[2022-09-19] MEDS: TOPIRAMATE 25 MG TAB PO SCH (09:20)
[2022-09-19] MEDS: ALBUTEROL HFA INHALER INHALATION SCH ×4 (09:31→21:26)
[2022-09-19] MEDS: SYMBICORT 160-4.5 MCG INHALER INHALATION SCH ×2 (09:31→21:26)
[2022-09-19] MEDS: TIOTROPIUM 2.5 MCG INHALER INHALATION SCH (09:31)
[2022-09-19] MEDS: NITROGLYCERIN OINT 1 INCH/GM PACKET TOPICAL SCH (10:02)
--- NOTE | 2022-09-19 10:54 | HP ---
HISTORY AND PHYSICAL A 67-year-old white male with past medical history of hypertension, diabetes, CHF, released from the hospital last . He went home for 3 or 4 days. He never got his scripts that we sent him home on. He continues to be complaining of leg pain on the right. He has AKA on the left leg. Increased swelling in his legs. He has had difficulty breathing. He denied any chest pain, or palpitations. He is here because his leg hurts because he is not on enough Lasix. MEDICATIONS: Home medicines were reviewed, include, 1. Lyrica 300 daily. 2. Primatene 10 t.i.d. 3. [place] 7.5 q.6. 4. K-Dur 10 mEq daily. 5. Multivitamin daily. 6. Pradaxa 150 b.i.d. 7. Topamax 25 daily. 8. Lipitor 80 daily. 9. Loratadine 10 daily. Other scripts, please see old note including, 1. Levemir 15 at bedtime. 2. Lasix 40 mg b.i.d. 3. Symbicort 160/4.5 two puffs b.i.d. 4. Actos 30 mg daily. 5. Amaryl 4 mg daily. 6. Metoprolol succinate 25 mg daily. 7. Ranexa 500 b.i.d. 8. Flomax 0.8 mg daily. 9. Spiriva Respimat 1 puff daily. 10.Tapazole 7.5 b.i.d. 11.Desyrel 100 at bedtime. 12.Prednisone 10 daily. REVIEW OF SYSTEMS: A 14-point review of systems otherwise negative. PAST MEDICAL HISTORY: Atrial fibrillation, asthma, COPD, CVA, diabetes mellitus, DVT, GERD, systolic heart failure, oxygen-dependent COPD, pulmonary embolism, PAST SURGICAL HISTORY: Adenoidectomy, appendectomy, tonsillectomy, Isabell filter. FAMILY HISTORY: Mother, coronary artery disease, myocardial infarction. Father, diabetes mellitus, renal disease. PHYSICAL EXAMINATION: GENERAL: Well developed, well nourished, nontoxic. HEENT: Normocephalic, atraumatic. Pupils equal, round, reactive. LUNGS: Showed good breath sounds bilaterally. CARDIOVASCULAR: S1, S2 without murmurs, rubs, or gallops. ABDOMEN: Soft, nontender. SKIN: Warm, dry, and clear. NEUROLOGIC: Cranial nerves are intact. MUSCULOSKELETAL: 2+ edema. Tenderness in right lower leg. Left leg, AKA. LYMPHATICS: Negative. PSYCH: Normal. VITAL SIGNS: Temperature 97.7, pulse 89 to 101, respiratory rate 18 to 20, blood pressure 124 to 127 over 80s to 97, O2 of 97% to 100%. EKG shows atrial fibrillation with RVR 99. BNP was over 5000. Negative DVT of the right leg. Acute on chronic anemia. DIAGNOSES: Systolic heart failure, chronic obstructive pulmonary disease was worsening, noncompliance with outpatient medicines hyperthyroidism, COPD, oxygen dependent, pulmonary edema, leg pain. Prognosis guarded. Get Cardiology consulted. Suspect noncompliance with medicine. He has something to do and then coming back in the hospital. Prognosis guarded. Follow up . MMODL / IJN: [id number] /
[2022-09-19 11:45] VITALS: BMI 26.5
--- NOTE | 2022-09-19 11:45 | CONS ---
CONSULTATION HISTORY OF PRESENT ILLNESS: This gentleman was recently discharged from the hospital. Please refer to the note from September 15 from Cardiology. He is a 67-year-old gentleman with a history of persistent atrial fibrillation, previous cardioversions, but recurrent atrial fibrillation, has a cardiomyopathy with ejection fraction in the 30% to 35% range, but no significant obstructive CAD, probably has some microvascular dysfunction. He also has a history of DVT, previous Energy filter, and left above-knee amputation, bilateral iliac artery stents, hypertension, hyperlipidemia, and diabetes. He came into the hospital with increasing shortness of breath. He was discharged on the of this month. He came in with increasing edema of lower extremities and shortness of breath and complaining of pain all over. At the time of my evaluation, his pain is better. His breathing is comfortable. He is already on Pradaxa 150 mg b.i.d. DVT assessment was performed with a venous Doppler, which was negative. The patient does not have clinical evidence of DVT. He is resting comfortably without symptoms. He also has what seems to be an autonomic dysfunction and takes midodrine. At the time of my evaluation, he is resting comfortably. No chest pain. Shortness of breath has improved. He has multiple comorbid conditions in the form of type 2 diabetes, hypertension, hyperlipidemia, nonischemic cardiomyopathy with persistent atrial fibrillation with previous cardioversion, was scheduled for ablation, but I am not sure if this is scheduled at this time. He also has history of Isabell filter more than 20 years ago. Please refer to the recent note. PHYSICAL EXAMINATION: VITAL SIGNS: Blood pressure is 108/70, pulse rate is about 80, irregular. NECK: JVD 1 cm. No carotid bruit. HEART: S1, S2 heard normally with irregular rhythm. Short systolic murmur. LUNGS: Reveal fair air entry. ABDOMEN: Soft. EXTREMITIES: Right lower extremity has some mild edema. He has left above-knee amputation. CENTRAL NERVOUS SYSTEM: Grossly no focal deficits. LABORATORY DATA: Suggests that his troponins are normal. His BNP is modestly elevated, which is actually his baseline. Chest x-ray from yesterday revealed mild pulmonary vascular congestion. His BNP is about 5050. IMPRESSION: 1. Mild exacerbation of congestive heart failure. 2. Nonischemic cardiomyopathy. 3. Persistent atrial fibrillation. 4. Diabetes. 5. Hyperlipidemia. 6. Hypertension. 7. History of autonomic dysfunction. 8. History of left above-knee amputation. RECOMMENDATIONS: I would recommend that we diurese him cautiously. IV Lasix 40 mg q.12 hours. Request Social Service evaluation for placement. Continue other medications. Prognosis remains poor. MMODL / IJN: [id number] /
[2022-09-19 11:48] LABS: Glucose,Whole Blood 201 mg/dL (70-110)
[2022-09-19] MEDS: MIDODRINE 5 MG TAB PO SCH ×2 (11:55→18:00)
[2022-09-19] MEDS: DABIGATRAN 150 MG CAP PO SCH ×2 (11:55→21:59)
[2022-09-19] MEDS: methIMAzole 5 MG TAB PO SCH ×2 (11:56→21:28)
[2022-09-19] MEDS: SODIUM CHLORIDE 0.65% NASAL SPRAY 44 ML BTL NASAL SCH ×2 (12:03→21:30)
[2022-09-19 16:29] LABS: Glucose,Whole Blood 336 mg/dL (70-110)
[2022-09-19] MEDS ORDERED: DEXTROSE 50% SYRINGE 50 ML IVP PRN ×2 (17:27)
[2022-09-19] MEDS: INSULIN ASPART (NovoLOG) 100 UNIT/ML VIAL SQ SCH ×2 (17:59→21:28)
[2022-09-19] MEDS: TAMSULOSIN 0.4 MG CAP.ER.24H PO SCH (18:02)
[2022-09-19 20:01] LABS: Glucose,Whole Blood 348 mg/dL (70-110)
[2022-09-19] MEDS: traZODone HCL 100 MG TAB PO SCH (21:27)
[2022-09-19] MEDS: INSULIN DETEMIR (LEVEMIR) 100 UNIT/ML SYR SQ SCH (21:28)
[2022-09-20 05:41] LABS: Glucose,Whole Blood 130 mg/dL (70-110)
[2022-09-20] MEDS: INSULIN ASPART (NovoLOG) 100 UNIT/ML VIAL SQ SCH ×4 (05:43→21:09)
[2022-09-20] MEDS: MIDODRINE 5 MG TAB PO SCH ×3 (06:23→17:16)
[2022-09-20] MEDS: ATORVASTATIN 80 MG TAB PO SCH (09:01)
[2022-09-20] MEDS: FUROSEMIDE 10 MG/ML 4 ML VIAL IV SCH (09:01)
[2022-09-20] MEDS: predniSONE 10 MG TAB PO SCH (09:01)
[2022-09-20] MEDS: HYDROcodone/APAP 7.5-325MG 1 EACH TAB PO PRN ×2 (09:01→17:17)
[2022-09-20] MEDS: POTASSIUM CHLORIDE ER 10 MEQ TAB.ER.PRT PO SCH (09:01)
[2022-09-20] MEDS: PREGABALIN 100 MG CAP PO SCH ×2 (09:02→20:03)
[2022-09-20] MEDS: SYMBICORT 160-4.5 MCG INHALER INHALATION SCH ×2 (09:02→20:26)
[2022-09-20] MEDS: RANOLAZINE 500 MG TAB.ER.12H PO SCH ×2 (09:02→20:04)
[2022-09-20] MEDS: TOPIRAMATE 25 MG TAB PO SCH (09:02)
[2022-09-20] MEDS: methIMAzole 5 MG TAB PO SCH ×2 (09:02→21:09)
[2022-09-20] MEDS: DABIGATRAN 150 MG CAP PO SCH ×2 (09:02→21:11)
[2022-09-20] MEDS: ALBUTEROL HFA INHALER INHALATION SCH ×4 (09:02→20:25)
[2022-09-20] MEDS: MULTIVITAMINS, THERA 1 EACH TAB PO SCH (09:02)
[2022-09-20] MEDS: GLIMEPIRIDE 4 MG TAB PO SCH (09:02)
[2022-09-20] MEDS: LORATADINE 10 MG TAB PO SCH (09:02)
[2022-09-20] MEDS: PIOGLITAZONE 30 MG TAB PO SCH (09:02)
[2022-09-20] MEDS: TIOTROPIUM 2.5 MCG INHALER INHALATION SCH (09:02)
[2022-09-20] MEDS: METOPROLOL SUCCINATE (ER) 25 MG TAB.ER.24H PO SCH (09:02)
[2022-09-20] MEDS: SODIUM CHLORIDE 0.65% NASAL SPRAY 44 ML BTL NASAL SCH ×2 (09:03→20:07)
[2022-09-20 11:46] LABS: Glucose,Whole Blood 239 mg/dL (70-110)
[2022-09-20 16:59] LABS: Glucose,Whole Blood 223 mg/dL (70-110)
[2022-09-20] MEDS: FUROSEMIDE 20 MG TAB PO SCH (17:17)
[2022-09-20] MEDS: TAMSULOSIN 0.4 MG CAP.ER.24H PO SCH (17:18)
[2022-09-20] MEDS: traZODone HCL 100 MG TAB PO SCH (20:04)
[2022-09-20 20:39] LABS: Glucose,Whole Blood 197 mg/dL (70-110)
[2022-09-20] MEDS: INSULIN DETEMIR (LEVEMIR) 100 UNIT/ML SYR SQ SCH (21:09)
--- NOTE | 2022-09-20 22:15 | PN ---
PROGRESS NOTE SUBJECTIVE: Cardiology saw the patient. He is on multiple medications for systolic heart failure. He is on IV Lasix 40 q.12. Social service for placement. BNP is elevated above his baseline. mild CHF exacerbation, nonischemic cardiomyopathy versus atrial fibrillation, noncompliance with medications, diabetes, hypertension, dyslipidemia, autonomic dysfunction, below-knee amputation. PLAN: Get him in to a rehab center. Continue current treatment as per Cardiology. Prognosis is guarded. MMODL / IJN: [id number] /
--- NOTE | 2022-09-20 22:44 | PN ---
PROGRESS NOTE Mr. Quijano has a history of ischemic cardiomyopathy and persistent atrial fibrillation with decent rate control. He is feeling better, breathing easier. I will switch him from IV to oral Lasix and increase activity, and the patient can be discharged to a custodial type facility as soon as possible. KIRAN / KAYLIN: [id number] /
[2022-09-21] MEDS: HYDROcodone/APAP 7.5-325MG 1 EACH TAB PO PRN ×4 (00:16→21:17)
[2022-09-21] MEDS: INSULIN ASPART (NovoLOG) 100 UNIT/ML VIAL SQ SCH ×4 (06:23→21:14)
[2022-09-21 06:24] LABS: Glucose,Whole Blood 126 mg/dL (70-110)
[2022-09-21] MEDS: MIDODRINE 5 MG TAB PO SCH ×3 (06:25→17:15)
[2022-09-21 07:55] LABS: Anisocytosis Moderate; Basophils % (A) 0 %; Eosinophils # (A) 0.1 k/uL (0-0.7); Eosinophils % (A) 2 %; HCT 31.9 % (39.0-53.0); HGB 10.1 gm/dL (13.0-17.5); Hypochromasia Slight; Lymphocytes # (A) 1.5 k/uL (1.0-4.8); Lymphocytes % (A) 21 %; MCH 27.2 pg (25.0-35.0); MCHC 31.5 g/dL (31.0-37.0); MCV 86.4 fL (80.0-100.0); Mean Platelet Volume 8.5; Microcytosis Slight; Monocytes # (A) 0.5 k/uL (0-1.0); Monocytes % (A) 6 %; Neutrophils # (A) 5.1 k/uL (1.3-7.7); Neutrophils % (A) 69 %; Platelet Count 250 k/uL (150-450); WBC 7.4 k/uL (3.8-10.6)
[2022-09-21 08:20] LABS: Albumin 3.2 g/dL (3.5-5.0); Calcium 7.8 mg/dL (8.4-10.2); Potassium 4.4 mmol/L (3.5-5.1); Total Bilirubin 0.4 mg/dL (0.2-1.3); Total Protein 6.2 g/dL (6.3-8.2)
[2022-09-21] MEDS: TOPIRAMATE 25 MG TAB PO SCH (08:36)
[2022-09-21] MEDS: predniSONE 10 MG TAB PO SCH (08:36)
[2022-09-21] MEDS: FUROSEMIDE 20 MG TAB PO SCH ×2 (08:36→17:04)
[2022-09-21] MEDS: MULTIVITAMINS, THERA 1 EACH TAB PO SCH (08:36)
[2022-09-21] MEDS: RANOLAZINE 500 MG TAB.ER.12H PO SCH ×2 (08:36→21:13)
[2022-09-21] MEDS: METOPROLOL SUCCINATE (ER) 25 MG TAB.ER.24H PO SCH (08:36)
[2022-09-21] MEDS: PREGABALIN 100 MG CAP PO SCH ×2 (08:36→21:13)
[2022-09-21] MEDS: POTASSIUM CHLORIDE ER 10 MEQ TAB.ER.PRT PO SCH (08:37)
[2022-09-21] MEDS: GLIMEPIRIDE 4 MG TAB PO SCH (08:37)
[2022-09-21] MEDS: LORATADINE 10 MG TAB PO SCH (08:37)
[2022-09-21] MEDS: DABIGATRAN 150 MG CAP PO SCH ×2 (08:37→21:13)
[2022-09-21] MEDS: ATORVASTATIN 80 MG TAB PO SCH (08:37)
[2022-09-21] MEDS: methIMAzole 5 MG TAB PO SCH ×2 (08:38→21:13)
[2022-09-21] MEDS: PIOGLITAZONE 30 MG TAB PO SCH (08:38)
[2022-09-21] MEDS: SODIUM CHLORIDE 0.65% NASAL SPRAY 44 ML BTL NASAL SCH ×2 (08:39→21:14)
[2022-09-21] MEDS: ALBUTEROL HFA INHALER INHALATION SCH ×4 (09:28→20:52)
[2022-09-21] MEDS: SYMBICORT 160-4.5 MCG INHALER INHALATION SCH ×2 (09:28→20:52)
[2022-09-21] MEDS: TIOTROPIUM 2.5 MCG INHALER INHALATION SCH (09:29)
--- NOTE | 2022-09-21 09:38 | CDI ---
Documentation Clarification Form Date: 09/21/2022 9:21:17 AM From: Violeta Yang RN CCDS Phone: [phone] Admit Date: 09/18/2022 2:41:00 PM Patient Name: Checo Quijano Visit Number: [id number] Discharge Date: ATTENTION: The Clinical Documentation Specialists (CDI) and [facility] Coding Staff appreciate your assistance in clarifying documentation. Please respond to the clarification below the line at the bottom and electronically sign. The CDI & [facility] Coding staff will review the response and follow-up if needed. Please note: Queries are made part of the Legal Health Record. If you have any questions, please contact the author of this message via ITS. Dr. Bhakta Your patient is receiving the followin Liters of oxygen via nasal cannula, 09/18 - 09/21. Please clarify what condition/diagnosis is being treated. History/Risk Factors: 67-year-old male presents to the ED with low heart, congestive heart failure. The patient states swelling and pain in the right leg. Medical History: Left AKA, Recent admission to hospital for two months, DM, CHF, Asthma, HTN and Neurologic disorder. 09/18, ED note. Clinical indicators: VSS: 09/18 11:45 B/P 124/80; HR 99; Temp 97.7F RR 20; SpO2 100% 4L nasal cannula 09/18 17:00 RR 22, SpO2 92% 4L nasal cannula 09/19 09:20 RR 18, SpO2 99% 4L nasal cannula 09/20 12:25 RR 16, SpO2 100% 4L nasal cannula 09/21 00:10 SpO2 87% room air 09/21 03:34 SpO2 91% room air CXR, 09/18: Cardiomegaly and mild pulmonary vascular congestion. Correlate with BNP for congestive heart failure. Treatment: 4L nasal cannula What diagnosis are you treating with 4L nasal cannula? [ ] Acute respiratory failure [ ] Acute on chronic respiratory failure [ ] Chronic respiratory failure [ ] No additional diagnosis [ ] Other, please specify [ ] Unable to determine (Template Last Reviewed: August 2020) MTDD
[2022-09-21 11:40] LABS: Glucose,Whole Blood 127 mg/dL (70-110)
--- NOTE | 2022-09-21 12:02 | PN ---
PROGRESS NOTE SUBJECTIVE: Mr. Quijano is in atrial fib, rate is controlled. He is not in heart failure. He feels better. Tolerating the current regimen well. OBJECTIVE: VITALS: Stable. HEART: S1-S2 heard normally, irregular rhythm. LUNGS: Revealed decent air entry. ABDOMEN: Unchanged. LOWER EXTREMITIES: Unchanged. PLAN: To continue current medications, increase activity, and he can be discharged at any time and from this current medical regimen and see Dr. Welsh as an outpatient. MMODL / IJN: [id number] /
[2022-09-21 16:44] LABS: Glucose,Whole Blood 234 mg/dL (70-110)
[2022-09-21] MEDS: TAMSULOSIN 0.4 MG CAP.ER.24H PO SCH (17:04)
[2022-09-21 20:49] LABS: Glucose,Whole Blood 275 mg/dL (70-110)
[2022-09-21] MEDS: INSULIN DETEMIR (LEVEMIR) 100 UNIT/ML SYR SQ SCH (21:13)
[2022-09-21] MEDS: traZODone HCL 100 MG TAB PO SCH (21:13)
[2022-09-22 05:25] LABS: Glucose,Whole Blood 181 mg/dL (70-110)
[2022-09-22] MEDS: INSULIN ASPART (NovoLOG) 100 UNIT/ML VIAL SQ SCH ×2 (06:18→12:01)
[2022-09-22 06:21] LABS: Glucose,Whole Blood 142 mg/dL (70-110)
[2022-09-22] MEDS: MIDODRINE 5 MG TAB PO SCH ×2 (06:37→12:02)
[2022-09-22] MEDS: ALBUTEROL HFA INHALER INHALATION SCH ×2 (08:33→11:52)
[2022-09-22] MEDS: TIOTROPIUM 2.5 MCG INHALER INHALATION SCH (08:33)
[2022-09-22] MEDS: SYMBICORT 160-4.5 MCG INHALER INHALATION SCH (08:33)
[2022-09-22] MEDS: SODIUM CHLORIDE 0.65% NASAL SPRAY 44 ML BTL NASAL SCH (08:56)
[2022-09-22] MEDS: predniSONE 10 MG TAB PO SCH (09:02)
[2022-09-22] MEDS: METOPROLOL SUCCINATE (ER) 25 MG TAB.ER.24H PO SCH (09:02)
[2022-09-22] MEDS: RANOLAZINE 500 MG TAB.ER.12H PO SCH (09:02)
[2022-09-22] MEDS: ATORVASTATIN 80 MG TAB PO SCH (09:02)
[2022-09-22] MEDS: TOPIRAMATE 25 MG TAB PO SCH (09:02)
[2022-09-22] MEDS: FUROSEMIDE 20 MG TAB PO SCH (09:02)
[2022-09-22] MEDS: POTASSIUM CHLORIDE ER 10 MEQ TAB.ER.PRT PO SCH (09:03)
[2022-09-22] MEDS: LORATADINE 10 MG TAB PO SCH (09:03)
[2022-09-22] MEDS: PREGABALIN 100 MG CAP PO SCH (09:03)
[2022-09-22] MEDS: DABIGATRAN 150 MG CAP PO SCH (09:03)
[2022-09-22] MEDS: methIMAzole 5 MG TAB PO SCH (09:03)
[2022-09-22] MEDS: MULTIVITAMINS, THERA 1 EACH TAB PO SCH (09:03)
[2022-09-22] MEDS: GLIMEPIRIDE 4 MG TAB PO SCH (09:04)
[2022-09-22] MEDS: PIOGLITAZONE 30 MG TAB PO SCH (09:04)
[2022-09-22 11:36] LABS: Glucose,Whole Blood 149 mg/dL (70-110)
[2022-09-22 12:06] VITALS: BP 98/52; PULSE 80; RESP 16; TEMP 97.6
--- NOTE | 2022-09-27 08:37 | CDI ---
Documentation Clarification Form Date: 09/21/2022 9:21:17 AM From: Violeta Yang RN CCDS Phone: [phone] Admit Date: 09/18/2022 2:41:00 PM Patient Name: Checo Quijano Visit Number: [id number] Discharge Date: ATTENTION: The Clinical Documentation Specialists (CDI) and [facility] Coding Staff appreciate your assistance in clarifying documentation. Please respond to the clarification below the line at the bottom and electronically sign. The CDI & [facility] Coding staff will review the response and follow-up if needed. Please note: Queries are made part of the Legal Health Record. If you have any questions, please contact the author of this message via ITS. Dr. Bhakta Your patient is receiving the followin Liters of oxygen via nasal cannula, 09/18 - 09/21. Please clarify what condition/diagnosis is being treated. History/Risk Factors: 67-year-old male presents to the ED with low heart, congestive heart failure. The patient states swelling and pain in the right leg. Medical History: Left AKA, Recent admission to hospital for two months, DM, CHF, Asthma, HTN and Neurologic disorder. 09/18, ED note. Clinical indicators: VSS: 09/18 11:45 B/P 124/80; HR 99; Temp 97.7F RR 20; SpO2 100% 4L nasal cannula 09/18 17:00 RR 22, SpO2 92% 4L nasal cannula 09/19 09:20 RR 18, SpO2 99% 4L nasal cannula 09/20 12:25 RR 16, SpO2 100% 4L nasal cannula 09/21 00:10 SpO2 87% room air 09/21 03:34 SpO2 91% room air CXR, 09/18: Cardiomegaly and mild pulmonary vascular congestion. Correlate with BNP for congestive heart failure. Treatment: 4L nasal cannula What diagnosis are you treating with 4L nasal cannula? [ ] Acute respiratory failure [ ] Acute on chronic respiratory failure [ ] Chronic respiratory failure [ ] No additional diagnosis [ ] Other, please specify [ ] Unable to determine (Template Last Reviewed: August 2020) MTDD
--- NOTE | 2022-09-28 23:45 | PN ---
PROGRESS NOTE Acute on chronic respiratory failure. MMODL / IJN: [id number] /
== END 2022-09-22 15:21 | disposition home or self-care (01) ==
LOC: EC 11:39 → 3SCARD 14:41 → INTOOBSV 14:41 → 3SCARD 16:04 → UNDODISIN 09-22 15:21
PROVIDERS: ADMIT Family Medicine; ATTEND Family Medicine
DX: I11.0 Hypertensive heart disease with heart failure (principal); I50.23 Acute on chronic systolic (congestive) heart failure; J96.20 Acute and chronic respiratory failure, unspecified whether with hypoxia or hypercapnia; D68.62 Lupus anticoagulant syndrome; I48.19 Other persistent atrial fibrillation; E11.43 Type 2 diabetes mellitus with diabetic autonomic (poly)neuropathy; I42.8 Other cardiomyopathies; G43.909 Migraine, unspecified, not intractable, without status migrainosus; D64.9 Anemia, unspecified; E78.5 Hyperlipidemia, unspecified; E11.42 Type 2 diabetes mellitus with diabetic polyneuropathy; F17.210 Nicotine dependence, cigarettes, uncomplicated; J44.9 Chronic obstructive pulmonary disease, unspecified; Z66 Do not resuscitate; Z91.14 Patient's other noncompliance with medication regimen; T50.916A Underdosing of multiple unspecified drugs, medicaments and biological substances, initial encounter; I25.10 Atherosclerotic heart disease of native coronary artery without angina pectoris; I45.10 Unspecified right bundle-branch block; K21.9 Gastro-esophageal reflux disease without esophagitis; M79.604 Pain in right leg; G89.29 Other chronic pain; M54.50 Low back pain, unspecified; M19.90 Unspecified osteoarthritis, unspecified site; Z89.612 Acquired absence of left leg above knee; Z99.81 Dependence on supplemental oxygen; Z79.51 Long term (current) use of inhaled steroids; Z79.4 Long term (current) use of insulin; Z79.01 Long term (current) use of anticoagulants; Z79.84 Long term (current) use of oral hypoglycemic drugs; Z79.52 Long term (current) use of systemic steroids; Z79.899 Other long term (current) drug therapy; Z86.718 Personal history of other venous thrombosis and embolism; Z86.711 Personal history of pulmonary embolism; Z86.73 Personal history of transient ischemic attack (TIA), and cerebral infarction without residual deficits; Z96.642 Presence of left artificial hip joint; Z95.828 Presence of other vascular implants and grafts; Z86.14 Personal history of Methicillin resistant Staphylococcus aureus infection; Z99.3 Dependence on wheelchair; Z88.8 Allergy status to other drugs, medicaments and biological substances; Z87.01 Personal history of pneumonia (recurrent); Z90.49 Acquired absence of other specified parts of digestive tract; Z59.00 Homelessness unspecified; Z98.890 Other specified postprocedural states; Z83.3 Family history of diabetes mellitus; Z84.1 Family history of disorders of kidney and ureter; Z82.49 Family history of ischemic heart disease and other diseases of the circulatory system
CPT/HCPCS: 96376 ×2; 96374; 99285; 36415; 94640 ×7; 94760 ×2; 93005; 97162; 97165; 83880; 80053 ×2; 80048; 83605; 83735; 84132; 84484; 85025 ×2; 85610; 85730; 83036; 71046; 93971; G0378 ×5; J1940 ×3; J7512 ×4

== ENCOUNTER 2022-09-23 14:24 | Emergency (ER) | payer MEDICARE, OTHER ==
[2022-09-23 15:11] VITALS: PULSE 51; RESP 20; TEMP 97.5
[2022-09-23] MEDS ORDERED: HYDROmorphone 0.5 MG/0.5 ML SYRINGE IM STA (16:03)
--- NOTE | 2022-09-23 16:55 | CT ---
EXAMINATION TYPE: CT brain cspine wo con DATE OF EXAM: 09/23/2022 COMPARISON: CT brain 06/07/2021 HISTORY: fall, no loc CT DLP: 2107.2 mGycm Automated exposure control for dose reduction was used. Images obtained of the brain and cervical spine without contrast. There is cerebral cortical atrophy. There is no mass effect or midline shift. No sign of intracranial hemorrhage. There is normal aeration of the mastoid sinuses. Cervical vertebra have fairly normal alignment. There is degenerative moderate disc space narrowing a t C5-6 and C6-7 and C7-T1 with spurring of the endplates. There is multilevel cervical facet arthropa thy. No compression fracture. There is a minimal C4-5 subluxation. Prevertebral soft tissues are inta ct. IMPRESSION: Cerebral atrophy. No acute intracranial abnormality brain unchanged compared to old exam. Spondylotic changes in the lower cervical spine. No fracture. Minimal degenerative first-degree C4-5 spondylolisthesis.
--- NOTE | 2022-09-23 16:58 | XR ---
EXAMINATION TYPE: XR lumbosacral spine min 4V DATE OF EXAM: 09/23/2022 COMPARISON: NONE HISTORY: Fall. Pain TECHNIQUE: 5 views FINDINGS: There is a slight lumbar dextroscoliosis. There is inferior vena cava filter. There is disc space narrowing and vacuum disc from L2 to S1. No compression fracture. Posterior elements are intac t. There is stent in the left iliac artery. Sacroiliac joints are intact IMPRESSION: Spondylotic changes. No fracture.
--- NOTE | 2022-09-23 17:23 | ED ---
Back Pain HPI - General Chief Complaint: Back Pain/Injury Stated Complaint: Fall/blood thinners Time Seen by Provider: 09/23/22 15:56 Source: patient Limitations: physical limitation - History of Present Illness Initial Comments: Patient is a 67-year-old male who presents to the emergency department after fall. Patient has [id number]-[id number]-yavo amputation and fell out of his wheelchair today. Patient reports hitting his head he does take blood thinners. He denies visual symptoms, headache. Patient has low back pain which she has trouble describing. There is no radiation. No numbness or tingling. No saddle anesthesia, focal deficit, loss of bladder and bowel function. Taking his prescribed [place] some relief. No chest pain or shortness of breath. - Related Data Home Medications Medication Instructions Recorded Confirmed Topiramate [Topamax] 25 mg PO DAILY 06/22/22 09/18/22 Atorvastatin [Lipitor] 80 mg PO DAILY 08/27/22 09/18/22 Dabigatran [Pradaxa] 150 mg PO BID 08/27/22 09/18/22 Loratadine 10 mg PO DAILY 08/27/22 09/18/22 Multivit-Min/FA/Lycopen/Lutein 1 tab PO DAILY 08/27/22 09/18/22 [Centrum Silver Tablet] Potassium Chloride ER [K-Dur 10] 10 meq PO DAILY 08/27/22 09/18/22 Sodium Chloride [[place]] 1 spr EA NOSTRIL BID 08/27/22 09/18/22 HYDROcodone/APAP 7.5-325MG [[place] 1 tab PO DIRECTED PRN 09/18/22 09/18/22 7.5-325] Midodrine [ProAmatine] 10 mg PO AC-TID 09/18/22 09/18/22 Pregabalin [Lyrica] 300 mg PO DIRECTED 09/18/22 09/18/22 Previous Rx's Medication Instructions Recorded Glimepiride [Amaryl] 4 mg PO DAILY 30 Days #30 tab 07/07/22 Pioglitazone [Actos] 30 mg PO DAILY 30 Days #30 tab 07/07/22 Acetaminophen Tab [Tylenol] 650 mg PO Q4HR PRN tab 09/15/22 Albuterol Inhaler [Ventolin Hfa 2 puff INHALATION RT-QID 30 Days 09/15/22 Inhaler] #1 each Budesonide-Formot 160-4.5 Mcg 2 puff INHALATION RT-BID 30 Days 09/15/22 [Symbicort 160-4.5 Mcg Inhaler] #1 each Furosemide [Lasix] 40 mg PO BID@0900,1600 90 Days 09/15/22 #180 tab Insulin Detemir (Levemir) [Levemir] 15 unit SQ HS 100 Days #100 each 09/15/22 Metoprolol Succinate (ER) [Toprol 25 mg PO DAILY 90 Days #90 tab 09/15/22 XL] Ranolazine [Ranexa] 500 mg PO Q12HR 30 Days #60 tab 09/15/22 Tamsulosin [Flomax] 0.8 mg PO PC-SUPPER 90 Days #90 cap 09/15/22 Tiotropium 2.5 Mcg/Puff [Spiriva 2 puff INHALATION RT-DAILY 30 Days 09/15/22 Respimat 2.5 Mcg] #1 each hydrOXYzine pamoate [Vistaril] 25 mg PO Q8HR PRN 30 Days #90 cap 09/15/22 methIMAzole [Tapazole] 7.5 mg PO BID 30 Days #60 tab 09/15/22 predniSONE 10 mg PO DAILY 30 Days #30 tab 09/15/22 traZODone HCL [Desyrel] 100 mg PO HS 30 Days #30 tab 09/15/22 Lidocaine 5% Patch [Lidoderm 5% 1 patch TOPICAL DAILY PRN #7 patch 09/23/22 Patch] Allergies Allergy/AdvReac Type Severity Reaction Status Date / Time baclofen Allergy Unknown Verified 09/23/22 15:11 apixaban [From Eliquis] AdvReac "felt Verified 09/23/22 15:11 funny" Review of Systems ROS Statement: Those systems with pertinent positive or pertinent negative responses have been documented in the HPI. ROS Other: All systems not noted in ROS Statement are negative. Past Medical History Past Medical History: Atrial Fibrillation, Asthma, COPD, CVA/TIA, Diabetes Mellitus, Deep Vein Thrombosis (DVT), GERD/Reflux, Hyperlipidemia, Hypertension, Neurologic Disorder, Osteoarthritis (OA), Pneumonia, Pulmonary Embolus (PE), Skin Disorder, Vascular Disorder Additional Past Medical History / Comment(s): Pt admitted to [facility] on 11/20/20 with hyperkalemia, hyperglycemia, uncontrolled diabetes. Other hx: Lupus anticoagulant, DVTs bilateral legs, PEs bilateral lungs in , pt has zina filter, L AKA/wheelchair bound, NIDDM type II, neuropathy bilateral h ands, wound care patient for buttock wound, now healed, TIAs, pneumothorax, past migraines, chronic low back pain, R leg edema at times, varicosities. History of Any Multi-Drug Resistant Organisms: MRSA Date of last positivie culture/infection: 06/04/21 MDRO Source:: Right Leg MRSA Past Surgical History: Adenoidectomy, Appendectomy, Tonsillectomy Additional Past Surgical History / Comment(s): Zina filter, stents in vessels "in pelvic area", total L hip arthroplasty, vein strippings, colonoscopy. left leg amputation Past Anesthesia/Blood Transfusion Reactions: No Reported Reaction Additional Past Anesthesia/Blood Transfusion Reaction / Comment(s): Pt has received blood in past without reaction. Past Psychological History: No Psychological Hx Reported Smoking Status: Former smoker Past Alcohol Use History: None Reported Past Drug Use History: None Reported - Past Family History Mother Family Medical History: Coronary Artery Disease (CAD), Myocardial Infarction (MT), Vascular Disorder Additional Family Medical History / Comment(s): heart disease, peripheral vascular disease. Father Family Medical History: Diabetes Mellitus, Renal Disease General Exam Limitations: physical limitation General appearance: alert, in no apparent distress Head exam: Present: atraumatic, normocephalic, normal inspection Eye exam: Present: normal appearance, PERRL, EOMI. Absent: scleral icterus, conjunctival injection, periorbital swelling Respiratory exam: Present: normal lung sounds bilaterally. Absent: respiratory distress, wheezes, rales, rhonchi, stridor Cardiovascular Exam: Present: regular rate, normal rhythm, normal heart sounds. Absent: systolic murmur, diastolic murmur, rubs, gallop, clicks Extremities exam: Present: normal inspection, normal capillary refill Neurological exam: Present: alert, oriented X3, CN II-XII intact Psychiatric exam: Present: normal affect, normal mood Skin exam: Present: warm, dry, intact, normal color. Absent: rash Course Vital Signs 09/23/22 09/23/22 09/23/22 15:05 16:48 18:01 Temperature 97.5 F L Pulse Rate 51 L Respiratory 20 Rate Blood Pressure 111/74 136/89 136/84 O2 Sat by Pulse 92 L 97 Oximetry Medical Decision Making - Medical Decision Making Was pt. sent in by a medical professional or institution ([facility], [employer], urgent care, hospital, or jail...) When possible be specific @ -[No] Did you speak to anyone other than the patient for history (EMS, parent, family, police, friend...)? What history was obtained from this source @ -[No] Did you review nursing and triage notes (agree or disagree)? Why? @ -[I reviewed and agree with nursing and triage notes] Were old charts reviewed (outside hosp., previous admission, EMS record, old EKG, old radiological studies, urgent care reports/EKG's, jail records)? Report findings @ -[No old charts were reviewed] Differential Diagnosis (chest pain, altered mental status, abdominal pain women, abdominal pain men, vaginal bleeding, weakness, fever, dyspnea, syncope, headache, dizziness, GI bleed, back pain, seizure, CVA, palpatations, mental health)? @ Mechanical back pain, cauda equina, intracranial hemorrhage EKG interpreted by me (3pts min.). @ -[As above] X-rays interpreted by me (1pt min.). @ -Yes, lumbosacral x-ray negative for acute process CT interpreted by me (1pt min.). @ -Yes, CT of the brain and C-spine negative for acute process U/S interpreted by me (1pt. min.). @ -[None done] What testing was considered but not performed or refused? (CT, X-rays, U/S, labs)? Why? @ -[None] What meds were considered but not given or refused? Why? @ -[None] Did you discuss the management of the patient with other professionals (professionals i.e. [facility], [employer], lab, RT, psych nurse, clinical social worker, horse trekking guide, teacher, aoc director combat operations officer, machine adjuster leader case trim)? Give summary @ -[No] Was smoking cessation discussed for >3mins.? @ -[No] Was critical care preformed (if so, how long)? @ -[No] Were there social determinants of health that impacted care today? How? (Homelessness, low income, unemployed, alcoholism, drug addiction, transportation, low edu. Level, literacy, decrease access to med. care, nursing home, rehab)? @ -[No] Was there de-escalation of care discussed even if they declined (Discuss DNR or withdrawal of care, Hospice)? DNR status @ -[No] What co-morbidities impacted this encounter? (DM, HTN, Smoking, COPD, CAD, Cancer, CVA, ARF, Chemo, Hep., AIDS, mental health diagnosis, sleep apnea, morbid obesity)? @ -[None] Was patient admitted / discharged? Hospital course, mention meds given and route, prescriptions, significant lab abnormalities, going to OR and other pertinent info. @ -Patient presented after fall. Patient has low back pain, no symptoms or signs of cauda equina. CT of the brain and C-spine negative for acute process. Lumbosacral x-ray unremarkable. Patient given pain medication with improvement of symptoms he'll be discharged home. Undiagnosed new problem with uncertain prognosis? @ -[No] Drug Therapy requiring intensive monitoring for toxicity (Heparin, Nitro, Insulin, Cardizem)? @ -[No] Were any procedures done? @ -[No] Diagnosis/symptom? @ -mechanical back pain, fall Acute, or Chronic, or Acute on Chronic? @ -acute Uncomplicated (without systemic symptoms) or Complicated (systemic symptoms)? @ -uncomplicated Side effects of treatment? @ -[No] Exacerbation, Progression, or Severe Exacerbation? @ -[No] Poses a threat to life or bodily function? How? (Chest pain, [place], MT, pneumonia, PE, COPD, DKA, ARF, appy, cholecystitis, CVA, Diverticulitis, Homicidal, Suicidal, threat to staff... and all critical care pts) @ -[No] Dr. Vizcarra is my attending Disposition Clinical Impression: Mechanical back pain, Fall Disposition: HOME SELF-CARE Condition: Good Instructions (If sedation given, give patient instructions): Acute Low Back Pain (ED) Additional Instructions: Take home prescription of [place] for pain. Apply lidocaine patches as needed. Follow-up with primary care provider in one to 2 days. Return to emergency department if you experience new, concerning, or worsening symptoms. Prescriptions: Lidocaine 5% Patch [Lidoderm 5% Patch] 1 patch TOPICAL DAILY PRN #7 patch PRN Reason: Pain Is patient prescribed a controlled substance at d/c from ED?: No Referrals: None,Stated [Primary Care Provider] - 1-2 days
[2022-09-23 18:58] VITALS: BP 136/84
== END 2022-09-23 18:01 | disposition home or self-care (01) ==
LOC: EC 14:24
DX: M54.50 Low back pain, unspecified (principal); E11.40 Type 2 diabetes mellitus with diabetic neuropathy, unspecified; I10 Essential (primary) hypertension; E78.5 Hyperlipidemia, unspecified; J44.9 Chronic obstructive pulmonary disease, unspecified; K21.9 Gastro-esophageal reflux disease without esophagitis; I48.91 Unspecified atrial fibrillation; Z79.01 Long term (current) use of anticoagulants; Z79.899 Other long term (current) drug therapy; Z87.891 Personal history of nicotine dependence; Z86.73 Personal history of transient ischemic attack (TIA), and cerebral infarction without residual deficits; Z86.718 Personal history of other venous thrombosis and embolism; Z86.711 Personal history of pulmonary embolism; Z99.3 Dependence on wheelchair; W05.0XXA Fall from non-moving wheelchair, initial encounter
CPT/HCPCS: 72110; 72125; 70450; 99284; 96372; J1170

== ENCOUNTER 2022-11-20 10:34 | Emergency (ER) | payer MEDICARE, OTHER ==
--- NOTE | 2022-11-20 10:50 | ED ---
Altered Mental Status HPI - General Chief Complaint: Altered Mental Status Stated Complaint: Altered Mental Status Time Seen by Provider: 11/20/22 10:44 - History of Present Illness Initial Comments: Patient is 67-year-old male presenting to the emergency room with worsening altered mental status, decreased oxygenation and lethargy and increased agitation via EMS from [facility]. Patient is currently on antibiotic therapy status post discharge on 11/10/2022 for MRSA positive bacteremia and urinary tract infection. He is on Cubicin 600 mg IV daily via left upper arm PICC line 2 weeks from discharge, consequently has an additional 4 days left of his current prescription. Upon arrival he is saturating well on 3 L nasal cannula which is his baseline supplemental oxygen need. He is agitated but alert and oriented 2 which is near baseline as well. He is complaining of back pain which is chronic. He has a chronic indwelling Gamble catheter in place with princess urine drainage. He is agitated and declines answering any other questions. He has an extensive past medical history which includes asthma, COPD, A. fib, diabetes, hypertension, hyperlipidemia, GERD, DVT, pulmonary emboli, peripheral vascular disease, lupus anticoagulant disorder, left AKA, diabetic ulcers, diabetic neuropathy and multiple TIAs. - Related Data Home Medications Medication Instructions Recorded Confirmed Atorvastatin [Lipitor] 80 mg PO HS 08/27/22 10/28/22 Loratadine 10 mg PO DAILY 08/27/22 10/28/22 Acetaminophen Tab [Tylenol] 1,000 mg PO Q8H PRN 10/28/22 10/28/22 Dabigatran [Pradaxa] 150 mg PO BID@0800,1600 10/28/22 10/28/22 Ferrous Sulfate [Iron (65 MG 325 mg PO DAILY 10/28/22 10/28/22 Elemental)] Insulin Lispro [Admelog Solostar] See Protocol SQ AC-TID 10/28/22 10/28/22 Ipratropium Nebulized [Atrovent 0.5 mg INHALATION RT-Q6H PRN 10/28/22 10/28/22 Nebulized 0.2 MG/ML] Omeprazole [PriLOSEC] 20 mg PO DAILY 10/28/22 10/28/22 Sennosides [Senokot] 8.6 mg PO BID 10/28/22 10/28/22 Previous Rx's Medication Instructions Recorded Bumetanide [BUMEX] 1 mg PO DAILY@1600 tab 11/09/22 Bumetanide [BUMEX] 2 mg PO DAILY tab 11/09/22 DAPTOmycin [Cubicin] 600 mg IVPB Q24H each 11/09/22 HYDROcodone/APAP 7.5-325MG [Lindsay 1 each PO Q6HR PRN tab 11/09/22 7.5-325] INSULIN ASPART (NovoLOG) [NovoLOG 0 unit SQ ACHS each 11/09/22 (formulary)] Insulin Detemir (Levemir) [Levemir] 14 unit SQ HS each 11/09/22 Ipratropium-Albuterol Nebulize 3 ml INHALATION RT-Q6H PRN each 11/09/22 [Duoneb 0.5 mg-3 mg/3 ml Soln] Lidocaine 5% Patch [Lidoderm 5% 1 patch TOPICAL DAILY patch 11/09/22 Patch] Metoprolol Succinate (ER) [Toprol 75 mg PO BID tab 11/09/22 XL] Nortriptyline [Pamelor] 75 mg PO HS cap 11/09/22 methIMAzole [Tapazole] 5 mg PO TID tab 11/09/22 Allergies Allergy/AdvReac Type Severity Reaction Status Date / Time baclofen Allergy Unknown Verified 10/28/22 15:27 Iodinated Contrast Media Allergy Unknown Verified 10/28/22 15:27 sulfamethoxazole Allergy Unknown Verified 10/28/22 15:27 [From Bactrim] trimethoprim [From Bactrim] Allergy Unknown Verified 10/28/22 15:27 apixaban [From Eliquis] AdvReac "felt Verified 10/28/22 15:27 funny" Review of Systems ROS Statement: Those systems with pertinent positive or pertinent negative responses have been documented in the HPI. ROS Other: All systems not noted in ROS Statement are negative. Past Medical History Past Medical History: Atrial Fibrillation, Asthma, COPD, CVA/TIA, Diabetes Mellitus, Deep Vein Thrombosis (DVT), GERD/Reflux, Hyperlipidemia, Hypertension, Neurologic Disorder, Osteoarthritis (OA), Pneumonia, Pulmonary Embolus (PE), Skin Disorder, Vascular Disorder Additional Past Medical History / Comment(s): Pt admitted to [facility] on 11/20/20 with hyperkalemia, hyperglycemia, uncontrolled diabetes. Other hx: Lupus anticoagulant, DVTs bilateral legs, PEs bilateral lungs in , pt has zian filter, L AKA/wheelchair bound, NIDDM type II, neuropathy bilateral hands, wound care patient for buttock wound, now healed, TIAs, pneumothorax, past migraines, chronic low back pain, R leg edema at times, varicosities. Date of last positivie culture/infection: 10/30/2022 MDRO Source:: Bacteremia Past Surgical History: Adenoidectomy, Appendectomy, Tonsillectomy Additional Past Surgical History / Comment(s): Cocoa filter, stents in vessels "in pelvic area", total L hip arthroplasty, vein strippings, colonoscopy. left leg amputation Past Anesthesia/Blood Transfusion Reactions: No Reported Reaction Additional Past Anesthesia/Blood Transfusion Reaction / Comment(s): Pt has received blood in past without reaction. Past Psychological History: No Psychological Hx Reported Additional Psychological History / Comment(s): Pt currently living in hotels, He has a glucometer. He has a nebulizer. Pt has prosthetic, states it is being worked on. Smoking Status: Former smoker Past Alcohol Use History: None Reported Additional Past Alcohol Use History / Comment(s): Pt startes smoking in 1969 and is a ppd smoker. Past Drug Use History: None Reported - Past Family History Mother Family Medical History: Coronary Artery Disease (CAD), Myocardial Infarction (NE), Vascular Disorder Additional Family Medical History / Comment(s): heart disease, peripheral vascular disease. Father Family Medical History: Diabetes Mellitus, Renal Disease General Exam Limitations: altered mental status, physical limitation General appearance: alert, in no apparent distress Head exam: Present: atraumatic, normocephalic, normal inspection Eye exam: Present: normal appearance, PERRL, EOMI. Absent: scleral icterus, conjunctival injection, periorbital swelling ENT exam: Present: normal exam, mucous membranes dry Neck exam: Present: normal inspection, full ROM Respiratory exam: Present: decreased breath sounds ( throughout), other (Barrel chested). Absent: respiratory distress, wheezes, rales, rhonchi, stridor, chest wall tenderness, accessory muscle use Cardiovascular Exam: Present: tachycardia (mild), irregular rhythm, normal heart sounds, systolic murmur. Absent: rubs, gallop, clicks, JVD GI/Abdominal exam: Present: soft, normal bowel sounds. Absent: distended, tenderness, guarding, rebound, rigid Rectal exam: Present: deferred Extremities exam: Present: other (L AKA). Absent: tenderness, pedal edema, joint swelling Back exam: Present: normal inspection Neurological exam: Present: alert Expanded Patient oriented to: Present: person, place. Absent: time Speech: Present: fluid speech Psychiatric exam: Present: agitated Skin exam: Present: warm, dry, intact, normal color. Absent: rash Course Vital Signs 11/20/22 11/20/22 11/20/22 10:38 10:43 10:45 Temperature 98.1 F Pulse Rate 104 H 108 H Respiratory 22 16 Rate Blood Pressure 119/95 119/95 O2 Sat by Pulse 80 L 97 77 L Oximetry 11/20/22 11/20/22 11/20/22 11:00 11:15 11:30 Temperature Pulse Rate 98 101 H 95 Respiratory 14 16 16 Rate Blood Pressure 121/89 129/94 128/104 O2 Sat by Pulse 58 L 94 L Oximetry 11/20/22 11/20/22 11/20/22 11:45 12:00 12:15 Temperature Pulse Rate 101 H 97 103 H Respiratory 12 12 16 Rate Blood Pressure 138/87 130/93 113/95 O2 Sat by Pulse 77 L 99 Oximetry 11/20/22 11/20/22 11/20/22 12:30 12:45 13:00 Temperature Pulse Rate 107 H 107 H 102 H Respiratory 14 17 14 Rate Blood Pressure 124/85 133/90 130/108 O2 Sat by Pulse 97 Oximetry Medical Decision Making - Medical Decision Making Was pt. sent in by a medical professional or institution (, PA, ACCOUNT DEVELOPMENT EXECUTIVE, urgent care, hospital, or shelter...) When possible be specific @ -No Did you speak to anyone other than the patient for history (EMS, parent, family, police, friend...)? What history was obtained from this source @ -No Did you review nursing and triage notes (agree or disagree)? Why? @ -I reviewed and agree with nursing and triage notes Were old charts reviewed (outside hosp., previous admission, EMS record, old EKG, old radiological studies, urgent care reports/EKG's, shelter records)? Report findings @ -Yes, I reviewed previous EKG on file from 10/28/2022 and discharge summary 11/10/2022 Differential Diagnosis (chest pain, altered mental status, abdominal pain women, abdominal pain men, vaginal bleeding, weakness, fever, dyspnea, syncope, headache, dizziness, GI bleed, back pain, seizure, CVA, palpatations, mental health, musculoskeletal)? @ -Differential Altered Mental Status: Hypoglycemia, DKA, hypercapnia, ETOH, overdose, CO poisoning, trauma, myxedema coma, HTN encephalopathy, infection, encephalitis, psychosis, intercranial hemorrhage, hepatic encephalopathy, meningitis, CVA, this is not meant to be an all-inclusive list EKG interpreted by me (3pts min.). @ -Atrial fibrillation with rapid ventricular response and bundle-branch block, ventricular rate 104 bpm, OK interval * ms, QRS duration 205 ms, QT/QTC 462/522 ms PRT axes *, 217, 8 X-rays. @ -Chest x-ray 2 view ordered but not completed due to patient refusing x-ray. CT interpreted by me (1pt min.). @ -None done U/S interpreted by me (1pt. min.). @ -None done What testing was considered but not performed or refused? (CT, X-rays, U/S, labs)? Why? @ -Chest x-ray ordered but refused by patient What meds were considered but not given or refused? Why? @ -None Did you discuss the management of the patient with other professionals (professionals i.e. , PA, ACCOUNT DEVELOPMENT EXECUTIVE, lab, RT, psych nurse, licensed social worker, drop wirer, teacher, deck officer, shoe caser)? Give summary @ -No Was smoking cessation discussed for >3mins.? @ -No Was critical care preformed (if so, how long)? @ -No Were there social determinants of health that impacted care today? How? (Homelessness, low income, unemployed, alcoholism, drug addiction, transportation, low edu. Level, literacy, decrease access to med. care, shelter, rehab)? @ -No Was there de-escalation of care discussed even if they declined (Discuss DNR or withdrawal of care, Hospice)? DNR status @ -No What co-morbidities impacted this encounter? (DM, HTN, Smoking, COPD, CAD, Cancer, CVA, ARF, Chemo, Hep., AIDS, mental health diagnosis, sleep apnea, morbid obesity)? @ -Recent MRSA bacteremia and UTI currently on antibiotics Was patient admitted / discharged? Hospital course, mention meds given and route, prescriptions, significant lab abnormalities, going to OR and other pertinent info. @ -67-year-old male presenting to the emergency room with worsening altered mental status, decreased oxygenation and lethargy and increased agitation. Patient is currently on antibiotic therapy status post discharge on 11/10/2022 for MRSA positive bacteremia and urinary tract infection. He is on Cubicin 600 mg IV daily via left upper arm PICC line 2 weeks from discharge consequently has an additional 4 days left of his current prescription. Upon arrival he is saturating well on 3 L nasal cannula which is his baseline. He is agitated but alert and oriented 2 which is near baseline as well. Due to recent infection and concerns from shelter facility will start sepsis workup with chest x-ray, EKG, CBC, CMP, lactic acid, blood cultures, coags and urinalysis. Chronic indwelling Gamble catheter in place. 500 mL of IV hydration given by EMS. Will give additional 1L of normal saline. Patient refusing chest x-ray. Will proceed with other diagnostic imaging and laboratory studies. EKG demonstrates mild tachycardia, atrial fibrillation and bundle-branch block. Patient nonproductive for atrial fibrillation; complex slightly elevated. CMP reveals elevated BUN 32, creatinine normal, glucose low but stable 71, calcium low 7.9 with corrected calcium normalized due to albumin of 2.6, remaining electrolytes normal. Urinalysis with +1 protein trace blood and large leukocyte esterase 26 urine rbc's 30 to urine WBCs were mucus and few budding yeast. Currently on antibiotic therapy for urinary tract infection. CBC demonstrates anemia hemoglobin 10.2 no leukocytosis. Lactic acid normal 1.4. Repeat blood sugar 67. 1 amp of dextrose 2% given with repeat glucose level elevated to 141. Chest x-ray shows pulmonary vascular congestion oxygen level stable without adventitious sounds. At baseline mental status/alertness. No indication for further diagnostic imaging or laboratory studies at this time. will arrange transportation back to [facility] advising monitoring blood sugars closely with possible titration of insulin if continued hypoglycemia. Will discharge back to shelter facility in stable condition with chronic indwelling catheter in place with continuation of antibiotic therapy for MRSA bacteremia and urinary tract infection advising follow-up with primary care provider and infectious disease specialist. Undiagnosed new problem with uncertain prognosis? @ -No Drug Therapy requiring intensive monitoring for toxicity (Heparin, Nitro, Insulin, Cardizem)? @ -No Were any procedures done? @ -No Diagnosis/symptom? @ -Urinary tract infection Acute, or Chronic, or Acute on Chronic? @ -Acute Uncomplicated (without systemic symptoms) or Complicated (systemic symptoms)? @ -Complicated, develops bacteremia. Side effects of treatment? @ -No Exacerbation, Progression, or Severe Exacerbation? @ -No Poses a threat to life or bodily function? How? (Chest pain, USA, NE, pneumonia, PE, COPD, DKA, ARF, appy, cholecystitis, CVA, Diverticulitis, Homicidal, Suicidal, threat to staff... and all critical care pts) @ -No Diagnosis/symptom? @ -Bacteremia Acute, or Chronic, or Acute on Chronic? @ -Acute Uncomplicated (without systemic symptoms) or Complicated (systemic symptoms)? @ -Complicated- Side effects of treatment? @ -none Exacerbation, Progression, or Severe Exacerbation] @ -no Poses a threat to life or bodily function? @ -no, systemic symptoms improved and responding to antibiotic therapy. Diagnosis/symptom? @ -Dementia Acute, or Chronic, or Acute on Chronic? @ -Chronic Uncomplicated (without systemic symptoms) or Complicated (systemic symptoms)? @ -Uncomplicated Side effects of treatment? @ -none Exacerbation, Progression, or Severe Exacerbation] @ -no Poses a threat to life or bodily function? @ -no Case discussed with Dr. Daniel. - Lab Data Result diagrams: 11/20/22 10:52 11/20/22 10:52 Lab Results 11/20/22 11/20/22 11/20/22 Range/Units 10:52 10:52 10:52 WBC 8.8 (3.8-10.6) k/uL RBC 3.54 L (4.30-5.90) m/uL Hgb 10.2 L (13.0-17.5) gm/dL Hct 33.1 L (39.0-53.0) % MCV 93.6 D (80.0-100.0) fL MCH 28.9 (25.0-35.0) pg MCHC 30.9 L (31.0-37.0) g/dL RDW 20.8 H (11.5-15.5) % Plt Count 304 (150-450) k/uL MPV 7.5 Neutrophils % 80 % Lymphocytes % 11 % Monocytes % 6 % Eosinophils % 1 % Basophils % 0 % Neutrophils # 7.1 (1.3-7.7) k/uL Lymphocytes # 1.0 (1.0-4.8) k/uL Monocytes # 0.5 (0-1.0) k/uL Eosinophils # 0.1 (0-0.7) k/uL Basophils # 0.0 (0-0.2) k/uL Hypochromasia Slight Anisocytosis Moderate Macrocytosis Slight PT 15.2 H (9.0-12.0) sec INR 1.5 H (<1.2) APTT 36.4 H (22.0-30.0) sec Sodium (137-145) mmol/L Potassium (3.5-5.1) mmol/L Chloride (98-107) mmol/L Carbon Dioxide (22-30) mmol/L Anion Gap mmol/L BUN (9-20) mg/dL Creatinine (0.66-1.25) mg/dL Est GFR (CKD-EPI)AfAm (>60 ml/min/1.73 sqM) Est GFR (CKD-EPI)NonAf (>60 ml/min/1.73 sqM) Glucose (74-99) mg/dL POC Glucose (mg/dL) (70-110) mg/dL POC Glu Emt Basic ID Plasma Lactic Acid Dennis (0.7-2.0) mmol/L Calcium (8.4-10.2) mg/dL Total Bilirubin (0.2-1.3) mg/dL AST (17-59) U/L ALT (4-49) U/L Alkaline Phosphatase (38-126) U/L Total Protein (6.3-8.2) g/dL Albumin (3.5-5.0) g/dL Urine Color Yellow Urine Appearance Cloudy (Clear) Urine pH 6.0 (5.0-8.0) Ur Specific Tatum 1.021 (1.001-1.035) Urine Protein 1+ H (Negative) Urine Glucose (UA) Negative (Negative) Urine Ketones Negative (Negative) Urine Blood Trace H (Negative) Urine Nitrite Negative (Negative) Urine Bilirubin Negative (Negative) Urine Urobilinogen >12.0 (<2.0) mg/dL Ur Leukocyte Esterase Large H (Negative) Urine RBC 26 H (0-5) /hpf Urine WBC 32 H (0-5) /hpf Urine Mucus Rare H (None) /hpf Ur Yeast w Hyphae Occasional (None) /hpf Urine Yeast (Budding) Few H (None) /hpf 11/20/22 11/20/22 11/20/22 Range/Units 10:52 10:52 12:28 WBC (3.8-10.6) k/uL RBC (4.30-5.90) m/uL Hgb (13.0-17.5) gm/dL Hct (39.0-53.0) % MCV (80.0-100.0) fL MCH (25.0-35.0) pg MCHC (31.0-37.0) g/dL RDW (11.5-15.5) % Plt Count (150-450) k/uL MPV Neutrophils % % Lymphocytes % % Monocytes % % Eosinophils % % Basophils % % Neutrophils # (1.3-7.7) k/uL Lymphocytes # (1.0-4.8) k/uL Monocytes # (0-1.0) k/uL Eosinophils # (0-0.7) k/uL Basophils # (0-0.2) k/uL Hypochromasia Anisocytosis Macrocytosis PT (9.0-12.0) sec INR (<1.2) APTT (22.0-30.0) sec Sodium 139 (137-145) mmol/L Potassium 3.7 (3.5-5.1) mmol/L Chloride 101 (98-107) mmol/L Carbon Dioxide 30 (22-30) mmol/L Anion Gap 8 mmol/L BUN 32 H (9-20) mg/dL Creatinine 1.19 (0.66-1.25) mg/dL Est GFR (CKD-EPI)AfAm 74 (>60 ml/min/1.73 sqM) Est GFR (CKD-EPI)NonAf 64 (>60 ml/min/1.73 sqM) Glucose 71 L (74-99) mg/dL POC Glucose (mg/dL) 67 L (70-110) mg/dL POC Glu Emt Basic ID [facility] Plasma Lactic Acid Dennis 1.4 (0.7-2.0) mmol/L Calcium 7.9 L (8.4-10.2) mg/dL Total Bilirubin 1.2 (0.2-1.3) mg/dL AST 29 (17-59) U/L ALT 27 (4-49) U/L Alkaline Phosphatase 150 H (38-126) U/L Total Protein 6.6 (6.3-8.2) g/dL Albumin 2.6 L (3.5-5.0) g/dL Urine Color Urine Appearance (Clear) Urine pH (5.0-8.0) Ur Specific Tatum (1.001-1.035) Urine Protein (Negative) Urine Glucose (UA) (Negative) Urine Ketones (Negative) Urine Blood (Negative) Urine Nitrite (Negative) Urine Bilirubin (Negative) Urine Urobilinogen (<2.0) mg/dL Ur Leukocyte Esterase (Negative) Urine RBC (0-5) /hpf Urine WBC (0-5) /hpf Urine Mucus (None) /hpf Ur Yeast w Hyphae (None) /hpf Urine Yeast (Budding) (None) /hpf 11/20/22 Range/Units 13:44 WBC (3.8-10.6) k/uL RBC (4.30-5.90) m/uL Hgb (13.0-17.5) gm/dL Hct (39.0-53.0) % MCV (80.0-100.0) fL MCH (25.0-35.0) pg MCHC (31.0-37.0) g/dL RDW (11.5-15.5) % Plt Count (150-450) k/uL MPV Neutrophils % % Lymphocytes % % Monocytes % % Eosinophils % % Basophils % % Neutrophils # (1.3-7.7) k/uL Lymphocytes # (1.0-4.8) k/uL Monocytes # (0-1.0) k/uL Eosinophils # (0-0.7) k/uL Basophils # (0-0.2) k/uL Hypochromasia Anisocytosis Macrocytosis PT (9.0-12.0) sec INR (<1.2) APTT (22.0-30.0) sec Sodium (137-145) mmol/L Potassium (3.5-5.1) mmol/L Chloride (98-107) mmol/L Carbon Dioxide (22-30) mmol/L Anion Gap mmol/L BUN (9-20) mg/dL Creatinine (0.66-1.25) mg/dL Est GFR (CKD-EPI)AfAm (>60 ml/min/1.73 sqM) Est GFR (CKD-EPI)NonAf (>60 ml/min/1.73 sqM) Glucose (74-99) mg/dL POC Glucose (mg/dL) 141 H (70-110) mg/dL POC Glu Emt Basic Kylah Franco Plasma Lactic Acid Dennis (0.7-2.0) mmol/L Calcium (8.4-10.2) mg/dL Total Bilirubin (0.2-1.3) mg/dL AST (17-59) U/L ALT (4-49) U/L Alkaline Phosphatase (38-126) U/L Total Protein (6.3-8.2) g/dL Albumin (3.5-5.0) g/dL Urine Color Urine Appearance (Clear) Urine pH (5.0-8.0) Ur Specific Tatum (1.001-1.035) Urine Protein (Negative) Urine Glucose (UA) (Negative) Urine Ketones (Negative) Urine Blood (Negative) Urine Nitrite (Negative) Urine Bilirubin (Negative) Urine Urobilinogen (<2.0) mg/dL Ur Leukocyte Esterase (Negative) Urine RBC (0-5) /hpf Urine WBC (0-5) /hpf Urine Mucus (None) /hpf Ur Yeast w Hyphae (None) /hpf Urine Yeast (Budding) (None) /hpf - Radiology Data Radiology results: report reviewed, image reviewed Disposition Clinical Impression: MRSA bacteremia, Dementia, UTI (urinary tract infection) Disposition: HOME SELF-CARE Condition: Stable Instructions (If sedation given, give patient instructions): Altered Mental Status (ED) Additional Instructions: Monitor blood sugars closely and contact primary care provider if continued hypoglycemia for adjustment in insulin regimen. Continue current antibiotic th erapy. Please have patient follow-up with infectious disease specialist along with primary care provider. Please return to the Emergency Department if symptoms worsen or any other concerns. Is patient prescribed a controlled substance at d/c from ED?: No Referrals: Quintin Bhakta MD [Primary Care Provider] - 1-2 days Time of Disposition: 13:50
[2022-11-20 10:51] VITALS: TEMP 98.1
[2022-11-20 11:28] LABS: INR 1.5 (<1.2); Partial Thromboplastin Time 36.4 sec (22.0-30.0); Prothrombin Time 15.2 sec (9.0-12.0)
[2022-11-20 11:40] LABS: Albumin 2.6 g/dL (3.5-5.0); Calcium 7.9 mg/dL (8.4-10.2); Potassium 3.7 mmol/L (3.5-5.1); Total Bilirubin 1.2 mg/dL (0.2-1.3); Total Protein 6.6 g/dL (6.3-8.2)
[2022-11-20] MEDS ORDERED: SODIUM CHLORIDE 0.9% 500 ML IV STA (11:47)
[2022-11-20] MEDS ORDERED: SODIUM CHLORIDE 0.9% 1,000 ML IV STA (11:51)
[2022-11-20 12:28] LABS: Anisocytosis Moderate; Basophils % (A) 0 %; Eosinophils # (A) 0.1 k/uL (0-0.7); Eosinophils % (A) 1 %; HCT 33.1 % (39.0-53.0); HGB 10.2 gm/dL (13.0-17.5); Hypochromasia Slight; Lymphocytes % (A) 11 %; MCH 28.9 pg (25.0-35.0); MCHC 30.9 g/dL (31.0-37.0); Macrocytosis Slight; Mean Platelet Volume 7.5; Monocytes # (A) 0.5 k/uL (0-1.0); Monocytes % (A) 6 %; Neutrophils # (A) 7.1 k/uL (1.3-7.7); Neutrophils % (A) 80 %; Platelet Count 304 k/uL (150-450); RBC 3.54 m/uL (4.30-5.90); RDW 20.8 % (11.5-15.5); WBC 8.8 k/uL (3.8-10.6)
[2022-11-20 12:29] LABS: Glucose,Whole Blood 67 mg/dL (70-110)
[2022-11-20] MEDS ORDERED: DEXTROSE 50% SYRINGE 50 ML IVP STA (12:29)
[2022-11-20 12:31] LABS: MCV 93.6 fL (80.0-100.0)
[2022-11-20 12:51] LABS: Appearance,Urine Cloudy (Clear); Bilirubin,Urine Negative (Negative); Blood,Urine Trace (Negative); Budding Yeast,Urine Few /hpf; Color,Urine Yellow; Glucose,Urine (UA) Negative (Negative); Hyphae Yeast, Urine Occasional /hpf; Ketones,Urine Negative (Negative); Leukocyte Esterase,Urine Large (Negative); Mucus,Urine Rare /hpf; Nitrite,Urine Negative (Negative); Protein,Urine 1+ (Negative); RBC,Urine 26 /hpf (0-5); Specific Gravity,Urine 1.021 (1.001-1.035); Urobilinogen,Urine >12.0 mg/dL (<2.0); WBC,Urine 32 /hpf (0-5)
--- NOTE | 2022-11-20 13:24 | XR ---
EXAMINATION TYPE: XR chest 1V DATE OF EXAM: 11/20/2022 COMPARISON: 10/27/2022 INDICATION: Altered mental status, hypoxia TECHNIQUE: Single frontal view of the chest is obtained. Patient is rotated on the exam. FINDINGS: The heart size is prominent. The pulmonary vasculature is prominent. Mild diffuse increased lung markings are present which can be related to pulmonary edema IMPRESSION: 1. Prominent pulmonary vasculature with mild cardiomegaly. Diffuse increased lung opacity can be rela michael to pulmonary edema. Correlate for congestive heart failure.
[2022-11-20 13:46] LABS: Glucose,Whole Blood 141 mg/dL (70-110)
[2022-11-20 14:15] VITALS: BP 115/78; PULSE 116; RESP 18
== END 2022-11-20 14:46 | disposition home or self-care (01) ==
LOC: EEVIPCON 10:34 → EC 10:34
DX: R78.81 Bacteremia (principal); B95.62 Methicillin resistant Staphylococcus aureus infection as the cause of diseases classified elsewhere; F03.911 Unspecified dementia, unspecified severity, with agitation; N39.0 Urinary tract infection, site not specified; I48.91 Unspecified atrial fibrillation; J44.9 Chronic obstructive pulmonary disease, unspecified; E11.9 Type 2 diabetes mellitus without complications; K21.9 Gastro-esophageal reflux disease without esophagitis; I10 Essential (primary) hypertension; E78.5 Hyperlipidemia, unspecified; Z86.711 Personal history of pulmonary embolism; Z86.73 Personal history of transient ischemic attack (TIA), and cerebral infarction without residual deficits; M19.90 Unspecified osteoarthritis, unspecified site; Z87.891 Personal history of nicotine dependence; Z79.84 Long term (current) use of oral hypoglycemic drugs; Z79.1 Long term (current) use of non-steroidal anti-inflammatories (NSAID); Z79.899 Other long term (current) drug therapy; Z79.01 Long term (current) use of anticoagulants; Z79.4 Long term (current) use of insulin; Z88.1 Allergy status to other antibiotic agents; Z91.041 Radiographic dye allergy status; Z88.8 Allergy status to other drugs, medicaments and biological substances; Z88.2 Allergy status to sulfonamides; Z88.6 Allergy status to analgesic agent
CPT/HCPCS: 36415; 71045; 80053; 81001; 83605; 85025; 85610; 85730; 87040; 87086; 93005; 96361; 96374; 99285

== ENCOUNTER 2022-11-20 17:53 | Inpatient (IN) | payer MEDICARE, OTHER ==
[2022-11-20] MEDS ORDERED: SODIUM CHLORIDE 0.9% 500 ML 500 ML IV ONE (18:05)
[2022-11-20] MEDS ORDERED: SODIUM CHLORIDE 0.9% 1,000 ML IV ONE (18:05)
[2022-11-20 18:15] LABS: Glucose,Whole Blood 78 mg/dL (70-110)
--- NOTE | 2022-11-20 18:23 | ED ---
Altered Mental Status HPI - General Chief Complaint: Altered Mental Status Stated Complaint: AMS Time Seen by Provider: 11/20/22 18:00 Source: EMS, RN notes reviewed, old records reviewed Mode of arrival: EMS Limitations: no limitations - History of Present Illness Initial Comments: 67-year-old male history of multiple medical problems including diabetes peripheral neuropathy chronic atrial fibrillation who was seen here earlier today in this emergency department and discharged back to his nursing facility apparently he started developing altered mental status again he normally is a and O 2 apparently he was a and O 0 he was be transported to [facility] but was directed by their medical control to come to this facility due to apparent new right bundle-branch findings on EKGs. Patient had a blood glucose per paramedics of over 200 no trauma reported. He only been back at the nursing facility for a couple hours before transporting out again. He has ever recent history of hospitalization with ICU care MRSA diagnosis had been in the ICU on pressors apparently with a septic picture at that time. He does have a chronic indwelling Gamble catheter. Otherwise no other information available at this time. MD Complaint: altered mental status, decreased responsiveness - Related Data Home Medications Medication Instructions Recorded Confirmed Atorvastatin [Lipitor] 80 mg PO HS 08/27/22 11/20/22 Loratadine 10 mg PO DAILY 08/27/22 11/20/22 Dabigatran [Pradaxa] 150 mg PO BID@0800,1600 10/28/22 11/20/22 Ferrous Sulfate [Iron (65 MG 325 mg PO BID 10/28/22 11/20/22 Elemental)] Omeprazole [PriLOSEC] 20 mg PO DAILY 10/28/22 11/20/22 Sennosides [Senokot] 8.6 mg PO BID 10/28/22 11/20/22 Acetaminophen Tab [Tylenol] 650 mg PO Q6H PRN 11/20/22 11/20/22 HYDROcodone/APAP 7.5-325MG [[place] 1 tab PO Q6HR PRN 11/20/22 11/20/22 7.5-325] Healthshake 1 dose PO TID@0800,1200,1800 11/20/22 11/20/22 INSULIN ASPART (NovoLOG) [NovoLOG See Protocol SQ ACHS@06,11,16,20 11/20/22 11/20/22 (formulary)] Lidocaine-Menthol 3.6-1.25% Patches 1 patch TOPICAL DAILY@0800 11/20/22 11/20/22 Metoprolol Tartrate [Lopressor] 75 mg PO BID 11/20/22 11/20/22 Multivitamins, Thera [Multivitamin 1 tab PO DAILY@0800 11/20/22 11/20/22 (formulary)] Nortriptyline HCl 75 mg PO HS 11/20/22 11/20/22 Pregabalin [Lyrica] 150 mg PO BID@0800,1600 11/20/22 11/20/22 Previous Rx's Medication Instructions Recorded Bumetanide [BUMEX] 1 mg PO DAILY@1600 tab 11/09/22 Bumetanide [BUMEX] 2 mg PO DAILY tab 11/09/22 Insulin Detemir (Levemir) [Levemir] 14 unit SQ HS each 11/09/22 Ipratropium-Albuterol Nebulize 3 ml INHALATION RT-Q6H PRN each 11/09/22 [Duoneb 0.5 mg-3 mg/3 ml Soln] methIMAzole [Tapazole] 5 mg PO TID tab 11/09/22 Allergies Allergy/AdvReac Type Severity Reaction Status Date / Time baclofen Allergy Unknown Verified 11/20/22 19:09 Iodinated Contrast Media Allergy Unknown Verified 11/20/22 19:09 sulfamethoxazole Allergy Unknown Verified 11/20/22 19:09 [From Bactrim] trimethoprim [From Bactrim] Allergy Unknown Verified 11/20/22 19:09 apixaban [From Eliquis] AdvReac "felt Verified 11/20/22 19:09 funny" Review of Systems ROS Statement: Those systems with pertinent positive or pertinent negative responses have been documented in the HPI. ROS Other: All systems not noted in ROS Statement are negative. Past Medical History Past Medical History: Atrial Fibrillation, Asthma, COPD, CVA/TIA, Diabetes Mellitus, Deep Vein Thrombosis (DVT), GERD/Reflux, Hyperlipidemia, Hypertension, Neurologic Disorder, Osteoarthritis (OA), Pneumonia, Pulmonary Embolus (PE), Skin Disorder, Vascular Disorder Additional Past Medical History / Comment(s): Pt admitted to [facility] on 11/20/20 with hyperkalemia, hyperglycemia, uncontrolled diabetes. Other hx: Lupus anticoagulant, DVTs bilateral legs, PEs bilateral lungs in , pt has zina filter, L AKA/wheelchair bound, NIDDM type II, neuropathy bilateral hands, wound care patient for buttock wound, now healed, TIAs, pneumothorax, past migraines, chronic low back pain, R leg edema at times, varicosities. History of Any Multi-Drug Resistant Organisms: MRSA Date of last positivie culture/infection: 10/30/2022 MDRO Source:: Bacteremia Past Surgical History: Adenoidectomy, Appendectomy, Tonsillectomy Additional Past Surgical History / Comment(s): [place] filter, stents in vessels "in pelvic area", total L hip arthroplasty, vein strippings, colonoscopy. left leg amputation Past Anesthesia/Blood Transfusion Reactions: No Reported Reaction Additional Past Anesthesia/Blood Transfusion Reaction / Comment(s): Pt has received blood in past without reaction. Past Psychological History: No Psychological Hx Reported Smoking Status: Former smoker Past Alcohol Use History: None Reported Past Drug Use History: None Reported - Past Family History Mother Family Medical History: Coronary Artery Disease (CAD), Myocardial Infarction ([place]), Vascular Disorder Additional Family Medical History / Comment(s): heart disease, peripheral vascular disease. Father Family Medical History: Diabetes Mellitus, Renal Disease General Exam - General Exam Comments Initial Comments: This is a well-developed well-nourished male who did respond to painful stimulus and was later conversant. Complaining of back pain. Limitations: no limitations General appearance: obtunded Head exam: Present: atraumatic, normocephalic, normal inspection Eye exam: Present: normal appearance, PERRL, EOMI. Absent: scleral icterus, conjunctival injection, periorbital swelling ENT exam: Present: mucous membranes dry Neck exam: Present: normal inspection, full ROM, other (No stridor JVD or bruits). Absent: tenderness, meningismus, lymphadenopathy Respiratory exam: Present: decreased breath sounds. Absent: respiratory distress, wheezes, rales, rhonchi, stridor Cardiovascular Exam: Present: tachycardia, irregular rhythm, normal heart sounds. Absent: systolic murmur, diastolic murmur, rubs, gallop, clicks GI/Abdominal exam: Present: soft, normal bowel sounds. Absent: distended, tenderness, guarding, rebound, rigid Rectal exam: Present: deferred exam: Present: other (Gamble catheter in place no evidence of any bleeding. Dark princess colored urine noted.) Extremities exam: Present: full ROM, normal capillary refill, other (Left oqcys-rho-[id number] amputation no evidence of any skin breakdown). Absent: tenderness, pedal edema, joint swelling, calf tenderness Back exam: Present: normal inspection Neurological exam: Present: alert, altered, CN II-XII intact Psychiatric exam: Present: other (Unable to evaluate at this time) Skin exam: Present: warm, dry, intact, normal color. Absent: rash Course Vital Signs 11/20/22 11/20/22 17:54 19:43 Temperature 96.8 F L Pulse Rate 107 H 96 Respiratory 20 18 Rate Blood Pressure 123/103 127/85 O2 Sat by Pulse 100 97 Oximetry Medical Decision Making - Medical Decision Making I did discuss findings with the patient's family. His daughter did see the patient at the group home in between ER visits he was unresponsive to home but upon arrival here he did explain that he was more responsive to initially sternal stimulation later did complain of back pain verbally to one of the nurses. I did discuss case with Dr. Bhakta patient be admitted with for evaluation of altered mental status with consultation by Dr. Ronquillo as well as neurology. Was pt. sent in by a medical professional or institution (, PA, NURSE CHEMICAL DEPENDENCY, urgent care, hospital, or group home...) When possible be specific @ -No Did you speak to anyone other than the patient for history (EMS, parent, family, police, friend...)? What history was obtained from this source @ -Paramedics as well as nursing staff at the care the patient prior Did you review nursing and triage notes (agree or disagree)? Why? @ -I reviewed and agree with nursing and triage notes Were old charts reviewed (outside hosp., previous admission, EMS record, old EKG, old radiological studies, urgent care reports/EKG's, group home records)? Report findings @ -2 days old charts were reviewed Differential Diagnosis (chest pain, altered mental status, abdominal pain women, abdominal pain men, vaginal bleeding, weakness, fever, dyspnea, syncope, headache, dizziness, GI bleed, back pain, seizure, CVA, palpatations, mental health, musculoskeletal)? @ -Altered mental status to include TIA which she's had before to include hypoglycemia to include undiagnosed seizure EKG interpreted by me (3pts min.). @ -As above X-rays interpreted by me (1pt min.). @ -As above CT interpreted by me (1pt min.). @ -As above U/S interpreted by me (1pt. min.). @ -None done What testing was considered but not performed or refused? (CT, X-rays, U/S, labs)? Why? @ -None What meds were considered but not given or refused? Why? @ -None Did you discuss the management of the patient with other professionals (professionals i.e. , PA, NURSE CHEMICAL DEPENDENCY, lab, RT, psych nurse, rn social services, social secretary, teacher, chief supply chain officer, caseworker)? Give summary @ -Dr. Bhakta Was smoking cessation discussed for >3mins.? @ -No Was critical care preformed (if so, how long)? @ -No Were there social determinants of health that impacted care today? How? (Homelessness, low income, unemployed, alcoholism, drug addiction, transportation, low edu. Level, literacy, decrease access to med. care, custodial, re hab)? @ -group home patient Was there de-escalation of care discussed even if they declined (Discuss DNR or withdrawal of care, Hospice)? DNR status @ -No What co-morbidities impacted this encounter? (DM, HTN, Smoking, COPD, CAD, Cancer, CVA, ARF, Chemo, Hep., AIDS, mental health diagnosis, sleep apnea, morbid obesity)? @ -Diabetes peripheral neuropathy chronic atrial fibrillation hypertension history of PE history of COPD and asthma et al. Was patient admitted / discharged? Hospital course, mention meds given and route, prescriptions, significant lab abnormalities, going to OR and other pertinent info. @ -Patient was admitted for inpatient evaluation and treatment with consultation from infectious disease and neurology Undiagnosed new problem with uncertain prognosis? @ -Altered mental status Drug Therapy requiring intensive monitoring for toxicity (Heparin, Nitro, Insulin, Cardizem)? @ -No Were any procedures done? @ -No Diagnosis/symptom? @ -Altered mental status, encephalopathy, chronic atrial fibrillation Acute, or Chronic, or Acute on Chronic? @ -Acute Uncomplicated (without systemic symptoms) or Complicated (systemic symptoms)? @ -[Complicated] Side effects of treatment? @ -[No] Exacerbation, Progression, or Severe Exacerbation? @ -[No] Poses a threat to life or bodily function? How? (Chest pain, [place], [place], pneumonia, PE, COPD, DKA, ARF, appy, cholecystitis, CVA, Diverticulitis, Homicidal, Suicidal, threat to staff... and all critical care pts) @ -[Altered mental status, chronic atrial fibrillation] - Lab Data Result diagrams: 11/20/22 18:07 11/20/22 18:07 Lab Results 11/20/22 11/20/22 11/20/22 Range/Units 18:07 18:07 18:07 WBC 10.4 (3.8-10.6) k/uL RBC 3.74 L (4.30-5.90) m/uL Hgb 11.0 L (13.0-17.5) gm/dL Hct 34.7 L (39.0-53.0) % MCV 92.9 (80.0-100.0) fL MCH 29.5 (25.0-35.0) pg MCHC 31.8 (31.0-37.0) g/dL RDW 21.1 H (11.5-15.5) % Plt Count 325 (150-450) k/uL MPV 7.8 Neutrophils % 80 % Lymphocytes % 11 % Monocytes % 6 % Eosinophils % 1 % Basophils % 0 % Neutrophils # 8.3 H (1.3-7.7) k/uL Lymphocytes # 1.2 (1.0-4.8) k/uL Monocytes # 0.6 (0-1.0) k/uL Eosinophils # 0.1 (0-0.7) k/uL Basophils # 0.0 (0-0.2) k/uL Hypochromasia Slight Anisocytosis Moderate Macrocytosis Slight PT 15.0 H (9.0-12.0) sec INR 1.5 H (<1.2) APTT 44.8 H (22.0-30.0) sec Sodium (137-145) mmol/L Potassium (3.5-5.1) mmol/L Chloride (98-107) mmol/L Carbon Dioxide (22-30) mmol/L Anion Gap mmol/L BUN (9-20) mg/dL Creatinine (0.66-1.25) mg/dL Est GFR (CKD-EPI)AfAm (>60 ml/min/1.73 sqM) Est GFR (CKD-EPI)NonAf (>60 ml/min/1.73 sqM) Glucose (74-99) mg/dL POC Glucose (mg/dL) (70-110) mg/dL POC Glu Client Leader ID Plasma Lactic Acid Dennis (0.7-2.0) mmol/L Calcium (8.4-10.2) mg/dL Magnesium (1.6-2.3) mg/dL Total Bilirubin (0.2-1.3) mg/dL AST (17-59) U/L ALT (4-49) U/L Alkaline Phosphatase (38-126) U/L Ammonia (<30) umol/L Troponin I (0.000-0.034) ng/mL Total Protein (6.3-8.2) g/dL Albumin (3.5-5.0) g/dL Lipase (23-300) U/L Urine Opiates Screen Detected H (NotDetected) Ur Oxycodone Screen Not Detected (NotDetected) Urine Methadone Screen Not Detected (NotDetected) Ur Propoxyphene Screen Not Detected (NotDetected) Ur Barbiturates Screen Not Detected (NotDetected) U Tricyclic Antidepress Detected H (NotDetected) Ur Phencyclidine Scrn Not Detected (NotDetected) Ur Amphetamines Screen Not Detected (NotDetected) U Methamphetamines Scrn Not Detected (NotDetected) U Benzodiazepines Scrn Not Detected (NotDetected) Urine Cocaine Screen Not Detected (NotDetected) U Marijuana (THC) Screen Not Detected (NotDetected) 11/20/22 11/20/22 11/20/22 Range/Units 18:07 18:07 18:07 WBC (3.8-10.6) k/uL RBC (4.30-5.90) m/uL Hgb (13.0-17.5) gm/dL Hct (39.0-53.0) % MCV (80.0-100.0) fL MCH (25.0-35.0) pg MCHC (31.0-37.0) g/dL RDW (11.5-15.5) % Plt Count (150-450) k/uL MPV Neutrophils % % Lymphocytes % % Monocytes % % Eosinophils % % Basophils % % Neutrophils # (1.3-7.7) k/uL Lymphocytes # (1.0-4.8) k/uL Monocytes # (0-1.0) k/uL Eosinophils # (0-0.7) k/uL Basophils # (0-0.2) k/uL Hypochromasia Anisocytosis Macrocytosis PT (9.0-12.0) sec INR (<1.2) APTT (22.0-30.0) sec Sodium 140 (137-145) mmol/L Potassium 3.8 (3.5-5.1) mmol/L Chloride 101 (98-107) mmol/L Carbon Dioxide 31 H (22-30) mmol/L Anion Gap 8 mmol/L BUN 30 H (9-20) mg/dL Creatinine 1.19 (0.66-1.25) mg/dL Est GFR (CKD-EPI)AfAm 74 (>60 ml/min/1.73 sqM) Est GFR (CKD-EPI)NonAf 64 (>60 ml/min/1.73 sqM) Glucose 91 (74-99) mg/dL POC Glucose (mg/dL) (70-110) mg/dL POC Glu Client Leader ID Plasma Lactic Acid Dennis 1.4 (0.7-2.0) mmol/L Calcium 7.9 L (8.4-10.2) mg/dL Magnesium 2.0 (1.6-2.3) mg/dL Total Bilirubin 1.2 (0.2-1.3) mg/dL AST 40 (17-59) U/L ALT 27 (4-49) U/L Alkaline Phosphatase 153 H (38-126) U/L Ammonia <9 (<30) umol/L Troponin I 0.026 (0.000-0.034) ng/mL Total Protein 6.8 (6.3-8.2) g/dL Albumin 2.7 L (3.5-5.0) g/dL Lipase 15 L (23-300) U/L Urine Opiates Screen (NotDetected) Ur Oxycodone Screen (NotDetected) Urine Methadone Screen (NotDetected) Ur Propoxyphene Screen (NotDetected) Ur Barbiturates Screen (NotDetected) U Tricyclic Antidepress (NotDetected) Ur Phencyclidine Scrn (NotDetected) Ur Amphetamines Screen (NotDetected) U Methamphetamines Scrn (NotDetected) U Benzodiazepines Scrn (NotDetected) Urine Cocaine Screen (NotDetected) U Marijuana (THC) Screen (NotDetected) 11/20/22 Range/Units 18:14 WBC (3.8-10.6) k/uL RBC (4.30-5.90) m/uL Hgb (13.0-17.5) gm/dL Hct (39.0-53.0) % MCV (80.0-100.0) fL MCH (25.0-35.0) pg MCHC (31.0-37.0) g/dL RDW (11.5-15.5) % Plt Count (150-450) k/uL MPV Neutrophils % % Lymphocytes % % Monocytes % % Eosinophils % % Basophils % % Neutrophils # (1.3-7.7) k/uL Lymphocytes # (1.0-4.8) k/uL Monocytes # (0-1.0) k/uL Eosinophils # (0-0.7) k/uL Basophils # (0-0.2) k/uL Hypochromasia Anisocytosis Macrocytosis PT (9.0-12.0) sec INR (<1.2) APTT (22.0-30.0) sec Sodium (137-145) mmol/L Potassium (3.5-5.1) mmol/L Chloride (98-107) mmol/L Carbon Dioxide (22-30) mmol/L Anion Gap mmol/L BUN (9-20) mg/dL Creatinine (0.66-1.25) mg/dL Est GFR (CKD-EPI)AfAm (>60 ml/min/1.73 sqM) Est GFR (CKD-EPI)NonAf (>60 ml/min/1.73 sqM) Glucose (74-99) mg/dL POC Glucose (mg/dL) 78 (70-110) mg/dL POC Glu Client Leader ID Krysta Kimbrough Plasma Lactic Acid Dennis (0.7-2.0) mmol/L Calcium (8.4-10.2) mg/dL Magnesium (1.6-2.3) mg/dL Total Bilirubin (0.2-1.3) mg/dL AST (17-59) U/L ALT (4-49) U/L Alkaline Phosphatase (38-126) U/L Ammonia (<30) umol/L Troponin I (0.000-0.034) ng/mL Total Protein (6.3-8.2) g/dL Albumin (3.5-5.0) g/dL Lipase (23-300) U/L Urine Opiates Screen (NotDetected) Ur Oxycodone Screen (NotDetected) Urine Methadone Screen (NotDetected) Ur Propoxyphene Screen (NotDetected) Ur Barbiturates Screen (NotDetected) U Tricyclic Antidepress (NotDetected) Ur Phencyclidine Scrn (NotDetected) Ur Amphetamines Screen (NotDetected) U Methamphetamines Scrn (NotDetected) U Benzodiazepines Scrn (NotDetected) Urine Cocaine Screen (NotDetected) U Marijuana (THC) Screen (NotDetected) - EKG Data -: EKG Interpreted by Me EKG Comments: EKG shows atrial fibrillation with a response rate of 104 QRS duration 1 9070 QT since QTC 446/506 CVA she right bundle-branch block pattern this is consistent with an EKG done earlier today at 10:48 AM this also correlates with an EKG done on September 18 of this year. - Radiology Data Interpreted by me: I did review the imaging and did interpreted processes are seen at this time. No acute processes Disposition Clinical Impression: Delirium due to general medical condition, Encephalopathy acute, Chronic atrial fibrillation Disposition: ADMITTED IP TO THIS [facility] Condition: Fair Referrals: Quintin Bhakta MD [Primary Care Provider] - 1-2 days Decision Date: 11/20/22 Decision Time: 20:30
--- NOTE | 2022-11-20 18:27 | XR ---
EXAMINATION TYPE: XR chest 1V portable DATE OF EXAM: 11/20/2022 HISTORY: Shortness of breath. COMPARISON: 11/20/2022 TECHNIQUE: Single view of the chest is submitted. FINDINGS: Demonstrated are scattered senescent parenchymal change. Nonspecific coarse lung markings persist throughout both lung swartz. The heart is stable. Hilar and mediastinal structures are within normal limits. Degenerative changes are seen of the dorsal spine. IMPRESSION: 1. Nonspecific coarse lung markings persist throughout both lung swartz.
[2022-11-20 18:36] LABS: Anisocytosis Moderate; Basophils % (A) 0 %; Eosinophils # (A) 0.1 k/uL (0-0.7); Eosinophils % (A) 1 %; HCT 34.7 % (39.0-53.0); Hypochromasia Slight; Lactic Acid, Venous 1.4 mmol/L (0.7-2.0); Lymphocytes # (A) 1.2 k/uL (1.0-4.8); Lymphocytes % (A) 11 %; MCH 29.5 pg (25.0-35.0); MCHC 31.8 g/dL (31.0-37.0); MCV 92.9 fL (80.0-100.0); Macrocytosis Slight; Mean Platelet Volume 7.8; Monocytes # (A) 0.6 k/uL (0-1.0); Monocytes % (A) 6 %; Neutrophils # (A) 8.3 k/uL (1.3-7.7); Neutrophils % (A) 80 %; Platelet Count 325 k/uL (150-450); RBC 3.74 m/uL (4.30-5.90); RDW 21.1 % (11.5-15.5); WBC 10.4 k/uL (3.8-10.6)
[2022-11-20 18:42] LABS: INR 1.5 (<1.2); Partial Thromboplastin Time 44.8 sec (22.0-30.0)
[2022-11-20 18:49] LABS: Albumin 2.7 g/dL (3.5-5.0); Calcium 7.9 mg/dL (8.4-10.2); Potassium 3.8 mmol/L (3.5-5.1); Total Bilirubin 1.2 mg/dL (0.2-1.3); Total Protein 6.8 g/dL (6.3-8.2)
[2022-11-20 18:51] LABS: Amphetamine Screen,Urine Not Detected (NotDetected); Barbiturate Screen,Urine Not Detected (NotDetected); Benzodiazepines Screen,Urine Not Detected (NotDetected); Cocaine Screen,Urine Not Detected (NotDetected); Methadone Screen, Urine Not Detected (NotDetected); Opiate Screen,Urine Detected (NotDetected); Oxycodone Screen, Urine Not Detected (NotDetected); Phencyclidine Screen,Urine Not Detected (NotDetected); Tricyclic Antidepressant,Urine Detected (NotDetected); Urn Cannabinoid Scrn Not Detected (NotDetected)
--- NOTE | 2022-11-20 19:03 | CT ---
EXAMINATION TYPE: CT brain wo con DATE OF EXAM: 11/20/2022 COMPARISON: 10/29/22 HISTORY: AMS CT DLP: 1135.[address] of the brain was performed. The ventricles, basal cisterns and sulci overlying the cerebral convexities demonstrate mild enlargem ent. There is no evidence for intracranial hemorrhage or sulcal effacement. There is decreased attenuation about the periventricular white matter and deep white matter of both c erebral hemispheres, compatible with chronic small vessel ischemia. Differential diagnosis does inclu de demyelination. No mass effects are seen.No midline shift. Osseous calvarium is intact. Mucosal thickening right maxillary sinus. If symptoms persist consider MRI. IMPRESSION: 1. Age related atrophic and chronic small vessel ischemic change without acute intracranial process s een at this time.
[2022-11-20] MEDS ORDERED: NALOXONE 0.4 MG/ML 1 ML VIAL IV PRN (20:54)
[2022-11-20] MEDS ORDERED: IPRATROPIUM-ALBUTEROL 3 ML NEB INHALATION PRN (20:57)
[2022-11-20] MEDS: NORTRIPTYLINE 25 MG CAP PO SCH (22:20)
[2022-11-20] MEDS: METOPROLOL TARTRATE 25 MG TAB PO SCH (22:20)
[2022-11-20] MEDS: SENNOSIDES 8.6 MG TAB PO SCH (22:21)
[2022-11-20] MEDS: SODIUM CHLORIDE 0.9% 1,000 ML IV SCH (22:21)
[2022-11-20] MEDS: methIMAzole 5 MG TAB PO SCH (22:22)
[2022-11-21] MEDS: SODIUM CHLORIDE 0.9% 1,000 ML IV SCH ×3 (05:12→21:41)
[2022-11-21] MEDS: DILTIAZEM 125 MG in SODIUM CHLORIDE 0.9% 100 ML IV SCH (06:15)
[2022-11-21] MEDS: SENNOSIDES 8.6 MG TAB PO SCH ×2 (09:38→21:40)
[2022-11-21] MEDS: DABIGATRAN 150 MG CAP PO SCH ×2 (09:39→16:29)
[2022-11-21] MEDS: PREGABALIN 75 MG CAP PO SCH ×2 (09:39→17:07)
[2022-11-21] MEDS: PANTOPRAZOLE 40 MG TABLET PO SCH (09:39)
[2022-11-21] MEDS: methIMAzole 5 MG TAB PO SCH ×3 (09:39→21:40)
[2022-11-21] MEDS: METOPROLOL TARTRATE 25 MG TAB PO SCH ×2 (09:39→21:40)
[2022-11-21] MEDS: MULTIVITAMINS, THERA 1 EACH TAB PO SCH (09:39)
[2022-11-21] MEDS: LORATADINE 10 MG TAB PO SCH (09:40)
[2022-11-21] MEDS: FERROUS SULFATE 325 MG TAB PO SCH ×2 (09:40→21:40)
[2022-11-21 09:51] LABS: African American GFR (CKD) 81.2 (60.0-200.0); Albumin 2.4 g/dL (3.8-4.9); Albumin/Globulin Ratio 0.63 (1.60-3.17); Anion Gap 13.8 mmol/L (10.00-18.00); BUN/Creat Ratio 23.09 Ratio (12.00-20.00); Blood Urea Nitrogen 25.4 mg/dL (9.0-27.0); C Reactive Protein 11.1 mg/dL (0.00-0.80); Calcium 8.2 mg/dL (8.7-10.3); Carbon Dioxide 24.2 mmol/L (20.0-27.5); Globulin 3.8 g/dL (1.6-3.3); Non-African American GFR(CKD) 70.1 (60.0-200.0); Potassium 3.7 mmol/L (3.5-5.5); Total Bilirubin 0.9 mg/dL (0.30-1.20); Total Protein 6.2 g/dL (6.2-8.2)
[2022-11-21 10:42] LABS: Basophils # (A) 0.04 X 10*3/uL (0.00-0.10); Basophils % (A) 0.4 %; Eosinophils # (A) 0.11 X 10*3/uL (0.04-0.35); Eosinophils % (A) 1.2 %; HCT 34.2 % (39.6-50.0); HGB 10.4 g/dL (13.0-17.0); Immature Grans, Automated 0.8 %; Lymphocytes # (A) 0.81 X 10*3/uL (0.90-5.00); Lymphocytes % (A) 8.5 %; MCH 29.1 pg (27.0-32.0); MCHC 30.4 g/dL (32.0-37.0); MCV 95.8 fL (80.0-97.0); Mean Platelet Volume 10.1 fL (9.5-12.2); Monocytes # (A) 0.67 X 10*3/uL (0.20-1.00); Monocytes % (A) 7.1 %; NRBC Per 100 WBC 0 /100 WBCS (0.0-0.0); Neutrophils # (A) 7.78 X 10*3/uL (1.80-7.70); Platelet Count 310 X 10*3/uL (140-440); RBC 3.57 X 10*6/uL (4.40-5.60); RDW 22.8 % (11.5-14.5); WBC 9.49 X 10*3/uL (4.50-10.00)
[2022-11-21] MEDS: HYDROcodone/APAP 7.5-325MG 1 EACH TAB PO PRN ×2 (10:45→19:14)
[2022-11-21] MEDS ORDERED: DIGOXIN 250 MCG/ML 2 ML AMP IVP ONE ×2 (11:00→17:00)
[2022-11-21] MEDS: MENTHOL TOPICAL SCH (11:11)
[2022-11-21] MEDS: LIDOCAINE TOPICAL SCH (11:11)
--- NOTE | 2022-11-21 12:30 | P.CRDCN ---
History of Present Illness History of present illness: HISTORY OF PRESENT ILLNESS: This is a 67-year-old male with a past medical history significant for congestive heart failure, diabetes, peripheral vascular disease with previous AKA, atrial fibrillation, [place] filter, and nonischemic cardiomyopathy with an ejection fraction around 30%. Patient follows in the office with Dr. Heaton. We have been asked to see the patient in consultation for atrial fibrillation. The patient was brought to the ER from his nursing facility for altered mental status. The patient was seen and examined this morning in the emergency room. The patient denies any chest pain or pressure. He denies shortness of breath. The patient was found to be in A. fib with RVR. Patient was started on IV Cardizem. He remains in atrial fibrillation at the time of examination with heart rates around 110. * EKG reveals atrial fibrillation with mild RVR * Chest xray nonspecific coarse lung markings persistent throughout both lung swartz * Laboratory data: WBC 9.49. Hemoglobin 10.4. Platelet count 310. Sodium 142. Potassium 3.7. BUN 25. Creatinine 1.1. ProBNP 9090. Troponin 0.026. * Current home cardiac medications include Bumex 2 mg the morning and 1 mg in the afternoon, Pradaxa 150 mg twice a day, metoprolol tartrate 75 mg twice a day, Lipitor 80 mg at night * Most recent echocardiogram obtained in October 2022 revealing ejection fraction 35-40%, mild MR, mild TR * Cardiac catheterization history: May 2022 revealing mild CAD including 10-20% RCA and 20-30% LAD stenosis * Patient underwent FLO in October [address] Cantrell secondary to bacteremia with no evidence of vegetation or thrombus. REVIEW OF SYSTEMS: At the time of my exam: CONSTITUTIONAL: Denies fever or chills. HEENT: Denies blurred vision, vision changes, or eye pain. Denies hemoptysis CARDIOVASCULAR: Denies chest pain. Denies orthopnea. Denies PND. Denies palpitations RESPIRATORY: Denies shortness of breath. GASTROINTESTINAL: Denies abdominal pain. Denies nausea or vomiting. HEMATOLOGIC: Denies bleeding disorders. GENITOURINARY: Denies any blood in urine. SKIN: Denies pruitis. Denies rash. PHYSICAL EXAM: VITAL SIGNS: Reviewed. GENERAL: Well-developed in no acute distress. HEENT: Head is normocephalic. Pupils are equal, round. Sclerae anicteric. Mucous membranes of the mouth are moist. Neck supple. No JVD or thyromegaly LUNGS: Respirations even and unlabored. Lungs essentially clear to auscultation bilaterally. HEART: Tachycardic. Irregular rate and rhythm. S1 and S2 heard. ABDOMEN: Soft. Nondistended. Nontender. EXTREMITIES: Normal range of motion. No clubbing or cyanosis. Peripheral pulses intact. Left AKA NEUROLOGIC: Awake and alert. Oriented x 3. ASSESSMENT: Altered mental status Persistent atrial fibrillation with RVR Recent admission for bacteremia with FLO revealing no evidence of vegetation Nonischemic cardiomyopathy Chronic congestive heart failure with reduced EF Peripheral vascular disease History of left AKA History of pulmonary embolism and Z[place] filter History of mild nonobstructive CAD PLAN: Resume home cardiac medications Continue current dose of metoprolol Add digoxin IV 2 doses today and begin oral dosing tomorrow Wean off Cardizem drip as tolerated Continue telemetry monitoring Further recommendations pending patient's course Nurse practitioner note has been reviewed by physician. Signing provider agrees with the documented findings, assessment, and plan of care. Past Medical History Past Medical History: Atrial Fibrillation, Asthma, COPD, CVA/TIA, Diabetes Mellitus, Deep Vein Thrombosis (DVT), GERD/Reflux, Hyperlipidemia, Hypertension, Neurologic Disorder, Osteoarthritis (OA), Pneumonia, Pulmonary Embolus (PE), Skin Disorder, Vascular Disorder Additional Past Medical History / Comment(s): Pt admitted to [facility] on 11/20/20 with hyperkalemia, hyperglycemia, uncontrolled diabetes. Other hx: Lupus anticoagulant, DVTs bilateral legs, PEs bilateral lungs in , pt has zina filter, L AKA/wheelchair bound, NIDDM type II, neuropathy bilateral hands, wound care patient for buttock wound, now healed, TIAs, pneumothorax, past migraines, chronic low back pain, R leg edema at times, varicosities. History of Any Multi-Drug Resistant Organisms: MRSA Date of last positivie culture/infection: 10/30/2022 MDRO Source:: Bacteremia Past Surgical History: Adenoidectomy, Appendectomy, Tonsillectomy Additional Past Surgical History / Comment(s): [place] filter, stents in vessels "in pelvic area", total L hip arthroplasty, vein strippings, colonoscopy. left leg amputation Past Anesthesia/Blood Transfusion Reactions: No Reported Reaction Additional Past Anesthesia/Blood Transfusion Reaction / Comment(s): Pt has received blood in past without reaction. Past Psychological History: No Psychological Hx Reported Smoking Status: Former smoker Past Alcohol Use History: None Reported Past Drug Use History: None Reported - Past Family History Mother Family Medical History: Coronary Artery Disease (CAD), Myocardial Infarction ([place]), Vascular Disorder Additional Family Medical History / Comment(s): heart disease, peripheral vascular disease. Father Family Medical History: Diabetes Mellitus, Renal Disease Medications and Allergies Home Medications Medication Instructions Recorded Confirmed Type Atorvastatin [Lipitor] 80 mg PO HS 08/27/22 11/20/22 History Loratadine 10 mg PO DAILY 08/27/22 11/20/22 History Dabigatran [Pradaxa] 150 mg PO BID@0800,1600 10/28/22 11/20/22 History Ferrous Sulfate [Iron (65 MG 325 mg PO BID 10/28/22 11/20/22 History Elemental)] Omeprazole [PriLOSEC] 20 mg PO DAILY 10/28/22 11/20/22 History Sennosides [Senokot] 8.6 mg PO BID 10/28/22 11/20/22 History Bumetanide [BUMEX] 1 mg PO DAILY@1600 tab 11/09/22 11/20/22 Rx Bumetanide [BUMEX] 2 mg PO DAILY tab 11/09/22 11/20/22 Rx Insulin Detemir (Levemir) [Levemir] 14 unit SQ HS each 11/09/22 11/20/22 Rx Ipratropium-Albuterol Nebulize 3 ml INHALATION RT-Q6H PRN each 11/09/22 11/20/22 Rx [Duoneb 0.5 mg-3 mg/3 ml Soln] methIMAzole [Tapazole] 5 mg PO TID tab 11/09/22 11/20/22 Rx Acetaminophen Tab [Tylenol] 650 mg PO Q6H PRN 11/20/22 11/20/22 History HYDROcodone/APAP 7.5-325MG [[place] 1 tab PO Q6HR PRN 11/20/22 11/20/22 History 7.5-325] Healthshake 1 dose PO TID@0800,1200,1800 11/20/22 11/20/22 History INSULIN ASPART (NovoLOG) [NovoLOG See Protocol SQ ACHS@06,11,16,20 11/20/22 11/20/22 History (formulary)] Lidocaine-Menthol 3.6-1.25% Patches 1 patch TOPICAL DAILY@0800 11/20/22 11/20/22 History Metoprolol Tartrate [Lopressor] 75 mg PO BID 11/20/22 11/20/22 History Multivitamins, Thera [Multivitamin 1 tab PO DAILY@0800 11/20/22 11/20/22 History (formulary)] Nortriptyline HCl 75 mg PO HS 11/20/22 11/20/22 History Pregabalin [Lyrica] 150 mg PO BID@0800,1600 11/20/22 11/20/22 History Allergies Allergy/AdvReac Type Severity Reaction Status Date / Time baclofen Allergy Unknown Verified 11/20/22 19:09 Iodinated Contrast Media Allergy Unknown Verified 11/20/22 19:09 sulfamethoxazole Allergy Unknown Verified 11/20/22 19:09 [From Bactrim] trimethoprim [From Bactrim] Allergy Unknown Verified 11/20/22 19:09 apixaban [From Eliquis] AdvReac "felt Verified 11/20/22 19:09 funny" Physical Exam Vitals: Vital Signs Temp Pulse Resp BP Pulse Ox 11/21/22 07:50 99 11/21/22 07:20 113 H 18 117/93 98 11/21/22 07:00 110 H 112/96 99 11/21/22 06:35 113 H 16 116/86 11/21/22 06:00 111 H 16 135/82 98 11/21/22 05:50 114 H 15 135/82 99 11/21/22 05:40 114 H 16 125/87 98 11/21/22 05:30 117 H 15 128/81 98 11/21/22 05:20 113 H 16 128/81 98 11/21/22 05:10 114 H 15 132/81 98 11/21/22 05:00 113 H 15 126/94 98 11/21/22 04:50 103 H 17 126/94 97 11/21/22 04:46 105 H 16 126/94 98 11/21/22 04:40 109 H 14 106/83 98 11/21/22 04:30 112 H 15 115/64 98 11/21/22 04:20 116 H 15 115/64 97 11/21/22 04:10 112 H 15 114/80 97 11/21/22 04:00 133 H 17 172/154 96 11/21/22 03:50 112 H 21 172/154 95 11/21/22 03:40 115 H 24 96/80 96 11/21/22 03:34 120 H 16 96/80 95 11/21/22 03:20 113 H 17 109/86 95 11/21/22 03:10 118 H 15 121/73 95 11/21/22 03:00 115 H 16 108/82 94 L 11/21/22 02:50 110 H 16 108/82 94 L 11/21/22 02:40 117 H 17 130/93 96 11/21/22 02:30 126 H 12 125/91 95 11/21/22 02:20 116 H 12 125/91 99 11/21/22 02:10 118 H 19 95 11/21/22 02:00 138 H 17 126/95 84 L 11/21/22 01:50 108 H 22 126/95 99 11/21/22 01:40 113 H 15 125/87 98 11/21/22 01:30 111 H 14 127/84 98 11/21/22 01:20 105 H 15 127/84 100 11/21/22 01:10 112 H 17 93/73 100 11/21/22 01:00 106 H 13 120/75 99 11/21/22 00:50 108 H 16 120/75 100 11/21/22 00:40 108 H 15 105/80 11/21/22 00:30 108 H 14 119/82 11/21/22 00:20 98 17 119/82 100 11/21/22 00:10 107 H 15 131/78 100 11/21/22 00:00 105 H 15 121/84 11/20/22 23:50 94 15 121/84 96 11/20/22 23:40 112 H 15 126/86 11/20/22 23:30 100 14 100/81 98 11/20/22 23:20 111 H 15 100/81 11/20/22 23:11 106 H 18 121/76 98 11/20/22 23:10 107 H 15 121/76 11/20/22 23:00 104 H 13 120/81 11/20/22 22:50 100 16 120/81 11/20/22 22:40 104 H 15 127/79 11/20/22 22:30 105 H 15 111/86 99 11/20/22 22:20 106 H 15 111/86 100 11/20/22 22:10 105 H 15 106/79 11/20/22 22:06 105 H 16 106/79 100 11/20/22 22:00 107 H 15 121/80 100 11/20/22 21:50 126 H 15 121/80 100 11/20/22 19:43 96 18 127/85 97 11/20/22 17:54 96.8 F L 107 H 20 123/103 100 Intake and Output 11/20/22 11/21/22 11/21/22 22:59 06:59 14:59 Other: Weight 90.718 kg Results 11/21/22 05:27 11/21/22 05:27 Cardiac Enzymes 11/20/22 11/20/22 Range/Units 18:07 18:07 AST 40 (17-59) U/L Troponin I 0.026 (0.000-0.034) ng/mL Coagulation 11/20/22 Range/Units 18:07 PT 15.0 H (9.0-12.0) sec APTT 44.8 H (22.0-30.0) sec CBC 11/20/22 Range/Units 18:07 WBC 10.4 (3.8-10.6) k/uL RBC 3.74 L (4.30-5.90) m/uL Hgb 11.0 L (13.0-17.5) gm/dL Hct 34.7 L (39.0-53.0) % Plt Count 325 (150-450) k/uL Comprehensive Metabolic Panel 11/20/22 Range/Units 18:07 Sodium 140 (137-145) mmol/L Potassium 3.8 (3.5-5.1) mmol/L Chloride 101 (98-107) mmol/L Carbon Dioxide 31 H (22-30) mmol/L BUN 30 H (9-20) mg/dL Creatinine 1.19 (0.66-1.25) mg/dL Glucose 91 (74-99) mg/dL Calcium 7.9 L (8.4-10.2) mg/dL AST 40 (17-59) U/L ALT 27 (4-49) U/L Alkaline Phosphatase 153 H (38-126) U/L Total Protein 6.8 (6.3-8.2) g/dL Albumin 2.7 L (3.5-5.0) g/dL Current Medications Generic Name Dose Route Start Last Admin Trade Name Freq PRN Reason Stop Dose Admin Albuterol/Ipratropium 3 ml 11/20/22 20:57 Ipratropium-Albuterol 3 Ml Neb INHALATION RT-Q6H PRN Shortness Of Breath Atorvastatin Calcium 80 mg 11/21/22 21:00 Atorvastatin 80 Mg Tab PO HS [facility] Bumetanide 1 mg 11/21/22 16:00 Bumetanide 1 Mg Tab PO DAILY@1600 [facility] Dabigatran 150 mg 11/21/22 08:00 Dabigatran 150 Mg Cap PO BID@0800,1600 [facility] Protocol Ferrous Sulfate 325 mg 11/21/22 09:00 Ferrous Sulfate 325 Mg Tab PO BID [facility] Sodium Chloride 1,000 mls @ 130 mls/hr 11/20/22 21:00 11/21/22 05:12 Saline 0.9% IV Not Given .[id number] [facility] Diltiazem HCl 125 mg/ Sodium 125 mls @ 5 mls/hr 11/21/22 06:15 11/21/22 06:15 Chloride IV 5 mg/hr .Q24H [facility] 5 mls/hr Administration 5 MG/HR Insulin Detemir 14 unit 11/21/22 21:00 Insulin Detemir (Levemir) 100 Unit/Ml Syr SQ HS [facility] Loratadine 10 mg 11/21/22 09:00 Loratadine 10 Mg Tab PO DAILY [facility] Methimazole 5 mg 11/20/22 22:00 11/20/22 22:22 Methimazole 5 Mg Tab PO Not Given TID [facility] Metoprolol Tartrate 75 mg 11/20/22 21:00 11/20/22 22:20 Metoprolol Tartrate 25 Mg Tab PO Not Given BID [facility] Multivitamins 1 each 11/21/22 08:00 Multivitamins, Thera 1 Each Tab PO DAILY@0800 [facility] Naloxone HCl 0.2 mg 11/20/22 20:54 Naloxone 0.4 Mg/Ml 1 Ml Vial IV Q2M PRN Opioid Reversal Lidocaine-Menthol 3. 1 patch 11/21/22 08:00 6-1.25% Patches 1 TOPICAL Patch DAILY@0800 [facility] Nortriptyline HCl 75 mg 11/20/22 21:00 11/20/22 22:20 Nortriptyline 25 Mg Cap PO Not Given HS [facility] Pantoprazole Sodium 40 mg 11/21/22 07:30 Pantoprazole 40 Mg Tablet PO DAILY@0730 [facility] Pregabalin 150 mg 11/21/22 08:00 Pregabalin 75 Mg Cap PO BID@0800,1600 [facility] Senna 8.6 mg 11/20/22 21:00 11/20/22 22:21 Sennosides 8.6 Mg Tab PO Not Given BID [facility] Intake and Output 11/20/22 11/21/22 11/21/22 22:59 06:59 14:59 Other: Weight 90.718 kg 11/20/22 18:07 11/20/22 18:07
[2022-11-21 14:41] LABS: Appearance,Urine Cloudy (Clear); Bacteria,Urine Occasional /hpf; Bilirubin,Urine Negative (Negative); Blood,Urine Moderate (Negative); Budding Yeast,Urine Many /hpf; Color,Urine Yellow; Glucose,Urine (UA) Negative (Negative); Ketones,Urine Negative (Negative); Leukocyte Esterase,Urine Large (Negative); Mucus,Urine Rare /hpf; Nitrite,Urine Negative (Negative); PH, Urine 5.5 (5.0-8.0); Protein,Urine 1+ (Negative); RBC,Urine 38 /hpf (0-5); WBC,Urine >182 /hpf (0-5)
[2022-11-21] MEDS: BUMETANIDE 1 MG TAB PO SCH (16:29)
--- NOTE | 2022-11-21 16:33 | P.CNNES ---
History of Present Illness Consult date: 11/21/22 Requesting physician: Max Marte Reason for Consult: Altered mental status History of Present Illness: Patient is a 67-year-old right-handed male, who was recently seen in Hospital consultation for altered mental status, which was felt to be related to toxic metabolic encephalopathy. Patient now came back to the hospital for "altered mental status". Patient states that he does not know why he came to the hospital. Per nursing report, patient is at baseline is alert and oriented 2. He sometimes gets hallucinations, but often can answer questions appropriately. When he arrived, he was in atrial fibrillation with rapid ventricular rate. Patient is on Cardizem drip. Per EMS flow sheet, when they arrived to the halfway, patient was laying down in the bed, slightly elevated at the head and known alert to EMS arrival. Nursing staff explained the patient normally is alert and oriented to person and place but was only responsive to painful stimuli at the time. The patient has returned to the halfway 4 hours prior from [facility]. The patient was seen in the morning for becoming uncooperative and combative with the staff. Patient was treated for low blood sugar and UTI. Vital signs at the scene was blood pressure 135/95, pulse rate 53 respirations 16 saturation 72% Blood test on arrival WBC 10.4 hemoglobin 11.0, platelets 325. INR 1.5, PTT 44.8, Chem-20 normal, troponin negative, ammonia is <9, lipase normal, UA shows large amount of leukocyte Estrace, 38 RBC and > 182 WBC with few clumps and occasional bacteria. Urine drug screen positive for opiates and tricyclic. CT head showed age-related atrophic and chronic small vessel ischemic change without acute intracranial process. I personally reviewed CT head commonly with the findings. Chest x-ray showed nonspecific coarse lung markings persist throughout both lung swartz. EKG showed atrial fibrillation with aberrant conduction or ventricular premature complexes. Review of Systems Constitutional: Denies chills, Denies fever Eyes: denies blurred vision, denies pain Ears: deny: decreased hearing, earache Ears, nose, mouth and throat: Denies headache, Denies sore throat Cardiovascular: Denies chest pain, Denies shortness of breath Respiratory: Denies cough, Denies excessive sputum Gastrointestinal: Denies abdominal pain, Denies diarrhea, Denies nausea, Denies vomiting Musculoskeletal: Denies myalgias, Denies neck pain Neurological: Reports as per HPI Psychiatric: Reports irritability, Reports mood swings Endocrine: Reports fatigue, Denies weight change Past Medical History Past Medical History: Atrial Fibrillation, Asthma, COPD, CVA/TIA, Diabetes Mellitus, Deep Vein Thrombosis (DVT), GERD/Reflux, Hyperlipidemia, Hypertension, Neurologic Disorder, Osteoarthritis (OA), Pneumonia, Pulmonary Embolus (PE), Skin Disorder, Vascular Disorder Additional Past Medical History / Comment(s): Pt admitted to [facility] on 11/20/20 with hyperkalemia, hyperglycemia, uncontrolled diabetes. Other hx: Lupus anticoagulant, DVTs bilateral legs, PEs bilateral lungs in , pt has zina filter, L AKA/wheelchair bound, NIDDM type II, neuropathy bilateral hands, wound care patient for buttock wound, now healed, TIAs, pneumothorax, past migraines, chronic low back pain, R leg edema at times, varicosities. History of Any Multi-Drug Resistant Organisms: MRSA Date of last positivie culture/infection: 10/30/2022 MDRO Source:: Bacteremia Past Surgical History: Adenoidectomy, Appendectomy, Tonsillectomy Additional Past Surgical History / Comment(s): Zina filter, stents in vessels "in pelvic area", total L hip arthroplasty, vein strippings, colonoscopy. left leg amputation Past Anesthesia/Blood Transfusion Reactions: No Reported Reaction Additional Past Anesthesia/Blood Transfusion Reaction / Comment(s): Pt has received blood in past without reaction. Past Psychological History: No Psychological Hx Reported Smoking Status: Former smoker Past Alcohol Use History: None Reported Past Drug Use History: None Reported - Past Family History Mother Family Medical History: Coronary Artery Disease (CAD), Myocardial Infarction (OK), Vascular Disorder Additional Family Medical History / Comment(s): heart disease, peripheral vascular disease. Father Family Medical History: Diabetes Mellitus, Renal Disease Medications and Allergies Home Medications Medication Instructions Recorded Confirmed Type Atorvastatin [Lipitor] 80 mg PO HS 08/27/22 11/20/22 History Loratadine 10 mg PO DAILY 08/27/22 11/20/22 History Dabigatran [Pradaxa] 150 mg PO BID@0800,1600 10/28/22 11/20/22 History Ferrous Sulfate [Iron (65 MG 325 mg PO BID 10/28/22 11/20/22 History Elemental)] Omeprazole [PriLOSEC] 20 mg PO DAILY 10/28/22 11/20/22 History Sennosides [Senokot] 8.6 mg PO BID 10/28/22 11/20/22 History Bumetanide [BUMEX] 1 mg PO DAILY@1600 tab 11/09/22 11/20/22 Rx Bumetanide [BUMEX] 2 mg PO DAILY tab 11/09/22 11/20/22 Rx Insulin Detemir (Levemir) [Levemir] 14 unit SQ HS each 11/09/22 11/20/22 Rx Ipratropium-Albuterol Nebulize 3 ml INHALATION RT-Q6H PRN each 11/09/22 11/20/22 Rx [Duoneb 0.5 mg-3 mg/3 ml Soln] methIMAzole [Tapazole] 5 mg PO TID tab 11/09/22 11/20/22 Rx Acetaminophen Tab [Tylenol] 650 mg PO Q6H PRN 11/20/22 11/20/22 History HYDROcodone/APAP 7.5-325MG [[place] 1 tab PO Q6HR PRN 11/20/22 11/20/22 History 7.5-325] Healthshake 1 dose PO TID@0800,1200,1800 11/20/22 11/20/22 History INSULIN ASPART (NovoLOG) [NovoLOG See Protocol SQ ACHS@06,11,16,20 11/20/22 11/20/22 History (formulary)] Lidocaine-Menthol 3.6-1.25% Patches 1 patch TOPICAL DAILY@0800 11/20/22 11/20/22 History Metoprolol Tartrate [Lopressor] 75 mg PO BID 11/20/22 11/20/22 History Multivitamins, Thera [Multivitamin 1 tab PO DAILY@0800 11/20/22 11/20/22 History (formulary)] Nortriptyline HCl 75 mg PO HS 11/20/22 11/20/22 History Pregabalin [Lyrica] 150 mg PO BID@0800,1600 11/20/22 11/20/22 History Allergies Allergy/AdvReac Type Severity Reaction Status Date / Time baclofen Allergy Unknown Verified 11/20/22 19:09 Iodinated Contrast Media Allergy Unknown Verified 11/20/22 19:09 sulfamethoxazole Allergy Unknown Verified 11/20/22 19:09 [From Bactrim] trimethoprim [From Bactrim] Allergy Unknown Verified 11/20/22 19:09 apixaban [From Eliquis] AdvReac "felt Verified 11/20/22 19:09 funny" Physical Examination - Vital Signs Vital Signs: Vital Signs Temp Pulse Resp BP Pulse Ox 11/21/22 16:00 85 18 91/54 93 L 11/21/22 12:15 90 18 110/79 94 L 11/21/22 11:10 92 18 119/77 92 L 11/21/22 10:46 95 18 103/82 94 L 11/21/22 08:22 120 H 18 119/78 99 11/21/22 07:50 99 11/21/22 07:20 113 H 18 117/93 98 11/21/22 07:00 110 H 112/96 99 11/21/22 06:35 113 H 16 116/86 11/21/22 06:00 111 H 16 135/82 98 11/21/22 05:50 114 H 15 135/82 99 11/21/22 05:40 114 H 16 125/87 98 11/21/22 05:30 117 H 15 128/81 98 11/21/22 05:20 113 H 16 128/81 98 11/21/22 05:10 114 H 15 132/81 98 11/21/22 05:00 113 H 15 126/94 98 11/21/22 04:50 103 H 17 126/94 97 11/21/22 04:46 105 H 16 126/94 98 11/21/22 04:40 109 H 14 106/83 98 11/21/22 04:30 112 H 15 115/64 98 11/21/22 04:20 116 H 15 115/64 97 11/21/22 04:10 112 H 15 114/80 97 11/21/22 04:00 133 H 17 172/154 96 11/21/22 03:50 112 H 21 172/154 95 11/21/22 03:40 115 H 24 96/80 96 11/21/22 03:34 120 H 16 96/80 95 11/21/22 03:20 113 H 17 109/86 95 11/21/22 03:10 118 H 15 121/73 95 11/21/22 03:00 115 H 16 108/82 94 L 11/21/22 02:50 110 H 16 108/82 94 L 11/21/22 02:40 117 H 17 130/93 96 11/21/22 02:30 126 H 12 125/91 95 11/21/22 02:20 116 H 12 125/91 99 11/21/22 02:10 118 H 19 95 11/21/22 02:00 138 H 17 126/95 84 L 11/21/22 01:50 108 H 22 126/95 99 11/21/22 01:40 113 H 15 125/87 98 11/21/22 01:30 111 H 14 127/84 98 11/21/22 01:20 105 H 15 127/84 100 11/21/22 01:10 112 H 17 93/73 100 11/21/22 01:00 106 H 13 120/75 99 11/21/22 00:50 108 H 16 120/75 100 11/21/22 00:40 108 H 15 105/80 11/21/22 00:30 108 H 14 119/82 11/21/22 00:20 98 17 119/82 100 11/21/22 00:10 107 H 15 131/78 100 11/21/22 00:00 105 H 15 121/84 11/20/22 23:50 94 15 121/84 96 11/20/22 23:40 112 H 15 126/86 11/20/22 23:30 100 14 100/81 98 11/20/22 23:20 111 H 15 100/81 11/20/22 23:11 106 H 18 121/76 98 11/20/22 23:10 107 H 15 121/76 11/20/22 23:00 104 H 13 120/81 11/20/22 22:50 100 16 120/81 11/20/22 22:40 104 H 15 127/79 11/20/22 22:30 105 H 15 111/86 99 11/20/22 22:20 106 H 15 111/86 100 11/20/22 22:10 105 H 15 106/79 11/20/22 22:06 105 H 16 106/79 100 11/20/22 22:00 107 H 15 121/80 100 11/20/22 21:50 126 H 15 121/80 100 11/20/22 19:43 96 18 127/85 97 05/14/23 17:54 96.8 F L 107 H 20 123/103 100 Patient is an elderly male, in no acute distress. Patient is not in a good mood. Patient is alert awake oriented to time place and person. Patient knows it is November 2022 and that he is in [facility] in [place] in [facility]. He knows name of the current president. Also knows his age, date of all correctly. Speech and language functions are normal. Patient can name and re peat very well. No aphasia or dysarthria. Attention, concentration and fund of knowledge is adequate. Detail testing deferred. On cranial nerve examination, pupils are equal, round and reacting to light, visual swartz are full on confrontation, with no neglect on double simultaneous stimulation. Extraocular muscles are intact with no nystagmus. Face is symmetric, tongue protrudes to the midline. Palatal elevation and sensation normal, hearing and shoulder shrug normal, facial sensation normal. On muscle strength testing, there is no pronator drift and the strength is normal in both arms distally and proximally. Patient said he could not move his right foot but was able to wiggle it very well and had good strength for ankle dorsiflexion and plantarflexion. Likewise his hip flexion was at least 4+5-. Patient has left AKA. No myoclonic jerks of outstretched hands noticed. Slight tremulousness. Deep tendon reflexes are symmetric 1 at the biceps, 1 at the brachioradialis, ab sent at the right knee, plantar is flat. Sensory to touch is equal with no neglect on double simultaneous stimulation. Cerebellar function showed no ataxia for [id number] testing. Patient is sl ightly tremulous. No dysdiadochokinesia. Patient cannot perform [id number] testing. Patient has slight atrophy of the interosseous muscles bilaterally. Gait patient nonambulatory. On general examination, there is no carotid bruit or murmur, S1-S2 audible. Chest is clear on consultation. Abdomen is soft nontender. No organomegaly, bowel sounds present. Patient has trophic skin changes, with hyperpigmentation in the right lower extremity. Patient has left AKA. Results - Laboratory Findings CBC and BMP: 11/21/22 05:27 11/21/22 05:27 Abnormal Lab Findings: Abnormal Labs 11/20/22 11/20/22 11/20/22 18:07 18:07 18:07 RBC 3.74 L Hgb 11.0 L Hct 34.7 L MCHC RDW 21.1 H Immature Gran # Neutrophils # 8.3 H Lymphocytes # PT 15.0 H INR 1.5 H APTT 44.8 H Carbon Dioxide BUN BUN/Creatinine Ratio Calcium Alkaline Phosphatase C-Reactive Protein Albumin Globulin Albumin/Globulin Ratio Lipase Procalcitonin Urine Protein Urine Blood Ur Leukocyte Esterase Urine RBC Urine WBC Urine WBC Clumps Urine Bacteria Urine Mucus Urine Yeast (Budding) Urine Opiates Screen Detected H U Tricyclic Antidepress Detected H 11/20/22 11/20/22 11/21/22 18:07 18:07 05:27 RBC Hgb Hct MCHC RDW Immature Gran # Neutrophils # Lymphocytes # PT INR APTT Carbon Dioxide 31 H BUN 30 H BUN/Creatinine Ratio Calcium 7.9 L Alkaline Phosphatase 153 H C-Reactive Protein Albumin 2.7 L Globulin Albumin/Globulin Ratio Lipase 15 L Procalcitonin 0.10 H Urine Protein 1+ H Urine Blood Moderate H Ur Leukocyte Esterase Large H Urine RBC 38 H Urine WBC >182 H Urine WBC Clumps Few H Urine Bacteria Occasional H Urine Mucus Rare H Urine Yeast (Budding) Many H Urine Opiates Screen U Tricyclic Antidepress 11/21/22 11/21/22 05:27 05:27 RBC 3.57 L Hgb 10.4 L Hct 34.2 L MCHC 30.4 L RDW 22.8 H Immature Gran # 0.08 H Neutrophils # 7.78 H Lymphocytes # 0.81 L PT INR APTT Carbon Dioxide BUN BUN/Creatinine Ratio 23.09 H Calcium 8.2 L Alkaline Phosphatase 142 H C-Reactive Protein 11.10 H Albumin 2.4 L Globulin 3.8 H Albumin/Globulin Ratio 0.63 L Lipase Procalcitonin Urine Protein Urine Blood Ur Leukocyte Esterase Urine RBC Urine WBC Urine WBC Clumps Urine Bacteria Urine Mucus Urine Yeast (Budding) Urine Opiates Screen U Tricyclic Antidepress Assessment and Plan Assessment: * Altered mental status likely due to mild delirium, currently stable. Patient is fully oriented, appears appropriate at this time. * Acute UTI * Bacteremia with MRSA. * History of atrial fibrillation, on Pradaxa * History of migraine * Diabetes * Chronic renal disease * Hypertension * Hyperlipidemia * History of left above-knee amputation. * History of pulmonary embolism, status post Zina filter placement. Plan: * Patient's mentation is normal. He is fully oriented. There is no evidence of any myoclonic jerks. His examination is completely stable. * Neurologically, no other workup indicated. Patient is clear from neurology standpoint. * Treatment of UTI as per IM. * Previous workup as below: * Carotid Doppler revealed no evidence for hemodynamically significant stenosis. Antegrade flow in both vertebral arteries. * 2-D echo revealed moderately impaired left ventricle systolic function with EF 35-40%. Moderate LVH, moderately increased left atrial area. Moderate pulmonary hypertension. * FLO performed 11/04/2022 revealed normal aortic valve with mild AR. Mitral valves are normal. Left atrial appendage is free of any thrombus. Left ventricular ejection fraction 35%. Moderate biatrial enlargement. No evidence of vegetation. Extensive smoke noted throughout examination. * Patient has atrial fibrillation. Continue Pradaxa. * Hemoglobin A1c 8.6. Optimize control of diabetes to target A1c <7.0 * Lipid panel with cholesterol 123, LDL 75, HDL 37 and triglycerides 52. Co ntinue Lipitor 80 mg daily. * TSH normal. * Neurologically clear. Thank you for the consult.
[2022-11-21] MEDS: DAPTOmycin 500 MG in SODIUM CHLORIDE 0.9% 50 ML IVPB SCH (19:13)
[2022-11-21] MEDS: NORTRIPTYLINE 25 MG CAP PO SCH (21:40)
[2022-11-21] MEDS: ATORVASTATIN 80 MG TAB PO SCH (21:40)
[2022-11-21] MEDS: INSULIN ASPART (NovoLOG) 100 UNIT/ML VIAL SQ SCH (21:41)
[2022-11-21] MEDS: INSULIN DETEMIR (LEVEMIR) 100 UNIT/ML SYR SQ SCH (21:42)
--- NOTE | 2022-11-21 22:02 | P.CONS ---
History of Present Illness - Reason for Consult Consult date: 11/21/22 Antibiotic selection Requesting physician: Max Marte - Chief Complaint Mental status changes x one day - History of Present Illness Patient is a 67-year-old male with multiple comorbidity recently admitted to this facility with the patient did have MRSA bacteremia patient did have a extensive work-up including echocardiogram FLO WBC scan all of them were negative for any deep infection patient blood culture were negative as of 11/03/2022 as well as 11/04 and 11/05/2022 patient did get the midline and was advised a 2-week course of IV daptomycin on discharge which the patient is currently receiving at the local group home patient has been brought to the ER for mental status changes the patient also noticed to have a new right bundle branch findings on EKG patient did not recall what happened and on presentation to the hospital the patient was afebrile and no fever have been ordered subsequently patient did have a normal white count kidney function has been normal liver enzymes are normal did have a positive UA urine screen was positive for tricyclic and opiates patient did have a chest x-ray nonspecific coarse lung markings CT of the brain was negative for any bleed patient has been continued on daptomycin infectious he was consulted for further management of antibiotic therapy patient at the time my evaluation denies having any headache he is aware that he is in the hospital no URI symptoms no chest pain or shortness with occasional cough no nausea no vomiting no abdominal pain no diarrhea Review of Systems Positive point and negatives has been mentioned in the HPI, complete review of systems was performed and all other systems are negative Past Medical History Past Medical History: Atrial Fibrillation, Asthma, COPD, CVA/TIA, Diabetes Mellitus, Deep Vein Thrombosis (DVT), GERD/Reflux, Hyperlipidemia, Hypertension, Neurologic Disorder, Osteoarthritis (OA), Pneumonia, Pulmonary Embolus (PE), Skin Disorder, Vascular Disorder Additional Past Medical History / Comment(s): Pt admitted to [facility] on 11/20/20 with hyperkalemia, hyperglycemia, uncontrolled diabetes. Other hx: Lupus anticoagulant, DVTs bilateral legs, PEs bilateral lungs in , pt has zina filter, L AKA/wheelchair bound, NIDDM type II, neuropathy bilateral hands, wound care patient for buttock wound, now healed, TIAs, pneumothorax, past migraines, chronic low back pain, R leg edema at times, varicosities. History of Any Multi-Drug Resistant Organisms: MRSA Year Discovered:: 10/30/2022 MDRO Source:: Bacteremia Past Surgical History: Adenoidectomy, Appendectomy, Tonsillectomy Additional Past Surgical History / Comment(s): 1980s [place] filter, stents in vessels "in pelvic area", total L hip arthroplasty, vein strippings, col onoscopy. left leg amputation Past Anesthesia/Blood Transfusion Reactions: No Reported Reaction Additional Past Anesthesia/Blood Transfusion Reaction / Comm: Pt has received blood in past without reaction. Past Psychological History: No Psychological Hx Reported Smoking Status: Former smoker Past Alcohol Use History: None Reported Past Drug Use History: None Reported - Past Family History Mother Family Medical History: Coronary Artery Disease (CAD), Myocardial Infarction ([place]), Vascular Disorder Additional Family Medical History / Comment(s): heart disease, peripheral vascular disease. Father Family Medical History: Diabetes Mellitus, Renal Disease Medications and Allergies Home Medications Medication Instructions Recorded Confirmed Type Atorvastatin [Lipitor] 80 mg PO HS 08/27/22 11/20/22 History Loratadine 10 mg PO DAILY 08/27/22 11/20/22 History Dabigatran [Pradaxa] 150 mg PO BID@0800,1600 10/28/22 11/20/22 History Ferrous Sulfate [Iron (65 MG 325 mg PO BID 10/28/22 11/20/22 History Elemental)] Omeprazole [PriLOSEC] 20 mg PO DAILY 10/28/22 11/20/22 History Sennosides [Senokot] 8.6 mg PO BID 10/28/22 11/20/22 History Bumetanide [BUMEX] 1 mg PO DAILY@1600 tab 11/09/22 11/20/22 Rx Ipratropium-Albuterol Nebulize 3 ml INHALATION RT-Q6H PRN each 11/09/22 11/20/22 Rx [Duoneb 0.5 mg-3 mg/3 ml Soln] methIMAzole [Tapazole] 5 mg PO TID tab 11/09/22 11/20/22 Rx Acetaminophen Tab [Tylenol] 650 mg PO Q6H PRN 11/20/22 11/20/22 History Healthshake 1 dose PO TID@0800,1200,1800 11/20/22 11/20/22 History INSULIN ASPART (NovoLOG) [NovoLOG See Protocol SQ ACHS@06,11,16,20 11/20/22 11/20/22 History (formulary)] Lidocaine-Menthol 3.6-1.25% Patches 1 patch TOPICAL DAILY@0800 11/20/22 11/20/22 History Metoprolol Tartrate [Lopressor] 75 mg PO BID 11/20/22 11/20/22 History Multivitamins, Thera [Multivitamin 1 tab PO DAILY@0800 11/20/22 11/20/22 History (formulary)] Nortriptyline HCl 75 mg PO HS 11/20/22 11/20/22 History Pregabalin [Lyrica] 150 mg PO BID@0800,1600 11/20/22 11/20/22 History DAPTOmycin [Cubicin] 500 mg IVPB Q24HR@1800 10 Days #10 11/28/22 Rx each Digoxin [Lanoxin] 125 mcg PO DAILY tab 11/28/22 Rx Fluconazole [Diflucan] 100 mg PO DAILY 10 Days #10 tab 11/28/22 Rx HYDROcodone/APAP 7.5-325MG [[place] 1 each PO Q6HR PRN tab 11/28/22 Rx 7.5-325] Allergies Allergy/AdvReac Type Severity Reaction Status Date / Time baclofen Allergy Unknown Verified 11/20/22 19:09 Iodinated Contrast Media Allergy Unknown Verified 11/20/22 19:09 sulfamethoxazole Allergy Unknown Verified 11/20/22 19:09 [From Bactrim] trimethoprim [From Bactrim] Allergy Unknown Verified 11/20/22 19:09 apixaban [From Eliquis] AdvReac "felt Verified 11/20/22 19:09 funny" Physical Exam Vitals: Vital Signs Temp Pulse Resp BP Pulse Ox 11/21/22 08:22 120 H 18 119/78 99 11/21/22 07:50 99 11/21/22 07:20 113 H 18 117/93 98 11/21/22 07:00 110 H 112/96 99 11/21/22 06:35 113 H 16 116/86 11/21/22 06:00 111 H 16 135/82 98 11/21/22 05:50 114 H 15 135/82 99 11/21/22 05:40 114 H 16 125/87 98 11/21/22 05:30 117 H 15 128/81 98 05/15/23 05:20 113 H 16 128/81 98 11/21/22 05:10 114 H 15 132/81 98 11/21/22 05:00 113 H 15 126/94 98 11/21/22 04:50 103 H 17 126/94 97 11/21/22 04:46 105 H 16 126/94 98 11/21/22 04:40 109 H 14 106/83 98 11/21/22 04:30 112 H 15 115/64 98 11/21/22 04:20 116 H 15 115/64 97 11/21/22 04:10 112 H 15 114/80 97 11/21/22 04:00 133 H 17 172/154 96 11/21/22 03:50 112 H 21 172/154 95 11/21/22 03:40 115 H 24 96/80 96 11/21/22 03:34 120 H 16 96/80 95 11/21/22 03:20 113 H 17 109/86 95 11/21/22 03:10 118 H 15 121/73 95 11/21/22 03:00 115 H 16 108/82 94 L 11/21/22 02:50 110 H 16 108/82 94 L 11/21/22 02:40 117 H 17 130/93 96 11/21/22 02:30 126 H 12 125/91 95 11/21/22 02:20 116 H 12 125/91 99 11/21/22 02:10 118 H 19 95 11/21/22 02:00 138 H 17 126/95 84 L 11/21/22 01:50 108 H 22 126/95 99 11/21/22 01:40 113 H 15 125/87 98 11/21/22 01:30 111 H 14 127/84 98 11/21/22 01:20 105 H 15 127/84 100 11/21/22 01:10 112 H 17 93/73 100 11/21/22 01:00 106 H 13 120/75 99 11/21/22 00:50 108 H 16 120/75 100 11/21/22 00:40 108 H 15 105/80 11/21/22 00:30 108 H 14 119/82 11/21/22 00:20 98 17 119/82 100 11/21/22 00:10 107 H 15 131/78 100 11/21/22 00:00 105 H 15 121/84 11/20/22 23:50 94 15 121/84 96 11/20/22 23:40 112 H 15 126/86 11/20/22 23:30 100 14 100/81 98 11/20/22 23:20 111 H 15 100/81 11/20/22 23:11 106 H 18 121/76 98 11/20/22 23:10 107 H 15 121/76 11/20/22 23:00 104 H 13 120/81 11/20/22 22:50 100 16 120/81 11/20/22 22:40 104 H 15 127/79 11/20/22 22:30 105 H 15 111/86 99 11/20/22 22:20 106 H 15 111/86 100 11/20/22 22:10 105 H 15 106/79 11/20/22 22:06 105 H 16 106/79 100 11/20/22 22:00 107 H 15 121/80 100 11/20/22 21:50 126 H 15 121/80 100 11/20/22 19:43 96 18 127/85 97 11/20/22 17:54 96.8 F L 107 H 20 123/103 100 Intake and Output 11/20/22 11/21/22 11/21/22 22:59 06:59 14:59 Other: Weight 90.718 kg GENERAL DESCRIPTION: An elderly male lying in bed, no distress. No tachypnea or accessory muscle of respiration use. HEENT: Shows Pallor , no scleral icterus. Oral mucous membrane is dry. NECK: Trachea central, no thyromegaly. LUNGS: Unlabored breathing. Decreased present at the base. HEART: S1, S2, regular rate and rhythm. No loud murmur ABDOMEN: Soft, no tenderness , EXTREMITIES: No edema of right leg, left AKA stump is currently healed. SKIN: No rash, no masses palpable. NEUROLOGICAL: The patient is awake, alert, oriented x3, mood and affect normal. Results CBC & Chem 7: 11/29/22 07:11 11/29/22 07:11 Labs: Abnormal Lab Results - Last 24 Hours (Table) 11/20/22 11/20/22 11/20/22 Range/Units 18:07 18:07 18:07 RBC 3.74 L (4.30-5.90) m/uL Hgb 11.0 L (13.0-17.5) gm/dL Hct 34.7 L (39.0-53.0) % MCHC (32.0-37.0) g/dL RDW 21.1 H (11.5-15.5) % Immature Gran # (0.00-0.04) X 10*3/uL Neutrophils # 8.3 H (1.3-7.7) k/uL Lymphocytes # (0.90-5.00) X 10*3/uL PT 15.0 H (9.0-12.0) sec INR 1.5 H (<1.2) APTT 44.8 H (22.0-30.0) sec Carbon Dioxide (22-30) mmol/L BUN (9-20) mg/dL BUN/Creatinine Ratio (12.00-20.00) Ratio Calcium (8.4-10.2) mg/dL Alkaline Phosphatase (38-126) U/L C-Reactive Protein (0.00-0.80) mg/dL Albumin (3.5-5.0) g/dL Globulin (1.6-3.3) g/dL Albumin/Globulin Ratio (1.60-3.17) g/dL Lipase (23-300) U/L Urine Opiates Screen Detected H (NotDetected) U Tricyclic Antidepress Detected H (NotDetected) 11/20/22 11/21/22 11/21/22 Range/Units 18:07 05:27 05:27 RBC 3.57 L (4.30-5.90) m/uL Hgb 10.4 L (13.0-17.5) gm/dL Hct 34.2 L (39.0-53.0) % MCHC 30.4 L (32.0-37.0) g/dL RDW 22.8 H (11.5-15.5) % Immature Gran # 0.08 H (0.00-0.04) X 10*3/uL Neutrophils # 7.78 H (1.3-7.7) k/uL Lymphocytes # 0.81 L (0.90-5.00) X 10*3/uL PT (9.0-12.0) sec INR (<1.2) APTT (22.0-30.0) sec Carbon Dioxide 31 H (22-30) mmol/L BUN 30 H (9-20) mg/dL BUN/Creatinine Ratio 23.09 H (12.00-20.00) Ratio Calcium 7.9 L 8.2 L (8.4-10.2) mg/dL Alkaline Phosphatase 153 H 142 H (38-126) U/L C-Reactive Protein 11.10 H (0.00-0.80) mg/dL Albumin 2.7 L 2.4 L (3.5-5.0) g/dL Globulin 3.8 H (1.6-3.3) g/dL Albumin/Globulin Ratio 0.63 L (1.60-3.17) g/dL Lipase 15 L (23-300) U/L Urine Opiates Screen (NotDetected) U Tricyclic Antidepress (NotDetected) Assessment and Plan (1) MRSA bacteremia Status: Acute Code(s): R78.81 - BACTEREMIA; B95.62 - METHICILLIN RESIS STAPH INFCT CAUSING DISEASES CLASSD ELSR SNOMED Code(s): 16967650242715233 (2) UTI (urinary tract infection) Status: Acute Code(s): N39.0 - URINARY TRACT INFECTION, SITE NOT SPECIFIED SNOMED Code(s): 45150855 Plan: 1patient was in the hospital mental status changes likely multifactorial with concern for possible catheter since UTI the patient has significantly positive UA and the patient was receiving daptomycin in the outpatient setting for his recent MRSA bacteremia we will have to make sure no evidence of any recurrence of his bacteremia no evidence of cellulitis was noticed that his midline and no evidence of pneumonia on the chest x-ray. 2blood cultures have been repeated check a CRP and a procalcitonin 3-change [place] catheter obtain urine culture from new Gamble 4-continue the daptomycin we will add Rocephin 2 g daily while waiting for the urine culture to be finalized We will follow on clinical condition and cultures to further adjust medication if needed Thank you for this consultation we will follow the patient along with you Time with Patient: Greater than 30
--- NOTE | 2022-11-21 23:53 | HP ---
HISTORY AND PHYSICAL HISTORY OF PRESENT ILLNESS: This is a 67-year-old white male who came with MRSA bacteremia, extensive workup for echo, FLO, was sent on Cubicin. He became more obtunded and altered. He was sent back to the hospital, shown to have a severely large amount of white cells in his urine, possibly another UTI and altered mental status. Due to abnormal UA, I ordered some blood cultures and put him back on Cubicin per Infectious Diseases here. PAST MEDICAL HISTORY: Atrial fibrillation, CVA, TIA, asthma, diabetes mellitus, DVT, GERD, hypertension, dyslipidemia, osteoarthritis, pneumonia, pulmonary embolism, skin disorder, vascular disorder, history of MRSA. Past medical history reviewed. PAST SURGICAL HISTORY: Adenoidectomy, appendectomy, tonsillectomy. FAMILY HISTORY: Mother with coronary artery disease, myocardial infarction, vascular disorder. Father with diabetes mellitus, renal disease. HOME MEDICINES: Reviewed. ALLERGIES: Reviewed. PHYSICAL EXAMINATION: VITAL SIGNS: Blood pressure 120s/80s, pulse is low 100s, respiratory rate 16 to 18, and O2 94 to 97. LABORATORY DATA: White count is normal, hemoglobin is 10.4, abnormal UA. ASSESSMENT: Altered mental status, multifactorial. Catheter is fairly large for white cells, over 170 white cells, put him back on daptomycin. Wait for Dr. Ordoñez's recommendations. Get Pulmonary and Neurology also. Prognosis guarded. MMODL / IJN: [id number] /
[2022-11-22 01:14] LABS: Appearance,Urine Cloudy (Clear); Bacteria,Urine Rare /hpf; Bilirubin,Urine Negative (Negative); Blood,Urine Moderate (Negative); Budding Yeast,Urine Occasional /hpf; Color,Urine Yellow; Glucose,Urine (UA) Negative (Negative); Hyaline Casts,Urine 29 /lpf (0-2); Ketones,Urine Negative (Negative); Leukocyte Esterase,Urine Large (Negative); Mucus,Urine Occasional /hpf; Nitrite,Urine Negative (Negative); PH, Urine 5.5 (5.0-8.0); Protein,Urine 1+ (Negative); RBC,Urine 26 /hpf (0-5); Specific Gravity,Urine 1.016 (1.001-1.035); Squamous Epithelial Cell,Urine 2 /hpf (0-4); WBC,Urine >182 /hpf (0-5)
[2022-11-22] MEDS: SODIUM CHLORIDE 0.9% 1,000 ML IV SCH ×4 (05:19→23:37)
[2022-11-22 06:23] LABS: Glucose,Whole Blood 126 mg/dL (70-110)
[2022-11-22] MEDS: INSULIN ASPART (NovoLOG) 100 UNIT/ML VIAL SQ SCH ×4 (06:28→20:54)
[2022-11-22] MEDS: PANTOPRAZOLE 40 MG TABLET PO SCH (06:44)
[2022-11-22] MEDS: DILTIAZEM 125 MG in SODIUM CHLORIDE 0.9% 100 ML IV SCH (08:31)
[2022-11-22] MEDS: MENTHOL TOPICAL SCH (08:32)
[2022-11-22] MEDS: LIDOCAINE TOPICAL SCH (08:32)
[2022-11-22] MEDS: SENNOSIDES 8.6 MG TAB PO SCH ×2 (08:43→20:54)
[2022-11-22] MEDS: MULTIVITAMINS, THERA 1 EACH TAB PO SCH (08:43)
[2022-11-22] MEDS: DABIGATRAN 150 MG CAP PO SCH ×2 (08:43→15:31)
[2022-11-22] MEDS: methIMAzole 5 MG TAB PO SCH ×3 (08:43→20:54)
[2022-11-22] MEDS: LORATADINE 10 MG TAB PO SCH (08:43)
[2022-11-22] MEDS: METOPROLOL TARTRATE 25 MG TAB PO SCH ×2 (08:43→20:53)
[2022-11-22] MEDS: PREGABALIN 75 MG CAP PO SCH ×2 (08:44→15:32)
[2022-11-22] MEDS: FERROUS SULFATE 325 MG TAB PO SCH ×2 (08:44→20:54)
[2022-11-22] MEDS: HYDROcodone/APAP 7.5-325MG 1 EACH TAB PO PRN (08:44)
[2022-11-22] MEDS: DIGOXIN 125 MCG TAB PO SCH (08:44)
--- NOTE | 2022-11-22 10:40 | P.PN ---
Subjective Progress Note Date: 11/22/22 HISTORY OF PRESENT ILLNESS: This is a 67-year-old male with a past medical history significant for congestive heart failure, diabetes, peripheral vascular disease with previous AKA, atrial fibrillation, [place] filter, and nonischemic cardiomyopathy with an ejection fraction around 30%. Patient follows in the office with Dr. Heaton. We have been asked to see the patient in consultation for atrial fibrillation. The patient was brought to the ER from his nursing facility for altered mental status. The patient was seen and examined this morning in the emergency room. The patient denies any chest pain or pressure. He denies shortness of breath. The patient was found to be in A. fib with RVR. Patient was started on IV Cardizem. He remains in atrial fibrillation at the time of examination with heart rates around 110. * EKG reveals atrial fibrillation with mild RVR * Chest xray nonspecific coarse lung markings persistent throughout both lung swartz * Laboratory data: WBC 9.49. Hemoglobin 10.4. Platelet count 310. Sodium 142. Potassium 3.7. BUN 25. Creatinine 1.1. ProBNP 9090. Troponin 0.026. * Current home cardiac medications include Bumex 2 mg the morning and 1 mg in the afternoon, Pradaxa 150 mg twice a day, metoprolol tartrate 75 mg twice a day, Lipitor 80 mg at night * Most recent echocardiogram obtained in October 2022 revealing ejection fraction 35-40%, mild MR, mild TR * Cardiac catheterization history: May 2022 revealing mild CAD including 10-20% RCA and 20-30% LAD stenosis * Patient underwent FLO in October [address] Cantrell secondary to bacteremia with no evidence of vegetation or thrombus. 11/22/2022 Patient examined this morning at bedside. He denies chest pain or pressure. Telemetry reveals atrial fibrillation with a heart rate in the 70s. His Cardizem drip has been turned off. He reports mild shortness of breath which he states is his baseline. He denies chest pain or pressure. Vital signs are stable. PHYSICAL EXAM: VITAL SIGNS: Reviewed. GENERAL: Well-developed in no acute distress. HEENT: Head is normocephalic. Pupils are equal, round. Sclerae anicteric. Mucous membranes of the mouth are moist. Neck supple. No JVD or thyromegaly LUNGS: Respirations even and unlabored. Lungs essentially clear to auscultation bilaterally. HEART: Irregular rate and rhythm. S1 and S2 heard. ABDOMEN: Soft. Nondistended. Nontender. EXTREMITIES: Normal range of motion. No clubbing or cyanosis. Peripheral pulses intact. Left AKA NEUROLOGIC: Awake and alert. Oriented x 3. ASSESSMENT: Altered mental status Urinary tract infection Persistent atrial fibrillation with RVR Recent admission for MRSA bacteremia with FLO revealing no evidence of vegetation Nonischemic cardiomyopathy Chronic congestive heart failure with reduced EF Peripheral vascular disease History of left AKA History of pulmonary embolism and [place] filter History of mild nonobstructive CAD PLAN: Continue current cardiac medications Discontinue IV Cardizem Continue telemetry monitoring Continue antibiotics per infectious disease Further recommendations pending patient's course Nurse practitioner note has been reviewed by physician. Signing provider agrees with the documented findings, assessment, and plan of care. Objective - Vital Signs Vital signs: Vital Signs Temp 97.9 F 11/22/22 08:00 Pulse 79 11/22/22 08:00 Resp 16 11/22/22 08:00 BP 99/63 11/22/22 08:00 Pulse Ox 96 11/22/22 08:00 FiO2 Intake & Output 11/21/22 11/22/22 11/22/22 18:59 06:59 18:59 Intake Total 120 240 Output Total 620 Balance -500 240 Intake: Oral 120 240 Output: Urine 620 Uretheral (Gamble) 620 Other: Voiding Method Indwelling Catheter Indwelling Catheter - Labs CBC & Chem 7: 11/21/22 05:27 11/21/22 05:27 Labs: Abnormal Lab Results - Last 24 Hours (Table) 11/20/22 11/21/22 11/21/22 Range/Units 18:07 05:27 05:27 RBC 3.57 L (4.40-5.60) X 10*6/uL Hgb 10.4 L (13.0-17.0) g/dL Hct 34.2 L (39.6-50.0) % MCHC 30.4 L (32.0-37.0) g/dL RDW 22.8 H (11.5-14.5) % Immature Gran # 0.08 H (0.00-0.04) X 10*3/uL Neutrophils # 7.78 H (1.80-7.70) X 10*3/uL Lymphocytes # 0.81 L (0.90-5.00) X 10*3/uL POC Glucose (mg/dL) (70-110) mg/dL Procalcitonin 0.10 H (0.02-0.09) ng/mL Urine Protein 1+ H (Negative) Urine Blood Moderate H (Negative) Ur Leukocyte Esterase Large H (Negative) Urine RBC 38 H (0-5) /hpf Urine WBC >182 H (0-5) /hpf Urine WBC Clumps Few H (None) /hpf Urine Bacteria Occasional H (None) /hpf Hyaline Casts (0-2) /lpf Urine Mucus Rare H (None) /hpf Urine Yeast (Budding) Many H (None) /hpf 11/21/22 11/22/22 Range/Units 23:29 06:19 RBC (4.40-5.60) X 10*6/uL Hgb (13.0-17.0) g/dL Hct (39.6-50.0) % MCHC (32.0-37.0) g/dL RDW (11.5-14.5) % Immature Gran # (0.00-0.04) X 10*3/uL Neutrophils # (1.80-7.70) X 10*3/uL Lymphocytes # (0.90-5.00) X 10*3/uL POC Glucose (mg/dL) 126 H (70-110) mg/dL Procalcitonin (0.02-0.09) ng/mL Urine Protein 1+ H (Negative) Urine Blood Moderate H (Negative) Ur Leukocyte Esterase Large H (Negative) Urine RBC 26 H (0-5) /hpf Urine WBC >182 H (0-5) /hpf Urine WBC Clumps Many H (None) /hpf Urine Bacteria Rare H (None) /hpf Hyaline Casts 29 H (0-2) /lpf Urine Mucus Occasional H (None) /hpf Urine Yeast (Budding) Occasional H (None) /hpf Microbiology - Last 24 Hours (Table) 11/21/22 21:39 Urine Culture - Preliminary Urine,Catheterized
[2022-11-22 11:38] LABS: Glucose,Whole Blood 171 mg/dL (70-110)
[2022-11-22 12:36] LABS: Glucose,Whole Blood 206 mg/dL (70-110)
[2022-11-22] MEDS: BUMETANIDE 1 MG TAB PO SCH (15:32)
[2022-11-22 16:52] LABS: Glucose,Whole Blood 213 mg/dL (70-110)
[2022-11-22] MEDS: DAPTOmycin 500 MG in SODIUM CHLORIDE 0.9% 50 ML IVPB SCH (17:14)
[2022-11-22 20:43] LABS: Glucose,Whole Blood 212 mg/dL (70-110)
[2022-11-22] MEDS: NORTRIPTYLINE 25 MG CAP PO SCH (20:53)
[2022-11-22] MEDS: ATORVASTATIN 80 MG TAB PO SCH (20:53)
[2022-11-22] MEDS: INSULIN DETEMIR (LEVEMIR) 100 UNIT/ML SYR SQ SCH (20:54)
--- NOTE | 2022-11-23 01:18 | PN ---
PROGRESS NOTE Came in with altered mental status and sepsis. Urine culture shows yeast species. The patient is seen by Dr. Ordoñez for recommendations for altered mental status, atrial fibrillation, peripheral vascular disease, AKA, congestive heart failure, [place] filter, nonischemic cardiomyopathy, ejection fraction 30%, including atrial fibrillation, RVR, and some confusion. Chest x-ray, course findings. White count is 9.49, potassium 3.7, BNP 9090. Echo 35% to 40% in ER. Heart catheterization shows mild stenosis. FLO. Due to bacteremia, no thrombus formation. He is sleepy, obtunded. OBJECTIVE: CARDIOVASCULAR: S1, S2. LUNGS: Clear. GI: Soft. HEMATOLOGY: Negative for Homans. PSYCH: Fair mood and affect. ASSESSMENT: Altered mental status, urinary tract infection, persistent atrial fibrillation with RVR. Recent admission for MRSA bacteremia, FLO, no vegetation, nonischemic cardiomyopathy, chronic congestive heart failure systolic, peripheral vascular disease, AKA. Wait for Dr. Ordoñez. Continue with antibiotics as abnormal UA is significant. So far yeast is showing in the catheterization. Prognosis guarded. MMODL / IJN: [id number] /
[2022-11-23] MEDS: HYDROcodone/APAP 7.5-325MG 1 EACH TAB PO PRN ×3 (03:59→21:16)
[2022-11-23 06:04] LABS: Glucose,Whole Blood 131 mg/dL (70-110)
[2022-11-23] MEDS: INSULIN ASPART (NovoLOG) 100 UNIT/ML VIAL SQ SCH ×4 (06:06→21:15)
[2022-11-23] MEDS: PANTOPRAZOLE 40 MG TABLET PO SCH (06:18)
[2022-11-23] MEDS: LIDOCAINE TOPICAL SCH (08:32)
[2022-11-23] MEDS: MENTHOL TOPICAL SCH (08:32)
[2022-11-23] MEDS: METOPROLOL TARTRATE 25 MG TAB PO SCH ×2 (08:40→21:16)
[2022-11-23] MEDS: DABIGATRAN 150 MG CAP PO SCH ×2 (08:40→15:21)
[2022-11-23] MEDS: MULTIVITAMINS, THERA 1 EACH TAB PO SCH (08:40)
[2022-11-23] MEDS: SENNOSIDES 8.6 MG TAB PO SCH ×2 (08:40→21:16)
[2022-11-23] MEDS: PREGABALIN 75 MG CAP PO SCH ×2 (08:40→15:21)
[2022-11-23] MEDS: DIGOXIN 125 MCG TAB PO SCH (08:40)
[2022-11-23] MEDS: LORATADINE 10 MG TAB PO SCH (08:40)
[2022-11-23] MEDS: FERROUS SULFATE 325 MG TAB PO SCH ×2 (08:40→21:16)
[2022-11-23] MEDS: methIMAzole 5 MG TAB PO SCH ×3 (08:40→21:16)
--- NOTE | 2022-11-23 08:44 | P.PN ---
Subjective Progress Note Date: 11/22/22 Patient was seen for a follow-up. Patient is laying in the bed. Offers no complaints. Denies headache, dizziness. Telemetry monitoring showing atrial fibrillation with heart rate in the 76. Objective - Vital Signs Vital signs: Vital Signs Temp 98.2 F 11/22/22 19:45 Pulse 79 11/22/22 19:45 Resp 16 11/22/22 19:45 BP 112/69 11/22/22 19:45 Pulse Ox 94 L 11/22/22 19:45 FiO2 Intake & Output 11/22/22 11/22/22 11/23/22 06:59 18:59 06:59 Intake Total 120 240 Output Total 620 450 Balance -500 -210 Intake: Oral 120 240 Output: Urine 620 450 Uretheral (Gamble) 620 Other: Voiding Method Indwelling Catheter Indwelling Catheter Indwelling Catheter - Exam Patient is slightly encephalopathic. He has mild myoclonic jerks of outstretched hands. Patient states it is January and the year is 2022. He knows that he is in [facility]. Rest of the examination is unchanged. - Labs CBC & Chem 7: 11/21/22 05:27 11/21/22 05:27 Labs: Abnormal Lab Results - Last 24 Hours (Table) 11/21/22 11/21/22 11/22/22 Range/Units 20:32 23:29 06:19 POC Glucose (mg/dL) 206 H 126 H (70-110) mg/dL Urine Protein 1+ H (Negative) Urine Blood Moderate H (Negative) Ur Leukocyte Esterase Large H (Negative) Urine RBC 26 H (0-5) /hpf Urine WBC >182 H (0-5) /hpf Urine WBC Clumps Many H (None) /hpf Urine Bacteria Rare H (None) /hpf Hyaline Casts 29 H (0-2) /lpf Urine Mucus Occasional H (None) /hpf Urine Yeast (Budding) Occasional H (None) /hpf 11/22/22 11/22/22 11/22/22 Range/Units 11:28 16:41 20:41 POC Glucose (mg/dL) 171 H 213 H 212 H (70-110) mg/dL Urine Protein (Negative) Urine Blood (Negative) Ur Leukocyte Esterase (Negative) Urine RBC (0-5) /hpf Urine WBC (0-5) /hpf Urine WBC Clumps (None) /hpf Urine Bacteria (None) /hpf Hyaline Casts (0-2) /lpf Urine Mucus (None) /hpf Urine Yeast (Budding) (None) /hpf Microbiology - Last 24 Hours (Table) 11/21/22 21:39 Urine Culture - Preliminary Urine,Catheterized Yeast species Assessment and Plan Assessment: * Altered mental status likely due to mild delirium from acute UTI. Patient has slightly fluctuating mental status related to delirium. * Acute UTI * Bacteremia with MRSA. * History of atrial fibrillation, on Pradaxa * History of migraine * Diabetes * Chronic renal disease * Hypertension * Hyperlipidemia * History of left above-knee amputation. * History of pulmonary embolism, status post [place] filter placement. Plan: * Patient has mild delirium, related to UTI. He has mild myoclonic jerks of outstretched hand noticed today. Delirium will improve, once UTI comes under control. * Patient currently on ceftriaxone and daptomycin for UTI. * Cardiology also on board for atrial fibrillation. * Treatment of UTI as per IM. * Previous workup as below: * Carotid Doppler revealed no evidence for hemodynamically significant stenosis. Antegrade flow in both vertebral arteries. * 2-D echo revealed moderately impaired left ventricle systolic function with EF 35-40%. Moderate LVH, moderately increased left atrial area. Moderate pulmonary hypertension. * FLO performed 11/04/2022 revealed normal aortic valve with mild AR. Mitral valves are normal. Left atrial appendage is free of any thrombus. Left ventricular ejection fraction 35%. Moderate biatrial enlargement. No evidence of vegetation. Extensive smoke noted throughout examination. * Patient has atrial fibrillation. Continue Pradaxa. * Hemoglobin A1c 8.6. Optimize control of diabetes to target A1c <7.0 * Lipid panel with cholesterol 123, LDL 75, HDL 37 and triglycerides 52. Continue Lipitor 80 mg daily. * TSH normal. * Neurologically no other workup indicated.
[2022-11-23] MEDS: SODIUM CHLORIDE 0.9% 1,000 ML IV SCH ×2 (09:17→15:22)
--- NOTE | 2022-11-23 11:32 | P.PN ---
Subjective Progress Note Date: 11/23/22 HISTORY OF PRESENT ILLNESS: This is a 67-year-old male with a past medical history significant for congestive heart failure, diabetes, peripheral vascular disease with previous AKA, atrial fibrillation, [place] filter, and nonischemic cardiomyopathy with an ejection fraction around 30%. Patient follows in the office with Dr. Heaton. We have been asked to see the patient in consultation for atrial fibrillation. The patient was brought to the ER from his nursing facility for altered mental status. The patient was seen and examined this morning in the emergency room. The patient denies any chest pain or pressure. He denies shortness of breath. The patient was found to be in A. fib with RVR. Patient was started on IV Cardizem. He remains in atrial fibrillation at the time of examination with heart rates around 110. * EKG reveals atrial fibrillation with mild RVR * Chest xray nonspecific coarse lung markings persistent throughout both lung swartz * Laboratory data: WBC 9.49. Hemoglobin 10.4. Platelet count 310. Sodium 142. Potassium 3.7. BUN 25. Creatinine 1.1. ProBNP 9090. Troponin 0.026. * Current home cardiac medications include Bumex 2 mg the morning and 1 mg in the afternoon, Pradaxa 150 mg twice a day, metoprolol tartrate 75 mg twice a day, Lipitor 80 mg at night * Most recent echocardiogram obtained in October 2022 revealing ejection fraction 35-40%, mild MR, mild TR * Cardiac catheterization history: May 2022 revealing mild CAD including 10-20% RCA and 20-30% LAD stenosis * Patient underwent FLO in October [address] Cantrell secondary to bacteremia with no evidence of vegetation or thrombus. 11/22/2022 Patient examined this morning at bedside. He denies chest pain or pressure. Telemetry reveals atrial fibrillation with a heart rate in the 70s. His Cardizem drip has been turned off. He reports mild shortness of breath which he states is his baseline. He denies chest pain or pressure. Vital signs are stable. 11/23/2022 Patient examined this morning at the bedside. Patient denies chest pain or pressure. He denies shortness of breath. He is complaining that he is tired and did not sleep well overnight. Telemetry reveals atrial fibrillation with controlled heart rates in the 70s. Blood pressure is stable. PHYSICAL EXAM: VITAL SIGNS: Reviewed. GENERAL: Well-developed in no acute distress. HEENT: Head is normocephalic. Pupils are equal, round. Sclerae anicteric. Mucous membranes of the mouth are moist. Neck supple. No JVD or thyromegaly LUNGS: Respirations even and unlabored. Lungs essentially clear to auscultation bilaterally. HEART: Irregular rate and rhythm. S1 and S2 heard. ABDOMEN: Soft. Nondistended. Nontender. EXTREMITIES: Normal range of motion. No clubbing or cyanosis. Peripheral pulses intact. Left AKA NEUROLOGIC: Awake and alert. Oriented x 3. ASSESSMENT: Altered mental status Urinary tract infection Persistent atrial fibrillation with RVR Recent admission for MRSA bacteremia with FLO revealing no evidence of vegetation Nonischemic cardiomyopathy Chronic congestive heart failure with reduced EF Peripheral vascular disease History of left AKA History of pulmonary embolism and [place] filter History of mild nonobstructive CAD PLAN: Continue current cardiac medications Continue telemetry monitoring Continue antibiotics per infectious disease Patient is currently stable from a cardiac perspective Further recommendations pending patient's course Nurse practitioner note has been reviewed by physician. Signing provider agrees with the documented findings, assessment, and plan of care. Objective - Vital Signs Vital signs: Vital Signs Temp 98 F 11/23/22 08:00 Pulse 79 11/23/22 08:00 Resp 20 11/23/22 08:00 BP 102/61 11/23/22 08:00 Pulse Ox 94 L 11/23/22 08:09 FiO2 Intake & Output 11/22/22 11/23/22 11/23/22 18:59 06:59 18:59 Intake Total 240 Output Total 450 900 Balance -210 -900 Intake: Oral 240 Output: Urine 450 900 Uretheral (Gamble) 600 Other: Voiding Method Indwelling Catheter Indwelling Catheter Indwelling Catheter # Bowel Movements 0 - Labs CBC & Chem 7: 11/21/22 05:27 11/21/22 05:27 Labs: Abnormal Lab Results - Last 24 Hours (Table) 11/21/22 11/22/22 11/22/22 Range/Units 20:32 11:28 16:41 POC Glucose (mg/dL) 206 H 171 H 213 H (70-110) mg/dL 11/22/22 11/23/22 Range/Units 20:41 06:03 POC Glucose (mg/dL) 212 H 131 H (70-110) mg/dL Microbiology - Last 24 Hours (Table) 11/21/22 18:54 Blood Culture - Preliminary Blood 11/21/22 21:39 Urine Culture - Preliminary Urine,Catheterized Yeast species
[2022-11-23 11:37] LABS: Glucose,Whole Blood 151 mg/dL (70-110)
[2022-11-23] MEDS: FLUCONAZOLE 100 MG TAB PO SCH (13:00)
--- NOTE | 2022-11-23 13:47 | P.PN ---
Subjective Progress Note Date: 11/22/22 Principal diagnosis: Recent MRSA infection and UTI Patient is a 67-year-old male with multiple comorbidity recently admitted to this facility with the patient did have MRSA bacteremia patient did have a extensive work-up including echocardiogram FLO WBC scan all of them were negative for any deep infection patient blood culture were negative as of 11/03/2022 as well as 11/04 and 11/05/2022 patient did get the midline and was advised a 2-week course of IV daptomycin on discharge which the [facility] patient has been brought to the ER for mental status changes, did have a positive UA and concern for possible cath associated UTI. On today's evaluation head that is 11/22/2022, patient denies having any fever or any chills, the patient is currently breathing comfortably on 3 L nasal cannula oxygen, denies any chest pain occasional cough no nausea no vomiting no abdominal pain or diarrhea Objective - Vital Signs Vital signs: Vital Signs Temp 97.9 F 11/22/22 08:00 Pulse 79 11/22/22 08:00 Resp 16 11/22/22 08:00 BP 99/63 11/22/22 08:00 Pulse Ox 96 11/22/22 08:00 FiO2 Intake & Output 11/21/22 11/22/22 11/22/22 18:59 06:59 18:59 Intake Total 120 240 Output Total 620 Balance -500 240 Intake: Oral 120 240 Output: Urine 620 Uretheral (Gamble) 620 Other: Voiding Method Indwelling Catheter Indwelling Catheter - Exam GENERAL DESCRIPTION: An elderly male lying in bed in no distress RESPIRATORY SYSTEM: Unlabored breathing , decreased breath sounds at bases HEART: S1 S2 regular rate and rhythm , ABDOMEN: Soft , no tenderness EXTREMITIES: 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 - Labs CBC & Chem 7: 11/21/22 05:27 11/21/22 05:27 Labs: Abnormal Lab Results - Last 24 Hours (Table) 11/20/22 11/21/22 11/22/22 Range/Units 18:07 23:29 06:19 POC Glucose (mg/dL) 126 H (70-110) mg/dL Urine Protein 1+ H 1+ H (Negative) Urine Blood Moderate H Moderate H (Negative) Ur Leukocyte Esterase Large H Large H (Negative) Urine RBC 38 H 26 H (0-5) /hpf Urine WBC >182 H >182 H (0-5) /hpf Urine WBC Clumps Few H Many H (None) /hpf Urine Bacteria Occasional H Rare H (None) /hpf Hyaline Casts 29 H (0-2) /lpf Urine Mucus Rare H Occasional H (None) /hpf Urine Yeast (Budding) Many H Occasional H (None) /hpf 11/22/22 Range/Units 11:28 POC Glucose (mg/dL) 171 H (70-110) mg/dL Urine Protein (Negative) Urine Blood (Negative) Ur Leukocyte Esterase (Negative) Urine RBC (0-5) /hpf Urine WBC (0-5) /hpf Urine WBC Clumps (None) /hpf Urine Bacteria (None) /hpf Hyaline Casts (0-2) /lpf Urine Mucus (None) /hpf Urine Yeast (Budding) (None) /hpf Microbiology - Last 24 Hours (Table) 11/21/22 21:39 Urine Culture - Preliminary Urine,Catheterized Assessment and Plan (1) UTI (urinary tract infection) Current Visit: No Status: Acute Code(s): N39.0 - URINARY TRACT INFECTION, SITE NOT SPECIFIED SNOMED Code(s): 58883505 Plan: 1patient was in the hospital mental status changes likely multifactorial with concern for possible catheter since UTI the patient has significantly positive UA and the patient was receiving daptomycin in the outpatient setting for his recent MRSA bacteremia we will have to make sure no evidence of any recurrence of his bacteremia no evidence of cellulitis was noticed that his midline and no evidence of pneumonia on the chest x-ray. 2blood cultures has been repeated which are currently pending, patient CRP is 11.10 and a procalcitonin one 0.10 3-Gamble catheter has been changed and repeat UA still positive 4-patient to continue the daptomycin and Rocephin 2 g daily while waiting for the urine culture to be finalized Time with Patient: Less than 30
--- NOTE | 2022-11-23 13:48 | P.PN ---
Subjective Progress Note Date: 11/23/22 Principal diagnosis: Recent MRSA infection and UTI Patient is a 67-year-old male with multiple comorbidity recently admitted to this facility with the patient did have MRSA bacteremia patient did have a extensive work-up including echocardiogram FLO WBC scan all of them were negative for any deep infection patient blood culture were negative as of 11/03/2022 as well as 11/04 and 11/05/2022 patient did get the midline and was advised a 2-week course of IV daptomycin on discharge which the [facility] patient has been brought to the ER for mental status changes, did have a positive UA and concern for possible cath associated UTI. On today's evaluation head that is 11/23/2022, patient remains to be afebrile,, the patient is currently breathing comfortably on 4 L nasal cannula oxygen, patient complaining of some chest pain denies any nausea no vomiting no abdominal pain or diarrhea Objective - Vital Signs Vital signs: Vital Signs Temp 98 F 11/23/22 08:00 Pulse 79 11/23/22 08:00 Resp 20 11/23/22 08:00 BP 102/61 11/23/22 08:00 Pulse Ox 94 L 11/23/22 08:09 FiO2 Intake & Output 11/22/22 11/23/22 11/23/22 18:59 06:59 18:59 Intake Total 240 Output Total 450 900 Balance -210 -900 Intake: Oral 240 Output: Urine 450 900 Uretheral (Gamble) 600 Other: Voiding Method Indwelling Catheter Indwelling Catheter Indwelling Catheter # Bowel Movements 0 - Exam GENERAL DESCRIPTION: An elderly male lying in bed in no distress RESPIRATORY SYSTEM: Unlabored breathing , decreased breath sounds at bases HEART: S1 S2 regular rate and rhythm , ABDOMEN: Soft , no tenderness EXTREMITIES: 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 - Labs CBC & Chem 7: 11/21/22 05:27 11/21/22 05:27 Labs: Abnormal Lab Results - Last 24 Hours (Table) 11/22/22 11/22/22 11/23/22 Range/Units 16:41 20:41 06:03 POC Glucose (mg/dL) 213 H 212 H 131 H (70-110) mg/dL 11/23/22 Range/Units 11:34 POC Glucose (mg/dL) 151 H (70-110) mg/dL Microbiology - Last 24 Hours (Table) 11/21/22 18:54 Blood Culture - Preliminary Blood 11/21/22 21:39 Urine Culture - Preliminary Urine,Catheterized Yeast species Assessment and Plan (1) UTI (urinary tract infection) Current Visit: No Status: Acute Code(s): N39.0 - URINARY TRACT INFECTION, SITE NOT SPECIFIED SNOMED Code(s): 00828333 Plan: 1patient was in the hospital mental status changes likely multifactorial with concern for possible catheter since UTI the patient has significantly positive UA and the patient was receiving daptomycin in the outpatient setting for his recent MRSA bacteremia we will have to make sure no evidence of any recurrence of his bacteremia no evidence of cellulitis was noticed that his midline and no evidence of pneumonia on the chest x-ray. 2blood cultures has been repeated which are currently pending, patient CRP is 11.10 and a procalcitonin one 0.10 3-Gamble catheter has been changed and repeat UA still positive, culture currently growing yeast 4-patient to continue the daptomycin we will discontinue Rocephin and start the patient on Diflucan and see clinical response Time with Patient: Less than 30
[2022-11-23] MEDS ORDERED: LIDOCAINE 1% INJ 10MG/ML (5 ML VIAL-PF) SQ ONE (14:50)
--- NOTE | 2022-11-23 15:13 | IR ---
PICC LINE PLACEMENT: HISTORY: Infection requiring long-term antibiotic therapy PROCEDURE: Ultrasound and fluoroscopic guidance of PICC line placement. COMPLICATIONS: None ANESTHESIA: 1. 1% Lidocaine locally. FINDINGS/TECHNIQUE: The procedure was explained to the patient. The risks, complications, benefits and alternatives were discussed and any questions were answered. Informed consent was obtained. The patient was placed supine on the fluoroscopic table and prepped and draped in the usual sterile fash ion. Utilizing a 21 gauge needle and sonographic and fluoroscopic guidance, access in the left basi lic vein was achieved and there is placement of a 0.018 guidewire. The vein is patent. A 4-F sheath was placed over the guidewire. The guidewire and dilator were removed and a 4-F. PICC line was plac ed through the sheath with the tip at the level of the SVC. The sheath was removed, the catheter was flushed and sutured into position. The patient was stable throughout the procedure and remained sta ble upon discharge from the Department of Radiology. The vein puncture was patent under ultrasound. A davis scale image was obtained to document patency of the vein punctured. All elements of the maximal barrier technique were utilized. FLUOROSCOPY TIME: DAP [id number] cm2 IMPRESSION: Successful PICC line placement under ultrasound and fluoroscopic guidance.
[2022-11-23] MEDS: BUMETANIDE 1 MG TAB PO SCH (15:21)
--- NOTE | 2022-11-23 16:13 | P.PN ---
Subjective Progress Note Date: 11/23/22 Patient was seen for a follow-up. Patient is laying in the bed. Patient admits to having some heartburn. Denies headache, dizziness. Patient appears slightly sleepy. Telemetry monitoring showing atrial fibrillation rate controlled in 70-80. Objective - Vital Signs Vital signs: Vital Signs Temp 98 F 11/23/22 08:00 Pulse 79 11/23/22 08:00 Resp 20 11/23/22 08:00 BP 102/61 11/23/22 08:00 Pulse Ox 94 L 11/23/22 08:09 FiO2 Intake & Output 11/22/22 11/23/22 11/23/22 18:59 06:59 18:59 Intake Total 240 Output Total 450 900 Balance -210 -900 Intake: Oral 240 Output: Urine 450 900 Uretheral (Gamble) 600 Other: Voiding Method Indwelling Catheter Indwelling Catheter Indwelling Catheter # Bowel Movements 0 - Exam Patient is slightly encephalopathic. He has mild myoclonic jerks of outstretched hands. Patient did not elect to answer questions for orientation today. Patient easily gets upset, therefore was deferred. No facial droop, speech is clear. - Labs CBC & Chem 7: 11/21/22 05:27 11/21/22 05:27 Labs: Abnormal Lab Results - Last 24 Hours (Table) 11/22/22 11/22/22 11/23/22 Range/Units 16:41 20:41 06:03 POC Glucose (mg/dL) 213 H 212 H 131 H (70-110) mg/dL 11/23/22 Range/Units 11:34 POC Glucose (mg/dL) 151 H (70-110) mg/dL Microbiology - Last 24 Hours (Table) 11/21/22 18:54 Blood Culture - Preliminary Blood 11/21/22 21:39 Urine Culture - Preliminary Urine,Catheterized Yeast species Assessment and Plan Assessment: * Altered mental status likely due to mild delirium from acute UTI. Patient has slightly fluctuating mental status related to delirium. * Acute UTI * Previous history of bacteremia with MRSA. * History of atrial fibrillation, on Pradaxa * History of migraine * Diabetes * Chronic renal disease * Hypertension * Hyperlipidemia * History of left above-knee amputation. * History of pulmonary embolism, status post [place] filter placement. Plan: * Patient has mild delirium, related to UTI. He has mild myoclonic jerks of outstretched hand noticed today. Delirium will improve, once UTI comes under control. * Patient currently on ceftriaxone and daptomycin for UTI. Also on Diflucan. ID on board. * Cardiology also on board for atrial fibrillation. * Previous workup as below: * Carotid Doppler revealed no evidence for hemodynamically significant stenosis. Antegrade flow in both vertebral arteries. * 2-D echo revealed moderately impaired left ventricle systolic function with EF 35-40%. Moderate LVH, moderately increased left atrial area. Moderate pulmonary hypertension. * FLO performed 11/04/2022 revealed normal aortic valve with mild AR. Mitral valves are normal. Left atrial appendage is free of any thrombus. Left ventricular ejection fraction 35%. Moderate biatrial enlargement. No evidence of vegetation. Extensive smoke noted throughout examination. * Patient has atrial fibrillation. Continue Pradaxa. * Hemoglobin A1c 8.6. Optimize control of diabetes to target A1c <7.0 * Lipid panel with cholesterol 123, LDL 75, HDL 37 and triglycerides 52. Continue Lipitor 80 mg daily. * TSH normal. * Neurologically no other workup indicated.
[2022-11-23 16:26] LABS: Glucose,Whole Blood 285 mg/dL (70-110)
[2022-11-23] MEDS: DAPTOmycin 500 MG in SODIUM CHLORIDE 0.9% 50 ML IVPB SCH (17:18)
[2022-11-23 20:12] LABS: Glucose,Whole Blood 332 mg/dL (70-110)
[2022-11-23] MEDS: NORTRIPTYLINE 25 MG CAP PO SCH (21:15)
[2022-11-23] MEDS: INSULIN DETEMIR (LEVEMIR) 100 UNIT/ML SYR SQ SCH (21:15)
[2022-11-23] MEDS: ATORVASTATIN 80 MG TAB PO SCH (21:16)
--- NOTE | 2022-11-23 23:55 | PN ---
PROGRESS NOTE SUBJECTIVE: He is more alert today. He is getting a PICC line placed per Dr. Ordoñez for long-term IV antibiotics at the longterm. He remains afebrile. He is on 4 L oxygen. Denies any chest pain, nausea, vomiting, or diarrhea. OBJECTIVE: VITAL SIGNS: O2 saturation is 94, temp 98, pulse 79, respiratory rate 20, and blood pressure is 102/61. HEENT: Normocephalic, atraumatic. Pupils equal, round, reactive. ABDOMEN: Soft. White count is 9.4, hemoglobin is 10.4. ASSESSMENT: UTI with , recent MRSA bacteremia. Blood cultures are repeated, negative. CRP is 11.1, procalcitonin 0.1. UA still positive, culture growing yeast. Continue daptomycin and Diflucan. Possibly go back to longterm. Cardiac has seen him and stabilized him. Wait for current treatments. Prognosis guarded. MMODL / IJN: [id number] /
[2022-11-24] MEDS: SODIUM CHLORIDE 0.9% 1,000 ML IV SCH ×3 (03:46→15:08)
[2022-11-24 05:56] LABS: Glucose,Whole Blood 300 mg/dL (70-110)
[2022-11-24] MEDS: PANTOPRAZOLE 40 MG TABLET PO SCH (06:09)
[2022-11-24] MEDS: INSULIN ASPART (NovoLOG) 100 UNIT/ML VIAL SQ SCH ×4 (06:12→20:09)
[2022-11-24] MEDS: LIDOCAINE TOPICAL SCH (08:32)
[2022-11-24] MEDS: MENTHOL TOPICAL SCH (08:32)
[2022-11-24 08:42] LABS: Glucose,Whole Blood 104 mg/dL (70-110)
[2022-11-24] MEDS: FERROUS SULFATE 325 MG TAB PO SCH ×2 (08:43→21:21)
[2022-11-24] MEDS: LORATADINE 10 MG TAB PO SCH (08:43)
[2022-11-24] MEDS: MULTIVITAMINS, THERA 1 EACH TAB PO SCH (08:43)
[2022-11-24] MEDS: methIMAzole 5 MG TAB PO SCH ×3 (08:43→21:21)
[2022-11-24] MEDS: FLUCONAZOLE 100 MG TAB PO SCH (08:43)
[2022-11-24] MEDS: DIGOXIN 125 MCG TAB PO SCH (08:43)
[2022-11-24] MEDS: SENNOSIDES 8.6 MG TAB PO SCH ×2 (08:43→21:21)
[2022-11-24] MEDS: PREGABALIN 75 MG CAP PO SCH ×2 (08:43→15:08)
[2022-11-24] MEDS: DABIGATRAN 150 MG CAP PO SCH ×2 (08:43→15:08)
[2022-11-24] MEDS: METOPROLOL TARTRATE 25 MG TAB PO SCH ×2 (08:44→21:21)
[2022-11-24] MEDS ORDERED: DEXTROSE 50% SYRINGE 50 ML IVP ONE (11:44)
[2022-11-24 11:45] LABS: Glucose,Whole Blood 37 mg/dL (70-110)
[2022-11-24 12:03] LABS: Glucose,Whole Blood 240 mg/dL (70-110)
--- NOTE | 2022-11-24 12:30 | P.PN ---
Subjective Progress Note Date: 11/24/22 HISTORY OF PRESENT ILLNESS: This is a 67-year-old male with a past medical history significant for congestive heart failure, diabetes, peripheral vascular disease with previous AKA, atrial fibrillation, [place] filter, and nonischemic cardiomyopathy with an ejection fraction around 30%. Patient follows in the office with Dr. Heaton. We have been asked to see the patient in consultation for atrial fibrillation. The patient was brought to the ER from his nursing facility for altered mental status. The patient was seen and examined this morning in the emergency room. The patient denies any chest pain or pressure. He denies shortness of breath. The patient was found to be in A. fib with RVR. Patient was started on IV Cardizem. He remains in atrial fibrillation at the time of examination with heart rates around 110. * EKG reveals atrial fibrillation with mild RVR * Chest xray nonspecific coarse lung markings persistent throughout both lung swartz * Laboratory data: WBC 9.49. Hemoglobin 10.4. Platelet count 310. Sodium 142. Potassium 3.7. BUN 25. Creatinine 1.1. ProBNP 9090. Troponin 0.026. * Current home cardiac medications include Bumex 2 mg the morning and 1 mg in the afternoon, Pradaxa 150 mg twice a day, metoprolol tartrate 75 mg twice a day, Lipitor 80 mg at night * Most recent echocardiogram obtained in October 2022 revealing ejection fraction 35-40%, mild MR, mild TR * Cardiac catheterization history: May 2022 revealing mild CAD including 10-20% RCA and 20-30% LAD stenosis * Patient underwent FLO in October [address] Cantrell secondary to bacteremia with no evidence of vegetation or thrombus. 11/22/2022 Patient examined this morning at bedside. He denies chest pain or pressure. Telemetry reveals atrial fibrillation with a heart rate in the 70s. His Cardizem drip has been turned off. He reports mild shortness of breath which he states is his baseline. He denies chest pain or pressure. Vital signs are stable. 11/23/2022 Patient examined this morning at the bedside. Patient denies chest pain or pressure. He denies shortness of breath. He is complaining that he is tired and did not sleep well overnight. Telemetry reveals atrial fibrillation with controlled heart rates in the 70s. Blood pressure is stable. 11/24/2022 Patient examined this morning at the bedside. Patient is resting comfortably in no acute distress. He denies chest pain or pressure. He denies shortness of breath. Telemetry reveals atrial fibrillation with a heart rate in the 70s. Vital signs are stable. PHYSICAL EXAM: VITAL SIGNS: Reviewed. GENERAL: Well-developed in no acute distress. HEENT: Head is normocephalic. Pupils are equal, round. Sclerae anicteric. Mucous membranes of the mouth are moist. Neck supple. No JVD or thyromegaly LUNGS: Respirations even and unlabored. Lungs essentially clear to auscultation bilaterally. HEART: Irregular rate and rhythm. S1 and S2 heard. ABDOMEN: Soft. Nondistended. Nontender. EXTREMITIES: Normal range of motion. No clubbing or cyanosis. Peripheral p ulses intact. Left AKA NEUROLOGIC: Awake and alert. Oriented x 3. ASSESSMENT: Altered mental status Urinary tract infection Persistent atrial fibrillation with RVR Recent admission for MRSA bacteremia with FLO revealing no evidence of vegetation Nonischemic cardiomyopathy Chronic congestive heart failure with reduced EF Peripheral vascular disease History of left AKA History of pulmonary embolism and [place] filter History of mild nonobstructive CAD PLAN: Continue current cardiac medications Patient is stable from a cardiac standpoint with no further inpatient recommendations noted We will sign off. Please reconsult if needed. Nurse practitioner note has been reviewed by physician. Signing provider agrees with the documented findings, assessment, and plan of care. Objective - Vital Signs Vital signs: Vital Signs Temp 97.2 F L 11/24/22 11:26 Pulse 79 11/23/22 12:00 Resp 20 11/24/22 11:26 BP 137/79 11/24/22 11:26 Pulse Ox 97 11/24/22 11:26 FiO2 Intake & Output 11/23/22 11/24/22 11/24/22 18:59 06:59 18:59 Intake Total 714 120 Output Total 150 500 175 Balance 564 -500 -55 Intake: Oral 714 120 Output: Urine 150 500 175 Other: Voiding Method Indwelling Catheter Indwelling Catheter Indwelling Catheter - Labs CBC & Chem 7: 11/21/22 05:27 11/21/22 05:27 Labs: Abnormal Lab Results - Last 24 Hours (Table) 11/23/22 11/23/22 11/24/22 Range/Units 16:24 20:11 05:55 POC Glucose (mg/dL) 285 H 332 H 300 H (70-110) mg/dL 11/24/22 11/24/22 Range/Units 11:41 12:02 POC Glucose (mg/dL) 37 L 240 H (70-110) mg/dL Microbiology - Last 24 Hours (Table) 11/21/22 18:54 Blood Culture - Preliminary Blood 11/21/22 21:39 Urine Culture - Final Urine,Catheterized Celestina albicans
[2022-11-24 13:56] VITALS: BMI 24.3
--- NOTE | 2022-11-24 14:41 | P.PN ---
Subjective Progress Note Date: 11/24/22 Principal diagnosis: Recent MRSA infection and UTI Patient is a 67-year-old male with multiple comorbidity recently admitted to this facility with the patient did have MRSA bacteremia patient did have a extensive work-up including echocardiogram FLO WBC scan all of them were negative for any deep infection patient blood culture were negative as of 11/03/2022 as well as 11/04 and 11/05/2022 patient did get the midline and was advised a 2-week course of IV daptomycin on discharge which the [facility] is [facility] patient has been brought to the ER for mental status changes, did have a positive UA and concern for possible cath associated UTI. On today's evaluation head that is 11/24/2022, patient continues to be afebrile,, the patient is breathing comfortably on 4 L nasal cannula oxygen, patient is slightly lethargic today and not a good historian no vomiting diarrhea or any other changes reported by the nursing staff Objective - Vital Signs Vital signs: Vital Signs Temp 97.2 F L 11/24/22 11:26 Pulse 79 11/23/22 12:00 Resp 20 11/24/22 11:26 BP 137/79 11/24/22 11:26 Pulse Ox 97 11/24/22 11:26 FiO2 Intake & Output 11/23/22 11/24/22 11/24/22 18:59 06:59 18:59 Intake Total 714 120 Output Total 150 500 175 Balance 564 -500 -55 Intake: Oral 714 120 Output: Urine 150 500 175 Other: Voiding Method Indwelling Catheter Indwelling Catheter Indwelling Catheter - Exam GENERAL DESCRIPTION: An elderly male lying in bed in no distress RESPIRATORY SYSTEM: Unlabored breathing , decreased breath sounds at bases HEART: S1 S2 regular rate and rhythm , ABDOMEN: Soft , no tenderness EXTREMITIES: 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 - Labs CBC & Chem 7: 11/21/22 05:27 11/21/22 05:27 Labs: Abnormal Lab Results - Last 24 Hours (Table) 11/23/22 11/23/22 11/24/22 Range/Units 16:24 20:11 05:55 POC Glucose (mg/dL) 285 H 332 H 300 H (70-110) mg/dL 11/24/22 11/24/22 Range/Units 11:41 12:02 POC Glucose (mg/dL) 37 L 240 H (70-110) mg/dL Microbiology - Last 24 Hours (Table) 11/21/22 18:54 Blood Culture - Preliminary Blood 11/21/22 21:39 Urine Culture - Final Urine,Catheterized Celestina albicans Assessment and Plan (1) UTI (urinary tract infection) Current Visit: No Status: Acute Code(s): N39.0 - URINARY TRACT INFECTION, SITE NOT SPECIFIED SNOMED Code(s): 03132003 Plan: 1patient was in the hospital mental status changes likely multifactorial with c oncern for possible catheter since UTI the patient has significantly positive UA and the patient was receiving daptomycin in the outpatient setting for his recent MRSA bacteremia we will have to make sure no evidence of any recurrence of his bacteremia no evidence of cellulitis was noticed that his midline and no evidence of pneumonia on the chest x-ray. 2blood cultures has been repeated which as negative so far, patient CRP is 11.10 and a procalcitonin one 0.10 3-Gamble catheter has been changed and repeat UA still positive, culture currently growing yeast 4-patient to continue the daptomycin and Diflucan , monitor clinical course closely Time with Patient: Less than 30
[2022-11-24] MEDS: BUMETANIDE 1 MG TAB PO SCH (15:08)
[2022-11-24 16:29] LABS: Glucose,Whole Blood 87 mg/dL (70-110)
[2022-11-24] MEDS: DAPTOmycin 500 MG in SODIUM CHLORIDE 0.9% 50 ML IVPB SCH (17:23)
[2022-11-24 20:07] LABS: Glucose,Whole Blood 129 mg/dL (70-110)
[2022-11-24] MEDS: ATORVASTATIN 80 MG TAB PO SCH (21:21)
[2022-11-24] MEDS: NORTRIPTYLINE 25 MG CAP PO SCH (21:21)
[2022-11-24] MEDS: HYDROcodone/APAP 7.5-325MG 1 EACH TAB PO PRN (23:44)
[2022-11-25] MEDS: SODIUM CHLORIDE 0.9% 1,000 ML IV SCH ×3 (01:10→15:20)
--- NOTE | 2022-11-25 02:07 | PN ---
PROGRESS NOTE SUBJECTIVE: hypoglycemia today, we held his Levemir and diabetic medicines, just gave him Accu-Chek protocol. He was getting a little bit confused this morning due to low blood sugars, 37 during lunch today, currently went up to 240 and 87. He remains on 4 L, 97 on his oxygen. OBJECTIVE: GENERAL: Generalized weak, fatigued, giving appropriate answers. VITAL SIGNS: Blood pressure 130s over 70s, temp 97, pulse 20. LUNGS: Decreased breath sounds. HEART: S1, S2. EXTREMITIES: Left AKA stump. Urine culture shows Celestina albicans. Blood culture, no growth for 48 hours. Awaiting Neurology recommendations for neurology. He had a PICC line put in yesterday per Dr. Ordoñez. The patient is slightly lethargic. No nausea, vomiting, or diarrhea. Hemoglobin is 10.4, white count 9.49. Sodium 142, potassium 3.7. ASSESSMENT: Urinary tract infection, metabolic encephalopathy. He is receiving daptomycin as outpatient for MRSA bacteremia. So far one blood cultures is negative for 24 to 48 hours. CRP 11.10, procalcitonin 0.11. Gamble catheter is changed. A repeat urine culture is still positive, growing yeast. Continue daptomycin, Diflucan. Wait for the discharge pending Dr. Ordoñez's recommendations. Hold the Levemir currently. MMODL / IJN: [id number] /
[2022-11-25] MEDS: HYDROcodone/APAP 7.5-325MG 1 EACH TAB PO PRN ×3 (05:07→20:40)
[2022-11-25] MEDS: PANTOPRAZOLE 40 MG TABLET PO SCH (05:08)
[2022-11-25 06:18] LABS: Glucose,Whole Blood 137 mg/dL (70-110)
[2022-11-25] MEDS: INSULIN ASPART (NovoLOG) 100 UNIT/ML VIAL SQ SCH ×4 (06:41→20:39)
[2022-11-25 09:29] LABS: Anisocytosis Moderate; Basophils % (A) 0 %; Eosinophils # (A) 0.3 k/uL (0-0.7); Eosinophils % (A) 2 %; HCT 34.9 % (39.0-53.0); HGB 11.1 gm/dL (13.0-17.5); Hypochromasia Marked; Lymphocytes # (A) 1.3 k/uL (1.0-4.8); Lymphocytes % (A) 12 %; MCH 30.5 pg (25.0-35.0); MCHC 31.7 g/dL (31.0-37.0); MCV 96.4 fL (80.0-100.0); Macrocytosis Slight; Mean Platelet Volume 8.2; Monocytes # (A) 0.5 k/uL (0-1.0); Monocytes % (A) 5 %; Neutrophils # (A) 8.6 k/uL (1.3-7.7); Neutrophils % (A) 80 %; Platelet Count 336 k/uL (150-450); RBC 3.62 m/uL (4.30-5.90); RDW 20.8 % (11.5-15.5); WBC 10.8 k/uL (3.8-10.6)
[2022-11-25] MEDS: PREGABALIN 75 MG CAP PO SCH ×2 (09:33→15:19)
[2022-11-25] MEDS: FERROUS SULFATE 325 MG TAB PO SCH ×2 (09:33→20:38)
[2022-11-25] MEDS: MULTIVITAMINS, THERA 1 EACH TAB PO SCH (09:33)
[2022-11-25] MEDS: SENNOSIDES 8.6 MG TAB PO SCH ×2 (09:33→20:38)
[2022-11-25] MEDS: LIDOCAINE TOPICAL SCH (09:34)
[2022-11-25] MEDS: MENTHOL TOPICAL SCH (09:34)
[2022-11-25] MEDS: LORATADINE 10 MG TAB PO SCH (09:34)
[2022-11-25] MEDS: FLUCONAZOLE 100 MG TAB PO SCH (09:34)
[2022-11-25] MEDS: DIGOXIN 125 MCG TAB PO SCH (09:34)
[2022-11-25] MEDS: methIMAzole 5 MG TAB PO SCH ×3 (09:35→20:39)
[2022-11-25] MEDS: DABIGATRAN 150 MG CAP PO SCH ×2 (09:35→15:19)
[2022-11-25 09:38] LABS: ALT 22 U/L (4-49); AST 29 U/L (17-59); African American GFR (CKD) >90 (>60 ml/min/1.73 sqM); Albumin 2.3 g/dL (3.5-5.0); Alkaline Phosphatase 131 U/L (38-126); Anion Gap 8 mmol/L; Blood Urea Nitrogen 21 mg/dL (9-20); C Reactive Protein 7.2 mg/dL (<1.0); Calcium 7.5 mg/dL (8.4-10.2); Carbon Dioxide 24 mmol/L (22-30); Chloride 103 mmol/L (98-107); Glucose 152 mg/dL (74-99); Non-African American GFR(CKD) 82 (>60 ml/min/1.73 sqM); Sodium 135 mmol/L (137-145); Total Bilirubin 0.9 mg/dL (0.2-1.3)
[2022-11-25 12:17] LABS: Glucose,Whole Blood 135 mg/dL (70-110)
[2022-11-25] MEDS: METOPROLOL TARTRATE 25 MG TAB PO SCH ×2 (12:40→20:38)
[2022-11-25] MEDS: BUMETANIDE 1 MG TAB PO SCH (15:19)
--- NOTE | 2022-11-25 15:21 | P.PN ---
Subjective Progress Note Date: 11/25/22 Principal diagnosis: Recent MRSA infection and UTI Patient is a 67-year-old male with multiple comorbidity recently admitted to this facility with the patient did have MRSA bacteremia patient did have a extensive work-up including echocardiogram FLO WBC scan all of them were negative for any deep infection patient blood culture were negative as of 11/03/2022 as well as 11/04 and 11/05/2022 patient did get the midline and was advised a 2-week course of IV daptomycin on discharge which the patient is currently receiving [facility] the local [facility] patient has been brought to the ER for mental status changes, did have a positive UA and concern for possible cath associated UTI. On today's evaluation head that is 11/25/2022, patient remains to be afebrile,, the patient is breathing comfortably on 4 L nasal cannula oxygen, patient is more awake and alert today his breathing comfortably on any chest pain or cough no medicine diarrhea or any other changes reported by the nursing staff Objective - Vital Signs Vital signs: Vital Signs Temp 97.9 F 11/25/22 12:36 Pulse 85 11/25/22 12:36 Resp 18 11/25/22 12:36 BP 113/61 11/25/22 12:36 Pulse Ox 94 L 11/25/22 12:36 FiO2 4 11/25/22 08:09 Intake & Output 11/24/22 11/25/22 11/25/22 18:59 06:59 18:59 Intake Total 120 Output Total 900 725 Balance -780 -725 Weight 90.718 kg Intake: Oral 120 Output: Urine 900 725 Other: Voiding Method Indwelling Catheter Indwelling Catheter - Exam GENERAL DESCRIPTION: An elderly male lying in bed in no distress RESPIRATORY SYSTEM: Unlabored breathing , decreased breath sounds at bases HEART: S1 S2 regular rate and rhythm , ABDOMEN: Soft , no tenderness EXTREMITIES: 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 - Labs CBC & Chem 7: 11/25/22 09:02 11/25/22 09:02 Labs: Abnormal Lab Results - Last 24 Hours (Table) 11/24/22 11/25/22 11/25/22 Range/Units 20:06 06:17 09:02 WBC 10.8 H (3.8-10.6) k/uL RBC 3.62 L (4.30-5.90) m/uL Hgb 11.1 L (13.0-17.5) gm/dL Hct 34.9 L (39.0-53.0) % RDW 20.8 H (11.5-15.5) % Sodium (137-145) mmol/L BUN (9-20) mg/dL Glucose (74-99) mg/dL POC Glucose (mg/dL) 129 H 137 H (70-110) mg/dL Calcium (8.4-10.2) mg/dL Alkaline Phosphatase (38-126) U/L C-Reactive Protein (<1.0) mg/dL Total Protein (6.3-8.2) g/dL Albumin (3.5-5.0) g/dL 11/25/22 11/25/22 Range/Units 09:02 12:16 WBC (3.8-10.6) k/uL RBC (4.30-5.90) m/uL Hgb (13.0-17.5) gm/dL Hct (39.0-53.0) % RDW (11.5-15.5) % Sodium 135 L (137-145) mmol/L BUN 21 H (9-20) mg/dL Glucose 152 H (74-99) mg/dL POC Glucose (mg/dL) 135 H (70-110) mg/dL Calcium 7.5 L (8.4-10.2) mg/dL Alkaline Phosphatase 131 H (38-126) U/L C-Reactive Protein 7.2 H (<1.0) mg/dL Total Protein 6.0 L (6.3-8.2) g/dL Albumin 2.3 L (3.5-5.0) g/dL Microbiology - Last 24 Hours (Table) 11/21/22 18:54 Blood Culture - Preliminary Blood Assessment and Plan (1) UTI (urinary tract infection) Current Visit: No Status: Acute Code(s): N39.0 - URINARY TRACT INFECTION, SITE NOT SPECIFIED SNOMED Code(s): 65353337 Plan: 1patient was in the hospital mental status changes likely multifactorial with concern for possible catheter since UTI the patient has significantly positive UA and the patient was receiving daptomycin in the outpatient setting for his recent MRSA bacteremia we will have to make sure no evidence of any recurrence of his bacteremia no evidence of cellulitis was noticed that his midline and no evidence of pneumonia on the chest x-ray. 2blood cultures has been repeated which as negative so far, patient CRP is 11.10 and a procalcitonin one 0.10 3-Gamble catheter has been changed and repeat UA still positive, culture currently growing yeast 4-patient slowly clinically improving and will continue the daptomycin and Diflucan , monitor clinical course closely Time with Patient: Less than 30
[2022-11-25 17:00] LABS: Glucose,Whole Blood 270 mg/dL (70-110)
[2022-11-25] MEDS: DAPTOmycin 500 MG in SODIUM CHLORIDE 0.9% 50 ML IVPB SCH (17:29)
--- NOTE | 2022-11-25 19:16 | CDI ---
Documentation Clarification Form Date: 11/25/2022 6:35:00 PM From: Enid Mederos RN, CCDS Admit Date: 11/20/2022 8:54:00 PM Patient Name: Checo Quijano Visit Number: [id number] Discharge Date: ATTENTION: The Clinical Documentation Specialists (CDI) and [facility] Coding Staff appreciate your assistance in clarifying documentation. Please respond to the clarification below the line at the bottom and electronically sign. The CDI & [facility] Coding staff will review the response and follow-up if needed. Please note: Queries are made part of the Legal Health Record. If you have any questions, please contact the author of this message via ITS. Dr. Quintin Bhakta Sepsis is documented the progress note on 11/22/22 which may lack sufficient clinical evidence/support in the medical record. Additional clarification is requested. 11/21 ID: Patient in hospital mental status changes likely multifactorial with concern for possible catheter since UTI positive UA. History/Risk Factors: Atrial Fibrillation, Asthma, COPD, CVA, Diabetes Mellitus, Hypertension, UTI Clinical Indicators: 67-year-old male present to ED with altered mental status. He has a chronic indwelling Gamble catheter. 11/20 VS: (17:54)123/103 107 20 96.8 100 % 15 % NRB, (21:50) 126/80 15 100 3/L NC 11/20 Labs: WBC 10.4 HGB 11.0, HCT 34.7 Lactic acid 1.4, UA: Ur Leukocyte Esterase Large, urine WBC>182 Treatment: Rocephin 2 GM Daily 11/23-11/23 Daptomycin 500 MG IVPB Q 24 HRS 11/21-11/25 11/20 Gamble catheter changed Please clarify if Sepsis is a valid diagnosis? [ ] Yes, Sepsis is present as evidence by (additional clinical support): [ ] No, Sepsis is ruled out [ ] Other (please specify diagnosis) [ ] Unable to determine (Template Last Revised: September 2020) MTDD
[2022-11-25 20:31] LABS: Glucose,Whole Blood 232 mg/dL (70-110)
[2022-11-25] MEDS: NORTRIPTYLINE 25 MG CAP PO SCH (20:38)
[2022-11-25] MEDS: ATORVASTATIN 80 MG TAB PO SCH (20:38)
--- NOTE | 2022-11-25 23:04 | CT ---
EXAMINATION TYPE: CT chest wo con CT DLP: 801 mGycm, Automated exposure control for dose reduction was used. DATE OF EXAM: 11/25/2022 10:20 PM COMPARISON: Chest radiograph from 11/20/2022., 08/28/2022 CT CLINICAL INDICATION:Male, 67 years old with history of Possible pneumonia; Possible pneumonia TECHNIQUE: Multiple axial images were obtained through the chest. Sagittal and coronal reformats were created for review. Contrast used: none. Oral contrast used: none. FINDINGS: LUNGS/ PLEURA: Increased intralobular septal thickening. There is bilateral trace to small pleural ef fusions. Airspace opacities are seen most pronounced in the left lung. There is paraseptal and centri lobular emphysema changes. There is somewhat diffuse increased attenuation to the background pulmonar y parenchyma. AIRWAY: Mild central airway circumferential wall thickening of the airways. No evidence for bronchiec tasis. HEART: Heart is mildly enlarged for size. There is coronary artery atherosclerosis. Trace pericardial effusion. Pulmonary trunk measures up to 4.2 cm MEDIASTINUM: No gross evidence of adenopathy. VASCULATURE: No aortic aneurysm. MUSCULOSKELETAL: No acute osseous abnormalities, multilevel disc degeneration changes throughout the spine. There is no evidence for thoracic neural foraminal or spinal canal stenosis. Degeneration otero ges with osteophytes and disc space narrowing in the lower cervical spine are present. SOFT TISSUES/LYMPH NODES: Unremarkable. LOWER NECK: No significant findings. UPPER ABDOMEN: No significant findings. IMPRESSION: There is COPD most pronounced with emphysema and pulmonary hypertension with pulmonary vascular conge stion. Airspace opacities within the left lung predominantly suspicious for superimposed infection. B esides the emphysema changes the majority of the findings are new from prior on 08/28/2022
--- NOTE | 2022-11-26 00:42 | PN ---
PROGRESS NOTE SUBJECTIVE: This is a 67-year-old white male, continues to have chest congestion, shortness of breath, purulent green phlegm coming out. CAT scan shows interlobular septal thickening, bilateral trace to small pleural effusions, airspace opacities seen, most pronounced in the left lung. He has centrilobular emphysema. Heart is enlarged, multilevel disc disease, COPD most pronounced, pulmonary hypertension, opacities left lung, suspicious for infection. Broad-spectrum antibiotics will be given as he has cough and purulent phlegm. Sputum culture will be done. OBJECTIVE: CARDIOVASCULAR: S1, S2. LUNGS: Scattered wheeze x4. HEMATOLOGY: Negative for Homans. PSYCH: Fair mood and affect. ASSESSMENT AND PLAN: Left upper lobe pneumonia. Get pulmonary consult, Infectious Disease. Start broad- spectrum antibiotics. Prognosis guarded. Continue to wait for rehab placement. Antibiotics per Infectious Disease. MMODL / IJN: [id number] /
[2022-11-26] MEDS: AZITHROMYCIN 500 MG in SODIUM CHLORIDE 0.9% 250 ML IVPB SCH (00:47)
[2022-11-26] MEDS: SODIUM CHLORIDE 0.9% 1,000 ML IV SCH ×3 (00:48→16:22)
[2022-11-26] MEDS: HYDROcodone/APAP 7.5-325MG 1 EACH TAB PO PRN ×4 (03:39→22:12)
[2022-11-26 06:12] LABS: Glucose,Whole Blood 282 mg/dL (70-110)
[2022-11-26] MEDS: PANTOPRAZOLE 40 MG TABLET PO SCH (06:49)
[2022-11-26] MEDS: INSULIN ASPART (NovoLOG) 100 UNIT/ML VIAL SQ SCH ×4 (06:50→22:08)
[2022-11-26 09:02] LABS: Anisocytosis Moderate; HCT 31.6 % (39.0-53.0); HGB 9.9 gm/dL (13.0-17.5); Hypochromasia Marked; MCH 30.3 pg (25.0-35.0); MCHC 31.5 g/dL (31.0-37.0); MCV 96.3 fL (80.0-100.0); Macrocytosis Slight; Platelet Count 327 k/uL (150-450); RBC 3.28 m/uL (4.30-5.90); RDW 20.8 % (11.5-15.5)
[2022-11-26 09:28] LABS: Albumin 2.2 g/dL (3.5-5.0); Calcium 7.3 mg/dL (8.4-10.2); Total Bilirubin 0.7 mg/dL (0.2-1.3); Total Protein 5.8 g/dL (6.3-8.2)
[2022-11-26] MEDS: MULTIVITAMINS, THERA 1 EACH TAB PO SCH (10:08)
[2022-11-26] MEDS: METOPROLOL TARTRATE 25 MG TAB PO SCH ×2 (10:08→22:06)
[2022-11-26] MEDS: PREGABALIN 75 MG CAP PO SCH ×2 (10:08→16:23)
[2022-11-26] MEDS: SENNOSIDES 8.6 MG TAB PO SCH ×2 (10:08→22:06)
[2022-11-26] MEDS: LIDOCAINE TOPICAL SCH (10:09)
[2022-11-26] MEDS: LORATADINE 10 MG TAB PO SCH (10:09)
[2022-11-26] MEDS: FERROUS SULFATE 325 MG TAB PO SCH ×2 (10:09→22:06)
[2022-11-26] MEDS: FLUCONAZOLE 100 MG TAB PO SCH (10:09)
[2022-11-26] MEDS: MENTHOL TOPICAL SCH (10:09)
[2022-11-26] MEDS: DABIGATRAN 150 MG CAP PO SCH ×2 (10:09→16:23)
[2022-11-26] MEDS: DIGOXIN 125 MCG TAB PO SCH (10:09)
[2022-11-26] MEDS: methIMAzole 5 MG TAB PO SCH ×3 (10:10→22:07)
[2022-11-26 10:19] LABS: Neutrophils % (M) 79 %; Nucleated Red Blood Cells 0 /100 WBC (0-0); Total Cells Counted 100
[2022-11-26 10:21] LABS: Poikilocytosis (M) Present
--- NOTE | 2022-11-26 11:25 | P.PN ---
Subjective Progress Note Date: 11/25/22 Patient was seen for a follow-up. Patient is laying in the bed. Appears somewhat depressed. Patient complains of left lower quadrant pain, mainly when he coughs. Patient states that when he is walking, it hurts more, although he has been bedbound. Per nursing report, he sometimes get confused intermi ttently, almost like delirium. Admits to having some headache. No dizziness. Patient appears slightly sleepy. Objective - Vital Signs Vital signs: Vital Signs Temp 97.7 F 11/25/22 15:18 Pulse 90 11/25/22 15:18 Resp 18 11/25/22 15:18 BP 94/62 11/25/22 15:18 Pulse Ox 93 L 11/25/22 15:18 FiO2 4 11/25/22 08:09 Intake & Output 11/24/22 11/25/22 11/25/22 18:59 06:59 18:59 Intake Total 120 100 Output Total 900 725 Balance -780 -725 100 Weight 90.718 kg Intake: Oral 120 100 Output: Urine 900 725 Other: Voiding Method Indwelling Catheter Indwelling Catheter Indwelling Catheter - Exam Patient is slightly encephalopathic. He has mild myoclonic jerks of outstretched hands. Patient easily gets upset, therefore was deferred. No facial droop, speech is clear. - Labs CBC & Chem 7: 11/26/22 08:24 11/26/22 08:24 Labs: Abnormal Lab Results - Last 24 Hours (Table) 11/24/22 11/25/22 11/25/22 Range/Units 20:06 06:17 09:02 WBC 10.8 H (3.8-10.6) k/uL RBC 3.62 L (4.30-5.90) m/uL Hgb 11.1 L (13.0-17.5) gm/dL Hct 34.9 L (39.0-53.0) % RDW 20.8 H (11.5-15.5) % Neutrophils # 8.6 H (1.3-7.7) k/uL Sodium (137-145) mmol/L BUN (9-20) mg/dL Glucose (74-99) mg/dL POC Glucose (mg/dL) 129 H 137 H (70-110) mg/dL Calcium (8.4-10.2) mg/dL Alkaline Phosphatase (38-126) U/L C-Reactive Protein (<1.0) mg/dL Total Protein (6.3-8.2) g/dL Albumin (3.5-5.0) g/dL 11/25/22 11/25/22 Range/Units 09:02 12:16 WBC (3.8-10.6) k/uL RBC (4.30-5.90) m/uL Hgb (13.0-17.5) gm/dL Hct (39.0-53.0) % RDW (11.5-15.5) % Neutrophils # (1.3-7.7) k/uL Sodium 135 L (137-145) mmol/L BUN 21 H (9-20) mg/dL Glucose 152 H (74-99) mg/dL POC Glucose (mg/dL) 135 H (70-110) mg/dL Calcium 7.5 L (8.4-10.2) mg/dL Alkaline Phosphatase 131 H (38-126) U/L C-Reactive Protein 7.2 H (<1.0) mg/dL Total Protein 6.0 L (6.3-8.2) g/dL Albumin 2.3 L (3.5-5.0) g/dL Microbiology - Last 24 Hours (Table) 11/21/22 18:54 Blood Culture - Preliminary Blood Assessment and Plan Assessment: * Altered mental status likely due to mild delirium from acute UTI. Patient has slightly fluctuating mental status related to delirium. * Acute UTI * Previous history of bacteremia with MRSA. * History of atrial fibrillation, on Pradaxa * History of migraine * Diabetes * Chronic renal disease * Hypertension * Hyperlipidemia * History of left above-knee amputation. * History of pulmonary embolism, status post Isabell filter placement. Plan: * Patient has somewhat fluctuating mental status, sometimes more oriented, then other times slightly disoriented, or confused. This is consistent with mild delirium, related to UTI. Delirium will improve, once UTI comes under control. * Patient currently on ceftriaxone and daptomycin for UTI. Also on Diflucan. ID on board. * Cardiology also on board for atrial fibrillation. * Previous workup as below: * Carotid Doppler revealed no evidence for hemodynamically significant stenosis. Antegrade flow in both vertebral arteries. * 2-D echo revealed moderately impaired left ventricle systolic function with EF 35-40%. Moderate LVH, moderately increased left atrial area. Moderate pulmonary hypertension. * FLO performed 11/04/2022 revealed normal aortic valve with mild AR. Mitral valves are normal. Left atrial appendage is free of any thrombus. Left maria teresa tricular ejection fraction 35%. Moderate biatrial enlargement. No evidence of vegetation. Extensive smoke noted throughout examination. * Patient has atrial fibrillation. Continue Pradaxa. * Hemoglobin A1c 8.6. Optimize control of diabetes to target A1c <7.0 * Lipid panel with cholesterol 123, LDL 75, HDL 37 and triglycerides 52. Continue Lipitor 80 mg daily. * TSH normal. * Neurologically no other workup indicated. Neurology will sign off. Please reconsult if any other concerns.
[2022-11-26 11:56] LABS: Glucose,Whole Blood 148 mg/dL (70-110)
--- NOTE | 2022-11-26 13:23 | P.CNPUL ---
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 Patient was admitted initially on 11/21/2022, and has been seen by many consultants for multiple medical problems including his ongoing chronic medical problems, congestive heart failure, atrial fibrillation with RVR, and he was seen by inf ectious disease on consultation as well as cardiology. Infectious disease on the case is concerned about ongoing infection and the patient was laced on daptomycin, no clear-cut evidence of infection noted so far, blood cultures have been negative since admission, and his urine culture has shown mostly Celestina albicans. CT of the chest was done by the admitting physician on 11/25, I reviewed the CT of the chest, there is evidence of COPD, emphysema, pulmonary hypertension, pulmonary vascular congestion, and nonspecificabnormalities could be scarring or could be underlying pneumonic process, however the patient has no significant pulmonary symptoms to suggest pneumonia. Nonetheless the patient is receiving proper antibiotics anyway. Considering his abnormal CT of the chest, this consult was initiated. CBC is relatively normally left lites are normal renal profile is normal Review of Systems CONSTITUTIONAL: Denies fever or chills., No weight loss. HEENT: Negative. CARDIOVASCULAR: Negative. RESPIRATORY: Negative. GASTROINTESTINAL: Negative. HEMATOLOGIC: Negative GENITOURINARY: Negative SKIN: Negative Past Medical History Past Medical History: Atrial Fibrillation, Asthma, COPD, CVA/TIA, Diabetes Mellitus, Deep Vein Thrombosis (DVT), GERD/Reflux, Hyperlipidemia, Hypertension, Neurologic Disorder, Osteoarthritis (OA), Pneumonia, Pulmonary Embolus (PE), Skin Disorder, Vascular Disorder Additional Past Medical History / Comment(s): Pt admitted to [facility] on 11/20/20 with hyperkalemia, hyperglycemia, uncontrolled diabetes. Other hx: Lupus anticoagulant, DVTs bilateral legs, PEs bilateral lungs in , pt has isabell filter, L AKA/wheelchair bound, NIDDM type II, neuropathy bilateral hands, wound care patient for buttock wound, now healed, TIAs, pneumothorax, past migraines, chronic low back pain, R leg edema at times, varicosities. History of Any Multi-Drug Resistant Organisms: MRSA Date of last positivie culture/infection: 10/30/2022 MDRO Source:: Bacteremia Past Surgical History: Adenoidectomy, Appendectomy, Tonsillectomy Additional Past Surgical History / Comment(s): 1980s [place] filter, stents in vessels "in pelvic area", total L hip arthroplasty, vein strippings, colonoscopy. left leg amputation Past Anesthesia/Blood Transfusion Reactions: No Reported Reaction Additional Past Anesthesia/Blood Transfusion Reaction / Comment(s): Pt has received blood in past without reaction. Past Psychological History: No Psychological Hx Reported Smoking Status: Former smoker Past Alcohol Use History: None Reported Past Drug Use History: None Reported - Past Family History Mother Family Medical History: Coronary Artery Disease (CAD), Myocardial Infarction (LA), Vascular Disorder Additional Family Medical History / Comment(s): heart disease, peripheral vascular disease. Father Family Medical History: Diabetes Mellitus, Renal Disease Medications and Allergies Home Medications Medication Instructions Recorded Confirmed Type Atorvastatin [Lipitor] 80 mg PO HS 08/27/22 11/20/22 History Loratadine 10 mg PO DAILY 08/27/22 11/20/22 History Dabigatran [Pradaxa] 150 mg PO BID@0800,1600 10/28/22 11/20/22 History Ferrous Sulfate [Iron (65 MG 325 mg PO BID 10/28/22 11/20/22 History Elemental)] Omeprazole [PriLOSEC] 20 mg PO DAILY 10/28/22 11/20/22 History Sennosides [Senokot] 8.6 mg PO BID 10/28/22 11/20/22 History Bumetanide [BUMEX] 1 mg PO DAILY@1600 tab 11/09/22 11/20/22 Rx Bumetanide [BUMEX] 2 mg PO DAILY tab 11/09/22 11/20/22 Rx Insulin Detemir (Levemir) [Levemir] 14 unit SQ HS each 11/09/22 11/20/22 Rx Ipratropium-Albuterol Nebulize 3 ml INHALATION RT-Q6H PRN each 11/09/22 11/20/22 Rx [Duoneb 0.5 mg-3 mg/3 ml Soln] methIMAzole [Tapazole] 5 mg PO TID tab 11/09/22 11/20/22 Rx Acetaminophen Tab [Tylenol] 650 mg PO Q6H PRN 11/20/22 11/20/22 History HYDROcodone/APAP 7.5-325MG [Skytop 1 tab PO Q6HR PRN 11/20/22 11/20/22 History 7.5-325] Healthshake 1 dose PO TID@0800,1200,1800 11/20/22 11/20/22 History INSULIN ASPART (NovoLOG) [NovoLOG See Protocol SQ ACHS@06,11,16,20 11/20/22 11/20/22 History (formulary)] Lidocaine-Menthol 3.6-1.25% Patches 1 patch TOPICAL DAILY@0800 11/20/22 11/20/22 History Metoprolol Tartrate [Lopressor] 75 mg PO BID 11/20/22 11/20/22 History Multivitamins, Thera [Multivitamin 1 tab PO DAILY@0800 11/20/22 11/20/22 History (formulary)] Nortriptyline HCl 75 mg PO HS 11/20/22 11/20/22 History Pregabalin [Lyrica] 150 mg PO BID@0800,1600 11/20/22 11/20/22 History Allergies Allergy/AdvReac Type Severity Reaction Status Date / Time baclofen Allergy Unknown Verified 11/20/22 19:09 Iodinated Contrast Media Allergy Unknown Verified 11/20/22 19:09 sulfamethoxazole Allergy Unknown Verified 11/20/22 19:09 [From Bactrim] trimethoprim [From Bactrim] Allergy Unknown Verified 11/20/22 19:09 apixaban [From Eliquis] AdvReac "felt Verified 11/20/22 19:09 funny" Physical Exam Vitals: Vital Signs Temp Pulse Resp BP Pulse Ox 11/26/22 12:34 98.2 F 84 18 115/72 94 L 11/26/22 10:06 97.9 F 68 18 99/58 93 L 11/26/22 08:31 94 L 11/26/22 03:44 98.0 F 74 18 104/69 94 L 11/26/22 00:00 98.5 F 81 18 112/71 91 L 11/25/22 19:51 98.3 F 101 H 18 107/70 91 L 11/25/22 15:18 97.7 F 90 18 94/62 93 L Intake and Output 11/25/22 11/26/22 11/26/22 22:59 06:59 14:59 Intake Total 0 360 Output Total 500 700 Balance -500 -700 360 Intake: Oral 0 360 Output: Urine 500 700 Uretheral (Gamble) 500 Other: Voiding Method Indwelling Catheter Indwelling Catheter Physical Exam: Revealed 67-year-old white male in no distress, on 4 L nasal cannula Head: Atraumatic normocephalic. HEENT:[Neck is supple.] [No neck masses.] [No thyromegaly.] [No JVD.] Chest: Diminished breath sounds and crackles at the bases no rhonchi no wheezes Cardiac Exam: Irregular irregular rhythm. Normal S1 and S2, no S3 gallop. No murmur. Abdomen: [Soft, nontender, no megaly, no rebound, no guarding, normal bowel sounds.] Extremities: [No clubbing, no edema, no cyanosis.], Evidence of left above-knee amputation. Neurological Exam: Alert and oriented 3 focal deficits. Psychiatric: Depressed mood, flat affect, normal mental status otherwise. Results - Laboratory Findings CBC and BMP: 11/26/22 08:24 11/26/22 08:24 PT/INR, D-dimer PT 15.0 sec (9.0-12.0) H 11/20/22 18:07 INR 1.5 (<1.2) H 11/20/22 18:07 Abnormal lab findings: Abnormal Labs 11/20/22 11/20/22 11/20/22 18:07 18:07 18:07 WBC RBC 3.74 L Hgb 11.0 L Hct 34.7 L MCHC RDW 21.1 H Immature Gran # Neutrophils # 8.3 H Neutrophils # (Manual) Lymphocytes # PT 15.0 H INR 1.5 H APTT 44.8 H Sodium Carbon Dioxide BUN BUN/Creatinine Ratio Glucose POC Glucose (mg/dL) Calcium Alkaline Phosphatase C-Reactive Protein Total Protein Albumin Globulin Albumin/Globulin Ratio Lipase Procalcitonin Urine Protein Urine Blood Ur Leukocyte Esterase Urine RBC Urine WBC Urine WBC Clumps Urine Bacteria Hyaline Casts Urine Mucus Urine Yeast (Budding) Urine Opiates Screen Detected H U Tricyclic Antidepress Detected H 11/20/22 11/20/22 11/21/22 18:07 18:07 05:27 WBC RBC Hgb Hct MCHC RDW Immature Gran # Neutrophils # Neutrophils # (Manual) Lymphocytes # PT INR APTT Sodium Carbon Dioxide 31 H BUN 30 H BUN/Creatinine Ratio Glucose POC Glucose (mg/dL) Calcium 7.9 L Alkaline Phosphatase 153 H C-Reactive Protein Total Protein Albumin 2.7 L Globulin Albumin/Globulin Ratio Lipase 15 L Procalcitonin 0.10 H Urine Protein 1+ H Urine Blood Moderate H Ur Leukocyte Esterase Large H Urine RBC 38 H Urine WBC >182 H Urine WBC Clumps Few H Urine Bacteria Occasional H Hyaline Casts Urine Mucus Rare H Urine Yeast (Budding) Many H Urine Opiates Screen U Tricyclic Antidepress 11/21/22 11/21/22 11/21/22 05:27 05:27 20:32 WBC RBC 3.57 L Hgb 10.4 L Hct 34.2 L MCHC 30.4 L RDW 22.8 H Immature Gran # 0.08 H Neutrophils # 7.78 H Neutrophils # (Manual) Lymphocytes # 0.81 L PT INR APTT Sodium Carbon Dioxide BUN BUN/Creatinine Ratio 23.09 H Glucose POC Glucose (mg/dL) 206 H Calcium 8.2 L Alkaline Phosphatase 142 H C-Reactive Protein 11.10 H Total Protein Albumin 2.4 L Globulin 3.8 H Albumin/Globulin Ratio 0.63 L Lipase Procalcitonin Urine Protein Urine Blood Ur Leukocyte Esterase Urine RBC Urine WBC Urine WBC Clumps Urine Bacteria Hyaline Casts Urine Mucus Urine Yeast (Budding) Urine Opiates Screen U Tricyclic Antidepress 11/21/22 11/22/22 11/22/22 23:29 06:19 11:28 WBC RBC Hgb Hct MCHC RDW Immature Gran # Neutrophils # Neutrophils # (Manual) Lymphocytes # PT INR APTT Sodium Carbon Dioxide BUN BUN/Creatinine Ratio Glucose POC Glucose (mg/dL) 126 H 171 H Calcium Alkaline Phosphatase C-Reactive Protein Total Protein Albumin Globulin Albumin/Globulin Ratio Lipase Procalcitonin Urine Protein 1+ H Urine Blood Moderate H Ur Leukocyte Esterase Large H Urine RBC 26 H Urine WBC >182 H Urine WBC Clumps Many H Urine Bacteria Rare H Hyaline Casts 29 H Urine Mucus Occasional H Urine Yeast (Budding) Occasional H Urine Opiates Screen U Tricyclic Antidepress 11/22/22 11/22/22 11/23/22 16:41 20:41 06:03 WBC RBC Hgb Hct MCHC RDW Immature Gran # Neutrophils # Neutrophils # (Manual) Lymphocytes # PT INR APTT Sodium Carbon Dioxide BUN BUN/Creatinine Ratio Glucose POC Glucose (mg/dL) 213 H 212 H 131 H Calcium Alkaline Phosphatase C-Reactive Protein Total Protein Albumin Globulin Albumin/Globulin Ratio Lipase Procalcitonin Urine Protein Urine Blood Ur Leukocyte Esterase Urine RBC Urine WBC Urine WBC Clumps Urine Bacteria Hyaline Casts Urine Mucus Urine Yeast (Budding) Urine Opiates Screen U Tricyclic Antidepress 11/23/22 11/23/22 11/23/22 11:34 16:24 20:11 WBC RBC Hgb Hct MCHC RDW Immature Gran # Neutrophils # Neutrophils # (Manual) Lymphocytes # PT INR APTT Sodium Carbon Dioxide BUN BUN/Creatinine Ratio Glucose POC Glucose (mg/dL) 151 H 285 H 332 H Calcium Alkaline Phosphatase C-Reactive Protein Total Protein Albumin Globulin Albumin/Globulin Ratio Lipase Procalcitonin Urine Protein Urine Blood Ur Leukocyte Esterase Urine RBC Urine WBC Urine WBC Clumps Urine Bacteria Hyaline Casts Urine Mucus Urine Yeast (Budding) Urine Opiates Screen U Tricyclic Antidepress 11/24/22 11/24/22 11/24/22 05:55 11:41 12:02 WBC RBC Hgb Hct MCHC RDW Immature Gran # Neutrophils # Neutrophils # (Manual) Lymphocytes # PT INR APTT Sodium Carbon Dioxide BUN BUN/Creatinine Ratio Glucose POC Glucose (mg/dL) 300 H 37 L 240 H Calcium Alkaline Phosphatase C-Reactive Protein Total Protein Albumin Globulin Albumin/Globulin Ratio Lipase Procalcitonin Urine Protein Urine Blood Ur Leukocyte Esterase Urine RBC Urine WBC Urine WBC Clumps Urine Bacteria Hyaline Casts Urine Mucus Urine Yeast (Budding) Urine Opiates Screen U Tricyclic Antidepress 11/24/22 11/25/22 11/25/22 20:06 06:17 09:02 WBC 10.8 H RBC 3.62 L Hgb 11.1 L Hct 34.9 L MCHC RDW 20.8 H Immature Gran # Neutrophils # 8.6 H Neutrophils # (Manual) Lymphocytes # PT INR APTT Sodium Carbon Dioxide BUN BUN/Creatinine Ratio Glucose POC Glucose (mg/dL) 129 H 137 H Calcium Alkaline Phosphatase C-Reactive Protein Total Protein Albumin Globulin Albumin/Globulin Ratio Lipase Procalcitonin Urine Protein Urine Blood Ur Leukocyte Esterase Urine RBC Urine WBC Urine WBC Clumps Urine Bacteria Hyaline Casts Urine Mucus Urine Yeast (Budding) Urine Opiates Screen U Tricyclic Antidepress 11/25/22 11/25/22 11/25/22 09:02 12:16 16:57 WBC RBC Hgb Hct MCHC RDW Immature Gran # Neutrophils # Neutrophils # (Manual) Lymphocytes # PT INR APTT Sodium 135 L Carbon Dioxide BUN 21 H BUN/Creatinine Ratio Glucose 152 H POC Glucose (mg/dL) 135 H 270 H Calcium 7.5 L Alkaline Phosphatase 131 H C-Reactive Protein 7.2 H Total Protein 6.0 L Albumin 2.3 L Globulin Albumin/Globulin Ratio Lipase Procalcitonin Urine Protein Urine Blood Ur Leukocyte Esterase Urine RBC Urine WBC Urine WBC Clumps Urine Bacteria Hyaline Casts Urine Mucus Urine Yeast (Budding) Urine Opiates Screen U Tricyclic Antidepress 11/25/22 11/26/22 11/26/22 20:30 06:10 08:24 WBC RBC 3.28 L Hgb 9.9 L Hct 31.6 L MCHC RDW 20.8 H Immature Gran # Neutrophils # Neutrophils # (Manual) 7.90 H Lymphocytes # PT INR APTT Sodium Carbon Dioxide BUN BUN/Creatinine Ratio Glucose POC Glucose (mg/dL) 232 H 282 H Calcium Alkaline Phosphatase C-Reactive Protein Total Protein Albumin Globulin Albumin/Globulin Ratio Lipase Procalcitonin Urine Protein Urine Blood Ur Leukocyte Esterase Urine RBC Urine WBC Urine WBC Clumps Urine Bacteria Hyaline Casts Urine Mucus Urine Yeast (Budding) Urine Opiates Screen U Tricyclic Antidepress 11/26/22 11/26/22 08:24 11:49 WBC RBC Hgb Hct MCHC RDW Immature Gran # Neutrophils # Neutrophils # (Manual) Lymphocytes # PT INR APTT Sodium 135 L Carbon Dioxide BUN BUN/Creatinine Ratio Glucose 121 H POC Glucose (mg/dL) 148 H Calcium 7.3 L Alkaline Phosphatase C-Reactive Protein Total Protein 5.8 L Albumin 2.2 L Globulin Albumin/Globulin Ratio Lipase Procalcitonin Urine Protein Urine Blood Ur Leukocyte Esterase Urine RBC Urine WBC Urine WBC Clumps Urine Bacteria Hyaline Casts Urine Mucus Urine Yeast (Budding) Urine Opiates Screen U Tricyclic Antidepress - Diagnostic Findings CT scan - chest: image reviewed (As noted in HPI, patient has bilateral pleural effusions, COPD, and nonspecific fibrotic changes in the lungs, underlying air space disease is not entirely ruled out but felt to be less likely) Assessment and Plan Assessment: Impression: Altered mental status, acute metabolic encephalopathy with mild delirium, resolved Acute urinary tract infection History of MRSA bacteremia, but not on this admission. Chronic systolic congestive heart failure, ejection fraction of 30% Chronic atrial fibrillation History of migraine cephalgia Chronic renal disease Left above-knee amputation Remote history of pulmonary embolism and Isabell filter placement History of COPD, relatively asymptomatic and in active at this point. History of mild nonobstructive coronary artery disease Recommendation: Reviewed the CT of the chest, the findings are nonspecific. Clinically I don't see any evidence of pneumonia his last pro-calcitonin level was 0.1 Continue treatment plan as per infectious disease on the case, patient is now on daptomycin and Diflucan for presumptive urinary tract infection and candiduria. Continue treatment plan as per cardiology and as per neurology on the case. We'll continue to follow as needed Time with Patient: Greater than 30
[2022-11-26] MEDS: BUMETANIDE 1 MG TAB PO SCH (16:23)
[2022-11-26 16:50] LABS: Glucose,Whole Blood 213 mg/dL (70-110)
[2022-11-26] MEDS: DAPTOmycin 500 MG in SODIUM CHLORIDE 0.9% 50 ML IVPB SCH (17:20)
[2022-11-26 20:06] LABS: Glucose,Whole Blood 164 mg/dL (70-110)
[2022-11-26] MEDS: ATORVASTATIN 80 MG TAB PO SCH (22:06)
[2022-11-26] MEDS: NORTRIPTYLINE 25 MG CAP PO SCH (22:07)
--- NOTE | 2022-11-26 22:29 | P.PN ---
Subjective Progress Note Date: 11/26/22 Principal diagnosis: Recent MRSA infection and UTI Patient is a 67-year-old male with multiple comorbidity recently admitted to this facility with the patient did have MRSA bacteremia patient did have a extensive work-up including echocardiogram FLO WBC scan all of them were negative for any deep infection patient blood culture were negative as of 11/03/2022 as well as 11/04 and 11/05/2022 patient did get the midline and was advised a 2-week course of IV daptomycin on discharge which the [facility] patient has been brought to the ER for mental status changes, did have a positive UA and concern for possible cath associated UTI. On today's evaluation head that is 11/26/2022, the patient denies having any fever or any chills patient is breathing comfortably denies any chest pain or shortness of breath occasional cough no nausea no vomiting no abdominal pain no diarrhea Objective - Vital Signs Vital signs: Vital Signs Temp 97.9 F 11/26/22 10:06 Pulse 68 11/26/22 10:06 Resp 18 11/26/22 10:06 BP 99/58 11/26/22 10:06 Pulse Ox 93 L 11/26/22 10:06 FiO2 4 11/25/22 08:09 Intake & Output 11/25/22 11/26/22 11/26/22 18:59 06:59 18:59 Intake Total 100 0 360 Output Total 500 700 Balance -400 -700 360 Intake: Oral 100 0 360 Output: Urine 500 700 Uretheral (Gamble) 500 Other: Voiding Method Indwelling Catheter Indwelling Catheter - Exam GENERAL DESCRIPTION: An elderly male lying in bed in no distress RESPIRATORY SYSTEM: Unlabored breathing , decreased breath sounds at bases HEART: S1 S2 regular rate and rhythm , ABDOMEN: Soft , no tenderness EXTREMITIES: 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 - Labs CBC & Chem 7: 11/26/22 08:24 11/26/22 08:24 Labs: Abnormal Lab Results - Last 24 Hours (Table) 11/25/22 11/25/22 11/25/22 Range/Units 09:02 12:16 16:57 RBC (4.30-5.90) m/uL Hgb (13.0-17.5) gm/dL Hct (39.0-53.0) % RDW (11.5-15.5) % Neutrophils # 8.6 H (1.3-7.7) k/uL Neutrophils # (Manual) (1.3-7.7) k/uL Sodium (137-145) mmol/L Glucose (74-99) mg/dL POC Glucose (mg/dL) 135 H 270 H (70-110) mg/dL Calcium (8.4-10.2) mg/dL Total Protein (6.3-8.2) g/dL Albumin (3.5-5.0) g/dL 11/25/22 11/26/22 11/26/22 Range/Units 20:30 06:10 08:24 RBC 3.28 L (4.30-5.90) m/uL Hgb 9.9 L (13.0-17.5) gm/dL Hct 31.6 L (39.0-53.0) % RDW 20.8 H (11.5-15.5) % Neutrophils # (1.3-7.7) k/uL Neutrophils # (Manual) 7.90 H (1.3-7.7) k/uL Sodium (137-145) mmol/L Glucose (74-99) mg/dL POC Glucose (mg/dL) 232 H 282 H (70-110) mg/dL Calcium (8.4-10.2) mg/dL Total Protein (6.3-8.2) g/dL Albumin (3.5-5.0) g/dL 11/26/22 Range/Units 08:24 RBC (4.30-5.90) m/uL Hgb (13.0-17.5) gm/dL Hct (39.0-53.0) % RDW (11.5-15.5) % Neutrophils # (1.3-7.7) k/uL Neutrophils # (Manual) (1.3-7.7) k/uL Sodium 135 L (137-145) mmol/L Glucose 121 H (74-99) mg/dL POC Glucose (mg/dL) (70-110) mg/dL Calcium 7.3 L (8.4-10.2) mg/dL Total Protein 5.8 L (6.3-8.2) g/dL Albumin 2.2 L (3.5-5.0) g/dL Microbiology - Last 24 Hours (Table) 11/21/22 18:54 Blood Culture - Preliminary Blood Assessment and Plan (1) UTI (urinary tract infection) Current Visit: No Status: Acute Code(s): N39.0 - URINARY TRACT INFECTION, SITE NOT SPECIFIED SNOMED Code(s): 28792659 Plan: 1patient was in the hospital mental status changes likely multifactorial with concern for possible catheter since UTI the patient has significantly positive UA and the patient was receiving daptomycin in the outpatient setting for his recent MRSA bacteremia we will have to make sure no evidence of any recurrence of his bacteremia no evidence of cellulitis was noticed that his midline and no evidence of pneumonia on the chest x-ray. 2blood cultures has been repeated which as negative so far, patient CRP is 11.10 and a procalcitonin one 0.10 3-Gamble catheter has been changed and repeat UA still positive, urine culture grew yeast 4-Patient remains to be afebrile White count is normal blood culture has been negative the patient will continue the daptomycin and Diflucan , monitor clinical course closely Time with Patient: Less than 30
[2022-11-27] MEDS: SODIUM CHLORIDE 0.9% 1,000 ML IV SCH ×4 (00:23→23:05)
[2022-11-27] MEDS: AZITHROMYCIN 500 MG in SODIUM CHLORIDE 0.9% 250 ML IVPB SCH ×2 (00:24→23:51)
--- NOTE | 2022-11-27 00:46 | PN ---
PROGRESS NOTE SUBJECTIVE: A 67-year-old white male. CT scan shows pneumonia. He has COPD, systolic heart failure. He is still sleepy, lethargic. He is saturating 93% on 4 L. Blood pressure 120s over 80s, temp 97.9, pulse is 96, respiratory rate 12 to 18. OBJECTIVE: CARDIOVASCULAR: S1, S2. LUNGS: Scattered rhonchi x4. HEMATOLOGY: Negative for Homans. PSYCH: Poor mood and affect. LABORATORY DATA: Show white count 10, hemoglobin 9.9, sodium 135, potassium 4.0, GFR is 75, glucose 77, albumin is low at 2.2. Continue current treatment. Prognosis guarded. Continue IV antibiotics. Possible discharge home once the infection sacrum. MMODL / IJN: [id number] /
[2022-11-27 06:10] LABS: Glucose,Whole Blood 145 mg/dL (70-110)
[2022-11-27] MEDS: INSULIN ASPART (NovoLOG) 100 UNIT/ML VIAL SQ SCH ×4 (06:18→21:18)
[2022-11-27] MEDS: PANTOPRAZOLE 40 MG TABLET PO SCH (06:19)
[2022-11-27] MEDS: HYDROcodone/APAP 7.5-325MG 1 EACH TAB PO PRN ×3 (06:21→21:26)
[2022-11-27] MEDS: PREGABALIN 75 MG CAP PO SCH ×2 (08:49→16:14)
[2022-11-27] MEDS: methIMAzole 5 MG TAB PO SCH ×3 (08:50→21:27)
[2022-11-27] MEDS: DIGOXIN 125 MCG TAB PO SCH (08:50)
[2022-11-27] MEDS: FERROUS SULFATE 325 MG TAB PO SCH ×2 (08:50→21:27)
[2022-11-27] MEDS: METOPROLOL TARTRATE 25 MG TAB PO SCH ×2 (08:50→21:26)
[2022-11-27] MEDS: LORATADINE 10 MG TAB PO SCH (08:50)
[2022-11-27] MEDS: SENNOSIDES 8.6 MG TAB PO SCH ×2 (08:50→21:27)
[2022-11-27] MEDS: MULTIVITAMINS, THERA 1 EACH TAB PO SCH (08:50)
[2022-11-27] MEDS: FLUCONAZOLE 100 MG TAB PO SCH (08:50)
[2022-11-27] MEDS: MENTHOL TOPICAL SCH (08:51)
[2022-11-27] MEDS: LIDOCAINE TOPICAL SCH (08:51)
[2022-11-27] MEDS: DABIGATRAN 150 MG CAP PO SCH ×2 (08:51→16:14)
[2022-11-27 09:29] LABS: ALT 19 U/L (4-49); AST 23 U/L (17-59); African American GFR (CKD) >90 (>60 ml/min/1.73 sqM); Albumin 2.4 g/dL (3.5-5.0); Alkaline Phosphatase 130 U/L (38-126); Anion Gap 6 mmol/L; Blood Urea Nitrogen 18 mg/dL (9-20); Calcium 7.7 mg/dL (8.4-10.2); Carbon Dioxide 26 mmol/L (22-30); Chloride 104 mmol/L (98-107); Glucose 188 mg/dL (74-99); Non-African American GFR(CKD) >90 (>60 ml/min/1.73 sqM); Sodium 136 mmol/L (137-145); Total Bilirubin 0.8 mg/dL (0.2-1.3); Total Protein 6.1 g/dL (6.3-8.2)
[2022-11-27 09:40] LABS: Anisocytosis Moderate; HCT 35.2 % (39.0-53.0); HGB 11.1 gm/dL (13.0-17.5); Hypochromasia Marked; MCH 30.8 pg (25.0-35.0); MCHC 31.6 g/dL (31.0-37.0); MCV 97.3 fL (80.0-100.0); Macrocytosis Slight; Mean Platelet Volume 8.1; Platelet Count 344 k/uL (150-450); RBC 3.61 m/uL (4.30-5.90); RDW 20.5 % (11.5-15.5); WBC 8.3 k/uL (3.8-10.6)
[2022-11-27 10:33] LABS: Eosinophils # (M) 0.17 k/uL (0-0.7); Lymphocytes # (M) 0.83 k/uL (1.0-4.8); Neutrophils # (M) 6.81 k/uL (1.3-7.7); Neutrophils % (M) 82 %; Nucleated Red Blood Cells 0 /100 WBC (0-0); Total Cells Counted 100
[2022-11-27 10:35] LABS: Poikilocytosis (M) Present
[2022-11-27 11:46] LABS: Glucose,Whole Blood 216 mg/dL (70-110)
--- NOTE | 2022-11-27 15:33 | P.PN ---
Subjective Progress Note Date: 11/27/22 Principal diagnosis: Recent MRSA infection and UTI Patient is a 67-year-old male with multiple comorbidity recently admitted to this facility with the patient did have MRSA bacteremia patient did have a extensive work-up including echocardiogram FLO WBC scan all of them were negative for any deep infection patient blood culture were negative as of 11/03/2022 as well as 11/04 and 11/05/2022 patient did get the midline and was advised a 2-week course of IV daptomycin on discharge which the [facility] patient has been brought to the ER for mental status changes, did have a positive UA and concern for possible cath associated UTI. On today's evaluation head that is 11/27/2022, the patient remains to be afebrile, patient is breathing comfortably on a 4 L nasal cannula oxygen, the patient denies any chest pain or shortness of breath occasional cough mention bringing up some sputum, no nausea no vomiting no abdominal pain no diarrhea Objective - Vital Signs Vital signs: Vital Signs Temp 98.0 F 11/27/22 12:32 Pulse 83 11/27/22 12:32 Resp 18 11/27/22 12:32 BP 114/86 11/27/22 12:32 Pulse Ox 90 L 11/27/22 12:32 FiO2 4 11/25/22 08:09 Intake & Output 11/26/22 11/27/22 11/27/22 18:59 06:59 18:59 Intake Total 960 600 Output Total 600 1260 250 Balance 360 -1260 350 Intake: Oral 960 600 Output: Urine 600 1260 250 Uretheral (Gamble) 1260 Other: Voiding Method Indwelling Catheter Indwelling Catheter Indwelling Catheter # Bowel Movements 0 - Exam GENERAL DESCRIPTION: An elderly male lying in bed in no distress RESPIRATORY SYSTEM: Unlabored breathing , decreased breath sounds at bases HEART: S1 S2 regular rate and rhythm , ABDOMEN: Soft , no tenderness EXTREMITIES: 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 - Labs CBC & Chem 7: 11/27/22 08:43 11/27/22 08:43 Labs: Abnormal Lab Results - Last 24 Hours (Table) 11/26/22 11/26/22 11/27/22 Range/Units 16:36 20:01 06:09 RBC (4.30-5.90) m/uL Hgb (13.0-17.5) gm/dL Hct (39.0-53.0) % RDW (11.5-15.5) % Lymphocytes # (Manual) (1.0-4.8) k/uL Sodium (137-145) mmol/L Glucose (74-99) mg/dL POC Glucose (mg/dL) 213 H 164 H 145 H (70-110) mg/dL Calcium (8.4-10.2) mg/dL Alkaline Phosphatase (38-126) U/L Total Protein (6.3-8.2) g/dL Albumin (3.5-5.0) g/dL 11/27/22 11/27/22 11/27/22 Range/Units 08:43 08:43 11:34 RBC 3.61 L (4.30-5.90) m/uL Hgb 11.1 L (13.0-17.5) gm/dL Hct 35.2 L (39.0-53.0) % RDW 20.5 H (11.5-15.5) % Lymphocytes # (Manual) 0.83 L (1.0-4.8) k/uL Sodium 136 L (137-145) mmol/L Glucose 188 H (74-99) mg/dL POC Glucose (mg/dL) 216 H (70-110) mg/dL Calcium 7.7 L (8.4-10.2) mg/dL Alkaline Phosphatase 130 H (38-126) U/L Total Protein 6.1 L (6.3-8.2) g/dL Albumin 2.4 L (3.5-5.0) g/dL Microbiology - Last 24 Hours (Table) 11/21/22 18:54 Blood Culture - Preliminary Blood Assessment and Plan (1) UTI (urinary tract infection) Current Visit: No Status: Acute Code(s): N39.0 - URINARY TRACT INFECTION, SITE NOT SPECIFIED SNOMED Code(s): 60659525 Plan: 1patient was in the hospital mental status changes likely multifactorial with concern for possible catheter since UTI the patient has significantly positive UA and the patient was receiving daptomycin in the outpatient setting for his recent MRSA bacteremia we will have to make sure no evidence of any recurrence of his bacteremia no evidence of cellulitis was noticed that his midline and no evidence of pneumonia on the chest x-ray. 2blood cultures has been repeated which as negative so far, patient CRP is 11.10 and a procalcitonin one 0.10 3-Gamble catheter has been changed and repeat UA still positive, urine culture grew yeast 4-Patient remains to be afebrile White count has been normal blood culture has been negative the patient will continue the daptomycin and Diflucan , with his respiratory symptoms of cough and sputum production we'll check a sputum for Gram stain and CULTURE Time with Patient: Less than 30
[2022-11-27] MEDS: BUMETANIDE 1 MG TAB PO SCH (16:14)
[2022-11-27 17:04] LABS: Glucose,Whole Blood 200 mg/dL (70-110)
[2022-11-27] MEDS: DAPTOmycin 500 MG in SODIUM CHLORIDE 0.9% 50 ML IVPB SCH (17:06)
[2022-11-27 20:20] LABS: Glucose,Whole Blood 131 mg/dL (70-110)
[2022-11-27] MEDS: ATORVASTATIN 80 MG TAB PO SCH (21:27)
[2022-11-27] MEDS: NORTRIPTYLINE 25 MG CAP PO SCH (21:27)
[2022-11-28] MEDS: SODIUM CHLORIDE 0.9% 1,000 ML IV SCH ×3 (04:14→21:51)
[2022-11-28 06:19] LABS: Glucose,Whole Blood 160 mg/dL (70-110)
[2022-11-28] MEDS: PANTOPRAZOLE 40 MG TABLET PO SCH (06:44)
[2022-11-28] MEDS: INSULIN ASPART (NovoLOG) 100 UNIT/ML VIAL SQ SCH ×4 (06:44→20:50)
[2022-11-28] MEDS: HYDROcodone/APAP 7.5-325MG 1 EACH TAB PO PRN ×2 (06:48→14:13)
[2022-11-28] MEDS: LORATADINE 10 MG TAB PO SCH (09:05)
[2022-11-28] MEDS: FERROUS SULFATE 325 MG TAB PO SCH ×2 (09:05→20:49)
[2022-11-28] MEDS: PREGABALIN 75 MG CAP PO SCH ×2 (09:05→15:54)
[2022-11-28] MEDS: SENNOSIDES 8.6 MG TAB PO SCH ×2 (09:05→20:49)
[2022-11-28] MEDS: METOPROLOL TARTRATE 25 MG TAB PO SCH ×2 (09:05→20:49)
[2022-11-28] MEDS: MULTIVITAMINS, THERA 1 EACH TAB PO SCH (09:05)
[2022-11-28] MEDS: methIMAzole 5 MG TAB PO SCH ×3 (09:06→22:06)
[2022-11-28] MEDS: DIGOXIN 125 MCG TAB PO SCH (09:06)
[2022-11-28] MEDS: FLUCONAZOLE 100 MG TAB PO SCH (09:06)
[2022-11-28] MEDS: DABIGATRAN 150 MG CAP PO SCH ×2 (09:06→15:55)
[2022-11-28] MEDS: MENTHOL TOPICAL SCH (09:15)
[2022-11-28] MEDS: LIDOCAINE TOPICAL SCH (09:15)
[2022-11-28 11:40] LABS: Glucose,Whole Blood 159 mg/dL (70-110)
[2022-11-28] MEDS: BUMETANIDE 1 MG TAB PO SCH (15:54)
[2022-11-28 16:19] LABS: Glucose,Whole Blood 108 mg/dL (70-110)
[2022-11-28] MEDS: DAPTOmycin 500 MG in SODIUM CHLORIDE 0.9% 50 ML IVPB SCH (17:32)
[2022-11-28 19:59] LABS: Glucose,Whole Blood 252 mg/dL (70-110)
[2022-11-28] MEDS: NORTRIPTYLINE 25 MG CAP PO SCH (20:49)
[2022-11-28] MEDS: ATORVASTATIN 80 MG TAB PO SCH (20:49)
[2022-11-29] MEDS: HYDROcodone/APAP 7.5-325MG 1 EACH TAB PO PRN ×3 (02:52→16:03)
--- NOTE | 2022-11-29 03:22 | PN ---
PROGRESS NOTE SUBJECTIVE: This is a 67-year-old white male. He had aspiration pneumonia, possible MRSA pneumonia, is back on daptomycin. He is not requests to go back to prison. He is feeling better now finally. Possibly will need IV daptomycin at the prison for 2-4 weeks. OBJECTIVE: CARDIOVASCULAR: S1, S2. LUNGS: Scattered rhonchi and wheeze. HEMATOLOGY: Negative for Homans. PSYCH: Fair mood and affect. ASSESSMENT: MRSA pneumonia, acute hypoxemic respiratory failure, sepsis, metabolic encephalopathy. PROGNOSIS: Guarded. Home IV antibiotics will be needed. Prognosis guarded. MMODL / IJN: [id number] /
--- NOTE | 2022-11-29 04:43 | DS ---
DISCHARGE SUMMARY DISCHARGE DIAGNOSES: History of chronic atrial fibrillation, MRSA pneumonia, delirium, metabolic encephalopathy, acute on chronic hypoxemic respiratory distress. Prognosis is guarded. Condition guarded. DISCHARGE MEDICATIONS: Medications he will go home on, 1. [place] 7.5 q.6 hours. 2. DuoNeb updrafts q.i.d. 3. Lipitor 80 mg at bedtime. 4. Bumex 1 mg daily. 5. Pradaxa 150 b.i.d. 6. Daptomycin 500 mg q.24 hours for 10 days. 7. Lanoxin 125 mcg daily. 8. Ferrous sulfate 325 b.i.d. 9. Diflucan 100 mg p.o. daily for 10 days. 10.Insulin Accu-Chek protocol before meals and at bedtime. 11.Claritin 10 mg daily. 12.Methimazole 5 mg t.i.d. 13.Metoprolol tartrate 75 b.i.d. 14.Multivitamin daily. 15.Lidocaine patches topically daily. 16.Pamelor 75 mg at bedtime. 17.Protonix 40 mg daily. 18.Lyrica 150 b.i.d. 19.Senokot 8.6 b.i.d. CONDITION: Stable. PROGNOSIS: Guarded. Ambulate as tolerated. The patient came in with severe metabolic encephalopathy. He was in ICU for a prolonged period of time. He was being off the vent. He became more alert over time because he developed MRSA type pneumonia toward the end, started on daptomycin, Diflucan. Prognosis guarded. Follow with Dr. Bhakta in care home. Prognosis extremely guarded. He is to wear oxygen 4 L at home, etc. Prognosis guarded. MMODL / IJN: [id number] /
[2022-11-29] MEDS: SODIUM CHLORIDE 0.9% 1,000 ML IV SCH ×3 (05:34→21:43)
[2022-11-29 06:24] LABS: Glucose,Whole Blood 83 mg/dL (70-110)
[2022-11-29] MEDS: PANTOPRAZOLE 40 MG TABLET PO SCH (06:25)
[2022-11-29] MEDS: INSULIN ASPART (NovoLOG) 100 UNIT/ML VIAL SQ SCH ×4 (06:25→20:22)
--- NOTE | 2022-11-29 07:35 | P.PN ---
Subjective Progress Note Date: 11/28/22 Principal diagnosis: Recent MRSA infection and UTI Patient is a 67-year-old male with multiple comorbidity recently admitted to this facility with the patient did have MRSA bacteremia patient did have a extensive work-up including echocardiogram FLO WBC scan all of them were negative for any deep infection patient blood culture were negative as of 11/03/2022 as well as 11/04 and 11/05/2022 patient did get the midline and was advised a 2-week course of IV daptomycin on discharge which the patient is currently receiving at the local shelter patient has been brought to the ER for mental status changes, did have a positive UA and concern for possible cath associated UTI. On today's evaluation head that is 11/28/2022, the patient continues to be afebrile, patient is breathing comfortably on a 4 L nasal cannula oxygen, the patient denies any chest pain or shortness of breath, pt did have occasional cough and bringing up some sputum, no nausea no vomiting no abdominal pain no diarrhea reported by the nursing staff Objective - Vital Signs Vital signs: Vital Signs Temp 98 F 11/28/22 12:00 Pulse 80 11/28/22 04:16 Resp 18 11/28/22 12:00 BP 89/45 11/28/22 12:00 Pulse Ox 91 L 11/28/22 12:00 FiO2 4 11/28/22 09:06 Intake & Output 11/27/22 11/28/22 11/28/22 18:59 06:59 18:59 Intake Total 1078 240 Output Total 900 1000 Balance 178 -1000 240 Intake: Oral 1078 240 Output: Urine 900 1000 Uretheral (Gamble) 1000 Other: Voiding Method Indwelling Catheter Indwelling Catheter Indwelling Catheter - Exam GENERAL DESCRIPTION: An elderly male lying in bed in no distress RESPIRATORY SYSTEM: Unlabored breathing , decreased breath sounds at bases HEART: S1 S2 regular rate and rhythm , ABDOMEN: Soft , no tenderness EXTREMITIES: 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 - Labs CBC & Chem 7: 11/27/22 08:43 11/27/22 08:43 Labs: Abnormal Lab Results - Last 24 Hours (Table) 11/27/22 11/27/22 11/28/22 Range/Units 16:50 20:14 06:07 POC Glucose (mg/dL) 200 H 131 H 160 H (70-110) mg/dL 11/28/22 Range/Units 11:32 POC Glucose (mg/dL) 159 H (70-110) mg/dL Microbiology - Last 24 Hours (Table) 11/21/22 18:54 Blood Culture - Final Blood Assessment and Plan (1) UTI (urinary tract infection) Current Visit: No Status: Acute Code(s): N39.0 - URINARY TRACT INFECTION, SITE NOT SPECIFIED SNOMED Code(s): 69302880 Plan: 1patient was in the hospital mental status changes likely multifactorial with concern for possible catheter since UTI the patient has significantly positive UA and the patient was receiving daptomycin in the outpatient setting for his recent MRSA bacteremia we will have to make sure no evidence of any recurrence of his bacteremia no evidence of cellulitis was noticed that his midline and no evidence of pneumonia on the chest x-ray. 2blood cultures has been repeated which as negative so far, patient CRP is 11.10 and a procalcitonin one 0.10 3-Gamble catheter has been changed and repeat UA still positive, urine culture grew yeast 4-Patient remains to be afebrile White count has been normal blood culture has been negative the patient will continue the daptomycin and Diflucan , sputum cultures has been obtained and results will be followed , will check a procalcitonin Time with Patient: Less than 30
[2022-11-29 07:44] LABS: ALT 18 U/L (4-49); AST 22 U/L (17-59); African American GFR (CKD) >90 (>60 ml/min/1.73 sqM); Albumin 2.5 g/dL (3.5-5.0); Alkaline Phosphatase 132 U/L (38-126); Anion Gap 8 mmol/L; Blood Urea Nitrogen 20 mg/dL (9-20); Calcium 7.8 mg/dL (8.4-10.2); Carbon Dioxide 23 mmol/L (22-30); Chloride 106 mmol/L (98-107); Glucose 80 mg/dL (74-99); Non-African American GFR(CKD) 86 (>60 ml/min/1.73 sqM); Potassium 3.9 mmol/L (3.5-5.1); Sodium 137 mmol/L (137-145); Total Bilirubin 0.9 mg/dL (0.2-1.3); Total Protein 6.3 g/dL (6.3-8.2)
[2022-11-29 07:45] LABS: Anisocytosis Moderate; Basophils % (A) 0 %; Eosinophils # (A) 0.2 k/uL (0-0.7); Eosinophils % (A) 2 %; HCT 34.4 % (39.0-53.0); HGB 10.7 gm/dL (13.0-17.5); Hypochromasia Moderate; Lymphocytes # (A) 1.4 k/uL (1.0-4.8); Lymphocytes % (A) 15 %; MCHC 31.1 g/dL (31.0-37.0); MCV 96.5 fL (80.0-100.0); Macrocytosis Slight; Mean Platelet Volume 8.2; Monocytes # (A) 0.4 k/uL (0-1.0); Monocytes % (A) 4 %; Neutrophils # (A) 7.4 k/uL (1.3-7.7); Neutrophils % (A) 78 %; Platelet Count 410 k/uL (150-450); RBC 3.56 m/uL (4.30-5.90); RDW 20.9 % (11.5-15.5); WBC 9.5 k/uL (3.8-10.6)
[2022-11-29] MEDS: MULTIVITAMINS, THERA 1 EACH TAB PO SCH (08:42)
[2022-11-29] MEDS: METOPROLOL TARTRATE 25 MG TAB PO SCH ×2 (08:42→20:23)
[2022-11-29] MEDS: PREGABALIN 75 MG CAP PO SCH ×2 (08:42→16:03)
[2022-11-29] MEDS: LORATADINE 10 MG TAB PO SCH (08:42)
[2022-11-29] MEDS: SENNOSIDES 8.6 MG TAB PO SCH ×2 (08:43→20:24)
[2022-11-29] MEDS: FLUCONAZOLE 100 MG TAB PO SCH (08:43)
[2022-11-29] MEDS: FERROUS SULFATE 325 MG TAB PO SCH ×2 (08:43→20:24)
[2022-11-29] MEDS: methIMAzole 5 MG TAB PO SCH ×3 (08:43→21:42)
[2022-11-29] MEDS: DIGOXIN 125 MCG TAB PO SCH (08:43)
[2022-11-29] MEDS: LIDOCAINE TOPICAL SCH (08:44)
[2022-11-29] MEDS: MENTHOL TOPICAL SCH (08:44)
[2022-11-29] MEDS: DABIGATRAN 150 MG CAP PO SCH ×2 (08:44→16:03)
[2022-11-29 11:49] LABS: Glucose,Whole Blood 138 mg/dL (70-110)
[2022-11-29] MEDS: BUMETANIDE 1 MG TAB PO SCH (16:03)
[2022-11-29 16:36] LABS: Glucose,Whole Blood 102 mg/dL (70-110)
[2022-11-29] MEDS: DAPTOmycin 500 MG in SODIUM CHLORIDE 0.9% 50 ML IVPB SCH (17:02)
--- NOTE | 2022-11-29 19:35 | P.PN ---
Subjective Progress Note Date: 11/29/22 Principal diagnosis: Recent MRSA infection and UTI Patient is a 67-year-old male with multiple comorbidity recently admitted to this facility with the patient did have MRSA bacteremia patient did have a extensive work-up including echocardiogram FLO WBC scan all of them were negative for any deep infection patient blood culture were negative as of 11/03/2022 as well as 11/04 and 11/05/2022 patient did get the midline and was advised a 2-week course of IV daptomycin on discharge which the patient is currently receiving at the local prison patient has been brought to the ER for mental status changes, did have a positive UA and concern for possible cath associated UTI. On today's evaluation head that is 11/29/2022 patient remains to be afebrile the patient was noted to be slightly hypoxic as he was not wearing his nasal cannula oxygen patient started gradually not a very good historian and no vomiting diarrhea or any other changes reported by nursing staff Objective - Vital Signs Vital signs: Vital Signs Temp 97.5 F L 11/29/22 08:40 Pulse 80 11/28/22 04:16 Resp 16 11/29/22 08:40 BP 114/74 11/29/22 08:40 Pulse Ox 92 L 11/29/22 08:40 FiO2 4 11/28/22 09:06 Intake & Output 11/28/22 11/29/22 11/29/22 18:59 06:59 18:59 Intake Total 1370 Output Total 1200 Balance 1370 -1200 Intake: Intake, IV Titration 650 Amount DAPTOmycin 500 mg In 100 Sodium Chloride 0.9% 50 ml @ 100 mls/hr IVPB Q24HR@1800 HELENE Rx#: [id number] Sodium Chloride 0.9% 1, 550 000 ml @ 130 mls/hr IV . 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 - Labs CBC & Chem 7: 11/29/22 07:11 11/29/22 07:11 Labs: Abnormal Lab Results - Last 24 Hours (Table) 11/28/22 11/29/22 11/29/22 Range/Units 19:56 07:11 07:11 RBC 3.56 L (4.30-5.90) m/uL Hgb 10.7 L (13.0-17.5) gm/dL Hct 34.4 L (39.0-53.0) % RDW 20.9 H (11.5-15.5) % POC Glucose (mg/dL) 252 H (70-110) mg/dL Calcium 7.8 L (8.4-10.2) mg/dL Alkaline Phosphatase 132 H (38-126) U/L C-Reactive Protein (<1.0) mg/dL Albumin 2.5 L (3.5-5.0) g/dL 11/29/22 Range/Units 07:11 RBC (4.30-5.90) m/uL Hgb (13.0-17.5) gm/dL Hct (39.0-53.0) % RDW (11.5-15.5) % POC Glucose (mg/dL) (70-110) mg/dL Calcium (8.4-10.2) mg/dL Alkaline Phosphatase (38-126) U/L C-Reactive Protein 7.3 H (<1.0) mg/dL Albumin (3.5-5.0) g/dL Microbiology - Last 24 Hours (Table) 11/27/22 10:57 Gram Stain - Preliminary Sputum Sputum Culture - Preliminary Assessment and Plan (1) UTI (urinary tract infection) Current Visit: No Status: Acute Code(s): N39.0 - URINARY TRACT INFECTION, SITE NOT SPECIFIED SNOMED Code(s): 54706704 Plan: 1patient was in the hospital mental status changes likely multifactorial with concern for possible catheter since UTI the patient has significantly positive UA and the patient was receiving daptomycin in the outpatient setting for his recent MRSA bacteremia , The patient blood culture has been negative during this admission and the patient has received adequate daptomycin for his previous bacteremia daptomycin can be safely discontinued. 2patient with a catheter associated UTI , urine has been growing yeast for the patient has received adequate fluconazole therapy. 3-Patient has been complaining some shortness of breath and hypoxemia requiring supplemental oxygen however the patient have normal white count procalcitonin is normal clinical suspicion is low for pneumonia possible fluid related Time with Patient: Less than 30
[2022-11-29 20:18] LABS: Glucose,Whole Blood 147 mg/dL (70-110)
[2022-11-29] MEDS: ATORVASTATIN 80 MG TAB PO SCH (20:24)
[2022-11-29] MEDS: NORTRIPTYLINE 25 MG CAP PO SCH (20:24)
[2022-11-30] MEDS: SODIUM CHLORIDE 0.9% 1,000 ML IV SCH ×2 (03:59→11:47)
[2022-11-30 05:54] LABS: Glucose,Whole Blood 118 mg/dL (70-110)
[2022-11-30] MEDS: INSULIN ASPART (NovoLOG) 100 UNIT/ML VIAL SQ SCH ×3 (05:59→17:11)
[2022-11-30] MEDS: PANTOPRAZOLE 40 MG TABLET PO SCH (06:26)
[2022-11-30] MEDS: LIDOCAINE TOPICAL SCH (08:32)
[2022-11-30] MEDS: MENTHOL TOPICAL SCH (08:32)
[2022-11-30 08:42] VITALS: RESP 18
[2022-11-30] MEDS: LORATADINE 10 MG TAB PO SCH (08:53)
[2022-11-30] MEDS: DIGOXIN 125 MCG TAB PO SCH (08:53)
[2022-11-30] MEDS: PREGABALIN 75 MG CAP PO SCH ×2 (08:53→17:10)
[2022-11-30] MEDS: MULTIVITAMINS, THERA 1 EACH TAB PO SCH (08:53)
[2022-11-30] MEDS: HYDROcodone/APAP 7.5-325MG 1 EACH TAB PO PRN ×2 (08:53→17:10)
[2022-11-30] MEDS: METOPROLOL TARTRATE 25 MG TAB PO SCH (08:53)
[2022-11-30] MEDS: FERROUS SULFATE 325 MG TAB PO SCH (08:54)
[2022-11-30] MEDS: SENNOSIDES 8.6 MG TAB PO SCH (08:54)
[2022-11-30] MEDS: methIMAzole 5 MG TAB PO SCH ×2 (08:54→17:11)
[2022-11-30] MEDS: DABIGATRAN 150 MG CAP PO SCH ×2 (08:54→17:10)
[2022-11-30] MEDS: FLUCONAZOLE 100 MG TAB PO SCH (08:54)
[2022-11-30 11:43] LABS: Glucose,Whole Blood 125 mg/dL (70-110)
[2022-11-30 16:56] LABS: Glucose,Whole Blood 111 mg/dL (70-110)
[2022-11-30] MEDS: BUMETANIDE 1 MG TAB PO SCH (17:11)
[2022-11-30 18:08] VITALS: BP 117/78; PULSE 73; TEMP 97.9
--- NOTE | 2022-12-02 15:23 | P.PN ---
Subjective Progress Note Date: 11/30/22 Principal diagnosis: Recent MRSA infection and UTI Patient is a 67-year-old male with multiple comorbidity recently admitted to this facility with the patient did have MRSA bacteremia patient did have a extensive work-up including echocardiogram FLO WBC scan all of them were negative for any deep infection patient blood culture were negative as of 11/03/2022 as well as 11/04 and 11/05/2022 patient did get the midline and was advised a 2-week course of IV daptomycin on discharge which the patient is currently receiving at the local long term patient has been brought to the ER for mental status changes, did have a positive UA and concern for possible cath associated UTI. On today's evaluation head that is 11/30/2022 patient denies any fever or maintenance, the patient is breathing comfortably on nasal cannula oxygen, the patient denies any chest pain or cough no nausea no vomiting and no diarrhea has been reported Objective - Vital Signs Vital signs: Vital Signs Temp 97.5 F L 11/30/22 08:41 Pulse 69 11/30/22 08:41 Resp 18 11/30/22 08:41 BP 121/75 11/30/22 08:41 Pulse Ox 93 L 11/30/22 08:41 FiO2 4 11/28/22 09:06 Intake & Output 11/29/22 11/30/22 11/30/22 18:59 06:59 18:59 Intake Total 118 480 540 Output Total 400 1175 Balance -282 -163 540 Intake: Oral 118 480 540 Output: Urine 400 1175 Other: Voiding Method Indwelling Catheter - Exam GENERAL DESCRIPTION: An elderly male lying in bed in no distress RESPIRATORY SYSTEM: Unlabored breathing , decreased breath sounds at bases HEART: S1 S2 regular rate and rhythm , ABDOMEN: Soft , no tenderness EXTREMITIES: 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 - Labs CBC & Chem 7: 11/29/22 07:11 11/29/22 07:11 Labs: Abnormal Lab Results - Last 24 Hours (Table) 11/29/22 11/30/22 11/30/22 Range/Units 20:16 05:52 11:37 POC Glucose (mg/dL) 147 H 118 H 125 H (70-110) mg/dL Microbiology - Last 24 Hours (Table) 11/27/22 10:57 Gram Stain - Final Sputum Sputum Culture - Final Assessment and Plan (1) UTI (urinary tract infection) Status: Acute Code(s): N39.0 - URINARY TRACT INFECTION, SITE NOT SPECIFIED SNOMED Code(s): 55115081 Plan: 1patient was in the hospital mental status changes likely multifactorial with concern for possible catheter since UTI the patient has significantly positive UA and the patient was receiving daptomycin in the outpatient setting for his recent MRSA bacteremia , The patient blood culture has been negative during this admission and the patient has received adequate daptomycin for his previous bacteremia daptomycin can be safely discontinued. 2patient with a catheter associated UTI , urine has been growing yeast for the patient has received adequate fluconazole therapy. No need for Diflucan on discharge 3-Patient did have hypoxemia requiring supplemental oxygen however the patient have normal white count and procalcitonin is normal clinical suspicion is low for pneumonia possible fluid related, no need for systemic antibiotics Time with Patient: Less than 30
== END 2022-11-30 18:59 | DRG 698 ==
LOC: EC 17:53 → 4SSUR 20:54 → 3SCARD 11-21 05:58
PROVIDERS: ADMIT Family Medicine; ATTEND Family Medicine
PROC: 02HV33Z Insertion of Infusion Device into Superior Vena Cava, Percutaneous Approach (ICD-10-PCS; principal; 2022-11-23 09:00)
DX: T83.511A Infection and inflammatory reaction due to indwelling urethral catheter, initial encounter (principal); A41.9 Sepsis, unspecified organism; G93.41 Metabolic encephalopathy; J15.212 Pneumonia due to Methicillin resistant Staphylococcus aureus; J96.21 Acute and chronic respiratory failure with hypoxia; J69.0 Pneumonitis due to inhalation of food and vomit; R65.20 Severe sepsis without septic shock; B37.49 Other urogenital candidiasis; D68.62 Lupus anticoagulant syndrome; F05 Delirium due to known physiological condition; I13.0 Hypertensive heart and chronic kidney disease with heart failure and stage 1 through stage 4 chronic kidney disease, or unspecified chronic kidney disease; I42.8 Other cardiomyopathies; I48.19 Other persistent atrial fibrillation; I50.22 Chronic systolic (congestive) heart failure; E11.51 Type 2 diabetes mellitus with diabetic peripheral angiopathy without gangrene; E11.42 Type 2 diabetes mellitus with diabetic polyneuropathy; E78.5 Hyperlipidemia, unspecified; I25.10 Atherosclerotic heart disease of native coronary artery without angina pectoris; I27.20 Pulmonary hypertension, unspecified; J43.2 Centrilobular emphysema; N18.9 Chronic kidney disease, unspecified; Z89.612 Acquired absence of left leg above knee; G89.29 Other chronic pain; Z95.828 Presence of other vascular implants and grafts; M54.50 Low back pain, unspecified; G43.909 Migraine, unspecified, not intractable, without status migrainosus; I45.10 Unspecified right bundle-branch block; I08.1 Rheumatic disorders of both mitral and tricuspid valves; K21.9 Gastro-esophageal reflux disease without esophagitis; R86.9 Unspecified abnormal finding in specimens from male genital organs; Z82.49 Family history of ischemic heart disease and other diseases of the circulatory system; Z79.84 Long term (current) use of oral hypoglycemic drugs; Z74.01 Bed confinement status; Z79.4 Long term (current) use of insulin; Z79.01 Long term (current) use of anticoagulants; Z79.899 Other long term (current) drug therapy; Z83.3 Family history of diabetes mellitus; Z86.14 Personal history of Methicillin resistant Staphylococcus aureus infection; Z86.711 Personal history of pulmonary embolism; Z86.73 Personal history of transient ischemic attack (TIA), and cerebral infarction without residual deficits; Z87.440 Personal history of urinary (tract) infections; Z96.642 Presence of left artificial hip joint; Z99.3 Dependence on wheelchair; Z88.2 Allergy status to sulfonamides; Z88.8 Allergy status to other drugs, medicaments and biological substances; Z91.041 Radiographic dye allergy status
CPT/HCPCS: 36415; 36573; 70450; 71045; 71250; 80053; 80306; 81001; 82140; 83605; 83690; 83735; 83880; 84145; 84484; 85025; 85610; 85730; 86140; 87040; 87070; 87086; 87205; 93005; 94760

== ENCOUNTER 2022-12-05 19:12 | Observation (INO) | payer MEDICARE, OTHER ==
[2022-12-05] MEDS ORDERED: MORPHINE SULFATE 4 MG/ML SYRINGE IVP STA (19:31)
[2022-12-05] MEDS ORDERED: NALOXONE 0.4 MG/ML 1 ML VIAL IV PRN (19:54)
[2022-12-05] MEDS ORDERED: ACETAMINOPHEN TAB 325 MG TAB PO PRN (19:54)
--- NOTE | 2022-12-05 19:56 | ED ---
Recheck HPI - General Chief Complaint: Recheck/Abnormal Lab/Rx Stated Complaint: Picc line removal Time Seen by Provider: 12/05/22 19:15 Source: patient, EMS, RN notes reviewed Mode of arrival: EMS Limitations: no limitations - History of Present Illness Initial Comments: Patient is a 67-year-old male presenting to the emergency room via EMS from his fdc facility after accidental removal of his PICC line which he is currently receiving daptomycin 4 to treat bacteremia. There was some discussion regarding confusion for reason for transfer to the hospital per EMS however patient is alert and orientated and at baseline upon arrival to the emergency room. He is complaining of chronic back pain. He denies any other complaints or concerns including any chest pain, shortness of breath worse than baseline, abdominal pain, nausea, vomiting, fevers or chills. He denies any pain or swelling at the site of his left arm PICC line site. He is well-known to the hospital and has an extensive past medical history will in addition to his recently treated bacteremia of A. fib, asthma, COPD, CVA, diabetes, DVT, PE, retention, hyperlipidemia, GERD, peripheral neuropathy, left AKA, peripheral vascular disease and osteoarthritis. - Related Data Home Medications Medication Instructions Recorded Confirmed Atorvastatin [Lipitor] 80 mg PO HS 08/27/22 12/05/22 Loratadine 10 mg PO DAILY 08/27/22 12/05/22 Dabigatran [Pradaxa] 150 mg PO BID@0800,1600 10/28/22 12/05/22 Ferrous Sulfate [Iron (65 MG 325 mg PO BID 10/28/22 12/05/22 Elemental)] Omeprazole [PriLOSEC] 20 mg PO DAILY 10/28/22 12/05/22 Sennosides [Senokot] 8.6 mg PO BID 10/28/22 12/05/22 Acetaminophen Tab [Tylenol] 650 mg PO Q6H PRN 11/20/22 12/05/22 Healthshake 1 dose PO TID@0800,1200,1800 11/20/22 12/05/22 Metoprolol Tartrate [Lopressor] 75 mg PO BID 11/20/22 12/05/22 Multivitamins, Thera [Multivitamin 1 tab PO DAILY@0800 11/20/22 12/05/22 (formulary)] Nortriptyline HCl 75 mg PO HS 11/20/22 12/05/22 Pregabalin [Lyrica] 150 mg PO BID@0800,1600 11/20/22 12/05/22 DAPTOmycin [Cubicin] 500 mg IVPB DAILY 12/05/22 12/05/22 HYDROcodone/APAP 7.5-325MG [[place] 1 tab PO Q6HR PRN 12/05/22 12/05/22 7.5-325] Insulin Glargine,Hum.rec.anlog 14 units SQ HS 12/05/22 12/05/22 [Lantus Solostar Pen] Insulin Lispro [humaLOG Kwikpen] See Protocol SQ ACHS@07,11,16,20 12/05/22 12/05/22 Lidocaine [Aspercreme Patch] 1 patch TRANSDERM DAILY 12/05/22 12/05/22 Magnesium Hydroxide [Milk of 2,400 mg PO DAILY PRN 12/05/22 12/05/22 Magnesia] Previous Rx's Medication Instructions Recorded Bumetanide [BUMEX] 1 mg PO DAILY@1600 tab 11/09/22 Ipratropium-Albuterol Nebulize 3 ml INHALATION RT-Q6H PRN each 11/09/22 [Duoneb 0.5 mg-3 mg/3 ml Soln] methIMAzole [Tapazole] 5 mg PO TID tab 11/09/22 Digoxin [Lanoxin] 125 mcg PO DAILY tab 11/28/22 Fluconazole [Diflucan] 100 mg PO DAILY 10 Days #10 tab 11/28/22 Allergies Allergy/AdvReac Type Severity Reaction Status Date / Time baclofen Allergy Unknown Verified 12/05/22 20:51 Iodinated Contrast Media Allergy Unknown Verified 12/05/22 20:51 sulfamethoxazole Allergy Unknown Verified 12/05/22 20:51 [From Bactrim] trimethoprim [From Bactrim] Allergy Unknown Verified 12/05/22 20:51 apixaban [From Eliquis] AdvReac "felt Verified 12/05/22 20:51 funny" Review of Systems ROS Statement: Those systems with pertinent positive or pertinent negative responses have been documented in the HPI. ROS Other: All systems not noted in ROS Statement are negative. Past Medical History Past Medical History: Atrial Fibrillation, Asthma, COPD, CVA/TIA, Diabetes Mellitus, Deep Vein Thrombosis (DVT), GERD/Reflux, Hyperlipidemia, Hypertension, Neurologic Disorder, Osteoarthritis (OA), Pneumonia, Pulmonary Embolus (PE), Skin Disorder, Vascular Disorder Additional Past Medical History / Comment(s): Pt admitted to [facility] on 11/20/20 with hyperkalemia, hyperglycemia, uncontrolled diabetes. Other hx: Lupus anticoagulant, DVTs bilateral legs, PEs bilateral lungs in , pt has zina filter, L AKA/wheelchair bound, NIDDM type II, neuropathy bilateral hands, wound care patient for buttock wound, now healed, TIAs, pneumothorax, past migraines, chronic low back pain, R leg edema at times, varicosities. History of Any Multi-Drug Resistant Organisms: MRSA Date of last positivie culture/infection: 10/30/2022 MDRO Source:: Bacteremia Past Surgical History: Adenoidectomy, Appendectomy, Tonsillectomy Additional Past Surgical History / Comment(s): [place] filter, stents in vessels "in pelvic area", total L hip arthroplasty, vein strippings, colonoscopy. left leg amputation Past Anesthesia/Blood Transfusion Reactions: No Reported Reaction Additional Past Anesthesia/Blood Transfusion Reaction / Comment(s): Pt has received blood in past without reaction. Past Psychological History: No Psychological Hx Reported Smoking Status: Former smoker Past Alcohol Use History: None Reported Past Drug Use History: None Reported - Past Family History Mother Family Medical History: Coronary Artery Disease (CAD), Myocardial Infarction ([place]), Vascular Disorder Additional Family Medical History / Comment(s): heart disease, peripheral vascular disease. Father Family Medical History: Diabetes Mellitus, Renal Disease General Exam - General Exam Comments Initial Comments: GENERAL: No acute distress, well developed, well nourished. HEENT: Normocephalic, atraumatic. Pupils equal, round, reactive to light. Moist mucous membranes. LUNGS: No respiratory distress. Lung sounds diminished bibasilar a, no M petition sounds or use of accessory muscles. HEART: Irregular rhythm, controlled rate, systolic murmur, no diastolic murmur rub or gallop. ABDOMEN: Normal bowel sounds. Soft, non-tender, non-distended. BACK: Normal inspection. EXTREMITIES: Left AKA. Right lower extremity edema +1. Left upper extremity PICC line site well healed without any surrounding induration or drainage. NEUROLOGIC: Alert & oriented x 3. CN II-XII grossly intact. PSYCHIATRIC: Normal affect and behavior. DERMATOLOGIC: Skin intact, without rashes or lesions noted. Limitations: no limitations Course Vital Signs 12/05/22 12/05/22 19:15 20:54 Temperature 98.1 F Pulse Rate 100 95 Respiratory 20 18 Rate Blood Pressure 123/76 135/68 O2 Sat by Pulse 96 97 Oximetry Medical Decision Making - Medical Decision Making Was pt. sent in by a medical professional or institution (, [facility], [facility], urgent care, hospital, or fdc...) When possible be specific @ -No Did you speak to anyone other than the patient for history (EMS, parent, family, police, friend...)? What history was obtained from this source @ -No Did you review nursing and triage notes (agree or disagree)? Why? @ -I reviewed and agree with nursing and triage notes Were old charts reviewed (outside hosp., previous admission, EMS record, old EKG, old radiological studies, urgent care reports/EKG's, fdc records)? Report findings @ -yes, discharge summary and infectious disease consult from most recent hospitalization and discharge on 11/25/2022-11/30/2022 Differential Diagnosis (chest pain, altered mental status, abdominal pain women, abdominal pain men, vaginal bleeding, weakness, fever, dyspnea, syncope, headache, dizziness, GI bleed, back pain, seizure, CVA, palpatations, mental he alth, musculoskeletal)? @ -not applicable EKG interpreted by me (3pts min.). @ -None done X-rays interpreted by me (1pt min.). @ -None done CT interpreted by me (1pt min.). @ -None done U/S interpreted by me (1pt. min.). @ -None done What testing was considered but not performed or refused? (CT, X-rays, U/S, labs)? Why? @ -None What meds were considered but not given or refused? Why? @ -None Did you discuss the management of the patient with other professionals (professionals i.e. [facility], [facility], lab, RT, psych nurse, social service manager, mechanic marine engine, teacher, home lending officer, pillowcase cutter)? Give summary @ -Yes, spoke with Dr. Bhakta regarding patient's presentation to the hospital and left PICC line placement and lack of availability of interventional radiology at this time for reinsertion of PICC line. Recommended observation admission with consult for PICC line insertion to be completed and continuation of IV antibiotics. Advised Dr. Bhakta who was told the patient had altered mental status the patient is at baseline mental status without any hallucinations or delusions. He is accepting of admission denies any further orders at this time. Was smoking cessation discussed for >3mins.? @ -No Was critical care preformed (if so, how long)? @ -No Were there social determinants of health that impacted care today? How? (Homelessness, low income, unemployed, alcoholism, drug addiction, transportation, low edu. Level, literacy, decrease access to med. care, penitentiary, rehab)? @ -No Was there de-escalation of care discussed even if they declined (Discuss DNR or withdrawal of care, Hospice)? DNR status @ -No What co-morbidities impacted this encounter? (DM, HTN, Smoking, COPD, CAD, Cancer, CVA, ARF, Chemo, Hep., AIDS, mental health diagnosis, sleep apnea, morbid obesity)? @ -Bacteremia on IV antibiotics. Was patient admitted / discharged? Hospital course, mention meds given and route, prescriptions, significant lab abnormalities, going to OR and other pertinent info. @ -67-year-old M presenting to the emergency room via EMS from his fdc facility after his PICC line "fell out" last night. He has not received his most recent lead do dose of daptomycin which she is on for bacteremia. He was discharged from the hospital 11/30/22 and was to be on daptomycin daily for 10 days. Will have peripheral IV placed and give dose of daptomycin 500 mg as per infectious disease and discharge summary order. Will obtain standard laboratory studies of CBC and CMP for admission. No indication for diagnostic imaging. Will give a dose of morphine for back pain. No estefania cation for further workup at this time. Spoke with Dr. Britton regarding patient's presentation and lack of interventional radiology services for PICC line insertion. He is accepting of admission and denies any further orders at this time. Will admit patient in stable condition to observation unit under Dr. Britton for placement of PICC line to treat bacteremia. Undiagnosed new problem with uncertain prognosis? @ -No Drug Therapy requiring intensive monitoring for toxicity (Heparin, Nitro, Insulin, Cardizem)? @ -No Were any procedures done? @ -No Diagnosis/symptom? @ -PICC line insertion need Acute, or Chronic, or Acute on Chronic? @ -Acute Uncomplicated (without systemic symptoms) or Complicated (systemic symptoms)? @ -Complicated Side effects of treatment? @ -No Exacerbation, Progression, or Severe Exacerbation? @ -No Poses a threat to life or bodily function? How? (Chest pain, [place], CA, pneumonia, PE, COPD, DKA, ARF, appy, cholecystitis, CVA, Diverticulitis, Homicidal, Suicidal, threat to staff... and all critical care pts) @ -Yes currently under treatment for bacteremia. Diagnosis/symptom? @ -Bacteremia Acute, or Chronic, or Acute on Chronic? @ -Acute Uncomplicated (without systemic symptoms) or Complicated (systemic symptoms)? @ -complicated Side effects of treatment? @ -none Exacerbation, Progression, or Severe Exacerbation] @ -no Poses a threat to life or bodily function? @ -Yes, her at risk for worsening bacteremia. Case discussed with Dr. Wu - Lab Data Result diagrams: 12/05/22 19:50 12/05/22 19:50 Lab Results 12/05/22 12/05/22 12/05/22 Range/Units 19:50 19:50 19:50 WBC 11.8 H (3.8-10.6) k/uL RBC 3.90 L (4.30-5.90) m/uL Hgb 11.8 L (13.0-17.5) gm/dL Hct 37.9 L (39.0-53.0) % MCV 97.1 (80.0-100.0) fL MCH 30.4 (25.0-35.0) pg MCHC 31.3 (31.0-37.0) g/dL RDW 20.0 H (11.5-15.5) % Plt Count 342 (150-450) k/uL MPV 8.1 Neutrophils % 82 % Lymphocytes % 10 % Monocytes % 5 % Eosinophils % 1 % Basophils % 0 % Neutrophils # 9.6 H (1.3-7.7) k/uL Lymphocytes # 1.2 (1.0-4.8) k/uL Monocytes # 0.6 (0-1.0) k/uL Eosinophils # 0.2 (0-0.7) k/uL Basophils # 0.0 (0-0.2) k/uL Hypochromasia Moderate Poikilocytosis Slight Anisocytosis Slight Macrocytosis Slight PT 14.3 H (9.0-12.0) sec INR 1.4 H (<1.2) Sodium 135 L (137-145) mmol/L Potassium 6.0 H (3.5-5.1) mmol/L Chloride 103 (98-107) mmol/L Carbon Dioxide 27 (22-30) mmol/L Anion Gap 5 mmol/L BUN 15 (9-20) mg/dL Creatinine 0.72 (0.66-1.25) mg/dL Est GFR (CKD-EPI)AfAm >90 (>60 ml/min/1.73 sqM) Est GFR (CKD-EPI)NonAf >90 (>60 ml/min/1.73 sqM) Glucose 179 H (74-99) mg/dL Calcium 8.0 L (8.4-10.2) mg/dL Total Bilirubin 1.8 H (0.2-1.3) mg/dL AST 77 H (17-59) U/L ALT 22 (4-49) U/L Alkaline Phosphatase 119 (38-126) U/L Total Protein 8.1 (6.3-8.2) g/dL Albumin 3.3 L (3.5-5.0) g/dL Disposition Clinical Impression: PICC (peripherally inserted central catheter) in place, Bacteremia Disposition: ADMITTED IP TO THIS HOSP Condition: Stable Is patient prescribed a controlled substance at d/c from ED?: No Time of Disposition: 19:54
[2022-12-05] MEDS: DAPTOmycin 500 MG in SODIUM CHLORIDE 0.9% 50 ML IVPB SCH (19:59)
[2022-12-05 20:23] LABS: Anisocytosis Slight; Basophils % (A) 0 %; Eosinophils # (A) 0.2 k/uL (0-0.7); Eosinophils % (A) 1 %; HCT 37.9 % (39.0-53.0); HGB 11.8 gm/dL (13.0-17.5); Hypochromasia Moderate; Lymphocytes # (A) 1.2 k/uL (1.0-4.8); Lymphocytes % (A) 10 %; MCH 30.4 pg (25.0-35.0); MCHC 31.3 g/dL (31.0-37.0); MCV 97.1 fL (80.0-100.0); Macrocytosis Slight; Mean Platelet Volume 8.1; Monocytes # (A) 0.6 k/uL (0-1.0); Monocytes % (A) 5 %; Neutrophils # (A) 9.6 k/uL (1.3-7.7); Neutrophils % (A) 82 %; Platelet Count 342 k/uL (150-450); Poikilocytosis Slight; WBC 11.8 k/uL (3.8-10.6)
[2022-12-05 20:37] LABS: INR 1.4 (<1.2); Prothrombin Time 14.3 sec (9.0-12.0)
[2022-12-05 20:43] LABS: ALT 22 U/L (4-49); AST 77 U/L (17-59); African American GFR (CKD) >90 (>60 ml/min/1.73 sqM); Albumin 3.3 g/dL (3.5-5.0); Alkaline Phosphatase 119 U/L (38-126); Anion Gap 5 mmol/L; Blood Urea Nitrogen 15 mg/dL (9-20); Carbon Dioxide 27 mmol/L (22-30); Chloride 103 mmol/L (98-107); Glucose 179 mg/dL (74-99); Non-African American GFR(CKD) >90 (>60 ml/min/1.73 sqM); Sodium 135 mmol/L (137-145); Total Bilirubin 1.8 mg/dL (0.2-1.3); Total Protein 8.1 g/dL (6.3-8.2)
[2022-12-06] MEDS: MORPHINE SULFATE 4 MG/ML SYRINGE IV PRN ×2 (08:32→21:06)
[2022-12-06] MEDS ORDERED: LIDOCAINE 1% INJ 10MG/ML (5 ML VIAL-PF) SQ ONE (08:54)
--- NOTE | 2022-12-06 09:22 | IR ---
PICC LINE PLACEMENT: HISTORY: Infection requiring long-term antibiotic therapy PROCEDURE: Ultrasound and fluoroscopic guidance of PICC line placement. COMPLICATIONS: None ANESTHESIA: 1. 1% Lidocaine locally. FINDINGS/TECHNIQUE: The procedure was explained to the patient. The risks, complications, benefits and alternatives were discussed and any questions were answered. Informed consent was obtained. The patient was placed supine on the fluoroscopic table and prepped and draped in the usual sterile fash ion. Utilizing a 21 gauge needle and sonographic and fluoroscopic guidance, access in the left basi lic vein was achieved and there is placement of a 0.018 guidewire. The vein is patent. A 4-F sheath was placed over the guidewire. The guidewire and dilator were removed and a 4-F. PICC line was plac ed through the sheath with the tip at the level of the SVC. The sheath was removed, the catheter was flushed and sutured into position. The patient was stable throughout the procedure and remained sta ble upon discharge from the Department of Radiology. The vein puncture was patent under ultrasound. A davis scale image was obtained to document patency of the vein punctured. All elements of the maximal barrier technique were utilized. FLUOROSCOPY TIME: DAP 0.116Gy cm2 IMPRESSION: Successful PICC line placement under ultrasound and fluoroscopic guidance.
[2022-12-06 12:11] LABS: Glucose,Whole Blood 125 mg/dL (70-110)
[2022-12-06] MEDS ORDERED: IPRATROPIUM-ALBUTEROL 3 ML NEB INHALATION PRN (17:28)
[2022-12-06] MEDS ORDERED: HYDROcodone/APAP 7.5-325MG 1 EACH TAB PO PRN (17:28)
[2022-12-06 17:44] LABS: Glucose,Whole Blood 219 mg/dL (70-110)
[2022-12-06] MEDS ORDERED: NON FORMULARY DRUG (Healthshake 1 DOSE) PO SCH (18:00)
[2022-12-06] MEDS: DAPTOmycin 500 MG in SODIUM CHLORIDE 0.9% 50 ML IVPB SCH ×2 (19:54→21:15)
[2022-12-06] MEDS: INSULIN DETEMIR (LEVEMIR) 100 UNIT/ML SYR SQ SCH ×2 (19:54→22:29)
[2022-12-06] MEDS: FERROUS SULFATE 325 MG TAB PO SCH (19:54)
[2022-12-06 21:47] LABS: Glucose,Whole Blood 143 mg/dL (70-110)
[2022-12-07] MEDS: MORPHINE SULFATE 4 MG/ML SYRINGE IV PRN ×2 (04:41→22:46)
[2022-12-07 07:46] LABS: Glucose,Whole Blood 66 mg/dL (70-110)
[2022-12-07 08:17] LABS: Glucose,Whole Blood 61 mg/dL (70-110)
[2022-12-07 08:34] LABS: Glucose,Whole Blood 62 mg/dL (70-110)
[2022-12-07] MEDS ORDERED: DEXTROSE 50% SYRINGE 50 ML IVP PRN ×2 (08:44)
[2022-12-07 09:07] LABS: Glucose,Whole Blood 89 mg/dL (70-110)
[2022-12-07] MEDS: ENOXAPARIN 40 MG/0.4 ML SYRINGE SQ SCH (09:41)
[2022-12-07] MEDS: DIGOXIN 125 MCG TAB PO SCH (09:41)
[2022-12-07] MEDS: FERROUS SULFATE 325 MG TAB PO SCH ×2 (09:41→20:10)
[2022-12-07] MEDS: HYDROcodone/APAP 5-325MG 1 EACH TAB PO PRN ×2 (10:45→20:10)
[2022-12-07 12:28] LABS: Glucose,Whole Blood 118 mg/dL (70-110)
--- NOTE | 2022-12-07 13:45 | HP ---
HISTORY AND PHYSICAL HISTORY OF PRESENT ILLNESS: Checo Quijano came to the emergency room after PICC line was removed. The patient underwent rehab, basically came in with altered mental status, was acting funny. He pulled out his PICC line. ER thought he was not confused at all, they have reviewed him, but he had to be admitted to put a PICC line in. He has recently been treated with IV medications for bacteremia with MRSA as well. PICC line will have to be replaced in. He had a left AKA, has GERD, peripheral neuropathy, DVT, PE, hypertension, GERD. HOME MEDICATIONS: Reviewed and medications have been restarted. PAST MEDICAL HISTORY: Reviewed. PSYCH HISTORY: Has been reviewed. SOCIAL HISTORY: [place] the [place]. His daughter just recently , he has depression. PAST MEDICAL HISTORY: Atrial fibrillation, COPD, CVA, TIA, diabetes mellitus, DVT, hypertension, osteoarthritis, pneumonia, PE. PHYSICAL EXAMINATION: VITAL SIGNS: Temperature 98.1, pulse 95 to 100, respiratory rate 18-20, blood pressure 120 to 130s over 60s to 70s. CARDIOVASCULAR: S1, S2. LUNGS: Clear. PSYCH: Gives appropriate answers. He appears a little bit obtunded. NEUROLOGIC: Cranial nerves intact. PSYCH: Poor mood and affect. EXTREMITIES: He has left AKA. ASSESSMENT: Bacteremia from MRSA, he needs IV antibiotics, needs a PICC line replaced and get him back to the intermediate. He is going to be restarted on daptomycin for Infectious Disease, which is consulted. Home medications have been restarted. Continue current treatment. Prognosis guarded. Labs reviewed. MMODL / IJN: [id number] /
[2022-12-07] MEDS: INSULIN ASPART (NovoLOG) 100 UNIT/ML VIAL SQ SCH ×3 (15:24→21:57)
[2022-12-07 15:49] LABS: Glucose,Whole Blood 112 mg/dL (70-110)
[2022-12-07] MEDS ORDERED: BUMETANIDE 1 MG TAB PO SCH (16:00)
[2022-12-07 17:32] LABS: Glucose,Whole Blood 114 mg/dL (70-110)
[2022-12-07] MEDS: DAPTOmycin 500 MG in SODIUM CHLORIDE 0.9% 50 ML IVPB SCH (20:10)
[2022-12-07 21:10] LABS: Glucose,Whole Blood 163 mg/dL (70-110)
[2022-12-07] MEDS ORDERED: ZOLPIDEM 5 MG TAB PO PRN (21:57)
--- NOTE | 2022-12-07 22:46 | P.CONS ---
History of Present Illness - Reason for Consult Consult date: 12/07/22 - History of Present Illness Patient is a 67-year-old male with a recent admission to this facility and patient did have evidence of MRSA bacteremia did have extensive work-up with no evidence of any deeper focus of infection patient did have a positive blood culture from 10/28/2022 to 11/02/2022 and did have a negative blood culture on 427 as well as 11/04 and 11/05/2022, patient was advised for response of IV daptomycin with the patient was receiving at the local snf subsequently did have readmission to the hospital middle of November 2022 at that point patient did have evidence of catheter assisted UTI and urine was positive for Celestina albicans for the patient Gamble catheter was changed and was treated with oral Diflucan patient about presenting back to the hospital after patient accidentally pulled out his PICC line which has been reinserted by interventional radiology this morning infectious disease consulted for further management. Patient currently denies having any fever any chills evaluated clear why he removed the PICC line patient denies having any headache no chest pain no shortness of breath no cough he is breathing comfortably on room air no nausea vomiting no abdominal pain no diarrhea patient did have elevated white of 11.8 on admission kidney function has been normal enzymes mildly elevated Past Medical History Past Medical History: Atrial Fibrillation, Asthma, COPD, CVA/TIA, Diabetes Mellitus, Deep Vein Thrombosis (DVT), GERD/Reflux, Hyperlipidemia, Hypertension, Neurologic Disorder, Osteoarthritis (OA), Pneumonia, Pulmonary Embolus (PE), Skin Disorder, Vascular Disorder Additional Past Medical History / Comment(s): Pt admitted to [facility] on 11/20/20 with hyperkalemia, hyperglycemia, uncontrolled diabetes. Other hx: Lupus anticoagulant, DVTs bilateral legs, PEs bilateral lungs in , pt has gre [place] filter, L AKA/wheelchair bound, NIDDM type II, neuropathy bilateral hands, wound care patient for buttock wound, now healed, TIAs, pneumothorax, past migraines, chronic low back pain, R leg edema at times, varicosities. History of Any Multi-Drug Resistant Organisms: MRSA Year Discovered:: 10/30/2022 MDRO Source:: Bacteremia Past Surgical History: Adenoidectomy, Appendectomy, Tonsillectomy Additional Past Surgical History / Comment(s): [place] filter, stents in vessels "in pelvic area", total L hip arthroplasty, vein strippings, colonoscopy. left leg amputation Past Anesthesia/Blood Transfusion Reactions: No Reported Reaction Additional Past Anesthesia/Blood Transfusion Reaction / Comm: Pt has received blood in past without reaction. Past Psychological History: No Psychological Hx Reported Smoking Status: Former smoker Past Alcohol Use History: None Reported Past Drug Use History: None Reported - Past Family History Mother Family Medical History: Coronary Artery Disease (CAD), Myocardial Infarction ([place]), Vascular Disorder Additional Family Medical History / Comment(s): heart disease, peripheral vascular disease. Father Family Medical History: Diabetes Mellitus, Renal Disease Medications and Allergies Home Medications Medication Instructions Recorded Confirmed Type Atorvastatin [Lipitor] 80 mg PO HS 08/27/22 12/05/22 History Loratadine 10 mg PO DAILY 08/27/22 12/05/22 History Dabigatran [Pradaxa] 150 mg PO BID@0800,1600 10/28/22 12/05/22 History Ferrous Sulfate [Iron (65 MG 325 mg PO BID 10/28/22 12/05/22 History Elemental)] Omeprazole [PriLOSEC] 20 mg PO DAILY 10/28/22 12/05/22 History Sennosides [Senokot] 8.6 mg PO BID 10/28/22 12/05/22 History Bumetanide [BUMEX] 1 mg PO DAILY@1600 tab 11/09/22 12/05/22 Rx Ipratropium-Albuterol Nebulize 3 ml INHALATION RT-Q6H PRN each 11/09/22 12/05/22 Rx [Duoneb 0.5 mg-3 mg/3 ml Soln] methIMAzole [Tapazole] 5 mg PO TID tab 11/09/22 12/05/22 Rx Acetaminophen Tab [Tylenol] 650 mg PO Q6H PRN 11/20/22 12/05/22 History Healthshake 1 dose PO TID@0800,1200,1800 11/20/22 12/05/22 History Multivitamins, Thera [Multivitamin 1 tab PO DAILY@0800 11/20/22 12/05/22 History (formulary)] Nortriptyline HCl 75 mg PO HS 11/20/22 12/05/22 History Pregabalin [Lyrica] 150 mg PO BID@0800,1600 11/20/22 12/05/22 History Digoxin [Lanoxin] 125 mcg PO DAILY tab 11/28/22 12/05/22 Rx Fluconazole [Diflucan] 100 mg PO DAILY 10 Days #10 tab 11/28/22 12/05/22 Rx DAPTOmycin [Cubicin] 500 mg IVPB DAILY 12/05/22 12/05/22 History HYDROcodone/APAP 7.5-325MG [[place] 1 tab PO Q6HR PRN 12/05/22 12/05/22 History 7.5-325] Insulin Glargine,Hum.rec.anlog 14 units SQ HS 12/05/22 12/05/22 History [Lantus Solostar Pen] Insulin Lispro [humaLOG Kwikpen] See Protocol SQ ACHS@07,11,16,20 12/05/22 12/05/22 History Lidocaine [Aspercreme Patch] 1 patch TRANSDERM DAILY 12/05/22 12/05/22 History Magnesium Hydroxide [Milk of 2,400 mg PO DAILY PRN 12/05/22 12/05/22 History Magnesia] Allergies Allergy/AdvReac Type Severity Reaction Status Date / Time baclofen Allergy Unknown Verified 12/05/22 20:51 Iodinated Contrast Media Allergy Unknown Verified 12/05/22 20:51 sulfamethoxazole Allergy Unknown Verified 12/05/22 20:51 [From Bactrim] trimethoprim [From Bactrim] Allergy Unknown Verified 12/05/22 20:51 apixaban [From Eliquis] AdvReac "felt Verified 12/05/22 20:51 funny" Physical Exam Vitals: Vital Signs Temp Pulse Resp BP BP Pulse Ox 12/07/22 07:00 97.9 F 117 H 18 123/76 92 L 12/07/22 04:35 98.1 F 65 19 154/87 91 L 12/06/22 19:48 19 117/73 12/06/22 15:00 97.8 F 94 16 137/75 95 Intake and Output 12/06/22 12/07/22 12/07/22 22:59 06:59 14:59 Output Total 700 Balance -700 Output: Urine 700 Other: Voiding Method Indwelling Catheter Indwelling Catheter # Bowel Movements 0 Results CBC & Chem 7: 12/05/22 19:50 05/29/23 19:50 Labs: Abnormal Lab Results - Last 24 Hours (Table) 12/06/22 12/06/22 12/06/22 Range/Units 12:09 17:43 21:46 POC Glucose (mg/dL) 125 H 219 H 143 H (70-110) mg/dL 12/07/22 12/07/22 12/07/22 Range/Units 07:44 08:15 08:33 POC Glucose (mg/dL) 66 L 61 L 62 L (70-110) mg/dL Assessment and Plan Plan: 1patient with a recent MRSA bacteremia. The patient was receiving daptomycin in the outpatient setting and has received about 5 weeks of antibiotics patient has accidentally pulled out his PICC line which has been inserted we will continue the patient on daptomycin for another week to finish his 6-week course of therapy and the PICC line should be discontinued afterwards 2-patient with recent history of catheter assisted UTI urine is still very kameron udy we will change his Gamble catheter and obtain urine culture from the new Gamble We will follow on clinical condition and cultures to further adjust medication if needed Thank you for this consultation we will follow the patient along with you Time with Patient: Greater than 30
--- NOTE | 2022-12-08 02:24 | DS ---
DISCHARGE SUMMARY HISTORY OF PRESENT ILLNESS: A 67-year-old white male came in to get a PICC line placement. PICC line placement was done. The patient will need continued antibiotics for MRSA sepsis for which he is getting IV antibiotics at alf. PICC line was replaced. Medicines were continued. Condition stable. Prognosis guarded. Ambulate as tolerated. 1. Loratadine 10 mg daily. 2. Lipitor 80 mg daily. 3. Senna 8.6 b.i.d. 4. Pradaxa 150 b.i.d. 5. Tapazole 5 mg t.i.d. 6. . 7. Nortriptyline 75 mg daily. 8. Daptomycin 500 mg IV piggyback daily. 9. Lantus 14 units subcu daily. 10.Prilosec 20 mg daily. 11.Ferrous sulfate 325 b.i.d. 12.Bumex 1 mg daily. 13.DuoNeb q.i.d. 14.Multivitamin daily. 15.Lyrica 150 b.i.d. 16.Diflucan 100 mg daily. 17.Lanoxin 125 mcg daily. 18.[place] 7.5 q.6 p.r.n. 19.Humalog before meals and at bedtime. 20. . 21.Aspercreme patch daily. PROGNOSIS: Guarded. Ambulate as tolerated. Follow up with alf Dr. Ordoñez's recommendations are. On discharge, please contact him. KIRAN / WILLN: [id number] /
[2022-12-08] MEDS: MORPHINE SULFATE 4 MG/ML SYRINGE IV PRN (05:02)
[2022-12-08 06:46] LABS: Glucose,Whole Blood 158 mg/dL (70-110)
[2022-12-08] MEDS: INSULIN ASPART (NovoLOG) 100 UNIT/ML VIAL SQ SCH ×2 (06:46→12:59)
[2022-12-08] MEDS: DIGOXIN 125 MCG TAB PO SCH (08:19)
[2022-12-08] MEDS: FERROUS SULFATE 325 MG TAB PO SCH (08:19)
[2022-12-08] MEDS: ENOXAPARIN 40 MG/0.4 ML SYRINGE SQ SCH (08:19)
[2022-12-08 12:08] LABS: Glucose,Whole Blood 118 mg/dL (70-110)
--- NOTE | 2022-12-08 14:39 | P.PN ---
Subjective Progress Note Date: 12/08/22 Principal diagnosis: MRSA bacteremia and need for PICC line Patient is a 67-year-old male with recent history of MRSA infection for the patient was getting daptomycin in the outpatient setting the patient did pull out his PICC line has been brought back to the hospital for insertion of the PICC line which has been done. on today's evaluation that is 12/08/2022, the patient denies having any fever or any chills, patient seemed to be slightly upset, denies any chest pain shortness of breath or cough no nausea no vomiting and no diarrhea Objective - Vital Signs Vital signs: Vital Signs Temp 98.3 F 12/08/22 07:00 Pulse 90 12/08/22 07:00 Resp 18 12/08/22 07:00 BP 138/89 12/08/22 07:00 Pulse Ox 91 L 12/08/22 09:23 FiO2 Intake & Output 12/07/22 12/08/22 12/08/22 18:59 06:59 18:59 Intake Total 474 Output Total 1200 Balance 474 -1200 Intake: Oral 474 Output: Urine 1200 Other: Voiding Method Indwelling Catheter Indwelling Catheter Indwelling Catheter # Voids 400 - Exam GENERAL DESCRIPTION: An elderly male lying in bed in no distress RESPIRATORY SYSTEM: Unlabored breathing , decreased breath sounds at bases HEART: S1 S2 regular rate and rhythm , ABDOMEN: Soft , no tenderness - Labs CBC & Chem 7: 12/05/22 19:50 12/05/22 19:50 Labs: Abnormal Lab Results - Last 24 Hours (Table) 12/07/22 12/07/22 12/07/22 Range/Units 12:26 15:46 17:30 POC Glucose (mg/dL) 118 H 112 H 114 H (70-110) mg/dL 12/07/22 12/08/22 Range/Units 21:09 06:44 POC Glucose (mg/dL) 163 H 158 H (70-110) mg/dL Assessment and Plan (1) Bacteremia Current Visit: Yes Status: Acute Code(s): R78.81 - BACTEREMIA SNOMED Code(s): 0303572 Plan: 1patient with a recent MRSA bacteremia. The patient was receiving daptomycin in the outpatient setting and has received about 5 weeks of antibiotics patient has accidentally pulled out his PICC line which has been inserted we will continue the patient on daptomycin for another week to finish his 6-week course of therapy and the PICC line should be discontinued afterwards Questions and concerns were answered Time with Patient: Less than 30
[2022-12-08 15:21] VITALS: BP 163/95; PULSE 110; RESP 20; TEMP 98
[2022-12-12] MEDS ORDERED: ATORVASTATIN 80 MG TAB PO SCH (21:00)
== END 2022-12-08 15:50 ==
LOC: EC 19:12 → 6NMEDSUR 20:33
PROVIDERS: ADMIT Family Medicine; ATTEND Family Medicine
DX: T82.524A Displacement of infusion catheter, initial encounter (principal); A41.02 Sepsis due to Methicillin resistant Staphylococcus aureus; I48.91 Unspecified atrial fibrillation; F32.A Depression, unspecified; D68.62 Lupus anticoagulant syndrome; J44.9 Chronic obstructive pulmonary disease, unspecified; E78.5 Hyperlipidemia, unspecified; K21.9 Gastro-esophageal reflux disease without esophagitis; M54.50 Low back pain, unspecified; G89.29 Other chronic pain; E11.42 Type 2 diabetes mellitus with diabetic polyneuropathy; Z86.73 Personal history of transient ischemic attack (TIA), and cerebral infarction without residual deficits; Z89.612 Acquired absence of left leg above knee; Z79.899 Other long term (current) drug therapy; Z79.01 Long term (current) use of anticoagulants; Z79.4 Long term (current) use of insulin; Z88.2 Allergy status to sulfonamides; Z88.8 Allergy status to other drugs, medicaments and biological substances; Z91.041 Radiographic dye allergy status; Z86.718 Personal history of other venous thrombosis and embolism; Z86.711 Personal history of pulmonary embolism; Z99.3 Dependence on wheelchair; Z79.84 Long term (current) use of oral hypoglycemic drugs; Z95.828 Presence of other vascular implants and grafts; Z96.642 Presence of left artificial hip joint; Z87.891 Personal history of nicotine dependence; Z82.49 Family history of ischemic heart disease and other diseases of the circulatory system; Z83.3 Family history of diabetes mellitus; Z84.1 Family history of disorders of kidney and ureter; Z63.4 Disappearance and death of family member; Y84.8 Other medical procedures as the cause of abnormal reaction of the patient, or of later complication, without mention of misadventure at the time of the procedure
CPT/HCPCS: 96376 ×3; 96372; 96375 ×2; 96365 ×2; 99284; 36415; 94760; 97162; 97166; 36573; 80053; 85025; 85610; G0378 ×4; C1751; C1769; J2270 ×4; J2001; J1650; J0878 ×3; 83036

== ENCOUNTER 2022-12-23 09:55 | Inpatient (IN) | payer MEDICARE ==
[2022-12-23] MEDS ORDERED: DILTIAZEM DRIP BOLUS FROM BAG 1 MG SOLN IV ONE (10:12)
[2022-12-23] MEDS: DILTIAZEM 125 MG in SODIUM CHLORIDE 0.9% 100 ML IV SCH (10:35)
[2022-12-23 10:38] LABS: Anisocytosis Slight; Basophils % (A) 0 %; Eosinophils # (A) 0.1 k/uL (0-0.7); Eosinophils % (A) 1 %; HCT 41.1 % (39.0-53.0); HGB 12.8 gm/dL (13.0-17.5); Hypochromasia Moderate; Lymphocytes # (A) 1.2 k/uL (1.0-4.8); Lymphocytes % (A) 10 %; MCH 30.3 pg (25.0-35.0); MCHC 31.2 g/dL (31.0-37.0); MCV 97.3 fL (80.0-100.0); Macrocytosis Slight; Monocytes # (A) 0.5 k/uL (0-1.0); Monocytes % (A) 5 %; Neutrophils # (A) 9.8 k/uL (1.3-7.7); Neutrophils % (A) 84 %; Platelet Count 447 k/uL (150-450); RBC 4.22 m/uL (4.30-5.90); RDW 17.1 % (11.5-15.5); WBC 11.7 k/uL (3.8-10.6)
[2022-12-23 10:51] LABS: INR 1.6 (<1.2); Partial Thromboplastin Time 51.2 sec (22.0-30.0); Prothrombin Time 16.4 sec (9.0-12.0)
[2022-12-23 10:57] LABS: ALT 23 U/L (4-49); African American GFR (CKD) 38 (>60 ml/min/1.73 sqM); Albumin 3.2 g/dL (3.5-5.0); Anion Gap 11 mmol/L; Blood Urea Nitrogen 59 mg/dL (9-20); Calcium 8.2 mg/dL (8.4-10.2); Carbon Dioxide 25 mmol/L (22-30); Chloride 99 mmol/L (98-107); Glucose 225 mg/dL (74-99); Non-African American GFR(CKD) 33 (>60 ml/min/1.73 sqM); Sodium 135 mmol/L (137-145); Total Bilirubin 1.3 mg/dL (0.2-1.3); Total Protein 7.4 g/dL (6.3-8.2)
[2022-12-23 10:58] LABS: AST 32 U/L (17-59); Alkaline Phosphatase 117 U/L (38-126); Magnesium 2.1 mg/dL (1.6-2.3); Potassium 4.9 mmol/L (3.5-5.1)
--- NOTE | 2022-12-23 11:13 | ED ---
General Adult HPI - General Chief complaint: Chest Pain Stated complaint: weakness, back pain Time Seen by Provider: 12/23/22 10:30 Source: patient, EMS, RN notes reviewed, old records reviewed Mode of arrival: EMS Limitations: physical limitation - History of Present Illness Initial comments: This is a 67-year-old male who presents emergency part with past medical history significant for atrial fibrillation. Patient was a cardiology's office today a nd though the history that was very poor EMS states when they arrived at the scene the caregivers from the [facility] brought him out and stated that cardiology wanted the patient to go to the ER because he was tachycardic. Patient currently complains of chronic back pain as well as chest pain today he describes the chest pain is pressure. Patient is somewhat hostile and uncooperative. No cardiology and spoke to us about this patient and why the ambulance was called. According to EMS the heart rate was anywhere from 120 beats 270 beats - Related Data Home Medications Medication Instructions Recorded Confirmed Atorvastatin [Lipitor] 80 mg PO HS 08/27/22 12/23/22 Loratadine 10 mg PO DAILY 08/27/22 12/23/22 Dabigatran [Pradaxa] 150 mg PO BID@0800,1600 10/28/22 12/23/22 Ferrous Sulfate [Iron (65 MG 325 mg PO BID 10/28/22 12/23/22 Elemental)] Omeprazole [PriLOSEC] 20 mg PO DAILY 10/28/22 12/23/22 Sennosides [Senokot] 8.6 mg PO BID 10/28/22 12/23/22 Acetaminophen Tab [Tylenol] 650 mg PO Q6H PRN 11/20/22 12/23/22 Multivitamins, Thera [Multivitamin 1 tab PO DAILY@0800 11/20/22 12/23/22 (formulary)] Nortriptyline HCl 75 mg PO HS 11/20/22 12/23/22 HYDROcodone/APAP 7.5-325MG [[place] 1 tab PO Q6HR PRN 12/05/22 12/23/22 7.5-325] Insulin Glargine,Hum.rec.anlog 14 units SQ HS 12/05/22 12/23/22 [Lantus Solostar Pen] Insulin Lispro [humaLOG Kwikpen] See Protocol SQ ACHS@07,11,16,20 05/29/23 06/16/23 Lidocaine [Aspercreme Patch] 1 patch TRANSDERM DAILY 12/05/22 12/23/22 Magnesium Hydroxide [Milk of 2,400 mg PO DAILY PRN 12/05/22 12/23/22 Magnesia] Pregabalin [Lyrica] 300 mg PO BID@0800,1600 12/23/22 12/23/22 Previous Rx's Medication Instructions Recorded Bumetanide [BUMEX] 1 mg PO DAILY@1600 tab 11/09/22 Ipratropium-Albuterol Nebulize 3 ml INHALATION RT-Q6H PRN each 11/09/22 [Duoneb 0.5 mg-3 mg/3 ml Soln] methIMAzole [Tapazole] 5 mg PO TID tab 11/09/22 Digoxin [Lanoxin] 125 mcg PO DAILY tab 11/28/22 Allergies Allergy/AdvReac Type Severity Reaction Status Date / Time baclofen Allergy Unknown Verified 12/23/22 12:58 Iodinated Contrast Media Allergy Unknown Verified 12/23/22 12:58 sulfamethoxazole Allergy Unknown Verified 12/23/22 12:58 [From Bactrim] trimethoprim [From Bactrim] Allergy Unknown Verified 12/23/22 12:58 apixaban [From Eliquis] AdvReac "felt Verified 12/23/22 12:58 funny" Review of Systems ROS Statement: Those systems with pertinent positive or pertinent negative responses have been documented in the HPI. ROS Other: All systems not noted in ROS Statement are negative. Past Medical History Past Medical History: Atrial Fibrillation, Asthma, COPD, CVA/TIA, Diabetes Mellitus, Deep Vein Thrombosis (DVT), GERD/Reflux, Hyperlipidemia, Hypertension, Neurologic Disorder, Osteoarthritis (OA), Pneumonia, Pulmonary Embolus (PE), Skin Disorder, Vascular Disorder Additional Past Medical History / Comment(s): Pt admitted to [facility] on 11/20/20 with hyperkalemia, hyperglycemia, uncontrolled diabetes. Other hx: Lupus anticoagulant, DVTs bilateral legs, PEs bilateral lungs in , pt has zina filter, L AKA/wheelchair bound, NIDDM type II, neuropathy bilateral hands, wound care patient for buttock wound, now healed, TIAs, pneumothorax, past migraines, chronic low back pain, R leg edema at times, varicosities. History of Any Multi-Drug Resistant Organisms: MRSA Date of last positivie culture/infection: 11/02/22 MDRO Source:: Blood Past Surgical History: Adenoidectomy, Appendectomy, Tonsillectomy Additional Past Surgical History / Comment(s): 1980s Zina filter, stents in vessels "in pelvic area", total L hip arthroplasty, vein strippings, colonoscopy. left leg amputation Past Anesthesia/Blood Transfusion Reactions: No Reported Reaction Additional Past Anesthesia/Blood Transfusion Reaction / Comment(s): Pt has received blood in past without reaction. Past Psychological History: No Psychological Hx Reported Smoking Status: Former smoker Past Alcohol Use History: None Reported Past Drug Use History: None Reported - Past Family History Mother Family Medical History: Coronary Artery Disease (CAD), Myocardial Infarction (LA), Vascular Disorder Additional Family Medical History / Comment(s): heart disease, peripheral vascular disease. Father Family Medical History: Diabetes Mellitus, Renal Disease General Exam - General Exam Comments Initial Comments: GENERAL: Patient is well-developed and well-nourished. Patient is nontoxic and well- hydrated and is in mild distress. ENT: Neck is soft and supple. No significant lymphadenopathy is noted. Oropharynx is clear. Moist mucous membranes. Neck has full range of motion without eliciting any pain. EYES: The sclera were anicteric and conjunctiva were pink and moist. Extraocular movements were intact and pupils were equal round and reactive to light. Eyelids were unremarkable. PULMONARY: Unlabored respirations. Good breath sounds bilaterally. No audible rales rhonchi or wheezing was noted. CARDIOVASCULAR: Patient is tachycardic at 130 beats a minute and irregular ABDOMEN: Soft and nontender with normal bowel sounds. SKIN: Skin is clear with no lesions or rashes and otherwise unremarkable. NEUROLOGIC: Patient is alert and oriented 3 cranial nerves II through XII are grossly intac t. MUSCULOSKELETAL: Patient has a BKA on the left. LYMPHATICS: No significant lymphadenopathy is noted PSYCHIATRIC: Normal psychiatric evaluation. Limitations: physical limitation Course Vital Signs 12/23/22 12/23/22 12/23/22 10:30 10:31 12:00 Temperature 97.9 F Pulse Rate 124 H 122 H 107 H Respiratory 18 18 18 Rate Blood Pressure 108/65 120/78 106/84 O2 Sat by Pulse 94 L 98 Oximetry Medical Decision Making - Medical Decision Making EKG as interpreted by myself. EKG shows atrial fibrillation with rapid ventricular response at 122 bpm QRS is 174 QT interval 362 QTC is 4:30.. Patient does have a right bundle branch block Was pt. sent in by a medical professional or institution ([facility], [employer], urgent care, hospital, or fpc...) When possible be specific @ -Patient was sent over by cardiology Did you speak to anyone other than the patient for history (EMS, parent, family, police, friend...)? What history was obtained from this source @ -EMS gave all the history the patient was very uncooperative Did you review nursing and triage notes (agree or disagree)? Why? @ -I reviewed and agree with nursing and triage notes Were old charts reviewed (outside hosp., previous admission, EMS record, old EKG, old radiological studies, urgent care reports/EKG's, fpc records)? Report findings @ -I reviewed prior to charts I were in prior EKGs in this patient Differential Diagnosis (chest pain, altered mental status, abdominal pain women, abdominal pain men, vaginal bleeding, weakness, fever, dyspnea, syncope, headache, dizziness, GI bleed, back pain, seizure, CVA, palpatations, mental health, musculoskeletal)? @ -Differential Chest Pain: Stable Angina, Unstable Angina, STEMI, NSTEMI Aortic Dissection, Pneumothorax, Musculoskeletal, Esophageal Spasm GERD, Cholecystitis, Pancreatitis, Zoster, this is not meant to be an all-inclusive list. EKG interpreted by me (3pts min.). @ -As above X-rays interpreted by me (1pt min.). @ -Chest x-ray shows no acute abnormality CT interpreted by me (1pt min.). @ -None done U/S interpreted by me (1pt. min.). @ -None done What testing was considered but not performed or refused? (CT, X-rays, U/S, labs)? Why? @ -None What meds were considered but not given or refused? Why? @ -None Did you discuss the management of the patient with other professionals (professionals i.e. [facility], [employer] REPAIRER, lab, RT, psych nurse, social service manager, sap basis, teacher, combatant diver officer, director of casework)? Give summary @ -I spoke with Dr. Bhakta he agreed to admit the patient admitted the patient. Was smoking cessation discussed for >3mins.? @ -No Was critical care preformed (if so, how long)? @ -35 minutes Were there social determinants of health that impacted care today? How? (Homelessness, low income, unemployed, alcoholism, drug addiction, transportation, low edu. Level, literacy, decrease access to med. care, skilled nursing, rehab)? @ -No Was there de-escalation of care discussed even if they declined (Discuss DNR or withdrawal of care, Hospice)? DNR status @ -No What co-morbidities impacted this encounter? (DM, HTN, Smoking, COPD, CAD, Cancer, CVA, ARF, Chemo, Hep., AIDS, mental health diagnosis, sleep apnea, morbid obesity)? @ -None Was patient admitted / discharged? Hospital course, mention meds given and route , prescriptions, significant lab abnormalities, going to OR and other pertinent info. @ -I saw the patient patient's atrial fibrillation with rapid ventricular eye spoke with Dr. Rivera he agreed to admit the patient and the patient I consult cardiology. Patient had renal failure that is worse than it has been Undiagnosed new problem with uncertain prognosis? @ -No Drug Therapy requiring intensive monitoring for toxicity (Heparin, Nitro, Insulin, Cardizem)? @ -No Were any procedures done? @ -No Diagnosis/symptom? @ -Atrial fibrillation with rapid ventricular response Acute, or Chronic, or Acute on Chronic? @ -Acute Uncomplicated (without systemic symptoms) or Complicated (systemic symptoms)? @ -Complicated Side effects of treatment? @ -No Exacerbation, Progression, or Severe Exacerbation? @ -No Poses a threat to life or bodily function? How? (Chest pain, USA, LA, pneumonia, PE, COPD, DKA, ARF, appy, cholecystitis, CVA, Diverticulitis, Homicidal, Suicidal, threat to staff... and all critical care pts) @ -Yes this could lead to poor perfusion and nontender organ dysfunction Diagnosis/symptom? @ -Chest pain Acute, or Chronic, or Acute on Chronic? @ -Acute Uncomplicated (without systemic symptoms) or Complicated (systemic symptoms)? @ -Complicated Side effects of treatment? @ -none Exacerbation, Progression, or Severe Exacerbation] @ -no Poses a threat to life or bodily function? @ -Yes this could lead to an MRI which could lead to end organ dysfunction Diagnosis/symptom? @ -Acute on chronic renal failure Acute, or Chronic, or Acute on Chronic? @ -default Uncomplicated (without systemic symptoms) or Complicated (systemic symptoms)? @ -Complicated Side effects of treatment? @ -none Exacerbation, Progression, or Severe Exacerbation] @ -no Poses a threat to life or bodily function? @ -no Dr. Bhakta never called back to Dr. Rivera was eventually called and the patient will be admitted to Dr. Rivera. After Dr. Rivera accepted the patient and the patient was admitted to Dr. Bhakta called back and wanted me to transfer the patient back to him so I did so - Lab Data Result diagrams: 12/23/22 10:25 12/23/22 10:33 Lab Results 12/23/22 12/23/22 12/23/22 Range/Units 10:25 10:33 10:33 WBC 11.7 H (3.8-10.6) k/uL RBC 4.22 L (4.30-5.90) m/uL Hgb 12.8 L (13.0-17.5) gm/dL Hct 41.1 (39.0-53.0) % MCV 97.3 (80.0-100.0) fL MCH 30.3 (25.0-35.0) pg MCHC 31.2 (31.0-37.0) g/dL RDW 17.1 H (11.5-15.5) % Plt Count 447 (150-450) k/uL MPV 8.0 Neutrophils % 84 % Lymphocytes % 10 % Monocytes % 5 % Eosinophils % 1 % Basophils % 0 % Neutrophils # 9.8 H (1.3-7.7) k/uL Lymphocytes # 1.2 (1.0-4.8) k/uL Monocytes # 0.5 (0-1.0) k/uL Eosinophils # 0.1 (0-0.7) k/uL Basophils # 0.0 (0-0.2) k/uL Hypochromasia Moderate Anisocytosis Slight Macrocytosis Slight PT 16.4 H (9.0-12.0) sec INR 1.6 H (<1.2) APTT 51.2 H (22.0-30.0) sec Sodium 135 L (137-145) mmol/L Potassium 4.9 (3.5-5.1) mmol/L Chloride 99 (98-107) mmol/L Carbon Dioxide 25 (22-30) mmol/L Anion Gap 11 mmol/L BUN 59 H (9-20) mg/dL Creatinine 2.05 H (0.66-1.25) mg/dL Est GFR (CKD-EPI)AfAm 38 (>60 ml/min/1.73 sqM) Est GFR (CKD-EPI)NonAf 33 (>60 ml/min/1.73 sqM) Glucose 225 H (74-99) mg/dL Calcium 8.2 L (8.4-10.2) mg/dL Magnesium 2.1 (1.6-2.3) mg/dL Total Bilirubin 1.3 (0.2-1.3) mg/dL AST 32 (17-59) U/L ALT 23 (4-49) U/L Alkaline Phosphatase 117 (38-126) U/L Troponin I (0.000-0.034) ng/mL NT-Pro-B Natriuret Pep pg/mL Total Protein 7.4 (6.3-8.2) g/dL Albumin 3.2 L (3.5-5.0) g/dL 12/23/22/ Range/Units 10:33 10:33 WBC (3.8-10.6) k/uL RBC (4.30-5.90) m/uL Hgb (13.0-17.5) gm/dL Hct (39.0-53.0) % MCV (80.0-100.0) fL MCH (25.0-35.0) pg MCHC (31.0-37.0) g/dL RDW (11.5-15.5) % Plt Count (150-450) k/uL MPV Neutrophils % % Lymphocytes % % Monocytes % % Eosinophils % % Basophils % % Neutrophils # (1.3-7.7) k/uL Lymphocytes # (1.0-4.8) k/uL Monocytes # (0-1.0) k/uL Eosinophils # (0-0.7) k/uL Basophils # (0-0.2) k/uL Hypochromasia Anisocytosis Macrocytosis PT (9.0-12.0) sec INR (<1.2) APTT (22.0-30.0) sec Sodium (137-145) mmol/L Potassium (3.5-5.1) mmol/L Chloride (98-107) mmol/L Carbon Dioxide (22-30) mmol/L Anion Gap mmol/L BUN (9-20) mg/dL Creatinine (0.66-1.25) mg/dL Est GFR (CKD-EPI)AfAm (>60 ml/min/1.73 sqM) Est GFR (CKD-EPI)NonAf (>60 ml/min/1.73 sqM) Glucose (74-99) mg/dL Calcium (8.4-10.2) mg/dL Magnesium (1.6-2.3) mg/dL Total Bilirubin (0.2-1.3) mg/dL AST (17-59) U/L ALT (4-49) U/L Alkaline Phosphatase (38-126) U/L Troponin I 0.044 H* (0.000-0.034) ng/mL NT-Pro-B Natriuret Pep 6370 pg/mL Total Protein (6.3-8.2) g/dL Albumin (3.5-5.0) g/dL Disposition Clinical Impression: Atrial fibrillation with rapid ventricular response, Chest pain, Acute on chronic renal failure Disposition: ADMITTED IP TO THIS HOSP Referrals: Quintin Bhakta MD [Primary Care Provider] - 1-2 days Time of Disposition: 12:33
--- NOTE | 2022-12-23 11:19 | XR ---
EXAMINATION TYPE: XR chest 2V DATE OF EXAM: 12/23/2022 COMPARISON: 11/20/2022 HISTORY: 67-year-old male with chest pain TECHNIQUE: AP and lateral views FINDINGS: Heart is enlarged. Mild hyperinflation. No olman consolidation or pleural effusion. Left PICC tip see n to the lower SVC. Hazy densities related to overlying soft tissue from body habitus. IMPRESSION: Mild cardiomegaly. Mild hyperinflation may relate to depth of inspiration underlying emphysema.
[2022-12-23] MEDS ORDERED: NITROGLYCERIN SL TABS 0.4 MG TAB SUBLINGUAL PRN (13:43)
[2022-12-23] MEDS ORDERED: IPRATROPIUM-ALBUTEROL 3 ML NEB INHALATION PRN (14:06)
[2022-12-23] MEDS ORDERED: MAGNESIUM HYDROXIDE 2,400 MG/10 ML CUP PO PRN (14:06)
[2022-12-23] MEDS: methIMAzole 5 MG TAB PO SCH ×2 (16:39→21:17)
[2022-12-23] MEDS: DABIGATRAN 150 MG CAP PO SCH (16:39)
[2022-12-23] MEDS: BUMETANIDE 1 MG TAB PO SCH (16:41)
[2022-12-23] MEDS: PREGABALIN 100 MG CAP PO SCH (16:41)
[2022-12-23 17:46] LABS: Glucose,Whole Blood 149 mg/dL (70-110)
[2022-12-23] MEDS: NITROGLYCERIN OINT 1 INCH/GM PACKET TOPICAL SCH ×2 (19:24→23:37)
[2022-12-23 20:10] LABS: Glucose,Whole Blood 235 mg/dL (70-110)
[2022-12-23] MEDS: SENNOSIDES 8.6 MG TAB PO SCH (20:47)
[2022-12-23] MEDS ORDERED: INSULIN DETEMIR (LEVEMIR) 100 UNIT/ML SYR SQ SCH (21:00)
[2022-12-23] MEDS: FERROUS SULFATE 325 MG TAB PO SCH (21:15)
[2022-12-23] MEDS: HYDROcodone/APAP 7.5-325MG 1 EACH TAB PO PRN (21:15)
[2022-12-23] MEDS: ATORVASTATIN 80 MG TAB PO SCH (21:15)
[2022-12-23] MEDS: NORTRIPTYLINE 25 MG CAP PO SCH (21:16)
[2022-12-24] MEDS: NITROGLYCERIN OINT 1 INCH/GM PACKET TOPICAL SCH ×4 (05:45→23:00)
[2022-12-24] MEDS: DILTIAZEM 125 MG in SODIUM CHLORIDE 0.9% 100 ML IV SCH (05:59)
[2022-12-24 06:14] LABS: Glucose,Whole Blood 142 mg/dL (70-110)
--- NOTE | 2022-12-24 08:14 | P.CRDCN ---
History of Present Illness Consult date: 12/24/22 History of present illness: This is another admission for this 67-year-old gentleman who is known to our service from before with a past medical history significant for permanent atrial fibrillation and cardiomyopathy as well as multiple comorbid conditions including change in mental status was brought from extended care facility to the hospital with atrial fibrillation with RVR. The patient is very poor historian and he does have significant change in mental status and he is lethargic. No indication that he was experiencing any chest pain or chest discomfort or shortness of breath or dizziness or lightheadedness. He was found to be in A. fib with RVR and subsequently was admitted to the hospital for further evaluation. He underwent an EKG which showed atrial fibrillation with diffuse nonspecific ST and T wave abnormalities and subsequently was started on Cardizem IV at 5 mg per hour. Currently he is not on any AV sabrina maria agents orally. I'm going to start him on metoprolol tartrate 12.5 mg by mouth twice a day. The patient does have multiple comorbid conditions including history of lower extremity is PAD and status post left govbk-psr-ihto amputation. Beside that he is on oral anticoagulation. Recent echo showed impaired LV function with EF between 30-35%. On examination he does have significant change in mental status. He does have distant heart sounds with diminished breathing sounds bilaterally and left vktfc-uvb-qdtr amputation Assessment Change in mental status Atrial fibrillation with rapid ventricular response History of cardiomyopathy known from before History of left tqxzk-dhh-jkuh amputation Plan Start the patient on small dose of beta maria given be marginally low blood pressure Continue oral anticoagulation No need to repeat the echocardiogram The right to wean the patient from the Cardizem IV Follow-up with the patient Past Medical History Past Medical History: Atrial Fibrillation, Asthma, COPD, CVA/TIA, Diabetes Mellitus, Deep Vein Thrombosis (DVT), GERD/Reflux, Hyperlipidemia, Hypertension, Neurologic Disorder, Osteoarthritis (OA), Pneumonia, Pulmonary Embolus (PE), Skin Disorder, Vascular Disorder Additional Past Medical History / Comment(s): Pt admitted to [facility] on 11/20/20 with hyperkalemia, hyperglycemia, uncontrolled diabetes. Other hx: Lupus anticoagulant, DVTs bilateral legs, PEs bilateral lungs in , pt has green field filter, L AKA/wheelchair bound, NIDDM type II, neuropathy bilateral hands, wound care patient for buttock wound, now healed, TIAs, pneumothorax, past migraines, chronic low back pain, R leg edema at times, varicosities. History of Any Multi-Drug Resistant Organisms: MRSA Date of last positivie culture/infection: 11/02/22 MDRO Source:: Blood Past Surgical History: Adenoidectomy, Appendectomy, Tonsillectomy Additional Past Surgical History / Comment(s): Isabell filter, stents in vessels "in pelvic area", total L hip arthroplasty, vein strippings, colonoscopy. left leg amputation Past Anesthesia/Blood Transfusion Reactions: No Reported Reaction Additional Past Anesthesia/Blood Transfusion Reaction / Comment(s): Pt has received blood in past without reaction. Past Psychological History: No Psychological Hx Reported Additional Psychological History / Comment(s): Pt currently living in hotels, He has a glucometer. He has a nebulizer. Pt has prosthetic, states it is being worked on. Smoking Status: Former smoker Past Alcohol Use History: None Reported Additional Past Alcohol Use History / Comment(s): Pt startes smoking in 1969 and is a ppd smoker. Past Drug Use History: None Reported - Past Family History Mother Family Medical History: Coronary Artery Disease (CAD), Myocardial Infarction ([place]), Vascular Disorder Additional Family Medical History / Comment(s): heart disease, peripheral vascular disease. Father Family Medical History: Diabetes Mellitus, Renal Disease Medications and Allergies Home Medications Medication Instructions Recorded Confirmed Type Atorvastatin [Lipitor] 80 mg PO HS 08/27/22 12/23/22 History Loratadine 10 mg PO DAILY 08/27/22 12/23/22 History Dabigatran [Pradaxa] 150 mg PO BID@0800,1600 10/28/22 12/23/22 History Ferrous Sulfate [Iron (65 MG 325 mg PO BID 10/28/22 12/23/22 History Elemental)] Omeprazole [PriLOSEC] 20 mg PO DAILY 10/28/22 12/23/22 History Sennosides [Senokot] 8.6 mg PO BID 10/28/22 12/23/22 History Bumetanide [BUMEX] 1 mg PO DAILY@1600 tab 11/09/22 12/23/22 Rx Ipratropium-Albuterol Nebulize 3 ml INHALATION RT-Q6H PRN each 11/09/22 12/23/22 Rx [Duoneb 0.5 mg-3 mg/3 ml Soln] methIMAzole [Tapazole] 5 mg PO TID tab 11/09/22 12/23/22 Rx Acetaminophen Tab [Tylenol] 650 mg PO Q6H PRN 11/20/22 12/23/22 History Multivitamins, Thera [Multivitamin 1 tab PO DAILY@0800 11/20/22 12/23/22 History (formulary)] Nortriptyline HCl 75 mg PO HS 11/20/22 12/23/22 History Digoxin [Lanoxin] 125 mcg PO DAILY tab 11/28/22 12/23/22 Rx HYDROcodone/APAP 7.5-325MG [[place] 1 tab PO Q6HR PRN 12/05/22 12/23/22 History 7.5-325] Insulin Glargine,Hum.rec.anlog 14 units SQ HS 12/05/22 12/23/22 History [Lantus Solostar Pen] Insulin Lispro [humaLOG Kwikpen] See Protocol SQ ACHS@07,11,16,20 12/05/22 12/23/22 History Lidocaine [Aspercreme Patch] 1 patch TRANSDERM DAILY 12/05/22 12/23/22 History Magnesium Hydroxide [Milk of 2,400 mg PO DAILY PRN 12/05/22 12/23/22 History Magnesia] Pregabalin [Lyrica] 300 mg PO BID@0800,1600 12/23/22 12/23/22 History Allergies Allergy/AdvReac Type Severity Reaction Status Date / Time baclofen Allergy Unknown Verified 12/23/22 12:58 Iodinated Contrast Media Allergy Unknown Verified 12/23/22 12:58 sulfamethoxazole Allergy Unknown Verified 12/23/22 12:58 [From Bactrim] trimethoprim [From Bactrim] Allergy Unknown Verified 12/23/22 12:58 apixaban [From Eliquis] AdvReac "felt Verified 12/23/22 12:58 funny" Physical Exam Vitals: Vital Signs Temp Pulse Pulse Resp BP BP Pulse Ox 12/24/22 04:00 97.3 F L 69 16 139/81 96 12/24/22 00:00 98.3 F 81 18 98/63 97 12/23/22 20:49 94 L 12/23/22 20:00 98.4 F 97 18 131/64 93 L 12/23/22 17:56 97.7 F 90 20 107/54 95 12/23/22 15:25 98 16 116/67 97 12/23/22 14:54 84 18 105/64 12/23/22 14:00 103 H 18 103/82 12/23/22 13:00 105 H 18 121/82 12/23/22 12:00 107 H 18 106/84 12/23/22 10:31 97.9 F 122 H 18 120/78 98 12/23/22 10:30 124 H 18 108/65 94 L Intake and Output 12/23/22 12/24/22 12/24/22 22:59 06:59 14:59 Intake Total 97 Output Total 100 Balance -3 Intake: Intake, IV Titration 97 Amount Diltiazem 125 mg In 97 Sodium Chloride 0.9% 100 ml @ 5 MG/HR 5 mls/hr IV .Q24H [facility] Rx#:[id number] Output: Urine 100 Other: Voiding Method External Catheter External Catheter # Voids 1 Results 12/23/22 10:25 12/23/22 10:33 Cardiac Enzymes 12/23/22 12/23/22 12/23/22 Range/Units 10:33 10:33 14:08 AST 32 (17-59) U/L Troponin I 0.044 H* 0.036 H* (0.000-0.034) ng/mL 12/23/22 Range/Units 17:34 AST (17-59) U/L Troponin I 0.040 H* (0.000-0.034) ng/mL Coagulation 12/23/22 Range/Units 10:33 PT 16.4 H (9.0-12.0) sec APTT 51.2 H (22.0-30.0) sec CBC 12/23/22 Range/Units 10:25 WBC 11.7 H (3.8-10.6) k/uL RBC 4.22 L (4.30-5.90) m/uL Hgb 12.8 L (13.0-17.5) gm/dL Hct 41.1 (39.0-53.0) % Plt Count 447 (150-450) k/uL Comprehensive Metabolic Panel 12/23/22 Range/Units 10:33 Sodium 135 L (137-145) mmol/L Potassium 4.9 (3.5-5.1) mmol/L Chloride 99 (98-107) mmol/L Carbon Dioxide 25 (22-30) mmol/L BUN 59 H (9-20) mg/dL Creatinine 2.05 H (0.66-1.25) mg/dL Glucose 225 H (74-99) mg/dL Calcium 8.2 L (8.4-10.2) mg/dL AST 32 (17-59) U/L ALT 23 (4-49) U/L Alkaline Phosphatase 117 (38-126) U/L Total Protein 7.4 (6.3-8.2) g/dL Albumin 3.2 L (3.5-5.0) g/dL Current Medications Generic Name Dose Route Start Last Admin Trade Name Freq PRN Reason Stop Dose Admin Hydrocodone Bitart/Acetaminophen 1 each 12/23/22 14:06 12/23/22 21:15 Hydrocodone/Apap 7.5-325mg 1 Each Tab PO 1 each Q6HR PRN Administration Pain Albuterol/Ipratropium 3 ml 12/23/22 14:06 Ipratropium-Albuterol 3 Ml Neb INHALATION RT-Q6H PRN Shortness Of Breath Aspirin 325 mg 12/24/22 09:00 Aspirin 325 Mg Tab [address] [facility] Atorvastatin Calcium 80 mg 12/23/22 21:00 12/23/22 21:15 Atorvastatin 80 Mg Tab PO 80 mg HS HELENE Administration Bumetanide 1 mg 12/23/22 16:00 12/23/22 16:41 Bumetanide 1 Mg Tab PO 1 mg DAILY@1600 [facility] Administration Dabigatran 150 mg 12/23/22 16:00 12/23/22 16:39 Dabigatran 150 Mg Cap PO 150 mg BID@0800,1600 [facility] Administration Protocol Digoxin 125 mcg 12/24/22 09:00 Digoxin 125 Mcg Tab PO DAILY HELENE Ferrous Sulfate 325 mg 12/23/22 21:00 12/23/22 21:15 Ferrous Sulfate 325 Mg Tab PO 325 mg BID HELENE Administration Diltiazem HCl 125 mg/ Sodium 125 mls @ 5 mls/hr 12/23/22 10:15 12/24/22 05:59 Chloride IV 5 mg/hr .Q24H HELENE 5 mls/hr Administration 5 MG/HR Insulin Detemir 14 unit 12/23/22 21:00 12/23/22 21:15 Insulin Detemir (Levemir) 100 Unit/Ml Syr SQ [address] [facility] Administration Loratadine 10 mg 12/24/22 09:00 Loratadine 10 Mg Tab PO DAILY [facility] Magnesium Hydroxide 2,400 mg 12/23/22 14:06 Magnesium Hydroxide 2,400 Mg/10 Ml Cup PO DAILY PRN Constipation Methimazole 5 mg 12/23/22 16:00 12/23/22 21:17 Methimazole 5 Mg Tab PO [address] [facility] Administration Multivitamins 1 each 12/24/22 08:00 Multivitamins, Thera 1 Each Tab PO DAILY@0800 [facility] Nitroglycerin 0.4 mg 12/23/22 13:43 Nitroglycerin Sl Tabs 0.4 Mg Tab SUBLINGUAL Q5M PRN Chest Pain Nitroglycerin 1 inch 12/23/22 18:00 12/24/22 05:45 Nitroglycerin Oint 1 Inch/Gm Packet TOPICAL Not Given Q6HR [facility] Non-Formulary Medication 1 patch 12/24/22 09:00 Lidocaine [Aspercreme Patch] TRANSDERM DAILY [facility] Nortriptyline HCl 75 mg 12/23/22 21:00 12/23/22 21:16 Nortriptyline 25 Mg Cap PO [address] [facility] Administration Pantoprazole Sodium 40 mg 12/24/22 09:00 Pantoprazole 40 Mg Tablet PO DAILY [facility] Pregabalin 300 mg 12/23/22 16:00 12/23/22 16:41 Pregabalin 100 Mg Cap PO 300 mg BID@0800,1600 [facility] Administration Senna 8.6 mg 12/23/22 21:00 12/23/22 20:47 Sennosides 8.6 Mg Tab PO Not Given BID [facility] Intake and Output 12/23/22 12/24/22 12/24/22 22:59 06:59 14:59 Intake Total 97 Output Total 100 Balance -3 Intake: Intake, IV Titration 97 Amount Diltiazem 125 mg In 97 Sodium Chloride 0.9% 100 ml @ 5 MG/HR 5 mls/hr IV .Q24H [facility] Rx#:[id number] Output: Urine 100 Other: Voiding Method External Catheter External Catheter # Voids 1 12/23/22 10:25 12/23/22 10:33
[2022-12-24] MEDS: DABIGATRAN 150 MG CAP PO SCH ×2 (09:14→17:23)
[2022-12-24] MEDS: DIGOXIN 125 MCG TAB PO SCH (09:15)
[2022-12-24] MEDS: methIMAzole 5 MG TAB PO SCH ×3 (09:15→20:23)
[2022-12-24] MEDS: FERROUS SULFATE 325 MG TAB PO SCH ×2 (09:15→20:23)
[2022-12-24] MEDS: MULTIVITAMINS, THERA 1 EACH TAB PO SCH (09:15)
[2022-12-24] MEDS: PANTOPRAZOLE 40 MG TABLET PO SCH (09:15)
[2022-12-24] MEDS: PREGABALIN 100 MG CAP PO SCH ×2 (09:15→17:23)
[2022-12-24] MEDS: LORATADINE 10 MG TAB PO SCH (09:15)
[2022-12-24] MEDS: ASPIRIN 325 MG TAB PO SCH (09:15)
[2022-12-24] MEDS: METOPROLOL TARTRATE 12.5 MG TAB PO SCH ×2 (09:15→20:23)
[2022-12-24] MEDS: SENNOSIDES 8.6 MG TAB PO SCH ×2 (09:15→20:23)
[2022-12-24] MEDS: LIDOCAINE TRANSDERM SCH (09:16)
[2022-12-24 11:44] LABS: Glucose,Whole Blood 141 mg/dL (70-110)
--- NOTE | 2022-12-24 12:34 | HP ---
HISTORY AND PHYSICAL HISTORY OF PRESENT ILLNESS: This 67-year-old white male came to the emergency room because his kidneys were shut down, he is unable to pee. He came with atrial fibrillation with RVR, started on Cardizem drip in the ER. He was admitted to the hospital. Cardiology has been consulted, from the custodial. Heart rate went from 120 up to 270 beats per minute. HOME MEDICINES: 1. Lipitor 80 q.h.s. 2. Loratadine 10 mg daily. 3. Ranexa 150 b.i.d. 4. Ferrous sulfate 325 daily. 5. Prilosec 20 mg daily. 6. Senokot 8.6 mg b.i.d. 7. Tylenol p.r.n. 8. Lantus 14 units subcu daily. 9. [place] 7.5 q.6. 10.Nortriptyline 75 . 11.Multivitamin daily. 12.Lidocaine patch daily. 13.Magnesium 2500 mg daily. 14. 300 b.i.d. ALLERGIES: Baclofen, iodine, Bactrim, Eliquis. REVIEW OF SYSTEMS: A 14-point review of systems otherwise reviewed. PHYSICAL EXAMINATION: VITAL SIGNS: Pulse is 107/124, temp 97.9, respiratory rate 16 to 18, blood pressure 106 to 120 over 60s to 80s, and O2 94 to 98. NEUROLOGIC: Cranial nerves intact. PSYCH: Fair mood and affect. CARDIOVASCULAR: Tachycardic 130 beats per minute. ABDOMEN: Soft, nontender. SKIN: No rashes , excoriation, or bruising. HEENT: Pupils equal, round, and reactive. PULMONARY: Diffuse breath sounds, scattered rhonchi x4. EKG, atrial fibrillation with RVR. ASSESSMENT: Atrial fibrillation RVR. He has acute on chronic renal failure dehydration. Severe COPD, pulmonary hypertension, oxygen-dependent, and renal insufficiency. Prognosis is guarded. Follow up in next 24 to 48 hours. Diabetes mellitus, controlled. Accu-Chek protocol. Continue current treatment. MMODL / IJN: [id number] /
[2022-12-24 13:44] LABS: Chol/HDL Ratio 3.71 Ratio; LDL Cholesterol,Calculated 97.9 mg/dL (0.0-131.0)
[2022-12-24 16:43] LABS: Glucose,Whole Blood 106 mg/dL (70-110)
[2022-12-24] MEDS: BUMETANIDE 1 MG TAB PO SCH (17:23)
[2022-12-24 20:19] LABS: Glucose,Whole Blood 198 mg/dL (70-110)
[2022-12-24] MEDS: ATORVASTATIN 80 MG TAB PO SCH (20:23)
[2022-12-24] MEDS: NORTRIPTYLINE 25 MG CAP PO SCH (20:24)
[2022-12-24] MEDS: INSULIN DETEMIR (LEVEMIR) 100 UNIT/ML SYR SQ SCH (22:59)
[2022-12-25] MEDS: NITROGLYCERIN OINT 1 INCH/GM PACKET TOPICAL SCH ×4 (05:57→23:34)
[2022-12-25 06:16] LABS: Glucose,Whole Blood 106 mg/dL (70-110)
[2022-12-25] MEDS: DILTIAZEM 125 MG in SODIUM CHLORIDE 0.9% 100 ML IV SCH (06:33)
[2022-12-25 07:49] LABS: Anisocytosis Slight; Basophils % (A) 0 %; Eosinophils # (A) 0.1 k/uL (0-0.7); Eosinophils % (A) 2 %; HCT 37.8 % (39.0-53.0); HGB 11.5 gm/dL (13.0-17.5); Hypochromasia Moderate; Lymphocytes # (A) 0.9 k/uL (1.0-4.8); Lymphocytes % (A) 10 %; MCH 29.7 pg (25.0-35.0); MCHC 30.5 g/dL (31.0-37.0); MCV 97.6 fL (80.0-100.0); Macrocytosis Slight; Mean Platelet Volume 7.7; Monocytes # (A) 0.6 k/uL (0-1.0); Monocytes % (A) 7 %; Neutrophils # (A) 7.1 k/uL (1.3-7.7); Neutrophils % (A) 80 %; Platelet Count 412 k/uL (150-450); RBC 3.88 m/uL (4.30-5.90); RDW 16.9 % (11.5-15.5); WBC 8.9 k/uL (3.8-10.6)
[2022-12-25 08:14] LABS: ALT 22 U/L (4-49); AST 27 U/L (17-59); African American GFR (CKD) 31 (>60 ml/min/1.73 sqM); Albumin 3.1 g/dL (3.5-5.0); Alkaline Phosphatase 124 U/L (38-126); Anion Gap 11 mmol/L; Blood Urea Nitrogen 70 mg/dL (9-20); Calcium 8.2 mg/dL (8.4-10.2); Carbon Dioxide 26 mmol/L (22-30); Chloride 100 mmol/L (98-107); Glucose 93 mg/dL (74-99); Non-African American GFR(CKD) 27 (>60 ml/min/1.73 sqM); Potassium 4.4 mmol/L (3.5-5.1); Sodium 137 mmol/L (137-145); Total Bilirubin 1.1 mg/dL (0.2-1.3); Total Protein 7.1 g/dL (6.3-8.2)
[2022-12-25] MEDS: methIMAzole 5 MG TAB PO SCH ×3 (09:24→20:24)
[2022-12-25] MEDS: LIDOCAINE TRANSDERM SCH (09:25)
[2022-12-25] MEDS: MULTIVITAMINS, THERA 1 EACH TAB PO SCH (09:25)
[2022-12-25] MEDS: DIGOXIN 125 MCG TAB PO SCH (09:25)
[2022-12-25] MEDS: ASPIRIN 325 MG TAB PO SCH (09:25)
[2022-12-25] MEDS: PANTOPRAZOLE 40 MG TABLET PO SCH (09:25)
[2022-12-25] MEDS: METOPROLOL TARTRATE 12.5 MG TAB PO SCH (09:25)
[2022-12-25] MEDS: LORATADINE 10 MG TAB PO SCH (09:25)
[2022-12-25] MEDS: FERROUS SULFATE 325 MG TAB PO SCH ×2 (09:26→20:24)
[2022-12-25] MEDS: PREGABALIN 100 MG CAP PO SCH ×2 (09:26→16:07)
[2022-12-25] MEDS: SENNOSIDES 8.6 MG TAB PO SCH ×2 (09:26→20:24)
--- NOTE | 2022-12-25 10:01 | P.PN ---
Subjective Progress Note Date: 12/25/22 Principal diagnosis: Permanent atrial fibrillation This is another admission for this 67-year-old gentleman who is known to our service from before with a past medical history significant for permanent atrial fibrillation and cardiomyopathy as well as multiple comorbid conditions including change in mental status was brought from extended care facility to the hospital with atrial fibrillation with RVR. The patient is very poor historian and he does have significant change in mental status and he is lethargic. No indication that he was experiencing any chest pain or chest discomfort or shortness of breath or dizziness or lightheadedness. He was found to be in A. fib with RVR and subsequently was admitted to the hospital for further evaluation. He underwent an EKG which showed atrial fibrillation with diffuse nonspecific ST and T wave abnormalities and subsequently was started on Cardizem IV at 5 mg per hour. Currently he is not on any AV sabrina maria agents orally. I'm going to start him on metoprolol tartrate 12.5 mg by mouth twice a day. The patient does have multiple comorbid conditions including history of lower extremity is PAD and status post left jcedv-ueo-chkr amputation. Beside that he is on oral anticoagulation. Recent echo showed impaired LV function with EF between 30-35%. 12/25/2022 The patient was seen this morning. His heart rate has been under better control on the current dose of Cardizem which is 5 mg IV per hour and currently he is on metoprolol at 12.5 mg by mouth twice a day going to increase the dose of metoprolol and decrease Cardizem IV. Otherwise he remains stable and asymptomatic. His mentation has improved. On examination he does have significant change in mental status. He does have distant heart sounds with diminished breathing sounds bilaterally and left cktst-uvn-itli amputation Assessment Change in mental status Atrial fibrillation with controlled heart rate History of cardiomyopathy known from before History of left txeay-mtr-opmb amputation Plan Increase the dose of beta maria DC Cardizem IV Follow-up with the patient on when necessary case Objective - Vital Signs Vital signs: Vital Signs Temp 97.4 F L 12/25/22 04:00 Pulse 73 12/25/22 08:45 Resp 18 12/25/22 08:00 BP 105/65 12/25/22 08:00 Pulse Ox 95 12/25/22 08:44 FiO2 Intake & Output 12/24/22 12/25/22 12/25/22 18:59 06:59 18:59 Intake Total 180 122.833 Output Total 450 200 Balance -270 -77.167 Weight 86.183 kg Intake: Intake, IV Titration 122.833 Amount Diltiazem 125 mg In 122.833 Sodium Chloride 0.9% 100 ml @ 5 MG/HR 5 mls/hr IV .Q24H [facility] Rx#:[id number] Oral 180 Output: Urine 450 200 Other: Voiding Method External Catheter External Catheter - Labs CBC & Chem 7: 12/25/22 06:53 12/25/22 06:53 Labs: Abnormal Lab Results - Last 24 Hours (Table) 12/24/22 12/24/22 12/25/22 Range/Units 11:42 20:17 06:53 RBC 3.88 L (4.30-5.90) m/uL Hgb 11.5 L (13.0-17.5) gm/dL Hct 37.8 L (39.0-53.0) % MCHC 30.5 L (31.0-37.0) g/dL RDW 16.9 H (11.5-15.5) % Lymphocytes # 0.9 L (1.0-4.8) k/uL BUN (9-20) mg/dL Creatinine (0.66-1.25) mg/dL POC Glucose (mg/dL) 141 H 198 H (70-110) mg/dL Calcium (8.4-10.2) mg/dL Albumin (3.5-5.0) g/dL 12/25/22 Range/Units 06:53 RBC (4.30-5.90) m/uL Hgb (13.0-17.5) gm/dL Hct (39.0-53.0) % MCHC (31.0-37.0) g/dL RDW (11.5-15.5) % Lymphocytes # (1.0-4.8) k/uL BUN 70 H (9-20) mg/dL Creatinine 2.43 H (0.66-1.25) mg/dL POC Glucose (mg/dL) (70-110) mg/dL Calcium 8.2 L (8.4-10.2) mg/dL Albumin 3.1 L (3.5-5.0) g/dL
[2022-12-25] MEDS: DABIGATRAN 150 MG CAP PO SCH ×2 (10:08→16:07)
[2022-12-25 11:32] LABS: Glucose,Whole Blood 88 mg/dL (70-110)
[2022-12-25] MEDS: BUMETANIDE 1 MG TAB PO SCH (16:06)
[2022-12-25 16:20] LABS: Glucose,Whole Blood 63 mg/dL (70-110)
[2022-12-25 16:36] LABS: Glucose,Whole Blood 101 mg/dL (70-110)
[2022-12-25 19:53] LABS: Glucose,Whole Blood 160 mg/dL (70-110)
[2022-12-25] MEDS: INSULIN DETEMIR (LEVEMIR) 100 UNIT/ML SYR SQ SCH (20:08)
[2022-12-25] MEDS: METOPROLOL TARTRATE 25 MG TAB PO SCH (20:24)
[2022-12-25] MEDS: NORTRIPTYLINE 25 MG CAP PO SCH (20:24)
[2022-12-25] MEDS: ATORVASTATIN 80 MG TAB PO SCH (20:24)
[2022-12-25 21:39] LABS: Appearance,Urine Turbid (Clear); Bilirubin,Urine Negative (Negative); Blood,Urine Moderate (Negative); Color,Urine Dark Brown; Glucose,Urine (UA) Trace (Negative); Ketones,Urine Negative (Negative); Leukocyte Esterase,Urine Large (Negative); Nitrite,Urine Negative (Negative); PH, Urine 5.5 (5.0-8.0); Protein,Urine 3+ (Negative); Urobilinogen,Urine <2.0 mg/dL (<2.0)
[2022-12-25 21:40] LABS: Bacteria,Urine Many /hpf; RBC,Urine >182 /hpf (0-5); WBC,Urine >182 /hpf (0-5)
[2022-12-25 21:45] LABS: Specific Gravity,Urine 1.015 (1.001-1.035)
[2022-12-26] MEDS: NITROGLYCERIN OINT 1 INCH/GM PACKET TOPICAL SCH ×3 (05:16→17:21)
[2022-12-26 06:21] LABS: Glucose,Whole Blood 81 mg/dL (70-110)
[2022-12-26 08:00] LABS: Glucose,Whole Blood 80 mg/dL (70-110)
[2022-12-26] MEDS ORDERED: SODIUM CHLORIDE 0.9% 1,000 ML IV SCH (08:15)
[2022-12-26] MEDS ORDERED: PIPERACILLIN-TAZOBACTAM 3.375 GM in SODIUM CHLORIDE 0.9% 100 ML IVPB STA (08:17)
[2022-12-26 08:45] LABS: ABG Base Excess 0.6 mmol/L; ABG HCO3 25 mmol/L (21-25); ABG Oxygen Saturation 99.4 % (94-97); ABG PCO2 35 mmHg (35-45); ABG PH 7.45 (7.35-7.45); ABG PO2 137 mmHg (83-108); ABG TCO2 26 mmol/L (19-24); Allen Test Performed? Yes
[2022-12-26 08:54] LABS: Anisocytosis Slight; Basophils % (A) 0 %; Eosinophils # (A) 0.1 k/uL (0-0.7); Eosinophils % (A) 2 %; HCT 40.3 % (39.0-53.0); HGB 12.3 gm/dL (13.0-17.5); Hypochromasia Moderate; Lymphocytes % (A) 12 %; MCH 29.8 pg (25.0-35.0); MCHC 30.4 g/dL (31.0-37.0); Macrocytosis Slight; Mean Platelet Volume 8.3; Monocytes # (A) 0.4 k/uL (0-1.0); Monocytes % (A) 5 %; Neutrophils # (A) 6.7 k/uL (1.3-7.7); Neutrophils % (A) 80 %; Platelet Count 411 k/uL (150-450); RBC 4.12 m/uL (4.30-5.90); RDW 16.7 % (11.5-15.5); WBC 8.4 k/uL (3.8-10.6)
[2022-12-26 09:12] LABS: ALT 20 U/L (4-49); AST 25 U/L (17-59); African American GFR (CKD) 31 (>60 ml/min/1.73 sqM); Albumin 3.2 g/dL (3.5-5.0); Alkaline Phosphatase 123 U/L (38-126); Anion Gap 10 mmol/L; Blood Urea Nitrogen 80 mg/dL (9-20); Calcium 8.4 mg/dL (8.4-10.2); Carbon Dioxide 27 mmol/L (22-30); Chloride 100 mmol/L (98-107); Glucose 85 mg/dL (74-99); Non-African American GFR(CKD) 27 (>60 ml/min/1.73 sqM); Potassium 4.8 mmol/L (3.5-5.1); Sodium 137 mmol/L (137-145); Total Protein 7.4 g/dL (6.3-8.2)
[2022-12-26] MEDS: PREGABALIN 100 MG CAP PO SCH (09:17)
[2022-12-26] MEDS: PANTOPRAZOLE 40 MG TABLET PO SCH (09:17)
[2022-12-26] MEDS: ASPIRIN 325 MG TAB PO SCH (09:18)
[2022-12-26] MEDS: LORATADINE 10 MG TAB PO SCH (09:18)
[2022-12-26] MEDS: METOPROLOL TARTRATE 25 MG TAB PO SCH ×2 (09:18→21:32)
[2022-12-26] MEDS: SENNOSIDES 8.6 MG TAB PO SCH ×2 (09:18→21:32)
[2022-12-26] MEDS: MULTIVITAMINS, THERA 1 EACH TAB PO SCH (09:18)
[2022-12-26] MEDS: FERROUS SULFATE 325 MG TAB PO SCH ×2 (09:18→21:32)
[2022-12-26] MEDS: DIGOXIN 125 MCG TAB PO SCH (09:18)
[2022-12-26] MEDS: methIMAzole 5 MG TAB PO SCH ×3 (09:19→21:34)
[2022-12-26] MEDS: DABIGATRAN 150 MG CAP PO SCH ×2 (09:19→16:38)
[2022-12-26] MEDS: LIDOCAINE TRANSDERM SCH (09:20)
--- NOTE | 2022-12-26 10:09 | CT ---
EXAMINATION TYPE: CT chest wo con DATE OF EXAM: 12/26/2022 COMPARISON: 11/25/2022 HISTORY: SOB CT DLP: [address] of the chest was performed with lung and mediastinal window settings submitted. The la ck of contrast limits evaluation of the vascular, mediastinal and parenchymal structures including th e upper abdomen. LUNGS: Pulmonary effusions have improved significantly bilaterally. There is right basilar atelectasi s or infiltrates with air bronchograms seen also appearing to be improved. There is improved aeration at the left lung base. Paraseptal emphysematous changes moderate in degree persists. MEDIASTINUM/DINAH: Thoracic aorta is of normal caliber with limited evaluation given lack of contrast . The heart is not enlarged. No evidence for mediastinal mass. No lymph nodes greater than 1cm. UPPER ABDOMEN: Small calcified gallstone noted. OTHER: No significant other abnormality. IMPRESSION: 1. Overall improvement since prior examination as discussed above. Resolution of pleural effusions a nd interstitial edema. Also much improved aeration at the lung bases with resolution of left basilar infiltrate. There continues to be right basilar atelectasis or residual infiltrate at this time.
[2022-12-26 11:27] LABS: Glucose,Whole Blood 117 mg/dL (70-110)
[2022-12-26 12:21] LABS: Appearance,Urine Turbid (Clear); Bilirubin,Urine Negative (Negative); Blood,Urine Small (Negative); Glucose,Urine (UA) Negative (Negative); Ketones,Urine Negative (Negative); Leukocyte Esterase,Urine Large (Negative); Nitrite,Urine Negative (Negative); PH, Urine 5.5 (5.0-8.0); Protein,Urine 2+ (Negative); RBC,Urine >182 /hpf (0-5); Urobilinogen,Urine <2.0 mg/dL (<2.0); WBC,Urine >182 /hpf (0-5)
[2022-12-26 12:24] LABS: Color,Urine Light Brown; Specific Gravity,Urine 1.015 (1.001-1.035)
--- NOTE | 2022-12-26 12:41 | P.NPCON ---
History of Present Illness - Reason for Consult acute renal failure - History of Present Illness Patient is a 67-year-old male with history of COPD, CHF, cardiomyopathy with ejection fraction of 30%, type 2 diabetes who was admitted to the hospital from [facility] with mental status changes. Serum creatinine was 2.4 mg/dL. It appears that patient has not been voiding much. He is currently not able to provide any history however patient is noted to have occasional jerky movements. Blood pressure was low with systolic 98-10 5 mmHg. Patient was maintained on Bumex prior to admission. Review of Systems As per HPI Past Medical History Past Medical History: Atrial Fibrillation, Asthma, COPD, CVA/TIA, Diabetes Mellitus, Deep Vein Thrombosis (DVT), GERD/Reflux, Hyperlipidemia, Hypertension, Neurologic Disorder, Osteoarthritis (OA), Pneumonia, Pulmonary Embolus (PE), Skin Disorder, Vascular Disorder Additional Past Medical History / Comment(s): Pt admitted to [facility] on 11/20/20 with hyperkalemia, hyperglycemia, uncontrolled diabetes. Other hx: Lupus anticoagulant, DVTs bilateral legs, PEs bilateral lungs in , pt has zina filter, L AKA/wheelchair bound, NIDDM type II, neuropathy bilateral hands, wound care patient for buttock wound, now healed, TIAs, pneumothorax, past migraines, chronic low back pain, R leg edema at times, varicosities. History of Any Multi-Drug Resistant Organisms: MRSA Date of last positivie culture/infection: 11/02/22 MDRO Source:: Blood Past Surgical History: Adenoidectomy, Appendectomy, Tonsillectomy Additional Past Surgical History / Comment(s): Zina filter, stents in vessels "in pelvic area", total L hip arthroplasty, vein strippings, colonoscopy. left leg amputation Past Anesthesia/Blood Transfusion Reactions: No Reported Reaction Additional Past Anesthesia/Blood Transfusion Reaction / Comment(s): Pt has received blood in past without reaction. Past Psychological History: No Psychological Hx Reported Additional Psychological History / Comment(s): Pt currently living in hotels, He has a glucometer. He has a nebulizer. Pt has prosthetic, states it is being worked on. Smoking Status: Former smoker Past Alcohol Use History: None Reported Additional Past Alcohol Use History / Comment(s): Pt startes smoking in 1969 and is a ppd smoker. Past Drug Use History: None Reported - Past Family History Mother Family Medical History: Coronary Artery Disease (CAD), Myocardial Infarction ([place]), Vascular Disorder Additional Family Medical History / Comment(s): heart disease, peripheral vascular disease. Father Family Medical History: Diabetes Mellitus, Renal Disease Medications and Allergies Home Medications Medication Instructions Recorded Confirmed Type Atorvastatin [Lipitor] 80 mg PO HS 08/27/22 12/23/22 History Loratadine 10 mg PO DAILY 08/27/22 12/23/22 History Dabigatran [Pradaxa] 150 mg PO BID@0800,1600 10/28/22 12/23/22 History Ferrous Sulfate [Iron (65 MG 325 mg PO BID 10/28/22 12/23/22 History Elemental)] Omeprazole [PriLOSEC] 20 mg PO DAILY 10/28/22 12/23/22 History Sennosides [Senokot] 8.6 mg PO BID 10/28/22 12/23/22 History Bumetanide [BUMEX] 1 mg PO DAILY@1600 tab 11/09/22 12/23/22 Rx Ipratropium-Albuterol Nebulize 3 ml INHALATION RT-Q6H PRN each 11/09/22 12/23/22 Rx [Duoneb 0.5 mg-3 mg/3 ml Soln] methIMAzole [Tapazole] 5 mg PO TID tab 11/09/22 12/23/22 Rx Acetaminophen Tab [Tylenol] 650 mg PO Q6H PRN 11/20/22 12/23/22 History Multivitamins, Thera [Multivitamin 1 tab PO DAILY@0800 11/20/22 12/23/22 History (formulary)] Nortriptyline HCl 75 mg PO HS 11/20/22 12/23/22 History Digoxin [Lanoxin] 125 mcg PO DAILY tab 11/28/22 12/23/22 Rx HYDROcodone/APAP 7.5-325MG [[place] 1 tab PO Q6HR PRN 12/05/22 12/23/22 History 7.5-325] Insulin Glargine,Hum.rec.anlog 14 units SQ HS 12/05/22 12/23/22 History [Lantus Solostar Pen] Insulin Lispro [humaLOG Kwikpen] See Protocol SQ ACHS@07,11,16,20 12/05/22 12/23/22 History Lidocaine [Aspercreme Patch] 1 patch TRANSDERM DAILY 12/05/22 12/23/22 History Magnesium Hydroxide [Milk of 2,400 mg PO DAILY PRN 12/05/22 12/23/22 History Magnesia] Pregabalin [Lyrica] 300 mg PO BID@0800,1600 12/23/22 12/23/22 History Allergies Allergy/AdvReac Type Severity Reaction Status Date / Time baclofen Allergy Unknown Verified 12/23/22 12:58 Iodinated Contrast Media Allergy Unknown Verified 12/23/22 12:58 sulfamethoxazole Allergy Unknown Verified 12/23/22 12:58 [From Bactrim] trimethoprim [From Bactrim] Allergy Unknown Verified 12/23/22 12:58 apixaban [From Eliquis] AdvReac "felt Verified 12/23/22 12:58 funny" Physical Exam Vitals: Vital Signs Temp Pulse Resp BP Pulse Ox 12/26/22 11:56 97.1 F L 74 20 98/61 95 12/26/22 10:36 72 12/26/22 07:50 98.2 F 72 18 111/65 95 12/26/22 04:00 98.0 F 71 18 102/60 97 12/26/22 00:00 98.5 F 83 18 100/58 100 12/25/22 20:00 98.0 F 73 18 120/65 98 12/25/22 16:10 97.6 F 74 18 113/61 94 L 12/25/22 14:54 68 Intake and Output 12/25/22 12/26/22 12/26/22 22:59 06:59 14:59 Intake Total 420 Output Total 50 300 2499 Balance 370 -300 -2499 Intake: IV 20 Invasive Line 1 10 Invasive Line 2 10 Oral 400 Output: Urine 50 300 1500 Post Void Residual 999 Other: Voiding Method External Catheter External Catheter External Catheter Patient is sleeping he is arousable but unable to provide any history Examination of the heart S1 and S2 Examination of the lungs bilateral breath sounds are heard Abdomen is soft, tenderness and discomfort noted suprapubic. Examination lower extremities shows no evidence of edema Occasional jerky movements noted Results - Lab Results Most recent lab results ABG pH 7.45 (7.35-7.45) 12/26/22 08:39 ABG pCO2 35 mmHg (35-45) 12/26/22 08:39 ABG pO2 137 mmHg (83-108) H 12/26/22 08:39 ABG HCO3 25 mmol/L (21-25) 12/26/22 08:39 ABG O2 Saturation 99.4 % (94-97) H 12/26/22 08:39 Calcium 8.4 mg/dL (8.4-10.2) 12/26/22 08:25 Magnesium 2.1 mg/dL (1.6-2.3) 12/23/22 10:33 12/26/22 08:25 12/26/22 08:25 Assessment and Plan Assessment: 1. Acute kidney injury rule out obstructive uropathy and urine retention. Check bladder scan. Continue with IV fluids Check urine analysis Check ultrasound of the kidneys Hold diuretics for now. 2. Mental status changes most likely related to underlying sepsis/UTI 3. A. fib with RVR, heart rate controlled now 4. Hypotension, hypovolemic and from underlying infection 5. Pyuria rule out UTI, maintained on antibiotics Plan: Check bladder scan and place [place] if more than 400 mL of urine noted Continue IV fluids Hold diuretics Continue IV antibiotics Follow-up and urine cultures Repeat labs in a.m. Hold Cierra Thank you for the consultation. We will continue to follow the patient with you during his hospitalization.
--- NOTE | 2022-12-26 15:45 | US ---
EXAMINATION TYPE: US kidneys/renal and bladder DATE OF EXAM: 12/26/2022 COMPARISON: CLINICAL INDICATION: Male, 67 years old with history of mustapha; Abnormal labs. Patient has bladder fole y with urine a milky light brown color. EXAM MEASUREMENTS: Right Kidney: 11.0 x 4.6 x 4.4 cm Left Kidney: 10.4 x 4.3 x 6.2 cm Right Kidney: Limited visualization medial right kidney Left Kidney: Possible mild hydronephrosis Bladder: Montero seen. No urine visualized within bladder, unable to determine if there are any masses , wall thickening or debris Bilateral Jets not seen due to montero Incidental finding: Enlarged gallbladder = 10.5 cm with internal echoes and wall thickening = 4.8 mm. No nephrolithiasis is seen. No masses are identified. IMPRESSION: 1. Borderline to mild left-sided hydronephrosis. 2. Gallbladder hydrops with wall thickening and internal echoes. Correlate for acute cholecystitis.
[2022-12-26] MEDS ORDERED: MAGNESIUM HYDROXIDE 2,400 MG/30 ML CUP PO PRN (15:54)
[2022-12-26] MEDS: PIPERACILLIN-TAZOBACTAM 3.375 GM in SODIUM CHLORIDE 0.9% 100 ML IVPB SCH (16:38)
[2022-12-26] MEDS: SODIUM CHLORIDE 0.9% 1,000 ML IV SCH (16:44)
[2022-12-26 17:54] LABS: Glucose,Whole Blood 157 mg/dL (70-110)
--- NOTE | 2022-12-26 19:36 | CT ---
EXAMINATION TYPE: CT brain wo con CT DLP: 1119.4 mGycm, Automated exposure control for dose reduction was used. DATE OF EXAM: 12/26/2022 6:36 PM COMPARISON: 11/20/2022. CLINICAL INDICATION:Male, 67 years old with history of AMS, AMS TECHNIQUE: Brain: Axial CT images of the brain were obtained with coronal and sagittal reformats created and rev iewed. Contrast used: None. Oral contrast used: None. FINDINGS: Brain: Extra-axial spaces: No abnormal extra-axial fluid collections. Ventricular system: Dilatation in proportion to cerebral atrophy. Cerebral parenchyma: Cerebral atrophy. No acute intraparenchymal hemorrhage or mass effect. The davis -white junction is well differentiated. Scattered hypoattenuating areas are seen within the white mat ter. Cerebellum: Unremarkable. Mass effect: No evidence of midline shift. Intracranial vasculature: unremarkable Soft tissues: Normal. Calvarium/osseous structures: No depressed skull fracture. Paranasal sinuses and mastoid air cells: Mild scattered paranasal sinus disease. Visualized orbits: Bilateral aphakia IMPRESSION: 1. No acute intracranial process. 2. Nonspecific white matter changes, likely secondary to chronic small vessel ischemic disease.
[2022-12-26 20:32] LABS: Glucose,Whole Blood 148 mg/dL (70-110)
[2022-12-26] MEDS: NORTRIPTYLINE 25 MG CAP PO SCH (21:32)
[2022-12-26] MEDS: INSULIN DETEMIR (LEVEMIR) 100 UNIT/ML SYR SQ SCH (21:32)
[2022-12-26] MEDS: ATORVASTATIN 80 MG TAB PO SCH (21:32)
--- NOTE | 2022-12-26 22:11 | P.CONS ---
History of Present Illness - Reason for Consult Consult date: 12/26/22 UTI Requesting physician: Quintin Bhakta - Chief Complaint weakness x few days - History of Present Illness Patient is a 67-year-old male with the multiple comorbidities including atrial fibrillation also have a history of diabetes mellitus diabetic foot infection requiring left [id number] amputation recent mission to the hospital treated for MRSA bacteremia patient is a [facility] resident patient was sent to the ER 3 days ago for evaluation of tachycardia patient was noticed to have heart rate of 122 to 117 bpm patient on presentation to the hospital was afebrile and no fever has been recorded during this hospital stay patient did have elevated white count of 11.7 on admission with a left shift however the white count subsequently has normalized patient did have elevated BUN and creatinine did have elevated troponin level enzymes are normal patient did have a Gamble catheter placement for retention and was noticed to have significantly cloudy urine concerning for UTI patient was started on Zosyn infectious was consulted for further management of antibiotic therapy most of the information has been obtained from review the chart talking nursing staff as the patient is currently lethargic and did not provide any history, the patient still have the PICC line to the left upper extremity which was supposed to be removed after completion of his antibiotic therapy Review of Systems Positive point and negatives has been mentioned in the HPI, complete review of systems was performed and all other systems are negative Past Medical History Past Medical History: Atrial Fibrillation, Asthma, COPD, CVA/TIA, Diabetes Mellitus, Deep Vein Thrombosis (DVT), GERD/Reflux, Hyperlipidemia, Hypertension, Neurologic Disorder, Osteoarthritis (OA), Pneumonia, Pulmonary Embolus (PE), Skin Disorder, Vascular Disorder Additional Past Medical History / Comment(s): Pt admitted to [facility] on 11/20/20 with hyperkalemia, hyperglycemia, uncontrolled diabetes. Other hx: Lupus anticoagulant, DVTs bilateral legs, PEs bilateral lungs in , pt has zina filter, L AKA/wheelchair bound, NIDDM type II, neuropathy bilateral hands, wound care patient for buttock wound, now healed, TIAs, pneumothorax, past migraines, chronic low back pain, R leg edema at times, varicosities. History of Any Multi-Drug Resistant Organisms: MRSA Year Discovered:: 11/02/22 MDRO Source:: Blood Past Surgical History: Adenoidectomy, Appendectomy, Tonsillectomy Additional Past Surgical History / Comment(s): [employer] filter, stents in vessels "in pelvic area", total L hip arthroplasty, vein strippings, colonoscopy. left leg amputation Past Anesthesia/Blood Transfusion Reactions: No Reported Reaction Additional Past Anesthesia/Blood Transfusion Reaction / Comm: Pt has received blood in past without reaction. Past Psychological History: No Psychological Hx Reported Additional Psychological History / Comment(s): Pt currently living in hotels, He has a glucometer. He has a nebulizer. Pt has prosthetic, states it is being worked on. Smoking Status: Former smoker Past Alcohol Use History: None Reported Additional Past Alcohol Use History / Comment(s): Pt startes smoking in 1969 and is a ppd smoker. Past Drug Use History: None Reported - Past Family History Mother Family Medical History: Coronary Artery Disease (CAD), Myocardial Infarction ([place]), Vascular Disorder Additional Family Medical History / Comment(s): heart disease, peripheral vascular disease. Father Family Medical History: Diabetes Mellitus, Renal Disease Medications and Allergies Home Medications Medication Instructions Recorded Confirmed Type Atorvastatin [Lipitor] 80 mg PO HS 08/27/22 12/23/22 History Loratadine 10 mg PO DAILY 08/27/22 12/23/22 History Dabigatran [Pradaxa] 150 mg PO BID@0800,1600 10/28/22 12/23/22 History Ferrous Sulfate [Iron (65 MG 325 mg PO BID 10/28/22 12/23/22 History Elemental)] Omeprazole [PriLOSEC] 20 mg PO DAILY 10/28/22 12/23/22 History Sennosides [Senokot] 8.6 mg PO BID 10/28/22 12/23/22 History Bumetanide [BUMEX] 1 mg PO DAILY@1600 tab 11/09/22 12/23/22 Rx Ipratropium-Albuterol Nebulize 3 ml INHALATION RT-Q6H PRN each 11/09/22 12/23/22 Rx [Duoneb 0.5 mg-3 mg/3 ml Soln] methIMAzole [Tapazole] 5 mg PO TID tab 11/09/22 12/23/22 Rx Acetaminophen Tab [Tylenol] 650 mg PO Q6H PRN 11/20/22 12/23/22 History Multivitamins, Thera [Multivitamin 1 tab PO DAILY@0800 11/20/22 12/23/22 History (formulary)] Nortriptyline HCl 75 mg PO HS 11/20/22 12/23/22 History Digoxin [Lanoxin] 125 mcg PO DAILY tab 11/28/22 12/23/22 Rx HYDROcodone/APAP 7.5-325MG [[place] 1 tab PO Q6HR PRN 12/05/22 12/23/22 History 7.5-325] Insulin Glargine,Hum.rec.anlog 14 units SQ HS 12/05/22 12/23/22 History [Lantus Solostar Pen] Insulin Lispro [humaLOG Kwikpen] See Protocol SQ ACHS@07,11,16,20 12/05/22 12/23/22 History Lidocaine [Aspercreme Patch] 1 patch TRANSDERM DAILY 12/05/22 12/23/22 History Magnesium Hydroxide [Milk of 2,400 mg PO DAILY PRN 12/05/22 12/23/22 History Magnesia] Pregabalin [Lyrica] 300 mg PO BID@0800,1600 12/23/22 12/23/22 History Aspirin 325 mg PO DAILY tab 01/04/23 Rx Ciprofloxacin HCl [Cipro] 500 mg PO BID tab 01/04/23 Rx Isosorbide Mononitrate ER [Imdur] 30 mg PO DAILY tab 01/04/23 Rx Megestrol [Megace] 80 mg PO DAILY tab 01/04/23 Rx Metoprolol Tartrate [Lopressor] 25 mg PO BID tab 01/04/23 Rx Nitroglycerin Sl Tabs [Nitrostat] 0.4 mg SUBLINGUAL Q5M PRN tab 01/04/23 Rx Tamsulosin [Flomax] 0.4 mg PO PC-BRKFST cap 01/04/23 Rx Allergies Allergy/AdvReac Type Severity Reaction Status Date / Time baclofen Allergy Unknown Verified 12/23/22 12:58 Iodinated Contrast Media Allergy Unknown Verified 12/23/22 12:58 sulfamethoxazole Allergy Unknown Verified 12/23/22 12:58 [From Bactrim] trimethoprim [From Bactrim] Allergy Unknown Verified 12/23/22 12:58 apixaban [From Eliquis] AdvReac "felt Verified 12/23/22 12:58 funny" Physical Exam Vitals: Vital Signs Temp Pulse Resp BP Pulse Ox 12/26/22 10:36 72 12/26/22 07:50 98.2 F 72 18 111/65 95 12/26/22 04:00 98.0 F 71 18 102/60 97 12/26/22 00:00 98.5 F 83 18 100/58 100 12/25/22 20:00 98.0 F 73 18 120/65 98 12/25/22 16:10 97.6 F 74 18 113/61 94 L 12/25/22 14:54 68 12/25/22 11:15 64 18 91 L Intake and Output 12/25/22 12/26/22 12/26/22 22:59 06:59 14:59 Intake Total 420 Output Total 50 300 Balance 370 -300 Intake: IV 20 Invasive Line 1 10 Invasive Line 2 10 Oral 400 Output: Urine 50 300 Other: Voiding Method External Catheter External Catheter External Catheter GENERAL DESCRIPTION: Elderly male lying in bed, no distress. No tachypnea or accessory muscle of respiration use. HEENT: Shows Pallor , no scleral icterus. Oral mucous membrane is dry. NECK: Trachea central, no thyromegaly. LUNGS: Unlabored breathing. Clear to auscultation anteriorly. No wheeze or crackle. HEART: S1, S2, regular rate and rhythm. No loud murmur ABDOMEN: Soft, no tenderness , guarding or rigidity, no organomegaly EXTREMITIES: 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 no swelling no redness or drainage SKIN: No rash, no masses palpable. NEUROLOGICAL: The patient is lethargic orientation could not be determined. Results CBC & Chem 7: 01/04/23 07:11 01/04/23 07:11 Labs: Abnormal Lab Results - Last 24 Hours (Table) 12/25/22 12/25/22 12/25/22 Range/Units 16:15 19:48 21:00 RBC (4.30-5.90) m/uL Hgb (13.0-17.5) gm/dL MCHC (31.0-37.0) g/dL RDW (11.5-15.5) % D-Dimer (<0.60) mg/L FEU ABG pO2 (83-108) mmHg ABG Total CO2 (19-24) mmol/L ABG O2 Saturation (94-97) % BUN (9-20) mg/dL Creatinine (0.66-1.25) mg/dL POC Glucose (mg/dL) 63 L 160 H (70-110) mg/dL Albumin (3.5-5.0) g/dL Urine Protein 3+ H (Negative) Urine Glucose (UA) Trace H (Negative) Urine Blood Moderate H (Negative) Ur Leukocyte Esterase Large H (Negative) Urine RBC >182 H (0-5) /hpf Urine WBC >182 H (0-5) /hpf Urine WBC Clumps Many H (None) /hpf Urine Bacteria Many H (None) /hpf 12/26/22 12/26/22 12/26/22 Range/Units 08:25 08:25 08:25 RBC 4.12 L (4.30-5.90) m/uL Hgb 12.3 L (13.0-17.5) gm/dL MCHC 30.4 L (31.0-37.0) g/dL RDW 16.7 H (11.5-15.5) % D-Dimer 1.91 H (<0.60) mg/L FEU ABG pO2 (83-108) mmHg ABG Total CO2 (19-24) mmol/L ABG O2 Saturation (94-97) % BUN 80 H (9-20) mg/dL Creatinine 2.44 H (0.66-1.25) mg/dL POC Glucose (mg/dL) (70-110) mg/dL Albumin 3.2 L (3.5-5.0) g/dL Urine Protein (Negative) Urine Glucose (UA) (Negative) Urine Blood (Negative) Ur Leukocyte Esterase (Negative) Urine RBC (0-5) /hpf Urine WBC (0-5) /hpf Urine WBC Clumps (None) /hpf Urine Bacteria (None) /hpf 12/26/22 Range/Units 08:39 RBC (4.30-5.90) m/uL Hgb (13.0-17.5) gm/dL MCHC (31.0-37.0) g/dL RDW (11.5-15.5) % D-Dimer (<0.60) mg/L FEU ABG pO2 137 H (83-108) mmHg ABG Total CO2 26 H (19-24) mmol/L ABG O2 Saturation 99.4 H (94-97) % BUN (9-20) mg/dL Creatinine (0.66-1.25) mg/dL POC Glucose (mg/dL) (70-110) mg/dL Albumin (3.5-5.0) g/dL Urine Protein (Negative) Urine Glucose (UA) (Negative) Urine Blood (Negative) Ur Leukocyte Esterase (Negative) Urine RBC (0-5) /hpf Urine WBC (0-5) /hpf Urine WBC Clumps (None) /hpf Urine Bacteria (None) /hpf Assessment and Plan (1) Urinary tract infection Status: Acute Code(s): N39.0 - URINARY TRACT INFECTION, SITE NOT SPECIFIED SNOMED Code(s): 16030455 Plan: 1patient with significantly positive UA urinary retention mental status changes concerning for possible symptomatic bradycardia likely from enteric gram-negative pathogen 2-patient also have a PICC line that was supposed to be discontinued after completion of antibiotic therapy 3-we will obtain UA from the new catheter that has been inserted and also obtain blood cultures from the PICC line 4-check inflammatory markers 5-continue Zosyn while waiting for the culture to finalize We will follow on clinical condition and cultures to further adjust medication if needed Thank you for this consultation we will follow the patient along with you Time with Patient: Greater than 30
[2022-12-27] MEDS: PIPERACILLIN-TAZOBACTAM 3.375 GM in SODIUM CHLORIDE 0.9% 100 ML IVPB SCH ×3 (00:04→16:15)
[2022-12-27] MEDS: NITROGLYCERIN OINT 1 INCH/GM PACKET TOPICAL SCH ×5 (00:04→22:09)
[2022-12-27] MEDS: SODIUM CHLORIDE 0.9% 1,000 ML IV SCH ×2 (00:05→16:14)
--- NOTE | 2022-12-27 01:58 | PN ---
PROGRESS NOTE SUBJECTIVE: This is a 67-year-old white male who is more altered today. His hemoglobin is 12.3, white count 8.4. D-dimer is 1.91, pCO2 is 35, CO2 is 137, BUN is 80, creatinine is 2.44. We gave him some fluids for increased renal insufficiency. We will treat him for UTI with Zosyn, wait for urine culture. Get renal physician consult for creatinine of 2.4. Started on IV Zosyn for UTI. Prognosis guarded. This are multiple medical problems. He has over 182 white cells in his UA, large leukocyte esterase. OBJECTIVE: CARDIOVASCULAR: S1, S2. LUNGS: Clear. GI: Soft. HEMATOLOGY: Negative for Homans. PSYCH: Fair mood and affect. PLAN: Continue to treat urinary tract infection. Consult Dr. Ordoñez. Increased renal insufficiency, given fluids. Consult renal doctor, pulmonary with elevated D-dimer. Get pulmonary consult. Prognosis guarded. MMODL / IJN: [id number] /
[2022-12-27 05:59] LABS: Glucose,Whole Blood 231 mg/dL (70-110)
[2022-12-27 08:14] LABS: Anisocytosis Slight; Basophils % (A) 0 %; Eosinophils # (A) 0.2 k/uL (0-0.7); Eosinophils % (A) 2 %; HCT 39.8 % (39.0-53.0); HGB 12.3 gm/dL (13.0-17.5); Hypochromasia Moderate; Lymphocytes # (A) 1.2 k/uL (1.0-4.8); Lymphocytes % (A) 13 %; MCH 30.2 pg (25.0-35.0); MCHC 30.8 g/dL (31.0-37.0); MCV 98.1 fL (80.0-100.0); Macrocytosis Slight; Mean Platelet Volume 8.1; Monocytes # (A) 0.5 k/uL (0-1.0); Monocytes % (A) 5 %; Neutrophils # (A) 7.4 k/uL (1.3-7.7); Neutrophils % (A) 78 %; Platelet Count 396 k/uL (150-450); RBC 4.06 m/uL (4.30-5.90); RDW 16.7 % (11.5-15.5); WBC 9.4 k/uL (3.8-10.6)
[2022-12-27 08:40] LABS: ALT 17 U/L (4-49); AST 21 U/L (17-59); African American GFR (CKD) 38 (>60 ml/min/1.73 sqM); Albumin 2.8 g/dL (3.5-5.0); Alkaline Phosphatase 120 U/L (38-126); Anion Gap 11 mmol/L; Blood Urea Nitrogen 69 mg/dL (9-20); Carbon Dioxide 23 mmol/L (22-30); Chloride 105 mmol/L (98-107); Glucose 112 mg/dL (74-99); Non-African American GFR(CKD) 32 (>60 ml/min/1.73 sqM); Potassium 4.4 mmol/L (3.5-5.1); Sodium 139 mmol/L (137-145); Total Bilirubin 0.9 mg/dL (0.2-1.3); Total Protein 6.7 g/dL (6.3-8.2)
[2022-12-27] MEDS: MULTIVITAMINS, THERA 1 EACH TAB PO SCH (09:23)
[2022-12-27] MEDS: ASPIRIN 325 MG TAB PO SCH (09:23)
[2022-12-27] MEDS: DIGOXIN 125 MCG TAB PO SCH (09:23)
[2022-12-27] MEDS: SENNOSIDES 8.6 MG TAB PO SCH ×2 (09:23→21:29)
[2022-12-27] MEDS: METOPROLOL TARTRATE 25 MG TAB PO SCH ×2 (09:23→21:29)
[2022-12-27] MEDS: LORATADINE 10 MG TAB PO SCH (09:23)
[2022-12-27] MEDS: DABIGATRAN 150 MG CAP PO SCH ×3 (09:23→16:20)
[2022-12-27] MEDS: FERROUS SULFATE 325 MG TAB PO SCH ×2 (09:23→21:29)
[2022-12-27] MEDS: PANTOPRAZOLE 40 MG TABLET PO SCH (09:23)
[2022-12-27] MEDS: LIDOCAINE TRANSDERM SCH (09:24)
[2022-12-27] MEDS: methIMAzole 5 MG TAB PO SCH ×4 (09:24→21:29)
[2022-12-27 12:13] LABS: Glucose,Whole Blood 142 mg/dL (70-110)
--- NOTE | 2022-12-27 12:53 | P.CNNES ---
History of Present Illness Consult date: 12/27/22 Requesting physician: Quintin Bhakta Reason for Consult: ams History of Present Illness: This is a 67-year-old gentleman with history of atrial fibrillation, cardiomyopathy, TIA, pulmonary embolism, DVT, diabetes mellitus, hypertension who presented t our facility because of tachycardia per cardiology's request. History was obtained from medical record that. It seems the patient has altered mental status. During his hospital stay patient was found to have the urinary tract infection, worsening of the kidney function. According to patient nurse he has some tremors yesterday but did not appears seizures and has resolved. ID is on board and treating good day UTI. Patient has CT of the brain which was negative for any acute subacute stroke or any bleed. Also cardiology is on board treating atrial fibrillation have placed the patient on Pradaxa, digoxin. Some of the workup during this hospital visit consisted of: Again the urinalysis twice during this hospital visit on [phone] suggestive of underlying urinary tract infection. Patient's kidney function was trended up and now slightly trending down CT of the head reported as no acute intracranial process. Nonspecific white matter changes, likely [employer] due to chronic small vessel ischemic disease. I personally reviewed the CT and agree with the report. Of note patient had TSH level done on 2022. The TSH was normal but the the free T4 was elevated. Review of Systems Review of systems Limited but the per positive and negative as per HPI Past Medical History Past Medical History: Atrial Fibrillation, Asthma, COPD, CVA/TIA, Diabetes Mellitus, Deep Vein Thrombosis (DVT), GERD/Reflux, Hyperlipidemia, Hypertension, Neurologic Disorder, Osteoarthritis (OA), Pneumonia, Pulmonary Embolus (PE), Skin Disorder, Vascular Disorder Additional Past Medical History / Comment(s): Pt admitted to [facility] on 11/20/20 with hyperkalemia, hyperglycemia, uncontrolled diabetes. Other hx: Lupus anticoagulant, DVTs bilateral legs, PEs bilateral lungs in 1980s, pt has zina filter, L AKA/wheelchair bound, NIDDM type II, neuropathy bilateral hands, wound care patient for buttock wound, now healed, TIAs, pneumothorax, past migraines, chronic low back pain, R leg edema at times, varicosities. History of Any Multi-Drug Resistant Organisms: MRSA Date of last positivie culture/infection: 11/02/22 MDRO Source:: Blood Past Surgical History: Adenoidectomy, Appendectomy, Tonsillectomy Additional Past Surgical History / Comment(s): 1980s [place] filter, stents in vessels "in pelvic area", total L hip arthroplasty, vein strippings, colonoscopy. left leg amputation Past Anesthesia/Blood Transfusion Reactions: No Reported Reaction Additional Past Anesthesia/Blood Transfusion Reaction / Comment(s): Pt has received blood in past without reaction. Past Psychological History: No Psychological Hx Reported Additional Psychological History / Comment(s): Pt currently living in hotels, He has a glucometer. He has a nebulizer. Pt has prosthetic, states it is being worked on. Smoking Status: Former smoker Past Alcohol Use History: None Reported Additional Past Alcohol Use History / Comment(s): Pt startes smoking in 1969 and is a ppd smoker. Past Drug Use History: None Reported - Past Family History Mother Family Medical History: Coronary Artery Disease (CAD), Myocardial Infarction (NE), Vascular Disorder Additional Family Medical History / Comment(s): heart disease, peripheral vascular disease. Father Family Medical History: Diabetes Mellitus, Renal Disease Medications and Allergies Home Medications Medication Instructions Recorded Confirmed Type Atorvastatin [Lipitor] 80 mg PO HS 08/27/22 12/23/22 History Loratadine 10 mg PO DAILY 08/27/22 12/23/22 History Dabigatran [Pradaxa] 150 mg PO BID@0800,1600 10/28/22 12/23/22 History Ferrous Sulfate [Iron (65 MG 325 mg PO BID 10/28/22 12/23/22 History Elemental)] Omeprazole [PriLOSEC] 20 mg PO DAILY 10/28/22 12/23/22 History Sennosides [Senokot] 8.6 mg PO BID 10/28/22 12/23/22 History Bumetanide [BUMEX] 1 mg PO DAILY@1600 tab 11/09/22 12/23/22 Rx Ipratropium-Albuterol Nebulize 3 ml INHALATION RT-Q6H PRN each 11/09/22 12/23/22 Rx [Duoneb 0.5 mg-3 mg/3 ml Soln] methIMAzole [Tapazole] 5 mg PO TID tab 11/09/22 12/23/22 Rx Acetaminophen Tab [Tylenol] 650 mg PO Q6H PRN 11/20/22 12/23/22 History Multivitamins, Thera [Multivitamin 1 tab PO DAILY@0800 11/20/22 12/23/22 History (formulary)] Nortriptyline HCl 75 mg PO HS 11/20/22 12/23/22 History Digoxin [Lanoxin] 125 mcg PO DAILY tab 11/28/22 12/23/22 Rx HYDROcodone/APAP 7.5-325MG [[place] 1 tab PO Q6HR PRN 12/05/22 12/23/22 History 7.5-325] Insulin Glargine,Hum.rec.anlog 14 units SQ HS 12/05/22 12/23/22 History [Lantus Solostar Pen] Insulin Lispro [humaLOG Kwikpen] See Protocol SQ ACHS@07,11,16,20 12/05/22 12/23/22 History Lidocaine [Aspercreme Patch] 1 patch TRANSDERM DAILY 12/05/22 12/23/22 History Magnesium Hydroxide [Milk of 2,400 mg PO DAILY PRN 12/05/22 12/23/22 History Magnesia] Pregabalin [Lyrica] 300 mg PO BID@0800,1600 12/23/22 12/23/22 History Allergies Allergy/AdvReac Type Severity Reaction Status Date / Time baclofen Allergy Unknown Verified 12/23/22 12:58 Iodinated Contrast Media Allergy Unknown Verified 12/23/22 12:58 sulfamethoxazole Allergy Unknown Verified 12/23/22 12:58 [From Bactrim] trimethoprim [From Bactrim] Allergy Unknown Verified 12/23/22 12:58 apixaban [From Eliquis] AdvReac "felt Verified 12/23/22 12:58 funny" Physical Examination - Vital Signs Vital Signs: Vital Signs Temp Pulse Resp BP Pulse Ox 12/27/22 07:50 96.7 F L 70 18 107/69 97 12/27/22 04:00 97.1 F L 73 18 101/62 98 12/27/22 00:00 96.7 F L 71 18 96/65 97 12/26/22 20:00 96.8 F L 76 18 98/67 100 12/26/22 16:06 96.5 F L 71 18 91/62 91 L 12/26/22 14:39 74 12/26/22 11:56 97.1 F L 74 20 98/61 95 12/26/22 10:36 72 Intake and Output 12/26/22 12/27/22 12/27/22 22:59 06:59 14:59 Intake Total 0 Output Total 1200 450 Balance -1200 -450 0 Intake: Oral 0 Output: Urine 1200 450 Uretheral (Gamble) 800 Other: Voiding Method Indwelling Catheter Indwelling Catheter GENERAL: The patient is lying in bed and does not appear in acute distress. Was agitated upon trying to exam him. NEUROLOGICAL: Limited because of condition/cooperation. Higher mental function: The patient is very drowsy but is awakeable to voice. He is oriented to self and place. He states year is 2019. He is following few simple commands (thumbs up and wiggling toes). No coversing much. Cranial nerves: The pupils are round, equal and reactive to light. No facial weakness. No dysarthria. Motor: The strength is limited but lifting uppers above gravity. wiggled right toes. He has AKA on left. Cerebellum: Unable to assess. Sensation: Unable to assess. Reflexes (right/left): Unable to assess. Plantars is mute on the right. Has left AKA. Results - Laboratory Findings CBC and BMP: 12/27/22 07:44 12/27/22 07:44 Abnormal Lab Findings: Abnormal Labs 12/23/22 12/23/22 12/23/22 10:25 10:33 10:33 WBC 11.7 H RBC 4.22 L Hgb 12.8 L Hct MCHC RDW 17.1 H Neutrophils # 9.8 H Lymphocytes # PT 16.4 H INR 1.6 H APTT 51.2 H D-Dimer ABG pO2 ABG Total CO2 ABG O2 Saturation Sodium 135 L BUN 59 H Creatinine 2.05 H Glucose 225 H POC Glucose (mg/dL) Calcium 8.2 L Troponin I Albumin 3.2 L Procalcitonin Urine Protein Urine Glucose (UA) Urine Blood Ur Leukocyte Esterase Urine RBC Urine WBC Urine WBC Clumps Urine Bacteria 12/23/22 12/23/22 12/23/22 10:33 14:08 17:34 WBC RBC Hgb Hct MCHC RDW Neutrophils # Lymphocytes # PT INR APTT D-Dimer ABG pO2 ABG Total CO2 ABG O2 Saturation Sodium BUN Creatinine Glucose POC Glucose (mg/dL) Calcium Troponin I 0.044 H* 0.036 H* 0.040 H* Albumin Procalcitonin Urine Protein Urine Glucose (UA) Urine Blood Ur Leukocyte Esterase Urine RBC Urine WBC Urine WBC Clumps Urine Bacteria 12/23/22 12/23/22 12/24/22 17:44 20:09 06:12 WBC RBC Hgb Hct MCHC RDW Neutrophils # Lymphocytes # PT INR APTT D-Dimer ABG pO2 ABG Total CO2 ABG O2 Saturation Sodium BUN Creatinine Glucose POC Glucose (mg/dL) 149 H 235 H 142 H Calcium Troponin I Albumin Procalcitonin Urine Protein Urine Glucose (UA) Urine Blood Ur Leukocyte Esterase Urine RBC Urine WBC Urine WBC Clumps Urine Bacteria 12/24/22 12/24/22 12/25/22 11:42 20:17 06:53 WBC RBC 3.88 L Hgb 11.5 L Hct 37.8 L MCHC 30.5 L RDW 16.9 H Neutrophils # Lymphocytes # 0.9 L PT INR APTT D-Dimer ABG pO2 ABG Total CO2 ABG O2 Saturation Sodium BUN Creatinine Glucose POC Glucose (mg/dL) 141 H 198 H Calcium Troponin I Albumin Procalcitonin Urine Protein Urine Glucose (UA) Urine Blood Ur Leukocyte Esterase Urine RBC Urine WBC Urine WBC Clumps Urine Bacteria 12/25/22 12/25/22 12/25/22 06:53 16:15 19:48 WBC RBC Hgb Hct MCHC RDW Neutrophils # Lymphocytes # PT INR APTT D-Dimer ABG pO2 ABG Total CO2 ABG O2 Saturation Sodium BUN 70 H Creatinine 2.43 H Glucose POC Glucose (mg/dL) 63 L 160 H Calcium 8.2 L Troponin I Albumin 3.1 L Procalcitonin Urine Protein Urine Glucose (UA) Urine Blood Ur Leukocyte Esterase Urine RBC Urine WBC Urine WBC Clumps Urine Bacteria 12/25/22 12/26/22 12/26/22 21:00 08:25 08:25 WBC RBC 4.12 L Hgb 12.3 L Hct MCHC 30.4 L RDW 16.7 H Neutrophils # Lymphocytes # PT INR APTT D-Dimer ABG pO2 ABG Total CO2 ABG O2 Saturation Sodium BUN 80 H Creatinine 2.44 H Glucose POC Glucose (mg/dL) Calcium Troponin I Albumin 3.2 L Procalcitonin Urine Protein 3+ H Urine Glucose (UA) Trace H Urine Blood Moderate H Ur Leukocyte Esterase Large H Urine RBC >182 H Urine WBC >182 H Urine WBC Clumps Many H Urine Bacteria Many H 12/26/22 12/26/22 12/26/22 08:25 08:25 08:39 WBC RBC Hgb Hct MCHC RDW Neutrophils # Lymphocytes # PT INR APTT D-Dimer 1.91 H ABG pO2 137 H ABG Total CO2 26 H ABG O2 Saturation 99.4 H Sodium BUN Creatinine Glucose POC Glucose (mg/dL) Calcium Troponin I Albumin Procalcitonin 0.26 H Urine Protein Urine Glucose (UA) Urine Blood Ur Leukocyte Esterase Urine RBC Urine WBC Urine WBC Clumps Urine Bacteria 12/26/22 12/26/22 12/26/22 11:26 11:55 17:53 WBC RBC Hgb Hct MCHC RDW Neutrophils # Lymphocytes # PT INR APTT D-Dimer ABG pO2 ABG Total CO2 ABG O2 Saturation Sodium BUN Creatinine Glucose POC Glucose (mg/dL) 117 H 157 H Calcium Troponin I Albumin Procalcitonin Urine Protein 2+ H Urine Glucose (UA) Urine Blood Small H Ur Leukocyte Esterase Large H Urine RBC >182 H Urine WBC >182 H Urine WBC Clumps Many H Urine Bacteria 12/26/22 12/27/22 12/27/22 20:31 05:49 07:44 WBC RBC 4.06 L Hgb 12.3 L Hct MCHC 30.8 L RDW 16.7 H Neutrophils # Lymphocytes # PT INR APTT D-Dimer ABG pO2 ABG Total CO2 ABG O2 Saturation Sodium BUN Creatinine Glucose POC Glucose (mg/dL) 148 H 231 H Calcium Troponin I Albumin Procalcitonin Urine Protein Urine Glucose (UA) Urine Blood Ur Leukocyte Esterase Urine RBC Urine WBC Urine WBC Clumps Urine Bacteria 12/27/22 07:44 WBC RBC Hgb Hct MCHC RDW Neutrophils # Lymphocytes # PT INR APTT D-Dimer ABG pO2 ABG Total CO2 ABG O2 Saturation Sodium BUN 69 H Creatinine 2.08 H Glucose 112 H POC Glucose (mg/dL) Calcium 8.0 L Troponin I Albumin 2.8 L Procalcitonin Urine Protein Urine Glucose (UA) Urine Blood Ur Leukocyte Esterase Urine RBC Urine WBC Urine WBC Clumps Urine Bacteria Assessment and Plan Assessment: Altered mental status due to multifocal: Septic encephalopathy from underlying UTI, as well as metabolic encephalopathy with hyperglycemia and underlying worsening acute on chronic kidney insufficiency Episode of tremor (per nurse on 12/26/22): Seems more likely due to metabolic derangement and underlying infection. Acute UTI Acute on chronic kidney insufficiency Diabetes mellitus Atrial fibrillation on Pradaxa and digoxin History of TIA History of pulmonary embolism Hypertension Left AKA Hx of DVT of bilateral legs s/p green filter Plan: I ordered MRI Brain to rule out acute/subacute stroke. Routine EEG is ordered by primary. I ordered ammonia level, vitamin B12, folate. TSH was a last done on 2022 so does not need to be repeated from a neurologic perspective. We'll defer the rest of the medical management to the primary team and other specialists. The plan was discussed with the patient's nurse. Thank you for the consultation Time with Patient: Greater than 30
[2022-12-27 16:32] LABS: Glucose,Whole Blood 292 mg/dL (70-110)
--- NOTE | 2022-12-27 18:55 | EEG ---
ELECTROENCEPHALOGRAM REPORT CLINICAL HISTORY: This is a 67-year-old gentleman with altered mental status and episode of tremor. The video EEG is obtained to rule out seizure epileptiform discharges. DESCRIPTION: Wakefulness is only obtained. The background consists of [id number] voltage of 6 to 7 hertz activity. There is no physiological sleep architecture. There is no focal slowing. There is mild to moderate diffuse myogenic artifact. Interictal and ictal is none. ACTIVATION PROCEDURE: Photic stimulation and hyperventilation are not performed. CLINICAL INTERPRETATION: This is an abnormal routine EEG. The background slowing is suggestive of mild encephalopathy likely due to toxic metabolic derangement. Otherwise, there is no focal slowing, epileptiform discharge or seizure on the EEG. Clinical correlation is recommended. MMODL / WILLN: [id number] / MTDD
[2022-12-27 20:50] LABS: Glucose,Whole Blood 195 mg/dL (70-110)
[2022-12-27] MEDS: INSULIN DETEMIR (LEVEMIR) 100 UNIT/ML SYR SQ SCH (21:29)
[2022-12-27] MEDS: ATORVASTATIN 80 MG TAB PO SCH (21:29)
[2022-12-27] MEDS: NORTRIPTYLINE 25 MG CAP PO SCH (21:29)
--- NOTE | 2022-12-28 05:29 | PN ---
PROGRESS NOTE SUBJECTIVE: We had a Neurology consult for increased confusion as the patient was more confused yesterday. Septic workup is pending. He has history of atrial fibrillation, cardiomyopathy, TIA, PE, diabetes mellitus, hypertension, prior seizures. We will get Neurology to see him for possible seizure disorder. Past medical history was reviewed. OBJECTIVE: VITAL SIGNS: O2 saturation 91% to 92% on room air, blood pressure is 101/67, temperature 97, pulse 70, respiratory rate 18. CARDIOVASCULAR: S1, S2. LUNGS: Transmitted upper sounds. NEUROLOGIC: He wakes up and goes right back to sleep. Does not give full answers. Mumbles. LABORATORY DATA: Reviewed. BUN 69, creatinine 2.08. Neurology saw the patient, is recommending treatment for UTI which he is on IV Zosyn. ASSESSMENT: 1. Diabetes mellitus. 2. Acute on chronic renal insufficiency fluids. 3. Metabolic encephalopathy with hyperglycemia and underlying acute on chronic kidney insufficiency. Possibly metabolic or septic encephalopathy from underlying urinary tract infection and altered mental status. 4. History of transient ischemic attack, pulmonary embolism, severe chronic obstructive pulmonary disease, left above-knee amputation, hypertension. Current prognosis is guarded. Continue broad-spectrum antibiotics. Brain CT was done which showed no acute process. PLAN: Continue with Dr. Ordoñez's recommendations for infection. Neurology workup in progress. Prognosis is guarded. MMODL / IJN: [id number] /
[2022-12-28] MEDS: SODIUM CHLORIDE 0.9% 1,000 ML IV SCH (05:53)
[2022-12-28] MEDS: NITROGLYCERIN OINT 1 INCH/GM PACKET TOPICAL SCH ×3 (05:53→17:15)
[2022-12-28] MEDS: PIPERACILLIN-TAZOBACTAM 3.375 GM in SODIUM CHLORIDE 0.9% 100 ML IVPB SCH ×3 (05:53→16:41)
[2022-12-28 06:19] LABS: Glucose,Whole Blood 110 mg/dL (70-110)
[2022-12-28] MEDS: ASPIRIN 325 MG TAB PO SCH (08:57)
[2022-12-28] MEDS: HYDROcodone/APAP 7.5-325MG 1 EACH TAB PO PRN ×2 (08:57→21:37)
[2022-12-28] MEDS: METOPROLOL TARTRATE 25 MG TAB PO SCH ×2 (08:58→21:38)
[2022-12-28] MEDS: PANTOPRAZOLE 40 MG TABLET PO SCH (08:58)
[2022-12-28] MEDS: DIGOXIN 125 MCG TAB PO SCH (08:58)
[2022-12-28] MEDS: LORATADINE 10 MG TAB PO SCH (08:58)
[2022-12-28] MEDS: SENNOSIDES 8.6 MG TAB PO SCH ×2 (08:58→21:38)
[2022-12-28] MEDS: DABIGATRAN 150 MG CAP PO SCH (08:58)
[2022-12-28] MEDS: MULTIVITAMINS, THERA 1 EACH TAB PO SCH (08:58)
[2022-12-28] MEDS: FERROUS SULFATE 325 MG TAB PO SCH ×2 (08:58→21:38)
[2022-12-28] MEDS: methIMAzole 5 MG TAB PO SCH ×3 (09:00→21:38)
[2022-12-28] MEDS: LIDOCAINE TRANSDERM SCH (09:47)
--- NOTE | 2022-12-28 11:01 | P.CNPUL ---
History of Present Illness Consult date: 12/27/22 Reason for consult: dyspnea Chief complaint: Shortness breath History of present illness: Patient is a 67-year-old male who has a long-standing history of heart failure probably combination of systolic and diastolic heart failure patient has chronic atrial fibrillation patient was seen in cardiology office on day of admission been recommended to admitted at [facility]. Patient was brought in by EMS into emergency department and was found to be tachycardic with the back pain has shortness of breath initially patient was agitated heart rate was varying from 120- 270 other active medical problems include dyslipidemia patient has been on anticoagulation with direct oral anticoagulant, COPD, history of CVA, diabetes mellitus, deep venous thrombosis, dyslipidemia, hypertension and pneumonia. Off note that patient was admitted in 11/20/2020 with hyperkalemia and hyperglycemia uncontrolled diabetes he also have a prior history of lupus anticoagulants with extensive thromboembolism in lower extremity as well as the lungs in 80s patient is status post [place] filter and left AKA he is a wheelchair-bound. Patient was admitted to medical floor his initial x-ray significant for cardiomegaly and hyperinflation and COPD-like changes. Computed tomography scan of the chest showed improvement in bilateral basal atelectasis and effusion compared to prior CAT scan performed on 11/25/2022 CT of the head no acute intracranial process with cerebral atrophy noted. Arterial blood gas revealed pH of 7.4 pCO2 35 pO2 137. BUN/creatinine is 69/2.08 most recent improved from 70/2.43 at time admission urine is positive for leukocyte esterase with many RBCs WBCs and bacteria currently patient is being treated with bronchodilators continuation of home medications including statins and diet-controlled anticoagulant rate controlled medications and IV Zosyn urine culture is positive for gram-negative kandi blood cultures are pending Review of Systems All systems: negative Past Medical History Past Medical History: Atrial Fibrillation, Asthma, COPD, CVA/TIA, Diabetes Mellitus, Deep Vein Thrombosis (DVT), GERD/Reflux, Hyperlipidemia, Hypertension, Neurologic Disorder, Osteoarthritis (OA), Pneumonia, Pulmonary Embolus (PE), Sk in Disorder, Vascular Disorder Additional Past Medical History / Comment(s): Pt admitted to [facility] on 11/20/20 with hyperkalemia, hyperglycemia, uncontrolled diabetes. Other hx: Lupus anticoagulant, DVTs bilateral legs, PEs bilateral lungs in , pt has zina filter, L AKA/wheelchair bound, NIDDM type II, neuropathy bilateral hands, wound care patient for buttock wound, now healed, TIAs, pneumothorax, past migraines, chronic low back pain, R leg edema at times, varicosities. History of Any Multi-Drug Resistant Organisms: MRSA Date of last positivie culture/infection: 11/02/22 MDRO Source:: Blood Past Surgical History: Adenoidectomy, Appendectomy, Tonsillectomy Additional Past Surgical History / Comment(s): [place] filter, stents in vessels "in pelvic area", total L hip arthroplasty, vein strippings, colonoscopy. left leg amputation Past Anesthesia/Blood Transfusion Reactions: No Reported Reaction Additional Past Anesthesia/Blood Transfusion Reaction / Comment(s): Pt has received blood in past without reaction. Past Psychological History: No Psychological Hx Reported Additional Psychological History / Comment(s): Pt currently living in hotels, He has a glucometer. He has a nebulizer. Pt has prosthetic, states it is being worked on. Smoking Status: Former smoker Past Alcohol Use History: None Reported Additional Past Alcohol Use History / Comment(s): Pt startes smoking in 1969 and is a ppd smoker. Past Drug Use History: None Reported - Past Family History Mother Family Medical History: Coronary Artery Disease (CAD), Myocardial Infarction ([place]), Vascular Disorder Additional Family Medical History / Comment(s): heart disease, peripheral vascular disease. Father Family Medical History: Diabetes Mellitus, Renal Disease Medications and Allergies Home Medications Medication Instructions Recorded Confirmed Type Atorvastatin [Lipitor] 80 mg PO HS 08/27/22 12/23/22 History Loratadine 10 mg PO DAILY 08/27/22 12/23/22 History Dabigatran [Pradaxa] 150 mg PO BID@0800,1600 10/28/22 12/23/22 History Ferrous Sulfate [Iron (65 MG 325 mg PO BID 10/28/22 12/23/22 History Elemental)] Omeprazole [PriLOSEC] 20 mg PO DAILY 10/28/22 12/23/22 History Sennosides [Senokot] 8.6 mg PO BID 10/28/22 12/23/22 History Bumetanide [BUMEX] 1 mg PO DAILY@1600 tab 11/09/22 12/23/22 Rx Ipratropium-Albuterol Nebulize 3 ml INHALATION RT-Q6H PRN each 11/09/22 12/23/22 Rx [Duoneb 0.5 mg-3 mg/3 ml Soln] methIMAzole [Tapazole] 5 mg PO TID tab 11/09/22 12/23/22 Rx Acetaminophen Tab [Tylenol] 650 mg PO Q6H PRN 11/20/22 12/23/22 History Multivitamins, Thera [Multivitamin 1 tab PO DAILY@0800 11/20/22 12/23/22 History (formulary)] Nortriptyline HCl 75 mg PO HS 11/20/22 12/23/22 History Digoxin [Lanoxin] 125 mcg PO DAILY tab 11/28/22 12/23/22 Rx HYDROcodone/APAP 7.5-325MG [[place] 1 tab PO Q6HR PRN 12/05/22 12/23/22 History 7.5-325] Insulin Glargine,Hum.rec.anlog 14 units SQ HS 12/05/22 12/23/22 History [Lantus Solostar Pen] Insulin Lispro [humaLOG Kwikpen] See Protocol SQ ACHS@07,11,16,20 12/05/22 12/23/22 History Lidocaine [Aspercreme Patch] 1 patch TRANSDERM DAILY 12/05/22 12/23/22 History Magnesium Hydroxide [Milk of 2,400 mg PO DAILY PRN 12/05/22 12/23/22 History Magnesia] Pregabalin [Lyrica] 300 mg PO BID@0800,1600 12/23/22 12/23/22 History Allergies Allergy/AdvReac Type Severity Reaction Status Date / Time baclofen Allergy Unknown Verified 12/23/22 12:58 Iodinated Contrast Media Allergy Unknown Verified 12/23/22 12:58 sulfamethoxazole Allergy Unknown Verified 12/23/22 12:58 [From Bactrim] trimethoprim [From Bactrim] Allergy Unknown Verified 12/23/22 12:58 apixaban [From Eliquis] AdvReac "felt Verified 12/23/22 12:58 funny" Physical Exam Vitals: Vital Signs Temp Pulse Resp BP Pulse Ox 12/27/22 12:43 97.0 F L 71 16 102/71 92 L 12/27/22 10:26 70 12/27/22 07:50 96.7 F L 70 18 107/69 97 12/27/22 04:00 97.1 F L 73 18 101/62 98 12/27/22 00:00 96.7 F L 71 18 96/65 97 12/26/22 20:00 96.8 F L 76 18 98/67 100 12/26/22 16:06 96.5 F L 71 18 91/62 91 L Intake and Output 12/27/22 12/27/22 12/27/22 06:59 14:59 22:59 Intake Total 118 Output Total 450 375 Balance -450 -257 Intake: Oral 118 Output: Urine 450 375 Other: Voiding Method Indwelling Catheter Indwelling Catheter Weight 86.183 kg - Constitutional General appearance: average body habitus, cooperative, disheveled - EENT Eyes: EOMI, PERRLA Ears: bilateral: normal - Neck Neck: normal ROM Carotids: bilateral: upstroke delayed Thyroid: bilateral: normal size - Respiratory Respiratory: bilateral: rales - Cardiovascular Rhythm: irregularly irregular Heart sounds: normal: S1, S2 - Gastrointestinal General gastrointestinal: soft - Integumentary Integumentary: normal turgor - Neurologic Neurologic: CNII-XII intact - Musculoskeletal Musculoskeletal: generalized weakness Results - Laboratory Findings CBC and BMP: 12/27/22 07:44 12/27/22 07:44 ABG ABG pH 7.45 (7.35-7.45) 12/26/22 08:39 ABG pCO2 35 mmHg (35-45) 12/26/22 08:39 ABG pO2 137 mmHg (83-108) H 12/26/22 08:39 ABG O2 Saturation 99.4 % (94-97) H 12/26/22 08:39 PT/INR, D-dimer PT 16.4 sec (9.0-12.0) H 12/23/22 10:33 INR 1.6 (<1.2) H 12/23/22 10:33 D-Dimer 1.91 mg/L FEU (<0.60) H 12/26/22 08:25 Abnormal lab findings: Abnormal Labs 12/23/22 12/23/22 12/23/22 10:25 10:33 10:33 WBC 11.7 H RBC 4.22 L Hgb 12.8 L Hct MCHC RDW 17.1 H Neutrophils # 9.8 H Lymphocytes # PT 16.4 H INR 1.6 H APTT 51.2 H D-Dimer ABG pO2 ABG Total CO2 ABG O2 Saturation Sodium 135 L BUN 59 H Creatinine 2.05 H Glucose 225 H POC Glucose (mg/dL) Calcium 8.2 L Troponin I Albumin 3.2 L Procalcitonin Urine Protein Urine Glucose (UA) Urine Blood Ur Leukocyte Esterase Urine RBC Urine WBC Urine WBC Clumps Urine Bacteria 12/23/22 12/23/22 12/23/22 10:33 14:08 17:34 WBC RBC Hgb Hct MCHC RDW Neutrophils # Lymphocytes # PT INR APTT D-Dimer ABG pO2 ABG Total CO2 ABG O2 Saturation Sodium BUN Creatinine Glucose POC Glucose (mg/dL) Calcium Troponin I 0.044 H* 0.036 H* 0.040 H* Albumin Procalcitonin Urine Protein Urine Glucose (UA) Urine Blood Ur Leukocyte Esterase Urine RBC Urine WBC Urine WBC Clumps Urine Bacteria 12/23/22 12/23/22 12/24/22 17:44 20:09 06:12 WBC RBC Hgb Hct MCHC RDW Neutrophils # Lymphocytes # PT INR APTT D-Dimer ABG pO2 ABG Total CO2 ABG O2 Saturation Sodium BUN Creatinine Glucose POC Glucose (mg/dL) 149 H 235 H 142 H Calcium Troponin I Albumin Procalcitonin Urine Protein Urine Glucose (UA) Urine Blood Ur Leukocyte Esterase Urine RBC Urine WBC Urine WBC Clumps Urine Bacteria 12/24/22 12/24/22 12/25/22 11:42 20:17 06:53 WBC RBC 3.88 L Hgb 11.5 L Hct 37.8 L MCHC 30.5 L RDW 16.9 H Neutrophils # Lymphocytes # 0.9 L PT INR APTT D-Dimer ABG pO2 ABG Total CO2 ABG O2 Saturation Sodium BUN Creatinine Glucose POC Glucose (mg/dL) 141 H 198 H Calcium Troponin I Albumin Procalcitonin Urine Protein Urine Glucose (UA) Urine Blood Ur Leukocyte Esterase Urine RBC Urine WBC Urine WBC Clumps Urine Bacteria 12/25/22 12/25/22 12/25/22 06:53 16:15 19:48 WBC RBC Hgb Hct MCHC RDW Neutrophils # Lymphocytes # PT INR APTT D-Dimer ABG pO2 ABG Total CO2 ABG O2 Saturation Sodium BUN 70 H Creatinine 2.43 H Glucose POC Glucose (mg/dL) 63 L 160 H Calcium 8.2 L Troponin I Albumin 3.1 L Procalcitonin Urine Protein Urine Glucose (UA) Urine Blood Ur Leukocyte Esterase Urine RBC Urine WBC Urine WBC Clumps Urine Bacteria 12/25/22 12/26/22 12/26/22 21:00 08:25 08:25 WBC RBC 4.12 L Hgb 12.3 L Hct MCHC 30.4 L RDW 16.7 H Neutrophils # Lymphocytes # PT INR APTT D-Dimer ABG pO2 ABG Total CO2 ABG O2 Saturation Sodium BUN 80 H Creatinine 2.44 H Glucose POC Glucose (mg/dL) Calcium Troponin I Albumin 3.2 L Procalcitonin Urine Protein 3+ H Urine Glucose (UA) Trace H Urine Blood Moderate H Ur Leukocyte Esterase Large H Urine RBC >182 H Urine WBC >182 H Urine WBC Clumps Many H Urine Bacteria Many H 12/26/22 12/26/22 12/26/22 08:25 08:25 08:39 WBC RBC Hgb Hct MCHC RDW Neutrophils # Lymphocytes # PT INR APTT D-Dimer 1.91 H ABG pO2 137 H ABG Total CO2 26 H ABG O2 Saturation 99.4 H Sodium BUN Creatinine Glucose POC Glucose (mg/dL) Calcium Troponin I Albumin Procalcitonin 0.26 H Urine Protein Urine Glucose (UA) Urine Blood Ur Leukocyte Esterase Urine RBC Urine WBC Urine WBC Clumps Urine Bacteria 12/26/22 12/26/22 12/26/22 11:26 11:55 17:53 WBC RBC Hgb Hct MCHC RDW Neutrophils # Lymphocytes # PT INR APTT D-Dimer ABG pO2 ABG Total CO2 ABG O2 Saturation Sodium BUN Creatinine Glucose POC Glucose (mg/dL) 117 H 157 H Calcium Troponin I Albumin Procalcitonin Urine Protein 2+ H Urine Glucose (UA) Urine Blood Small H Ur Leukocyte Esterase Large H Urine RBC >182 H Urine WBC >182 H Urine WBC Clumps Many H Urine Bacteria 12/26/22 12/27/22 12/27/22 20:31 05:49 07:44 WBC RBC 4.06 L Hgb 12.3 L Hct MCHC 30.8 L RDW 16.7 H Neutrophils # Lymphocytes # PT INR APTT D-Dimer ABG pO2 ABG Total CO2 ABG O2 Saturation Sodium BUN Creatinine Glucose POC Glucose (mg/dL) 148 H 231 H Calcium Troponin I Albumin Procalcitonin Urine Protein Urine Glucose (UA) Urine Blood Ur Leukocyte Esterase Urine RBC Urine WBC Urine WBC Clumps Urine Bacteria 12/27/22 12/27/22 07:44 12:11 WBC RBC Hgb Hct MCHC RDW Neutrophils # Lymphocytes # PT INR APTT D-Dimer ABG pO2 ABG Total CO2 ABG O2 Saturation Sodium BUN 69 H Creatinine 2.08 H Glucose 112 H POC Glucose (mg/dL) 142 H Calcium 8.0 L Troponin I Albumin 2.8 L Procalcitonin Urine Protein Urine Glucose (UA) Urine Blood Ur Leukocyte Esterase Urine RBC Urine WBC Urine WBC Clumps Urine Bacteria - Diagnostic Findings Chest x-ray: report reviewed, image reviewed CT scan - chest: report reviewed, image reviewed (Finding as noted above) Assessment and Plan Assessment: A. fib with rapid ventricular response Acute on chronic hypoxic respiratory failure Sepsis associated with gram-negative rods and UTI UTI with gram-negative rods Small bilateral pleural effusion Basal atelectasis Acute on chronic kidney disease Type 2 diabetes mellitus Metabolic encephalopathy related to multifactorial processes sepsis uncontrolled diabetes and chronic renal failure with acute worsening COPD with acute exacerbation on bronchodilators Plan: Bronchodilators Hold on steroids Supplemental oxygen Broad-spectrum antibiotics and follow up on culture results and reports Deep breathing exercises incentive spirometry Continue anticoagulation with direct oral anticoagulant Further recommendations pending plan of care as per clinical response of patient Time with Patient: Greater than 30
--- NOTE | 2022-12-28 11:06 | CDI ---
Documentation Clarification Form Date: 12/28/2022 10:58:26 AM From: Enid Mederos RN, CCDS Admit Date: 12/23/2022 01:45:00 PM Patient Name: Checo Quijano Visit Number: [id number] Discharge Date: ATTENTION: The Clinical Documentation Specialists (CDI) and [facility] Coding Staff appreciate your assistance in clarifying documentation. Please respond to the clarification below the line at the bottom and electronically sign. The CDI & [facility] Coding staff will review the response and follow-up if needed. Please note: Queries are made part of the Legal Health Record. If you have any questions, please contact the author of this message via ITS. Dr. Quintin Bhakta The patient has mental status changes most likely related to underlying Sepsis/UTI documented in the Nephrology consult and subsequent progress notes. Based on this information and the findings below, is there an additional diagnosis that is clinically appropriate for this patient? 12/27 Neurology consult: Altered mental status due to multifocal: Septic encephalopathy from underlying UTI, as well as metabolic encephalopathy with hyperglycemia 12/28 Pulmonary consult: Sepsis associated with gram negative rods and uti. History/Risk Factors: Atrial Fibrillation, COPD, CVA, Diabetes Mellitus, DVT, Hyperlipidemia, Clinical Indicators: 67-year-old male present with tachycardia ruled in for atrial fibrillation. He complains of chronic back and chest pain. 12/23 WBC 11.7 12/26 Blood cultures: Pending 12/25 Urine Culture (voided) Gram negative bacilli 12/23 Vital signs: 120/76 122 18 97.9 98% 2/L NC EKG: shows atrial fibrillation with rapid ventricular response at 122 bpm. Patient does have a right bundle branch block. Treatment: 12/26 ID Consult: Patient with significantly positive UA urinary retention mental status changes, check blood cultures and cultures form PICC line. Zosyn 3.375 GM IVPB Q 8 HRS 12/26-12/28 Is there an additional diagnosis that is clinically appropriate for this patient? [ ] Sepsis, present on admission secondary to UTI [ ] Sepsis ruled out [ ] Severe Sepsis with organ failure [ ] Other, please specify [ ] Unable to determine SIRS Criteria: 2 or more of the following may indicate SIRS Temperature < 96.8F (36C) or > 101.0F (38.3C) Heart Rate > 90 bpm Respiratory Rate > 20 breaths/min or PaCO2 < 32 mmHg White Blood Cell Count > 12,000 or < 4,000 cells/mm3 or > 10% bands (Template Last Reviewed: July 2022) [facility]
--- NOTE | 2022-12-28 11:06 | P.PN ---
Subjective Progress Note Date: 12/28/22 Principal diagnosis: A. fib with rapid ventricular response Acute on chronic hypoxic respiratory failure Sepsis associated with gram-negative rods and UTI UTI with gram-negative rods Small bilateral pleural effusion Basal atelectasis Acute on chronic kidney disease Type 2 diabetes mellitus Metabolic encephalopathy related to multifactorial processes sepsis uncontrolled diabetes and chronic renal failure with acute worsening COPD with acute exacerbation on bronchodilators 12/28/2022, patient seen and evaluated examined, he remains on broad-spectrum antibiotics for UTI and sepsis, he is afebrile, oxygen saturation is 98% on 2 L, blood pressure soft with a map of 76, sugars are relatively more controlled on last check was 110, ammonia is less than 9. Patient remains on bronchodilators and continuation of home medications IV Zosyn. With gentle hydration and renal function significantly improved Objective - Vital Signs Vital signs: Vital Signs Temp 97.8 F 12/28/22 08:54 Pulse 80 12/28/22 08:54 Resp 16 12/28/22 08:54 BP 95/67 12/28/22 08:54 Pulse Ox 98 12/28/22 08:54 FiO2 Intake & Output 12/27/22 12/28/22 12/28/22 18:59 06:59 18:59 Intake Total 358 50 490 Output Total 575 350 250 Balance -217 -300 240 Weight 86.183 kg Intake: IV 10 Invasive Line 2 10 Oral 358 50 480 Output: Urine 575 350 250 Other: Voiding Method Indwelling Catheter Indwelling Catheter Indwelling Catheter - Exam - Constitutional General appearance: average body habitus, cooperative, disheveled - EENT Eyes: EOMI, PERRLA Ears: bilateral: normal - Neck Neck: normal ROM Carotids: bilateral: upstroke delayed Thyroid: bilateral: normal size - Respiratory Respiratory: bilateral: rales - Cardiovascular Rhythm: irregularly irregular Heart sounds: normal: S1, S2 - Gastrointestinal General gastrointestinal: soft - Integumentary Integumentary: normal turgor, left AKA - Neurologic Neurologic: CNII-XII intact - Musculoskeletal Musculoskeletal: generalized weakness - Labs CBC & Chem 7: 12/27/22 07:44 12/27/22 07:44 Labs: Abnormal Lab Results - Last 24 Hours (Table) 12/27/22 12/27/22 12/27/22 Range/Units 12:11 16:30 20:49 POC Glucose (mg/dL) 142 H 292 H 195 H (70-110) mg/dL Microbiology - Last 24 Hours (Table) 12/26/22 12:28 Blood Culture - Preliminary Blood 12/26/22 08:25 Blood Culture - Preliminary Blood 12/25/22 21:00 Urine Culture - Preliminary Urine,Voided Gram Neg Bacilli Assessment and Plan Assessment: A. fib with rapid ventricular response Acute on chronic hypoxic respiratory failure Sepsis associated with gram-negative rods and UTI UTI with gram-negative rods Small bilateral pleural effusion Basal atelectasis Acute on chronic kidney disease Type 2 diabetes mellitus Metabolic encephalopathy related to multifactorial processes sepsis uncontrolled diabetes and chronic renal failure with acute worsening COPD with acute exacerbation on bronchodilators Status post left AKA Plan: Bronchodilators Hold on steroids Supplemental oxygen Broad-spectrum antibiotics and follow up on culture results and reports Deep breathing exercises incentive spirometry Continue anticoagulation with direct oral anticoagulant Further recommendations pending plan of care as per clinical response of patient Time with Patient: Greater than 30
[2022-12-28 11:33] LABS: Glucose,Whole Blood 130 mg/dL (70-110)
--- NOTE | 2022-12-28 11:55 | CDI ---
Documentation Clarification Form Date: 12/28/2022 11:51:37 AM From: Enid Mederos RN, CCDS Admit Date: 12/23/2022 01:45:00 PM Patient Name: Checo Quijano Visit Number: [id number] Discharge Date: ATTENTION: The Clinical Documentation Specialists (CDI) and [facility] Coding Staff appreciate your assistance in clarifying documentation. Please respond to the clarification below the line at the bottom and electronically sign. The CDI & [facility] Coding staff will review the response and follow-up if needed. Please note: Queries are made part of the Legal Health Record. If you have any questions, please contact the author of this message via ITS. Dr. Ryan Kirkland The patient has elevated troponin. Based on this information and the findings below, is there an additional diagnosis that is clinically appropriate for this patient? Patient history/risk factors: Atrial Fibrillation, COPD, CVA, Diabetes Mellitus, DVT, Hyperlipidemia, Cardiomyopathy Clinical Indicators: 67-year-old male present with tachycardia ruled in for atrial fibrillation. He complains of chronic back pain and chest pain as pressure on admission. 12/23 Troponin 0.044, 0.036, 0.040 12/23 Vital signs: 120/76 122 18 97.9 98% 2/L NC 12/23 [id number] 12/25 UA Large LE, Urine culture: Gram Neg Bacilli, Blood cultures pending EKG: shows atrial fibrillation with rapid ventricular response at 122 bpm, diffuse nonspecific ST and T wave abnormalities. Patient does have a right bundle branch block. Last reported: 10/29/2022 ECHO showed impaired LV function with EF between 35- 40% Treatment: Cardiac/Telemetry monitoring Cardizem IV per orders) 12/23-12/25 Metoprolol tartrate 25 MG PO BID 12/25-12/28 Zosyn 3.375 GM IVPB Q 8 HRS 12/26-12/28 Is there an additional diagnosis that is clinically appropriate for this patient? [ x ] Type II MD secondary to Sepsis/UTI,or Afib [ ] Myocardial injury without ischemia [ ] No additional diagnosis/Not clinically significant [ ] Unable to determine [ ] Other, please specify (Template Last Reviewed: August 2022) [facility]TDD
--- NOTE | 2022-12-28 12:01 | P.PN ---
Subjective Patient is seen in follow-up for acute kidney injury. Renal function has been improving. Resting in bed. On nasal cannula. Denies chest pain or shortness of breath. Has Gamble catheter. Nonoliguric. Vital signs are stable. General: No acute distress. HEENT: Head exam is unremarkable. On nasal cannula. LUNGS: No audible rhonchi or wheezes. HEART: Rate and Rhythm are regular. ABDOMEN: Nontender. EXTREMITITES: Left BKA. Objective - Vital Signs Vital signs: Vital Signs Temp 97.8 F 12/28/22 08:54 Pulse 80 12/28/22 08:54 Resp 16 12/28/22 08:54 BP 95/67 12/28/22 08:54 Pulse Ox 98 12/28/22 08:54 FiO2 Intake & Output 12/27/22 12/28/22 12/28/22 18:59 06:59 18:59 Intake Total 358 50 490 Output Total 575 350 250 Balance -217 -300 240 Weight 86.183 kg Intake: IV 10 Invasive Line 2 10 Oral 358 50 480 Output: Urine 575 350 250 Other: Voiding Method Indwelling Catheter Indwelling Catheter Indwelling Catheter - Labs CBC & Chem 7: 12/27/22 07:44 12/27/22 07:44 Labs: Abnormal Lab Results - Last 24 Hours (Table) 12/27/22 12/27/22 12/27/22 Range/Units 12:11 16:30 20:49 POC Glucose (mg/dL) 142 H 292 H 195 H (70-110) mg/dL 12/28/22 Range/Units 11:31 POC Glucose (mg/dL) 130 H (70-110) mg/dL Microbiology - Last 24 Hours (Table) 12/26/22 12:28 Blood Culture - Preliminary Blood 12/26/22 08:25 Blood Culture - Preliminary Blood 12/25/22 21:00 Urine Culture - Preliminary Urine,Voided Gram Neg Bacilli Assessment and Plan Plan: Assessment: 1. Acute kidney injury secondary to hemodynamic ATN further worsened with diuresis. Also component of urinary retention. Improving. Creatinine peaked at 2.4 for this admission and is 2.08 today. Mild left-sided hydronephrosis noted on ultrasound. Baseline creatinine near 1. 2. A. fib with RVR status post Cardizem drip. On digoxin and metoprolol. Cardiology following. 3. Gram-negative UTI on antibiotics. 4. Altered mental status likely from underlying infection. 5. Urinary retention. Gamble catheter placed. 6. Diabetes mellitus. Plan: Hep-Lock IV fluids. Check chest x-ray. Repeat labs in the morning. Avoid nephrotoxins. Follow-up cultures. Continue to hold diuretics for now. Encourage oral intake. Add Flomax.
--- NOTE | 2022-12-28 12:18 | P.GSCN ---
History of Present Illness Consult date: 12/28/22 History of present illness: CHIEF COMPLAINT: Altered mental status HISTORY OF PRESENT ILLNESS: This is a 67-year-old male who presented to the hospital with altered mental status and was found have evidence of UTI and acute kidney injury. Patient had renal and bladder ultrasound completed they had shown evidence of gallbladder hydrops with wall thickening and internal echoes and to correlate for acute cholecystitis. Surgical service consulted for evaluation of acute cholecystitis. Patient is not reporting any abdominal pain. He denies any nausea or vomiting. He does complain of chronic lower back pain. He has been eating and tolerating diet. He is only eating a small amount per nursing staff. Patient is on blood thinner, Pradaxa for PAD and is status post left above-knee amputation. Patient does have multiple medical issues. Patient seen and examined with Dr. Cowart PAST MEDICAL HISTORY: Atrial Fibrillation, Asthma, COPD, CVA/TIA, Diabetes Mellitus, Deep Vein Thrombosis (DVT), GERD/Reflux, Hyperlipidemia, Hypertension, Neurologic Disorder, Osteoarthritis (OA), Pneumonia, Pulmonary Embolus (PE), Skin Disorder, Vascular Disorder, Lupus PAST SURGICAL HISTORY: Adenoidectomy, Appendectomy, Tonsillectomy,1980s Zina filter, stents in vessels "in pelvic area", total L hip arthroplasty, vein strippings, colonoscopy. left leg amputation MEDICATIONS: See below ALLERGIES: See below SOCIAL HISTORY: No illicit drug use. REVIEW OF SYSTEMS: CONSTITUTIONAL: Denies fever or chills. HEENT: Denies blurred vision, vision changes, or eye pain. Denies hemoptysis CARDIOVASCULAR: Denies chest pain or pressure. RESPIRATORY: No shortness of breath. GASTROINTESTINAL: See HPI for pertinent findings HEMATOLOGIC: Denies bleeding disorders. GENITOURINARY: Denies any blood in urine or increased urinary frequency. SKIN: Denies pruitis. Denies rash. PHYSICAL EXAM: VITAL SIGNS: Reviewed GENERAL: Well-developed in no acute distress. ABDOMEN: Soft. Nondistended. Tenderness right upper quadrant NEUROLOGIC: Awake. Confused LABORATORY DATA: WBC 11.7 down to 9.4 Hgb 12.3 platelets 396 Sodium is 139 potassium 4.4 creatinine 2.08 LFTs within normal range Urine culture gram-negative bacilli. Blood cultures pending IMAGING: Bladder ultrasound borderline to mild left sided hydronephrosis. Gallbladder HIDA with wall thickening and internal echoes. Correlate for acute cholecystitis ASSESSMENT: 1. Acute on chronic cholecystitis PLAN: -Continue to monitor -Continue antibiotics -Hold Pradaxa for possible surgical intervention -Add low-fat diet Thank you for this consult Physician Insulation Worker Apprentice note has been reviewed by physician. Signing provider agrees with the documented findings, assessment, and plan of care. Past Medical History Past Medical History: Atrial Fibrillation, Asthma, COPD, CVA/TIA, Diabetes Mellitus, Deep Vein Thrombosis (DVT), GERD/Reflux, Hyperlipidemia, Hypertension, Neurologic Disorder, Osteoarthritis (OA), Pneumonia, Pulmonary Embolus (PE), Skin Disorder, Vascular Disorder Additional Past Medical History / Comment(s): Pt admitted to [facility] on 11/20/20 with hyperkalemia, hyperglycemia, uncontrolled diabetes. Other hx: Lupus anticoagulant, DVTs bilateral legs, PEs bilateral lungs in , pt has zina filter, L AKA/wheelchair bound, NIDDM type II, neuropathy bilateral hands, wound care patient for buttock wound, now healed, TIAs, pneumothorax, past migraines, chronic low back pain, R leg edema at times, varicosities. History of Any Multi-Drug Resistant Organisms: MRSA Year Discovered:: 11/02/22 MDRO Source:: Blood Past Surgical History: Adenoidectomy, Appendectomy, Tonsillectomy Additional Past Surgical History / Comment(s): Zina filter, stents in vessels "in pelvic area", total L hip arthroplasty, vein strippings, colonoscopy. left leg amputation Past Anesthesia/Blood Transfusion Reactions: No Reported Reaction Additional Past Anesthesia/Blood Transfusion Reaction / Comm: Pt has received blood in past without reaction. Past Psychological History: No Psychological Hx Reported Additional Psychological History / Comment(s): Pt currently living in hotels, He has a glucometer. He has a nebulizer. Pt has prosthetic, states it is being worked on. Smoking Status: Former smoker Past Alcohol Use History: None Reported Additional Past Alcohol Use History / Comment(s): Pt startes smoking in 1969 and is a ppd smoker. Past Drug Use History: None Reported - Past Family History Mother Family Medical History: Coronary Artery Disease (CAD), Myocardial Infarction ([place]), Vascular Disorder Additional Family Medical History / Comment(s): heart disease, peripheral vascular disease. Father Family Medical History: Diabetes Mellitus, Renal Disease Medications and Allergies Home Medications Medication Instructions Recorded Confirmed Type Atorvastatin [Lipitor] 80 mg PO HS 08/27/22 12/23/22 History Loratadine 10 mg PO DAILY 08/27/22 12/23/22 History Dabigatran [Pradaxa] 150 mg PO BID@0800,1600 10/28/22 12/23/22 History Ferrous Sulfate [Iron (65 MG 325 mg PO BID 10/28/22 12/23/22 History Elemental)] Omeprazole [PriLOSEC] 20 mg PO DAILY 10/28/22 12/23/22 History Sennosides [Senokot] 8.6 mg PO BID 10/28/22 12/23/22 History Bumetanide [BUMEX] 1 mg PO DAILY@1600 tab 11/09/22 12/23/22 Rx Ipratropium-Albuterol Nebulize 3 ml INHALATION RT-Q6H PRN each 11/09/22 12/23/22 Rx [Duoneb 0.5 mg-3 mg/3 ml Soln] methIMAzole [Tapazole] 5 mg PO TID tab 11/09/22 12/23/22 Rx Acetaminophen Tab [Tylenol] 650 mg PO Q6H PRN 11/20/22 12/23/22 History Multivitamins, Thera [Multivitamin 1 tab PO DAILY@0800 11/20/22 12/23/22 History (formulary)] Nortriptyline HCl 75 mg PO HS 11/20/22 12/23/22 History Digoxin [Lanoxin] 125 mcg PO DAILY tab 11/28/22 12/23/22 Rx HYDROcodone/APAP 7.5-325MG [Irrigon 1 tab PO Q6HR PRN 12/05/22 12/23/22 History 7.5-325] Insulin Glargine,Hum.rec.anlog 14 units SQ HS 12/05/22 12/23/22 History [Lantus Solostar Pen] Insulin Lispro [humaLOG Kwikpen] See Protocol SQ ACHS@07,11,16,20 12/05/22 12/23/22 History Lidocaine [Aspercreme Patch] 1 patch TRANSDERM DAILY 12/05/22 12/23/22 History Magnesium Hydroxide [Milk of 2,400 mg PO DAILY PRN 12/05/22 12/23/22 History Magnesia] Pregabalin [Lyrica] 300 mg PO BID@0800,1600 12/23/22 12/23/22 History Allergies Allergy/AdvReac Type Severity Reaction Status Date / Time baclofen Allergy Unknown Verified 12/23/22 12:58 Iodinated Contrast Media Allergy Unknown Verified 12/23/22 12:58 sulfamethoxazole Allergy Unknown Verified 12/23/22 12:58 [From Bactrim] trimethoprim [From Bactrim] Allergy Unknown Verified 12/23/22 12:58 apixaban [From Eliquis] AdvReac "felt Verified 12/23/22 12:58 funny" Surgical - Exam Vital Signs Pulse Resp BP Pulse Ox 124 H 18 108/65 94 L 12/23/22 10:30 12/23/22 10:30 12/23/22 10:30 12/23/22 10:30 Results - Labs 12/27/22 07:44 12/27/22 07:44 Abnormal Lab Results - Last 24 Hours (Table) 12/27/22 12/27/22 12/27/22 Range/Units 12:11 16:30 20:49 POC Glucose (mg/dL) 142 H 292 H 195 H (70-110) mg/dL Microbiology - Last 24 Hours (Table) 12/26/22 12:28 Blood Culture - Preliminary Blood 12/26/22 08:25 Blood Culture - Preliminary Blood 12/25/22 21:00 Urine Culture - Preliminary Urine,Voided Gram Neg Bacilli
--- NOTE | 2022-12-28 12:46 | XR ---
EXAMINATION TYPE: XR chest 1V DATE OF EXAM: 12/28/2022 COMPARISON: NONE HISTORY: Shortness of breath TECHNIQUE: Single frontal view of the chest is obtained. FINDINGS: There is right perihilar consolidation but no pleural effusion, or pneumothorax seen. The cardiac silhouette size is within normal limits. The osseous structures are intact. Density along the lateral margin of the left lower lobe likely related to soft tissue artifact. Subsegmental change s right retrocardiac region. PICC line in good position. IMPRESSION: 1. Right perihilar and basilar atelectasis or early pneumonia. 2. Lucency along the lower left chest is felt to be most likely artifactual and can be followed up on the repeat x-ray.
--- NOTE | 2022-12-28 15:12 | P.PN ---
Subjective Progress Note Date: 12/28/22 The patient seen at bedside and he feels somewhat better today. Objective - Vital Signs Vital signs: Vital Signs Temp 97.4 F L 12/28/22 12:24 Pulse 76 12/28/22 12:24 Resp 18 12/28/22 12:24 BP 90/54 12/28/22 12:24 Pulse Ox 98 12/28/22 12:24 FiO2 Intake & Output 12/27/22 12/28/22 12/28/22 18:59 06:59 18:59 Intake Total 358 50 722 Output Total 575 350 400 Balance -217 -300 322 Weight 86.183 kg Intake: IV 20 Invasive Line 2 20 Oral 358 50 702 Output: Urine 575 350 400 Other: Voiding Method Indwelling Catheter Indwelling Catheter Indwelling Catheter - Exam Neuro- Exam is somewhat limited because of his cooperation. He is drowsy but is awake below to voice at. He is oriented to self and he stated the use of the hospital. He correctly stated that current year but could not tell me the month. He is able to follow simple commands. Language is limited but does not appear aphasic. No facial weakness. No dysarthria Motor: Strength is able to raise bilateral upper extremity above gravity. He has a above the left knee amputation. Some of the workup during this hospital visit consisted of: Again the urinalysis twice during this hospital visit on [phone] suggestive of underlying urinary tract infection. Patient's kidney function was trended up and now slightly trending down Urine culture as gram-negative bacilli. Lipid level is 27.5. B12 is 901. Ammonia is less than 9. CT of the head reported as no acute intracranial process. Nonspecific white matter changes, likely [employer] due to chronic small vessel ischemic disease. I personally reviewed the CT and agree with the report. Routine EEG is abnormal. The background slowing suggestive of mild encephalopathy likely due to metabolic derangement. Otherwise there is no focal slowing, epileptiform discharges or seizure on the EEG. Of note patient had TSH level done on 2022. The TSH was normal but the the free T4 was elevated. - Labs CBC & Chem 7: 12/27/22 07:44 12/27/22 07:44 Labs: Abnormal Lab Results - Last 24 Hours (Table) 12/27/22 12/27/22 12/28/22 Range/Units 16:30 20:49 11:31 POC Glucose (mg/dL) 292 H 195 H 130 H (70-110) mg/dL Microbiology - Last 24 Hours (Table) 12/26/22 12:28 Blood Culture - Preliminary Blood 12/26/22 08:25 Blood Culture - Preliminary Blood 12/25/22 21:00 Urine Culture - Preliminary Urine,Voided Gram Neg Bacilli Assessment and Plan Assessment: Altered mental status due to multifocal: Septic encephalopathy from underlying UTI, as well as metabolic encephalopathy with hyperglycemia and underlying worsening acute on chronic kidney insufficiency--mentation is improving. EEG is negative for seizure and CT head is negative. Episode of tremor (per nurse on 12/26/22)/myoclonic jerks: Seems more likely due to metabolic derangement and underlying infection. 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 Patient had a CT of the head and EEG. This the head was negative and the EEG was negative for seizure and discharges. EEG shows mild encephalopathy likely due to toxic metabolic derangement. TSH was a last done on 2022 so does not need to be repeated from a neurologic perspective. We'll defer the rest of the medical management to the primary team and other specialists. The plan was discussed with the patient's nurse. Otherwise no additional workup is needed. Please notify neurology team if any further concerns. Time with Patient: Less than 30
--- NOTE | 2022-12-28 15:52 | P.PN ---
Subjective Progress Note Date: 12/28/22 Principal diagnosis: Urinary tract infection Patient is a 67-year-old male with the multiple comorbidities including atrial fibrillation also have a history of diabetes mellitus diabetic foot infection, recently completed course of vancomycin for MRSA bacteremia, presented to hospital with tachycardia also noticed to have significantly cloudy urine concerning for UTI did have urinary retention requiring Gamble catheter placement On today's evaluation that is 12/28/2022, patient remains to be afebrile, the patient is breathing comfortably on 2 L oxygen denies any chest pain shortness of breath or cough no abdominal pain or diarrhea has been reported Objective - Vital Signs Vital signs: Vital Signs Temp 97.8 F 12/28/22 08:54 Pulse 80 12/28/22 08:54 Resp 16 12/28/22 08:54 BP 95/67 12/28/22 08:54 Pulse Ox 98 12/28/22 08:54 FiO2 Intake & Output 12/27/22 12/28/22 12/28/22 18:59 06:59 18:59 Intake Total 358 50 490 Output Total 575 350 250 Balance -217 -300 240 Weight 86.183 kg Intake: IV 10 Invasive Line 2 10 Oral 358 50 480 Output: Urine 575 350 250 Other: Voiding Method Indwelling Catheter Indwelling Catheter Indwelling Catheter - Exam GENERAL DESCRIPTION: An elderly male lying in bed in no distress RESPIRATORY SYSTEM: Unlabored breathing , decreased breath sounds at bases HEART: S1 S2 regular rate and rhythm , ABDOMEN: Soft , no tenderness EXTREMITIES: No edema feet to the right lower extremity - Labs CBC & Chem 7: 12/27/22 07:44 12/27/22 07:44 Labs: Abnormal Lab Results - Last 24 Hours (Table) 12/27/22 12/27/22 12/27/22 Range/Units 12:11 16:30 20:49 POC Glucose (mg/dL) 142 H 292 H 195 H (70-110) mg/dL 12/28/22 Range/Units 11:31 POC Glucose (mg/dL) 130 H (70-110) mg/dL Microbiology - Last 24 Hours (Table) 12/26/22 12:28 Blood Culture - Preliminary Blood 12/26/22 08:25 Blood Culture - Preliminary Blood 12/25/22 21:00 Urine Culture - Preliminary Urine,Voided Gram Neg Bacilli Assessment and Plan (1) Urinary tract infection Current Visit: Yes Status: Acute Code(s): N39.0 - URINARY TRACT INFECTION, SITE NOT SPECIFIED SNOMED Code(s): 52722823 Plan: 1patient with significantly positive UA urinary retention mental status changes concerning for possible symptomatic bradycardia likely from enteric gram-negative pathogen 2-patient also have a PICC line that was supposed to be discontinued after completion of antibiotic therapy 3-urine cultures are currently growing gram-negative with ID sensitivities are currently pending and blood cultures currently pending [facility] Time with Patient: Less than 30
--- NOTE | 2022-12-28 15:52 | P.PN ---
Subjective Progress Note Date: 12/27/22 Principal diagnosis: Urinary tract infection Patient is a 67-year-old male with the multiple comorbidities including atrial fibrillation also have a history of diabetes mellitus diabetic foot infection, recently completed course of vancomycin for MRSA bacteremia, presented to hospital with tachycardia also noticed to have significantly cloudy urine concerning for UTI did have urinary retention requiring Gamble catheter placement On today's evaluation that is 12/27/2022, patient is afebrile patient slightly more awake and alert today, the patient is breathing comfortably on 2 L oxygen denies any chest pain shortness of breath or cough no abdominal pain or diarrhea Objective - Vital Signs Vital signs: Vital Signs Temp 97.0 F L 12/27/22 12:43 Pulse 71 12/27/22 12:43 Resp 16 12/27/22 12:43 BP 102/71 12/27/22 12:43 Pulse Ox 92 L 12/27/22 12:43 FiO2 Intake & Output 12/26/22 12/27/22 12/27/22 18:59 06:59 18:59 Intake Total 0 118 Output Total 2499 1650 375 Balance -2499 -1650 -257 Weight 86.183 kg Intake: Oral 0 118 Output: Urine 1500 1650 375 Uretheral (Gamble) 800 Post Void Residual 999 Other: Voiding Method Indwelling Catheter Indwelling Catheter Indwelling Catheter - Exam GENERAL DESCRIPTION: An elderly male lying in bed in no distress RESPIRATORY SYSTEM: Unlabored breathing , decreased breath sounds at bases HEART: S1 S2 regular rate and rhythm , ABDOMEN: Soft , no tenderness EXTREMITIES: No edema feet to the right lower extremity - Labs CBC & Chem 7: 12/27/22 07:44 12/27/22 07:44 Labs: Abnormal Lab Results - Last 24 Hours (Table) 12/26/22 12/26/22 12/26/22 Range/Units 08:25 17:53 20:31 RBC (4.30-5.90) m/uL Hgb (13.0-17.5) gm/dL MCHC (31.0-37.0) g/dL RDW (11.5-15.5) % BUN (9-20) mg/dL Creatinine (0.66-1.25) mg/dL Glucose (74-99) mg/dL POC Glucose (mg/dL) 157 H 148 H (70-110) mg/dL Calcium (8.4-10.2) mg/dL Albumin (3.5-5.0) g/dL Procalcitonin 0.26 H (0.02-0.09) ng/mL 12/27/22 12/27/22 12/27/22 Range/Units 05:49 07:44 07:44 RBC 4.06 L (4.30-5.90) m/uL Hgb 12.3 L (13.0-17.5) gm/dL MCHC 30.8 L (31.0-37.0) g/dL RDW 16.7 H (11.5-15.5) % BUN 69 H (9-20) mg/dL Creatinine 2.08 H (0.66-1.25) mg/dL Glucose 112 H (74-99) mg/dL POC Glucose (mg/dL) 231 H (70-110) mg/dL Calcium 8.0 L (8.4-10.2) mg/dL Albumin 2.8 L (3.5-5.0) g/dL Procalcitonin (0.02-0.09) ng/mL 12/27/22 Range/Units 12:11 RBC (4.30-5.90) m/uL Hgb (13.0-17.5) gm/dL MCHC (31.0-37.0) g/dL RDW (11.5-15.5) % BUN (9-20) mg/dL Creatinine (0.66-1.25) mg/dL Glucose (74-99) mg/dL POC Glucose (mg/dL) 142 H (70-110) mg/dL Calcium (8.4-10.2) mg/dL Albumin (3.5-5.0) g/dL Procalcitonin (0.02-0.09) ng/mL Assessment and Plan (1) Urinary tract infection Current Visit: Yes Status: Acute Code(s): N39.0 - URINARY TRACT INFECTION, SITE NOT SPECIFIED SNOMED Code(s): 17509459 Plan: 1patient with significantly positive UA urinary retention mental status changes concerning for possible symptomatic bradycardia likely from enteric gram-negative pathogen 2-patient also have a PICC line that was supposed to be discontinued after completion of antibiotic therapy 3-urine and blood cultures currently pending 4Patient to [facility] while waiting for the culture to finalize Time with Patient: Less than 30
[2022-12-28 16:10] LABS: Glucose,Whole Blood 189 mg/dL (70-110)
[2022-12-28] MEDS: TAMSULOSIN 0.4 MG CAP.ER.24H PO SCH (16:41)
[2022-12-28 20:28] LABS: Glucose,Whole Blood 292 mg/dL (70-110)
[2022-12-28] MEDS: ATORVASTATIN 80 MG TAB PO SCH (21:38)
[2022-12-28] MEDS: NORTRIPTYLINE 25 MG CAP PO SCH (21:38)
[2022-12-28] MEDS: INSULIN DETEMIR (LEVEMIR) 100 UNIT/ML SYR SQ SCH (21:39)
[2022-12-29] MEDS: NITROGLYCERIN OINT 1 INCH/GM PACKET TOPICAL SCH ×5 (00:36→23:40)
[2022-12-29] MEDS: PIPERACILLIN-TAZOBACTAM 3.375 GM in SODIUM CHLORIDE 0.9% 100 ML IVPB SCH ×2 (00:36→09:50)
[2022-12-29 06:23] LABS: Glucose,Whole Blood 117 mg/dL (70-110)
[2022-12-29 09:52] LABS: African American GFR (CKD) 70 (>60 ml/min/1.73 sqM); Anion Gap 8 mmol/L; Blood Urea Nitrogen 51 mg/dL (9-20); Calcium 8.2 mg/dL (8.4-10.2); Carbon Dioxide 24 mmol/L (22-30); Chloride 108 mmol/L (98-107); Glucose 90 mg/dL (74-99); Non-African American GFR(CKD) 61 (>60 ml/min/1.73 sqM); Sodium 140 mmol/L (137-145)
[2022-12-29 09:58] LABS: Potassium 4.6 mmol/L (3.5-5.1)
[2022-12-29] MEDS: ASPIRIN 325 MG TAB PO SCH (10:17)
[2022-12-29] MEDS: MULTIVITAMINS, THERA 1 EACH TAB PO SCH (10:17)
[2022-12-29] MEDS: FERROUS SULFATE 325 MG TAB PO SCH ×2 (10:17→21:41)
[2022-12-29] MEDS: LIDOCAINE TRANSDERM SCH (10:17)
[2022-12-29] MEDS: TAMSULOSIN 0.4 MG CAP.ER.24H PO SCH (10:17)
[2022-12-29] MEDS: LORATADINE 10 MG TAB PO SCH (10:17)
[2022-12-29] MEDS: methIMAzole 5 MG TAB PO SCH ×3 (10:17→21:41)
[2022-12-29] MEDS: DIGOXIN 125 MCG TAB PO SCH (10:17)
[2022-12-29] MEDS: METOPROLOL TARTRATE 25 MG TAB PO SCH ×2 (10:18→21:41)
[2022-12-29] MEDS: PANTOPRAZOLE 40 MG TABLET PO SCH (10:18)
[2022-12-29] MEDS: SENNOSIDES 8.6 MG TAB PO SCH ×2 (10:18→21:41)
--- NOTE | 2022-12-29 10:35 | P.PN ---
Subjective Patient is seen in follow-up for acute kidney injury. Renal function has been improving. Resting in bed. On nasal cannula. Denies chest pain or shortness of breath. Has Gamble catheter for urinary retention. Nonoliguric. Oral intake fair. Mentation better today. Vital signs are stable. General: No acute distress. HEENT: Head exam is unremarkable. On nasal cannula. LUNGS: No audible rhonchi or wheezes. HEART: Rate and Rhythm are regular. ABDOMEN: Nontender. EXTREMITITES: Left BKA. Objective - Vital Signs Vital signs: Vital Signs Temp 97.8 F 12/29/22 09:53 Pulse 81 12/29/22 09:53 Resp 16 12/29/22 09:53 BP 102/47 12/29/22 09:53 Pulse Ox 90 L 12/29/22 09:53 FiO2 Intake & Output 12/28/22 12/29/22 12/29/22 18:59 06:59 18:59 Intake Total 840 240 Output Total 600 650 Balance 240 -650 240 Intake: IV 20 Invasive Line 2 20 Oral 820 240 Output: Urine 600 650 Other: Voiding Method Indwelling Catheter Indwelling Catheter Indwelling Catheter - Labs CBC & Chem 7: 12/27/22 07:44 12/29/22 08:57 Labs: Abnormal Lab Results - Last 24 Hours (Table) 12/28/22 12/28/22 12/28/22 Range/Units 11:31 16:08 20:26 Chloride (98-107) mmol/L BUN (9-20) mg/dL POC Glucose (mg/dL) 130 H 189 H 292 H (70-110) mg/dL Calcium (8.4-10.2) mg/dL 12/29/22 12/29/22 Range/Units 06:07 08:57 Chloride 108 H (98-107) mmol/L BUN 51 H (9-20) mg/dL POC Glucose (mg/dL) 117 H (70-110) mg/dL Calcium 8.2 L (8.4-10.2) mg/dL Microbiology - Last 24 Hours (Table) 12/25/22 21:00 Urine Culture - Final Urine,Voided Pseudomonas aeruginosa 12/26/22 12:28 Blood Culture - Preliminary Blood 12/26/22 08:25 Blood Culture - Preliminary Blood Assessment and Plan Plan: Assessment: 1. Acute kidney injury secondary to hemodynamic ATN further worsened with diuresis. Also component of urinary retention. Improving. Creatinine peaked at 2.4 for this admission and is 1.25 today. Mild left-sided hydronephrosis noted on ultrasound. Baseline creatinine near 1. 2. A. fib with RVR status post Cardizem drip. On digoxin and metoprolol. Cardiology following. 3. Pseudomonas UTI on antibiotics. 4. Altered mental status likely from underlying infection. 5. Urinary retention. Gamble catheter placed. On Flomax. 6. Diabetes mellitus. Plan: Off IV fluids. Encourage oral intake. Avoid nephrotoxins. Follow-up cultures. Continue to hold diuretics for now.
[2022-12-29 11:34] LABS: Glucose,Whole Blood 115 mg/dL (70-110)
[2022-12-29] MEDS: CEFEPIME 2 GM in SODIUM CHLORIDE 0.9% 100 ML IVPB SCH ×3 (11:45→23:39)
--- NOTE | 2022-12-29 13:18 | P.PN ---
Subjective Progress Note Date: 12/29/22 CHIEF COMPLAINT: Altered mental status HISTORY OF PRESENT ILLNESS: Patient presented with altered mental status and evidence of UTI and acute kidney injury. Surgical service following regards to acute on chronic cholecystitis. Patient has had poor oral intake. No nausea or vomiting reported. Denies abdominal pain. But does have mild tenderness right upper quadrant area. Afebrile. WBC 9.4 on 12/27 creatinine improved to 1.25 PHYSICAL EXAM: VITAL SIGNS: Reviewed. GENERAL: Well-developed in no acute distress. HEENT: No sclera icterus. Extraocular movements grossly intact. Moist buccal mucosa. Head is atraumatic, normocephalic. ABDOMEN: Soft. Nondistended. Right upper quadrant tenderness NEUROLOGIC: Alert and oriented. Cranial nerves II through XII grossly intact. ASSESSMENT: 1. Acute on chronic cholecystitis 2. Metabolic encephalopathy PLAN: -Continue to monitor -Continue antibiotics -Continue supportive care -Keep Pradaxa on hold for now Physician Second Watch Sergeant note has been reviewed by physician. Signing provider agrees with the documented findings, assessment, and plan of care. Objective - Vital Signs Vital signs: Vital Signs Temp 98.1 F 12/29/22 12:19 Pulse 80 12/29/22 12:19 Resp 18 12/29/22 12:19 BP 99/54 12/29/22 12:19 Pulse Ox 100 12/29/22 12:19 FiO2 Intake & Output 12/28/22 12/29/22 12/29/22 18:59 06:59 18:59 Intake Total 840 240 Output Total 600 650 Balance 240 -650 240 Intake: IV 20 Invasive Line 2 20 Oral 820 240 Output: Urine 600 650 Other: Voiding Method Indwelling Catheter Indwelling Catheter Indwelling Catheter - Labs CBC & Chem 7: 12/27/22 07:44 12/29/22 08:57 Labs: Abnormal Lab Results - Last 24 Hours (Table) 12/28/22 12/28/22 12/29/22 Range/Units 16:08 20:26 06:07 Chloride (98-107) mmol/L BUN (9-20) mg/dL POC Glucose (mg/dL) 189 H 292 H 117 H (70-110) mg/dL Calcium (8.4-10.2) mg/dL 12/29/22 12/29/22 Range/Units 08:57 11:30 Chloride 108 H (98-107) mmol/L BUN 51 H (9-20) mg/dL POC Glucose (mg/dL) 115 H (70-110) mg/dL Calcium 8.2 L (8.4-10.2) mg/dL Microbiology - Last 24 Hours (Table) 12/25/22 21:00 Urine Culture - Final Urine,Voided Pseudomonas aeruginosa 12/26/22 12:28 Blood Culture - Preliminary Blood 12/26/22 08:25 Blood Culture - Preliminary Blood
--- NOTE | 2022-12-29 13:26 | P.PN ---
Subjective Progress Note Date: 12/29/22 Principal diagnosis: Urinary tract infection Patient is a 67-year-old male with the multiple comorbidities including atrial fibrillation also have a history of diabetes mellitus diabetic foot infection, recently completed course of vancomycin for MRSA bacteremia, presented to hospital with tachycardia also noticed to have significantly cloudy urine concerning for UTI did have urinary retention requiring Gamble catheter placement On today's evaluation that is 12/29/2022, patient continues to be afebrile, the patient is breathing comfortably on 2 L oxygen , the patient is sleepy lethargic and cannot provide any history no vomiting diarrhea or any changes reported by the nursing staff Objective - Vital Signs Vital signs: Vital Signs Temp 97.8 F 12/29/22 09:53 Pulse 81 12/29/22 09:53 Resp 16 12/29/22 09:53 BP 102/47 12/29/22 09:53 Pulse Ox 90 L 12/29/22 09:53 FiO2 Intake & Output 12/28/22 12/29/22 12/29/22 18:59 06:59 18:59 Intake Total 840 Output Total 600 650 Balance 240 -650 Intake: IV 20 Invasive Line 2 20 Oral 820 Output: Urine 600 650 Other: Voiding Method Indwelling Catheter Indwelling Catheter - Exam GENERAL DESCRIPTION: An elderly male lying in bed in no distress RESPIRATORY SYSTEM: Unlabored breathing , decreased breath sounds at bases HEART: S1 S2 regular rate and rhythm , ABDOMEN: Soft , no tenderness EXTREMITIES: No edema feet to the right lower extremity - Labs CBC & Chem 7: 12/27/22 07:44 12/29/22 08:57 Labs: Abnormal Lab Results - Last 24 Hours (Table) 12/28/22 12/28/22 12/28/22 Range/Units 11:31 16:08 20:26 Chloride (98-107) mmol/L BUN (9-20) mg/dL POC Glucose (mg/dL) 130 H 189 H 292 H (70-110) mg/dL Calcium (8.4-10.2) mg/dL 12/29/22 12/29/22 Range/Units 06:07 08:57 Chloride 108 H (98-107) mmol/L BUN 51 H (9-20) mg/dL POC Glucose (mg/dL) 117 H (70-110) mg/dL Calcium 8.2 L (8.4-10.2) mg/dL Microbiology - Last 24 Hours (Table) 12/25/22 21:00 Urine Culture - Final Urine,Voided Pseudomonas aeruginosa 12/26/22 12:28 Blood Culture - Preliminary Blood 12/26/22 08:25 Blood Culture - Preliminary Blood Assessment and Plan (1) Urinary tract infection Current Visit: Yes Status: Acute Code(s): N39.0 - URINARY TRACT INFECTION, SITE NOT SPECIFIED SNOMED Code(s): 60249854 Plan: 1patient with significantly positive UA urinary retention mental status changes concerning for possible symptomatic bradycardia likely from enteric gram-negative pathogen 2-patient also have a PICC line that was supposed to be discontinued after completion of antibiotic therapy 3-urine cultures are currently growing pseudomonas aeruginosa that is resistant to Zosyn and we will discontinue Zosyn and start the patient on cefepime however will be able to finish therapy with oral Cipro hence PICC line can be discontinued, which is currently not in use Time with Patient: Less than 30
[2022-12-29 16:45] LABS: Glucose,Whole Blood 108 mg/dL (70-110)
[2022-12-29 20:48] LABS: Glucose,Whole Blood 182 mg/dL (70-110)
[2022-12-29] MEDS: ATORVASTATIN 80 MG TAB PO SCH (21:41)
[2022-12-29] MEDS: INSULIN DETEMIR (LEVEMIR) 100 UNIT/ML SYR SQ SCH (21:41)
[2022-12-29] MEDS: NORTRIPTYLINE 25 MG CAP PO SCH (21:41)
[2022-12-30] MEDS: NITROGLYCERIN OINT 1 INCH/GM PACKET TOPICAL SCH ×3 (04:46→17:05)
[2022-12-30 06:16] LABS: Glucose,Whole Blood 106 mg/dL (70-110)
[2022-12-30] MEDS: LIDOCAINE TRANSDERM SCH (08:51)
[2022-12-30] MEDS: METOPROLOL TARTRATE 25 MG TAB PO SCH (08:55)
[2022-12-30] MEDS: DIGOXIN 125 MCG TAB PO SCH (08:55)
[2022-12-30] MEDS: methIMAzole 5 MG TAB PO SCH ×2 (08:55→15:30)
[2022-12-30] MEDS: FERROUS SULFATE 325 MG TAB PO SCH (08:55)
[2022-12-30] MEDS: ASPIRIN 325 MG TAB PO SCH (08:55)
[2022-12-30] MEDS: CEFEPIME 2 GM in SODIUM CHLORIDE 0.9% 100 ML IVPB SCH ×2 (08:55→15:33)
[2022-12-30] MEDS: MULTIVITAMINS, THERA 1 EACH TAB PO SCH (08:55)
[2022-12-30] MEDS: LORATADINE 10 MG TAB PO SCH (08:55)
[2022-12-30] MEDS: PANTOPRAZOLE 40 MG TABLET PO SCH (08:55)
[2022-12-30] MEDS: TAMSULOSIN 0.4 MG CAP.ER.24H PO SCH (08:55)
[2022-12-30] MEDS: SENNOSIDES 8.6 MG TAB PO SCH (08:55)
--- NOTE | 2022-12-30 11:10 | P.PN ---
Subjective Patient is seen in follow-up for acute kidney injury. Renal function has been improving. Creatinine 1.25 yesterday. Resting in bed. On nasal cannula. Denies chest pain or shortness of breath. Has Gamble catheter for urinary retention. Nonoliguric. Oral intake fair. Vital signs are stable. General: No acute distress. HEENT: Head exam is unremarkable. On nasal cannula. LUNGS: No audible rhonchi or wheezes. HEART: Rate and Rhythm are regular. ABDOMEN: Nontender. EXTREMITITES: Left BKA. Objective - Vital Signs Vital signs: Vital Signs Temp 98 F 12/30/22 08:00 Pulse 52 L 12/30/22 08:00 Resp 17 12/30/22 08:00 BP 106/73 12/30/22 08:00 Pulse Ox 99 12/30/22 09:11 FiO2 Intake & Output 12/29/22 12/30/22 12/30/22 18:59 06:59 18:59 Intake Total 240 Output Total 200 700 Balance 40 -700 Intake: Oral 240 Output: Urine 200 700 Other: Voiding Method Indwelling Catheter Indwelling Catheter Indwelling Catheter # Bowel Movements 0 - Labs CBC & Chem 7: 12/27/22 07:44 12/29/22 08:57 Labs: Abnormal Lab Results - Last 24 Hours (Table) 12/29/22 12/29/22 Range/Units 11:30 20:46 POC Glucose (mg/dL) 115 H 182 H (70-110) mg/dL Microbiology - Last 24 Hours (Table) 12/26/22 12:28 Blood Culture - Preliminary Blood 12/26/22 08:25 Blood Culture - Preliminary Blood 12/25/22 21:00 Urine Culture - Final Urine,Voided Pseudomonas aeruginosa Assessment and Plan Plan: Assessment: 1. Acute kidney injury secondary to hemodynamic ATN further worsened with diuresis. Also component of urinary retention. Improving. Creatinine peaked at 2.4 for this admission - 1.25 yesterday. hydronephrosis noted on ultrasound. Baseline creatinine near 1. 2. A. fib with RVR status post Cardizem drip. On digoxin and metoprolol. Cardiology following. 3. Pseudomonas UTI on antibiotics. 4. Altered mental status likely from underlying infection. 5. Urinary retention. Gamble catheter placed. On Flomax. 6. Diabetes mellitus. Plan: Off IV fluids. Encourage oral intake. Avoid nephrotoxins. Continue to hold diuretics for now.
--- NOTE | 2022-12-30 11:43 | P.PN ---
Subjective Progress Note Date: 12/30/22 CHIEF COMPLAINT: Altered mental status HISTORY OF PRESENT ILLNESS: Patient presented with altered mental status and evidence of UTI and acute kidney injury. Surgical service following regards to acute on chronic cholecystitis. Patient has had poor oral intake. No nausea or vomiting reported. Denies abdominal pain. He is resting comfortably. Afebrile. WBC 9.4 on 12/27 Patient seen and examined with Dr. charles PHYSICAL EXAM: VITAL SIGNS: Reviewed. GENERAL: Well-developed in no acute distress. HEENT: No sclera icterus. Extraocular movements grossly intact. Moist buccal mucosa. Head is atraumatic, normocephalic. ABDOMEN: Soft. Nondistended. NEUROLOGIC: Alert and oriented. Cranial nerves II through XII grossly intact. ASSESSMENT: 1. Acute on chronic cholecystitis 2. Metabolic encephalopathy PLAN: -No plans for any surgical intervention -Continue supportive care -Continue antibiotics -Okay to resume Pradaxa Physician Roofing Applicator note has been reviewed by physician. Signing provider agrees with the documented findings, assessment, and plan of care. Objective - Vital Signs Vital signs: Vital Signs Temp 98.1 F 12/30/22 04:00 Pulse 91 12/30/22 04:00 Resp 16 12/30/22 04:00 BP 99/60 12/30/22 04:00 Pulse Ox 97 12/30/22 04:00 FiO2 Intake & Output 12/29/22 12/30/22 12/30/22 18:59 06:59 18:59 Intake Total 240 Output Total 200 700 Balance 40 -700 Intake: Oral 240 Output: Urine 200 700 Other: Voiding Method Indwelling Catheter Indwelling Catheter # Bowel Movements 0 - Labs CBC & Chem 7: 12/27/22 07:44 12/29/22 08:57 Labs: Abnormal Lab Results - Last 24 Hours (Table) 12/29/22 12/29/22 12/29/22 Range/Units 08:57 11:30 20:46 Chloride 108 H (98-107) mmol/L BUN 51 H (9-20) mg/dL POC Glucose (mg/dL) 115 H 182 H (70-110) mg/dL Calcium 8.2 L (8.4-10.2) mg/dL Microbiology - Last 24 Hours (Table) 12/26/22 12:28 Blood Culture - Preliminary Blood 12/26/22 08:25 Blood Culture - Preliminary Blood 12/25/22 21:00 Urine Culture - Final Urine,Voided Pseudomonas aeruginosa
[2022-12-30 12:18] LABS: Glucose,Whole Blood 91 mg/dL (70-110)
--- NOTE | 2022-12-30 13:36 | P.PN ---
Subjective Progress Note Date: 12/30/22 Patient is a 67-year-old male with the multiple comorbidities including atrial fibrillation also have a history of diabetes mellitus diabetic foot infection, recently completed course of vancomycin for MRSA bacteremia, presented to hospital with tachycardia also noticed to have significantly cloudy urine concerning for UTI did have urinary retention requiring Gamble catheter placement patient was being seen by ID, nephrology and cardiology during the hospital stay 12/30. Dr. Arauz covering for Dr. Bhakta. Patient seen and examined. Laying in the bed, patient is lethargic. Denies any nausea or vomiting. Denies abdominal pain REVIEW OF SYSTEMS: CONSTITUTIONAL: No fever, no malaise,. CARDIOVASCULAR: No chest pain, no palpitations, no syncope. PULMONARY: No shortness of breath, no cough, GASTROINTESTINAL: No diarrhea, no nausea, no vomiting, no abdominal pain. NEUROLOGICAL: No headaches, no weakness, PHYSICAL EXAMINATION: GENERAL: The patient is alert and oriented x3, not in any acute distress. Well developed, well nourished. HEENT: Pupils are round and equally reacting to light. EOMI. No scleral icterus. No conjunctival pallor. Normocephalic, atraumatic. No pharyngeal erythema. No thyromegaly. CARDIOVASCULAR: S1 and S2 present. No murmurs, rubs, or gallops. PULMONARY: Chest is clear to auscultation, no wheezing or crackles. ABDOMEN: Soft, nontender, nondistended, normoactive bowel sounds. No palpable organomegaly. MUSCULOSKELETAL: Left AKA EXTREMITIES: No cyanosis, clubbing, or pedal edema. NEUROLOGICAL: Gross neurological examination did not reveal any focal deficits. SKIN: No rashes. Assessment and plan Acute kidney injury metabolic encephalopathy A. fib with RVR Pseudomonas UTI on antibiotics. Altered mental status likely from underlying infection. Urinary retention. Gamble catheter placed. On Flomax. Diabetes mellitus acute on chronic cholecystitis Monitor vital signs Monitor CBC Monitor CMP Continue telemetry monitoring monitor renal functions Continue digoxin and metoprolol follow-up on urine cultures Continue IV cefepime Gen. surgery on board, recommend holding Pradaxa for now for possible surgical intervention follow-up in ID recommendations Follow-up on cardiology Objective - Vital Signs Vital signs: Vital Signs Temp 98.1 F 12/30/22 04:00 Pulse 91 12/30/22 04:00 Resp 16 12/30/22 04:00 BP 99/60 12/30/22 04:00 Pulse Ox 99 12/30/22 09:11 FiO2 Intake & Output 12/29/22 12/30/22 12/30/22 18:59 06:59 18:59 Intake Total 240 Output Total 200 700 Balance 40 -700 Intake: Oral 240 Output: Urine 200 700 Other: Voiding Method Indwelling Catheter Indwelling Catheter # Bowel Movements 0 - Labs CBC & Chem 7: 12/27/22 07:44 12/29/22 08:57 Labs: Abnormal Lab Results - Last 24 Hours (Table) 12/29/22 12/29/22 Range/Units 11:30 20:46 POC Glucose (mg/dL) 115 H 182 H (70-110) mg/dL Microbiology - Last 24 Hours (Table) 12/26/22 12:28 Blood Culture - Preliminary Blood 12/26/22 08:25 Blood Culture - Preliminary Blood 12/25/22 21:00 Urine Culture - Final Urine,Voided Pseudomonas aeruginosa
[2022-12-30 17:02] LABS: Glucose,Whole Blood 154 mg/dL (70-110)
[2022-12-30 20:28] LABS: Glucose,Whole Blood 156 mg/dL (70-110)
[2022-12-31] MEDS: METOPROLOL TARTRATE 25 MG TAB PO SCH ×3 (00:04→22:30)
[2022-12-31] MEDS: ATORVASTATIN 80 MG TAB PO SCH ×2 (00:04→22:30)
[2022-12-31] MEDS: SENNOSIDES 8.6 MG TAB PO SCH ×3 (00:04→21:42)
[2022-12-31] MEDS: FERROUS SULFATE 325 MG TAB PO SCH ×3 (00:04→22:30)
[2022-12-31] MEDS: INSULIN DETEMIR (LEVEMIR) 100 UNIT/ML SYR SQ SCH ×2 (00:04→22:33)
[2022-12-31] MEDS: NORTRIPTYLINE 25 MG CAP PO SCH ×2 (00:04→22:30)
[2022-12-31] MEDS: methIMAzole 5 MG TAB PO SCH ×3 (00:05→16:07)
[2022-12-31] MEDS: NITROGLYCERIN OINT 1 INCH/GM PACKET TOPICAL SCH ×4 (00:05→17:26)
[2022-12-31] MEDS: CEFEPIME 2 GM in SODIUM CHLORIDE 0.9% 100 ML IVPB SCH ×3 (00:05→16:08)
[2022-12-31 06:11] LABS: Glucose,Whole Blood 122 mg/dL (70-110)
[2022-12-31 09:06] LABS: African American GFR (CKD) 87 (>60 ml/min/1.73 sqM); Anion Gap 7 mmol/L; Blood Urea Nitrogen 33 mg/dL (9-20); Calcium 8.4 mg/dL (8.4-10.2); Carbon Dioxide 24 mmol/L (22-30); Chloride 111 mmol/L (98-107); Glucose 110 mg/dL (74-99); Magnesium 1.9 mg/dL (1.6-2.3); Non-African American GFR(CKD) 75 (>60 ml/min/1.73 sqM); Sodium 142 mmol/L (137-145)
[2022-12-31] MEDS: MULTIVITAMINS, THERA 1 EACH TAB PO SCH (09:08)
[2022-12-31] MEDS: PANTOPRAZOLE 40 MG TABLET PO SCH (09:08)
[2022-12-31] MEDS: LORATADINE 10 MG TAB PO SCH (09:08)
[2022-12-31] MEDS: ASPIRIN 325 MG TAB PO SCH (09:08)
[2022-12-31] MEDS: DIGOXIN 125 MCG TAB PO SCH (09:08)
[2022-12-31] MEDS: TAMSULOSIN 0.4 MG CAP.ER.24H PO SCH (09:09)
[2022-12-31] MEDS: LIDOCAINE TRANSDERM SCH (09:10)
[2022-12-31] MEDS: HYDROcodone/APAP 7.5-325MG 1 EACH TAB PO PRN (09:11)
[2022-12-31 11:50] LABS: Glucose,Whole Blood 190 mg/dL (70-110)
--- NOTE | 2022-12-31 13:30 | P.PN ---
Subjective Progress Note Date: 12/31/22 Patient seen at bedside in the he feels his own drastically better. According to the nurse that she agrees that he's doing much better. No further confusion that. He could not get MRI of the brain because he has a [place] filter. Objective - Vital Signs Vital signs: Vital Signs Temp 97.7 F 12/31/22 09:00 Pulse 65 12/31/22 12:15 Resp 16 12/31/22 12:15 BP 109/66 12/31/22 12:15 Pulse Ox 96 12/31/22 12:15 FiO2 21 12/31/22 08:15 Intake & Output 12/30/22 12/31/22 12/31/22 18:59 06:59 18:59 Output Total 300 700 Balance -300 -700 Weight 72 kg Output: Urine 300 700 Other: Voiding Method Indwelling Catheter Indwelling Catheter # Bowel Movements 0 - Exam Neuro- Patient is awake alert oriented to self, he correctly stated the year but stated it was January. He quit as stated he was in the hospital. He is able to name objects such as a pen and watch. No aphasia. No facial weakness. No dysarthria Motor: Strength is able to raise bilateral upper extremity above gravity. He has a above the left knee amputation. No focal deficit. Some of the workup during this hospital visit consisted of: Again the urinalysis twice during this hospital visit on [id number] suggestive of underlying urinary tract infection. Patient's kidney function was trended up and now slightly trending down Urine culture pseudomonas aeruginosa Lipid level is 27.5. B12 is 901. Ammonia is less than 9. CT of the head reported as no acute intracranial process. Nonspecific white matter changes, likely [employer] due to chronic small vessel ischemic disease. I personally reviewed the CT and agree with the report. Routine EEG is abnormal. The background slowing suggestive of mild encephalopathy likely due to metabolic derangement. Otherwise there is no focal slowing, epileptiform discharges or seizure on the EEG. Of note patient had TSH level done on 2022. The TSH was normal but the the free T4 was elevated. - Labs CBC & Chem 7: 12/27/22 07:44 12/31/22 08:21 Labs: Abnormal Lab Results - Last 24 Hours (Table) 12/30/22 12/30/22 12/31/22 Range/Units 17:00 20:26 06:10 Chloride (98-107) mmol/L BUN (9-20) mg/dL Glucose (74-99) mg/dL POC Glucose (mg/dL) 154 H 156 H 122 H (70-110) mg/dL 12/31/22 12/31/22 Range/Units 08:21 11:48 Chloride 111 H (98-107) mmol/L BUN 33 H (9-20) mg/dL Glucose 110 H (74-99) mg/dL POC Glucose (mg/dL) 190 H (70-110) mg/dL Assessment and Plan Assessment: Altered mental status due to multifocal: Septic encephalopathy from underlying UTI, as well as metabolic encephalopathy with hyperglycemia and underlying worsening acute on chronic kidney insufficiency--mentation is improved EEG is negative for seizure and CT head is negative. Episode of tremor (per nurse on 12/26/22)/myoclonic jerks: Seems more likely due to metabolic derangement and underlying infection. 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 Patient had a CT of the head and EEG. This the head was negative and the EEG was negative for seizure and discharges. EEG shows mild encephalopathy likely due to toxic metabolic derangement. TSH was a last done on 2022 so does not need to be repeated from a neurologic perspective. We'll defer the rest of the medical management to the primary team and other specialists. The plan was discussed with the patient's nurse. Otherwise no additional workup is needed. Will sign off. Please notify neurology team if any further concerns. Time with Patient: Less than 30
--- NOTE | 2022-12-31 14:53 | P.PN ---
Subjective Progress Note Date: 12/31/22 Patient is a 67-year-old male with the multiple comorbidities including atrial fibrillation also have a history of diabetes mellitus diabetic foot infection, recently completed course of vancomycin for MRSA bacteremia, presented to hospital with tachycardia also noticed to have significantly cloudy urine concerning for UTI did have urinary retention requiring Gamble catheter placement patient was being seen by ID, nephrology and cardiology during the hospital stay 12/30. Dr. Arauz covering for Dr. Bhakta. Patient seen and examined. Laying in the bed, patient is lethargic. Denies any nausea or vomiting. Denies abdominal pain 12/31. Patient seen and examined. Patient not participating in any patient care activities, did not allow nursing staff to clean him. States he is okay denies any acute issues. REVIEW OF SYSTEMS: CONSTITUTIONAL: No fever, no malaise,. CARDIOVASCULAR: No chest pain, no palpitations, no syncope. PULMONARY: No shortness of breath, no cough, GASTROINTESTINAL: No diarrhea, no nausea, no vomiting, no abdominal pain. NEUROLOGICAL: No headaches, no weakness, PHYSICAL EXAMINATION: GENERAL: The patient is alert, not in any acute distress. Well developed, well nourished. HEENT: Pupils are round and equally reacting to light. EOMI. No scleral icterus. No conjunctival pallor. Normocephalic, atraumatic. No pharyngeal erythema. No thyromegaly. CARDIOVASCULAR: S1 and S2 present. No murmurs, rubs, or gallops. PULMONARY: Chest is clear to auscultation, no wheezing or crackles. ABDOMEN: Soft, nontender, nondistended, normoactive bowel sounds. No palpable organomegaly. MUSCULOSKELETAL: Left AKA EXTREMITIES: No cyanosis, clubbing, or pedal edema. NEUROLOGICAL: Gross neurological examination did not reveal any focal deficits. SKIN: No rashes. Assessment and plan Acute kidney injury metabolic encephalopathy A. fib with RVR Pseudomonas UTI on antibiotics. Altered mental status likely from underlying infection. Urinary retention. Gamble catheter placed. On Flomax. Diabetes mellitus acute on chronic cholecystitis Monitor vital signs Monitor CBC Monitor CMP Continue telemetry monitoring monitor renal functions Continue digoxin and metoprolol follow-up on urine cultures Continue IV cefepime Gen. surgery on board, recommend holding Pradaxa for now for possible surgical intervention follow-up in ID recommendations Follow-up on cardiology Neurology following Objective - Vital Signs Vital signs: Vital Signs Temp 97.7 F 12/31/22 09:00 Pulse 65 12/31/22 12:15 Resp 16 12/31/22 12:15 BP 109/66 12/31/22 12:15 Pulse Ox 96 12/31/22 12:15 FiO2 21 12/31/22 08:15 Intake & Output 12/30/22 12/31/22 12/31/22 18:59 06:59 18:59 Output Total 300 700 Balance -300 -700 Weight 72 kg Output: Urine 300 700 Other: Voiding Method Indwelling Catheter Indwelling Catheter # Bowel Movements 0 - Labs CBC & Chem 7: 12/27/22 07:44 12/31/22 08:21 Labs: Abnormal Lab Results - Last 24 Hours (Table) 12/30/22 12/30/22 12/31/22 Range/Units 17:00 20:26 06:10 Chloride (98-107) mmol/L BUN (9-20) mg/dL Glucose (74-99) mg/dL POC Glucose (mg/dL) 154 H 156 H 122 H (70-110) mg/dL 12/31/22 12/31/22 Range/Units 08:21 11:48 Chloride 111 H (98-107) mmol/L BUN 33 H (9-20) mg/dL Glucose 110 H (74-99) mg/dL POC Glucose (mg/dL) 190 H (70-110) mg/dL
--- NOTE | 2022-12-31 16:43 | P.PN ---
Subjective Progress Note Date: 12/31/22 Resting comfortably. No new complaints. WBC normal. Gamble catheter clear. Objective - Vital Signs Vital signs: Vital Signs Temp 97.7 F 12/31/22 09:00 Pulse 67 12/31/22 16:04 Resp 16 12/31/22 16:04 BP 87/52 12/31/22 16:04 Pulse Ox 98 12/31/22 16:04 FiO2 21 12/31/22 08:15 Intake & Output 12/30/22 12/31/22 12/31/22 18:59 06:59 18:59 Output Total 300 700 Balance -300 -700 Weight 72 kg Output: Urine 300 700 Other: Voiding Method Indwelling Catheter Indwelling Catheter # Bowel Movements 0 - Labs CBC & Chem 7: 12/27/22 07:44 12/31/22 08:21 Labs: Abnormal Lab Results - Last 24 Hours (Table) 12/30/22 12/30/22 12/31/22 Range/Units 17:00 20:26 06:10 Chloride (98-107) mmol/L BUN (9-20) mg/dL Glucose (74-99) mg/dL POC Glucose (mg/dL) 154 H 156 H 122 H (70-110) mg/dL 12/31/22 12/31/22 Range/Units 08:21 11:48 Chloride 111 H (98-107) mmol/L BUN 33 H (9-20) mg/dL Glucose 110 H (74-99) mg/dL POC Glucose (mg/dL) 190 H (70-110) mg/dL
[2022-12-31 16:47] LABS: Glucose,Whole Blood 158 mg/dL (70-110)
[2022-12-31 20:27] LABS: Glucose,Whole Blood 149 mg/dL (70-110)
[2023-01-01] MEDS: methIMAzole 5 MG TAB PO SCH ×4 (00:50→21:21)
[2023-01-01] MEDS: NITROGLYCERIN OINT 1 INCH/GM PACKET TOPICAL SCH ×4 (00:51→17:55)
[2023-01-01] MEDS: CEFEPIME 2 GM in SODIUM CHLORIDE 0.9% 100 ML IVPB SCH ×3 (00:56→18:02)
[2023-01-01 08:21] LABS: Anisocytosis Slight; HCT 37.4 % (39.0-53.0); HGB 11.6 gm/dL (13.0-17.5); Hypochromasia Marked; MCH 30.9 pg (25.0-35.0); MCHC 31.1 g/dL (31.0-37.0); MCV 99.2 fL (80.0-100.0); Macrocytosis Slight; Mean Platelet Volume 8.6; Platelet Count 298 k/uL (150-450); RBC 3.77 m/uL (4.30-5.90); RDW 16.5 % (11.5-15.5)
[2023-01-01 08:32] LABS: ALT 16 U/L (4-49); AST 18 U/L (17-59); African American GFR (CKD) 89 (>60 ml/min/1.73 sqM); Albumin 2.9 g/dL (3.5-5.0); Alkaline Phosphatase 110 U/L (38-126); Anion Gap 7 mmol/L; Blood Urea Nitrogen 28 mg/dL (9-20); Calcium 8.5 mg/dL (8.4-10.2); Carbon Dioxide 26 mmol/L (22-30); Chloride 109 mmol/L (98-107); Glucose 120 mg/dL (74-99); Non-African American GFR(CKD) 77 (>60 ml/min/1.73 sqM); Potassium 4.4 mmol/L (3.5-5.1); Sodium 142 mmol/L (137-145); Total Bilirubin 0.7 mg/dL (0.2-1.3); Total Protein 6.8 g/dL (6.3-8.2)
[2023-01-01] MEDS: PANTOPRAZOLE 40 MG TABLET PO SCH (11:12)
[2023-01-01] MEDS: FERROUS SULFATE 325 MG TAB PO SCH ×2 (11:12→21:21)
[2023-01-01] MEDS: DIGOXIN 125 MCG TAB PO SCH (11:12)
[2023-01-01] MEDS: MULTIVITAMINS, THERA 1 EACH TAB PO SCH (11:12)
[2023-01-01] MEDS: SENNOSIDES 8.6 MG TAB PO SCH ×2 (11:12→21:21)
[2023-01-01] MEDS: ASPIRIN 325 MG TAB PO SCH (11:12)
[2023-01-01] MEDS: TAMSULOSIN 0.4 MG CAP.ER.24H PO SCH (11:12)
[2023-01-01] MEDS: METOPROLOL TARTRATE 25 MG TAB PO SCH ×2 (11:12→21:21)
[2023-01-01] MEDS: LORATADINE 10 MG TAB PO SCH (11:13)
[2023-01-01] MEDS: HYDROcodone/APAP 7.5-325MG 1 EACH TAB PO PRN (11:21)
[2023-01-01 11:48] LABS: Glucose,Whole Blood 125 mg/dL (70-110)
--- NOTE | 2023-01-01 13:57 | P.PN ---
Subjective Progress Note Date: 01/01/23 Patient is a 67-year-old male with the multiple comorbidities including atrial fibrillation also have a history of diabetes mellitus diabetic foot infection, recently completed course of vancomycin for MRSA bacteremia, presented to hospital with tachycardia also noticed to have significantly cloudy urine concerning for UTI did have urinary retention requiring Gamble catheter placement patient was being seen by ID, nephrology and cardiology during the hospital stay 12/30. Dr. Arauz covering for Dr. Bhakta. Patient seen and examined. Laying in the bed, patient is lethargic. Denies any nausea or vomiting. Denies abdominal pain 12/31. Patient seen and examined. Patient not participating in any patient care activities, did not allow nursing staff to clean him. States he is okay denies any acute issues. 01/01. Patient seen and examined. Patient has some wounds on his buttocks, wou nd care consulted. Patient much more cooperative and participating in treatment. Complaint of pain in his left stump REVIEW OF SYSTEMS: CONSTITUTIONAL: No fever, no malaise,. CARDIOVASCULAR: No chest pain, no palpitations, no syncope. PULMONARY: No shortness of breath, no cough, GASTROINTESTINAL: No diarrhea, no nausea, no vomiting, no abdominal pain. NEUROLOGICAL: No headaches, no weakness, PHYSICAL EXAMINATION: GENERAL: The patient is alert, not in any acute distress. Well developed, well nourished. HEENT: Pupils are round and equally reacting to light. EOMI. No scleral icterus. No conjunctival pallor. Normocephalic, atraumatic. No pharyngeal erythema. No t hyromegaly. CARDIOVASCULAR: S1 and S2 present. No murmurs, rubs, or gallops. PULMONARY: Chest is clear to auscultation, no wheezing or crackles. ABDOMEN: Soft, nontender, nondistended, normoactive bowel sounds. No palpable organomegaly. MUSCULOSKELETAL: Left AKA EXTREMITIES: No cyanosis, clubbing, or pedal edema. NEUROLOGICAL: Gross neurological examination did not reveal any focal deficits. SKIN: No rashes. Assessment and plan Acute kidney injury metabolic encephalopathy A. fib with RVR Pseudomonas UTI on antibiotics. Altered mental status likely from underlying infection. Urinary retention. Gamble catheter placed. On Flomax. Diabetes mellitus acute on chronic cholecystitis Monitor vital signs Monitor CBC Monitor CMP Continue telemetry monitoring monitor renal functions Consult Wound Care Continue digoxin and metoprolol follow-up on urine cultures Continue IV cefepime Gen. surgery on board, recommend holding Pradaxa for now for possible surgical intervention follow-up in ID recommendations Follow-up on cardiology Neurology following Objective - Vital Signs Vital signs: Vital Signs Temp 98.0 F 01/01/23 10:40 Pulse 68 01/01/23 10:40 Resp 16 01/01/23 10:40 BP 149/70 01/01/23 10:40 Pulse Ox 98 01/01/23 10:40 FiO2 21 12/31/22 08:15 Intake & Output 12/31/22 01/01/23 01/01/23 18:59 06:59 18:59 Intake Total 220 Output Total 425 400 Balance -205 -400 Intake: Oral 220 Output: Urine 425 400 Other: Voiding Method Indwelling Catheter Indwelling Catheter Indwelling Catheter - Labs CBC & Chem 7: 01/01/23 06:50 01/01/23 06:50 Labs: Abnormal Lab Results - Last 24 Hours (Table) 12/31/22 12/31/22 01/01/23 Range/Units 16:46 20:24 06:50 RBC 3.77 L (4.30-5.90) m/uL Hgb 11.6 L (13.0-17.5) gm/dL Hct 37.4 L (39.0-53.0) % RDW 16.5 H (11.5-15.5) % Chloride (98-107) mmol/L BUN (9-20) mg/dL Glucose (74-99) mg/dL POC Glucose (mg/dL) 158 H 149 H (70-110) mg/dL Albumin (3.5-5.0) g/dL 01/01/23 01/01/23 Range/Units 06:50 11:45 RBC (4.30-5.90) m/uL Hgb (13.0-17.5) gm/dL Hct (39.0-53.0) % RDW (11.5-15.5) % Chloride 109 H (98-107) mmol/L BUN 28 H (9-20) mg/dL Glucose 120 H (74-99) mg/dL POC Glucose (mg/dL) 125 H (70-110) mg/dL Albumin 2.9 L (3.5-5.0) g/dL Microbiology - Last 24 Hours (Table) 12/26/22 12:28 Blood Culture - Final Blood 12/26/22 08:25 Blood Culture - Final Blood
[2023-01-01] MEDS: LIDOCAINE TRANSDERM SCH (17:54)
[2023-01-01] MEDS: NORTRIPTYLINE 25 MG CAP PO SCH (21:21)
[2023-01-01] MEDS: INSULIN DETEMIR (LEVEMIR) 100 UNIT/ML SYR SQ SCH (21:21)
[2023-01-01] MEDS: ATORVASTATIN 80 MG TAB PO SCH (21:21)
--- NOTE | 2023-01-01 22:25 | P.PN ---
Subjective Progress Note Date: 01/01/23 Principal diagnosis: Patient denies any abdominal pain. Otherwise no new issues. No surgical intervention. Objective - Vital Signs Vital signs: Vital Signs Temp 97.4 F L 01/01/23 12:00 Pulse 80 01/01/23 12:00 Resp 16 01/01/23 14:00 BP 117/67 01/01/23 12:00 Pulse Ox 98 01/01/23 12:00 FiO2 21 12/31/22 08:15 Intake & Output 01/01/23 01/01/23 01/02/23 06:59 18:59 06:59 Output Total 400 Balance -400 Output: Urine 400 Other: Voiding Method Indwelling Catheter Indwelling Catheter - Labs CBC & Chem 7: 01/01/23 06:50 01/01/23 06:50 Labs: Abnormal Lab Results - Last 24 Hours (Table) 01/01/23 01/01/23 01/01/23 Range/Units 06:50 06:50 11:45 RBC 3.77 L (4.30-5.90) m/uL Hgb 11.6 L (13.0-17.5) gm/dL Hct 37.4 L (39.0-53.0) % RDW 16.5 H (11.5-15.5) % Chloride 109 H (98-107) mmol/L BUN 28 H (9-20) mg/dL Glucose 120 H (74-99) mg/dL POC Glucose (mg/dL) 125 H (70-110) mg/dL Albumin 2.9 L (3.5-5.0) g/dL
[2023-01-02] MEDS: CEFEPIME 2 GM in SODIUM CHLORIDE 0.9% 100 ML IVPB SCH ×4 (01:29→23:01)
[2023-01-02] MEDS: NITROGLYCERIN OINT 1 INCH/GM PACKET TOPICAL SCH ×5 (01:29→23:01)
[2023-01-02] MEDS: MULTIVITAMINS, THERA 1 EACH TAB PO SCH (09:16)
[2023-01-02] MEDS: PANTOPRAZOLE 40 MG TABLET PO SCH (09:16)
[2023-01-02] MEDS: TAMSULOSIN 0.4 MG CAP.ER.24H PO SCH (09:16)
[2023-01-02] MEDS: LORATADINE 10 MG TAB PO SCH (09:16)
[2023-01-02] MEDS: SENNOSIDES 8.6 MG TAB PO SCH ×2 (09:16→21:31)
[2023-01-02] MEDS: FERROUS SULFATE 325 MG TAB PO SCH ×2 (09:16→21:31)
[2023-01-02] MEDS: METOPROLOL TARTRATE 25 MG TAB PO SCH ×2 (09:16→21:27)
[2023-01-02] MEDS: DIGOXIN 125 MCG TAB PO SCH (09:16)
[2023-01-02] MEDS: ASPIRIN 325 MG TAB PO SCH (09:16)
[2023-01-02] MEDS: methIMAzole 5 MG TAB PO SCH ×3 (09:18→21:32)
[2023-01-02] MEDS: LIDOCAINE TRANSDERM SCH (09:18)
--- NOTE | 2023-01-02 13:03 | P.CONS ---
History of Present Illness - Reason for Consult Consult date: 01/02/23 wound care - History of Present Illness This is a 67-year-old gentleman who is known to the wound care center with stage II pressure ulcers to the right posterior thigh and left buttocks. Patient has multiple open ulcerations with minimal granulation noted to the wound bed with Slough and nonviable tissue no tunneling or undermining no noted. Periwound shows excoriation. Patient's past medical history significant for has medical history significant for diabetes, CVA, left [id number] amputation wheelchair-bound TIAs, COPD, atrial fibrillation. Review Of Systems: Constitutional: No fever, no chills, no night sweats. No weight change. No weakness, fatigue or lethargy. No daytime sleepiness. Integumentary:reports wounds, no lesions. No rash or pruritus. No unusual bruising. No change in hair or nails. Physical exam: General Appearance: Alert, cooperative, no distress, appears stated age. Skin: See HPI all other Skin color, texture, tugor normal, no rashes or lesions. Neurologic: Alert oriented x3 Assessment: 1. Stage II pressure ulcer right posterior thigh 2. Stage II pressor ulcer left buttock 3. Diabetes with skin ulceration Plan: 1. Apply honey gel and duodenum to the site change Monday. Turn patient every 2 hours. Patient would benefit from outpatient wound care we would be happy to see him in the wound care center. Thank for the consultation any questions contact the wound care center DNP note has been reviewed and discussed with Dr. Bates and the impression and plan of care has been directed as dictated. Past Medical History Past Medical History: Atrial Fibrillation, Asthma, COPD, CVA/TIA, Diabetes Mellitus, Deep Vein Thrombosis (DVT), GERD/Reflux, Hyperlipidemia, Hypertension, Neurologic Disorder, Osteoarthritis (OA), Pneumonia, Pulmonary Embolus (PE), Skin Disorder, Vascular Disorder Additional Past Medical History / Comment(s): Pt admitted to [facility] on 11/20/20 with hyperkalemia, hyperglycemia, uncontrolled diabetes. Other hx: Lupus anticoagulant, DVTs bilateral legs, PEs bilateral lungs in , pt has zina filter, L AKA/wheelchair bound, NIDDM type II, neuropathy bilateral hands, wound care patient for buttock wound, now healed, TIAs, pneumothorax, past migraines, chronic low back pain, R leg edema at times, varicosities. History of Any Multi-Drug Resistant Organisms: MRSA Year Discovered:: 11/02/22 MDRO Source:: Blood Past Surgical History: Adenoidectomy, Appendectomy, Tonsillectomy Additional Past Surgical History / Comment(s): [place] filter, stents in vessels "in pelvic area", total L hip arthroplasty, vein strippings, colonoscopy. left leg amputation Past Anesthesia/Blood Transfusion Reactions: No Reported Reaction Additional Past Anesthesia/Blood Transfusion Reaction / Comm: Pt has received blood in past without reaction. Past Psychological History: No Psychological Hx Reported Additional Psychological History / Comment(s): Pt currently living in hotels, He has a glucometer. He has a nebulizer. Pt has prosthetic, states it is being worked on. Smoking Status: Former smoker Past Alcohol Use History: None Reported Additional Past Alcohol Use History / Comment(s): Pt startes smoking in 1969 and is a ppd smoker. Past Drug Use History: None Reported - Past Family History Mother Family Medical History: Coronary Artery Disease (CAD), Myocardial Infarction (AL), Vascular Disorder Additional Family Medical History / Comment(s): heart disease, peripheral vascular disease. Father Family Medical History: Diabetes Mellitus, Renal Disease Medications and Allergies Home Medications Medication Instructions Recorded Confirmed Type Atorvastatin [Lipitor] 80 mg PO HS 08/27/22 12/23/22 History Loratadine 10 mg PO DAILY 08/27/22 12/23/22 History Dabigatran [Pradaxa] 150 mg PO BID@0800,1600 10/28/22 12/23/22 History Ferrous Sulfate [Iron (65 MG 325 mg PO BID 10/28/22 12/23/22 History Elemental)] Omeprazole [PriLOSEC] 20 mg PO DAILY 10/28/22 12/23/22 History Sennosides [Senokot] 8.6 mg PO BID 10/28/22 12/23/22 History Bumetanide [BUMEX] 1 mg PO DAILY@1600 tab 11/09/22 12/23/22 Rx Ipratropium-Albuterol Nebulize 3 ml INHALATION RT-Q6H PRN each 11/09/22 12/23/22 Rx [Duoneb 0.5 mg-3 mg/3 ml Soln] methIMAzole [Tapazole] 5 mg PO TID tab 11/09/22 12/23/22 Rx Acetaminophen Tab [Tylenol] 650 mg PO Q6H PRN 11/20/22 12/23/22 History Multivitamins, Thera [Multivitamin 1 tab PO DAILY@0800 11/20/22 12/23/22 History (formulary)] Nortriptyline HCl 75 mg PO HS 11/20/22 12/23/22 History Digoxin [Lanoxin] 125 mcg PO DAILY tab 11/28/22 12/23/22 Rx HYDROcodone/APAP 7.5-325MG [[place] 1 tab PO Q6HR PRN 12/05/22 12/23/22 History 7.5-325] Insulin Glargine,Hum.rec.anlog 14 units SQ HS 12/05/22 12/23/22 History [Lantus Solostar Pen] Insulin Lispro [humaLOG Kwikpen] See Protocol SQ ACHS@07,11,16,20 12/05/22 12/23/22 History Lidocaine [Aspercreme Patch] 1 patch TRANSDERM DAILY 12/05/22 12/23/22 History Magnesium Hydroxide [Milk of 2,400 mg PO DAILY PRN 12/05/22 12/23/22 History Magnesia] Pregabalin [Lyrica] 300 mg PO BID@0800,1600 12/23/22 12/23/22 History Allergies Allergy/AdvReac Type Severity Reaction Status Date / Time baclofen Allergy Unknown Verified 12/23/22 12:58 Iodinated Contrast Media Allergy Unknown Verified 12/23/22 12:58 sulfamethoxazole Allergy Unknown Verified 12/23/22 12:58 [From Bactrim] trimethoprim [From Bactrim] Allergy Unknown Verified 12/23/22 12:58 apixaban [From Eliquis] AdvReac "felt Verified 12/23/22 12:58 funny" Physical Exam Vitals: Vital Signs Pulse Pulse Resp BP BP Pulse Ox 01/02/23 12:00 77 16 122/68 96 01/02/23 08:00 52 L 16 133/72 97 01/01/23 14:00 16 Intake and Output 01/01/23 01/02/23 01/02/23 22:59 06:59 14:59 Output Total 400 Balance -400 Output: Urine 400 Other: Voiding Method Indwelling Catheter Indwelling Catheter # Bowel Movements 1 Results CBC & Chem 7: 01/01/23 06:50 01/01/23 06:50 Assessment and Plan (1) Stage II pressure ulcer of left buttock Current Visit: Yes Status: Acute Code(s): L89.322 - PRESSURE ULCER OF LEFT BUTTOCK, STAGE 2 SNOMED Code(s): 13739918736890 (2) Pressure injury of right leg, stage 2 Current Visit: Yes Status: Acute Code(s): L89.892 - PRESSURE ULCER OF OTHER SITE, STAGE 2 SNOMED Code(s): 30792633 (3) Type 2 diabetes mellitus with other skin ulcer Current Visit: No Status: Acute Code(s): E11.622 - TYPE 2 DIABETES MELLITUS WITH OTHER SKIN ULCER; L98.499 - NON-PRESSURE CHRONIC ULCER OF SKIN OF SITES W UNSP SEVERITY SNOMED Code(s): 818058519
--- NOTE | 2023-01-02 14:07 | P.PN ---
Subjective Progress Note Date: 01/02/23 CHIEF COMPLAINT: Altered mental status HISTORY OF PRESENT ILLNESS: Patient presented with altered mental status and evidence of UTI and acute kidney injury. Surgical service following in regards to acute on chronic cholecystitis. Patient continues to have poor oral intake. No nausea or vomiting reported. Denies abdominal pain. He is sleeping. Afebrile. WBC 10 LFTs normal Patient seen and examined with Dr. charles PHYSICAL EXAM: VITAL SIGNS: Reviewed. GENERAL: Well-developed in no acute distress. ABDOMEN: Soft. Nondistended. ASSESSMENT: 1. Acute on chronic cholecystitis 2. Metabolic encephalopathy PLAN: -No plans for any surgical intervention -Continue supportive care -Continue antibiotics -Okay to resume Pradaxa from surgical standpoint Physician Emblem Drawer In note has been reviewed by physician. Signing provider agrees with the documented findings, assessment, and plan of care. Objective - Vital Signs Vital signs: Vital Signs Temp 97.4 F L 01/01/23 12:00 Pulse 77 01/02/23 12:00 Resp 16 01/02/23 12:00 BP 122/68 01/02/23 12:00 Pulse Ox 96 01/02/23 12:00 FiO2 21 12/31/22 08:15 Intake & Output 01/01/23 01/02/23 01/02/23 18:59 06:59 18:59 Output Total 400 Balance -400 Weight 72 kg Output: Urine 400 Other: Voiding Method Indwelling Catheter Indwelling Catheter Indwelling Catheter # Bowel Movements 1 - Labs CBC & Chem 7: 01/01/23 06:50 01/01/23 06:50
--- NOTE | 2023-01-02 14:17 | P.PN ---
Subjective Patient is seen for follow-up for acute kidney injury. Renal function has significantly improved. Serum creatinine at 1.0 mg/dL. Patient has an indwelling Gamble catheter for urine retention. Objective - Vital Signs Vital signs: Vital Signs Temp 97.4 F L 01/01/23 12:00 Pulse 77 01/02/23 12:00 Resp 16 01/02/23 12:00 BP 122/68 01/02/23 12:00 Pulse Ox 96 01/02/23 12:00 FiO2 21 12/31/22 08:15 Intake & Output 01/01/23 01/02/23 01/02/23 18:59 06:59 18:59 Output Total 400 Balance -400 Weight 72 kg Output: Urine 400 Other: Voiding Method Indwelling Catheter Indwelling Catheter Indwelling Catheter # Bowel Movements 1 - Exam Awake, comfortable, no acute distress Examination of the heart S1 and S2 Examination the lungs bilateral breath sounds are heard Abdomen is soft nontender Examination lower extremity shows no significant edema - Labs CBC & Chem 7: 01/01/23 06:50 01/01/23 06:50 Assessment and Plan Assessment: 1. Acute kidney injury secondary to urine retention, currently with indwelling Gamble catheter with significantly improved renal function. 2. Mental status changes most likely related to underlying sepsis/UTI 3. A. fib with RVR, heart rate controlled now 4. Hypotension, hypovolemic and from underlying infection 5. Pseudomonas UTI Plan: Continue to encourage increase oral intake Will follow-up when necessary
[2023-01-02] MEDS: HYDROcodone/APAP 7.5-325MG 1 EACH TAB PO PRN (17:48)
[2023-01-02 20:39] LABS: Glucose,Whole Blood 199 mg/dL (70-110)
--- NOTE | 2023-01-02 20:49 | P.PN ---
Subjective Progress Note Date: 12/30/22 Principal diagnosis: Urinary tract infection Patient is a 67-year-old male with the multiple comorbidities including atrial fibrillation also have a history of diabetes mellitus diabetic foot infection, recently completed course of vancomycin for MRSA bacteremia, presented to hospital with tachycardia also noticed to have significantly cloudy urine concerning for UTI did have urinary retention requiring Gamble catheter placement On today's evaluation that is 12/30/2022, patient remains to be afebrile, the patient is breathing comfortably on 2 L oxygen , the patient denies any chest pain shortness of breath or cough no abdominal pain or diarrhea Objective - Vital Signs Vital signs: Vital Signs Temp 98 F 12/30/22 08:00 Pulse 52 L 12/30/22 08:00 Resp 17 12/30/22 08:00 BP 106/73 12/30/22 08:00 Pulse Ox 99 12/30/22 09:11 FiO2 Intake & Output 12/29/22 12/30/22 12/30/22 18:59 06:59 18:59 Intake Total 240 Output Total 200 700 Balance 40 -700 Intake: Oral 240 Output: Urine 200 700 Other: Voiding Method Indwelling Catheter Indwelling Catheter Indwelling Catheter # Bowel Movements 0 - Exam GENERAL DESCRIPTION: An elderly male lying in bed in no distress RESPIRATORY SYSTEM: Unlabored breathing , decreased breath sounds at bases HEART: S1 S2 regular rate and rhythm , ABDOMEN: Soft , no tenderness EXTREMITIES: No edema feet to the right lower extremity - Labs CBC & Chem 7: 01/01/23 06:50 01/01/23 06:50 Labs: Abnormal Lab Results - Last 24 Hours (Table) 12/29/22 Range/Units 20:46 POC Glucose (mg/dL) 182 H (70-110) mg/dL Microbiology - Last 24 Hours (Table) 12/26/22 12:28 Blood Culture - Preliminary Blood 12/26/22 08:25 Blood Culture - Preliminary Blood 12/25/22 21:00 Urine Culture - Final Urine,Voided Pseudomonas aeruginosa Assessment and Plan (1) Urinary tract infection Current Visit: Yes Status: Acute Code(s): N39.0 - URINARY TRACT INFECTION, SITE NOT SPECIFIED SNOMED Code(s): 33326850 Plan: 1patient with significantly positive UA urinary retention mental status changes concerning for possible symptomatic bradycardia likely from enteric gram-negative pathogen 2-patient also have a PICC line that was supposed to be discontinued after completion of antibiotic therapy 3-urine cultures are currently growing pseudomonas aeruginosa that is resistant to Zosyn patient to continue with cefepime and monitor clinical course closely Time with Patient: Less than 30
--- NOTE | 2023-01-02 20:50 | P.PN ---
Subjective Progress Note Date: 12/31/22 Principal diagnosis: Urinary tract infection Patient is a 67-year-old male with the multiple comorbidities including atrial fibrillation also have a history of diabetes mellitus diabetic foot infection, recently completed course of vancomycin for MRSA bacteremia, presented to hospital with tachycardia also noticed to have significantly cloudy urine concerning for UTI did have urinary retention requiring Gamble catheter placement On today's evaluation that is 12/31/2022, patient continues to be afebrile, the patient is breathing comfortably on 2 L oxygen , the patient denies any chest pain shortness of breath and no significant cough no abdominal pain or diarrhea Objective - Vital Signs Vital signs: Vital Signs Temp 97.7 F 12/31/22 09:00 Pulse 65 12/31/22 12:15 Resp 16 12/31/22 12:15 BP 109/66 12/31/22 12:15 Pulse Ox 96 12/31/22 12:15 FiO2 21 12/31/22 08:15 Intake & Output 12/30/22 12/31/22 12/31/22 18:59 06:59 18:59 Output Total 300 700 Balance -300 -700 Weight 72 kg Output: Urine 300 700 Other: Voiding Method Indwelling Catheter Indwelling Catheter # Bowel Movements 0 - Exam GENERAL DESCRIPTION: An elderly male lying in bed in no distress RESPIRATORY SYSTEM: Unlabored breathing , decreased breath sounds at bases HEART: S1 S2 regular rate and rhythm , ABDOMEN: Soft , no tenderness EXTREMITIES: No edema feet to the right lower extremity - Labs CBC & Chem 7: 01/01/23 06:50 01/01/23 06:50 Labs: Abnormal Lab Results - Last 24 Hours (Table) 12/30/22 12/30/22 12/31/22 Range/Units 17:00 20:26 06:10 Chloride (98-107) mmol/L BUN (9-20) mg/dL Glucose (74-99) mg/dL POC Glucose (mg/dL) 154 H 156 H 122 H (70-110) mg/dL 12/31/22 12/31/22 Range/Units 08:21 11:48 Chloride 111 H (98-107) mmol/L BUN 33 H (9-20) mg/dL Glucose 110 H (74-99) mg/dL POC Glucose (mg/dL) 190 H (70-110) mg/dL Assessment and Plan (1) Urinary tract infection Current Visit: Yes Status: Acute Code(s): N39.0 - URINARY TRACT INFECTION, SITE NOT SPECIFIED SNOMED Code(s): 85454275 Plan: 1patient with significantly positive UA urinary retention mental status changes concerning for possible symptomatic bradycardia likely from enteric gram-negative pathogen 2-patient also have a PICC line that was supposed to be discontinued after completion of antibiotic therapy 3-the patient urine cultures did grew pseudomonas aeruginosa that is resistant to Zosyn for which the patient is covered with cefepime to continue Time with Patient: Less than 30
--- NOTE | 2023-01-02 20:52 | P.PN ---
Subjective Progress Note Date: 01/01/23 Principal diagnosis: Urinary tract infection Patient is a 67-year-old male with the multiple comorbidities including atrial fibrillation also have a history of diabetes mellitus diabetic foot infection, recently completed course of vancomycin for MRSA bacteremia, presented to hospital with tachycardia also noticed to have significantly cloudy urine concerning for UTI did have urinary retention requiring Gamble catheter placement On today's evaluation that is 01/01/2023, patient remains to be afebrile, the patient is breathing comfortably on nasal cannula oxygen , the patient denies any chest pain shortness of breath did have occasional dry cough no abdominal pain or diarrhea Objective - Vital Signs Vital signs: Vital Signs Temp 97.4 F L 01/01/23 12:00 Pulse 80 01/01/23 12:00 Resp 16 01/01/23 12:00 BP 117/67 01/01/23 12:00 Pulse Ox 98 01/01/23 12:00 FiO2 21 12/31/22 08:15 Intake & Output 12/31/22 01/01/23 01/01/23 18:59 06:59 18:59 Intake Total 220 Output Total 425 400 Balance -205 -400 Intake: Oral 220 Output: Urine 425 400 Other: Voiding Method Indwelling Catheter Indwelling Catheter Indwelling Catheter - Exam GENERAL DESCRIPTION: An elderly male lying in bed in no distress RESPIRATORY SYSTEM: Unlabored breathing , decreased breath sounds at bases HEART: S1 S2 regular rate and rhythm , ABDOMEN: Soft , no tenderness EXTREMITIES: No edema feet to the right lower extremity - Labs CBC & Chem 7: 01/01/23 06:50 01/01/23 06:50 Labs: Abnormal Lab Results - Last 24 Hours (Table) 12/31/22 12/31/22 01/01/23 Range/Units 16:46 20:24 06:50 RBC 3.77 L (4.30-5.90) m/uL Hgb 11.6 L (13.0-17.5) gm/dL Hct 37.4 L (39.0-53.0) % RDW 16.5 H (11.5-15.5) % Chloride (98-107) mmol/L BUN (9-20) mg/dL Glucose (74-99) mg/dL POC Glucose (mg/dL) 158 H 149 H (70-110) mg/dL Albumin (3.5-5.0) g/dL 01/01/23 01/01/23 Range/Units 06:50 11:45 RBC (4.30-5.90) m/uL Hgb (13.0-17.5) gm/dL Hct (39.0-53.0) % RDW (11.5-15.5) % Chloride 109 H (98-107) mmol/L BUN 28 H (9-20) mg/dL Glucose 120 H (74-99) mg/dL POC Glucose (mg/dL) 125 H (70-110) mg/dL Albumin 2.9 L (3.5-5.0) g/dL Microbiology - Last 24 Hours (Table) 12/26/22 12:28 Blood Culture - Final Blood 12/26/22 08:25 Blood Culture - Final Blood Assessment and Plan (1) Urinary tract infection Current Visit: Yes Status: Acute Code(s): N39.0 - URINARY TRACT INFECTION, SITE NOT SPECIFIED SNOMED Code(s): 80224293 Plan: 1patient with significantly positive UA urinary retention mental status changes concerning for possible symptomatic bradycardia likely from enteric gram-negative pathogen 2-patient also have a PICC line that was supposed to be discontinued after completion of antibiotic therapy 3-the patient urine cultures did grew pseudomonas aeruginosa that is resistant to Zosyn for which the patient is currently being treated with cefepime and monitor clinical course closely Time with Patient: Less than 30
--- NOTE | 2023-01-02 20:53 | P.PN ---
Subjective Progress Note Date: 01/02/23 Principal diagnosis: Urinary tract infection Patient is a 67-year-old male with the multiple comorbidities including atrial fibrillation also have a history of diabetes mellitus diabetic foot infection, recently completed course of vancomycin for MRSA bacteremia, presented to hospital with tachycardia also noticed to have significantly cloudy urine concerning for UTI did have urinary retention requiring Gamble catheter placement On today's evaluation that is 01/02/2023, patient denies any fever, the patient is breathing comfortably on room air , the patient denies any chest pain shortness of breath did have occasional dry cough no abdominal pain or diarrhea has been reported Objective - Vital Signs Vital signs: Vital Signs Temp 97.4 F L 01/01/23 12:00 Pulse 52 L 01/02/23 08:00 Resp 16 01/02/23 08:00 BP 133/72 01/02/23 08:00 Pulse Ox 97 01/02/23 08:00 FiO2 21 12/31/22 08:15 Intake & Output 01/01/23 01/02/23 01/02/23 18:59 06:59 18:59 Output Total 400 Balance -400 Output: Urine 400 Other: Voiding Method Indwelling Catheter Indwelling Catheter Indwelling Catheter # Bowel Movements 1 - Exam GENERAL DESCRIPTION: An elderly male lying in bed in no distress RESPIRATORY SYSTEM: Unlabored breathing , decreased breath sounds at bases HEART: S1 S2 regular rate and rhythm , ABDOMEN: Soft , no tenderness EXTREMITIES: No edema feet to the right lower extremity - Labs CBC & Chem 7: 01/01/23 06:50 01/01/23 06:50 Assessment and Plan (1) Urinary tract infection Current Visit: Yes Status: Acute Code(s): N39.0 - URINARY TRACT INFECTION, SITE NOT SPECIFIED SNOMED Code(s): 35668976 Plan: 1patient with significantly positive UA urinary retention mental status changes concerning for possible symptomatic bradycardia likely from enteric gram-negative pathogen 2-patient also have a PICC line that was supposed to be discontinued after completion of antibiotic therapy 3-the patient urine cultures did grew pseudomonas aeruginosa that is resistant to Zosyn for which the patient is currently being treated with cefepime to continue while inpatient finishing therapy with oral Cipro Time with Patient: Less than 30
[2023-01-02] MEDS: INSULIN DETEMIR (LEVEMIR) 100 UNIT/ML SYR SQ SCH (21:28)
[2023-01-02] MEDS: NORTRIPTYLINE 25 MG CAP PO SCH (21:31)
[2023-01-02] MEDS: DABIGATRAN 150 MG CAP PO SCH (21:31)
[2023-01-02] MEDS: ATORVASTATIN 80 MG TAB PO SCH (21:31)
[2023-01-03] MEDS: NITROGLYCERIN OINT 1 INCH/GM PACKET TOPICAL SCH ×4 (04:53→22:09)
[2023-01-03] MEDS: HYDROcodone/APAP 7.5-325MG 1 EACH TAB PO PRN ×2 (05:58→21:01)
[2023-01-03 06:31] LABS: Glucose,Whole Blood 185 mg/dL (70-110)
[2023-01-03] MEDS: METOPROLOL TARTRATE 25 MG TAB PO SCH ×2 (08:53→21:03)
[2023-01-03] MEDS: SENNOSIDES 8.6 MG TAB PO SCH ×2 (08:53→21:03)
[2023-01-03] MEDS: FERROUS SULFATE 325 MG TAB PO SCH ×2 (08:53→21:03)
[2023-01-03] MEDS: ASPIRIN 325 MG TAB PO SCH (08:53)
[2023-01-03] MEDS: MULTIVITAMINS, THERA 1 EACH TAB PO SCH (08:53)
[2023-01-03] MEDS: TAMSULOSIN 0.4 MG CAP.ER.24H PO SCH (08:53)
[2023-01-03] MEDS: DIGOXIN 125 MCG TAB PO SCH (08:53)
[2023-01-03] MEDS: LORATADINE 10 MG TAB PO SCH (08:53)
[2023-01-03] MEDS: PANTOPRAZOLE 40 MG TABLET PO SCH (08:53)
[2023-01-03] MEDS: CEFEPIME 2 GM in SODIUM CHLORIDE 0.9% 100 ML IVPB SCH ×2 (08:54→10:19)
[2023-01-03] MEDS: DABIGATRAN 150 MG CAP PO SCH ×2 (08:55→21:03)
[2023-01-03] MEDS: LIDOCAINE TRANSDERM SCH (09:01)
[2023-01-03] MEDS: methIMAzole 5 MG TAB PO SCH ×3 (09:04→21:03)
--- NOTE | 2023-01-03 11:27 | P.PN ---
Subjective Progress Note Date: 01/03/23 CHIEF COMPLAINT: Altered mental status HISTORY OF PRESENT ILLNESS: Patient presented with altered mental status and evidence of UTI and acute kidney injury. Surgical service following in regards to acute on chronic cholecystitis. Patient lying in bed comfortably. Denies any abdominal pain. Afebrile. WBC 10 LFTs normal. Pradaxa has been resumed. Patient seen and examined with Dr. charles PHYSICAL EXAM: VITAL SIGNS: Reviewed. GENERAL: Well-developed in no acute distress. ABDOMEN: Soft. Nondistended. ASSESSMENT: 1. Acute on chronic cholecystitis 2. Metabolic encephalopathy PLAN: -No plans for any surgical intervention -Continue supportive care -Continue antibiotics Physician Brick Pitcher note has been reviewed by physician. Signing provider agrees with the documented findings, assessment, and plan of care. Objective - Vital Signs Vital signs: Vital Signs Temp 98.0 F 01/03/23 03:42 Pulse 66 01/03/23 03:42 Resp 16 01/03/23 03:42 BP 130/83 01/03/23 03:42 Pulse Ox 93 L 01/03/23 03:42 FiO2 21 12/31/22 08:15 Intake & Output 01/02/23 01/03/23 01/03/23 18:59 06:59 18:59 Intake Total 118 Output Total 800 Balance -682 Weight 72 kg 70.5 kg Intake: Oral 118 Output: Urine 800 Other: Voiding Method Indwelling Catheter Indwelling Catheter # Bowel Movements 1 - Labs CBC & Chem 7: 01/01/23 06:50 01/01/23 06:50 Labs: Abnormal Lab Results - Last 24 Hours (Table) 01/02/23 01/03/23 Range/Units 20:15 06:30 POC Glucose (mg/dL) 199 H 185 H (70-110) mg/dL
--- NOTE | 2023-01-03 11:46 | P.PN ---
Subjective Patient is seen for follow-up for acute kidney injury. Renal function has significantly improved. Serum creatinine at 1.0 mg/dL. Patient has an indwelling Gamble catheter for urine retention. He has been confused on and off. Objective - Vital Signs Vital signs: Vital Signs Temp 96.3 F L 01/03/23 08:00 Pulse 100 01/03/23 08:00 Resp 20 01/03/23 08:00 BP 135/95 01/03/23 08:00 Pulse Ox 100 01/03/23 08:00 FiO2 21 12/31/22 08:15 Intake & Output 01/02/23 01/03/23 01/03/23 18:59 06:59 18:59 Intake Total 118 0 Output Total 800 Balance -682 0 Weight 72 kg 70.5 kg Intake: Oral 118 0 Output: Urine 800 Other: Voiding Method Indwelling Catheter Indwelling Catheter # Bowel Movements 1 - Exam Awake, comfortable, no acute distress Examination of the heart S1 and S2 Examination the lungs bilateral breath sounds are heard Abdomen is soft nontender Examination lower extremity shows no significant edema - Labs CBC & Chem 7: 01/01/23 06:50 01/01/23 06:50 Labs: Abnormal Lab Results - Last 24 Hours (Table) 01/02/23 01/03/23 Range/Units 20:15 06:30 POC Glucose (mg/dL) 199 H 185 H (70-110) mg/dL Assessment and Plan Assessment: 1. Acute kidney injury secondary to urine retention, currently with indwelling Gamble catheter with significantly improved renal function. 2. Mental status changes most likely related to underlying sepsis/UTI 3. A. fib with RVR, heart rate controlled now 4. Hypotension, hypovolemic and from underlying infection 5. Pseudomonas UTI maintained on IV antibiotics Plan: Continue to encourage increase oral intake Check labs today Continue with Gamble catheter
[2023-01-03 11:49] LABS: Glucose,Whole Blood 188 mg/dL (70-110)
--- NOTE | 2023-01-03 12:11 | P.PN ---
Subjective Progress Note Date: 01/03/23 Principal diagnosis: Urinary tract infection Patient is a 67-year-old male with the multiple comorbidities including atrial fibrillation also have a history of diabetes mellitus diabetic foot infection, recently completed course of vancomycin for MRSA bacteremia, presented to hospital with tachycardia also noticed to have significantly cloudy urine concerning for UTI did have urinary retention requiring Gamble catheter placement On today's evaluation that is 01/03/2023, patient remains to be febrile, the patient is breathing comfortably on room air , the patient denies any chest pain shortness of breath did have occasional dry cough no abdominal pain or diarrhea has been reported, nursing staff did mention patient has been pulling out his IV and it is hard to keep an IV Objective - Vital Signs Vital signs: Vital Signs Temp 96.3 F L 01/03/23 08:00 Pulse 100 01/03/23 08:00 Resp 20 01/03/23 08:00 BP 135/95 01/03/23 08:00 Pulse Ox 100 01/03/23 08:00 FiO2 21 12/31/22 08:15 Intake & Output 01/02/23 01/03/23 01/03/23 18:59 06:59 18:59 Intake Total 118 0 Output Total 800 Balance -682 0 Weight 72 kg 70.5 kg Intake: Oral 118 0 Output: Urine 800 Other: Voiding Method Indwelling Catheter Indwelling Catheter # Bowel Movements 1 - Exam GENERAL DESCRIPTION: An elderly male lying in bed in no distress RESPIRATORY SYSTEM: Unlabored breathing , decreased breath sounds at bases HEART: S1 S2 regular rate and rhythm , ABDOMEN: Soft , no tenderness EXTREMITIES: No edema feet to the right lower extremity - Labs CBC & Chem 7: 01/01/23 06:50 01/01/23 06:50 Labs: Abnormal Lab Results - Last 24 Hours (Table) 01/02/23 01/03/23 01/03/23 Range/Units 20:15 06:30 11:32 POC Glucose (mg/dL) 199 H 185 H 188 H (70-110) mg/dL Assessment and Plan (1) Urinary tract infection Current Visit: Yes Status: Acute Code(s): N39.0 - URINARY TRACT INFECTION, SITE NOT SPECIFIED SNOMED Code(s): 01901199 Plan: 1patient with significantly positive UA urinary retention mental status changes concerning for possible symptomatic bradycardia likely from enteric gram-negative pathogen 2-patient also have a PICC line that was supposed to be discontinued after completion of antibiotic therapy 3-the patient urine cultures did grew pseudomonas aeruginosa that is resistant to Zosyn for which the patient is currently being treated with cefepime, however keeping in mind the patient has been pulling out his IV we will switch him over to oral Cipro Time with Patient: Less than 30
--- NOTE | 2023-01-03 14:09 | PN ---
PROGRESS NOTE SUBJECTIVE: This is a 67-year-old white male, he has been more confused. They want a PICC line due to some sacral ulcers and malnutrition. He is not eating enough of his food. Talked to the nurse, he is very picky eater, but sometimes eats, sometimes he does not. Possibly a PEG tube versus Dobhoff, discussed with dietitian. Wound care has been done with Dr. Tiago Hernandez's recommendations. OBJECTIVE: CARDIOVASCULAR: S1, S2. PSYCH: Pleasantly confused. LUNGS: Clear. GI: Soft. HEMATOLOGY: Negative for Homans. EXTREMITIES: Right leg AKA, left leg. ASSESSMENT: Chest pain, atrial fibrillation with RVR, COPD, malnutrition, sacral ulcers, pulmonary hypertension, severe COPD, oxygen dependent. Continue current treatment, wound care, IV antibiotics. Wait for Dr. Ordoñez's recommendations for atrial fibrillation, Cardiology recommendations. Possibly PEG tube or Dobhoff tube. Please see further orders. MMODL / IJN: [id number] /
[2023-01-03] MEDS ORDERED: DEXTROSE 50% SYRINGE 50 ML IVP PRN ×2 (16:16)
[2023-01-03 16:54] LABS: Glucose,Whole Blood 124 mg/dL (70-110)
[2023-01-03] MEDS: INSULIN ASPART (NovoLOG) 100 UNIT/ML VIAL SQ SCH ×2 (17:17→20:27)
[2023-01-03 20:04] LABS: Glucose,Whole Blood 147 mg/dL (70-110)
[2023-01-03] MEDS: MEGESTROL 40 MG TAB PO SCH (21:02)
[2023-01-03] MEDS: INSULIN DETEMIR (LEVEMIR) 100 UNIT/ML SYR SQ SCH (21:03)
[2023-01-03] MEDS: CIPROFLOXACIN HCL 500 MG TAB PO SCH (21:03)
[2023-01-03] MEDS: ATORVASTATIN 80 MG TAB PO SCH (21:03)
[2023-01-03] MEDS: NORTRIPTYLINE 25 MG CAP PO SCH (21:03)
--- NOTE | 2023-01-03 21:50 | PN ---
PROGRESS NOTE SUBJECTIVE: A 67-year-old white male, he is refusing a PEG tube. He has sacral ulcer stage II. Dr. Ordoñez has seen him for this. We are also going to give him Megace to improve his appetite. Some days, he eats 100%, some days 50% of his food. He is on protein supplements. We are going to order Megace 80 mg daily today. His diabetes has been under better control. OBJECTIVE: GENERAL: He is alert, giving appropriate answers. VITAL SIGNS: Temperature 96, blood pressure 160/59, oxygen saturation 99% on room air, pulse is 81, respiratory rate 18 to 20. Sugars have been in the mid 100s. ASSESSMENT: Altered mental status, chronic obstructive pulmonary disease, congestive heart failure, sacral ulcerations. Dr. Ordoñez is reviewing. Broad-spectrum antibiotics will be continued to rule out urinary tract infection. Continue with current treatments, PT, OT. Prognosis guarded. MMODL / IJN: [id number] /
[2023-01-04] MEDS: NITROGLYCERIN OINT 1 INCH/GM PACKET TOPICAL SCH ×4 (03:11→23:39)
[2023-01-04] MEDS: HYDROcodone/APAP 7.5-325MG 1 EACH TAB PO PRN ×3 (03:14→20:12)
[2023-01-04 06:07] LABS: Glucose,Whole Blood 92 mg/dL (70-110)
[2023-01-04] MEDS: INSULIN ASPART (NovoLOG) 100 UNIT/ML VIAL SQ SCH ×4 (06:07→20:16)
[2023-01-04 07:40] LABS: Anisocytosis Slight; Basophils % (A) 0 %; Eosinophils # (A) 0.2 k/uL (0-0.7); Eosinophils % (A) 2 %; HCT 37.4 % (39.0-53.0); HGB 11.8 gm/dL (13.0-17.5); Hypochromasia Slight; Lymphocytes # (A) 1.9 k/uL (1.0-4.8); Lymphocytes % (A) 19 %; MCH 30.3 pg (25.0-35.0); MCHC 31.6 g/dL (31.0-37.0); MCV 95.6 fL (80.0-100.0); Mean Platelet Volume 8.3; Monocytes # (A) 0.5 k/uL (0-1.0); Monocytes % (A) 5 %; Neutrophils # (A) 7.2 k/uL (1.3-7.7); Neutrophils % (A) 72 %; Platelet Count 304 k/uL (150-450); RBC 3.91 m/uL (4.30-5.90); RDW 16.5 % (11.5-15.5); WBC 10.1 k/uL (3.8-10.6)
[2023-01-04 08:17] LABS: ALT 14 U/L (4-49); AST 17 U/L (17-59); African American GFR (CKD) >90 (>60 ml/min/1.73 sqM); Albumin 2.7 g/dL (3.5-5.0); Alkaline Phosphatase 99 U/L (38-126); Anion Gap 6 mmol/L; Blood Urea Nitrogen 22 mg/dL (9-20); Calcium 8.2 mg/dL (8.4-10.2); Carbon Dioxide 25 mmol/L (22-30); Chloride 108 mmol/L (98-107); Glucose 91 mg/dL (74-99); Non-African American GFR(CKD) >90 (>60 ml/min/1.73 sqM); Potassium 3.8 mmol/L (3.5-5.1); Sodium 139 mmol/L (137-145); Total Bilirubin 0.5 mg/dL (0.2-1.3); Total Protein 6.4 g/dL (6.3-8.2)
[2023-01-04] MEDS: SENNOSIDES 8.6 MG TAB PO SCH ×2 (09:23→20:12)
[2023-01-04] MEDS: ASPIRIN 325 MG TAB PO SCH (09:23)
[2023-01-04] MEDS: DIGOXIN 125 MCG TAB PO SCH (09:23)
[2023-01-04] MEDS: TAMSULOSIN 0.4 MG CAP.ER.24H PO SCH (09:24)
[2023-01-04] MEDS: CIPROFLOXACIN HCL 500 MG TAB PO SCH ×2 (09:24→20:12)
[2023-01-04] MEDS: LORATADINE 10 MG TAB PO SCH (09:24)
[2023-01-04] MEDS: PANTOPRAZOLE 40 MG TABLET PO SCH (09:24)
[2023-01-04] MEDS: METOPROLOL TARTRATE 25 MG TAB PO SCH ×2 (09:24→20:12)
[2023-01-04] MEDS: FERROUS SULFATE 325 MG TAB PO SCH ×2 (09:24→20:12)
[2023-01-04] MEDS: MULTIVITAMINS, THERA 1 EACH TAB PO SCH (09:24)
[2023-01-04 11:26] LABS: Glucose,Whole Blood 112 mg/dL (70-110)
[2023-01-04] MEDS: LIDOCAINE TRANSDERM SCH (12:43)
[2023-01-04] MEDS: MEGESTROL 40 MG TAB PO SCH (12:45)
[2023-01-04] MEDS: DABIGATRAN 150 MG CAP PO SCH ×2 (12:46→20:12)
[2023-01-04] MEDS: methIMAzole 5 MG TAB PO SCH ×3 (12:47→20:12)
--- NOTE | 2023-01-04 14:05 | PN ---
PROGRESS NOTE Sepsis secondary to UTI. MMODL / IJN: [id number] /
--- NOTE | 2023-01-04 15:46 | P.PN ---
Subjective Progress Note Date: 01/04/23 CHIEF COMPLAINT: Altered mental status HISTORY OF PRESENT ILLNESS: Patient presented with altered mental status and evidence of UTI and acute kidney injury. Surgical service following in regards to acute on chronic cholecystitis. Patient lying in bed comfortably. Denies any abdominal pain. Afebrile. WBC 10 LFTs normal. Patient seen and examined with Dr. charles PHYSICAL EXAM: VITAL SIGNS: Reviewed. GENERAL: Well-developed in no acute distress. ABDOMEN: Soft. Nondistended. ASSESSMENT: 1. Acute on chronic cholecystitis 2. Metabolic encephalopathy PLAN: -No plans for any surgical intervention -Continue supportive care -Continue antibiotics Physician Checkering Machine Adjuster note has been reviewed by physician. Signing provider agrees with the documented findings, assessment, and plan of care. Objective - Vital Signs Vital signs: Vital Signs Temp 97.7 F 01/04/23 03:26 Pulse 83 01/04/23 12:00 Resp 16 01/04/23 12:00 BP 114/65 01/04/23 12:00 Pulse Ox 99 01/04/23 12:00 FiO2 21 12/31/22 08:15 Intake & Output 01/03/23 01/04/23 01/04/23 18:59 06:59 18:59 Intake Total 300 110 Output Total 300 900 Balance 0 -900 110 Intake: Intake, IV Titration 100 Amount Cefepime 2 gm In Sodium 100 Chloride 0.9% 100 ml @ 25 mls/hr IVPB Q8HR [facility] Rx# :[id number] Oral 200 110 Output: Urine 300 900 Other: Voiding Method Indwelling Catheter Indwelling Catheter Indwelling Catheter # Bowel Movements 1 1 - Labs CBC & Chem 7: 01/04/23 07:11 01/04/23 07:11 Labs: Abnormal Lab Results - Last 24 Hours (Table) 01/03/23 01/03/23 01/04/23 Range/Units 16:43 20:03 07:11 RBC (4.30-5.90) m/uL Hgb (13.0-17.5) gm/dL Hct (39.0-53.0) % RDW (11.5-15.5) % Chloride (98-107) mmol/L BUN (9-20) mg/dL POC Glucose (mg/dL) 124 H 147 H (70-110) mg/dL Hemoglobin A1c 7.1 H (<=6.0) % Calcium (8.4-10.2) mg/dL Albumin (3.5-5.0) g/dL 01/04/23 01/04/23 01/04/23 Range/Units 07:11 07:11 11:22 RBC 3.91 L (4.30-5.90) m/uL Hgb 11.8 L (13.0-17.5) gm/dL Hct 37.4 L (39.0-53.0) % RDW 16.5 H (11.5-15.5) % Chloride 108 H (98-107) mmol/L BUN 22 H (9-20) mg/dL POC Glucose (mg/dL) 112 H (70-110) mg/dL Hemoglobin A1c (<=6.0) % Calcium 8.2 L (8.4-10.2) mg/dL Albumin 2.7 L (3.5-5.0) g/dL
[2023-01-04 16:10] LABS: Glucose,Whole Blood 164 mg/dL (70-110)
[2023-01-04 19:54] LABS: Glucose,Whole Blood 179 mg/dL (70-110)
[2023-01-04] MEDS: ATORVASTATIN 80 MG TAB PO SCH (20:12)
[2023-01-04] MEDS: INSULIN DETEMIR (LEVEMIR) 100 UNIT/ML SYR SQ SCH (20:13)
[2023-01-04] MEDS: NORTRIPTYLINE 25 MG CAP PO SCH (21:40)
--- NOTE | 2023-01-04 22:36 | DS ---
DISCHARGE SUMMARY DISCHARGE MEDICINES: 1. Aspirin 325 daily. 2. Nitroglycerin sublingual p.r.n. 3. Cipro 500 b.i.d. for 7 days. 4. Flomax 0.4 mg daily. 5. Lopressor 25 b.i.d. 6. Megace 80 mg daily. 7. Imdur 30 mg daily. 8. Loratadine 10 mg daily. 9. Atorvastatin 80 mg daily. 10.Senokot 8.6 b.i.d. 11.Pradaxa 150 b.i.d. 12.Tapazole 5 t.i.d. 13.Nortriptyline 75 at night. 14.Lantus 14 units subcu daily. 15.Prilosec 20 mg daily. 16.Ferrous sulfate 325 daily. 17.DuoNeb updrafts q.i.d. 18.Lanoxin 125 mcg daily. 19.Oakley 7.5 every 6 hours p.r.n. 20.Humalog Quick Pen a.c. h.s. 21.Lidocaine patch topically daily. 22.Milk of magnesia 2400 mg p.r.n. for constipation. 23.Bumex has been on hold. 24.Tapazole 5 mg t.i.d. 25.Acetaminophen 650 q.6h. 26.DuoNeb updrafts q.i.d. 27.Prilosec 20 mg b.i.d. 28.Ferrous sulfate 325 daily. 29.Pradaxa 150 b.i.d. 30.Loratadine 10 daily. 31.Lipitor 80 daily. 32.Bumex 1 mg daily. CONDITION: Stable. PROGNOSIS: Guarded. Ambulate as tolerated. Sacral ulcers, he is going to have Medihoney placed on his wound ulcers daily to sacral ulcers, he needs all today but every 2 hours. He needs to be on 2 L oxygen all time 12 p.m. a day. Diet, protein supplements 3 times a day with his regular meals. Condition stable. Prognosis guarded. He is admitted with altered mental status. He is dehydrated, COPD exacerbation, atypical chest pain, UTI with urosepsis. He was treated with antibiotics, was sent home on Cipro for another 7 days with a repeat urinalysis, urine culture about 7-10 days after antibiotics were done. Please see further orders. Follow up with Dr. Bhakta at the custodial. Megace has been given for appetite stimulation. His poor diet is a bit poor, please see further orders. MMODL / IJN: [id number] /
[2023-01-04 23:54] VITALS: RESP 18
[2023-01-05] MEDS: NITROGLYCERIN OINT 1 INCH/GM PACKET TOPICAL SCH ×2 (05:20→11:59)
[2023-01-05 06:04] LABS: Glucose,Whole Blood 109 mg/dL (70-110)
[2023-01-05] MEDS: INSULIN ASPART (NovoLOG) 100 UNIT/ML VIAL SQ SCH ×2 (06:17→12:01)
[2023-01-05] MEDS ORDERED: ISOSORBIDE MONONITRATE ER 30 MG TAB.ER.24H PO SCH (09:00)
[2023-01-05] MEDS: CIPROFLOXACIN HCL 500 MG TAB PO SCH (09:40)
[2023-01-05] MEDS: DIGOXIN 125 MCG TAB PO SCH (09:40)
[2023-01-05] MEDS: TAMSULOSIN 0.4 MG CAP.ER.24H PO SCH (09:40)
[2023-01-05] MEDS: MEGESTROL 40 MG TAB PO SCH (09:40)
[2023-01-05] MEDS: PANTOPRAZOLE 40 MG TABLET PO SCH (09:40)
[2023-01-05] MEDS: FERROUS SULFATE 325 MG TAB PO SCH (09:40)
[2023-01-05] MEDS: ASPIRIN 325 MG TAB PO SCH (09:41)
[2023-01-05] MEDS: methIMAzole 5 MG TAB PO SCH (09:41)
[2023-01-05] MEDS: MULTIVITAMINS, THERA 1 EACH TAB PO SCH (09:41)
[2023-01-05] MEDS: METOPROLOL TARTRATE 25 MG TAB PO SCH (09:41)
[2023-01-05] MEDS: DABIGATRAN 150 MG CAP PO SCH (09:41)
[2023-01-05] MEDS: SENNOSIDES 8.6 MG TAB PO SCH (09:42)
[2023-01-05] MEDS: LIDOCAINE TRANSDERM SCH (09:42)
[2023-01-05] MEDS: LORATADINE 10 MG TAB PO SCH (09:42)
[2023-01-05] MEDS: HYDROcodone/APAP 7.5-325MG 1 EACH TAB PO PRN (09:42)
[2023-01-05 11:24] LABS: Glucose,Whole Blood 159 mg/dL (70-110)
[2023-01-05 11:45] VITALS: BMI 19.4
[2023-01-05 11:52] VITALS: TEMP 98.2
[2023-01-05 11:58] VITALS: BP 118/61; PULSE 53
--- NOTE | 2023-01-05 13:14 | P.PN ---
Subjective Progress Note Date: 01/05/23 CHIEF COMPLAINT: Altered mental status HISTORY OF PRESENT ILLNESS: Patient presented with altered mental status and evidence of UTI and acute kidney injury. Surgical service following in regards to acute on chronic cholecystitis. Patient lying in bed comfortably. Denies any abdominal pain. Afebrile. Per nursing staff patient is eating. Afebrile. Patient seen and examined with Dr. charles PHYSICAL EXAM: VITAL SIGNS: Reviewed. GENERAL: Well-developed in no acute distress. ABDOMEN: Soft. Nondistended. ASSESSMENT: 1. Acute on chronic cholecystitis 2. Metabolic encephalopathy PLAN: -No plans for any surgical intervention -Continue supportive care -Continue antibiotics -Patient can be discharged from surgical standpoint Physician Timber Watchman note has been reviewed by physician. Signing provider agrees with the documented findings, assessment, and plan of care. Objective - Vital Signs Vital signs: Vital Signs Temp 97.7 F 01/05/23 04:00 Pulse 61 01/05/23 04:00 Resp 18 01/05/23 04:00 BP 107/72 01/05/23 04:00 Pulse Ox 96 01/05/23 08:01 FiO2 21 12/31/22 08:15 Intake & Output 01/04/23 01/05/23 01/05/23 18:59 06:59 18:59 Intake Total 220 Output Total 375 Balance 220 -375 Intake: Oral 220 Output: Urine 375 Other: Voiding Method Indwelling Catheter Indwelling Catheter - Labs CBC & Chem 7: 01/04/23 07:11 01/04/23 07:11 Labs: Abnormal Lab Results - Last 24 Hours (Table) 01/04/23 01/04/23 01/04/23 Range/Units 11:22 16:08 19:52 POC Glucose (mg/dL) 112 H 164 H 179 H (70-110) mg/dL
--- NOTE | 2023-01-06 16:36 | CDI ---
Documentation Clarification Form Date: 01/06/2023 From: Enid Mederos RN, CCDS Admit Date: 12/23/2022 01:45:00 PM Patient Name: Checo Quijano Visit Number: [id number] Discharge Date: 01/05/2023 01:08:00 PM ATTENTION: The Clinical Documentation Specialists (CDI) and [facility] Coding Staff appreciate your assistance in clarifying documentation. Please respond to the clarification below the line at the bottom and electronically sign. The CDI & [facility] Coding staff will review the response and follow-up if needed. Please note: Queries are made part of the Legal Health Record. If you have any questions, please contact the author of this message via ITS. Dr. Quintin Bhakta Malnutrition is documented in the progress notes on 01/03/2023. Additional clarification regarding the severity of malnutrition is requested. 01/02 Nutritional Diagnosis: Severe, acute malnutrition History/Risk Factors: Atrial Fibrillation, COPD, CVA, Diabetes Mellitus, DVT, Hyperlipidemia, Clinical Indicators: 67-year-old male present with tachycardia ruled in for atrial fibrillation. He complains of chronic back and chest pain. 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 Intake only 58% of estimated needs for 3 days. Treatment: Bam BID, Ensure BID Assist with meals and set-up Monitor PO/supplement intake Consistent CHO diet + nutrition supplement Please clarify the type of malnutrition, if known: [ ] Mild Protein-Calorie Malnutrition [ ] Moderate Protein-Calorie Malnutrition [ ] Severe Protein-Calorie Malnutrition [ ] Other condition, please specify [ ] Unable to Determine (Template Last Revised: September 2020) MTDD
--- NOTE | 2023-01-09 18:56 | CDI ---
Documentation Clarification Form Date: 01/09/2023 06:07:02 PM From: Rachael Earl Phone: Admit Date: 12/23/2022 01:45:00 PM Patient Name: Checo Quijano Visit Number: [id number] Discharge Date: 01/05/2023 01:08:00 PM ATTENTION: The Clinical Documentation Specialists (CDI) and [facility] Coding Staff appreciate your assistance in clarifying documentation. Please respond to the clarification below the line at the bottom and electronically sign. The CDI & [facility] Coding staff will review the response and follow-up if needed. Please note: Queries are made part of the Legal Health Record. If you have any questions, please contact the author of this message via ITS. Dr. Quintin Bhakta Unspecified CKD is documented 12/23/22. Additional clarification regarding the stage of CKD is requested. History/Risk Factors: 67yo, M sepsis, acute on chronic cholecystitis, metabolic enceph, ANDERSON, UTI, AFib, Pyonephrosis, Cardiomyopathy, DMII w CKD, PHTN, HLD, COLE, HTN, dehydration, hypovolemia, RBBB, urine retention Non- GFR: 12/23 33 12/25 27 12/26 27 12/27 32 01/01 77 01/04 >90 GFR: 12/23 38 12/25 31 12/26 31 12/27 38 01/01 89 01/04 >90 Blood Urea Nitrogen: 12/23 59 12/25 70 12/26 80 12/27 69 01/01 28 01/04 22 Creatinine: 12/23 2.05 12/25 2.43 12/26 2.44 12/27 2.08 01/01 1.02 01/04 0.76 Treatment: Prognosis is guarded. Follow upin next 24 to 48 hours. Diabetes mellitus, controlled. Accu-Chek protocol. Consults: Acute kidney injuryrule outobstructive uropathyandurine retention. Check bladder scan. Continue with IV fluids. Check urineanalysis Checkultrasoundof the kidneys. Hold diuretics for now. Please clarify the stage of the CKD, if known: [ ] CKD Stage 1 (GFR > 90) [ ] CKD Stage 2 (GFR 60-89) [ ] CKD Stage 3a (GFR 45-59) [ ] CKD Stage 3b (GFR 30-44) [ ] CKD Stage 4 (GFR 15-29) [ ] Other, please specify [ ] Unable to determine (Template Last revised: August 2020) MTDD
--- NOTE | 2023-01-11 08:31 | CDI ---
Documentation Clarification Form Date: 01/06/2023 04:36:00 PM From: Enid Mederos RN,CCDS Phone: [phone] Admit Date: 12/23/2022 01:45:00 PM Patient Name: Checo Quijano Visit Number: [id number] Discharge Date: 01/05/2023 01:08:00 PM ATTENTION: The Clinical Documentation Specialists (CDI) and [facility] Coding Staff appreciate your assistance in clarifying documentation. Please respond to the clarification below the line at the bottom and electronically sign. The CDI & [facility] Coding staff will review the response and follow-up if needed. Please note: Queries are made part of the Legal Health Record. If you have any questions, please contact the author of this message via ITS. Dr. Quintin Bhakta Malnutrition is documented in the progress notes on 01/03/2023. Additional clarification regarding the severity of malnutrition is requested. 01/02 Nutritional Diagnosis: Severe, acute malnutrition History/Risk Factors: Atrial Fibrillation, COPD, CVA, Diabetes Mellitus, DVT, Hyperlipidemia, Clinical Indicators: 67-year-old male present with tachycardia ruled in for atrial fibrillation. He complains of chronic back and chest pain. 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 Intake only 58% of estimated needs for 3 days. Treatment: Bam BID, Ensure BID Assist with meals and set-up Monitor PO/supplement intake Consistent CHO diet + nutrition supplement Please clarify the type of malnutrition, if known: [ ] Mild Protein-Calorie Malnutrition [ ] Moderate Protein-Calorie Malnutrition [ ] Severe Protein-Calorie Malnutrition [ ] Other condition, please specify [ ] Unable to Determine (Template Last Revised: September 2020) MTDD
--- NOTE | 2023-01-11 14:33 | PN ---
PROGRESS NOTE ADDENDUM: Moderate protein-calorie malnutrition. MMODL / IJN: [id number] /
== END 2023-01-05 13:08 | disposition home or self-care (01) | DRG 871 ==
LOC: EC 09:55 → 3SCARD 13:45
PROVIDERS: ADMIT Family Medicine; ATTEND Family Medicine
DX: A41.52 Sepsis due to Pseudomonas (principal); G93.41 Metabolic encephalopathy; I21.A1 Myocardial infarction type 2; N17.0 Acute kidney failure with tubular necrosis; J96.21 Acute and chronic respiratory failure with hypoxia; K82.1 Hydrops of gallbladder; D68.62 Lupus anticoagulant syndrome; I13.0 Hypertensive heart and chronic kidney disease with heart failure and stage 1 through stage 4 chronic kidney disease, or unspecified chronic kidney disease; I42.9 Cardiomyopathy, unspecified; J44.1 Chronic obstructive pulmonary disease with (acute) exacerbation; I48.21 Permanent atrial fibrillation; K81.2 Acute cholecystitis with chronic cholecystitis; I50.42 Chronic combined systolic (congestive) and diastolic (congestive) heart failure; N13.6 Pyonephrosis; Z16.24 Resistance to multiple antibiotics; E46 Unspecified protein-calorie malnutrition; L89.42 Pressure ulcer of contiguous site of back, buttock and hip, stage 2; I27.20 Pulmonary hypertension, unspecified; L89.152 Pressure ulcer of sacral region, stage 2; L89.322 Pressure ulcer of left buttock, stage 2; L89.892 Pressure ulcer of other site, stage 2; E11.42 Type 2 diabetes mellitus with diabetic polyneuropathy; E11.22 Type 2 diabetes mellitus with diabetic chronic kidney disease; Z99.81 Dependence on supplemental oxygen; Z79.4 Long term (current) use of insulin; R65.20 Severe sepsis without septic shock; E11.628 Type 2 diabetes mellitus with other skin complications; Z89.612 Acquired absence of left leg above knee; E11.622 Type 2 diabetes mellitus with other skin ulcer; R25.1 Tremor, unspecified; E78.5 Hyperlipidemia, unspecified; M19.90 Unspecified osteoarthritis, unspecified site; E87.5 Hyperkalemia; I45.10 Unspecified right bundle-branch block; G89.29 Other chronic pain; E86.0 Dehydration; R07.89 Other chest pain; B96.5 Pseudomonas (aeruginosa) (mallei) (pseudomallei) as the cause of diseases classified elsewhere; R63.39 Other feeding difficulties; E86.1 Hypovolemia; E11.65 Type 2 diabetes mellitus with hyperglycemia; Z96.642 Presence of left artificial hip joint; Z95.820 Peripheral vascular angioplasty status with implants and grafts; Z95.828 Presence of other vascular implants and grafts; Z87.891 Personal history of nicotine dependence; Z86.14 Personal history of Methicillin resistant Staphylococcus aureus infection; Z99.3 Dependence on wheelchair; Z86.73 Personal history of transient ischemic attack (TIA), and cerebral infarction without residual deficits; Z86.711 Personal history of pulmonary embolism; Z86.718 Personal history of other venous thrombosis and embolism; Z88.1 Allergy status to other antibiotic agents; Z91.041 Radiographic dye allergy status; Z88.8 Allergy status to other drugs, medicaments and biological substances; Z79.899 Other long term (current) drug therapy; Z79.01 Long term (current) use of anticoagulants; Z82.49 Family history of ischemic heart disease and other diseases of the circulatory system
CPT/HCPCS: 36415; 36600; 70450; 71045; 71046; 71250; 76770; 80048; 80053; 80061; 81001; 82140; 82607; 82746; 82805; 83036; 83605; 83735; 83880; 84145; 84484; 85025; 85027; 85379; 85610; 85730; 87040; 87077; 87086; 87186; 93005; 94760; 95816; 96365; 96366; 99291